=== PATIENT | female | born 1950 | race Caucasian/White ===

== ENCOUNTER → 2019-06-29 07:54 | Outpatient (BNVA) | payer MEDICARE, BC, SELFPAY | PROVIDERS: Family Provider Registered Nurse; PCP Registered Nurse; Visit Provider Anesthesiology | DX: M54.2 Cervicalgia (principal); M25.512 Pain in left shoulder; M54.5 Low back pain; Z79.891 Long term (current) use of opiate analgesic | CPT/HCPCS: 99214 ==

== ENCOUNTER 2019-09-07 22:53 | Observation (INO) | payer MEDICARE, BC, SELFPAY ==
[2019-09-07 22:53] VITALS: BP 133/79; PULSE 96; RESP 24; TEMP 36.7; O2SAT 99; BMI 32.5
--- NOTE | 2019-09-07 23:00 | XR_ITS ---
WS: [id number] CHEST XRAY TECHNIQUE: Portable chest. CLINICAL INFORMATION: cough COMPARISON: January 25, 2016 FINDINGS: Heart: Normal cardiac silhouette. Lungs: Mild chronic emphysematous changes. No acute pulmonary infiltrates. No consolidation or pleura l effusion. Bones: Normal visualized bony structures. XR/XR chest 1V portable [id number] IMPRESSION: No acute chest findings
--- NOTE | 2019-09-07 23:03 | CTR_ITS ---
PROCEDURE INFORMATION: Exam: CT Abdomen And Pelvis With Contrast Exam date and time: 09/07/2019 11:10 PM Age: 69 years old Clinical indication: Abdominal pain; Generalized; Chest pain; Prior surgery; Surgery type: Cholecystectomy TECHNIQUE: Imaging protocol: Computed tomography of the abdomen and pelvis with intravenous contrast. COMPARISON: CR Hip 2-3v LEFT wwo Pelv* [id number] 10/07/2015 9:00 PM FINDINGS: Liver: No enhancing liver mass. Gallbladder and bile ducts: Cholecystectomy. Mild biliary ductal dilatation. Pancreas: No apparent pancreatic disease. Spleen: No splenomegaly. Adrenals: No adrenal mass. Kidneys and ureters: Unremarkable kidneys. Stomach and bowel: Marked sigmoid diverticulosis. No apparent obstruction. Appendix: Normal appendix. Intraperitoneal space: No free air. Vasculature: 1 cm ring calcification along the medial margin of the spleen consistent with a splenic artery aneurysm. No abdominal aortic aneurysm. Lymph nodes: No enlarged nodes. Bladder: Evidence of prior bladder sling surgery. Reproductive: Hysterectomy. Bones/joints: Old compression fractures. Degeneration of several discs. Slight spondylolisthesis at L4-L5. Small residual disc at S1-2. Soft tissues: Developing left inguinal and periumbilical hernias. CT/CT chest abd pel w con* IMPRESSION: No acute findings. Chronic abnormalities detailed above. Radiation Dose CTDIVOL = (mGy): DLP = 2433.3 (mGy-cm)
[2019-09-07 23:10] VITALS: RESP 18; O2SAT 100
[2019-09-07] MEDS: HYDROmorphone 1 mg/mL INJ 1 mL IVP (23:10)
[2019-09-07] MEDS: sodium chloride 0.9% 1,000 ML 100 ML IV (23:15)
[2019-09-07] MEDS: sodium chloride 0.9% 1,000 ML 999 ML IV (23:15)
[2019-09-07 23:25] LABS: Basophils % 0.4 %; Eosinophils % 0.2 %; Hemoglobin 15.2 g/dL (11.5-15.3); Lymphocytes # 1.9 10^3/uL (0.8-4.8); Lymphocytes % 17.8 %; Mean Corpuscular Hemoglobin 28.7 pg (28.0-34.0); Mean Corpuscular Volume 86.8 fL (81-99); Monocytes # 0.6 10^3/uL (0.2-0.9); Monocytes % 5.6 %; Neutrophils # 8.3 10^3/uL (1.8-7.7); Neutrophils % 75.6 %; Nucleated Red Blood Cells % 0 %; Platelet Count 386 10^3/cmm (130-400); Red Cell Distribution Width 12.9 % (12.1-15.1); White Blood Count 10.9 10^3/uL (4.0-10.0)
--- NOTE | 2019-09-07 23:43 | W.ED.ABDPA2 ---
HPI - Abdominal Pain General: Chief Complaint: Abdominal Pain Stated Complaint: Abd Pain Time Seen by Provider: 09/07/19 22:56 History of Present Illness: HPI narrative: Ms. Reagan is a very nice 69-year-old female who comes in complaining of abdominal pain. The pain is cramping and sharp in nature and diffuse in location. She states the pain is similar to her IBS flareups in the past but she has also been vomiting today. Because of the vomiting which is not a normal occurrence for her she elected to come into the hospital. She denies any chest pain. Denies any diarrhea or constipation. She is not had any urinary symptoms or flank pain. She denies any vaginal discharge or bleeding. She is unaware of anything that makes her symptoms better or worse. Associated Symptoms: Reports nausea and vomiting; Denies chills, coffee ground emesis, constipation, GI cramping, diarrhea, dysuria, fever(s), hematochezia, hematuria, hematemesis, melena and syncope Review of Systems General: Reports: other (negative unless marked) Const: Denies: fever, chills, body aches, fatigue, malaise or diaphoresis Eyes: Denies: change in vision or blurry vision ENMT: Denies: throat pain, painful swallowing, hoarseness, ear pain, ear discharge, Change in hearing or nasal discharge Card: Denies: chest pain, palpitations, irregular heart rhythm, syncope, pre-syncope, shortness of breath on exertion or shortness of breath when lying down Resp: Denies: shortness of breath, productive cough, non-productive cough, wheezing, coughing up blood or chest congestion GI: Reports: abdominal pain, nausea and vomiting; Denies: vomiting blood, coffee grounds in vomit, diarrhea, constipation, cramping, blood in stool or black tarry stool : Denies: flank pain, painful urination, urinary frequency, urinary urgency, decreased urine ouput, urinary incontinence or blood in urine Musc: Denies: neck pain, back pain, extremity pain, extremity swelling, joint pain, joint swelling, joint warmth or joint stiffness Skin/Breast: Denies: rash, skin tenderness or yellow skin Neuro: Denies: headache, numbness in extremities, weakness in extremities, changes in sensation, lack of coordination, difficulty walking, dizziness, vertigo or confusion Endo: Denies: excessive thirst, tired all the time, cold intolerance, excessive sweating, flushing or hot flashes Dinesh/Lymph: Denies: easy bruising, easy bleeding, petechiae or enlarged lymph nodes All/Imm: Denies: hives, throat swelling, tongue swelling, facial swelling or acute wheezing PFSH ED PFSH: Medical History (Updated 09/08/19 @ 05:32 by Denise Plunkett) Hypertension Irritable bowel syndrome Spondylolisthesis, cervical region Surgical History (Updated 09/08/19 @ 05:32 by Denise Plunkett) History of carpal tunnel surgery History of cholecystectomy History of hysterectomy History of knee replacement History of lumbar surgery S/P rotator cuff repair Family History Other Cancer Social History Smoking and tobacco status: never smoked Alcohol intake: never Substance/Drug Use: never Household members: spouse Housing: House Physical Exam Const: COMMON NORMALS: no apparent distress, oriented x3, no limitations, healthy appearing and well nourished EXAM LIMITATIONS: no altered mental status GENERAL APPEARANCE: cooperative, well kempt and well developed ORIENTATION/CONSCIOUSNESS: Yes awake HENMT: COMMON NORMALS: normocephalic, head/scalp atraumatic, hearing grossly normal bilaterally, external ears normal, EAC's normal, external nose normal and moist oral mucous membranes HEAD & SCALP: normal to inspection, normocephalic and atraumatic FACE & SINUS: normal facial exam and face symmetric NOSE: external nose normal and nares normal EXTERNAL EAR: Yes external ears normal EXTERNAL AUDITORY CANAL: EAC's normal MOUTH: oral and palatal mucosa normal and tongue normal Eye: COMMON NORMALS: PERRL, EOMs intact bilaterally, conjunctivae normal and no scleral icterus GENERAL EYE: normal appearance of both eyes and normal light reflex CONJUNCTIVA: Yes conjunctivae normal SCLERA: sclerae normal CORNEA: Yes corneas normal PUPIL: Yes PERRL DIRECT OPHTHALMOSCOPY: Yes normal light reflex Neck/C-Spine: COMMON NORMALS: full ROM, no lymphadenopathy, supple, no meningeal signs and no JVD GENERAL: Yes normal visual inspection and Yes trachea midline CERVICAL SPINE: Yes cervical ROM normal Chest: COMMONS NORMALS: inspection of chest normal and palpation of chest normal Resp: COMMON NORMALS: normal respiratory effort, no retractions, no use of accessory muscles and clear to auscultation bilaterally EFFORT & INSPECTION: Yes able to speak in complete sentences AUSCULTATION: clear to auscultation bilaterally Cardio: COMMON NORMALS: no JVD, regular rate, regular rhythm, S1 normal heart sound, S2 normal heart sound, no gallops, no clicks, no murmurs and no rub JUGULAR VENOUS DISTENTION: no JVD RATE: regular rate RHYTHM: regular rhythm HEART SOUNDS: S1 normal and S2 normal GI: COMMON NORMALS: no hepatosplenomegaly and no masses PALPATION: Yes tender (Moderate diffusely), No guarding, No rigid and Yes no hepatosplenomegaly : COMMON NORMALS: Yes no CVA tenderness BLADDER/KIDNEY EXAM: Yes no CVA tenderness Back/Pelvis: COMMON NORMALS: no CVA tenderness, thoracic and lumbar spine normal to inspection, no thoracic nor lumbar tenderness and thoraco-lumbar ROM normal Extremity: COMMON NORMALS: normal to inspection, full ROM, normal capillary refill, no joint enlargement, no clubbing, cyanosis or edema and no calf tenderness Neuro: COMMON NORMALS: oriented x3, CN's II-XII intact bilaterally, moves all extremities, no focal motor deficits and no sensory deficits noted MENINGEAL SIGNS: Yes no meningeal signs Psych: COMMON NORMALS: mental status grossly normal, thought process normal, cooperative, affect normal, speech normal and activity/motor behavior normal APPEARANCE: Yes well kempt SPEECH: Yes normal speech THOUGHT PROCESS: normal thought process Skin: COMMON NORMALS: no rashes or lesions noted, skin turgor normal, no jaundice, no petechiae and no mottling GENERAL SKIN EXAM: no rashes or lesions noted and turgor normal Course Vital Signs: Vital signs: Vital Signs Temperature 98.1 F 09/07/19 22:53 Pulse Rate 96 09/07/19 22:53 Respiratory Rate 18 09/08/19 04:07 Blood Pressure 133/79 09/07/19 22:53 Pulse Oximetry 98 09/08/19 00:06 MDM - Abdominal Pain MDM Narrative: Medical decision making narrative: 0415 - Dianelys is a very nice 69-year-old female who comes in with intractable vomiting and abdominal pain. She does appear mildly dehydrated but feels much better after IV fluids. She milligrams abdominal pain and she is no longer nauseated. I believe the patient likely throwing up her opiate pain pills which she takes on a regular basis may have contributed to a mild withdrawal syndrome. Overall though at this time the patient feels much better and she is insisting upon discharge. She does understand she needs to return if her symptoms change or worsen. Clinically the patient does not appear to have appendicitis, I see no sign of mesenteric ischemia by history or exam or lab. Source of bowel obstruction, abdominal aortic aneurysm or acute coronary syndrome. The patient still does understand that a cause not determined and she may need to return if her symptoms return. 0500 -the patient was getting up to go home and she began to vomit again and have mild pain. She now states she is scared to go home if she is can continue to be sick like this. I reviewed the case with Dr. Sanchez who agrees to admit the patient for intractable vomiting. He will come to evaluate her in the ER. Lab Data: Attestation: I reviewed the patient's lab results. Labs: Lab Results 09/07/19 09/07/19 09/07/19 Range/Units 03:00 03:00 22:42 WBC 10.9 H (4.0-10.0) 10^3/ uL RBC 5.30 (4.1-5.3) 10^6/u L Hgb 15.2 (11.5-15.3) g/dL Hct 46.0 (37.0-47.0) % MCV 86.8 (81-99) fL MCH 28.7 (28.0-34.0) pg MCHC 33.0 (30.0-36.0) g/dL RDW 12.9 (12.1-15.1) % Plt Count 386 (130-400) 10^3/c mm MPV 11.0 H (7.4-10.4) fL Neut % (Auto) 75.6 % Lymph % (Auto) 17.8 % [place] % (Auto) 5.6 % Eos % (Auto) 0.2 % Baso % (Auto) 0.4 % Neut # (Auto) 8.3 H (1.8-7.7) 10^3/u L Lymph # (Auto) 1.9 (0.8-4.8) 10^3/u L [place] # (Auto) 0.6 (0.2-0.9) 10^3/u L Eos # (Auto) 0.0 (0.0-0.8) 10^3/u L Baso # (Auto) 0.0 (0.0-0.1) 10^3/u L Nucleated RBC % (a uto) 0 % Nucleated RBCs # 0.0 /100WBC Specimen Type Sample Site O2 Sat Pulse Oxime try % ABG pH (7.35-7.45) ABG pCO2 (35-45) mmHg ABG pO2 (80.0-100.0) mmH g ABG HCO3 (22-26) mmol/L ABG O2 Saturation ABG Base Excess (-2.0-2.0) mmol/ L Sergio Test Hematocrit (37-47) % Hgb O2 Saturation (95-100) % Carboxyhemoglobin (0.4-20.1) %THgb Methemoglobin (0.4-1.5) % Total Hemoglobin (12-16) g/dL Ionized Calcium (1.1-1.4) mmol/L O2 Delivery Device FiO2 % Specimen Drawn By Sodium 138 (136-145) mmol/L Potassium 3.7 (3.5-5.1) mmol/L Chloride 102 (98-107) mmol/L Carbon Dioxide 21 L (22-29) mmol/L Anion Gap 18.7 (5-19) BUN 14 (8-23) mg/dL Creatinine 0.6 (0.5-0.9) mg/dL GFR Calculation 99.4 (90-130) mL/min Glucose 119 H (65-115) mg/dL Calculated Osmolal ity 283 L (285-295) mOsm/k g Lactic Acid (0.5-2.2) mmol/L Calcium 9.3 (8.5-10.5) mg/dL Magnesium (1.7-2.3) mg/dL Total Bilirubin (0.15-1.2) mg/dL AST (0-32) U/L ALT (0-33) U/L Alkaline Phosphata se (35-105) IU/L Troponin T Baselin e (0-10) ng/mL Troponin T 120 Min [place] (0-10) ng/mL Delta Troponin T (0-10) ABS# Total Protein (6.6-8.7) g/dL Albumin (3.5-5.2) g/dL Globulin (1.3-4.6) g/dL Lipase (13-60) U/L HCG, Qual (Negative) Urine Color (Yellow) Urine Appearance (CLEAR) Urine pH (5-7) Ur Specific Gravit y (1.005-1.030) Urine Protein (Negative) Urine Glucose (UA) (Normal) Urine Ketones (Negative) Urine Blood (Negative) Urine Nitrate (Negative) Urine Bilirubin (NEGATIVE) Urine Urobilinogen (Negative) mg/dL Ur Leukocyte [place] ase (Negative) Urine RBC (0-2) /hpf Urine WBC (0-5) /hpf Ur Squamous Epith Cells (0-5) Urine Bacteria (NONE) Salicylates < 0.3 L (3-10) mg/dL Urine Opiates Scre en (Negative) ng/mL Acetaminophen < 5.0 L (10-30) ug/mL Ur Barbiturates Sc reen (Negative) ng/mL Ur Phencyclidine S crn (Negative) ng/mL Ur Amphetamines Sc reen (Negative) ng/mL U Benzodiazepines Scrn (Negative) ng/mL Urine Cocaine Scre en (Negative) ng/mL U Marijuana (THC) Screen (Negative) ng/mL Ethyl Alcohol < 10 (0-10) mg/dL Serum Ketones Negative (Negative) 09/07/19 09/07/19 09/07/19 Range/Units 23:59 23:59 23:59 WBC (4.0-10.0) 10^3/ uL RBC (4.1-5.3) 10^6/u L Hgb (11.5-15.3) g/dL Hct (37.0-47.0) % MCV (81-99) fL MCH (28.0-34.0) pg MCHC (30.0-36.0) g/dL RDW (12.1-15.1) % Plt Count (130-400) 10^3/c mm MPV (7.4-10.4) fL Neut % (Auto) % Lymph % (Auto) % [place] % (Auto) % Eos % (Auto) % Baso % (Auto) % Neut # (Auto) (1.8-7.7) 10^3/u L Lymph # (Auto) (0.8-4.8) 10^3/u L [place] # (Auto) (0.2-0.9) 10^3/u L Eos # (Auto) (0.0-0.8) 10^3/u L Baso # (Auto) (0.0-0.1) 10^3/u L Nucleated RBC % (a uto) % Nucleated RBCs # /100WBC Specimen Type Sample Site O2 Sat Pulse Oxime try % ABG pH (7.35-7.45) ABG pCO2 (35-45) mmHg ABG pO2 (80.0-100.0) mmH g ABG HCO3 (22-26) mmol/L ABG O2 Saturation ABG Base Excess (-2.0-2.0) mmol/ L Sergio Test Hematocrit (37-47) % Hgb O2 Saturation (95-100) % Carboxyhemoglobin (0.4-20.1) %THgb Methemoglobin (0.4-1.5) % Total Hemoglobin (12-16) g/dL Ionized Calcium (1.1-1.4) mmol/L O2 Delivery Device FiO2 % Specimen Drawn By Sodium 134 L (136-145) mmol/L Potassium 3.8 (3.5-5.1) mmol/L Chloride 95 L (98-107) mmol/L Carbon Dioxide 20 L (22-29) mmol/L Anion Gap 22.8 H (5-19) BUN 15 (8-23) mg/dL Creatinine 0.7 (0.5-0.9) mg/dL GFR Calculation 83.2 L (90-130) mL/min Glucose 154 H (65-115) mg/dL Calculated Osmolal ity 277 L (285-295) mOsm/k g Lactic Acid (0.5-2.2) mmol/L Calcium 9.6 (8.5-10.5) mg/dL Magnesium 1.9 (1.7-2.3) mg/dL Total Bilirubin 0.8 (0.15-1.2) mg/dL AST 22 (0-32) U/L ALT 20 (0-33) U/L Alkaline Phosphata se 68 (35-105) IU/L Troponin T Baselin e 8 (0-10) ng/mL Troponin T 120 Min [place] (0-10) ng/mL Delta Troponin T (0-10) ABS# Total Protein 6.7 (6.6-8.7) g/dL Albumin 4.3 (3.5-5.2) g/dL Globulin 2.4 (1.3-4.6) g/dL Lipase 16 (13-60) U/L HCG, Qual Negative (Negative) Urine Color (Yellow) Urine Appearance (CLEAR) Urine pH (5-7) Ur Specific Gravit y (1.005-1.030) Urine Protein (Negative) Urine Glucose (UA) (Normal) Urine Ketones (Negative) Urine Blood (Negative) Urine Nitrate (Negative) Urine Bilirubin (NEGATIVE) Urine Urobilinogen (Negative) mg/dL Ur Leukocyte [place] ase (Negative) Urine RBC (0-2) /hpf Urine WBC (0-5) /hpf Ur Squamous Epith Cells (0-5) Urine Bacteria (NONE) Salicylates (3-10) mg/dL Urine Opiates Scre en (Negative) ng/mL Acetaminophen (10-30) ug/mL Ur Barbiturates Sc reen (Negative) ng/mL Ur Phencyclidine S crn (Negative) ng/mL Ur Amphetamines Sc reen (Negative) ng/mL U Benzodiazepines Scrn (Negative) ng/mL Urine Cocaine Scre en (Negative) ng/mL U Marijuana (THC) Screen (Negative) ng/mL Ethyl Alcohol (0-10) mg/dL Serum Ketones (Negative) 09/08/19 09/08/19 09/08/19 Range/Units 02:49 03:00 03:00 WBC (4.0-10.0) 10^3/ uL RBC (4.1-5.3) 10^6/u L Hgb (11.5-15.3) g/dL Hct (37.0-47.0) % MCV (81-99) fL MCH (28.0-34.0) pg MCHC (30.0-36.0) g/dL RDW (12.1-15.1) % Plt Count (130-400) 10^3/c mm MPV (7.4-10.4) fL Neut % (Auto) % Lymph % (Auto) % [place] % (Auto) % Eos % (Auto) % Baso % (Auto) % Neut # (Auto) (1.8-7.7) 10^3/u L Lymph # (Auto) (0.8-4.8) 10^3/u L [place] # (Auto) (0.2-0.9) 10^3/u L Eos # (Auto) (0.0-0.8) 10^3/u L Baso # (Auto) (0.0-0.1) 10^3/u L Nucleated RBC % (a uto) % Nucleated RBCs # /100WBC Specimen Type art Sample Site left brachial O2 Sat Pulse Oxime try 98.0 % ABG pH 7.46 H (7.35-7.45) ABG pCO2 31.0 L (35-45) mmHg ABG pO2 84.7 (80.0-100.0) mmH g ABG HCO3 22.4 (22-26) mmol/L ABG O2 Saturation 97 ABG Base Excess -0.4 (-2.0-2.0) mmol/ L Sergio Test pos Hematocrit 42.1 (37-47) % Hgb O2 Saturation 96.7 (95-100) % Carboxyhemoglobin 0.3 L (0.4-20.1) %THgb Methemoglobin 0.5 (0.4-1.5) % Total Hemoglobin 13.8 (12-16) g/dL Ionized Calcium 1.1 (1.1-1.4) mmol/L O2 Delivery Device room air FiO2 21.0 % Specimen Drawn By harkr Sodium 138.0 (136-145) mmol/L Potassium 3.4 L (3.5-5.1) mmol/L Chloride (98-107) mmol/L Carbon Dioxide (22-29) mmol/L Anion Gap (5-19) BUN (8-23) mg/dL Creatinine (0.5-0.9) mg/dL GFR Calculation (90-130) mL/min Glucose 110.0 (65-115) mg/dL Calculated Osmolal ity (285-295) mOsm/k g Lactic Acid 1.0 (0.5-2.2) mmol/L Calcium (8.5-10.5) mg/dL Magnesium (1.7-2.3) mg/dL Total Bilirubin (0.15-1.2) mg/dL AST (0-32) U/L ALT (0-33) U/L Alkaline Phosphata se (35-105) IU/L Troponin T Baselin e (0-10) ng/mL Troponin T 120 Min [place] 10.98 H (0-10) ng/mL Delta Troponin T 2.98 (0-10) ABS# Total Protein (6.6-8.7) g/dL Albumin (3.5-5.2) g/dL Globulin (1.3-4.6) g/dL Lipase (13-60) U/L HCG, Qual (Negative) Urine Color (Yellow) Urine Appearance (CLEAR) Urine pH (5-7) Ur Specific Gravit y (1.005-1.030) Urine Protein (Negative) Urine Glucose (UA) (Normal) Urine Ketones (Negative) Urine Blood (Negative) Urine Nitrate (Negative) Urine Bilirubin (NEGATIVE) Urine Urobilinogen (Negative) mg/dL Ur Leukocyte [place] ase (Negative) Urine RBC (0-2) /hpf Urine WBC (0-5) /hpf Ur Squamous Epith Cells (0-5) Urine Bacteria (NONE) Salicylates (3-10) mg/dL Urine Opiates Scre en (Negative) ng/mL Acetaminophen (10-30) ug/mL Ur Barbiturates Sc reen (Negative) ng/mL Ur Phencyclidine S crn (Negative) ng/mL Ur Amphetamines Sc reen (Negative) ng/mL U Benzodiazepines Scrn (Negative) ng/mL Urine Cocaine Scre en (Negative) ng/mL U Marijuana (THC) Screen (Negative) ng/mL Ethyl Alcohol (0-10) mg/dL Serum Ketones (Negative) 09/08/19 09/08/19 Range/Units 04:05 04:05 WBC (4.0-10.0) 10^3/ uL RBC (4.1-5.3) 10^6/u L Hgb (11.5-15.3) g/dL Hct (37.0-47.0) % MCV (81-99) fL MCH (28.0-34.0) pg MCHC (30.0-36.0) g/dL RDW (12.1-15.1) % Plt Count (130-400) 10^3/c mm MPV (7.4-10.4) fL Neut % (Auto) % Lymph % (Auto) % [place] % (Auto) % Eos % (Auto) % Baso % (Auto) % Neut # (Auto) (1.8-7.7) 10^3/u L Lymph # (Auto) (0.8-4.8) 10^3/u L [place] # (Auto) (0.2-0.9) 10^3/u L Eos # (Auto) (0.0-0.8) 10^3/u L Baso # (Auto) (0.0-0.1) 10^3/u L Nucleated RBC % (a uto) % Nucleated RBCs # /100WBC Specimen Type Sample Site O2 Sat Pulse Oxime try % ABG pH (7.35-7.45) ABG pCO2 (35-45) mmHg ABG pO2 (80.0-100.0) mmH g ABG HCO3 (22-26) mmol/L ABG O2 Saturation ABG Base Excess (-2.0-2.0) mmol/ L Sergio Test Hematocrit (37-47) % Hgb O2 Saturation (95-100) % Carboxyhemoglobin (0.4-20.1) %THgb Methemoglobin (0.4-1.5) % Total Hemoglobin (12-16) g/dL Ionized Calcium (1.1-1.4) mmol/L O2 Delivery Device FiO2 % Specimen Drawn By Sodium (136-145) mmol/L Potassium (3.5-5.1) mmol/L Chloride (98-107) mmol/L Carbon Dioxide (22-29) mmol/L Anion Gap (5-19) BUN (8-23) mg/dL Creatinine (0.5-0.9) mg/dL GFR Calculation (90-130) mL/min Glucose (65-115) mg/dL Calculated Osmolal ity (285-295) mOsm/k g Lactic Acid (0.5-2.2) mmol/L Calcium (8.5-10.5) mg/dL Magnesium (1.7-2.3) mg/dL Total Bilirubin (0.15-1.2) mg/dL AST (0-32) U/L ALT (0-33) U/L Alkaline Phosphata se (35-105) IU/L Troponin T Baselin e (0-10) ng/mL Troponin T 120 Min [place] (0-10) ng/mL Delta Troponin T (0-10) ABS# Total Protein (6.6-8.7) g/dL Albumin (3.5-5.2) g/dL Globulin (1.3-4.6) g/dL Lipase (13-60) U/L HCG, Qual (Negative) Urine Color Yellow (Yellow) Urine Appearance Clear (CLEAR) Urine pH 5 (5-7) Ur Specific Gravit y 1.010 (1.005-1.030) Urine Protein Trace (Negative) Urine Glucose (UA) Norm (Normal) Urine Ketones 2+ H (Negative) Urine Blood 3+ H (Negative) Urine Nitrate Negative (Negative) Urine Bilirubin Neg (NEGATIVE) Urine Urobilinogen 1 H (Negative) mg/dL Ur Leukocyte [place] ase Negative (Negative) Urine RBC 0-4 H (0-2) /hpf Urine WBC 0-4 H (0-5) /hpf Ur Squamous Epith Cells 0-4 H (0-5) Urine Bacteria Trace (NONE) Salicylates (3-10) mg/dL Urine Opiates Scre en Positive H (Negative) ng/mL Acetaminophen (10-30) ug/mL Ur Barbiturates Sc reen Negative (Negative) ng/mL Ur Phencyclidine S crn Negative (Negative) ng/mL Ur Amphetamines Sc reen Negative (Negative) ng/mL U Benzodiazepines Scrn Negative (Negative) ng/mL Urine Cocaine Scre en Negative (Negative) ng/mL U Marijuana (THC) Screen Negative (Negative) ng/mL Ethyl Alcohol (0-10) mg/dL Serum Ketones (Negative) Imaging Data ^: CT Abd/Pel: Radiologist's impression: [address] [address] [address] Scan Report Signed Patient: Dianelys Reagan Unit #: [id number] : 1950 Age/Sex: 69 / F ADM Date: 09/07/19 Loc: ER Room/Bed: Attending Dr: Ordering Provider/Ordering MD: Denise Plunkett DO Date of Service: 09/07/19 Procedure(s): CT chest abd pel w con* Accession Number(s): [id number] Report Number: [id number] PROCEDURE INFORMATION: Exam: CT Abdomen And Pelvis With Contrast Exam date and time: 09/07/2019 11:10 PM Age: 69 years old Clinical indication: Abdominal pain; Generalized; Chest pain; Prior surgery; Surgery type: Cholecystectomy TECHNIQUE: Imaging protocol: Computed tomography of the abdomen and pelvis with intravenous contrast. COMPARISON: CR Hip 2-3v LEFT wwo Pelv* [id number] 10/07/2015 9:00 PM FINDINGS: Liver: No enhancing liver mass. Gallbladder and bile ducts: Cholecystectomy. Mild biliary ductal dilatation. Pancreas: No apparent pancreatic disease. Spleen: No splenomegaly. Adrenals: No adrenal mass. Kidneys and ureters: Unremarkable kidneys. Stomach and bowel: Marked sigmoid diverticulosis. No apparent obstruction. Appendix: Normal appendix. Intraperitoneal space: No free air. Vasculature: 1 cm ring calcification along the medial margin of the spleen consistent with a splenic artery aneurysm. No abdominal aortic aneurysm. Lymph nodes: No enlarged nodes. Bladder: Evidence of prior bladder sling surgery. Reproductive: Hysterectomy. Bones/joints: Old compression fractures. Degeneration of several discs. Slight spondylolisthesis at L4-L5. Small residual disc at S1-2. Soft tissues: Developing left inguinal and periumbilical hernias. CT/CT chest abd pel w con* IMPRESSION: No acute findings. Chronic abnormalities detailed above. Radiation Dose CTDIVOL = (mGy): DLP = 2433.3 (mGy-cm) Dictated By: Stephanie Morales MD Signed By: Stephanie Morales MD Signed Date/Time: 09/08/19320 DD/ 9 EKG Data ^: EKG 1: Attestation: I personally reviewed and interpreted this EKG as follows: EKG interpretation date: 09/08/19 EKG interpretation time: 00:46 Interpretation: Normal sinus rhythm at 64 beats a minute, nonspecific ST and T wave changes. EKG 2: Attestation: I personally reviewed and interpreted this EKG as follows: EKG interpretation date: 09/08/19 EKG interpretation time: 03:41 Interpretation: Sinus bradycardia with a heart rate of 53 beats a minute, normal axis, incomplete right bundle branch block, nonspecific ST and T wave changes. Discharge Plan Discharge Patient Disposition: Home, Self-Care Clinical Impression: Abdominal pain Qualifiers: Abdominal location: generalized Qualified Code(s): R10.84 - Generalized abdominal pain Vomiting Qualifiers: Vomiting type: unspecified Vomiting Intractability: non-intractable Nausea presence: with nausea Qualified Code(s): R11.2 - Nausea with vomiting, unspecified Condition: Stable Prescriptions: New promethazine 25 mg tablet 25 mg PO Q6H PRN (Reason: nausea and vomiting) Qty: 20 RF: 0 No Action hydrocodone-acetaminophen 10-325 mg tablet 1 tab PO TID PRN (Reason: pain) 30 Days Qty: 90 RF: 0 hydrocodone-acetaminophen 10-325 mg tablet 1 tab PO TID PRN (Reason: pain) 30 Days Qty: 90 RF: 0 baclofen 20 mg tablet 20 mg PO BID PRN (Reason: spasms) 30 Days Qty: 60 RF: 1 tizanidine 4 mg tablet 8 mg PO .BEDTIME PRN (Reason: muscle spasticity) 30 Days Qty: 60 RF: 1 lisinopril-hydrochlorothiazide 20-12.5 mg tablet 1 tab PO DAILY Qty: 30 RF: 1 pantoprazole 40 mg tablet,delayed release (DR/EC) 40 mg PO DAILY Qty: 90 RF: 1 verapamil 240 mg capsule,ext rel. pellets 24 hr 240 mg PO DAILY Qty: 90 RF: 0 Discharge Orders: Discharge Order (Routine); Ordered 09/08/19 Ordered By: Denise Plunkett Referrals: Emanuel Lucia FNP [Primary Care Provider] - 1-3 days Discharge Diet: Advance as tolerated Discharge Activity: Increase activity as tolerated Patient Instructions: Abdominal Pain (ED) Activity Restrictions/Additional Instructions: Please return to the ER immediately for any of the signs or symptoms listed on your discharge instruction sheets, worsening/changing of your symptoms, you are not getting better as quickly as expected, or for ANY other cause or concerns. If your symptoms return or worsen in any way please return to the ER immediately for recheck and for further evaluation and care. Follow a clear liquid diet and slowly advance it as you can tolerate back to a normal diet. Coding Level of Care Code ED Financial Report Service Sales Agent for Chg Fwd Exam Comprehensive
[2019-09-08] VITALS (8 sets, daily range): BP systolic 100–128; BP diastolic 62–76; PULSE 71–100; RESP 16–18; TEMP 36.7–37; O2SAT 96–99
[2019-09-08] MEDS: HYDROmorphone 1 mg/mL INJ 1 mL IVP ×2 (00:06→04:07)
[2019-09-08 00:22] LABS: HCG, Serum Qual Negative (Negative)
[2019-09-08 00:29] LABS: Alanine Aminotransferase 20 U/L (0-33); Albumin Level 4.3 g/dL (3.5-5.2); Alkaline Phosphatase 68 IU/L (35-105); Anion Gap 22.8 (5-19); Aspartate Amino Transferase 22 U/L (0-32); Blood Urea Nitrogen 15 mg/dL (8-23); Calcium 9.6 mg/dL (8.5-10.5); Carbon Dioxide 20 mmol/L (22-29); Chloride 95 mmol/L (98-107); Creatinine Clr Calc Pharmacy 76.7448; Globulin 2.4 g/dL (1.3-4.6); Glomerular Filtration Rate 83.2 mL/min (90-130); Glucose 154 mg/dL (65-115); Lipase 16 U/L (13-60); Magnesium 1.9 mg/dL (1.7-2.3); Osmolality Calculated 277 mOsm/kg (285-295); Potassium 3.8 mmol/L (3.5-5.1); Sodium 134 mmol/L (136-145); Total Bilirubin 0.8 mg/dL (0.15-1.2); Total Protein 6.7 g/dL (6.6-8.7)
[2019-09-08 00:32] LABS: Troponin(5th) Baseline 8 ng/mL (0-10)
[2019-09-08] MEDS: sodium chloride 0.9% 1,000 ML 999 ML IV ×2 (00:45→03:11)
--- NOTE | 2019-09-08 00:59 | ECG_ITS ---
Measurements Intervals [place] Rate: 64 P: 62 SD: 192 QRS: -14 QRSD: 88 T: 31 QT: 455 QTc: 471 SINUS RHYTHM Compared to ECG 01/25/2016 15:08:19 ST (T wave) deviation no longer present Electronically Signed On 09-08-2019 14:18:33 CDT by Elisa Glaser M.D. [id number]
[2019-09-08] MEDS: iohexol 300 mg/mL 100 mL Btl IV (02:00)
[2019-09-08] MEDS: ondansetron 2 mg/ML SDV 2 mL 4 MG IVP ×2 (02:29→13:13)
[2019-09-08 03:01] LABS: Base Excess ABG -0.4 mmol/L (-2.0-2.0); HCO3 ABG 22.4 mmol/L (22-26); PO2 ABG 84.7 mmHg (80.0-100.0)
[2019-09-08 03:02] LABS: Potassium Level - ABG 3.4 mmol/L (3.5-5.0)
[2019-09-08 03:03] LABS: Arterial Blood Gas Hematocrit 42.1 % (37-47)
[2019-09-08 03:04] LABS: Carboxyhemoglobin 0.3 %THgb (0.4-20.1); Methemoglobin 0.5 % (0.4-1.5)
[2019-09-08 03:05] LABS: HGB O2 Sat 96.7 % (95-100); Ionized Calcium Level - ABG 1.1 mmol/L (1.1-1.4); Total Hemoglobin 13.8 g/dL (12-16)
[2019-09-08 03:17] LABS: Ketone (Acetest) Serum Negative (Negative)
[2019-09-08 03:33] LABS: Troponin 5 2HR 10.98 ng/mL (0-10); Troponin 5 2HR Delta 2.98 ABS# (0-10)
[2019-09-08 03:53] LABS: Anion Gap 18.7 (5-19); Blood Urea Nitrogen 14 mg/dL (8-23); Calcium 9.3 mg/dL (8.5-10.5); Carbon Dioxide 21 mmol/L (22-29); Chloride 102 mmol/L (98-107); Creatinine Clr Calc Pharmacy 76.7448; Glomerular Filtration Rate 99.4 mL/min (90-130); Glucose 119 mg/dL (65-115); Osmolality Calculated 283 mOsm/kg (285-295); Potassium 3.7 mmol/L (3.5-5.1); Sodium 138 mmol/L (136-145)
[2019-09-08] MEDS: metoclopramide 5 mg/mL SDV 2 mL 10 MG IV (04:08)
[2019-09-08] MEDS: ketorolac 30 mg/mL INJ 10 MG IVP (04:08)
[2019-09-08 04:11] LABS: Acetaminophen < 5.0 ug/mL (10-30); Alcohol Level < 10 mg/dL (0-10); Salicylate < 0.3 mg/dL (3-10)
[2019-09-08 04:28] LABS: Amphetamines Screen Urine Negative (Negative); Bacteria Urine TRACE; Barbiturates Screen Urine Negative (Negative); Benzodiazepines Screen Urine Negative (Negative); Bilirubin Urine Neg (NEGATIVE); Blood Urine 3+ (Negative); Cocaine Screen Urine Negative (Negative); Glucose Urine UA Norm (Normal); Ketones Urine 2+ (Negative); Leukocyte Esterase Urine Negative (Negative); Nitrate Urine Negative (Negative); Opiate Screen Urine Positive (Negative); PCP Screen Urine Negative (Negative); Protein Urine Trace (Negative); RBC Urine 0-4 /hpf (0-2); Squamous Epithelial Cell Urine 0-4 (0-5); THC Screen Urine Negative (Negative); Urine Appearance Clear (CLEAR); Urine Color Yellow (Yellow); Urobilinogen Urine 1 mg/dL (Negative); WBC Urine 0-4 /hpf (0-5); pH Urine 5 (5-7)
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
[2019-09-08] MEDS: promethazine 25 mg/mL SDV 1 mL IM (05:11)
[2019-09-08] MEDS: enoxaparin 40 mg/0.4 mL Syringe SUBCUT (07:43)
[2019-09-08] MEDS: sodium chloride 0.9% 1,000 ML 100 ML IV (07:44)
[2019-09-08] MEDS: metoclopramide 5 mg/mL SDV 2 mL IVP ×2 (07:44→14:24)
--- NOTE | 2019-09-08 11:14 | PC.CHAP ---
Pastoral Care Encounter/Spiritual Assessment Type of Contact [] Declined bulk system operator visit [] Patient/Family/Request visit [] Outpatient visit [] Follow-up visit [] Physician referral [] Code/Alert [x] Routine visit [] Staff referral [] Actively dying [] Patient sleeping [] Family support [] [] Out of room [] Palliative care [] [] Receiving care in room [] Pre-surgical visit [] Trauma [] Long length of stay [] ICU visit [] Other: Relational/Emotional Strength [x] Patient feels connected with others/family/visitors/staff [] Distress [] Loneliness/isolation [] Abandonment Spirituality of Patient [x] Person of Laura [] Attends Confucianism of their Laura [x] Believes in Prayer [x] Reads Bible or Zoroastrian materials [] There are Spiritual issues to be addressed Cane Weigher Interventions [x] Prayer [x] Active listening [x] Non-anxious presence [x] Spiritual/emotional support [] Crisis/trauma care [] Spiritual counseling [] Bereavement support [] Provided bereavement packet [] Provided Bible/devotional materials [] Provided toy/stuffed animal, coloring book to patient or family member [] Provided Communion [] Anointing/Marvell [] Salvation [x] Completed spiritual assessment [] Other: Impact on Illness or Injury [] Angry [] Fearful [] Anxious [] Often cries [] Exhaustion [] Unable to work [] Unable to attend pentecostal [] Unable to walk/stand [] Unable to read [] Unable to drive [] Unable to eat/drink [] Unable to sleep [] Unable to be with family [] Patient intubated [x] Other:n/a Summary Time spent with patient 7 minutes
[2019-09-08] MEDS: HYDROcodone-acetaminophen 10-325 mg Tablet 1 TAB PO (14:24)
--- NOTE | 2019-09-08 15:49 | PM.DCS ---
Discharge Providers Date of Admission: 09/08/19 05:35 Date of Discharge: September 08, 2019 Attending Provider at Admission: Frederick Sanchez MD Attending Provider at Discharge: Ayla Adrian MD Primary Care Provider: DOMINIC Frost Diagnoses at Discharge Discharge Diagnosis (1) Abdominal pain: Status: Acute Qualifiers: Abdominal location: generalized Qualified Code(s): R10.84 - Generalized abdominal pain (2) Irritable bowel syndrome: Status: Acute Reason for Visit Reason for Visit: Reason For Visit: INTRACTABLE NAUSEA/VOMITING Hospital Course Discharge Summary: Dianelys Reagan is a 69 year old female who carries diagnosis of irritable bowel syndrome came in with chief complaint of nausea, vomiting and abdominal pain. She was noted to be mildly dehydrated and received IV fluids. Nausea improved significantly with Zofran and metoclopramide. Since this morning she has not had any more episodes of vomiting and is feeling quite well. She has not had a bowel movement yet, however states this is not new for her. CT of the abdomen was unremarkable. Cardiac enzymes were negative. There were no acute ST-T changes on her EKG. Given that she has had significant improvement and appears better hydrated, we will proceed with discharging the patient. Physical Exam Narrative: EXAM NARRATIVE: GEN: Awake, alert and oriented, no acute distress CVS: S1S2 N RS: CTA B/L Abd: Soft, nt/nd , bs+ RESERVATIONS SPECIALIST: no focal neuro deficits Discharge Data Data Completed and Pending: Completed Studies During Hospitalization Category Date Time Status CT chest abd pel w con* Urgent Cat Scan 09/07/19 23:03 Completed XR chest 1V steve ble [id number] Stat Exams 09/07/19 23:00 Completed Pending at discharge Category Date Time Status Arterial Blood Ga s Full Routine Lab 09/08/19 02:49 Results Labs from last 24 hours 09/08/19 09/08/19 09/08/19 04:05 04:05 03:00 WBC RBC Hgb Hct MCV MCH MCHC RDW Plt Count MPV Neut % (Auto) Lymph % (Auto) [place] % (Auto) Eos % (Auto) Baso % (Auto) Neut # (Auto) Lymph # (Auto) [place] # (Auto) Eos # (Auto) Baso # (Auto) Nucleated RBC % (a uto) Nucleated RBCs # Specimen Type Sample Site O2 Sat Pulse Oxime try ABG pH ABG pCO2 ABG pO2 ABG HCO3 ABG O2 Saturation ABG Base Excess Sergio Test Hematocrit Hgb O2 Saturation Carboxyhemoglobin Methemoglobin Total Hemoglobin Ionized Calcium O2 Delivery Device FiO2 Specimen Drawn By Sodium Potassium Chloride Carbon Dioxide Anion Gap BUN Creatinine GFR Calculation Glucose Calculated Osmolal ity Lactic Acid 1.0 Calcium Magnesium Total Bilirubin AST ALT Alkaline Phosphata se Troponin T Baselin e Troponin T 120 Min [place] Troponin T Total Protein Albumin Globulin Lipase HCG, Qual Urine Color Yellow Urine Appearance Clear Urine pH 5 Ur Specific Gravit y 1.010 Urine Protein Trace Urine Glucose (UA) Norm Urine Ketones 2+ H Urine Blood 3+ H Urine Nitrate Negative Urine Bilirubin Neg Urine Urobilinogen 1 H Ur Leukocyte [place] ase Negative Urine RBC 0-4 H Urine WBC 0-4 H Ur Squamous Epith Cells 0-4 H Urine Bacteria Trace Salicylates Urine Opiates Scre en Positive H Acetaminophen Ur Barbiturates Sc reen Negative Ur Phencyclidine S crn Negative Ur Amphetamines Sc reen Negative U Benzodiazepines Scrn Negative Urine Cocaine Scre en Negative U Marijuana (THC) Screen Negative Ethyl Alcohol Serum Ketones 09/08/19 09/08/19 09/07/19 03:00 02:49 23:59 WBC RBC Hgb Hct MCV MCH MCHC RDW Plt Count MPV Neut % (Auto) Lymph % (Auto) [place] % (Auto) Eos % (Auto) Baso % (Auto) Neut # (Auto) Lymph # (Auto) [place] # (Auto) Eos # (Auto) Baso # (Auto) Nucleated RBC % (a uto) Nucleated RBCs # Specimen Type art Sample Site left brachial O2 Sat Pulse Oxime try 98.0 ABG pH 7.46 H ABG pCO2 31.0 L ABG pO2 84.7 ABG HCO3 22.4 ABG O2 Saturation 97 ABG Base Excess -0.4 Sergio Test pos Hematocrit 42.1 Hgb O2 Saturation 96.7 Carboxyhemoglobin 0.3 L Methemoglobin 0.5 Total Hemoglobin 13.8 Ionized Calcium 1.1 O2 Delivery Device room air FiO2 21.0 Specimen Drawn By harkr Sodium 138.0 Potassium 3.4 L Chloride Carbon Dioxide Anion Gap BUN Creatinine GFR Calculation Glucose 110.0 Calculated Osmolal ity Lactic Acid Calcium Magnesium Total Bilirubin AST ALT Alkaline Phosphata se Troponin T Baselin e 8 Troponin T 120 Min [place] 10.98 H Delta Troponin T 2.98 Total Protein Albumin Globulin Lipase HCG, Qual Urine Color Urine Appearance Urine pH Ur Specific Gravit y Urine Protein Urine Glucose (UA) Urine Ketones Urine Blood Urine Nitrate Urine Bilirubin Urine Urobilinogen Ur Leukocyte Enid ase Urine RBC Urine WBC Ur Squamous Epith Cells Urine Bacteria Salicylates Urine Opiates Scre en Acetaminophen Ur Barbiturates Sc reen Ur Phencyclidine S crn Ur Amphetamines Sc reen U Benzodiazepines Scrn Urine Cocaine Scre en U Marijuana (THC) Screen Ethyl Alcohol Serum Ketones 09/07/19 09/07/19 09/07/19 23:59 23:59 22:42 WBC 10.9 H RBC 5.30 Hgb 15.2 Hct 46.0 MCV 86.8 MCH 28.7 MCHC 33.0 RDW 12.9 Plt Count 386 MPV 11.0 H Neut % (Auto) 75.6 Lymph % (Auto) 17.8 [place] % (Auto) 5.6 Eos % (Auto) 0.2 Baso % (Auto) 0.4 Neut # (Auto) 8.3 H Lymph # (Auto) 1.9 [place] # (Auto) 0.6 Eos # (Auto) 0.0 Baso # (Auto) 0.0 Nucleated RBC % (a uto) 0 Nucleated RBCs # 0.0 Specimen Type Sample Site O2 Sat Pulse Oxime try ABG pH ABG pCO2 ABG pO2 ABG HCO3 ABG O2 Saturation ABG Base Excess Sergio Test Hematocrit Hgb O2 Saturation Carboxyhemoglobin Methemoglobin Total Hemoglobin Ionized Calcium O2 Delivery Device FiO2 Specimen Drawn By Sodium 134 L Potassium 3.8 Chloride 95 L Carbon Dioxide 20 L Anion Gap 22.8 H BUN 15 Creatinine 0.7 GFR Calculation 83.2 L Glucose 154 H Calculated Osmolal ity 277 L Lactic Acid Calcium 9.6 Magnesium 1.9 Total Bilirubin 0.8 AST 22 ALT 20 Alkaline Phosphata se 68 Troponin T Baselin e Troponin T 120 Min [place] Troponin T Total Protein 6.7 Albumin 4.3 Globulin 2.4 Lipase 16 HCG, Qual Negative Urine Color Urine Appearance Urine pH Ur Specific Gravit y Urine Protein Urine Glucose (UA) Urine Ketones Urine Blood Urine Nitrate Urine Bilirubin Urine Urobilinogen Ur Leukocyte Enid ase Urine RBC Urine WBC Ur Squamous Epith Cells Urine Bacteria Salicylates Urine Opiates Scre en Acetaminophen Ur Barbiturates Sc reen Ur Phencyclidine S crn Ur Amphetamines Sc reen U Benzodiazepines Scrn Urine Cocaine Scre en U Marijuana (THC) Screen Ethyl Alcohol Serum Ketones 09/07/19 09/07/19 03:00 03:00 WBC RBC Hgb Hct MCV MCH MCHC RDW Plt Count MPV Neut % (Auto) Lymph % (Auto) [place] % (Auto) Eos % (Auto) Baso % (Auto) Neut # (Auto) Lymph # (Auto) [place] # (Auto) Eos # (Auto) Baso # (Auto) Nucleated RBC % (a uto) Nucleated RBCs # Specimen Type Sample Site O2 Sat Pulse Oxime try ABG pH ABG pCO2 ABG pO2 ABG HCO3 ABG O2 Saturation ABG Base Excess Sergio Test Hematocrit Hgb O2 Saturation Carboxyhemoglobin Methemoglobin Total Hemoglobin Ionized Calcium O2 Delivery Device FiO2 Specimen Drawn By Sodium 138 Potassium 3.7 Chloride 102 Carbon Dioxide 21 L Anion Gap 18.7 BUN 14 Creatinine 0.6 GFR Calculation 99.4 Glucose 119 H Calculated Osmolal ity 283 L Lactic Acid Calcium 9.3 Magnesium Total Bilirubin AST ALT Alkaline Phosphata se Troponin T Baselin e Troponin T 120 Min [place] Troponin T Total Protein Albumin Globulin Lipase HCG, Qual Urine Color Urine Appearance Urine pH Ur Specific Gravit y Urine Protein Urine Glucose (UA) Urine Ketones Urine Blood Urine Nitrate Urine Bilirubin Urine Urobilinogen Ur Leukocyte [place] ase Urine RBC Urine WBC Ur Squamous Epith Cells Urine Bacteria Salicylates < 0.3 L Urine Opiates Scre en Acetaminophen < 5.0 L Ur Barbiturates Sc reen Ur Phencyclidine S crn Ur Amphetamines Sc reen U Benzodiazepines Scrn Urine Cocaine Scre en U Marijuana (THC) Screen Ethyl Alcohol < 10 Serum Ketones Negative Vitals: Last Vital Signs Temp 98.6 F 09/08/19 11:20 Pulse 100 09/08/19 11:20 Resp 16 09/08/19 11:20 BP 100/62 09/08/19 11:20 Pulse Ox 96 09/08/19 11:20 Discharge Plan Discharge Patient Disposition: Home, Self-Care Condition: Stable Prescriptions: New promethazine 25 mg tablet 25 mg PO Q6H PRN (Reason: nausea and vomiting) Qty: 20 RF: 0 Zofran 4 mg tablet 4 mg PO Q12H 3 Days Qty: 6 RF: 0 Reglan 10 mg tablet 10 mg PO Q8H PRN (Reason: nausea and vomiting) Qty: 30 RF: 0 Continued hydrocodone-acetaminophen 10-325 mg tablet 1 tab PO TID PRN (Reason: pain) 30 Days Qty: 90 RF: 0 baclofen 20 mg tablet 20 mg PO BID PRN (Reason: spasms) 30 Days Qty: 60 RF: 1 tizanidine 4 mg tablet 8 mg PO .BEDTIME PRN (Reason: muscle spasticity) 30 Days Qty: 60 RF: 1 lisinopril-hydrochlorothiazide 20-12.5 mg tablet 1 tab PO DAILY Qty: 30 RF: 1 pantoprazole 40 mg tablet,delayed release (DR/EC) 40 mg PO DAILY Qty: 90 RF: 1 verapamil 240 mg capsule,ext rel. pellets 24 hr 240 mg PO DAILY Qty: 90 RF: 0 Discontinued hydrocodone-acetaminophen 10-325 mg tablet 1 tab PO TID PRN (Reason: pain) 30 Days Qty: 90 RF: 0 Discharge Orders: Discharge Order (Routine); Ordered 09/08/19 Ordered By: Ayla Adrian Referrals: Emanuel Lucia FNP [Primary Care Provider] - 1-3 days Discharge Diet: Advance as tolerated Discharge Activity: Increase activity as tolerated Patient Instructions: Abdominal Pain (ED) Activity Restrictions/Additional Instructions: Please return to the ER immediately for any of the signs or symptoms listed on your discharge instruction sheets, worsening/changing of your symptoms, you are not getting better as quickly as expected, or for ANY other cause or concerns. If your symptoms return or worsen in any way please return to the ER immediately for recheck and for further evaluation and care. Follow a clear liquid diet and slowly advance it as you can tolerate back to a normal diet. Discharge Attestations Time Spent in Discharge Care*: less than 30 min Quality Metrics Clinical Quality Measures During this hospital stay, did patient experience: None Coding Level of Care Code Acute Site Superintendent for Chg Fwd Diagnoses Abdominal pain R10.84 Abdominal location: generalized Irritable bowel syndrome K58.9
[2019-09-09 13:49] LABS: ABG PH Result 7.47 (7.35-7.45); Alveolar-Arterial Oxygen Gradi 25.4 mmHg (5-10); Blood Gas Sample Site Brachial, left; Blood Gas Sample Type Arterial; Oxygen Device ROOM AIR; Oxygen Saturation ABG 97.5
== END 2019-09-08 18:16 | disposition home or self-care (01) ==
LOC: ER 09-08 06:04 → MEDSURG 09-08 07:33
PROVIDERS: Admitting Provider Internal Medicine; Emergency Provider Emergency Medicine; Family Provider Registered Nurse; PCP Registered Nurse; Visit Provider Student in an Organized Health Care Education/Training Program
DX: K58.9 Irritable bowel syndrome, unspecified (principal); R10.84 Generalized abdominal pain; I10 Essential (primary) hypertension
CPT/HCPCS: 12345; 36415; 36600; 71045; 71260; 74177; 80048; 80051; 80053; 80306; 80307; 81001; 82009; 82810; 83605; 83690; 83735; 83986; 84484; 84703; 85025; 93005; 96360; 96361; 96372; 96374; 96375; 99283; 99285; G0378; J1170; J1650; J1885; J1980; J2405; J2550; J2765; J7030; Q9967

== ENCOUNTER → 2019-10-21 10:06 | Outpatient (BNVA) | payer MEDICARE, BC, SELFPAY | PROVIDERS: Family Provider Registered Nurse; PCP Registered Nurse; Visit Provider Anesthesiology | DX: M54.2 Cervicalgia (principal); M25.512 Pain in left shoulder; M54.5 Low back pain; Z79.891 Long term (current) use of opiate analgesic | CPT/HCPCS: 99214 ==

== ENCOUNTER → 2019-12-29 10:37 | Outpatient (BNVA) | payer MEDICARE, BC, SELFPAY | PROVIDERS: Family Provider Registered Nurse; PCP Registered Nurse; Visit Provider Anesthesiology | DX: M54.2 Cervicalgia (principal); M54.5 Low back pain; Z79.891 Long term (current) use of opiate analgesic | CPT/HCPCS: 99213; 99214 ==

== ENCOUNTER → 2020-03-07 14:34 | Outpatient (BNVA) | payer MEDICARE, BC, SELFPAY | PROVIDERS: Family Provider Registered Nurse; PCP Registered Nurse; Visit Provider Anesthesiology | DX: M54.2 Cervicalgia (principal); M54.5 Low back pain; M54.9 Dorsalgia, unspecified; Z79.891 Long term (current) use of opiate analgesic | CPT/HCPCS: 99213; 99214 ==

== ENCOUNTER → 2020-05-02 14:02 | Outpatient (BNVA) | payer MEDICARE, BC, SELFPAY | PROVIDERS: Family Provider Registered Nurse; PCP Registered Nurse; Visit Provider Anesthesiology | DX: M54.2 Cervicalgia (principal); M25.511 Pain in right shoulder; Z79.891 Long term (current) use of opiate analgesic | CPT/HCPCS: 99213 ==

== ENCOUNTER → 2020-06-11 11:19 | Outpatient (BNVA) | payer MEDICARE, BC, SELFPAY | PROVIDERS: Family Provider Registered Nurse; PCP Registered Nurse; Visit Provider Registered Nurse | DX: I10 Essential (primary) hypertension (principal); E78.2 Mixed hyperlipidemia; R11.0 Nausea | CPT/HCPCS: 80053; 80061; 85025 ==

== ENCOUNTER → 2020-06-28 13:44 | Outpatient (BNVA) | payer MEDICARE, OTHER, SELFPAY | PROVIDERS: Family Provider Registered Nurse; PCP Registered Nurse; Visit Provider Anesthesiology | DX: M54.2 Cervicalgia (principal); M25.512 Pain in left shoulder; Z79.891 Long term (current) use of opiate analgesic | CPT/HCPCS: 99213 ==

== ENCOUNTER → 2020-09-12 09:47 | Outpatient (BNVA) | payer MEDICARE, BC, SELFPAY | PROVIDERS: Family Provider Registered Nurse; PCP Family Medicine; Visit Provider Nurse Practitioner | DX: M54.2 Cervicalgia (principal); M54.5 Low back pain; Z79.891 Long term (current) use of opiate analgesic | CPT/HCPCS: 99212; 99213 ==

== ENCOUNTER → 2020-11-16 10:31 | Outpatient (BNVA) | payer MEDICARE, BC, SELFPAY | PROVIDERS: Family Provider Registered Nurse; PCP Registered Nurse; Visit Provider Nurse Practitioner | DX: M54.5 Low back pain (principal); M54.2 Cervicalgia; Z79.891 Long term (current) use of opiate analgesic | CPT/HCPCS: 99212 ==

== ENCOUNTER 2020-12-19 09:50 | Emergency (ER) | payer SELFPAY ==
[2020-12-19 09:57] VITALS: BP 135/105; PULSE 85; RESP 16; TEMP 36.3; O2SAT 97; BMI 37.1
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
[2020-12-19 10:18] VITALS: RESP 18; O2SAT 97
[2020-12-19] MEDS: HYDROmorphone 1 mg/mL INJ 1 mL SUBCUT (10:18)
[2020-12-19 10:22] VITALS: BP 134/75; PULSE 74; RESP 18; O2SAT 97
[2020-12-19 11:18] VITALS: BP 121/78; PULSE 91; O2SAT 97
== END 2020-12-19 11:20 | disposition home or self-care (01) ==
PROVIDERS: Emergency Provider Physician Assistant; PCP Registered Nurse
DX: G89.11 Acute pain due to trauma (principal); M25.512 Pain in left shoulder; V89.2XXA Person injured in unspecified motor-vehicle accident, traffic, initial encounter; I10 Essential (primary) hypertension
CPT/HCPCS: 72125; 73030; 96372; 99283; J1170

== ENCOUNTER → 2021-02-12 11:22 | Outpatient (BNVA) | payer MEDICARE, BC, SELFPAY | PROVIDERS: PCP Registered Nurse; Visit Provider Anesthesiology | DX: G89.29 Other chronic pain (principal); M54.50 Low back pain, unspecified; M54.2 Cervicalgia; Z79.891 Long term (current) use of opiate analgesic | CPT/HCPCS: 99214 ==

== ENCOUNTER → 2021-06-04 14:11 | Outpatient (BNVA) | payer MEDICARE, BC, SELFPAY | PROVIDERS: PCP Registered Nurse; Visit Provider Anesthesiology | DX: G89.29 Other chronic pain (principal); M54.2 Cervicalgia; M54.50 Low back pain, unspecified; Z79.891 Long term (current) use of opiate analgesic | CPT/HCPCS: 99214 ==

== ENCOUNTER 2024-07-25 16:27 | Inpatient (IN) | payer MEDICARE, SELFPAY ==
[2024-07-25] VITALS (11 sets, daily range): BP systolic 100–158; BP diastolic 56–83; PULSE 96–126; RESP 20; TEMP 36.5–36.6; O2SAT 93–100; BMI 28.0
--- NOTE | 2024-07-25 16:33 | CTR_ITS ---
PROCEDURE INFORMATION: Exam: CT Abdomen And Pelvis With Contrast Exam date and time: 07/25/2024 7:24 PM Age: 74 years old Clinical indication: Abdominal pain; Localized; Left lower quadrant (llq); Additional info: Llq abd pain TECHNIQUE: Imaging protocol: Computed tomography of the abdomen and pelvis with contrast. Radiation optimization: All CT scans at this facility use at least one of these dose optimization techniques: automated exposure control; mA and/or kV adjustment per patient size (includes targeted exams where dose is matched to clinical indication); or iterative reconstruction. Contrast material: OMNI 350; Contrast volume: 100 ml; Contrast route: INTRAVENOUS (IV); COMPARISON: CT chest abd pel w con* 09/08/2019 2:00 AM RADIATION DOSE METRICS: Total DLP (mGy-cm): 1048.57 FINDINGS: Liver: Normal. No mass. Gallbladder and biliary ducts: Normal. No calcified stones. No ductal dilation. Pancreas: Normal. No ductal dilation. Spleen: Normal. No splenomegaly. Adrenal glands: Normal. No mass. Kidneys and ureters: Normal. No hydronephrosis. Stomach and bowel: Sigmoid colon diverticulitis with a localized collection of air and fluid measuring up to at least 6.5 cm seen along the mid sigmoid colon likely reflecting a localized contained perforation, new compared to prior exam. Appendix: No evidence of appendicitis. Intraperitoneal space: Unremarkable. No free air. No significant fluid collection. Vasculature: Unremarkable. No abdominal aortic aneurysm. Lymph nodes: Unremarkable. No enlarged lymph nodes. Urinary bladder: Air in the urinary bladder may be iatrogenic. Reproductive: Unremarkable as visualized. Bones/joints: Unremarkable. No acute fracture. Soft tissues: Unremarkable. CT/CT abdomen pelvis w con* [id number] IMPRESSION: 1. Sigmoid colon diverticulitis with a localized collection of air and fluid measuring up to at least 6.5 cm seen along the mid sigmoid colon likely reflecting a localized contained perforation, new compared to prior exam. 2. Air in the urinary bladder may be iatrogenic.
--- NOTE | 2024-07-25 16:34 | ED_ITS ---
HPI - Abdominal Pain 2 General: Chief Complaint: Abdominal Pain Stated Complaint: abd pain Time Seen by Provider: 07/25/24 16:30 Source: patient and EMS Mode of arrival: EMS Limitations: no limitations History of Present Illness: 74-year-old female states she been havin g left lower quadrant abdominal pain over the last 4 to 5 days she states she has had a history diverticulitis in the past and this feels similar states pains been sharp in nature rates it a 6 out of 10 she had some vomiting and diarrhea denies any fevers. Associated Symptoms: Reports diarrhea, nausea and vomiting; Denies chills and fever(s) Related Data Previous Rx's ?Medication ?Instructions ?Recorded metoclopramide HCl 10 mg tablet 10 mg PO Q8H PRN nause a and 06/11/20 (Reglan) vomiting #30 tabs ondansetron HCl 4 mg tablet 4 mg PO Q8H #30 tabs 06/11 baclofen 20 mg tablet 20 mg PO BID PRN spasms 30 d ays 06/04/21 #60 tabs hydrocodone 10 mg-acetaminophen 1 tab PO TID PRN pain 30 days #90 06/04/21 325 mg tablet tabs lisinopril 20 See Rx Instructions .Route 0 12/16/21 mg-hydrochlorothiazide 12.5 mg .COMPLEX #60 tabs tablet pantoprazole 40 mg tablet,delayed See Rx Instructions .Route 12/16/21 release .COMPLEX #60 tabs simvastatin 40 mg tablet See Rx Instructions .Route 0 12/16/21 .COMPLEX #60 tabs verapamil 120 mg tablet,extended See Rx Instructions . Route 12/16/21 release .COMPLEX #60 tabs hydrocodone 10 mg-acetaminophen 1 tab PO .q4 PRN pain 5 days #30 05/15/22 325 mg tablet tabs tizanidine 4 mg tablet See Rx Instructions .Route 0 12/23/22 .COMPLEX #60 tabs Allergies Allergy/AdvReac Type Severity Reaction Status Date / Time morphine Allergy Unknown HIVES Verified 05/15/22 09:50 oxycodone Allergy Unknown HIVES Verified 05/15/22 09:50 Review of Systems 2 Const: Denies: fever(s), chills, body aches or change in appetite ENMT: Denies: throat pain or dental pain Card: Denies: chest pain Resp: Denies: dyspnea GI: Reports: abdominal pain, nausea, vomiting and diarrhea Musc: Denies: neck pain or back pain Skin/Breast: Denies: rash Neuro: Denies: headache(s) PFSH ED 2 PFSH: Medical History Chronic neck and back pain Chronic nausea Encounter for long-term opiate analgesic use Hypertension Irritable bowel syndrome Spondylolisthesis, cervical region Surgical History History of cholecystectomy History of lumbar surgery History of carpal tunnel surgery History of knee replacement S/P rotator cuff repair History of hysterectomy Family History Other Cancer Social History Smoking and tobacco/nicotine status: never used tobacco/nicotine Second hand smoke exposure: No Alcohol intake: never Substance/Drug Use: never Household members: spouse Housing: House Physical Exam 2 Const: COMMON NORMALS: no acute distress, patient oriented x3 and healthy appearing HENMT: COMMON NORMALS: normocephalic and atraumatic HEAD & SCALP: n ormocephalic and atraumatic Eye: COMMON NORMALS: conjunctivae normal CONJUNCTIVA: Yes conjunctivae normal Neck/C-Spine: COMMON NORMALS: full ROM and supple Chest: COMMONS NORMALS: normal inspection of the chest and normal palpation of entire chest wall Resp: COMMON NORMALS: normal respiratory effort, No retractions, No use of accessory muscles and clear to auscultation bilaterally AUSCULTATION: clear to auscultation bilaterally Cardio: COMMON NORMALS: regular rate, regular rhythm and No murmurs present (Cardio) RATE: regular rate RHYTHM: regular rhythm GI: COMMON NORMALS: Normal to inspection, nondistended, normoactive bowel sounds present, Soft to palpation and no masses PALPATION: Yes Soft to palpation and Yes Tenderness to palpation present (GI) Details: LLQ Extremity: COMMON NORMALS: normal to inspection and full ROM Neuro: COMMON NORMALS: patient oriented x3, moves all extremities and no focal motor deficits Psych: COMMON NORMALS: mental status grossly normal, Normal thought process present and cooperative THOUGHT PROCESS: Normal thought process present Skin: COMMON NORMALS: no rashes or lesions noted and no wounds GENERAL SKIN EXAM: no rashes or lesions noted Course 2 Vital Signs: Vital signs: Vital Signs Temperature 97.8 F 07/25/24 16:30 Pulse Rate 110 H 07/25/24 20:00 Respiratory Rate 20 H 07/25/24 16:30 Blood Pressure 135/66 07/25/24 20:00 Pulse Oximetry 94 07/25/24 20:00 Oxygen Delivery Me thod Room Air 07/25/24 19:12 MDM - Abdominal Pain Medical Decision Making Patient presents with abdominal pain CT shows diverticulitis patient does have an elevated white count her blood pressures here been stable. Will start IV antibiotics spoke to hospitalist along with surgeon will admit at this time. Medical Records I reviewed the patient's medical records. Lab Data I reviewed the patient's lab results. 07/25/24 16:41 07/25/24 16:41 Labs/Radiology: Radiology Impressions Abdomen/Pelvis CT 07/25/24 16:33 IMPRESSION: 1. Sigmoid colon diverticulitis with a localized collection of air and fluid measuring up to at least 6.5 cm seen along the mid sigmoid colon likely reflecting a localized contained perforation, new compared to prior exam. 2. Air in the urinary bladder may be iatrogenic. Laboratory Results WBC 19.82 10^3/uL (3.29-11.43) H 07/25/24 16:41 RBC 5.38 10^6/uL (3.85-5.65) 07/25/24 16:41 Hgb 14.60 g/dL (11.27-16.99) 07/25/24 16:41 Hct 44.0 % (36-47) 07/25/24 16:41 MCV 81.8 fl (85-98) L 07/25/24 16:41 MCH 27.1 pg (27-33) 07/25/24 16:41 MCHC 33.2 g/dL (30-55) 07/25/24 16:41 RDW 13.6 % (12.1-15.1) 07/25/24 16:41 Plt Count 496 10^3/cmm (157-399) H 07/25/24 16:41 MPV 9.9 fL (7.4-10.4) 07/25/24 16:41 Neut % (Auto) 74.1 % 07/25/24 16:41 Lymph % (Auto) 16.0 % 07/25/24 16:41 [place] % (Auto) 7.7 % 07/25/24 16:41 Eos % (Auto) 0.2 % 07/25/24 16:41 Baso % (Auto) 0.5 % 07/25/24 16:41 Neut # (Auto) 14.69 10^3/uL (1.8-7.7) H 07/25/24 16:41 Lymph # (Auto) 3.2 10^3/uL (0.8-4.8) 07/25/24 16:41 [place] # (Auto) 1.5 10^3/uL (0.2-0.9) H 07/25/24 16:41 Eos # (Auto) 0.0 10^3/uL (0.0-0.8) 07/25/24 16:41 Baso # (Auto) 0.1 10^3/uL (0.0-0.1) 07/25/24 16:41 Nucleated RBC % (auto) 0 % 07/25/24 16:41 Nucleated RBCs # 0.0 /100WBC 07/25/24 16:41 Sodium 131 mmol/L (136-145) L 07/25/24 16:41 Potassium 2.6 mmol/L (3.5-5.1) L* 07/25/24 16:41 Chloride 85 mmol/L (98-107) L 07/25/24 16:41 Carbon Dioxide 22 mmol/L (22-29) 07/25/24 16:41 Anion Gap 26.6 (5-19) H 07/25/24 16:41 BUN 7 mg/dL (8-23) L 07/25/24 16:41 Creatinine 0.7 mg/dL (0.5-0.9) 07/25/24 16:41 GFR Calculation Not Reportable 07/25/24 16:41 Glucose 151 mg/dL (65-115) H 07/25/24 16:41 Calculated Osmolality 273 mOsm/kg (285-295) L 07/25/24 16:41 Calcium 8.5 mg/dL (8.5-10.5) 07/25/24 16:41 Magnesium 1.9 mg/dL (1.7-2.3) 07/25/24 16:41 Total Bilirubin 0.9 mg/dL (0.15-1.2) 07/25/24 16:41 AST 83 U/L (0-32) H 07/25/24 16:41 ALT 54 U/L (0-33) H 07/25/24 16:41 Alkaline Phosphatase 82 U/L (35-105) 07/25/24 16:41 Total Protein 7.0 g/dL (6.6-8.7) 07/25/24 16:41 Albumin 3.1 g/dL (3.5-5.2) L 07/25/24 16:41 Globulin 3.9 g/dL (1.3-4.6) 07/25/24 16:41 Lipase 34 U/L (13-60) 07/25/24 16:41 All radiology interpretation(s) finalized by discharge Discharge Plan Discharge Patient Disposition: Admitted As Inpatient Clinical Impression: Diverticulitis Condition: Stable Prescriptions: No Action ondansetron HCl 4 mg tablet 4 mg PO Q8H Qty: 30 0RF Reglan 10 mg tablet 10 mg PO Q8H PRN (Reason: nausea and vomiting) Qty: 30 0RF hydrocodone-acetaminophen 10-325 mg tablet 1 tab PO TID PRN (Reason: pain) 30 Days Qty: 90 0RF Rx Instructions: fill on or after 06/23/21 baclofen 20 mg tablet 20 mg PO BID PRN (Reason: spasms) 30 Days Qty: 60 1RF hydrocodone-acetaminophen 10-325 mg tablet 1 tab PO .q4 PRN (Reason: pain) 5 Days Qty: 30 0RF simvastatin 40 mg tablet See Rx Instructions .ROUTE .COMPLEX Qty: 60 0RF Dose Instruction: TAKE 1 TABLET BY MOUTH DAILY Rx Instructions: TAKE 1 TABLET BY MOUTH DAILY pantoprazole 40 mg tablet,delayed release (DR/EC) See Rx Instructions .ROUTE .COMPLEX Qty: 60 0RF Dose Instruction: TAKE 1 TABLET BY MOUTH DAILY Rx Instructions: TAKE 1 TABLET BY MOUTH DAILY verapamil 120 mg tablet extended release See Rx Instructions .ROUTE .COMPLEX Qty: 60 0RF Dose Instruction: TAKE 1 TABLET BY MOUTH DAILY Rx Instructions: TAKE 1 TABLET BY MOUTH DAILY lisinopril-hydrochlorothiazide 20-12.5 mg tablet See Rx Instructions .ROUTE .COMPLEX Qty: 60 0RF Dose Instruction: TAKE 1 TABLET BY MOUTH DAILY Rx Instructions: TAKE 1 TABLET BY MOUTH DAILY tizanidine 4 mg tablet See Rx Instructions .ROUTE .COMPLEX Qty: 60 3RF Dose Instruction: TAKE TWO TABLETS (8 MG) BY MOUTH AT BEDTIME NEEDED FOR MUSCLE SPASTICITY FOR 30 DAYS Rx Instructions: TAKE TWO TABLETS (8 MG) BY MOUTH AT BEDTIME NEEDED FOR MUSCLE SPASTICITY FOR 30 DAYS Referrals: Emanuel Lucia, GLASS INSERTER [Primary Care Provider] - Print Language: Icelandic Coding Level of Care Code ED Pipe Roller for Vicky Downing
[2024-07-25 16:46] LABS: Basophils # 0.1 10^3/uL (0.0-0.1); Basophils % 0.5 %; Eosinophils % 0.2 %; Lymphocytes # 3.2 10^3/uL (0.8-4.8); Mean Corpuscular HGB Conc 33.2 g/dL (30-55); Mean Corpuscular Hemoglobin 27.1 pg (27-33); Mean Corpuscular Volume 81.8 fl (85-98); Mean Platelet Volume 9.9 fL (7.4-10.4); Monocytes # 1.5 10^3/uL (0.2-0.9); Monocytes % 7.7 %; Neutrophils # 14.69 10^3/uL (1.8-7.7); Neutrophils % 74.1 %; Nucleated Red Blood Cells % 0 %; Platelet Count 496 10^3/cmm (157-399); Red Blood Count 5.38 10^6/uL (3.85-5.65); Red Cell Distribution Width 13.6 % (12.1-15.1); White Blood Count 19.82 10^3/uL (3.29-11.43)
[2024-07-25 17:09] LABS: Alanine Aminotransferase 54 U/L (0-33); Albumin Level 3.1 g/dL (3.5-5.2); Alkaline Phosphatase 82 U/L (35-105); Anion Gap 26.6 (5-19); Aspartate Amino Transferase 83 U/L (0-32); Blood Urea Nitrogen 7 mg/dL (8-23); Calcium 8.5 mg/dL (8.5-10.5); Carbon Dioxide 22 mmol/L (22-29); Chloride 85 mmol/L (98-107); Globulin 3.9 g/dL (1.3-4.6); Glucose 151 mg/dL (65-115); Lipase 34 U/L (13-60); Osmolality Calculated 273 mOsm/kg (285-295); Sodium 131 mmol/L (136-145); Total Bilirubin 0.9 mg/dL (0.15-1.2)
[2024-07-25 17:12] LABS: Potassium 2.6 mmol/L (3.5-5.1)
[2024-07-25 17:28] LABS: Magnesium 1.9 mg/dL (1.7-2.3)
--- NOTE | 2024-07-25 18:19 | PC.NURSE ---
attempted to get b/p on pt, pt refused and ripped off bp cuff stating It's to damn tight it's ripping my arm off .
[2024-07-25] MEDS: ondansetron 2 mg/ML SDV 2 mL 4 MG IVP (19:10)
[2024-07-25] MEDS: HYDROmorphone 0.5 MG/0.5 ML INJ IVP (19:11)
[2024-07-25] MEDS: iohexol 350 mg/mL 500 mL Btl (per mL) IV (19:30)
[2024-07-25] MEDS: metroNIDAZOLE IV 500 MG/100 ML PREMIX 100 MG IV (20:13)
[2024-07-25] MEDS: ciprofloxacin 400 MG/200 ML PREMIX 200 MG IV (20:13)
[2024-07-25] MEDS: sodium chloride 0.9% 1,000 ML 999 ML IV ×2 (20:54→22:47)
--- NOTE | 2024-07-25 21:17 | P.HP_ITS ---
Providers/Chief Complaint 2 Primary Care Provider: DOMINIC Frost Chief Complaint: abd pain History of Present Illness Dianelys Reagan is a 74 year old female with history of diverticulitis, does not use any medications however does have history of hypertension, lives alone, independent for daily activities, does not smoke or drink alcohol presented with chief complaint of abdominal pain nausea and vomiting. Patient is stating that her symptoms started a week ago with abdominal pain and nausea she has had 12-14 episodes in the last 7 days, she has not noticed any fever chills or rigors but her abdominal pain has gotten worse to the point that she cannot tolerate anymore that prompted her visit to the ER. Workup in the ER consistent with sepsis related to diverticulitis with perforation. She has been given IV fluids and antibiotics. Patient at the time of evaluation stating her pain was 12 on admission and now its 8 she is not actively vomiting. General surgery has been consulted patient has severe electrolyte imbalance and signs of dehydration. Blood pressure is low. Review of Systems 2 Const: Denies: chills Eyes: Denies: change in vision ENMT: Denies: throat pain Card: Denies: chest pain Resp: Denies: dyspnea GI: Reports: abdominal pain, nausea and vomiting : Denies: flank pain Musc: Denies: back pain Medications/Allergies Home Medications ?Medication ?Instructions ?Recorded ?Confirmed ?Last Taken ?Type metoclopramide HCl 10 mg tablet 10 mg PO Q8H PRN nause a and 06/11/20 05/15/22 Unknown Rx (Reglan) vomiting #30 tabs ondansetron HCl 4 mg tablet 4 mg PO Q8H #30 tabs 06/1105/15/22 Unknown Rx baclofen 20 mg tablet 20 mg PO BID PRN spasms 30 d ays 06/04/21 05/15/22 Unknown Rx #60 tabs hydrocodone 10 mg-acetaminophen 1 tab PO TID PRN pain 30 days #90 06/04/21 05/15/22 Unknown Rx 325 mg tablet tabs lisinopril 20 See Rx Instructions .Route 0 12/16/21 05/15/22 Unknown Rx mg-hydrochlorothiazide 12.5 mg .COMPLEX #60 tabs tablet pantoprazole 40 mg tablet,delayed See Rx Instructions .Route 12/16/21 05/15/22 Unknown Rx release .COMPLEX #60 tabs simvastatin 40 mg tablet See Rx Instructions .Route 0 12/16/21 05/15/22 Unknown Rx .COMPLEX #60 tabs verapamil 120 mg tablet,extended See Rx Instructions . Route 12/16/21 05/15/22 Unknown Rx release .COMPLEX #60 tabs hydrocodone 10 mg-acetaminophen 1 tab PO .q4 PRN pain 5 days #30 05/15/22 05/15/22 Unknown Rx 325 mg tablet tabs tizanidine 4 mg tablet See Rx Instructions .Route 0 12/23/22 Unknown Rx .COMPLEX #60 tabs Allergies Allergy/AdvReac Type Severity Reaction Status Date / Time morphine Allergy Unknown HIVES Verified 05/15/22 09:50 oxycodone Allergy Unknown HIVES Verified 05/15/22 09:50 PFSH Acute 2 PFSH: Medical History Chronic neck and back pain Chronic nausea Encounter for long-term opiate analgesic use Hypertension Irritable bowel syndrome Spondylolisthesis, cervical region Surgical History History of cholecystectomy History of lumbar surgery History of carpal tunnel surgery History of knee replacement S/P rotator cuff repair History of hysterectomy Family History Other Cancer Social History Smoking and tobacco/nicotine status: never used tobacco/nicotine Second hand smoke exposure: No Alcohol intake: never Substance/Drug Use: never Household members: spouse Housing: House Vitals/I&O/Wt Last Vital Signs Temp 97.8 F 07/25/24 16:30 Pulse 113 H 07/25/24 20:30 Resp 20 H 07/25/24 16:30 BP 115/69 07/25/24 20:30 Pulse Ox 96 07/25/24 20:30 O2 Del Method Room Air 07/25/24 20:30 Weight last 48 hrs Weight 78.925 kg Physical Exam 2 Narrative: Signs of dehydration Laying supine Low blood pressure GCS 15 AOx4 S1, S2 No abdominal tenderness on superficial palpation, there is hypogastric region tenderness and left lower quadrant tenderness on deep palpation There is mild guarding no significant rigidity Clinical signs of dehydration present S1, S2 Blood pressure stable at this point No active chest pain Doing well on room air Sepsis: Is patient septic: Yes Focused sepsis exam: Cap refill less than 3 sec. No skin mottling Pleasant and cooperative Heart rate 100 Tachypneic Saturating well on room air 94% Peripheral pulses intact Date exam was performed: 07/25/24 Time exam was performed: 23:22 Data 07/25/24 16:41 07/25/24 16:41 A&P Assessment and plan (1) Intractable vomiting: (2) Irritable bowel syndrome: Qualifiers: Irritable bowel syndrome type: with constipation Qualified Code(s): K 58.1 - Irritable bowel syndrome with constipation (3) Diverticulitis: (4) Chronic neck and back pain: (5) Sepsis: Plan Sepsis related to diverticulitis with perforation Start Zosyn Sepsis criteria met with tachypnea tachycardia leukocytosis endorgan damage high lactic acid I will start sepsis protocol She received 1 L in the ER, will give her another 2liter Start Zosyn Blood cultures will be requested, please note patient has already received antibiotics in the ER General Surgery consulted N.p.o. Opioids administered Start D5 normal saline maintenance rate fluid History of hypertension does not take any medication at home: Stating that she does not check her blood pressure, does not follow-up with PCP until she really have to Monitor vitals for now No history of PCI [place] or CHF Does not use oxygen at home, does not smoke or drink alcohol Full code N.p.o. DVT prophylaxis SCDs PDMP PDMP Reviewed: Not Reviewed Attestations 2 Medical Necessity Statement*: More than 2 midnights anticipated Diagnoses Intractable vomiting R11.10 Irritable bowel syndrome with constipation K58.1 Irritable bowel syndrome type: with constipation Diverticulitis K57.92 Chronic neck and back pain M54.2; M54.9; G89.29 Sepsis A41.9
[2024-07-25 21:29] LABS: Bilirubin Urine 1+ (Negative); Blood Urine 3+ (Negative); Glucose Urine UA Negative (Normal); Ketones Urine 2+ (Negative); Leukocyte Esterase Urine 3+ (Negative); Nitrate Urine Positive (Negative); Protein Urine 2+ (Negative); Urine Appearance Turbid (CLEAR); Urine Color Dark Yellow (Yellow); pH Urine 5.5 (5-7)
[2024-07-25 21:31] LABS: Add Urine Microscopic? YES; Bacteria Urine 4+ /hpf; RBC Urine 51-100 /hpf (0-2); WBC Urine >100 /hpf (0-5)
[2024-07-25 21:58] LABS: Add Urine Culture? No; Specific Gravity, Urine 1.039 (1.005-1.030); UA Slide Review UA Slide Review Perf
[2024-07-25 22:08] LABS: Reflex Lactate Order REFLEX LACTIC ORDERD
--- NOTE | 2024-07-25 22:25 | P.CONIM_ITS ---
Providers/Reason For Consult 2 Consulting Physician/Specialty*: Dr. Valenzuela general surgery Reason for Consult*: Diverticulitis Attending Physician: Frederick Sanchez MD Primary Care Provider: DOMINIC Frost History of Present Illness History of Present Illness Dianelys Reagan is a 74 year old female history of diverticulitis who presents with diverticulitis and pericolonic abscess. Patient has responded appropriately to resuscitation. Pain is significantly improved. Abdomen is benign. Medications/Allergies Home Medications ?Medication ?Instructions ?Recorded ?Confirmed ?Last Taken ?Type metoclopramide HCl 10 mg tablet 10 mg PO Q8H PRN nause a and 06/11/20 05/15/22 Unknown Rx (Reglan) vomiting #30 tabs ondansetron HCl 4 mg tablet 4 mg PO Q8H #30 tabs 06/1105/15/22 Unknown Rx baclofen 20 mg tablet 20 mg PO BID PRN spasms 30 d ays 06/04/21 05/15/22 Unknown Rx #60 tabs hydrocodone 10 mg-acetaminophen 1 tab PO TID PRN pain 30 days #90 06/04/21 05/15/22 Unknown Rx 325 mg tablet tabs lisinopril 20 See Rx Instructions .Route 0 12/16/21 05/15/22 Unknown Rx mg-hydrochlorothiazide 12.5 mg .COMPLEX #60 tabs tablet pantoprazole 40 mg tablet,delayed See Rx Instructions .Route 12/16/21 05/15/22 Unknown Rx release .COMPLEX #60 tabs simvastatin 40 mg tablet See Rx Instructions .Route 0 12/16/21 05/15/22 Unknown Rx .COMPLEX #60 tabs verapamil 120 mg tablet,extended See Rx Instructions . Route 12/16/21 05/15/22 Unknown Rx release .COMPLEX #60 tabs hydrocodone 10 mg-acetaminophen 1 tab PO .q4 PRN pain 5 days #30 05/15/22 05/15/22 Unknown Rx 325 mg tablet tabs tizanidine 4 mg tablet See Rx Instructions .Route 0 12/23/22 Unknown Rx .COMPLEX #60 tabs Allergies Allergy/AdvReac Type Severity Reaction Status Date / Time morphine Allergy Unknown HIVES Verified 05/15/22 09:50 oxycodone Allergy Unknown HIVES Verified 05/15/22 09:50 Current Medications Generic Name Dose Route Start Last Admin Trade Name Freq PRN Reason Stop Dose Admin Sodium Chloride 1,000 mls @ 999 mls/hr 07/25/24 20:45 07/25/24 22:23 Sodium Chloride 0.9% IV 07/25/24 22:45 Infused .Q1H1M NATALIE Infusion PFSH Acute 2 PFSH: Medical History Chronic neck and back pain Chronic nausea Encounter for long-term opiate analgesic use Hypertension Irritable bowel syndrome Spondylolisthesis, cervical region Surgical History History of cholecystectomy History of lumbar surgery History of carpal tunnel surgery History of knee replacement S/P rotator cuff repair History of hysterectomy Family History Other Cancer Social History Smoking and tobacco/nicotine status: never used tobacco/nicotine Second hand smoke exposure: No Alcohol intake: never Substance/Drug Use: never Household members: spouse Housing: House Vitals/I&O/Wt Last Vital Signs Temp 97.8 F 07/25/24 16:30 Pulse 101 H 07/25/24 21:30 Resp 20 H 07/25/24 16:30 BP 100/56 07/25/24 21:30 Pulse Ox 93 07/25/24 21:30 O2 Del Method Room Air 07/25/24 21:30 07/25/24 07/25/24 07/25/24 06:59 14:59 22:59 Intake Total 1300 / 1300 Balance 1300 / 1300 Weight last 48 hrs Weight 174 lb Physical Exam 2 Narrative: Chest: Unlabored breathing room air. No lymphadenopathy. Heart: Regular rate and rhythm. Abdomen: Soft, mildly tender, distended. No masses or lymphadenopathy. Data 07/25/24 16:41 07/25/24 16:41 A&P Assessment and plan (1) Diverticulitis: Plan 74-year-old female who presented with diverticulitis and a pericolonic abscess. Responded well to resuscitation. Pain is improved. Abdomen is benign. Continue IV antibiotics for 24 hours, n.p.o., IV fluids. Will follow closely. PDMP PDMP Reviewed: Not Reviewed Coding Level of Care Code 77742 Diagnoses Diverticulitis K57.92
--- NOTE | 2024-07-25 22:29 | PC.NURSE ---
PT report called to Anthony in ICU.
[2024-07-25 23:31] LABS: Lactic Acid level (Lactate) 1.6 mmol/L (0.5-2.2)
[2024-07-26] VITALS (18 sets, daily range): BP systolic 97–160; BP diastolic 59–109; PULSE 82–104; RESP 13–28; TEMP 36.6; O2SAT 91–100
[2024-07-26] MEDS: sodium chloride 0.9% 1,000 ML 999 ML IV (00:30)
[2024-07-26] MEDS: lidocaine 1% 5 ML in potassium chloride premix 100 ML 26.25 ML IV (00:31)
[2024-07-26] MEDS: dextrose 5%-sod chloride 0.9% 1,000 ML 30 ML IV ×2 (00:31→23:56)
[2024-07-26] MEDS: piperacillin-tazobactam 3.375 GM in sodium chloride 0.9% (plus) 50 ML IV ×4 (00:32→23:57)
[2024-07-26 04:59] LABS: Basophils # 0.1 10^3/uL (0.0-0.1); Basophils % 0.4 %; Eosinophils % 0.2 %; Hematocrit 35.3 % (36-47); Lymphocytes # 1.3 10^3/uL (0.8-4.8); Lymphocytes % 9.4 %; Mean Corpuscular Hemoglobin 27.4 pg (27-33); Mean Corpuscular Volume 85.5 fl (85-98); Mean Platelet Volume 10.7 fL (7.4-10.4); Monocytes # 1.2 10^3/uL (0.2-0.9); Monocytes % 8.6 %; Neutrophils # 10.85 10^3/uL (1.8-7.7); Neutrophils % 80.2 %; Nucleated Red Blood Cells % 0 %; Platelet Count 339 10^3/cmm (157-399); Red Blood Count 4.13 10^6/uL (3.85-5.65); Red Cell Distribution Width 13.7 % (12.1-15.1); White Blood Count 13.53 10^3/uL (3.29-11.43)
[2024-07-26 05:25] LABS: Blood Urea Nitrogen 5 mg/dL (8-23); Carbon Dioxide 23 mmol/L (22-29); Chloride 96 mmol/L (98-107); Glucose 140 mg/dL (65-115); Magnesium 1.8 mg/dL (1.7-2.3); Osmolality Calculated 270 mOsm/kg (285-295); Phosphorus 2.4 mg/dL (2.5-4.5); Sodium 130 mmol/L (136-145)
[2024-07-26 05:26] LABS: Slide Review Slide Review Perform
[2024-07-26] MEDS: HYDROmorphone 0.5 MG/0.5 ML INJ 0.4 MG IVP ×3 (06:43→19:33)
--- NOTE | 2024-07-26 07:12 | P.PN_ITS ---
Subjective 2 Subjective: Pain improved Abdomen benign White count down Vitals/I&O/Wt Last Vital Signs Temp 97.8 F 07/25/24 16:30 Pulse 99 07/25/24 23:15 Resp 20 H 07/25/24 16:30 BP 100/56 07/25/24 23:15 Pulse Ox 94 07/25/24 23:15 O2 Del Method Room Air 07/25/24 23:00 07/25/24 07/26/24 07/26/24 22:59 06:59 14:59 Intake Total 2300 / 2300 1050 / 3350 Balance 2300 / 2300 1050 / 3350 Weight last 48 hrs Weight 222 lb Weight 223 lb 12.307 oz Weight 174 lb Physical Exam 2 Narrative: Chest: Unlabored breathing room air. No lymphadenopathy. Heart: Regular rate and rhythm. Abdomen: Soft, mildly tender, nondistended. No masses or lymphadenopathy. Urinary Catheter Management: Cohen Latex: Cath Placed During This Visit: yes Urinary Catheter Date of Insertion: 07/26/24 Urinary Catheter Time of Insertion: 05:00 Data 07/26/24 04:16 07/26/24 04:16 Micro: Microbiology 07/26/24 00:45 Blood Culture - Preliminary Blood SPECIMEN COLLECTED 07/26/24 00:41 Blood Culture - Preliminary Blood SPECIMEN COLLECTED A&P Assessment and plan (1) Diverticulitis: Plan 74-year-old female who presented with diverticulitis with a pericolonic abscess. Responding well to antibiotics and bowel rest. Keep n.p.o. until 07/27/2024. Continue IV antibiotics. PDMP PDMP Reviewed: Not Reviewed Attestations 2 Medical Necessity Statement*: N/A Coding Level of Care Code 46473 Diagnoses Diverticulitis K57.92
--- NOTE | 2024-07-26 07:42 | PC.PHAR ---
Pt had 9 medications on her chart-ALL were from 2021 and 2022. Pt states no longer takes any medications.
--- NOTE | 2024-07-26 12:36 | P.PN_ITS ---
Vitals/I&O/Wt Last Vital Signs Temp 97.8 F 07/26/24 12:01 Pulse 85 07/26/24 12:01 Resp 16 07/26/24 12:01 BP 114/70 07/26/24 12:01 Pulse Ox 100 07/26/24 12:01 O2 Del Method Room Air 07/26/24 12:01 O2 Flow Rate 2 07/26/24 10:00 07/25/24 07/26/24 07/26/24 22:59 06:59 14:59 Intake Total 2300 / 2300 1050 / 3350 Balance 2300 / 2300 1050 / 3350 Weight last 48 hrs Weight 100.698 kg Weight 101.5 kg Weight 78.925 kg Physical Exam 2 Narrative: laying in bed at this time, asking for food however i told her she was NPO clear to auscultation b/l abdomen tender periumbilical region on right side, LLQ tender as well, mild guarding present. no rigidity S1, S2 Blood pressure stable at this point No active chest pain Doing well on room air Urinary Catheter Management: Cohen Latex: Cath Placed During This Visit: yes Reason for Continuing Indwelling Catheter: Accurate Measurement of Urinary Output in Critically Ill Patients Urinary Catheter Date of Insertion: 07/26/24 Urinary Catheter Time of Insertion: 05:00 Sepsis: Is patient septic: Yes Focused sepsis exam: Cap refill less than 3 sec. No skin mottling Pleasant and cooperative Heart rate 100 Tachypneic Saturating well on room air 94% Peripheral pulses intact Date exam was performed: 07/25/24 Time exam was performed: 23:22 Data 07/26/24 04:16 07/26/24 04:16 Micro: Microbiology 07/26/24 00:45 Blood Culture - Preliminary Blood SPECIMEN COLLECTED 07/26/24 00:41 Blood Culture - Preliminary Blood SPECIMEN COLLECTED A&P Assessment and plan (1) Intractable vomiting: (2) Irritable bowel syndrome: Qualifiers: Irritable bowel syndrome type: with constipation Qualified Code(s): K 58.1 - Irritable bowel syndrome with constipation (3) Diverticulitis: (4) Chronic neck and back pain: (5) Sepsis: Plan Sepsis related to diverticulitis with perforation Start Zosyn Sepsis criteria met with tachypnea tachycardia leukocytosis endorgan damage high lactic acid I will start sepsis protocol She received 1 L in the ER, will give her another 2liter Start Zosyn Blood cultures will be requested, please note patient has already received antibiotics in the ER General Surgery consulted N.p.o. Opioids administered Start D5 normal saline maintenance rate fluid History of hypertension does not take any medication at home: Stating that she does not check her blood pressure, does not follow-up with PCP until she really have to Monitor vitals for now No history of PCI [place] or CHF Does not use oxygen at home, does not smoke or drink alcohol Full code N.p.o. DVT prophylaxis SCDs 07/26/2024 continue NPO status continue IV fluids,antibiotics gen surg is following family at bedside K donnie today, 3.6 order 40 K rider PDMP PDMP Reviewed: Not Reviewed Attestations 2 Medical Necessity Statement*: diverticulitis with perforation continue NPO status and keep on IV ABX Diagnoses Intractable vomiting R11.10 Irritable bowel syndrome with constipation K58.1 Irritable bowel syndrome type: with constipation Diverticulitis K57.92 Chronic neck and back pain M54.2; M54.9; G89.29 Sepsis A41.9
--- NOTE | 2024-07-26 19:10 | PC.NURSE ---
Shift summary: Pt rested in be throughout shift. Pt refused getting out of bed to chair several times this shift , she stated she just wanted to rest. She is using oxygen at 2lpm/NC. Sinus rhythm noted on monitor. Rhythm measured out to be first degree block as well. VSS. She is afebrile. She has used swabs to moisten her mouth. She remains NPO. She has IVF and Abx infusing today. Bowel sounds are active x 4 quadrants. No flatus or MB noted this shift. Urine is dark and thick with cloudiness. Ouput of 500ml noted. Pt only requested pain medication once early this afternoon.
[2024-07-27] MEDS: HYDROmorphone 0.5 MG/0.5 ML INJ 0.4 MG IVP ×3 (00:09→19:50)
[2024-07-27 04:00] VITALS: BP 131/85; PULSE 89; RESP 19; TEMP 36.3; O2SAT 98
[2024-07-27 04:20] LABS: Basophils # 0.1 10^3/uL (0.0-0.1); Basophils % 0.5 %; Eosinophils # 0.1 10^3/uL (0.0-0.8); Eosinophils % 0.6 %; Hematocrit 36.5 % (36-47); Lymphocytes # 1.4 10^3/uL (0.8-4.8); Lymphocytes % 11.6 %; Mean Corpuscular HGB Conc 32.6 g/dL (30-55); Mean Corpuscular Hemoglobin 27.4 pg (27-33); Mean Corpuscular Volume 83.9 fl (85-98); Mean Platelet Volume 9.9 fL (7.4-10.4); Monocytes # 0.9 10^3/uL (0.2-0.9); Monocytes % 7.3 %; Neutrophils # 9.42 10^3/uL (1.8-7.7); Neutrophils % 78.8 %; Nucleated Red Blood Cells % 0 %; Platelet Count 376 10^3/cmm (157-399); Red Blood Count 4.35 10^6/uL (3.85-5.65); Red Cell Distribution Width 13.7 % (12.1-15.1); White Blood Count 11.94 10^3/uL (3.29-11.43)
[2024-07-27 04:39] LABS: Alanine Aminotransferase 53 U/L (0-33); Albumin Level 2.6 g/dL (3.5-5.2); Alkaline Phosphatase 115 U/L (35-105); Aspartate Amino Transferase 92 U/L (0-32); Blood Urea Nitrogen 5 mg/dL (8-23); Calcium 7.7 mg/dL (8.5-10.5); Carbon Dioxide 26 mmol/L (22-29); Chloride 97 mmol/L (98-107); Globulin 3.4 g/dL (1.3-4.6); Glucose 142 mg/dL (65-115); Osmolality Calculated 278 mOsm/kg (285-295); Phosphorus 2.7 mg/dL (2.5-4.5); Sodium 134 mmol/L (136-145); Total Bilirubin 0.8 mg/dL (0.15-1.2)
[2024-07-27 08:07] VITALS: BP 114/74; PULSE 88; RESP 20; TEMP 36.6; O2SAT 100
[2024-07-27] MEDS: piperacillin-tazobactam 3.375 GM in sodium chloride 0.9% (plus) 50 ML IV ×3 (08:21→23:31)
--- NOTE | 2024-07-27 10:55 | PC.SOCIAL ---
IMM Updated Updated pt on IMM. No questions voiced. Provided pt a copy. Initialed, dated, & timed a copy & placed in chart.
[2024-07-27 11:49] VITALS: BP 147/87; PULSE 85; RESP 22; TEMP 36.9; O2SAT 100
--- NOTE | 2024-07-27 12:16 | P.PN_ITS ---
Subjective 2 Subjective: seen today says her abdomen is sore but slightly better than yesterday she says she is waiting for surgeon to round Vitals/I&O/Wt Last Vital Signs Temp 98.4 F 07/27/24 11:49 Pulse 85 07/27/24 11:49 Resp 22 H 07/27/24 11:49 BP 147/87 07/27/24 11:49 Pulse Ox 100 07/27/24 11:49 O2 Del Method Nasal Cannula 07/27/24 11:49 O2 Flow Rate 2 07/26/24 15:00 FiO2 2 07/27/24 08:07 07/26/24 07/27/24 07/27/24 22:59 06:59 14:59 Intake Total 50 / 205 752.5 / 957.5 Output Total 500 / 500 Balance -450 / -295 752.5 / 457.5 Weight last 48 hrs Weight 103.6 kg Weight 103.6 kg Weight 100.698 kg Weight 101.5 kg Weight 78.925 kg Physical Exam 2 Narrative: laying in bed at this time, laying in bed appearing comfortable at this time. clear to auscultation b/l abdomen slightly LLQ tender, no apparent guarding present S1, S2 Blood pressure stable at this point No active chest pain Doing well on room air Urinary Catheter Management: Cohen Latex: Cath Placed During This Visit: yes Reason for Continuing Indwelling Catheter: Accurate Measurement of Urinary Output in Critically Ill Patients Urinary Catheter Date of Insertion: 07/26/24 Urinary Catheter Time of Insertion: 05:00 Data 07/27/24 03:49 07/27/24 03:49 Micro: Microbiology 07/26/24 00:45 Blood Culture - Preliminary Blood NEGATIVE TO DATE 07/26/24 00:41 Blood Culture - Preliminary Blood NEGATIVE TO DATE A&P Assessment and plan (1) Intractable vomiting: (2) Irritable bowel syndrome: Qualifiers: Irritable bowel syndrome type: with constipation Qualified Code(s): K 58.1 - Irritable bowel syndrome with constipation (3) Diverticulitis: (4) Chronic neck and back pain: (5) Sepsis: Plan Sepsis related to diverticulitis with perforation Start Zosyn Sepsis criteria met with tachypnea tachycardia leukocytosis endorgan damage high lactic acid I will start sepsis protocol She received 1 L in the ER, will give her another 2liter Start Zosyn Blood cultures will be requested, please note patient has already received antibiotics in the ER General Surgery consulted N.p.o. Opioids administered Start D5 normal saline maintenance rate fluid History of hypertension does not take any medication at home: Stating that she does not check her blood pressure, does not follow-up with PCP until she really have to Monitor vitals for now No history of PCI [place] or CHF Does not use oxygen at home, does not smoke or drink alcohol Full code N.p.o. DVT prophylaxis SCDs 07/26/2024 continue NPO status continue IV fluids,antibiotics gen surg is following family at bedside K donnie today, 3.6 order 40 K rider 07/27/2024 continue NPO status till clear from gen surg standpoint continue IV fluids, antibiotics gen surg following PDMP PDMP Reviewed: Not Reviewed Attestations 2 Medical Necessity Statement*: diverticulitis with perforation continue NPO status and keep on IV ABX Diagnoses Intractable vomiting R11.10 Irritable bowel syndrome with constipation K58.1 Irritable bowel syndrome type: with constipation Diverticulitis K57.92 Chronic neck and back pain M54.2; M54.9; G89.29 Sepsis A41.9
--- NOTE | 2024-07-27 12:55 | P.PN_ITS ---
Subjective 2 Subjective: White count down Afebrile Abdomen soft Vitals/I&O/Wt Last Vital Signs Temp 98.4 F 07/27/24 11:49 Pulse 85 07/27/24 11:49 Resp 22 H 07/27/24 11:49 BP 147/87 07/27/24 11:49 Pulse Ox 100 07/27/24 11:49 O2 Del Method Nasal Cannula 07/27/24 11:49 O2 Flow Rate 2 07/26/24 15:00 FiO2 2 07/27/24 08:07 07/26/24 07/27/24 07/27/24 22:59 06:59 14:59 Intake Total 50 / 205 752.5 / 957.5 Output Total 500 / 500 Balance -450 / -295 752.5 / 457.5 Weight last 48 hrs Weight 228 lb 6.4 oz Weight 228 lb 6.4 oz Weight 222 lb Weight 223 lb 12.307 oz Weight 174 lb Physical Exam 2 Narrative: Chest: Unlabored breathing room air. No lymphadenopathy. Heart: Regular rate and rhythm. Abdomen: Soft, mildly tender, nondistended. No masses or lymphadenopathy. Urinary Catheter Management: Cohen Latex: Cath Placed During This Visit: yes Reason for Continuing Indwelling Catheter: Accurate Measurement of Urinary Output in Critically Ill Patients Urinary Catheter Date of Insertion: 07/26/24 Urinary Catheter Time of Insertion: 05:00 Data 07/27/24 03:49 07/27/24 03:49 Micro: Microbiology 07/26/24 00:45 Blood Culture - Preliminary Blood NEGATIVE TO DATE 07/26/24 00:41 Blood Culture - Preliminary Blood NEGATIVE TO DATE A&P Assessment and plan (1) Diverticulitis: Plan 74-year-old female being treated nonoperatively for diverticulitis with a pericolonic abscess. Benign abdomen. Can trial clears. Continue IV antibiotics for now. PDMP PDMP Reviewed: Not Reviewed Attestations 2 Medical Necessity Statement*: N/A Coding Level of Care Code 24523 Diagnoses Diverticulitis K57.92
[2024-07-27 13:18] VITALS: PULSE 91; RESP 20; O2SAT 99
[2024-07-27 16:00] VITALS: BP 128/95; PULSE 86; RESP 18; TEMP 36.5; O2SAT 100
[2024-07-27 19:26] VITALS: BP 132/82; PULSE 85; RESP 22; TEMP 36.7; O2SAT 100
[2024-07-27] MEDS: dextrose 5%-sod chloride 0.9% 1,000 ML 30 ML IV (23:31)
[2024-07-27] MEDS: HYDROcodone-acetaminophen 5-325 mg Tablet 1 TAB PO (23:31)
[2024-07-28] VITALS (37 sets, daily range): BP systolic 81–132; BP diastolic 59–95; PULSE 77–160; RESP 14–32; TEMP 36.5–36.7; O2SAT 93–100
[2024-07-28 03:43] LABS: Basophils # 0.1 10^3/uL (0.0-0.1); Basophils % 0.7 %; Eosinophils # 0.3 10^3/uL (0.0-0.8); Eosinophils % 3.3 %; Hematocrit 37.4 % (36-47); Lymphocytes # 1.2 10^3/uL (0.8-4.8); Lymphocytes % 14.8 %; Mean Corpuscular Hemoglobin 26.8 pg (27-33); Mean Corpuscular Volume 86.4 fl (85-98); Mean Platelet Volume 9.8 fL (7.4-10.4); Monocytes # 0.6 10^3/uL (0.2-0.9); Monocytes % 7.4 %; Neutrophils # 5.93 10^3/uL (1.8-7.7); Neutrophils % 73.2 %; Nucleated Red Blood Cells % 0 %; Platelet Count 322 10^3/cmm (157-399); Red Blood Count 4.33 10^6/uL (3.85-5.65); Red Cell Distribution Width 13.8 % (12.1-15.1); White Blood Count 8.11 10^3/uL (3.29-11.43)
[2024-07-28 04:07] LABS: Blood Urea Nitrogen 5 mg/dL (8-23); Calcium 7.4 mg/dL (8.5-10.5); Carbon Dioxide 26 mmol/L (22-29); Chloride 99 mmol/L (98-107); Glucose 123 mg/dL (65-115); Osmolality Calculated 277 mOsm/kg (285-295); Sodium 134 mmol/L (136-145)
[2024-07-28] MEDS: HYDROmorphone 0.5 MG/0.5 ML INJ 0.4 MG IVP ×2 (08:15→18:01)
[2024-07-28] MEDS: piperacillin-tazobactam 3.375 GM in sodium chloride 0.9% (plus) 50 ML IV ×2 (08:15→16:04)
--- NOTE | 2024-07-28 10:15 | P.PN_ITS ---
Subjective 2 Subjective: Tolerating clears White count down Abdominal pain getting better Abdominal exam benign Vitals/I&O/Wt Last Vital Signs Temp 97.9 F 07/28/24 07:42 Pulse 84 07/28/24 07:42 Resp 18 07/28/24 07:42 BP 130/76 07/28/24 07:42 Pulse Ox 100 07/28/24 07:42 O2 Del Method Nasal Cannula 07/28/24 07:42 O2 Flow Rate 2 07/27/24 16:00 FiO2 2 07/27/24 08:07 07/27/24 07/28/24 07/28/24 22:59 06:59 14:59 Intake Total 50 / 100 757.5 / 857.5 Output Total 450 / 450 Balance -400 / -350 757.5 / 407.5 Weight last 48 hrs Weight 231 lb 9.6 oz Weight 228 lb 6.4 oz Weight 228 lb 6.4 oz Physical Exam 2 Narrative: Chest: Unlabored breathing room air. No lymphadenopathy. Heart: Regular rate and rhythm. Abdomen: Soft, mildly tender, nondistended. No masses or lymphadenopathy. Urinary Catheter Management: Cohen Latex: Cath Placed During This Visit: yes Reason for Continuing Indwelling Catheter: Accurate Measurement of Urinary Output in Critically Ill Patients Urinary Catheter Date of Insertion: 07/26/24 Urinary Catheter Time of Insertion: 05:00 Data 07/28/24 03:33 07/28/24 03:33 A&P Assessment and plan (1) Diverticulitis: Plan 74-year-old female who presented with diverticulitis with a pericolonic abscess. Responded well to nonoperative management. White count continues trending down. Afebrile. Abdominal exam has improved with mild pain in the lower abdomen. Tolerating clears. From a surgical perspective can transition to oral antibiotics and discharged on clear liquids. If she experiences worsening abdominal pain she needs to come back to the emergency department. PDMP PDMP Reviewed: Not Reviewed Attestations 2 Medical Necessity Statement*: N/A Coding Level of Care Code 97280 Diagnoses Diverticulitis K57.92
--- NOTE | 2024-07-28 11:16 | PM.DCS ---
Discharge Providers Date of Admission: 07/25/24 20:26 Date of Discharge: July 28, 2024 Attending Provider at Admission: Frederick Sanchez MD Attending Provider at Discharge: Lyla Rogers MD Primary Care Provider: DOMINIC Frost Diagnoses at Discharge Discharge Diagnosis (1) Diverticulitis: Status: Acute Reason for Visit Reason for Visit: abd pain Hospital Course Hospital Course Patient was admitted for intractable nausea vomiting abdominal pain. She was diagnosed with sepsis related to diverticulitis with perforation. There is localized contained perforation new compared to prior exam. Patient was kept n.p.o. and on IV antibiotics. Serial abdominal exams were performed. She was seen by general surgery daily while in the hospital. Abdominal examination has improved, pain is improved, abdomen is much more soft with mild soreness at bilateral lower quadrants. Overall she feels better. She is tolerating clear liquids. General surgery has cleared patient for discharge home with clear liquid diet and advance as tolerated over next 2 to 3 days. Discussed all the above with patient and she demonstrated understanding of the plan. I will go ahead and discharge patient with 2 weeks of Augmentin and to follow-up with general surgery within a week. She is to come back to the hospital if she experiences any abdominal pain, fever, any other symptoms. Physical Exam Narrative: laying in bed at this time, laying in bed appearing comfortable at this time. clear to auscultation b/l abdomen soft nontender no guarding no rebound tenderness present. Planes of very mild soreness to lower abdominal area. S1, S2 Blood pressure stable at this point No active chest pain Doing well on room air Urinary Catheter Management: Cohen Latex: Cath Placed During This Visit: yes Reason for Continuing Indwelling Catheter: Accurate Measurement of Urinary Output in Critically Ill Patients Urinary Catheter Date of Insertion: 07/26/24 Urinary Catheter Time of Insertion: 05:00 Discharge Data Studies Completed and Pending Completed Studies During Hospitalization Category Date Time Status CT abdomen pelvis w con* [id number] Stat Cat Scan 07/25/24 16:33 Completed Pending at discharge Category Date Time Status Blood Culture Stat Lab 07/25/24 23:22 Results Radiology Impressions Abdomen/Pelvis CT 07/25/24 16:33 IMPRESSION: 1. Sigmoid colon diverticulitis with a localized collection of air and fluid measuring up to at least 6.5 cm seen along the mid sigmoid colon likely reflecting a localized contained perforation, new compared to prior exam. 2. Air in the urinary bladder may be iatrogenic. ADDENDUM: 07/25/242047 THIS REPORT CONTAINS FINDINGS THAT MAY BE CRITICAL TO PATIENT CARE. The findings were verbally communicated via telephone conference with WILMAN COPE at 8:46 PM CDT on 07/25/2024. The findings were acknowledged and understood. Laboratory Results WBC 8.11 10^3/uL (3.29-11.43) 07/28/24 03:33 RBC 4.33 10^6/uL (3.85-5.65) 07/28/24 03:33 Hgb 11.60 g/dL (11.27-16.99) 07/28/24 03:33 Hct 37.4 % (36-47) 07/28/24 03:33 MCV 86.4 fl (85-98) 07/28/24 03:33 MCH 26.8 pg (27-33) L 07/28/24 03:33 MCHC 31.0 g/dL (30-55) 07/28/24 03:33 RDW 13.8 % (12.1-15.1) 07/28/24 03:33 Plt Count 322 10^3/cmm (157-399) 07/28/24 03:33 MPV 9.8 fL (7.4-10.4) 07/28/24 03:33 Neut % (Auto) 73.2 % 07/28/24 03:33 Lymph % (Auto) 14.8 % 07/28/24 03:33 [place] % (Auto) 7.4 % 07/28/24 03:33 Eos % (Auto) 3.3 % 07/28/24 03:33 Baso % (Auto) 0.7 % 07/28/24 03:33 Neut # (Auto) 5.93 10^3/uL (1.8-7.7) 07/28/24 03:33 Lymph # (Auto) 1.2 10^3/uL (0.8-4.8) 07/28/24 03:33 [place] # (Auto) 0.6 10^3/uL (0.2-0.9) 07/28/24 03:33 Eos # (Auto) 0.3 10^3/uL (0.0-0.8) 07/28/24 03:33 Baso # (Auto) 0.1 10^3/uL (0.0-0.1) 07/28/24 03:33 Nucleated RBC % (auto) 0 % 07/28/24 03:33 Nucleated RBCs # 0.0 /100WBC 07/28/24 03:33 Sodium 134 mmol/L (136-145) L 07/28/24 03:33 Potassium 3.0 mmol/L (3.5-5.1) L 07/28/24 03:33 Chloride 99 mmol/L (98-107) 07/28/24 03:33 Carbon Dioxide 26 mmol/L (22-29) 07/28/24 03:33 Anion Gap 12.0 (5-19) 07/28/24 03:33 BUN 5 mg/dL (8-23) L 07/28/24 03:33 Creatinine 0.5 mg/dL (0.5-0.9) 07/28/24 03:33 GFR Calculation Not Reportable 07/28/24 03:33 Glucose 123 mg/dL (65-115) H 07/28/24 03:33 Calculated Osmolality 277 mOsm/kg (285-295) L 07/28/24 03:33 Lactic Acid 6.0 mmol/L (0.5-2.2) H* 07/25/24 16:41 Lactic Acid (Sepsis) 1.6 mmol/L (0.5-2.2) 07/25/24 23:00 Calcium 7.4 mg/dL (8.5-10.5) L 07/28/24 03:33 Phosphorus 2.7 mg/dL (2.5-4.5) 07/27/24 03:49 Magnesium 2.0 mg/dL (1.7-2.3) 07/28/24 03:33 Total Bilirubin 0.8 mg/dL (0.15-1.2) 07/27/24 03:49 AST 92 U/L (0-32) H 07/27/24 03:49 ALT 53 U/L (0-33) H 07/27/24 03:49 Alkaline Phosphatase 115 U/L (35-105) H 07/27/24 03:49 C-Reactive Protein 118.0 mg/L (0.0-4.9) H 07/26/24 04:16 Total Protein 6.0 g/dL (6.6-8.7) L 07/27/24 03:49 Albumin 2.6 g/dL (3.5-5.2) L 07/27/24 03:49 Globulin 3.4 g/dL (1.3-4.6) 07/27/24 03:49 Lipase 34 U/L (13-60) 07/25/24 16:41 Urine Color Dark yellow (Yellow) A 07/25/24 21:21 Urine Appearance Turbid (CLEAR) A 07/25/24 21:21 Urine pH 5.5 (5-7) 07/25/24 21:21 Ur Specific [place] 1.039 (1.005-1.030) H 07/25/24 21:21 Urine Protein 2+ (Negative) A 07/25/24 21:21 Urine Glucose (UA) Negative (Normal) 07/25/24 21:21 Urine Ketones 2+ (Negative) H 07/25/24 21:21 Urine Blood 3+ (Negative) A 07/25/24 21:21 Urine Nitrate Positive (Negative) A 07/25/24 21:21 Urine Bilirubin 1+ (Negative) H 07/25/24 21:21 Urine Urobilinogen 2.0 mg/dL (Negative) H 07/25/24 21:21 Ur Leukocyte Esterase 3+ (Negative) A 07/25/24 21:21 Urine RBC 51-100 /hpf (0-2) H 07/25/24 21:21 Urine WBC >100 /hpf (0-5) H 07/25/24 21:21 Ur Squamous Epith Cells 11-20 /hpf (0-5) H 07/25/24 21:21 Amorphous Sediment Not Reportable 07/25/24 21:21 Urine Bacteria 4+ /hpf (NONE) H 07/25/24 21:21 Hyaline Casts 19.60 /lpf 07/25/24 21:21 Vitals Last Vital Signs Temp 97.9 F 07/28/24 07:42 Pulse 82 07/28/24 09:20 Resp 18 07/28/24 09:20 BP 130/76 07/28/24 07:42 Pulse Ox 98 07/28/24 09:20 O2 Del Method Nasal Cannula 07/28/24 09:20 O2 Flow Rate 1 07/28/24 09:20 FiO2 2 07/27/24 08:07 Discharge Plan Discharge Patient Disposition: Home Condition: Stable Prescriptions: New amoxicillin-pot clavulanate 875-125 mg tablet 1 tab PO BID 14 Days Qty: 28 0RF ondansetron 4 mg tablet,disintegrating 4 mg PO Q8H PRN (Reason: nausea and vomiting) 4 Days Qty: 14 0RF Discharge Orders: Discharge Order (Routine); Ordered 07/28/24 Ordered By: Lyla Rogers Referrals: Kane Valenzuela MD [Physician] - 7-10 days Emanuel Lucia FNP [Primary Care Provider] - 4-7 days Discharge Diet: Advance as tolerated and Clear Liquid Discharge Activity: Resume usual activity Patient Instructions: Opioid Safety Activity Restrictions/Additional Instructions: Return to hospital if you experience worsening abdominal pain, nausea, vomiting, diarrhea, fever or any other symptoms. Discharge Attestations Time Spent in Discharge Care*: greater than 30 min Quality Metrics Clinical Quality Measures [ No reported AMI, CVA or VTE this stay] Coding Level of Care Code 69380 Total time (in minutes) for Discharge: 30 Diagnoses Diverticulitis K57.92
[2024-07-28] MEDS: potassium chloride ER 20 mEq Tablet 40 MEQ PO (14:30)
--- NOTE | 2024-07-28 15:24 | ECG_ITS ---
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 Measurements Intervals [place] Rate: 150 P: 0 MO: 0 QRS: -61 QRSD: 83 T: 19 QT: 293 QTc: 463 Interpretive Statements ATRIAL FLUTTER/TACHYCARDIA WITH RAPID VENTRICULAR RESPONSE LOW QRS VOLTAGE IN PRECORDIAL LEADS [QRS DEFLECTION < 1.0 mV IN CHEST LEADS] LEFT ANTERIOR FASCICULAR BLOCK [QRS AXIS <= -45, QR IN I, RS IN II] POSSIBLE ANTERIOR MYOCARDIAL INFARCTION , PROBABLY OLD [30 ms Q WAVE IN V3/V4, OR R < 0.2 mV IN V4] CRITICAL TEST RESULT Compared to ECG 09/08/2019 00:46:01 Low QRS voltage now present Left anterior fascicular block now present Myocardial infarct finding now present Sinus rhythm no longer present Electronically Signed On 07-28-2024 22:18:56 CDT by Merry Lopez M.D. [email or web address]
[2024-07-28] MEDS: HYDROcodone-acetaminophen 5-325 mg Tablet 1 TAB PO ×2 (15:33→19:58)
--- NOTE | 2024-07-28 15:53 | USCV_ITS ---
Dianelys Reagan Age: 74 Gender: F : 1950 Exam Date: 07/28/2024 18:40 Ordering Phys: Lyla Rogers MD Technologist: MARYAM [place] [facility] [place]: atrial flutter, History of HTN, diverticulosis sepsis BP: 112 / 66 HR: 91 Rhythm: Sinus Technical Quality: Adequate MEASUREMENTS (Male / Female) Normal Values 2D ECHO LV Diastolic Diameter PLAX 4.4 cm 4.2 - 5.9 / 3.9 - 5.3 cm IVS Diastolic Thickness 1.1 cm 0.6 - 1.0 / 0.6 - 0.9 cm IVS Systolic Thickness 1.8 cm LVPW Diastolic Thickness 1.3 cm 0.6 - 1.0 / 0.6 - 0.9 cm LVPW Systolic Thickness 1.6 cm LVOT Diameter 1.7 cm LV Ejection Fraction 2D Teich 55.5 % LV Ejection Fraction MOD 4C 50.6 % LV Ejection Fraction MOD 2C 62.8 % LV Ejection Fraction 2C AL 62.1 % LA Diameter 2.7 cm Aorta at Sinotubular Diameter 2.8 cm IVC Diameter 1.2 cm M-MODE LA Ao Ratio MM 1.6 AV Cusp Separation MM 1.8 cm DOPPLER AV Peak Velocity 159.7 cm/s LVOT Peak Velocity 133.0 cm/s AV Area Cont Eq vti 1.9 cm squared AV Area Cont Eq pk 1.8 cm squared MV Peak Velocity 96.0 cm/s MV Area PHT 3.8 cm squared Mitral E to A Ratio 0.8 TV Peak E Velocity 56.0 cm/s PV Peak Velocity 121.0 cm/s FINDINGS Left Ventricle Normal left ventricular size and systolic function, EF 55%.mild left ventricular hypertrophy. No regional wall motion abnormalities. Grade I/IV diastolic dysfunction (abnormal relaxation filling pattern), normal to mildly elevated filling pressures. Right Ventricle The right ventricle is normal in size and function. Right Atrium The right atrium is normal in size. Left Atrium The left atrium is normal in size. Mitral Valve No gross abnormalities noted Aortic Valve Thickened aortic valve. Tricuspid Valve No gross abnormalities noted Pulmonic Valve Pulmonic valve not well visualized. Pericardium Normal pericardium without effusion. Aorta Normal ascending aorta dimension. IVC Normal inferior vena cava. CONCLUSIONS Normal left ventricular size and systolic function, EF 55%.mild left ventricular hypertrophy. No regional wall motion abnormalities. Grade I/IV diastolic dysfunction (abnormal relaxation filling pattern), normal to mildly elevated filling pressures. Thickened aortic valve. Normal cardiac chamber sizes. There is no pericardial effusion. There are no intracardiac masses. No similar previous studies are available for comparison Dr Merry Lopez MD FACC (Electronically Signed) Final Date: 29 July 2024 10:02 S
[2024-07-28] MEDS: sodium chloride 0.9% 500 ML IV (16:00)
[2024-07-28 17:30] LABS: Blood Urea Nitrogen 5 mg/dL (8-23); Calcium 7.7 mg/dL (8.5-10.5); Carbon Dioxide 23 mmol/L (22-29); Chloride 95 mmol/L (98-107); Glucose 124 mg/dL (65-115); Magnesium 1.9 mg/dL (1.7-2.3); Osmolality Calculated 277 mOsm/kg (285-295); Sodium 134 mmol/L (136-145)
[2024-07-28] MEDS: dilTIAZem 5 mg/mL SDV 5 mL IVP (17:30)
[2024-07-28 17:35] LABS: Anion Gap 19.1 (5-19); Potassium 3.1 mmol/L (3.5-5.1)
[2024-07-28 17:39] LABS: NT Pro B Type Natriuretic Pept 927 pg/mL (0-125)
[2024-07-28] MEDS: sodium chloride 0.9% 1,000 ML 125 ML IV (17:44)
--- NOTE | 2024-07-28 17:58 | P.CONIM_ITS ---
Providers/Reason For Consult 2 Consulting Physician/Specialty*: STACY Lopez MD/cardiology Reason for Consult*: Atrial flutter with rapid ventricular rate Requesting Physician: Dr. Rogers Attending Physician: Lyla Rogers MD Primary Care Provider: DOMINIC Frost History of Present Illness History of Present Illness Dianelys Reagan is a 74 year old female admitted to hospital with a pericolonic abscess, possibly from spontaneous colon perforation. She was treated conservatively. She had a couple of bowel movements this morning. After the second bowel movements, while she was getting back to her bed, she went into atrial fibrillation with rapid ventricular rate. The heart rate was in the 150s and 160s. She was started on IV Cardizem. She continues to be in atrial flutter/fibrillation with rapid ventricular rate . Cardiology consult is requested for further cardiac evaluation recommendations. According the patient, she has no previous history for any cardiac arrhythmia. She has a longstanding history of intermittent hypertension. She has not been taking medications. With the current episode of atrial flutter/fibrillation, she has no palpitation or dizziness. She has no chest pain. No shortness of breath. She has the stomach pain which seems to be getting better. No fever or chills. No cough. No other specific complaints. She has no previous history for any coronary disease, myocardial infarction or congestive heart failure. No history for diabetes or dyslipidemia. She has a longstanding history of diverticulitis. No significant family history for cardiac arrhythmia or atherosclerotic heart disease. Her mother had questionable heart failure following the last childbirth?. No documented coronary disease. She in her 70s. No other relevant family history. She has no history for any smoking abuse, alcohol abuse or any other substance abuse. Review of Systems 2 Narrative: CONSTITUTIONAL: No fever or chills. EYES: No blurring of vision or other visual disturbances lately. ENT: No hoarseness of voice, auditory disturbances or sore throat. CARDIOVASCULAR: As mentioned above. RESPIRATORY: No significant cough. GASTROINTESTINAL: Abdominal pain and nausea GENITOURINARY: No dysuria or hematuria. INTEGUMENTARY: No skin rashes or history of skin cancer. NEURO: No transient ischemic attacks or amaurosis. PSYCHIATRIC: No history of psychosis or major depression. HEMATOLOGIC: No bleeding disorders or significant anemia. ENDOCRINE: No history of polyuria or polydipsia. MUSCULOSKELETAL: No recent joint pain or swelling. ALLERGY/IMMUNOLOGY: As mentioned above. Medications/Allergies Home Medications ?Medication ?Instructions ?Recorded ?Confirmed ?Last Taken ?Type amoxicillin 875 mg-potassium 1 tab PO BID 14 days #28 tabs 07/28/24 Unknown Rx clavulanate 125 mg tablet ondansetron 4 mg disintegrating 4 mg PO Q8H PRN nausea and 07/28/24 Unknown Rx tablet vomiting 4 days #14 tabs Allergies Allergy/AdvReac Type Severity Reaction Status Date / Time morphine Allergy Unknown HIVES Verified 05/15/22 09:50 oxycodone Allergy Unknown HIVES Verified 05/15/22 09:50 Current Medications Generic Name Dose Route Start Last Admin Trade Name Freq PRN Reason Stop Dose Admin Hydrocodone Bitart/Acetaminophen 1 tab 07/25/24 23:43 07/28/24 15:33 Hydrocodone-Acetaminophen 5-325 Mg Tablet PO 1 tab Q4H PRN Administration MILD AGITATION Hydromorphone HCl 0.4 mg 07/25/24 23:43 07/28/24 08:15 Hydromorphone 0.5 Mg/0.5 Ml Inj IVP 0.4 mg Q4H PRN Administration abd pain Piperacillin Sod/Tazobactam 50 mls @ 12.5 mls/hr 07/26/24 08:00 07/28/24 16:04 Sod 3.375 gm/ Sodium Chloride IV 12.5 mls/hr Q8H NATALIE Administration Sodium Chloride 500 mls @ 999 mls/hr 07/28/24 15:45 07/28/24 17:44 Sodium Chloride 0.9% IV Not Given .Q31M NATALIE Sodium Chloride 1,000 mls @ 125 mls/hr 07/28/24 16:00 07/28/24 17:44 Sodium Chloride 0.9% IV 125 mls/hr .Q8H NATALIE Administration PFSH Acute 2 PFSH: Medical History Chronic neck and back pain Chronic nausea Encounter for long-term opiate analgesic use Hypertension Irritable bowel syndrome Spondylolisthesis, cervical region Surgical History History of cholecystectomy History of lumbar surgery History of carpal tunnel surgery History of knee replacement S/P rotator cuff repair History of hysterectomy Family History Other Cancer Social History Smoking and tobacco/nicotine status: never used tobacco/nicotine Second hand smoke exposure: No Alcohol intake: never Substance/Drug Use: never Household members: spouse Housing: House Vitals/I&O/Wt Last Vital Signs Temp 97.7 F 07/28/24 11:22 Pulse 86 07/28/24 11:22 Resp 19 H 07/28/24 11:22 BP 112/66 07/28/24 11:22 Pulse Ox 97 07/28/24 13:38 O2 Del Method Nasal Cannula 07/28/24 11:22 O2 Flow Rate 1 07/28/24 09:20 FiO2 2 07/27/24 08:07 07/28/24 07/28/24 07/28/24 06:59 14:59 22:59 Intake Total 757.5 / 857.5 50 / 50 Balance 757.5 / 407.5 50 / 50 Weight last 48 hrs Weight 231 lb 9.6 oz Weight 228 lb 6.4 oz Weight 228 lb 6.4 oz Physical Exam 2 Narrative: GENERAL: The patient is alert and oriented times three. Not in any acute distress. Obese HEENT: No significant pallor, icterus or lymphadenopathy.Oral cavity: There are no mucous membrane lesions. NECK: Trachea appears to be central. No masses noted. No JVD or thyromegaly appreciated. RESPIRATORY: Chest is symmetrical. No intercostals muscle retraction or any accessory muscle activation. There is no chest wall tenderness. Breath sounds are heard bilaterally. No rales or rhonchi heard. No evidence of any consolidation. BREASTS: Deferred. HEART: The heart sounds are normal. No S3 or S4. No significant murmurs. No pericardial rub ABDOMEN: Vague diffuse tenderness in the lower abdomen. Bowel sounds are normally active. : Deferred. RECTAL: Deferred. LYMPHATIC: No lymphadenopathy noted in the neck. EXTREMITIES: No edema or cyanosis. No clubbing. MUSCULOSKELETAL: No acute joint deformities or swelling SKIN: There are no significant rashes or ecchymosis NEUROPSYCHIATRIC: The patient is alert and oriented x3. Appears to be in a good mood. No tremors or rigidity noted. Urinary Catheter Management: Cohen Latex: Cath Placed During This Visit: yes Reason for Continuing Indwelling Catheter: Accurate Measurement of Urinary Output in Critically Ill Patients Urinary Catheter Date of Insertion: 07/26/24 Urinary Catheter Time of Insertion: 05:00 Data 07/28/24 03:33 07/28/24 16:35 Other Labs: Laboratory Last Values WBC 8.11 10^3/uL (3.29-11.43) 07/28/24 03:33 RBC 4.33 10^6/uL (3.85-5.65) 07/28/24 03:33 Hgb 11.60 g/dL (11.27-16.99) 07/28/24 03:33 Hct 37.4 % (36-47) 07/28/24 03:33 MCV 86.4 fl (85-98) 07/28/24 03:33 MCH 26.8 pg (27-33) L 07/28/24 03:33 MCHC 31.0 g/dL (30-55) 07/28/24 03:33 RDW 13.8 % (12.1-15.1) 07/28/24 03:33 Plt Count 322 10^3/cmm (157-399) 07/28/24 03:33 MPV 9.8 fL (7.4-10.4) 07/28/24 03:33 Neut % (Auto) 73.2 % 07/28/24 03:33 Lymph % (Auto) 14.8 % 07/28/24 03:33 Hand % (Auto) 7.4 % 07/28/24 03:33 Eos % (Auto) 3.3 % 07/28/24 03:33 Baso % (Auto) 0.7 % 07/28/24 03:33 Neut # (Auto) 5.93 10^3/uL (1.8-7.7) 07/28/24 03:33 Lymph # (Auto) 1.2 10^3/uL (0.8-4.8) 07/28/24 03:33 Hand # (Auto) 0.6 10^3/uL (0.2-0.9) 07/28/24 03:33 Eos # (Auto) 0.3 10^3/uL (0.0-0.8) 07/28/24 03:33 Baso # (Auto) 0.1 10^3/uL (0.0-0.1) 07/28/24 03:33 Nucleated RBC % (auto) 0 % 07/28/24 03:33 Nucleated RBCs # 0.0 /100WBC 07/28/24 03:33 Sodium 134 mmol/L (136-145) L 07/28/24 16:35 Potassium 3.1 mmol/L (3.5-5.1) L 07/28/24 16:35 Chloride 95 mmol/L (98-107) L 07/28/24 16:35 Carbon Dioxide 23 mmol/L (22-29) 07/28/24 16:35 Anion Gap 19.1 (5-19) H 07/28/24 16:35 BUN 5 mg/dL (8-23) L 07/28/24 16:35 Creatinine 0.5 mg/dL (0.5-0.9) 07/28/24 16:35 GFR Calculation Not Reportable 07/28/24 16:35 Glucose 124 mg/dL (65-115) H 07/28/24 16:35 Calculated Osmolality 277 mOsm/kg (285-295) L 07/28/24 16:35 Lactic Acid 6.0 mmol/L (0.5-2.2) H* 07/25/24 16:41 Lactic Acid (Sepsis) 1.6 mmol/L (0.5-2.2) 07/25/24 23:00 Calcium 7.7 mg/dL (8.5-10.5) L 07/28/24 16:35 Phosphorus 2.7 mg/dL (2.5-4.5) 07/27/24 03:49 Magnesium 1.9 mg/dL (1.7-2.3) 07/28/24 16:35 Total Bilirubin 0.8 mg/dL (0.15-1.2) 07/27/24 03:49 AST 92 U/L (0-32) H 07/27/24 03:49 ALT 53 U/L (0-33) H 07/27/24 03:49 Alkaline Phosphatase 115 U/L (35-105) H 07/27/24 03:49 C-Reactive Protein 118.0 mg/L (0.0-4.9) H 07/26/24 04:16 NT-Pro-B Natriuret Pep 927 pg/mL (0-125) H 07/28/24 16:35 Total Protein 6.0 g/dL (6.6-8.7) L 07/27/24 03:49 Albumin 2.6 g/dL (3.5-5.2) L 07/27/24 03:49 Globulin 3.4 g/dL (1.3-4.6) 07/27/24 03:49 Lipase 34 U/L (13-60) 07/25/24 16:41 Urine Color Dark yellow (Yellow) A 07/25/24 21:21 Urine Appearance Turbid (CLEAR) A 07/25/24 21:21 Urine pH 5.5 (5-7) 07/25/24 21:21 Ur Specific [place] 1.039 (1.005-1.030) H 07/25/24 21:21 Urine Protein 2+ (Negative) A 07/25/24 21:21 Urine Glucose (UA) Negative (Normal) 07/25/24 21: Urine Ketones 2+ (Negative) H 07/25/24 21:21 Urine Blood 3+ (Negative) A 07/25/24 21:21 Urine Nitrate Positive (Negative) A 07/25/24 21: Urine Bilirubin 1+ (Negative) H 07/25/24 21: Urine Urobilinogen 2.0 mg/dL (Negative) H 07/25/24 21:21 Ur Leukocyte Esterase 3+ (Negative) A 07/25/24 21:21 Urine RBC 51-100 /hpf (0-2) H 07/25/24 21:21 Urine WBC >100 /hpf (0-5) H 07/25/24 21:21 Ur Squamous Epith Cells 11-20 /hpf (0-5) H 07/25/24 21:21 Amorphous Sediment Not Reportable 07/25/24 21: Urine Bacteria 4+ /hpf (NONE) H 07/25/24 21:21 Hyaline Casts 19.60 /lpf 07/25/24 21:21 EKG 1: My Interpretation: The EKG showed atrial flutter with rapid ventricular rate of [address] changes A&P Assessment and plan (1) Atrial fibrillation/flutter: Patient's heart rate is in the 150s and 160s. Blood pressure is around 110. Further control of the ventricular rate, I may give her a dose of digoxin 0.25 mg IV. The IV Cardizem may be continued. An echocardiogram may be helpful to evaluate the LV function and rule out any other pathology. We will do serial cardiac enzymes and EKGs to rule out any myocardial injury of which medically suspicion may be low. (2) Hypokalemia: This needs to be corrected. (3) Benign hypertension: Currently normotensive. (4) Pericolonic abscess: Patient is being treated with antibiotics and other conservative measures. Management as per the primary. Plan I may do a TSH, troponin T and an echocardiogram. May continue on the IV Cardizem for the time being. After review the results of the above, further recommendations will be made. Thank you for the opportunity to evaluate this patient and make these recommendations PDMP PDMP Reviewed: Not Reviewed Coding Level of Care Code 18325 Diagnoses Atrial fibrillation/flutter I48.91; I48.92 Hypokalemia E87.6 Benign hypertension I10 Pericolonic abscess K63.0
[2024-07-28] MEDS: dilTIAZem 100 MG in sodium chloride 0.9% (add-van) 100 ML IV (18:00)
[2024-07-28] MEDS: digoxin 250 mcg/ml INJ 2 mL IVP (19:33)
[2024-07-28 20:12] LABS: Troponin T (5th) Once 13 ng/L (0-10)
[2024-07-29] VITALS (10 sets, daily range): BP systolic 113–151; BP diastolic 63–99; PULSE 79–93; RESP 16–23; TEMP 36.5–36.7; O2SAT 92–99
[2024-07-29] MEDS: piperacillin-tazobactam 3.375 GM in sodium chloride 0.9% (plus) 50 ML IV ×4 (00:09→23:59)
[2024-07-29] MEDS: sodium chloride 0.9% 1,000 ML 125 ML IV ×2 (00:10→09:08)
--- NOTE | 2024-07-29 08:49 | P.PN_ITS ---
Subjective 2 Subjective: seen today pt went into afib on day of discharge therefore discharge was cancelled cardizen drip was started digoxxin was given patient was seen by cardiology she is rate controlled this morning and in sinus rhythm bnp 950 echo is pending abdominal pain is improved Vitals/I&O/Wt Last Vital Signs Temp 97.7 F 07/29/24 08:06 Pulse 93 07/29/24 08:06 Resp 20 H 07/29/24 08:06 BP 141/96 07/29/24 08:06 Pulse Ox 96 07/29/24 08:06 O2 Del Method Room Air 07/29/24 07:20 O2 Flow Rate 1 07/28/24 09:20 FiO2 2 07/27/24 08:07 07/28/24 07/29/24 07/29/24 22:59 06:59 14:59 Intake Total 1559.917 / 1609.917 892.834 / 2502.751 Balance 1559.917 / 1609.917 892.834 / 2502.751 Weight last 48 hrs Weight 104.071 kg Weight 105.052 kg Physical Exam 2 Narrative: laying in bed at this time, laying in bed appearing comfortable at this time. clear to auscultation b/l abdomen soft nontender no guarding no rebound tenderness present. S1, S2 Blood pressure stable at this point No active chest pain Doing well on room air rate controlled Urinary Catheter Management: Cohen Latex: Cath Placed During This Visit: yes Reason for Continuing Indwelling Catheter: Accurate Measurement of Urinary Output in Critically Ill Patients Urinary Catheter Date of Insertion: 07/26/24 Urinary Catheter Time of Insertion: 05:00 Data 07/28/24 03:33 07/28/24 16:35 A&P Assessment and plan (1) Intractable vomiting: (2) Irritable bowel syndrome: Qualifiers: Irritable bowel syndrome type: with constipation Qualified Code(s): K 58.1 - Irritable bowel syndrome with constipation (3) Diverticulitis: (4) Chronic neck and back pain: (5) Sepsis: Plan Sepsis related to diverticulitis with perforation Start Zosyn Sepsis criteria met with tachypnea tachycardia leukocytosis endorgan damage high lactic acid I will start sepsis protocol She received 1 L in the ER, will give her another 2liter Start Zosyn Blood cultures will be requested, please note patient has already received antibiotics in the ER General Surgery consulted N.p.o. Opioids administered Start D5 normal saline maintenance rate fluid History of hypertension does not take any medication at home: Stating that she does not check her blood pressure, does not follow-up with PCP until she really have to Monitor vitals for now No history of PCI PA or CHF Does not use oxygen at home, does not smoke or drink alcohol Full code N.p.o. DVT prophylaxis SCDs 07/26/2024 continue NPO status continue IV fluids,antibiotics gen surg is following family at bedside K low today, 3.6 order 40 K rider 07/27/2024 continue NPO status till clear from gen surg standpoint continue IV fluids, antibiotics gen surg following 07/29/2024 cardiology consulted, appreciate recommendations echo pending bnp elevated stop iv fluids continue IV zosyn while in hospital start metoprolol 25 bid hold off on eliquis will place on aspirin patient is ao x3. earlier this am she was more confused however when i saw her, she was appropriate and alert oriented x3 PDMP PDMP Reviewed: Not Reviewed Attestations 2 Medical Necessity Statement*: afib rvr, needs to stay for cardiac workup Diagnoses Intractable vomiting R11.10 Irritable bowel syndrome with constipation K58.1 Irritable bowel syndrome type: with constipation Diverticulitis K57.92 Chronic neck and back pain M54.2; M54.9; G89.29 Sepsis A41.9
[2024-07-29] MEDS: potassium chloride ER 20 mEq Tablet 40 MEQ PO (09:23)
--- NOTE | 2024-07-29 09:43 | PC.SOCIAL ---
IMM Update Pg. 2 of IMM updated and reviewed with patient. Copy provided at bedside.
--- NOTE | 2024-07-29 10:26 | P.PN_ITS ---
Subjective 2 Subjective: Patient's heart rate spontaneously converted to normal sinus rhythm. Currently she is off the IV Cardizem. Denies any chest pain or shortness of breath. Medications: Medication Review Details: Current Medications Acetaminophen (Acetaminophen 500 Mg Tablet) 500 mg PO Q4H PRN PRN Reason: fever Hydrocodone Bitart/Acetaminophen (Hydrocodone-Acetaminophen 5-325 Mg Tablet) 1 tab PO Q4H PRN PRN Reason: MILD AGITATION Last Admin: 07/28/24 19:58 Dose: 1 tab Albuterol/Ipratropium (Ipratropium-Albuterol 3 Ml Neb) 3 ml INHALATION Q6H.RESP PRN PRN Reason: SHORTNESS OF BREATH Hydromorphone HCl (Hydromorphone 0.5 Mg/0.5 Ml Inj) 0.4 mg IVP Q4H PRN PRN Reason: abd pain Last Admin: 07/28/24 18:01 Dose: 0.4 mg Piperacillin Sod/Tazobactam (Sod 3.375 gm/ Sodium Chloride) 50 mls @ 12.5 mls/hr IV Q8H NATALIE Last Admin: 07/29/24 09:08 Dose: 12.5 mls/hr Diltiazem HCl 100 mg/ Sodium (Chloride) 100 mls @ 0 mls/hr IV .Q0M NATALIE; Protocol Last Titration: 07/29/24 01:39 Dose: 0 mg/hr, 0 mls/hr Ondansetron HCl (Ondansetron 2 Mg/Ml Sdv 2 Ml) 4 mg IVP Q6H PRN PRN Reason: NAUSEA AND VOMITING Vitals/I&O/Wt Last Vital Signs Temp 97.7 F 07/29/24 08:06 Pulse 93 07/29/24 08:06 Resp 20 H 07/29/24 08:06 BP 141/96 07/29/24 08:06 Pulse Ox 96 07/29/24 08:06 O2 Del Method Room Air 07/29/24 07:20 O2 Flow Rate 1 07/28/24 09:20 FiO2 2 07/27/24 08:07 07/28/24 07/29/24 07/29/24 22:59 06:59 14:59 Intake Total 1559.917 / 1609.917 892.834 / 2502.751 1001 / 1001 Balance 1559.917 / 1609.917 892.834 / 2502.751 1001 / 1001 Weight last 48 hrs Weight 229 lb 7 oz Weight 231 lb 9.6 oz Physical Exam 2 Narrative: GENERAL: The patient is alert and oriented times three. Not in any acute distress. Obese HEENT: No significant pallor, icterus or lymphadenopathy.Oral cavity: There are no mucous membrane lesions. NECK: Trachea appears to be central. No masses noted. No JVD or thyromegaly appreciated. RESPIRATORY: Chest is symmetrical. No intercostals muscle retraction or any accessory muscle activation. There is no chest wall tenderness. Breath sounds are heard bilaterally. No rales or rhonchi heard. No evidence of any consolidation. BREASTS: Deferred. HEART: The heart sounds are normal. No S3 or S4. No significant murmurs. No pericardial rub ABDOMEN: Vague diffuse tenderness in the lower abdomen. Bowel sounds are normally active. : Deferred. RECTAL: Deferred. LYMPHATIC: No lymphadenopathy noted in the neck. EXTREMITIES: No edema or cyanosis. No clubbing. MUSCULOSKELETAL: No acute joint deformities or swelling SKIN: There are no significant rashes or ecchymosis NEUROPSYCHIATRIC: The patient is alert and oriented x3. Appears to be in a good mood. No tremors or rigidity noted. Urinary Catheter Management: Cohen Latex: Cath Placed During This Visit: yes Reason for Continuing Indwelling Catheter: Accurate Measurement of Urinary Output in Critically Ill Patients Urinary Catheter Date of Insertion: 07/26/24 Urinary Catheter Time of Insertion: 05:00 Data 07/28/24 03:33 07/28/24 16:35 Other Labs: Laboratory Last Values WBC 8.11 10^3/uL (3.29-11.43) 07/28/24 03:33 RBC 4.33 10^6/uL (3.85-5.65) 07/28/24 03:33 Hgb 11.60 g/dL (11.27-16.99) 07/28/24 03:33 Hct 37.4 % (36-47) 07/28/24 03:33 MCV 86.4 fl (85-98) 07/28/24 03:33 MCH 26.8 pg (27-33) L 07/28/24 03:33 MCHC 31.0 g/dL (30-55) 07/28/24 03:33 RDW 13.8 % (12.1-15.1) 07/28/24 03:33 Plt Count 322 10^3/cmm (157-399) 07/28/24 03:33 MPV 9.8 fL (7.4-10.4) 07/28/24 03:33 Neut % (Auto) 73.2 % 07/28/24 03:33 Lymph % (Auto) 14.8 % 07/28/24 03:33 [place] % (Auto) 7.4 % 07/28/24 03:33 Eos % (Auto) 3.3 % 07/28/24 03:33 Baso % (Auto) 0.7 % 07/28/24 03:33 Neut # (Auto) 5.93 10^3/uL (1.8-7.7) 07/28/24 03:33 Lymph # (Auto) 1.2 10^3/uL (0.8-4.8) 07/28/24 03:33 [place] # (Auto) 0.6 10^3/uL (0.2-0.9) 07/28/24 03:33 Eos # (Auto) 0.3 10^3/uL (0.0-0.8) 07/28/24 03:33 Baso # (Auto) 0.1 10^3/uL (0.0-0.1) 07/28/24 03:33 Nucleated RBC % (auto) 0 % 07/28/24 03:33 Nucleated RBCs # 0.0 /100WBC 07/28/24 03:33 Sodium 134 mmol/L (136-145) L 07/28/24 16:35 Potassium 3.1 mmol/L (3.5-5.1) L 07/28/24 16:35 Chloride 95 mmol/L (98-107) L 07/28/24 16:35 Carbon Dioxide 23 mmol/L (22-29) 07/28/24 16:35 Anion Gap 19.1 (5-19) H 07/28/24 16:35 BUN 5 mg/dL (8-23) L 07/28/24 16:35 Creatinine 0.5 mg/dL (0.5-0.9) 07/28/24 16:35 GFR Calculation Not Reportable 07/28/24 16:35 Glucose 124 mg/dL (65-115) H 07/28/24 16:35 Calculated Osmolality 277 mOsm/kg (285-295) L 07/28/24 16:35 Lactic Acid 6.0 mmol/L (0.5-2.2) H* 07/25/24 16:41 Lactic Acid (Sepsis) 1.6 mmol/L (0.5-2.2) 07/25/24 23:00 Calcium 7.7 mg/dL (8.5-10.5) L 07/28/24 16:35 Phosphorus 2.7 mg/dL (2.5-4.5) 07/27/24 03:49 Magnesium 1.9 mg/dL (1.7-2.3) 07/28/24 16:35 Total Bilirubin 0.8 mg/dL (0.15-1.2) 07/27/24 03:49 AST 92 U/L (0-32) H 07/27/24 03:49 ALT 53 U/L (0-33) H 07/27/24 03:49 Alkaline Phosphatase 115 U/L (35-105) H 07/27/24 03:49 Troponin T 5th Gen ng/L 13 ng/L (0-10) H 07/28/24 19:47 C-Reactive Protein 118.0 mg/L (0.0-4.9) H 07/26/24 04:16 NT-Pro-B Natriuret Pep 927 pg/mL (0-125) H 07/28/24 16:35 Total Protein 6.0 g/dL (6.6-8.7) L 07/27/24 03:49 Albumin 2.6 g/dL (3.5-5.2) L 07/27/24 03:49 Globulin 3.4 g/dL (1.3-4.6) 07/27/24 03:49 Lipase 34 U/L (13-60) 07/25/24 16:41 TSH 6.90 uIU/mL (0.27-4.20) H 07/28/24 19:47 Urine Color Dark yellow (Yellow) A 07/25/24 21:21 Urine Appearance Turbid (CLEAR) A 07/25/24 21:21 Urine pH 5.5 (5-7) 07/25/24 21:21 Ur Specific [place] 1.039 (1.005-1.030) H 07/25/24 21:21 Urine Protein 2+ (Negative) A 07/25/24 21:21 Urine Glucose (UA) Negative (Normal) 07/25/24 21:21 Urine Ketones 2+ (Negative) H 07/25/24 21:21 Urine Blood 3+ (Negative) A 07/25/24 21: Urine Nitrate Positive (Negative) A 07/25/24 21: Urine Bilirubin 1+ (Negative) H 07/25/24 21:21 Urine Urobilinogen 2.0 mg/dL (Negative) H 07/25/24 21:21 Ur Leukocyte Esterase 3+ (Negative) A 07/25/24 21: Urine RBC 51-100 /hpf (0-2) H 07/25/24 21:21 Urine WBC >100 /hpf (0-5) H 07/25/24 21:21 Ur Squamous Epith Cells 11-20 /hpf (0-5) H 07/25/24 21:21 Amorphous Sediment Not Reportable 07/25/24 21:21 Urine Bacteria 4+ /hpf (NONE) H 07/25/24 21:21 Hyaline Casts 19.60 /lpf 07/25/24 21:21 C. difficile (PCR) Negative (Negative) 07/29/24 09:00 A&P Assessment and plan (1) Atrial fibrillation/flutter: I may start the patient on metoprolol 25 mg p.o. twice daily. Discussed with Dr. Rogers about starting her on oral anticoagulation. Because of the sigmoid perforation, in anticipation of her requiring emergency surgery, it was thought to be appropriate not to start on oral anticoagulation. May keep her on aspirin 325 mg p.o. daily (2) Hypokalemia: The potassium is still low. She is on supplements. Possible related to the diarrhea. (3) Benign hypertension: Currently normotensive. (4) Pericolonic abscess: Patient is being treated with antibiotics and other conservative measures. Management as per the primary. Plan The troponin T was negative for myocardial Alex. Elevated BNP most likely from the atrial fibrillation rapid ventricular rate. If the patient continues to remain stable, may be discharged home from a cardiac standpoint. [facility]ointment [facility] in 1-2 weeks with a nurse practitioner I may see her in the office in a month PDMP PDMP Reviewed: Not Reviewed Attestations 2 Medical Necessity Statement*: Disposition as per the primary Coding Level of Care Code 25230 Diagnoses Atrial fibrillation/flutter I48.91; I48.92 Hypokalemia E87.6 Benign hypertension I10 Pericolonic abscess K63.0
[2024-07-29 10:42] LABS: C.Diff PCR (Lab) NEGATIVE (Negative)
[2024-07-29] MEDS: metoprolol tartrate 25 mg Tablet PO ×2 (11:38→20:31)
[2024-07-29] MEDS: aspirin 81 mg EC Tablet PO (12:24)
[2024-07-30] VITALS (10 sets, daily range): BP systolic 113–126; BP diastolic 67–82; PULSE 76–99; RESP 16–23; TEMP 36.6–37; O2SAT 95–99
[2024-07-30 05:12] LABS: Basophils # 0.1 10^3/uL (0.0-0.1); Basophils % 1.1 %; Eosinophils # 0.2 10^3/uL (0.0-0.8); Hematocrit 35.2 % (36-47); Lymphocytes # 1.2 10^3/uL (0.8-4.8); Lymphocytes % 24.6 %; Mean Corpuscular HGB Conc 32.4 g/dL (30-55); Mean Corpuscular Hemoglobin 27.2 pg (27-33); Mean Platelet Volume 9.5 fL (7.4-10.4); Monocytes # 0.5 10^3/uL (0.2-0.9); Monocytes % 9.9 %; Neutrophils # 2.83 10^3/uL (1.8-7.7); Neutrophils % 59.3 %; Nucleated Red Blood Cells % 0 %; Platelet Count 336 10^3/cmm (157-399); Red Blood Count 4.19 10^6/uL (3.85-5.65); Red Cell Distribution Width 13.8 % (12.1-15.1); White Blood Count 4.76 10^3/uL (3.29-11.43)
[2024-07-30 05:30] LABS: Anion Gap 12.9 (5-19); Blood Urea Nitrogen 4 mg/dL (8-23); Calcium 7.6 mg/dL (8.5-10.5); Carbon Dioxide 26 mmol/L (22-29); Chloride 100 mmol/L (98-107); Glucose 104 mg/dL (65-115); Osmolality Calculated 279 mOsm/kg (285-295); Sodium 136 mmol/L (136-145)
[2024-07-30 05:46] LABS: Potassium 2.9 mmol/L (3.5-5.1)
[2024-07-30] MEDS: potassium chloride ER 20 mEq Tablet 40 MEQ PO (06:34)
[2024-07-30] MEDS: lidocaine 1% 5 ML in potassium chloride premix 100 ML 26.25 ML IV (06:36)
[2024-07-30] MEDS: metoprolol tartrate 25 mg Tablet PO ×2 (08:30→20:34)
[2024-07-30] MEDS: piperacillin-tazobactam 3.375 GM in sodium chloride 0.9% (plus) 50 ML IV ×3 (08:30→23:36)
[2024-07-30] MEDS: aspirin 81 mg EC Tablet PO (08:30)
--- NOTE | 2024-07-30 10:32 | P.PN_ITS ---
Subjective 2 Subjective: Patient doing well. Currently in sinus rhythm. Vitals/I&O/Wt Last Vital Signs Temp 98.3 F 07/30/24 07:25 Pulse 82 07/30/24 07:28 Resp 16 07/30/24 07:28 BP 126/70 07/30/24 07:25 Pulse Ox 95 07/30/24 07:28 O2 Del Method Room Air 07/30/24 07:28 O2 Flow Rate 1 07/28/24 09:20 FiO2 2 07/27/24 08:07 07/29/24 07/30/24 07/30/24 22:59 06:59 14:59 Intake Total 2016 Output Total Balance 2011 Weight last 48 hrs Weight 232 lb 8 oz Weight 229 lb 7 oz Physical Exam 2 Narrative: GENERAL: Patient is alert, awake and oriented x3. [] NECK: No jugular vein distension. [] HEENT: No cyanosis. No icterus. No pallor. [] HEART: Regular S1 and S2. No murmur, rub or gallop. [] LUNGS: Clear to auscultate bilaterally. [] CENTRAL NERVOUS SYSTEM: Grossly nonfocal. [] EXTREMITIES: Lower extremities with no edema bilaterally. Urinary Catheter Management: Cohen Latex: Cath Placed During This Visit: yes Reason for Continuing Indwelling Catheter: Accurate Measurement of Urinary Output in Critically Ill Patients Urinary Catheter Date of Insertion: 07/26/24 Urinary Catheter Time of Insertion: 05:00 Data 07/30/24 04:48 07/30/24 04:48 A&P Assessment and plan (1) Atrial fibrillation/flutter: (2) Hypokalemia: (3) Benign hypertension: (4) Pericolonic abscess: Plan Patient staying in sinus rhythm. Continue aspirin and metoprolol. Thank you for involving us with care of this patient. Please call with questions PDMP PDMP Reviewed: Not Reviewed Attestations 2 Medical Necessity Statement*: Care expected to cross 2 midnights. Coding Level of Care Code Acute Code for [facility] Fwd Diagnoses Atrial fibrillation/flutter I48.91; I48.92 Hypokalemia E87.6 Benign hypertension I10 Pericolonic abscess K63.0
--- NOTE | 2024-07-30 11:49 | PC.NURSE ---
Fecal and urine incontinence Pt has had multiple bms and urine, she is soaked in bed, pt is reminded to use her call light.Pt stated, i forgot. i'm sorry. bebeto cares provided.
--- NOTE | 2024-07-30 15:01 | P.PN_ITS ---
Subjective 2 Subjective: States she is feeling better. Abdominal pain has improved significantly. States she is no longer having diarrhea. Nausea has improved as well. Medications: Reviewed: Yes Vitals/I&O/Wt Last Vital Signs Temp 97.8 F 07/30/24 11:22 Pulse 76 07/30/24 11:22 Resp 21 H 07/30/24 11:22 BP 120/67 07/30/24 11:22 Pulse Ox 98 07/30/24 11:22 O2 Del Method Room Air 07/30/24 11:22 O2 Flow Rate 1 07/28/24 09:20 FiO2 2 07/27/24 08:07 07/30/24 07/30/24 07/30/24 06:59 14:59 22:59 Intake Total 2066 391 / 391 Output Total Balance 2061 388 / 388 Weight last 48 hrs Weight 232 lb 8 oz Weight 229 lb 7 oz Physical Exam 2 Narrative: General: Cooperative patient in no apparent distress. Well developed. HEENT: Normocephalic, Atraumatic. External ears normal. Nasal passages patent without drainage. MMM. Heart: RRR. Resp: LCTA. No respiratory distress, no use of accessory muscles. Abd: Soft, non-tender. Non-distended. Extremities: No edema. Skin: No rash or lesions on exposed areas. Urinary Catheter Management: Cohen Latex: Cath Placed During This Visit: yes Reason for Continuing Indwelling Catheter: Accurate Measurement of Urinary Output in Critically Ill Patients Urinary Catheter Date of Insertion: 07/26/24 Urinary Catheter Time of Insertion: 05:00 Data 07/30/24 04:48 07/30/24 04:48 A&P Assessment and plan (1) Intractable vomiting: (2) Irritable bowel syndrome: Qualifiers: Irritable bowel syndrome type: with constipation Qualified Code(s): K 58.1 - Irritable bowel syndrome with constipation (3) Diverticulitis: (4) Chronic neck and back pain: (5) Sepsis: Plan Sepsis related to diverticulitis with perforation Start Zosyn Sepsis criteria met with tachypnea tachycardia leukocytosis endorgan damage high lactic acid I will start sepsis protocol She received 1 L in the ER, will give her another 2liter Start Zosyn Blood cultures will be requested, please note patient has already received antibiotics in the ER General Surgery consulted N.p.o. Opioids administered Start D5 normal saline maintenance rate fluid History of hypertension does not take any medication at home: Stating that she does not check her blood pressure, does not follow-up with PCP until she really have to Monitor vitals for now No history of PCI ND or CHF Does not use oxygen at home, does not smoke or drink alcohol Full code N.p.o. DVT prophylaxis SCDs 07/26/2024 continue NPO status continue IV fluids,antibiotics gen surg is following family at bedside K low today, 3.6 order 40 K rider 07/27/2024 continue NPO status till clear from gen surg standpoint continue IV fluids, antibiotics gen surg following 07/29/2024 cardiology consulted, appreciate recommendations echo pending bnp elevated stop iv fluids continue IV zosyn while in hospital start metoprolol 25 bid hold off on eliquis will place on aspirin patient is ao x3. earlier this am she was more confused however when i saw her, she was appropriate and alert oriented x3 07/30/2024 Tolerating clear liquid diet well. No longer having any diarrhea or abdominal pain. Nausea has been well-controlled. Will advance diet to a GI soft and see how she tolerates. May have to backed this off if she has return of symptoms. Will continue on the IV antibiotics for now. Antiemetics as needed. Recheck labs in the a.m. If she remains stable, tolerating diet well, and no further symptoms, we can consider discharge possibly tomorrow on continue course of antibiotics. PDMP PDMP Reviewed: Not Reviewed Attestations 2 Medical Necessity Statement*: Will need continued inpatient care and monitoring for diverticulitis with perforation, sepsis, diet advancement, IV antibiotics, discharge planning. Coding Level of Care Code Acute Code for [facility] Fwd Moderate MDM includes number and complexity of problems actively addressed during encounter, amount and/or complexity of data reviewed/ordered and described risk of complication, morbidity or mortality of management as documented Diagnoses Intractable vomiting R11.10 Irritable bowel syndrome with constipation K58.1 Irritable bowel syndrome type: with constipation Diverticulitis K57.92 Chronic neck and back pain M54.2; M54.9; G89.29 Sepsis A41.9
[2024-07-30] MEDS: HYDROcodone-acetaminophen 5-325 mg Tablet 1 TAB PO (20:34)
[2024-07-31 03:50] VITALS: BP 131/77; PULSE 79; RESP 20; TEMP 36.7; O2SAT 98
[2024-07-31 07:32] VITALS: BP 123/66; PULSE 80; RESP 18; TEMP 36.6; O2SAT 98
[2024-07-31 09:25] VITALS: PULSE 85; RESP 18; O2SAT 97
--- NOTE | 2024-07-31 09:57 | P.PN_ITS ---
Subjective 2 Subjective: Patient doing well. Heart rate controlled. Vitals/I&O/Wt Last Vital Signs Temp 97.9 F 07/31/24 07:32 Pulse 85 07/31/24 09:25 Resp 18 07/31/24 09:25 BP 123/66 07/31/24 07:32 Pulse Ox 97 07/31/24 09:25 O2 Del Method Room Air 07/31/24 09:25 O2 Flow Rate 1 07/28/24 09:20 FiO2 2 07/27/24 08:07 07/30/24 07/31/24 07/31/24 22:59 06:59 14:59 Intake Total 101.416 / 492.416 50 / 542.416 Balance 101.416 / 489.416 50 / 539.416 Weight last 48 hrs Weight 231 lb 14.4 oz Weight 232 lb 8 oz Physical Exam 2 Narrative: GENERAL: Patient is alert, awake and oriented x3. [] NECK: No jugular vein distension. [] HEENT: No cyanosis. No icterus. No pallor. [] HEART: Regular S1 and S2. No murmur, rub or gallop. [] LUNGS: Clear to auscultate bilaterally. [] CENTRAL NERVOUS SYSTEM: Grossly nonfocal. [] EXTREMITIES: Lower extremities with no edema bilaterally. Urinary Catheter Management: Cohen Latex: Cath Placed During This Visit: yes Reason for Continuing Indwelling Catheter: Accurate Measurement of Urinary Output in Critically Ill Patients Urinary Catheter Date of Insertion: 07/26/24 Urinary Catheter Time of Insertion: 05:00 Data 07/31/24 12:24 07/31/24 12:24 Micro: Microbiology 07/26/24 00:45 Blood Culture - Final Blood NO GROWTH AFTER 5 DAYS 07/26/24 00:41 Blood Culture - Final Blood NO GROWTH AFTER 5 DAYS A&P Assessment and plan (1) Atrial fibrillation/flutter: (2) Hypokalemia: (3) Benign hypertension: (4) Pericolonic abscess: Plan Patient staying in sinus rhythm. Continue aspirin and metoprolol. Thank you for involving us with care of this patient. Please call with questions PDMP PDMP Reviewed: Not Reviewed Attestations 2 Medical Necessity Statement*: Care expected to cross 2 midnights. Coding Level of Care Code Acute Code for [facility] Fw Diagnoses Atrial fibrillation/flutter I48.91; I48.92 Hypokalemia E87.6 Benign hypertension I10 Pericolonic abscess K63.0
[2024-07-31] MEDS: piperacillin-tazobactam 3.375 GM in sodium chloride 0.9% (plus) 50 ML IV (10:00)
[2024-07-31] MEDS: metoprolol tartrate 25 mg Tablet PO (10:58)
[2024-07-31] MEDS: aspirin 81 mg EC Tablet PO (10:58)
[2024-07-31 12:35] LABS: Basophils % 0.4 %; Eosinophils # 0.1 10^3/uL (0.0-0.8); Eosinophils % 0.9 %; Mean Corpuscular HGB Conc 32.3 g/dL (30-55); Mean Corpuscular Hemoglobin 26.9 pg (27-33); Mean Corpuscular Volume 83.3 fl (85-98); Mean Platelet Volume 9.2 fL (7.4-10.4); Monocytes # 0.4 10^3/uL (0.2-0.9); Monocytes % 4.7 %; Neutrophils # 7.51 10^3/uL (1.8-7.7); Neutrophils % 82.1 %; Nucleated Red Blood Cells % 0 %; Platelet Count 327 10^3/cmm (157-399); Red Blood Count 4.68 10^6/uL (3.85-5.65); Red Cell Distribution Width 14.2 % (12.1-15.1); White Blood Count 9.15 10^3/uL (3.29-11.43)
[2024-07-31 12:55] LABS: Alanine Aminotransferase 33 U/L (0-33); Alkaline Phosphatase 124 U/L (35-105); Anion Gap 16.6 (5-19); Aspartate Amino Transferase 45 U/L (0-32); Blood Urea Nitrogen 3 mg/dL (8-23); C Reactive Protein 23.5 mg/L (0.0-4.9); Calcium 7.7 mg/dL (8.5-10.5); Carbon Dioxide 24 mmol/L (22-29); Chloride 99 mmol/L (98-107); Glucose 95 mg/dL (65-115); Osmolality Calculated 278 mOsm/kg (285-295); Potassium 3.6 mmol/L (3.5-5.1); Sodium 136 mmol/L (136-145); Total Bilirubin 0.4 mg/dL (0.15-1.2)
--- NOTE | 2024-07-31 13:43 | P.DS_ITS ---
Discharge Providers Date of Admission: 07/25/24 20:26 Date of Discharge: July 31, 2024 Attending Provider at Admission: Frederick Sanchez MD Attending Provider at Discharge: Ricco Garcia DO Primary Care Provider: DOMINIC Frost Diagnoses at Discharge Discharge Diagnosis (1) Atrial fibrillation/flutter: Status: Acute (2) Hypokalemia: Status: Acute (3) Benign hypertension: Status: Acute (4) Pericolonic abscess: Status: Acute Reason for Visit Reason for Visit: abd pain Brief History: Hospital Course Hospital Course Patient was admitted for intractable nausea vomiting abdominal pain. She was diagnosed with sepsis related to diverticulitis with perforation. There is localized contained perforation new compared to prior exam. Patient was kept n.p.o. and on IV antibiotics. Serial abdominal exams were performed. She was seen by general surgery daily while in the hospital. Abdominal examination has improved, pain is improved, abdomen is much more soft with mild soreness at bilateral lower quadrants. Overall she feels better. She is tolerating clear liquids. General surgery has cleared patient for discharge home with clear liquid diet and advance as tolerated over next 2 to 3 days. Discussed all the above with patient and she demonstrated understanding of the plan. Prior to discharge she began to have more diarrhea and further emesis. Again started having abdominal pain. She was kept on clear liquid diet for an a dditional couple of days, with administration of IV antibiotics. her abdominal pain again began to lessen and she requested to have something solid to eat. She started on GI soft diet and was able to tolerate well. Diarrhea improved over these next few days and she ready to discharge home with oral antibiotics and follow up appointments arranged. Physical Exam Narrative: General: Cooperative patient in no apparent distress. Well developed. HEENT: Normocephalic, Atraumatic. External ears normal. Nasal passages patent without drainage. MMM. Heart: RRR. Resp: LCTA. No respiratory distress, no use of accessory muscles. Abd: Soft, non-tender. Non-distended. Extremities: No edema. Skin: No rash or lesions on exposed areas Urinary Catheter Management: Cohen Latex: Cath Placed During This Visit: yes Reason for Continuing Indwelling Catheter: Accurate Measurement of Urinary Output in Critically Ill Patients Urinary Catheter Date of Insertion: 07/26/24 Urinary Catheter Time of Insertion: 05:00 Discharge Data Studies Completed and Pending Completed Studies During Hospitalization Category Date Time Status CT abdomen pelvis w con* [id number] Stat Cat Scan 07/25/24 16:33 Completed CV. echo complete* [id number] Routine Ultrasound 07/28/24 15:53 Completed Pending at discharge Category Date Time Status Urine Culture Stat Lab 07/29/24 10:06 Uncollected Radiology Impressions Abdomen/Pelvis CT 07/25/24 16:33 IMPRESSION: 1. Sigmoid colon diverticulitis with a localized collection of air and fluid measuring up to at least 6.5 cm seen along the mid sigmoid colon likely reflecting a localized contained perforation, new compared to prior exam. 2. Air in the urinary bladder may be iatrogenic. ADDENDUM: 07/25/242047 THIS REPORT CONTAINS FINDINGS THAT MAY BE CRITICAL TO PATIENT CARE. The findings were verbally communicated via telephone conference with WILMAN COPE at 8:46 PM CDT on 07/25/2024. The findings were acknowledged and understood. Laboratory Results WBC 9.15 10^3/uL (3.29-11.43) 07/31/24 12:24 RBC 4.68 10^6/uL (3.85-5.65) 07/31/24 12:24 Hgb 12.60 g/dL (11.27-16.99) 07/31/24 12:24 Hct 39.0 % (36-47) 07/31/24 12:24 MCV 83.3 fl (85-98) L 07/31/24 12:24 MCH 26.9 pg (27-33) L 07/31/24 12:24 MCHC 32.3 g/dL (30-55) 07/31/24 12:24 RDW 14.2 % (12.1-15.1) 07/31/24 12:24 Plt Count 327 10^3/cmm (157-399) 07/31/24 12:24 MPV 9.2 fL (7.4-10.4) 07/31/24 12:24 Neut % (Auto) 82.1 % 07/31/24 12:24 Lymph % (Auto) 11.0 % 07/31/24 12:24 Scurry % (Auto) 4.7 % 07/31/24 12:24 Eos % (Auto) 0.9 % 07/31/24 12:24 Baso % (Auto) 0.4 % 07/31/24 12:24 Neut # (Auto) 7.51 10^3/uL (1.8-7.7) 07/31/24 12:24 Lymph # (Auto) 1.0 10^3/uL (0.8-4.8) 07/31/24 12:24 Scurry # (Auto) 0.4 10^3/uL (0.2-0.9) 07/31/24 12:24 Eos # (Auto) 0.1 10^3/uL (0.0-0.8) 07/31/24 12:24 Baso # (Auto) 0.0 10^3/uL (0.0-0.1) 07/31/24 12:24 Nucleated RBC % (auto) 0 % 07/31/24 12:24 Nucleated RBCs # 0.0 /100WBC 07/31/24 12:24 Sodium 136 mmol/L (136-145) 07/31/24 12:24 Potassium 3.6 mmol/L (3.5-5.1) 07/31/24 12:24 Chloride 99 mmol/L (98-107) 07/31/24 12:24 Carbon Dioxide 24 mmol/L (22-29) 07/31/24 12:24 Anion Gap 16.6 (5-19) 07/31/24 12:24 BUN 3 mg/dL (8-23) L 07/31/24 12:24 Creatinine 0.5 mg/dL (0.5-0.9) 07/31/24 12:24 GFR Calculation Not Reportable 07/31/24 12:24 Glucose 95 mg/dL (65-115) 07/31/24 12:24 Calculated Osmolality 278 mOsm/kg (285-295) L 07/31/24 12:24 Lactic Acid 6.0 mmol/L (0.5-2.2) H* 07/25/24 16:41 Lactic Acid (Sepsis) 1.6 mmol/L (0.5-2.2) 07/25/24 23:00 Calcium 7.7 mg/dL (8.5-10.5) L 07/31/24 12:24 Phosphorus 2.7 mg/dL (2.5-4.5) 07/27/24 03:49 Magnesium 2.0 mg/dL (1.7-2.3) 07/30/24 04:48 Total Bilirubin 0.4 mg/dL (0.15-1.2) 07/31/24 12:24 AST 45 U/L (0-32) H 07/31/24 12:24 ALT 33 U/L (0-33) 07/31/24 12:24 Alkaline Phosphatase 124 U/L (35-105) H 07/31/24 12:24 Troponin T 5th Gen ng/L 13 ng/L (0-10) H 07/28/24 19:47 C-Reactive Protein 23.5 mg/L (0.0-4.9) H 07/31/24 12:24 NT-Pro-B Natriuret Pep 927 pg/mL (0-125) H 07/28/24 16:35 Total Protein 6.0 g/dL (6.6-8.7) L 07/31/24 12:24 Albumin 3.0 g/dL (3.5-5.2) L 07/31/24 12:24 Globulin 3.0 g/dL (1.3-4.6) 07/31/24 12:24 Lipase 34 U/L (13-60) 07/25/24 16:41 TSH 6.90 uIU/mL (0.27-4.20) H 07/28/24 19:47 Urine Color Dark yellow (Yellow) A 07/25/24 21:21 Urine Appearance Turbid (CLEAR) A 07/25/24 21:21 Urine pH 5.5 (5-7) 07/25/24 21:21 Ur Specific [place] 1.039 (1.005-1.030) H 07/25/24 21:21 Urine Protein 2+ (Negative) A 07/25/24 21:21 Urine Glucose (UA) Negative (Normal) 07/25/24 21:21 Urine Ketones 2+ (Negative) H 07/25/24 21:21 Urine Blood 3+ (Negative) A 07/25/24 21:21 Urine Nitrate Positive (Negative) A 07/25/24 21:21 Urine Bilirubin 1+ (Negative) H 07/25/24 21:21 Urine Urobilinogen 2.0 mg/dL (Negative) H 07/25/24 21:21 Ur Leukocyte Esterase 3+ (Negative) A 07/25/24 21:21 Urine RBC 51-100 /hpf (0-2) H 07/25/24 21:21 Urine WBC >100 /hpf (0-5) H 07/25/24 21:21 Ur Squamous Epith Cells 11-20 /hpf (0-5) H 07/25/24 21:21 Amorphous Sediment Not Reportable 07/25/24 21:21 Urine Bacteria 4+ /hpf (NONE) H 07/25/24 21:21 Hyaline Casts 19.60 /lpf 07/25/24 21:21 C. difficile (PCR) Negative (Negative) 07/29/24 09:00 Vitals Last Vital Signs Temp 97.9 F 07/31/24 07:32 Pulse 85 07/31/24 09:25 Resp 18 07/31/24 09:25 BP 123/66 07/31/24 07:32 Pulse Ox 97 07/31/24 09:25 O2 Del Method Room Air 07/31/24 09:25 O2 Flow Rate 1 07/28/24 09:20 FiO2 2 07/27/24 08:07 Discharge Plan Discharge Patient Disposition: Home Condition: Stable Prescriptions: New amoxicillin-pot clavulanate 875-125 mg tablet 1 tab PO BID 14 Days Qty: 28 0RF aspirin 81 mg Tablet,Delayed Release (Dr/Ec) 81 mg PO DAILY Qty: 30 1RF metoprolol tartrate 25 mg Tablet 25 mg PO BID@0900,2100 Qty: 60 1RF Discharge Orders: Discharge Order (Routine); Ordered 07/31/24 Ordered By: Ricco Garcia Referrals: Kane Valenzuela MD [Physician] - 08/08/24 11:20 am (Please follow up with Dr Valenzuela on august 08 at 11:20am) Emanuel Lucia FNP [Primary Care Provider] - 08/05/24 9:00 am Discharge Diet: Advance as tolerated and Clear Liquid Discharge Activity: Resume usual activity Patient Instructions: Diverticulitis (DC), Opioid Safety Activity Restrictions/Additional Instructions: Return to hospital if you experience worsening abdominal pain, nausea, vomiting, diarrhea, fever or any other symptoms. Discharge Attestations Time Spent in Discharge Care*: less than 30 min Quality Metrics Clinical Quality Measures [ No reported AMI, CVA or VTE this stay] Coding Level of Care Code Acute Code for Chg Fwd Total time (in minutes) for Discharge: 25 Diagnoses Atrial fibrillation/flutter I48.91; I48.92 Hypokalemia E87.6 Benign hypertension I10 Pericolonic abscess K63.0
--- NOTE | 2024-07-31 14:52 | PC.NURSE ---
notofied family pt's family [facility] in [facility] notified for pt's discharge today. she said she will be the one to pick her up. not sure about time yet.
[2024-07-31 15:36] VITALS: BP 138/90; PULSE 92; RESP 18; TEMP 36.5; O2SAT 97
--- NOTE | 2024-07-31 15:50 | PC.NURSE ---
Family wants new Rx to send to [facility] instead in [place].
[2024-07-31 15:51] VITALS: BP 138/90; PULSE 92; RESP 18; TEMP 36.5; O2SAT 97
--- NOTE | 2024-07-31 18:18 | PC.NURSE ---
notified family. called [facility] in [facility] that they forgot to bring pt's purse/bag. attempted to call twice, no answer, this nurse left a voicemail.
== END 2024-07-31 15:59 | disposition home or self-care (01) | DRG 871 ==
LOC: ER 20:28 → ICU 21:55 → CSU 07-26 20:45
PROVIDERS: Internal Medicine; Internal Medicine Cardiovascular Disease; Physician Assistant; Admitting Provider Internal Medicine; Emergency Provider Emergency Medicine; PCP Registered Nurse; Visit Provider Family Medicine
DX: A41.9 Sepsis, unspecified organism (principal); K65.1 Peritoneal abscess; K57.20 Diverticulitis of large intestine with perforation and abscess without bleeding; I48.92 Unspecified atrial flutter; E87.21 Acute metabolic acidosis; R65.20 Severe sepsis without septic shock; I95.9 Hypotension, unspecified; G89.29 Other chronic pain; M54.9 Dorsalgia, unspecified; I10 Essential (primary) hypertension; M43.12 Spondylolisthesis, cervical region; E87.6 Hypokalemia; E86.0 Dehydration; Z96.659 Presence of unspecified artificial knee joint; K58.1 Irritable bowel syndrome with constipation; I48.91 Unspecified atrial fibrillation; R41.0 Disorientation, unspecified; Z90.49 Acquired absence of other specified parts of digestive tract; Z79.899 Other long term (current) drug therapy; Z98.890 Other specified postprocedural states; Z90.710 Acquired absence of both cervix and uterus; Z80.9 Family history of malignant neoplasm, unspecified; Z88.5 Allergy status to narcotic agent
CPT/HCPCS: 36415; 51702; 74177; 80048; 80053; 81001; 83605; 83690; 83735; 83880; 84100; 84443; 84484; 85025; 86140; 87040; 87493; 93005; 93306; 94760; 96365; 96367; 96374; 96375; 96376; 99285; J0744; J1160; J1171; J2405; J2543; J3480; J3490; J7030; J7040; J7042; J9999

== ENCOUNTER → 2024-08-08 11:29 | Outpatient (BNVA) | payer MEDICARE, SELFPAY | PROVIDERS: PCP Registered Nurse; Visit Provider Student in an Organized Health Care Education/Training Program | DX: K57.92 Diverticulitis of intestine, part unspecified, without perforation or abscess without bleeding (principal) | CPT/HCPCS: 99204 ==

== ENCOUNTER 2024-11-14 22:56 | Inpatient (IN) | payer MEDICARE, SELFPAY ==
--- OUTSIDE RECORDS SUMMARY | 2024-11-09 14:40 | XMS_ITS | Encounter Summary ---
Author Organization [facility] Address [address] [place] [address] Care Team Providers Care Powder Blender And Pourer Name Role Phone Non-Staff, Physician Primary Care Provider Unava ilable Reason for Visit * Reason Comments Post-op Visit Encounter Details Date Type Department Care Team (Latest Contact Info) Description 11/09/2024 2:40 PM CDT Office Visit [facility] General and Trauma Surgery-[address] [place] [address] Tiffany Henson, LINING STRAP CLOSER [address] [facility] [address] [place] [address] Postoperative visit (Primary Dx); Visit for wound check Social History Tobacco Use Types Packs/Day Years Used Date Smoking Tobacco: Never Smokeless Tobacco: Never Alcohol Use Standard Drinks/Week Comments No 0 (1 standard drink = 0.6 oz pur e alcohol) Feeling Safe Answer Date Recorded Are you in a relationship wi th someone who hurts you emotionally and/or physically? 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 Gender Identity Not on file Sexual Orientation Not on file documented as of this encounter Last Filed Vital Signs Vital Sign Reading Time Taken Comments Blood Pressure 122/80 11/09/2024 3:02 PM CDT Pulse 122 11/09/2024 3:02 PM CDT Temperature - - Respiratory Rate - - Oxygen Saturation 100% 11/09/2024 3:02 PM CDT Inhaled Oxygen Concentration - - Weight 80.3 kg (177 lb) 11/09/2024 3:02 PM CDT p er pt Height 167.6 cm (5' 6 ) 11/09/2024 3:02 PM CDT p er pt Body Mass Index 28.57 11/09/2024 3:02 PM CDT documented in this encounter Progress Notes * Tiffany Henson NP - 11/09/2024 2:40 PM CDT Images from the original note were not included. General Trauma clinic note Dianelys Reagan : 1950 CSN: [id number] This is a 74 y.o. seen today status post op: 11/09/24 History of Present Illness The patient is a 74-year-old female who presents for evaluation status post colonic pericolonic abscess diverticulitis with small bowel resection. She reports experiencing irritation from the adhesive used in her wound care. She has been diligentin cleaning the area but notes that her stomach has been particularly sensitive during this process. She is status post colonic pericolonic abscess diverticulitis with small bowel resection approximately 14.7 cm with an abscess. There was a right colon resection as well with an adenomatous polyp ofthe cecum, acute inflammation, and distal appendix showing mucosal hyperplasia. SOCIAL HISTORY Tobacco: The patient smokes cigarettes. Physical Exam: Vital Signs: BP 122/80 Pulse (!) 122 Ht 5' 6 (1.676 m) Comment: per pt Wt 80.3 kg (177 lb) Comment: per pt SpO2 100% BMI 28.57 kg/m?? General appearance: alert, in no acute distress, social Lungs: clear to auscultation bilaterally, normal respiratory effort Heart: Tachycardia present Abdomen: Soft, appropriately-tender. Bowel sounds normal. Incision/wound: Clean, pink, moist with wound edges fixed healing. Extremities: Moves all extremities Neurologic: Follows commands appropriate to situation Physical Exam General: Patient appears in no acute distress. Skin: Wound shows signs of healing with some irritation from the adhesive. Results Diagnostic Testing - Pathology report: Colonic pericolonic abscess with clean edges, small intestine showed inflammation, adhesions, and a small abscess, right colon showed an adenomatous polyp, distal appendix showed mucosal hyperplasia. Results for orders placed or performed during the hospital encounter of 08/30/24 PATHOLOGY Result Value Ref Range CASE REPORT Surgical Pathology Report Case: [id number] Authorizing Provider: Moe Ro DO Collected: 09/06/2024 01:06 PM Ordering Location: [facility] Received: 09/06/2024 03:48 PM Operating Room Pathologist: Aldo Marc MD Specimens: A) - Rectum B) - Small Intestine C) - Colon, right FINAL DIAGNOSIS A. Rectum, resection - diverticulitis with pericolonic abscess - resection margins viable. / B. Small intestine, resection - segment of small intestine, 14.7 cm in length after formalin fixation, showing serosal inflammation, adhesions, and extrinsic abscess in mesenteric fat - no significant mucosal inflammation - resection margins viable. / C. Colon, right, resection - adenomatous polyp of cecum (0.4 cm) - serosal acute inflammation - resection margins viable - distal appendix shows mucosal hyperplasia. Aldo Marc MD [id number] GROSS DESCRIPTION A. Received in a container of formalin labeled Tez -rectum is a 9.5 cm in length segment of rectum that is stapled at both ends. The serosal surface is li-henry and extensively ragged with denseadhesions. The specimen is opened to reveal multiple diverticula intermittently throughout the bowel. There is a 3.1 x 1.5 x 1.3 cm abscess cavity. No obvious perforations are grossly identified. Training And Quality Manager sections are submitted as follows: A1: Mucosal margins, en face A2: Training And Quality Manager of diverticulum A3: Training And Quality Manager of abscess cavity B. Received in a container of formalin labeled Tez -small intestine is a 14.7 cm in length segment of small bowel that is stapled at both ends. The serosal surface is intermittently ragged with adhesions. The specimen is opened to reveal a li-pink mucosa with typical folds. There is a 2.1 x 1.3 x 0.4 cm abscess cavity identified within the mesentery with no obvious perforations grossly identified. No discrete masses or lesions identified. Training And Quality Manager sections are submitted as follows: B1: Mucosal margin, en face B2: Training And Quality Manager of mucosa with abscess cavity B3: Training And Quality Manager of mucosa with ragged serosa C. Received in a container of formalin labeled Tez is a right hemicolectomy specimen includinga terminal ileum (2.5 cm in length), cecum (7.2 cm in length), and appendix (5.2 x 0.7 cm). The serosal surface is li-pink and smooth. The specimen is opened to reveal a 0.4 x 0.3 x 0.2 cm li-pink,sessile polyp located within the cecum, 4.5 cm from the proximal margin and 5.5 cm from the distal m argin. No invasion is grossly identified. The outer surface of the appendix is li-henry and smooth.Sectioning reveals a mildly dilated lumen filled with fecal material, that measures up to 0.2 cm indiameter. The uninvolved mucosa is li- pink with typical folds. Training And Quality Manager sections are submitted as follows: C1: Mucosal margins, en face C2: Polyp, entirely submitted C3: Training And Quality Manager of mucosa C4: Training And Quality Manager appendix Leah Henson OPERATIVE PROCEDURE 1: LAPAROTOMY EXPLORATORY 2: COLON RESECTION LOW 3: ILEOCOLECTOMY 4: CYSTOURETHROSCOPY URETERAL STENT INSERTION 5: WOUND CLOSURE VACUUM ASSISTED COMMENT The MeeWee voice-activated dictation system may have been used in the creation of this report. Inherent to this system is the possibility of errors in syntax, grammar, punctuation, or other areas that could impact interpretation. If there are interpretive questions about the report, please contact the performing pathologist. Unless gross only is specified in the diagnosis, the microscopic examination substantiates the above cited diagnosis. The performance characteristics of all immunohistochemical stains cited in this report (if any) were determined by the [facility] of [facility] in compliance with CLIA'88 regulations. Some of these tests rely on the use of analyte specific reagents and are subject to specific labeling requirements by the FDA. All controls show appropriate reactivity. This testing was developed by the [facility] of [facility]. It has not been cleared or approved by the FDA. The FDA has determined that such clearance or approval is not necessary. Assessment and Plan: Assessment & Plan 1. Postoperative status following colonic pericolonic abscess diverticulitis with small bowel resection. The wound appears to be progressing towards healing. Continue with the wet-to-dry dressing technique. An alternative approach involving the application of Hydrofera Blue every 3 days was discussed. The foam for this dressing must be ordered and paid for by the patient A sample will be provided today for use over the next 3 days, after which the patient can decide whether to continue with it or revert to the wet-to-dry method. Maintain a high-protein diet and avoid exposure to smoke during the healing process. Secondhand smoke exposure, including smoke on clothes, can cause vasoconstriction and impede healing. Smoking outside and cleansing clothes is recommended. Follow-up 2 weeks if not closed and resurfaced Chronic medical management per PCP call with any questions or concerns This note was automatically generated by a Generative AI technology (Wizpert), reviewed, edited, and finalized by Tiffany Henson NP. The author of this note, patient (or authorized client care representative), and all other persons present consent to the audio recording of this visit for charting documentation purposes. This note may have been written in part with the assistance of MeeWee computerized dictation software. Every effort is made when this program is used to proofread the documentation. Any errors in spelling, syntax, or meaning should be interpreted in the context of the broader note. Tiffany Henson NP Cosigned by Moe Ro DO at 11/11/2024 5:33 PM CDT documented in this encounter Miscellaneous Notes * Patient Instructions - Tiffany Henson NP - 11/09/2024 2:40 PM CDT Dear Dianelys It was a pleasure seeing you today. If you have any questions when you get home do not hesitate to call us at post care instructions: Patient Information: Name: Dianelys Reagan Age: 74 Medical History: Status post colonic pericolonic abscess diverticulitis with small bowel resection,right colon resection with adenomatous polyp, and distal appendix showing mucosal hyperplasia. Reason for Visit: Dianelys Reagan visited for evaluation of her postoperative status following colonic pericolonic abscess diverticulitis with small bowel resection. She reported irritation from the adhesive used in her wound care and sensitivity in her stomach during the cleaning process. Clinical Findings: The physical exam showed that Dianelys is in no acute distress. Her wound is healing but has some irritation from the adhesive. The pathology report indicated clean edges around the colonic pericolonic abscess, inflammation and adhesions in the small intestine, an adenomatous polyp in the right colon,and mucosal hyperplasia in the distal appendix. Diagnosis: - Postoperative status following colonic pericolonic abscess diverticulitis with small bowel resection Treatment Plan: - Continue with the wet-to-dry dressing technique. - Consider using Hydrofera Blue foam dressing every 3 days. A sample will be provided for the next 3 days, and Dianelys can decide whether to continue with it or revert to the wet-to-dry method. The foam costs approximately $60-$70 per box or $25 per sheet. - Maintain a high-protein diet. - Avoid exposure to smoke during the healing process. Smoking outside and cleansing clothes is recommended. Follow-Up Instructions: - Continue with the wet-to-dry dressing technique or switch to Hydrofera Blue foam dressing every 3days. - Maintain a high-protein diet. - Avoid exposure to smoke, including secondhand smoke on clothes. - Follow up with the clinician if there are any concerns or complications with the wound healing. Additional Notes: - Dianelys has been smoking since she was 16 years old and is advised to smoke outside and cleanse herclothes to avoid affecting the wound healing process. Pharmacy : [facility] If you notice any signs of fevers, chills, increased redness, worsening pain, swelling or drainage at the surgical site, please inform us immediately. Don't forget to sign up for [facility] at [facility]. This is an easy way to electronically stay connected to your physician team, view your lab results, renew prescriptions and request appointments. It is easy to sign up and connect with you [facility] team online, any time, anywhere. Also, you may receive a survey in the mail or online about your visit today. I encourage you to complete the survey. We would appreciate a rating of EXCELLENT for your visit today. If you do not feel that you can give us EXCELLENT scores please let us know why so that we can better serve you in the future. Important information : Our office will only send the prescription to the pharmacy that was discussed, and mentioned above. -- We will not be able to transfer narcotic prescriptions. -- Our office does not refill prescriptions over the weekend, this includes Thursday. -- Allow 48 hours for prescriptions verification. Again, it was a pleasure visiting with you today. We look forward to seeing you in the future. Best regards, Jess Henson NP [facility] General Surgery, Trauma, and Burn Clinic documented in this encounter Plan of Treatment Not on file documented as of this encounter Visit Diagnoses Diagnosis Postoperative visit- Primary Visit for wound check Encounter for other specified aftercare documented in this encounter Additional Health Concerns Infection Onset Date Last Indicated Resolved Time C Diff 10/27/2024 10/27/2024 documented as of this encounter Care Teams Powder Blender And Pourer Relationship Specialty Start Date End Date Non-Staff, Physician NO ADDRESS ON FILE PCP - General 08/30/13 documented as of this encounter
--- OUTSIDE RECORDS SUMMARY | 2024-11-14 23:03 | XMS_ITS | Encounter Summary ---
Author Organization [facility] Address [address] [place] [address] Care Team Providers Care Solar Sales Name Role Phone Non-Staff, Physician Primary Care Provider Unava ilable Encounter Details Date Type Department Care Team (Latest Contact Info) Description 04/17/2000 Outpatient Historical [facility] Family Medicine- [address] [place] [address] Gloria Sal NO ADDRESS ON FILE Excessive menstruation (Primary Dx); Screening for malignant neoplasm of the rectum; Need vaccination-viral disease Social History Tobacco Use Types Packs/Day Years Used Date Smoking Tobacco: Never Assessed Comments Unknown Sex and Gender Information Value Date Recorded Sex Assigned at Not on file 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
--- OUTSIDE RECORDS SUMMARY | 2024-11-14 23:03 | XMS_ITS | Encounter Summary ---
Author Organization [facility] Address [address] [place] [address] Care Team Providers Care Dumping Machine Operator Name Role Phone Non-Staff, Physician Primary Care Provider Unava ilable Encounter Details Date Type Department Care Team (Latest Contact Info) Description 09/27/[address] [facility] Family Medicine- [place] [address] [place] [address] Tereso Rees DO NO ADDRESS ON FILE HEADACHE (Primary Dx) Social History Tobacco Use Types Packs/Day Years Used Date Smoking Tobacco: Never Assessed Comments Unknown Sex and Gender Information Value Date Recorded Sex Assigned at Not on file Legal Sex Female 3:15 AM CRITICAL CARE PHYSICIAN Gender Identity Not on file Sexual Orientation Not on file documented as of this encounter Plan of Treatment Not on file documented as of this encounter Visit Diagnoses Diagnosis Headache(784.0)- Primary Headache documented in this encounter Care Teams Dumping Machine Operator Relationship Specialty Start Date End Date Non-Staff, Physician NO ADDRESS ON FILE PCP - General 08/30/13 documented as of this encounter
--- OUTSIDE RECORDS SUMMARY | 2024-11-14 23:03 | XMS_ITS | Encounter Summary ---
Author Organization [facility] Address [address] [place] [address] Care Team Providers Care Fuel Injection Servicer Name Role Phone Non-Staff, Physician Primary Care Provider Unava ilable Encounter Details Date Type Department Care Team (Latest Contact Info) Description 03/09/2000 Outpatient Historical [facility] Family Medicine- [place] [address] [place] [address] Gloria Sal NO ADDRESS ON FILE Unspecified internal derangement of knee (Primary Dx) Social History Tobacco Use Types Packs/Day Years Used Date Smoking Tobacco: Never Assessed Comments Unknown Sex and Gender Information Value Date Recorded Sex Assigned at Not on file Legal Sex Female 3:15 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
--- OUTSIDE RECORDS SUMMARY | 2024-11-14 23:03 | XMS_ITS | Encounter Summary ---
Author Organization [facility] Address [address] [place] [address] Care Team Providers Care Pot Filler Name Role Phone Non-Staff, Physician Primary Care Provider Unava ilable Encounter Details Date Type Department Care Team (Late st Contact Info) Description 01/22/1998 Outpatient Historical [facility] Social History Tobacco Use Types Packs/Day Years Used Date Smoking Tobacco: Never Assessed Comments Unknown Sex and Gender Information Value Date Recorded Sex Assigned at Not on file Legal Sex Female 3:15 AM THERAPIST PHYS Gender Identity Not on file Sexual Orientation Not on file documented as of this encounter Plan of Treatment Not on file documented as of this encounter Visit Diagnoses Not on filedocumented in this encounter Care Teams Pot Filler Relationship Specialty Start Date End Date Non-Staff, Physician NO ADDRESS ON FILE PCP - General 08/30/13 documented as of this encounter
--- OUTSIDE RECORDS SUMMARY | 2024-11-14 23:03 | XMS_ITS | Encounter Summary ---
Author Organization [facility] Address [address] [place] [address] Care Team Providers Care Stationary Steam Engineer Name Role Phone Non-Staff, Physician Primary Care Provider Unava ilable Encounter Details Date Type Department Care Team (Late st Contact Info) Description 06/22/2000 Outpatient Historical [facility] Geraldo Kessler MD [address] [phone] Follow-up examination, following unspecified surgery (Primary Dx) Social History Tobacco Use Types Packs/Day Years Used Date Smoking Tobacco: Never Assessed Comments Unknown Sex and Gender Information Value Date Recorded Sex Assigned at Not on file Legal Sex Female 3:15 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
--- OUTSIDE RECORDS SUMMARY | 2024-11-14 23:03 | XMS_ITS | Encounter Summary ---
Author Organization 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
--- OUTSIDE RECORDS SUMMARY | 2024-11-14 23:03 | XMS_ITS | Encounter Summary ---
Author Organization [facility] Address [address] [place] [address] Care Team Providers Care Granite Chip Terrazzo Finisher Name Role Phone Non-Staff, Physician Primary Care Provider Unava ilable Encounter Details Date Type Department Care Team (Latest Contact Info) Description 04/02/2001 Outpatient Historical [facility] Family Medicine- [place] [address] [place] [phone] Wanda Castro MD NO ADDRESS ON FILE TENSION HEADACHE (Primary Dx); ANXIETY STATE NOS; BRIEF DEPRESSIVE REACT; ALLERGIC RHINITIS NOS Social History Tobacco Use Types Packs/Day Years Used Date Smoking Tobacco: Never Assessed Comments Unknown Sex and Gender Information Value Date Recorded Sex Assigned at Not on file Legal Sex Female 3:15 AM MOTOR MAN Gender Identity Not on file Sexual Orientation Not on file documented as of this encounter Plan of Treatment Not on file documented as of this encounter Visit Diagnoses Diagnosis Tension headache- Primary Anxiety state, unspecified Adjustment disorder with depressed mood Allergic rhinitis, cause unspecified documented in this encounter Care Teams Granite Chip Terrazzo Finisher Relationship Specialty Start Date End Date Non-Staff, Physician NO ADDRESS ON FILE PCP - General 08/30/13 documented as of this encounter
--- OUTSIDE RECORDS SUMMARY | 2024-11-14 23:03 | XMS_ITS | Encounter Summary ---
Author Organization [facility] Address [address] [place] [address] Care Team Providers Care Avionics Electronics Technician Name Role Phone Non-Staff, Physician Primary Care Provider Unava ilable Encounter Details Date Type Department Care Team (Latest Contact Info) Description 01/17/2002 Outpatient Historical [facility] Family Medicine- [place] [address] [place] [phone] Wanda Castro MD NO ADDRESS ON FILE MIGRAINE NOS W/O MENTN INTRACTABLE (Primary Dx); MENOPAUSAL DISORDER NOS Social History Tobacco Use Types Packs/Day Years Used Date Smoking Tobacco: Never Assessed Comments Unknown Sex and Gender Information Value Date Recorded Sex Assigned at Not on file Legal Sex Female 3:15 AM WELFARE SERVICE AIDE Gender Identity Not on file Sexual Orientation Not on file documented as of this encounter Plan of Treatment Not on file documented as of this encounter Visit Diagnoses Diagnosis Migraine, unspecified, without mention of intractable migraine without mention of status migrainosus- Primary Unspecified menopausal and postmenopausal disorder documented in this encounter Care Teams Avionics Electronics Technician Relationship Specialty Start Date End Date Non-Staff, Physician NO ADDRESS ON FILE PCP - General 08/30/13 documented as of this encounter
--- OUTSIDE RECORDS SUMMARY | 2024-11-14 23:03 | XMS_ITS | Encounter Summary ---
Author Organization [facility] Address [address] [place] [address] Care Team Providers Care Chief I Dispatcher Name Role Phone Non-Staff, Physician Primary Care Provider Unava ilable Encounter Details Date Type Department Care Team (Late st Contact Info) Description 05/11/2000 Outpatient Historical [facility] Geraldo Kessler MD [address] [phone] Lipoma of other specified sites (Primary Dx) Social History Tobacco Use Types Packs/Day Years Used Date Smoking Tobacco: Never Assessed Comments Unknown Sex and Gender Information Value Date Recorded Sex Assigned at Not on file Legal Sex Female 3:15 AM SURGICAL SERVICES DIRECTOR Gender Identity Not on file Sexual Orientation Not on file documented as of this encounter Plan of Treatment Not on file documented as of this encounter Visit Diagnoses Diagnosis Lipoma of other specified sites- Primary documented in this encounter Care Teams Chief I Dispatcher Relationship Specialty Start Date End Date Non-Staff, Physician NO ADDRESS ON FILE PCP - General 08/30/13 documented as of this encounter
--- OUTSIDE RECORDS SUMMARY | 2024-11-14 23:03 | XMS_ITS | Encounter Summary ---
Author Organization [facility] Address [address] [place] [address] Care Team Providers Care Light Armored Reconnaissance Officer Name Role Phone Non-Staff, Physician Primary Care Provider Unava ilable Encounter Details Date Type Department Care Team (Latest Contact Info) Description 03/23/2000 Outpatient Historical [facility] Family Medicine- [place] [address] [place] [address] Gloria Sal NO ADDRESS ON FILE Generalized osteoarthrosis, involving multiple sites (Primary Dx); Unspecified menopausal and postmenopausal disorder Social History Tobacco Use Types Packs/Day Years Used Date Smoking Tobacco: Never Assessed Comments Unknown Sex and Gender Information Value Date Recorded Sex Assigned at Not on file Legal Sex Female 3:15 AM PARTY DEMONSTRATOR Gender Identity Not on file Sexual Orientation Not on file documented as of this encounter Plan of Treatment Not on file documented as of this encounter Visit Diagnoses Diagnosis Generalized osteoarthrosis, involving multiple sites- Primary Unspecified menopausal and postmenopausal disorder documented in this encounter Care Teams Light Armored Reconnaissance Officer Relationship Specialty Start Date End Date Non-Staff, Physician NO ADDRESS ON FILE PCP - General 08/30/13 documented as of this encounter
--- OUTSIDE RECORDS SUMMARY | 2024-11-14 23:04 | XMS_ITS | Clinical Summary ---
Author Organization [employer] Address [address] [facility] [address] [address] Martin: Epic Prelude ADT JOSSIE JASMINE [address] Care Team Providers Care Wire Spooler Name Role Phone Non-Staff, Physician Primary Care Provider Unava ilable Allergies Active Allergy Reactions Criticality Noted Date Comments Morphine Hives,Hallucination High 07/16/2012 Medications acetaminophen (TYLENOL) 325 mg tablet Take 2 Tablets (650 mg) by mouth every 6 hours as needed for Other (See Comment) (See admin instructions). Active artificial lubricant (GENTEAL PM) 94-3 % ointment Administer 0.25 Inches in both eyes every 12 hours. Active guaiFENesin (ROBITUSSIN) 100 mg/5 mL solution Take 15 mL (300 mg) by mouth every 6 hours. Active ipratropium-alb uteroL (DUONEB) 0.5 mg-3 mg(2.5 mg base)/3 mL Solution for Nebulization Take 3 mL by inhalation every 6 hours as needed for Shortness of Breath. Active miconazole (MARIE FRANCO,R EMEDNic AF) 2 % Cream Apply to affected area 2 times daily. Active ondansetron (ZOFRAN ODT) 4 mg Tablet, Rapid Dissolve Take 1 Tablet (4 mg) by mouth every 8 hours as needed for Nausea/Emesis. Dissolve tablet on top of tongue, then swallow with saliva. Active polyethylene glycol (MIRALAX) 17 gram Powder in Packet Take 1 Packet (17 Grams) by mouth 1 time daily as needed for Constipation. Active docusate sodium (COLACE) 50 mg/5 mL solution Take 10 mL (100 mg) by mouth 2 times daily as needed for Constipation. Active zinc OXIDE-cod liver oil (Desitin) 40 % Paste Apply to affected area see administration instructions. 28 Gram Active dicyclomine (BENTYL) 10 mg capsule Take 1 Capsule (10 mg) by mouth 4 times daily as needed for abdominal pain 14 Capsule Active apixaban (ELIQUIS) 5 mg tablet Take 5 mg by mouth 2 times daily. Active HYDROcodone-terry taminophen (NORCO) 5-325 mg tabletIndicatio ns:Postoperativ e abdominal pain Take 1 Tablet by mouth every 6 hours as needed for Pain. Max Daily Amount: 4 Tablets 20 Tablet Active docusate sodium (COLACE) 50 mg/5 mL solution Take 10 mL (100 mg) by mouth 3 times daily. 2024 Discontinued famciclovir (FAMVIR) 500 mg tablet 1 Tablet (500 mg) by NG Tube route 2 times daily. 2024 Discontinued heparin 5,000 unit/mL Solution Inject 1 mL (5,000 Units) by subcutaneous injection every 8 hours. 2024 Discontinued polyethylene glycol (MIRALAX) 17 gram Powder in Packet Take 1 Packet (17 Grams) by mouth daily. 2024 Discontinued calcium as CARBONATE (TUMS ULTRA) 1,000 mg (400 mg elemental) Tablet, Chewable Take 1 Tablet (400 mg) by mouth 3 times daily with meals for 10 days. 30 Tablet 2024 saccharomyces boulardii (FLORASTOR) 250 mg Capsule Take 2 Capsules (500 mg) by mouth 2 times daily for 10 days. 40 Capsule 2024 Active Problems Problem Noted Date Diagnosed Date Splenic artery aneurysm per CT 10/29/2024 Acute C. difficile colitis 10/27/2024 Hypokalemia 10/27/2024 Protein-calorie malnutrition, moderate Colostomy status 10/27/2024 Abdominal pain 10/26/2024 Poor nutrition 09/13/2024 On total parenteral nutrition (TPN) 09/13/2024 Ureteral stent present 09/09/2024 Hypervolemia 09/09/2024 INDU (acute kidney injury) 09/09/2024 Acute respiratory failure with hypoxia Hypotension 09/07/2024 History of recurrent UTIs 09/01/2024 H/O recurrent diverticulitis of colon 09/01/2024 Bladder diverticulum 09/01/2024 Perforation of sigmoid colon due to diverticulit is 08/30/2024 Abscess of sigmoid colon due to diverticulitis 0 08/30/2024 GERD (gastroesophageal reflux disease) 3 Hypertension 07/16/2012 Belchings 07/16/2012 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 Intractable hiccups 07/16/2012 Resolved Problems Problem Noted Date Diagnosed Date Resolved Date Colitis 10/26/2024 10/27/2024 Hyponatremia 08/30/2024 09/04/2024 Hypokalemia 08/30/2024 09/04/2024 Encounters Date Type Department Care Team Description 11/14/2024 Telephone [facility] General and Trauma Surgery[address] [place] [phone] Dana Eddy PA Question 11/09/2024 2:40 PM CDT Office Visit [facility] General [facility] Trauma Surgery[address] [place] [phone] Tiffany Henson NP Postoperative visit (Primary Dx); Visit for wound check 11/08/2024 External Device Data ST[facility] ABSTRACTION Provider, Abstract 11/06/2024 Results Follow-Up [facility] Emergency Medicine [address] [phone] Soraya Lagunas RN URINE CULTURE 11/04/2024 11:38 PM CDT - 11/05/2024 3:23 AM CDT Emergency [facility] Emergency Medicine [address] [facility] [address] [place] [phone] Nicole Golden MD Postoperative abdominal pain (Primary Dx) Discharge Disposition: Home or Self Care 11/04/2024 - 11/04/2024 11:59 PM CDT Hospital Encounter [facility] [address] [address] Ambulance, [facility] Discharge Disposition: [facility] 11/01/2024 External Device Data STL ABSTRACTION Provider, Abstract 11/01/2024 External Device Data STL ABSTRACTION Provider, Abstract 11/01/2024 External Device Data STL ABSTRACTION Provider, Abstract 10/26/2024 6:10 AM CDT - 10/29/2024 2:34 PM CDT Hospital Encounter [facility] 7B Medical Surgical [address] [place] [address] Areli Negrete, Deandra Gruber MD Kuppi Reddy, Madhavi, MD C. difficile colitis Discharge Disposition: Home or Self Care 10/26/2024 - 10/26/2024 11:59 PM CDT Hospital Encounter [facility] [address] [phone] Ambulance, [facility] Discharge Disposition: [facility] 10/26/2024 Patient Outreach [facility] [place] [address] [address] [facility] [address] [place] [address] Sussy Hager Referral; Financial Assistance Program 10/26/2024 Travel 10/25/2024 External Device Data STL ABSTRACTION Provider, Abstract 10/21/2024 Lab Requisition [facility] General Laboratory Services [address] [place] [address] [facility], External Provider 10/20/2024 Lab Requisition [facility] General Laboratory Services [address] [place] [address] [facility], External Provider 10/18/2024 External Device Data STL ABSTRACTION Provider, Abstract 10/18/2024 Lab Requisition [facility] General Laboratory Services [address] [place] [address] Kiarra Charles MD 10/17/2024 Lab Requisition [facility] [address] [place] [address] [facility], External Provider 10/17/2024 Lab Requisition [facility] [address] [place] [address] [facility], External Provider 10/15/2024 Lab Requisition [facility] Services [address] [place] [phone] Harry Reyes, DO 10/13/2024 Lab Requisition [facility] [address] [place] [phone] [facility], External Provider 10/12/2024 Lab Requisition [facility] General Laboratory Services [address] [place] [phone] [facility], External Provider 10/10/2024 Lab Requisition [facility] Services [address] [place] [phone] [facility], External Provider 10/06/2024 Lab Requisition [facility] General Laboratory Services [address] [place] [phone] [facility], External Provider 10/06/2024 Lab Requisition [facility] General Laboratory Services [address] [place] [phone] Harry Reyes, DO 10/04/2024 External Device Data STL ABSTRACTION Provider, Abstract 10/03/2024 Lab Requisition [facility] [address] [place] [phone] Harry Reyes, DO 09/29/2024 Lab Requisition [facility] [address] [place] [phone] Harry Reyes, DO 09/27/2024 External Device Data STL ABSTRACTION Provider, Abstract 09/27/2024 External Device Data STL ABSTRACTION Provider, Abstract 09/26/2024 Lab Requisition [facility] Laboratory Services [address] [place] [address] [facility], External Provider 09/26/2024 Lab Requisition [facility] General Laboratory Services [address] [place] [address] 09/25/2024 Lab Requisition [facility] Laboratory Services [address] [place] [address] [facility], External Provider 09/23/2024 Lab Requisition [facility] General Laboratory Services [address] [place] [address] [facility], External Provider 09/22/2024 Lab Requisition [facility] Laboratory Services [address] [place] [address] Harry Reyes, DO 09/22/2024 Lab Requisition [facility] Laboratory Services [address] [place] [address] Harry Reyes, DO 09/19/2024 Lab Requisition [facility] General Laboratory Services [address] [place] [address] Harry Reyes, DO 09/18/2024 Lab Requisition [facility] General Laboratory Services [address] [place] [address] Harry Reyes, DO 09/17/2024 1:00 AM CDT - 09/17/2024 11:59 PM CDT Hospital [facility] Medical Services [place] [address] [place] [address] Dinesh Toussaint MD Ambulance, [facility] Discharge Disposition: [facility] 09/17/2024 Lab Requisition [facility] Laboratory Services [address] [place] [address] Harry Reyes, 09/13/2024 External Device Data STL ABSTRACTION Provider, Abstract 09/13/2024 External Device Data STL ABSTRACTION Provider, Abstract 09/07/2024 7:49 AM CDT Anesthesia Event [facility] Operating Room [address] [place] [phone] [place] MD Bock, Jordan Edward, HEATER FURNACE 09/07/2024 7:20 AM CDT - 09/07/2024 9:39 AM CDT Surgery [facility] Operating Room [address] [place] [phone] Moe Ro DO COLOSTOMY 09/06/2024 10:02 AM CDT - 09/06/2024 12:49 PM CDT Surgery [facility] Operating Room [address] [place] [phone] Moe Ro DO LAPAROTOMY EXPLORATORY 09/06/2024 9:58 AM CDT Anesthesia Event [facility] Operating Room [address] [place] [phone] Romero Mckee MD Bliss, Michael P, HEATER FURNACE 09/06/2024 External Device Data STL ABSTRACTION Provider, Abstract 09/06/2024 External Device Data STL ABSTRACTION Provider, Abstract 09/06/2024 External Device Data STL ABSTRACTION Provider, Abstract 08/30/2024 6:31 PM CDT - 09/17/2024 4:35 AM CDT Hospital [facility] 6[facility] Neuro Trauma [facility] [address] [place] [address] Dinesh Toussaint MD Perforation of sigmoid colon due to diverticulitis Discharge [facility] 08/30/2024 11:00 AM CDT - 08/30/2024 11:59 PM CDT Hospital Encounter [facility] Emergency Medical Services [place] [address] [place] [address] Ambulance, [facility] Discharge Disposition: [facility] 08/30/2024 7:55 AM CDT - 08/30/2024 4:40 PM CDT Emergency [facility] Emergency Medicine [address] [facility] [address] [place] [address] Sekou Pollock MD Perforation of sigmoid colon due to diverticulitis (Primary Dx); Abscess of sigmoid colon due to diverticulitis Discharge Disposition: [facility] 08/30/2024 - 08/30/2024 11:59 PM CDT Hospital Encounter [facility] Emergency Medical Services [address] [phone] Sekou Pollock MD Ambulance, [facility] Discharge Disposition: [facility] 08/30/2024 Travel 08/16/2024 External Device Data STL ABSTRACTION Provider, Abstract 08/16/2024 External Device Data STL ABSTRACTION Provider, Abstract 08/16/2024 External Device Data STL ABSTRACTION Provider, Abstract from Last 3 Months Immunizations Immunization Administration Dates Next Due Influenza Seasonal Unspecified Formulation IM ,04/17/2000 Family History Medical History Relation Name Comments Breast Cancer Mother Relation Name Status Comments Mother Social History Tobacco Use Types Packs/Day Years [...] on file Legal Sex Female 11:03 AM [employer] Gender Identity Not on file Sexual Orientation Not on file Last Filed Vital Signs Vital Sign Reading Time Taken Comments Blood Pressure 122/80 11/09/2024 3:02 PM CDT Pulse 122 11/09/2024 3:02 PM CDT Temperature 36.7 C (98.1 F) 11/04/2024 11:29 PM CDT Respiratory Rate 21 11/04/2024 11:29 PM CDT Oxygen Saturation 100% 11/09/2024 3:02 PM CDT Inhaled Oxygen Concentration - - Weight 80.3 kg (177 lb) 11/09/2024 3:02 PM CDT p er pt Height 167.6 cm (5' 6 ) 11/09/2024 3:02 PM CDT p er pt Body Mass Index 28.57 11/09/2024 3:02 PM CDT Plan of Treatment Health Maintenance Due Date Last Done Comments DTAP/TDAP/TD VACCINES (1 - Tdap) 1970 BREAST CANCER SCREENING 1991 COLORECTAL SCREENING 02/20/1996 Colorectal Cancer Screening 02/20/1996 FIT-DNA Q 3 years 02/20/1996 FIT/FOBT Q 1 year 02/20/1996 Flex Sig/CT Colonography Q 5 years 02/20/1996 PNEUMOCOCCAL VACCINE 50+ YEA RS (1 of 1 - PCV) 2001 ZOSTER VACCINE (1 of 2) 2001 OSTEOPOROSIS SCREENING 02/20/2016 COVID-19 Vaccine (2 - season) 2024 INFLUENZA VACCINE (#1) 2024 02/02/2012, 1999 RSV VACCINE (60+ or ) (1 - 1-dose 75+ series) 2026 Medical Devices Implanted Type Area Occupational Medicine Officer Device Identifier Shelf Expiration Date Model / Serial / Lot Clip Ligating Horizon Lrg Ti 10.07x12.38mm [id number] - [facility] - [id number] Implanted:Qty: 1 on 09/06/2024 by Moe Ro DO at [facility] Clip N/A: Abdomen TELEFLEX- WECK CLOSURE SYS [id number] 03/21/2029 [id number] / / [id number] Clip Ligating Horizon Med Ti [id number] - [facility] - [id number] Implanted:Qty: 1 on 09/06/2024 by Moe Ro DO at [facility] Clip N/A: Abdomen TELEFLEX- WECK CLOSURE SYS [id number] 02/23/2029 [id number] / / [id number] Clip Ligating Horizon Med Ti [id number] - [facility] - [id number] Implanted:Qty: 1 on 09/06/2024 by Moe Ro DO at [facility] Clip N/A: Abdomen TELEFLEX- WECK CLOSURE SYS [id number] 02/23/2029 [id number] / / [id number] Stent Contour [id number] - [id number] Implanted:Qty: 1 on 09/06/2024 by Moe Ro DO at [facility] Stent Right: Abdomen [employer] [id number] 04/19/2027 [id number] / / [id number] Stent Contour [id number] - [id number] Implanted:Qty: 1 on 09/06/2024 by Moe Ro DO at [facility] Stent Left: Abdomen [employer] [id number] 04/19/2027 [id number] / / [id number] Procedures Procedure Name Priority Date/Time Associated Diagnosis Comments CT ABDOMEN PELVIS W CONTRAST Stat 11/05/2024 1:41 AM CDT URINALYSIS MICROSCOPY ONLY Stat 11/05/2024 1:12 AM CDT URINALYSIS WITH REFLEX CULTURE Stat 11/05/2024 1:12 AM CDT URINE CULTURE Stat 11/05/2024 1:12 AM CDT LIPASE Stat 11/05/2024 12:47 AM CDT COMPREHENSIVE METABOLIC PANEL Stat 11/05/2024 12:47 AM CDT CBC WITH DIFFERENTIAL Stat 11/05/2024 12:47 AM CDT BASIC METABOLIC PANEL Routine 10/29/2024 4:23 AM CDT CBC WITH DIFFERENTIAL Routine 10/28/2024 6:15 AM CDT MAGNESIUM LEVEL Routine 10/28/2024 6:14 AM CDT COMPREHENSIVE METABOLIC PANEL Routine 10/28/2024 6:14 AM CDT GI PATHOGEN PCR PANEL Routine 10/27/2024 10:56 AM CDT COMPREHENSIVE METABOLIC PANEL Routine 10/27/2024 2:10 AM CDT CBC WITH DIFFERENTIAL Routine 10/27/2024 2:10 AM CDT MAGNESIUM LEVEL Stat 10/26/2024 11:21 AM CDT POTASSIUM LEVEL Stat 10/26/2024 11:21 AM CDT EXTRA TUBE (URINE BOB) Stat 10/27/19 10:20 AM CDT URINALYSIS W/REFLEX MICROSCOPIC Stat 10/26/2024 10:20 AM CDT URINE CULTURE Routine 10/26/2024 10:20 AM CDT LACTIC ACID Stat 10/26/2024 9:[address] ABDOMEN PELVIS W CONTRAST Stat 10/26/2024 6:54 AM CDT KETONES/BETA HYDROXYBUTYRATE Stat 10/26/2024 4:51 AM CDT C-REACTIVE PROTEIN Stat 10/26/2024 4: 51 AM CDT AMYLASE Stat 10/26/2024 4:51 AM CDT LIPASE Stat 10/26/2024 4:51 AM CDT MAGNESIUM LEVEL Stat 10/26/2024 4:51 AM CDT COMPREHENSIVE METABOLIC PANEL Stat 10/26/2024 4:51 AM CDT CBC WITH DIFFERENTIAL Stat 10/26/2024 4:51 AM CDT BASIC METABOLIC PANEL Routine 10/21/2024 2:15 PM CDT COMPREHENSIVE METABOLIC PANEL Routine 10/20/2024 3:35 AM CDT CBC WITH DIFFERENTIAL Routine 10/20/2024 3:35 AM CDT URINALYSIS W/REFLEX MICROSCOPIC Routine 10/18/2024 2:30 AM CDT URINE CULTURE Routine 10/17/2024 3:32 PM CDT C-REACTIVE PROTEIN Routine 10/17/2024 3: 30 AM CDT CBC WITH DIFFERENTIAL Routine 10/17/2024 3:30 AM CDT COMPREHENSIVE METABOLIC PANEL Routine 10/17/2024 3:30 AM CDT BASIC METABOLIC PANEL Routine 10/15/2024 3:30 AM CDT COMPREHENSIVE METABOLIC PANEL Routine 10/13/2024 2:41 AM CDT CBC WITH DIFFERENTIAL Routine 10/13/2024 2:41 AM CDT URINALYSIS WITH REFLEX CULTURE Routine 10/12/2024 1:30 AM CDT URINE CULTURE Routine 10/12/2024 1:30 AM CDT C-REACTIVE PROTEIN Routine 10/10/2024 4: 28 AM CDT CBC WITH DIFFERENTIAL Routine 10/10/2024 4:28 AM CDT COMPREHENSIVE METABOLIC PANEL Routine 10/10/2024 4:28 AM CDT PHOSPHORUS Routine 10/06/2024 5:22 PM CDT MAGNESIUM LEVEL Routine 10/06/2024 5:22 PM CDT CBC WITH DIFFERENTIAL Routine 10/06/2024 4:15 AM CDT COMPREHENSIVE METABOLIC PANEL Routine 10/06/2024 4:15 AM CDT CBC WITH DIFFERENTIAL Routine 10/03/2024 3:20 AM CDT C-REACTIVE PROTEIN Routine 10/03/2024 3: 20 AM CDT COMPREHENSIVE METABOLIC PANEL Routine 10/03/2024 3:20 AM CDT CBC WITH DIFFERENTIAL Routine 09/29/2024 4:20 AM CDT COMPREHENSIVE METABOLIC PANEL Routine 09/29/2024 4:20 AM CDT C-REACTIVE PROTEIN Routine 09/26/2024 4: 52 AM CDT CBC WITH DIFFERENTIAL Routine 09/26/2024 4:52 AM CDT COMPREHENSIVE METABOLIC PANEL Routine 09/26/2024 4:52 AM CDT DIFFERENTIAL, MANUAL Routine 09/25/2024 3:00 AM CDT CBC WITH DIFFERENTIAL Routine 09/25/2024 3:00 AM CDT T4 FREE Routine 09/23/2024 4:30 AM CDT DIFFERENTIAL, MANUAL Routine 09/23/2024 4:30 AM CDT MAGNESIUM LEVEL Routine 09/23/2024 4:30 AM CDT CBC WITH DIFFERENTIAL Routine 09/23/2024 4:30 AM CDT BASIC METABOLIC PANEL Routine 09/23/2024 4:30 AM CDT TSH Routine 09/22/2024 3:15 PM CDT PHOSPHORUS Routine 09/22/2024 4:15 AM CDT MAGNESIUM LEVEL Routine 09/22/2024 4:15 AM CDT CBC WITH DIFFERENTIAL Stat 09/22/2024 4:15 AM CDT TROPONIN Stat 09/22/2024 4:15 AM CDT COMPREHENSIVE METABOLIC PANEL Stat 09/22/2024 4:15 AM CDT CBC WITH DIFFERENTIAL Routine 09/19/2024 3:15 AM CDT C-REACTIVE PROTEIN Routine 09/19/2024 3: 15 AM CDT COMPREHENSIVE METABOLIC PANEL Routine 09/19/2024 3:15 AM CDT C-REACTIVE PROTEIN Routine 09/18/2024 4: 10 AM CDT CBC WITH DIFFERENTIAL Routine 09/18/2024 4:10 AM CDT COMPREHENSIVE METABOLIC PANEL Routine 09/18/2024 4:10 AM CDT DIFFERENTIAL, MANUAL Routine 09/17/2024 9:50 AM CDT C-REACTIVE PROTEIN Routine 09/17/2024 9: 50 AM CDT CBC WITH DIFFERENTIAL Routine 09/17/2024 9:50 AM CDT COMPREHENSIVE METABOLIC PANEL Routine 09/17/2024 9:50 AM CDT POC GLUCOSE Routine 09/17/2024 12:23 AM CDT POC GLUCOSE Routine 09/16/2024 3:56 AM CDT DIFFERENTIAL, MANUAL Routine 09/16/2024 2:19 AM CDT BASIC METABOLIC PANEL Routine 09/16/2024 2:19 AM CDT CBC WITH DIFFERENTIAL Routine 09/16/2024 2:19 AM CDT POC GLUCOSE Routine 09/15/2024 11:28 PM CDT POC GLUCOSE Routine 09/15/2024 7:29 PM CDT CTA CHEST W AND/OR WO CONTRAST Stat 09/15/2024 2:22 PM CDT CREATININE, BODY FLUID Routine 10:48 AM CDT URINE CULTURE Routine 09/15/2024 10:48 AM CDT POC GLUCOSE Routine 09/15/2024 8:55 AM CDT CBC WITH DIFFERENTIAL Routine 09/15/2024 6:20 AM CDT POC GLUCOSE Routine 09/15/2024 4:00 AM CDT BASIC METABOLIC PANEL Routine 09/15/2024 1:33 AM CDT PHOSPHORUS Routine 09/15/2024 1:33 AM CDT MAGNESIUM LEVEL Routine 09/15/2024 1:33 AM CDT POC GLUCOSE Routine 09/14/2024 11:29 PM CDT POC GLUCOSE Routine 09/14/2024 8:36 PM CDT XR ABDOMEN FOR FEEDING TUBE 1 VW Stat 09/14/2024 4:52 PM CDT POC GLUCOSE Routine 09/14/2024 4:51 PM CDT XR ABDOMEN FOR FEEDING TUBE 1 VW Stat 09/14/2024 3:00 PM CDT XR VIDEO SWALLOW W SPEECH Routine 09/14/2024 12:54 PM CDT US DOPPLER VENOUS ARM BILATERAL Stat 09/14/2024 11:16 AM CDT SHELLFISH SHUCKER EVALUATION Routine 09/14/2024 9:[address] PELVIS WO CONTRAST Routine 09/14/2024 9:16 AM CDT DIFFERENTIAL, MANUAL Routine 09/14/2024 9:00 AM CDT PHOSPHORUS Routine 09/14/2024 9:00 AM CDT MAGNESIUM LEVEL Routine 09/14/2024 9:00 AM CDT BASIC METABOLIC PANEL Routine 09/14/2024 9:00 AM CDT CBC WITH DIFFERENTIAL Routine 09/14/2024 9:00 AM CDT POC GLUCOSE Routine 09/14/2024 4:36 AM CDT POC GLUCOSE Routine 09/14/2024 12:39 AM CDT POC GLUCOSE Routine 09/13/2024 8:56 PM CDT POC GLUCOSE Routine 09/13/2024 9:23 AM CDT POC GLUCOSE Routine 09/13/2024 4:45 AM CDT PHOSPHORUS Routine 09/13/2024 4:30 AM CDT MAGNESIUM LEVEL Routine 09/13/2024 4:30 AM CDT BASIC METABOLIC PANEL Routine 09/13/2024 4:30 AM CDT CBC WITH DIFFERENTIAL Routine 09/13/2024 4:30 AM CDT POC GLUCOSE Routine 09/13/2024 12:18 AM CDT POC GLUCOSE Routine 09/12/2024 8:43 PM CDT HSV BY PCR Routine 09/12/2024 6:28 PM CDT PHOSPHORUS Routine 09/12/2024 4:47 AM CDT MAGNESIUM LEVEL Routine 09/12/2024 4:47 AM CDT COMPREHENSIVE METABOLIC PANEL Routine 09/12/2024 4:47 AM CDT CBC WITH DIFFERENTIAL Routine 09/12/2024 4:47 AM CDT TRIGLYCERIDE Routine 09/12/2024 4:47 AM CDT POC GLUCOSE Routine 09/12/2024 4:45 AM CDT POC IONIZED CALCIUM Routine 09/12/2024 4 :45 AM CDT INSERT MIDLINE IV Routine 09/12/2024 1:0 4 AM CDT POC GLUCOSE Routine 09/12/2024 12:17 AM CDT POC GLUCOSE Routine 09/11/2024 9:55 PM CDT POC GLUCOSE Routine 09/11/2024 8:09 PM CDT XR ABDOMEN FOR FEEDING TUBE 1 VW Routine 09/11/2024 5:16 PM CDT POC GLUCOSE Routine 09/11/2024 1:22 PM CDT TRIGLYCERIDE Routine 09/11/2024 3:58 AM CDT PHOSPHORUS Routine 09/11/2024 3:58 AM CDT MAGNESIUM LEVEL Routine 09/11/2024 3:58 AM CDT BASIC METABOLIC PANEL Routine 09/11/2024 3:58 AM CDT CBC WITH DIFFERENTIAL Routine 09/11/2024 3:58 AM CDT POC GLUCOSE Routine 09/11/2024 3:57 AM CDT POC GLUCOSE Routine 09/10/2024 8:28 PM CDT TRANSFUSE PACKED RED BLOOD CELLS Routine 09/10/2024 2:36 PM CDT POC GLUCOSE Routine 09/10/2024 1:34 PM CDT TYPE AND SCREEN Routine 09/10/2024 12:42 PM CDT XR CHEST PA OR AP 1 VW Routine 12:24 PM CDT PREPARE RED BLOOD CELLS Routine 09/11/19 11:18 AM CDT RT ASSESS AND TREAT Routine 09/10/2024 1 0:55 AM CDT POC GLUCOSE Routine 09/10/2024 8:31 AM CDT PHOSPHORUS Routine 09/10/2024 4:17 AM CDT MAGNESIUM LEVEL Routine 09/10/2024 4:17 AM CDT BASIC METABOLIC PANEL Routine 09/10/2024 4:17 AM CDT CBC WITH DIFFERENTIAL Routine 09/10/2024 4:17 AM CDT POC GLUCOSE Routine 09/10/2024 4:16 AM CDT POC GLUCOSE Routine 09/10/2024 12:08 AM CDT POC GLUCOSE Routine 09/09/2024 8:29 PM CDT POC GLUCOSE Routine 09/09/2024 1:15 PM CDT BASIC METABOLIC PANEL Routine 09/09/2024 4:11 AM CDT CBC WITH DIFFERENTIAL Routine 09/09/2024 4:11 AM CDT POC GLUCOSE Routine 09/09/2024 4:09 AM CDT POC GLUCOSE Routine 09/08/2024 8:14 PM CDT POC LACTIC ACID Routine 09/08/2024 7:40 AM CDT BLOOD GAS ARTERIAL Routine 09/08/2024 7: 40 AM CDT POC GLUCOSE Routine 09/08/2024 2:42 AM CDT BASIC METABOLIC PANEL Routine 09/08/2024 2:41 AM CDT CBC WITH DIFFERENTIAL Routine 09/08/2024 2:41 AM CDT URINALYSIS W/REFLEX MICROSCOPIC Routine 09/08/2024 12:42 AM CDT POC GLUCOSE Routine 09/07/2024 7:14 PM CDT PROTIME-INR Routine 09/07/2024 7:11 PM CDT LACTIC ACID Stat 09/07/2024 7:11 PM CDT CBC WITH DIFFERENTIAL Routine 09/07/2024 7:11 PM CDT COMPREHENSIVE METABOLIC PANEL Routine 09/07/2024 7:11 PM CDT XR CHEST PA OR AP 1 VW Routine 5:58 PM CDT POC LACTIC ACID Routine 09/07/2024 5:55 PM CDT BLOOD GAS ARTERIAL Routine 09/07/2024 5: 55 PM CDT PHOSPHORUS Routine 09/07/2024 11:53 AM CDT MAGNESIUM LEVEL Routine 09/07/2024 11:53 AM CDT FOREIGN BODY REMOVAL 09/07/2024 7:20 AM CDT OH BLDR IRRIGATION SMPL LAVAGE &/INSTLJ 09/07/2024 7:20 AM CDT OH COLECTOMY PARTIAL W/ANASTOMOSIS 09/07/2024 7:20 AM CDT WOUND CLOSURE VACUUM ASSISTED 09/07/2024 7:20 AM CDT EXAMINATION UNDER ANESTHESIA 09/07/2024 7:20 AM CDT COLOSTOMY 09/07/2024 7:20 AM CDT POC GLUCOSE Routine 09/07/2024 4:11 AM CDT BASIC METABOLIC PANEL Routine 09/07/2024 4:09 AM CDT CBC WITH DIFFERENTIAL Routine 09/07/2024 4:09 AM CDT LACTIC ACID Stat 09/06/2024 11:46 PM CDT POC LACTIC ACID Routine 09/06/2024 10:47 PM CDT BLOOD GAS ARTERIAL Routine 09/06/2024 10 :47 PM CDT POC GLUCOSE Routine 09/06/2024 8:55 PM CDT CBC WITH DIFFERENTIAL Routine 09/06/2024 8:55 PM CDT BLOOD GAS ARTERIAL Routine 09/06/2024 6: 23 PM CDT PHOSPHORUS Routine 09/06/2024 5:51 PM CDT MAGNESIUM LEVEL Routine 09/06/2024 5:51 PM CDT BASIC METABOLIC PANEL Routine 09/06/2024 5:51 PM CDT PROTIME-INR Routine 09/06/2024 5:51 PM CDT XR CHEST PA OR AP 1 VW Stat 3:41 PM CDT RT ASSESS AND TREAT Routine 09/06/2024 3 :32 PM CDT PATHOLOGY Pathology 09/06/2024 1:06 PM CDT OH ANES INSERT ENDOTRACHEAL AIRWAY Routine 09/06/2024 10:20 AM CDT WOUND CLOSURE VACUUM ASSISTED 09/06/2024 10:02 AM CDT OH CYSTO W/INSERT URETERAL STENT 09/06/2024 10:02 AM CDT OH COLECTOMY PRTL W/RMVL TERMINAL ILEUM & ILEOCOLOS 09/06/2024 10:02 AM CDT COLON RESECTION LOW 09/06/2024 1 0:02 AM CDT LAPAROTOMY EXPLORATORY 10:02 AM CDT BASIC METABOLIC PANEL Routine 09/06/2024 6:20 AM CDT CBC WITH DIFFERENTIAL Routine 09/06/2024 6:20 AM CDT TYPE AND SCREEN Routine 09/05/2024 3:42 PM CDT PREPARE RED BLOOD CELLS Routine 09/06/19 2:05 PM CDT PREPARE RED BLOOD CELLS Routine 09/06/19 2:05 PM CDT BASIC METABOLIC PANEL Routine 09/05/2024 4:33 AM CDT CBC WITH DIFFERENTIAL Routine 09/05/2024 4:33 AM CDT BASIC METABOLIC PANEL Routine 09/04/2024 4:19 AM CDT CBC WITH DIFFERENTIAL Routine 09/04/2024 4:19 AM CDT BASIC METABOLIC PANEL Routine 09/03/2024 4:24 AM CDT CBC WITH DIFFERENTIAL Routine 09/03/2024 4:24 AM CDT XR BARIUM ENEMA Routine 09/02/2024 2:32 PM CDT BASIC METABOLIC PANEL Routine 09/02/2024 6:42 AM CDT CBC WITH DIFFERENTIAL Routine 09/02/2024 6:42 AM CDT PHOSPHORUS Routine 09/01/2024 4:40 PM CDT MAGNESIUM LEVEL Routine 09/01/2024 4:40 PM CDT BASIC METABOLIC PANEL Routine 09/01/2024 3:28 AM CDT CBC WITH DIFFERENTIAL Routine 09/01/2024 3:28 AM CDT PHOSPHORUS Routine 08/31/2024 3:37 AM CDT MAGNESIUM LEVEL Routine 08/31/2024 3:37 AM CDT COMPREHENSIVE METABOLIC PANEL Routine 08/31/2024 3:37 AM CDT CBC WITH DIFFERENTIAL Routine 08/31/2024 3:[address] CYSTOGRAM WITHOUT IV CONTRAST Stat 08/31/2024 2:23 AM CDT URINALYSIS W/REFLEX MICROSCOPIC Stat 08/30/2024 10:45 PM CDT URINE CULTURE Routine 08/30/2024 10:[address] ABDOMEN PELVIS W CONTRAST Stat 08/30/2024 9:47 AM CDT PTT Stat 08/30/2024 8:40 AM CDT PROTIME-INR Stat 08/30/2024 8:40 AM CDT MAGNESIUM LEVEL Stat 08/30/2024 8:40 AM CDT C-REACTIVE PROTEIN Stat 08/30/2024 8: 40 AM CDT LACTIC ACID Stat 08/30/2024 8:40 AM CDT LIPASE Stat 08/30/2024 8:40 AM CDT BRAIN NATRIURETIC PEPTIDE, BNP OR PROBNP Stat 08/30/2024 8:40 AM CDT COMPREHENSIVE METABOLIC PANEL Stat 08/30/2024 8:40 AM CDT SEDIMENTATION RATE Stat 08/30/2024 8: 40 AM CDT CBC WITH DIFFERENTIAL Stat 08/30/2024 8:40 AM CDT from Last 3 Months Results * CT ABDOMEN PELVIS W CONTRAST (11/05/2024 1:41 AM CDT) Only the most recent of3 resultswithin the time period is included. Anatomical Region Laterality Modality Abdomen Computed Tomogra phy 11/05/2024 1:13 AM CDT Impressions 11/05/2024 10:45 AM CDT IMPRESSION: 1. No new acute intra-abdominal findings; no evidence of an intra-abdominal abscess or bowel obstruction. 2. Mild nonspecific lower esophageal wall thickening, most commonly secondary to GERD/reflux esophagitis. 3. Otherwise as above. Narrative 11/05/2024 10:45 AM CDT EXAM: CT ABDOMEN PELVIS W CONTRAST DATE/TIME OF EXAM: 11/05/2024 1:41 AM REASON FOR EXAM: lower abdominal tenderness DIAGNOSIS: See Reason for Exam COMPARISON: 10/26/2024 TECHNIQUE: Multiple contiguous axial CT images were obtained of the abdomen and pelvis after administration of intravenous contrast. Supplemental 2D reformatted images were generated and reviewed as needed. FINDINGS: Lower chest: No acute findings. Subtle nonspecific lower esophageal wall thickening. Liver: Attenuation of the liver suggests steatosis. No acute findings or suspicious liver mass. Gallbladder and Bile ducts: Status post a cholecystectomy. Bile ducts are nondilated. Spleen: Normal. Pancreas: Normal. Adrenals: Normal. Kidneys, ureters, and urinary bladder: Kidneys are normal in size. No acute findings; no hydronephrosis. Decompressed urinary bladder. 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 No significant bowel distention or new bowel wall thickening. No new acute abnormalities. Peritoneum/retroperitoneum: No ascites. No enlarged retroperitoneal lymph nodes. Vascular: No abdominal aortic aneurysm. Small calcified splenic artery aneurysm appears unchanged. Reproductive: Status post a hysterectomy. The vaginal cuff is inseparable from the inferior resection margin of the Sanchez's pouch/rectal stump. Bone and soft tissues: No suspicious bony lesions. Degenerative changes throughout the visualized spine. Procedure Note Damien Yanez MD - 11/05/2024 EXAM: CT ABDOMEN PELVIS W CONTRAST DATE/TIME OF EXAM: 11/05/2024 1:41 AM REASON FOR EXAM: lower abdominal tenderness DIAGNOSIS: See Reason for Exam COMPARISON: 10/26/2024 TECHNIQUE: Multiple contiguous axial CT images were obtained of the abdomen and pelvis after administration of intravenous contrast. Supplemental 2D reformatted images were generated and reviewed as needed. FINDINGS: Lower chest: No acute findings. Subtle nonspecific lower esophageal wall thickening. Liver: Attenuation of the liver suggests steatosis. No acute findings or suspicious liver mass. Gallbladder and Bile ducts: Status post a cholecystectomy. Bile ducts are nondilated. Spleen: Normal. Pancreas: Normal. Adrenals: Normal. Kidneys, ureters, and urinary bladder: Kidneys are normal in size. No acute findings; no hydronephrosis. Decompressed urinary bladder. 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 No significant bowel distention or new bowel wall thickening. No new acute abnormalities. Peritoneum/retroperitoneum: No ascites. No enlarged retroperitoneal lymph nodes. Vascular: No abdominal aortic aneurysm. Small calcified splenic artery aneurysm appears unchanged. Reproductive: Status post a hysterectomy. The vaginal cuff is inseparable from the inferior resection margin of the Sanchez's pouch/rectal stump. Bone and soft tissues: No suspicious bony lesions. Degenerative changes throughout the visualized spine. IMPRESSION: 1. No new acute intra-abdominal findings; no evidence of an intra-abdominal abscess or bowel obstruction. 2. Mild nonspecific lower esophageal wall thickening, most commonly secondary to GERD/reflux esophagitis. 3. Otherwise as above. Nicole Golden MD CT ORDERABLES Final Result * (ABNORMAL) URINALYSIS WITH REFLEX CULTURE (11/05/2024 1:12 AM CDT) Only the most recent of2 resultswithin the time period is included. COLOR UA Yellow Pale to Dark Yellow 11/05/2024 1:30 AM [facility] CLARITY UA Clear Clear 11/05/2024 1:30 AM [facility] SPECIFIC GRAVITY UA <=1.005 1.003 - 1.035 11/05/2024 1:30 AM [facility] PH UA 6.0 5.0 - 8.0 11/05/2024 1:30 AM [facility] LEUKOCYTE ESTERASE UA 1+(A) Negative 11/05/2024 1:30 AM [facility] NITRITE UA Negative Negative 11/05/2024 1:30 AM [facility] PROTEIN UA Negative Negative 11/05/2024 1:30 AM [facility] GLUCOSE UA Negative Negative 11/05/2024 1:30 AM [facility] KETONES UA 2+(A) Negative 11/05/2024 1:30 AM [facility] UROBILINOGEN UA 0.2 <2.0 mg/dL 1:30 AM [facility] BILIRUBIN UA Negative Negative 11/05/2024 1:30 AM [facility] BLOOD UA Trace(A) Negative 11/05/2024 1:30 AM CDT [facility] Comment: For patients with 'trace' results, consider ordering a culture and sensitivity if clinically indicated. Urine URINE SPECIMEN OBTAINED BY CLEAN CATCH PROCEDURE / Unknown Collection / Unknown 11/05/2024 1:12 AM CDT 11/05/2024 1:17 AM CDT Narrative [facility] - 11/05/2024 1:30 AM CDT Based on results, a urine culture has been reflexed. Nicole Golden MD URINE ORDERABLES Final Resul t Performing Organization Address City/[facility]/ZIP Co de Phone Number [facility] CLIA # [id number] [address] [place] [phone] * (ABNORMAL) URINALYSIS MICROSCOPY ONLY (11/05/2024 1:12 AM CDT) WBC UA 0-2 0 - 2 /hpf 11/05/2024 1:30 AM CDT [facility] RBC UA 0-2 0 - 2 /hpf 11/05/2024 1:30 AM CDT [facility] BACTERIA UA Negative Negative /hpf 11/05/2024 1:30 AM CDT [facility] EPITHELIAL CELLS, URINE 6-10(A) 0 - 5 /hpf 11/05/2024 1:30 AM CDT [facility] YEAST, BUDDING Present(A) Absent 11/05/2024 1:30 AM CDT [facility] Urine URINE SPECIMEN OBTAINED BY CLEAN CATCH PROCEDURE / Unknown Collection / Unknown 11/05/2024 1:12 AM CDT 11/05/2024 1:17 AM CDT Nicole Golden MD URINE ORDERABLES Final Resul t [facility] CLIA # [id number] [address] [place] [address] * URINE CULTURE (11/05/2024 1:12 AM CDT) Only the most recent of6 resultswithin the time period is included. CULTURE Polymicrobial growth consistent with normal urethral magali and/or colonizing bacteria 11/06/2024 12:47 PM CDT [facility] Urine URINE SPECIMEN OBTAINED BY CLEAN CATCH PROCEDURE / Unknown Collection / Unknown 11/05/2024 1:12 AM CDT 11/05/2024 1:19 AM CDT Nicole Golden MD MICROBIOLOGY - GENERAL ORDER KARON Final Result [facility] CLIA # [id number] [address] [place] [address] * (ABNORMAL) CBC WITH DIFFERENTIAL (11/05/2024 12:47 AM CDT) Only the most recent of38 resultswithin the time period is included. Pathologist [facility] WBC 12.0(H) 4.0 - 10.0 K/uL 11/05/2024 1:00 AM [facility] RBC 5.36(H) 3.93 - 5.22 M/uL 11/05/2024 1:00 AM [facility] HEMOGLOBIN 14.5 11.2 - 15.7 g/dL 11/05/2024 1:00 AM [facility] HEMATOCRIT 44.6 34.1 - 44.9 % 11/05/2024 1:00 AM [facility] MCV 83.2 79.4 - 94.8 fL 11/05/2024 1:00 AM [facility] MCH 27.1 25.6 - 32.2 pg 11/05/2024 1:00 AM [facility] MCHC 32.5 32.2 - 35.5 g/dL 11/05/2024 1:00 AM [facility] RDW 15.8(H) 11.0 - 14.5 % 11/05/2024 1:00 AM [facility] RDW-STDEV 47.6 36.9 - 56.9 fL 11/05/2024 1:00 AM [facility] PLATELETS 335 163 - 337 K/uL 11/05/2024 1:00 AM [facility] MPV 9.9(L) 10.0 - 14.8 fL 11/05/2024 1:00 AM [facility] NEUTROPHILS 62 34 - 71 % 11/05/2024 1:00 AM [facility] LYMPHOCYTES 26 19 - 52 % 11/05/2024 1:00 AM [facility] MONOCYTES 10 5 - 13 % 11/05/2024 1:00 AM [facility] EOSINOPHILS 2 1 - 6 % 11/05/2024 1:00 AM [facility] BASOPHILS 1 0 - 1 % 11/05/2024 1:00 AM [facility] IMMATURE GRANULOCYTES 0 % 11/05/2024 1:00 AM [facility] NEUTROPHIL ABSOLUTE 7.40(H) 1.56 - 6.13 K/uL 11/05/2024 1:00 AM [facility] LYMPHOCYTE ABSOLUTE 3.08 1.20 - 3.40 K/uL 11/05/2024 1:00 AM [facility] MONOCYTE ABSOLUTE 1.16(H) 0.24 - 0.36 K/uL 11/05/2024 1:00 AM [facility] EOSINOPHIL ABSOLUTE 0.19 0.04 - 0.36 K/uL 11/05/2024 1:00 AM [facility] BASOPHILS ABSOLUTE 0.09(H) 0.01 - 0.08 K/uL 11/05/2024 1:00 AM [facility] IMMATURE GRANULOCYTES ABSOLUTE 0.04 K/uL 11/05/2024 1:00 AM [facility] Blood Venipuncture / Unknown 11/05/2024 12:47 AM CDT 11/05/2024 12:53 AM CDT Nicole Golden MD HEMATOLOGY ORDERABLES Final Result [facility] CLIA # [id number] [address] [place] [address] * LIPASE (11/05/2024 12:47 AM CDT) Only the most recent of3 resultswithin the time period is included. LIPASE 44 13 - 60 U/L 11/05/2024 1:11 AM T [facility] Blood Venipuncture / Unknown 11/05/2024 12:47 AM CDT 11/05/2024 12:53 AM CDT Nicole Golden MD CHEMISTRY ORDERABLES Final R esult Performing Organization Address City/[facility]/ZIP Co de Phone Number [id number] [address] [place] [address] * (ABNORMAL) COMPREHENSIVE METABOLIC PANEL (11/05/2024 12:47 AM CDT) Only the most recent of20 resultswithin the time period is included. SODIUM 136 136 - 145 mmol/L 11/05/2024 1:11 AM [facility] POTASSIUM 3.0(L) 3.5 - 5.1 mmol/L 11/05/2024 1:11 AM [facility] CHLORIDE 95(L) 98 - 107 mmol/L 11/05/2024 1:11 AM [facility] CO2 21(L) 22 - 29 mmol/L 11/05/2024 1:11 AM [facility] CALCIUM 9.2 8.8 - 10.2 mg/dL 11/05/2024 1:11 AM [facility] BUN 5(L) 8 - 23 mg/dL 11/05/2024 1:11 AM [facility] CREATININE 0.54 0.51 - 0.95 mg/dL 11/05/2024 1:11 AM [facility] Comment:The GFR result is no t clinically significant on patients <18 or >70 years of age. GLUCOSE 103(H) 74 - 99 mg/dL 11/05/2024 1:11 AM [facility] TOTAL PROTEIN 6.9 6.6 - 8.7 g/dL 11/05/2024 1:11 AM [facility] ALBUMIN 3.4(L) 3.5 - 5.2 g/dL 11/05/2024 1:11 AM [facility] BILIRUBIN TOTAL 0.5 0.0 - 1.2 mg/dL 11/05/2024 1:11 AM [facility] ALKALINE PHOSPHATASE 79 35 - 104 U/L 11/05/2024 1:11 AM [facility] AST 28 0 - 35 U/L 11/05/2024 1:11 AM [facility] ALT 10 0 - 35 U/L 11/05/2024 1:11 AM [facility] GFR >60 mL/min/1.7 3 sq meter 11/05/2024 1:11 AM [facility] Comment:eGFR calculated with 2020 CKD-EPI equation. Vegetarian diet, extremely high or low muscle mass, and may affect results. Cystatin C with Glomerular Filtration Rate is a suitable alternative for these patients. ANION GAP 20 5 - 20 mmol/L 11/05/2024 1:11 AM [facility] Blood Venipuncture / Unknown 11/05/2024 12:47 AM CDT 11/05/2024 12:53 AM CDT us Nicole Golden MD CHEMISTRY ORDERABLES Final R esult [facility] CLIA # [id number] [address] [place] [address] * (ABNORMAL) BASIC METABOLIC PANEL (10/29/2024 4:23 AM CDT) Only the most recent of20 resultswithin the time period is included. SODIUM 139 136 - 145 mmol/L 10/29/2024 5:49 AM [facility] POTASSIUM 3.6 3.5 - 5.1 mmol/L 10/29/2024 5:49 AM [facility] CHLORIDE 105 98 - 107 mmol/L 10/29/2024 5:49 AM [facility] CO2 24 22 - 29 mmol/L 10/29/2024 5:49 AM [facility] CALCIUM 8.7(L) 8.8 - 10.2 mg/dL 10/29/2024 5:49 AM [facility] BUN 1(L) 8 - 23 mg/dL 10/29/2024 5:49 AM [facility] CREATININE 0.46(L) 0.51 - 0.95 mg/dL 10/29/2024 5:49 AM [facility] Comment:The GFR result is no t clinically significant on patients <18 or >70 years of age. GLUCOSE 105(H) 74 - 99 mg/dL 10/29/2024 5:49 AM [facility] GFR >60 mL/min/1. 73 sq meter 10/29/2024 5:49 AM [facility] Comment:eGFR calculated with 2020 CKD-EPI equation. Vegetarian diet, extremely high or low muscle mass, and may affect results. Cystatin C with Glomerular Filtration Rate is a suitable alternative for these patients. ANION GAP 10 9 - 20 mmol/L 10/29/2024 5:49 AM [facility] Blood Venipuncture / Unknown 10/29/2024 4:23 AM CDT 10/29/2024 4:59 AM CDT us Marian Calix MD CHEMISTRY ORDERABLES Christiana hernandez Result [facility] CLIA # [id number] [address] [place] [address] [place] [address] * MAGNESIUM LEVEL (10/28/2024 6:14 AM CDT) Only the most recent of17 resultswithin the time period is included. Pathologist [facility] MAGNESIUM 1.7 1.6 - 2.4 mg/dL 10/28/2024 10:11 AM CDT [facility] Blood Venipuncture / Unknown 10/28/2024 6:14 AM CDT 10/28/2024 6:28 AM CDT us Marian Calix MD CHEMISTRY ORDERABLES Christiana l Result [facility] CLIA # [id number] [address] [place] [address] * (ABNORMAL) GI PATHOGEN PCR PANEL (10/27/2024 10:56 AM CDT) [facility] C difficile toxin A/B by PCR DETECTED( A) Not Detected 10/27/2024 1:05 PM CDT [facility] Comment: The [employer] GI PCR panel identifies the presence of C. difficile in the stool specimen but cannot differentiate between asymptomatic carriage and clinical infection. If clinically warranted, place patient in Contact Precautions-gown and gloves for every entry into patient rooms. Wash hands with soap and water. Stool STOOL SPECIMEN / Unknown Collection / Unknown 10/27/2024 10:56 AM CDT 10/27/2024 11:01 AM CDT Narrative [facility] - 10/27/2024 1:05 PM CDT C. Diff toxin A/B detected called to Marixa Dao RN by POLLO ROBERTS on 10/27/2024 at 1:04 PM with verbal readback. The [employer] GI Panel is a multiplexed nucleic acid detection test for 22 targets of bacteria, viruses, and parasites in stool that cause infectious diarrhea. Bacteria: Campylobacter C. difficile Plesiomonas shigelloides Salmonella Vibrio Vibrio cholerae Yersinia enterocolitica Enteroaggregative E. Coli (EAEC) Enteropathogenic E. Coli (EPEC) Enterotoxigenic E. Coli (ETEC) Shiga-like toxin-producing E. Coli (STEC) E. Coli O157 Shigella/Enteroinvasive E. Coli (EIEC) Viruses: Adenovirus F 40/41 Astrovirus Norovirus GI/GII Rotavirus A Sapovirus Parasites: Cryptosporidium Cyclospora cayetanensis Entamoeba histolytica Giardia duodenalis us Marian Calix MD MICROBIOLOGY - GENERAL OR DERABLES Final Result Performing Organization Address City/[facility] Co de Phone Number [facility] CLIA # [id number] [address] [address] * (ABNORMAL) POTASSIUM LEVEL (10/26/2024 11:21 AM CDT) [facility] POTASSIUM 3.3(L) 3.5 - 5.1 mmol/L 10/26/2024 11:58 AM CDT [facility] Blood Venipuncture / Unknown 10/26/2024 11:21 AM CDT 10/26/2024 11:33 AM CDT us Deandra Delgado MD CHEMISTRY ORDERABLES Final Re sult Performing Organization Address [facility] Co de Phone Number [facility] CLIA # [id number] [address] [address] * EXTRA TUBE (URINE BOB) (10/26/2024 10:20 AM CDT) Urine URINE SPECIMEN OBTAINED BY CLEAN CATCH PROCEDURE / Unknown Collection / Unknown 10/26/2024 10:20 AM CDT 10/26/2024 10:24 AM CDT us Areli Negrete DO URINE ORDERABLES Final Result Performing Organization Address [facility] Co de Phone Number [facility] CLIA # [id number] [address] [place] [address] * (ABNORMAL) URINALYSIS WITH REFLEX MICROSCOPIC (10/26/2024 10:20 AM [facility]) Only the most recent of4 resultswithin the time period is included. COLOR UA Yellow Pale to Dark Yellow 10/26/2024 11:09 AM [facility] CLARITY UA Clear Clear 10/26/2024 11:09 AM [facility] SPECIFIC GRAVITY UA 1.020 1.003 - 1.035 10/26/2024 11:09 AM [facility] PH UA 5.5 5.0 - 8.0 10/26/2024 11:09 AM [facility] LEUKOCYTE ESTERASE UA 1+(A) Negative 10/26/2024 11:09 AM [facility] NITRITE UA Positive(A) Negative 10/26/2024 11:09 AM [facility] PROTEIN UA 1+(A) Negative 10/26/2024 11:09 AM [facility] GLUCOSE UA Negative Negative 10/26/2024 11:09 AM [facility] KETONES UA 3+(A) Negative 10/26/2024 11:09 AM [facility] UROBILINOGEN UA 0.2 <2.0 mg/dL 11:09 AM [facility] BILIRUBIN UA 1+(A) Negative 10/26/2024 11:09 AM [facility] Comment:Test not confirmed. BLOOD UA Negative Negative 10/26/2024 11:09 AM [facility] WBC UA 3-5(A) 0 - 2 /hpf 10/26/2024 11:09 AM [facility] RBC UA 3-5(A) 0 - 2 /hpf 10/26/2024 11:09 AM [facility] BACTERIA UA 1+(A) Negative /hpf 10/26/2024 11:09 AM [facility] EPITHELIAL CELLS, URINE 0-5 0 - 5 /hpf 10/26/2024 11:09 AM CDT [facility] HYALINE CAST 0-2 None Seen, 0-2 /lpf 10/26/2024 11:09 AM CDT [facility] Urine URINE SPECIMEN OBTAINED BY CLEAN CATCH PROCEDURE / Unknown Collection / Unknown 10/26/2024 10:20 AM CDT 10/26/2024 10:24 AM CDT Areli Negrete DO URINE ORDERABLES Final Result Performing Organization Address City/[facility]/ZIP Co de Phone Number [facility] CLIA # [id number] [address] [place] [address] * LACTIC ACID (10/26/2024 9:46 AM CDT) Only the most recent of4 resultswithin the time period is included. LACTIC ACID 1.0 <=2.0 mmol/L 10/26/2024 10:24 AM T [facility] Blood BLOOD SPECIMEN / Unknown Venipuncture / Unknown 10/26/2024 9:46 AM CDT 10/26/2024 9:49 AM CDT Areli Negrete DO CHEMISTRY ORDERABLES Final Resul t [facility] CLIA # [id number] Critical access hospital[address] [address] * (ABNORMAL) KETONES/BETA HYDROXYBUTYRATE (10/26/2024 4:51 AM CDT) BETA HYDROXYBUTYRATE 3.7(H) 0.0 - 0.3 mmol/L 10/26/2024 10:17 AM CDT [facility] Blood Venipuncture / Unknown 10/26/2024 4:51 AM CDT 10/26/2024 4:58 AM CDT Deandra Delgado MD CHEMISTRY ORDERABLES Final Re sult Performing Organization Address City/[facility]/ZIP Co de Phone Number [facility] CLIA # [id number] [address] [place] [address] * (ABNORMAL) C-REACTIVE PROTEIN (10/26/2024 4:51 AM CDT) Only the most recent of9 resultswithin the time period is included. CRP 46.3(H) 0.0 - 5.0 mg/L 10/26/2024 10:17 AM CDT [facility] Blood Venipuncture / Unknown 10/26/2024 4:51 AM CDT 10/26/2024 4:58 AM CDT Deandra Delgado MD CHEMISTRY ORDERABLES Final Re sult Performing Organization Address [facility] Co de Phone Number [facility] CLIA # [id number] [address] [address] [place], [place] [id number] * (ABNORMAL) AMYLASE (10/26/2024 4:51 AM CDT) AMYLASE 25(L) 28 - 100 U/L 10/26/2024 10:21 AM CDT [facility] Blood Venipuncture / Unknown 10/26/2024 4:51 AM CDT 10/26/2024 4:58 AM CDT Deandra Delgado MD CHEMISTRY ORDERABLES Final Re sult Performing Organization Address City/[facility]/ZIP Co de Phone Number [facility] [employer] [facility] CLIA # [id number] [address] [place] [address] * PHOSPHORUS (10/06/2024 5:22 PM CDT) Only the most recent of12 resultswithin the time period is included. PHOSPHORUS 3.5 2.5 - 4.5 mg/dL 10/06/2024 6:34 PM CDT [facility] Blood Collection / Unknown 10/06/2024 5:22 PM CDT 10/06/2024 6:11 PM CDT External Provider [facility] CHEMISTRY ORDERABLES Final Result Performing Organization Address City/[facility]/ZIP Co de Phone Number [facility] [facility] CLIA # [id number] [address] [address] * MANUAL DIFFERENTIAL (09/25/2024 3:00 AM CDT) Only the most recent of5 resultswithin the time period is included. Pathologist [facility] PLATELET EST. Increased 09/25/2024 9:34 AM CDT [facility] ANISOCYTOSIS 3+ /hpf 09/25/2024 9:34 AM CDT [facility] POLYCHROMASIA 1+ /hpf 09/25/2024 9:34 AM CDT [facility] Blood Collection / Unknown 09/25/2024 3:00 AM CDT 09/25/2024 8:55 AM CDT External Provider [facility] HEMATOLOGY ORDERABLES COM Final Result [facility] CLIA # [id number] [address] [address] * T4 FREE (09/23/2024 4:30 AM CDT) Pathologist [facility] T4 FREE 1.39 0.81 - 1.70 ng/dL 09/23/2024 1:06 PM CDT [facility] Blood Collection / Unknown 09/23/2024 4:30 AM CDT 09/23/2024 5:47 AM CDT External Provider [facility] CHEMISTRY ORDERABLES Final Result Performing Organization Address City/[facility]/ZIP Co de Phone Number [facility] CLIA # [id number] [address] [address] [place] [address] * (ABNORMAL) TSH (09/22/2024 3:15 PM CDT) Pathologist [facility] TSH 5.47(H) 0.27 - 4.20 uIU/mL 09/22/2024 7:14 PM CDT [facility] Blood Collection / Unknown 09/22/2024 3:15 PM CDT 09/22/2024 6:43 PM CDT Harry Reyes DO CHEMISTRY ORDERABLES Final R esult Performing Organization Address [facility]/ZIP Co de Phone Number [facility] CLIA # [id number] [address] [address] * (ABNORMAL) TROPONIN (09/22/2024 4:15 AM CDT) TROPONIN T, 5TH GEN 28(H) <=10 ng/L 09/22/2024 5:50 AM CDT [facility] Blood Collection / Unknown 09/22/2024 4:15 AM CDT 09/22/2024 5:17 AM CDT Narrative [facility] - 09/22/2024 5:50 AM CDT Troponin elevated. Harry Hernandez Amy DO CHEMISTRY ORDERABLES Final R esult [facility] CLIA # [id number] [address] [place] [address] * (ABNORMAL) POC GLUCOSE (09/17/2024 12:23 AM CDT) Only the most recent of35 resultswithin the time period is included. GLUCOSE POC 135(H) 74 - 99 mg/dL 09/17/2024 12:23 AM CDT [facility] SPECIMEN SOURCE, GLUCOSE POC Capillary 09/17/2024 12:23 AM CDT [facility] Blood, whole 09/17/2024 12:2 3 AM CDT 09/17/2024 12:37 AM CDT Dinesh Toussaint MD POINT OF CARE TESTING Final Result [facility] CLIA # [id number] [address] [address] * CTA CHEST W AND/OR WO CONTRAST (09/15/2024 2:22 PM CDT) Anatomical Region Laterality Modality Chest Computed Tomogra phy 09/15/2024 2:07 PM CDT Impressions 09/15/2024 3:54 PM CDT IMPRESSION: No pulmonary embolus visualized. Diffuse but mild groundglass opacities are seen throughout the lungs likely infectious/inflammatory. Mild left lower lobe atelectasis/consolidation is noted. Small left pleural effusion. Narrative 09/15/2024 3:54 PM CDT CTA CHEST W AND/OR WO CONTRAST; Reason For Exam: Pulmonary embolism (PE) suspected, high prob. Diagnosis: See Reason for Exam. COMPARISON: None. TECHNIQUE: During the administration of nonionic intravenous contrast, helical scanning was obtained of the chest. The patient tolerated the procedure and there were no immediate complications. Coronal, sagittal and MIP reformations were reconstructed. FINDINGS: PULMONARY ARTERIES: Good opacification of the pulmonary arteries are seen. No filling defects are seen. No pulmonary emboli are seen. HEART: Heart size is within normal limits for age. RV/LV INDEX: RV/LV index is < 0.9 LUNGS: Mild scattered patchy groundglass opacities are noted diffusely but particularly on the left. Mild left lower lobe atelectasis/consolidation. PLEURA: Small left pleural effusion. LYMPH NODES: No pathologically enlarged mediastinal, axillary, or hilar lymph nodes. AORTA: Visualized portions of the aorta is within normal limits for age. OSSEOUS STRUCTURES: The visualized skeletal structures are intact. UPPER ABDOMEN: Unremarkable. Procedure Note Wiley Mascorro MD - 09/15/2024 CTA CHEST W AND/OR WO CONTRAST; Reason For Exam: Pulmonary embolism (PE) suspected, high prob. Diagnosis: See Reason for Exam. COMPARISON: None. TECHNIQUE: During the administration of nonionic intravenous contrast, helical scanning was obtained of the chest. The patient tolerated the procedure and there were no immediate complications. Coronal, sagittal and MIP reformations were reconstructed. FINDINGS: PULMONARY ARTERIES: Good opacification of the pulmonary arteries are seen. No filling defects are seen. No pulmonary emboli are seen. HEART: Heart size is within normal limits for age. RV/LV INDEX: RV/LV index is < 0.9 LUNGS: Mild scattered patchy groundglass opacities are noted diffusely but particularly on the left. Mild left lower lobe atelectasis/consolidation. PLEURA: Small left pleural effusion. LYMPH NODES: No pathologically enlarged mediastinal, axillary, or hilar lymph nodes. AORTA: Visualized portions of the aorta is within normal limits for age. OSSEOUS STRUCTURES: The visualized skeletal structures are intact. UPPER ABDOMEN: Unremarkable. IMPRESSION: No pulmonary embolus visualized. Diffuse but mild groundglass opacities are seen throughout the lungs likely infectious/inflammatory. Mild left lower lobe atelectasis/consolidation is noted. Small left pleural effusion. us Lisa Roman DO CT ORDERABLES Final Result * CREATININE, BODY FLUID (09/15/2024 10:48 AM CDT) CREATININE, FLD 0.59 mg/dL 09/15/2024 11:43 AM CDT [facility] SERVICES [facility] Body fluid ABDOMEN AND PELVIS / Unknown Collection / Unknown 09/15/2024 10:48 AM CDT 09/15/2024 10:54 AM CDT Narrative [facility] - 09/15/2024 11:43 AM CDT Interpretive Criteria: Creatinine Fluid Note: Greater than 1 - 2 times serum creatinine suggests urine contamination. The reference range and other method performance specifications are unavailable for this body fluid. Comparison of this result with the concentration in the blood, serum, or plasma is recommended. us Lisa Roman DO BODY FLUIDS AND STOOLS Final Re sult [facility] # [id number] [address] [place] [address] * XR ABDOMEN FOR FEEDING TUBE 1 VW (09/14/2024 4:52 PM CDT) Only the most recent of3 resultswithin the time period is included. Anatomical Region Laterality Modality Abdomen Computed Radiogr aphy 09/14/2024 4:52 PM CDT Impressions 09/14/2024 5:11 PM CDT IMPRESSION: Please see below. Exam: XR ABDOMEN FOR FEEDING TUBE 1 VW Date/Time of Exam: 09/14/2024 4:52 PM Reason For Exam: Check Tube Placement. Diagnosis: See Reason for Exam. Findings: There are no comparisons. A feeding tube is in place with the distal end in the gastric antrum. There is a small amount of contrast in the stomach. Narrative Procedure Note Iliana Ratliff MD - 09/14/2024 IMPRESSION: Please see below. Exam: XR ABDOMEN FOR FEEDING TUBE 1 VW Date/Time of Exam: 09/14/2024 4:52 PM Reason For Exam: Check Tube Placement. Diagnosis: See Reason for Exam. Findings: There are no comparisons. A feeding tube is in place with the distal end in the gastric antrum. There is a small amount of contrast in the stomach. us Lea Herrera [employer] DIAGNOSTIC IMAGING ORDERABLES Final Result * XR VIDEO SWALLOW W SPEECH (09/14/2024 12:54 PM CDT) Anatomical Region Laterality Modality Chest Computed Radiogr aphy 09/14/2024 12:5 5 PM CDT Impressions 09/14/2024 1:05 PM CDT IMPRESSION: Please see below. Exam: XR VIDEO SWALLOW W SPEECH Date/Time of Exam: 09/14/2024 12:54 PM Reason For Exam: Difficulty Swallowing. This procedure was performed and preliminary findings dictated by Ilya Fulton PA-C. Supervision and final interpretation by Dr. Ratliff. Fluoroscopy was used for performance of video swallow study. The patient was given multiple consistencies of contrast material. The cervical esophagus is patent without stricture or obstruction. Airway penetration and aspiration. 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 For further details regarding swallowing, please see detailed speech pathology report. Narrative Procedure Note Iliana Ratliff MD - 09/14/2024 IMPRESSION: Please see below. Exam: XR VIDEO SWALLOW W SPEECH Date/Time of Exam: 09/14/2024 12:54 PM Reason For Exam: Difficulty Swallowing. This procedure was performed and preliminary findings dictated by Ilya Fulton PA-C. Supervision and final interpretation by Dr. Ratliff. Fluoroscopy was used for performance of video swallow study. The patient was given multiple consistencies of contrast material. The cervical esophagus is patent without stricture or obstruction. Airway penetration and aspiration. 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 For further details regarding swallowing, please see detailed speech pathology report. Lea Herrera [facility] DIAGNOSTIC IMAGING ORDERABLES Final Result * US DOPPLER VENOUS ARM BILATERAL (09/14/2024 11:16 AM CDT) Anatomical Region Laterality Modality Upper Extremity Ultrasound 09/14/2024 7:32 AM CDT Narrative 09/14/2024 1:59 PM CDT [facility] Cardiovascular Services Noninvasive Vascular Laboratory [address] [place] [address] Noninvasive Vascular Lab Venous Exam Complete Upper Extremity Duplex Patient: Dianelys Reagan Study ID: US DOPPLER VENOU Gender: F : 1950 Age: 74 Room: [facility] Height: Weight: BSA: Pt status: Inpatient Study Date: 09/14/2024 Study Time: 07:32:26 AM BSA: Ordering: Dana Eddy Interpreting:Emiliano Caraballo Teletray Operator: Randa Cross RVT Indications: Edema. History: Swelling of both upper extremities. Summary Impression: 1. No evidence of deep vein thrombosis involving the veins of the right upper extremity, veins of the left upper extremity, right internal jugular vein, right subclavian vein, left internal jugular vein, and left subclavian vein. 2. Study demonstrates acute superficial vein thrombosis involving the the right cephalic vein and the left cephalic vein. Study data: Bilateral upper extremity venous duplex. Doppler flow study including spectral analysis, color and bob scale imaging. Location: Bedside. Patient status: Inpatient. Study status: Routine. Procedure: A vascular evaluation was performed. Image quality was fair. Venous flow and imaging: - Right internal jugular Patent; Normal phasicity; spontaneous; normal augmentation - Right subclavian Patent; Normal phasicity; spontaneous; normal augmentation - Right axillary Patent; Normal phasicity; spontaneous; compressible; normal augmentation - Right brachial Patent; Normal phasicity; spontaneous; compressible; normal augmentation - Right cephalic Thrombosed; Acute - Right basilic Patent; Compressible - Right radial Patent; Compressible - Right ulnar Patent; Compressible - Left internal jugular Patent; Normal phasicity; spontaneous; normal augmentation - Left subclavian Patent; Normal phasicity; spontaneous; normal augmentation - Left axillary Patent; Normal phasicity; spontaneous; compressible; normal augmentation - Left brachial Patent; Normal phasicity; spontaneous; compressible; normal augmentation - Left cephalic Thrombosed; Acute - Left basilic Patent; Compressible - Left radial Patent; Compressible - Left ulnar Patent; Compressible CRITICAL FINDINGS - Reported to: Caridad - Read back and verified. - 09/14/24 - 7:50 - Svt [facility] Vascular Lab is accredited with the Intersocietal Commission for the Accreditation of Vascular Laboratories (ICAVL) Prepared and Electronically Authenticated Emiliano Caraballo Confirmed 09/14/2024 13:59 Procedure Note Emiliano Caraballo MD - 09/14/2024 [facility] Cardiovascular Services Noninvasive Vascular Laboratory [facility] [place] [address] Noninvasive Vascular Lab Venous Exam Complete Upper Extremity Duplex Patient: Dianelys Reagan Study ID: US DOPPLER VENOU Gender: F : 1950 Age: 74 Room: [facility] Height: Weight: BSA: Pt status: Inpatient Study Date: 09/14/2024 Study Time: 07:32:26 AM BSA: Ordering: Dana Eddy Interpreting:Emiliano Caraballo Teletray Operator: Randa Cross RVT Indications: Edema. History: Swelling of both upper extremities. Summary Impression: 1. No evidence of deep vein thrombosis involving the veins of the rightupper extremity, veins of the left upper extremity, right internal jugularvein, right subclavian vein, left internal jugular vein, and leftsubclavian vein. 2. Study demonstrates acute superficial vein thrombosis involving thethe right cephalic vein and the left cephalic vein. Study data: Bilateral upper extremity venous duplex. Doppler flowstudy including spectral analysis, color and bob scale imaging. Location: Bedside. Patient status: Inpatient. Study status: Routine.Procedure: A vascular evaluation was performed. Image quality was fair. Venous flow and imaging: - Right internal jugular Patent; Normal phasicity; spontaneous; normal augmentation - Right subclavian Patent; Normal phasicity; spontaneous; normalaugmentation - Right axillary Patent; Normal phasicity; spontaneous; compressible;normal augmentation - Right brachial Patent; Normal phasicity; spontaneous; compressible;normal augmentation - Right cephalic Thrombosed; Acute - Right basilic Patent; Compressible - Right radial Patent; Compressible - Right ulnar Patent; Compressible - Left internal jugular Patent; Normal phasicity; spontaneous; normal augmentation - Left subclavian Patent; Normal phasicity; spontaneous; normalaugmentation - Left axillary Patent; Normal phasicity; spontaneous; compressible;normal augmentation - Left brachial Patent; Normal phasicity; spontaneous; compressible;normal augmentation - Left cephalic Thrombosed; Acute - Left basilic Patent; Compressible - Left radial Patent; Compressible - Left ulnar Patent; Compressible CRITICAL FINDINGS - Reported to: Caridad - Read back and verified. - 09/14/24 - 7:50 - Svt [facility] Vascular Lab is accredited with theIntersocietal Commission for the Accreditation of Vascular Laboratories (ICAVL) Prepared and Electronically Authenticated Emiliano Caraballo Confirmed 09/14/2024 13:59 Dnaa CHIRINOS ORDERABLES Final Result * CT PELVIS WO CONTRAST (09/14/2024 9:16 AM CDT) Anatomical Region Laterality Modality Pelvis Computed Tomogra phy 09/14/2024 8:23 AM CDT Impressions 09/14/2024 10:15 AM CDT IMPRESSION: Please see below. Exam: CT PELVIS WO CONTRAST Date/Time of Exam: 09/14/2024 9:16 AM Reason For Exam: Anal fissure or fistula. Diagnosis: See Reason for Exam. Technique: Axial tomograms obtained through the pelvis without IV contrast. Retrograde cystogram performed. Findings: Comparison to abdomen and pelvic CT of 08/30/2024. Interval low anterior resection of colon. No extravasation of contrast material from bladder lumen. Residual uniform mildly thickened bladder wall. As similarly demonstrated on prior study are tiny colovaginal and colovesical fistulous tracts. No contrast however demonstrated within these fistulous tracts. Subtle appearance of small 3 x 2.1 cm fluid collection interposed between colon and dome of bladder, image 26 series 2. Surgical drain within right hemipelvis. No pelvic ascites. No free air. No pelvic lymphadenopathy. IMPRESSION: Interval low anterior resection of colon with redemonstration of subtle colovaginal and colovesical fistulous tracts as detailed above. Subtle small fluid collection interposed between colon and dome of bladder. Narrative Procedure Note Yasmin Simental MD - 09/14/2024 IMPRESSION: Please see below. Exam: CT PELVIS WO CONTRAST Date/Time of Exam: 09/14/2024 9:16 AM Reason For Exam: Anal fissure or fistula. Diagnosis: See Reason for Exam. Technique: Axial tomograms obtained through the pelvis without IV contrast. Retrograde cystogram performed. Findings: Comparison to abdomen and pelvic CT of 08/30/2024. Interval low anterior resection of colon. No extravasation of contrast material from bladder lumen. Residual uniform mildly thickened bladder wall. As similarly demonstrated on prior study are tiny colovaginal and colovesical fistulous tracts. No contrast however demonstrated within these fistulous tracts. Subtle appearance of small 3 x 2.1 cm fluid collection interposed between colon and dome of bladder, image 26 series 2. Surgical drain within right hemipelvis. No pelvic ascites. No free air. No pelvic lymphadenopathy. IMPRESSION: Interval low anterior resection of colon with redemonstration of subtle colovaginal and colovesical fistulous tracts as detailed above. Subtle small fluid collection interposed between colon and dome of bladder. Lea Herrera [facility] CT ORDERABLES Final Result * (ABNORMAL) HSV BY PCR (09/12/2024 6:28 PM CDT) Pathologist [facility] Herpes Simplex Virus Type 1 by PCR Detected(A) Not Detected 09/13/2024 9:17 AM CDT [facility] [employer] SERVICES [facility] Herpes Simplex Virus Type 2 by PCR Not Detected Not Detected 09/13/2024 9:17 AM CDT [facility] Lesion/Drainage Fluid ENTIRE MOUTH REGION / Unknown Collection / Unknown 09/12/2024 6:28 PM CDT 09/12/2024 6:48 PM CDT us Lea Herrera [employer] BODY FLUIDS AND STOOLS Final Result Performing Organization Address [facility] Co de Phone Number [facility] CLIA # [id number] [address] [address] * (ABNORMAL) TRIGLYCERIDE (09/12/2024 4:47 AM CDT) Only the most recent of2 resultswithin the time period is included. TRIGLYCERIDE 315(H) <150 mg/dL 09/12/2024 5:40 AM CDT [facility] Blood Venipuncture / Unknown 09/12/2024 4:47 AM CDT 09/12/2024 5:04 AM CDT Narrative [facility] [employer] [facility] - 09/12/2024 5:40 AM CDT TRIGLYCERIDES mg/dL Normal < 150 Borderline High 150 - 199 High 200 - 499 Very High >= 500 Based on AHA/NCEP Guidelines. Moe CHIRINOS CHEMISTRY ORDERABLES Final Resul t Performing Organization Address City/[facility] Co de Phone Number [facility] CLIA # [id number] [address] [address] * (ABNORMAL) POC CALCIUM IONIZED (09/12/2024 4:45 AM CDT) PH BLOOD POC 7.41 Arterial 7.35-7.45, Venous 7.32-7.43 09/12/2024 4:45 AM CDT [facility] CALCIUM IONIZED POC 4.3(L) 4.8 - 5.2 mg/dL 09/12/2024 4:45 AM CDT [facility] [employer] [facility] PUNC SITE POC No Charge 09/12/2024 4:45 AM CDT [facility] Blood, arterial 09/12/2024 4 :45 AM CDT 09/12/2024 4:47 AM CDT Dinesh Toussaint MD POINT OF CARE TESTING Final Result [facility] CLIA # [id number] [address] [address] [place] [address] * INSERT MIDLINE IV (09/12/2024 1:04 AM CDT) Narrative Edmond Keene RN - 09/12/2024 1:04 AM CDT Edmond Keene RN 09/12/2024 1:05 AM VASCULAR ACCESS NOTE Midline PATIENT NAME: Dianelys Reagan DATE OF : 1950 CSN: [id number] DATE: 09/12/2024 Room: [address] [place] [address] Admit Date: 08/30/2024 Hospital day: LOS: 13 days LINE STATUS: A Midline catheter was successfully inserted and can be used Adult Midline Catheter 09/12/24102 Left: basilic vein (Active) 09/12/24102 basilic vein Earliest Known Present: 09/12/24 Present on Admission: No Orientation: Left: Size: Number of Insertion Attempts: 1 Insertion: Patient Tolerance: tolerated well;appears comfortable Insertion: Pain Prevention: distraction Power Injectable Compatable: Yes Earliest Known Removed: Removal Indication: Removal Interventions: *Procedural Assist Insertion of Midline catheter WO SQ port >5 yrs 09/12/24103 Inserted Catheter Length (cm) 10 09/12/24103 Midline Catheter (WDL) WDL 09/12/24 010 Extremity Circumference, Mid-Upper (cm) 32 09/12/24103 Patency flushes w/o difficulty;positive blood return 09/12/24103 Line Interventions system flushed;antimicrobial cap/s in place or applied to line and/or tubing;IV capped 09/12/24103 Dressing Type/Securement transparent dressing;site adhesive;secured with tape;catheter securement device utilized;antimicrobial patch/disc 09/12/24103 Dressing Changed Date 09/12/24 09/12/24103 Needleless Connector Changed Date 09/12/24 09/12/24103 Line Criteria Poor venous access 09/12/24103 Number of days: 0 MIDLINE PROCEDURE Ultrasound assessment was performed to assess adequacy of vascular anatomy Adequate vessel was located with less than 45% catheter to vein ratio. Insertion site cleansed for 30 seconds with Chlora-prep Allowed to dry before initial needle stick. A midline was inserted in the basilic vein of the left upper arm using ultrasound guidance under sterile technique. 20 gauge, 10 cm Secure port adhesive used Yes 1 attempts 30 minutes required to complete procedure Positive blood return visualized. Neutral pressure cap applied Catheter flushed easily with 5ml of Normal Saline Transparent antimicrobial dressing applied Antimicrobial cap placed Dressing with date, time and initials of RN Patient tolerated procedure well. Primary care nurse notified of catheter placement Edmond Keene RN CARE AND MAINTENANCE This is not a central line. NO BLOOD PRESSURES on arm with powerglide Requires physician order for blood draws The midline is indicated for use as a peripheral IV access only Can remain in place UP TO 29 DAYS as long as catheter insertion site and extremity remain asymptomatic The midline is CT injectable with a maximum pressure of 325psi with rate of 5ml/sec (20 gauge), and 7ml/sec (18 gauge) Securely apply neutral OR positive pressure cap when not in use. Flush catheter with 10ml normal saline before blood draw, after every use, and EVERY 12 HOURS for all in-patients Flush catheter once weekly when not in use(outpatient setting). Flush catheter using pulsating start-stop technique Always use 10ml syringe After blood sampling, flush catheter with 20ml normal saline Change dressing every 7 days and as needed using sterile technique Horacio Ruth MD IV THERAPY ORDERABLES Final Result * TRANSFUSE RED BLOOD CELLS (09/10/2024 4:28 PM CDT) Richard CHIRINOS BLOOD TRANSFUSION ORDERABLES F inal Result * TYPE AND SCREEN (09/10/2024 12:42 PM CDT) Only the most recent of2 resultswithin the time period is included. ABO GROUP A 09/10/2024 1:42 PM CDT [facility] [place] RH (D) TYPE Positive 09/10/2024 1:42 PM CDT [facility] -- [place] ANTIBODY SCREEN Negative 09/10/2024 1:42 PM CDT [facility] [place] Blood Venipuncture / Unknown 09/10/2024 12:42 PM CDT 09/10/2024 12:46 PM CDT us Richard CHIRINOS BLOOD BANK ORDERABLES Edited R esult - Final [facility] -- [place] CLIA#[id number] [address] [place] [address], [place] [phone] * XR CHEST PA OR AP 1 VW (09/10/2024 12:24 PM CDT) Only the most recent of3 resultswithin the time period is included. Anatomical Region Laterality Modality Chest Computed Radiogr aphy 09/10/2024 12:2 4 PM CDT Impressions 09/10/2024 6:04 PM CDT IMPRESSION: Please see below. Exam: XR CHEST PA OR AP 1 VW Date/Time of Exam: 09/10/2024 12:24 PM Reason For Exam: Cough and Congestion. Diagnosis: See Reason for Exam. Comparison: 09/07/2024. Findings: Suboptimal inspiratory effort with mild rotation to the left. The endotracheal and nasogastric tubes have been removed. Stable cardiomediastinal silhouette with left basilar atelectasis versus airspace disease. The right lung is clear. No pleural effusion or pneumothorax. Diffuse osteopenia. Impression: 1. Left basilar atelectasis versus airspace disease. Narrative Procedure Note Alivia Johnson MD - 09/10/2024 IMPRESSION: Please see below. Exam: XR CHEST PA OR AP 1 VW Date/Time of Exam: 09/10/2024 12:24 PM Reason For Exam: Cough and Congestion. Diagnosis: See Reason for Exam. Comparison: 09/07/2024. Findings: Suboptimal inspiratory effort with mild rotation to the left. The endotracheal and nasogastric tubes have been removed. Stable cardiomediastinal silhouette with left basilar atelectasis versus airspace disease. The right lung is clear. No pleural effusion or pneumothorax. Diffuse osteopenia. Impression: 1. Left basilar atelectasis versus airspace disease. us Richard CHIRINOS DIAGNOSTIC IMAGING ORDERABLES Final Result * PREPARE RED BLOOD CELLS (09/10/2024 11:18 AM CDT) Only the most recent of3 resultswithin the time period is included. Pathologist [facility] COMPONENT TYPE [id number] [facility] [employer] [facility] -- [place] COMPONENT IDENTIFICATION [id number] [facility] -- [place] UNIT ABO A [facility] -- [place] UN[facility] RH POS [facility] [place] CROSSMATCH Compatible [facility] -- [place] COMPONENT STATUS Transfused [facility] -- [place] COMPONENT EXPIRATION DATE/TIME [id number] [facility] -- [place] COMPONENT CODING SYSTEM 6200 [facility] -- [place] VOLUME, BLOOD PRODUCT 350 [facility] [employer] [facility] [place] Other, specify 09/10/2024 11 :18 AM CDT us Richard CHIRINOS LAB TRANSFUSION ORDERABLES Amrik macario Result - Final [facility] [employer] [facility] [place] CLIA#[id number] [address] [place] [address], * (ABNORMAL) POC LACTIC ACID (09/08/2024 7:40 AM CDT) Only the most recent of3 resultswithin the time period is included. LACTIC ACID POC 3.1(H) <=2.0 mmol/L 09/08/2024 7:40 AM CDT [facility] [employer] [facility] SPECIMEN SOURCE, GASES POC Arterial 09/08/2024 7:40 AM CDT [email or web address] SITE POC No Charge 09/08/2024 7:40 AM T [facility] Blood 09/08/2024 7:40 AM CDT 09/08/2024 7:42 AM CDT Narrative [facility] - 09/08/2024 7:40 AM CDT References ranges displayed are for Arterial samples. us Dinesh Toussaint MD POINT OF CARE TESTING Final Result [facility] CLIA # [id number] [address] [address] [place] [address] * (ABNORMAL) BLOOD GAS ARTERIAL (09/08/2024 7:40 AM CDT) Only the most recent of4 resultswithin the time period is included. PH BLOOD POC 7.40 7.35 - 7.45 09/08/2024 7:40 AM [facility] PCO2 POC 27(L) 35 - 45 mm Hg 09/08/2024 7:40 AM [facility] PO2 POC 136(H) 80 - 105 mm Hg 09/08/2024 7:40 AM [facility] HCO3 (CALC) POC 17(L) 22 - 26 mmol/L 09/08/2024 7:40 AM [facility] HEMOGLOBIN POC 9.4(L) 12.0 - 18.0 g/dL 09/08/2024 7:40 AM [facility] BASE EXCESS POC -8(L) -2 - 3 mmol/L 09/08/2024 7:40 AM [facility] O2 SATURATION POC 100(H) 95 - 98 % 025 7:40 AM [facility] SODIUM POC 129(L) 138 - 146 mmol/L 09/08/2024 7:40 AM [facility] POTASSIUM POC 4.9 3.5 - 4.9 mmol/L 09/08/2024 7:40 AM [facility] HEMATOCRIT POC 28(L) 38 - 51 % 09/08/2024 7:40 AM [facility] PH TEMP CORRECT 7.40 7.35 - 7.45 09/08/2024 7:40 AM [facility] PCO2 TEMP CORRECT 27(L) 35 - 45 mm Hg 09/08/2024 7:40 AM [facility] PO2 TEMP CORRECT 136(H) 80 - 105 mm Hg 09/08/2024 7:40 AM [facility] SPECIMEN SOURCE, GASES POC Arterial 09/08/2024 7:40 AM [facility] CALCIUM IONIZED POC 4.0(L) 4.8 - 5.2 mg/dL 09/08/2024 7:40 AM [facility] TCO2 (CALC) POC 18(L) 23 - 27 mmol/L 09/08/2024 7:40 AM [facility] FIO2 35.0 21.0 - 100.0 % 09/08/2024 7:40 AM [facility] Comment:FIO2 values reported <21.0 indicate O2 flow in Liters/minute. Values >/= 21.0 indicate percent O2. P/F RATIO POC 389 09/08/2024 7:40 AM [facility] Comment: P/F Ratio Interpretation ARDS SEVERITY PaO2/FiO2 Mild 200-300 Moderate 100-200 Severe <100 PEEP POC 8 09/08/2024 7:40 AM [facility] SITE POC No Charge 09/08/2024 7:40 AM [facility] PATIENT'S TEMPERATURE POC 37.0 degrees 09/08/2024 7:40 AM [facility] TOTAL MINUTE VOL POC 6 L/min 09/08/2024 7:40 AM [facility] Blood, arterial 09/08/2024 7 :40 AM CDT 09/08/2024 7:42 AM CDT Moe Ro DO ABG ORDERABLES Final Result Performing Organization Address [facility] Co de Phone Number [facility] CLIA # [id number] [address] [address] * (ABNORMAL) PROTIME-INR (09/07/2024 7:11 PM CDT) Only the most recent of3 resultswithin the time period is included. PROTIME 17.2(H) 12.7 - 14.9 Seconds 09/07/2024 7:40 PM CDT [facility] INR 1.3(H) 0.8 - 1.2 09/07/2024 7:40 PM CDT [facility] Blood Venipuncture / Unknown 09/07/2024 7:11 PM CDT 09/07/2024 7:21 PM CDT Narrative [facility] - 09/07/2024 7:40 PM CDT Expected Values for INR: DVT/PE Goal INR 2.5; range 2.0 - 3.0 Valve Replacement Tissue Goal INR 2.5; range 2.0 - 3.0 Valve Replacement Mechanical Goal INR 3.0; range 2.5 - 3.5 POST-KS Goal INR 2.5; range 2.0 - 3.0 or Goal INR 3.0; range 2.5 - 3.5 Atrial Fibrillation Goal INR 2.5; range 2.0 - 3.0 Ischemic Stroke Goal INR 2.5; range 2.0 - 3.0 Richard CHIRINOS HEMATOLOGY ORDERABLES Final Re sult Performing Organization Address [facility] Co de Phone Number [facility] CLIA # [id number] [address] [address] * PATHOLOGY (09/06/2024 1:06 PM CDT) CASE REPORT Surgical Pathology Report Case: [id number] Authorizing Provider: Moe Ro DO Collected: 09/06/2024 01:06 PM Ordering Location: [facility] Received: 09/06/2024 03:48 PM Operating Room Pathologist: Aldo Marc MD Specimens: A) - Rectum B) - Small Intestine C) - Colon, right 1:59 PM CDT [facility] LABORATORY [facility] FINAL DIAGNOSIS A. Rectum, resection - diverticulitis [...] appendix shows mucosal hyperplasia. Aldo Marc MD [id number] 1:59 PM CDT [facility] at 1359 CDT GROSS DESCRIPTION A. Received in a container of formalin labeled Tez -rectum is a 9.5 cm in length segment of rectum that is stapled at both ends. The serosal surface is li-bob and extensively ragged with dense adhesions. The specimen is opened to reveal multiple diverticula intermittently throughout the bowel. There is a 3.1 x 1.5 x 1.3 cm abscess cavity. No obvious perforations are grossly identified. [employer] Worker sections are submitted as follows: A1: Mucosal margins, en face A2: [employer] Worker of diverticulum A3: [employer] Worker of abscess cavity B. Received in a [...] identified. No discrete masses or lesions identified. [employer] Worker sections are submitted as follows: B1: Mucosal margin, en face B2: [employer] Worker of mucosa with abscess cavity B3: [employer] Worker of mucosa with ragged serosa C. Received in a container of formalin labeled Tez is a right hemicolectomy specimen including a terminal ileum (2.5 cm in length), cecum (7.2 cm in length), and appendix (5.2 x 0.7 cm). The serosal surface is li-pink and smooth. The specimen is opened to reveal a 0.4 x 0.3 x 0.2 cm li-pink, sessile polyp located within the cecum, 4.5 cm from the proximal margin and 5.5 cm from the distal margin. No invasion is grossly identified. The outer surface of the appendix is li-bob and smooth. Sectioning reveals a mildly dilated lumen filled with fecal material, that measures up to 0.2 cm in diameter. The uninvolved mucosa is li-pink with typical folds. [employer] Worker sections are submitted as follows: C1: Mucosal margins, en face C2: Polyp, entirely submitted C3: [employer] Worker of mucosa C4: [employer] Worker appendix Leah Henson 5 1:59 PM CDT [facility] OPERATIVE PROCEDURE 1: LAPAROTOMY EXPLORATORY 2: COLON RESECTION LOW 3: ILEOCOLECTOMY 4: CYSTOURETHROSCOPY URETERAL STENT INSERTION 5: WOUND CLOSURE VACUUM ASSISTED 5 1:59 PM CDT [facility] COMMENT The [employer] voice-activated dictation system may have been used [...] determined by the Diagnostic Immunohistochemistry Laboratory of [facility] in compliance with CLIA'88 regulations. Some of these tests rely on the use of analyte specific reagents and are subject to specific labeling requirements by the FDA. All controls show appropriate reactivity. This testing was developed by the Diagnostic Immunohistochemistry Laboratory of [facility]. It has not been cleared or approved by the FDA. The FDA has determined that such clearance or approval is not necessary. 5 1:59 PM CDT [facility] Tissue ENTIRE RECTUM / Unknown Collection / Unknown 09/06/2024 1:06 PM CDT 09/06/2024 3:48 PM CDT Tissue specimen (specimen) (Small Intestine) Collection / Unknown 09/06/2024 2:04 PM CDT 09/06/2024 3:48 PM CDT Tissue specimen (specimen) SPECIMEN FROM COLON / Unknown 09/06/2024 2:19 PM CDT 09/06/2024 3:48 PM CDT Moe Ro DO PATHOLOGY/CYTOLOGY ORDERABLES Fi nal Result Performing Organization Address City/State/[facility] Co de Phone Number [facility] LABORATORY SERVICES [facility] CLIA # [id number] [address] [address] [place] [address] * [place] ANES INSERT ENDOTRACHEAL AIRWAY (09/06/2024 10:20 AM CDT) Narrative Jasen Mckinley CRNA - 09/06/2024 10:20 AM CDT Jasen Mckinley CRNA 09/06/2024 11:12 AM Airway Date/Time: 09/06/2024 10:20 AM Location: OR Plan: routine intubation Patient Identity Confirmed by: Verbally with patient and armband Airway: Difficult Staffing Performed: LEONEL/CARSON Authorized by: Romero Mckee MD Performed by: Jasen Mckinley CRNA Indications and Patient Condition: Indications for Airway Management: Anesthesia Sedation Level: general anesthesia Preoxygenated: yes Patient Position: Sniffing Mask Difficulty Assessment: 1 - vent by mask Plan to extubate at end of case: Yes Final Airway Details: Final Airway Type: Endotracheal airway ETT Cuffed: Yes Cuff Volume (mL): 5 Technique Used for Successful ETT Placement: Direct laryngoscopy and video laryngoscopy Devices/Methods Used in Placement: Intubating stylet Reason for advanced technique: intraoperative decision Blade Type: straight blade Blade Size: 3 Insertion Site: Oral ETT Size (mm): 7.0 Video Laryngoscopy Devices: GlideScope Measured from: Teeth ETT to Teeth (cm): 20 Tube secured with: Tape Placement Verified by: auscultation, end tidal CO2 and chest rise Cormack-Lehane Classification: Grade I - full view of glottis Number of Attempts at Approach: 2 Ventilation Between Attempts: Bag valve mask Number of Other Approaches Attempted: 1 Additional Procedure Information: atraumatic and dentition unchanged Unsuccessful Attempts: Unsuccessful Airways Attempted: Endotracheal tube Unsuccessful Approaches for ETT: Direct laryngoscopy Blade Type: straight blade Blade Size: 2 Unsuccessful Attempt(s) Cormack Lehane Class: Grade III - view of epiglottis only Reasons for Airway Difficulty: anterior larynx and small mouth Additional Comments: Easy mask unable to view vc only epiglottis with villalba 2, anterior airway and pronounced upper incisors, easy intubation with glidescope 3 us Romero Mckee MD PROCEDURE/MINOR SURGICAL ORDERA BLES Final Result * XR BARIUM ENEMA (09/02/2024 2:32 PM CDT) Anatomical Region Laterality Modality Abdomen Computed Radiogr aphy 09/02/2024 2:36 PM CDT Impressions 09/02/2024 3:12 PM CDT IMPRESSION: 1. High-grade nearly obstructive 10 cm stricture at the junction of the descending/sigmoid colon. Inflammatory stricture favored. Mass not excluded. 2. Diverticulosis. Diverticulitis is not excluded. 3. Limited study due to patient discomfort and high-grade stricture. Narrative 09/02/2024 3:12 PM CDT Exam: XR BARIUM ENEMA Date/Time of Exam: 09/02/2024 2:32 PM Reason For Exam: Urinary Tract Infection, Comment: r/o fistula. Diagnosis: See Reason for Exam. Preliminary findings dictated by Kristian Yang RPA, RRA. Direct supervision and final interpretation by Dr. Ratliff. Epoxy Coatings Installer view of the abdomen surgical clips over the gallbladder fossa. Retention clips over the bilateral pubic rami. Nondistended gas pattern. Barium was introduced into the rectum via a Cohen catheter. A few scattered diverticula seen within the sigmoid and descending colon. High-grade nearly obstructive stricture at the junction of the descending and sigmoid colon. Patient experienced significant pain with retrograde administration of contrast. Procedure was terminated due to high-grade stricture and patient discomfort. No fistulous tract appreciated. Moderate amount of retained stool within the descending colon. Procedure Note Iliana Ratliff MD - 09/02/2024 Exam: XR BARIUM ENEMA Date/Time of Exam: 09/02/2024 2:32 PM Reason For Exam: Urinary Tract Infection, Comment: r/o fistula. Diagnosis: See Reason for Exam. Preliminary findings dictated by Kristian Yang RPA, RRA. Direct supervision and final interpretation by Dr. Ratliff. [employer]at[employer] Installer view of the abdomen surgical clips over the gallbladder fossa. Retention clips over the bilateral pubic rami. Nondistended gas pattern. Barium was introduced into the rectum via a Cohen catheter. A few scattered diverticula seen within the sigmoid and descending colon. High-grade nearly obstructive stricture at the junction of the descending and sigmoid colon. Patient experienced significant pain with retrograde administration of contrast. Procedure was terminated due to high-grade stricture and patient discomfort. No fistulous tract appreciated. Moderate amount of retained stool within the descending colon. IMPRESSION: 1. High-grade nearly obstructive 10 cm stricture at the junction of the descending/sigmoid colon. Inflammatory stricture favored. Mass not excluded. 2. Diverticulosis. Diverticulitis is not excluded. 3. Limited study due to patient discomfort and high-grade stricture. us Richard CHIRINOS DIAGNOSTIC IMAGING ORDERABLES Final Result * CT CYSTOGRAM WITHOUT IV CONTRAST (08/31/2024 2:23 AM CDT) Anatomical Region Laterality Modality Pelvis Computed Tomogra phy 08/31/2024 1:54 AM CDT Impressions 08/31/2024 8:38 AM CDT IMPRESSION: CT findings consistent with acute sigmoid colonic diverticulitis with prominent soft tissue stranding and multiple locules of extraluminal air. The extraluminal air has slightly improved from the prior study. The small abscess has decreased. There is subjacent wall thickening/inflammation noted of the bladder without evidence of bladder perforation or colovesical fistula. Narrative 08/31/2024 8:38 AM CDT Exam: CT CYSTOGRAM WITHOUT IV CONTRAST Date/Time of Exam: 08/31/2024 2:23 AM Reason For Exam: Diverticulitis, complication suspected, suspect colovesical fistula. Diagnosis: See Reason for Exam. Findings: I agree with the preliminary report. The preliminary report is attached below with possible minor/noncritical modifications. TECHNIQUE: Imaging protocol: Computed tomography of the pelvis without and with intravesicular contrast. No intravenous contrast. COMPARISON: 08/30/2024. FINDINGS: Tubes, catheters and devices: A Cohen catheter is present in the bladder. Intestine: There is a segment of colonic wall thickening consistent with sigmoid acute colitis/diverticulitis. As an underlying colonic malignancy cannot be excluded, a follow-up examination after a course of treatment is recommended if clinically warranted. The inflamed segment of the sigmoid contacts the dome of the bladder without evidence of intravesicular contrast seeping into the sigmoid colon. There is surrounding soft tissue stranding and a few locules of extraluminal air. Bones/joints: No acute fracture. No dislocation. Soft tissues: Unremarkable. Procedure Note Jakob Ramos MD - 08/31/2024 Exam: CT CYSTOGRAM WITHOUT IV CONTRAST Date/Time of Exam: 08/31/2024 2:23 AM Reason For Exam: Diverticulitis, complication suspected, suspect colovesical fistula. Diagnosis: See Reason for Exam. Findings: I agree with the preliminary report. The preliminary report is attached below with possible minor/noncritical modifications. TECHNIQUE: Imaging protocol: Computed tomography of the pelvis without and with intravesicular contrast. No intravenous contrast. COMPARISON: 08/30/2024. FINDINGS: Tubes, catheters and devices: A Cohen catheter is present in the bladder. Intestine: There is a segment of colonic wall thickening consistent with sigmoid acute colitis/diverticulitis. As an underlying colonic malignancy cannot be excluded, a follow-up examination after a course of treatment is recommended if clinically warranted. The inflamed segment of the sigmoid contacts the dome of the bladder without evidence of intravesicular contrast seeping into the sigmoid colon. There is surrounding soft tissue stranding and a few locules of extraluminal air. Bones/joints: No acute fracture. No dislocation. Soft tissues: Unremarkable. IMPRESSION: CT findings consistent with acute sigmoid colonic diverticulitis with prominent soft tissue stranding and multiple locules of extraluminal air. The extraluminal air has slightly improved from the prior study. The small abscess has decreased. There is subjacent wall thickening/inflammation noted of the bladder without evidence of bladder perforation or colovesical fistula. Moe CHIRINOS CT ORDERABLES Final Result * PTT (08/30/2024 8:40 AM CDT) PTT 30.8 25.8 - 34.0 seconds 08/30/2024 9:08 AM CDT [facility] Blood Collection / Unknown 08/30/2024 8:40 AM CDT 08/30/2024 8:59 AM CDT us Sekou Pollock MD HEMATOLOGY ORDERABLES Final Res ult Performing Organization Address [facility] de Phone Number [facility] CLIA # [id number] [address] [place] [address] * (ABNORMAL) SEDIMENTATION RATE (08/30/2024 8:40 AM CDT) ESR (SEDIMENTATION RATE) 37(H) 0 - 30 mm/Hr 08/30/2024 9:11 AM CDT [facility] Blood Collection / Unknown 08/30/2024 8:40 AM CDT 08/30/2024 8:59 AM CDT Narrative [facility] - 08/30/2024 9:11 AM CDT Tube Lot: #[id number] Exp Date: 01/31/2026 SR 0125-1 EXP. 11/05/24 SR 0125-2 EXP. 11/05/24 us Sekou Pollock MD HEMATOLOGY ORDERABLES Final Res ult Performing Organization Address [facility] de Phone Number [facility] CLIA # [id number] [address] [place] [address] * (ABNORMAL) BRAIN NATRIURETIC PEPTIDE, BNP OR PROBNP (08/30/2024 8:40 AM CDT) PROBNP, N TERMINAL 217(H) 0 - 125 pg/mL 08/30/2024 9:15 AM CDT [facility] Comment: INTERPRETIVE COMMENT based on diagnosis: Diagnostic NT pro-BNP cutoffs for Heart Failure in the absence of renal failure is suggested for the following ranges <75 years: <125 pg/mL >=75 years: <450 pg/mL Exclusionary rule out cut-point for Acute Decompensated Heart Failure(ADHF) All ages: <300 pg/mL Diagnostic NT pro-BNP cutoffs for Acute Decompensated Heart Failure(ADHF) in the absence of renal failure is suggested for the following ages <50 years: > 450 pg/mL 50-75 years: > 900 pg/mL >75 years: >1800 pg/mL Blood Collection / Unknown 08/30/2024 8:40 AM CDT 08/30/2024 8:59 AM CDT us Sekou Pollock MD CHEMISTRY ORDERABLES Final Resu lt [facility] CLIA # [id number] [address] [place] [address] from Last 3 Months Additional Health Concerns Infection Onset Date Last Indicated C Diff 10/27/2024 10/27/2024 Insurance MEDICARE PART A AND B RX [employer] Member Subscriber Plan / Payer (Ef fective 2023-Present) Name:Dianelys Reagan Relation to Subscriber:Self Name:Dianelys Reagan Payer ID:Not on file Group ID:[id number] Type:RX Medicare Part D Address: [address] Advance Directives For more information, please contact: [phone] * Full Code (Latest Code Status on File) Date Activated Date Inactivated Comments 10/26/2024 9:49 AM 10/29/2024 4:39 PM * Full Code Date Activated Date Inactivated Comments 09/06/2024 3:32 PM 09/17/2024 7:30 AM * Full Code Date Activated Date Inactivated Comments 08/31/2024 6:17 AM 09/06/2024 3:32 PM Care Teams Wire Spooler Relationship Specialty Start Date End Date Non-Staff, Physician NO ADDRESS ON FILE PCP - General 08/30/13
--- OUTSIDE RECORDS SUMMARY | 2024-11-14 23:04 | XMS_ITS | Encounter Summary ---
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
--- OUTSIDE RECORDS SUMMARY | 2024-11-14 23:04 | XMS_ITS | Encounter Summary ---
Author Organization [facility] Address [address] [place] [address] Care Team Providers Care Community Resource Officer Name Role Phone Non-Staff, Physician Primary Care Provider Unava ilable Encounter Details Date Type Department Care Team (Latest Contact Info) Description 12/02/2005 Outpatient Historical [facility] [address] [place] [phone] Sesar Rayo MD NO ADDRESS ON FILE Pre-Operative Cardiovascular Examination (Primary Dx) Social History Tobacco Use Types Packs/Day Years Used Date Smoking Tobacco: Never Assessed Comments Unknown Sex and Gender Information Value Date Recorded Sex Assigned at Not on file 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 Gender Identity Not on file Sexual Orientation Not on file documented as of this encounter Plan of Treatment Not on file documented as of this encounter Procedures Procedure Name Priority Date/Time Associated Diagnosis Comments URINALYSIS MICROSCOPY ONLY Routine 12/02/2005 11:20 AM CDT URINALYSIS W/REFLEX MICROSCOPIC Routine 12/02/2005 11:20 AM CDT CBC WITHOUT DIFFERENTIAL Routine 12/02/2005 10:40 AM CDT BASIC METABOLIC PANEL Routine 12/02/2005 10:40 AM CDT documented in this encounter Results * (ABNORMAL) URINALYSIS MICROSCOPY ONLY (12/02/2005 11:20 AM CDT) WBC URINE 3-5(A) 0 - 2 INTERFACE SYSTEM RBC UA None Seen 0 - 2 INTERFACE SYSTEM HYALINE CAST None Seen 0 - 2 INTERFA CE SYSTEM BACTERIA UA Few(A) None Seen INTERFAC E SYSTEM 12/02/2005 11:2 0 AM CDT Sesar Rayo MD URINE ORDERABLES Final Result Performing Organization Address [facility] Phone Number INTERFACE SYSTEM Refer to clinic/hospital department * (ABNORMAL) URINALYSIS (12/02/2005 11:20 AM CDT) COLOR UA Yellow Straw INTERFACE SYSTEM CLARITY UA Clear Clear INTERFACE SYSTEM LEUKOCYTE ESTERASE UA Small(A) NEGATIVE INTERFACE SYSTEM NITRITE UA NEGATIVE NEGATIVE INTERFACE SYSTEM PH UA 6.0 5.0 - 9.0 INTERFACE SYSTEM PROTEIN UA NEGATIVE NEGATIVE INTERFACE SYSTEM Comment: As of 04 positive protein results obtained on routine urinalysis will not be confirmed by sulfosalicylic acid (SSA) precipitation. Current methodology for protein detection is highly sensitive for detection of albumin; therefore, confirmation is not necessary. GLUCOSE UA NEGATIVE NEGATIVE INTERFACE SYSTEM KETONES UA NEGATIVE NEGATIVE INTERFACE SYSTEM UROBILINOGEN UA 0.2 0.2 INTE RFACE SYSTEM BILIRUBIN UA NEGATIVE NEGATIVE INTERFA CE SYSTEM BLOOD UA NEGATIVE NEGATIVE INTERFACE SYSTEM SPECIFIC GRAVITY UA 1.020 1.005 - 1.030 INTERFACE SYSTEM MICRO EXAM Yes(A) No INTERFACE SYSTEM 12/02/2005 11:2 0 AM CDT Sesar Rayo MD URINE ORDERABLES Final Result Performing Organization Address [facility] Phone Number INTERFACE SYSTEM Refer to clinic/hospital department * (ABNORMAL) CBC WITHOUT DIFFERENTIAL (12/02/2005 10:40 AM CDT) WBC 7.8 4.8 - 10.8 K/ul INTERFACE SYSTEM RBC 5.04 4.20 - 5.40 Mil/ul INTERFACE SYSTEM HEMOGLOBIN 15.0 12.0 - 16.0 g/dL INTERFACE SYSTEM HEMATOCRIT 44.0 36.0 - 46.0 % INTERFACE SYSTEM MCV 87.3 84.0 - 103.0 Fl INTERFACE SYSTEM MCH 29.8 27.0 - 34.0 pg INTERFACE SYSTEM MCHC 34.1 30.0 - 35.0 g/dL INTERFACE SYSTEM RDW 13.0 11.0 - 14.5 % INTERFACE SYSTEM PLATELETS 274 140 - 440 K/ul INTERFACE SYSTEM MPV 10.4 8.9 - 12.8 Fl INTERFACE SYSTEM NEUTROPHILS 59.1 42.2 - 75.2 % INTERFACE SYSTEM LYMPHOCYTES 30.6 24.0 - 44.0 % INTERFACE SYSTEM MONOCYTES 8.4 2.0 - 10.0 % INTERFACE SYSTEM EOSINOPHILS 1.5 0.0 - 7.0 % INTERFACE SYSTEM BASOPHILS 0.4 0.0 - 1.0 % INTERFACE SYSTEM NEUTROPHIL ABSOLUTE 4.6 2.0 - 8.0 K/uL INTERFACE SYSTEM LYMPHOCYTE ABSOLUTE 2.4 1.2 - 4.0 K/ul INTERFACE SYSTEM MONOCYTE ABSOLUTE 0.7(H) 0.1 - 0.6 K/ul INTERFACE SYSTEM EOSINOPHIL ABSOLUTE 0.1 0.0 - 0.7 K/ul INTERFACE SYSTEM BASOPHILS ABSOLUTE 0.0 0.0 - 0.2 K/ul INTERFACE SYSTEM 12/02/2005 10:4 0 AM CDT Sesar Rayo MD HEMATOLOGY ORDERABLES Final Re sult Performing Organization Address [facility] Phone Number INTERFACE SYSTEM Refer to clinic/hospital department * BASIC METABOLIC PANEL (12/02/2005 10:40 AM CDT) GLUCOSE 104 70 - 110 mg/dL INTERFACE SYSTEM Comment:Specimen slightly he molyzed BUN 17 7 - 17 mg/dL INTERFACE SYSTEM CREATININE 0.8 0.7 - 1.2 mg/dL INTERFACE SYSTEM SODIUM 138 136 - 145 mEq/L INTERFACE SYSTEM POTASSIUM 4.7 3.5 - 5.0 mEq/L INTERFACE SYSTEM CHLORIDE 103 95 - 110 mEq/L INTERFACE SYSTEM CO2 27 22 - 32 mmol/l INTERFACE SYSTEM ANION GAP 13 9 - 20 mEq/L INTERFACE SYSTEM OSMOLALITY, CALCULATED 287 275 - 295 mOsm/Kg INTERFACE SYSTEM CALCIUM 9.9 8.4 - 10.5 mg/dL INTERFACE SYSTEM 12/02/2005 10:4 0 AM CDT Sesar Rayo MD CHEMISTRY ORDERABLES Final Res ult Performing Organization Address [facility] Phone Number INTERFACE SYSTEM Refer to clinic/hospital department documented in this encounter Visit Diagnoses Diagnosis Pre-operative cardiovascular examination- Primary documented in this encounter Care Teams Community Resource Officer Relationship Specialty Start Date End Date Non-Staff, Physician NO ADDRESS ON FILE PCP - General 08/30/13 documented as of this encounter
--- OUTSIDE RECORDS SUMMARY | 2024-11-14 23:04 | XMS_ITS | Encounter Summary ---
Author Organization [facility] Address [address] [place] [address] Care Team Providers Care Economic Analysis Director Name Role Phone Non-Staff, Physician Primary Care Provider Unava ilable Encounter Details Date Type Department Care Team (Latest Contact Info) Description 02/17/2003 Outpatient Historical [facility] [place] [address] [place] [phone] Wanda Castro MD NO ADDRESS ON FILE Plantar fibromatosis (Primary Dx) Social History Tobacco Use Types Packs/Day Years Used Date Smoking Tobacco: Never Assessed Comments Unknown Sex and Gender Information Value Date Recorded Sex Assigned at Not on file 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
--- OUTSIDE RECORDS SUMMARY | 2024-11-14 23:04 | XMS_ITS | Clinical Summary ---
Author Organization [facility] Address [address] [place] [address] Phone Care Team Providers Care Maid Cleaning Cooking Name Role Phone Non-Staff, Physician Primary Care Provider Unava ilable Allergies Active Allergy Reactions Criticality Noted Date Comments Morphine Hives,Hallucination High 07/16/2012 Medications simvastatin (ZOCOR) 40 mg Oral tablet Take 40 mg by mouth Daily LATE. Active verapamil ER 24 hour (VERELAN) 240 mg Oral capsule Take 240 mg by mouth daily. Active lisinopril-hydr ochlorothiazide (ZESTORETIC) 20-12.5 mg Oral tablet Take 1 Tab by mouth daily. Active belladonna alkaloids-opium (B&O 15A) 16.2-30 mg Rectal Supp Insert 1 Suppository by rectum every 8 hours as needed. Active hyoscyamine sulfate (ANASPAZ RAPID DISSOLVE) 0.[address] 0.125 mg under tongue 3 times daily as needed. Active meclizine (ANTIVERT) 25 mg Oral tablet Take 25 mg by mouth 3 times daily as needed. Active omega-3 fatty acids-fish oil 300-1,000 mg Oral Cap Take 1 Cap by mouth 3 times daily. Active HYDROcodone-terry taminophen (LORTAB) 7.5-500 mg/15 mL(15 mL) Oral Soln Take by mouth. Activ e HYDROcodone-terry taminophen (LORTAB) 7.5-500 mg Oral tablet Take 1 Tab by mouth 4 times daily as needed. Active BELLADONNA ALKALOIDS ORAL Take 1 Tab by mouth 3 times daily as needed. Active hydromorPHONE (DILAUDID) 2 mg Oral tablet Take 0.5 Tabs by mouth every 4 hours as needed for Pain. 10 Tab 0 3 Active simethicone (MYLICON) 80 mg Oral Chew Take 1 Tab by mouth every 6 hours as needed for Gas (belchings ). 30 Tab 0 3 Active MAG HYDROX/AL HYDROX/SIMETH (GI COCKTAIL) Oral Susp Take 30 mL by mouth every 6 hours as needed for Other (See Comment) (heart burn ). 250 mL 0 3 Active chlorproMAZINE (THORAZINE) 25 mg Oral tablet Take 1 Tab by mouth every 8 hours as needed for Hiccups. 20 Tab 0 3 Active promethazine (PHENERGAN) 12.5 mg Oral Tab Take 1 Tab by mouth every 6 hours as needed for Nausea/Emesis. 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 Belchings 07/16/2012 Intractable hiccups 07/16/2012 Immunizations Immunization Administration Dates Next Due Influenza Seasonal Unspecified Formulation IM ,04/17/2000 Family History Medical History Relation Name Comments Breast Cancer Mother Relation Name Status Comments Mother Social History Tobacco Use Types Packs/Day Years Used Date Smoking Tobacco: Never Smokeless Tobacco: Never Alcohol Use Standard Drinks/Week Comments No 0 (1 standard drink = 0.6 oz pur e alcohol) Comments No Sex and Gender Information Value Date Recorded Sex Assigned at Not on file 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 Gender Identity Not on file Sexual Orientation Not on file Occupation Industry Job Start Date Job End Date Not on file Not on file Not on file Not on file Not on file Not on file Not on file Not on file Last Filed Vital Signs Vital Sign Reading Time Taken Comments Blood Pressure 98/61 07/17/2012 5:00 AM CDT Pulse 92 07/17/2012 5:00 AM CDT Temperature 36.8 C (98.3 F) 07/17/2012 5:00 AM CDT Respiratory Rate 21 07/17/2012 5:00 AM CDT Oxygen Saturation 98% 07/17/2012 5:00 AM CDT Inhaled Oxygen Concentration - - Weight 88.2 kg (194 lb 6.4 oz) 07/17/2012 2:11 A M CDT Height 167.6 cm (5' 6 ) 07/16/2012 10:00 AM CDT Body Mass Index 31.38 07/16/2012 10:00 AM CDT Plan of Treatment Health Maintenance Due Date Last Done Comments DTAP/TDAP/TD VACCINES (1 - Tdap) 1970 BREAST CANCER SCREENING 1991 COLORECTAL SCREENING 02/20/1996 FIT-DNA Q 3 years 02/20/1996 Flex Sig/CT Colonography Q 5 years 02/20/1996 PNEUMOCOCCAL VACCINE 50+ YEA RS (1 of 1 - PCV) 2001 ZOSTER VACCINE (1 of 2) 2001 Colorectal Cancer Screening 04/17/2001 FIT/FOBT Q 1 year 04/17/2001 04/17/2000 OSTEOPOROSIS SCREENING 02/20/2016 INFLUENZA VACCINE (#1) 2024 02/02/2012, 1999 RSV VACCINE (60+ or ) (1 - 1-dose 75+ series) 2026 [facility] Direct[facility] For more information, please contact: [phone] Documents on File Type Date Recorded 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
--- OUTSIDE RECORDS SUMMARY | 2024-11-14 23:04 | XMS_ITS | Encounter Summary ---
Author Organization [facility] Address [address] [place] [address] Care Team Providers Care Electronic Resources Librarian Name Role Phone Non-Staff, Physician Primary Care Provider Unava ilable Encounter Details Date Type Department Care Team (Late st Contact Info) Description 09/26/2024 Lab Requisition [facility] [address] [place] [phone] [facility], External Provider [address] [place] [address] Social History Tobacco Use Types Packs/Day Years Used Date Smoking Tobacco: Never Smokeless Tobacco: Never Alcohol Use Standard Drinks/Week Comments No 0 (1 standard drink = 0.6 oz pur e alcohol) Feeling Safe Answer Date Recorded Are you in a relationship wi th someone who hurts you emotionally and/or physically? 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 Gender Identity Not on file Sexual Orientation Not on file documented as of this encounter Plan of Treatment Not on file documented as of this encounter Procedures Procedure Name Priority Date/Time Associated Diagnosis Comments CBC WITH DIFFERENTIAL Routine 09/26/2024 4:52 AM CDT C-REACTIVE PROTEIN Routine 09/26/2024 4: 52 AM CDT COMPREHENSIVE METABOLIC PANEL Routine 09/26/2024 4:52 AM CDT documented in this encounter Results * (ABNORMAL) C-REACTIVE PROTEIN (09/26/2024 4:52 AM CDT) [facility] CRP 43.4(H) 0.0 - 5.0 mg/L 09/26/2024 6:12 AM CDT [facility] Blood Collection / Unknown 09/26/2024 4:52 AM CDT 09/26/2024 5:26 AM CDT us External Provider [facility] CHEMISTRY ORDERABLES Final Result [facility] CLIA # [id number] [address] [place] [address] * (ABNORMAL) CBC WITH DIFFERENTIAL (09/26/2024 4:52 AM CDT) [facility] WBC 7.3 4.8 - 10.8 K/uL 09/26/2024 5:39 AM CDT [facility] RBC 3.32(L) 4.20 - 5.40 M/uL 09/26/2024 5:39 AM CDT [facility] HEMOGLOBIN 9.3(L) 12.0 - 16.0 g/dL 09/26/2024 5:39 AM CDT [facility] HEMATOCRIT 30.8(L) 36.0 - 46.0 % 09/26/2024 5:39 AM CDT [facility] MCV 92.8 84.0 - 103.0 fL 09/26/2024 5:39 AM CDT [facility] MCH 28.0 27.0 - 34.0 pg 09/26/2024 5:39 AM CDT [facility] MCHC 30.2 30.0 - 35.0 g/dL 09/26/2024 5:39 AM CDT [facility] PLATELETS 437 140 - 440 K/uL 09/26/2024 5:39 AM CDT [facility] MPV 9.8 8.9 - 12.8 fL 09/26/2024 5:39 AM [facility] RDW 19.7(H) 11.0 - 14.5 % 09/26/2024 5:39 AM [facility] RDW-STDEV 66.9(H) 37.0 - 54.0 fL 09/26/2024 5:39 AM [facility] NEUTROPHILS 58 42 - 75 % 09/26/2024 5:39 AM [facility] LYMPHOCYTES 25 24 - 44 % 09/26/2024 5:39 AM [facility] MONOCYTES 10 2 - 10 % 09/26/2024 5:39 AM [facility] EOSINOPHILS 6 0 - 7 % 09/26/2024 5:39 AM [facility] BASOPHILS 1 0 - 1 % 09/26/2024 5:39 AM [facility] IMMATURE GRANULOCYTES 1 0 - 2 % 09/26/2024 5:39 AM [facility] NEUTROPHIL ABSOLUTE 4.21 2.00 - 8.00 K/uL 09/26/2024 5:39 AM [facility] LYMPHOCYTE ABSOLUTE 1.83 1.20 - 4.00 K/uL 09/26/2024 5:39 AM [facility] MONOCYTE ABSOLUTE 0.70(H) 0.10 - 0.60 K/uL 09/26/2024 5:39 AM [facility] EOSINOPHIL ABSOLUTE 0.41 0.00 - 0.70 K/uL 09/26/2024 5:39 AM [facility] BASOPHILS ABSOLUTE 0.06 0.00 - 0.20 K/uL 09/26/2024 5:39 AM [facility] IMMATURE GRANULOCYTES ABSOLUTE 0.06 0.00 - 0.10 K/uL 09/26/2024 5:39 AM [facility] SMEAR REVIEWED: NN - No Action Needed 09/26/2024 5:39 AM [facility] Blood Collection / Unknown 09/26/2024 4:52 AM CDT 09/26/2024 5:26 AM CDT us External Provider [facility] HEMATOLOGY ORDERABLES Christiana mary Result [facility] CLIA # [id number] [address] [address] [place] [address] * (ABNORMAL) COMPREHENSIVE METABOLIC PANEL (09/26/2024 4:52 AM CDT) Pathologist [facility] SODIUM 137 136 - 145 mmol/L 09/26/2024 6:12 AM CDT [facility] POTASSIUM 3.9 3.5 - 5.1 mmol/L 09/26/2024 6:12 AM CDT [facility] CHLORIDE 101 98 - 107 mmol/L 09/26/2024 6:12 AM CDT [facility] CO2 25 22 - 29 mmol/L 09/26/2024 6:12 AM CDT [facility] CALCIUM 8.5(L) 8.8 - 10.2 mg/dL 09/26/2024 6:12 AM T [facility] BUN 14 8 - 23 mg/dL 09/26/2024 6:12 AM T [facility] CREATININE 0.51 0.51 - 0.95 mg/dL 09/26/2024 6:12 AM T [facility] Comment:The GFR result is no t clinically significant on patients <18 or >70 years of age. GLUCOSE 155(H) 74 - 99 mg/dL 09/26/2024 6:12 AM CDT [facility] TOTAL PROTEIN 6.1(L) 6.4 - 8.3 g/dL 09/26/2024 6:12 AM T [facility] ALBUMIN 2.7(L) 3.5 - 5.2 g/dL 09/26/2024 6:12 AM CDT [facility] BILIRUBIN TOTAL 0.2 0.0 - 1.0 mg/dL 09/26/2024 6:12 AM CDT [facility] ALKALINE PHOSPHATASE 80 35 - 104 U/L 09/26/2024 6:12 AM T [facility] AST 42(H) 10 - 35 U/L 09/26/2024 6:12 AM T [facility] ALT 36(H) <=35 U/L 09/26/2024 6:12 AM T [facility] GFR >60 mL/min/1.7 3 sq meter 09/26/2024 6:12 AM T [facility] Comment:eGFR calculated with 2020 CKD-EPI equation. Vegetarian diet, extremely high or low muscle mass, and may affect results. Cystatin C with Glomerular Filtration Rate is a suitable alternative for these patients. ANION GAP 11 9 - 20 mmol/L 09/26/2024 6:12 AM [facility] Blood Collection / Unknown 09/26/2024 4:52 AM CDT 09/26/2024 5:26 AM CDT us External Provider [facility] CHEMISTRY ORDERABLES Final Result [facility] CLIA # [id number] [address] [place] [address] documented in this encounter Visit Diagnoses Not on filedocumented in this encounter Additional Health Concerns Infection Onset Date Last Indicated Resolved Time R/O GI Pathogen 10/27/2024 10/27/2024 10/27/2024 1 :05 PM CDT C Diff 10/27/2024 10/27/2024 documented as of this encounter Care Teams Electronic Resources Librarian Relationship Specialty Start Date End Date Non-Staff, Physician NO ADDRESS ON FILE PCP - General 08/30/13 documented as of this encounter
--- OUTSIDE RECORDS SUMMARY | 2024-11-14 23:04 | XMS_ITS | Encounter Summary ---
Author Organization [employer] Address 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 Gender Identity Not on file Sexual Orientation Not on file documented as of this encounter Plan of Treatment Not on file documented as of this encounter Procedures Procedure Name Priority Date/Time Associated Diagnosis Comments CBC WITH DIFFERENTIAL Routine 10/13/2024 2:41 AM CDT COMPREHENSIVE METABOLIC PANEL Routine 10/13/2024 2:41 AM CDT documented in this encounter Results * (ABNORMAL) COMPREHENSIVE METABOLIC PANEL (10/13/2024 2:41 AM CDT) [facility] SODIUM 136 136 - 145 mmol/L 10/13/2024 6:50 AM T [facility] POTASSIUM 3.3(L) 3.5 - 5.1 mmol/L 10/13/2024 6:50 AM [facility] CHLORIDE 98 98 - 107 mmol/L 10/13/2024 6:50 AM [facility] CO2 22 22 - 29 mmol/L 10/13/2024 6:50 AM T [facility] CALCIUM 9.2 8.8 - 10.2 mg/dL 10/13/2024 6:50 AM [facility] BUN 8 8 - 23 mg/dL 10/13/2024 6:50 AM [facility] CREATININE 0.46(L) 0.51 - 0.95 mg/dL 10/13/2024 6:50 AM [facility] Comment:The GFR result is no t clinically significant on patients <18 or >70 years of age. GLUCOSE 94 74 - 99 mg/dL 10/13/2024 6:50 AM [facility] TOTAL PROTEIN 6.9 6.4 - 8.3 g/dL 10/13/2024 6:50 AM [facility] ALBUMIN 3.2(L) 3.5 - 5.2 g/dL 10/13/2024 6:50 AM [facility] BILIRUBIN TOTAL 0.3 0.0 - 1.0 mg/dL 10/13/2024 6:50 AM [facility] ALKALINE PHOSPHATASE 86 35 - 104 U/L 10/13/2024 6:50 AM [facility] AST 26 10 - 35 U/L 10/13/2024 6:50 AM [facility] ALT 33 <=35 U/L 10/13/2024 6:50 AM [facility] GFR >60 mL/min/1. 73 sq meter 10/13/2024 6:50 AM [facility] Comment:eGFR calculated with 2020 CKD-EPI equation. Vegetarian diet, extremely high or low muscle mass, and may affect results. Cystatin C with Glomerular Filtration Rate is a suitable alternative for these patients. ANION GAP 16 9 - 20 mmol/L 10/13/2024 6:50 AM T [facility] Blood Collection / Unknown 10/13/2024 2:41 AM CDT 10/13/2024 6:05 AM CDT us External Provider [facility] CHEMISTRY ORDERABLES Final Result [facility] CLIA # [id number] [address] [place] [address] * (ABNORMAL) CBC WITH DIFFERENTIAL (10/13/2024 2:41 AM CDT) WBC 10.1 4.8 - 10.8 K/uL 10/13/2024 6:13 AM [facility] RBC 4.31 4.20 - 5.40 M/uL 10/13/2024 6:13 AM [facility] HEMOGLOBIN 11.7(L) 12.0 - 16.0 g/dL 10/13/2024 6:13 AM [facility] HEMATOCRIT 36.7 36.0 - 46.0 % 10/13/2024 6:13 AM [facility] MCV 85.2 84.0 - 103.0 fL 10/13/2024 6:13 AM [facility] MCH 27.1 27.0 - 34.0 pg 10/13/2024 6:13 AM [facility] MCHC 31.9 30.0 - 35.0 g/dL 10/13/2024 6:13 AM [facility] PLATELETS 424 140 - 440 K/uL 10/13/2024 6:13 AM [facility] MPV 9.9 8.9 - 12.8 fL 10/13/2024 6:13 AM [facility] RDW 15.6(H) 11.0 - 14.5 % 10/13/2024 6:13 AM [facility] RDW-STDEV 48.0 37.0 - 54.0 fL 10/13/2024 6:13 AM [facility] NEUTROPHILS 67 42 - 75 % 10/13/2024 6:13 AM [facility] LYMPHOCYTES 20(L) 24 - 44 % 10/13/2024 6:13 AM [facility] MONOCYTES 9 2 - 10 % 10/13/2024 6:13 AM [facility] EOSINOPHILS 3 0 - 7 % 10/13/2024 6:13 AM [facility] BASOPHILS 1 0 - 1 % 10/13/2024 6:13 AM [facility] IMMATURE GRANULOCYTES 1 0 - 2 % 10/13/2024 6:13 AM [facility] NEUTROPHIL ABSOLUTE 6.79 2.00 - 8.00 K/uL 10/13/2024 6:13 AM [facility] LYMPHOCYTE ABSOLUTE 2.06 1.20 - 4.00 K/uL 10/13/2024 6:13 AM [facility] MONOCYTE ABSOLUTE 0.89(H) 0.10 - 0.60 K/uL 10/13/2024 6:13 AM [facility] EOSINOPHIL ABSOLUTE 0.28 0.00 - 0.70 K/uL 10/13/2024 6:13 AM [facility] BASOPHILS ABSOLUTE 0.06 0.00 - 0.20 K/uL 10/13/2024 6:13 AM [facility] IMMATURE GRANULOCYTES ABSOLUTE 0.06 0.00 - 0.10 K/uL 10/13/2024 6:13 AM [facility] SMEAR REVIEWED: NA - Not Applicable 10/13/2024 6:13 AM [facility] Blood Collection / Unknown 10/13/2024 2:41 AM CDT 10/13/2024 6:05 AM CDT us External Provider [facility] HEMATOLOGY ORDERABLES Christiana l Result [facility] # [id number] [id number] [place] [address] documented in this encounter Visit Diagnoses Not on filedocumented in this encounter Additional Health Concerns Infection Onset Date Last Indicated Resolved Time R/O GI Pathogen 10/27/2024 10/27/2024 10/27/2024 1 :05 PM CDT C Diff 10/27/2024 10/27/2024 documented as of this encounter Care Teams Security Software Engineer Relationship Specialty Start Date End Date Non-Staff, Physician NO ADDRESS ON FILE PCP - General 08/30/13 documented as of this encounter
--- OUTSIDE RECORDS SUMMARY | 2024-11-14 23:04 | XMS_ITS | Encounter Summary ---
Author Organization [facility] Address [address] [place] [address] Care Team Providers Care Clinical Secretary Name Role Phone Non-Staff, Physician Primary Care Provider Unava ilable Encounter Details Date Type Department Care Team (Latest Contact Info) Description 11/17/[address] 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
--- OUTSIDE RECORDS SUMMARY | 2024-11-14 23:04 | XMS_ITS | Encounter Summary ---
Author Organization [employer] Address 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 Gender Identity Not on file Sexual Orientation Not on file documented as of this encounter Plan of Treatment Not on file documented as of this encounter Procedures Procedure Name Priority Date/Time Associated Diagnosis Comments URINALYSIS W/REFLEX MICROSCOPIC Routine 10/18/2024 2:30 AM CDT documented in this encounter Results * (ABNORMAL) URINALYSIS WITH REFLEX MICROSCOPIC (10/18/2024 2:30 AM CDT) COLOR UA Colorless(A ) Pale to Dark Yellow 10/18/2024 4:51 AM CDT [facility] CLARITY UA Clear Clear 10/18/2024 4:51 AM CDT [facility] SPECIFIC GRAVITY UA 1.005 1.003 - 1.035 10/18/2024 4:51 AM CDT [facility] PH UA 5.0 5.0 - 8.0 10/18/2024 4:51 AM CDT [facility] LEUKOCYTE ESTERASE UA Negative Negative 10/18/2024 4:51 AM CDT [facility] NITRITE UA Negative Negative 10/18/2024 4:51 AM CDT [facility] PROTEIN UA Negative Negative 10/18/2024 4:51 AM CDT [facility] GLUCOSE UA Negative Negative 10/18/2024 4:51 AM CDT [facility] KETONES UA Negative Negative 10/18/2024 4:51 AM CDT [facility] UROBILINOGEN UA <2.0 <2.0 mg/dL 4:51 AM CDT [facility] BILIRUBIN UA Negative Negative 10/18/2024 4:51 AM CDT [facility] BLOOD UA Negative Negative 10/18/2024 4:51 AM T [facility] Urine URINE SPECIMEN OBTAINED BY CLEAN CATCH PROCEDURE / Unknown Collection / Unknown 10/18/2024 2:30 AM CDT 10/18/2024 4:46 AM CDT us Kiarra Charles MD URINE ORDERABLES Final Res ult [facility] CLIA # [id number] [address] [place] [id number] documented in this encounter Visit Diagnoses Not on filedocumented in this encounter Additional Health Concerns Infection Onset Date Last Indicated Resolved Time R/O GI Pathogen 10/27/2024 10/27/2024 10/27/2024 1 :05 PM CDT C Diff 10/27/2024 10/27/2024 documented as of this encounter Care Teams Making Department Preparer Relationship Specialty Start Date End Date Non-Staff, Physician NO ADDRESS ON FILE PCP - General 08/30/13 documented as of this encounter
--- OUTSIDE RECORDS SUMMARY | 2024-11-14 23:04 | XMS_ITS | Encounter Summary ---
Author Organization [facility] Address [address] [place] [address] Care Team Providers Care Assistant Professor Of Communication Name Role Phone Non-Staff, Physician Primary Care Provider Unava ilable Reason for Visit * Reason Onset Date Comments Question 11/14/2024 Encounter Details Date Type Department Care Team (Late st Contact Info) Description 11/14/[address] [facility] General and Trauma Surgery-[place] 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 Reagan's current medical condition. It appearsthat the pt has had 2-4 weeks of continuous nausea intermittent vomiting and copious watery diarrhea. The daughter notes that the stool is particularly foul smelling and over the course of the last 7days she had had an increasingly difficult time in keeping foods down. She is now experiencing somescant bleeding at her nearly healed midline incision as well as what sounds like scalded skin around the ostomy site where the ostomy devise is not fitting well and having stool leaking out onto her skin. None of these issues are able to be adequately addressed over the phone. I recommended that the pt be seen at the nearest ED facility to expedite her evaluation and recovery. The pt was previously diagnosed with C-diff on 10/27 and she may have not cleared this illness and at a minimum it wouldappear that she could have profound electrolyte abnormalities given all the volume loss with her emesis and diarrhea. I again encouraged her to take the pt to a provider tonight for her to be evaluated and treated. She expressed understanding and I understood her to agree and would comply. CANDIS Jacob documented in this encounter Plan of Treatment Not on file documented as of this encounter Visit Diagnoses Not on filedocumented in this encounter Additional Health Concerns Infection Onset Date Last Indicated Resolved Time C Diff 10/27/2024 10/27/2024 documented as of this encounter Care Teams Assistant Professor Of Communication Relationship Specialty Start Date End Date Non-Staff, Physician NO ADDRESS ON FILE PCP - General 08/30/13 documented as of this encounter
--- OUTSIDE RECORDS SUMMARY | 2024-11-14 23:04 | XMS_ITS | Encounter Summary ---
Author Organization [employer] Address 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
--- OUTSIDE RECORDS SUMMARY | 2024-11-14 23:04 | XMS_ITS | Encounter Summary ---
Author Organization [facility] Address [address] [place] [address] Care Team Providers Care Last Putter Away Name Role Phone Non-Staff, Physician Primary Care Provider Unava ilable Encounter Details Date Type Department Care Team (Latest Contact Info) Description 09/07/2003 Outpatient Historical [facility] General Surgery [address] [address] [place] [phone] [place] [address] [facility] [address] [place] [address] SURGERY FOLLOWUP, UNSPEC (Primary Dx); CHOLELITH W ACUTE GB DIS-NO OBSTR; Umbilical hernia Social History Tobacco Use Types Packs/Day Years Used Date Smoking Tobacco: Never Assessed Comments Unknown Sex and Gender Information Value Date Recorded Sex Assigned at Not on file 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
--- OUTSIDE RECORDS SUMMARY | 2024-11-14 23:04 | XMS_ITS | Encounter Summary ---
Author Organization [facility] Address [address] [place] [address] Care Team Providers Care Office Rn Name Role Phone Non-Staff, Physician Primary Care Provider Unava ilable Encounter Details Date Type Department Care Team (Latest Contact Info) Description 09/29/2003 Outpatient Historical [facility] Family Medicine- [address] [place] [phone] Wanda Castro MD NO ADDRESS ON FILE HYPERTENSION NOS (Primary Dx); BRIEF DEPRESSIVE REACT; Plantar fibromatosis Social History Tobacco Use Types Packs/Day Years Used Date Smoking Tobacco: Never Assessed Comments Unknown Sex and Gender Information Value Date Recorded Sex Assigned at Not on file 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
--- OUTSIDE RECORDS SUMMARY | 2024-11-14 23:04 | XMS_ITS | Encounter Summary ---
Author Organization [employer] Address 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 Gender Identity Not on file Sexual Orientation Not on file documented as of this encounter Plan of Treatment Not on file documented as of this encounter Procedures Procedure Name Priority Date/Time Associated Diagnosis Comments DIFFERENTIAL, MANUAL Routine 09/17/2024 9:50 AM CDT CBC WITH DIFFERENTIAL Routine 09/17/2024 9:50 AM CDT C-REACTIVE PROTEIN Routine 09/17/2024 9: 50 AM CDT COMPREHENSIVE METABOLIC PANEL Routine 09/17/2024 9:50 AM CDT documented in this encounter Results * (ABNORMAL) MANUAL DIFFERENTIAL (09/17/2024 9:50 AM CDT) SEGMENTED NEUTROPHILS 82(H) 36 - 66 % 09/17/2024 11:03 AM T [facility] LYMPHOCYTES RELATIVE 5(L) 24 - 44 % 09/17/2024 11:03 AM [facility] MONOCYTES RELATIVE 7 4 - 10 % 2024 11:03 AM [facility] EOSINOPHILS RELATIVE 3 0 - 3 % 09/17/2024 11:03 AM [facility] METAMYELOCYTES RELATIVE 1 0 - 1 % 09/17/2024 11:03 AM [facility] MYELOCYTES - REL (DIFF) 2(H) 0 - 1 % 09/17/2024 11:03 AM [facility] PLATELET EST. Adequate 09/17/2024 11:03 AM [facility] NEUTROPHILS ABSOLUTE COUNT 8.86(H) 2.00 - 8.00 K/uL 09/17/2024 11:03 AM [facility] LYMPHOCYTES ABSOLUTE 0.54(L) 1.20 - 4.00 K/uL 09/17/2024 11:03 AM [facility] ATYPICAL LYMPHS ABSOLUTE 09/17/2024 11:03 AM [facility] MONOCYTES ABSOLUTE 0.76(H) 0.10 - 0.60 K/uL 09/17/2024 11:03 AM [facility] EOSINOPHILS ABSOLUTE 0.32 0.00 - 0.70 K/uL 09/17/2024 11:03 AM [facility] ANISOCYTOSIS 2+ /hpf 09/17/2024 11:03 AM [facility] POIKILOCYTES 1+ /hpf 09/17/2024 11:03 AM [facility] POLYCHROMASIA 1+ /hpf 09/17/2024 11:03 AM CDT [facility] TOTAL CELLS COUNTED IN DIFF 100 09/17/2024 11:03 AM CDT [facility] Blood Collection / Unknown 09/17/2024 9:50 AM CDT 09/17/2024 10:34 AM CDT Harry Reyes DO HEMATOLOGY ORDERABLES COM Fi nal Result Performing Organization Address [facility] Co de Phone Number [facility] CLIA # [id number] [address] [id number] * (ABNORMAL) C-REACTIVE PROTEIN (09/17/2024 9:50 AM CDT) CRP 92.2(H) 0.0 - 5.0 mg/L 09/17/2024 11:16 AM CDT [facility] Blood Collection / Unknown 09/17/2024 9:50 AM CDT 09/17/2024 10:34 AM CDT Harry Reyes DO CHEMISTRY ORDERABLES Final R esult Performing Organization Address [facility] Co de Phone Number [facility] CLIA # [id number] [address] [address] * (ABNORMAL) CBC WITH DIFFERENTIAL (09/17/2024 9:50 AM CDT) WBC 10.8 4.8 - 10.8 K/uL 09/17/2024 11:03 AM CDT [facility] RBC 3.14(L) 4.20 - 5.40 M/uL 09/17/2024 11:03 AM CDT [facility] HEMOGLOBIN 8.6(L) 12.0 - 16.0 g/dL 09/17/2024 11:03 AM CDT [facility] HEMATOCRIT 27.1(L) 36.0 - 46.0 % 09/17/2024 11:03 AM [facility] MCV 86.3 84.0 - 103.0 fL 09/17/2024 11:03 AM [facility] MCH 27.4 27.0 - 34.0 pg 09/17/2024 11:03 AM [facility] MCHC 31.7 30.0 - 35.0 g/dL 09/17/2024 11:03 AM [facility] PLATELETS 433 140 - 440 K/uL 09/17/2024 11:03 AM [facility] MPV 10.4 8.9 - 12.8 fL 09/17/2024 11:03 AM [facility] RDW 19.7(H) 11.0 - 14.5 % 09/17/2024 11:03 AM [facility] RDW-STDEV 60.0(H) 37.0 - 54.0 fL 09/17/2024 11:03 AM [facility] SMEAR REVIEWED: - See Manual Diff. 09/17/2024 11:03 AM [facility] Blood Collection / Unknown 09/17/2024 9:50 AM CDT 09/17/2024 10:34 AM CDT Harry Reyes DO HEMATOLOGY ORDERABLES Final Result [facility] CLIA # [id number] [address] [place] [address] [place], [place] [id number] * (ABNORMAL) COMPREHENSIVE METABOLIC PANEL (09/17/2024 9:50 AM CDT) SODIUM 133(L) 136 - 145 mmol/L 09/17/2024 11:16 AM T [facility] POTASSIUM 4.6 3.5 - 5.1 mmol/L 09/17/2024 11:16 AM [facility] CHLORIDE 99 98 - 107 mmol/L 09/17/2024 11:16 AM [facility] CO2 23 22 - 29 mmol/L 09/17/2024 11:16 AM [facility] CALCIUM 7.8(L) 8.8 - 10.2 mg/dL 09/17/2024 11:16 AM [facility] BUN 12 8 - 23 mg/dL 09/17/2024 11:16 AM [facility] CREATININE 0.65 0.51 - 0.95 mg/dL 09/17/2024 11:16 AM [facility] Comment:The GFR result is no t clinically significant on patients <18 or >70 years of age. GLUCOSE 117(H) 74 - 99 mg/dL 09/17/2024 11:16 AM [facility] TOTAL PROTEIN 5.4(L) 6.4 - 8.3 g/dL 09/17/2024 11:16 AM [facility] ALBUMIN 2.3(L) 3.5 - 5.2 g/dL 09/17/2024 11:16 AM [facility] BILIRUBIN TOTAL 0.3 0.0 - 1.0 mg/dL 09/17/2024 11:16 AM [facility] ALKALINE PHOSPHATASE 104 35 - 104 U/L 09/17/2024 11:16 AM [facility] AST 89(H) 10 - 35 U/L 09/17/2024 11:16 AM [facility] ALT 60(H) <=35 U/L 09/17/2024 11:16 AM [facility] GFR >60 mL/min/1.7 3 sq meter 09/17/2024 11:16 AM [facility] Comment:eGFR calculated with 2020 CKD-EPI equation. Vegetarian diet, extremely high or low muscle mass, and may affect results. Cystatin C with Glomerular Filtration Rate is a suitable alternative for these patients. ANION GAP 11 9 - 20 mmol/L 09/17/2024 11:16 AM CDT [facility] Blood Collection / Unknown 09/17/2024 9:50 AM CDT 09/17/2024 10:34 AM CDT Harry Reyes DO CHEMISTRY ORDERABLES Final R esult [facility] CLIA # [id number] [address] [address] documented in this encounter Visit Diagnoses Not on filedocumented in this encounter Additional Health Concerns Infection Onset Date Last Indicated Resolved Time R/O GI Pathogen 10/27/2024 10/27/2024 10/27/2024 1 :05 PM CDT C Diff 10/27/2024 10/27/2024 documented as of this encounter Care Teams Asbestos Pipe Supervisor Relationship Specialty Start Date End Date Non-Staff, Physician NO ADDRESS ON FILE PCP - General 08/30/13 documented as of this encounter
--- OUTSIDE RECORDS SUMMARY | 2024-11-14 23:04 | XMS_ITS | Encounter Summary ---
Author Organization [facility] Address [address] [place] [address] Care Team Providers Care Coil Former Name Role Phone Non-Staff, Physician Primary Care Provider Unava ilable Encounter Details Date Type Department Care Team (Latest Contact Info) Description 09/30/2002 Outpatient Historical [facility] Family Medicine- [address] [place] [address] Wanda Castro MD NO ADDRESS ON FILE MIGRAINE NOS W/O MENTN INTRACTABLE (Primary Dx) Social History Tobacco Use Types Packs/Day Years Used Date Smoking Tobacco: Never Assessed Comments Unknown Sex and Gender Information Value Date Recorded Sex Assigned at Not on file 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
--- OUTSIDE RECORDS SUMMARY | 2024-11-14 23:04 | XMS_ITS | Encounter Summary ---
Author Organization [facility] Address [address] [place] [address] Care Team Providers Care Slide Fastener Chain Assembler Name Role Phone Non-Staff, Physician Primary Care Provider Unava ilable Encounter Details Date Type Department Care Team (Latest Contact Info) Description 04/18/2005 Outpatient Historical [facility] Family Medicine- [address] [place] [address] Wanda Castro MD NO ADDRESS ON FILE HYPERTENSION NOS (Primary Dx) Social History Tobacco Use Types Packs/Day Years Used Date Smoking Tobacco: Never Assessed Comments Unknown Sex and Gender Information Value Date Recorded Sex Assigned at Not on file 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
--- OUTSIDE RECORDS SUMMARY | 2024-11-14 23:04 | XMS_ITS | Encounter Summary ---
Author Organization [facility] Address 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
--- OUTSIDE RECORDS SUMMARY | 2024-11-14 23:04 | XMS_ITS | Encounter Summary ---
Author Organization [employer] Address [address] [place] [address] Care Team Providers Care Cooker Loader Name Role Phone Non-Staff, Physician Primary Care Provider Unava ilable Encounter Details Date Type Department Care Team (Late st Contact Info) Description 09/22/2024 Lab Requisition [facility] Laboratory Services [address] [place] [address] Harry Reyes, DO [address] [place] [address] Social History Tobacco Use Types [...] on file Legal Sex Female 11:03 AM WAN SUPPORT SPECIALIST Gender Identity Not on file Sexual Orientation Not on file documented as of this encounter Plan of Treatment Not on file documented as of this encounter Procedures Procedure Name Priority Date/Time Associated Diagnosis Comments TSH Routine 09/22/2024 3:15 PM CDT documented in this encounter Results * (ABNORMAL) TSH (09/22/2024 3:15 PM CDT) TSH 5.47(H) 0.27 - 4.20 uIU/mL 09/22/2024 7:14 PM CDT [facility] Blood Collection / Unknown 09/22/2024 3:15 PM CDT 09/22/2024 6:43 PM CDT us Harry Reyes DO CHEMISTRY ORDERABLES Final R esult [facility] CLIA # [id number] [address] [address] documented in this encounter Visit Diagnoses Not on filedocumented in this encounter Additional Health Concerns Infection Onset Date Last Indicated Resolved Time R/O GI Pathogen 10/27/2024 10/27/2024 10/27/2024 1 :05 PM CDT C Diff 10/27/2024 10/27/2024 documented as of this encounter Care Teams Cooker Loader Relationship Specialty Start Date End Date Non-Staff, Physician NO ADDRESS ON FILE PCP - General 08/30/13 documented as of this encounter
--- OUTSIDE RECORDS SUMMARY | 2024-11-14 23:04 | XMS_ITS | Encounter Summary ---
Author Organization [email or web address] [facility] Address [address] [place] [address] Care Team Providers Care Shoes Salesperson Name Role Phone Non-Staff, Physician Primary Care Provider Unava ilable Encounter Details Date Type Department Care Team (Late [facility] Info) Description 08/30/2003 Outpatient Historical [facility] [place] [address] 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
--- OUTSIDE RECORDS SUMMARY | 2024-11-14 23:04 | XMS_ITS | Encounter Summary ---
Author Organization [employer] Address 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
--- OUTSIDE RECORDS SUMMARY | 2024-11-14 23:04 | XMS_ITS | Encounter Summary ---
Author Organization [employer] Address 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 Gender Identity Not on file Sexual Orientation Not on file documented as of this encounter Plan of Treatment Not on file documented as of this encounter Procedures Procedure Name Priority Date/Time Associated Diagnosis Comments CBC WITH DIFFERENTIAL Routine 10/06/2024 4:15 AM CDT COMPREHENSIVE METABOLIC PANEL Routine 10/06/2024 4:15 AM CDT documented in this encounter Results * (ABNORMAL) CBC WITH DIFFERENTIAL (10/06/2024 4:15 AM CDT) [facility] WBC 9.8 4.8 - 10.8 K/uL 10/06/2024 6:27 AM T [facility] RBC 3.88(L) 4.20 - 5.40 M/uL 10/06/2024 6:27 AM T [facility] HEMOGLOBIN 10.6(L) 12.0 - 16.0 g/dL 10/06/2024 6:27 AM T [facility] HEMATOCRIT 34.9(L) 36.0 - 46.0 % 10/06/2024 6:27 AM T [facility] MCV 89.9 84.0 - 103.0 fL 10/06/2024 6:27 AM [facility] MCH 27.3 27.0 - 34.0 pg 10/06/2024 6:27 AM [facility] MCHC 30.4 30.0 - 35.0 g/dL 10/06/2024 6:27 AM [facility] PLATELETS 426 140 - 440 K/uL 10/06/2024 6:27 AM [facility] MPV 10.2 8.9 - 12.8 fL 10/06/2024 6:27 AM [facility] RDW 16.8(H) 11.0 - 14.5 % 10/06/2024 6:27 AM [facility] RDW-STDEV 55.1(H) 37.0 - 54.0 fL 10/06/2024 6:27 AM [facility] NEUTROPHILS 57 42 - 75 % 10/06/2024 6:27 AM T [facility] LYMPHOCYTES 27 24 - 44 % 10/06/2024 6:27 AM T [facility] MONOCYTES 10 2 - 10 % 10/06/2024 6:27 AM CDT [facility] EOSINOPHILS 5 0 - 7 % 10/06/2024 6:27 AM CDT [facility] BASOPHILS 1 0 - 1 % 10/06/2024 6:27 AM CDT [facility] IMMATURE GRANULOCYTES 1 0 - 2 % 10/06/2024 6:27 AM CDT [facility] NEUTROPHIL ABSOLUTE 5.55 2.00 - 8.00 K/uL 10/06/2024 6:27 AM CDT [facility] LYMPHOCYTE ABSOLUTE 2.61 1.20 - 4.00 K/uL 10/06/2024 6:27 AM CDT [facility] MONOCYTE ABSOLUTE 0.96(H) 0.10 - 0.60 K/uL 10/06/2024 6:27 AM CDT [facility] EOSINOPHIL ABSOLUTE 0.51 0.00 - 0.70 K/uL 10/06/2024 6:27 AM CDT [facility] BASOPHILS ABSOLUTE 0.06 0.00 - 0.20 K/uL 10/06/2024 6:27 AM CDT [facility] IMMATURE GRANULOCYTES ABSOLUTE 0.08 0.00 - 0.10 K/uL 10/06/2024 6:27 AM T [facility] SMEAR REVIEWED: NA - Not Applicable 10/06/2024 6:27 AM [facility] Blood Collection / Unknown 10/06/2024 4:15 AM CDT 10/06/2024 6:10 AM CDT Harry Reyes DO HEMATOLOGY ORDERABLES Final Result [facility] CLIA # [id number] Critical access hospital[address] [address] * (ABNORMAL) COMPREHENSIVE METABOLIC PANEL (10/06/2024 4:15 AM CDT) SODIUM 136 136 - 145 mmol/L 10/06/2024 7:01 AM T [facility] POTASSIUM 3.7 3.5 - 5.1 mmol/L 10/06/2024 7:01 AM CDT [facility] CHLORIDE 99 98 - 107 mmol/L 10/06/2024 7:01 AM [facility] CO2 25 22 - 29 mmol/L 10/06/2024 7:01 AM [facility] CALCIUM 8.8 8.8 - 10.2 mg/dL 10/06/2024 7:01 AM [facility] BUN 11 8 - 23 mg/dL 10/06/2024 7:01 AM [facility] CREATININE 0.49(L) 0.51 - 0.95 mg/dL 10/06/2024 7:01 AM [facility] Comment:The GFR result is no t clinically significant on patients <18 or >70 years of age. GLUCOSE 142(H) 74 - 99 mg/dL 10/06/2024 7:01 AM [facility] TOTAL PROTEIN 6.6 6.4 - 8.3 g/dL 10/06/2024 7:01 AM [facility] ALBUMIN 2.7(L) 3.5 - 5.2 g/dL 10/06/2024 7:01 AM [facility] BILIRUBIN TOTAL 0.2 0.0 - 1.0 mg/dL 10/06/2024 7:01 AM [facility] ALKALINE PHOSPHATASE 80 35 - 104 U/L 10/06/2024 7:01 AM [facility] AST 31 10 - 35 U/L 10/06/2024 7:01 AM [facility] ALT 38(H) <=35 U/L 10/06/2024 7:01 AM [facility] GFR >60 mL/min/1. 73 sq meter 10/06/2024 7:01 AM [facility] Comment:eGFR calculated with 2020 CKD-EPI equation. Vegetarian diet, extremely high or low muscle mass, and may affect results. Cystatin C with Glomerular Filtration Rate is a suitable alternative for these patients. ANION GAP 12 9 - 20 mmol/L 10/06/2024 7:01 AM [facility] Blood Collection / Unknown 10/06/2024 4:15 AM CDT 10/06/2024 6:09 AM CDT Harry Reyes DO CHEMISTRY ORDERABLES Final R esult Performing Organization Address City/State/[facility] Co de Phone Number [facility] # [id number] [address] [place] [address] documented in this encounter Visit Diagnoses Not on filedocumented in this encounter Additional Health Concerns Infection Onset Date Last Indicated Resolved Time R/O GI Pathogen 10/27/2024 10/27/2024 10/27/2024 1 :05 PM CDT C Diff 10/27/2024 10/27/2024 documented as of this encounter Care Teams Orchestra Leader Relationship Specialty Start Date End Date Non-Staff, Physician NO ADDRESS ON FILE PCP - General 08/30/13 documented as of this encounter
--- OUTSIDE RECORDS SUMMARY | 2024-11-14 23:04 | XMS_ITS | Encounter Summary ---
Author Organization [employer] Address 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 Gender Identity Not on file Sexual Orientation Not on file documented as of this encounter Plan of Treatment Not on file documented as of this encounter Procedures Procedure Name Priority Date/Time Associated Diagnosis Comments CBC WITH DIFFERENTIAL Stat 09/22/2024 4:15 AM CDT TROPONIN Stat 09/22/2024 4:15 AM CDT PHOSPHORUS Routine 09/22/2024 4:15 AM CDT MAGNESIUM LEVEL Routine 09/22/2024 4:15 AM CDT COMPREHENSIVE METABOLIC PANEL Stat 09/22/2024 4:15 AM CDT documented in this encounter Results * PHOSPHORUS (09/22/2024 4:15 AM CDT) Pathologist [facility] PHOSPHORUS 2.8 2.5 - 4.5 mg/dL 09/22/2024 8:43 AM CDT [facility] Blood Collection / Unknown 09/22/2024 4:15 AM CDT 09/22/2024 5:17 AM CDT Harry Reyes DO CHEMISTRY ORDERABLES Final R esult Performing Organization Address City/[facility] Co de Phone Number [facility] CLIA # [id number] [address] [address] * MAGNESIUM LEVEL (09/22/2024 4:15 AM CDT) Pathologist [facility] MAGNESIUM 1.6 1.6 - 2.4 mg/dL 09/22/2024 8:43 AM CDT [facility] Blood Collection / Unknown 09/22/2024 4:15 AM CDT 09/22/2024 5:17 AM CDT Harry Reyes DO CHEMISTRY ORDERABLES Final R esult Performing Organization Address City/[facility]/ZIP Co de Phone Number [facility] CLIA # [id number] [address] [address] * (ABNORMAL) CBC WITH DIFFERENTIAL (09/22/2024 4:15 AM CDT) Pathologist [facility] WBC 9.0 4.8 - 10.8 K/uL 09/22/2024 5:27 AM [facility] RBC 3.25(L) 4.20 - 5.40 M/uL 09/22/2024 5:27 AM [facility] HEMOGLOBIN 8.9(L) 12.0 - 16.0 g/dL 09/22/2024 5:27 AM [facility] HEMATOCRIT 29.0(L) 36.0 - 46.0 % 09/22/2024 5:27 AM [facility] MCV 89.2 84.0 - 103.0 fL 09/22/2024 5:27 AM [facility] MCH 27.4 27.0 - 34.0 pg 09/22/2024 5:27 AM [facility] MCHC 30.7 30.0 - 35.0 g/dL 09/22/2024 5:27 AM [facility] PLATELETS 561(H) 140 - 440 K/uL 09/22/2024 5:27 AM [facility] MPV 10.3 8.9 - 12.8 fL 09/22/2024 5:27 AM [facility] RDW 20.2(H) 11.0 - 14.5 % 09/22/2024 5:27 AM [facility] RDW-STDEV 63.7(H) 37.0 - 54.0 fL 09/22/2024 5:27 AM [facility] NEUTROPHILS 62 42 - 75 % 09/22/2024 5:27 AM [facility] LYMPHOCYTES 21(L) 24 - 44 % 09/22/2024 5:27 AM [facility] MONOCYTES 10 2 - 10 % 09/22/2024 5:27 AM [facility] EOSINOPHILS 4 0 - 7 % 09/22/2024 5:27 AM [facility] BASOPHILS 1 0 - 1 % 09/22/2024 5:27 AM [facility] IMMATURE GRANULOCYTES 2 0 - 2 % 09/22/2024 5:27 AM [facility] NEUTROPHIL ABSOLUTE 5.59 2.00 - 8.00 K/uL 09/22/2024 5:27 AM CDT [facility] LYMPHOCYTE ABSOLUTE 1.88 1.20 - 4.00 K/uL 09/22/2024 5:27 AM CDT [facility] MONOCYTE ABSOLUTE 0.91(H) 0.10 - 0.60 K/uL 09/22/2024 5:27 AM CDT [facility] EOSINOPHIL ABSOLUTE 0.38 0.00 - 0.70 K/uL 09/22/2024 5:27 AM CDT [facility] BASOPHILS ABSOLUTE 0.06 0.00 - 0.20 K/uL 09/22/2024 5:[facility] I[facility] GRANULOC[facility] ABSOLUTE 0.13(H) 0.00 - 0.10 K/uL 09/22/2024 5:27 AM [facility] SMEAR REVIEWED: NN - No Action Needed 09/22/2024 5:27 AM T [facility] Blood Collection / Unknown 09/22/2024 4:15 AM CDT 09/22/2024 5:17 AM CDT Harry Reyes DO HEMATOLOGY ORDERABLES Final Result [facility] CLIA # [id number] [address] [place] [address] * (ABNORMAL) TROPONIN (09/22/2024 4:15 AM CDT) TROPONIN T, 5TH GEN 28(H) <=10 ng/L 09/22/2024 5:50 AM CDT [facility] Blood Collection / Unknown 09/22/2024 4:15 AM CDT 09/22/2024 5:17 AM CDT Narrative [facility] - 09/22/2024 5:50 AM CDT Troponin elevated. Harry Reyes DO CHEMISTRY ORDERABLES Final R esult [facility] DAVID # [id number] [id number] [place] [address] * (ABNORMAL) COMPREHENSIVE METABOLIC PANEL (09/22/2024 4:15 AM CDT) [facility] SODIUM 139 136 - 145 mmol/L 09/22/2024 5:54 AM T [facility] POTASSIUM 3.4(L) 3.5 - 5.1 mmol/L 09/22/2024 5:54 AM T [facility] CHLORIDE 101 98 - 107 mmol/L 09/22/2024 5:54 AM T [facility] CO2 25 22 - 29 mmol/L 09/22/2024 5:54 AM T [facility] CALCIUM 8.2(L) 8.8 - 10.2 mg/dL 09/22/2024 5:54 AM T [facility] BUN 11 8 - 23 mg/dL 09/22/2024 5:54 AM T [facility] CREATININE 0.52 0.51 - 0.95 mg/dL 09/22/2024 5:54 AM [facility] Comment:The GFR result is no t clinically significant on patients <18 or >70 years of age. GLUCOSE 181(H) 74 - 99 mg/dL 09/22/2024 5:54 AM T [facility] TOTAL PROTEIN 5.9(L) 6.4 - 8.3 g/dL 09/22/2024 5:54 AM T [facility] ALBUMIN 2.7(L) 3.5 - 5.2 g/dL 09/22/2024 5:54 AM T [facility] BILIRUBIN TOTAL 0.2 0.0 - 1.0 mg/dL 09/22/2024 5:54 AM [facility] ALKALINE PHOSPHATASE 78 35 - 104 U/L 09/22/2024 5:54 AM CDT [facility] AST 39(H) 10 - 35 U/L 09/22/2024 5:54 AM CDT [facility] ALT 37(H) <=35 U/L 09/22/2024 5:54 AM CDT [facility] GFR >60 mL/min/1.7 3 sq meter 09/22/2024 5:54 AM CDT [facility] Comment:eGFR calculated with 2020 CKD-EPI equation. Vegetarian diet, extremely high or low muscle mass, and may affect results. Cystatin C with Glomerular Filtration Rate is a suitable alternative for these patients. ANION GAP 13 9 - 20 mmol/L 09/22/2024 5:54 AM T [facility] Blood Collection / Unknown 09/22/2024 4:15 AM CDT 09/22/2024 5:17 AM CDT Harry Reyes DO CHEMISTRY ORDERABLES Final R esult [facility] CLIA # [id number] [address] [place] [address] documented in this encounter Visit Diagnoses Not on filedocumented in this encounter Additional Health Concerns Infection Onset Date Last Indicated Resolved Time R/O GI Pathogen 10/27/2024 10/27/2024 10/27/2024 1 :05 PM CDT C Diff 10/27/2024 10/27/2024 documented as of this encounter Care Teams Tube Mounter Relationship Specialty Start Date End Date Non-Staff, Physician NO ADDRESS ON FILE PCP - General 08/30/13 documented as of this encounter
--- OUTSIDE RECORDS SUMMARY | 2024-11-14 23:04 | XMS_ITS | Encounter Summary ---
Author Organization [employer] Address 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 Result may be falsely elevated. CHLORIDE 116(H) 98 - 107 mmol/L 10/21/2024 4:52 PM T [facility] CO2 16(L) 22 - 29 mmol/L 10/21/2024 4:52 PM T [facility] CALCIUM 7.1(L) 8.8 - 10.2 mg/dL 10/21/2024 4:52 PM T [facility] BUN 1(L) 8 - 23 mg/dL 10/21/2024 4:[address] [facility] CREATININE 0.44(L) 0.51 - 0.95 mg/dL 10/21/2024 4:[address] [facility] Comment:The GFR result is no t clinically significant on patients <18 or >70 years of age. GLUCOSE 100(H) 74 - 99 mg/dL 10/21/2024 4:[address] [facility] GFR >60 mL/min/1. 73 sq meter 10/21/2024 4:[address] [facility] Comment:eGFR calculated with 2020 CKD-EPI equation. Vegetarian diet, extremely high or low muscle mass, and may affect results. Cystatin C with Glomerular Filtration Rate is a suitable alternative for these patients. ANION GAP 8(L) 9 - 20 mmol/L 10/21/2024 4:52 PM T [facility] Blood Collection / Unknown 10/21/2024 2:15 PM CDT 10/21/2024 4:19 PM CDT us External Provider [facility] CHEMISTRY ORDERABLES Final Result [facility] CLIA # [id number] [address] [place] [address] documented in this encounter Visit Diagnoses Not on filedocumented in this encounter Additional Health Concerns Infection Onset Date Last Indicated Resolved Time R/O GI Pathogen 10/27/2024 10/27/2024 10/27/2024 1 :05 PM CDT C Diff 10/27/2024 10/27/2024 documented as of this encounter Care Teams Social Media Campaign Manager Relationship Specialty Start Date End Date Non-Staff, Physician NO ADDRESS ON FILE PCP - General 08/30/13 documented as of this encounter
--- OUTSIDE RECORDS SUMMARY | 2024-11-14 23:04 | XMS_ITS | Encounter Summary ---
Author Organization [facility] Address [address] [place] [address] Care Team Providers Care Technician Telecommunication Systems Name Role Phone Non-Staff, Physician Primary Care Provider Unava ilable Encounter Details Date Type Department Care Team (Latest Contact Info) Description 01/13/2006 Outpatient Historical [facility]- 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
--- OUTSIDE RECORDS SUMMARY | 2024-11-14 23:04 | XMS_ITS | Encounter Summary ---
Author Organization [employer] Address 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 Gender Identity Not on file Sexual Orientation Not on file documented as of this encounter Plan of Treatment Not on file documented as of this encounter Procedures Procedure Name Priority Date/Time Associated Diagnosis Comments URINALYSIS WITH REFLEX CULTURE Routine 10/12/2024 1:30 AM CDT URINE CULTURE Routine 10/12/2024 1:30 AM CDT documented in this encounter Results * URINE CULTURE (10/12/2024 1:30 AM CDT) CULTURE Polymicrobial growth consistent with normal urethral magali and/or colonizing bacteria 10/13/2024 4:39 AM CDT [facility] Urine URINE SPECIMEN OBTAINED BY CLEAN CATCH PROCEDURE / Unknown Collection / Unknown 10/12/2024 1:30 AM CDT 10/12/2024 6:20 AM CDT us External Provider [facility] MICROBIOLOGY - GENERAL ORD ERABLES Final Result [facility] CLIA # [id number] [address] [place] [address] * (ABNORMAL) URINALYSIS WITH REFLEX CULTURE (10/12/2024 1:30 AM CDT) COLOR UA Pale Yellow Pale to Dark Yellow 10/12/2024 6:20 AM CDT [facility] CLARITY UA Cloudy(A) Clear 10/12/2024 6:20 AM T [facility] SPECIFIC GRAVITY UA 1.004 1.003 - 1.035 10/12/2024 6:20 AM T [facility] PH UA 5.5 5.0 - 8.0 10/12/2024 6:20 AM T [facility] LEUKOCYTE ESTERASE UA 3+(A) Negative 10/12/2024 6:20 AM T [facility] NITRITE UA Negative Negative 10/12/2024 6:20 AM T [facility] PROTEIN UA Trace(A) Negative 10/12/2024 6:20 AM T [facility] Comment: For patients with 'trace' results, consider ordering a culture and sensitivity if clinically indicated. GLUCOSE UA Negative Negative 10/12/2024 6:20 AM T [facility] KETONES UA Negative Negative 10/12/2024 6:20 AM T [facility] UROBILINOGEN UA <2.0 <2.0 mg/dL 6:20 AM CDT [facility] BILIRUBIN UA Negative Negative 10/12/2024 6:20 AM CDT [facility] BLOOD UA 3+(A) Negative 10/12/2024 6:20 AM CDT [facility] WBC UA >100(A) 0 - 2 /hpf 10/12/2024 6:20 AM CDT [facility] RBC UA 0-2 0 - 2 /hpf 10/12/2024 6:20 AM CDT [facility] BACTERIA UA 1+(A) Negative /hpf 10/12/2024 6:20 AM CDT [facility] EPITHELIAL CELLS, URINE 0-5 0 - 5 /hpf 10/12/2024 6:20 AM CDT [facility] WBC CLUMPS Present(A) Absent 10/12/2024 6:20 AM CDT [facility] Urine URINE SPECIMEN OBTAINED BY CLEAN CATCH PROCEDURE / Unknown Collection / Unknown 10/12/2024 1:30 AM CDT 10/12/2024 5:36 AM CDT Narrative [facility] - 10/12/2024 6:20 AM CDT Based on results, a urine culture has been reflexed. us External Provider [facility] URINE ORDERABLES Final Res ult [facility] CLIA # [id number] [address] [place] [address] documented in this encounter Visit Diagnoses Not on filedocumented in this encounter Additional Health Concerns Infection Onset Date Last Indicated Resolved Time R/O GI Pathogen 10/27/2024 10/27/2024 10/27/2024 1 :05 PM CDT C Diff 10/27/2024 10/27/2024 documented as of this encounter Care Teams Mothers Helper Relationship Specialty Start Date End Date Non-Staff, Physician NO ADDRESS ON FILE PCP - General 08/30/13 documented as of this encounter
--- OUTSIDE RECORDS SUMMARY | 2024-11-14 23:04 | XMS_ITS | Encounter Summary ---
Author Organization [employer] Address 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 Gender Identity Not on file Sexual Orientation Not on file documented as of this encounter Plan of Treatment Not on file documented as of this encounter Procedures Procedure Name Priority Date/Time Associated Diagnosis Comments CBC WITH DIFFERENTIAL Routine 09/29/2024 4:20 AM CDT COMPREHENSIVE METABOLIC PANEL Routine 09/29/2024 4:20 AM CDT documented in this encounter Results * (ABNORMAL) CBC WITH DIFFERENTIAL (09/29/2024 4:20 AM CDT) [facility] WBC 7.4 4.8 - 10.8 K/uL 09/29/2024 5:57 AM CDT [facility] RBC 3.39(L) 4.20 - 5.40 M/uL 09/29/2024 5:57 AM CDT [facility] HEMOGLOBIN 9.4(L) 12.0 - 16.0 g/dL 09/29/2024 5:57 AM CDT [facility] HEMATOCRIT 30.5(L) 36.0 - 46.0 % 09/29/2024 5:57 AM CDT [facility] MCV 90.0 84.0 - 103.0 fL 09/29/2024 5[facility] [facility] MCH 27.7 27.0 - 34.0 pg 09/29/2024 5:57 AM CDT [facility] MCHC 30.8 30.0 - 35.0 g/dL 09/29/2024 5:[address] [facility] PLATELETS 417 140 - 440 K/uL 09/29/2024 5:57 AM [facility] MPV 10.3 8.9 - 12.8 fL 09/29/2024 5:57 AM [facility] RDW 18.8(H) 11.0 - 14.5 % 09/29/2024 5:57 AM [facility] RDW-STDEV 61.7(H) 37.0 - 54.0 fL 09/29/2024 5:57 AM CDT [facility] NEUTROPHILS 56 42 - 75 % 09/29/2024 5:57 AM CDT [facility] LYMPHOCYTES 27 24 - 44 % 09/29/2024 5:[address] [facility] MONOCYTES 10 2 - 10 % 09/29/2024 5:57 AM CDT [facility] EOSINOPHILS 6 0 - 7 % 09/29/2024 5:57 AM CDT [facility] BASOPHILS 1 0 - 1 % 09/29/2024 5:57 AM CDT [facility] IMMATURE GRANULOCYTES 0 0 - 2 % 09/29/2024 5:57 AM CDT [facility] NEUTROPHIL ABSOLUTE 4.17 2.00 - 8.00 K/uL 09/29/2024 5:57 AM CDT [facility] LYMPHOCYTE ABSOLUTE 1.97 1.20 - 4.00 K/uL 09/29/2024 5:57 AM CDT [facility] MONOCYTE ABSOLUTE 0.71(H) 0.10 - 0.60 K/uL 09/29/2024 5:57 AM CDT [facility] EOSINOPHIL ABSOLUTE 0.45 0.00 - 0.70 K/uL 09/29/2024 5:57 AM CDT [facility] BASOPHILS ABSOLUTE 0.06 0.00 - 0.20 K/uL 09/29/2024 5:57 AM CDT [facility] IMMATURE GRANULOCYTES ABSOLUTE 0.03 0.00 - 0.10 K/uL 09/29/2024 5:57 AM CDT [facility] SMEAR REVIEWED: NA - Not Applicable 09/29/2024 5:57 AM [facility] Blood Collection / Unknown 09/29/2024 4:20 AM CDT 09/29/2024 5:50 AM CDT Harry Reyes DO HEMATOLOGY ORDERABLES Final Result [facility] CLIA # [id number] [facility] [address] [place] [address] * (ABNORMAL) COMPREHENSIVE METABOLIC PANEL (09/29/2024 4:20 AM CDT) SODIUM 136 136 - 145 mmol/L 09/29/2024 6:22 AM CDT [facility] POTASSIUM 3.8 3.5 - 5.1 mmol/L 09/29/2024 6:22 AM CDT [facility] CHLORIDE 99 98 - 107 mmol/L 09/29/2024 6:22 AM [facility] CO2 24 22 - 29 mmol/L 09/29/2024 6:22 AM [facility] CALCIUM 8.5(L) 8.8 - 10.2 mg/dL 09/29/2024 6:22 AM [facility] BUN 16 8 - 23 mg/dL 09/29/2024 6:22 AM [facility] CREATININE 0.41(L) 0.51 - 0.95 mg/dL 09/29/2024 6:22 AM [facility] Comment:The GFR result is no t clinically significant on patients <18 or >70 years of age. GLUCOSE 178(H) 74 - 99 mg/dL 09/29/2024 6:22 AM [facility] TOTAL PROTEIN 6.2(L) 6.4 - 8.3 g/dL 09/29/2024 6:22 AM [facility] ALBUMIN 3.0(L) 3.5 - 5.2 g/dL 09/29/2024 6:22 AM [facility] BILIRUBIN TOTAL 0.2 0.0 - 1.0 mg/dL 09/29/2024 6:22 AM [facility] ALKALINE PHOSPHATASE 71 35 - 104 U/L 09/29/2024 6:22 AM [facility] AST 32 10 - 35 U/L 09/29/2024 6:22 AM [facility] ALT 34 <=35 U/L 09/29/2024 6:22 AM [facility] GFR >60 mL/min/1. 73 sq meter 09/29/2024 6:22 AM [facility] Comment:eGFR calculated with 2020 CKD-EPI equation. Vegetarian diet, extremely high or low muscle mass, and may affect results. Cystatin C with Glomerular Filtration Rate is a suitable alternative for these patients. ANION GAP 13 9 - 20 mmol/L 09/29/2024 6:22 AM [facility] Blood Collection / Unknown 09/29/2024 4:20 AM CDT 09/29/2024 5:50 AM CDT Harry Reyes DO CHEMISTRY ORDERABLES Final R esult [facility] # [id number] [address] [place] [address] documented in this encounter Visit Diagnoses Not on filedocumented in this encounter Additional Health Concerns Infection Onset Date Last Indicated Resolved Time R/O GI Pathogen 10/27/2024 10/27/2024 10/27/2024 1 :05 PM CDT C Diff 10/27/2024 10/27/2024 documented as of this encounter Care Teams Finance Insurance Manager Relationship Specialty Start Date End Date Non-Staff, Physician NO ADDRESS ON FILE PCP - General 08/30/13 documented as of this encounter
--- OUTSIDE RECORDS SUMMARY | 2024-11-14 23:04 | XMS_ITS | Encounter Summary ---
Author Organization [employer] Address 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 Gender Identity Not on file Sexual Orientation Not on file documented as of this encounter Plan of Treatment Not on file documented as of this encounter Procedures Procedure Name Priority Date/Time Associated Diagnosis Comments CBC WITH DIFFERENTIAL Routine 10/17/2024 3:30 AM CDT C-REACTIVE PROTEIN Routine 10/17/2024 3: 30 AM CDT COMPREHENSIVE METABOLIC PANEL Routine 10/17/2024 3:30 AM CDT documented in this encounter Results * (ABNORMAL) C-REACTIVE PROTEIN (10/17/2024 3:30 AM CDT) [facility] CRP 7.6(H) 0.0 - 5.0 mg/L 10/17/2024 7:02 AM CDT [facility] Blood Collection / Unknown 10/17/2024 3:30 AM CDT 10/17/2024 5:54 AM CDT us External Provider [facility] CHEMISTRY ORDERABLES Final Result [facility] CLIA # [id number] [address] [place] [place] [address] * (ABNORMAL) CBC WITH DIFFERENTIAL (10/17/2024 3:30 AM CDT) [facility] WBC 6.8 4.8 - 10.8 K/uL 10/17/2024 6:07 AM CDT [facility] RBC 4.46 4.20 - 5.40 M/uL 10/17/2024 6:07 AM CDT [facility] HEMOGLOBIN 12.1 12.0 - 16.0 g/dL 10/17/2024 6:07 AM CDT [facility] HEMATOCRIT 37.6 36.0 - 46.0 % 10/17/2024 6:07 AM CDT [facility] MCV 84.3 84.0 - 103.0 fL 10/17/2024 6:07 AM CDT [facility] MCH 27.1 27.0 - 34.0 pg 10/17/2024 6:07 AM CDT [facility] MCHC 32.2 30.0 - 35.0 g/dL 10/17/2024 6:07 AM CDT [facility] PLATELETS 442(H) 140 - 440 K/uL 10/17/2024 6:07 AM CDT [facility] MPV 10.3 8.9 - 12.8 fL 10/17/2024 6:07 AM [facility] [employer] [facility] RDW 15.8(H) 11.0 - 14.5 % 10/17/2024 6:07 AM [facility] RDW-STDEV 49.0 37.0 - 54.0 fL 10/17/2024 6:07 AM [facility] NEUTROPHILS 41(L) 42 - 75 % 10/17/2024 6:07 AM [facility] LYMPHOCYTES 39 24 - 44 % 10/17/2024 6:07 AM [facility] MONOCYTES 12(H) 2 - 10 % 10/17/2024 6:07 AM [facility] [employer] [facility] EOSINOPHILS 7 0 - 7 % 10/17/2024 6:07 AM [facility] [employer] [facility] BASOPHILS 1 0 - 1 % 10/17/2024 6:07 AM [facility] IMMATURE GRANULOCYTES 0 0 - 2 % 10/17/2024 6:07 AM [facility] NEUTROPHIL ABSOLUTE 2.81 2.00 - 8.00 K/uL 10/17/2024 6:07 AM [facility] LYMPHOCYTE ABSOLUTE 2.61 1.20 - 4.00 K/uL 10/17/2024 6:07 AM [facility] MONOCYTE ABSOLUTE 0.79(H) 0.10 - 0.60 K/uL 10/17/2024 6:07 AM [facility] EOSINOPHIL ABSOLUTE 0.46 0.00 - 0.70 K/uL 10/17/2024 6:07 AM [facility] BASOPHILS ABSOLUTE 0.08 0.00 - 0.20 K/uL 10/17/2024 6:07 AM [facility] IMMATURE GRANULOCYTES ABSOLUTE 0.03 0.00 - 0.10 K/uL 10/17/2024 6:07 AM [facility] SMEAR REVIEWED: NA - Not Applicable 10/17/2024 6:07 AM [facility] Blood Collection / Unknown 10/17/2024 3:30 AM CDT 10/17/2024 5:54 AM CDT us External Provider [facility] HEMATOLOGY ORDERABLES Christiana mary Result [facility] CLKRISTA # [id number] [address] [address] [place] [address] * (ABNORMAL) COMPREHENSIVE METABOLIC PANEL (10/17/2024 3:30 AM CDT) SODIUM 134(L) 136 - 145 mmol/L 10/17/2024 7:02 AM T [facility] POTASSIUM 3.8 3.5 - 5.1 mmol/L 10/17/2024 7:02 AM T [facility] CHLORIDE 99 98 - 107 mmol/L 10/17/2024 7:02 AM T [facility] CO2 17(L) 22 - 29 mmol/L 10/17/2024 7:02 AM T [facility] CALCIUM 9.6 8.8 - 10.2 mg/dL 10/17/2024 7:02 AM T [facility] BUN 8 8 - 23 mg/dL 10/17/2024 7:02 AM T [facility] CREATININE 0.71 0.51 - 0.95 mg/dL 10/17/2024 7:02 AM T [facility] Comment:The GFR result is no t clinically significant on patients <18 or >70 years of age. GLUCOSE 103(H) 74 - 99 mg/dL 10/17/2024 7:02 AM T [facility] TOTAL PROTEIN 6.7 6.4 - 8.3 g/dL 10/17/2024 7:02 AM T [facility] ALBUMIN 3.3(L) 3.5 - 5.2 g/dL 10/17/2024 7:02 AM [facility] BILIRUBIN TOTAL 0.2 0.0 - 1.0 mg/dL 10/17/2024 7:02 AM CDT [facility] ALKALINE PHOSPHATASE 70 35 - 104 U/L 10/17/2024 7:02 AM [facility] AST 16 10 - 35 U/L 10/17/2024 7:02 AM T [facility] ALT 16 <=35 U/L 10/17/2024 7:02 AM T [facility] GFR >60 mL/min/1.7 3 sq meter 10/17/2024 7:02 AM [facility] Comment:eGFR calculated with 2020 CKD-EPI equation. Vegetarian diet, extremely high or low muscle mass, and may affect results. Cystatin C with Glomerular Filtration Rate is a suitable alternative for these patients. ANION GAP 18 9 - 20 mmol/L 10/17/2024 7:02 AM [facility] Blood Collection / Unknown 10/17/2024 3:30 AM CDT 10/17/2024 5:54 AM CDT us External Provider [facility] CHEMISTRY ORDERABLES Final Result Performing Organization Address City/State/[facility] Co de Phone Number [facility] CLIA # [id number] [address] [place] [address] documented in this encounter Visit Diagnoses Not on filedocumented in this encounter Additional Health Concerns Infection Onset Date Last Indicated Resolved Time R/O GI Pathogen 10/27/2024 10/27/2024 10/27/2024 1 :05 PM CDT C Diff 10/27/2024 10/27/2024 documented as of this encounter Care Teams Call Center Receptionist Relationship Specialty Start Date End Date Non-Staff, Physician NO ADDRESS ON FILE PCP - General 08/30/13 documented as of this encounter
--- OUTSIDE RECORDS SUMMARY | 2024-11-14 23:04 | XMS_ITS | Encounter Summary ---
Author Organization [employer] Address 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 Gender Identity Not on file Sexual Orientation Not on file documented as of this encounter Plan of Treatment Not on file documented as of this encounter Procedures Procedure Name Priority Date/Time Associated Diagnosis Comments PHOSPHORUS Routine 10/06/2024 5:22 PM CDT MAGNESIUM LEVEL Routine 10/06/2024 5:22 PM CDT documented in this encounter Results * PHOSPHORUS (10/06/2024 5:22 PM CDT) PHOSPHORUS 3.5 2.5 - 4.5 mg/dL 10/06/2024 6:34 PM CDT [facility] Blood Collection / Unknown 10/06/2024 5:22 PM CDT 10/06/2024 6:11 PM CDT External Provider [facility] CHEMISTRY ORDERABLES Final Result [facility] CLIA # [id number] [address] [facility] [place], [place] [address] * MAGNESIUM LEVEL (10/06/2024 5:22 PM CDT) MAGNESIUM 1.9 1.6 - 2.4 mg/dL 10/06/2024 6:34 PM CDT [facility] Blood Collection / Unknown 10/06/2024 5:22 PM CDT 10/06/2024 6:11 PM CDT External Provider [facility] CHEMISTRY ORDERABLES Final Result [facility] CLIA # [id number] [address] [address] documented in this encounter Visit Diagnoses Not on filedocumented in this encounter Additional Health Concerns Infection Onset Date Last Indicated Resolved Time R/O GI Pathogen 10/27/2024 10/27/2024 10/27/2024 1 :05 PM CDT C Diff 10/27/2024 10/27/2024 documented as of this encounter Care Teams Architecture Manager Relationship Specialty Start Date End Date Non-Staff, Physician NO ADDRESS ON FILE PCP - General 08/30/13 documented as of this encounter
--- OUTSIDE RECORDS SUMMARY | 2024-11-14 23:04 | XMS_ITS | Encounter Summary ---
Author Organization [employer] Address 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 Gender Identity Not on file Sexual Orientation Not on file documented as of this encounter Plan of Treatment Not on file documented as of this encounter Procedures Procedure Name Priority Date/Time Associated Diagnosis Comments CBC WITH DIFFERENTIAL Routine 10/20/2024 3:35 AM CDT COMPREHENSIVE METABOLIC PANEL Routine 10/20/2024 3:35 AM CDT documented in this encounter Results * (ABNORMAL) COMPREHENSIVE METABOLIC PANEL (10/20/2024 3:35 AM CDT) Pathologist [facility] SODIUM 138 136 - 145 mmol/L 10/20/2024 6:46 AM [facility] POTASSIUM 3.3(L) 3.5 - 5.1 mmol/L 10/20/2024 6:46 AM [facility] CHLORIDE 108(H) 98 - 107 mmol/L 10/20/2024 6:46 AM [facility] CO2 17(L) 22 - 29 mmol/L 10/20/2024 6:46 AM [facility] CALCIUM 8.2(L) 8.8 - 10.2 mg/dL 10/20/2024 6:46 AM [facility] BUN 3(L) 8 - 23 mg/dL 10/20/2024 6:46 AM [facility] CREATININE 0.50(L) 0.51 - 0.95 mg/dL 10/20/2024 6:46 AM [facility] Comment:The GFR result is no t clinically significant on patients <18 or >70 years of age. GLUCOSE 115(H) 74 - 99 mg/dL 10/20/2024 6:46 AM [facility] TOTAL PROTEIN 5.5(L) 6.4 - 8.3 g/dL 10/20/2024 6:46 AM [facility] ALBUMIN 2.9(L) 3.5 - 5.2 g/dL 10/20/2024 6:46 AM [facility] BILIRUBIN TOTAL 0.2 0.0 - 1.0 mg/dL 10/20/2024 6:46 AM [facility] ALKALINE PHOSPHATASE 58 35 - 104 U/L 10/20/2024 6:46 AM [facility] AST 16 10 - 35 U/L 10/20/2024 6:46 AM [facility] ALT 13 <=35 U/L 10/20/2024 6:46 AM [facility] GFR >60 mL/min/1. 73 sq meter 10/20/2024 6:[address] [facility] Comment:eGFR calculated with 2020 CKD-EPI equation. Vegetarian diet, extremely high or low muscle mass, and may affect results. Cystatin C with Glomerular Filtration Rate is a suitable alternative for these patients. ANION GAP 13 9 - 20 mmol/L 10/20/2024 6:[address] [facility] Blood Collection / Unknown 10/20/2024 3:35 AM CDT 10/20/2024 6:09 AM CDT us External Provider [facility] CHEMISTRY ORDERABLES Final Result [facility] CLIA # [id number] [address] [place] [id number] * (ABNORMAL) CBC WITH DIFFERENTIAL (10/20/2024 3:35 AM CDT) [facility] WBC 4.7(L) 4.8 - 10.8 K/uL 10/20/2024 6:[address] [facility] RBC 3.82(L) 4.20 - 5.40 M/uL 10/20/2024 6:[address] [facility] HEMOGLOBIN 10.4(L) 12.0 - 16.0 g/dL 10/20/2024 6:17 AM [facility] HEMATOCRIT 32.9(L) 36.0 - 46.0 % 10/20/2024 6:[address] [facility] MCV 86.1 84.0 - 103.0 fL 10/20/2024 6:[address] [facility] MCH 27.2 27.0 - 34.0 pg 10/20/2024 6:[address] [facility] MCHC 31.6 30.0 - 35.0 g/dL 10/20/2024 6:[address] [facility] PLATELETS 301 140 - 440 K/uL 10/20/2024 6:[address] [facility] MPV 10.2 8.9 - 12.8 fL 10/20/2024 6:17 AM [facility] Mochila [facility] RDW 15.8(H) 11.0 - 14.5 % 10/20/2024 6:17 AM [facility] RDW-STDEV 49.5 37.0 - 54.0 fL 10/20/2024 6:17 AM [facility] NEUTROPHILS 43 42 - 75 % 10/20/2024 6:17 AM [facility] LYMPHOCYTES 39 24 - 44 % 10/20/2024 6:17 AM [facility] [place] [facility] MONOCYTES 11(H) 2 - 10 % 10/20/2024 6:17 AM [facility] [place] [facility] EOSINOPHILS 6 0 - 7 % 10/20/2024 6:17 AM [facility] BASOPHILS 1 0 - 1 % 10/20/2024 6:17 AM [facility] IMMATURE GRANULOCYTES 0 0 - 2 % 10/20/2024 6:17 AM [facility] [place] [facility] NEUTROPHIL ABSOLUTE 2.01 2.00 - 8.00 K/uL 10/20/2024 6:17 AM [facility] LYMPHOCYTE ABSOLUTE 1.85 1.20 - 4.00 K/uL 10/20/2024 6:17 AM [facility] MONOCYTE ABSOLUTE 0.52 0.10 - 0.60 K/uL 10/20/2024 6:17 AM [facility] [place] [facility] EOSINOPHIL ABSOLUTE 0.28 0.00 - 0.70 K/uL 10/20/2024 6:17 AM [facility] [place] [facility] BASOPHILS ABSOLUTE 0.06 0.00 - 0.20 K/uL 10/20/2024 6:17 AM [facility] IMMATURE GRANULOCYTES ABSOLUTE 0.01 0.00 - 0.10 K/uL 10/20/2024 6:17 AM [facility] [place] [facility] SMEAR REVIEWED: NA - Not Applicable 10/20/2024 6:17 AM [facility] M[place]ila [facility] Blood Collection / Unknown 10/20/2024 3:35 AM CDT 10/20/2024 6:09 AM CDT us External Provider [facility] HEMATOLOGY ORDERABLES Christiana hernandez Result Performing Organization Address City/State/[facility] Co de Phone Number [facility] CLIA # [id number] [address] [address] documented in this encounter Visit Diagnoses Not on filedocumented in this encounter Additional Health Concerns Infection Onset Date Last Indicated Resolved Time R/O GI Pathogen 10/27/2024 10/27/2024 10/27/2024 1 :05 PM CDT C Diff 10/27/2024 10/27/2024 documented as of this encounter Care Teams Dramatic Director Relationship Specialty Start Date End Date Non-Staff, Physician NO ADDRESS ON FILE PCP - General 08/30/13 documented as of this encounter
--- OUTSIDE RECORDS SUMMARY | 2024-11-14 23:04 | XMS_ITS | Encounter Summary ---
Author Organization [facility] Address [address] [place] [address] Care Team Providers Care Director Biology Name Role Phone Non-Staff, Physician Primary Care Provider Unava ilable Encounter Details Date Type Department Care Team (Latest Contact Info) Description 05/26/2005 Outpatient Historical [facility] Family Medicine- [place] [address] [place] [address] Wanda Castro MD NO ADDRESS ON FILE MALAISE AND FATIGUE NEC (Primary Dx); HYPERTENSION NOS Social History Tobacco Use Types Packs/Day Years Used Date Smoking Tobacco: Never Assessed Comments Unknown Sex and Gender Information Value Date Recorded Sex Assigned at Not on file 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
--- OUTSIDE RECORDS SUMMARY | 2024-11-14 23:04 | XMS_ITS | Encounter Summary ---
Author Organization [facility] Address [address] [place] [address] Care Team Providers Care Airport Operations Duty Manager Name Role Phone Non-Staff, Physician Primary Care Provider Unava ilable Reason for Referral * Outpatient Services (Routine) - Closed Specialty Diagnoses / Procedures Referred By Rubens brooks Referred To Contact Diagnoses Belchings Intractable hiccups Procedures CT CHEST ABDOMEN PELVIS W CONT Nancy Sanchez MD NO ADDRESS ON FILE Referral ID Status Reason Start Date Expiration Date Visits Re quested Visits Authorized [id number] Closed 07/20/2012 08/20/2013 1 1 Encounter Details Date Type Department Care Team (Latest Contact Info) Description 07/20/2012 Ancillary Orders [facility] [address] [place] [address] Nancy Sanchez MD NO ADDRESS ON FILE Belchings (Primary Dx); Intractable hiccups Social History Tobacco Use Types Packs/Day Years Used Date Smoking Tobacco: Never Smokeless Tobacco: Never Alcohol Use Standard Drinks/Week Comments No 0 (1 standard drink = 0.6 oz pur e alcohol) Comments No Sex and Gender Information Value Date Recorded Sex Assigned at Not on file 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 Exam: CT CHEST ABDOMEN PELVIS W CONT Date/Time of Exam: Jul 20, 2012 03:50:00 PM Reason For Exam: Flatulence, eructation, and gas pain. Axial imaging of the chest, abdomen and pelvis was performed following administration of contrast: Contrast dose is 100 mL of 240 Optiray. Oral contrast was given. No rectal contrast was administered. There are no comparisons. There is no pneumothorax. Both lungs are clear. No pathologic axillary, mediastinal or hilar massing or adenopathy is noted. No significant abnormality of the thoracic aorta is identified. The pulmonary arteries are unremarkable. There is a small hiatal hernia. There is a tiny low-density area in the left lobe of the liver suspicious for a small cyst. The liver is otherwise unremarkable. The spleen, pancreas and bile ducts are unremarkable. The gallbladder is surgically absent. The adrenal glands and kidneys are unremarkable. There are no abnormally dilated loops of bowel. The appendix is identified in the right lower quadrant. There is contrast in the appendix. No abnormality of the appendix is noted. There are multiple colonic diverticula. No inflammatory change is noted. No free air or free fluid is appreciated. No pathologic mesenteric, retroperitoneal or pelvic adenopathy is noted. The uterus is either atrophic or surgically absent. The urinary bladder is unremarkable. There is mild multilevel degenerative change of the thoracic spine. There is there is slight anterolisthesis of L4 on L5. No acute bony abnormality is noted. Impression: 1. Small hiatal hernia. 2. Probable tiny cyst in the left lobe of the liver. 3. Prior cholecystectomy. 4. Diverticulosis. No inflammatory change noted. 5. Slight anterolisthesis of L4 and L5. Narrative Procedure Note Iliana Ratliff MD - 07/20/2012 IMPRESSION IMPRESSION: See report below. Exam: CT CHEST ABDOMEN PELVIS W CONT Date/Time of Exam: Jul 20, 2012 03:50:00 PM Reason For Exam: Flatulence, eructation, and gas pain. Axial imaging of the chest, abdomen and pelvis was performed following administration of contrast: Contrast dose is 100 mL of 240 Optiray. Oral contrast was given. No rectal contrast was administered. There are no comparisons. There is no pneumothorax. Both lungs are clear. No pathologic axillary, mediastinal or hilar massing or adenopathy is noted. No significant abnormality of the thoracic aorta is identified. The pulmonary arteries are unremarkable. There is a small hiatal hernia. There is a tiny low-density area in the left lobe of the liver suspicious for a small cyst. The liver is otherwise unremarkable. The spleen, pancreas and bile ducts are unremarkable. The gallbladder is surgically absent. The adrenal glands and kidneys are unremarkable. There are no abnormally dilated loops of bowel. The appendix is identified in the right lower quadrant. There is contrast in the appendix. No abnormality of the appendix is noted. There are multiple colonic diverticula. No inflammatory change is noted. No free air or free fluid is appreciated. No pathologic mesenteric, retroperitoneal or pelvic adenopathy is noted. The uterus is either atrophic or surgically absent. The urinary bladder is unremarkable. There is mild multilevel degenerative change of the thoracic spine. There is there is slight anterolisthesis of L4 on L5. No acute bony abnormality is noted. Impression: 1. Small hiatal hernia. 2. Probable tiny cyst in the left lobe of the liver. 3. Prior cholecystectomy. 4. Diverticulosis. No inflammatory change noted. 5. Slight anterolisthesis of L4 and L5. Nancy Sanchez MD CT ORDERABLES Final Result documented in this encounter Visit Diagnoses Diagnosis Belchings Flatulence, eructation, and gas pain Intractable hiccups Hiccough Belchings- Primary Flatulence, eructation, and gas pain Intractable hiccups Hiccough documented in this encounter Care Teams Airport Operations Duty Manager Relationship Specialty Start Date End Date Non-Staff, Physician NO ADDRESS ON FILE PCP - General 08/30/13 documented as of this encounter
--- OUTSIDE RECORDS SUMMARY | 2024-11-14 23:04 | XMS_ITS | Encounter Summary ---
Author Organization [employer] Address 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 Increased 09/25/2024 9:34 AM CDT [facility] ANISOCYTOSIS 3+ /hpf 09/25/2024 9:34 AM CDT [facility] POLYCHROMASIA 1+ /hpf 09/25/2024 9:34 AM CDT [facility] Blood Collection / Unknown 09/25/2024 3:00 AM CDT 09/25/2024 8:55 AM CDT us External Provider [facility] HEMATOLOGY ORDERABLES COM Final Result [facility] CLIA # [id number] [address] [address] * (ABNORMAL) CBC WITH DIFFERENTIAL (09/25/2024 3:00 AM CDT) [facility] WBC 8.3 4.8 - 10.8 K/uL 09/25/2024 9:34 AM CDT [facility] RBC 3.07(L) 4.20 - 5.40 M/uL 09/25/2024 9:34 AM CDT [facility] HEMOGLOBIN 8.7(L) 12.0 - 16.0 g/dL 09/25/2024 9:34 AM T [facility] HEMATOCRIT 28.5(L) 36.0 - 46.0 % 09/25/2024 9:34 AM CDT [facility] MCV 92.8 84.0 - 103.0 fL 09/25/2024 9:34 AM CDT [facility] MCH 28.3 27.0 - 34.0 pg 09/25/2024 9:34 AM CDT [facility] MCHC 30.5 30.0 - 35.0 g/dL 09/25/2024 9:34 AM CDT [facility] PLATELETS 483(H) 140 - 440 K/uL 09/25/2024 9:34 AM [facility] MPV 10.6 8.9 - 12.8 fL 09/25/2024 9:34 AM [facility] RDW 20.1(H) 11.0 - 14.5 % 09/25/2024 9:34 AM [facility] RDW-STDEV 68.3(H) 37.0 - 54.0 fL 09/25/2024 9:34 AM [facility] NEUTROPHILS 62 42 - 75 % 09/25/2024 9:34 AM [facility] LYMPHOCYTES 22(L) 24 - 44 % 09/25/2024 9:34 AM [facility] MONOCYTES 9 2 - 10 % 09/25/2024 9:34 AM [facility] EOSINOPHILS 5 0 - 7 % 09/25/2024 9:34 AM [facility] BASOPHILS 1 0 - 1 % 09/25/2024 9:34 AM [facility] IMMATURE GRANULOCYTES 1 0 - 2 % 09/25/2024 9:34 AM [facility] NEUTROPHIL ABSOLUTE 5.18 2.00 - 8.00 K/uL 09/25/2024 9:34 AM [facility] LYMPHOCYTE ABSOLUTE 1.84 1.20 - 4.00 K/uL 09/25/2024 9:34 AM [facility] MONOCYTE ABSOLUTE 0.78(H) 0.10 - 0.60 K/uL 09/25/2024 9:34 AM [facility] EOSINOPHIL ABSOLUTE 0.39 0.00 - 0.70 K/uL 09/25/2024 9:34 AM [facility] BASOPHILS ABSOLUTE 0.06 0.00 - 0.20 K/uL 09/25/2024 9:34 AM [facility] IMMATURE GRANULOCYTES ABSOLUTE 0.07 0.00 - 0.10 K/uL 09/25/2024 9:34 AM [facility] SMEAR REVIEWED: SR - See Smear Review on Manual Diff. 09/25/2024 9:34 AM [facility] Blood Collection / Unknown 09/25/2024 3:00 AM CDT 09/25/2024 8:55 AM CDT us External Provider [facility] HEMATOLOGY ORDERABLES Christiana l Result [facility] CLIA # [id number] [facility] [address] [address] documented in this encounter Visit Diagnoses Not on filedocumented in this encounter Additional Health Concerns Infection Onset Date Last Indicated Resolved Time R/O GI Pathogen 10/27/2024 10/27/2024 10/27/2024 1 :05 PM CDT C Diff 10/27/2024 10/27/2024 documented as of this encounter Care Teams Shipping Specialist Relationship Specialty Start Date End Date Non-Staff, Physician NO ADDRESS ON FILE PCP - General 08/30/13 documented as of this encounter
--- OUTSIDE RECORDS SUMMARY | 2024-11-14 23:04 | XMS_ITS | Encounter Summary ---
Author Organization [email or web address] Address 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 Gender Identity Not on file Sexual Orientation Not on file documented as of this encounter Plan of Treatment Not on file documented as of this encounter Procedures Procedure Name Priority Date/Time Associated Diagnosis Comments CBC WITH DIFFERENTIAL Routine 10/10/2024 4:28 AM CDT C-REACTIVE PROTEIN Routine 10/10/2024 4: 28 AM CDT COMPREHENSIVE METABOLIC PANEL Routine 10/10/2024 4:28 AM CDT documented in this encounter Results * (ABNORMAL) C-REACTIVE PROTEIN (10/10/2024 4:28 AM CDT) [facility] CRP 48.2(H) 0.0 - 5.0 mg/L 10/10/2024 6:08 AM CDT [facility] Blood Collection / Unknown 10/10/2024 4:28 AM CDT 10/10/2024 5:32 AM CDT us External Provider [facility] CHEMISTRY ORDERABLES Final Result [facility] CLIA # [id number] [address] [place] [address] * (ABNORMAL) CBC WITH DIFFERENTIAL (10/10/2024 4:28 AM CDT) [facility] WBC 7.5 4.8 - 10.8 K/uL 10/10/2024 5:34 AM CDT [facility] RBC 3.81(L) 4.20 - 5.40 M/uL 10/10/2024 5:34 AM CDT [facility] HEMOGLOBIN 10.6(L) 12.0 - 16.0 g/dL 10/10/2024 5:34 AM CDT [facility] HEMATOCRIT 34.1(L) 36.0 - 46.0 % 10/10/2024 5:34 AM CDT [facility] MCV 89.5 84.0 - 103.0 fL 10/10/2024 5:34 AM CDT [facility] MCH 27.8 27.0 - 34.0 pg 10/10/2024 5:34 AM CDT [facility] MCHC 31.1 30.0 - 35.0 g/dL 10/10/2024 5:34 AM CDT [facility] PLATELETS 381 140 - 440 K/uL 10/10/2024 5:34 AM CDT [facility] MPV 10.1 8.9 - 12.8 fL 10/10/2024 5:34 AM [facility] [employer] [facility] RDW 16.1(H) 11.0 - 14.5 % 10/10/2024 5:34 AM [facility] [employer] [facility] RDW-STDEV 52.8 37.0 - 54.0 fL 10/10/2024 5:34 AM [facility] [employer] [facility] NEUTROPHILS 53 42 - 75 % 10/10/2024 5:34 AM [facility] [employer] [facility] LYMPHOCYTES 29 24 - 44 % 10/10/2024 5:34 AM [facility] [employer] [facility] MONOCYTES 11(H) 2 - 10 % 10/10/2024 5:34 AM [facility] [employer] [facility] EOSINOPHILS 6 0 - 7 % 10/10/2024 5:34 AM [facility] [employer] [facility] BASOPHILS 1 0 - 1 % 10/10/2024 5:34 AM [facility] IMMATURE GRANULOCYTES 1 0 - 2 % 10/10/2024 5:34 AM [facility] NEUTROPHIL ABSOLUTE 3.94 2.00 - 8.00 K/uL 10/10/2024 5:34 AM [facility] LYMPHOCYTE ABSOLUTE 2.13 1.20 - 4.00 K/uL 10/10/2024 5:34 AM [facility] MONOCYTE ABSOLUTE 0.84(H) 0.10 - 0.60 K/uL 10/10/2024 5:34 AM [facility] [employer] [facility] EOSINOPHIL ABSOLUTE 0.43 0.00 - 0.70 K/uL 10/10/2024 5:34 AM [facility] [employer] [facility] BASOPHILS ABSOLUTE 0.05 0.00 - 0.20 K/uL 10/10/2024 5:34 AM [facility] IMMATURE GRANULOCYTES ABSOLUTE 0.06 0.00 - 0.10 K/uL 10/10/2024 5:34 AM [facility] SMEAR REVIEWED: NA - Not Applicable 10/10/2024 5:34 AM [facility] [employer] [facility] Blood Collection / Unknown 10/10/2024 4:28 AM CDT 10/10/2024 5:30 AM CDT us External Provider [facility] HEMATOLOGY ORDERABLES Christiana mary Result [facility] DAVID # [id number] [address] [address] [place] [address] * (ABNORMAL) COMPREHENSIVE METABOLIC PANEL (10/10/2024 4:28 AM CDT) Pathologist [facility] SODIUM 137 136 - 145 mmol/L 10/10/2024 6:08 AM T [facility] POTASSIUM 3.9 3.5 - 5.1 mmol/L 10/10/2024 6:08 AM T [facility] CHLORIDE 100 98 - 107 mmol/L 10/10/2024 6:08 AM T [facility] CO2 25 22 - 29 mmol/L 10/10/2024 6:08 AM T [facility] CALCIUM 8.9 8.8 - 10.2 mg/dL 10/10/2024 6:08 AM T [facility] BUN 10 8 - 23 mg/dL 10/10/2024 6:08 AM T [facility] CREATININE 0.48(L) 0.51 - 0.95 mg/dL 10/10/2024 6:08 AM T [facility] Comment:The GFR result is no t clinically significant on patients <18 or >70 years of age. GLUCOSE 119(H) 74 - 99 mg/dL 10/10/2024 6:08 AM T [facility] TOTAL PROTEIN 6.3(L) 6.4 - 8.3 g/dL 10/10/2024 6:08 AM T [facility] ALBUMIN 2.7(L) 3.5 - 5.2 g/dL 10/10/2024 6:08 AM T [facility] BILIRUBIN TOTAL 0.2 0.0 - 1.0 mg/dL 10/10/2024 6:08 AM CDT [facility] ALKALINE PHOSPHATASE 72 35 - 104 U/L 10/10/2024 6:08 AM T [facility] AST 31 10 - 35 U/L 10/10/2024 6:08 AM T [facility] ALT 29 <=35 U/L 10/10/2024 6:08 AM T [facility] GFR >60 mL/min/1. 73 sq meter 10/10/2024 6:08 AM T [facility] Comment:eGFR calculated with 2020 CKD-EPI equation. Vegetarian diet, extremely high or low muscle mass, and may affect results. Cystatin C with Glomerular Filtration Rate is a suitable alternative for these patients. ANION GAP 12 9 - 20 mmol/L 10/10/2024 6:08 AM T [facility] Blood Collection / Unknown 10/10/2024 4:28 AM CDT 10/10/2024 5:32 AM CDT External Provider [facility] CHEMISTRY ORDERABLES Final Result Performing Organization Address City/State/[facility] Co de Phone Number [facility] CLIA # [id number] [address] [place] [address] documented in this encounter Visit Diagnoses Not on filedocumented in this encounter Additional Health Concerns Infection Onset Date Last Indicated Resolved Time R/O GI Pathogen 10/27/2024 10/27/2024 10/27/2024 1 :05 PM CDT C Diff 10/27/2024 10/27/2024 documented as of this encounter Care Teams Psychiatry Instructor Relationship Specialty Start Date End Date Non-Staff, Physician NO ADDRESS ON FILE PCP - General 08/30/13 documented as of this encounter
--- OUTSIDE RECORDS SUMMARY | 2024-11-14 23:04 | XMS_ITS | Encounter Summary ---
Author Organization [employer] Address 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 Gender Identity Not on file Sexual Orientation Not on file documented as of this encounter Plan of Treatment Not on file documented as of this encounter Procedures Procedure Name Priority Date/Time Associated Diagnosis Comments BASIC METABOLIC PANEL Routine 10/15/2024 3:30 AM CDT documented in this encounter Results * (ABNORMAL) BASIC METABOLIC PANEL (10/15/2024 3:30 AM CDT) SODIUM 134(L) 136 - 145 mmol/L 10/15/2024 6:18 AM T [facility] POTASSIUM 3.8 3.5 - 5.1 mmol/L 10/15/2024 6:18 AM T [facility] CHLORIDE 96(L) 98 - 107 mmol/L 10/15/2024 6:18 AM T [facility] CO2 19(L) 22 - 29 mmol/L 10/15/2024 6:18 AM T [facility] CALCIUM 9.2 8.8 - 10.2 mg/dL 10/15/2024 6:18 AM T [facility] BUN 5(L) 8 - 23 mg/dL 10/15/2024 6:18 AM T [facility] CREATININE 0.54 0.51 - 0.95 mg/dL 10/15/2024 6:18 AM [facility] Comment:The GFR result is no t clinically significant on patients <18 or >70 years of age. GLUCOSE 96 74 - 99 mg/dL 10/15/2024 6:18 AM [facility] GFR >60 mL/min/1.7 3 sq meter 10/15/2024 6:18 AM [facility] Comment:eGFR calculated with 2020 CKD-EPI equation. Vegetarian diet, extremely high or low muscle mass, and may affect results. Cystatin C with Glomerular Filtration Rate is a suitable alternative for these patients. ANION GAP 19 9 - 20 mmol/L 10/15/2024 6:18 AM T [facility] Blood Collection / Unknown 10/15/2024 3:30 AM CDT 10/15/2024 5:21 AM CDT Harry Reyes DO CHEMISTRY ORDERABLES Final R esult [facility] CLIA # [id number] [address] [place] [address] documented in this encounter Visit Diagnoses Not on filedocumented in this encounter Additional Health Concerns Infection Onset Date Last Indicated Resolved Time R/O GI Pathogen 10/27/2024 10/27/2024 10/27/2024 1 :05 PM CDT C Diff 10/27/2024 10/27/2024 documented as of this encounter Care Teams Order Control Clerk Blood Bank Relationship Specialty Start Date End Date Non-Staff, Physician NO ADDRESS ON FILE PCP - General 08/30/13 documented as of this encounter
--- OUTSIDE RECORDS SUMMARY | 2024-11-14 23:04 | XMS_ITS | Encounter Summary ---
Author Organization [employer] Address 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 Gender Identity Not on file Sexual Orientation Not on file documented as of this encounter Plan of Treatment Not on file documented as of this encounter Procedures Procedure Name Priority Date/Time Associated Diagnosis Comments DIFFERENTIAL, MANUAL Routine 09/23/2024 4:30 AM CDT CBC WITH DIFFERENTIAL Routine 09/23/2024 4:30 AM CDT T4 FREE Routine 09/23/2024 4:30 AM CDT MAGNESIUM LEVEL Routine 09/23/2024 4:30 AM CDT BASIC METABOLIC PANEL Routine 09/23/2024 4:30 AM CDT documented in this encounter Results * T4 FREE (09/23/2024 4:30 AM CDT) T4 FREE 1.39 0.81 - 1.70 ng/dL 09/23/2024 1:06 PM CDT [facility] Blood Collection / Unknown 09/23/2024 4:30 AM CDT 09/23/2024 5:47 AM CDT External Provider [facility] CHEMISTRY ORDERABLES Final Result Performing Organization Address [facility] Co de Phone Number [facility] CLIA # [id number] [address] [place] [address] * MANUAL DIFFERENTIAL (09/23/2024 4:30 AM CDT) Pathologist [facility] PLATELET EST. Increased 09/23/2024 6:18 AM CDT [facility] ANISOCYTOSIS 2+ /hpf 09/23/2024 6:18 AM CDT [facility] POIKILOCYTES 1+ /hpf 09/23/2024 6:18 AM CDT [facility] POLYCHROMASIA 1+ /hpf 09/23/2024 6:18 AM CDT [facility] Blood Collection / Unknown 09/23/2024 4:30 AM CDT 09/23/2024 5:47 AM CDT External Provider [facility] HEMATOLOGY ORDERABLES COM Final Result Performing Organization Address City/[facility]/ZIP Co de Phone Number [facility] CLIA # [id number] [address] [place] [address] * MAGNESIUM LEVEL (09/23/2024 4:30 AM CDT) MAGNESIUM 1.9 1.6 - 2.4 mg/dL 09/23/2024 6:23 AM CDT [facility] Blood Collection / Unknown 09/23/2024 4:30 AM CDT 09/23/2024 5:47 AM CDT External Provider [facility] CHEMISTRY ORDERABLES Final Result [facility] CLIA # [id number] [facility] [address] * (ABNORMAL) CBC WITH DIFFERENTIAL (09/23/2024 4:30 AM CDT) Pathologist [facility] WBC 8.6 4.8 - 10.8 K/uL 09/23/2024 6:18 AM CDT [facility] RBC 3.07(L) 4.20 - 5.40 M/uL 09/23/2024 6:18 AM T [facility] HEMOGLOBIN 8.4(L) 12.0 - 16.0 g/dL 09/23/2024 6:18 AM CDT [facility] HEMATOCRIT 27.5(L) 36.0 - 46.0 % 09/23/2024 6:18 AM CDT [facility] MCV 89.6 84.0 - 103.0 fL 09/23/2024 6:18 AM CDT [facility] MCH 27.4 27.0 - 34.0 pg 09/23/2024 6:18 AM CDT [facility] MCHC 30.5 30.0 - 35.0 g/dL 09/23/2024 6:18 AM CDT [facility] PLATELETS 506(H) 140 - 440 K/uL 09/23/2024 6:18 AM CDT [facility] MPV 10.1 8.9 - 12.8 fL 09/23/2024 6:18 AM [facility] RDW 20.5(H) 11.0 - 14.5 % 09/23/2024 6:18 AM [facility] RDW-STDEV 66.1(H) 37.0 - 54.0 fL 09/23/2024 6:18 AM [facility] NEUTROPHILS 63 42 - 75 % 09/23/2024 6:18 AM [facility] LYMPHOCYTES 20(L) 24 - 44 % 09/23/2024 6:18 AM [facility] MONOCYTES 10 2 - 10 % 09/23/2024 6:18 AM [facility] EOSINOPHILS 5 0 - 7 % 09/23/2024 6:18 AM [facility] BASOPHILS 1 0 - 1 % 09/23/2024 6:18 AM [facility] IMMATURE GRANULOCYTES 1 0 - 2 % 09/23/2024 6:18 AM [facility] NEUTROPHIL ABSOLUTE 5.44 2.00 - 8.00 K/uL 09/23/2024 6:18 AM [facility] LYMPHOCYTE ABSOLUTE 1.70 1.20 - 4.00 K/uL 09/23/2024 6:18 AM [facility] MONOCYTE ABSOLUTE 0.88(H) 0.10 - 0.60 K/uL 09/23/2024 6:18 AM [facility] EOSINOPHIL ABSOLUTE 0.41 0.00 - 0.70 K/uL 09/23/2024 6:18 AM [facility] BASOPHILS ABSOLUTE 0.07 0.00 - 0.20 K/uL 09/23/2024 6:18 AM [facility] IMMATURE GRANULOCYTES ABSOLUTE 0.08 0.00 - 0.10 K/uL 09/23/2024 6:18 AM [facility] SMEAR REVIEWED: SR - See Smear Review on Manual Diff. 09/23/2024 6:18 AM [facility] Blood Collection / Unknown 09/23/2024 4:30 AM CDT 09/23/2024 5:47 AM CDT us External Provider [facility] HEMATOLOGY ORDERABLES Christiana mary Result [facility] CLIA # [id number] [address] [address] [place] [address] * (ABNORMAL) BASIC METABOLIC PANEL (09/23/2024 4:30 AM CDT) SODIUM 138 136 - 145 mmol/L 09/23/2024 6:23 AM T [facility] POTASSIUM 4.1 3.5 - 5.1 mmol/L 09/23/2024 6:23 AM T [facility] CHLORIDE 101 98 - 107 mmol/L 09/23/2024 6:23 AM T [facility] CO2 26 22 - 29 mmol/L 09/23/2024 6:23 AM T [facility] CALCIUM 8.2(L) 8.8 - 10.2 mg/dL 09/23/2024 6:23 AM [facility] BUN 12 8 - 23 mg/dL 09/23/2024 6:23 AM [facility] CREATININE 0.54 0.51 - 0.95 mg/dL 09/23/2024 6:23 AM [facility] Comment:The GFR result is no t clinically significant on patients <18 or >70 years of age. GLUCOSE 160(H) 74 - 99 mg/dL 09/23/2024 6:23 AM [facility] GFR >60 mL/min/1.7 3 sq meter 09/23/2024 6:23 AM [facility] Comment:eGFR calculated with 2020 CKD-EPI equation. Vegetarian diet, extremely high or low muscle mass, and may affect results. Cystatin C with Glomerular Filtration Rate is a suitable alternative for these patients. ANION GAP 11 9 - 20 mmol/L 09/23/2024 6:23 AM [facility] Blood Collection / Unknown 09/23/2024 4:30 AM CDT 09/23/2024 5:47 AM CDT External Provider [facility] CHEMISTRY ORDERABLES Final Result [facility] CLIA # [id number] [address] [place] [address] documented in this encounter Visit Diagnoses Not on filedocumented in this encounter Additional Health Concerns Infection Onset Date Last Indicated Resolved Time R/O GI Pathogen 10/27/2024 10/27/2024 10/27/2024 1 :05 PM CDT C Diff 10/27/2024 10/27/2024 documented as of this encounter Care Teams Top Frame Maker Relationship Specialty Start Date End Date Non-Staff, Physician NO ADDRESS ON FILE PCP - General 08/30/13 documented as of this encounter
--- OUTSIDE RECORDS SUMMARY | 2024-11-14 23:04 | XMS_ITS | Encounter Summary ---
Author Organization [employer] Address 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 Gender Identity Not on file Sexual Orientation Not on file documented as of this encounter Plan of Treatment Not on file documented as of this encounter Procedures Procedure Name Priority Date/Time Associated Diagnosis Comments CBC WITH DIFFERENTIAL Routine 09/19/2024 3:15 AM CDT C-REACTIVE PROTEIN Routine 09/19/2024 3: 15 AM CDT COMPREHENSIVE METABOLIC PANEL Routine 09/19/2024 3:15 AM CDT documented in this encounter Results * (ABNORMAL) CBC WITH DIFFERENTIAL (09/19/2024 3:15 AM CDT) [facility] WBC 7.6 4.8 - 10.8 K/uL 09/19/2024 5:45 AM CDT [facility] RBC 2.92(L) 4.20 - 5.40 M/uL 09/19/2024 5:45 AM CDT [facility] HEMOGLOBIN 7.9(L) 12.0 - 16.0 g/dL 09/19/2024 5:45 AM [facility] HEMATOCRIT 25.9(L) 36.0 - 46.0 % 09/19/2024 5:45 AM [facility] MCV 88.7 84.0 - 103.0 fL 09/19/2024 5:45 AM [facility] MCH 27.1 27.0 - 34.0 pg 09/19/2024 5:45 AM [facility] MCHC 30.5 30.0 - 35.0 g/dL 09/19/2024 5:45 AM [facility] PLATELETS 539(H) 140 - 440 K/uL 09/19/2024 5:45 AM [facility] MPV 10.4 8.9 - 12.8 fL 09/19/2024 5:45 AM [facility] RDW 19.4(H) 11.0 - 14.5 % 09/19/2024 5:45 AM [facility] RDW-STDEV 61.8(H) 37.0 - 54.0 fL 09/19/2024 5:45 AM [facility] [employer] [facility] NEUTROPHILS 61 42 - 75 % 09/19/2024 5:[facility] [employer] [facility] LYMPHOCYTES 20(L) 24 - 44 % 09/19/2024 5:45 AM [facility] [employer] [facility] MONOCYTES 11(H) 2 - 10 % 09/19/2024 5:45 AM CDT [facility] EOSINOPHILS 5 0 - 7 % 09/19/2024 5:45 AM CDT [facility] BASOPHILS 1 0 - 1 % 09/19/2024 5:45 AM CDT [facility] IMMATURE GRANULOCYTES 4(H) 0 - 2 % 09/19/2024 5:45 AM CDT [facility] NEUTROPHIL ABSOLUTE 4.62 2.00 - 8.00 K/uL 09/19/2024 5:45 AM CDT [facility] LYMPHOCYTE ABSOLUTE 1.48 1.20 - 4.00 K/uL 09/19/2024 5:45 AM CDT [facility] MONOCYTE ABSOLUTE 0.81(H) 0.10 - 0.60 K/uL 09/19/2024 5:45 AM CDT [facility] EOSINOPHIL ABSOLUTE 0.34 0.00 - 0.70 K/uL 09/19/2024 5:45 AM CDT [facility] BASOPHILS ABSOLUTE 0.05 0.00 - 0.20 K/uL 09/19/2024 5:45 AM CDT [facility] IMMATURE GRANULOCYTES ABSOLUTE 0.28(H) 0.00 - 0.10 K/uL 09/19/2024 5:45 AM CDT [facility] SMEAR REVIEWED: NN - No Action Needed 09/19/2024 5:45 AM [facility] Blood Collection / Unknown 09/19/2024 3:15 AM CDT 09/19/2024 5:35 AM CDT us Harry Reyes DO HEMATOLOGY ORDERABLES Final Result [facility] CLIA # [id number] [address] [place] [address] [place], [place] [id number] * (ABNORMAL) C-REACTIVE PROTEIN (09/19/2024 3:15 AM CDT) Pathologist [facility] CRP 52.6(H) 0.0 - 5.0 mg/L 09/19/2024 6:20 AM T [facility] Blood Collection / Unknown 09/19/2024 3:15 AM CDT 09/19/2024 5:35 AM CDT aHrry Reyes DO CHEMISTRY ORDERABLES Final R esult [facility] CLIA # [id number] [facility] [address] [place] [address] * (ABNORMAL) COMPREHENSIVE METABOLIC PANEL (09/19/2024 3:15 AM CDT) SODIUM 139 136 - 145 mmol/L 09/19/2024 6:20 AM T [facility] POTASSIUM 3.3(L) 3.5 - 5.1 mmol/L 09/19/2024 6:20 AM T [facility] CHLORIDE 102 98 - 107 mmol/L 09/19/2024 6:20 AM T [facility] CO2 26 22 - 29 mmol/L 09/19/2024 6:20 AM T [facility] CALCIUM 7.6(L) 8.8 - 10.2 mg/dL 09/19/2024 6:20 AM T [facility] BUN 9 8 - 23 mg/dL 09/19/2024 6:20 AM T [facility] CREATININE 0.61 0.51 - 0.95 mg/dL 09/19/2024 6:20 AM T [facility] Comment:The GFR result is no t clinically significant on patients <18 or >70 years of age. GLUCOSE 146(H) 74 - 99 mg/dL 09/19/2024 6:20 AM T [facility] TOTAL PROTEIN 5.2(L) 6.4 - 8.3 g/dL 09/19/2024 6:20 AM T [facility] ALBUMIN 2.3(L) 3.5 - 5.2 g/dL 09/19/2024 6:20 AM CDT [facility] BILIRUBIN TOTAL 0.2 0.0 - 1.0 mg/dL 09/19/2024 6:20 AM T [facility] ALKALINE PHOSPHATASE 85 35 - 104 U/L 09/19/2024 6:20 AM T [facility] AST 53(H) 10 - 35 U/L 09/19/2024 6:20 AM T [facility] ALT 47(H) <=35 U/L 09/19/2024 6:20 AM T [facility] GFR >60 mL/min/1.7 3 sq meter 09/19/2024 6:20 AM T [facility] Comment:eGFR calculated with 2020 CKD-EPI equation. Vegetarian diet, extremely high or low muscle mass, and may affect results. Cystatin C with Glomerular Filtration Rate is a suitable alternative for these patients. ANION GAP 11 9 - 20 mmol/L 09/19/2024 6:20 AM [facility] Blood Collection / Unknown 09/19/2024 3:15 AM CDT 09/19/2024 5:35 AM CDT Harry Reyes DO CHEMISTRY ORDERABLES Final R esult [facility] CLIA # [id number] [address] [place] [address] documented in this encounter Visit Diagnoses Not on filedocumented in this encounter Additional Health Concerns Infection Onset Date Last Indicated Resolved Time R/O GI Pathogen 10/27/2024 10/27/2024 10/27/2024 1 :05 PM CDT C Diff 10/27/2024 10/27/2024 documented as of this encounter Care Teams Chip Tuner Relationship Specialty Start Date End Date Non-Staff, Physician NO ADDRESS ON FILE PCP - General 08/30/13 documented as of this encounter
--- OUTSIDE RECORDS SUMMARY | 2024-11-14 23:04 | XMS_ITS | Encounter Summary ---
Author Organization [employer] Address 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 Gender Identity Not on file Sexual Orientation Not on file documented as of this encounter Plan of Treatment Not on file documented as of this encounter Procedures Procedure Name Priority Date/Time Associated Diagnosis Comments CBC WITH DIFFERENTIAL Routine 09/18/2024 4:10 AM CDT C-REACTIVE PROTEIN Routine 09/18/2024 4: 10 AM CDT COMPREHENSIVE METABOLIC PANEL Routine 09/18/2024 4:10 AM CDT documented in this encounter Results * (ABNORMAL) C-REACTIVE PROTEIN (09/18/2024 4:10 AM CDT) [facility] CRP 83.4(H) 0.0 - 5.0 mg/L 09/18/2024 6:04 AM CDT [facility] Blood Collection / Unknown 09/18/2024 4:10 AM CDT 09/18/2024 5:28 AM CDT Harry Reyes DO CHEMISTRY ORDERABLES Final R esult [facility] CLIA # [id number] [address] [place] [address] * (ABNORMAL) CBC WITH DIFFERENTIAL (09/18/2024 4:10 AM CDT) [facility] WBC 10.2 4.8 - 10.8 K/uL 09/18/2024 5:39 AM CDT [facility] RBC 3.10(L) 4.20 - 5.40 M/uL 09/18/2024 5:39 AM CDT [facility] HEMOGLOBIN 8.5(L) 12.0 - 16.0 g/dL 09/18/2024 5:39 AM CDT [facility] HEMATOCRIT 27.7(L) 36.0 - 46.0 % 09/18/2024 5:39 AM CDT [facility] MCV 89.4 84.0 - 103.0 fL 09/18/2024 5:39 AM CDT [facility] MCH 27.4 27.0 - 34.0 pg 09/18/2024 5:39 AM CDT [facility] MCHC 30.7 30.0 - 35.0 g/dL 09/18/2024 5:39 AM CDT [facility] PLATELETS 475(H) 140 - 440 K/uL 09/18/2024 5:39 AM [facility] MPV 10.6 8.9 - 12.8 fL 09/18/2024 5:39 AM [facility] RDW 19.8(H) 11.0 - 14.5 % 09/18/2024 5:39 AM [facility] RDW-STDEV 63.0(H) 37.0 - 54.0 fL 09/18/2024 5:39 AM [facility] NEUTROPHILS 64 42 - 75 % 09/18/2024 5:39 AM [facility] LYMPHOCYTES 19(L) 24 - 44 % 09/18/2024 5:39 AM [facility] MONOCYTES 9 2 - 10 % 09/18/2024 5:39 AM [facility] EOSINOPHILS 4 0 - 7 % 09/18/2024 5:39 AM [facility] BASOPHILS 0 0 - 1 % 09/18/2024 5:39 AM [facility] IMMATURE GRANULOCYTES 5(H) 0 - 2 % 09/18/2024 5:39 AM [facility] NEUTROPHIL ABSOLUTE 6.49 2.00 - 8.00 K/uL 09/18/2024 5:39 AM [facility] LYMPHOCYTE ABSOLUTE 1.89 1.20 - 4.00 K/uL 09/18/2024 5:39 AM [facility] MONOCYTE ABSOLUTE 0.89(H) 0.10 - 0.60 K/uL 09/18/2024 5:39 AM [facility] EOSINOPHIL ABSOLUTE 0.38 0.00 - 0.70 K/uL 09/18/2024 5:39 AM [facility] BASOPHILS ABSOLUTE 0.04 0.00 - 0.20 K/uL 09/18/2024 5:39 AM [facility] IMMATURE GRANULOCYTES ABSOLUTE 0.49(H) 0.00 - 0.10 K/uL 09/18/2024 5:39 AM [facility] SMEAR REVIEWED: NA - Not Applicable 09/18/2024 5:39 AM CDT [facility] Blood Collection / Unknown 09/18/2024 4:10 AM CDT 09/18/2024 5:29 AM CDT Harry Reyes DO HEMATOLOGY ORDERABLES Final Result [facility] CLIA # [id number] [facility] [address] [address] [place] [address] * (ABNORMAL) COMPREHENSIVE METABOLIC PANEL (09/18/2024 4:10 AM CDT) SODIUM 136 136 - 145 mmol/L 09/18/2024 1:27 PM CDT [facility] Comment: ISE malfunction. Notified Licha Richardson RN. This is a corrected result. Previous result was 125 mmol/L on 09/18/2024 at 0606 CDT POTASSIUM 3.8 3.5 - 5.1 mmol/L 09/18/2024 1:27 PM CDT [facility] Comment: ISE malfunction. Notified Licha Richardson RN. This is a corrected result. Previous result was 3.5 mmol/L on 09/18/2024 at 0606 CDT CHLORIDE 100 98 - 107 mmol/L 09/18/2024 1:27 PM T [facility] Comment: ISE malfunction. Notified Licha Richardson RN. This is a corrected result. Previous result was 92 mmol/L on 09/18/2024 at 0606 CDT CO2 25 22 - 29 mmol/L 09/18/2024 1:27 PM CDT [facility] CALCIUM 7.9(L) 8.8 - 10.2 mg/dL 09/18/2024 1:27 PM CDT [facility] BUN 10 8 - 23 mg/dL 09/18/2024 1:27 PM CDT [facility] CREATININE 0.62 0.51 - 0.95 mg/dL 09/18/2024 1:27 PM [facility] Comment:The GFR result is no t clinically significant on patients <18 or >70 years of age. GLUCOSE 146(H) 74 - 99 mg/dL 09/18/2024 1:27 PM [facility] TOTAL PROTEIN 5.5(L) 6.4 - 8.3 g/dL 09/18/2024 1:27 PM [facility] ALBUMIN 2.5(L) 3.5 - 5.2 g/dL 09/18/2024 1:27 PM [facility] BILIRUBIN TOTAL 0.2 0.0 - 1.0 mg/dL 09/18/2024 1:27 PM [facility] ALKALINE PHOSPHATASE 102 35 - 104 U/L 09/18/2024 1:27 PM [facility] AST 81(H) 10 - 35 U/L 09/18/2024 1:27 PM [facility] ALT 61(H) <=35 U/L 09/18/2024 1:27 PM [facility] GFR >60 mL/min/1.7 3 sq meter 09/18/2024 1:27 PM [facility] Comment:eGFR calculated with 2020 CKD-EPI equation. Vegetarian diet, extremely high or low muscle mass, and may affect results. Cystatin C with Glomerular Filtration Rate is a suitable alternative for these patients. ANION GAP 11 9 - 20 mmol/L 09/18/2024 1:27 PM [facility] Comment: ISE malfunction. Notified Licha Richardson RN. This is a corrected result. Previous result was 8 mmol/L on 09/18/2024 at 0606 [facility] Blood Collection / Unknown 09/18/2024 4:10 AM CDT 09/18/2024 5:28 AM CDT Harry Reyes DO CHEMISTRY ORDERABLES Edited Result - Final [facility] CLIA # [id number] [address] [address] [address] [facility] [place] [address] documented in this encounter Visit Diagnoses Not on filedocumented in this encounter Additional Health Concerns Infection Onset Date Last Indicated Resolved Time R/O GI Pathogen 10/27/2024 10/27/2024 10/27/2024 1 :05 PM CDT C Diff 10/27/2024 10/27/2024 documented as of this encounter Care Teams Security Intern Relationship Specialty Start Date End Date Non-Staff, Physician NO ADDRESS ON FILE PCP - General 08/30/13 documented as of this encounter
--- OUTSIDE RECORDS SUMMARY | 2024-11-14 23:04 | XMS_ITS | Encounter Summary ---
Author Organization [employer] Address 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 Gender Identity Not on file Sexual Orientation Not on file documented as of this encounter Plan of Treatment Not on file documented as of this encounter Procedures Procedure Name Priority Date/Time Associated Diagnosis Comments CBC WITH DIFFERENTIAL Routine 10/03/2024 3:20 AM CDT C-REACTIVE PROTEIN Routine 10/03/2024 3: 20 AM CDT COMPREHENSIVE METABOLIC PANEL Routine 10/03/2024 3:20 AM CDT documented in this encounter Results * (ABNORMAL) CBC WITH DIFFERENTIAL (10/03/2024 3:20 AM CDT) [facility] [address] WBC 11.1(H) 4.8 - 10.8 K/uL 10/03/2024 5:53 AM CDT [facility] RBC 3.59(L) 4.20 - 5.40 M/uL 10/03/2024 5:53 AM CDT [facility] HEMOGLOBIN 9.9(L) 12.0 - 16.0 g/dL 10/03/2024 5:53 AM CDT [facility] HEMATOCRIT 32.7(L) 36.0 - 46.0 % 10/03/2024 5:53 AM CDT [facility] MCV 91.1 84.0 - 103.0 fL 10/03/2024 5:53 AM [facility] MCH 27.6 27.0 - 34.0 pg 10/03/2024 5:53 AM [facility] MCHC 30.3 30.0 - 35.0 g/dL 10/03/2024 5:53 AM CDT [facility] PLATELETS 396 140 - 440 K/uL 10/03/2024 5:53 AM [facility] MPV 10.7 8.9 - 12.8 fL 10/03/2024 5:53 AM [facility] RDW 17.6(H) 11.0 - 14.5 % 10/03/2024 5:53 AM [facility] RDW-STDEV 59.0(H) 37.0 - 54.0 fL 10/03/2024 5:53 AM [facility] NEUTROPHILS 68 42 - 75 % 10/03/2024 5:53 AM CDT [facility] LYMPHOCYTES 18(L) 24 - 44 % 10/03/2024 5:53 AM [facility] MONOCYTES 9 2 - 10 % 10/03/2024 5:53 AM CDT [facility] EOSINOPHILS 4 0 - 7 % 10/03/2024 5:53 AM CDT [facility] BASOPHILS 0 0 - 1 % 10/03/2024 5:53 AM CDT [facility] IMMATURE GRANULOCYTES 1 0 - 2 % 10/03/2024 5:53 AM CDT [facility] NEUTROPHIL ABSOLUTE 7.58 2.00 - 8.00 K/uL 10/03/2024 5:53 AM CDT [facility] LYMPHOCYTE ABSOLUTE 2.00 1.20 - 4.00 K/uL 10/03/2024 5:53 AM CDT [facility] MONOCYTE ABSOLUTE 1.04(H) 0.10 - 0.60 K/uL 10/03/2024 5:53 AM CDT [facility] EOSINOPHIL ABSOLUTE 0.41 0.00 - 0.70 K/uL 10/03/2024 5:53 AM CDT [facility] BASOPHILS ABSOLUTE 0.05 0.00 - 0.20 K/uL 10/03/2024 5:53 AM CDT [facility] IMMATURE GRANULOCYTES ABSOLUTE 0.06 0.00 - 0.10 K/uL 10/03/2024 5:53 AM T [facility] SMEAR REVIEWED: NA - Not Applicable 10/03/2024 5:53 AM [facility] Blood Collection / Unknown 10/03/2024 3:20 AM CDT 10/03/2024 5:43 AM CDT Harry Reyes DO HEMATOLOGY ORDERABLES Final Result [facility] CLIA # [id number] [address] [place] [address] [place] [address] * (ABNORMAL) C-REACTIVE PROTEIN (10/03/2024 3:20 AM CDT) Pathologist [facility] CRP 258.3(H) 0.0 - 5.0 mg/L 10/03/2024 6:21 AM CDT [facility] Blood Collection / Unknown 10/03/2024 3:20 AM CDT 10/03/2024 5:43 AM CDT Harry Reyes DO CHEMISTRY ORDERABLES Final R esult [facility] CLIA # [id number] [address] [place] [address] [place] [address] * (ABNORMAL) COMPREHENSIVE METABOLIC PANEL (10/03/2024 3:20 AM CDT) SODIUM 133(L) 136 - 145 mmol/L 10/03/2024 6:21 AM T [facility] POTASSIUM 4.0 3.5 - 5.1 mmol/L 10/03/2024 6:21 AM T [facility] CHLORIDE 96(L) 98 - 107 mmol/L 10/03/2024 6:21 AM T [facility] CO2 22 22 - 29 mmol/L 10/03/2024 6:21 AM T [facility] CALCIUM 8.6(L) 8.8 - 10.2 mg/dL 10/03/2024 6:21 AM T [facility] BUN 15 8 - 23 mg/dL 10/03/2024 6:21 AM T [facility] CREATININE 0.51 0.51 - 0.95 mg/dL 10/03/2024 6:21 AM T [facility] Comment:The GFR result is no t clinically significant on patients <18 or >70 years of age. GLUCOSE 144(H) 74 - 99 mg/dL 10/03/2024 6:21 AM T [facility] TOTAL PROTEIN 6.4 6.4 - 8.3 g/dL 10/03/2024 6:21 AM T [facility] ALBUMIN 2.5(L) 3.5 - 5.2 g/dL 10/03/2024 6:21 AM [facility] BILIRUBIN TOTAL 0.2 0.0 - 1.0 mg/dL 10/03/2024 6:21 AM [facility] ALKALINE PHOSPHATASE 70 35 - 104 U/L 10/03/2024 6:21 AM [facility] AST 43(H) 10 - 35 U/L 10/03/2024 6:21 AM [facility] ALT 36(H) <=35 U/L 10/03/2024 6:21 AM [facility] GFR >60 mL/min/1.7 3 sq meter 10/03/2024 6:21 AM [facility] Comment:eGFR calculated with 2020 CKD-EPI equation. Vegetarian diet, extremely high or low muscle mass, and may affect results. Cystatin C with Glomerular Filtration Rate is a suitable alternative for these patients. ANION GAP 15 9 - 20 mmol/L 10/03/2024 6:21 AM [facility] Blood Collection / Unknown 10/03/2024 3:20 AM CDT 10/03/2024 5:43 AM CDT us Harry Reyes DO CHEMISTRY ORDERABLES Final R esult [facility] CLIA # [id number] [address] [place] [address] documented in this encounter Visit Diagnoses Not on filedocumented in this encounter Additional Health Concerns Infection Onset Date Last Indicated Resolved Time R/O GI Pathogen 10/27/2024 10/27/2024 10/27/2024 1 :05 PM CDT C Diff 10/27/2024 10/27/2024 documented as of this encounter Care Teams Yarder Relationship Specialty Start Date End Date Non-Staff, Physician NO ADDRESS ON FILE PCP - General 08/30/13 documented as of this encounter
--- OUTSIDE RECORDS SUMMARY | 2024-11-14 23:04 | XMS_ITS | Encounter Summary ---
Author Organization [facility] Address [address] [place] [address] Care Team Providers Care Motion Picture Set Grip Name Role Phone Non-Staff, Physician Primary Care Provider Unava ilable Encounter Details Date Type Department Care Team (Late st Contact Info) Description 04/12/2003 Outpatient Historical [facility] Family Medicine- [address] [place] [phone] Social History Tobacco Use Types Packs/Day Years Used Date Smoking Tobacco: Never Assessed Comments Unknown Sex and Gender Information Value Date Recorded Sex Assigned at Not on file 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
--- OUTSIDE RECORDS SUMMARY | 2024-11-14 23:04 | XMS_ITS | Encounter Summary ---
Author Organization [facility] Address [address] [place] [address] Care Team Providers Care Heel Cutter Name Role Phone Non-Staff, Physician Primary Care Provider Unava ilable Encounter Details Date Type Department Care Team (Late st Contact Info) Description 10/17/2024 Lab Requisition [facility] [address] [place] [address] [place] [id number] [facility], External Provider [address] [place] [address] Social History Tobacco Use Types Packs/Day Years [...] on file Legal Sex Female 11:03 AM [employer] Gender Identity Not on file Sexual Orientation Not on file documented as of this encounter Plan of Treatment Not on file documented as of this encounter Procedures Procedure Name Priority Date/Time Associated Diagnosis Comments URINE CULTURE Routine 10/17/2024 3:32 PM CDT documented in this encounter Results * URINE CULTURE (10/17/2024 3:32 PM CDT) CULTURE No growth 10/18/2024 1:06 PM CDT [facility] Urine Collection / Unknown 10/17/2024 3:32 PM CDT 10/17/2024 4:47 PM CDT us External Provider [facility] MICROBIOLOGY - GENERAL ORD ERABLES Final Result [facility] CLIA # [id number] [id number] documented in this encounter Visit Diagnoses Not on filedocumented in this encounter Additional Health Concerns Infection Onset Date Last Indicated Resolved Time R/O GI Pathogen 10/27/2024 10/27/2024 10/27/2024 1 :05 PM CDT C Diff 10/27/2024 10/27/2024 documented as of this encounter Care Teams Heel Cutter Relationship Specialty Start Date End Date Non-Staff, Physician NO ADDRESS ON FILE PCP - General 08/30/13 documented as of this encounter
--- OUTSIDE RECORDS SUMMARY | 2024-11-14 23:04 | XMS_ITS | Encounter Summary ---
Author Organization [facility] Address [address] [place] [address] Care Team Providers Care Iv Technician Name Role Phone Non-Staff, Physician Primary Care Provider Unava ilable Encounter Details Date Type Department Care Team (Latest Contact Info) Description 11/25/2005 Outpatient Historical [facility] [address] [place] [id number] Sesar Rayo MD NO ADDRESS ON FILE Primary Localized Osteoarthrosis, Lower Leg (Primary Dx); Pain in Joint, Lower Leg Social History Tobacco Use Types Packs/Day Years Used Date Smoking Tobacco: Never Assessed Comments Unknown Sex and Gender Information Value Date Recorded Sex Assigned at Not on file Legal Sex Female 3:15 AM [employer] Gender Identity Not on file Sexual Orientation Not on file documented as of this encounter Plan of Treatment Not on file documented as of this encounter Visit Diagnoses Diagnosis Primary localized osteoarthrosis, lower leg- Primary Pain in joint, lower leg documented in this encounter Care Teams Iv Technician Relationship Specialty Start Date End Date Non-Staff, Physician NO ADDRESS ON FILE PCP - General 08/30/13 documented as of this encounter
--- OUTSIDE RECORDS SUMMARY | 2024-11-14 23:04 | XMS_ITS | Encounter Summary ---
Author Organization [facility] Address [address] [place] [address] Care Team Providers Care Power Press Operator Name Role Phone Non-Staff, Physician Primary Care Provider Unava ilable Encounter Details Date Type Department Care Team (Latest Contact Info) Description 12/16/2002 Outpatient Historical [facility]- [address] [place] [address] Wanda Castro MD NO ADDRESS ON FILE Plantar fibromatosis (Primary Dx); HYPERTENSION NOS Social History Tobacco Use Types Packs/Day Years Used Date Smoking Tobacco: Never Assessed Comments Unknown Sex and Gender Information Value Date Recorded Sex Assigned at Not on file 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
--- OUTSIDE RECORDS SUMMARY | 2024-11-14 23:04 | XMS_ITS | Encounter Summary ---
Author Organization [employer] [facility] Address [address] [place] [address] Care Team Providers Care Mower Sharpener Name Role Phone Non-Staff, Physician Primary Care Provider Unava ilable Encounter Details Date Type Department Care Team (Late st Contact Info) Description 12/18/2005 Inpatient Historical [facility] Sesar Rayo MD NO ADDRESS ON FILE Loc Osteoarth NOS-L/Leg (Primary Dx) Social History Tobacco Use Types Packs/Day Years Used Date Smoking Tobacco: Never Assessed Comments Unknown Sex and Gender Information Value Date Recorded Sex Assigned at Not on file 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 Gender Identity Not on file Sexual Orientation Not on file documented as of this encounter Plan of Treatment Not on file documented as of this encounter Procedures Procedure Name Priority Date/Time Associated Diagnosis Comments POC GLUCOSE Routine 12/23/2005 6:09 AM CDT CBC WITH DIFFERENTIAL Routine 12/23/2005 5:05 AM CDT POC GLUCOSE Routine 12/22/2005 8:47 PM CDT POC GLUCOSE Routine 12/22/2005 5:53 PM CDT POC GLUCOSE Routine 12/22/2005 11:35 AM CDT POC GLUCOSE Routine 12/22/2005 5:27 AM CDT CBC WITHOUT DIFFERENTIAL Routine 12/22/2005 5:05 AM CDT POC GLUCOSE Routine 12/21/2005 8:48 PM CDT POC GLUCOSE Routine 12/21/2005 5:27 PM CDT POC GLUCOSE Routine 12/21/2005 11:04 AM CDT POC GLUCOSE Routine 12/21/2005 5:37 AM CDT BASIC METABOLIC PANEL Routine 12/21/2005 4:37 AM CDT CBC WITH DIFFERENTIAL Routine 12/21/2005 4:32 AM CDT POC GLUCOSE Routine 12/20/2005 8:52 PM CDT POC GLUCOSE Routine 12/20/2005 4:56 PM CDT POC GLUCOSE Routine 12/20/2005 12:06 PM CDT POC GLUCOSE Routine 12/20/2005 6:26 AM CDT CBC WITH DIFFERENTIAL Routine 12/20/2005 4:28 AM CDT BASIC METABOLIC PANEL Routine 12/20/2005 4:28 AM CDT POC GLUCOSE Routine 12/19/2005 8:42 PM CDT POC GLUCOSE Routine 12/19/2005 5:01 PM CDT POC GLUCOSE Routine 12/19/2005 12:04 PM CDT POC GLUCOSE Routine 12/19/2005 5:49 AM CDT CBC WITHOUT DIFFERENTIAL Routine 12/19/2005 4:31 AM CDT BASIC METABOLIC PANEL Routine 12/19/2005 4:31 AM CDT POC GLUCOSE Routine 12/18/2005 9:27 PM CDT POC GLUCOSE Routine 12/18/2005 5:21 PM CDT POC GLUCOSE Routine 12/18/2005 12:31 PM CDT documented in this encounter Results * (ABNORMAL) POC GLUCOSE (12/23/2005 6:09 AM CDT) Pathologist [facility] GLUCOSE POC 189(H) 60 - 100 mg/dL INTERFACE SYSTEM 12/23/2005 6:09 AM CDT us Sesar Rayo MD POINT OF CARE TESTING Final Re sult INTERFACE SYSTEM Refer to clinic/hospital department * (ABNORMAL) CBC WITH DIFFERENTIAL (12/23/2005 5:05 AM CDT) Pathologist [facility] WBC 6.8 4.8 - 10.8 K/ul INTERFACE SYSTEM RBC 2.97(L) 4.20 - 5.40 Mil/ul INTERFACE SYSTEM HEMOGLOBIN 8.6(L) 12.0 - 16.0 g/dL INTERFACE SYSTEM HEMATOCRIT 26.5(L) 36.0 - 46.0 % INTERFACE SYSTEM MCV 89.2 84.0 - 103.0 Fl INTERFACE SYSTEM MCH 29.0 27.0 - 34.0 pg INTERFACE SYSTEM MCHC 32.5 30.0 - 35.0 g/dL INTERFACE SYSTEM RDW 13.3 11.0 - 14.5 % INTERFACE SYSTEM PLATELETS 322 140 - 440 K/ul INTERFACE SYSTEM MPV 9.6 8.9 - 12.8 Fl INTERFACE SYSTEM NEUTROPHILS 58.0 42.2 - 75.2 % INTERFACE SYSTEM LYMPHOCYTES 25.6 24.0 - 44.0 % INTERFACE SYSTEM MONOCYTES 11.0(H) 2.0 - 10.0 % INTERFA CE SYSTEM EOSINOPHILS 5.0 0.0 - 7.0 % INTERF ANTHONY SYSTEM BASOPHILS 0.4 0.0 - 1.0 % INTERFAC E SYSTEM NEUTROPHIL ABSOLUTE 4.0 2.0 - 8.0 K/uL INTERFACE SYSTEM LYMPHOCYTE ABSOLUTE 1.7 1.2 - 4.0 K/ul INTERFACE SYSTEM MONOCYTE ABSOLUTE 0.8(H) 0.1 - 0.6 K/ul INTERFACE SYSTEM EOSINOPHIL ABSOLUTE 0.3 0.0 - 0.7 K/ul INTERFACE SYSTEM BASOPHILS ABSOLUTE 0.0 0.0 - 0.2 K/ul INTERFACE SYSTEM PERIPHERAL BLOOD SMEAR REVIEW Automated Diff Automated Diff INTERFACE SYSTEM 12/23/2005 5:05 AM CDT Sesar Rayo MD HEMATOLOGY ORDERABLES Final Re sult Performing Organization Address [facility] Phone Number INTERFACE SYSTEM Refer to clinic/hospital department * (ABNORMAL) POC GLUCOSE (12/22/2005 8:47 PM CDT) GLUCOSE POC 135(H) 60 - 100 mg/dL INTERFACE SYSTEM COMMENT POC Follow Protocol INTERFACE SYSTEM 12/22/2005 8:47 PM CDT Sesar Rayo MD POINT OF CARE TESTING Final Re sult Performing Organization Address [facility] Phone Number INTERFACE SYSTEM Refer to clinic/hospital department * (ABNORMAL) POC GLUCOSE (12/22/2005 5:53 PM CDT) GLUCOSE POC 101(H) 60 - 100 mg/dL INTERFACE SYSTEM 12/22/2005 5:53 PM CDT Sesar Rayo MD POINT OF CARE TESTING Final Re sult Performing Organization Address [facility] Phone Number INTERFACE SYSTEM Refer to clinic/hospital department * (ABNORMAL) POC GLUCOSE (12/22/2005 11:35 AM CDT) GLUCOSE POC 123(H) 60 - 100 mg/dL INTERFACE SYSTEM 12/22/2005 11:3 5 AM CDT Sesar Rayo MD POINT OF CARE TESTING Final Re sult Performing Organization Address [facility] Phone Number INTERFACE SYSTEM Refer to clinic/hospital department * (ABNORMAL) POC GLUCOSE (12/22/2005 5:27 AM CDT) GLUCOSE POC 121(H) 60 - 100 mg/dL INTERFACE SYSTEM 12/22/2005 5:27 AM CDT us Sesar Rayo MD POINT OF CARE TESTING Final Re sult INTERFACE SYSTEM Refer to clinic/hospital department * (ABNORMAL) CBC WITHOUT DIFFERENTIAL (12/22/2005 5:05 AM CDT) Pathologist [facility] WBC 8.4 4.8 - 10.8 K/ul INTERFACE SYSTEM RBC 2.91(L) 4.20 - 5.40 Mil/ul INTERFACE SYSTEM HEMOGLOBIN 8.4(L) 12.0 - 16.0 g/dL INTERFACE SYSTEM HEMATOCRIT 25.8(L) 36.0 - 46.0 % INTERFACE SYSTEM MCV 88.7 84.0 - 103.0 Fl INTERFACE SYSTEM MCH 28.9 27.0 - 34.0 pg INTERFACE SYSTEM MCHC 32.6 30.0 - 35.0 g/dL INTERFACE SYSTEM RDW 13.3 11.0 - 14.5 % INTERFACE SYSTEM PLATELETS 278 140 - 440 K/ul INTERFACE SYSTEM MPV 10.1 8.9 - 12.8 Fl INTERFACE SYSTEM NEUTROPHILS 60.6 42.2 - 75.2 % INTERFACE SYSTEM LYMPHOCYTES 26.2 24.0 - 44.0 % INTERFACE SYSTEM MONOCYTES 10.7(H) 2.0 - 10.0 % INTERFA CE SYSTEM EOSINOPHILS 2.0 0.0 - 7.0 % INTERF ANTHONY SYSTEM BASOPHILS 0.5 0.0 - 1.0 % INTERFAC E SYSTEM NEUTROPHIL ABSOLUTE 5.1 2.0 - 8.0 K/uL INTERFACE SYSTEM LYMPHOCYTE ABSOLUTE 2.2 1.2 - 4.0 K/ul INTERFACE SYSTEM MONOCYTE ABSOLUTE 0.9(H) 0.1 - 0.6 K/ul INTERFACE SYSTEM EOSINOPHIL ABSOLUTE 0.2 0.0 - 0.7 K/ul INTERFACE SYSTEM BASOPHILS ABSOLUTE 0.0 0.0 - 0.2 K/ul INTERFACE SYSTEM HEM COMMENT Automated Diff Automated Diff INTERFACE SYSTEM 12/22/2005 5:05 AM CDT Sesar Rayo MD HEMATOLOGY ORDERABLES Final Re sult Performing Organization Address City/[facility]/ZIP Co de Phone Number INTERFACE SYSTEM Refer to clinic/hospital department * (ABNORMAL) POC GLUCOSE (12/21/2005 8:48 PM CDT) GLUCOSE POC 136(H) 60 - 100 mg/dL INTERFACE SYSTEM 12/21/2005 8:48 PM CDT Sesar Rayo MD POINT OF CARE TESTING Final Re sult Performing Organization Address [facility] Phone Number INTERFACE SYSTEM Refer to clinic/hospital department * (ABNORMAL) POC GLUCOSE (12/21/2005 5:27 PM CDT) GLUCOSE POC 133(H) 60 - 100 mg/dL INTERFACE SYSTEM 12/21/2005 5:27 PM CDT Sesar Rayo MD POINT OF CARE TESTING Final Re sult Performing Organization Address [facility] Phone Number INTERFACE SYSTEM Refer to clinic/hospital department * (ABNORMAL) POC GLUCOSE (12/21/2005 11:04 AM CDT) GLUCOSE POC 121(H) 60 - 100 mg/dL INTERFACE SYSTEM 12/21/2005 11:0 4 AM CDT Sesar Rayo MD POINT OF CARE TESTING Final Re sult Performing Organization Address [facility] Phone Number INTERFACE SYSTEM Refer to clinic/hospital department * (ABNORMAL) POC GLUCOSE (12/21/2005 5:37 AM CDT) GLUCOSE POC 137(H) 60 - 100 mg/dL INTERFACE SYSTEM 12/21/2005 5:37 AM CDT Sesar Rayo MD POINT OF CARE TESTING Final Re sult Performing Organization Address [facility] Phone Number INTERFACE SYSTEM Refer to clinic/hospital department * (ABNORMAL) BASIC METABOLIC PANEL (12/21/2005 4:37 AM CDT) GLUCOSE 115(H) 70 - 110 mg/dL INTERFACE SYSTEM BUN 10 7 - 17 mg/dL INTERFACE SYSTEM CREATININE 0.5(L) 0.7 - 1.2 mg/dL INTERFACE SYSTEM SODIUM 135(L) 136 - 145 mEq/L INTERFACE SYSTEM POTASSIUM 4.4 3.5 - 5.0 mEq/L INTERFACE SYSTEM CHLORIDE 101 95 - 110 mEq/L INTERFACE SYSTEM CO2 30 22 - 32 mmol/l INTERFACE SYSTEM ANION GAP 8(L) 9 - 20 mEq/L INTERFACE SYSTEM OSMOLALITY, CALCULATED 279 275 - 295 mOsm/Kg INTERFACE SYSTEM CALCIUM 8.4 8.4 - 10.5 mg/dL INTERFACE SYSTEM 12/21/2005 4:37 AM CDT us Sesar Rayo MD CHEMISTRY ORDERABLES Final Res ult INTERFACE SYSTEM Refer to clinic/hospital department * (ABNORMAL) CBC WITH DIFFERENTIAL (12/21/2005 4:32 AM CDT) WBC 9.1 4.8 - 10.8 K/ul INTERFACE SYSTEM RBC 2.86(L) 4.20 - 5.40 Mil/ul INTERFACE SYSTEM HEMOGLOBIN 8.5(L) 12.0 - 16.0 g/dL INTERFACE SYSTEM HEMATOCRIT 25.0(L) 36.0 - 46.0 % INTERFACE SYSTEM MCV 87.4 84.0 - 103.0 Fl INTERFACE SYSTEM MCH 29.7 27.0 - 34.0 pg INTERFACE SYSTEM MCHC 34.0 30.0 - 35.0 g/dL INTERFACE SYSTEM RDW 12.8 11.0 - 14.5 % INTERFACE SYSTEM PLATELETS 200 140 - 440 K/ul INTERFACE SYSTEM MPV 10.1 8.9 - 12.8 Fl INTERFACE SYSTEM NEUTROPHILS 74.9 42.2 - 75.2 % INTERFACE SYSTEM LYMPHOCYTES 13.5(L) 24.0 - 44.0 % INTERFACE SYSTEM MONOCYTES 11.1(H) 2.0 - 10.0 % INTERFA CE SYSTEM EOSINOPHILS 0.3 0.0 - 7.0 % INTERF ANTHONY SYSTEM BASOPHILS 0.2 0.0 - 1.0 % INTERFAC E SYSTEM NEUTROPHIL ABSOLUTE 6.8 2.0 - 8.0 K/uL INTERFACE SYSTEM LYMPHOCYTE ABSOLUTE 1.2 1.2 - 4.0 K/ul INTERFACE SYSTEM MONOCYTE ABSOLUTE 1.0(H) 0.1 - 0.6 K/ul INTERFACE SYSTEM EOSINOPHIL ABSOLUTE 0.0 0.0 - 0.7 K/ul INTERFACE SYSTEM BASOPHILS ABSOLUTE 0.0 0.0 - 0.2 K/ul INTERFACE SYSTEM PERIPHERAL BLOOD SMEAR REVIEW Automated Diff Automated Diff INTERFACE SYSTEM 12/21/2005 4:32 AM CDT Sesar Rayo MD HEMATOLOGY ORDERABLES Final Re sult Performing Organization Address [facility] Phone Number INTERFACE SYSTEM Refer to clinic/hospital department * (ABNORMAL) POC GLUCOSE (12/20/2005 8:52 PM CDT) GLUCOSE POC 112(H) 60 - 100 mg/dL INTERFACE SYSTEM 12/20/2005 8:52 PM CDT Sesar Rayo MD POINT OF CARE TESTING Final Re sult Performing Organization Address [facility] Phone Number INTERFACE SYSTEM Refer to clinic/hospital department * (ABNORMAL) POC GLUCOSE (12/20/2005 4:56 PM CDT) GLUCOSE POC 121(H) 60 - 100 mg/dL INTERFACE SYSTEM 12/20/2005 4:56 PM CDT Sesar Rayo MD POINT OF CARE TESTING Final Re sult Performing Organization Address [facility] Phone Number INTERFACE SYSTEM Refer to clinic/hospital department * (ABNORMAL) POC GLUCOSE (12/20/2005 12:06 PM CDT) GLUCOSE POC 127(H) 60 - 100 mg/dL INTERFACE SYSTEM 12/20/2005 12:0 6 PM CDT Sesar Rayo MD POINT OF CARE TESTING Final Re sult Performing Organization Address [facility] Phone Number INTERFACE SYSTEM Refer to clinic/hospital department * (ABNORMAL) POC GLUCOSE (12/20/2005 6:26 AM CDT) GLUCOSE POC 144(H) 60 - 100 mg/dL INTERFACE SYSTEM 12/20/2005 6:26 AM CDT Sesar Rayo MD POINT OF CARE TESTING Final Re sult Performing Organization Address [facility] Phone Number INTERFACE SYSTEM Refer to clinic/hospital department * (ABNORMAL) BASIC METABOLIC PANEL (12/20/2005 4:28 AM CDT) GLUCOSE 128(H) 70 - 110 mg/dL INTERFACE SYSTEM BUN 14 7 - 17 mg/dL INTERFACE SYSTEM CREATININE 0.7 0.7 - 1.2 mg/dL INTERFACE SYSTEM SODIUM 128(L) 136 - 145 mEq/L INTERFACE SYSTEM POTASSIUM 4.7 3.5 - 5.0 mEq/L INTERFACE SYSTEM CHLORIDE 95 95 - 110 mEq/L INTERFACE SYSTEM CO2 27 22 - 32 mmol/l INTERFACE SYSTEM ANION GAP 11 9 - 20 mEq/L INTERFACE SYSTEM OSMOLALITY, CALCULATED 269(L) 275 - 295 mOsm/Kg INTERFACE SYSTEM CALCIUM 7.9(L) 8.4 - 10.5 mg/dL INTERFACE SYSTEM 12/20/2005 4:28 AM CDT Sesar Rayo MD CHEMISTRY ORDERABLES Final Res ult Performing Organization Address [facility] Phone Number INTERFACE SYSTEM Refer to clinic/hospital department * (ABNORMAL) CBC WITH DIFFERENTIAL (12/20/2005 4:28 AM CDT) WBC 14.2(H) 4.8 - 10.8 K/ul INTERFACE SYSTEM RBC 3.17(L) 4.20 - 5.40 Mil/ul INTERFACE SYSTEM HEMOGLOBIN 9.3(L) 12.0 - 16.0 g/dL INTERFACE SYSTEM HEMATOCRIT 27.3(L) 36.0 - 46.0 % INTERFACE SYSTEM MCV 86.1 84.0 - 103.0 Fl INTERFACE SYSTEM MCH 29.3 27.0 - 34.0 pg INTERFACE SYSTEM MCHC 34.1 30.0 - 35.0 g/dL INTERFACE SYSTEM RDW 13.1 11.0 - 14.5 % INTERFACE SYSTEM PLATELETS 222 140 - 440 K/ul INTERFACE SYSTEM MPV 10.3 8.9 - 12.8 Fl INTERFACE SYSTEM NEUTROPHILS 72.3 42.2 - 75.2 % INTERFACE SYSTEM LYMPHOCYTES 14.3(L) 24.0 - 44.0 % INTERFACE SYSTEM MONOCYTES 13.1(H) 2.0 - 10.0 % INTERFA CE SYSTEM EOSINOPHILS 0.1 0.0 - 7.0 % INTERF ANTHONY SYSTEM BASOPHILS 0.2 0.0 - 1.0 % INTERFAC E SYSTEM NEUTROPHIL ABSOLUTE 10.3(H) 2.0 - 8.0 K/uL INTERFACE SYSTEM LYMPHOCYTE ABSOLUTE 2.0 1.2 - 4.0 K/ul INTERFACE SYSTEM MONOCYTE ABSOLUTE 1.9(H) 0.1 - 0.6 K/ul INTERFACE SYSTEM EOSINOPHIL ABSOLUTE 0.0 0.0 - 0.7 K/ul INTERFACE SYSTEM BASOPHILS ABSOLUTE 0.0 0.0 - 0.2 K/ul INTERFACE SYSTEM PERIPHERAL BLOOD SMEAR REVIEW Automated Diff Automated Diff INTERFACE SYSTEM 12/20/2005 4:28 AM CDT Sesar Rayo MD HEMATOLOGY ORDERABLES Final Re sult Performing Organization Address [facility] Phone Number INTERFACE SYSTEM Refer to clinic/hospital department * (ABNORMAL) POC GLUCOSE (12/19/2005 8:42 PM CDT) GLUCOSE POC 123(H) 60 - 100 mg/dL INTERFACE SYSTEM 12/19/2005 8:42 PM CDT Sesar Rayo MD POINT OF CARE TESTING Final Re sult Performing Organization Address [facility] de Phone Number INTERFACE SYSTEM Refer to clinic/hospital department * (ABNORMAL) POC GLUCOSE (12/19/2005 5:01 PM CDT) GLUCOSE POC 134(H) 60 - 100 mg/dL INTERFACE SYSTEM 12/19/2005 5:01 PM CDT Sesar Rayo MD POINT OF CARE TESTING Final Re sult Performing Organization Address [facility] de Phone Number INTERFACE SYSTEM Refer to clinic/hospital department * (ABNORMAL) POC GLUCOSE (12/19/2005 12:04 PM CDT) GLUCOSE POC 148(H) 60 - 100 mg/dL INTERFACE SYSTEM 12/19/2005 12:0 4 PM CDT Sesar Rayo MD POINT OF CARE TESTING Final Re sult Performing Organization Address [facility] de Phone Number INTERFACE SYSTEM Refer to clinic/hospital department * (ABNORMAL) POC GLUCOSE (12/19/2005 5:49 AM CDT) GLUCOSE POC 196(H) 60 - 100 mg/dL INTERFACE SYSTEM 12/19/2005 5:49 AM CDT Sesar Rayo MD POINT OF CARE TESTING Final Re sult Performing Organization Address [facility] Phone Number INTERFACE SYSTEM Refer to clinic/hospital department * (ABNORMAL) CBC WITHOUT DIFFERENTIAL (12/19/2005 4:31 AM CDT) WBC 20.4(H) 4.8 - 10.8 K/ul INTERFACE SYSTEM RBC 3.99(L) 4.20 - 5.40 Mil/ul INTERFACE SYSTEM HEMOGLOBIN 11.7(L) 12.0 - 16.0 g/dL INTERFACE SYSTEM HEMATOCRIT 35.7(L) 36.0 - 46.0 % INTERFACE SYSTEM MCV 89.5 84.0 - 103.0 Fl INTERFACE SYSTEM MCH 29.3 27.0 - 34.0 pg INTERFACE SYSTEM MCHC 32.8 30.0 - 35.0 g/dL INTERFACE SYSTEM RDW 13.7 11.0 - 14.5 % INTERFACE SYSTEM PLATELETS 346 140 - 440 K/ul INTERFACE SYSTEM MPV 10.5 8.9 - 12.8 Fl INTERFACE SYSTEM NEUTROPHILS 85.0(H) 42.2 - 75.2 % INTERFACE SYSTEM LYMPHOCYTES 4.2(L) 24.0 - 44.0 % INTERFACE SYSTEM MONOCYTES 10.7(H) 2.0 - 10.0 % INTERFA CE SYSTEM BASOPHILS 0.1 0.0 - 1.0 % INTERFAC E SYSTEM NEUTROPHIL ABSOLUTE 17.3(H) 2.0 - 8.0 K/uL INTERFACE SYSTEM LYMPHOCYTE ABSOLUTE 0.9(L) 1.2 - 4.0 K/ul INTERFACE SYSTEM MONOCYTE ABSOLUTE 2.2(H) 0.1 - 0.6 K/ul INTERFACE SYSTEM BASOPHILS ABSOLUTE 0.0 0.0 - 0.2 K/ul INTERFACE SYSTEM HEM COMMENT Automated Diff Automated Diff INTERFACE SYSTEM 12/19/2005 4:31 AM CDT Sesar Rayo MD HEMATOLOGY ORDERABLES Final Re sult Performing Organization Address [facility] Phone Number INTERFACE SYSTEM Refer to clinic/hospital department * (ABNORMAL) BASIC METABOLIC PANEL (12/19/2005 4:31 AM CDT) GLUCOSE 175(H) 70 - 110 mg/dL INTERFACE SYSTEM BUN 19(H) 7 - 17 mg/dL INTERFACE SYSTEM CREATININE 1.4(H) 0.7 - 1.2 mg/dL INTERFACE SYSTEM SODIUM 135(L) 136 - 145 mEq/L INTERFACE SYSTEM POTASSIUM 4.7 3.5 - 5.0 mEq/L INTERFACE SYSTEM CHLORIDE 101 95 - 110 mEq/L INTERFACE SYSTEM CO2 26 22 - 32 mmol/l INTERFACE SYSTEM ANION GAP 13 9 - 20 mEq/L INTERFACE SYSTEM OSMOLALITY, CALCULATED 286 275 - 295 mOsm/Kg INTERFACE SYSTEM CALCIUM 8.0(L) 8.4 - 10.5 mg/dL INTERFACE SYSTEM 12/19/2005 4:31 AM CDT Sesar Rayo MD CHEMISTRY ORDERABLES Final Res ult Performing Organization Address [facility] Phone Number INTERFACE SYSTEM Refer to clinic/hospital department * (ABNORMAL) POC GLUCOSE (12/18/2005 9:27 PM CDT) GLUCOSE POC 230(H) 60 - 100 mg/dL INTERFACE SYSTEM 12/18/2005 9:27 PM CDT Sesar Rayo MD POINT OF CARE TESTING Final Re sult Performing Organization Address [facility] Phone Number INTERFACE SYSTEM Refer to clinic/hospital department * (ABNORMAL) POC GLUCOSE (12/18/2005 5:21 PM CDT) GLUCOSE POC 194(H) 60 - 100 mg/dL INTERFACE SYSTEM 12/18/2005 5:21 PM CDT us Sesar Rayo MD POINT OF CARE TESTING Final Jodee pollock Performing Organization Address [facility] Phone Number INTERFACE SYSTEM Refer to clinic/hospital department * (ABNORMAL) POC GLUCOSE (12/18/2005 12:31 PM CDT) GLUCOSE POC 137(H) 60 - 100 mg/dL INTERFACE SYSTEM 12/18/2005 12:3 1 PM CDT us Sesar Rayo MD POINT OF CARE TESTING German pollock Performing Organization Address [facility] Phone Number INTERFACE SYSTEM Refer to clinic/hospital department documented in this encounter Visit Diagnoses Diagnosis Localized osteoarthrosis not specified whether primary or secondary, lower leg- Primary documented in this encounter Care Teams Mower Sharpener Relationship Specialty Start Date End Date Non-Staff, Physician NO ADDRESS ON FILE PCP - General 08/30/13 documented as of this encounter
[2024-11-14 23:05] VITALS: BP 115/78; PULSE 128; RESP 24; TEMP 36.3; O2SAT 100; BMI 28.5
--- NOTE | 2024-11-14 23:27 | W.ED.WOUNDLC ---
HPI - Wound/Laceration General: Chief Complaint: Wound/Laceration Stated Complaint: Pain Arounf Surgical Site Time Seen by Provider: 11/14/24 23:22 History of Present Illness: 74-year-old female with a history of hypertension and diverticulosis with a fairly recent history of diverticulitis with perforation and she had been left open for some time and then had an ostomy placed who presents the emergency room with nausea and vomiting and generalized abdominal pain that started this afternoon. No known fevers. No altered mental status. She is tachycardic on presentation. No dysuria. Related Data Previous Rx's ?Medication ?Instructions ?Recorded aspirin 81 mg tablet,delayed 81 mg PO DAILY #30 tabs 07/31/24 release metoprolol tartrate 25 mg tablet 25 mg PO BID@0900,2100 #60 tabs 07/31/24 Allergies Allergy/AdvReac Type Severity Reaction Status Date / Time morphine Allergy Unknown HIVES Verified 08/08/24 11:39 oxycodone Allergy Unknown HIVES Verified 08/08/24 11:39 Review of Systems Narrative: Constitutional symptoms: Negative except as documented in HPI. Skin symptoms: Negative except as documented in HPI. Eye symptoms: Negative except as documented in HPI. ENMT symptoms: Negative except as documented in HPI. Respiratory symptoms: Negative except as documented in HPI. Cardiovascular symptoms: Negative except as documented in HPI. Gastrointestinal symptoms: Negative except as documented in HPI. Genitourinary symptoms: Negative except as documented in HPI. Musculoskeletal symptoms: Negative except as documented in HPI. Neurologic symptoms: Negative except as documented in HPI. Psychiatric symptoms: Negative except as documented in HPI. Endocrine symptoms: Negative except as documented in HPI. PFSH ED PFSH: Medical History (Updated 11/15/24 @ 04:33 by Heaven Dean MD) Chronic neck and back pain Chronic nausea Encounter for long-term opiate analgesic use Hypertension Irritable bowel syndrome Spondylolisthesis, cervical region Surgical History History of cholecystectomy History of lumbar surgery History of carpal tunnel surgery History of knee replacement S/P rotator cuff repair History of hysterectomy Family History Other Cancer Social History Smoking and tobacco/nicotine status: never used tobacco/nicotine Second hand smoke exposure: No Alcohol intake: never Substance/Drug Use: never Household members: spouse Housing: House Physical Exam Narrative: EXAM NARRATIVE: General: Alert, patient appears in distress Skin: Warm, dry. Head: Normocephalic, atraumatic. Neck: Supple, trachea midline. Eye: Extraocular movements are intact. Ears, nose, mouth and throat: mucosa moist. Cardiovascular: Regular, tachycardic normal peripheral perfusion. Respiratory: Lungs are clear to auscultation, respirations are non-labored, breath sounds are equal, Symmetrical chest wall expansion. Gastrointestinal: Soft, ostomy in place, diffuse tenderness, Non distended Musculoskeletal: Normal ROM, no deformity. Neurological: Alert and oriented, No focal neurological deficit observed. Psychiatric: Cooperative, appropriate mood & affect. Course Vital Signs: Vital signs: Vital Signs Temperature 97.4 F L 11/14/24 23:05 Pulse Rate 103 H 11/15/24 04:23 Respiratory Rate 20 H 11/15/24 04:23 Blood Pressure 116/66 11/15/24 04:23 Pulse Oximetry 96 11/15/24 04:23 Oxygen Delivery Me thod Room Air 11/15/24 04:23 MDM - Wound/Laceration Medical Decision Making Medical decision making: Differential diagnosis for this patient with nausea and vomiting including but not limited to and based on the above HPI, review of systems and physical exam: Urinary tract infection. Appendicitis. Cholecystitis. Colitis. small bowel obstruction. crohn's flare. pancreatitis. gastritis. peptic ulcer. cyclic vomiting. Viral illness. Influenza. COVID. Orders placed to evaluate differential diagnosis based on the above differential, HPI and physical exam Lab Review: Laboratory results were reviewed and interpreted by myself the emergency room physician. Leukocytosis with white count 14,000. No anemia. No renal failure. Potassium is low at 2.9. Initial lactate is 2.9. This is come down some to 2.[address] of the abdomen pelvis with contrast: Some mild edema in the mesentery. Unclear etiology. Some wall thickening of urinary bladder which is likely secondary to the urinary tract infection that is documented above. This was reviewed and interpreted by myself the emergency room physician. I also reviewed the radiology report. I reviewed the patient's medical record. Reexamination: Patient seems to be doing a bit better. No increased work of breathing. Vomiting has ceased. She still mildly tachycardic. Consultation: I spoke with Dr. Griffith who is on-call for the hospitalist service who agrees to admission. Assessment and plan: Urinary tract infection Vomiting Sepsis Hypokalemia Dehydration -2.5 L normal saline bolus. Fluid volumes based on ideal body weight. -Broad-spectrum antibiotics were administered. Meropenem and Zyvox -Sepsis quality measures. -Lactic acid with a reflex was ordered. -Blood cultures were ordered. ?80 mg equivalents potassium chloride being administered -I discussed the patient with the hospitalist on-call who is admitting the patient. - Discussed findings and plan with patient. Answered any questions. - All laboratory values were reviewed and interpreted personally by myself, the ER physician - All imaging was reviewed and interpreted personally by myself, the ER physician. - Evaluation and treatment of this problem were appropriate in the emergency setting Critical Care: -I spent a total of >35 minutes of critical care time managing the patient, independent of any other practitioner. -The time involved in the performance of separately reportable procedures was not counted towards critical care time. Lab Data 11/15/24 01:00 11/15/24 01:00 Radiology Impressions Abdomen/Pelvis CT 11/15/24 02:28 IMPRESSION: 1. Postoperative changes. 2. Mild edema involving the mesentery within the right midabdomen. Exact etiology is uncertain. There may be a slightly thick-walled loop of adjacent small bowel although this is not definite. Recommend clinical correlation for the presence of a mild colitis. 3. Wall thickening involving the dome of the urinary bladder posteriorly at its interface with the suture line of the sigmoid colon. A definitive fistulous tract is not identified. Recommend clinical correlation. Further evaluation of the bladder wall thickening would be recommended. Laboratory Results WBC 14.31 10^3/uL (3.29-11.43) H 11/15/24 01:00 RBC 5.68 10^6/uL (3.85-5.65) H 11/15/24 01:00 Hgb 15.30 g/dL (11.27-16.99) 11/15/24 01:00 Hct 46.8 % (36-47) 11/15/24 01:00 MCV 82.4 fl (85-98) L 11/15/24 01:00 MCH 26.9 pg (27-33) L 11/15/24 01:00 MCHC 32.7 g/dL (30-55) 11/15/24 01:00 RDW 15.8 % (12.1-15.1) H 11/15/24 01:00 Plt Count 414 10^3/cmm (157-399) H 11/15/24 01:00 MPV 10.4 fL (7.4-10.4) 11/15/24 01:00 Neut % (Auto) 81.8 % 11/15/24 01:00 Lymph % (Auto) 9.0 % 11/15/24 01:00 [place] % (Auto) 8.3 % 11/15/24 01:00 Eos % (Auto) 0.1 % 11/15/24 01:00 Baso % (Auto) 0.4 % 11/15/24 01:00 Neut # (Auto) 11.70 10^3/uL (1.8-7.7) H 11/15/24 01:00 Lymph # (Auto) 1.3 10^3/uL (0.8-4.8) 11/15/24 01:00 [place] # (Auto) 1.2 10^3/uL (0.2-0.9) H 11/15/24 01:00 Eos # (Auto) 0.0 10^3/uL (0.0-0.8) 11/15/24 01:00 Baso # (Auto) 0.1 10^3/uL (0.0-0.1) 11/15/24 01:00 Nucleated RBC % (auto) 0 % 11/15/24 01:00 Nucleated RBCs # 0.0 /100WBC 11/15/24 01:00 Sodium 135 mmol/L (136-145) L 11/15/24 01:00 Potassium 2.9 mmol/L (3.5-5.1) L 11/15/24 01:00 Chloride 90 mmol/L (98-107) L 11/15/24 01:00 Carbon Dioxide 13 mmol/L (22-29) L 11/15/24 01:00 Anion Gap 34.9 (5-19) H 11/15/24 01:00 BUN 2 mg/dL (8-23) L 11/15/24 01:00 Creatinine 0.5 mg/dL (0.5-0.9) 11/15/24 01:00 GFR Calculation Not Reportable 11/15/24 01:00 Glucose 124 mg/dL (65-115) H 11/15/24 01:00 Calculated Osmolality 278 mOsm/kg (285-295) L 11/15/24 01:00 Lactic Acid 2.9 mmol/L (0.5-2.2) H 11/15/24 01:00 Lactic Acid (Sepsis) 2.2 mmol/L (0.5-2.2) 11/15/24 03:15 Calcium 9.6 mg/dL (8.5-10.5) 11/15/24 01:00 Total Bilirubin 0.6 mg/dL (0.15-1.2) 11/15/24 01:00 AST 19 U/L (0-32) 11/15/24 01:00 ALT 9 U/L (0-33) 11/15/24 01:00 Alkaline Phosphatase 82 U/L (35-105) 11/15/24 01:00 Troponin T Baseline 16 ng/L (0-10) H 11/15/24 01:00 Troponin T 120 Minute 17.21 ng/L (0-10) H 11/15/24 03:15 Delta Troponin T 1.21 ABS# (0-10) 11/15/24 03:15 C-Reactive Protein 24.3 mg/L (0.0-4.9) H 11/15/24 01:00 Total Protein 6.9 g/dL (6.6-8.7) 11/15/24 01:00 Albumin 3.5 g/dL (3.5-5.2) 11/15/24 01:00 Globulin 3.4 g/dL (1.3-4.6) 11/15/24 01:00 Urine Color Yellow (Yellow) 11/15/24 02:15 Urine Appearance Cloudy (CLEAR) A 11/15/24 02:15 Urine pH 5.5 (5-7) 11/15/24 02:15 Ur Specific Challenge 1.022 (1.005-1.030) 11/15/24 02:15 Urine Protein 1+ (Negative) A 11/15/24 02:15 Urine Glucose (UA) Negative (Normal) 11/15/24 02:15 Urine Ketones 4+ (Negative) 11/15/24 02:15 Urine Blood Trace (Negative) A 11/15/24 02:15 Urine Nitrate Negative (Negative) 11/15/24 02:15 Urine Bilirubin Negative (Negative) 11/15/24 02:15 Urine Urobilinogen 1.0 mg/dL (Negative) 11/15/24 02:15 Ur Leukocyte Esterase 2+ (Negative) A 11/15/24 02:15 Urine RBC 3-5 /hpf (0-2) 11/15/24 02:15 Urine WBC >100 /hpf (0-5) H 11/15/24 02:15 Ur Squamous Epith Cells 6-10 /hpf (0-5) 11/15/24 02:15 Amorphous Sediment Not Reportable 11/15/24 02:15 Urine Bacteria None seen /hpf (NONE) 11/15/24 02:15 Hyaline Casts 64.52 /lpf 11/15/24 02:15 Urine Mucus 2+ /hpf 11/15/24 02:15 All radiology interpretation(s) finalized by discharge Discharge Plan Discharge Patient Disposition: Admitted As Inpatient Clinical Impression: Urinary tract infection, Sepsis, Hypokalemia, Dehydration Condition: Stable Coding Level of Care Code ED Quality Improvement Specialist for Vicky Downing
[2024-11-15] VITALS (10 sets, daily range): BP systolic 112–132; BP diastolic 63–81; PULSE 97–110; RESP 16–20; TEMP 36.3–36.6; O2SAT 95–100
[2024-11-15 01:16] LABS: Hematocrit 46.8 % (36-47); Hemoglobin 15.30 g/dL (11.27-16.99); Mean Corpuscular HGB Conc 32.7 g/dL (30-55); Mean Corpuscular Hemoglobin 26.9 pg (27-33); Mean Corpuscular Volume 82.4 fl (85-98); Nucleated Red Blood Cells % 0 %; Platelet Count 414 10^3/cmm (157-399); Red Blood Count 5.68 10^6/uL (3.85-5.65); White Blood Count 14.31 10^3/uL (3.29-11.43)
--- NOTE | 2024-11-15 01:23 | ECG_ITS ---
[facility] Test Date: 2024-11-15 Pat Name: Dianelys Reagan Department: Room: Gender: Female Procurement Cost Coordinator: : 1950 Requested By: Heaven Peck Order Number: [id number] Lamar MD: Nabeel Snell M.D. Measurements Intervals [place] Rate: 99 P: 67 TN: 162 QRS: -44 QRSD: 96 T: 48 QT: 388 QTc: 498 Interpretive Statements SINUS RHYTHM LEFT AXIS DEVIATION [QRS AXIS < -30] PATTERN CONSISTENT WITH PULMONARY DISEASE Compared to ECG 07/28/2024 15:33:04 Left-axis deviation now present Atrial flutter no longer present Left anterior fascicular block no longer present Myocardial infarct finding no longer present Electronically Signed On 11-15-2024 15:01:28 CDT by Nabeel Snell M.D. [email or web address]
[2024-11-15] MEDS: ondansetron 2 mg/ML SDV 2 mL 8 MG IVP ×2 (01:30→05:08)
[2024-11-15 01:32] LABS: Troponin(5th) Baseline 16 ng/L (0-10)
[2024-11-15 01:34] LABS: Alanine Aminotransferase 9 U/L (0-33); Albumin Level 3.5 g/dL (3.5-5.2); Alkaline Phosphatase 82 U/L (35-105); Anion Gap 34.9 (5-19); Aspartate Amino Transferase 19 U/L (0-32); Blood Urea Nitrogen 2 mg/dL (8-23); Calcium 9.6 mg/dL (8.5-10.5); Carbon Dioxide 13 mmol/L (22-29); Chloride 90 mmol/L (98-107); Creatinine Clr Calc Pharmacy 66.9305; Globulin 3.4 g/dL (1.3-4.6); Glucose 124 mg/dL (65-115); Osmolality Calculated 278 mOsm/kg (285-295); Sodium 135 mmol/L (136-145); Total Protein 6.9 g/dL (6.6-8.7)
[2024-11-15 01:35] LABS: Lactic Sepsis W/Reflex 2.9 mmol/L (0.5-2.2)
[2024-11-15 01:39] LABS: Potassium 2.9 mmol/L (3.5-5.1)
--- NOTE | 2024-11-15 02:28 | CTR_ITS ---
PROCEDURE INFORMATION: Exam: CT Abdomen And Pelvis With Contrast Exam date and time: 11/15/2024 2:55 AM Age: 74 years old Clinical indication: Abdominal pain; Generalized; Prior surgery; Surgery date: 6+ months; Surgery type: Complete hysterectomy, cholecystectomy, appendectomy TECHNIQUE: Imaging protocol: Computed tomography of the abdomen and pelvis with contrast. Radiation optimization: All CT scans at this facility use at least one of these dose optimization techniques: automated exposure control; mA and/or kV adjustment per patient size (includes targeted exams where dose is matched to clinical indication); or iterative reconstruction. Contrast material: OMNI 350; Contrast volume: 100 ml; Contrast route: INTRAVENOUS (IV); COMPARISON: CT abdomen pelvis w con* [id number] 07/25/2024 7:24 PM RADIATION DOSE METRICS: Total DLP (mGy-cm): 720.6 FINDINGS: Lungs: Lung bases are clear as visualized. Diaphragm: There may be a small hiatal hernia. Liver: There is diffuse fatty infiltration of the liver. The liver is otherwise normal. Gallbladder and biliary ducts: There are surgical clips within the gallbladder fossa. Pancreas: Normal. No ductal dilation. Spleen: Normal. No splenomegaly. Adrenal glands: Normal. No mass. Kidneys and ureters: Normal. No hydronephrosis. Stomach and bowel: There are postoperative changes status post partial colon resection with left midabdomen colostomy. No dilated loops of large or small bowel is appreciated. There is fat stranding within the mesentery of the right upper midabdomen. There may be minimal wall thickening involving the adjacent colon although this is not definite. No large or small bowel wall thickening is otherwise noted. Appendix: The appendix is not identified. Intraperitoneal space: No free air or free fluid is noted. Vasculature: Unremarkable. No abdominal aortic aneurysm. Lymph nodes: Unremarkable. No enlarged lymph nodes. Urinary bladder: There is wall thickening involving the dome of the urinary bladder posteriorly the dome is in intimate contact with the suture line of the sigmoid colon at this location. A definitive fistulous tract is not identified. However, recommend clinical correlation. Further evaluation with cystoscopy and/or fistula workup may be warranted based on clinical concern. Reproductive: The uterus is not identified. Bones/joints: Unremarkable. No acute fracture. Soft tissues: No acute soft tissue abnormalities are otherwise noted. CT/CT abdomen pelvis w con* [id number] IMPRESSION: 1. Postoperative changes. 2. Mild edema involving the mesentery within the right midabdomen. Exact etiology is uncertain. There may be a slightly thick-walled loop of adjacent small bowel although this is not definite. Recommend clinical correlation for the presence of a mild colitis. 3. Wall thickening involving the dome of the urinary bladder posteriorly at its interface with the suture line of the sigmoid colon. A definitive fistulous tract is not identified. Recommend clinical correlation. Further evaluation of the bladder wall thickening would be recommended.
[2024-11-15 02:36] LABS: Glucose Urine UA Negative (Normal); Nitrate Urine Negative (Negative); Specific Gravity, Urine 1.022 (1.005-1.030)
[2024-11-15 02:47] LABS: UA Slide Review UA Slide Review Perf
[2024-11-15] MEDS: iohexol 350 mg/mL 500 mL Btl (per mL) IV (02:58)
[2024-11-15 02:59] LABS: Reflex Lactate Order REFLEX LACTIC ORDERD
[2024-11-15] MEDS: linezolid premix 600 MG/300 ML PREMIX 300 MG IV (03:30)
[2024-11-15] MEDS: potassium chloride premix 100 ML 25 MEQ IV (03:37)
[2024-11-15 03:40] LABS: Troponin 5 2HR 17.21 ng/L (0-10); Troponin 5 2HR Delta 1.21 ABS# (0-10)
[2024-11-15 03:41] LABS: Lactic Acid level (Lactate) 2.2 mmol/L (0.5-2.2)
--- NOTE | 2024-11-15 05:27 | PM.HP ---
Providers/Chief Complaint Admitting Physician: Juan Griffith Primary Care Provider: DOMINIC Frost Chief Complaint: Pain Around Surgical Site History of Present Illness Dianelys Reagan is a 74 year old female patient with a history of complicated diverticulitis status-post surgical resection with ostomy (surgery performed at an outside facility in late September) presenting to the emergency department for evaluation of possible infection. The patient reports ongoing diarrhea and increased colostomy output with leakage around the appliance. Some diarrhea. Has history of C diff. No fever was noted at home, and the patient denies hematochezia, melena, or dysuria but does report finding some white material in the urine collection device. In the ED, CT abdomen/pelvis with IV contrast showed postoperative changes and mild mesenteric inflammation near the right mid-abdomen; there is concern for bladder wall thickening at the suture line, raising the question of mild colitis or possible fistulous communication, though no definite fistula was identified. Initial laboratory results reveal leukocytosis (WBC 14.3 K/?L), hypokalemia (K 2.9 mEq/L), metabolic acidosis (bicarbonate 13 mEq/L, anion gap 34.9), elevated CRP (24.3 mg/L), and lactic acid 2.9 mmol/L (repeat 2.2 mmol/L). Urinalysis shows >100 WBC, leukocyte esterase 2 +, negative nitrite, and hyaline casts. Antibiotics and IV fluids were initiated in the ED. The patient remains NPO except for ice chips while further imaging and evaluation are considered. Review of Systems Const: Denies: fever(s), chills, body aches or malaise ENMT: Denies: throat pain Card: Denies: chest pain, edema, pre-syncope or dyspnea on exertion Resp: Denies: dyspnea, productive cough, change in phlegm color or hemoptysis GI: Reports: abdominal pain, nausea, vomiting and diarrhea; Denies: constipation, hematochezia or melena : Denies: flank pain, urinary frequency or hematuria Musc: Denies: back pain, joint swelling or joint redness Skin/Breast: Denies: rash or new lesions Neuro: Denies: headache(s) or confusion Medications/Allergies Home Medications ?Medication ?Instructions ?Recorded ?Confirmed ?Last Taken ?Type aspirin 81 mg tablet,delayed 81 mg PO DAILY #30 tabs 07/31/24 08/08/24 Unknown Rx release metoprolol tartrate 25 mg tablet 25 mg PO BID@0900,2100 #60 tabs 07/31/24 08/08/24 Unknown Rx Allergies Allergy/AdvReac Type Severity Reaction Status Date / Time morphine Allergy Unknown HIVES Verified 08/08/24 11:39 oxycodone Allergy Unknown HIVES Verified 08/08/24 11:39 PFSH Acute PFSH: Medical History Chronic neck and back pain Chronic nausea Encounter for long-term opiate analgesic use Hypertension Irritable bowel syndrome Spondylolisthesis, cervical region Surgical History History of cholecystectomy History of lumbar surgery History of carpal tunnel surgery History of knee replacement S/P rotator cuff repair History of hysterectomy Family History Other Cancer Social History Smoking and tobacco/nicotine status: never used tobacco/nicotine Second hand smoke exposure: No Alcohol intake: never Substance/Drug Use: never Household members: spouse Housing: House Vitals/I&O/Wt Last Vital Signs Temp 97.4 F L 11/14/24 23:05 Pulse 103 H 11/15/24 04:23 Resp 20 H 11/15/24 04:23 BP 116/66 11/15/24 04:23 Pulse Ox 96 11/15/24 04:23 O2 Del Method Room Air 11/15/24 04:23 11/14/24 11/14/24 11/15/24 14:59 22:59 06:59 Intake Total 1999 Balance 1999 Weight last 48 hrs Weight 80.286 kg Physical Exam Narrative: Accompanied by female family member Const: COMMON NORMALS: patient oriented x3 and alert GENERAL APPEARANCE: cooperative ORIENTATION/CONSCIOUSNESS: Yes awake HENMT: COMMON NORMALS: oropharynx normal Neck/C-Spine: COMMON NORMALS: no JVD Resp: COMMON NORMALS: normal respiratory effort and clear to auscultation bilaterally AUSCULTATION: clear to auscultation bilaterally Cardio: COMMON NORMALS: no JVD, regular rhythm, S1 normal heart sound present, S2 normal heart sound present and No murmurs present (Cardio) RHYTHM: regular rhythm HEART SOUNDS: S1 normal heart sound present and S2 normal heart sound present GI: COMMON NORMALS: Soft to palpation PALPATION: Yes Soft to palpation and Yes Tenderness to palpation present (GI) (Mildly, worse left lower quadrant) OTHER: Midline incision with secondary closure, without surrounding cellulitis, no active drainage, gauze within the wound covered with ABD pad. Colostomy left lower quadrant. Extremity: COMMON NORMALS: no joint enlargement and no pedal edema Neuro: COMMON NORMALS: patient oriented x3 and moves all extremities SENSORIUM/ORIENTATION: Yes alert Skin: COMMON NORMALS: no rashes or lesions noted GENERAL SKIN EXAM: no rashes or lesions noted Quick SOFA Score: Respiratory Rate: 16 Blood Pressure: 113/78 [place] Coma Scale: 15 qSOFA Score: 0 If qSOFA score 2 or greater, continue: Blood Pressure Mean: 89 Bilirubin (mg/dl): 0.6 Platelets (x10?/ml): 414 Creatinine (mg/dl): 0.5 Evaluation: Current stage of sepsis: sepsis Sepsis stage criteria used: [facility] Sep-1 and Sepsis-3 Focused Exam: Vital signs: Temp Pulse Resp BP Pulse Ox O2 Del Method 11/15/24 05:40 97.6 F 110 H 16 113/78 100 11/15/24 05:33 100 18 126/73 98 11/15/24 04:23 103 H 20 H 116/66 96 Room Air 11/15/24 03:43 99 18 129/72 100 11/15/24 01:00 99 18 132/68 95 11/14/24 23:05 97.4 F L 128 H 24 H 115/78 100 Room Air Cardiovascular exam: regular rate, regular rhythm and tachycardia Capillary refill: < 3 Seconds Skin exam: no mottling Date exam was performed: 11/15/24 Time exam was performed: 05:53 Sepsis Screen No Definite Risk Today, 04:23 Respiratory Rate, (12 - 18) 16 breaths/min Today, 05:40 Blood Pressure 113/78 mmHg Today, 05:40 [place] Coma Scale Score 15 Today, 03:43 Quick SOFA Score 0 Today, 04:23 SOFA Score: [place] Coma Scale Score 15 Today, 03:43 Blood Pressure Mean 89 mmHg Today, 05:40 Total Bilirubin, (0.15-1.2) 0.6 mg/dL Today, 01:00 Platelet Count, (157-399) 414 10^3/cmm H Today, 01:00 Creatinine, (0.5-0.9) 0.5 mg/dL Today, 01:00 Data 11/15/24 01:00 11/15/24 01:00 Micro: Microbiology 11/15/24 01:06 Blood Culture - Preliminary Blood SPECIMEN COLLECTED 11/15/24 01:00 Blood Culture - Preliminary Blood SPECIMEN COLLECTED A&P Assessment and plan 1. Urinary tract infection: Urinary tract infection : UA with >100 WBC and positive leukocyte esterase; nitrite negative. Possible colovesical involvement vs primary UTI. - Continue antibiotics covering urinary pathogens. Reviewed vitals, CBC, CMP, lactic acid, UA, CT abdomen pelvis,. No obstructive uropathy. Reviewed ED provider note, discussed with ED provider. - Send urine culture and sensitivity -Possible sepsis with leukocytosis 14.31 sinus tachycardia 110, lactic acidosis 2.9, suspected urinary versus intra-abdominal source. Blood cultures have been sent. Received antibiotic. Without sign of sepsis or shock. - Monitor for urinary symptoms; assess need for repeat imaging depending on clinical course 2. Colitis: Postoperative intra-abdominal infection (complicated diverticulitis with possible colovesical involvement) : Recent colon resection with ostomy in September, complicated hospitalization with delayed closure, remaining open wound, C. difficile; CT shows mesenteric inflammation and bladder wall thickening near suture line?concern for smoldering infection or occult colovesical fistula. She denies gas in urine or feculent material. Some white debris was noted by her family. Elevated lactate and CRP support inflammatory process. - Continue broad-spectrum IV antibiotics, continue with Zosyn, monitor for risk of cytopenia, SJS, C. difficile recurrence - Keep patient NPO except ice chips; maintain IV fluids LR 100 mL/h, monitor for risk of fluid overload - Discussed with him plan repeat CT abdomen/pelvis with oral contrast to assess for leak or fistula. Based on results consider surgical consultation. - Requesting records to be obtained from [place] from September hospitalization - Monitor abdominal exam and ostomy output 3. Diarrhea: Diarrhea, evaluate for C. difficile recurrence : Patient reports persistent diarrhea and had prior documented C. difficile infection during previous hospitalization. - Obtain stool sample for C. difficile PCR/toxin assay - Implement contact precautions if positive 4. Hypokalemia: Serum potassium 2.9 mEq/L, likely secondary to gastrointestinal losses and poor intake. - Potassium being replaced. Recheck chemistry. Check magnesium. 5. High anion gap metabolic acidosis: Metabolic acidosis with elevated anion gap : Bicarbonate 13 mEq/L, anion gap 34.9 mEq/L; may relate to sepsis/lactate. 6. Skin irritation: Colostomy site skin irritation/leakage : Leakage around appliance causing skin breakdown; dressing changes twice daily. - Nursing to assist patient/family with ostomy appliance change and troubleshooting - Apply skin barrier products to reduce irritation - Wound-ostomy nurse consult for appliance fit and skin care - With skin reported peeling sometimes, I do not see active redness or peeling currently, however, in case of recurrence consider adhesive allergy? Plan: Leukocytosis : WBC 14.3 K/?L, consistent with infectious/inflammatory process. Requesting to confirm home medications PDMP PDMP Reviewed: Not Reviewed Attestations Medical Necessity Statement*: Admission over 2 midnights anticipated for assessment of management of UTI, colitis, possible sepsis, further assessment of possible complication after recent complicated diverticulitis with bowel resection, colostomy, C. difficile, additional comorbidities. and High MDM includes amount and/or complexity of data reviewed/ordered [ previous or external records, resulted lab(s)/test(s), ordered lab(s)/test(s) and other healthcare professional discussion] and described risk of complication, morbidity or mortality of management as documented Diagnoses Urinary tract infection N39.0 Colitis K52.9 Diarrhea R19.7 Hypokalemia E87.6 High anion gap metabolic acidosis E87.29 Skin irritation R23.8
--- NOTE | 2024-11-15 05:40 | CT_ITS ---
WS: [id number] CT ABDOMEN PELVIS TECHNIQUE: Noncontrast CT of the abdomen and pelvis with coronal and sagittal reformatted images. CLINICAL INFORMATION: assess for any leak or colovesical fistula PT WAS BROUGHT ORAL CONTRAST AT 8 AM. BUT WAS UNABLE TO COME DOWN TO CT UNTIL NOW SINCE SHE GOT AN NG TUBE AND US IV. PT WASN'T ABLE TO TOLERATE ORAL VERY WELL COMPARISON: CT 11/15/2024 and 07/25/2024 DLP: 796.[address] scans at [facility] use at least one of these dose optimization techniques: automated exposure control; mA and/or kV adjustment per patient size (includes targeted exams where dose is matched to clinical indication); or iterative reconstruction. FINDINGS: Prior postoperative changes subtotal colon resection LEFT mid abdomen with colostomy. Colostomy is patent. No evidence of bowel obstruction. Wall thickening involving the dome of the urinary bladder posteriorly similar to previous. This contacts the suture line of the sigmoid colon as previously described. A definite fistulous tract is not identified however there is somewhat poor opacification of the small bowel with oral contrast. No intr aluminal air within the urinary bladder which she would expect with a bowel fistula. Bladder is also opacified with IV contrast. No evidence of contrast leakage. Prior cholecystectomy. Enteric tube with tip in the stomach. Air-fluid level in the stomach. Lung bases are well aerated. Fatty atrophy of the pancreas. Splenic artery calcification. Adrenal glands are normal. No hydronephrosis in either kidney. Normal renal excretion on the delayed images. No filling defects in the bladder. CT/CT abdomen pelvis con [id number] IMPRESSION: 1. Somewhat poor contrast opacification of the bowel loops in the pelvis altho ugh no evidence of fistulous communication between the sigmoid colon and bladde r. 2. Bowel loops contact the dorsal dome of the bladder however no evidence of p ooling contrast or intraluminal air within the bladder. 3. Subtotal colon resection with colostomy. 4. Stable edema involving the RIGHT mid abdominal mesentery unchanged as previ ously described. Recommend correlation for mild colitis. 5. No other acute findings.
[2024-11-15 06:16] LABS: Magnesium 1.4 mg/dL (1.7-2.3)
--- NOTE | 2024-11-15 06:20 | ECG_ITS ---
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 Measurements Intervals Ingram Rate: 101 P: 87 VT: 168 QRS: -50 QRSD: 96 T: 99 QT: 375 QTc: 486 Interpretive Statements SINUS TACHYCARDIA LOW QRS VOLTAGE IN PRECORDIAL LEADS [QRS DEFLECTION < 1.0 mV IN CHEST LEADS] LEFT ANTERIOR FASCICULAR BLOCK [QRS AXIS <= -45, QR IN I, RS IN II] ANTEROSEPTAL MYOCARDIAL INFARCTION , PROBABLY OLD [40+ ms Q WAVE IN V1-V4] Compared to ECG 11/15/2024 02:25:36 Low QRS voltage now present Left anterior fascicular block now present Myocardial infarct finding now present Sinus rhythm no longer present Left-axis deviation no longer present Electronically Signed On 11-15-2024 15:01:13 CDT by Nabeel Snell M.D. [email or web address]
[2024-11-15] MEDS: potassium chloride premix 200 ML 50 MEQ IV (08:05)
[2024-11-15 08:36] LABS: Troponin 5 6HR 55.73 ng/L (0-10)
[2024-11-15] MEDS: iohexol 350 mg/mL 500 mL Btl (per mL) PO (08:39)
[2024-11-15 09:02] LABS: Troponin 5 6HR Delta 39.73 ng/L (0-12)
--- NOTE | 2024-11-15 10:28 | XRR_ITS ---
PROCEDURE INFORMATION: Exam: XR Chest Exam date and time: 11/15/2024 10:32 AM Age: 74 years old Clinical indication: Device placement; Ng tube; Additional info: Confirm ng taube placement TECHNIQUE: Imaging protocol: Radiologic exam of the chest. Views: 1 view. COMPARISON: CR XR chest 1V portable [id number] 09/07/2019 11:12 PM FINDINGS: Tubes, catheters and devices: There is a nasogastric tube with its tip overlying the fundus of the stomach. The proximal side-hole is at the GE junction. Advancement by 5-6 cm would be recommended. Lungs: Unremarkable. No consolidation. Pleural spaces: Unremarkable. No pleural effusion. No pneumothorax. Heart/Mediastinum: Heart size is normal. Bones/joints: Unremarkable. XR/XR chest 1V portable [id number] IMPRESSION: 1. Nasogastric tube as above.
--- NOTE | 2024-11-15 10:40 | P.MISC_ITS ---
Miscellaneous Note Note: Full consult note to follow. 74yo female s/p multiple abdominal surge afsaneh for diverticulitis. Now with an end colostomy. Documentation not available for my review. Hospitalist concerned about sepsis. CT fairly unremarkable. Radiology unable to rule out colovesical fistula. Since she is a complicated postoperative patient with a possible enterovesical fistula, recommend transfer to higher level of care so that she can be evaluated by her surgeon.
--- NOTE | 2024-11-15 10:41 | PM.CONSULT ---
Providers/Reason For Consult Consulting Physician/Specialty*: Dr. Valenzuela general surgery Reason for Consult*: Ileus colovesical fistula Attending Physician: Lyla Rogers MD Primary Care Provider: DOMINIC Frost History of Present Illness History of Present Illness Dianelys Reagan is a 74 year old female whom surgery was consulted to evaluate for abdominal pain and nausea. Patient recently had multiple surgeries at outside hospital for diverticulitis. Records not available for my review. It seems like patient ended up with an end colostomy. Ostomy is functional but leaks. Patient has been nauseated since discharge from outside hospital. CT scan was unrevealing but did demonstrate changes suspicious for colovesical fistula. Patient denies gas when urinating. Dark urine but no arcelia stool. Patient does have a mild leukocytosis abdomen is benign. Medications/Allergies Home Medications ?Medication ?Instructions ?Recorded ?Confirmed ?Last Taken ?Type apixaban 5 mg tablet (Eliquis) 5 mg PO BID 11/15/24 11/15/24 Unknown History atenolol 25 mg tablet 25 mg PO QAM 11/15/24 11/15/24 Unknown History bethanechol chloride 25 mg tablet 12.5 mg PO TID 11/15/24 11/15/24 Unknown History ondansetron 4 mg disintegrating See Rx Instructions .Route .COMPLEX 11/15/24 11/15/24 11/14/24 History tablet pantoprazole 40 mg tablet,delayed 40 mg PO BID 11/15/24 11/15/24 Unknown History release Allergies Allergy/AdvReac Type Severity Reaction Status Date / Time morphine Allergy Unknown HIVES Verified 08/08/24 11:39 oxycodone Allergy Unknown HIVES Verified 08/08/24 11:39 Current Medications Generic Name Dose Route Start Last Admin Trade Name Freq PRN Reason Stop Dose Admin Enoxaparin Sodium 40 mg 11/15/24 05:45 11/15/24 06:23 Enoxaparin 40 Mg/0.4 Ml Syringe SUBCUT 40 mg Q24H NATALIE Administration Lactated Ringer's 1,000 mls @ 100 mls/hr 11/15/24 05:45 11/15/24 06:22 Lactated Ringers IV 100 mls/hr .Q10H NATALIE Administration Potassium Chloride 200 mls @ 50 mls/hr 11/15/24 08:00 11/15/24 09:03 K-Bulmaro Premix IV 11/15/24 11:59 0 mls/hr Q4H NATALIE Infusion PFSH Acute PFSH: Medical History (Updated 11/18/24 @ 10:33 by Kane Valenzuela MD) Chronic neck and back pain Chronic nausea Encounter for long-term opiate analgesic use Hypertension Irritable bowel syndrome Spondylolisthesis, cervical region Surgical History (Updated 11/17/24 @ 00:01 by RASHARD Mitchell) History of cholecystectomy History of lumbar surgery History of carpal tunnel surgery History of knee replacement S/P rotator cuff repair History of hysterectomy Family History Other Cancer Social History Smoking and tobacco/nicotine status: never used tobacco/nicotine Second hand smoke exposure: No Alcohol intake: never Substance/Drug Use: never Household members: spouse Housing: House Vitals/I&O/Wt Last Vital Signs Temp 97.5 F L 11/15/24 07:14 Pulse 100 11/15/24 07:14 Resp 17 11/15/24 07:14 BP 118/68 11/15/24 07:14 Pulse Ox 99 11/15/24 07:14 O2 Del Method Room Air 11/15/24 07:14 11/14/24 11/15/24 11/15/24 22:59 06:59 14:59 Intake Total 2300 / 2300 448.333 / 448.333 Output Total 550 / 550 Balance 2300 / 2300 -101.667 / -101.667 Weight last 48 hrs Weight 175 lb 6 oz Weight 177 lb Physical Exam Narrative: Chest: Unlabored breathing room air. No lymphadenopathy. Heart: Regular rate and rhythm. Abdomen: Soft, nontender, nondistended. Ostomy functional, retracted Data 11/16/24 05:20 11/16/24 17:28 Micro: Microbiology 11/15/24 01:06 Blood Culture - Preliminary Blood SPECIMEN COLLECTED 11/15/24 01:00 Blood Culture - Preliminary Blood SPECIMEN COLLECTED A&P Assessment and plan 1. Ileus: 2. Colovesical fistula: Plan: 74-year-old female status post multiple surgeries at outside hospital for diverticulosis. She has an end colostomy. Patient complaining of nausea, leaking ostomy bag. She has been having intermittent abdominal pain. CT scan fairly unremarkable. Did show changes suspicious for colovesical fistula. Recommend transfer to [place] for workup of colovesical fistula and evaluation by primary surgeon. Continue antibiotics in the meantime. PDMP PDMP Reviewed: Not Reviewed Coding Level of Care Code 82371 Diagnoses Ileus K56.7 Colovesical fistula N32.1
--- NOTE | 2024-11-15 11:16 | USCV_ITS ---
Dianelys Reagan Age: 74 Gender: F : 1950 Exam Date: 11/15/2024 12:17 Ordering Phys: Lyla Rogers MD Technologist: AURELIA [place]am [place] [facility] [place]: Elevated Trop BP: 118 / 68 HR: Rhythm: Sinus Technical Quality: Adequate MEASUREMENTS (Male / Female) Normal Values 2D ECHO LV Diastolic Diameter PLAX 5.0 cm 4.2 - 5.9 / 3.9 - 5.3 cm IVS Diastolic Thickness 1.1 cm 0.6 - 1.0 / 0.6 - 0.9 cm IVS Systolic Thickness 1.6 cm LVPW Diastolic Thickness 1.1 cm 0.6 - 1.0 / 0.6 - 0.9 cm LVPW Systolic Thickness 1.2 cm LVOT Diameter 2.0 cm LV Ejection Fraction 2D Teich 58.0 % LV Ejection Fraction MOD 4C 55.9 % LV Ejection Fraction MOD 2C 57.2 % LV Ejection Fraction 2C AL 56.9 % LA Diameter 3.0 cm RA Systolic Volume 4C AL 30.8 ml RA Systolic Volume 4C MOD 28.9 ml LA Sys Volume AL 25.9 cm cubed LA Sys Volume Index AL 13.3 cm cubed/m squared Aorta at Sinotubular Diameter 2.5 cm IVC Diameter 2.1 cm M-MODE LA Ao Ratio MM 1.8 AV Cusp Separation MM 1.4 cm FINDINGS Left Ventricle Normal left ventricular size and systolic function, EF 57%. No regional wall motion abnormalities. Right Ventricle Normal right ventricular size and systolic function. Right Atrium The right atrium is normal in size. Left Atrium The left atrium is normal in size. Mitral Valve No gross abnormalities noted Aortic Valve No gross abnormalities noted Tricuspid Valve No gross abnormalities noted Pulmonic Valve No gross abnormalities noted Pericardium Normal pericardium without effusion. Aorta Normal ascending aorta dimension. IVC Normal inferior vena cava. CONCLUSIONS Normal left ventricular size and systolic function, EF 57%. No regional wall motion abnormalities. Normal cardiac chamber sizes There is no pericardial effusion. There are no intracardiac masses. Compared to the study from 07/28/2024, there is no significant change in the 2D findings Dr Merry Lopez MD [facility] (Electronically Signed) Final Date: 15 November 2024 19:08 S
[2024-11-15] MEDS: HYDROmorphone 0.5 MG/0.5 ML INJ 0.25 MG IVP (11:38)
[2024-11-15] MEDS: piperacillin-tazobactam 3.375 GM in sodium chloride 0.9% (plus) 50 ML IV ×2 (12:19→21:59)
--- NOTE | 2024-11-15 13:55 | PM.MISC ---
Miscellaneous Note Purpose of Documentation: Consulted general surgery today. Appreciate recommendations. They recommend transfer for colovesical fistula evaluation. Patient was unable to complete oral contrast secondary to nausea vomiting and unable to keep anything down. NG tube was placed this morning. 100 cc evacuated immediately however at the same time patient vomited around 400 cc in the vomiting bag. Abdomen was soft however slightly tender to palpation by umbilical region. Colostomy bag leaking around insertion site. Patient denies diarrhea today. Repeat CT abdomen obtained with inadequate oral contrast. It shows 1. Somewhat poor contrast opacification of the bowel loops in the pelvis although no evidence of fistulous communication between the sigmoid colon and bladder. 2. Bowel loops contact the dorsal dome of the bladder however no evidence of pooling contrast or intraluminal air within the bladder. 3. Subtotal colon resection with colostomy. 4. Stable edema involving the RIGHT mid abdominal mesentery unchanged as previously described. Recommend correlation for mild colitis. 5. No other acute findings. Delta troponin 39.73 at 6 hours. Most likely secondary to demand ischemia. Patient denies chest pain shortness of breath and does not have any cardiac history. I will wait to anticoagulate the patient. Have consulted cardiology for input. Patient states that she has a high bleeding risk. We have requested records from [facility]. Will review them shortly. Overnight labs at admission reviewed leukocytosis 14,000, potassium 2.9. Patient currently on IV potassium. Lactic acid normalized this morning. Magnesium 1.4. Will replete. Continue on Zosyn. I will add vancomycin. Check repeat labs now CBC, CMP, mag, phosphorus I will call [facility] to discuss with patient's surgeon there.
[2024-11-15] MEDS: magnesium sulfate premix 4 GM/100 ML PREMIX IV (15:24)
[2024-11-15] MEDS: phenol oral Spray 177 mL 3 SPRAY MUCOUS MEM (15:26)
--- NOTE | 2024-11-15 16:01 | PC.PHAR ---
Patient states she takes Zofran but nothing else. Patient states her son takes care of her medication . I listed the last fills on the most recent medications filled .
[2024-11-15 16:22] LABS: Hematocrit 44.7 % (36-47); Hemoglobin 13.70 g/dL (11.27-16.99); Mean Corpuscular HGB Conc 30.6 g/dL (30-55); Mean Corpuscular Hemoglobin 26.9 pg (27-33); Mean Corpuscular Volume 87.6 fl (85-98); Nucleated Red Blood Cells % 0 %; Platelet Count 324 10^3/cmm (157-399); Red Blood Count 5.10 10^6/uL (3.85-5.65); White Blood Count 11.08 10^3/uL (3.29-11.43)
[2024-11-15 16:45] LABS: Alanine Aminotransferase 8 U/L (0-33); Albumin Level 3.1 g/dL (3.5-5.2); Alkaline Phosphatase 69 U/L (35-105); Anion Gap 27.3 (5-19); Aspartate Amino Transferase 14 U/L (0-32); Blood Urea Nitrogen 2 mg/dL (8-23); Calcium 8.9 mg/dL (8.5-10.5); Carbon Dioxide 16 mmol/L (22-29); Chloride 95 mmol/L (98-107); Creatinine Clr Calc Pharmacy 66.6390; Globulin 3.5 g/dL (1.3-4.6); Glucose 112 mg/dL (65-115); Magnesium 1.5 mg/dL (1.7-2.3); Osmolality Calculated 277 mOsm/kg (285-295); Potassium 3.3 mmol/L (3.5-5.1); Sodium 135 mmol/L (136-145); Total Protein 6.6 g/dL (6.6-8.7)
--- NOTE | 2024-11-15 17:17 | PM.CONSULT ---
Providers/Reason For Consult Consulting Physician/Specialty*: STACY Lopez MD/cardiology Reason for Consult*: Patient with sepsis and elevated troponin T Requesting Physician: Dr. Rogers Attending Physician: Lyla Rogers MD Primary Care Provider: DOMINIC Frost History of Present Illness History of Present Illness Dianelys Reagan is a 74 year old female who is admitted to hospital with features of colitis and UTI. She was found to have elevated troponin T. Cardiology consult is requested for further cardiac evaluation and recommendations. This patient has a history of ulcerative colitis and pericolonic abscess. Recently she underwent resection and colostomy. She is presenting with nausea, vomiting and severe abdominal pain. She has no chest pain or chest tightness. No shortness of breath. She has a history of hypertension and dyslipidemia. She was in this hospital in July of this year with pericolonic abscess. During the hospital stay, she went to atrial fibrillation with rapid ventricular rate. She was started on a beta-mike. She spontaneously converted to sinus rhythm. Since she was anticipating surgery for sigmoid perforation, it was opted not to start her on oral anticoagulation. Apparently she has not had any documented recurrence of atrial fibrillation since then. Since hospital admission, she seems to be feeling better. The troponin T at the baseline was 16 with a 2-hour delta of 2 and 6-hour delta of 36. Patient was found to be in sinus tachycardia at the time of admission. The heart rate seems to be slowly getting back to normal Her mother had a myocardial infarction in her 60s. No other significant family history She has no history for any smoking abuse or alcohol abuse. Review of Systems Narrative: CONSTITUTIONAL: No fever or chills. EYES: No blurring of vision or other visual disturbances lately. ENT: No hoarseness of voice, auditory disturbances or sore throat. CARDIOVASCULAR: As mentioned above. RESPIRATORY: No significant cough. GASTROINTESTINAL: As mentioned above GENITOURINARY: Currently diagnosed with urosepsis INTEGUMENTARY: No skin rashes or history of skin cancer. NEURO: No transient ischemic attacks or amaurosis. PSYCHIATRIC: No history of psychosis or major depression. HEMATOLOGIC: No bleeding disorders or significant anemia. ENDOCRINE: No history of polyuria or polydipsia. MUSCULOSKELETAL: No recent joint pain or swelling. ALLERGY/IMMUNOLOGY: As mentioned above. Medications/Allergies Home Medications ?Medication ?Instructions ?Recorded ?Confirmed ?Last Taken ?Type apixaban 5 mg tablet (Eliquis) 5 mg PO BID 11/15/24 11/15/24 Unknown History atenolol 25 mg tablet 25 mg PO QAM 11/15/24 11/15/24 Unknown History bethanechol chloride 25 mg tablet 12.5 mg PO TID 11/15/24 11/15/24 Unknown History ondansetron 4 mg disintegrating See Rx Instructions .Route .COMPLEX 11/15/24 11/15/24 11/14/24 History tablet pantoprazole 40 mg tablet,delayed 40 mg PO BID 11/15/24 11/15/24 Unknown History release Allergies Allergy/AdvReac Type Severity Reaction Status Date / Time morphine Allergy Unknown HIVES Verified 08/08/24 11:39 oxycodone Allergy Unknown HIVES Verified 08/08/24 11:39 Current Medications Generic Name Dose Route Start Last Admin Trade Name Freq PRN Reason Stop Dose Admin Enoxaparin Sodium 40 mg 11/15/24 05:45 11/15/24 06:23 Enoxaparin 40 Mg/0.4 Ml Syringe SUBCUT 40 mg Q24H NATALIE Administration Hydromorphone HCl 0.25 mg 11/15/24 10:43 11/15/24 11:38 Hydromorphone 0.5 Mg/0.5 Ml Inj IVP 0.25 mg Q4H PRN Administration severe pain Piperacillin Sod/Tazobactam 50 mls @ 12.5 mls/hr 11/15/24 11:00 11/15/24 13:53 Sod 3.375 gm/ Sodium Chloride IV Infused Q8H NATALIE Infusion Protocol Lactated Ringer's 1,000 mls @ 100 mls/hr 11/15/24 05:45 11/15/24 15:26 Lactated Ringers IV 0 mls/hr .Q10H NATALIE Infusion Phenol 3 spray 11/15/24 10:44 11/15/24 15:26 Phenol Oral [place] 177 Ml MUCOUS MEM 3 spray Q2H PRN Administration SORE THROAT PFSH Acute PFSH: Medical History Chronic neck and back pain Chronic nausea Encounter for long-term opiate analgesic use Hypertension Irritable bowel syndrome Spondylolisthesis, cervical region Surgical History History of cholecystectomy History of lumbar surgery History of carpal tunnel surgery History of knee replacement S/P rotator cuff repair History of hysterectomy Family History Other Cancer Social History Smoking and tobacco/nicotine status: never used tobacco/nicotine Second hand smoke exposure: No Alcohol intake: never Substance/Drug Use: never Household members: spouse Housing: House Vitals/I&O/Wt Last Vital Signs Temp 97.8 F 11/15/24 15:29 Pulse 108 H 11/15/24 15:29 Resp 17 11/15/24 15:29 BP 128/63 11/15/24 15:29 Pulse Ox 97 11/15/24 15:29 O2 Del Method Room Air 11/15/24 15:29 11/15/24 11/15/24 11/15/24 06:59 14:59 22:59 Intake Total 2300 / 2300 928.333 / 928.333 422.500 / 1350.833 Output Total 550 / 550 Balance 2300 / 2300 378.333 / 378.333 422.500 / 800.833 Weight last 48 hrs Weight 175 lb 6 oz Weight 177 lb Physical Exam Narrative: GENERAL: The patient is alert and oriented times three. Not in any acute distress. HEENT: No significant pallor, icterus or lymphadenopathy.Oral cavity: There are no mucous membrane lesions. NECK: Trachea appears to be central. No masses noted. No JVD or thyromegaly appreciated. RESPIRATORY: Chest is symmetrical. No intercostals muscle retraction or any accessory muscle activation. There is no chest wall tenderness. Breath sounds are heard bilaterally. No rales or rhonchi heard. No evidence of any consolidation. BREASTS: Deferred. HEART: The heart sounds are normal. No S3 or S4. No significant murmurs. No pericardial rub ABDOMEN: Vague tenderness in the periumbilical region. Bowel sounds are normal. : Deferred. RECTAL: Deferred. LYMPHATIC: No lymphadenopathy noted in the neck. EXTREMITIES: No edema or cyanosis. No clubbing. MUSCULOSKELETAL: No acute joint deformities or swelling SKIN: There are no significant rashes or ecchymosis NEUROPSYCHIATRIC: The patient is alert and oriented x3. No focal motor deficit Data 11/16/24 05:20 11/16/24 05:20 Other Labs: Laboratory Last Values WBC 11.08 10^3/uL (3.29-11.43) 11/15/24 15:54 RBC 5.10 10^6/uL (3.85-5.65) 11/15/24 15:54 Hgb 13.70 g/dL (11.27-16.99) 11/15/24 15:54 Hct 44.7 % (36-47) 11/15/24 15:54 MCV 87.6 fl (85-98) D 11/15/24 15:54 MCH 26.9 pg (27-33) L 11/15/24 15:54 MCHC 30.6 g/dL (30-55) D 11/15/24 15:54 RDW 15.9 % (12.1-15.1) H 11/15/24 15:54 Plt Count 324 10^3/cmm (157-399) 11/15/24 15:54 MPV 10.3 fL (7.4-10.4) 11/15/24 15:54 Neut % (Auto) 76.1 % 11/15/24 15:54 Lymph % (Auto) 14.6 % 11/15/24 15:54 [place] % (Auto) 8.3 % 11/15/24 15:54 Eos % (Auto) 0.1 % 11/15/24 15:54 Baso % (Auto) 0.4 % 11/15/24 15:54 Neut # (Auto) 8.43 10^3/uL (1.8-7.7) H 11/15/24 15:54 Lymph # (Auto) 1.6 10^3/uL (0.8-4.8) 11/15/24 15:54 [place] # (Auto) 0.9 10^3/uL (0.2-0.9) 11/15/24 15:54 Eos # (Auto) 0.0 10^3/uL (0.0-0.8) 11/15/24 15:54 Baso # (Auto) 0.0 10^3/uL (0.0-0.1) 11/15/24 15:54 Nucleated RBC % (auto) 0 % 11/15/24 15:54 Nucleated RBCs # 0.0 /100WBC 11/15/24 15:54 Sodium 135 mmol/L (136-145) L 11/15/24 15:54 Potassium 3.3 mmol/L (3.5-5.1) L 11/15/24 15:54 Chloride 95 mmol/L (98-107) L 11/15/24 15:54 Carbon Dioxide 16 mmol/L (22-29) L 11/15/24 15:54 Anion Gap 27.3 (5-19) H 11/15/24 15:54 BUN 2 mg/dL (8-23) L 11/15/24 15:54 Creatinine 0.5 mg/dL (0.5-0.9) 11/15/24 15:54 GFR Calculation Not Reportable 11/15/24 15:54 Glucose 112 mg/dL (65-115) 11/15/24 15:54 Calculated Osmolality 277 mOsm/kg (285-295) L 11/15/24 15:54 Lactic Acid 2.9 mmol/L (0.5-2.2) H 11/15/24 01:00 Lactic Acid (Sepsis) 2.2 mmol/L (0.5-2.2) 11/15/24 03:15 Calcium 8.9 mg/dL (8.5-10.5) 11/15/24 15:54 Phosphorus 2.4 mg/dL (2.5-4.5) L 11/15/24 15:54 Magnesium 1.5 mg/dL (1.7-2.3) L 11/15/24 15:54 Total Bilirubin 0.5 mg/dL (0.15-1.2) 11/15/24 15:54 AST 14 U/L (0-32) 11/15/24 15:54 ALT 8 U/L (0-33) 11/15/24 15:54 Alkaline Phosphatase 69 U/L (35-105) 11/15/24 15:54 Troponin T Baseline 16 ng/L (0-10) H 11/15/24 01:00 Troponin T 120 Minute 17.21 ng/L (0-10) H 11/15/24 03:15 Delta Troponin T 1.21 ABS# (0-10) 11/15/24 03:15 Troponin T Hi Sens 6Hr 55.73 ng/L (0-10) H 11/15/24 07:52 Troponin T Hi Sens 6Hr Delta 39.73 ng/L (0-12) H* 11/15/24 07:52 C-Reactive Protein 24.3 mg/L (0.0-4.9) H 11/15/24 01:00 Total Protein 6.6 g/dL (6.6-8.7) 11/15/24 15:54 Albumin 3.1 g/dL (3.5-5.2) L 11/15/24 15:54 Globulin 3.5 g/dL (1.3-4.6) 11/15/24 15:54 Urine Color Yellow (Yellow) 11/15/24 02:15 Urine Appearance Cloudy (CLEAR) A 11/15/24 02:15 Urine pH 5.5 (5-7) 11/15/24 02:15 Ur Specific [place] 1.022 (1.005-1.030) 11/15/24 02:15 Urine Protein 1+ (Negative) A 11/15/24 02:15 Urine Glucose (UA) Negative (Normal) 11/15/24 02:15 Urine Ketones 4+ (Negative) 11/15/24 02:15 Urine Blood Trace (Negative) A 11/15/24 02:15 Urine Nitrate Negative (Negative) 11/15/24 02:15 Urine Bilirubin Negative (Negative) 11/15/24 02:15 Urine Urobilinogen 1.0 mg/dL (Negative) 11/15/24 02:15 Ur Leukocyte Esterase 2+ (Negative) A 11/15/24 02:15 Urine RBC 3-5 /hpf (0-2) 11/15/24 02:15 Urine WBC >100 /hpf (0-5) H 11/15/24 02:15 Ur Squamous Epith Cells 6-10 /hpf (0-5) 11/15/24 02:15 Amorphous Sediment Not Reportable 11/15/24 02:15 Urine Bacteria None seen /hpf (NONE) 11/15/24 02:15 Hyaline Casts 64.52 /lpf 11/15/24 02:15 Urine Mucus 2+ /hpf 11/15/24 02:15 Micro: Microbiology 11/15/24 01:06 Blood Culture - Preliminary Blood SPECIMEN COLLECTED 11/15/24 01:00 Blood Culture - Preliminary Blood SPECIMEN COLLECTED A&P Assessment and plan 1. Elevated troponin: Most likely this is a type II DE. Sinus tachycardia with sepsis could be a contributing factor. A type I DE cannot be excluded. EKG has no acute ST-T changes. 2. Atrial fibrillation/flutter: Patient is in sinus rhythm. She may be kept on the metoprolol. 3. Benign hypertension: Currently normotensive. Continue current medications. 4. Colitis: Management of the infection as per the primary attending 5. Dyslipidemia: Will do a lipid profile on the blood in the lab. I may start the patient on Lipitor 20 mg p.o. daily through NG tube Plan: Other problems UTI Hypokalemia A limited echocardiogram to evaluate LV function and rule out any other pathology I will hold off on any heparin at this point. Will repeat an EKG this evening. Repeat troponin T in the morning Based on the clinical progress, further recommendations will be made Thank you for the opportunity to evaluate this patient and make these recommendations PDMP PDMP Reviewed: Not Reviewed Consult Attestations Medical Necessity Statement: Patient requires continued hospital stay for close monitoring and further management Coding Level of Care Code 01733 Diagnoses Elevated troponin R79.89 Atrial fibrillation/flutter I48.91; I48.92 Benign hypertension I10 Colitis K52.9 Dyslipidemia E78.5
--- NOTE | 2024-11-15 19:03 | XRR_ITS ---
PROCEDURE INFORMATION: Exam: XR Chest Exam date and time: 11/15/2024 7:26 PM Age: 74 years old Clinical indication: Device placement; Picc; Additional info: Confirm place of picc TECHNIQUE: Imaging protocol: Radiologic exam of the chest. Views: 1 view. COMPARISON: CR XR chest 1V portable [id number] 11/15/2024 10:32 AM FINDINGS: Tubes, catheters and devices: Right PICC has been inserted with the tip projecting over the cavoatrial junction. Enteral tube is in satisfactory position. Lungs: Clear, symmetrically inflated lungs. Pleural spaces: No pleural effusion. No pneumothorax. Heart/Mediastinum: Cardiac silhouette is normal in size for technique. Bones/joints: Age appropriate. XR/XR chest 1V [id number] IMPRESSION: Right PICC is in satisfactory position.
[2024-11-15] MEDS: ATORVASTATIN 10 MG TABLET 20 MG PO (20:24)
[2024-11-15 22:03] LABS: Blood Urea Nitrogen 2 mg/dL (8-23); Calcium 8.6 mg/dL (8.5-10.5); Carbon Dioxide 13 mmol/L (22-29); Chloride 97 mmol/L (98-107); Cholesterol 182 mg/dL (0-200); Creatinine Clr Calc Pharmacy 66.6390; Glucose 102 mg/dL (65-115); HDL Cholesterol 37 mg/dL (60-100); Osmolality Calculated 274 mOsm/kg (285-295); Sodium 134 mmol/L (136-145); Triglycerides 93 mg/dL (0-150)
[2024-11-15 22:12] LABS: Anion Gap 27.7 (5-19); Potassium 3.7 mmol/L (3.5-5.1)
--- NOTE | 2024-11-15 22:19 | ECG_ITS ---
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 Measurements Intervals [place] Rate: 82 P: 61 [place]: 183 QRS: -38 QRSD: 93 T: 2 QT: 398 QTc: 466 Interpretive Statements SINUS RHYTHM LEFT AXIS DEVIATION [QRS AXIS < -30] LOW QRS VOLTAGE IN PRECORDIAL LEADS [QRS DEFLECTION < 1.0 mV IN CHEST LEADS] PATTERN CONSISTENT WITH PULMONARY DISEASE SEPTAL MYOCARDIAL INFARCTION , OF INDETERMINATE AGE [40+ ms Q WAVE IN V1/V2] Compared to ECG 11/15/2024 06:20:22 Left-axis deviation now present Sinus tachycardia no longer present Left anterior fascicular block no longer present Myocardial infarct finding still present Electronically Signed On 11-16-2024 00:22:40 CDT by Merry Lopez M.D. [email or web address]
[2024-11-16] VITALS: BP 116/69; PULSE 85; RESP 17; TEMP 36.6; O2SAT 98
[2024-11-16] MEDS: HYDROmorphone 0.5 MG/0.5 ML INJ 0.25 MG IVP ×3 (00:26→19:15)
[2024-11-16] MEDS: piperacillin-tazobactam 3.375 GM in sodium chloride 0.9% (plus) 50 ML IV ×3 (03:20→18:22)
[2024-11-16 04:00] VITALS: BP 122/63; PULSE 79; RESP 16; TEMP 36.7; O2SAT 95
[2024-11-16 05:41] LABS: Hematocrit 38.1 % (36-47); Hemoglobin 11.90 g/dL (11.27-16.99); Mean Corpuscular HGB Conc 31.2 g/dL (30-55); Mean Corpuscular Hemoglobin 26.6 pg (27-33); Mean Corpuscular Volume 85.2 fl (85-98); Nucleated Red Blood Cells % 0 %; Platelet Count 324 10^3/cmm (157-399); Red Blood Count 4.47 10^6/uL (3.85-5.65); White Blood Count 8.99 10^3/uL (3.29-11.43)
[2024-11-16 06:06] LABS: Alanine Aminotransferase < 5 U/L (0-33); Albumin Level 2.7 g/dL (3.5-5.2); Alkaline Phosphatase 60 U/L (35-105); Anion Gap 20.8 (5-19); Aspartate Amino Transferase 11 U/L (0-32); Blood Urea Nitrogen 2 mg/dL (8-23); Calcium 8.1 mg/dL (8.5-10.5); Carbon Dioxide 21 mmol/L (22-29); Chloride 98 mmol/L (98-107); Creatinine Clr Calc Pharmacy 67.2892; Globulin 2.8 g/dL (1.3-4.6); Glucose 100 mg/dL (65-115); Magnesium 2.2 mg/dL (1.7-2.3); Osmolality Calculated 280 mOsm/kg (285-295); Sodium 137 mmol/L (136-145); Total Protein 5.5 g/dL (6.6-8.7)
[2024-11-16 06:15] LABS: Potassium 2.8 mmol/L (3.5-5.1)
[2024-11-16] MEDS: lidocaine 1% 5 ML in potassium chloride premix 100 ML 26.25 ML IV (06:38)
--- NOTE | 2024-11-16 07:10 | PHA.VACGOAL ---
Vancomycin Goal - Goal Vancomycin Goal:: 15-20 mg/L Vancomycin Indication:: Other - Therapy Current therapy:: Pip/Tazo Day of therpy:: Day []of [] . Actual body weight (kg): 179 lb - Data Labs: WBC 8.99 10^3/uL (3.29-11.43) 11/16/24 05:20 RBC 4.47 10^6/uL (3.85-5.65) 11/16/24 05:20 Hgb 11.90 g/dL (11.27-16.99) 11/16/24 05:20 Hct 38.1 % (36-47) 11/16/24 05:20 MCV 85.2 fl (85-98) 11/16/24 05:20 MCH 26.6 pg (27-33) L 11/16/24 05:20 MCHC 31.2 g/dL (30-55) 11/16/24 05:20 RDW 16.2 % (12.1-15.1) H 11/16/24 05:20 Sodium 137 mmol/L (136-145) 11/16/24 05:20 Potassium 2.8 mmol/L (3.5-5.1) L* D 11/16/24 05:20 Chloride 98 mmol/L (98-107) 11/16/24 05:20 Carbon Dioxide 21 mmol/L (22-29) L 11/16/24 05:20 Anion Gap 20.8 (5-19) H 11/16/24 05:20 BUN 2 mg/dL (8-23) L 11/16/24 05:20 Creatinine 0.4 mg/dL (0.5-0.9) L 11/16/24 05:20 GFR Calculation Not Reportable 11/16/24 05:20 Last dialysis session:: N/A Treatment plan:: new consult Regimen:: LOADING DOSE OF 1500 MG X1 MAINTENANCE DOSE OF 1250 MG Q12H Follow up:: WILL CONTINUE TO MONITOR AND FOLLOW UP DAILY
[2024-11-16 07:29] VITALS: BP 130/82; PULSE 97; RESP 16; TEMP 36.4; O2SAT 94
--- NOTE | 2024-11-16 08:02 | PM.PN ---
Subjective Subjective: The patient is feeling better. She has some chest wall tenderness, possibly from the nausea and vomiting. No shortness of breath . No arrhythmias on the monitor Medications: Medication Review Details: Current Medications Acetaminophen (Acetaminophen 325 Mg Tablet) 650 mg PO Q6H PRN PRN Reason: Mild/Mod Pain Or Temp >/= 101 Atorvastatin Calcium (Atorvastatin 10 Mg Tablet) 20 mg PO BEDTIME [facility] Last Admin: 11/15/24 20:24 Dose: 20 mg Enoxaparin Sodium (Enoxaparin 40 Mg/0.4 Ml Syringe) 40 mg SUBCUT Q24H NATALIE Last Admin: 11/16/24 05:18 Dose: 40 mg Hydromorphone HCl (Hydromorphone 0.5 Mg/0.5 Ml Inj) 0.25 mg IVP Q4H PRN PRN Reason: severe pain Last Admin: 11/16/24 00:26 Dose: 0.25 mg Piperacillin Sod/Tazobactam (Sod 3.375 gm/ Sodium Chloride) 50 mls @ 12.5 mls/hr IV Q8H [facility]; Protocol Last Admin: 11/16/24 03:20 Dose: 12.5 mls/hr Lactated Ringer's (Lactated Ringers) 1,000 mls @ 100 mls/hr IV .Q10H [facility] Last Admin: 11/15/24 22:05 Dose: 100 mls/hr Vancomycin HCl (Vancocin) 1,250 mg in 250 mls @ 166.667 mls/hr IV Q12H [facility] Lidocaine HCl 5 ml/ Potassium (Chloride) 105 mls @ 26.25 mls/hr IV ONCE ONE Stop: 11/16/24 10:17 Last Admin: 11/16/24 06:38 Dose: 26.25 mls/hr Metoprolol Tartrate (Metoprolol Tartrate 25 Mg Tablet) 25 mg PO BID@0900,2100 [facility] Last Admin: 11/15/24 20:24 Dose: 25 mg Ondansetron HCl (Ondansetron 2 Mg/Ml Sdv 2 Ml) 4 mg IVP Q4H PRN PRN Reason: vomiting, or N/V if npo Phenol (Phenol Oral [place] 177 Ml) 3 spray MUCOUS MEM Q2H PRN PRN Reason: SORE THROAT Last Admin: 11/15/24 15:26 Dose: 3 spray Vitals/I&O/Wt Last Vital Signs Temp 97.5 F L 11/16/24 07:29 Pulse 97 11/16/24 07:29 Resp 16 11/16/24 07:29 BP 130/82 11/16/24 07:29 Pulse Ox 94 11/16/24 07:29 O2 Del Method Room Air 11/16/24 07:29 11/15/24 11/16/24 11/16/24 22:59 06:59 14:59 Intake Total 990.000 / 1918.333 201.667 / 2120.000 Output Total 1200 / 1750 900 / 900 Balance -210.000 / 168.333 201.667 / 370.000 -900 / -900 Weight last 48 hrs Weight 179 lb Weight 175 lb 6 oz Weight 177 lb Physical Exam Narrative: GENERAL: The patient is alert and oriented times three. Not in any acute distress. HEENT: No significant pallor, icterus or lymphadenopathy.Oral cavity: There are no mucous membrane lesions. NECK: Trachea appears to be central. No masses noted. No JVD or thyromegaly appreciated. RESPIRATORY: Chest is symmetrical. No intercostals muscle retraction or any accessory muscle activation. There is no chest wall tenderness. Breath sounds are heard bilaterally. No rales or rhonchi heard. No evidence of any consolidation. BREASTS: Deferred. HEART: The heart sounds are normal. No S3 or S4. No significant murmurs. No pericardial rub ABDOMEN: Vague tenderness in the periumbilical region. Bowel sounds are normal. NG suction tube in place : Deferred. RECTAL: Deferred. LYMPHATIC: No lymphadenopathy noted in the neck. EXTREMITIES: No edema or cyanosis. No clubbing. MUSCULOSKELETAL: No acute joint deformities or swelling SKIN: There are no significant rashes or ecchymosis NEUROPSYCHIATRIC: The patient is alert and oriented x3. No focal motor deficit Data 11/16/24 05:20 11/16/24 05:20 Other Labs: Laboratory Last Values WBC 8.99 10^3/uL (3.29-11.43) 11/16/24 05:20 RBC 4.47 10^6/uL (3.85-5.65) 11/16/24 05:20 Hgb 11.90 g/dL (11.27-16.99) 11/16/24 05:20 Hct 38.1 % (36-47) 11/16/24 05:20 MCV 85.2 fl (85-98) 11/16/24 05:20 MCH 26.6 pg (27-33) L 11/16/24 05:20 MCHC 31.2 g/dL (30-55) 11/16/24 05:20 RDW 16.2 % (12.1-15.1) H 11/16/24 05:20 Plt Count 324 10^3/cmm (157-399) 11/16/24 05:20 MPV 10.2 fL (7.4-10.4) 11/16/24 05:20 Neut % (Auto) 70.7 % 11/16/24 05:20 Lymph % (Auto) 17.5 % 11/16/24 05:20 [place] % (Auto) 9.8 % 11/16/24 05:20 Eos % (Auto) 1.0 % 11/16/24 05:20 Baso % (Auto) 0.7 % 11/16/24 05:20 Neut # (Auto) 6.36 10^3/uL (1.8-7.7) 11/16/24 05:20 Lymph # (Auto) 1.6 10^3/uL (0.8-4.8) 11/16/24 05:20 [place] # (Auto) 0.9 10^3/uL (0.2-0.9) 11/16/24 05:20 Eos # (Auto) 0.1 10^3/uL (0.0-0.8) 11/16/24 05:20 Baso # (Auto) 0.1 10^3/uL (0.0-0.1) 11/16/24 05:20 Nucleated RBC % (auto) 0 % 11/16/24 05:20 Nucleated RBCs # 0.0 /100WBC 11/16/24 05:20 Sodium 137 mmol/L (136-145) 11/16/24 05:20 Potassium 2.8 mmol/L (3.5-5.1) L* D 11/16/24 05:20 Chloride 98 mmol/L (98-107) 11/16/24 05:20 Carbon Dioxide 21 mmol/L (22-29) L 11/16/24 05:20 Anion Gap 20.8 (5-19) H 11/16/24 05:20 BUN 2 mg/dL (8-23) L 11/16/24 05:20 Creatinine 0.4 mg/dL (0.5-0.9) L 11/16/24 05:20 GFR Calculation Not Reportable 11/16/24 05:20 Glucose 100 mg/dL (65-115) 11/16/24 05:20 Calculated Osmolality 280 mOsm/kg (285-295) L 11/16/24 05:20 Lactic Acid 2.9 mmol/L (0.5-2.2) H 11/15/24 01:00 Lactic Acid (Sepsis) 2.2 mmol/L (0.5-2.2) 11/15/24 03:15 Calcium 8.1 mg/dL (8.5-10.5) L 11/16/24 05:20 Phosphorus 2.4 mg/dL (2.5-4.5) L 11/15/24 15:54 Magnesium 2.2 mg/dL (1.7-2.3) 11/16/24 05:20 Total Bilirubin 0.3 mg/dL (0.15-1.2) 11/16/24 05:20 AST 11 U/L (0-32) 11/16/24 05:20 ALT < 5 U/L (0-33) 11/16/24 05:20 Alkaline Phosphatase 60 U/L (35-105) 11/16/24 05:20 Troponin T Baseline 16 ng/L (0-10) H 11/15/24 01:00 Troponin T 120 Minute 17.21 ng/L (0-10) H 11/15/24 03:15 Delta Troponin T 1.21 ABS# (0-10) 11/15/24 03:15 Troponin T Hi Sens 6Hr 55.73 ng/L (0-10) H 11/15/24 07:52 Troponin T Hi Sens 6Hr Delta 39.73 ng/L (0-12) H* 11/15/24 07:52 C-Reactive Protein 24.3 mg/L (0.0-4.9) H 11/15/24 01:00 Total Protein 5.5 g/dL (6.6-8.7) L 11/16/24 05:20 Albumin 2.7 g/dL (3.5-5.2) L 11/16/24 05:20 Globulin 2.8 g/dL (1.3-4.6) 11/16/24 05:20 Triglycerides 93 mg/dL (0-150) 11/15/24 21:22 Cholesterol 182 mg/dL (0-200) 11/15/24 21:22 LDL Cholesterol, Calc 126 mg/dL (50-129) 11/15/24 21:22 HDL Cholesterol 37 mg/dL (60-100) L 11/15/24 21:22 LDL/HDL Ratio 3.41 RATIO (0.00-3.22) H 11/15/24 21:22 Cholesterol/HDL Ratio 4.92 mg/dL (0.0-4.40) H 11/15/24 21:22 Urine Color Yellow (Yellow) 11/15/24 02:15 Urine Appearance Cloudy (CLEAR) A 11/15/24 02:15 Urine pH 5.5 (5-7) 11/15/24 02:15 Ur Specific [place] 1.022 (1.005-1.030) 11/15/24 02:15 Urine Protein 1+ (Negative) A 11/15/24 02:15 Urine Glucose (UA) Negative (Normal) 11/15/24 02:15 Urine Ketones 4+ (Negative) 11/15/24 02:15 Urine Blood Trace (Negative) A 11/15/24 02:15 Urine Nitrate Negative (Negative) 11/15/24 02:15 Urine Bilirubin Negative (Negative) 11/15/24 02:15 Urine Urobilinogen 1.0 mg/dL (Negative) 11/15/24 02:15 Ur Leukocyte Esterase 2+ (Negative) A 11/15/24 02:15 Urine RBC 3-5 /hpf (0-2) 11/15/24 02:15 Urine WBC >100 /hpf (0-5) H 11/15/24 02:15 Ur Squamous Epith Cells 6-10 /hpf (0-5) 11/15/24 02:15 Amorphous Sediment Not Reportable 11/15/24 02:15 Urine Bacteria None seen /hpf (NONE) 11/15/24 02:15 Hyaline Casts 64.52 /lpf 11/15/24 02:15 Urine Mucus 2+ /hpf 11/15/24 02:15 Micro: Microbiology 11/15/24 02:15 Urine Culture - Preliminary Urine,Clean Catch Gram Negative Rods 11/15/24 01:06 Blood Culture - Preliminary Blood NEGATIVE TO DATE 11/15/24 01:00 Blood Culture - Preliminary Blood NEGATIVE TO DATE A&P Assessment and plan 1. Elevated troponin: Most likely this is a type II MD. Sinus tachycardia with sepsis could be a contributing factor. A type I MD cannot be excluded. The repeat EKG shows some nonspecific T wave changes. 2. Atrial fibrillation/flutter: Patient is in sinus rhythm. She may be kept on the metoprolol. 3. Benign hypertension: Currently normotensive. Continue current medications. 4. Colitis: Management of the infection as per the primary attending 5. Dyslipidemia: Will do a lipid profile on the blood in the lab. I may start the patient on Lipitor 20 mg p.o. daily through NG tube 6. Hypokalemia due to excessive gastrointestinal loss of potassium: Patient is on potassium supplement Plan: Potassium supplement Troponin T today If the troponin T keeps going up, it may suggest type I MD and we will start her on subcu Lovenox Discussed with Dr. Rogers Patient is in the process of being transferred to [facility] PDMP PDMP Reviewed: Not Reviewed Attestations Medical Necessity Statement*: Deferred to the primary Coding Level of Care Code Acute Code for Chg Fwd Diagnoses Elevated troponin R79.89 Atrial fibrillation/flutter I48.91; I48.92 Benign hypertension I10 Colitis K52.9 Dyslipidemia E78.5 Hypokalemia due to excessive gastrointestinal loss of potassium E87.6
--- NOTE | 2024-11-16 08:20 | P.PN_ITS ---
Subjective 2 Subjective: NGT 800cc abdomen soft, mildly ttp suprapubically ostomy viable, pink, some gas in bag UA 11/15 dirty Vitals/I&O/Wt Last Vital Signs Temp 97.5 F L 11/16/24 07:29 Pulse 97 11/16/24 07:29 Resp 16 11/16/24 07:29 BP 130/82 11/16/24 07:29 Pulse Ox 94 11/16/24 07:29 O2 Del Method Room Air 11/16/24 07:29 11/15/24 11/16/24 11/16/24 22:59 06:59 14:59 Intake Total 990.000 / 1918.333 201.667 / 2120.000 Output Total 1200 / 1750 900 / 900 Balance -210.000 / 168.333 201.667 / 370.000 -900 / -900 Weight last 48 hrs Weight 179 lb Weight 175 lb 6 oz Weight 177 lb Physical Exam 2 Narrative: rrr unlabored breathing ra abdomen soft, mildly ttp suprapubically, ostmoy viable, some gas in bag. NGT 800cc output Data 11/16/24 05:20 11/16/24 05:20 Micro: Microbiology 11/15/24 02:15 Urine Culture - Preliminary Urine,Clean Catch Gram Negative Rods 11/15/24 01:06 Blood Culture - Preliminary Blood NEGATIVE TO DATE 11/15/24 01:00 Blood Culture - Preliminary Blood NEGATIVE TO DATE A&P Assessment and plan 1. Ileus: Plan: 74yo female s/p multiple operations for diveriticulosis in [place]. CT suspiscious for colovesical fistula. Dirty UA. Continue abx. Awaiting transfer to [place] for workup by primary surgeon. Discussed with hospitalist. PDMP PDMP Reviewed: Not Reviewed Attestations 2 Medical Necessity Statement*: NA Coding Level of Care Code 23386 Diagnoses Ileus K56.7
--- NOTE | 2024-11-16 09:46 | PC.CHAP ---
Pastoral Care Encounter/Spiritual Assessment Type of Contact [] Declined pbx installer visit [] Patient/Family/Request visit [] Outpatient visit [] Follow-up visit [] Physician referral [] Code/Alert [x] Routine visit [] Staff referral [] Actively dying [] Patient sleeping [] Family support [] [] Out of room [] Palliative care [] [] Receiving care in room [] Pre-surgical visit [] Trauma [] Long length of stay [] ICU visit [] Other: Relational/Emotional Strength [x] Patient feels connected with others/family/visitors/staff [] Distress [] Loneliness/isolation [] Abandonment Spirituality of Patient [x] Person of Laura [] Attends Amish of their Laura [x] Believes in Prayer [] Reads Bible or Latter-Day materials [] There are Spiritual issues to be addressed Parking Inspector Interventions [x] Prayer [x] Active listening [] Non-anxious presence [x] Spiritual/emotional support [] Crisis/trauma care [] Spiritual counseling [] Bereavement support [] Provided bereavement packet [] Provided Bible/devotional materials [] Provided toy/stuffed animal, coloring book to patient or family member [] Provided Communion [] Anointing/[place] [] Salvation [x] Completed spiritual assessment [] Other: Impact on Illness or Injury [] Angry [] Fearful [] Anxious [] Often cries [] Exhaustion [] Unable to work [] Unable to attend uatsdin [] Unable to walk/stand [] Unable to read [] Unable to drive [] Unable to eat/drink [] Unable to sleep [] Unable to be with family [] Patient intubated [] Other: Summary Time spent with patient 5 min
--- NOTE | 2024-11-16 10:18 | P.TS_ITS ---
Transfer Summary Providers Date of Admission: 11/15/24 04:30 Date of Discharge/Transfer: 11/16/24 Attending Provider at Admission: Juan Griffith Attending Provider at Transfer: Lyla Rogers MD Primary Care Provider: DOMINIC Frost Transfer Plans: Anticipated date of transfer: 11/16/24 . Receiving Facility: [facility] . Diagnoses at Discharge Discharge Diagnosis 1. Ileus: Reason for Visit Reason for Visit Pain Around Surgical Site Brief History: Dianelys Reagan is a 74 year old female patient with a history of complicated diverticulitis status-post surgical resection with ostomy (surgery performed at an outside facility in late September) presenting to the emergency department for evaluation of possible infection. The patient reports ongoing diarrhea and increased colostomy output with leakage around the appliance. Some diarrhea. Has history of C diff. No fever was noted at home, and the patient denies hematochezia, melena, or dysuria but does report finding some white material in the urine collection device. In the ED, CT abdomen/pelvis with IV contrast showed postoperative changes and mild mesenteric inflammation near the right mid-abdomen; there is concern for bladder wall thickening at the suture line, raising the question of mild colitis or possible fistulous communication, though no definite fistula was identified. Initial laboratory results reveal leukocytosis (WBC 14.3 K/?L), hypokalemia (K 2.9 mEq/L), metabolic acidosis (bic arbonate 13 mEq/L, anion gap 34.9), elevated CRP (24.3 mg/L), and lactic acid 2.9 mmol/L (repeat 2.2 mmol/L). Urinalysis shows >100 WBC, leukocyte esterase 2 +, negative nitrite, and hyaline casts. Antibiotics and IV fluids were initiated in the ED. The patient remains NPO except for ice chips while further imaging and evaluation are considered. Hospital Course Hospital Course Patient was admitted for intractable nausea vomiting and abdominal pain right mid abdomen area. She is not tolerating anything per oral therefore NG tube was placed based on clinical symptoms. So far a liter has been removed since overnight. Records from [facility] were reviewed. General surgery was consulted. General surgery recommends transfer to higher level of care for colovesical fistula evaluation. Delta troponin elevated at 6 hours. Most likely secondary to demand ischemia. Cardiology consulted on the patient and do not recommend heparin drip at this time. Patient has severe electrolyte abnormalities and is persistently hypokalemic. Currently receiving K rider. Case was discussed with urology and hospitalist over the phone at [facility] by nighttime physician Dr. Murcia. Patient was accepted to hospitalist service. We are currently awaiting bed transfer. 11/16. Patient evaluated at the bedside. She is having leakage around her colostomy site with skin irritation present. NG tube is currently in place actively draining fluid. She has not vomited since NG tube has been placed. She is currently NPO. She still complains of continued abdominal pain. Physical Exam Narrative: Is NG tube in place actively draining dark greenish material. Const: COMMON NORMALS: patient oriented x3 and alert GENERAL APPEARANCE: cooperative ORIENTATION/CONSCIOUSNESS: Yes awake Resp: COMMON NORMALS: normal respiratory effort and clear to auscultation bilaterally AUSCULTATION: clear to auscultation bilaterally Cardio: COMMON NORMALS: regular rhythm, S1 normal heart sound present, S2 normal heart sound present and No murmurs present (Cardio) RHYTHM: regular rhythm HEART SOUNDS: S1 normal heart sound present and S2 normal heart sound present GI: COMMON NORMALS: Soft to palpation PALPATION: Yes Soft to palpation and Yes Tenderness to palpation present (GI) (Mildly, worse left lower quadrant) OTHER: Midline incision with secondary closure, without surrounding cellulitis, no active drainage, gauze within the wound covered with ABD pad. Colostomy left lower quadrant. Extremity: COMMON NORMALS: no pedal edema Neuro: COMMON NORMALS: patient oriented x3 and moves all extremities SENSORIUM/ORIENTATION: Yes alert TS Data Studies Completed and Pending Pending at discharge Category Date Time Status Blood Culture Stat Lab 11/14/24 23:23 Results C.Diff PCR (Lab) Routine Lab 11/15/24 05:40 Uncollected Urine Culture Stat Lab 11/15/24 02:15 Results Completed Studies During Hospitalization Category Date Time Status CT abdomen pelvis w con* [id number] Stat Cat Scan 11/15/24 02:[address] abdomen pelvis wo con [id number] Routine Cat Scan 11/15/24 05:40 Completed CXRP [XR chest 1V portable [id number]] Stat Exams 11/15/24 10:28 Completed XR chest 1V [id number] Routine Exams 11/15/24 19:03 Completed CV. echo limited [id number] Stat Ultrasound 11/15/24 11:16 Completed Laboratory Last Values WBC 8.99 10^3/uL (3.29-11.43) 11/16/24 05:20 RBC 4.47 10^6/uL (3.85-5.65) 11/16/24 05:20 Hgb 11.90 g/dL (11.27-16.99) 11/16/24 05:20 Hct 38.1 % (36-47) 11/16/24 05:20 MCV 85.2 fl (85-98) 11/16/24 05:20 MCH 26.6 pg (27-33) L 11/16/24 05:20 MCHC 31.2 g/dL (30-55) 11/16/24 05:20 RDW 16.2 % (12.1-15.1) H 11/16/24 05:20 Plt Count 324 10^3/cmm (157-399) 11/16/24 05:20 MPV 10.2 fL (7.4-10.4) 11/16/24 05:20 Neut % (Auto) 70.7 % 11/16/24 05:20 Lymph % (Auto) 17.5 % 11/16/24 05:20 [place] % (Auto) 9.8 % 11/16/24 05:20 Eos % (Auto) 1.0 % 11/16/24 05:20 Baso % (Auto) 0.7 % 11/16/24 05:20 Neut # (Auto) 6.36 10^3/uL (1.8-7.7) 11/16/24 05:20 Lymph # (Auto) 1.6 10^3/uL (0.8-4.8) 11/16/24 05:20 Stephenson # (Auto) 0.9 10^3/uL (0.2-0.9) 11/16/24 05:20 Eos # (Auto) 0.1 10^3/uL (0.0-0.8) 11/16/24 05:20 Baso # (Auto) 0.1 10^3/uL (0.0-0.1) 11/16/24 05:20 Nucleated RBC % (auto) 0 % 11/16/24 05:20 Nucleated RBCs # 0.0 /100WBC 11/16/24 05:20 Sodium 137 mmol/L (136-145) 11/16/24 05:20 Potassium 2.8 mmol/L (3.5-5.1) L* D 11/16/24 05:20 Chloride 98 mmol/L (98-107) 11/16/24 05:20 Carbon Dioxide 21 mmol/L (22-29) L 11/16/24 05:20 Anion Gap 20.8 (5-19) H 11/16/24 05:20 BUN 2 mg/dL (8-23) L 11/16/24 05:20 Creatinine 0.4 mg/dL (0.5-0.9) L 11/16/24 05:20 GFR Calculation Not Reportable 11/16/24 05:20 Glucose 100 mg/dL (65-115) 11/16/24 05:20 Calculated Osmolality 280 mOsm/kg (285-295) L 11/16/24 05:20 Lactic Acid 2.9 mmol/L (0.5-2.2) H 11/15/24 01:00 Lactic Acid (Sepsis) 2.2 mmol/L (0.5-2.2) 11/15/24 03:15 Calcium 8.1 mg/dL (8.5-10.5) L 11/16/24 05:20 Phosphorus 2.4 mg/dL (2.5-4.5) L 11/15/24 15:54 Magnesium 2.2 mg/dL (1.7-2.3) 11/16/24 05:20 Total Bilirubin 0.3 mg/dL (0.15-1.2) 11/16/24 05:20 AST 11 U/L (0-32) 11/16/24 05:20 ALT < 5 U/L (0-33) 11/16/24 05:20 Alkaline Phosphatase 60 U/L (35-105) 11/16/24 05:20 Troponin T Baseline 16 ng/L (0-10) H 11/15/24 01:00 Troponin T 120 Minute 17.21 ng/L (0-10) H 11/15/24 03:15 Delta Troponin T 1.21 ABS# (0-10) 11/15/24 03:15 Troponin T Hi Sens 6Hr 55.73 ng/L (0-10) H 11/15/24 07:52 Troponin T Hi Sens 6Hr Delta 39.73 ng/L (0-12) H* 11/15/24 07:52 C-Reactive Protein 24.3 mg/L (0.0-4.9) H 11/15/24 01:00 Total Protein 5.5 g/dL (6.6-8.7) L 11/16/24 05:20 Albumin 2.7 g/dL (3.5-5.2) L 11/16/24 05:20 Globulin 2.8 g/dL (1.3-4.6) 11/16/24 05:20 Triglycerides 93 mg/dL (0-150) 11/15/24 21:22 Cholesterol 182 mg/dL (0-200) 11/15/24 21:22 LDL Cholesterol, Calc 126 mg/dL (50-129) 11/15/24 21:22 HDL Cholesterol 37 mg/dL (60-100) L 11/15/24 21:22 LDL/HDL Ratio 3.41 RATIO (0.00-3.22) H 11/15/24 21:22 Cholesterol/HDL Ratio 4.92 mg/dL (0.0-4.40) H 11/15/24 21:22 Urine Color Yellow (Yellow) 11/15/24 02:15 Urine Appearance Cloudy (CLEAR) A 11/15/24 02:15 Urine pH 5.5 (5-7) 11/15/24 02:15 Ur Specific [place] 1.022 (1.005-1.030) 11/15/24 02:15 Urine Protein 1+ (Negative) A 11/15/24 02:15 Urine Glucose (UA) Negative (Normal) 11/15/24 02:15 Urine Ketones 4+ (Negative) 11/15/24 02:15 Urine Blood Trace (Negative) A 11/15/24 02:15 Urine Nitrate Negative (Negative) 11/15/24 02:15 Urine Bilirubin Negative (Negative) 11/15/24 02:15 Urine Urobilinogen 1.0 mg/dL (Negative) 11/15/24 02:15 Ur Leukocyte Esterase 2+ (Negative) A 11/15/24 02:15 Urine RBC 3-5 /hpf (0-2) 11/15/24 02:15 Urine WBC >100 /hpf (0-5) H 11/15/24 02:15 Ur Squamous Epith Cells 6-10 /hpf (0-5) 11/15/24 02:15 Amorphous Sediment Not Reportable 11/15/24 02:15 Urine Bacteria None seen /hpf (NONE) 11/15/24 02:15 Hyaline Casts 64.52 /lpf 11/15/24 02:15 Urine Mucus 2+ /hpf 11/15/24 02:15 Radiology Impressions Abdomen/Pelvis CT 11/15/24 05:40 IMPRESSION: 1. Somewhat poor contrast opacification of the bowel loops in the pelvis although no evidence of fistulous communication between the sigmoid colon and bladder. 2. Bowel loops contact the dorsal dome of the bladder however no evidence of pooling contrast or intraluminal air within the bladder. 3. Subtotal colon resection with colostomy. 4. Stable edema involving the RIGHT mid abdominal mesentery unchanged as previously described. Recommend correlation for mild colitis. 5. No other acute findings. Chest X-Ray 11/15/24 19:03 IMPRESSION: Right PICC is in satisfactory position. Recent Clincial Data Last Vital Signs Temp 97.5 F L 11/16/24 07:29 Pulse 97 11/16/24 07:29 Resp 16 11/16/24 07:29 BP 130/82 11/16/24 07:29 Pulse Ox 94 11/16/24 07:29 O2 Del Method Room Air 11/16/24 07:29 Vital Signs Temp Pulse Resp BP Pulse Ox O2 Del Method 11/16/24 07:29 97.5 F L 97 16 130/82 94 Room Air 11/16/24 04:00 98.1 F 79 16 122/63 95 Room Air 11/16/24 00:00 97.9 F 85 17 116/69 98 Room Air Intake & Output/Weight 11/14/24 11/15/24 11/16/24 11/17/24 06:59 06:59 06:59 06:59 Intake Total 2300 / 2300 2120.000 / 2120.000 50 / 50 Output Total 1750 / 1750 900 / 900 Balance 2300 / 2300 370.000 / 370.000 -850 / -850 Weight 79.549 kg 81.193 kg Vitals Last Vital Signs Temp 97.5 F L 11/16/24 07:29 Pulse 97 11/16/24 07:29 Resp 16 11/16/24 07:29 BP 130/82 11/16/24 07:29 Pulse Ox 94 11/16/24 07:29 O2 Del Method Room Air 11/16/24 07:29 TS Medications Medications Acetaminophen (Acetaminophen 325 Mg Tablet) 650 mg PO Q6H PRN PRN Reason: Mild/Mod Pain Or Temp >/= 101 Atorvastatin Calcium (Atorvastatin 10 Mg Tablet) 20 mg PO BEDTIME [facility] Last Admin: 11/15/24 20:24 Dose: 20 mg Enoxaparin Sodium (Enoxaparin 40 Mg/0.4 Ml Syringe) 40 mg SUBCUT Q24H NATALIE Last Admin: 11/16/24 05:18 Dose: 40 mg Hydromorphone HCl (Hydromorphone 0.5 Mg/0.5 Ml Inj) 0.25 mg IVP Q4H PRN PRN Reason: severe pain Last Admin: 11/16/24 08:48 Dose: 0.25 mg Piperacillin Sod/Tazobactam (Sod 3.375 gm/ Sodium Chloride) 50 mls @ 12.5 mls/hr IV Q8H [facility]; Protocol Last Infusion: 11/16/24 09:06 Dose: Infused Vancomycin HCl (Vancocin) 1,250 mg in 250 mls @ 166.667 mls/hr IV Q12H [facility] Last Admin: 11/16/24 08:49 Dose: 166.67 mls/hr Sodium Chloride (Sodium Chloride 0.9%) 1,000 mls @ 100 mls/hr IV .Q10H [facility] Last Admin: 11/16/24 08:50 Dose: 100 mls/hr Metoprolol Tartrate (Metoprolol Tartrate 25 Mg Tablet) 25 mg PO BID@0900,2100 [facility] Last Admin: 11/16/24 08:48 Dose: 25 mg Ondansetron HCl (Ondansetron 2 Mg/Ml Sdv 2 Ml) 4 mg IVP Q4H PRN PRN Reason: vomiting, or N/V if npo Phenol (Phenol Oral [place] 177 Ml) 3 spray MUCOUS MEM Q2H PRN PRN Reason: SORE THROAT Last Admin: 11/15/24 15:26 Dose: 3 spray Discontinued Medications Sodium Chloride (Sodium Chloride 0.9%) 1,000 mls @ 999 mls/hr IV .Q1H1M ONE Stop: 11/15/24 00:26 Last Infusion: 11/15/24 02:30 Dose: Infused Sodium Chloride (Sodium Chloride 0.9%) 1,000 mls @ 999 mls/hr IV .Q1H1M ONE Stop: 11/15/24 00:26 Last Infusion: 11/15/24 02:30 Dose: Infused Potassium Chloride (K-Bulmaro) 100 mls @ 25 mls/hr IV Q4H NATALIE Stop: 11/15/24 10:59 Last Infusion: 11/15/24 07:43 Dose: Infused Linezolid (Zyvox Premix) 600 mg in 300 mls @ 300 mls/hr IV ONCE ONE; Protocol Stop: 11/15/24 03:51 Last Infusion: 11/15/24 06:48 Dose: Infused Sodium Chloride (Sodium Chloride 0.9%) 500 mls @ 999 mls/hr IV .Q31M STA Stop: 11/15/24 05:04 Last Admin: 11/15/24 06:22 Dose: Not Given Lactated Ringer's (Lactated Ringers) 1,000 mls @ 100 mls/hr IV .Q10H [facility] Last Admin: 11/15/24 22:05 Dose: 100 mls/hr Potassium Chloride (K-Bulmaro Premix) 200 mls @ 50 mls/hr IV Q4H [facility] Stop: 11/15/24 11:59 Last Infusion: 11/16/24 01:35 Dose: Infused Lidocaine HCl 5 ml/ Potassium (Chloride) 205 mls @ 52.5 mls/hr IV ONCE ONE Stop: 11/15/24 14:59 Magnesium Sulfate (Magnesium Sulfate Premix) 4 gm in 100 mls @ 50 mls/hr IV ONCE ONE Stop: 11/15/24 15:57 Last Infusion: 11/15/24 22:55 Dose: Infused Vancomycin HCl (Vancocin) 1,500 mg in 300 mls @ 200 mls/hr IV ONCE ONE Stop: 11/15/24 16:14 Last Admin: 11/15/24 20:24 Dose: Not Given Vancomycin HCl (Vancocin) 1,500 mg in 300 mls @ 200 mls/hr IV ONCE ONE Stop: 11/15/24 21:59 Last Infusion: 11/15/24 22:05 Dose: Infused Lidocaine HCl 5 ml/ Potassium (Chloride) 105 mls @ 26.25 mls/hr IV ONCE ONE Stop: 11/16/24 10:17 Last Admin: 11/16/24 06:38 Dose: 26.25 mls/hr Iohexol (Iohexol 350 Mg/Ml 500 Ml Btl (Per Ml)) 0 ml IV ONCE ONE Stop: 11/15/24 02:59 Last Admin: 11/15/24 02:58 Dose: 100 ml Iohexol (Iohexol 350 Mg/Ml 500 Ml Btl (Per Ml)) 0 ml PO ONCE ONE Stop: 11/15/24 08:40 Last Admin: 11/15/24 08:39 Dose: 30 ml Lidocaine HCl (Lidocaine 1% 10 Ml Inj) 5 ml IV ONCE ONE Stop: 11/15/24 11:31 Last Admin: 11/15/24 12:20 Dose: 5 ml Meropenem (Meropenem 500 Mg Sdv) 500 mg IVP ONCE ONE; Protocol Stop: 11/15/24 02:53 Last Admin: 11/15/24 03:31 Dose: 500 mg Ondansetron HCl (Ondansetron 2 Mg/Ml Sdv 2 Ml) 8 mg IVP ONCE ONE Stop: 11/14/24 23:27 Last Admin: 11/15/24 02:27 Dose: Not Given Ondansetron HCl (Ondansetron 2 Mg/Ml Sdv 2 Ml) 8 mg IVP ONCE ONE Stop: 11/15/24 01:49 Last Admin: 11/15/24 01:30 Dose: 8 mg Ondansetron HCl (Ondansetron 2 Mg/Ml Sdv 2 Ml) 8 mg IVP ONCE ONE Stop: 11/15/24 04:53 Last Admin: 11/15/24 05:08 Dose: 8 mg Allergies morphine Allergy (Unknown, Verified 08/08/24 11:39) HIVES oxycodone Allergy (Unknown, Verified 08/08/24 11:39) HIVES Home Medications apixaban 5 mg tablet (Eliquis) 5 mg PO BID 11/15/24 [History Confirmed 11/15/24] atenolol 25 mg tablet 25 mg PO QAM 11/15/24 [History Confirmed 11/15/24] bethanechol chloride 25 mg tablet 12.5 mg PO TID 11/15/24 [History Confirmed 11/15/24] ondansetron 4 mg disintegrating tablet See Rx Instructions .Route .COMPLEX 11/15/24 [History Confirmed 11/15/24] pantoprazole 40 mg tablet,delayed release 40 mg PO BID 11/15/24 [History Confirmed 11/15/24] Discharge Plan Discharge Patient Disposition: Xfer Short-Term Hosp Condition: Stable Prescriptions: No Action atenolol 25 mg tablet 25 mg PO QAM bethanechol chloride 25 mg tablet 12.5 mg PO TID pantoprazole 40 mg tablet,delayed release (DR/EC) 40 mg PO BID ondansetron 4 mg tablet,disintegrating See Rx Instructions .ROUTE .COMPLEX Rx Instructions: INSERT 1 TABLET BY MOUTH/PER TUBE ROUTE EVERY 6 HOURS NEEDED FOR NAUSEA OR VOMITING (1ST LINE FOR NAUSEA/VOMITING) FOR UP TO 30 DAYS Eliquis 5 mg tablet 5 mg PO BID Referrals: Emanuel Lucia FNP [Primary Care Provider, Family Practice] Transfer Attestations Time Spent in Transfer Care: greater than 30 min Quality Metrics Clinical Quality Measures [ No reported AMI, CVA or VTE this stay] Coding Level of Care Code Acute Code for Chg Fwd Diagnoses Ileus K56.7
[2024-11-16 10:39] VITALS: BP 104/64; PULSE 73; RESP 15; TEMP 36.7; O2SAT 93
[2024-11-16 16:00] VITALS: BP 108/61; PULSE 94; RESP 15; TEMP 36.8; O2SAT 96
--- NOTE | 2024-11-16 17:16 | PC.NURSE ---
[facility] Al[facility]-
[2024-11-16] MEDS: metoclopramide 5 mg/mL SDV 2 mL IVP (18:19)
[2024-11-16 18:46] LABS: Blood Urea Nitrogen 2 mg/dL (8-23); Calcium 8.0 mg/dL (8.5-10.5); Carbon Dioxide 22 mmol/L (22-29); Chloride 101 mmol/L (98-107); Creatinine Clr Calc Pharmacy 67.2892; Glucose 93 mg/dL (65-115); Osmolality Calculated 288 mOsm/kg (285-295); Sodium 141 mmol/L (136-145)
[2024-11-16 18:49] LABS: Anion Gap 21.3 (5-19); Potassium 3.3 mmol/L (3.5-5.1)
[2024-11-16 20:00] VITALS: BP 108/61; PULSE 94; RESP 15; TEMP 36.8; O2SAT 96
--- NOTE | 2024-11-16 20:12 | PC.NURSE ---
Patients family was notified Lea Iglesias-Daughter in law of patient being transferred. Patient actually talked to family on the phone before transfer.
== END 2024-11-16 19:35 | disposition short-term general hospital (02) | DRG 391 ==
LOC: ER 11-15 04:35 → MEDSURG 11-15 04:55
PROVIDERS: Admitting Provider Internal Medicine; Emergency Provider Emergency Medicine; PCP Registered Nurse; Visit Provider Internal Medicine
DX: K52.9 Noninfective gastroenteritis and colitis, unspecified (principal); I21.A1 Myocardial infarction type 2; N39.0 Urinary tract infection, site not specified; K56.7 Ileus, unspecified; E87.20 Acidosis, unspecified; K94.09 Other complications of colostomy; E87.6 Hypokalemia; G89.29 Other chronic pain; I10 Essential (primary) hypertension; M43.12 Spondylolisthesis, cervical region; Z96.659 Presence of unspecified artificial knee joint; E78.5 Hyperlipidemia, unspecified; I48.91 Unspecified atrial fibrillation; Z79.01 Long term (current) use of anticoagulants; Z90.49 Acquired absence of other specified parts of digestive tract; Z93.3 Colostomy status
CPT/HCPCS: 36415; 36573; 36592; 71045; 74176; 74177; 80048; 80053; 80061; 81001; 83605; 83735; 84100; 84484; 85025; 86140; 87040; 87077; 87086; 87186; 93005; 93308; 96365; 96372; 96375; 96376; 99285; C1751; J1171; J1650; J2020; J2185; J2405; J2543; J2765; J3373; J3475; J3480; J7030; J7120; J9999

== ENCOUNTER 2025-01-04 21:08 | Inpatient (IN) | payer MEDICARE, SELFPAY ==
[2025-01-04] VITALS (7 sets, daily range): BP systolic 81–130; BP diastolic 54–65; PULSE 80–90; RESP 18–34; TEMP 36.5; O2SAT 94–100; BMI 25.9
--- NOTE | 2025-01-04 21:08 | ECG_ITS ---
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 Measurements Intervals [place] Rate: 84 P: 55 NM: 172 QRS: -44 QRSD: 94 T: 61 QT: 382 QTc: 454 Interpretive Statements SINUS RHYTHM LEFT AXIS DEVIATION [QRS AXIS < -30] LOW QRS VOLTAGE IN PRECORDIAL LEADS [QRS DEFLECTION < 1.0 mV IN CHEST LEADS] PATTERN CONSISTENT WITH PULMONARY DISEASE Compared to ECG 11/15/2024 22:19:36 Myocardial infarct finding no longer present Electronically Signed On 01-04-2025 23:49:35 CDT by Merry Lopez M.D. [email or web address]
--- OUTSIDE RECORDS SUMMARY | 2025-01-04 21:13 | XMS_ITS | Encounter Summary ---
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
--- OUTSIDE RECORDS SUMMARY | 2025-01-04 21:13 | XMS_ITS | Encounter Summary ---
Author Organization [employer] Address 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 Gender Identity Not on file Sexual [...] CBC WITH DIFFERENTIAL (09/29/2024 4:20 AM CDT) [facility] WBC 7.4 4.8 - 10.8 K/uL 09/29/2024 5:57 AM CDT [facility] RBC 3.39(L) 4.20 - 5.40 M/uL 09/29/2024 5:57 AM CDT [facility] HEMOGLOBIN 9.4(L) 12.0 - 16.0 g/dL 09/29/2024 5:57 AM CDT [facility] HEMATOCRIT 30.5(L) 36.0 - 46.0 % 09/29/2024 5:57 AM CDT [facility] MCV 90.0 84.0 - 103.0 fL 09/29/2024 5:57 AM CDT [facility] MCH 27.7 27.0 - 34.0 pg 09/29/2024 5:57 AM CDT [facility] MCHC 30.8 30.0 - 35.0 g/dL 09/29/2024 5:57 AM CDT [facility] PLATELETS 417 140 - 440 K/uL 09/[facility]24 5[facility] MPV 10.3 8.9 - 12.8 fL 09/29/2024 5:57 AM [facility] RDW 18.8(H) 11.0 - 14.5 % 09/29/2024 5:57 AM [facility] RDW-STDEV 61.7(H) 37.0 - 54.0 fL 09/29/2024 5:57 AM CDT [facility] NEUTROPHILS 56 42 - 75 % 09/29/2024 5:57 AM CDT [facility] LYMPHOCYTES 27 24 - 44 % 09/29/2024 5:57 [facility] MONOC[facility]TES 10 2 - 10 % 09/29/2024 5:57 AM CDT [facility] EOSINOPHILS 6 0 - 7 % 09/29/2024 5:57 AM CDT [facility] BASOPHILS 1 0 - 1 % 09/29/2024 5:57 AM CDT [facility] IMMATURE GRANULOCYTES 0 0 - 2 % 09/29/2024 5:57 AM CDT [facility] NEUTROPHIL ABSOLUTE 4.17 2.00 - 8.00 K/uL 09/29/2024 5:57 AM CDT [facility] LYMPHOCYTE ABSOLUTE 1.97 1.20 - 4.00 K/uL 09/29/2024 5:57 AM CDT [facility] MONOCYTE ABSOLUTE 0.71(H) 0.10 - 0.60 K/uL 09/29/2024 5:57 AM CDT [facility] EOSINOPHIL ABSOLUTE 0.45 0.00 - 0.70 K/uL 09/29/2024 5:57 AM CDT [facility] BASOPHILS ABSOLUTE 0.06 0.00 - 0.20 K/uL 09/29/2024 5:57 AM CDT [facility] IMMATURE GRANULOCYTES ABSOLUTE 0.03 0.00 - 0.10 K/uL 09/29/2024 5:57 AM CDT [facility] SMEAR REVIEWED: NA - Not Applicable 09/29/2024 5:57 AM T [facility] Blood Collection / Unknown 09/29/2024 4:20 AM CDT 09/29/2024 5:50 AM CDT Harry Reyes DO HEMATOLOGY ORDERABLES Final Result [facility] CLIA # [id number] [address] [place] [address] [place] [address] * (ABNORMAL) COMPREHENSIVE METABOLIC PANEL (09/29/2024 4:20 AM CDT) SODIUM 136 136 - 145 mmol/L 09/29/2024 6:22 AM CDT [facility] POTASSIUM 3.8 3.5 - 5.1 mmol/L 09/29/2024 6:22 AM [facility] CHLORIDE 99 98 - 107 mmol/L 09/29/2024 6:22 AM [facility] CO2 24 22 - 29 mmol/L 09/29/2024 6:22 AM [facility] CALCIUM 8.5(L) 8.8 - 10.2 mg/dL 09/29/2024 6:22 AM [facility] BUN 16 8 - 23 mg/dL 09/29/2024 6:22 AM [facility] CREATININE 0.41(L) 0.51 - 0.95 mg/dL 09/29/2024 6:22 AM [facility] Comment:The GFR result is no t clinically significant on patients <18 or >70 years of age. GLUCOSE 178(H) 74 - 99 mg/dL 09/29/2024 6:22 AM [facility] TOTAL PROTEIN 6.2(L) 6.4 - 8.3 g/dL 09/29/2024 6:22 AM [facility] ALBUMIN 3.0(L) 3.5 - 5.2 g/dL 09/29/2024 6:22 AM [facility] BILIRUBIN TOTAL 0.2 0.0 - 1.0 mg/dL 09/29/2024 6:22 AM [facility] ALKALINE PHOSPHATASE 71 35 - 104 U/L 09/29/2024 6:22 AM [facility] AST 32 10 - 35 U/L 09/29/2024 6:22 AM [facility] ALT 34 <=35 U/L 09/29/2024 6:22 AM [facility] GFR >60 mL/min/1. 73 sq meter 09/29/2024 6:22 AM [facility] Comment:eGFR calculated with 2020 CKD-EPI equation. Vegetarian diet, extremely high or low muscle mass, and may affect results. Cystatin C with Glomerular Filtration Rate is a suitable alternative for these patients. ANION GAP 13 9 - 20 mmol/L 09/29/2024 6:22 AM CDT [facility] Blood Collection / Unknown 09/29/2024 4:20 AM CDT 09/29/2024 5:50 AM CDT us Harry Reyes DO CHEMISTRY ORDERABLES Final R esult [facility] CLIA # [id number] [address] [address] documented in this encounter Visit Diagnoses Not on filedocumented in this encounter Additional Health Concerns Infection Onset Date Last Indicated Resolved Time R/O GI Pathogen 10/27/2024 10/27/2024 10/27/2024 1 :05 PM CDT C Diff Comment:11/17/24 This patient is within their 60 day window of a positive C diff, repeat testing is not recommended. This patient does require Enteric isolation for the duration of their admission. Patricia Hendrix RN, Infection Prevention 10/27/2024 11/17/2024 R/O GI Pathogen 11/16/2024 11/17/2024 11/17/2024 4 :19 AM CDT documented as of this encounter Care Teams Wildland Fire Operations Specialist Relationship Specialty Start Date End Date Non-Staff, Physician NO ADDRESS ON FILE PCP - General 08/30/13 documented as of this encounter
--- OUTSIDE RECORDS SUMMARY | 2025-01-04 21:13 | XMS_ITS | Encounter Summary ---
Author Organization [employer] Address 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 Gender Identity Not on file Sexual Orientation [...] T4 FREE (09/23/2024 4:30 AM CDT) Pathologist [facility] T4 FREE 1.39 0.81 - 1.70 ng/dL 09/23/2024 1:06 PM CDT [facility] LAB[facility] Blood Collection / Unknown 09/23/2024 4:30 AM CDT 09/23/2024 5:47 AM CDT External Provider [facility] CHEMISTRY ORDERABLES Final Result Performing Organization Address City/[facility]/ZIP Co de Phone Number [facility] CLIA # [id number] [address] [facility] [place] [address] * MANUAL DIFFERENTIAL (09/23/2024 4:30 AM CDT) Pathologist [facility] PLATELET EST. Increased 09/23/2024 6:18 AM CDT [facility] ANISOCYTOSIS 2+ /hpf 09/23/2024 6:18 AM CDT [facility] POIKILOCYTES 1+ /hpf 09/23/2024 6:18 AM CDT [facility] POLYCHROMASIA 1+ /hpf 09/23/2024 6:18 AM CDT [facility] Blood Collection / Unknown 09/23/2024 4:30 AM CDT 09/23/2024 5:47 AM CDT External Provider [facility] HEMATOLOGY ORDERABLES COM Final Result [facility] CLIA # [id number] [address] [address] * MAGNESIUM LEVEL (09/23/2024 4:30 AM CDT) [facility] MAGNESIUM 1.9 1.6 - 2.4 mg/dL 09/23/2024 6:23 AM CDT [facility] Blood Collection / Unknown 09/23/2024 4:30 AM CDT 09/23/2024 5:47 AM CDT us External Provider [facility] CHEMISTRY ORDERABLES Final Result [facility] CLIA # [id number] [address] [place] [id number] * (ABNORMAL) CBC WITH DIFFERENTIAL (09/23/2024 4:30 AM CDT) [facility] WBC 8.6 4.8 - 10.8 K/uL 09/23/2024 6:18 AM CDT [facility] RBC 3.07(L) 4.20 - 5.40 M/uL 09/23/2024 6:18 AM CDT [facility] HEMOGLOBIN 8.4(L) 12.0 - 16.0 g/dL 09/23/2024 6:18 AM CDT [facility] HEMATOCRIT 27.5(L) 36.0 - 46.0 % 09/23/2024 6:18 AM CDT [facility] MCV 89.6 84.0 - 103.0 fL 09/23/2024 6:18 AM CDT [facility] MCH 27.4 27.0 - 34.0 pg 09/23/2024 6:18 AM CDT [facility] MCHC 30.5 30.0 - 35.0 g/dL 09/23/2024 6:18 AM CDT [facility] PLATELETS 506(H) 140 - 440 K/uL 09/23/2024 6:18 AM [facility] MPV 10.1 8.9 - 12.8 fL 09/23/2024 6:18 AM [facility] RDW 20.5(H) 11.0 - 14.5 % 09/23/2024 6:18 AM [facility] RDW-STDEV 66.1(H) 37.0 - 54.0 fL 09/23/2024 6:18 AM [facility] NEUTROPHILS 63 42 - 75 % 09/23/2024 6:18 AM [facility] LYMPHOCYTES 20(L) 24 - 44 % 09/23/2024 6:18 AM [facility] MONOCYTES 10 2 - 10 % 09/23/2024 6:18 AM [facility] EOSINOPHILS 5 0 - 7 % 09/23/2024 6:18 AM [facility] BASOPHILS 1 0 - 1 % 09/23/2024 6:18 AM [facility] IMMATURE GRANULOCYTES 1 0 - 2 % 09/23/2024 6:18 AM [facility] NEUTROPHIL ABSOLUTE 5.44 2.00 - 8.00 K/uL 09/23/2024 6:18 AM [facility] LYMPHOCYTE ABSOLUTE 1.70 1.20 - 4.00 K/uL 09/23/2024 6:18 AM [facility] MONOCYTE ABSOLUTE 0.88(H) 0.10 - 0.60 K/uL 09/23/2024 6:18 AM [facility] EOSINOPHIL ABSOLUTE 0.41 0.00 - 0.70 K/uL 09/23/2024 6:18 AM [facility] BASOPHILS ABSOLUTE 0.07 0.00 - 0.20 K/uL 09/23/2024 6:18 AM [facility] IMMATURE GRANULOCYTES ABSOLUTE 0.08 0.00 - 0.10 K/uL 09/23/2024 6:18 AM [facility] SMEAR REVIEWED: SR - See Smear Review on Manual Diff. 09/23/2024 6:18 AM CDT [facility] Blood Collection / Unknown 09/23/2024 4:30 AM CDT 09/23/2024 5:47 AM CDT us External Provider [facility] HEMATOLOGY ORDERABLES Christiana hernandez Result [facility] CLIA # [id number] [address] [place] [address] [place] [address] * (ABNORMAL) BASIC METABOLIC PANEL (09/23/2024 4:30 AM CDT) SODIUM 138 136 - 145 mmol/L 09/23/2024 6:23 AM [facility] POTASSIUM 4.1 3.5 - 5.1 mmol/L 09/23/2024 6:23 AM [facility] CHLORIDE 101 98 - 107 mmol/L 09/23/2024 6:23 AM [facility] CO2 26 22 - 29 mmol/L 09/23/2024 6:23 AM [facility] CALCIUM 8.2(L) 8.8 - 10.2 mg/dL 09/23/2024 6:23 AM [facility] BUN 12 8 - 23 mg/dL 09/23/2024 6:23 AM [facility] CREATININE 0.54 0.51 - 0.95 mg/dL 09/23/2024 6:23 AM T [facility] Comment:The GFR result is no t clinically significant on patients <18 or >70 years of age. GLUCOSE 160(H) 74 - 99 mg/dL 09/23/2024 6:23 AM [facility] GFR >60 mL/min/1.7 3 sq meter 09/23/2024 6:23 AM [facility] Comment:eGFR calculated with 2020 CKD-EPI equation. Vegetarian diet, extremely high or low muscle mass, and may affect results. Cystatin C with Glomerular Filtration Rate is a suitable alternative for these patients. ANION GAP 11 9 - 20 mmol/L 09/23/2024 6:23 AM CDT [facility] [employer] [facility] Blood Collection / Unknown 09/23/2024 4:30 AM CDT 09/23/2024 5:47 AM CDT us External Provider [facility] CHEMISTRY ORDERABLES Final Result [facility] CLIA # [id number] [address] [address] documented in this encounter Visit Diagnoses Not [...] documented as of this encounter Care Teams Vegetable Trimmer Relationship Specialty Start Date End Date Non-Staff, Physician NO ADDRESS ON FILE PCP - General 08/30/13 documented as of this encounter
--- OUTSIDE RECORDS SUMMARY | 2025-01-04 21:13 | XMS_ITS | Encounter Summary ---
Author Organization [facility] Address [address] [place] [address] Care Team Providers Care Cad Specialist Name Role Phone Non-Staff, Physician Primary Care Provider Unava ilable Encounter Details Date Type Department Care Team (Latest Contact Info) Description 03/09/2000 Outpatient Historical [facility] Family Medicine- [place] [address] [place] [address] Gloria Sal NO ADDRESS ON FILE Unspecified internal derangement of knee (Primary Dx) Social History Tobacco Use Types Packs/Day Years Used Date Smoking Tobacco: Never Assessed Comments Unknown Sex and Gender Information Value Date Recorded Sex Assigned at Not on file 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
--- OUTSIDE RECORDS SUMMARY | 2025-01-04 21:13 | XMS_ITS | Encounter Summary ---
Author Organization [facility] Address [address] [place] [address] Care Team Providers Care Hydro Electric Station Operator Name Role Phone Non-Staff, Physician Primary Care Provider Unava ilable Encounter Details Date Type Department Care Team (Latest Contact Info) Description 01/13/2006 Outpatient Historical [facility] Orthopedics- 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
--- OUTSIDE RECORDS SUMMARY | 2025-01-04 21:13 | XMS_ITS | Encounter Summary ---
Author Organization [facility] Address [address] [place] [address] Care Team Providers Care Solar Energy Advisor Name Role Phone Non-Staff, Physician Primary Care Provider Unava ilable Encounter Details Date Type Department Care Team (Latest Contact Info) Description 09/27/2002 Outpatient Historical [facility] Family Medicine- [place] [address] [place] [address] Tereso Rees DO NO ADDRESS ON FILE HEADACHE (Primary Dx) Social History Tobacco Use Types Packs/Day Years Used Date Smoking Tobacco: Never Assessed Comments Unknown Sex and Gender Information Value Date Recorded Sex Assigned at Not on file 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
--- OUTSIDE RECORDS SUMMARY | 2025-01-04 21:13 | XMS_ITS | Encounter Summary ---
Author Organization [facility] Address [address] [place] [address] Care Team Providers Care Skimmer Scoop Operator Name Role Phone Non-Staff, Physician Primary Care Provider Unava ilable Encounter Details Date Type Department Care Team (Latest Contact Info) Description 01/17/2002 Outpatient Historical [facility] Family Medicine- [place] [address] [place] [address] Wanda Castro MD NO ADDRESS ON FILE MIGRAINE NOS W/O MENTN INTRACTABLE (Primary Dx); MENOPAUSAL DISORDER NOS Social History Tobacco Use Types Packs/Day Years Used Date Smoking Tobacco: Never Assessed Comments Unknown Sex and Gender Information Value Date Recorded Sex Assigned at Not on file 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
--- OUTSIDE RECORDS SUMMARY | 2025-01-04 21:13 | XMS_ITS | Encounter Summary ---
Author Organization [employer] [facility] Address [address] [place] [address] Care Team Providers Care Associate Entertainment Editor Name Role Phone Non-Staff, Physician Primary Care Provider Unava ilable Encounter Details Date Type Department Care Team (Latest Contact Info) Description 05/11/2000 Outpatient Historical [facility] Geraldo Kessler MD [address] [facility] [address] [place] [address] Lipoma of other specified sites (Primary Dx) Social History Tobacco Use Types Packs/Day Years Used Date Smoking Tobacco: Never Assessed Comments Unknown Sex and Gender Information Value Date Recorded Sex Assigned at Not on file 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
--- OUTSIDE RECORDS SUMMARY | 2025-01-04 21:13 | XMS_ITS | Encounter Summary ---
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
--- OUTSIDE RECORDS SUMMARY | 2025-01-04 21:13 | XMS_ITS | Encounter Summary ---
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
--- OUTSIDE RECORDS SUMMARY | 2025-01-04 21:13 | XMS_ITS | Encounter Summary ---
Author Organization [employer] [facility] Address [address] [place] [address] Care Team Providers Care Event Organizer Name Role Phone Non-Staff, Physician Primary Care Provider Unava ilable Encounter Details Date Type Department Care Team (Latest Contact Info) Description 06/22/2000 Outpatient Historical [facility] Geraldo Kessler MD [address] [address] Follow-up examination, following unspecified surgery (Primary Dx) Social History Tobacco Use Types Packs/Day Years Used Date Smoking Tobacco: Never Assessed Comments Unknown Sex and Gender Information Value Date Recorded Sex Assigned at Not on file 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
--- OUTSIDE RECORDS SUMMARY | 2025-01-04 21:13 | XMS_ITS | Encounter Summary ---
Author Organization [facility] Address [address] [place] [address] Care Team Providers Care Remote Mortgage Underwriter Name Role Phone Non-Staff, Physician Primary Care Provider Unava ilable Encounter Details Date Type Department Care Team (Latest Contact Info) Description 04/17/2000 Outpatient Historical [facility] Family Medicine- [place] [address] [place] [address] Gloria Sal NO ADDRESS ON FILE Excessive menstruation (Primary Dx); Screening for malignant neoplasm of the rectum; Need vaccination-viral disease Social History Tobacco Use Types Packs/Day Years Used Date Smoking Tobacco: Never Assessed Comments Unknown Sex and Gender Information Value Date Recorded Sex Assigned at Not on file 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 Gender Identity Not on file Sexual Orientation Not on file documented as of this encounter Plan of Treatment Not on file documented as of this encounter Visit Diagnoses Diagnosis Excessive menstruation- Primary Excessive or frequent menstruation Screening for malignant neoplasm of the rectum Need vaccination-viral disease Need for prophylactic vaccination and inoculation against other viral diseases documented in this encounter Care Teams Remote Mortgage Underwriter Relationship Specialty Start Date End Date Non-Staff, Physician NO ADDRESS ON FILE PCP - General 08/30/13 documented as of this encounter
--- OUTSIDE RECORDS SUMMARY | 2025-01-04 21:13 | XMS_ITS | Clinical Summary ---
Author Organization [employer] Address [address] Martin: Epic Prelude ADT JOSSIE JASMINE [address] Care Team Providers Care Sharepoint Consultant Name Role Phone Non-Staff, Physician Primary Care Provider Unava ilable Allergies Active Allergy Reactions Criticality Noted Date Comments Morphine Hives,Hallucination High 07/16/2012 Medications acetaminophen (TYLENOL) 325 mg tablet Take 2 Tablets (650 mg) by mouth every 6 hours as needed for Other (See Comment) (See admin instructions). 09/17/19 25 Active artificial lubricant (GENTEAL PM) 94-3 % ointment Administer 0.25 Inches in both eyes every 12 hours. 09/17/19 25 Active guaiFENesin (ROBITUSSIN) 100 mg/5 mL solution Take 15 mL (300 mg) by mouth every 6 hours. 09/17/19 25 Active ipratropium-albu teroL (DUONEB) 0.5 mg-3 mg(2.5 mg base)/3 mL Solution for Nebulization Take 3 mL by inhalation every 6 hours as needed for Shortness of Breath. 09/17/19 25 Active miconazole (JOAN,MICOTIN,RE MEDY AF) 2 % Cream Apply to affected area 2 times daily. 09/17/19 25 Active ondansetron (ZOFRAN ODT) 4 mg Tablet, Rapid Dissolve Take 1 Tablet (4 mg) by mouth every 8 hours as needed for Nausea/Emesis. Dissolve tablet on top of tongue, then swallow with saliva. 09/17/19 25 Active polyethylene glycol (MIRALAX) 17 gram Powder in Packet Take 1 Packet (17 Grams) by mouth 1 time daily as needed for Constipation. 10/30/19 Active docusate sodium (COLACE) 50 mg/5 mL solution Take 10 mL (100 mg) by mouth 2 times daily as needed for Constipation. 10/30/19 Active zinc OXIDE-cod liver oil (Desitin) 40 % Paste Apply to affected area see administration instructions. 28 Gram 10/30/19 25 Active dicyclomine (BENTYL) 10 mg capsule Take 1 Capsule (10 mg) by mouth 4 times daily as needed for abdominal pain 14 Capsule 10/30/19 25 Active apixaban (ELIQUIS) 5 mg tablet Take 5 mg by mouth 2 times daily. Active HYDROcodone-acet aminophen (NORCO) 5-325 mg tabletIndication s:Postoperative abdominal pain Take 1 Tablet by mouth every 6 hours as needed for Pain. Max Daily Amount: 4 Tablets 20 Tablet 11/06/19 Active atenoloL (TENORMIN) 25 mg tablet Take 0.5 Tablets (12.5 mg) by mouth daily. 12/07/19 Active metoclopramide HCl (REGLAN) 10 mg tablet Take 1 Tablet (10 mg) by mouth 4 times daily before meals and at bedtime. 12/07/19 Active scopolamine (TRANSDERM-SCOP) 1 mg/72 hr patch Apply 1 Patch to skin as directed every third day. 12/07/19 Active droNABinol (Marinol) 2.5 mg capsuleIndicatio ns:Protein-calor ie malnutrition, moderate Take 1 Capsule (2.5 mg) by mouth 2 times daily. 12/07/19 Active Active Problems Problem Noted Date Diagnosed Date Nausea 11/27/2024 Severe sepsis without septic shock 11/23/2024 Esophagitis determined by endoscopy 11/22/2024 Intractable nausea and vomiting 11/20/2024 Splenic artery aneurysm per CT 10/29/2024 Acute C. difficile colitis 10/27/2024 Hypokalemia 10/27/2024 Protein-calorie malnutrition, moderate Colostomy status 10/27/2024 Abdominal pain 10/26/2024 Poor nutrition 09/13/2024 On total parenteral nutrition (TPN) 09/13/2024 Ureteral stent present 09/09/2024 Hypervolemia 09/09/2024 INDU (acute kidney injury) 09/09/2024 Acute respiratory failure with hypoxia 5 Hypotension 09/07/2024 History of recurrent UTIs 09/01/2024 [...] Encounters Date Type Department Care Team Description 5 External Device Data STL ABSTRACTION Provider, Abstract 5 External Device Data STL ABSTRACTION Provider, Abstract 5 External Device Data STL ABSTRACTION Provider, Abstract 5 Abstract [facility] Information [address] [place] [address] Provider, Abstract 5 Orders Only [place] [address] [place] [address] Provider, Abstract 5 5:30 AM CDT - 5 11:59 PM CDT Hospital Encounter [facility] Emergency Medical Services [address] [place] [address] Pradeep Luke MD Ambulance, [facility] Discharge Disposition: Intermediate Care Facility 5 External Device Data STL ABSTRACTION Provider, Abstract 5 External Device Data STL ABSTRACTION Provider, Abstract 5 External Device Data STL ABSTRACTION Provider, Abstract 5 External Device Data STL ABSTRACTION Provider, Abstract 5 External Device Data STL ABSTRACTION Provider, Abstract 5 External Device Data STL ABSTRACTION Provider, Abstract 5 External Device Data STL ABSTRACTION Provider, Abstract 5 External Device Data STL ABSTRACTION Provider, Abstract 5 External Device Data STL ABSTRACTION Provider, Abstract 5 External Device Data STL ABSTRACTION Provider, Abstract 5 External Device Data STL ABSTRACTION Provider, Abstract 5 External Device Data STL ABSTRACTION Provider, Abstract 5 External Device Data STL ABSTRACTION Provider, Abstract 5 External Device Data STL ABSTRACTION Provider, Abstract 5 External Device Data STL ABSTRACTION Provider, Abstract 5 External Device Data STL ABSTRACTION Provider, Abstract 5 External Device Data STL ABSTRACTION Provider, Abstract 5 External Device Data STL ABSTRACTION Provider, Abstract 5 External Device Data STL ABSTRACTION Provider, Abstract 5 External Device Data STL ABSTRACTION Provider, Abstract 5 External Device Data STL ABSTRACTION Provider, Abstract 5 External Device Data STL ABSTRACTION Provider, Abstract 5 External Device Data STL ABSTRACTION Provider, Abstract 5 External Device Data STL ABSTRACTION Provider, Abstract 5 Orders Only [facility] [place] [address] [place] [phone] Aniya Shell, DO Esophagitis (Primary Dx) 5 9:35 AM CDT - 5 9:55 AM CDT Surgery [facility] Operating Room [address] [place] [phone] Aniya Shell, DO ESOPHAGOGASTRODUODENOSCOPY 5 9:29 AM CDT Anesthesia Event [facility] Operating Room [address] [place] [phone] Vel Foote MD 5 Travel 5 9:28 PM CDT - 5 8:06 PM CDT Hospital Encounter [address] Medical [address] [place] [phone] Sesar Cat DO Elgayesh, Mostafa Mahmoud, MD Chinna, Jagdeep S, MD Haq, MD Colt Espinoza, MD Carol Arriola, MD Marly Lee, Pradeep Meade MD Intractable nausea and vomiting Discharge Disposition: Longterm Fac(SNF) with Medicare Certification in Anticipation of Skilled Care 5 - 5 11:59 PM CDT Hospital Encounter [facility] [address] [phone] Ambulance, [facility] Discharge Disposition: [facility] 5 Telephone [facility] Tra[facility] Surgery[address] [place] [phone] Dana Eddy PA Question 5 2:40 PM CDT Office Visit [facility] [place] [phone] Tiffany Henson NP Postoperative visit (Primary Dx); Visit for wound check 5 External Device Data STL ABSTRACTION Provider, Abstract 5 Results Follow-Up [facility] Emergency Medicine [address] [phone] Soraya Lagunas RN URINE CULTURE 5 11:38 PM CDT - 5 3:23 AM CDT Emergency [facility] Emergency Medicine [address] [phone] Nicole Golden MD Postoperative abdominal pain (Primary Dx) Discharge Disposition: Home or Self Care 5 - 5 11:59 PM CDT Hospital Encounter [facility] [address] [phone] Ambulance, [facility] Discharge Disposition: [facility] 5 External Device Data STL ABSTRACTION Provider, Abstract 5 External Device Data STL ABSTRACTION Provider, Abstract 5 External Device Data STL ABSTRACTION Provider, Abstract 5 6:10 AM CDT - 5 2:34 PM CDT Hospital Encounter [facility] 7B Medical Surgical [address] [place] [address] Areli Negrete DO Kakakhel, Zainab, MD Kuppi Reddy, Madhavi, MD C. difficile colitis Discharge Disposition: Home or Self Care 5 - 5 11:59 PM CDT Hospital Encounter [facility] Emergency Medical Services [place] [address] [place] [phone] Ambulance, [facility] Discharge Disposition: [facility] 5 Patient Outreach [facility] [address] [place] [phone] Sussy Hager Referral; Financial Assistance Program 5 Travel 5 External Device Data STL ABSTRACTION Provider, Abstract 5 Lab Requisition [facility] General Laboratory Services [address] [place] [phone] [facility], External Provider 5 Lab Requisition [facility] [address] [place] [phone] [facility], External Provider 5 External Device Data STL ABSTRACTION Provider, Abstract 5 Lab Requisition [facility] [address] [place] [phone] Kiarra Charles MD 5 Lab Requisition [facility] [address] [place] [address] [facility], External Provider 5 Lab Requisition [facility] Services [address] [facility] [address] [facility], External Provider 5 Lab Requisition [facility] [address] [place] [address] Harry Reyes, DO 5 Lab Requisition [facility] [address] [place] [phone] [facility], External Provider 5 Lab Requisition [facility] [address] [place] [phone] [facility], External Provider 5 Lab Requisition [facility] [address] [place] [address] [facility], External Provider 5 Lab Requisition [facility] [address] [place] [address] [facility], External Provider 5 Lab Requisition [facility] Services [address] [place] [address] Harry Reyes, DO 5 External Device Data STL ABSTRACTION Provider, Abstract [...] who hurts you emotionally and/or physically? 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 Gender Identity Not on file Sexual Orientation Not on file Last Filed Vital Signs Vital Sign Reading Time Taken Comments Blood Pressure 118/63 12/08/2024 7:19 PM CDT Pulse 79 12/08/2024 7:19 PM CDT Temperature 36.6 C (97.9 F) 12/08/2024 7:19 PM CDT Respiratory Rate 16 12/08/2024 7:19 PM CDT Oxygen Saturation 94% 12/08/2024 7:19 PM CDT Inhaled Oxygen Concentration - - Weight 80.3 kg (177 lb 0.5 oz) 11/22/2024 2:15 A M CDT Height 167.6 cm (5' 6 ) 11/16/2024 10:18 PM CDT Body Mass Index 28.57 11/16/2024 10:18 PM CDT Plan of Treatment Health Maintenance Due Date Last Done Comments DTAP/TDAP/TD VACCINES (1 - Tdap) 1970 Traditional Medicare (ACO) A nnual Wellness Visit 1969 BREAST CANCER SCREENING 1991 COLORECTAL SCREENING 02/20/1996 Colorectal Cancer Screening 02/20/1996 FIT-DNA Q 3 years 02/20/1996 FIT/FOBT Q 1 year 02/20/1996 Flex Sig/CT Colonography Q 5 years 02/20/1996 PNEUMOCOCCAL VACCINE 50+ YEA RS (1 of 1 - PCV) 2001 ZOSTER VACCINE (1 of 2) 2001 OSTEOPOROSIS SCREENING 02/20/2016 INFLUENZA VACCINE (#1) 2024 02/02/2012, 1999 COVID-19 Vaccine (2 - season) 2025 RSV VACCINE (60+ or ) (1 - 1-dose 75+ series) 2026 Medical Devices Implanted Type Area Size Roller Operator Device Identifier Shelf Expiration Date Model / Serial / Lot Clip Ligating Horizon Lrg Ti 10.07x12.38mm [id number] - [facility] [place] [id number] Implanted:Qty: 1 on 09/06/2024 by Moe Ro DO at [facility] Clip N/A: Abdomen TELEFLEX- WECK CLOSURE SYS [id number] 03/21/2029 [id number] / / [id number] Clip Ligating Horizon Med Ti [id number] - Csc - [id number] Implanted:Qty: 1 on 09/06/2024 by Moe Ro DO at [facility] Clip N/A: Abdomen TELEFLEX- WECK CLOSURE SYS [id number] 02/23/2029 [id number] / / [id number] Clip Ligating Horizon Med Ti 525211 - Csc - [id number] Implanted:Qty: 1 on 09/06/2024 by Moe Ro DO at [facility] Clip N/A: Abdomen TELEFLEX- WECK CLOSURE SYS [id number] 02/23/2029 [id number] / / [id number] Stent Contour [id number] - [id number] Implanted:Qty: 1 on 09/06/2024 by Moe Ro DO at [facility] Stent Right: Abdomen 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 [id number] 04/19/2027 [id number] / / [id number] Stent Contour [id number] - [id number] Implanted:Qty: 1 on 09/06/2024 by Moe Ro DO at [facility] Stent Left: Abdomen [employer]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 [id number] 04/19/2027 [id number] / / [id number] Procedures Procedure Name Priority Date/Time Associated Diagnosis Comments TELEMETRY REPORT 12/13/2024 2:57 AM CDT POC GLUCOSE Routine 12/07/2024 8:33 PM CDT CBC WITH DIFFERENTIAL Routine 12/07/2024 4:13 AM CDT POC GLUCOSE Routine 12/05/2024 11:32 PM CDT TRIGLYCERIDE Routine 12/05/2024 1:28 AM CDT PHOSPHORUS Routine 12/05/2024 1:28 AM CDT MAGNESIUM LEVEL Routine 12/05/2024 1:28 AM CDT COMPREHENSIVE METABOLIC PANEL Routine 1:28 AM CDT CBC WITH DIFFERENTIAL Routine 12/05/2024 1:28 AM CDT POC GLUCOSE Routine 12/04/2024 5:08 PM CDT POC GLUCOSE Routine 12/04/2024 12:05 PM CDT POC GLUCOSE Routine 12/04/2024 7:48 AM CDT POC GLUCOSE Routine 12/03/2024 8:22 PM CDT POC GLUCOSE Routine 12/03/2024 5:53 PM CDT XR SMALL BOWEL Routine 12/03/2024 4:53 PM CDT POC GLUCOSE Routine 12/03/2024 12:13 PM CDT POC GLUCOSE Routine 12/03/2024 7:39 AM CDT POC GLUCOSE Routine 12/02/2024 9:21 PM CDT BASIC METABOLIC PANEL Routine 12/02/2024 6:18 PM CDT POC GLUCOSE Routine 12/02/2024 5:08 PM CDT POC GLUCOSE Routine 12/02/2024 12:09 PM CDT POC GLUCOSE Routine 12/02/2024 7:38 AM CDT CBC WITH DIFFERENTIAL Routine 12/02/2024 6:14 AM CDT POC GLUCOSE Routine 12/01/2024 10:03 PM CDT POC GLUCOSE Routine 12/01/2024 5:07 PM CDT POC GLUCOSE Routine 12/01/2024 12:10 PM CDT POC GLUCOSE Routine 12/01/2024 7:32 AM CDT POC GLUCOSE Routine 12/01/2024 5:53 AM CDT BASIC METABOLIC PANEL Routine 12/01/2024 4:24 AM CDT PHOSPHORUS Routine 12/01/2024 4:24 AM CDT MAGNESIUM LEVEL Routine 12/01/2024 4:24 AM CDT POC GLUCOSE Routine 12/01/2024 1:05 AM CDT POC GLUCOSE Routine 11/30/2024 9:36 PM CDT XR CHEST PA OR AP 1 VW Stat 7:16 PM CDT POC GLUCOSE Routine 11/30/2024 5:15 PM CDT POC GLUCOSE Routine 11/30/2024 12:04 PM CDT CBC WITH DIFFERENTIAL Routine 11/30/2024 10:08 AM CDT POC GLUCOSE Routine 11/30/2024 7:50 AM CDT EXTRA TUBE (LAV) Routine 11/30/2024 7:03 AM CDT EXTRA TUBE Routine 11/30/2024 7:03 AM CDT BASIC METABOLIC PANEL Routine 11/30/2024 7:02 AM CDT PHOSPHORUS Routine 11/30/2024 7:02 AM CDT MAGNESIUM LEVEL Routine 11/30/2024 7:02 AM CDT POC GLUCOSE Routine 11/30/2024 5:54 AM CDT POC GLUCOSE Routine 11/30/2024 1:00 AM CDT COMPREHENSIVE METABOLIC PANEL Routine 11:27 PM CDT TRIGLYCERIDE Routine 11/29/2024 11:27 PM CDT POC GLUCOSE Routine 11/29/2024 9:30 PM CDT POC GLUCOSE Routine 11/29/2024 5:47 PM CDT POC GLUCOSE Routine 11/29/2024 11:59 AM CDT POC GLUCOSE Routine 11/29/2024 8:08 AM CDT PHOSPHORUS Routine 11/29/2024 7:10 AM CDT MAGNESIUM LEVEL Routine 11/29/2024 7:10 AM CDT BASIC METABOLIC PANEL Routine 11/29/2024 7:10 AM CDT POC GLUCOSE Routine 11/28/2024 9:47 PM CDT POC GLUCOSE Routine 11/28/2024 4:55 PM CDT POC GLUCOSE Routine 11/28/2024 11:51 AM CDT MAGNESIUM LEVEL Routine 11/28/2024 9:58 AM CDT BASIC METABOLIC PANEL Routine 11/28/2024 9:58 AM CDT CBC WITH DIFFERENTIAL Routine 11/28/2024 9:58 AM CDT POC GLUCOSE Routine 11/28/2024 7:19 AM CDT POC GLUCOSE Routine 11/27/2024 7:16 PM CDT POC GLUCOSE Routine 11/27/2024 4:19 PM CDT POC GLUCOSE Routine 11/27/2024 11:38 AM CDT EKG 12-LEAD Routine 11/27/2024 9:36 AM CDT MAGNESIUM LEVEL Routine 11/27/2024 8:20 AM CDT BASIC METABOLIC PANEL Routine 11/27/2024 8:20 AM CDT CBC WITH DIFFERENTIAL Routine 11/27/2024 8:20 AM CDT POC GLUCOSE Routine 11/27/2024 6:50 AM CDT POC GLUCOSE Routine 11/26/2024 7:22 PM CDT XR ABDOMEN 1 VW Routine 11/26/2024 1:12 PM CDT BASIC METABOLIC PANEL Routine 11/26/2024 9:39 AM CDT CBC WITH DIFFERENTIAL Routine 11/26/2024 9:39 AM CDT POC GLUCOSE Routine 11/25/2024 10:01 PM CDT MAGNESIUM LEVEL Stat 11/25/2024 3:59 AM CDT BASIC METABOLIC PANEL Routine 11/25/2024 3:59 AM CDT CBC WITH DIFFERENTIAL Routine 11/25/2024 3:59 AM CDT POC GLUCOSE Routine 11/24/2024 9:20 PM CDT POC GLUCOSE Routine 11/24/2024 4:56 PM CDT POC GLUCOSE Routine 11/24/2024 11:21 AM CDT POC GLUCOSE Routine 11/24/2024 6:53 AM CDT CBC WITH DIFFERENTIAL Routine 11/24/2024 4:35 AM CDT BASIC METABOLIC PANEL Routine 11/24/2024 2:04 AM CDT POC GLUCOSE Routine 11/23/2024 7:44 PM CDT POC GLUCOSE Routine 11/23/2024 4:56 PM CDT POC GLUCOSE Routine 11/23/2024 11:38 AM CDT EKG 12-LEAD Pending Discharge 11/23/2024 9:14 AM CDT BASIC METABOLIC PANEL Routine 11/23/2024 4:23 AM CDT CBC WITH DIFFERENTIAL Routine 11/23/2024 4:23 AM CDT POC GLUCOSE Routine 11/22/2024 8:22 PM CDT POC GLUCOSE Routine 11/22/2024 12:53 PM CDT POC GLUCOSE Routine 11/22/2024 8:09 AM CDT MAGNESIUM LEVEL Stat 11/22/2024 5:00 AM CDT BASIC METABOLIC PANEL Routine 11/22/2024 5:00 AM CDT CBC WITH DIFFERENTIAL Routine 11/22/2024 5:00 AM CDT POC GLUCOSE Routine 11/21/2024 9:18 PM CDT POC GLUCOSE Routine 11/21/2024 6:12 AM CDT MAGNESIUM LEVEL Routine 11/21/2024 4:02 AM CDT COMPREHENSIVE METABOLIC PANEL Routine 4:02 AM CDT CBC WITH DIFFERENTIAL Routine 11/21/2024 4:02 AM CDT POC GLUCOSE Routine 11/21/2024 1:22 AM CDT COMPREHENSIVE METABOLIC PANEL Routine 11:17 AM CDT CBC WITH DIFFERENTIAL Routine 11/20/2024 11:17 AM CDT POC GLUCOSE Routine 11/20/2024 8:12 AM CDT POC GLUCOSE Routine 11/20/2024 5:58 AM CDT RENAL FUNCTION PANEL Routine 11/20/2024 5:10 AM CDT MAGNESIUM LEVEL Routine 11/20/2024 5:10 AM CDT POC GLUCOSE Routine 11/20/2024 12:50 AM CDT POC GLUCOSE Routine 11/19/2024 8:56 PM CDT UPPER ENDOSCOPY REPORT 9:54 AM CDT WI ANES INSERT ENDOTRACHEAL AIRWAY Routine 11/19/2024 9:47 AM CDT ESOPHAGOGASTRODUODENOSCOPY 11/19 9:35 AM CDT POC GLUCOSE Routine 11/19/2024 4:49 AM CDT MAGNESIUM LEVEL Routine 11/19/2024 1:06 AM CDT COMPREHENSIVE METABOLIC PANEL Routine 1:06 AM CDT CBC WITH DIFFERENTIAL Routine 11/19/2024 1:06 AM CDT POC GLUCOSE Routine 11/19/2024 12:36 AM CDT POC GLUCOSE Routine 11/18/2024 10:[address] PELVIS WO CONTRAST Routine 11/18/2024 6:56 PM CDT POC GLUCOSE Routine 11/18/2024 5:16 PM CDT POC GLUCOSE Routine 11/18/2024 11:17 AM CDT POC GLUCOSE Routine 11/18/2024 5:34 AM CDT MAGNESIUM LEVEL Routine 11/18/2024 2:28 AM CDT COMPREHENSIVE METABOLIC PANEL Routine 2:28 AM CDT CBC WITH DIFFERENTIAL Routine 11/18/2024 2:28 AM CDT TROPONIN 6 HR, 5TH GEN Timed Study 8:04 AM CDT BLOOD CULTURE Routine 11/17/2024 8:04 AM CDT BLOOD CULTURE Routine 11/17/2024 8:04 AM CDT TROPONIN 2 HR, 5TH GEN Timed Study 5 3:40 AM CDT GI PATHOGEN PCR PANEL Routine 11/17/2024 2:17 AM CDT TROPONIN BASELINE, 5TH GEN Stat 11/17 1:36 AM CDT COMPREHENSIVE METABOLIC PANEL Stat 1:36 AM CDT CBC WITH DIFFERENTIAL Stat 11/17/2024 1:36 AM CDT LACTIC ACID Stat 11/17/2024 1:28 AM CDT BLOOD CULTURE Routine 11/17/2024 1:28 AM CDT BLOOD CULTURE Routine 11/17/2024 1:28 AM CDT RT ASSESS AND TREAT Routine 11/17/2024 12:16 AM CDT EKG 12-LEAD Routine 11/16/2024 9:58 PM CDT COMPREHENSIVE METABOLIC PANEL Routine 1:45 PM CDT ECHO LIMITED W DOPPLER AND COLOR FLOW Routine 11/15/2024 1:43 PM CDT COMPREHENSIVE METABOLIC PANEL Routine 1:39 PM CDT COMPREHENSIVE METABOLIC PANEL Routine 1:38 PM CDT LIPID PANEL Routine 11/15/2024 CT ABDOMEN PELVIS W CONTRAST Stat 09/2024 1:41 AM CDT URINALYSIS MICROSCOPY ONLY Stat 11/05 1:12 AM CDT URINALYSIS WITH REFLEX CULTURE Stat 0 11/05/2024 1:12 AM CDT URINE CULTURE Stat 11/05/2024 1:12 AM CDT LIPASE Stat 11/05/2024 12:47 AM CDT COMPREHENSIVE METABOLIC PANEL Stat 12:47 AM CDT CBC WITH DIFFERENTIAL Stat 11/05/2024 12:47 AM CDT BASIC METABOLIC PANEL Routine 10/29/2024 4:23 AM CDT CBC WITH DIFFERENTIAL Routine 10/28/2024 6:15 AM CDT MAGNESIUM LEVEL Routine 10/28/2024 6:14 AM CDT COMPREHENSIVE METABOLIC PANEL Routine 6:14 AM CDT GI PATHOGEN PCR PANEL Routine 10/27/2024 10:56 AM CDT COMPREHENSIVE METABOLIC PANEL Routine 2:10 AM CDT CBC WITH DIFFERENTIAL Routine 10/27/2024 2:10 AM CDT MAGNESIUM LEVEL Stat 10/26/2024 11:21 AM CDT POTASSIUM LEVEL Stat 10/26/2024 11:21 AM CDT EXTRA TUBE (URINE BOB) Stat 10/27/19 10:20 AM CDT URINALYSIS W/REFLEX MICROSCOPIC Stat 10/26/2024 10:20 AM CDT URINE CULTURE Routine 10/26/2024 10:20 AM CDT LACTIC ACID Stat 10/26/2024 9:[address] ABDOMEN PELVIS W CONTRAST Stat 6:54 AM CDT KETONES/BETA HYDROXYBUTYRATE Stat 4:51 AM CDT C-REACTIVE PROTEIN Stat 10/26/2024 4:51 AM CDT AMYLASE Stat 10/26/2024 4:51 AM CDT LIPASE Stat 10/26/2024 4:51 AM CDT MAGNESIUM LEVEL Stat 10/26/2024 4:51 AM CDT COMPREHENSIVE METABOLIC PANEL Stat 4:51 AM CDT CBC WITH DIFFERENTIAL Stat 10/26/2024 4:51 AM CDT BASIC METABOLIC PANEL Routine 10/21/2024 2:15 PM CDT COMPREHENSIVE METABOLIC PANEL Routine 3:35 AM CDT CBC WITH DIFFERENTIAL Routine 10/20/2024 3:35 AM CDT URINALYSIS W/REFLEX MICROSCOPIC Routine 10/18/2024 2:30 AM CDT URINE CULTURE Routine 10/17/2024 3:32 PM CDT C-REACTIVE PROTEIN Routine 10/17/2024 3:30 AM CDT CBC WITH DIFFERENTIAL Routine 10/17/2024 3:30 AM CDT COMPREHENSIVE METABOLIC PANEL Routine 3:30 AM CDT BASIC METABOLIC PANEL Routine 10/15/2024 3:30 AM CDT COMPREHENSIVE METABOLIC PANEL Routine 2:41 AM CDT CBC WITH DIFFERENTIAL Routine 10/13/2024 2:41 AM CDT URINALYSIS WITH REFLEX CULTURE Routine 0 10/12/2024 1:30 AM CDT URINE CULTURE Routine 10/12/2024 1:30 AM CDT C-REACTIVE PROTEIN Routine 10/10/2024 4:28 AM CDT CBC WITH DIFFERENTIAL Routine 10/10/2024 4:28 AM CDT COMPREHENSIVE METABOLIC PANEL Routine 4:28 AM CDT PHOSPHORUS Routine 10/06/2024 5:22 PM CDT MAGNESIUM LEVEL Routine 10/06/2024 5:22 PM CDT CBC WITH DIFFERENTIAL Routine 10/06/2024 4:15 AM CDT COMPREHENSIVE METABOLIC PANEL Routine 4:15 AM CDT from Last 3 Months Results * TELEMETRY REPORT (12/13/2024 2:57 AM CDT) us Provider Scanning ECG ORDERABLES Final Result * (ABNORMAL) POC GLUCOSE (12/07/2024 8:33 PM CDT) Only the most recent of62 resultswithin the time period is included. [facility] GLUCOSE POC 126(H) 74 - 99 mg/dL 12/07/2024 8:33 PM CDT [facility] SPECIMEN SOURCE, GLUCOSE POC Capillary 12/07/2024 8:33 PM CDT [facility] Blood, whole 12/07/2024 8:33 PM CDT 12/07/2024 9:34 PM CDT Pradeep Luke MD POINT OF CARE TESTING [facility] CLIA # [id number] [address] [place] [id number] * (ABNORMAL) CBC WITH DIFFERENTIAL (12/07/2024 4:13 AM CDT) Only the most recent of25 resultswithin the time period is included. [facility] WBC 5.5 4.8 - 10.8 K/uL 12/07/2024 4:47 AM CDT [facility] RBC 4.07(L) 4.20 - 5.40 M/uL 12/07/2024 4:47 AM CDT [facility] HEMOGLOBIN 10.7(L) 12.0 - 16.0 g/dL 12/07/2024 4:47 AM [facility] HEMATOCRIT 32.9(L) 36.0 - 46.0 % 12/07/2024 4:47 AM [facility] MCV 80.8(L) 84.0 - 103.0 fL 12/07/2024 4:47 AM [facility] MCH 26.3(L) 27.0 - 34.0 pg 12/07/2024 4:47 AM [facility] MCHC 32.5 30.0 - 35.0 g/dL 12/07/2024 4:47 AM [facility] PLATELETS 321 140 - 440 K/uL 12/07/2024 4:47 AM [facility] MPV 9.6 8.9 - 12.8 fL 12/07/2024 4:47 AM [facility] RDW 17.2(H) 11.0 - 14.5 % 12/07/2024 4:47 AM [facility] RDW-STDEV 50.4 37.0 - 54.0 fL 12/07/2024 4:47 AM [facility] NEUTROPHILS 50 42 - 75 % 12/07/2024 4:47 AM [facility] LYMPHOCYTES 30 24 - 44 % 12/07/2024 4:47 AM [facility] MONOCYTES 12(H) 2 - 10 % 12/07/2024 4:47 AM [facility] EOSINOPHILS 7 0 - 7 % 12/07/2024 4:47 AM [facility] BASOPHILS 2(H) 0 - 1 % 12/07/2024 4:47 AM [facility] IMMATURE GRANULOCYTES 1 0 - 2 % 12/07/2024 4:47 AM [facility] NEUTROPHIL ABSOLUTE 2.74 2.00 - 8.00 K/uL 12/07/2024 4:47 AM [facility] LYMPHOCYTE ABSOLUTE 1.64 1.20 - 4.00 K/uL 12/07/2024 4:47 AM CDT [facility] MONOCYTE ABSOLUTE 0.64(H) 0.10 - 0.60 K/uL 12/07/2024 4:47 AM CDT [facility] EOSINOPHIL ABSOLUTE 0.37 0.00 - 0.70 K/uL 12/07/2024 4:47 AM CDT [facility] BASOPHILS ABSOLUTE 0.08 0.00 - 0.20 K/uL 12/07/2024 4:47 AM CDT [facility] IMMATURE GRANULOCYTES ABSOLUTE 0.03 0.00 - 0.10 K/uL 12/07/2024 4:47 AM CDT [facility] SMEAR REVIEWED: NA - Not Applicable 12/07/2024 4:47 AM CDT [facility] Blood Venipuncture / Unknown 12/07/2024 4:13 AM CDT 12/07/2024 4:42 AM CDT us Olga Garcia MD HEMATOLOGY ORDERABLES Final Resu lt Performing Organization Address [facility] Co de Phone Number [facility] CLIA # [id number] [address] [place] [address] * TRIGLYCERIDE (12/05/2024 1:28 AM CDT) Only the most recent of2 resultswithin the time period is included. TRIGLYCERIDE 145 <150 mg/dL 12/05/2024 2:51 AM CDT [facility] Blood Venipuncture / Unknown 12/05/2024 1:28 AM CDT 12/05/2024 2:17 AM CDT Narrative [facility] - 12/05/2024 2:51 AM CDT TRIGLYCERIDES mg/dL Normal < 150 Borderline High 150 - 199 High 200 - 499 Very High >= 500 Based on AHA/NCEP Guidelines. us Rachael Gregory MD CHEMISTRY ORDERABLES Final Re sult Performing Organization Address City/State/[facility] Co de Phone Number [facility] CLIA # [id number] [address] [address] [place] [address] * PHOSPHORUS (12/05/2024 1:28 AM CDT) Only the most recent of5 resultswithin the time period is included. PHOSPHORUS 2.9 2.5 - 4.5 mg/dL 12/05/2024 2:51 AM CDT [facility] Blood Venipuncture / Unknown 12/05/2024 1:28 AM CDT 12/05/2024 2:17 AM CDT Rachael Gregory MD CHEMISTRY ORDERABLES Final Re sult Performing Organization Address [facility] de Phone Number [facility] CLIA # [id number] [address] [address] [place], [place] [address] * MAGNESIUM LEVEL (12/05/2024 1:28 AM CDT) Only the most recent of16 resultswithin the time period is included. MAGNESIUM 2.0 1.6 - 2.4 mg/dL 12/05/2024 2:51 AM CDT [facility] Blood Venipuncture / Unknown 12/05/2024 1:28 AM CDT 12/05/2024 2:17 AM CDT Rachael Gregory MD CHEMISTRY ORDERABLES Final Re sult Performing Organization Address [facility] Co de Phone Number [facility] CLIA # [id number] [address] [place] [address] * (ABNORMAL) COMPREHENSIVE METABOLIC PANEL (12/05/2024 1:28 AM CDT) Only the most recent of19 resultswithin the time period is included. SODIUM 133(L) 136 - 145 mmol/L 12/05/2024 2:51 AM [facility] POTASSIUM 3.7 3.5 - 5.1 mmol/L 12/05/2024 2:51 AM [facility] CHLORIDE 101 98 - 107 mmol/L 12/05/2024 2:51 AM [facility] CO2 22 22 - 29 mmol/L 12/05/2024 2:51 AM [facility] CALCIUM 8.5(L) 8.8 - 10.2 mg/dL 12/05/2024 2:51 AM [facility] BUN 7(L) 8 - 23 mg/dL 12/05/2024 2:51 AM [facility] CREATININE 0.48(L) 0.51 - 0.95 mg/dL 12/05/2024 2:51 AM [facility] Comment:The GFR result is no t clinically significant on patients <18 or >70 years of age. GLUCOSE 116(H) 74 - 99 mg/dL 12/05/2024 2:51 AM [facility] TOTAL PROTEIN 6.0(L) 6.4 - 8.3 g/dL 12/05/2024 2:51 AM [facility] ALBUMIN 2.8(L) 3.5 - 5.2 g/dL 12/05/2024 2:51 AM [facility] BILIRUBIN TOTAL 0.5 0.0 - 1.0 mg/dL 12/05/2024 2:51 AM [facility] ALKALINE PHOSPHATASE 89 35 - 104 U/L 12/05/2024 2:51 AM [facility] AST 28 10 - 35 U/L 12/05/2024 2:51 AM [facility] ALT 16 <=35 U/L 12/05/2024 2:51 AM [facility] GFR >60 mL/min/1. 73 sq meter 12/05/2024 2:51 AM [facility] Comment:eGFR calculated with 2020 CKD-EPI equation. Vegetarian diet, extremely high or low muscle mass, and may affect results. Cystatin C with Glomerular Filtration Rate is a suitable alternative for these patients. ANION GAP 10 9 - 20 mmol/L 12/05/2024 2:51 AM CDT [facility] Blood Venipuncture / Unknown 12/05/2024 1:28 AM CDT 12/05/2024 2:17 AM CDT us Rachael Gregory MD CHEMISTRY ORDERABLES Final Re sult [facility] CLIA # [id number] [address] [place] [address] * XR SMALL BOWEL (12/03/2024 4:53 PM CDT) Anatomical Region Laterality Modality Abdomen Computed Radiogr aphy 12/03/2024 4:54 PM CDT Impressions 12/03/2024 7:09 PM CDT IMPRESSION: No evidence of ileus or small bowel obstruction. Narrative 12/03/2024 7:09 PM CDT Exam: XR SMALL BOWEL Date/Time of Exam: 12/03/2024 4:53 PM Reason For Exam: Ileus Diagnosis: See Reason for Exam A small bowel follow-through study was performed using water-soluble contrast. Contrast traversed the small bowel and was present in the colon by the one-hour image. Small bowel is nondilated throughout its length. Small bowel mucosal pattern is unremarkable without evidence of fold thickening or irregularity. Procedure Note Jose Khan MD - 12/03/2024 Exam: XR SMALL BOWEL Date/Time of Exam: 12/03/2024 4:53 PM Reason For Exam: Ileus Diagnosis: See Reason for Exam A small bowel follow-through study was performed using water-soluble contrast. Contrast traversed the small bowel and was present in the colon by the one-hour image. Small bowel is nondilated throughout its length. Small bowel mucosal pattern is unremarkable without evidence of fold thickening or irregularity. IMPRESSION: No evidence of ileus or small bowel obstruction. us Rachael Gregory MD DIAGNOSTIC IMAGING ORDERABLES Final Result * (ABNORMAL) BASIC METABOLIC PANEL (12/02/2024 6:18 PM CDT) Only the most recent of14 resultswithin the time period is included. SODIUM 135(L) 136 - 145 mmol/L 12/02/2024 7:15 PM CDT [facility] POTASSIUM 4.0 3.5 - 5.1 mmol/L 12/02/2024 7:15 PM [facility] CHLORIDE 102 98 - 107 mmol/L 12/02/2024 7:15 PM [facility] CO2 23 22 - 29 mmol/L 12/02/2024 7:15 PM [facility] CALCIUM 8.4(L) 8.8 - 10.2 mg/dL 12/02/2024 7:15 PM [facility] BUN 10 8 - 23 mg/dL 12/02/2024 7:15 PM [facility] CREATININE 0.43(L) 0.51 - 0.95 mg/dL 12/02/2024 7:15 PM [facility] Comment:The GFR result is no t clinically significant on patients <18 or >70 years of age. GLUCOSE 106(H) 74 - 99 mg/dL 12/02/2024 7:15 PM [facility] GFR >60 mL/min/1. 73 sq meter 12/02/2024 7:15 PM [facility] Comment:eGFR calculated with 2020 CKD-EPI equation. Vegetarian diet, extremely high or low muscle mass, and may affect results. Cystatin C with Glomerular Filtration Rate is a suitable alternative for these patients. ANION GAP 10 9 - 20 mmol/L 12/02/2024 7:15 PM [facility] Blood Venipuncture / Unknown 12/02/2024 6:18 PM CDT 12/02/2024 6:45 PM CDT Piper Medina MD CHEMISTRY ORDERABLES F inal Result Performing Organization Address City/[facility]/ZIP Co de Phone Number [facility] CLIA # [id number] [address] [place] [place], [place] [address] * XR CHEST PA OR AP 1 VW (11/30/2024 7:16 PM CDT) Anatomical Region Laterality Modality Chest Computed Radiogr aphy 11/30/2024 7:16 PM CDT Impressions 11/30/2024 9:32 PM CDT IMPRESSION: See below. EXAMINATION: XR CHEST PA OR AP 1 VW ASSOCIATED DIAGNOSIS: Line Placement ORDERING PROVIDER: RACHAEL GREGORY COMPARISON: September 10, 2024 FINDINGS/IMPRESSION: Lines, tubes, and devices: Right-sided PICC with tip overlying the upper SVC. Lungs are clear. No significant effusion or pneumothorax. Heart size within normal limits. Narrative Procedure Note Cristian Anguiano MD - 11/30/2024 IMPRESSION: See below. EXAMINATION: XR CHEST PA OR AP 1 VW ASSOCIATED DIAGNOSIS: Line Placement ORDERING PROVIDER: RACHAEL GREGORY COMPARISON: September 10, 2024 FINDINGS/IMPRESSION: Lines, tubes, and devices: Right-sided PICC with tip overlying the upper SVC. Lungs are clear. No significant effusion or pneumothorax. Heart size within normal limits. Rachael Gregory MD DIAGNOSTIC IMAGING ORDERABLES Final Result * EXTRA TUBE (LAV) (11/30/2024 7:03 AM CDT) Blood Venipuncture / Unknown 11/30/2024 7:03 AM CDT 11/30/2024 7:07 AM CDT External Provider [facility] HEMATOLOGY ORDERABLES Christiana l Result Performing Organization Address City/[facility]/ZIP Co de Phone Number [facility] CLIA # [id number] [address] [place] [address] * EKG 12-LEAD (11/27/2024 9:36 AM CDT) Only the most recent of3 resultswithin the time period is included. 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 : 1950 Requested By: Order Number: [id number] Reading MD: Alesha Babb Measurements Intervals [place] Rate: 78 P: 62 WI: 180 QRS: -22 QRSD: 86 T: 28 QT: 418 QTc: 476 Interpretive Statements Normal sinus rhythm Low voltage QRS Borderline ECG Electronically Signed On 11-27-2024 13:22:28 CDT by Alesha Babb Procedure Note Provider, Historical - 11/27/[address] [address] Test Date: 2024-11-27 Pat Name: TIFFANY SEXTON Department: 12 Room: 4217 Gender: Female 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 Exam: XR ABDOMEN 1 VW Date/Time of Exam: 11/26/2024 1:12 PM Reason For Exam: Vomiting, Ileus, Bowel Obstruction. Diagnosis: See Reason for Exam. Findings: Bowel gas pattern nonspecific. No obstructive pattern. No significant stool burden. No free air. Surgical clips right upper quadrant. Imaged skeleton intact. Narrative Procedure Note Yasmin Simental MD - 11/26/2024 IMPRESSION: Please see below. Exam: XR ABDOMEN 1 VW Date/Time of Exam: 11/26/2024 1:12 PM Reason For Exam: Vomiting, Ileus, Bowel Obstruction. Diagnosis: See Reason for Exam. Findings: Bowel gas pattern nonspecific. No obstructive pattern. No significant stool burden. No free air. Surgical clips right upper quadrant. Imaged skeleton intact. Olga Garcia MD DIAGNOSTIC IMAGING ORDERABLES Fi nal Result * (ABNORMAL) RENAL FUNCTION PANEL (11/20/2024 5:10 AM CDT) SODIUM 134(L) 136 - 145 mmol/L 11/20/2024 6:15 AM CDT [facility] POTASSIUM 3.5 3.5 - 5.1 mmol/L 11/20/2024 6:15 AM CDT [facility] CHLORIDE 96(L) 98 - 107 mmol/L 11/20/2024 6:15 AM CDT [facility] CO2 25 22 - 29 mmol/L 11/20/2024 6:15 AM CDT [facility] CALCIUM 8.3(L) 8.8 - 10.2 mg/dL 11/20/2024 6:15 AM CDT [facility] BUN 3(L) 8 - 23 mg/dL 11/20/2024 6:15 AM CDT [facility] CREATININE 0.38(L) 0.51 - 0.95 mg/dL 11/20/2024 6:15 AM T [facility] Comment:The GFR result is no t clinically significant on patients <18 or >70 years of age. GLUCOSE 79 74 - 99 mg/dL 11/20/2024 6:15 AM CDT [facility] ALBUMIN 2.2(L) 3.5 - 5.2 g/dL 11/20/2024 6:15 AM CDT [facility] PHOSPHORUS 3.4 2.5 - 4.5 mg/dL 11/20/2024 6:15 AM CDT [facility] GFR >60 mL/min/1. 73 sq meter 11/20/2024 6:15 AM CDT [facility] Comment:eGFR calculated with 2020 CKD-EPI equation. Vegetarian diet, extremely high or low muscle mass, and may affect results. Cystatin C with Glomerular Filtration Rate is a suitable alternative for these patients. ANION GAP 13 9 - 20 mmol/L 11/20/2024 6:15 AM CDT [facility] Blood Venipuncture / Unknown 11/20/2024 5:10 AM CDT 11/20/2024 5:43 AM CDT us Gold Avila MD CHEMISTRY ORDERABLES Final R esult [facility] CLIA # [id number] [address] [place] [address] * UPPER ENDOSCOPY REPORT (11/19/2024 9:54 AM CDT) Narrative Procedure Note Aniya Shell DO - 11/19/2024 9:54 AM CDT [facility] GI Patient Name: Tiffany Sexton Procedure Date: 11/19/2024 Date of : 1950 Admit Type: Inpatient Age: 74 Attending MD: Aniya Arango DO, Procedure: Upper GI endoscopy Indications: Coffee-ground emesis Providers: Aniya Arango DO Referring MD: Medicines: Propofol per Anesthesia Complications: No immediate complications. Procedure: Pre-Anesthesia Assessment: - Prior to the procedure, a History and Physical was performed, and patient medications and allergies were reviewed. The patient's tolerance of previous anesthesia was also reviewed. The risks and benefits of the procedure and the sedation options and risks were discussed with the patient. All questions were answered, and informed consent was obtained. Prior Anticoagulants: The patient has taken no anticoagulant or antiplatelet agents. ASA Grade Assessment: III - A patient with severe systemic disease. After reviewing the risks and benefits, the patient was deemed in satisfactory condition to undergo the procedure. After obtaining informed consent, the endoscope was passed under direct vision. Throughout the procedure, the patient's blood pressure, pulse, and oxygen saturations were monitored continuously. The Endoscope was introduced through the mouth, and advanced to the second part of duodenum. The upper GI endoscopy was accomplished without difficulty. The patient tolerated the procedure well. Estimated Blood Loss: Estimated blood loss was minimal. Findings: LA Grade D (one or more mucosal breaks involving at least 75% of esophageal circumference) esophagitis with bleeding was found in the distal esophagus. The Z-line was variable and was found 40 cm from the incisors. Diffuse NG tube trauma with mucosal bleeding in the cardia and fundus. No endoscopic targets for treatment. The exam of the stomach was otherwise normal. The duodenal bulb, first portion of the duodenum and second portion of the duodenum were normal. Impression: - LA Grade D esophagitis with bleeding. - NG tube trauma to gastric mucosa with mild bleeding. - Normal duodenal bulb, first portion of the duodenum and second portion of the duodenum. - No specimens collected. Recommendation: PPI BID Remove NG GERRY EGD in 8 weeks Aniya Arango DO 11/19/2024 9:53:56 AM This report has been signed electronically. Number of Addenda: 0 Note Initiated On: 11/19/2024 9:33 AM Scope Withdrawal Time Scope In: Scope Out: Patient Profile: This is a 74 year old female. [facility]ly [facility] [place], [place] us Aniya Arango DO GI PROCEDURE ORDERABLE S Final Result * WI ANES INSERT ENDOTRACHEAL AIRWAY (11/19/2024 9:47 AM CDT) Narrative Maryam Liao CRNA - 11/19/2024 9:47 AM CDT Maryam Liao CRNA 11/19/2024 9:52 AM Airway Date/Time: 11/19/2024 9:47 AM Location: OR Plan: elective intubation Patient Identity Confirmed by: Verbally with patient and armband Airway: Difficult Staffing Performed: MORTGAGE ADVISOR/CAA Authorized by: Vel Foote MD Performed by: Maryam Liao CRNA Indications and Patient Condition: Indications for Airway Management: Anesthesia and airway protection Sedation Level: general anesthesia Preoxygenated: yes Patient Position: Sniffing Mask Difficulty Assessment: 0 - not attempted Plan to extubate at end of case: Yes Final Airway Details: Final Airway Type: Endotracheal airway ETT Technique Used for Successful ETT Placement: Video laryngoscopy Devices/Methods Used in Placement: Cricoid pressure, intubating stylet and rapid sequence intubations/RSI Reason for advanced technique: pre-op assessment and prior history Blade Size: 3 Insertion Site: Oral ETT Size (mm): 7.0 Video Laryngoscopy Devices: Phelan Measured from: Lips ETT to Lips (cm): 21 Tube secured with: Tape Placement Verified by: auscultation, end tidal CO2 and chest rise Cormack-Lehane Classification: Grade I - full view of glottis Number of Attempts at Approach: 1 Additional Procedure Information: atraumatic and dentition unchanged Vel Foote MD PROCEDURE/MINOR SURGICAL ORDERAB LES Final Result * CT PELVIS WO CONTRAST (11/18/2024 6:56 PM CDT) Anatomical Region Laterality Modality Pelvis Computed Tomogra phy 11/18/2024 6:34 PM CDT Impressions 11/18/2024 7:51 PM CDT IMPRESSION: No evidence of any abnormal sinus tract or fistula from the urinary bladder. Narrative 11/18/2024 7:51 PM CDT Exam: CT PELVIS WO CONTRAST Date/Time of Exam: 11/18/2024 6:56 PM Reason For Exam: Anal fissure or fistula;colovesc fistula Diagnosis: See Reason for Exam Technique: Contiguous axial images were obtained through the pelvis. Sagittal and coronal reformatted images are included. Imaging was performed with contrast introduced into the urinary bladder. Findings: An ostomy site is present in the left lower quadrant. There is no evidence of any abnormal contrast extravasation from the urinary bladder into any sinus tract or fistula. There is no evidence of abnormal soft tissue masses, adenopathy or abnormal fluid collections in the pelvis. There is no evidence of small bowel dilatation at the levels that were scanned. No free intraperitoneal air is seen at the levels that were scanned. Procedure Note Jose Khan MD - 11/18/2024 Exam: CT PELVIS WO CONTRAST Date/Time of Exam: 11/18/2024 6:56 PM Reason For Exam: Anal fissure or fistula;colovesc fistula Diagnosis: See Reason for Exam Technique: Contiguous axial images were obtained through the pelvis. Sagittal and coronal reformatted images are included. Imaging was performed with contrast introduced into the urinary bladder. Findings: An ostomy site is present in the left lower quadrant. There is no evidence of any abnormal contrast extravasation from the urinary bladder into any sinus tract or fistula. There is no evidence of abnormal soft tissue masses, adenopathy or abnormal fluid collections in the pelvis. There is no evidence of small bowel dilatation at the levels that were scanned. No free intraperitoneal air is seen at the levels that were scanned. IMPRESSION: No evidence of any abnormal sinus tract or fistula from the urinary bladder. Digna CHIRINOS CT ORDERABLES Final Result * (ABNORMAL) TROPONIN 6 HR, 5TH GEN (11/17/2024 8:04 AM CDT) TROPONIN T, 6 HR 5TH GEN 22(H) <11 ng/L 11/17/2024 8:42 AM CDT [facility] DELTA 6HR TROPONIN T -3 See Interp. 11/17/2024 8:42 AM CDT [facility] Blood Venipuncture / Unknown 11/17/2024 8:04 AM CDT 11/17/2024 8:10 AM CDT Narrative [facility] - 11/17/2024 8:42 AM CDT Troponin elevated. Delta indeterminate. Delay in collection of timed specimen beyond recommended collection interval. Results must be interpreted in clinical context. Claudia Berger MD CHEMISTRY ORDERABLES Final Result Performing Organization Address [facility]/ZIP Co de Phone Number [facility] CLIA # [id number] [address] [address] [place] [address] * BLOOD CULTURE (11/17/2024 8:04 AM CDT) Only the most recent of2 resultswithin the time period is included. Pathologist [facility] BLOOD CULTURE No growth 11/22/2024 8:34 AM CDT [facility] Blood (Peripheral) Venipuncture / Unknown 11/17/2024 8:04 AM CDT 11/17/2024 8:07 AM CDT [facility] - 11/22/2024 8:34 AM CDT Specimen processed with suboptimal blood volume collected. Claudia Berger MD MICROBIOLOGY - [facility] AL ORDERABLES Final Result Performing Organization Address [facility] Co de Phone Number [facility] CLIA # [id number] [address] [address] * (ABNORMAL) TROPONIN 2 HR, 5TH GEN (11/17/2024 3:40 AM CDT) Pathologist [facility] TROPONIN T, 2 HR 5TH GEN 22(H) <=10 ng/L 11/17/2024 4:23 AM CDT [facility] DELTA 2HR TROPONIN T -3 See Interp. 11/17/2024 4:23 AM CDT [facility] Blood Venipuncture / Unknown 11/17/2024 3:40 AM CDT 11/17/2024 3:50 AM CDT Narrative [facility] - 11/17/2024 4:23 AM CDT Troponin elevated. Delta not changing. Delay in collection of timed specimen beyond recommended collection interval. Results must be interpreted in clinical context. us Claudia Berger MD CHEMISTRY ORDERABLES Final Result [facility] DAVID # [id number] Former[facility] [address] [place] [address] * (ABNORMAL) GI PATHOGEN PCR PANEL (11/17/2024 2:17 AM CDT) Only the most recent of2 resultswithin the time period is included. C difficile toxin A/B by PCR DETECTED( A) Not Detected 11/17/2024 4:19 AM CDT [facility] Comment: The [employer] GI PCR panel identifies the presence of C. difficile in the stool specimen but cannot differentiate between asymptomatic carriage and clinical infection. If clinically warranted, place patient in Contact Precautions-gown and gloves for every entry into patient rooms. Wash hands with soap and water. Stool STOOL SPECIMEN / Unknown Collection / Unknown 11/17/2024 2:17 AM CDT 11/17/2024 2:26 AM CDT Narrative [facility] - 11/17/2024 4:19 AM CDT Positive GI pathogen panel called to Carline Miller RN 4C by Farida Carrion on 11/17/2024 at 4:16 AM with verbal readback. The [employer] GI [...] Cryptosporidium Cyclospora cayetanensis Entamoeba histolytica Giardia duodenalis Claudia Berger MD MICROBIOLOGY - GENER AL ORDERABLES Final Result Performing Organization Address [facility]/ZIP Co de Phone Number [facility] CLIA # [id number] [address] [place] [address] * (ABNORMAL) TROPONIN BASELINE, 5TH GEN (11/17/2024 1:36 AM CDT) TROPONIN T, BASELINE 5TH GEN 25(H) <=10 ng/L 11/17/2024 2:40 AM CDT [facility] Blood Venipuncture / Unknown 11/17/2024 1:36 AM CDT 11/17/2024 2:02 AM CDT Narrative [facility] - 11/17/2024 2:40 AM CDT Troponin elevated. us Claudia Berger MD CHEMISTRY ORDERABLES Final Result Performing Organization Address [facility] Co de Phone Number [facility] CLIA # [id number] [address] [place] [address] * LACTIC ACID (11/17/2024 1:28 AM CDT) Only the most recent of2 resultswithin the time period is included. LACTIC ACID 1.4 <=2.0 mmol/L 11/17/2024 2:12 AM CDT [facility] Blood Venipuncture / Unknown 11/17/2024 1:28 AM CDT 11/17/2024 1:42 AM CDT us Claudia Berger MD CHEMISTRY ORDERABLES Final Result Performing Organization Address [facility]/ZIP Co de Phone Number [facility] [facility] CLIA # [id number] [address] [place] [address] * ECHO LIMITED W DOPPLER AND COLOR FLOW (11/15/2024 1:43 PM CDT) us Abstract Provider US ORDERABLES Final Result * LIPID PANEL (11/15/2024) ABSTRACTED CHOLESTEROL 182 ABSTRACTED TRIGLYCERIDE 93 ABSTRACTED HDL 37 ABSTRACTED LDL CALCULATED 126 Blood 11/15/2024 us Abstract Provider CHEMISTRY ORDERABLES Final Res ult * CT ABDOMEN PELVIS W CONTRAST (11/05/2024 1:41 AM CDT) Only the most recent of2 resultswithin the time period is included. Anatomical [...] Pale to Dark Yellow 11/05/2024 1:30 AM T [facility] CLARITY UA Clear Clear 11/05/2024 1:30 AM [facility] SPECIFIC GRAVITY UA <=1.005 1.003 - 1.035 11/05/2024 1:30 AM [facility] PH UA 6.0 5.0 - 8.0 11/05/2024 1:30 AM [facility] LEUKOCYTE ESTERASE UA 1+(A) Negative 11/05/2024 1:30 AM T [facility] NITRITE UA Negative Negative 11/05/2024 1:30 AM [facility] PROTEIN UA Negative Negative 11/05/2024 1:30 AM [facility] GLUCOSE UA Negative Negative 11/05/2024 1:30 AM [facility] KETONES UA 2+(A) Negative 11/05/2024 1:30 AM [facility] UROBILINOGEN UA 0.2 <2.0 mg/dL 1:30 AM [facility] BILIRUBIN UA Negative Negative 11/05/2024 1:30 AM [facility] BLOOD UA Trace(A) Negative 11/05/2024 1:30 AM [facility] Comment: For patients with 'trace' results, consider ordering a culture and sensitivity if clinically indicated. Urine URINE SPECIMEN OBTAINED BY CLEAN CATCH PROCEDURE / Unknown Collection / Unknown 11/05/2024 1:12 AM CDT 11/05/2024 1:17 AM CDT Narrative [facility] - 11/05/2024 1:30 AM CDT Based on results, a urine culture has been reflexed. us Nicole Golden MD URINE ORDERABLES Final Resul t [facility] CLIA # [id number] [address] [place] [address] * (ABNORMAL) URINALYSIS MICROSCOPY ONLY (11/05/2024 1:12 AM CDT) WBC UA 0-2 0 - 2 /hpf 11/05/2024 1:30 AM CDT [facility] RBC UA 0-2 0 - 2 /hpf 11/05/2024 1:30 AM CDT [facility] BACTERIA UA Negative Negative /hpf 11/05/2024 1:30 AM CDT [facility] EPITHELIAL CELLS, URINE 6-10(A) 0 - 5 /hpf 11/05/2024 1:30 AM CDT [facility] YEAST, BUDDING Present(A) Absent 11/05/2024 1:30 AM CDT [facility] Urine URINE SPECIMEN OBTAINED BY CLEAN CATCH PROCEDURE / Unknown Collection / Unknown 11/05/2024 1:12 AM CDT 11/05/2024 1:17 AM CDT us Nicole Golden MD URINE ORDERABLES Final Resul t [facility] CLIA # [id number] [address] [place] [address] * URINE CULTURE (11/05/2024 1:12 AM CDT) Only the most recent of4 resultswithin the time period is included. CULTURE Polymicrobial growth consistent with normal urethral magali and/or colonizing bacteria 11/06/2024 12:47 PM CDT [facility] Urine URINE SPECIMEN OBTAINED BY CLEAN CATCH PROCEDURE / Unknown Collection / Unknown 11/05/2024 1:12 AM CDT 11/05/2024 1:19 AM CDT us Nicole Golden MD MICROBIOLOGY - GENERAL ORDER KARON Final Result Performing Organization Address City/[facility]/ZIP Co de Phone Number [facility] CLIA # [id number] [facility] [address] * LIPASE (11/05/2024 12:47 AM CDT) Only the most recent of2 resultswithin the time period is included. LIPASE 44 13 - 60 U/L 11/05/2024 1:11 AM CDT [facility] Blood Venipuncture / Unknown 11/05/2024 12:47 AM CDT 11/05/2024 12:53 AM CDT us Nicole Golden MD CHEMISTRY ORDERABLES Final R esult [facility] CLIA # [id number] [address] [place] [address] * (ABNORMAL) POTASSIUM LEVEL (10/26/2024 11:21 AM CDT) POTASSIUM 3.3(L) 3.5 - 5.1 mmol/L 10/26/2024 11:58 AM CDT [facility] Blood Venipuncture / Unknown 10/26/2024 11:21 AM CDT 10/26/2024 11:33 AM CDT us Deandra Delgado MD CHEMISTRY ORDERABLES Final Re sult [facility] CLIA # [id number] [address] [place] [address] [place] [address] * EXTRA TUBE (URINE BOB) (10/26/2024 10:20 AM CDT) Urine URINE SPECIMEN OBTAINED BY CLEAN CATCH PROCEDURE / Unknown Collection / Unknown 10/26/2024 10:20 AM CDT 10/26/2024 10:24 AM CDT us Areli Negrete DO URINE ORDERABLES Final Result [facility] CLIA # [id number] [address] [facility] [place], [place] [id number] * (ABNORMAL) URINALYSIS WITH REFLEX MICROSCOPIC (10/26/2024 10:20 AM CDT) Only the most recent of2 resultswithin the time period is included. COLOR UA Yellow Pale to Dark Yellow 10/26/2024 11:09 AM [facility] CLARITY UA Clear Clear 10/26/2024 11:09 AM [facility] SPECIFIC GRAVITY UA 1.020 1.003 - 1.035 10/26/2024 11:09 AM [facility] PH UA 5.5 5.0 - 8.0 10/26/2024 11:09 AM [facility] LEUKOCYTE ESTERASE UA 1+(A) Negative 10/26/2024 11:09 AM [facility] NITRITE UA Positive(A) Negative 10/26/2024 11:09 AM [facility] PROTEIN UA 1+(A) Negative 10/26/2024 11:09 AM [facility] GLUCOSE UA Negative Negative 10/26/2024 11:09 AM [facility] KETONES UA 3+(A) Negative 10/26/2024 11:09 AM [facility] UROBILINOGEN UA 0.2 <2.0 mg/dL 11:09 AM [facility] BILIRUBIN UA 1+(A) Negative 10/26/2024 11:09 AM [facility] Comment:Test not confirmed. BLOOD UA Negative Negative 10/26/2024 11:09 AM [facility] WBC UA 3-5(A) 0 - 2 /hpf 10/26/2024 11:09 AM [facility] RBC UA 3-5(A) 0 - 2 /hpf 10/26/2024 11:09 AM [facility] BACTERIA UA 1+(A) Negative /hpf 10/26/2024 11:09 AM CDT [facility] EPITHELIAL CELLS, URINE 0-5 0 - 5 /hpf 10/26/2024 11:09 AM CDT [facility] HYALINE CAST 0-2 None Seen, 0-2 /lpf 10/26/2024 11:09 AM CDT [facility] Urine URINE SPECIMEN OBTAINED BY CLEAN CATCH PROCEDURE / Unknown Collection / Unknown 10/26/2024 10:20 AM CDT 10/26/2024 10:24 AM CDT Areli Negrete DO URINE ORDERABLES Final Result Performing Organization Address [facility]/ZIP Co de Phone Number [facility] CLIA # [id number] [address] [address] * (ABNORMAL) KETONES/BETA HYDROXYBUTYRATE (10/26/2024 4:51 AM CDT) BETA HYDROXYBUTYRATE 3.7(H) 0.0 - 0.3 mmol/L 10/26/2024 10:17 AM CDT [facility] Blood Venipuncture / Unknown 10/26/2024 4:51 AM CDT 10/26/2024 4:58 AM CDT Deandra Delgado MD CHEMISTRY ORDERABLES Final Re sult Performing Organization Address City/[facility]/ZIP Co de Phone Number [facility] CLIA # [id number] [address] [address] * (ABNORMAL) C-REACTIVE PROTEIN (10/26/2024 4:51 AM CDT) Only the most recent of3 resultswithin the time period is included. CRP 46.3(H) 0.0 - 5.0 mg/L 10/26/2024 10:17 AM CDT [facility] Blood Venipuncture / Unknown 10/26/2024 4:51 AM CDT 10/26/2024 4:58 AM CDT Deandra Delgado MD CHEMISTRY ORDERABLES Final Re sult Performing Organization Address [facility] Co de Phone Number [facility] CLIA # [id number] [address] [address] [place] [address] * (ABNORMAL) AMYLASE (10/26/2024 4:51 AM CDT) AMYLASE 25(L) 28 - 100 U/L 10/26/2024 10:21 AM CDT [facility] Blood Venipuncture / Unknown 10/26/2024 4:51 AM CDT 10/26/2024 4:58 AM CDT Deandra Delgado MD CHEMISTRY ORDERABLES Final Re sult Performing Organization Address [facility] de Phone Number [facility] CLIA # [id number] [address] [address] from Last 3 Months Additional Health Concerns Infection Onset Date Last Indicated C Diff Comment:11/17/24 This patient is within their 60 day window of a positive C diff, repeat testing is not recommended. This patient does require Enteric isolation for the duration of their admission. Patricia Hendrix RN, Infection Prevention 10/27/2024 11/17/2024 Insurance MEDICARE PART A AND B RX [employer] Member Subscriber Plan / Payer (Ef fective 2023-Present) Name:Tez Tiffany Sanchez Relation to Subscriber:Self Name:Wil Sextonfadi Sanchez Payer ID:Not on file Group ID:[id number] Type:RX Medicare Part D Address: [address] Advance Directives For more information, please contact: [phone] * Full Code (Latest Code Status on File) Date Activated Date Inactivated Comments 11/23/2024 6:33 PM 12/08/2024 10:16 PM * Default Full Code - Needs Discussion Date Activated Date Inactivated Comments 11/16/2024 9:46 PM 11/23/2024 6:33 PM * Full Code Date Activated Date Inactivated Comments 10/26/2024 9:49 AM 10/29/2024 4:39 PM * Full Code Date Activated Date Inactivated Comments 09/06/2024 3:32 PM 09/17/2024 7:30 AM * Full Code Date Activated Date Inactivated Comments 08/31/2024 6:17 AM 09/06/2024 3:32 PM Care Teams Sharepoint Consultant Relationship Specialty Start Date End Date Non-Staff, Physician NO ADDRESS ON FILE PCP - General 08/30/13
--- OUTSIDE RECORDS SUMMARY | 2025-01-04 21:13 | XMS_ITS | Encounter Summary ---
Author Organization [facility] Address [address] [place] [address] Care Team Providers Care Car Pick Up Driver Name Role Phone Non-Staff, Physician Primary Care Provider Unava ilable Encounter Details Date Type Department Care Team (Latest Contact Info) Description 03/23/2000 Outpatient Historical [facility]- [place] [address] [place] [phone] Gloria Sal NO ADDRESS ON FILE Generalized osteoarthrosis, involving multiple sites (Primary Dx); Unspecified menopausal and postmenopausal disorder Social History Tobacco Use Types Packs/Day Years Used Date Smoking Tobacco: Never Assessed Comments Unknown Sex and Gender Information Value Date Recorded Sex Assigned at Not on file 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
--- OUTSIDE RECORDS SUMMARY | 2025-01-04 21:13 | XMS_ITS | Encounter Summary ---
Author Organization [facility] Address [address] [place] [address] Care Team Providers Care Property Clerk Name Role Phone Non-Staff, Physician Primary Care Provider Unava ilable Encounter Details Date Type Department Care Team (Latest Contact Info) Description 04/02/[address] 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
--- OUTSIDE RECORDS SUMMARY | 2025-01-04 21:14 | XMS_ITS | Encounter Summary ---
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 Gender Identity Not on file Sexual Orientation [...] POC GLUCOSE (12/23/2005 6:09 AM CDT) Pathologist [facility] GLUCOSE POC 189(H) 60 - 100 mg/dL INTERFACE SYSTEM 12/23/2005 6:09 AM CDT us Sesar Rayo MD POINT OF CARE TESTING Final Re sult INTERFACE SYSTEM Refer to clinic/hospital department * (ABNORMAL) CBC WITH DIFFERENTIAL (12/23/2005 5:05 AM CDT) Pathologist [facility] WBC 6.8 4.8 - 10.8 K/ul INTERFACE [...] ORDERABLES Final Re sult Performing Organization Address [facility] Phone Number INTERFACE SYSTEM Refer to clinic/hospital department * (ABNORMAL) POC GLUCOSE (12/22/2005 8:47 PM CDT) GLUCOSE POC 135(H) 60 - 100 mg/dL INTERFACE SYSTEM COMMENT POC Follow Protocol INTERFACE SYSTEM 12/22/2005 8:47 PM CDT Sesar Rayo MD POINT OF CARE TESTING Final Re sult Performing Organization Address [facility] Phone Number INTERFACE SYSTEM Refer to clinic/hospital department * (ABNORMAL) POC GLUCOSE (12/22/2005 5:53 PM CDT) GLUCOSE POC 101(H) 60 - 100 mg/dL INTERFACE SYSTEM 12/22/2005 5:53 PM CDT Sesar Rayo MD POINT OF CARE TESTING Final Re sult Performing Organization Address [facility] Phone Number INTERFACE SYSTEM Refer to clinic/hospital department * (ABNORMAL) POC GLUCOSE (12/22/2005 11:35 AM CDT) GLUCOSE POC 123(H) 60 - 100 mg/dL INTERFACE SYSTEM 12/22/2005 11:3 5 AM CDT Sesar Rayo MD POINT OF CARE TESTING Final Re sult Performing Organization Address [facility] Phone Number INTERFACE SYSTEM Refer to clinic/hospital department * (ABNORMAL) POC GLUCOSE (12/22/2005 5:27 AM CDT) GLUCOSE POC 121(H) 60 - 100 mg/dL INTERFACE SYSTEM 12/22/2005 5:27 AM CDT us Sesar Rayo MD POINT OF CARE TESTING Final Re sult INTERFACE SYSTEM Refer to clinic/hospital department * (ABNORMAL) CBC WITHOUT DIFFERENTIAL (12/22/2005 5:05 AM CDT) Pathologist [facility] WBC 8.4 4.8 - 10.8 K/ul INTERFACE [...] ORDERABLES Final Re sult Performing Organization Address City/[facility]/ZIP Co de Phone Number INTERFACE SYSTEM Refer to clinic/hospital department * (ABNORMAL) POC GLUCOSE (12/21/2005 8:48 PM CDT) GLUCOSE POC 136(H) 60 - 100 mg/dL INTERFACE SYSTEM 12/21/2005 8:48 PM CDT Sesar Rayo MD POINT OF CARE TESTING Final Re sult Performing Organization Address [facility] Phone Number INTERFACE SYSTEM Refer to clinic/hospital department * (ABNORMAL) POC GLUCOSE (12/21/2005 5:27 PM CDT) GLUCOSE POC 133(H) 60 - 100 mg/dL INTERFACE SYSTEM 12/21/2005 5:27 PM CDT Sesar Rayo MD POINT OF CARE TESTING Final Re sult Performing Organization Address [facility] Phone Number INTERFACE SYSTEM Refer to clinic/hospital department * (ABNORMAL) POC GLUCOSE (12/21/2005 11:04 AM CDT) GLUCOSE POC 121(H) 60 - 100 mg/dL INTERFACE SYSTEM 12/21/2005 11:0 4 AM CDT Sesar Rayo MD POINT OF CARE TESTING Final Re sult Performing Organization Address [facility] Phone Number INTERFACE SYSTEM Refer to clinic/hospital department * (ABNORMAL) POC GLUCOSE (12/21/2005 5:37 AM CDT) GLUCOSE POC 137(H) 60 - 100 mg/dL INTERFACE SYSTEM 12/21/2005 5:37 AM CDT Sesar Rayo MD POINT OF CARE TESTING Final Re sult Performing Organization Address [facility] Phone Number INTERFACE SYSTEM Refer [...] ORDERABLES Final Re sult Performing Organization Address [facility] Phone Number INTERFACE SYSTEM Refer to clinic/hospital department * (ABNORMAL) POC GLUCOSE (12/20/2005 8:52 PM CDT) GLUCOSE POC 112(H) 60 - 100 mg/dL INTERFACE SYSTEM 12/20/2005 8:52 PM CDT Sesar Rayo MD POINT OF CARE TESTING Final Re sult Performing Organization Address [facility] Phone Number INTERFACE SYSTEM Refer to clinic/hospital department * (ABNORMAL) POC GLUCOSE (12/20/2005 4:56 PM CDT) GLUCOSE POC 121(H) 60 - 100 mg/dL INTERFACE SYSTEM 12/20/2005 4:56 PM CDT Sesar Rayo MD POINT OF CARE TESTING Final Re sult Performing Organization Address [facility] Phone Number INTERFACE SYSTEM Refer to clinic/hospital department * (ABNORMAL) POC GLUCOSE (12/20/2005 12:06 PM CDT) GLUCOSE POC 127(H) 60 - 100 mg/dL INTERFACE SYSTEM 12/20/2005 12:0 6 PM CDT Sesar Rayo MD POINT OF CARE TESTING Final Re sult Performing Organization Address [facility] Phone Number INTERFACE SYSTEM Refer to clinic/hospital department * (ABNORMAL) POC GLUCOSE (12/20/2005 6:26 AM CDT) GLUCOSE POC 144(H) 60 - 100 mg/dL INTERFACE SYSTEM 12/20/2005 6:26 AM CDT Sesar Rayo MD POINT OF CARE TESTING Final Re sult Performing Organization Address [facility] Phone Number INTERFACE SYSTEM Refer [...] ORDERABLES Final Res ult Performing Organization Address [facility] Phone Number INTERFACE SYSTEM Refer [...] ORDERABLES Final Re sult Performing Organization Address [facility] Phone Number INTERFACE SYSTEM Refer to clinic/hospital department * (ABNORMAL) POC GLUCOSE (12/19/2005 8:42 PM CDT) GLUCOSE POC 123(H) 60 - 100 mg/dL INTERFACE SYSTEM 12/19/2005 8:42 PM CDT Sesar Rayo MD POINT OF CARE TESTING Final Re sult Performing Organization Address [facility] de Phone Number INTERFACE SYSTEM Refer to clinic/hospital department * (ABNORMAL) POC GLUCOSE (12/19/2005 5:01 PM CDT) GLUCOSE POC 134(H) 60 - 100 mg/dL INTERFACE SYSTEM 12/19/2005 5:01 PM CDT Sesar Rayo MD POINT OF CARE TESTING Final Re sult Performing Organization Address [facility] de Phone Number INTERFACE SYSTEM Refer to clinic/hospital department * (ABNORMAL) POC GLUCOSE (12/19/2005 12:04 PM CDT) GLUCOSE POC 148(H) 60 - 100 mg/dL INTERFACE SYSTEM 12/19/2005 12:0 4 PM CDT Sesar Rayo MD POINT OF CARE TESTING Final Re sult Performing Organization Address [facility] de Phone Number INTERFACE SYSTEM Refer to clinic/hospital department * (ABNORMAL) POC GLUCOSE (12/19/2005 5:49 AM CDT) GLUCOSE POC 196(H) 60 - 100 mg/dL INTERFACE SYSTEM 12/19/2005 5:49 AM CDT Sesar Rayo MD POINT OF CARE TESTING Final Re sult Performing Organization Address [facility] Phone Number INTERFACE SYSTEM Refer [...] ORDERABLES Final Re sult Performing Organization Address [facility] Phone Number INTERFACE SYSTEM Refer [...] ORDERABLES Final Res ult Performing Organization Address [facility] Phone Number INTERFACE SYSTEM Refer to clinic/hospital department * (ABNORMAL) POC GLUCOSE (12/18/2005 9:27 PM CDT) GLUCOSE POC 230(H) 60 - 100 mg/dL INTERFACE SYSTEM 12/18/2005 9:27 PM CDT Sesar Rayo MD POINT OF CARE TESTING Final Re sult Performing Organization Address [facility] Phone Number INTERFACE SYSTEM Refer to clinic/hospital department * (ABNORMAL) POC GLUCOSE (12/18/2005 5:21 PM CDT) GLUCOSE POC 194(H) 60 - 100 mg/dL INTERFACE SYSTEM 12/18/2005 5:21 PM CDT us Sesar Rayo MD POINT OF CARE TESTING Final Jodee pollock Performing Organization Address [facility] Phone Number INTERFACE SYSTEM Refer to clinic/hospital department * (ABNORMAL) POC GLUCOSE (12/18/2005 12:31 PM CDT) GLUCOSE POC 137(H) 60 - 100 mg/dL INTERFACE SYSTEM 12/18/2005 12:3 1 PM CDT us Sesar Rayo MD POINT OF CARE TESTING German pollock Performing Organization Address [facility] Phone Number INTERFACE SYSTEM Refer to clinic/hospital department documented in this encounter Visit Diagnoses Diagnosis Localized osteoarthrosis not specified whether primary or secondary, lower leg- Primary documented in this encounter Care Teams Direct Chill Casting Operator Relationship Specialty Start Date End Date Non-Staff, Physician NO ADDRESS ON FILE PCP - General 08/30/13 documented as of this encounter
--- OUTSIDE RECORDS SUMMARY | 2025-01-04 21:14 | XMS_ITS | Encounter Summary ---
Author Organization [employer] [facility] Address [address] [place] [address] Care Team Providers Care Nuclear Medicine Tech Name Role Phone Non-Staff, Physician Primary Care Provider Unava ilable Encounter Details Date Type Department Care Team (Late [facility] Info) Description 08/30/2003 Outpatient Historical [facility] [place] [address] [facility] [address] [place] [id number] Social History Tobacco Use Types Packs/Day Years Used Date Smoking Tobacco: Never Assessed Comments Unknown Sex and Gender Information Value Date Recorded Sex Assigned at Not on file 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
--- OUTSIDE RECORDS SUMMARY | 2025-01-04 21:14 | XMS_ITS | Encounter Summary ---
Author Organization [employer] Address 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 Gender Identity Not on file Sexual Orientation [...] (ABNORMAL) C-REACTIVE PROTEIN (09/18/2024 4:10 AM CDT) Pathologist [facility] CRP 83.4(H) 0.0 - 5.0 mg/L 09/18/2024 6:04 AM CDT [facility] Blood Collection / Unknown 09/18/2024 4:10 AM CDT 09/18/2024 5:28 AM CDT Harry Reyes DO CHEMISTRY ORDERABLES Final R esult [facility] CLIA # [id number] [address] [place] [address] * (ABNORMAL) CBC WITH DIFFERENTIAL (09/18/2024 4:10 AM CDT) [facility] WBC 10.2 4.8 - 10.8 K/uL 09/18/2024 5:39 AM CDT [facility] RBC 3.10(L) 4.20 - 5.40 M/uL 09/18/2024 5:39 AM CDT [facility] HEMOGLOBIN 8.5(L) 12.0 - 16.0 g/dL 09/18/2024 5:39 AM CDT [facility] HEMATOCRIT 27.7(L) 36.0 - 46.0 % 09/18/2024 5:39 AM CDT [facility] MCV 89.4 84.0 - 103.0 fL 09/18/2024 5:39 AM CDT [facility] MCH 27.4 27.0 - 34.0 pg 09/18/2024 5:39 AM CDT [facility] MCHC 30.7 30.0 - 35.0 g/dL 09/18/2024 5:39 AM [facility] PLATELETS 475(H) 140 - 440 K/uL 09/18/2024 5:39 AM [facility] MPV 10.6 8.9 - 12.8 fL 09/18/2024 5:39 AM [facility] RDW 19.8(H) 11.0 - 14.5 % 09/18/2024 5:39 AM [facility] RDW-STDEV 63.0(H) 37.0 - 54.0 fL 09/18/2024 5:39 AM [facility] NEUTROPHILS 64 42 - 75 % 09/18/2024 5:39 AM [facility] LYMPHOCYTES 19(L) 24 - 44 % 09/18/2024 5:39 AM [facility] MONOCYTES 9 2 - 10 % 09/18/2024 5:39 AM [facility] EOSINOPHILS 4 0 - 7 % 09/18/2024 5:39 AM [facility] BASOPHILS 0 0 - 1 % 09/18/2024 5:39 AM [facility] IMMATURE GRANULOCYTES 5(H) 0 - 2 % 09/18/2024 5:39 AM [facility] NEUTROPHIL ABSOLUTE 6.49 2.00 - 8.00 K/uL 09/18/2024 5:39 AM [facility] LYMPHOCYTE ABSOLUTE 1.89 1.20 - 4.00 K/uL 09/18/2024 5:39 AM [facility] MONOCYTE ABSOLUTE 0.89(H) 0.10 - 0.60 K/uL 09/18/2024 5:39 AM [facility] EOSINOPHIL ABSOLUTE 0.38 0.00 - 0.70 K/uL 09/18/2024 5:39 AM [facility] BASOPHILS ABSOLUTE 0.04 0.00 - 0.20 K/uL 09/18/2024 5:39 AM [facility] IMMATURE GRANULOCYTES ABSOLUTE 0.49(H) 0.00 - 0.10 K/uL 09/18/2024 5:39 AM CDT [facility] SMEAR REVIEWED: NA - Not Applicable 09/18/2024 5:39 AM CDT [facility] Blood Collection / Unknown 09/18/2024 4:10 AM CDT 09/18/2024 5:29 AM CDT Harry Reyes DO HEMATOLOGY ORDERABLES Final Result [facility] CLIA # [id number] [address] [address] [place] [address] * (ABNORMAL) COMPREHENSIVE METABOLIC PANEL (09/18/2024 4:10 AM CDT) SODIUM 136 136 - 145 mmol/L 09/18/2024 1:27 PM CDT [facility] Comment: ISE malfunction. Notified Licha Richardson RN. This is a corrected result. Previous result was 125 mmol/L on 09/18/2024 at 0606 CDT POTASSIUM 3.8 3.5 - 5.1 mmol/L 09/18/2024 1:27 PM T [facility] Comment: ISE malfunction. Notified Licha Richarsdon RN. This is a corrected result. Previous result was 3.5 mmol/L on 09/18/2024 at 0606 CDT CHLORIDE 100 98 - 107 mmol/L 09/18/2024 1:27 PM CDT [facility] Comment: ISE malfunction. Notified Licha Richardson RN. This is a corrected result. Previous result was 92 mmol/L on 09/18/2024 at 0606 CDT CO2 25 22 - 29 mmol/L 09/18/2024 1:27 PM CDT [facility] CALCIUM 7.9(L) 8.8 - 10.2 mg/dL 09/18/2024 1:27 PM CDT [facility] BUN 10 8 - 23 mg/dL 09/18/2024 1:27 PM CDT [facility] CREATININE 0.62 0.51 - 0.95 mg/dL 09/18/2024 1:27 PM T [facility] Comment:The GFR result is no t clinically significant on patients <18 or >70 years of age. GLUCOSE 146(H) 74 - 99 mg/dL 09/18/2024 1:27 PM T [facility] TOTAL PROTEIN 5.5(L) 6.4 - 8.3 g/dL 09/18/2024 1:27 PM [facility] ALBUMIN 2.5(L) 3.5 - 5.2 g/dL 09/18/2024 1:27 PM [facility] BILIRUBIN TOTAL 0.2 0.0 - 1.0 mg/dL 09/18/2024 1:27 PM [facility] ALKALINE PHOSPHATASE 102 35 - 104 U/L 09/18/2024 1:27 PM [facility] AST 81(H) 10 - 35 U/L 09/18/2024 1:27 PM [facility] ALT 61(H) <=35 U/L 09/18/2024 1:27 PM [facility] GFR >60 mL/min/1.7 3 sq meter 09/18/2024 1:27 PM [facility] Comment:eGFR calculated with 2020 CKD-EPI equation. Vegetarian diet, extremely high or low muscle mass, and may affect results. Cystatin C with Glomerular Filtration Rate is a suitable alternative for these patients. ANION GAP 11 9 - 20 mmol/L 09/18/2024 1:27 PM T [facility] Comment: ISE malfunction. Notified Licha Richardson RN. This is a corrected result. Previous result was 8 mmol/L on 09/18/2024 at 0606 CDT Blood Collection / Unknown 09/18/2024 4:10 AM CDT 09/18/2024 5:28 AM CDT us Harry Reyes DO CHEMISTRY ORDERABLES Edited Result - Final [facility] CLIA # [id number] [address] [address] [place] [address] documented in this encounter Visit Diagnoses Not [...] 11/17/2024 R/O GI Pathogen 11/16/2024 11/17/2024 11/17/2024 4:19 AM CDT documented as of this encounter Care Teams Offal Baler Relationship Specialty Start Date End Date Non-Staff, Physician NO ADDRESS ON FILE PCP - General 08/30/13 documented as of this encounter
--- OUTSIDE RECORDS SUMMARY | 2025-01-04 21:14 | XMS_ITS | Encounter Summary ---
Author Organization [employer] Address 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 S Rorystal, RN, Infection Prevention 10/27/2024 11/17/2024 R/O GI Pathogen 11/16/2024 11/17/2024 11/17/2024 4 :19 AM CDT documented as of this encounter Care Teams Edge Trimming Machine Operator Relationship Specialty Start Date End Date Non-Staff, Physician NO ADDRESS ON FILE PCP - General 08/30/13 documented as of this encounter
--- OUTSIDE RECORDS SUMMARY | 2025-01-04 21:14 | XMS_ITS | Encounter Summary ---
Author Organization [facility] Address [address] [place] [address] Care Team Providers Care Telephone Service Representative Name Role Phone Non-Staff, Physician Primary Care Provider Unava ilable Encounter Details Date Type Department Care Team (Latest Contact Info) Description 04/18/2005 Outpatient Historical [facility] Family Medicine- [address] [place] [address] Wanda Castro MD NO ADDRESS ON FILE HYPERTENSION NOS (Primary Dx) Social History Tobacco Use Types Packs/Day Years Used Date Smoking Tobacco: Never Assessed Comments Unknown Sex and Gender Information Value Date Recorded Sex Assigned at Not on file 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
--- OUTSIDE RECORDS SUMMARY | 2025-01-04 21:14 | XMS_ITS | Encounter Summary ---
Author Organization [employer] Address [address] [place] [address] Care Team Providers Care Repair Mechanic Name Role Phone Non-Staff, Physician Primary Care Provider Unava ilable Encounter Details Date Type Department Care Team (Late st Contact Info) Description 10/10/[address] 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 Gender Identity Not on file Sexual [...] (ABNORMAL) C-REACTIVE PROTEIN (10/10/2024 4:28 AM CDT) [facility] CRP 48.2(H) 0.0 - 5.0 mg/L 10/10/2024 6:08 AM CDT [facility] Blood Collection / Unknown 10/10/2024 4:28 AM CDT 10/10/2024 5:32 AM CDT us External Provider [facility] CHEMISTRY ORDERABLES Final Result Performing Organization Address City/State/[facility] Co de Phone Number [facility] CLIA # [id number] [address] [place] [address] * (ABNORMAL) CBC WITH DIFFERENTIAL (10/10/2024 4:28 AM CDT) [facility] WBC 7.5 4.8 - 10.8 K/uL 10/10/2024 5:34 AM CDT [facility] RBC 3.81(L) 4.20 - 5.40 M/uL 10/10/2024 5:34 AM CDT [facility] HEMOGLOBIN 10.6(L) 12.0 - 16.0 g/dL 10/10/2024 5:34 AM CDT [facility] HEMATOCRIT 34.1(L) 36.0 - 46.0 % 10/10/2024 5:34 AM CDT [facility] MCV 89.5 84.0 - 103.0 fL 10/10/2024 5:34 AM CDT [facility] MCH 27.8 27.0 - 34.0 pg 10/10/2024 5:34 AM CDT [facility] MCHC 31.1 30.0 - 35.0 g/dL 10/10/2024 5:34 AM CDT [facility] PLATELETS 381 140 - 440 K/uL 10/10/2024 5:34 AM T [facility] MPV 10.1 8.9 - 12.8 fL 10/10/2024 5:34 AM [facility] RDW 16.1(H) 11.0 - 14.5 % 10/10/2024 5:34 AM [facility] RDW-STDEV 52.8 37.0 - 54.0 fL 10/10/2024 5:34 AM CDT [facility] NEUTROPHILS 53 42 - 75 % 10/10/2024 5:[facility] LYMPHOCYTES 29 24 - 44 % 10/10/2024 5:34 AM [facility] MONOCYTES 11(H) 2 - 10 % 10/10/2024 5:[facility] EOSINOPHILS 6 0 - 7 % 10/10/2024 5:34 AM [facility] BASOPHILS 1 0 - 1 % 10/10/2024 5:34 AM [facility] IMMATURE GRANULOCYTES 1 0 - 2 % 10/10/2024 5:34 AM [facility] NEUTROPHIL ABSOLUTE 3.94 2.00 - 8.00 K/uL 10/10/2024 5:34 AM [facility] LYMPHOCYTE ABSOLUTE 2.13 1.20 - 4.00 K/uL 10/10/2024 5:34 AM [facility] MONOCYTE ABSOLUTE 0.84(H) 0.10 - 0.60 K/uL 10/10/2024 5:34 AM CDT [facility] EOSINOPHIL ABSOLUTE 0.43 0.00 - 0.70 K/uL 10/10/2024 5:34 AM CDT [facility] BASOPHILS ABSOLUTE 0.05 0.00 - 0.20 K/uL 10/10/2024 5:34 AM CDT [facility] IMMATURE GRANULOCYTES ABSOLUTE 0.06 0.00 - 0.10 K/uL 10/10/2024 5:34 AM [facility] SMEAR REVIEWED: NA - Not Applicable 10/10/2024 5:34 AM [facility] Blood Collection / Unknown 10/10/2024 4:28 AM CDT 10/10/2024 5:30 AM CDT us External Provider [facility] HEMATOLOGY ORDERABLES Christiana l Result [facility] CLIA # [id number] [address] [place] [address] [place] [address] * (ABNORMAL) COMPREHENSIVE METABOLIC PANEL (10/10/2024 4:28 AM CDT) SODIUM 137 136 - 145 mmol/L 10/10/2024 6:08 AM [facility] POTASSIUM 3.9 3.5 - 5.1 mmol/L 10/10/2024 6:08 AM [facility] CHLORIDE 100 98 - 107 mmol/L 10/10/2024 6:08 AM [facility] CO2 25 22 - 29 mmol/L 10/10/2024 6:08 AM [facility] CALCIUM 8.9 8.8 - 10.2 mg/dL 10/10/2024 6:08 AM [facility] BUN 10 8 - 23 mg/dL 10/10/2024 6:08 AM [facility] CREATININE 0.48(L) 0.51 - 0.95 mg/dL 10/10/2024 6:08 AM [facility] Comment:The GFR result is no t clinically significant on patients <18 or >70 years of age. GLUCOSE 119(H) 74 - 99 mg/dL 10/10/2024 6:08 AM [facility] TOTAL PROTEIN 6.3(L) 6.4 - 8.3 g/dL 10/10/2024 6:08 AM [facility] ALBUMIN 2.7(L) 3.5 - 5.2 g/dL 10/10/2024 6:08 AM CDT [facility] BILIRUBIN TOTAL 0.2 0.0 - 1.0 mg/dL 10/10/2024 6:08 AM CDT [facility] ALKALINE PHOSPHATASE 72 35 - 104 U/L 10/10/2024 6:08 AM CDT [facility] AST 31 10 - 35 U/L 10/10/2024 6:08 AM CDT [facility] ALT 29 <=35 U/L 10/10/2024 6:08 AM T [facility] GFR >60 mL/min/1. 73 sq meter 10/10/2024 6:08 AM CDT [facility] Comment:eGFR calculated with 2020 CKD-EPI equation. Vegetarian diet, extremely high or low muscle mass, and may affect results. Cystatin C with Glomerular Filtration Rate is a suitable alternative for these patients. ANION GAP 12 9 - 20 mmol/L 10/10/2024 6:08 AM T [facility] Blood Collection / Unknown 10/10/2024 4:28 AM CDT 10/10/2024 5:32 AM CDT us External Provider [facility] CHEMISTRY ORDERABLES Final Result [facility] CLIA # [id number] [address] [place] [address] documented in this encounter Visit Diagnoses Not [...] documented as of this encounter Care Teams Repair Mechanic Relationship Specialty Start Date End Date Non-Staff, Physician NO ADDRESS ON FILE PCP - General 08/30/13 documented as of this encounter
--- OUTSIDE RECORDS SUMMARY | 2025-01-04 21:14 | XMS_ITS | Encounter Summary ---
Author Organization [employer] Address 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 Gender Identity Not on file Sexual Orientation [...] (ABNORMAL) MANUAL DIFFERENTIAL (09/17/2024 9:50 AM CDT) [facility] SEGMENTED NEUTROPHILS 82(H) 36 - 66 % 09/17/2024 11:03 AM T [facility] LYMPHOCYTES RELATIVE 5(L) 24 - 44 % 09/17/2024 11:03 AM T [facility] MONOCYTES RELATIVE 7 4 - 10 % 2024 11:03 AM [facility] EOSINOPHILS RELATIVE 3 0 - 3 % 09/17/2024 11:03 AM [facility] METAMYELOCYTES RELATIVE 1 0 - 1 % 09/17/2024 11:03 AM [facility] MYELOCYTES - REL (DIFF) 2(H) 0 - 1 % 09/17/2024 11:03 AM [facility] PLATELET EST. Adequate 09/17/2024 11:03 AM [facility] NEUTROPHILS ABSOLUTE COUNT 8.86(H) 2.00 - 8.00 K/uL 09/17/2024 11:03 AM [facility] LYMPHOCYTES ABSOLUTE 0.54(L) 1.20 - 4.00 K/uL 09/17/2024 11:03 AM [facility] ATYPICAL LYMPHS ABSOLUTE 09/17/2024 11:03 AM [facility] MONOCYTES ABSOLUTE 0.76(H) 0.10 - 0.60 K/uL 09/17/2024 11:03 AM [facility] EOSINOPHILS ABSOLUTE 0.32 0.00 - 0.70 K/uL 09/17/2024 11:03 AM [facility] ANISOCYTOSIS 2+ /hpf 09/17/2024 11:03 AM [facility] POIKILOCYTES 1+ /hpf 09/17/2024 11:03 AM [facility] POLYCHROMASIA 1+ /hpf 09/17/2024 11:03 AM CDT [facility] TOTAL CELLS COUNTED IN DIFF 100 09/17/2024 11:03 AM CDT [facility] Blood Collection / Unknown 09/17/2024 9:50 AM CDT 09/17/2024 10:34 AM CDT Harry Reyes DO HEMATOLOGY ORDERABLES COM Fi nal Result Performing Organization Address City/[facility]/ZIP Co de Phone Number [facility] CLIA # [id number] [address] [id number] * (ABNORMAL) C-REACTIVE PROTEIN (09/17/2024 9:50 AM CDT) Pathologist [facility] CRP 92.2(H) 0.0 - 5.0 mg/L 09/17/2024 11:16 AM T [facility] Blood Collection / Unknown 09/17/2024 9:50 AM CDT 09/17/2024 10:34 AM CDT Harry Reyes DO CHEMISTRY ORDERABLES Final R esult Performing Organization Address City/[facility]/ZIP Co de Phone Number [facility] CLIA # [id number] [address] [id number] * (ABNORMAL) CBC WITH DIFFERENTIAL (09/17/2024 9:50 AM CDT) WBC 10.8 4.8 - 10.8 K/uL 09/17/2024 11:03 AM CDT [facility] RBC 3.14(L) 4.20 - 5.40 M/uL 09/17/2024 11:03 AM [facility] HEMOGLOBIN 8.6(L) 12.0 - 16.0 g/dL 09/17/2024 11:03 AM [facility] HEMATOCRIT 27.1(L) 36.0 - 46.0 % 09/17/2024 11:03 AM [facility] MCV 86.3 84.0 - 103.0 fL 09/17/2024 11:03 AM [facility] MCH 27.4 27.0 - 34.0 pg 09/17/2024 11:03 AM [facility] MCHC 31.7 30.0 - 35.0 g/dL 09/17/2024 11:03 AM [facility] PLATELETS 433 140 - 440 K/uL 09/17/2024 11:03 AM [facility] MPV 10.4 8.9 - 12.8 fL 09/17/2024 11:03 AM [facility] RDW 19.7(H) 11.0 - 14.5 % 09/17/2024 11:03 AM [facility] RDW-STDEV 60.0(H) 37.0 - 54.0 fL 09/17/2024 11:03 AM [facility] SMEAR REVIEWED: - See Manual Diff. 09/17/2024 11:03 AM [facility] Blood Collection / Unknown 09/17/2024 9:50 AM CDT 09/17/2024 10:34 AM CDT us Harry Reyes DO HEMATOLOGY ORDERABLES Final Result [facility] CLIA # [id number] [address] [place] [address] [place], [place] [id number] * (ABNORMAL) COMPREHENSIVE METABOLIC PANEL (09/17/2024 9:50 AM CDT) SODIUM 133(L) 136 - 145 mmol/L 09/17/2024 11:16 AM [facility] POTASSIUM 4.6 3.5 - 5.1 mmol/L 09/17/2024 11:16 AM [facility] CHLORIDE 99 98 - 107 mmol/L 09/17/2024 11:16 AM [facility] CO2 23 22 - 29 mmol/L 09/17/2024 11:16 AM [facility] CALCIUM 7.8(L) 8.8 - 10.2 mg/dL 09/17/2024 11:16 AM [facility] BUN 12 8 - 23 mg/dL 09/17/2024 11:16 AM [facility] CREATININE 0.65 0.51 - 0.95 mg/dL 09/17/2024 11:16 AM [facility] Comment:The GFR result is no t clinically significant on patients <18 or >70 years of age. GLUCOSE 117(H) 74 - 99 mg/dL 09/17/2024 11:16 AM [facility] TOTAL PROTEIN 5.4(L) 6.4 - 8.3 g/dL 09/17/2024 11:16 AM [facility] ALBUMIN 2.3(L) 3.5 - 5.2 g/dL 09/17/2024 11:16 AM [facility] BILIRUBIN TOTAL 0.3 0.0 - 1.0 mg/dL 09/17/2024 11:16 AM [facility] ALKALINE PHOSPHATASE 104 35 - 104 U/L 09/17/2024 11:16 AM [facility] AST 89(H) 10 - 35 U/L 09/17/2024 11:16 AM [facility] ALT 60(H) <=35 U/L 09/17/2024 11:16 AM [facility] GFR >60 mL/min/1.7 3 sq meter 09/17/2024 11:16 AM [facility] Comment:eGFR calculated with 2020 CKD-EPI equation. Vegetarian diet, extremely high or low muscle mass, and may affect results. Cystatin C with Glomerular Filtration Rate is a suitable alternative for these patients. ANION GAP 11 9 - 20 mmol/L 09/17/2024 11:16 AM CDT [facility] Blood Collection / Unknown 09/17/2024 9:50 AM CDT 09/17/2024 10:34 AM CDT Harry Reyes DO CHEMISTRY ORDERABLES Final R esult [facility] CLIA # [id number] [address] [place] [address] documented in this encounter Visit Diagnoses Not [...] documented as of this encounter Care Teams Industrial X Ray Operator Relationship Specialty Start Date End Date Non-Staff, Physician NO ADDRESS ON FILE PCP - General 08/30/13 documented as of this encounter
--- OUTSIDE RECORDS SUMMARY | 2025-01-04 21:14 | XMS_ITS | Encounter Summary ---
Author Organization [employer] Address 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 Gender Identity Not on file Sexual Orientation Not on file documented as of this encounter Plan of Treatment Not on file documented as of this encounter Procedures Procedure Name Priority Date/Time Associated Diagnosis Comments URINE CULTURE Routine 10/17/2024 3:32 PM CDT documented in this encounter Results * URINE CULTURE (10/17/2024 3:32 PM CDT) CULTURE No growth 10/18/2024 1:06 PM CDT [facility] Urine Collection / Unknown 10/17/2024 3:32 PM CDT 10/17/2024 4:47 PM CDT us External Provider [facility] MICROBIOLOGY - GENERAL ORD ERABLES Final Result [facility] CLIA # [id number] [address] [address] [place] [address] documented in this encounter Visit Diagnoses Not [...] documented as of this encounter Care Teams Category Specialist Relationship Specialty Start Date End Date Non-Staff, Physician NO ADDRESS ON FILE PCP - General 08/30/13 documented as of this encounter
--- OUTSIDE RECORDS SUMMARY | 2025-01-04 21:14 | XMS_ITS | Encounter Summary ---
Author Organization [email or web address] Address 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 Gender Identity Not on file Sexual Orientation [...] and/or colonizing bacteria 10/13/2024 4:39 AM CDT [facility] c-crowd [facility] Urine URINE SPECIMEN OBTAINED BY CLEAN CATCH PROCEDURE / Unknown Collection / Unknown 10/12/2024 1:30 AM CDT 10/12/2024 6:20 AM CDT us External Provider [facility] MICROBIOLOGY - GENERAL ORD ERABLES Final Result [facility] CLIA # [id number] [address] * (ABNORMAL) URINALYSIS WITH REFLEX CULTURE (10/12/2024 1:30 AM CDT) COLOR UA Pale Yellow Pale to Dark Yellow 10/12/2024 6:20 AM CDT [facility] CLARITY UA Cloudy(A) Clear 10/12/2024 6:20 AM T [facility] SPECIFIC GRAVITY UA 1.004 1.003 - 1.035 10/12/2024 6:20 AM T [facility] PH UA 5.5 5.0 - 8.0 10/12/2024 6:20 AM T [facility] LEUKOCYTE ESTERASE UA 3+(A) Negative 10/12/2024 6:20 AM T [facility] c-crowd [facility] NITRITE UA Negative Negative 10/12/2024 6:20 AM T [facility] PROTEIN UA Trace(A) Negative 10/12/2024 6:20 AM T [facility] Comment: For patients with 'trace' results, consider ordering a culture and sensitivity if clinically indicated. GLUCOSE UA Negative Negative 10/12/2024 6:20 AM T [facility] KETONES UA Negative Negative 10/12/2024 6:20 AM CDT [facility] UROBILINOGEN UA <2.0 <2.0 mg/dL 6:20 AM CDT [facility] BILIRUBIN UA Negative Negative 10/12/2024 6:20 AM CDT [facility] BLOOD UA 3+(A) Negative 10/12/2024 6:20 AM CDT [facility] WBC UA >100(A) 0 - 2 /hpf 10/12/2024 6:20 AM CDT [facility] RBC UA 0-2 0 - 2 /hpf 10/12/2024 6:20 AM CDT [facility] BACTERIA UA 1+(A) Negative /hpf 10/12/2024 6:20 AM CDT [facility] EPITHELIAL CELLS, URINE 0-5 0 - 5 /hpf 10/12/2024 6:20 AM CDT [facility] WBC CLUMPS Present(A) Absent 10/12/2024 6:20 AM CDT [facility] Urine URINE SPECIMEN OBTAINED BY CLEAN CATCH PROCEDURE / Unknown Collection / Unknown 10/12/2024 1:30 AM CDT 10/12/2024 5:36 AM CDT Narrative [facility] - 10/12/2024 6:20 AM CDT Based on results, a urine culture has been reflexed. us External Provider [facility] URINE ORDERABLES Final Res ult [facility] CLIA # [id number] [address] [place] [address] documented in this encounter Visit Diagnoses Not [...] documented as of this encounter Care Teams Transformer Stock Clerk Relationship Specialty Start Date End Date Non-Staff, Physician NO ADDRESS ON FILE PCP - General 08/30/13 documented as of this encounter
--- OUTSIDE RECORDS SUMMARY | 2025-01-04 21:14 | XMS_ITS | Encounter Summary ---
Author Organization [employer] Address 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 Gender Identity Not on file Sexual Orientation [...] CBC WITH DIFFERENTIAL (09/19/2024 3:15 AM CDT) [facility] WBC 7.6 4.8 - 10.8 K/uL 09/19/2024 5:45 AM CDT [facility] RBC 2.92(L) 4.20 - 5.40 M/uL 09/19/2024 5:45 AM CDT [facility] HEMOGLOBIN 7.9(L) 12.0 - 16.0 g/dL 09/19/2024 5:45 AM CDT [facility] HEMATOCRIT 25.9(L) 36.0 - 46.0 % 09/19/2024 5:45 AM CDT [facility] MCV 88.7 84.0 - 103.0 fL 09/19/2024 5:45 AM CDT [facility] MCH 27.1 27.0 - 34.0 pg 09/19/2024 5:45 AM CDT [facility] MCHC 30.5 30.0 - 35.0 g/dL 09/19/2024 5:45 AM CDT [facility] PLATELETS 539(H) 140 - 440 K/uL 09/19/2024 5:45 AM CDT [facility] MPV 10.4 8.9 - 12.8 fL 09/19/2024 5:45 AM CDT [facility] RDW 19.4(H) 11.0 - 14.5 % 09/19/2024 5:45 AM CDT [facility] RDW-STDEV 61.8(H) 37.0 - 54.0 fL 09/19/2024 5:45 AM CDT [facility] NEUTROPHILS 61 42 - 75 % 09/19/2024 5:45 AM CDT [facility] LYMPHOCYTES 20(L) 24 - 44 % 09/19/2024 5:45 AM CDT [facility] MONOCYTES 11(H) 2 - 10 % 09/19/2024 5:45 AM CDT [facility] EOSINOPHILS 5 0 - 7 % 09/19/2024 5:45 AM CDT [facility] BASOPHILS 1 0 - 1 % 09/19/2024 5:45 AM CDT [facility] IMMATURE GRANULOCYTES 4(H) 0 - 2 % 09/19/2024 5:45 AM CDT [facility] NEUTROPHIL ABSOLUTE 4.62 2.00 - 8.00 K/uL 09/19/2024 5:45 AM CDT [facility] LYMPHOCYTE ABSOLUTE 1.48 1.20 - 4.00 K/uL 09/19/2024 5:45 AM CDT [facility] MONOCYTE ABSOLUTE 0.81(H) 0.10 - 0.60 K/uL 09/19/2024 5:45 AM CDT [facility] EOSINOPHIL ABSOLUTE 0.34 0.00 - 0.70 K/uL 09/19/2024 5:45 AM CDT [facility] BASOPHILS ABSOLUTE 0.05 0.00 - 0.20 K/uL 09/19/2024 5:45 AM CDT [facility] IMMATURE GRANULOCYTES ABSOLUTE 0.28(H) 0.00 - 0.10 K/uL 09/19/2024 5:45 AM CDT [facility] SMEAR REVIEWED: NN - No Action Needed 09/19/2024 5:45 AM CDT [facility] Blood Collection / Unknown 09/19/2024 3:15 AM CDT 09/19/2024 5:35 AM CDT us Harry Reyes DO HEMATOLOGY ORDERABLES Final Result [facility] CLIA # [id number] [address] [address] [place] [address] * (ABNORMAL) C-REACTIVE PROTEIN (09/19/2024 3:15 AM CDT) CRP 52.6(H) 0.0 - 5.0 mg/L 09/19/2024 6:20 AM CDT [facility] Blood Collection / Unknown 09/19/2024 3:15 AM CDT 09/19/2024 5:35 AM CDT Harry Reyes DO CHEMISTRY ORDERABLES Final R esult [facility] CLIA # [id number] [address] [place] [address] * (ABNORMAL) COMPREHENSIVE METABOLIC PANEL (09/19/2024 3:15 AM CDT) SODIUM 139 136 - 145 mmol/L 09/19/2024 6:20 AM T [facility] POTASSIUM 3.3(L) 3.5 - 5.1 mmol/L 09/19/2024 6:20 AM T [facility] CHLORIDE 102 98 - 107 mmol/L 09/19/2024 6:20 AM T [facility] CO2 26 22 - 29 mmol/L 09/19/2024 6:20 AM T [facility] CALCIUM 7.6(L) 8.8 - 10.2 mg/dL 09/19/2024 6:20 AM T [facility] BUN 9 8 - 23 mg/dL 09/19/2024 6:20 AM T [facility] CREATININE 0.61 0.51 - 0.95 mg/dL 09/19/2024 6:20 AM T [facility] Comment:The GFR result is no t clinically significant on patients <18 or >70 years of age. GLUCOSE 146(H) 74 - 99 mg/dL 09/19/2024 6:20 AM T [facility] TOTAL PROTEIN 5.2(L) 6.4 - 8.3 g/dL 09/19/2024 6:20 AM T [facility] ALBUMIN 2.3(L) 3.5 - 5.2 g/dL 09/19/2024 6:20 AM T [facility] BILIRUBIN TOTAL 0.2 0.0 - 1.0 mg/dL 09/19/2024 6:20 AM T [facility] ALKALINE PHOSPHATASE 85 35 - 104 U/L 09/19/2024 6:20 AM T [facility] AST 53(H) 10 - 35 U/L 09/19/2024 6:20 AM T [facility] ALT 47(H) <=35 U/L 09/19/2024 6:20 AM T [facility] GFR >60 mL/min/1.7 3 sq meter 09/19/2024 6:20 AM T [facility] Comment:eGFR calculated with 2020 CKD-EPI equation. Vegetarian diet, extremely high or low muscle mass, and may affect results. Cystatin C with Glomerular Filtration Rate is a suitable alternative for these patients. ANION GAP 11 9 - 20 mmol/L 09/19/2024 6:20 AM T [facility] Blood Collection / Unknown 09/19/2024 3:15 AM CDT 09/19/2024 5:35 AM CDT Harry Reyes DO CHEMISTRY ORDERABLES Final R esult [facility] CLIA # [id number] [address] [place] [address] documented in this encounter Visit Diagnoses Not [...] for the duration of their admission. S Jastal, RN, Infection Prevention 10/27/2024 11/17/2024 R/O GI Pathogen 11/16/2024 11/17/2024 11/17/2024 4 :19 AM CDT documented as of this encounter Care Teams Cleaning Maid Relationship Specialty Start Date End Date Non-Staff, Physician NO ADDRESS ON FILE PCP - General 08/30/13 documented as of this encounter
--- OUTSIDE RECORDS SUMMARY | 2025-01-04 21:14 | XMS_ITS | Encounter Summary ---
Author Organization [employer] Address 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 Gender Identity Not on file Sexual Orientation [...] (ABNORMAL) C-REACTIVE PROTEIN (10/17/2024 3:30 AM CDT) [facility] CRP 7.6(H) 0.0 - 5.0 mg/L 10/17/2024 7:02 AM CDT [facility] Blood Collection / Unknown 10/17/2024 3:30 AM CDT 10/17/2024 5:54 AM CDT External Provider [facility] CHEMISTRY ORDERABLES Final Result Performing Organization Address City/State/[facility] Co de Phone Number [facility] CLIA # [id number] [address] [place] [address] * (ABNORMAL) CBC WITH DIFFERENTIAL (10/17/2024 3:30 AM CDT) [facility] WBC 6.8 4.8 - 10.8 K/uL 10/17/2024 6:07 AM CDT [facility] RBC 4.46 4.20 - 5.40 M/uL 10/17/2024 6:07 AM CDT [facility] HEMOGLOBIN 12.1 12.0 - 16.0 g/dL 10/17/2024 6:07 AM CDT [facility] HEMATOCRIT 37.6 36.0 - 46.0 % 10/17/2024 6:07 AM CDT [facility] MCV 84.3 84.0 - 103.0 fL 10/17/2024 6:07 AM CDT [facility] MCH 27.1 27.0 - 34.0 pg 10/17/2024 6:07 AM CDT [facility] MCHC 32.2 30.0 - 35.0 g/dL 10/17/2024 6:07 AM CDT [facility] PLATELETS 442(H) 140 - 440 K/uL 10/17/2024 6:07 AM [facility] MPV 10.3 8.9 - 12.8 fL 10/17/2024 6:07 AM [facility] [employer] [facility] RDW 15.8(H) 11.0 - 14.5 % 10/17/2024 6:07 AM [facility] RDW-STDEV 49.0 37.0 - 54.0 fL 10/17/2024 6:07 AM [facility] NEUTROPHILS 41(L) 42 - 75 % 10/17/2024 6:07 AM [facility] LYMPHOCYTES 39 24 - 44 % 10/17/2024 6:07 AM [facility] MONOCYTES 12(H) 2 - 10 % 10/17/2024 6:07 AM [facility] EOSINOPHILS 7 0 - 7 % 10/17/2024 6:07 AM [facility] BASOPHILS 1 0 - 1 % 10/17/2024 6:07 AM [facility] IMMATURE GRANULOCYTES 0 0 - 2 % 10/17/2024 6:07 AM [facility] NEUTROPHIL ABSOLUTE 2.81 2.00 - 8.00 K/uL 10/17/2024 6:07 AM [facility] LYMPHOCYTE ABSOLUTE 2.61 1.20 - 4.00 K/uL 10/17/2024 6:07 AM [facility] MONOCYTE ABSOLUTE 0.79(H) 0.10 - 0.60 K/uL 10/17/2024 6:07 AM [facility] EOSINOPHIL ABSOLUTE 0.46 0.00 - 0.70 K/uL 10/17/2024 6:07 AM [facility] BASOPHILS ABSOLUTE 0.08 0.00 - 0.20 K/uL 10/17/2024 6:07 AM [facility] IMMATURE GRANULOCYTES ABSOLUTE 0.03 0.00 - 0.10 K/uL 10/17/2024 6:07 AM [facility] SMEAR REVIEWED: NA - Not Applicable 10/17/2024 6:07 AM [facility] Blood Collection / Unknown 10/17/2024 3:30 AM CDT 10/17/2024 5:54 AM CDT us External Provider [facility] HEMATOLOGY ORDERABLES Christiana hernandez Result [facility] CLIA # [id number] [address] [place] [address] [place] [address] * (ABNORMAL) COMPREHENSIVE METABOLIC PANEL (10/17/2024 3:30 AM CDT) SODIUM 134(L) 136 - 145 mmol/L 10/17/2024 7:02 AM [facility] POTASSIUM 3.8 3.5 - 5.1 mmol/L 10/17/2024 7:02 AM [facility] CHLORIDE 99 98 - 107 mmol/L 10/17/2024 7:02 AM [facility] CO2 17(L) 22 - 29 mmol/L 10/17/2024 7:02 AM [facility] CALCIUM 9.6 8.8 - 10.2 mg/dL 10/17/2024 7:02 AM [facility] BUN 8 8 - 23 mg/dL 10/17/2024 7:02 AM [facility] CREATININE 0.71 0.51 - 0.95 mg/dL 10/17/2024 7:02 AM [facility] Comment:The GFR result is no t clinically significant on patients <18 or >70 years of age. GLUCOSE 103(H) 74 - 99 mg/dL 10/17/2024 7:02 AM [facility] TOTAL PROTEIN 6.7 6.4 - 8.3 g/dL 10/17/2024 7:02 AM [facility] ALBUMIN 3.3(L) 3.5 - 5.2 g/dL 10/17/2024 7:02 AM [facility] BILIRUBIN TOTAL 0.2 0.0 - 1.0 mg/dL 10/17/2024 7:02 AM CDT [facility] ALKALINE PHOSPHATASE 70 35 - 104 U/L 10/17/2024 7:02 AM T [facility] AST 16 10 - 35 U/L 10/17/2024 7:02 AM T [facility] ALT 16 <=35 U/L 10/17/2024 7:02 AM T [facility] GFR >60 mL/min/1.7 3 sq meter 10/17/2024 7:02 AM CDT [facility] Comment:eGFR calculated with 2020 CKD-EPI equation. Vegetarian diet, extremely high or low muscle mass, and may affect results. Cystatin C with Glomerular Filtration Rate is a suitable alternative for these patients. ANION GAP 18 9 - 20 mmol/L 10/17/2024 7:02 AM T [facility] Blood Collection / Unknown 10/17/2024 3:30 AM CDT 10/17/2024 5:54 AM CDT us External Provider [facility] CHEMISTRY ORDERABLES Final Result [facility] CLIA # [id number] [address] [place] [address] documented in this encounter Visit Diagnoses Not [...] documented as of this encounter Care Teams Cafe Associate Relationship Specialty Start Date End Date Non-Staff, Physician NO ADDRESS ON FILE PCP - General 08/30/13 documented as of this encounter
--- OUTSIDE RECORDS SUMMARY | 2025-01-04 21:14 | XMS_ITS | Encounter Summary ---
Author Organization [facility] Address [address] [place] [address] Care Team Providers Care License Issuer Name Role Phone Non-Staff, Physician Primary Care Provider Unava ilable Encounter Details Date Type Department Care Team (Late st Contact Info) Description 04/12/2003 Outpatient Historical [facility] Family Medicine- [address] [place] [phone] Social History Tobacco Use Types Packs/Day Years Used Date Smoking Tobacco: Never Assessed Comments Unknown Sex and Gender Information Value Date Recorded Sex Assigned at Not on file 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
--- OUTSIDE RECORDS SUMMARY | 2025-01-04 21:14 | XMS_ITS | Encounter Summary ---
Author Organization [employer] Address 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 Gender Identity Not on file Sexual Orientation [...] COMPREHENSIVE METABOLIC PANEL (10/20/2024 3:35 AM CDT) SODIUM 138 136 - 145 mmol/L 10/20/2024 6:46 AM T [facility] POTASSIUM 3.3(L) 3.5 - 5.1 mmol/L 10/20/2024 6:46 AM [facility] CHLORIDE 108(H) 98 - 107 mmol/L 10/20/2024 6:46 AM [facility] CO2 17(L) 22 - 29 mmol/L 10/20/2024 6:46 AM [facility] CALCIUM 8.2(L) 8.8 - 10.2 mg/dL 10/20/2024 6:46 AM [facility] BUN 3(L) 8 - 23 mg/dL 10/20/2024 6:46 AM [facility] CREATININE 0.50(L) 0.51 - 0.95 mg/dL 10/20/2024 6:46 AM [facility] Comment:The GFR result is no t clinically significant on patients <18 or >70 years of age. GLUCOSE 115(H) 74 - 99 mg/dL 10/20/2024 6:46 AM [facility] TOTAL PROTEIN 5.5(L) 6.4 - 8.3 g/dL 10/20/2024 6:46 AM [facility] ALBUMIN 2.9(L) 3.5 - 5.2 g/dL 10/20/2024 6:46 AM [facility] BILIRUBIN TOTAL 0.2 0.0 - 1.0 mg/dL 10/20/2024 6:46 AM [facility] ALKALINE PHOSPHATASE 58 35 - 104 U/L 10/20/2024 6:46 AM [facility] AST 16 10 - 35 U/L 10/20/2024 6:46 AM [facility] ALT 13 <=35 U/L 10/20/2024 6:46 AM CDT [facility] GFR >60 mL/min/1. 73 sq meter 10/20/2024 6:46 AM CDT [facility] Comment:eGFR calculated with 2020 CKD-EPI equation. Vegetarian diet, extremely high or low muscle mass, and may affect results. Cystatin C with Glomerular Filtration Rate is a suitable alternative for these patients. ANION GAP 13 9 - 20 mmol/L 10/20/2024 6:46 AM T [facility] Blood Collection / Unknown 10/20/2024 3:35 AM CDT 10/20/2024 6:09 AM CDT us External Provider [facility] CHEMISTRY ORDERABLES Final Result Performing Organization Address City/State/[facility] Co de Phone Number [facility] CLIA # [id number] [address] [place] [address] * (ABNORMAL) CBC WITH DIFFERENTIAL (10/20/2024 3:35 AM CDT) WBC 4.7(L) 4.8 - 10.8 K/uL 10/20/2024 6:17 AM CDT [facility] RBC 3.82(L) 4.20 - 5.40 M/uL 10/20/2024 6:17 AM T [facility] HEMOGLOBIN 10.4(L) 12.0 - 16.0 g/dL 10/20/2024 6:17 AM T [facility] HEMATOCRIT 32.9(L) 36.0 - 46.0 % 10/20/2024 6:17 AM CDT [facility] MCV 86.1 84.0 - 103.0 fL 10/20/2024 6:17 AM CDT [facility] MCH 27.2 27.0 - 34.0 pg 10/20/2024 6:17 AM CDT [facility] MCHC 31.6 30.0 - 35.0 g/dL 10/20/2024 6:17 AM CDT [facility] PLATELETS 301 140 - 440 K/uL 10/20/2024 6:17 AM [facility] [facility] MPV 10.2 8.9 - 12.8 fL 10/20/2024 6:17 AM [facility] RDW 15.8(H) 11.0 - 14.5 % 10/20/2024 6:17 AM [facility] [employer] [facility] RDW-STDEV 49.5 37.0 - 54.0 fL 10/20/2024 6:17 AM [facility] [facility] NEUTROPHILS 43 42 - 75 % 10/20/2024 6:17 AM [facility] [facility] LYMPHOCYTES 39 24 - 44 % 10/20/2024 6:17 AM [facility] [facility] MONOCYTES 11(H) 2 - 10 % 10/20/2024 6:17 AM [facility] [employer] [facility] EOSINOPHILS 6 0 - 7 % 10/20/2024 6:17 AM [facility] [employer] [facility] BASOPHILS 1 0 - 1 % 10/20/2024 6:17 AM [facility] IMMATURE GRANULOCYTES 0 0 - 2 % 10/20/2024 6:17 AM [facility] NEUTROPHIL ABSOLUTE 2.01 2.00 - 8.00 K/uL 10/20/2024 6:17 AM [facility] [employer] [facility] LYMPHOCYTE ABSOLUTE 1.85 1.20 - 4.00 K/uL 10/20/2024 6:17 AM [facility] MONOCYTE ABSOLUTE 0.52 0.10 - 0.60 K/uL 10/20/2024 6:17 AM [facility] [employer] [facility] EOSINOPHIL ABSOLUTE 0.28 0.00 - 0.70 K/uL 10/20/2024 6:17 AM [facility] [employer] [facility] BASOPHILS ABSOLUTE 0.06 0.00 - 0.20 K/uL 10/20/2024 6:17 AM [facility] [employer] [facility] IMMATURE GRANULOCYTES ABSOLUTE 0.01 0.00 - 0.10 K/uL 10/20/2024 6:17 AM [facility] [employer] [facility] SMEAR REVIEWED: NA - Not Applicable 10/20/2024 6:17 AM CDT [facility] [employer] [facility] Blood Collection / Unknown 10/20/2024 3:35 AM CDT 10/20/2024 6:09 AM CDT us External Provider [facility] HEMATOLOGY ORDERABLES Christiana l Result [facility] CLIA # [id number] [facility] [address] [place] [address] documented in this encounter Visit Diagnoses Not [...] documented as of this encounter Care Teams Roper Operator Relationship Specialty Start Date End Date Non-Staff, Physician NO ADDRESS ON FILE PCP - General 08/30/13 documented as of this encounter
--- OUTSIDE RECORDS SUMMARY | 2025-01-04 21:14 | XMS_ITS | Encounter Summary ---
Author Organization [employer] Address 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 Gender Identity Not on file Sexual Orientation [...] COMPREHENSIVE METABOLIC PANEL (10/13/2024 2:41 AM CDT) SODIUM 136 136 - 145 mmol/L 10/13/2024 6:50 AM T [facility] POTASSIUM 3.3(L) 3.5 - 5.1 mmol/L 10/13/2024 6:50 AM T [facility] CHLORIDE 98 98 - 107 mmol/L 10/13/2024 6:50 AM T [facility] CO2 22 22 - 29 mmol/L 10/13/2024 6:50 AM [facility] CALCIUM 9.2 8.8 - 10.2 mg/dL 10/13/2024 6:50 AM [facility] BUN 8 8 - 23 mg/dL 10/13/2024 6:50 AM [facility] CREATININE 0.46(L) 0.51 - 0.95 mg/dL 10/13/2024 6:50 AM [facility] Comment:The GFR result is no t clinically significant on patients <18 or >70 years of age. GLUCOSE 94 74 - 99 mg/dL 10/13/2024 6:50 AM [facility] TOTAL PROTEIN 6.9 6.4 - 8.3 g/dL 10/13/2024 6:50 AM [facility] ALBUMIN 3.2(L) 3.5 - 5.2 g/dL 10/13/2024 6:50 AM [facility] BILIRUBIN TOTAL 0.3 0.0 - 1.0 mg/dL 10/13/2024 6:50 AM [facility] ALKALINE PHOSPHATASE 86 35 - 104 U/L 10/13/2024 6:50 AM [facility] AST 26 10 - 35 U/L 10/13/2024 6:50 AM [facility] ALT 33 <=35 U/L 10/13/2024 6:50 AM [facility] GFR >60 mL/min/1. 73 sq meter 10/13/2024 6:50 AM CDT [facility] Comment:eGFR calculated with 2020 CKD-EPI equation. Vegetarian diet, extremely high or low muscle mass, and may affect results. Cystatin C with Glomerular Filtration Rate is a suitable alternative for these patients. ANION GAP 16 9 - 20 mmol/L 10/13/2024 6:50 AM T [facility] Blood Collection / Unknown 10/13/2024 2:41 AM CDT 10/13/2024 6:05 AM CDT us External Provider [facility] CHEMISTRY ORDERABLES Final Result [facility] CLIA # [id number] [facility] [address] * (ABNORMAL) CBC WITH DIFFERENTIAL (10/13/2024 2:41 AM CDT) WBC 10.1 4.8 - 10.8 K/uL 10/13/2024 6:13 AM CDT [facility] RBC 4.31 4.20 - 5.40 M/uL 10/13/2024 6:13 AM T [facility] HEMOGLOBIN 11.7(L) 12.0 - 16.0 g/dL 10/13/2024 6:13 AM T [facility] HEMATOCRIT 36.7 36.0 - 46.0 % 10/13/2024 6:13 AM CDT [facility] MCV 85.2 84.0 - 103.0 fL 10/13/2024 6:13 AM CDT [facility] MCH 27.1 27.0 - 34.0 pg 10/13/2024 6:13 AM CDT [facility] MCHC 31.9 30.0 - 35.0 g/dL 10/13/2024 6:13 AM CDT [facility] PLATELETS 424 140 - 440 K/uL 10/13/2024 6:13 AM [facility] MPV 9.9 8.9 - 12.8 fL 10/13/2024 6:13 AM [facility] RDW 15.6(H) 11.0 - 14.5 % 10/13/2024 6:13 AM [facility] RDW-STDEV 48.0 37.0 - 54.0 fL 10/13/2024 6:13 AM [facility] NEUTROPHILS 67 42 - 75 % 10/13/2024 6:13 AM [facility] LYMPHOCYTES 20(L) 24 - 44 % 10/13/2024 6:13 AM [facility] MONOCYTES 9 2 - 10 % 10/13/2024 6:13 AM [facility] EOSINOPHILS 3 0 - 7 % 10/13/2024 6:13 AM [facility] BASOPHILS 1 0 - 1 % 10/13/2024 6:13 AM [facility] IMMATURE GRANULOCYTES 1 0 - 2 % 10/13/2024 6:13 AM [facility] NEUTROPHIL ABSOLUTE 6.79 2.00 - 8.00 K/uL 10/13/2024 6:13 AM [facility] LYMPHOCYTE ABSOLUTE 2.06 1.20 - 4.00 K/uL 10/13/2024 6:13 AM [facility] MONOCYTE ABSOLUTE 0.89(H) 0.10 - 0.60 K/uL 10/13/2024 6:13 AM [facility] EOSINOPHIL ABSOLUTE 0.28 0.00 - 0.70 K/uL 10/13/2024 6:13 AM [facility] BASOPHILS ABSOLUTE 0.06 0.00 - 0.20 K/uL 10/13/2024 6:13 AM [facility] IMMATURE GRANULOCYTES ABSOLUTE 0.06 0.00 - 0.10 K/uL 10/13/2024 6:13 AM [facility] SMEAR REVIEWED: NA - Not Applicable 10/13/2024 6:13 AM [facility] Blood Collection / Unknown 10/13/2024 2:41 AM CDT 10/13/2024 6:05 AM CDT External Provider [facility] HEMATOLOGY ORDERABLES Christiana hernandez Result [id number] [address] [place] [address] documented in this encounter Visit Diagnoses Not [...] documented as of this encounter Care Teams Chemical Process Project Engineer Relationship Specialty Start Date End Date Non-Staff, Physician NO ADDRESS ON FILE PCP - General 08/30/13 documented as of this encounter
--- OUTSIDE RECORDS SUMMARY | 2025-01-04 21:14 | XMS_ITS | Encounter Summary ---
Author Organization [facility] Address [address] [place] [address] Care Team Providers Care Staff Physical Therapist Name Role Phone Non-Staff, Physician Primary Care Provider Unava ilable Encounter Details Date Type Department Care Team (Latest Contact Info) Description 05/26/2005 Outpatient Historical [facility] Family Medicine- [place] [address] [place] [address] Wanda Castro MD NO ADDRESS ON FILE MALAISE AND FATIGUE NEC (Primary Dx); HYPERTENSION NOS Social History Tobacco Use Types Packs/Day Years Used Date Smoking Tobacco: Never Assessed Comments Unknown Sex and Gender Information Value Date Recorded Sex Assigned at Not on file 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
--- OUTSIDE RECORDS SUMMARY | 2025-01-04 21:14 | XMS_ITS | Encounter Summary ---
Author Organization [employer] Address 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 Increased 09/25/2024 9:34 AM CDT [facility] ANISOCYTOSIS 3+ /hpf 09/25/2024 9:34 AM CDT [facility] POLYCHROMASIA 1+ /hpf 09/25/2024 9:34 AM CDT [facility] Blood Collection / Unknown 09/25/2024 3:00 AM CDT 09/25/2024 8:55 AM CDT External Provider [facility] HEMATOLOGY ORDERABLES COM Final Result [facility] CLIA # [id number] [address] [place] [address] * (ABNORMAL) CBC WITH DIFFERENTIAL (09/25/2024 3:00 AM CDT) Pathologist [facility] WBC 8.3 4.8 - 10.8 K/uL 09/25/2024 9:34 AM CDT [facility] RBC 3.07(L) 4.20 - 5.40 M/uL 09/25/2024 9:34 AM CDT [facility] HEMOGLOBIN 8.7(L) 12.0 - 16.0 g/dL 09/25/2024 9:34 AM CDT [facility] HEMATOCRIT 28.5(L) 36.0 - 46.0 % 09/25/2024 9:34 AM CDT [facility] MCV 92.8 84.0 - 103.0 fL 09/25/2024 9:34 AM CDT [facility] MCH 28.3 27.0 - 34.0 pg 09/25/2024 9:34 AM CDT [facility] MCHC 30.5 30.0 - 35.0 g/dL 09/25/2024 9:34 AM [facility] PLATELETS 483(H) 140 - 440 K/uL 09/25/2024 9:34 AM [facility] MPV 10.6 8.9 - 12.8 fL 09/25/2024 9:34 AM [facility] RDW 20.1(H) 11.0 - 14.5 % 09/25/2024 9:34 AM [facility] RDW-STDEV 68.3(H) 37.0 - 54.0 fL 09/25/2024 9:34 AM [facility] NEUTROPHILS 62 42 - 75 % 09/25/2024 9:34 AM [facility] LYMPHOCYTES 22(L) 24 - 44 % 09/25/2024 9:34 AM [facility] MONOCYTES 9 2 - 10 % 09/25/2024 9:34 AM [facility] EOSINOPHILS 5 0 - 7 % 09/25/2024 9:34 AM [facility] BASOPHILS 1 0 - 1 % 09/25/2024 9:34 AM [facility] IMMATURE GRANULOCYTES 1 0 - 2 % 09/25/2024 9:34 AM [facility] NEUTROPHIL ABSOLUTE 5.18 2.00 - 8.00 K/uL 09/25/2024 9:34 AM [facility] LYMPHOCYTE ABSOLUTE 1.84 1.20 - 4.00 K/uL 09/25/2024 9:34 AM [facility] MONOCYTE ABSOLUTE 0.78(H) 0.10 - 0.60 K/uL 09/25/2024 9:34 AM [facility] EOSINOPHIL ABSOLUTE 0.39 0.00 - 0.70 K/uL 09/25/2024 9:34 AM [facility] BASOPHILS ABSOLUTE 0.06 0.00 - 0.20 K/uL 09/25/2024 9:34 AM [facility] IMMATURE GRANULOCYTES ABSOLUTE 0.07 0.00 - 0.10 K/uL 09/25/2024 9:34 AM [facility] SMEAR REVIEWED: SR - See Smear Review on Manual Diff. 09/25/2024 9:34 AM CDT [facility] Blood Collection / Unknown 09/25/2024 3:00 AM CDT 09/25/2024 8:55 AM CDT us External Provider [facility] HEMATOLOGY ORDERABLES Christiana l Result [facility] CLIA # [id number] [address] [address] [place] [address] documented in this encounter Visit Diagnoses Not [...] documented as of this encounter Care Teams Line Installer Trolley Relationship Specialty Start Date End Date Non-Staff, Physician NO ADDRESS ON FILE PCP - General 08/30/13 documented as of this encounter
--- OUTSIDE RECORDS SUMMARY | 2025-01-04 21:14 | XMS_ITS | Encounter Summary ---
Author Organization [employer] Address 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 This patient does require Enteric isolation for the duration of their admission. Patricia Hendrix RN, Infection Prevention 10/27/2024 11/17/2024 documented as of this encounter Care Teams Top Inventory Control Executive Relationship Specialty Start Date End Date Non-Staff, Physician NO ADDRESS ON FILE PCP - General 08/30/13 documented as of this encounter
--- OUTSIDE RECORDS SUMMARY | 2025-01-04 21:14 | XMS_ITS | Encounter Summary ---
Author Organization [employer] Address 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 Gender Identity Not on file Sexual Orientation Not on file documented as of this encounter Plan of Treatment Not on file documented as of this encounter Procedures Procedure Name Priority Date/Time Associated Diagnosis Comments TSH Routine 09/22/2024 3:15 PM CDT documented in this encounter Results * (ABNORMAL) TSH (09/22/2024 3:15 PM CDT) TSH 5.47(H) 0.27 - 4.20 uIU/mL 09/22/2024 7:14 PM CDT [facility] Blood Collection / Unknown 09/22/2024 3:15 PM CDT 09/22/2024 6:43 PM CDT us Harry Reyes DO CHEMISTRY ORDERABLES Final R esult [facility] CLIA # [id number] [address] [place] [address] documented in this encounter Visit Diagnoses Not [...] documented as of this encounter Care Teams Can Slider Relationship Specialty Start Date End Date Non-Staff, Physician NO ADDRESS ON FILE PCP - General 08/30/13 documented as of this encounter
--- OUTSIDE RECORDS SUMMARY | 2025-01-04 21:14 | XMS_ITS | Clinical Summary ---
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
--- OUTSIDE RECORDS SUMMARY | 2025-01-04 21:14 | XMS_ITS | Encounter Summary ---
Author Organization [employer] Address 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 Gender Identity Not on file Sexual Orientation [...] - 5.0 mg/L 09/26/2024 6:12 AM CDT [facility] Blood Collection / Unknown 09/26/2024 4:52 AM CDT 09/26/2024 5:26 AM CDT us External Provider [facility] CHEMISTRY ORDERABLES Final Result Performing Organization Address City/State/[facility] Co de Phone Number [facility] CLIA # [id number] [address] [place] [address] * (ABNORMAL) CBC WITH DIFFERENTIAL (09/26/2024 4:52 AM CDT) [facility] WBC 7.3 4.8 - 10.8 K/uL 09/26/2024 5:39 AM CDT [facility] RBC 3.32(L) 4.20 - 5.40 M/uL 09/26/2024 5:39 AM CDT [facility] HEMOGLOBIN 9.3(L) 12.0 - 16.0 g/dL 09/26/2024 5:39 AM CDT [facility] HEMATOCRIT 30.8(L) 36.0 - 46.0 % 09/26/2024 5:39 AM CDT [facility] MCV 92.8 84.0 - 103.0 fL 09/26/2024 5:39 AM CDT [facility] MCH 28.0 27.0 - 34.0 pg 09/26/2024 5:39 AM CDT [facility] MCHC 30.2 30.0 - 35.0 g/dL 09/26/2024 5:39 AM CDT [facility] PLATELETS 437 140 - 440 K/uL 09/26/2024 5:39 AM T [facility] MPV 9.8 8.9 - 12.8 fL 09/26/2024 5:39 AM [facility] RDW 19.7(H) 11.0 - 14.5 % 09/26/2024 5:39 AM [facility] RDW-STDEV 66.9(H) 37.0 - 54.0 fL 09/26/2024 5:39 AM T [facility] NEUTROPHILS 58 42 - 75 % 09/26/2024 5:39 AM [facility] LYMPHOCYTES 25 24 - 44 % 09/26/2024 5:39 AM [facility] MONOCYTES 10 2 - 10 % 09/26/2024 5:39 AM [facility] EOSINOPHILS 6 0 - 7 % 09/26/2024 5:39 AM [facility] BASOPHILS 1 0 - 1 % 09/26/2024 5:39 AM [facility] IMMATURE GRANULOCYTES 1 0 - 2 % 09/26/2024 5:39 AM [facility] NEUTROPHIL ABSOLUTE 4.21 2.00 - 8.00 K/uL 09/26/2024 5:39 AM [facility] LYMPHOCYTE ABSOLUTE 1.83 1.20 - 4.00 K/uL 09/26/2024 5:39 AM [facility] MONOCYTE ABSOLUTE 0.70(H) 0.10 - 0.60 K/uL 09/26/2024 5:39 AM [facility] EOSINOPHIL ABSOLUTE 0.41 0.00 - 0.70 K/uL 09/26/2024 5:39 AM [facility] BASOPHILS ABSOLUTE 0.06 0.00 - 0.20 K/uL 09/26/2024 5:39 AM [facility] IMMATURE GRANULOCYTES ABSOLUTE 0.06 0.00 - 0.10 K/uL 09/26/2024 5:39 AM [facility] SMEAR REVIEWED: NN - No Action Needed 09/26/2024 5:39 AM T [facility] Blood Collection / Unknown 09/26/2024 4:52 AM CDT 09/26/2024 5:26 AM CDT us External Provider [facility] HEMATOLOGY ORDERABLES Christiana l Result [facility] CLIA # [id number] [facility] [address] [place] [address] * (ABNORMAL) COMPREHENSIVE METABOLIC PANEL (09/26/2024 4:52 AM CDT) SODIUM 137 136 - 145 mmol/L 09/26/2024 6:12 AM T [facility] POTASSIUM 3.9 3.5 - 5.1 mmol/L 09/26/2024 6:12 AM [facility] CHLORIDE 101 98 - 107 mmol/L 09/26/2024 6:12 AM T [facility] CO2 25 22 - 29 mmol/L 09/26/2024 6:12 AM T [facility] CALCIUM 8.5(L) 8.8 - 10.2 mg/dL 09/26/2024 6:12 AM [facility] BUN 14 8 - 23 mg/dL 09/26/2024 6:12 AM T [facility] CREATININE 0.51 0.51 - 0.95 mg/dL 09/26/2024 6:12 AM T [facility] Comment:The GFR result is no t clinically significant on patients <18 or >70 years of age. GLUCOSE 155(H) 74 - 99 mg/dL 09/26/2024 6:12 AM [facility] TOTAL PROTEIN 6.1(L) 6.4 - 8.3 g/dL 09/26/2024 6:12 AM [facility] ALBUMIN 2.7(L) 3.5 - 5.2 g/dL 09/26/2024 6:12 AM CDT [facility] BILIRUBIN TOTAL 0.2 0.0 - 1.0 mg/dL 09/26/2024 6:12 AM CDT [facility] ALKALINE PHOSPHATASE 80 35 - 104 U/L 09/26/2024 6:12 AM CDT [facility] AST 42(H) 10 - 35 U/L 09/26/2024 6:12 AM CDT [facility] ALT 36(H) <=35 U/L 09/26/2024 6:12 AM CDT [facility] GFR >60 mL/min/1.7 3 sq meter 09/26/2024 6:12 AM CDT [facility] Comment:eGFR calculated with 2020 CKD-EPI equation. Vegetarian diet, extremely high or low muscle mass, and may affect results. Cystatin C with Glomerular Filtration Rate is a suitable alternative for these patients. ANION GAP 11 9 - 20 mmol/L 09/26/2024 6:12 AM CDT [facility] Blood Collection / Unknown 09/26/2024 4:52 AM CDT 09/26/2024 5:26 AM CDT us External Provider [facility] CHEMISTRY ORDERABLES Final Result Performing Organization Address City/State/[facility] Co de Phone Number [facility] CLIA # [id number] [address] [place] [address] documented in this encounter Visit Diagnoses Not [...] documented as of this encounter Care Teams Graphic Art Sales Representative Relationship Specialty Start Date End Date Non-Staff, Physician NO ADDRESS ON FILE PCP - General 08/30/13 documented as of this encounter
--- OUTSIDE RECORDS SUMMARY | 2025-01-04 21:14 | XMS_ITS | Encounter Summary ---
Author Organization [employer] Address 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
--- OUTSIDE RECORDS SUMMARY | 2025-01-04 21:14 | XMS_ITS | Encounter Summary ---
Author Organization [facility] Address 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
--- OUTSIDE RECORDS SUMMARY | 2025-01-04 21:14 | XMS_ITS | Encounter Summary ---
Author Organization [employer] Address 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 Gender Identity Not on file Sexual Orientation [...] CBC WITH DIFFERENTIAL (10/03/2024 3:20 AM CDT) [facility] WBC 11.1(H) 4.8 - 10.8 K/uL 10/03/2024 5:53 AM CDT [facility] RBC 3.59(L) 4.20 - 5.40 M/uL 10/03/2024 5:53 AM CDT [facility] HEMOGLOBIN 9.9(L) 12.0 - 16.0 g/dL 10/03/2024 5:53 AM CDT [facility] HEMATOCRIT 32.7(L) 36.0 - 46.0 % 10/03/2024 5:53 AM CDT [facility] MCV 91.1 84.0 - 103.0 fL 10/03/2024 5:53 AM CDT [facility] MCH 27.6 27.0 - 34.0 pg 10/03/2024 5:53 AM CDT [facility] MCHC 30.3 30.0 - 35.0 g/dL 10/03/2024 5:53 AM CDT [facility] PLATELETS 396 140 - 440 K/uL 10/03/2024 5:53 AM T [facility] MPV 10.7 8.9 - 12.8 fL 10/03/2024 5:53 AM CDT [facility] RDW 17.6(H) 11.0 - 14.5 % 10/03/2024 5:53 AM T [facility] RDW-STDEV 59.0(H) 37.0 - 54.0 fL 10/03/2024 5:53 AM CDT [facility] NEUTROPHILS 68 42 - 75 % 10/03/2024 5:53 AM CDT [facility] LYMPHOCYTES 18(L) 24 - 44 % 10/03/2024 5:53 AM CDT [facility] MONOCYTES 9 2 - 10 % 10/03/2024 5:53 AM CDT [facility] EOSINOPHILS 4 0 - 7 % 10/03/2024 5:53 AM CDT [facility] BASOPHILS 0 0 - 1 % 10/03/2024 5:53 AM CDT [facility] IMMATURE GRANULOCYTES 1 0 - 2 % 10/03/2024 5:53 AM CDT [facility] NEUTROPHIL ABSOLUTE 7.58 2.00 - 8.00 K/uL 10/03/2024 5:53 AM CDT [facility] LYMPHOCYTE ABSOLUTE 2.00 1.20 - 4.00 K/uL 10/03/2024 5:53 AM CDT [facility] MONOCYTE ABSOLUTE 1.04(H) 0.10 - 0.60 K/uL 10/03/2024 5:53 AM CDT [facility] EOSINOPHIL ABSOLUTE 0.41 0.00 - 0.70 K/uL 10/03/2024 5:53 AM CDT [facility] BASOPHILS ABSOLUTE 0.05 0.00 - 0.20 K/uL 10/03/2024 5:53 AM CDT [facility] IMMATURE GRANULOCYTES ABSOLUTE 0.06 0.00 - 0.10 K/uL 10/03/2024 5:53 AM CDT [facility] SMEAR REVIEWED: NA - Not Applicable 10/03/2024 5:53 AM CDT [facility] Blood Collection / Unknown 10/03/2024 3:20 AM CDT 10/03/2024 5:43 AM CDT us Harry Reyes DO HEMATOLOGY ORDERABLES Final Result [facility] CLIA # [id number] [address] [address] [place] [address] * (ABNORMAL) C-REACTIVE PROTEIN (10/03/2024 3:20 AM CDT) CRP 258.3(H) 0.0 - 5.0 mg/L 10/03/2024 6:21 AM T [facility] Blood Collection / Unknown 10/03/2024 3:20 AM CDT 10/03/2024 5:43 AM CDT Harry Reyes DO CHEMISTRY ORDERABLES Final R esult [facility] CLIA # [id number] [address] [address] [place] [address] * (ABNORMAL) COMPREHENSIVE METABOLIC PANEL (10/03/2024 3:20 AM CDT) Pathologist [facility] SODIUM 133(L) 136 - 145 mmol/L 10/03/2024 6:21 AM T [facility] POTASSIUM 4.0 3.5 - 5.1 mmol/L 10/03/2024 6:21 AM [facility] CHLORIDE 96(L) 98 - 107 mmol/L 10/03/2024 6:21 AM T [facility] CO2 22 22 - 29 mmol/L 10/03/2024 6:21 AM T [facility] CALCIUM 8.6(L) 8.8 - 10.2 mg/dL 10/03/2024 6:21 AM T [facility] BUN 15 8 - 23 mg/dL 10/03/2024 6:21 AM T [facility] CREATININE 0.51 0.51 - 0.95 mg/dL 10/03/2024 6:21 AM T [facility] Comment:The GFR result is no t clinically significant on patients <18 or >70 years of age. GLUCOSE 144(H) 74 - 99 mg/dL 10/03/2024 6:21 AM T [facility] TOTAL PROTEIN 6.4 6.4 - 8.3 g/dL 10/03/2024 6:21 AM [facility] ALBUMIN 2.5(L) 3.5 - 5.2 g/dL 10/03/2024 6:21 AM T [facility] BILIRUBIN TOTAL 0.2 0.0 - 1.0 mg/dL 10/03/2024 6:21 AM T [facility] ALKALINE PHOSPHATASE 70 35 - 104 U/L 10/03/2024 6:21 AM [facility] AST 43(H) 10 - 35 U/L 10/03/2024 6:21 AM T [facility] ALT 36(H) <=35 U/L 10/03/2024 6:21 AM T [facility] GFR >60 mL/min/1.7 3 sq meter 10/03/2024 6:21 AM T [facility] Comment:eGFR calculated with 2020 CKD-EPI equation. Vegetarian diet, extremely high or low muscle mass, and may affect results. Cystatin C with Glomerular Filtration Rate is a suitable alternative for these patients. ANION GAP 15 9 - 20 mmol/L 10/03/2024 6:21 AM T [facility] Blood Collection / Unknown 10/03/2024 3:20 AM CDT 10/03/2024 5:43 AM CDT Harry Reyes DO CHEMISTRY ORDERABLES Final R esult [facility] CLIA # [id number] [address] [place] [address] documented in this encounter Visit Diagnoses Not [...] documented as of this encounter Care Teams Cleaner Housekeeping Relationship Specialty Start Date End Date Non-Staff, Physician NO ADDRESS ON FILE PCP - General 08/30/13 documented as of this encounter
--- OUTSIDE RECORDS SUMMARY | 2025-01-04 21:14 | XMS_ITS | Encounter Summary ---
Author Organization [employer] Address 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 Gender Identity Not on file Sexual Orientation [...] CBC WITH DIFFERENTIAL (10/06/2024 4:15 AM CDT) [facility] WBC 9.8 4.8 - 10.8 K/uL 10/06/2024 6:27 AM CDT [facility] RBC 3.88(L) 4.20 - 5.40 M/uL 10/06/2024 6:27 AM CDT [facility] HEMOGLOBIN 10.6(L) 12.0 - 16.0 g/dL 10/06/2024 6:27 AM T [facility] HEMATOCRIT 34.9(L) 36.0 - 46.0 % 10/06/2024 6:27 AM CDT [facility] MCV 89.9 84.0 - 103.0 fL 10/06/2024 6:27 AM [facility] MCH 27.3 27.0 - 34.0 pg 10/06/2024 6:27 AM [facility] MCHC 30.4 30.0 - 35.0 g/dL 10/06/2024 6:27 AM T [facility] PLATELETS 426 140 - 440 K/uL 10/06/2024 6:27 AM [facility] MPV 10.2 8.9 - 12.8 fL 10/06/2024 6:27 AM [facility] RDW 16.8(H) 11.0 - 14.5 % 10/06/2024 6:27 AM [facility] RDW-STDEV 55.1(H) 37.0 - 54.0 fL 10/06/2024 6:27 AM [facility] NEUTROPHILS 57 42 - 75 % 10/06/2024 6:27 AM [facility] LYMPHOCYTES 27 24 - 44 % 10/06/2024 6:27 AM [facility] MONOCYTES 10 2 - 10 % 10/06/2024 6:27 AM [facility] EOSINOPHILS 5 0 - 7 % 10/06/2024 6:27 AM CDT [facility] BASOPHILS 1 0 - 1 % 10/06/2024 6:27 AM CDT [facility] IMMATURE GRANULOCYTES 1 0 - 2 % 10/06/2024 6:27 AM CDT [facility] NEUTROPHIL ABSOLUTE 5.55 2.00 - 8.00 K/uL 10/06/2024 6:27 AM CDT [facility] LYMPHOCYTE ABSOLUTE 2.61 1.20 - 4.00 K/uL 10/06/2024 6:27 AM CDT [facility] MONOCYTE ABSOLUTE 0.96(H) 0.10 - 0.60 K/uL 10/06/2024 6:27 AM CDT [facility] EOSINOPHIL ABSOLUTE 0.51 0.00 - 0.70 K/uL 10/06/2024 6:27 AM CDT [facility] BASOPHILS ABSOLUTE 0.06 0.00 - 0.20 K/uL 10/06/2024 6:27 AM CDT [facility] IMMATURE GRANULOCYTES ABSOLUTE 0.08 0.00 - 0.10 K/uL 10/06/2024 6:27 AM T [facility] SMEAR REVIEWED: NA - Not Applicable 10/06/2024 6:27 AM T [facility] Blood Collection / Unknown 10/06/2024 4:15 AM CDT 10/06/2024 6:10 AM CDT Hrary Reyes DO HEMATOLOGY ORDERABLES Final Result [facility] CLIA # [id number] [address] [place] [address] [place] [address] * (ABNORMAL) COMPREHENSIVE METABOLIC PANEL (10/06/2024 4:15 AM CDT) SODIUM 136 136 - 145 mmol/L 10/06/2024 7:01 AM T [facility] POTASSIUM 3.7 3.5 - 5.1 mmol/L 10/06/2024 7:01 AM [facility] CHLORIDE 99 98 - 107 mmol/L 10/06/2024 7:01 AM [facility] CO2 25 22 - 29 mmol/L 10/06/2024 7:01 AM [facility] CALCIUM 8.8 8.8 - 10.2 mg/dL 10/06/2024 7:01 AM [facility] BUN 11 8 - 23 mg/dL 10/06/2024 7:01 AM [facility] CREATININE 0.49(L) 0.51 - 0.95 mg/dL 10/06/2024 7:01 AM [facility] Comment:The GFR result is no t clinically significant on patients <18 or >70 years of age. GLUCOSE 142(H) 74 - 99 mg/dL 10/06/2024 7:01 AM [facility] TOTAL PROTEIN 6.6 6.4 - 8.3 g/dL 10/06/2024 7:01 AM [facility] ALBUMIN 2.7(L) 3.5 - 5.2 g/dL 10/06/2024 7:01 AM [facility] BILIRUBIN TOTAL 0.2 0.0 - 1.0 mg/dL 10/06/2024 7:01 AM [facility] ALKALINE PHOSPHATASE 80 35 - 104 U/L 10/06/2024 7:01 AM [facility] AST 31 10 - 35 U/L 10/06/2024 7:01 AM [facility] ALT 38(H) <=35 U/L 10/06/2024 7:01 AM [facility] GFR >60 mL/min/1. 73 sq meter 10/06/2024 7:01 AM [facility] Comment:eGFR calculated with 2020 CKD-EPI equation. Vegetarian diet, extremely high or low muscle mass, and may affect results. Cystatin C with Glomerular Filtration Rate is a suitable alternative for these patients. ANION GAP 12 9 - 20 mmol/L 10/06/2024 7:01 AM CDT [facility] Blood Collection / Unknown 10/06/2024 4:15 AM CDT 10/06/2024 6:09 AM CDT Harry Reyes DO CHEMISTRY ORDERABLES Final R esult [facility] CLIA # [id number] [address] [address] documented in this encounter Visit Diagnoses Not [...] documented as of this encounter Care Teams Skirt Maker Relationship Specialty Start Date End Date Non-Staff, Physician NO ADDRESS ON FILE PCP - General 08/30/13 documented as of this encounter
--- OUTSIDE RECORDS SUMMARY | 2025-01-04 21:14 | XMS_ITS | Encounter Summary ---
Author Organization [facility] Address [address] [place] [address] Care Team Providers Care Roll Handler Name Role Phone Non-Staff, Physician Primary Care Provider Unava ilable Reason for Referral * Outpatient Services (Routine) - Closed Specialty Diagnoses / Procedures Referred By Rubens brooks Referred To Contact Diagnoses Belchings Intractable hiccups Procedures CT CHEST ABDOMEN PELVIS W CONT Nancy Sanchez MD NO ADDRESS ON FILE Referral ID Status Reason Start Date Expiration Date Visits Re quested Visits Authorized [id number] Closed 07/20/2012 08/20/2013 1 1 Encounter Details Date Type Department Care Team (Latest Contact Info) Description 07/20/2012 Ancillary Orders [facility] Medical Surgical [address] [place] [address] Nancy Sanchez MD NO ADDRESS ON FILE Belchings (Primary Dx); Intractable hiccups Social History Tobacco Use Types Packs/Day Years Used Date Smoking Tobacco: Never Smokeless Tobacco: Never Alcohol Use Standard Drinks/Week Comments No 0 (1 standard drink = 0.6 oz pur e alcohol) Comments No Sex and Gender Information Value Date Recorded Sex Assigned at Not on file 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
--- OUTSIDE RECORDS SUMMARY | 2025-01-04 21:14 | XMS_ITS | Encounter Summary ---
Author Organization [facility] Address [address] [place] [address] Care Team Providers Care Retail Wireless Sales Consultant Name Role Phone Non-Staff, Physician Primary Care Provider Unava ilable Encounter Details Date Type Department Care Team (Latest Contact Info) Description 12/02/2005 Outpatient Historical [facility] [address] [place] [address] [place] [phone] Sesar Rayo MD NO ADDRESS ON FILE Pre-Operative Cardiovascular Examination (Primary Dx) Social History Tobacco Use Types Packs/Day Years Used Date Smoking Tobacco: Never Assessed Comments Unknown Sex and Gender Information Value Date Recorded Sex Assigned at Not on file Legal Sex Female 3:15 AM EGG GATHERER Gender Identity Not on file Sexual Orientation [...] URINE ORDERABLES Final Result Performing Organization Address [facility] Phone Number INTERFACE SYSTEM Refer to [...] URINE ORDERABLES Final Result Performing Organization Address [facility] Phone Number INTERFACE SYSTEM Refer to [...] ORDERABLES Final Re sult Performing Organization Address [facility] Phone Number INTERFACE SYSTEM Refer to [...] ORDERABLES Final Res ult Performing Organization Address [facility] Phone Number INTERFACE SYSTEM Refer to clinic/hospital department documented in this encounter Visit Diagnoses Diagnosis Pre-operative cardiovascular examination- Primary documented in this encounter Care Teams Retail Wireless Sales Consultant Relationship Specialty Start Date End Date Non-Staff, Physician NO ADDRESS ON FILE PCP - General 08/30/13 documented as of this encounter
--- OUTSIDE RECORDS SUMMARY | 2025-01-04 21:14 | XMS_ITS | Encounter Summary ---
Author Organization [facility] Address [address] [place] [address] Care Team Providers Care Respite Worker Name Role Phone Non-Staff, Physician Primary Care Provider Unava ilable Encounter Details Date Type Department Care Team (Latest Contact Info) Description 12/16/2002 Outpatient Historical [facility] Family Medicine- [place] [address] [place] [address] Wanda Castro MD NO ADDRESS ON FILE Plantar fibromatosis (Primary Dx); HYPERTENSION NOS Social History Tobacco Use Types Packs/Day Years Used Date Smoking Tobacco: Never Assessed Comments Unknown Sex and Gender Information Value Date Recorded Sex Assigned at Not on file 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
--- OUTSIDE RECORDS SUMMARY | 2025-01-04 21:14 | XMS_ITS | Encounter Summary ---
Author Organization [facility] Address [address] [place] [address] Care Team Providers Care Appliance Service Representative Name Role Phone Non-Staff, Physician Primary Care Provider Unava ilable Encounter Details Date Type Department Care Team (Latest Contact Info) Description 09/29/2003 Outpatient Historical [facility] Family Medicine- [place] [address] [place] [address] Wanda Castro MD NO ADDRESS ON FILE HYPERTENSION NOS (Primary Dx); BRIEF DEPRESSIVE REACT; Plantar fibromatosis Social History Tobacco Use Types Packs/Day Years Used Date Smoking Tobacco: Never Assessed Comments Unknown Sex and Gender Information Value Date Recorded Sex Assigned at Not on file Legal Sex Female 3:15 AM CERTIFIED ORTHOPTIST Gender Identity Not on file Sexual Orientation Not on file documented as of this encounter Plan of Treatment Not on file documented as of this encounter Visit Diagnoses Diagnosis Unspecified essential hypertension- Primary Adjustment disorder with depressed mood Plantar fibromatosis Plantar fascial fibromatosis documented in this encounter Care Teams Appliance Service Representative Relationship Specialty Start Date End Date Non-Staff, Physician NO ADDRESS ON FILE PCP - General 08/30/13 documented as of this encounter
--- OUTSIDE RECORDS SUMMARY | 2025-01-04 21:14 | XMS_ITS | Encounter Summary ---
Author Organization [employer] Address 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 Gender Identity Not on file Sexual [...] to Dark Yellow 10/18/2024 4:51 AM CDT [facility] CLARITY UA Clear Clear 10/18/2024 4:51 AM CDT [facility] SPECIFIC GRAVITY UA 1.005 1.003 - 1.035 10/18/2024 4:51 AM CDT [facility] PH UA 5.0 5.0 - 8.0 10/18/2024 4:51 AM CDT [facility] LEUKOCYTE ESTERASE UA Negative Negative 10/18/2024 4:51 AM CDT [facility] NITRITE UA Negative Negative 10/18/2024 4:51 AM CDT [facility] PROTEIN UA Negative Negative 10/18/2024 4:51 AM CDT [facility] GLUCOSE UA Negative Negative 10/18/2024 4:51 AM CDT [facility] KETONES UA Negative Negative 10/18/2024 4:51 AM CDT [facility] UROBILINOGEN UA <2.0 <2.0 mg/dL 4:51 AM CDT [facility] BILIRUBIN UA Negative Negative 10/18/2024 4:51 AM CDT [facility] BLOOD UA Negative Negative 10/18/2024 4:51 AM T [facility] Urine URINE SPECIMEN OBTAINED BY CLEAN CATCH PROCEDURE / Unknown Collection / Unknown 10/18/2024 2:30 AM CDT 10/18/2024 4:46 AM CDT us Kiarra Charles MD URINE ORDERABLES Final Res ult [facility] CLIA # [id number] [address] [address] documented in this encounter Visit Diagnoses Not [...] documented as of this encounter Care Teams Cell Repairer Relationship Specialty Start Date End Date Non-Staff, Physician NO ADDRESS ON FILE PCP - General 08/30/13 documented as of this encounter
--- OUTSIDE RECORDS SUMMARY | 2025-01-04 21:14 | XMS_ITS | Encounter Summary ---
Author Organization [facility] Address [address] [place] [address] Care Team Providers Care Employee Relations Administrator Name Role Phone Non-Staff, Physician Primary Care Provider Unava ilable Encounter Details Date Type Department Care Team (Latest Contact Info) Description 11/25/2005 Outpatient Historical [facility] [address] 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
--- OUTSIDE RECORDS SUMMARY | 2025-01-04 21:14 | XMS_ITS | Encounter Summary ---
Author Organization [employer] Address 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 Gender Identity Not on file Sexual [...] Results * PHOSPHORUS (09/22/2024 4:15 AM CDT) PHOSPHORUS 2.8 2.5 - 4.5 mg/dL 09/22/2024 8:43 AM CDT [facility] Blood Collection / Unknown 09/22/2024 4:15 AM CDT 09/22/2024 5:17 AM CDT Harry Reyes DO CHEMISTRY ORDERABLES Final R esult Performing Organization Address City/[facility]/ZIP Co de Phone Number [facility] CLIA # [id number] [address] [address] * MAGNESIUM LEVEL (09/22/2024 4:15 AM CDT) Pathologist [facility] MAGNESIUM 1.6 1.6 - 2.4 mg/dL 09/22/2024 8:43 AM CDT [facility] Blood Collection / Unknown 09/22/2024 4:15 AM CDT 09/22/2024 5:17 AM CDT Harry Reyes DO CHEMISTRY ORDERABLES Final R esult Performing Organization Address City/[facility]/ZIP Co de Phone Number [facility] CLIA # [id number] [address] [address] * (ABNORMAL) CBC WITH DIFFERENTIAL (09/22/2024 4:15 AM CDT) [facility] WBC 9.0 4.8 - 10.8 K/uL 09/22/2024 5:27 AM [facility] RBC 3.25(L) 4.20 - 5.40 M/uL 09/22/2024 5:27 AM [facility] HEMOGLOBIN 8.9(L) 12.0 - 16.0 g/dL 09/22/2024 5:27 AM [facility] HEMATOCRIT 29.0(L) 36.0 - 46.0 % 09/22/2024 5:27 AM [facility] MCV 89.2 84.0 - 103.0 fL 09/22/2024 5:27 AM [facility] MCH 27.4 27.0 - 34.0 pg 09/22/2024 5:27 AM [facility] MCHC 30.7 30.0 - 35.0 g/dL 09/22/2024 5:27 AM [facility] PLATELETS 561(H) 140 - 440 K/uL 09/22/2024 5:27 AM [facility] MPV 10.3 8.9 - 12.8 fL 09/22/2024 5:27 AM [facility] RDW 20.2(H) 11.0 - 14.5 % 09/22/2024 5:27 AM [facility] RDW-STDEV 63.7(H) 37.0 - 54.0 fL 09/22/2024 5:27 AM [facility] NEUTROPHILS 62 42 - 75 % 09/22/2024 5:27 AM [facility] LYMPHOCYTES 21(L) 24 - 44 % 09/22/2024 5:27 AM [facility] MONOCYTES 10 2 - 10 % 09/22/2024 5:27 AM [facility] EOSINOPHILS 4 0 - 7 % 09/22/2024 5:27 AM [facility] BASOPHILS 1 0 - 1 % 09/22/2024 5:27 AM CDT [facility] IMMATURE GRANULOCYTES 2 0 - 2 % 09/22/2024 5:27 AM CDT [facility] NEUTROPHIL ABSOLUTE 5.59 2.00 - 8.00 K/uL 09/22/2024 5:27 AM CDT [facility] LYMPHOCYTE ABSOLUTE 1.88 1.20 - 4.00 K/uL 09/22/2024 5:27 AM CDT [facility] MONOCYTE ABSOLUTE 0.91(H) 0.10 - 0.60 K/uL 09/22/2024 5:27 AM CDT [facility] EOSINOPHIL ABSOLUTE 0.38 0.00 - 0.70 K/uL 09/22/2024 5:27 AM CDT [facility] BASOPHILS ABSOLUTE 0.06 0.00 - 0.20 K/uL 09/22/2024 5:27 AM CDT [facility] IMMATURE GRANULOCYTES ABSOLUTE 0.13(H) 0.00 - 0.10 K/uL 09/22/2024 5:27 AM T [facility] SMEAR REVIEWED: NN - No Action Needed 09/22/2024 5:27 AM T [facility] Blood Collection / Unknown 09/22/2024 4:15 AM CDT 09/22/2024 5:17 AM CDT Harry Reyes DO HEMATOLOGY ORDERABLES Final Result [facility] CLIA # [id number] [address] [place] [address] * (ABNORMAL) TROPONIN (09/22/2024 4:15 AM CDT) TROPONIN T, 5TH GEN 28(H) <=10 ng/L 09/22/2024 5:50 AM CDT [facility] Blood Collection / Unknown 09/22/2024 4:15 AM CDT 09/22/2024 5:17 AM CDT Narrative [facility] - 09/22/2024 5:50 AM CDT Troponin elevated. us Harry Reyes DO CHEMISTRY ORDERABLES Final R esult [facility] DAVID # [id number] [facility] [address] [place] [address] * (ABNORMAL) COMPREHENSIVE METABOLIC PANEL (09/22/2024 4:15 AM CDT) Pathologist [facility] SODIUM 139 136 - 145 mmol/L 09/22/2024 5:54 AM CDT [facility] POTASSIUM 3.4(L) 3.5 - 5.1 mmol/L 09/22/2024 5:54 AM T [facility] CHLORIDE 101 98 - 107 mmol/L 09/22/2024 5:54 AM T [facility] CO2 25 22 - 29 mmol/L 09/22/2024 5:54 AM T [facility] CALCIUM 8.2(L) 8.8 - 10.2 mg/dL 09/22/2024 5:54 AM T [facility] BUN 11 8 - 23 mg/dL 09/22/2024 5:54 AM T [facility] CREATININE 0.52 0.51 - 0.95 mg/dL 09/22/2024 5:54 AM T [facility] Comment:The GFR result is no t clinically significant on patients <18 or >70 years of age. GLUCOSE 181(H) 74 - 99 mg/dL 09/22/2024 5:54 AM CDT [facility] TOTAL PROTEIN 5.9(L) 6.4 - 8.3 g/dL 09/22/2024 5:54 AM T [facility] ALBUMIN 2.7(L) 3.5 - 5.2 g/dL 09/22/2024 5:54 AM CDT [facility] BILIRUBIN TOTAL 0.2 0.0 - 1.0 mg/dL 09/22/2024 5:54 AM CDT [facility] ALKALINE PHOSPHATASE 78 35 - 104 U/L 09/22/2024 5:54 AM CDT [facility] AST 39(H) 10 - 35 U/L 09/22/2024 5:54 AM CDT [facility] ALT 37(H) <=35 U/L 09/22/2024 5:54 AM CDT [facility] GFR >60 mL/min/1.7 3 sq meter 09/22/2024 5:54 AM CDT [facility] Comment:eGFR calculated with 2020 CKD-EPI equation. Vegetarian diet, extremely high or low muscle mass, and may affect results. Cystatin C with Glomerular Filtration Rate is a suitable alternative for these patients. ANION GAP 13 9 - 20 mmol/L 09/22/2024 5:54 AM CDT [facility] Blood Collection / Unknown 09/22/2024 4:15 AM CDT 09/22/2024 5:17 AM CDT us Harry Reyes DO CHEMISTRY ORDERABLES Final R esult [facility] CLIA # [id number] [address] [place] [address] documented in this encounter Visit Diagnoses Not [...] documented as of this encounter Care Teams Swimming Pool Service Technician Relationship Specialty Start Date End Date Non-Staff, Physician NO ADDRESS ON FILE PCP - General 08/30/13 documented as of this encounter
--- OUTSIDE RECORDS SUMMARY | 2025-01-04 21:14 | XMS_ITS | Encounter Summary ---
Author Organization [facility] Address [address] [place] [address] Care Team Providers Care Hairspring Inspector Name Role Phone Non-Staff, Physician Primary Care Provider Unava ilable Encounter Details Date Type Department Care Team (Latest Contact Info) Description 09/07/2003 Outpatient Historical [facility] General Surgery [address] [address] [address] [place] [id number] [place] [address] [facility] [address] [place] [address] SURGERY FOLLOWUP, UNSPEC (Primary Dx); CHOLELITH W ACUTE GB DIS-NO OBSTR; Umbilical hernia Social History Tobacco Use Types Packs/Day Years Used Date Smoking Tobacco: Never Assessed Comments Unknown Sex and Gender Information Value Date Recorded Sex Assigned at Not on file 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
--- OUTSIDE RECORDS SUMMARY | 2025-01-04 21:14 | XMS_ITS | Encounter Summary ---
Author Organization [employer] Address 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 Result may be falsely elevated. CHLORIDE 116(H) 98 - 107 mmol/L 10/21/2024 4:52 PM CDT [facility] CO2 16(L) 22 - 29 mmol/L 10/21/2024 4:52 PM CDT [facility] CALCIUM 7.1(L) 8.8 - 10.2 mg/dL 10/21/2024 4:52 PM T [facility] BUN 1(L) 8 - 23 mg/dL 10/21/2024 4:52 PM T [facility] CREATININE 0.44(L) 0.51 - 0.95 mg/dL 10/21/2024 4:52 PM T [facility] Comment:The GFR result is no t clinically significant on patients <18 or >70 years of age. GLUCOSE 100(H) 74 - 99 mg/dL 10/21/2024 4:52 PM T [facility] GFR >60 mL/min/1. 73 sq meter 10/21/2024 4:52 PM T [facility] Comment:eGFR calculated with 2020 CKD-EPI equation. Vegetarian diet, extremely high or low muscle mass, and may affect results. Cystatin C with Glomerular Filtration Rate is a suitable alternative for these patients. ANION GAP 8(L) 9 - 20 mmol/L 10/21/2024 4:52 PM T [facility] Blood Collection / Unknown 10/21/2024 2:15 PM CDT 10/21/2024 4:19 PM CDT us External Provider [facility] CHEMISTRY ORDERABLES Final Result [facility] CLIA # [id number] [address] [address] [place] [address] documented in this encounter Visit Diagnoses Not [...] documented as of this encounter Care Teams Career Technology Teacher Relationship Specialty Start Date End Date Non-Staff, Physician NO ADDRESS ON FILE PCP - General 08/30/13 documented as of this encounter
--- OUTSIDE RECORDS SUMMARY | 2025-01-04 21:14 | XMS_ITS | Encounter Summary ---
Author Organization [facility] Address [address] [place] [address] Care Team Providers Care Staff Nuclear Medicine Technologist Name Role Phone Non-Staff, Physician Primary Care Provider Unava ilable Encounter Details Date Type Department Care Team (Latest Contact Info) Description 11/17/2005 Outpatient Historical [facility] Family Medicine- [place] [address] [place] [address] Wanda Castro MD NO ADDRESS ON FILE Pain in Joint, Lower Leg (Primary Dx); Asymptomatic Varicose Veins; Unspecified Essential Hypertension Social History Tobacco Use Types Packs/Day Years Used Date Smoking Tobacco: Never Assessed Comments Unknown Sex and Gender Information Value Date Recorded Sex Assigned at Not on file 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
--- OUTSIDE RECORDS SUMMARY | 2025-01-04 21:14 | XMS_ITS | Encounter Summary ---
Author Organization [facility] Address [address] [place] [address] Care Team Providers Care Coding Compliance Specialist Name Role Phone Non-Staff, Physician Primary Care Provider Unava ilable Encounter Details Date Type Department Care Team (Latest Contact Info) Description 09/30/2002 Outpatient Historical [facility] Family Medicine- [place] [address] [place] [address] Wanda Castro MD NO ADDRESS ON FILE MIGRAINE NOS W/O MENTN INTRACTABLE (Primary Dx) Social History Tobacco Use Types Packs/Day Years Used Date Smoking Tobacco: Never Assessed Comments Unknown Sex and Gender Information Value Date Recorded Sex Assigned at Not on file 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
--- OUTSIDE RECORDS SUMMARY | 2025-01-04 21:14 | XMS_ITS | Encounter Summary ---
Author Organization [facility] Address [address] [place] [address] Care Team Providers Care Cemetery Manager Name Role Phone Non-Staff, Physician Primary Care Provider Unava ilable Encounter Details Date Type Department Care Team (Latest Contact Info) Description 02/17/2003 Outpatient Historical [facility] Family Medicine- [place] [address] [place] [address] Wanda Castro MD NO ADDRESS ON FILE Plantar fibromatosis (Primary Dx) Social History Tobacco Use Types Packs/Day Years Used Date Smoking Tobacco: Never Assessed Comments Unknown Sex and Gender Information Value Date Recorded Sex Assigned at Not on file 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
--- OUTSIDE RECORDS SUMMARY | 2025-01-04 21:14 | XMS_ITS ---
Author Organization [facility] Care Team Providers [employer] Name Role Phone Brady Ahuja Unavailable Unavailable Olga Antony Unavailable Unavailable Allergies and adverse reactions Code CodeSystem Substance Reaction Severity StartDate Concern Status 7052 RXNORM Morphine Urticaria (code - 264809236, SNOMED CT) Moderate 12/07/2024 active Care Team Name Role Address Phone Organization Dates Brady Ahuja PCP [address] [place], [address], [place] (Office): [facility] 12/08/2024 - present Olga Antony [address] [place], [address], [place] (Office): : [facility] 12/08/2024 - present Goals Section Goals Description Status Target Date All goals will be reviewed a nd updated as needed with completion of the assessment process of the BALTA[place] unless otherwise stated in the individualized goal Active 12/26/2024 Dianelys will increase level of mobility in all ADL's and regain the ability to return home with son by review date. Active 2024 Enhanced Barrier Precautions will be utilized pe r protocol daily Active 12/26/2024 Resident will not have adver se effects r/t usage of medications with Black Box Warnings. Active 12/26/2024 The resident will be free fr om discomfort or adverse reactions related to anticoagulant use through the review date. Active 12/26/2024 The resident will have docum ented healing of surgical site with no signs of infection through review date. Active 12/26/2024 The resident will not sustai n serious injury through the review date. Active 12/26/2024 The resident will verbalize adequate relief of pain or ability to cope with incompletely relieved pain through the review date. Active 12/26/2024 Functional Status Code Name Recorded Time Value Entered By Ambulation 01/04/2025 Extensive Assistance samwade Ambulation 01/04/2025 Extensive Assistance samwade Ambulation 01/04/2025 Extensive Assistance samwade Ambulation 01/04/2025 Extensive Assistance samwade Dressing 01/04/2025 Extensive Assistance samwade Feeding or Eating 01/04/2025 Not assessed samwade Toileting 01/04/2025 Extensive Assistance samwade Transferring 01/04/2025 Extensive Assistance samwade Immunizations Immunization Status Vaccine Details Vaccine Code CodeSystem Date Notes TB 2 Step Mantoux Skin Test completed tuberculin skin test; unspecified formulation lotNumber: [id number] expiry: 02/03/2026 Mfg: [employer] Given 0.01 Right Forearm intradermally Step 1 of Multi-step with next step required 98 CVX created date: 12/09/2024 consent date: 12/08/2024 administer ed date: 12/09/2024 TB 2 Step Mantoux Skin Test new tuberculin skin test; unspecified formulation 98 CVX created date: 12/10/2024 consent date: 12/08/2024 negative SARS-COV-2 (COVID-19) completed Step 2 of Multi-step created date: 12/09/2024 SARS-COV-2 (COVID-19) completed Given intramuscularly Step 1 of Multi-step with next step required created date: 12/09/2024 administer ed date: 07/27/2020 Influenza, seasonal, injectable completed Influenza, split virus, trivalent, injectable, contains preservative Given intramuscularly 141 CVX created date: 12/09/2024 administer ed date: 02/02/2012 Medications Section Medication Name Status Code CodeSystem Dose Route Frequency Admin Type Sig Text Start Date End Date Ipratropium-A lbuterol Solution 0.5-2.5 (3) MG/3ML active 865908 2 RXNORM 1 vial Inhalat ion as needed PRN 1 vial inhale orally every 6 hours as needed for SOB shortn ess of breath 2024 - Dicyclomine HCl Capsule 10 MG active 449222 RXNORM 1 capsul e Oral as needed PRN Give 1 capsul e by mouth every 6 hours as needed for abdomi nal pain relate d to DIVERT ICULOS IS OF LARGE INTEST INE WITHOU T PERFOR ATION OR ABSCES S WITHOU T BLEEDI NG (K57.3 0);GAS TRO-ES OPHAGE AL REFLUX DISEAS E WITH ESOPHA GITIS, WITHOU T BLEEDI NG (K21.0 0) 2024 - GlycoLax Powder active 836392 RXNORM 17 gram Oral as needed PRN Give 17 gram by mouth every 24 hours as needed for Consti pation 2024 - Tussin Cough Oral Syrup 15 MG/5ML active 15 ml Oral as needed PRN Give 15 ml by mouth every 6 hours as needed for cough conges tion 2024 - Atenolol Oral Tablet 25 MG aborted 596339 RXNORM 12.5 mg Oral one time a day Routine Give 12.5 mg by mouth one time a day relate d to ESSENT IAL (PRIMA RY) HYPERT ENSION (I10) 12/14 HYDROcodone-A cetaminophen Oral Tablet 5-325 MG aborted 783464 RXNORM 1 tablet Oral as needed PRN Give 1 tablet by mouth every 60 hours as needed for Pain - Modera te relate d to DIVERT ICULOS IS OF LARGE INTEST INE WITHOU T PERFOR ATION OR ABSCES S WITHOU T BLEEDI NG (K57.3 0) 12/09 Scopolamine Transdermal Patch 72 Hour 1 MG/3DAYS active 692537 RXNORM 1 applic ator Transde rmal one time a day Routine Apply 1 applic ator transd ermall y one time a day every 3 day(s) relate d to GASTRO -ESOPH AGEAL REFLUX DISEAS E WITH ESOPHA GITIS, WITHOU T BLEEDI NG (K21.0 0) 2024 - Fleet Enema Enema 7-19 GM/118ML active 111281 RXNORM 1 applic ation Rectal as needed PRN Insert 1 applic ation rectal ly every 24 hours as needed for consti pation 2024 - Bisacodyl Suppository 10 MG active 485095 RXNORM 1 suppos itory Rectal as needed PRN Insert 1 suppos itory rectal ly every 24 hours as needed for Consti pation 2024 - Miconazole Nitrate Cream 2 % aborted 889964 RXNORM n/a n/a Topical two times a day Routine Apply to affect ed area topica lly two times a day for affect ed area 12/08 Acetaminophen Tablet 325 MG active 713070 RXNORM 2 tablet Oral as needed PRN Give 2 tablet by mouth every 6 hours as needed for genera l discom fort relate d to DIVERT ICULOS IS OF LARGE INTEST INE WITHOU T PERFOR ATION OR ABSCES S WITHOU T BLEEDI NG (K57.3 0) 2024 - Citrate of Magnesia Oral Solution active 296 ml Oral as needed PRN Give 296 ml by mouth every 24 hours as needed for Consti pation 2024 - Docusate Sodium Capsule 100 MG active 707399 5 RXNORM 100 mg Oral as needed PRN Give 100 mg by mouth every 12 hours as needed for Consti pation relate d to DIVERT ICULOS IS OF LARGE INTEST INE WITHOU T PERFOR ATION OR ABSCES S WITHOU T BLEEDI NG (K57.3 0) 2024 - Reglan Oral Tablet 10 MG aborted 363133 RXNORM 1 tablet Oral before meals and at bedtime Routine Give 1 tablet by mouth before meals and at bedtim e relate d to DIVERT ICULOS IS OF LARGE INTEST INE WITHOU T PERFOR ATION OR ABSCES S WITHOU T BLEEDI NG (K57.3 0);GAS TRO-ES OPHAGE AL REFLUX DISEAS E WITH ESOPHA GITIS, WITHOU T BLEEDI NG (K21.0 0) 12/08 Artificial Tear Ointment Ointment aborted 0.25 inch Ophthal sofya two times a day Routine Instil l 0.25 inch in both eyes two times a day relate d to ESSENT IAL (PRIMA RY) HYPERT ENSION (I10) 12/08 MiraLax Oral Powder 17 GM/SCOOP active 035204 RXNORM 1 scoop Oral one time a day Routine Give 1 scoop by mouth one time a day for Consti pation relate d to DIVERT ICULOS IS OF LARGE INTEST INE WITHOU T PERFOR ATION OR ABSCES S WITHOU T BLEEDI NG (K57.3 0) 2024 - Eliquis Oral Tablet 5 MG aborted 692483 7 RXNORM 1 tablet Oral two times a day Routine Give 1 tablet by mouth two times a day relate d to ESSENT IAL (PRIMA RY) HYPERT ENSION (I10) 12/08 Ondansetron Oral Tablet Disintegratin g aborted 1 tablet Oral as needed PRN Give 1 tablet by mouth every 8 hours as needed for nausea , vomiti ng dissol ve 1 tab under tongue no oral intake for 30 minute s 12/07 Tuberculin PPD Solution 5 UNIT/0.1ML aborted 345339 RXNORM 0.1 ml Intrade rmal every framer Routine Inject 0.1 ml intrad ermall y every framer for TB (Tuber culosi s) Screen ing for 1 Admini strati ons add to immunz ations AND Inject 0.1 ml intrad ermall y every framer every 14 day(s) for TB (Tuber culosi s) Screen ing for 1 Admini strati ons add immuni zation s 12/10 064720 RXNORM 0.1 ml Intrade rmal every framer Routine Inject 0.1 ml intrad ermall y every framer for TB (Tuber culosi s) Screen ing for 1 Admini strati ons add to immunz ations AND Inject 0.1 ml intrad ermall y every framer every 14 day(s) for TB (Tuber culosi s) Screen ing for 1 Admini strati ons add immuni zation s 12/10 Milk of Magnesia Suspension 400 MG/5ML active 505290 RXNORM 30 ml Oral as needed PRN Give 30 ml by mouth every 24 hours as needed for consti pation 2024 - Ondansetron Oral Tablet Disintegratin g active 4 mg Oral as needed PRN Give 4 mg by mouth every 8 hours as needed for nausea , vomiti ng dissol ve 1 tab under tongue no oral intake for 30 minute s 2024 - Reglan Oral Tablet 10 MG active 448166 RXNORM 1 tablet Oral before meals and at bedtime Routine Give 1 tablet by mouth before meals and at bedtim e relate d to DIVERT ICULOS IS OF LARGE INTEST INE WITHOU T PERFOR ATION OR ABSCES S WITHOU T BLEEDI NG (K57.3 0);GAS TRO-ES OPHAGE AL REFLUX DISEAS E WITH ESOPHA GITIS, WITHOU T BLEEDI NG (K21.0 0) 2024 - Artificial Tear Ointment Ointment active 0.25 inch Ophthal sofya two times a day Routine Instil l 0.25 inch in both eyes two times a day relate d to ESSENT IAL (PRIMA RY) HYPERT ENSION (I10) 2024 - Miconazole Nitrate Cream 2 % aborted 344000 RXNORM n/a n/a Topical two times a day Routine Apply to affect ed area topica lly two times a day for affect ed area 12/12 Eliquis Oral Tablet 5 MG aborted 550570 7 RXNORM 1 tablet Oral two times a day Routine Give 1 tablet by mouth two times a day relate d to ESSENT IAL (PRIMA RY) HYPERT ENSION (I10) 01/04 HYDROcodone-A cetaminophen Oral Tablet 5-325 MG active 948940 RXNORM 1 tablet Oral as needed PRN Give 1 tablet by mouth every 6 hours as needed for Pain - Modera te relate d to DIVERT ICULOS IS OF LARGE INTEST INE WITHOU T PERFOR ATION OR ABSCES S WITHOU T BLEEDI NG (K57.3 0) 2024 - Tuberculin PPD Solution 5 UNIT/0.1ML active 733276 RXNORM 0.1 ml Intrade rmal every framer Routine Inject 0.1 ml intrad ermall y every framer every 14 day(s) for TB (Tuber culosi s) Screen ing for 1 Admini strati ons add immuni zation s 01/05 Omeprazole Oral Tablet Delayed Release 20 MG active 114232 RXNORM 20 mg Oral one time a day Routine Give 20 mg by mouth one time a day relate d to GASTRO -ESOPH AGEAL REFLUX DISEAS E WITH ESOPHA GITIS, WITHOU T BLEEDI NG (K21.0 0) 2024 - levoFLOXacin Oral Tablet 500 MG complete d 19971206 RXNORM 500 mg Oral one time a day Routine Give 500 mg by mouth one time a day relate d to OTHER ABNORM AL FINDIN GS IN URINE (R82.9 98) for 7 Days 01/01 levoFLOXacin Oral Tablet 500 MG active 19971206 RXNORM 1 tablet Oral in the morning Routine Give 1 tablet by mouth in the mornin g relate d to OTHER ABNORM AL FINDIN GS IN URINE (R82.9 98) for 3 Days 01/06 Normal Saline Flush Intravenous Solution active 125 ml/hr Intrave nous every day and evening shift Routine Use 125 ml/hr intrav enousl y every day and evenin g shift for dehydr ation for 1 Day discon tinue when 1 liter is comple macario. 01/05 Mental Status Section Date Assessment Total Score Description 12/13/2024 BIMS 15 cognitively int act CAM 0 No delirium ind icated PHQ-9 00 Plan of Treatment Section Test Code Code System Name Date Urine Microscopy 01/04/2025 URINARY TRACT MICROBIOTA ASS AY 01/04/2025 Urine Microscopy 01/04/2025 URINARY TRACT MICROBIOTA ASS AY 01/04/2025 01/04/2025 URINARY TRACT MICROBIOTA ASS AY 01/04/2025 01/04/2025 01/04/2025 Urine Microscopy 01/04/2025 01/04/2025 Urine Microscopy 01/04/2025 12/21/2024 12/21/2024 12/21/2024 12/21/2024 Problems Problem # Description Date of onset Resolved Date Code CodeSystem Concern Status 1 OTHER ABNORMAL FINDINGS IN URINE 12/25/[address] active 2 DIVERTICULOSIS OF LARGE INTESTINE WITHOUT PERFORATION OR ABSCESS WITHOUT BLEEDING 12/07/[address] active 3 ENTEROCOLITIS DUE TO CLOSTRIDIUM DIFFICILE, NOT SPECIFIED RECURRENT 12/07/[address] active 4 ESSENTIAL (PRIMARY) HYPERTENSION 12/07/[address] active 5 GASTRO-ESOPHAGEAL REFLUX DISEASE WITH ESOPHAGITIS, WITHOUT BLEEDING 12/07/[address] active 6 MIXED HYPERLIPIDEMIA 12/07/[address] active 7 SEPSIS, UNSPECIFIED ORGANISM 11/23/[address] active 8 MODERATE PROTEIN-CALORIE MALNUTRITION 10/27/[address] active Reason for Referral No Reasons for Referral Entered Diagnostic Results Result Code Code System Date Test Result Interpretation Reference Range Status Notes WE9310- 6 LOINC 01/05 BMP / Complete Blood Count / 3 - Urine Cultures / Hope Count / STAT / Urinalysis / Urine Microscopy / UTI Place Bazan / URINARY TRACT MICROBIOTA ASSAY / URINARY TRACT MICROBIOTA SUSCEPTIBI LITY / Cogent- / 4 - Urine Cultures / Hope Count Resulted Result for: Dianelys Reagan ( 1950 , F) 1977-8 [facility] 01/04 BILIRUBIN (UA) Value: Negative Units: Normal <0.5 mg/dL Final 25702-8 [facility] 01/04 KETONES (UA) Value: 5 Units: Normal <10 mg/dL Final 2888-6 [facility] 01/04 PROTEIN (UA) Value: 15 Units: Normal <=30 mg/dL Final 123-999 99-9 [facility] 01/04 BLOOD (UA) Value: Negative Units: Normal <0.06 mg/dL Final 2756-5 [facility] 01/04 pH (UA) Value: 6.0 Units: Normal 5.0-8.0 Final 3107-0 [facility] 01/04 UROBILINOG EN (UA) Value: 0.2 Units: Normal <2 mg/dL Final 2965-2 [facility] 01/04 SPECIFIC GRAVITY (UA) Value: 1.030 Units: Normal 1.005-1.01 5 Final 89814-8 [facility] 01/04 LEUKOCYTE ESTERASE (UA) Value: 15 L Units: Normal <75 Grecia/uL Final 46326-2 [facility] 01/04 NITRITE (UA) Value: Negative Units: Normal <+1 Final 798-9 [facility] 01/04 RBC (UA) Value: . Units: Normal <6-10 HPF Pending 86984-6 [facility] 01/04 SQUAMOUS EPITHELIAL CELLS (UA) Value: . Units: Normal <11-20 Pending 62886-3 [facility] 01/04 BACTERIA (UA) Value: . Units: Normal < FEW Pending 5822-2 [facility] 01/04 YEAST (UA) Value: . Units: Normal None Pending 8247-9 [facility] 01/04 MUCOUS (UA) Value: . Units: Normal - Pending 123-999 99-9 [facility] 01/04 CASTS (UA) - RBC Cast Value: . Units: Normal - Pending 123-999 99-9 [facility] 01/04 CASTS (UA) - Broad Hyaline Value: . Units: Normal - Pending 123-999 99-9 [facility] 01/04 CRYSTALS (UA) - X-ray Dye Crystals Value: . Units: Normal - Pending 123-999 99-9 [facility] 01/04 CRYSTALS (UA) - UnClassifi ed Value: . Units: Normal - Pending 123-999 99-9 [facility] 01/04 CASTS (UA) - Granular Value: . Units: Normal - Pending 123-999 99-9 [facility] 01/04 CASTS (UA) - Hyaline Value: . Units: Normal - Pending 123-999 99-9 [facility] 01/04 CASTS (UA) - Waxy Value: . Units: Normal - Pending 123-999 99-9 LOINC 01/04 CASTS (UA) - Cellular Cast Value: . Units: Normal - Pending 123-999 99-9 [facility] 01/04 CRYSTALS (UA) - Cystine Value: . Units: Normal - Pending 123-999 99-9 [facility] 01/04 CRYSTALS (UA) - Leucine Value: . Units: Normal - Pending 123-999 99-9 INC 01/04 CRYSTALS (UA) - Tyrosine Value: . Units: Normal - Pending 123-999 99-9 LOINC 01/045 CRYSTALS (UA) - Triple Phosphate Value: . Units: Normal - Pending 123-999 99-9 LOINC 01/04 CRYSTALS (UA) - Uric Acid Value: . Units: Normal - Pending 123-999 99-9 LOINC 01/045 CRYSTALS (UA) - Calcium Phosphate Value: . Units: Normal - Pending 8248-7 LOINC 01/04 SPERM (UA) Value: . Units: Normal - Pending 123-999 99-9 LOINC 01/04 TRICHOMONA S (UA) Value: . Units: Normal None Pending 123-999 99-9 LOINC 01/04 Transition al Epi Cell Value: . Units: Normal <3-5 Pending 123-999 99-9 LOINC 01/04 CRYSTALS (UA) - Amorphous Phosphate Value: . Units: Normal - Pending 123-999 99-9 LOINC 01/04 CRYSTALS (UA) - Amorphous Urate Value: . Units: Normal - Pending 123-999 99-9 LOINC 01/045 CRYSTALS (UA) - Calcium Oxalate Value: . Units: Normal - Pending 123-999 99-9 LOINC 01/04 Escherichi a coli Value: . Units: Normal Not Detected Pending 123-999 99-9 LOINC 01/04 Enterobact er cloacae Value: . Units: Normal Not Detected Pending 123-999 99-9 LOINC 01/04 Providenci a stuartii Value: . Units: Normal Not Detected Pending 123-999 99-9 LOINC 01/04 Staphyloco ccus saprophyti cus Value: . Units: Normal Not Detected Pending 123-999 99-9 LOINC 01/04 Klebsiella pneumonia Value: . Units: Normal Not Detected Pending 123-999 99-9 LOINC 01/04 Klebsiella oxytoca Value: . Units: Normal Not Detected Pending 123-999 99-9 LOINC 01/04 Marce glabrata Value: . Units: Normal Not Detected Pending 123-999 99-9 LOINC 01/04 Streptococ cus agalactiae Value: . Units: Normal Not Detected Pending 123-999 99-9 [facility] 01/[address] baumannii Value: . Units: Normal Not Detected Pending 123-999 99-9 [facility] 01/04 Pseudomona s aeruginosa Value: . Units: Normal Not Detected Pending 123-999 99-9 [facility] 01/04 Marce SPP (ADTP) Value: . Units: Normal Not Detected Pending 123-999 99-9 [facility] 01/04 Serratia marcescens Value: . Units: Normal Not Detected Pending 123-999 99-9 [facility] 01/04 Marce krusei Value: . Units: Normal Not Detected Pending 123-999 99-9 [facility] 01/04 Morganella morganii Value: . Units: Normal Not Detected Pending 123-999 99-9 [facility] 01/04 Klebsiella aerogenes Value: . Units: Normal Not Detected Pending 123-999 99-9 [facility] 01/04 Enterococc us Spp. Value: . Units: Normal Not Detected Pending 123-999 99-9 [facility] 01/04 Citrobacte r Spp. Value: . Units: Normal Not Detected Pending 123-999 99-9 [facility] 01/04 Proteus Spp Value: . Units: Normal Not Detected Pending 123-999 99-9 [facility] 01/04 Marce albicans Value: . Units: Normal Not Detected Pending 123-999 99-9 [facility] 01/04 BMP Value: . Units: Normal - Final 798-9 [facility] 01/04 RBC (UA) Value: . Units: Normal <6-10 HPF Pending 26281-2 [facility] 01/04 SQUAMOUS EPITHELIAL CELLS (UA) Value: . Units: Normal <11-20 Pending 15761-2 [facility] 01/04 BACTERIA (UA) Value: . Units: Normal < FEW Pending 5822-2 [facility] 01/04 YEAST (UA) Value: . Units: Normal None Pending 8247-9 [facility] 01/04 MUCOUS (UA) Value: . Units: Normal - Pending 123-999 99-9 [facility] 01/04 CASTS (UA) - RBC Cast Value: . Units: Normal - Pending 123-999 99-9 LOINC 01/045 CASTS (UA) - Broad Hyaline Value: . Units: Normal - Pending 123-999 99-9 LOINC 01/045 CRYSTALS (UA) - X-ray Dye Crystals Value: . Units: Normal - Pending 123-999 99-9 LOINC 01/045 CRYSTALS (UA) - UnClassifi ed Value: . Units: Normal - Pending 123-999 99-9 LOINC 01/045 CASTS (UA) - Granular Value: . Units: Normal - Pending 123-999 99-9 LOINC 01/045 CASTS (UA) - Hyaline Value: . Units: Normal - Pending 123-999 99-9 LOINC 01/04 CASTS (UA) - Waxy Value: . Units: Normal - Pending 123-999 99-9 LOINC 01/04 CASTS (UA) - Cellular Cast Value: . Units: Normal - Pending 123-999 99-9 LOINC 01/045 CRYSTALS (UA) - Cystine Value: . Units: Normal - Pending 123-999 99-9 LOINC 01/045 CRYSTALS (UA) - Leucine Value: . Units: Normal - Pending 123-999 99-9 LOINC 01/045 CRYSTALS (UA) - Tyrosine Value: . Units: Normal - Pending 123-999 99-9 LOINC 01/045 CRYSTALS (UA) - Triple Phosphate Value: . Units: Normal - Pending 123-999 99-9 LOINC 01/045 CRYSTALS (UA) - Uric Acid Value: . Units: Normal - Pending 123-999 99-9 LOINC 01/045 CRYSTALS (UA) - Calcium Phosphate Value: . Units: Normal - Pending 8248-7 LOINC 01/04 SPERM (UA) Value: . Units: Normal - Pending 123-999 99-9 LOINC 01/045 TRICHOMONA S (UA) Value: . Units: Normal None Pending 123-999 99-9 LOINC 01/04 Transition al Epi Cell Value: . Units: Normal <3-5 Pending 123-999 99-9 LOINC 01/04 CRYSTALS (UA) - Amorphous Phosphate Value: . Units: Normal - Pending 123-999 99-9 [facility] 01/04 CRYSTALS (UA) - Amorphous Urate Value: . Units: Normal - Pending 123-999 99-9 [facility] 01/04 CRYSTALS (UA) - Calcium Oxalate Value: . Units: Normal - Pending 123-999 99-9 [facility] 01/04 Escherichi a coli Value: . Units: Normal Not Detected Pending 123-999 99-9 [facility] 01/04 Enterobact er cloacae Value: . Units: Normal Not Detected Pending 123-999 99-9 [facility] 01/04 Providenci a stuartii Value: . Units: Normal Not Detected Pending 123-999 99-9 [facility] 01/04 Staphyloco ccus saprophyti cus Value: . Units: Normal Not Detected Pending 123-999 99-9 [facility] 01/04 Klebsiella pneumonia Value: . Units: Normal Not Detected Pending 123-999 99-9 [facility] 01/04 Klebsiella oxytoca Value: . Units: Normal Not Detected Pending 123-999 99-9 [facility] 01/04 Marce glabrata Value: . Units: Normal Not Detected Pending 123-999 99-9 [facility] 01/04 BMP Value: . Units: Normal - Final 123-999 99-9 [facility] 01/04 STAT Value: Completed Units: Normal - Final 123-999 99-9 [facility] 01/[address] Bazan Value: . Units: Normal - Pending 123-999 99-9 [facility] 01/04 URINARY TRACT MICROBIOTA SUSCEPTIBI LITY Value: . Units: Normal - Pending 123-999 99-9 [facility] 01/04 Cogent- Value: See Attachment Units: Normal Final 123-999 99-9 [facility] 01/04 4 - Urine Cultures / Hope Count Value: . Units: Normal - Pending 5778-6 [facility] 01/04 COLOR (UA) Value: Yellow Units: Normal - Final 00475-3 [facility] 01/04 CLARITY (UA) Value: Cloudy Units: Abnormal - Final 2349-9 [facility] 01/04 GLUCOSE (UA) Value: Negative Units: Normal <70 mg/dL Final 6 [facility] 01/04 MCH Value: 26.3 Units: pg Normal 25.6-32.2 Final [facility] 01/04 MCH Value: 26.3 Units: pg Normal 25.6-32.2 Final -8 [facility] 01/04 NEUT# Value: 4.79 Units: x10^3/uL Normal 1.56-6.13 Final 9 [facility] 01/04 LYMPH# Value: 1.94 Units: x10^3/uL Normal 1.18-3.74 Final [facility] 01/04 PLT Value: 257 Units: x10^3/uL Normal 182-369 Final [facility] 01/04 MONO# Value: 0.90 Units: x10^3/uL High 0.24-0.36 Final [facility] 01/04 EOS# Value: 0.02 Units: x10^3/uL Low 0.04-0.36 Final [facility] 01/04 BASO# Value: 0.01 Units: x10^3/uL Normal 0.01-0.08 Final 6689-06 [facility] 01/04 WBC Value: 7.68 Units: x10^3/uL Normal 3.98-10.04 Final [facility] 01/04 MONO# Value: 0.90 Units: x10^3/uL High 0.24-0.36 Final [facility] 01/04 EOS# Value: 0.02 Units: x10^3/uL Low 0.04-0.36 Final [facility] 01/04 BASO# Value: 0.01 Units: x10^3/uL Normal 0.01-0.08 Final 6689-06 [facility] 01/04 WBC Value: 7.68 Units: x10^3/uL Normal 3.98-10.04 Final [facility] 01/04 PLT Value: 257 Units: x10^3/uL Normal 182-369 Final 8 [facility] 01/04 NEUT# Value: 4.79 Units: x10^3/uL Normal 1.56-6.13 Final 736-9 [facility] 01/04 LYMPH# Value: 1.94 Units: x10^3/uL Normal 1.18-3.74 Final 789-8 [facility] 01/04 RBC Value: 4.53 Units: 10*6/uL Normal 3.93-5.22 Final 789-8 [facility] 01/04 RBC Value: 4.53 Units: 10*6/uL Normal 3.93-5.22 Final 123-999 99-9 [facility] 01/04 Streptococ cus agalactiae Value: . Units: Normal Not Detected Pending [facility] [address] 01/[address] baumannii Value: . Units: Normal Not Detected Pending [address] [place] [address] 999 [facility] 01/04 Pseudomona s aeruginosa Value: . Units: Normal Not Detected Pending [address] [place] [address] 01/04 Marce SPP (ADTP) Value: . Units: Normal Not Detected Pending [facility] 999 [facility] 01/04 Serratia marcescens Value: . Units: Normal Not Detected Pending [address] [place] [address] 01/04 Marce krusei Value: . Units: Normal Not Detected Pending [address] [place] [address] 999 [facility] 01/04 Morganella morganii Value: . Units: Normal Not Detected Pending [address] [place] [address] 999 [facility] 01/04 Klebsiella aerogenes Value: . Units: Normal Not Detected Pending [facility]-999 99-9 [facility] 01/04 Enterococc us Spp. Value: . Units: Normal Not Detected Pending [address] [place] [address] 999 [facility] 01/04 Citrobacte r Spp. Value: . Units: Normal Not Detected Pending [address] [place] [address] 99-9 [facility] 01/04 Proteus Spp Value: . Units: Normal Not Detected Pending [facility]-999 99-9 [facility] 01/04 Marce albicans Value: . Units: Normal Not Detected Pending [facility]999 99-9 [facility] 01/04 STAT Value: Completed Units: Normal - Final 123-999 99-9 [facility] 01/[address] [place] Value: . Units: Normal - Pending 123-999 99-9 [facility] 01/04 URINARY TRACT MICROBIOTA SUSCEPTIBI LITY Value: . Units: Normal - Pending 123-999 99-9 [facility] 01/04 Cogent- Value: See Attachment Units: Normal Final 123-999 99-9 [facility] 01/04 4 - Urine Cultures / Hope Count Value: . Units: Normal - Pending 5778-6 [facility] 01/04 COLOR (UA) Value: Yellow Units: Normal - Final 99176-0 [facility] 01/04 CLARITY (UA) Value: Cloudy Units: Abnormal - Final 2349-9 [facility] 01/04 GLUCOSE (UA) Value: Negative Units: Normal <70 mg/dL Final 1977-8 [facility] 01/04 BILIRUBIN (UA) Value: Negative Units: Normal <0.5 mg/dL Final 04594-0 [facility] 01/04 KETONES (UA) Value: 5 Units: Normal <10 mg/dL Final 2888-6 [facility] 01/04 PROTEIN (UA) Value: 15 Units: Normal <=30 mg/dL Final 123-999 99-9 [facility] 01/04 BLOOD (UA) Value: Negative Units: Normal <0.06 mg/dL Final 2756-5 [facility] 01/04 pH (UA) Value: 6.0 Units: Normal 5.0-8.0 Final 3107-0 [facility] 01/04 UROBILINOG EN (UA) Value: 0.2 Units: Normal <2 mg/dL Final 2965-2 [facility] 01/04 SPECIFIC GRAVITY (UA) Value: 1.030 Units: Normal 1.005-1.01 5 Final 16111-1 [facility] 01/04 LEUKOCYTE ESTERASE (UA) Value: 15 L Units: Normal <75 Grecia/uL Final 53455-9 [facility] 01/04 NITRITE (UA) Value: Negative Units: Normal <+1 Final 770-8 [facility] 01/04 NEUT% Value: 62.3 Units: % Normal 34.0-71.1 Final 51220-6 [facility] 01/04 LYMPH% Value: 25.3 Units: % Normal 19.3-51.7 Final 5905-5 [facility] 01/04 MONO% Value: 11.7 Units: % Normal 4.7-12.5 Final 788-0 [facility] 01/04 RDW Value: 17.4 Units: % High 11.7-14.4 Final 4544-3 [facility] 01/04 HCT Value: 34.1 Units: % Normal 34.1-44.9 Final 713-8 [facility] 01/04 EOS% Value: 0.3 Units: % Low 0.7-5.8 Final 706-2 [facility] 01/04 BASO% Value: 0.1 Units: % Normal 0.1-1.2 Final 770-8 [facility] 01/04 NEUT% Value: 62.3 Units: % Normal 34.0-71.1 Final 96723-1 [facility] 01/04 LYMPH% Value: 25.3 Units: % Normal 19.3-51.7 Final 590-5 [facility] 01/04 MONO% Value: 11.7 Units: % Normal 4.7-12.5 Final 4543-07 [facility] 01/04 HCT Value: 34.1 Units: % Normal 34.1-44.9 Final 788-0 [facility] 01/04 RDW Value: 17.4 Units: % High 11.7-14.4 Final [facility] 01/04 EOS% Value: 0.3 Units: % Low 0.7-5.8 Final 706-2 [facility] 01/04 BASO% Value: 0.1 Units: % Normal 0.1-1.2 Final 123-999 99-9 [facility] 01/04 3 - Urine Cultures / Hope Count Value: . Units: 3 Normal - Pending 74185-3 [facility] 01/04 WBC (UA) Value: . Units: [HPF] Normal No Range Pending 7872 [facility] 01/04 MCV Value: 75.3 Units: fL Low 79.4-94.8 Final 7872 LOINC 01/04 MCV Value: 75.3 Units: fL Low 79.4-94.8 Final 777-3 LOINC 01/04 MPV Value: 10.2 Units: fL Normal 9.4-12.3 Final 777-3 LOINC 01/04 MPV Value: 10.2 Units: fL Normal 9.4-12.3 Final 785-6 LOINC 01/04 MCHC Value: 34.9 Units: g/dL Normal 32.2-35.5 Final 7 LOINC 01/04 HGB Value: 11.9 Units: g/dL Normal 11.2-15.7 Final 786 LOINC 01/04 MCHC Value: 34.9 Units: g/dL Normal 32.2-35.5 Final 7 LOINC 01/04 HGB Value: 11.9 Units: g/dL Normal 11.2-15.7 Final 123-999 99-9 INC 01/04 3 - Urine Cultures / Hope Count Value: . Units: 3 Normal - Pending 41539-7 INC 01/04 WBC (UA) Value: . Units: [HPF] Normal No Range Pending [id number]- 6 INC 12/24 3 - Urine Cultures / Hope Count / STAT / Urinalysis / Urine Microscopy / UTI Place Baz[place] / URINARY TRACT MICROBIOTA ASSAY / URINARY TRACT MICROBIOTA SUSCEPTIBI LITY / Cogent- / URINARY TRACT MICROBIOTA SUSCEPTIBI LITY Resulted CULTURE INDICATED SENDING TO [place]. Urine received in [place] 12/21/24 -. Urine culture indicated. 67130-9 LOINC 12/21 WBC (UA) Value: >50 Units: [HPF] Abnormal No Range Final 25010-7 LOINC 12/21 WBC (UA) Value: >50 Units: [HPF] Abnormal No Range Final 123-999 99-9 LOINC 12/21 3 - Urine Cultures / Hope Count Value: Complete Units: 3 Normal - Final 60316-0 LOINC 12/21 WBC (UA) Value: >50 Units: [HPF] Abnormal No Range Final 98995-4 LOINC 12/21 WBC (UA) Value: >50 Units: [HPF] Abnormal No Range Final 123-999 99-9 [facility] 12/21 3 - Urine Cultures / Hope Count Value: Complete Units: 3 Normal - Final 123-999 99-9 [facility] 12/21 3 - Urine Cultures / Hope Count Value: Complete Units: 3 Normal - Final 123-999 99-9 [facility] 12/21 3 - Urine Cultures / Hope Count Value: Complete Units: 3 Normal - Final 798-9 [facility] 12/21 RBC (UA) Value: 6-10 Units: Abnormal <6-10 HPF Final 13671-6 [facility] 12/21 SQUAMOUS EPITHELIAL CELLS (UA) Value: 6-10 Units: Normal <11-20 Final 56277-1 [facility] 12/21 BACTERIA (UA) Value: RARE Units: Normal < FEW Final 5822-2 [facility] 12/21 YEAST (UA) Value: [none] Units: Normal None Final 8247-9 [facility] 12/21 MUCOUS (UA) Value: FEW Units: Abnormal - Final 123-999 99-9 [facility] 12/21 CASTS (UA) - RBC Cast Value: [none] Units: Normal - Final 123-999 99-9 [facility] 12/21 CASTS (UA) - Broad Hyaline Value: [none] Units: Normal - Final 123-999 99-9 [facility] 12/21 CRYSTALS (UA) - X-ray Dye Crystals Value: [none] Units: Normal - Final 123-999 99-9 [facility] 12/21 CRYSTALS (UA) - UnClassifi ed Value: [none] Units: Normal - Final 123-999 99-9 INC 12/21 CASTS (UA) - Granular Value: [none] Units: Normal - Final 123-999 99-9 INC 12/21 CASTS (UA) - Hyaline Value: >20 Units: Normal - Final 123-999 99-9 [facility] 12/21 CASTS (UA) - Waxy Value: [none] Units: Normal - Final 123-999 99-9 [facility] 12/21 CASTS (UA) - Cellular Cast Value: [none] Units: Normal - Final 123-999 99-9 [facility] 12/21 CRYSTALS (UA) - Cystine Value: [none] Units: Normal - Final 123-999 99-9 LOINC 12/215 CRYSTALS (UA) - Leucine Value: [none] Units: Normal - Final 123-999 99-9 LOINC 12/21 CRYSTALS (UA) - Tyrosine Value: [none] Units: Normal - Final 123-999 99-9 LOINC 12/215 CRYSTALS (UA) - Triple Phosphate Value: [none] Units: Normal - Final 123-999 99-9 LOINC 12/21 CRYSTALS (UA) - Uric Acid Value: [none] Units: Normal - Final 123-999 99-9 LOINC 12/21 CRYSTALS (UA) - Calcium Phosphate Value: [none] Units: Normal - Final 8248-7 LOINC 12/21 SPERM (UA) Value: None Units: Normal - Final 123-999 99-9 INC 12/21 TRICHOMONA S (UA) Value: [none] Units: Normal None Final 123-999 99-9 INC 12/21 Transition al Epi Cell Value: [none] Units: Normal <3-5 Final 123-999 99-9 INC 12/215 CRYSTALS (UA) - Amorphous Phosphate Value: [none] Units: Normal - Final 123-999 99-9 LOINC 12/21 CRYSTALS (UA) - Amorphous Urate Value: [none] Units: Normal - Final 123-999 99-9 LOINC 12/215 CRYSTALS (UA) - Calcium Oxalate Value: [none] Units: Normal - Final 123-999 99-9 LOINC 12/21 Escherichi a coli Value: 38.40 Units: Normal Not Detected Final 123-999 99-9 LOINC 12/21 Enterobact er cloacae Value: Undetermine d Units: Normal Not Detected Final 123-999 99-9 LOINC 12/21 Providenci a stuartii Value: Undetermine d Units: Normal Not Detected Final 123-999 99-9 LOINC 12/21 Staphyloco ccus saprophyti cus Value: Undetermine d Units: Normal Not Detected Final 123-999 99-9 LOINC 08/20 /2025 Klebsiella pneumonia Value: Undetermine d Units: Normal Not Detected Final 123-999 99-9 LOINC 12/21 Klebsiella oxytoca Value: Undetermine d Units: Normal Not Detected Final 123-999 99-9 LOINC 12/21 Marce glabrata Value: Undetermine d Units: Normal Not Detected Final 123-999 99-9 LOINC 12/21 Streptococ cus agalactiae Value: Undetermine d Units: Normal Not Detected Final 123-999 99-9 LOINC 12/[address] baumannii Value: Undetermine d Units: Normal Not Detected Final 123-999 99-9 LOINC 12/21 Pseudomona s aeruginosa Value: 42.97 Units: Normal Not Detected Final 123-999 99-9 LOINC 12/21 Marce SPP (ADTP) Value: Undetermine d Units: Normal Not Detected Final 123-999 99-9 LOINC 12/21 Serratia marcescens Value: Undetermine d Units: Normal Not Detected Final 123-999 99-9 LOINC 12/21 Marce krusei Value: Undetermine d Units: Normal Not Detected Final 123-999 99-9 LOINC 12/21 Morganella morganii Value: 40.53 Units: Normal Not Detected Final 123-999 99-9 LOINC 12/21 Klebsiella aerogenes Value: Undetermine d Units: Normal Not Detected Final 123-999 99-9 LOINC 12/21 Enterococc us Spp. Value: Undetermine d Units: Normal Not Detected Final 123-999 99-9 LOINC 12/21 Citrobacte r Spp. Value: Undetermine d Units: Normal Not Detected Final 123-999 99-9 LOINC 12/21 Proteus Spp Value: Undetermine d Units: Normal Not Detected Final 123-999 99-9 LOINC 12/21 Marce albicans Value: Undetermine d Units: Normal Not Detected Final 123-999 99-9 LOINC 12/21 STAT Value: Completed Units: Normal - Final 123-999 99-9 LOINC 12/[address] [place] Value: . Units: Normal - Pending 123-999 99-9 LOINC 12/21 URINARY TRACT MICROBIOTA SUSCEPTIBI LITY Value: . Units: Normal - Pending 123-999 99-9 [facility] 12/21 Cogent- Value: See Attachment Units: Normal Final 123-999 99-9 [facility] 12/21 URINARY TRACT MICROBIOTA SUSCEPTIBI LITY Value: . Units: Normal - Final URINARY TRACT MICROBIOTA SUSCEPTIBI LITY Status: Final - Results: >100,000 CFU of Pseudomona s aeruginosa >100,000 CFU of Staphyloco ccus aureus 10,000 CFU of Marce krusei Final Antibioti c 5778-6 [facility] 12/21 COLOR (UA) Value: Brown Units: Normal - Final 41071-2 [facility] 12/21 CLARITY (UA) Value: Cloudy Units: Abnormal - Final 2349-9 [facility] 12/21 GLUCOSE (UA) Value: Negative Units: Normal <70 mg/dL Final 1977-8 [facility] 12/21 BILIRUBIN (UA) Value: 1.0 Units: High <0.5 mg/dL Final 11872-0 [facility] 12/21 KETONES (UA) Value: 80 Units: High <10 mg/dL Final 2888-6 [facility] 12/21 PROTEIN (UA) Value: 30 Units: High <=30 mg/dL Final CULTURE INDICATED SENDING TO [facility] 123999 99-9 [facility] 12/21 BLOOD (UA) Value: 10 E Units: Normal <0.06 mg/dL Final CULTURE INDICATED SENDING TO [place] 2756-5 [facility] 12/21 pH (UA) Value: 6.0 Units: Normal 5.0-8.0 Final 3107-0 [facility] 12/21 UROBILINOG EN (UA) Value: 0.2 Units: Normal <2 mg/dL Final 2965-2 [facility] 12/21 SPECIFIC GRAVITY (UA) Value: 1.025 Units: Normal 1.005-1.01 5 Final 47615-9 [facility] 12/21 LEUKOCYTE ESTERASE (UA) Value: 500 Units: High <75 Grecia/uL Final CULTURE INDICATED SENDING TO [facility] 73815-3 [facility] 12/21 NITRITE (UA) Value: Negative Units: Normal <+1 Final 123-999 99-9 [facility] 12/21 STAT Value: Completed Units: Normal - Final 123-999 99-9 [facility] 12/[address] [place] Value: . Units: Normal - Pending 123-999 99-9 [facility] 12/21 URINARY TRACT MICROBIOTA SUSCEPTIBI LITY Value: . Units: Normal - Pending 123-999 99-9 [facility] 12/21 Cogent- Value: See Attachment Units: Normal Final 123-999 99-9 [facility] 12/21 URINARY TRACT MICROBIOTA SUSCEPTIBI LITY Value: . Units: Normal - Final URINARY TRACT MICROBIOTA SUSCEPTIBI LITY Status: Final - Results: >100,000 CFU of Pseudomona s aeruginosa >100,000 CFU of Staphyloco ccus aureus 10,000 CFU of Marce krusei Final Antibioti c 5778-6 [facility] 12/21 COLOR (UA) Value: Brown Units: Normal - Final 65857-3 [facility] 12/21 CLARITY (UA) Value: Cloudy Units: Abnormal - Final 2349-9 [facility] 12/21 GLUCOSE (UA) Value: Negative Units: Normal <70 mg/dL Final 1977-8 [facility] 12/21 BILIRUBIN (UA) Value: 1.0 Units: High <0.5 mg/dL Final 19402-7 [facility] 12/21 KETONES (UA) Value: 80 Units: High <10 mg/dL Final 2888-6 [facility] 12/21 PROTEIN (UA) Value: 30 Units: High <=30 mg/dL Final CULTURE INDICATED SENDING TO [employer] 123999 99-9 [facility] 12/21 BLOOD (UA) Value: 10 E Units: Normal <0.06 mg/dL Final CULTURE INDICATED SENDING TO [employer] 2756-5 [facility] 12/21 pH (UA) Value: 6.0 Units: Normal 5.0-8.0 Final 3107-0 [facility] 12/21 UROBILINOG EN (UA) Value: 0.2 Units: Normal <2 mg/dL Final 2965-2 [facility] 12/21 SPECIFIC GRAVITY (UA) Value: 1.025 Units: Normal 1.005-1.01 5 Final 02560-3 [facility] 12/21 LEUKOCYTE ESTERASE (UA) Value: 500 Units: High <75 Grecia/uL Final CULTURE INDICATED SENDING TO [place] 88177-5 [facility] 12/21 NITRITE (UA) Value: Negative Units: Normal <+1 Final 798-9 [facility] 12/21 RBC (UA) Value: 6-10 Units: Abnormal <6-10 HPF Final 53592-4 [facility] 12/21 SQUAMOUS EPITHELIAL CELLS (UA) Value: 6-10 Units: Normal <11-20 Final 48718-3 [facility] 12/21 BACTERIA (UA) Value: RARE Units: Normal < FEW Final 5822-2 [facility] 12/21 YEAST (UA) Value: [none] Units: Normal None Final 8247-9 [facility] 12/21 MUCOUS (UA) Value: FEW Units: Abnormal - Final 123-999 99-9 [facility] 12/21 CASTS (UA) - RBC Cast Value: [none] Units: Normal - Final 123-999 99-9 [facility] 12/21 CASTS (UA) - Broad Hyaline Value: [none] Units: Normal - Final 123-999 99-9 [facility] 12/21 CRYSTALS (UA) - X-ray Dye Crystals Value: [none] Units: Normal - Final 123-999 99-9 [facility] 12/21 CRYSTALS (UA) - UnClassifi ed Value: [none] Units: Normal - Final 123-999 99-9 [facility] 12/21 CASTS (UA) - Granular Value: [none] Units: Normal - Final 123-999 99-9 [facility] 12/21 CASTS (UA) - Hyaline Value: >20 Units: Normal - Final 123-999 99-9 INC 12/21 CASTS (UA) - Waxy Value: [none] Units: Normal - Final 123-999 99-9 INC 12/21 CASTS (UA) - Cellular Cast Value: [none] Units: Normal - Final 123-999 99-9 INC 12/21 CRYSTALS (UA) - Cystine Value: [none] Units: Normal - Final 123-999 99-9 INC 12/21 CRYSTALS (UA) - Leucine Value: [none] Units: Normal - Final 123-999 99-9 INC 12/21 CRYSTALS (UA) - Tyrosine Value: [none] Units: Normal - Final 123-999 99-9 LOINC 12/21 CRYSTALS (UA) - Triple Phosphate Value: [none] Units: Normal - Final 123-999 99-9 LOINC 12/21 CRYSTALS (UA) - Uric Acid Value: [none] Units: Normal - Final 123-999 99-9 LOINC 12/21 CRYSTALS (UA) - Calcium Phosphate Value: [none] Units: Normal - Final 8248-7 LOINC 12/21 SPERM (UA) Value: None Units: Normal - Final 123-999 99-9 INC 12/21 TRICHOMONA S (UA) Value: [none] Units: Normal None Final 123-999 99-9 INC 12/21 Transition al Epi Cell Value: [none] Units: Normal <3-5 Final 123-999 99-9 INC 12/21 CRYSTALS (UA) - Amorphous Phosphate Value: [none] Units: Normal - Final 123-999 99-9 INC 12/21 CRYSTALS (UA) - Amorphous Urate Value: [none] Units: Normal - Final 123-999 99-9 LOINC 12/21 CRYSTALS (UA) - Calcium Oxalate Value: [none] Units: Normal - Final 123-999 99-9 INC 12/21 Escherichi a coli Value: 38.40 Units: Normal Not Detected Final 123-999 99-9 INC 12/21 Enterobact er cloacae Value: Undetermine d Units: Normal Not Detected Final 123-999 99-9 LOINC 12/21 Providenci a stuartii Value: Undetermine d Units: Normal Not Detected Final 123-999 99-9 LOINC 12/21 Staphyloco ccus saprophyti cus Value: Undetermine d Units: Normal Not Detected Final 123-999 99-9 LOINC 12/21 Klebsiella pneumonia Value: Undetermine d Units: Normal Not Detected Final 123-999 99-9 LOINC 12/21 Klebsiella oxytoca Value: Undetermine d Units: Normal Not Detected Final 123-999 99-9 LOINC 08/20 /2025 Marce glabrata Value: Undetermine d Units: Normal Not Detected Final 123-999 99-9 LOINC 12/21 Streptococ cus agalactiae Value: Undetermine d Units: Normal Not Detected Final 123-999 99-9 LOINC 12/[address] baumannii Value: Undetermine d Units: Normal Not Detected Final 123-999 99-9 LOINC 12/21 Pseudomona s aeruginosa Value: 42.97 Units: Normal Not Detected Final 123-999 99-9 LOINC 12/21 Marce SPP (ADTP) Value: Undetermine d Units: Normal Not Detected Final 123-999 99-9 LOINC 12/21 Serratia marcescens Value: Undetermine d Units: Normal Not Detected Final 123-999 99-9 LOINC 12/21 Marce krusei Value: Undetermine d Units: Normal Not Detected Final 123-999 99-9 LOINC 12/21 Morganella morganii Value: 40.53 Units: Normal Not Detected Final 123-999 99-9 LOINC 12/21 Klebsiella aerogenes Value: Undetermine d Units: Normal Not Detected Final 123-999 99-9 LOINC 12/21 Enterococc us Spp. Value: Undetermine d Units: Normal Not Detected Final 123-999 99-9 LOINC 12/21 Citrobacte r Spp. Value: Undetermine d Units: Normal Not Detected Final 123-999 99-9 LOINC 12/21 Proteus Spp Value: Undetermine d Units: Normal Not Detected Final 123-999 99-9 LOINC 12/21 Marce albicans Value: Undetermine d Units: Normal Not Detected Final 798-9 LOINC 12/21 RBC (UA) Value: 6-10 Units: Abnormal <6-10 HPF Final 20660-1 LOINC 12/21 SQUAMOUS EPITHELIAL CELLS (UA) Value: 6-10 Units: Normal <11-20 Final 04672-8 LOINC 12/21 BACTERIA (UA) Value: RARE Units: Normal < FEW Final 5822-2 LOINC 12/21 YEAST (UA) Value: [none] Units: Normal None Final 8247-9 LOINC 12/21 MUCOUS (UA) Value: FEW Units: Abnormal - Final 123-999 99-9 LOINC 12/21 CASTS (UA) - RBC Cast Value: [none] Units: Normal - Final 123-999 99-9 LOINC 12/21 CASTS (UA) - Broad Hyaline Value: [none] Units: Normal - Final 123-999 99-9 LOINC 12/21 CRYSTALS (UA) - X-ray Dye Crystals Value: [none] Units: Normal - Final 123-999 99-9 LOINC 12/21 CRYSTALS (UA) - UnClassifi ed Value: [none] Units: Normal - Final 123-999 99-9 LOINC 12/21 CASTS (UA) - Granular Value: [none] Units: Normal - Final 123-999 99-9 LOINC 12/21 CASTS (UA) - Hyaline Value: >20 Units: Normal - Final 123-999 99-9 LOINC 12/21 CASTS (UA) - Waxy Value: [none] Units: Normal - Final 123-999 99-9 LOINC 12/21 CASTS (UA) - Cellular Cast Value: [none] Units: Normal - Final 123-999 99-9 LOINC 12/21 CRYSTALS (UA) - Cystine Value: [none] Units: Normal - Final 123-999 99-9 LOINC 12/21 CRYSTALS (UA) - Leucine Value: [none] Units: Normal - Final 123-999 99-9 LOINC 12/21 CRYSTALS (UA) - Tyrosine Value: [none] Units: Normal - Final 123-999 99-9 LOINC 12/21 CRYSTALS (UA) - Triple Phosphate Value: [none] Units: Normal - Final 123-999 99-9 LOINC 12/21 CRYSTALS (UA) - Uric Acid Value: [none] Units: Normal - Final 123-999 99-9 LOINC 12/21 CRYSTALS (UA) - Calcium Phosphate Value: [none] Units: Normal - Final 8248-7 LOINC 12/21 SPERM (UA) Value: None Units: Normal - Final 123-999 99-9 LOINC 12/21 TRICHOMONA S (UA) Value: [none] Units: Normal None Final 123-999 99-9 LOINC 12/21 Transition al Epi Cell Value: [none] Units: Normal <3-5 Final 123-999 99-9 LOINC 12/21 CRYSTALS (UA) - Amorphous Phosphate Value: [none] Units: Normal - Final 123-999 99-9 LOINC 12/21 CRYSTALS (UA) - Amorphous Urate Value: [none] Units: Normal - Final 123-999 99-9 LOINC 12/21 CRYSTALS (UA) - Calcium Oxalate Value: [none] Units: Normal - Final 123-999 99-9 LOINC 12/21 Escherichi a coli Value: 38.40 Units: Normal Not Detected Final 123-999 99-9 LOINC 12/21 Enterobact er cloacae Value: Undetermine d Units: Normal Not Detected Final 123-999 99-9 LOINC 12/21 Providenci a stuartii Value: Undetermine d Units: Normal Not Detected Final 123-999 99-9 LOINC 12/21 Staphyloco ccus saprophyti cus Value: Undetermine d Units: Normal Not Detected Final 123-999 99-9 LOINC 12/21 Klebsiella pneumonia Value: Undetermine d Units: Normal Not Detected Final 123-999 99-9 LOINC 12/21 Klebsiella oxytoca Value: Undetermine d Units: Normal Not Detected Final 123-999 99-9 LOINC 12/21 Marce glabrata Value: Undetermine d Units: Normal Not Detected Final 123-999 99-9 LOINC 12/21 Streptococ cus agalactiae Value: Undetermine d Units: Normal Not Detected Final 123-999 99-9 LOINC 12/[address] baumannii Value: Undetermine d Units: Normal Not Detected Final 123-999 99-9 LOINC 12/21 Pseudomona s aeruginosa Value: 42.97 Units: Normal Not Detected Final 123-999 99-9 LOINC 12/21 Marce SPP (ADTP) Value: Undetermine d Units: Normal Not Detected Final 123-999 99-9 LOINC 12/21 Serratia marcescens Value: Undetermine d Units: Normal Not Detected Final 123-999 99-9 INC 12/21 Marce krusei Value: Undetermine d Units: Normal Not Detected Final 123-999 99-9 INC 12/21 Morganella morganii Value: 40.53 Units: Normal Not Detected Final 123-999 99-9 INC 12/21 Klebsiella aerogenes Value: Undetermine d Units: Normal Not Detected Final 123-999 99-9 [facility] 12/21 Enterococc us Spp. Value: Undetermine d Units: Normal Not Detected Final 123-999 99-9 INC 12/21 Citrobacte r Spp. Value: Undetermine d Units: Normal Not Detected Final 123-999 99-9 [facility] 12/21 Proteus Spp Value: Undetermine d Units: Normal Not Detected Final 123-999 99-9 [facility] 12/21 Marce albicans Value: Undetermine d Units: Normal Not Detected Final 123-999 99-9 [facility] 12/21 STAT Value: Completed Units: Normal - Final 123-999 99-9 [facility] 12/[address] [place] Value: . Units: Normal - Pending 123-999 99-9 [facility] 12/21 URINARY TRACT MICROBIOTA SUSCEPTIBI LITY Value: . Units: Normal - Pending 123-999 99-9 [facility] 12/21 Cogent- Value: See Attachment Units: Normal Final 123-999 99-9 [facility] [facility] URINARY TRACT MICROBIOTA SUSCEPTIBI LITY Value: . Units: Normal - Final URINARY TRACT MICROBIOTA SUSCEPTIBI LITY Status: Final - Results: >100,000 CFU of Pseudomona s aeruginosa >100,000 CFU of Staphyloco ccus aureus 10,000 CFU of Marce krusei Final Antibioti c 5778-6 [facility] 12/21 COLOR (UA) Value: Brown Units: Normal - Final 82622-1 [facility] 12/21 CLARITY (UA) Value: Cloudy Units: Abnormal - Final 2349-9 [facility] 12/21 GLUCOSE (UA) Value: Negative Units: Normal <70 mg/dL Final 1977-8 [facility] 12/21 BILIRUBIN (UA) Value: 1.0 Units: High <0.5 mg/dL Final 35804-7 LOINC 12/21 KETONES (UA) Value: 80 Units: High <10 mg/dL Final 2888-6 [facility] 12/21 PROTEIN (UA) Value: 30 Units: High <=30 mg/dL Final CULTURE INDICATED SENDING TO [place] 123999 99-9 [facility] 12/21 BLOOD (UA) Value: 10 E Units: Normal <0.06 mg/dL Final CULTURE INDICATED SENDING TO [place] 2756-5 [facility] 12/21 pH (UA) Value: 6.0 Units: Normal 5.0-8.0 Final 3107-0 [facility] 12/21 UROBILINOG EN (UA) Value: 0.2 Units: Normal <2 mg/dL Final 2965-2 [facility] 12/21 SPECIFIC GRAVITY (UA) Value: 1.025 Units: Normal 1.005-1.01 5 Final 31768-4 [facility] 12/21 LEUKOCYTE ESTERASE (UA) Value: 500 Units: High <75 Grecia/uL Final CULTURE INDICATED SENDING TO [place] 56607-7 [facility] 12/21 NITRITE (UA) Value: Negative Units: Normal <+1 Final [facility] 99-9 [facility] 12/21 STAT Value: Completed Units: Normal - Final [facility] 99-9 [facility] 12/[address] [place] Value: . Units: Normal - Pending [facility]999 99-9 [facility] 12/21 URINARY TRACT MICROBIOTA SUSCEPTIBI LITY Value: . Units: Normal - Pending [address] [place] [address] 99-9 [facility] 12/21 Cogent- Value: See Attachment Units: Normal Final [address] [place] [address] 99-9 [facility] 12/21 URINARY TRACT MICROBIOTA SUSCEPTIBI LITY Value: . Units: Normal - Final URINARY TRACT MICROBIOTA SUSCEPTIBI LITY Status: Final - Results: >100,000 CFU of Pseudomona s aeruginosa >100,000 CFU of Staphyloco ccus aureus 10,000 CFU of Marce krusei Final Antibioti c 5778-6 [facility] 12/21 COLOR (UA) Value: Brown Units: Normal - Final 70844-0 [facility] 12/21 CLARITY (UA) Value: Cloudy Units: Abnormal - Final 2349-9 [facility] 12/21 GLUCOSE (UA) Value: Negative Units: Normal <70 mg/dL Final 1977-8 [facility] 12/21 BILIRUBIN (UA) Value: 1.0 Units: High <0.5 mg/dL Final 01492-3 [facility] 12/21 KETONES (UA) Value: 80 Units: High <10 mg/dL Final 2888-6 [facility] 12/21 PROTEIN (UA) Value: 30 Units: High <=30 mg/dL Final CULTURE INDICATED SENDING TO [place] 123-999 99-9 [facility] 12/21 BLOOD (UA) Value: 10 E Units: Normal <0.06 mg/dL Final CULTURE INDICATED SENDING TO [place] 2756-5 [facility] 12/21 pH (UA) Value: 6.0 Units: Normal 5.0-8.0 Final 3107-0 [facility] 12/21 UROBILINOG EN (UA) Value: 0.2 Units: Normal <2 mg/dL Final 2965-2 [facility] 12/21 SPECIFIC GRAVITY (UA) Value: 1.025 Units: Normal 1.005-1.01 5 Final 63249-2 [facility] 12/21 LEUKOCYTE ESTERASE (UA) Value: 500 Units: High <75 Grecia/uL Final CULTURE INDICATED SENDING TO [place] 98610-5 [facility] 12/21 NITRITE (UA) Value: Negative Units: Normal <+1 Final 798-9 [facility] 12/21 RBC (UA) Value: 6-10 Units: Abnormal <6-10 HPF Final 60027-2 [facility] 12/21 SQUAMOUS EPITHELIAL CELLS (UA) Value: 6-10 Units: Normal <11-20 Final 96058-7 [facility] 12/21 BACTERIA (UA) Value: RARE Units: Normal < FEW Final 5822-2 [facility] 12/21 YEAST (UA) Value: [none] Units: Normal None Final 8247-9 [facility] 12/21 MUCOUS (UA) Value: FEW Units: Abnormal - Final 123-999 99-9 [facility] 12/21 CASTS (UA) - RBC Cast Value: [none] Units: Normal - Final 123-999 99-9 [facility] 12/21 CASTS (UA) - Broad Hyaline Value: [none] Units: Normal - Final 123-999 99-9 LOINC 12/21 CRYSTALS (UA) - X-ray Dye Crystals Value: [none] Units: Normal - Final 123-999 99-9 LOINC 12/21 CRYSTALS (UA) - UnClassifi ed Value: [none] Units: Normal - Final 123-999 99-9 LOINC 12/21 CASTS (UA) - Granular Value: [none] Units: Normal - Final 123-999 99-9 LOINC 12/21 CASTS (UA) - Hyaline Value: >20 Units: Normal - Final 123-999 99-9 LOINC 12/21 CASTS (UA) - Waxy Value: [none] Units: Normal - Final 123-999 99-9 LOINC 12/21 CASTS (UA) - Cellular Cast Value: [none] Units: Normal - Final 123-999 99-9 [facility] 12/21 CRYSTALS (UA) - Cystine Value: [none] Units: Normal - Final 123-999 99-9 INC 12/21 CRYSTALS (UA) - Leucine Value: [none] Units: Normal - Final 123-999 99-9 INC 12/21 CRYSTALS (UA) - Tyrosine Value: [none] Units: Normal - Final 123-999 99-9 INC 12/21 CRYSTALS (UA) - Triple Phosphate Value: [none] Units: Normal - Final 123-999 99-9 INC 12/21 CRYSTALS (UA) - Uric Acid Value: [none] Units: Normal - Final 123-999 99-9 LOINC 12/21 CRYSTALS (UA) - Calcium Phosphate Value: [none] Units: Normal - Final 8248-7 LOINC 12/21 SPERM (UA) Value: None Units: Normal - Final 123-999 99-9 LOINC 12/21 TRICHOMONA S (UA) Value: [none] Units: Normal None Final 123-999 99-9 LOINC 12/21 Transition al Epi Cell Value: [none] Units: Normal <3-5 Final 123-999 99-9 LOINC 12/21 CRYSTALS (UA) - Amorphous Phosphate Value: [none] Units: Normal - Final 123-999 99-9 LOINC 12/21 CRYSTALS (UA) - Amorphous Urate Value: [none] Units: Normal - Final 123-999 99-9 LOINC 12/21 CRYSTALS (UA) - Calcium Oxalate Value: [none] Units: Normal - Final 123-999 99-9 LOINC 12/21 Escherichi a coli Value: 38.40 Units: Normal Not Detected Final 123-999 99-9 LOINC 12/21 Enterobact er cloacae Value: Undetermine d Units: Normal Not Detected Final 123-999 99-9 LOINC 12/21 Providenci a stuartii Value: Undetermine d Units: Normal Not Detected Final 123-999 99-9 LOINC 12/21 Staphyloco ccus saprophyti cus Value: Undetermine d Units: Normal Not Detected Final 123-999 99-9 LOINC 12/21 Klebsiella pneumonia Value: Undetermine d Units: Normal Not Detected Final 123-999 99-9 LOINC 12/21 Klebsiella oxytoca Value: Undetermine d Units: Normal Not Detected Final 123-999 99-9 LOINC 12/21 Marce glabrata Value: Undetermine d Units: Normal Not Detected Final 123-999 99-9 LOINC 12/21 Streptococ cus agalactiae Value: Undetermine d Units: Normal Not Detected Final 123-999 99-9 LOINC 12/[address] baumannii Value: Undetermine d Units: Normal Not Detected Final 123-999 99-9 LOINC 12/21 Pseudomona s aeruginosa Value: 42.97 Units: Normal Not Detected Final 123-999 99-9 LOINC 12/21 Marce SPP (ADTP) Value: Undetermine d Units: Normal Not Detected Final 123-999 99-9 LOINC 12/21 Serratia marcescens Value: Undetermine d Units: Normal Not Detected Final 123-999 99-9 LOINC 12/21 Marce krusei Value: Undetermine d Units: Normal Not Detected Final 123-999 99-9 LOINC 12/21 Morganella morganii Value: 40.53 Units: Normal Not Detected Final 123-999 99-9 LOINC 12/21 Klebsiella aerogenes Value: Undetermine d Units: Normal Not Detected Final 123-999 99-9 LOINC 12/21 Enterococc us Spp. Value: Undetermine d Units: Normal Not Detected Final 123-999 99-9 LOINC 12/21 Citrobacte r Spp. Value: Undetermine d Units: Normal Not Detected Final 123-999 99-9 LOINC 12/21 Proteus Spp Value: Undetermine d Units: Normal Not Detected Final 123-999 99-9 LOINC 12/21 Marce albicans Value: Undetermine d Units: Normal Not Detected Final YH7491- 6 LOINC 12/20 Complete Blood Count / CMP / Cogent- Completed Result for: Dianelys Reagan ( 1950 , F) 123-999 99-9 LOINC 12/19 Cogent- Value: See Attachment Units: Normal Final 3097-3 LOINC 12/19 BUN/CREAT RATIO Value: 12.1 Units: {calc} Normal 10-20 Final 787-2 LOINC 12/19 MCV Value: 84.0 Units: fL Normal 79.4-94.8 Final 777-3 LOINC 12/19 MPV Value: 7.9 Units: fL Low 9.4-12.3 Final 6768-6 LOINC 12/19 ALKALINE PHOSPHATAS E (ALP) Value: 65 Units: [IU]/L Normal 34-104 Final 1742-6 LOINC 12/19 ALANINE AMINOTRANS FERASE (ALT) Value: 28 Units: [IU]/L Normal 7-52 Final 1920-8 LOINC 12/19 ASPARTATE AMINOTRANS FERASE (AST) Value: 52 Units: [IU]/L High 13-39 Final 2951-2 LOINC 12/19 SODIUM Value: 135 Units: mEq/L Low 136-145 Final 2823-3 LOINC 12/19 POTASSIUM Value: 2.8 Units: mEq/L Low 3.5-5.1 Final 2074-0 LOINC 12/19 CHLORIDE Value: 91 Units: mEq/L Low 98-107 Final 2028-01 [facility] 12/19 CARBON DIOXIDE (BICARB) Value: 32 Units: mEq/L High 21-31 Final 63601-8 [facility] 12/19 ANION GAP Value: 14.8 Units: mEq/L Normal 8-16 Final 234-7 [facility] 12/19 GLUCOSE Value: 68 Units: mg/dL Low 74-109 Final 37504-7 [facility] 12/19 CALCIUM Value: 8.3 Units: mg/dL Low 8.6-10.2 Final 1974-06 [facility] 12/19 TOTAL BILIRUBIN Value: 0.4 Units: mg/dL Normal 0.3-1.0 Final 30940 [facility] 12/19 BLOOD UREA NITROGEN (BUN) Value: 7.4 Units: mg/dL Normal 7.0-25.0 Final 21600 [facility] 12/19 CREATININE Value: 0.61 Units: mg/dL Normal 0.6-1.3 Final 37971-2 [facility] 12/19 Estimated GFR Value: >60.0 Units: mL/min/{1.7 3_m2} Normal >60.0 Final 16636-1 [facility] 12/19 Estimated GFR AA Value: >60.0 Units: mL/min/{1.7 3_m2} Normal >60.0 Final 7809-06 [facility] 12/19 MCH Value: 27.6 Units: pg Normal 25.6-32.2 Final 8 [facility] 12/19 HGB Value: 12.7 Units: g/dL Normal 11.2-15.7 Final 7809-06 [facility] 12/19 MCHC Value: 32.9 Units: g/dL Normal 32.2-35.5 Final 28852 [facility] 12/19 TOTAL PROTEIN Value: 5.2 Units: g/dL Low 6.4-8.9 Final 45586-5 [facility] 12/19 GLOBULIN, Calculated Value: 2.5 Units: g/dL Normal 1.9-3.7 Final 17517 [facility] 12/19 ALBUMIN Value: 2.7 Units: g/dL Low 3.5-5.7 Final 713-8 [facility] 12/19 EOS% Value: 3.3 Units: % Normal 0.7-5.8 Final 706-2 [facility] 12/19 BASO% Value: 0.6 Units: % Normal 0.1-1.2 Final 770-8 [facility] 12/19 NEUT% Value: 71.8 Units: % High 34.0-71.1 Final 80463-1 [facility] 12/19 LYMPH% Value: 15.2 Units: % Low 19.3-51.7 Final 5905-5 [facility] 12/19 MONO% Value: 9.1 Units: % Normal 4.7-12.5 Final 4544-3 [facility] 12/19 HCT Value: 38.7 Units: % Normal 34.1-44.9 Final 788-0 [facility] 12/19 RDW Value: 19.6 Units: % High 11.7-14.4 Final 789-8 [facility] 12/19 RBC Value: 4.61 Units: 10*6/uL Normal 3.93-5.22 Final 1759-0 [facility] 12/19 A/G RATIO Value: 1.1 Units: {ratio} Normal 0.8-2.0 Final 751-8 [facility] 12/19 NEUT# Value: 6.6 Units: x10^3/uL High 1.56-6.13 Final 736-9 [facility] 12/19 LYMPH# Value: 1.4 Units: x10^3/uL Normal 1.18-3.74 Final 777-3 [facility] 12/19 PLT Value: 402 Units: x10^3/uL High 182-369 Final 742-7 [facility] 12/19 MONO# Value: 0.8 Units: x10^3/uL High 0.24-0.36 Final 711-2 [facility] 12/19 EOS# Value: 0.3 Units: x10^3/uL Normal 0.04-0.36 Final 704-7 [facility] 12/19 BASO# Value: 0.1 Units: x10^3/uL High 0.01-0.08 Final 6690-2 [facility] 12/19 WBC Value: 9.2 Units: x10^3/uL Normal 3.98-10.04 Final Test Code Code System Name Date Urinalysis 01/04/2025 Urine Microscopy 01/04/2025 URINARY TRACT MICROBIOTA ASS AY 01/04/2025 01/04/2025 Urine Microscopy 01/04/2025 URINARY TRACT MICROBIOTA ASS AY 01/04/2025 01/04/2025 Urinalysis 01/04/2025 Complete Blood Count 025 URINARY TRACT MICROBIOTA ASS AY 01/04/2025 01/04/2025 Urinalysis 01/04/2025 Complete Blood Count 025 01/04/2025 Urine Microscopy 01/04/2025 Complete Blood Count 025 01/04/2025 Urine Microscopy 01/04/2025 Urine Microscopy 12/21/2024 12/21/2024 Urine Microscopy 12/21/2024 12/21/2024 Urine Microscopy 12/21/2024 URINARY TRACT MICROBIOTA ASS AY 12/21/2024 12/21/2024 Urinalysis 12/21/2024 12/21/2024 Urinalysis 12/21/2024 Urine Microscopy 12/21/2024 URINARY TRACT MICROBIOTA ASS AY 12/21/2024 Urine Microscopy 12/21/2024 URINARY TRACT MICROBIOTA ASS AY 12/21/2024 12/21/2024 Urinalysis 12/21/2024 12/21/2024 Urinalysis 12/21/2024 Urine Microscopy 12/21/2024 URINARY TRACT MICROBIOTA ASS AY 12/21/2024 12/19/2024 CMP 12/19/2024 Complete Blood Count 025 CMP 12/19/2024 Complete Blood Count 025 CMP 12/19/2024 Complete Blood Count 025 CMP 12/19/2024 Complete Blood Count 025 Social History Social History Observation Description Start Date End Date Code Code System Current Smoking Status Tobacco smoking consumption unknown [id number] SNOMED CT Sex Assigned At Female 1950 49817-3 [facility] Gender Identity Vital Signs Code Code System Vitals Name Values and Units Timing Information 8462-4 [facility] Blood Pressure-Diastolic Value=60 Un its=mmHg 01/05/2025 8480-6 [facility] Blood Pressure-Systolic Value=91 Uni ts=mmHg 01/05/2025 8867-4 [facility] Heart rate Value=97.0 Units=/min 08/2024 53940-8 [facility] O2 % dC Oximetry Value=97.0 Units= % 01/05/2025 9279-1 [facility] Respiratory Rate Value=24.0 Units=/m in 01/05/2025 8310-5 [facility] Body Temperature Value=98.6 Units= F 01/05/2025 21097-5 [facility] Pain Level Value=0.0 01/04/2025 16862-7 [facility] Weight Uytnl=515.0 Units=Lbs 07/2024 8302-2 [facility] Height Value=66.0 Units=Inches 12/09/2024
--- OUTSIDE RECORDS SUMMARY | 2025-01-04 21:14 | XMS_ITS | Encounter Summary ---
Author Organization [facility] Address 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 Gender Identity Not on file [...] 136 - 145 mmol/L 10/15/2024 6:18 AM CDT [facility] POTASSIUM 3.8 3.5 - 5.1 mmol/L 10/15/2024 6:18 AM CDT [facility] CHLORIDE 96(L) 98 - 107 mmol/L 10/15/2024 6:18 AM CDT [facility] CO2 19(L) 22 - 29 mmol/L 10/15/2024 6:18 AM CDT [facility] CALCIUM 9.2 8.8 - 10.2 mg/dL 10/15/2024 6:18 AM CDT [facility] BUN 5(L) 8 - 23 mg/dL 10/15/2024 6:18 AM T [facility] CREATININE 0.54 0.51 - 0.95 mg/dL 10/15/2024 6:18 AM T [facility] Comment:The GFR result is no t clinically significant on patients <18 or >70 years of age. GLUCOSE 96 74 - 99 mg/dL 10/15/2024 6:18 AM T [facility] GFR >60 mL/min/1.7 3 sq meter 10/15/2024 6:18 AM T [facility] Comment:eGFR calculated with 2020 CKD-EPI equation. Vegetarian diet, extremely high or low muscle mass, and may affect results. Cystatin C with Glomerular Filtration Rate is a suitable alternative for these patients. ANION GAP 19 9 - 20 mmol/L 10/15/2024 6:18 AM T [facility] Blood Collection / Unknown 10/15/2024 3:30 AM CDT 10/15/2024 5:21 AM CDT us Harry Reyes DO CHEMISTRY ORDERABLES Final R esult [facility] CLIA # [id number] [address] [facility] [place] [address] documented in this encounter Visit Diagnoses Not [...] documented as of this encounter Care Teams Ict Trainer Relationship Specialty Start Date End Date Non-Staff, Physician NO ADDRESS ON FILE PCP - General 08/30/13 documented as of this encounter
--- OUTSIDE RECORDS SUMMARY | 2025-01-04 21:14 | XMS_ITS | Encounter Summary ---
Author Organization [facility] Address 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 Gender Identity Not on file Sexual [...] - 4.5 mg/dL 10/06/2024 6:34 PM CDT [facility] Blood Collection / Unknown 10/06/2024 5:22 PM CDT 10/06/2024 6:11 PM CDT External Provider [facility] CHEMISTRY ORDERABLES Final Result Performing Organization Address City/[facility] Co de Phone Number [facility] CLIA # [id number] [address] [address] * MAGNESIUM LEVEL (10/06/2024 5:22 PM CDT) MAGNESIUM 1.9 1.6 - 2.4 mg/dL 10/06/2024 6:34 PM CDT [facility] Blood Collection / Unknown 10/06/2024 5:22 PM CDT 10/06/2024 6:11 PM CDT External Provider [facility] CHEMISTRY ORDERABLES Final Result Performing Organization Address City/[facility] Co de Phone Number [facility] CLIA # [id number] [address] [place] [id number] documented in this encounter Visit Diagnoses Not [...] documented as of this encounter Care Teams Coal Pulverizing Operator Relationship Specialty Start Date End Date Non-Staff, Physician NO ADDRESS ON FILE PCP - General 08/30/13 documented as of this encounter
--- NOTE | 2025-01-04 21:36 | CTR_ITS ---
PROCEDURE INFORMATION: Exam: CT Abdomen And Pelvis Without Contrast Exam date and time: 01/04/2025 10:25 PM Age: 74 years old Clinical indication: Abdominal pain; Generalized TECHNIQUE: Imaging protocol: Computed tomography of the abdomen and pelvis without contrast. 1 image(s) are submitted. Radiation optimization: All CT scans at this facility use at least one of these dose optimization techniques: automated exposure control; mA and/or kV adjustment per patient size (includes targeted exams where dose is matched to clinical indication); or iterative reconstruction. COMPARISON: CT abdomen pelvis w con* [id number] 11/15/2024 2:55 AM RADIATION DOSE METRICS: Total DLP (mGy-cm): 825.43 FINDINGS: Liver: Suggestion of possible fatty liver infiltration. Gallbladder and biliary ducts: Status post cholecystectomy. No urinary tract obstruction or calculus on either side. Left mid abdomen colostomy without bowel obstruction or parastomal hernia, unchanged. Pancreas: Normal. No ductal dilation. Spleen: Normal. No splenomegaly. Adrenal glands: Normal. No mass. Kidneys and ureters: See Gallbladder and biliary ducts finding. Stomach and bowel: See Intraperitoneal space finding. Appendix: See Intraperitoneal space finding. Intraperitoneal space: Abdominal pain is difficult to explain. No evidence of diverticulitis or small bowel obstruction. Appendix is not visualized although no evidence of appendicitis. Vasculature: Unremarkable. No abdominal aortic aneurysm. Lymph nodes: Unremarkable. No enlarged lymph nodes. Urinary bladder: See Reproductive finding. Reproductive: Status post hysterectomy. Bilateral lung bases are clear. Normal heart size. Urinary bladder is unremarkable. Degenerative changes of the lumbar spine. Subtle edema along the right mid abdominal mesentery, unchanged. Bones/joints: See Reproductive finding. Soft tissues: See Gallbladder and biliary ducts finding. Other findings: slightly limited study due to lack of intravenous contrast enhancement. CT/CT abdomen pelvis wo con [id number] IMPRESSION: 1. Slightly limited study due to lack of intravenous contrast enhancement. 2. Suggestion of possible fatty liver infiltration. 3. Status post cholecystectomy. No urinary tract obstruction or calculus on either side. Left mid abdomen colostomy without bowel obstruction or parastomal hernia, unchanged. 4. Abdominal pain is difficult to explain. No evidence of diverticulitis or small bowel obstruction. Appendix is not visualized although no evidence of appendicitis.
--- NOTE | 2025-01-04 21:50 | PC.NURSE ---
Delay in obtaining blood work and administering IV medication due to lack of IV access. Multiple attempts made using ultrasound guided IV without success. Patient moved to Rm 10 to establish central line access.
[2025-01-04 21:57] LABS: ABG PCO2 14.5 mmHg (35-45); ABG PH Result 7.74 (7.35-7.45); Alveolar-Arterial Oxygen Gradi 0.9 mmHg (5-10); Arterial Blood Gas Hematocrit 33.5 % (37-47); Blood Gas Sample Site Brachial, left; Blood Gas Sample Type Arterial; Carboxyhemoglobin 0.6 %THgb (0.4-20.1); Glucose Level-ABG 71.0 mg/dL (70-115); HCO3 ABG 19.6 mmol/L (22-26); Ionized Calcium Level - ABG 0.9 mmol/L (1.1-1.4); Methemoglobin 0.9 % (0.4-1.5); Oxygen Saturation ABG > 99.1; PO2 ABG 121.0 mmHg (80.0-100.0); Potassium Level - ABG 2.0 mmol/L (3.5-5.0); Sodium Level - ABG 130.0 mmol/L (131-143)
--- NOTE | 2025-01-04 22:03 | XRR_ITS ---
PROCEDURE INFORMATION: Exam: XR Chest Exam date and time: 01/04/2025 10:08 PM Age: 74 years old Clinical indication: Device placement; Other: Central line TECHNIQUE: Imaging protocol: Radiologic exam of the chest. 3 image(s) are submitted. Views: 1 view. COMPARISON: CR XR chest 1V [id number] 11/15/2024 7:26 PM FINDINGS: Lungs: Unremarkable. No consolidation. Pleural spaces: right internal jugular central venous catheter with tip in the cavoatrial junction region without arcelia evidence of pneumothorax. Heart/Mediastinum: Unremarkable. No cardiomegaly. Bones/joints: Unremarkable. XR/XR chest 1V portable [id number] IMPRESSION: Right internal jugular central venous catheter with tip in the cavoatrial junction region without arcelia evidence of pneumothorax.
--- NOTE | 2025-01-04 22:20 | W.ED.RECABL ---
HPI - Recheck/Abnormal Lab/Rx General: Chief Complaint: Recheck/Abnormal Lab/Rx Stated Complaint: weakness, headache Time Seen by Provider: 01/04/25 21:08 History of Present Illness: 74-year-old female presents via EMS from a local retirement she is confused and disoriented she was hypotensive on the scene is hypotensive when she arrives here. They had recorded a blood potassium level of 2.4 from retirement I was directed her to the emergency room. It also reported increased output from her colostomy and weakness. She was hypotensive and hypoglycemic on arrival here with blood sugars in the 60s. When asked questions she was not able to give intelligible answers count of bowels on. We are not able to establish good IV access central line was placed emergently. Related Data Home Medications ?Medication ?Instructions ?Recorded ?Confirmed apixaban 5 mg tablet (Eliquis) 5 mg PO BID 11/15/24 11/15/24 atenolol 25 mg tablet 25 mg PO QAM 11/15/24 11/15/24 bethanechol chloride 25 mg tablet 12.5 mg PO TID 11/15/24 11/15/24 ondansetron 4 mg disintegrating See Rx Instructions .Route .COMPLEX 11/15/24 11/15/24 tablet pantoprazole 40 mg tablet,delayed 40 mg PO BID 11/15/24 11/15/24 release Allergies Allergy/AdvReac Type Severity Reaction Status Date / Time morphine Allergy Unknown HIVES Verified 08/08/24 11:39 oxycodone Allergy Unknown HIVES Verified 08/08/24 11:39 Review of Systems Const: Denies: fever(s) or chills Card: Denies: chest pain Resp: Denies: dyspnea GI: Denies: abdominal pain : Denies: dysuria, urinary frequency or urinary urgency Musc: Denies: neck pain or back pain Skin/Breast: Denies: rash PFSH ED PFSH: Medical History Chronic neck and back pain Chronic nausea Encounter for long-term opiate analgesic use Hypertension Irritable bowel syndrome Spondylolisthesis, cervical region Surgical History History of cholecystectomy History of lumbar surgery History of carpal tunnel surgery History of knee replacement S/P rotator cuff repair History of hysterectomy Family History Other Cancer Social History Smoking and tobacco/nicotine status: never used tobacco/nicotine Second hand smoke exposure: No Alcohol intake: never Substance/Drug Use: never Household members: spouse Housing: House Physical Exam Const: ORIENTATION/CONSCIOUSNESS: Yes awake HENMT: COMMON NORMALS: normocephalic, atraumatic and hearing grossly normal bilaterally HEAD & SCALP: normocephalic and atraumatic Resp: COMMON NORMALS: normal respiratory effort, No retractions, No use of accessory muscles and clear to auscultation bilaterally AUSCULTATION: clear to auscultation bilaterally Cardio: COMMON NORMALS: regular rate, regular rhythm and No murmurs present (Cardio) RATE: regular rate RHYTHM: regular rhythm GI: COMMON NORMALS: Soft to palpation and No hepatosplenomegaly present AUSCULTATION: Yes normoactive bowel sounds PALPATION: Yes Soft to palpation, No Tenderness to palpation present (GI), No Guarding due to palpation present (GI) and Yes No hepatosplenomegaly present Extremity: COMMON NORMALS: normal to inspection, capillary refill normal, no clubbing, cyanosis or edema, no calf tenderness and no pedal edema Skin: OTHER: Stage I decubitus ulcer presacral. Procedures Central Line Placement Right IJ: Patient Placed on Monitor/Pulse Ox: Yes MD Prep: mask, gown and gloves Central Line Prep: Chlorhexidine scrub Local Anesthetic: lidocaine 1% Amount of anesthesia used (mL): 7 Ultrasound Used for Placement: Yes Central Line Lumen Inserted: triple Post Procedure: sutured in place, good blood return, all ports aspirated, flushed, capped and sterile dressing applied Post Procedure X-Ray: tip of catheter in good position Patient Tolerated Procedure: well Complications: none Course Vital Signs: Vital signs: Vital Signs Temperature 97.7 F 01/04/25 21:08 Pulse Rate 89 01/04/25 23:30 Respiratory Rate 28 H 01/04/25 22:30 Blood Pressure 130/62 01/04/25 23:30 Pulse Oximetry 96 01/04/25 23:30 Oxygen Delivery Me thod Room Air 01/04/25 21:50 Oxygen Flow Rate 2 01/04/25 21:08 MDM - Recheck/Abnormal Lab/Rx Medical Decision Making Patient presented was very confused disoriented and altered. At that she improved significantly after she her blood sugar was corrected she was able to go through review of systems with she does not recall anything in particular that has been bothering her she just generally has not felt well. CT does not show any acute findings. While her white count is not elevated she does have a high anion gap and has metabolic acidosis she has respiratory alkalosis as well as show on her blood gas. She is anemic which is relatively new compared to some of her previous hemoglobins in the last 2 months. She is hypokalemic and hypophosphatemic magnesium make. She has chronic kidney disease at her regular baseline creatinine. Urine did not show signs of infection and her initial EKG did not show significant change from previous. Discussed with hospitalist will admit for sepsis hypomagnesemia hypokalemia altered mental status hypoglycemia discussed orders written for ICU. Lab Data 01/04/25 22:10 01/04/25 22:10 Radiology Impressions Abdomen/Pelvis CT 01/04/25 21:36 IMPRESSION: 1. Slightly limited study due to lack of intravenous contrast enhancement. 2. Suggestion of possible fatty liver infiltration. 3. Status post cholecystectomy. No urinary tract obstruction or calculus on either side. Left mid abdomen colostomy without bowel obstruction or parastomal hernia, unchanged. 4. Abdominal pain is difficult to explain. No evidence of diverticulitis or small bowel obstruction. Appendix is not visualized although no evidence of appendicitis. Chest X-Ray 01/04/25 22:03 IMPRESSION: Right internal jugular central venous catheter with tip in the cavoatrial junction region without arcelia evidence of pneumothorax. Laboratory Results WBC 6.51 10^3/uL (3.29-11.43) 01/04/25 22:10 RBC 3.97 10^6/uL (3.85-5.65) 01/04/25 22:10 Hgb 10.30 g/dL (11.27-16.99) L 01/04/25 22:10 Hct 29.8 % (36-47) L 01/04/25 22:10 MCV 75.1 fl (85-98) L 01/04/25 22:10 MCH 25.9 pg (27-33) L 01/04/25 22:10 MCHC 34.6 g/dL (30-55) 01/04/25 22:10 RDW 17.6 % (12.1-15.1) H 01/04/25 22:10 Plt Count 216 10^3/cmm (157-399) 01/04/25 22:10 MPV 9.7 fL (7.4-10.4) 01/04/25 22:10 Neut % (Auto) 68.6 % 01/04/25 22:10 Lymph % (Auto) 19.8 % 01/04/25 22:10 [place] % (Auto) 10.4 % 01/04/25 22:10 Eos % (Auto) 0.2 % 01/04/25 22:10 Baso % (Auto) 0.5 % 01/04/25 22:10 Neut # (Auto) 4.47 10^3/uL (1.8-7.7) 01/04/25 22:10 Lymph # (Auto) 1.3 10^3/uL (0.8-4.8) 01/04/25 22:10 [place] # (Auto) 0.7 10^3/uL (0.2-0.9) 01/04/25 22:10 Eos # (Auto) 0.0 10^3/uL (0.0-0.8) 01/04/25 22:10 Baso # (Auto) 0.0 10^3/uL (0.0-0.1) 01/04/25 22:10 Nucleated RBC % (auto) 0 % 01/04/25 22:10 Nucleated RBCs # 0.0 /100WBC 01/04/25 22:10 Specimen Type Arterial 01/04/25 21:46 Sample Site Brachial, left 01/04/25 21:46 ABG pH 7.74 (7.35-7.45) H* 01/04/25 21:46 ABG pCO2 14.5 mmHg (35-45) L* 01/04/25 21:46 ABG pO2 121.0 mmHg (80.0-100.0) H 01/04/25 21:46 ABG HCO3 19.6 mmol/L (22-26) L 01/04/25 21:46 ABG O2 Saturation > 99.1 01/04/25 21:46 ABG Base Excess 2.3 mmol/L (-2.0-2.0) H 01/04/25 21:46 Serigo Test N/a 01/04/25 21:46 A-a O2 Gradient 0.9 mmHg (5-10) L 01/04/25 21:46 Hematocrit 33.5 % (37-47) L 01/04/25 21:46 Hgb O2 Saturation 98.2 % (95-100) 01/04/25 21:46 Carboxyhemoglobin 0.6 %THgb (0.4-20.1) 01/04/25 21:46 Methemoglobin 0.9 % (0.4-1.5) 01/04/25 21:46 Total Hemoglobin 10.9 g/dL (12-16) L 01/04/25 21:46 Sodium 130.0 mmol/L (131-143) L 01/04/25 21:46 Potassium 2.0 mmol/L (3.5-5.0) L 01/04/25 21:46 Glucose 71.0 mg/dL (70-115) 01/04/25 21:46 Ionized Calcium 0.9 mmol/L (1.1-1.4) L 01/04/25 21:46 O2 Delivery Device Room air 01/04/25 21:46 Motor Block Mechanic ID [email or web address] 01/04/25 21:46 Sodium 133 mmol/L (136-145) L 01/04/25 22:10 Potassium 2.1 mmol/L (3.5-5.1) L* 01/04/25 22:10 Chloride 89 mmol/L (98-107) L 01/04/25 22:10 Carbon Dioxide 17 mmol/L (22-29) L 01/04/25 22:10 Anion Gap 29.1 (5-19) H 01/04/25 22:10 BUN 24 mg/dL (8-23) H 01/04/25 22:10 Creatinine 1.4 mg/dL (0.5-0.9) H 01/04/25 22:10 GFR Calculation Not Reportable 01/04/25 22:10 Glucose 69 mg/dL (65-115) 01/04/25 22:10 POC Glucose 124 mg/dL (70-110) H 01/04/25 22:49 Calculated Osmolality 278 mOsm/kg (285-295) L 01/04/25 22:10 Lactic Acid 2.9 mmol/L (0.5-2.2) H 01/04/25 22:10 Calcium 7.1 mg/dL (8.5-10.5) L 01/04/25 22:10 Magnesium 1.1 mg/dL (1.7-2.3) L 01/04/25 22:10 Total Bilirubin 0.6 mg/dL (0.15-1.2) 01/04/25 22:10 AST 51 U/L (0-32) H 01/04/25 22:10 ALT 17 U/L (0-33) 01/04/25 22:10 Alkaline Phosphatase 63 U/L (35-105) 01/04/25 22:10 Creatine Kinase 90 U/L (26-192) 01/04/25 22:10 Total Protein 5.1 g/dL (6.6-8.7) L 01/04/25 22:10 Albumin 2.7 g/dL (3.5-5.2) L 01/04/25 22:10 Globulin 2.4 g/dL (1.3-4.6) 01/04/25 22:10 Lipase 26 U/L (13-60) 01/04/25 22:10 Urine Color Dark yellow (Yellow) A 01/04/25 23:00 Urine Appearance Clear (CLEAR) 01/04/25 23:00 Urine pH 5.0 (5-7) 01/04/25 23:00 Ur Specific [place] 1.025 (1.005-1.030) 01/04/25 23:00 Urine Protein 1+ (Negative) A 01/04/25 23:00 Urine Glucose (UA) Negative (Normal) 01/04/25 23:00 Urine Ketones 1+ (Negative) H 01/04/25 23:00 Urine Blood Negative (Negative) 01/04/25 23:00 Urine Nitrate Negative (Negative) 01/04/25 23:00 Urine Bilirubin Negative (Negative) 01/04/25 23:00 Urine Urobilinogen 1.0 mg/dL (Negative) 01/04/25 23:00 Ur Leukocyte Esterase Negative (Negative) 01/04/25 23:00 Urine RBC 0-2 /hpf (0-2) 01/04/25 23:00 Urine WBC 0-5 /hpf (0-5) 01/04/25 23:00 Ur Squamous Epith Cells 0-5 /hpf (0-5) 01/04/25 23:00 Amorphous Sediment Not Reportable 01/04/25 23:00 Urine Bacteria None seen /hpf (NONE) 01/04/25 23:00 Hyaline Casts 23.57 /lpf 01/04/25 23:00 Influenza A (PCR) Negative (Negative) 01/04/25 23:10 Influenza Type B (PCR) Negative (Negative) 01/04/25 23:10 RSV (PCR) Negative (Negative) 01/04/25 23:10 SARS-CoV-2 (PCR) Negative (Negative) 01/04/25 23:10 All radiology interpretation(s) finalized by discharge Critical Care Time Critical Care Time: Critical Care Time: Yes Total Critical Care Time: 35 Attestation: The high probability of a clinically significant, sudden or life threatening deterioration of the patient's cardiovascular respiratory endocrine system(s) required my full and direct attention, intervention and personal management. The critical care time is as shown. This time is in addition to time spent performing any reported procedures but includes the following: [x] Data and vital sign review and interpretation [x] Patient assessment, examination and intervention [x] Documentation [x] Medication orders and management Discharge Plan Discharge Patient Disposition: Admitted As Inpatient Clinical Impression: Sepsis, Hypokalemia, Hypomagnesemia, Lactic acidosis, Hypotension, Anemia, Chronic kidney disease (CKD), Hyperventilation Condition: Stable Coding Level of Care Code ED Blood Bank Technician for Vicky Downing
[2025-01-04 22:34] LABS: Hematocrit 29.8 % (36-47); Hemoglobin 10.30 g/dL (11.27-16.99); Mean Corpuscular HGB Conc 34.6 g/dL (30-55); Mean Corpuscular Hemoglobin 25.9 pg (27-33); Mean Corpuscular Volume 75.1 fl (85-98); Nucleated Red Blood Cells % 0 %; Platelet Count 216 10^3/cmm (157-399); Red Blood Count 3.97 10^6/uL (3.85-5.65); White Blood Count 6.51 10^3/uL (3.29-11.43)
[2025-01-04 22:45] LABS: Alanine Aminotransferase 17 U/L (0-33); Albumin Level 2.7 g/dL (3.5-5.2); Alkaline Phosphatase 63 U/L (35-105); Anion Gap 29.1 (5-19); Aspartate Amino Transferase 51 U/L (0-32); Blood Urea Nitrogen 24 mg/dL (8-23); Calcium 7.1 mg/dL (8.5-10.5); Carbon Dioxide 17 mmol/L (22-29); Chloride 89 mmol/L (98-107); Creatinine Clr Calc Pharmacy 36.5481; Globulin 2.4 g/dL (1.3-4.6); Glucose 69 mg/dL (65-115); Lipase 26 U/L (13-60); Magnesium 1.1 mg/dL (1.7-2.3); Osmolality Calculated 278 mOsm/kg (285-295); Sodium 133 mmol/L (136-145); Total Protein 5.1 g/dL (6.6-8.7)
[2025-01-04 22:46] LABS: Lactic Sepsis W/Reflex 2.9 mmol/L (0.5-2.2)
[2025-01-04 22:47] LABS: Potassium 2.1 mmol/L (3.5-5.1)
[2025-01-04] MEDS: SODIUM CHLORIDE 0.9% 2183.19 ML IV (23:08)
[2025-01-04] MEDS: piperacillin-tazobactam 3.375 GM in sodium chloride 0.9% (plus) 50 ML IV (23:19)
[2025-01-04 23:26] LABS: Glucose Urine UA Negative (Normal); Nitrate Urine Negative (Negative); Specific Gravity, Urine 1.025 (1.005-1.030)
[2025-01-04] MEDS: potassium chloride premix 100 ML 25 MEQ IV (23:27)
[2025-01-04 23:31] LABS: Add Urine Microscopic? YES
[2025-01-04] MEDS: magnesium sulfate premix 2 GM/50 ML PIGGYBACK IV (23:34)
[2025-01-05] VITALS (69 sets, daily range): BP systolic 71–183; BP diastolic 31–145; PULSE 70–186; RESP 9–36; O2SAT 89–100; BMI 25.7
[2025-01-05 00:03] LABS: Respiratory Syncytial Virus Ce NEGATIVE (Negative); SARS-CoV-2 PCR NEGATIVE (Negative)
[2025-01-05 00:18] LABS: Reflex Lactate Order REFLEX LACTIC ORDERD
--- NOTE | 2025-01-05 00:35 | PM.HP ---
Providers/Chief Complaint Admitting Physician: Ayla Adrian MD Primary Care Provider: DOMINIC Frost Chief Complaint: weakness, headache History of Present Illness Dianelys Reagan is a 74 year old female with a past medical history of recurrent diverticulitis, complicated by colovesical fistula which required colostomy in September 2024. In November 2024 patient was admitted here for SBO and recurrent fistula for which she required transfer to [place], details from this admission at outside hospital are not currently available. She presents from alf today for altered mental status. When patient first arrived she was confused, disoriented and hypotensive. Blood pressure was 70 systolic. Potassium level earlier today at the alf was at 2.4. Upon arrival she was hypoglycemic with blood sugar in the 60s. She received IV dextrose and at the time of my assessment patient's mental status is improved. She is correctly able to tell me her name, age, date of . Does not recall how she got to the hospital. She reports feeling sick for the last 5 days. Reports that she has been having generalized abdominal discomfort, multiple episodes of vomiting and liquid stool output in her stoma. She reports subjective fever and chills at the alf. She is still somewhat tangential in her conversation therefore difficult to establish reliability of her history. Review of Systems General: Reports: 10 or more systems reviewed and unremarkable except in HPI and below Const: Denies: fever(s), chills or body aches Eyes: Denies: change in vision, blurry vision or photophobia ENMT: Reports: hoarseness; Denies: throat pain, enlarged tonsils, odynophagia or nasal congestion Card: Denies: chest pain, palpitations, irregular heart rhythm, edema, swelling of feet/ankles, lightheadedness, pre-syncope, dyspnea on exertion or orthopnea Resp: Denies: dyspnea, productive cough, non-productive cough, wheezing, stridor, pain on inspiration, change in phlegm color, hemoptysis or chest congestion GI: Denies: abdominal pain, nausea, vomiting, hematemesis, coffee ground emesis, dysphagia, heartburn, diarrhea, constipation, GI cramping, change in stool character, hematochezia or melena : Denies: flank pain, difficulty voiding, dysuria, urinary frequency, urinary urgency, urinary hesitancy or hematuria Musc: Denies: neck pain, back pain, extremity pain, joint swelling, joint warmth or deformity Neuro: Denies: headache(s), numbness in extremities, weakness in extremities, sensory changes, difficulty walking, frequent falls, dizziness, vertigo, behavioral changes, Slurred speech present or seizure-like activity Psych: Denies: anxiety, depression, suicidal ideation or homicidal ideation Endo: Denies: polyuria, polydipsia, tired all the time, cold intolerance or hot flashes Dinesh/Lymph: Denies: easy bruising or easy bleeding Medications/Allergies Home Medications ?Medication ?Instructions ?Recorded ?Confirmed ?Last Taken ?Type apixaban 5 mg tablet (Eliquis) 5 mg PO BID 11/15/24 11/15/24 Unknown History atenolol 25 mg tablet 25 mg PO QAM 11/15/24 11/15/24 Unknown History bethanechol chloride 25 mg tablet 12.5 mg PO TID 11/15/24 11/15/24 Unknown History ondansetron 4 mg disintegrating See Rx Instructions .Route .COMPLEX 11/15/24 11/15/24 11/14/24 History tablet pantoprazole 40 mg tablet,delayed 40 mg PO BID 11/15/24 11/15/24 Unknown History release Allergies Allergy/AdvReac Type Severity Reaction Status Date / Time morphine Allergy Unknown HIVES Verified 08/08/24 11:39 oxycodone Allergy Unknown HIVES Verified 08/08/24 11:39 PFSH Acute PFSH: Medical History Chronic neck and back pain Chronic nausea Encounter for long-term opiate analgesic use Hypertension Irritable bowel syndrome Spondylolisthesis, cervical region Surgical History History of cholecystectomy History of lumbar surgery History of carpal tunnel surgery History of knee replacement S/P rotator cuff repair History of hysterectomy Family History Other Cancer Social History Smoking and tobacco/nicotine status: never used tobacco/nicotine Second hand smoke exposure: No Alcohol intake: never Substance/Drug Use: never Household members: spouse Housing: House Vitals/I&O/Wt Last Vital Signs Temp 97.7 F 01/04/25 21:08 Pulse 89 01/05/25 05:05 Resp 30 H 01/05/25 00:15 BP 114/62 01/05/25 05:05 Pulse Ox 100 01/05/25 05:05 O2 Del Method Room Air 01/05/25 05:02 O2 Flow Rate 2 01/04/25 21:08 01/04/25 01/04/25 01/05/25 14:59 22:59 06:59 Intake Total 2972.315 / 2972.315 Balance 2972.315 / 2972.315 Weight last 48 hrs Weight 72.773 kg Physical Exam Narrative: General: No acute distress, AO x2-3 HEENT: PERRLA, pupils bilaterally equal and reactive, pallors not present Chest: Normal vesicular breath sounds, no added sounds, equal good air entry bilaterally CVS: S1-S2 regular, no murmurs, no tachycardia, no gallops, no rubs Abdomen: Left lower quadrant colostomy in place Neuro: No focal deficits, no facial deformity, AO x2-3, power 5/5 in all limbs Extremities: No edema clubbing or cyanosis Data 01/04/25 22:10 01/04/25 22:10 Micro: Microbiology 01/04/25 22:10 Blood Culture - Preliminary Blood SPECIMEN COLLECTED 01/04/25 22:20 Blood Culture - Preliminary Blood SPECIMEN COLLECTED Other data: Radiology Impressions Abdomen/Pelvis CT 01/04/25 21:36 IMPRESSION: 1. Slightly limited study due to lack of intravenous contrast enhancement. 2. Suggestion of possible fatty liver infiltration. 3. Status post cholecystectomy. No urinary tract obstruction or calculus on either side. Left mid abdomen colostomy without bowel obstruction or parastomal hernia, unchanged. 4. Abdominal pain is difficult to explain. No evidence of diverticulitis or small bowel obstruction. Appendix is not visualized although no evidence of appendicitis. Chest X-Ray 01/04/25 22:03 IMPRESSION: Right internal jugular central venous catheter with tip in the cavoatrial junction region without arcelia evidence of pneumothorax. Laboratory Results WBC 6.51 10^3/uL (3.29-11.43) 01/04/25 22:10 RBC 3.97 10^6/uL (3.85-5.65) 01/04/25 22:10 Hgb 10.30 g/dL (11.27-16.99) L 01/04/25 22:10 Hct 29.8 % (36-47) L 01/04/25 22:10 MCV 75.1 fl (85-98) L 01/04/25 22:10 MCH 25.9 pg (27-33) L 01/04/25 22:10 MCHC 34.6 g/dL (30-55) 01/04/25 22:10 RDW 17.6 % (12.1-15.1) H 01/04/25 22:10 Plt Count 216 10^3/cmm (157-399) 01/04/25 22:10 MPV 9.7 fL (7.4-10.4) 01/04/25 22:10 Neut % (Auto) 68.6 % 01/04/25 22:10 Lymph % (Auto) 19.8 % 01/04/25 22:10 Taylor % (Auto) 10.4 % 01/04/25 22:10 Eos % (Auto) 0.2 % 01/04/25 22:10 Baso % (Auto) 0.5 % 01/04/25 22:10 Neut # (Auto) 4.47 10^3/uL (1.8-7.7) 01/04/25 22:10 Lymph # (Auto) 1.3 10^3/uL (0.8-4.8) 01/04/25 22:10 Taylor # (Auto) 0.7 10^3/uL (0.2-0.9) 01/04/25 22:10 Eos # (Auto) 0.0 10^3/uL (0.0-0.8) 01/04/25 22:10 Baso # (Auto) 0.0 10^3/uL (0.0-0.1) 01/04/25 22:10 Nucleated RBC % (auto) 0 % 01/04/25 22:10 Nucleated RBCs # 0.0 /100WBC 01/04/25 22:10 Specimen Type Arterial 01/04/25 21:46 Sample Site Brachial, left 01/04/25 21:46 ABG pH 7.74 (7.35-7.45) H* 01/04/25 21:46 ABG pCO2 14.5 mmHg (35-45) L* 01/04/25 21:46 ABG pO2 121.0 mmHg (80.0-100.0) H 01/04/25 21:46 ABG HCO3 19.6 mmol/L (22-26) L 01/04/25 21:46 ABG O2 Saturation > 99.1 01/04/25 21:46 ABG Base Excess 2.3 mmol/L (-2.0-2.0) H 01/04/25 21:46 Sergio Test N/a 01/04/25 21:46 A-a O2 Gradient 0.9 mmHg (5-10) L 01/04/25 21:46 Hematocrit 33.5 % (37-47) L 01/04/25 21:46 Hgb O2 Saturation 98.2 % (95-100) 01/04/25 21:46 Carboxyhemoglobin 0.6 %THgb (0.4-20.1) 01/04/25 21:46 Methemoglobin 0.9 % (0.4-1.5) 01/04/25 21:46 Total Hemoglobin 10.9 g/dL (12-16) L 01/04/25 21:46 Sodium 130.0 mmol/L (131-143) L 01/04/25 21:46 Potassium 2.0 mmol/L (3.5-5.0) L 01/04/25 21:46 Glucose 71.0 mg/dL (70-115) 01/04/25 21:46 Ionized Calcium 0.9 mmol/L (1.1-1.4) L 01/04/25 21:46 O2 Delivery Device Room air 01/04/25 21:46 Ruby On Rails Web Developer ID [email or web address] 01/04/25 21:46 Sodium 133 mmol/L (136-145) L 01/04/25 22:10 Potassium 2.1 mmol/L (3.5-5.1) L* 01/04/25 22:10 Chloride 89 mmol/L (98-107) L 01/04/25 22:10 Carbon Dioxide 17 mmol/L (22-29) L 01/04/25 22:10 Anion Gap 29.1 (5-19) H 01/04/25 22:10 BUN 24 mg/dL (8-23) H 01/04/25 22:10 Creatinine 1.4 mg/dL (0.5-0.9) H 01/04/25 22:10 GFR Calculation Not Reportable 01/04/25 22:10 Glucose 69 mg/dL (65-115) 01/04/25 22:10 POC Glucose 186 mg/dL (70-110) H 01/05/25 03:35 Calculated Osmolality 278 mOsm/kg (285-295) L 01/04/25 22:10 Lactic Acid 2.9 mmol/L (0.5-2.2) H 01/04/25 22:10 Lactic Acid (Sepsis) 3.0 mmol/L (0.5-2.2) H 01/05/25 01:28 Calcium 7.1 mg/dL (8.5-10.5) L 01/04/25 22:10 Magnesium 1.1 mg/dL (1.7-2.3) L 01/04/25 22:10 Total Bilirubin 0.6 mg/dL (0.15-1.2) 01/04/25 22:10 AST 51 U/L (0-32) H 01/04/25 22:10 ALT 17 U/L (0-33) 01/04/25 22:10 Alkaline Phosphatase 63 U/L (35-105) 01/04/25 22:10 Creatine Kinase 90 U/L (26-192) 01/04/25 22:10 Total Protein 5.1 g/dL (6.6-8.7) L 01/04/25 22:10 Albumin 2.7 g/dL (3.5-5.2) L 01/04/25 22:10 Globulin 2.4 g/dL (1.3-4.6) 01/04/25 22:10 Lipase 26 U/L (13-60) 01/04/25 22:10 Urine Color Dark yellow (Yellow) A 01/04/25 23:00 Urine Appearance Clear (CLEAR) 01/04/25 23:00 Urine pH 5.0 (5-7) 01/04/25 23:00 Ur Specific [place] 1.025 (1.005-1.030) 01/04/25 23:00 Urine Protein 1+ (Negative) A 01/04/25 23:00 Urine Glucose (UA) Negative (Normal) 01/04/25 23:00 Urine Ketones 1+ (Negative) H 01/04/25 23:00 Urine Blood Negative (Negative) 01/04/25 23:00 Urine Nitrate Negative (Negative) 01/04/25 23:00 Urine Bilirubin Negative (Negative) 01/04/25 23:00 Urine Urobilinogen 1.0 mg/dL (Negative) 01/04/25 23:00 Ur Leukocyte Esterase Negative (Negative) 01/04/25 23:00 Urine RBC 0-2 /hpf (0-2) 01/04/25 23:00 Urine WBC 0-5 /hpf (0-5) 01/04/25 23:00 Ur Squamous Epith Cells 0-5 /hpf (0-5) 01/04/25 23:00 Amorphous Sediment Not Reportable 01/04/25 23:00 Urine Bacteria None seen /hpf (NONE) 01/04/25 23:00 Hyaline Casts 23.57 /lpf 01/04/25 23:00 Influenza A (PCR) Negative (Negative) 01/04/25 23:10 Influenza Type B (PCR) Negative (Negative) 01/04/25 23:10 RSV (PCR) Negative (Negative) 01/04/25 23:10 SARS-CoV-2 (PCR) Negative (Negative) 01/04/25 23:10 A&P Assessment and plan 1. Hypoglycemia: 2. Hypokalemia: 3. Atrial fibrillation/flutter: 4. Hypotension: 5. INDU (acute kidney injury): Plan: 74-year-old lady with a past medical history of colovesical fistula, status post colostomy, presenting to the hospital with 4 to 5 days of recurrent nausea vomiting, abdominal discomfort and loose stool output. Significant abnormalities upon admission include hypotension, hypokalemia, metabolic alkalosis, hypoglycemia, suspect all related to GI losses with reported history. Patient does appear to be clinically dehydrated. Dry parched mucous membranes and dry wrinkled skin. Capillary refill is currently normal. For the hypoglycemia, patient has received 10% dextrose bolus, ordered further for glucagon 1 mg IM, maintenance D10 fluids at 75 cc an hour. Continue Accu-Cheks every hour to ensure resolution of hypoglycemia. Check TSH. Or hypokalemia, currently getting repleted with IV potassium. Repeat K with a.m. labs in 6 hours. No current changes on EKG. Hypomagnesemia, currently getting repleted with IV magnesium. Repeat magnesium with a.m. labs. Hypotension suspect related to GI losses. She has received 2 L IV fluid bolus at this point. Additionally started on maintenance fluids D10 at 75 cc an hour. Repeat electrolytes with a.m. labs. Start Levophed and titrate to maintain MAP greater than 65. Hemoglobin today is noted to be at 10.3. Previously at 11.9. stoma output without any obvious blood. CT of the abdomen and pelvis without any intraperitoneal bleeding. Closely monitor for any drop. Suspect hypotension to be related to GI losses and dehydration however also with elevated lactate, will rule out any underlying infection. Blood cultures taken and pending. UA not suggestive of UTI. Chest x-ray without any infiltrates. CT of the abdomen and pelvis without any urinary tract obstruction or calculus. Left mid abdomen colostomy without signs of bowel obstruction or hernia. No evidence of diverticulitis. Will maintain empiric piperacillin/tazobactam while undergoing infectious evaluation. Check C. difficile PCR and toxin from loose stoma output. History of transient A-fib on last admission. Currently sinus rhythm at 91 bpm. Atenolol is on hold at this time as patient is on Levophed. INDU again suspect related to dehydration, hypotension, volume loss. Creatinine at 1.4. Cohen catheter inserted, no residual urine encountered. Accurate output charting and serial creatinine to be obtained. DVT prophylaxis: Patient is chronically on Eliquis which will be held for now pending hemoglobin trend. Instead would prefer to use Lovenox 1 mg/kg subcutaneous every 12 hours Full code PDMP PDMP Reviewed: Not Reviewed Attestations Medical Necessity Statement*: Greater than 2 midnight stay is anticipated Critical Care Time: The high probability of a clinically significant, sudden or life threatening deterioration of the patient's [cardiovascular/hemodynamic, GI, ID] system(s) required my full and direct attention, intervention and personal management. The critical care time is as shown. This time is in addition to time spent performing any reported procedures but includes the following: [x] Data and vital sign review and interpretation [x] Patient assessment, examination and intervention [x] Documentation [x] Medication orders and management Critical Care Time (min): 50 Coding Level of Care Code Critical Care >/= 30 minutes Diagnoses Hypoglycemia E16.2 Hypokalemia E87.6 Atrial fibrillation/flutter I48.91; I48.92 Hypotension I95.9 INDU (acute kidney injury) N17.9
[2025-01-05] MEDS: norepinephrine 4 MG/250 ML BAG 30 MG IV (00:49)
[2025-01-05] MEDS: glucagon 1 mg/mL KIT 1 mL IM (00:54)
[2025-01-05 01:49] LABS: Lactic Acid level (Lactate) 3.0 mmol/L (0.5-2.2)
--- NOTE | 2025-01-05 04:45 | ECG_ITS ---
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 Measurements Intervals [place] Rate: 91 P: -6 [place]: 201 QRS: -43 QRSD: 83 T: 89 QT: 359 QTc: 443 Interpretive Statements SINUS RHYTHM LEFT AXIS DEVIATION [QRS AXIS < -30] LOW QRS VOLTAGE IN PRECORDIAL LEADS [QRS DEFLECTION < 1.0 mV IN CHEST LEADS] PATTERN CONSISTENT WITH PULMONARY DISEASE JUNCTIONAL ST DEPRESSION, CONSIDER NORMAL VARIANT [0.1+ mV JUNCTIONAL DEPRESSION] Compared to ECG 01/04/2025 21:13:57 ST (T wave) deviation now present Electronically Signed On 01-06-2025 20:45:20 CDT by Merry Lopez M.D. [id number]
[2025-01-05 06:24] LABS: Hematocrit 31.9 % (36-47); Hemoglobin 11.20 g/dL (11.27-16.99); Mean Corpuscular HGB Conc 35.1 g/dL (30-55); Mean Corpuscular Hemoglobin 26.1 pg (27-33); Mean Corpuscular Volume 74.4 fl (85-98); Nucleated Red Blood Cells % 0 %; Platelet Count 252 10^3/cmm (157-399); Red Blood Count 4.29 10^6/uL (3.85-5.65); White Blood Count 10.28 10^3/uL (3.29-11.43)
[2025-01-05 06:50] LABS: Alanine Aminotransferase 16 U/L (0-33); Albumin Level 2.6 g/dL (3.5-5.2); Alkaline Phosphatase 65 U/L (35-105); Anion Gap 24.3 (5-19); Aspartate Amino Transferase 43 U/L (0-32); Blood Urea Nitrogen 19 mg/dL (8-23); Calcium 6.9 mg/dL (8.5-10.5); Carbon Dioxide 17 mmol/L (22-29); Chloride 92 mmol/L (98-107); Creatinine Clr Calc Pharmacy 39.2892; Globulin 2.9 g/dL (1.3-4.6); Glucose 165 mg/dL (65-115); Magnesium 1.6 mg/dL (1.7-2.3); Osmolality Calculated 278 mOsm/kg (285-295); Sodium 131 mmol/L (136-145); Thyroid Stimulating Hormone 2.17 uIU/mL (0.27-4.20); Total Protein 5.5 g/dL (6.6-8.7)
[2025-01-05 06:53] LABS: Lactate (Lactic Acid level) 4.4 mmol/L (0.5-2.2); Potassium 2.3 mmol/L (3.5-5.1)
[2025-01-05] MEDS: ondansetron 2 mg/ML SDV 2 mL 4 MG IVP (07:53)
[2025-01-05] MEDS: piperacillin-tazobactam 3.375 GM in sodium chloride 0.9% (plus) 50 ML IV ×3 (07:54→21:44)
[2025-01-05] MEDS: norepinephrine 4 MG/250 ML BAG 22.5 MG IV (08:09)
[2025-01-05] MEDS: magnesium sulfate premix 2 GM/50 ML PIGGYBACK IV (09:38)
[2025-01-05] MEDS: lidocaine 1% 5 ML in potassium chloride premix 100 ML 26.25 ML IV ×4 (09:39→23:48)
[2025-01-05] MEDS: pantoprazole 40 mg SDV IVP ×2 (09:40→20:48)
[2025-01-05] MEDS: dextrose 5%-ns + KCl 40 40 MEQ/1,000 ML BAG 100 MEQ IV ×2 (09:55→20:07)
--- NOTE | 2025-01-05 11:03 | PC.NUTR ---
If TPN medically necessary, recommend beginning with 23mls/hr, increasing 20mls Q4-8H until goal rate of 83mls/hr reached. Also included: standard electrolytes, 10mls MV/day and 20gm/100mls fat emulsion twice weekly.
--- NOTE | 2025-01-05 11:14 | PC.PHAR ---
Spoke to Nurse at [facility] and she stated that Patient was taking Eliquis , but The Doctor put in a stop order after 10 am 01/04/25 .Patient had taken her Morning dose before it was stopped .
[2025-01-05] MEDS: sucralfate 1 gm/10 mL Oral Liq UDC PO (11:24)
[2025-01-05] MEDS: albumin 25 G/100 ML BAG 60 G IV ×2 (11:24→17:01)
[2025-01-05 14:48] LABS: Iron 157 ug/dL (37-145)
[2025-01-05 15:04] LABS: Procalcitonin 0.46 ng/mL (0-0.5); Vitamin B12 1261 pg/mL (232-1245)
[2025-01-05 15:11] LABS: Total Iron Binding Capacity 174 mcg/dl; Unsaturated Iron Binding < 17 ug/dL (112-347)
[2025-01-05 15:41] LABS: Estmated Average Glucose 97; Hemoglobin A1C 5.0 % (4.0-6.0)
[2025-01-05 15:41] LABS: Anion Gap 14.7 (5-19); Blood Urea Nitrogen 17 mg/dL (8-23); Calcium 6.8 mg/dL (8.5-10.5); Carbon Dioxide 22 mmol/L (22-29); Chloride 96 mmol/L (98-107); Creatinine Clr Calc Pharmacy 46.4327; Glucose 160 mg/dL (65-115); Osmolality Calculated 275 mOsm/kg (285-295); Sodium 130 mmol/L (136-145)
[2025-01-05 15:46] LABS: Potassium 2.7 mmol/L (3.5-5.1)
--- NOTE | 2025-01-05 16:47 | PC.NURSE ---
not enough stool in ostomy. Unable to collect stool sample.
[2025-01-05] MEDS: norepinephrine 4 MG/250 ML BAG 15 MG IV (20:48)
[2025-01-06] VITALS (43 sets, daily range): BP systolic 82–127; BP diastolic 53–75; PULSE 69–132; RESP 14–28; TEMP 36.8–37.3; O2SAT 77–100
--- NOTE | 2025-01-06 01:24 | ECG_ITS ---
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 Measurements Intervals [place] Rate: 82 P: -17 CT: 195 QRS: -41 QRSD: 79 T: -9 QT: 371 QTc: 433 Interpretive Statements SINUS RHYTHM WITH SINUS ARRHYTHMIA LEFT AXIS DEVIATION [QRS AXIS < -30] LOW QRS VOLTAGE IN PRECORDIAL LEADS [QRS DEFLECTION < 1.0 mV IN CHEST LEADS] ANTEROSEPTAL MYOCARDIAL INFARCTION , OF INDETERMINATE AGE [40+ ms Q WAVE IN V1-V4] Compared to ECG 01/05/2025 04:45:26 Myocardial infarct finding now present ST (T wave) deviation no longer present Electronically Signed On 01-06-2025 09:10:36 CDT by Nabeel Snell M.D. [email or web address]
[2025-01-06] MEDS: ondansetron 2 mg/ML SDV 2 mL 4 MG IVP ×2 (01:26→08:10)
[2025-01-06] MEDS: acetaminophen 1,000 MG/100 ML PIGGYBACK 400 MG IV (01:53)
--- NOTE | 2025-01-06 02:02 | PC.NURSE ---
Pt notified this nurse that she was experiencing chest pain 12/11. Dr. Adrian called and EKG/troponin series ordered.
[2025-01-06 03:11] LABS: Hematocrit 28.4 % (36-47); Hemoglobin 9.20 g/dL (11.27-16.99); Mean Corpuscular HGB Conc 32.4 g/dL (30-55); Mean Corpuscular Hemoglobin 26.0 pg (27-33); Mean Corpuscular Volume 80.2 fl (85-98); Nucleated Red Blood Cells % 0 %; Platelet Count 162 10^3/cmm (157-399); Red Blood Count 3.54 10^6/uL (3.85-5.65); White Blood Count 5.66 10^3/uL (3.29-11.43)
[2025-01-06 03:28] LABS: Alanine Aminotransferase 10 U/L (0-33); Albumin Level 3.0 g/dL (3.5-5.2); Alkaline Phosphatase 46 U/L (35-105); Anion Gap 17.1 (5-19); Aspartate Amino Transferase 27 U/L (0-32); Blood Urea Nitrogen 14 mg/dL (8-23); Calcium 7.1 mg/dL (8.5-10.5); Carbon Dioxide 20 mmol/L (22-29); Chloride 107 mmol/L (98-107); Creatinine Clr Calc Pharmacy 51.0759; Globulin 1.8 g/dL (1.3-4.6); Glucose 138 mg/dL (65-115); Lactic Sepsis W/Reflex 2.9 mmol/L (0.5-2.2); Magnesium 2.0 mg/dL (1.7-2.3); Osmolality Calculated 291 mOsm/kg (285-295); Potassium 5.1 mmol/L (3.5-5.1); Sodium 139 mmol/L (136-145); Total Protein 4.8 g/dL (6.6-8.7)
[2025-01-06] MEDS: lidocaine 1% 5 ML in potassium chloride premix 100 ML 26.25 ML IV (03:32)
[2025-01-06 03:33] LABS: Troponin(5th) Baseline 164 ng/L (0-10)
--- NOTE | 2025-01-06 03:37 | ECG_ITS ---
[facility] Date: 2025-01-06 Pat Name: Dianelys Reagan Department: Room: [facility] Gender: Female Relay Tester: : 1950 Requested By: Ayla Adrian Order Number: [id number] Willard MD: Nabeel Snell M.D. Measurements Intervals [place] Rate: 74 P: 35 [place]: 201 QRS: -39 QRSD: 86 T: 113 QT: 389 QTc: 432 Interpretive Statements SINUS RHYTHM LEFT AXIS DEVIATION [QRS AXIS < -30] LOW QRS VOLTAGE IN PRECORDIAL LEADS [QRS DEFLECTION < 1.0 mV IN CHEST LEADS] ANTEROSEPTAL MYOCARDIAL INFARCTION , OF INDETERMINATE AGE [40+ ms Q WAVE IN V1-V4] Compared to ECG 01/06/2025 01:24:00 Sinus arrhythmia no longer present Myocardial infarct finding still present Electronically Signed On 01-06-2025 09:13:16 CDT by Nabeel Snell M.D. [id number]
--- NOTE | 2025-01-06 04:00 | CT_ITS ---
WS: [id number] CTA CHEST WITH CT ABDOMEN AND PELVIS. HISTORY: Large output from colostomy. Headache. Colon surgery. TECHNIQUE: CT angiogram is performed through the chest. Additional imaging is performed through the abdomen and pelvis with IV contrast. Sagittal and coronal reformats have been submitted. MIP imaging also reviewed. All CT scans at [facility] use at least one of these dose optimization techniques: automated exposure control; mA and/or kV adjustment per patient size (includes targeted exams where dose is matched to clinical indication); or iterative reconstruction. Contrast: Omnipaque 350; 95 cc IV. DLP: 1122.30 mGy.cm COMPARISON: 01/04/2025, 11/15/2024 Chest CTA: Good opacification of the pulmonary arteries. No pulmonary embolism. Normal size pulmonary artery. No RIGHT heart strain. Normal size thoracic aorta with mild atherosclerotic plaque. Small bilateral pleural effusions are new since 01/04/2025. No pneumonia. Mild compressive atelectasis at the lung bases. LEFT heart is slightly enlarged. No pericardial effusion. No pathologically enlarged lymph nodes. RIGHT IJ line is present. Abdomen CT: Normal size liver. Focal fatty sparing along the falciform ligament. Prior cholecystectomy. No intrahepatic duct dilatation. Mild periportal edema. Normal portal vein. Normal spleen. Diffuse pancreatic atrophy. Negative adrenal glands. Kidneys are both enhancing normally. No obstruction. Minimal atherosclerosis aorta. Stomach is not distended. No GI tract obstruction. No colon obstruction. Patient is status post subtotal colectomy. RIGHT lower quadrant ileostomy appears to be patent. There is no obstruction. There is soft tissue anasarca and mild diffuse mesenteric edema. No ascites or adenopathy. Pelvic CT: Surgical sutures from subtotal colectomy noted near the rectosigmoid junction. There is no adenopathy or free fluid in the pelvis. Cohen catheter present in a nondistended bladder. No destructive bone lesions. CT/CT angio chest w abd pel w con IMPRESSION: 1. No pulmonary embolism. 2. New small bilateral pleural effusions. 3. New soft tissue anasarca and mesenteric edema. No ascites. 4. No pneumonia. 5. No renal obstruction. 6. Subtotal colectomy. 7. RIGHT lower quadrant ileostomy. No obstruction at the ileostomy site. Trena l small bowel.
--- NOTE | 2025-01-06 04:09 | PC.NURSE ---
This nurse unable to administer albumin at scheduled time. This nurse found there was not an updated blood product consent signed. Pt unable to sign due to confusion. This nurse attempted to call family members listed in pt chart. All 3 family members were called 3 different times over the course of 2 hours. There was no answer and all voicemails were generic. Dr. Adrian notified and stated to emergently sign consent and give albumin. Two nurses verified and albumin given (see MAR)
[2025-01-06] MEDS: albumin 25 G/100 ML BAG 60 G IV ×2 (04:12→10:04)
[2025-01-06] MEDS: nitroglycerin 1 gm/inch oint Pkt 0.5 INCH TOPICAL (04:29)
[2025-01-06] MEDS: dextrose 5%-ns + KCl 40 40 MEQ/1,000 ML BAG 100 MEQ IV (04:34)
[2025-01-06 04:53] LABS: Reflex Lactate Order REFLEX LACTIC ORDERD
[2025-01-06] MEDS: piperacillin-tazobactam 3.375 GM in sodium chloride 0.9% (plus) 50 ML IV ×3 (05:34→22:25)
[2025-01-06 05:48] LABS: Troponin 5 2HR Delta -16.1 ABS# (0-10)
[2025-01-06 05:49] LABS: Troponin 5 2HR 147.9 ng/L (0-10)
[2025-01-06 06:30] LABS: Lactic Acid level (Lactate) 3.9 mmol/L (0.5-2.2)
--- NOTE | 2025-01-06 07:37 | ECG_ITS ---
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 Measurements Intervals [place] Rate: 77 P: 48 [place]: 225 QRS: -54 QRSD: 114 T: 106 QT: 416 QTc: 471 Interpretive Statements SINUS RHYTHM WITH FIRST DEGREE AV BLOCK LEFT AXIS DEVIATION [QRS AXIS < -30] LOW QRS VOLTAGE IN PRECORDIAL LEADS [QRS DEFLECTION < 1.0 mV IN CHEST LEADS] INCOMPLETE RIGHT BUNDLE BRANCH BLOCK [90+ ms QRS DURATION, TERMINAL R IN V1/V2, 40+ ms S IN I/aVL/V4/V5/V6] POSSIBLE ANTERIOR MYOCARDIAL INFARCTION , OF INDETERMINATE AGE [30 ms Q WAVE IN V3/V4, OR R < 0.2 mV IN V4] Compared to ECG 01/06/2025 03:31:01 First degree AV block now present Incomplete right bundle-branch block now present Myocardial infarct finding still present Electronically Signed On 01-06-2025 20:31:57 CDT by Merry Lopez M.D. [id number]
[2025-01-06] MEDS: sucralfate 1 gm/10 mL Oral Liq UDC PO ×4 (08:07→22:26)
[2025-01-06] MEDS: pantoprazole 40 mg SDV IVP ×2 (09:20→22:26)
[2025-01-06] MEDS: iohexol 350 mg/mL 500 mL Btl (per mL) IV (09:48)
[2025-01-06 09:52] LABS: Troponin 5 6HR 130.2 ng/L (0-10); Troponin 5 6HR Delta -33.8 ng/L (0-12)
[2025-01-06 10:15] LABS: C.Diff PCR (Lab) POSITIVE (Negative)
[2025-01-06 10:24] LABS: Clostridioides Difficile Toxin POSITIVE (Negative)
[2025-01-06] MEDS: metoclopramide 5 mg/mL SDV 2 mL IVP ×3 (11:38→22:26)
[2025-01-06] MEDS: FAMOTIDINE IV (11:45)
[2025-01-06] MEDS: AA DEX IV (11:45)
[2025-01-06] MEDS: LYTES IV (11:45)
[2025-01-06] MEDS: MULTIVITAMIN IV (11:45)
--- NOTE | 2025-01-06 13:02 | PC.SOCIAL ---
*IMM* Important message from medicare gave to patient, initialed, dated and placed in chart.
--- NOTE | 2025-01-06 13:42 | PM.PN ---
Subjective Subjective: Overnight patient had episode of chest pain. Denies any chest pain currently. Complaining of nausea. Patient's care discussed detail with patient's nurse taking care of her at [facility]. As per her patient has been having UTI since 12/25 for which she has finished a course of Levaquin. Since then she has been getting weaker and more tired. Workup showed hypokalemia and she was sent to the ER. Patient has not been working well with physical therapy, has had poor oral intake for last 1 week. Vitals/I&O/Wt Last Vital Signs Temp 97.7 F 01/04/25 21:08 Pulse 72 01/06/25 08:00 Resp 22 H 01/06/25 04:00 BP 91/57 01/06/25 04:00 Pulse Ox 85 L 01/06/25 04:00 O2 Del Method Room Air 01/05/25 05:54 O2 Flow Rate 2 01/04/25 21:08 01/05/25 01/06/25 01/06/25 22:59 06:59 14:59 Intake Total 2660.0 / 2963.75 1375.75 / 4339.50 300 / 300 Output Total 600 / 600 15 / 15 Balance 2060.0 / 2363.75 1375.75 / 3739.50 285 / 285 Weight last 48 hrs Weight 72.484 kg Weight 72.773 kg Physical Exam Narrative: General: No acute distress, AO x3, chronically sick appearing, dehydrated HEENT: PERRLA, pupils bilaterally equal and reactive Chest: Normal vesicular breath sounds, no added sounds, equal good air entry bilaterally CVS: S1-S2 regular, no murmurs, no tachycardia, no gallops, no rubs Abdomen: Soft, generalized tenderness more so in right middle and lower quadrant, colostomy in place, no organomegaly, bowel sounds present Neuro: No focal deficits, no facial deformity, AO x3, power 5/5 in all limbs Data 01/06/25 02:57 01/06/25 02:57 Micro: Microbiology 01/04/25 22:10 Blood Culture - Preliminary Blood NEGATIVE TO DATE 01/04/25 22:20 Blood Culture - Preliminary Blood NEGATIVE TO DATE A&P Assessment and plan 1. Sepsis: 2. Shock: 3. Chronic nausea: 4. Dehydration: 5. Hypoglycemia: 6. Hypokalemia: 7. Atrial fibrillation/flutter: 8. INDU (acute kidney injury): 9. Hypomagnesemia: 10. Lactic acidosis: 11. Status post colostomy: 12. Chest pain: 13. Elevated troponin: 14. C. difficile colitis: Plan: 74-year-old lady with a past medical history of colovesical fistula, status post colostomy, presenting to the hospital with 4 to 5 days of recurrent nausea vomiting, abdominal discomfort and loose stool output. Significant abnormalities upon admission include hypotension, hypokalemia, metabolic alkalosis, hypoglycemia, suspect all related to GI losses with reported history. Patient does appear to be clinically dehydrated. Dry parched mucous membranes and dry wrinkled skin. Capillary refill is currently normal. Sepsis: SIRS: Tachycardic, Febrile, Leukocytosis Source: Colitis End organ damage: Acute kidney injury Lactic acid elevated Patient did receive full 30 mL/kg BW. Switch fluid to normal saline at 50 cc/h. Adding TPN. Overall fluid at 75 cc/h. Monitor blood pressures. Keep mean artery pressure 65 mmHg. Blood culture, urine culture, MRSA swab, procalcitonin, urine Legionella, bacterial antigen. History of recurrent UTIs.Continue with IV Zosyn for now. De-escalate antibiotics as per culture results. Present on admission. Shock: Most likely in setting of dehydration along with sepsis. Wean Levophed keeping mean pressure 65. Continue with IV albumin for now. Cheetah examination shows patient not being fluid responsive. C. difficile colitis: Repeat CT on pelvis with contrast to rule out further fistula. Add fidaxomicin 200 mg twice daily. Contact precautions. Dehydration/hypokalemia: Improving. Hypokalemia resolved. Switch fluids to NS at 50 cc/h. Repeat BMP in afternoon. Replace magnesium. Check phosphorus. Will replace accordingly. Nausea/vomiting: Chronic. Continue Zofran as needed. Add Reglan, scopolamine. Advance diet as per speech evaluation. Hypoglycemia: Most likely in setting of sepsis. Resolved. Malnutrition: Associated with dehydration, hypoalbuminemia, multiple electrolyte abnormalities. Start on TPN for now. Chest pain: Elevated troponin: Denies any active chest pain for now. Appreciate troponin cycled. Delta negative. Check echocardiogram. Patient already on full dose Lovenox. Depending on echocardiogram if showing regional wall motion abnormality patient would benefit with ACS workup once more. Elevated lactate: Continue to monitor. Most likely in setting of severe infection along with malnutrition. Atrial fibrillation: Currently rate controlled. Monitor. Continue with Lovenox as above for anticoagulation. CODE STATUS: Discussed detail with the patient. DNR/DNI. Patient is also DNR/DNI as per [facility] paperwork. NPO. TPN. Protonix for PUD prophylaxis Full dose Lovenox will be sufficient for DVT prophylaxis Physical therapy. PDMP PDMP Reviewed: Not Reviewed Attestations Medical Necessity Statement*: Requires further hospitalization for management of shock in setting of C. difficile, sepsis, hypokalemia, dehydration, malnutrition while ACS is ruled out Critical Care Time: The high probability of a clinically significant, sudden or life threatening deterioration of the patient's [cardiac, renal, GI] system(s) required my full and direct attention, intervention and personal management. The critical care time is as shown. This time is in addition to time spent performing any reported procedures but includes the following: [x] Data and vital sign review and interpretation [x] Patient assessment, examination and intervention [x] Documentation [x] Medication orders and management Critical Care Time (min): 90 Coding Level of Care Code Critical Care >/= 30 minutes Critical care time (in minutes): 90 The high probability of a clinically significant, sudden or life threatening deterioration, as referenced in this documentation, required my full and direct attention, intervention and personal management. The critical care time shown is in addition to time spent performing any reported separately billable procedures and includes the following: [x] Data and vital sign review and interpretation [x] Patient assessment, examination and intervention [x] Medication orders and management [x] Patient/Family updates as able [x] Care Coordination and Documentation. Diagnoses Sepsis A41.9 Shock R57.9 Chronic nausea R11.0 Dehydration E86.0 Hypoglycemia E16.2 Hypokalemia E87.6 Atrial fibrillation/flutter I48.91; I48.92 INDU (acute kidney injury) N17.9 Hypomagnesemia E83.42 Lactic acidosis E87.20 Status post colostomy Z93.3 Chest pain R07.9 Elevated troponin R79.89 C. difficile colitis A04.72
[2025-01-06] MEDS: norepinephrine 4 MG/250 ML BAG 11.25 MG IV (17:54)
--- NOTE | 2025-01-06 18:43 | PC.NURSE ---
Shift summary: Pt rested in bed throughout the shift. She reported nausea this am, it was not relived with Zofran. She did have some bile green small amount of vomitus also. Reglan and Scopolamine patch started. No further reports of nausea. No vomiting noted. After the busy morning she spent the rest of the shift resting with her eyes closed. Wakening for PO medications. CTA of chest and CT of abdomen completed this am. Levophed continues to infuse at 3mcg/min. TPN and fat emulsions are now infusing. She reported abdominal pain after US that palpated her abdomen, no further reports. Hematuria noted this am, it has progressively cleared this shift now dark yellow with a tinge of pink. 575ml of urine output. Pt tested positive for C-diff this am put on contact precautions immediately. Stomach dark red. Colostomy intact. Scant output in colostomy noted. Pt does has ulcer/pressure injury on her bottom, she has refused to turn several times today stating she was comfortable in the position she was in.
--- NOTE | 2025-01-06 20:24 | PC.NURSE ---
TPN going at 11 on arrival. Increased to 22.
[2025-01-07] VITALS (74 sets, daily range): BP systolic 60–137; BP diastolic 27–97; PULSE 62–173; RESP 8–26; TEMP 36.2–36.5; O2SAT 80–100
[2025-01-07] MEDS: metoclopramide 5 mg/mL SDV 2 mL IVP ×4 (04:12→22:11)
[2025-01-07 04:19] LABS: Hematocrit 27.9 % (36-47); Hemoglobin 9.20 g/dL (11.27-16.99); Mean Corpuscular HGB Conc 33.0 g/dL (30-55); Mean Corpuscular Hemoglobin 26.6 pg (27-33); Mean Corpuscular Volume 80.6 fl (85-98); Nucleated Red Blood Cells % 0 %; Platelet Count 177 10^3/cmm (157-399); Red Blood Count 3.46 10^6/uL (3.85-5.65); White Blood Count 8.22 10^3/uL (3.29-11.43)
[2025-01-07 04:36] LABS: Magnesium 1.8 mg/dL (1.7-2.3)
[2025-01-07 04:42] LABS: Alanine Aminotransferase 9 U/L (0-33); Albumin Level 3.2 g/dL (3.5-5.2); Alkaline Phosphatase 49 U/L (35-105); Anion Gap 14.4 (5-19); Aspartate Amino Transferase 21 U/L (0-32); Blood Urea Nitrogen 12 mg/dL (8-23); Calcium 7.4 mg/dL (8.5-10.5); Carbon Dioxide 18 mmol/L (22-29); Chloride 112 mmol/L (98-107); Creatinine Clr Calc Pharmacy 63.8449; Globulin 1.5 g/dL (1.3-4.6); Glucose 133 mg/dL (65-115); Osmolality Calculated 290 mOsm/kg (285-295); Potassium 5.4 mmol/L (3.5-5.1); Sodium 139 mmol/L (136-145); Total Protein 4.7 g/dL (6.6-8.7)
[2025-01-07] MEDS: piperacillin-tazobactam 3.375 GM in sodium chloride 0.9% (plus) 50 ML IV (05:57)
[2025-01-07] MEDS: sucralfate 1 gm/10 mL Oral Liq UDC PO ×4 (05:59→20:19)
[2025-01-07] MEDS: metroNIDAZOLE IV 500 MG/100 ML PREMIX 100 MG IV ×2 (09:44→17:29)
[2025-01-07] MEDS: pantoprazole 40 mg SDV IVP ×2 (09:45→20:19)
--- NOTE | 2025-01-07 10:45 | PC.NURSE ---
SBP's grater than 110, MAP 75 or greater, reduced levophed to 2mcg/min. Bed bath and linen change provided. Pt repositioned on her left side. Pt now hypertensive. Second recheck:. Levophed increased to 4 mcg/min.
[2025-01-07] MEDS: albumin 25 G/100 ML BAG 60 G IV ×2 (12:39→19:48)
--- NOTE | 2025-01-07 12:51 | P.PN_ITS ---
Subjective 2 Subjective: Overnight patient has remained hemodynamically stable. Was on Levophed of 3. Today morning after bath and patient being in left lateral position her mean arterial pressure dropped down to 55. Patient is asymptomatic. Currently she is on Levophed of 7. States still having abdominal pain but better than yesterday. Nausea improved as well. Having better ostomy output as per nursing staff than yesterday. Vitals/I&O/Wt Last Vital Signs Temp 97.2 F L 01/07/25 08:00 Pulse 74 01/07/25 11:15 Resp 19 H 01/07/25 11:15 BP 71/45 01/07/25 11:15 Pulse Ox 98 01/07/25 11:15 O2 Del Method Room Air 01/07/25 11:15 O2 Flow Rate 2 01/04/25 21:08 01/06/25 01/07/25 01/07/25 22:59 06:59 14:59 Intake Total 365.383 / 1518.616 300 / 8937.195 6646.074 / 1444.074 Output Total 575 / 630 Balance -209.617 / 888.616 300 / 1545.800 0153.074 / 1444.074 Weight last 48 hrs Weight 77 kg Physical Exam 2 Narrative: General: No acute distress, AO x3, chronically sick appearing, dehydrated HEENT: PERRLA, pupils bilaterally equal and reactive Chest: Normal vesicular breath sounds, no added sounds, equal good air entry bilaterally CVS: S1-S2 regular, no murmurs, no tachycardia, no gallops, no rubs Abdomen: Soft, generalized tenderness more so in right middle and lower quadrant, colostomy in place, no organomegaly, bowel sounds present Neuro: No focal deficits, no facial deformity, AO x3, power 5/5 in all limbs Data 01/07/25 03:35 01/07/25 03:35 A&P Assessment and plan 1. Sepsis: 2. Shock: 3. C. difficile colitis: 4. Chronic nausea: 5. Dehydration: 6. Hypoglycemia: 7. Hypokalemia: 8. Atrial fibrillation/flutter: 9. INDU (acute kidney injury): 10. Hypomagnesemia: 11. Lactic acidosis: 12. Status post colostomy: 13. Chest pain: 14. Elevated troponin: 15. Malnutrition: Plan: 74-year-old lady with a past medical history of colovesical fistula, status post colostomy, presenting to the hospital with 4 to 5 days of recurrent nausea vomiting, abdominal discomfort and loose stool output. Significant abnormalities upon admission include hypotension, hypokalemia, metabolic alkalosis, hypoglycemia, suspect all related to GI losses with reported history. Patient does appear to be clinically dehydrated. Dry parched mucous membranes and dry wrinkled skin. Capillary refill is currently normal. Sepsis: SIRS: Tachycardic, Febrile, Leukocytosis Source: Colitis End organ damage: Acute kidney injury Lactic acid elevated Patient did receive full 30 mL/kg BW. Switch fluid to normal saline at 50 cc/h. Adding TPN. Overall fluid at 75 cc/h. Monitor blood pressures. Keep mean artery pressure 65 mmHg. Blood culture, urine culture, MRSA swab, procalcitonin, urine Legionella, bacterial antigen. History of recurrent UTIs.Continue with IV Zosyn for now. De-escalate antibiotics as per culture results. Present on admission. Shock: Most likely in setting of dehydration along with sepsis. Wean Levophed keeping mean pressure 65. Continue with IV albumin for now. Cheetah examination shows patient not being fluid responsive. C. difficile colitis: Repeat CT on pelvis with contrast to rule out further fistula. Severe. Vancomycin and Flagyl. Contact precautions. Dehydration/hypokalemia: Improving. Hypokalemia resolved. Switch fluids to NS at 50 cc/h. Repeat BMP in afternoon. Replace magnesium. Check phosphorus. Will replace accordingly. Nausea/vomiting: Chronic. Continue Zofran as needed. Add Reglan, scopolamine. Advance diet as per speech evaluation. Hypoglycemia: Most likely in setting of sepsis. Resolved. Malnutrition: Associated with dehydration, hypoalbuminemia, multiple electrolyte abnormalities. Start on TPN for now. Chest pain: Elevated troponin: Denies any active chest pain for now. Appreciate troponin cycled. Delta negative. Check echocardiogram. Patient already on full dose Lovenox. Depending on echocardiogram if showing regional wall motion abnormality patient would benefit with ACS workup once more. Elevated lactate: Continue to monitor. Most likely in setting of severe infection along with malnutrition. Atrial fibrillation: Currently rate controlled. Monitor. Continue with Lovenox as above for anticoagulation. CODE STATUS: Discussed detail with the patient. DNR/DNI. Patient is also [facility]. NPO. TPN. Protonix for PUD prophylaxis Full dose Lovenox will be sufficient for DVT prophylaxis Physical therapy. Plan for the day: Maintain mean artery pressure 65. Wean Levophed accordingly. Restart albumin every 8 hours. Monitor urine output. If continues to remain low even after albumin will check Cheetah and give bolus of fluid accordingly. Continue with Zofran as needed, scopolamine patch, Reglan 5 mg every 8 hours scheduled. Monitor QTc. Repeat EKG. Denies any active chest pain. Echocardiogram done but results awaited. Continue with full dose Lovenox 1 mg/kg body weight every 12 hourly. Patient takes Eliquis at home given A-fib. Appreciate A1c, lipid panel. Continue with TPN for now. Increase dose to 83 cc/h as per dietitian recommendations. If nausea remains controlled can plan for oral intake of diet by tomorrow. As patient is having severe C. difficile due to shock for now we will switch to vancomycin 500 mg every 6 along with IV Flagyl. Discontinue fidaxomicin and Zosyn. Physical therapy. Repeat lactate in AM. Repeat BMP in afternoon. Hypokalemia resolved. Potassium slightly elevated. PDMP PDMP Reviewed: Not Reviewed Attestations 2 Medical Necessity Statement*: Requires further hospitalization for management of shock in setting of dehydration, severe C. difficile in a patient with history of colostomy due to colonic fistula, nausea and vomiting, electrolyte abnormality Critical Care Time: The high probability of a clinically significant, sudden or life threatening deterioration of the patient's [cardiac, renal, pulmonary, GI] system(s) required my full and direct attention, intervention and personal management. The critical care time is as shown. This time is in addition to time spent performing any reported procedures but includes the following: [x] Data and vital sign review and interpretation [x] Patient assessment, examination and intervention [x] Documentation [x] Medication orders and management Critical Care Time (min): 70 Coding Level of Care Code Critical Care >/= 30 minutes Critical care time (in minutes): 70 The high probability of a clinically significant, sudden or life threatening deterioration, as referenced in this documentation, required my full and direct attention, intervention and personal management. The critical care time shown is in addition to time spent performing any reported separately billable procedures and includes the following: [x] Data and vital sign review and interpretation [x ] Patient assessment, examination and intervention [x] Medication orders and management [x] Patient/Family updates as able [x] Care Coordination and Documentation. Diagnoses Sepsis A41.9 Shock R57.9 C. difficile colitis A04.72 Chronic nausea R11.0 Dehydration E86.0 Hypoglycemia E16.2 Hypokalemia E87.6 Atrial fibrillation/flutter I48.91; I48.92 INDU (acute kidney injury) N17.9 Hypomagnesemia E83.42 Lactic acidosis E87.20 Status post colostomy Z93.3 Chest pain R07.9 Elevated troponin R79.89 Malnutrition E46
[2025-01-07] MEDS: norepinephrine 4 MG/250 ML BAG 30 MG IV (13:06)
[2025-01-07] MEDS: FAMOTIDINE IV ×2 (13:18→23:50)
[2025-01-07] MEDS: AA DEX IV ×2 (13:18→23:50)
[2025-01-07] MEDS: LYTES IV ×2 (13:18→23:50)
[2025-01-07] MEDS: MULTIVITAMIN IV ×2 (13:18→23:50)
--- NOTE | 2025-01-07 13:37 | ECG_ITS ---
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: : 1950 Requested By: Byron Goodwin Order Number: [id number] Reading MD: EVELIN ROJO Measurements Intervals Critz Rate: 71 P: 20 UT: 178 QRS: -32 QRSD: 81 T: -90 QT: 390 QTc: 425 Interpretive Statements SINUS RHYTHM LEFT AXIS DEVIATION [QRS AXIS < -30] LOW QRS VOLTAGE IN PRECORDIAL LEADS [QRS DEFLECTION < 1.0 mV IN CHEST LEADS] SEPTAL MYOCARDIAL INFARCTION , OF INDETERMINATE AGE [40+ ms Q WAVE IN V1/V2] MODERATE T-WAVE ABNORMALITY, CONSIDER ANTERIOR ISCHEMIA [-0.1+ mV T-WAVE IN V3/V4] Compared to ECG 01/06/2025 10:59:17 T-wave abnormality now present Possible ischemia now present First degree AV block no longer present Incomplete right bundle-branch block no longer present Myocardial infarct finding still present Electronically Signed On 01-09-2025 10:58:05 CDT by EVELIN ROJO [email or web address]
[2025-01-07 15:59] LABS: Anion Gap 14.7 (5-19); Blood Urea Nitrogen 14 mg/dL (8-23); Calcium 7.7 mg/dL (8.5-10.5); Carbon Dioxide 17 mmol/L (22-29); Chloride 109 mmol/L (98-107); Creatinine Clr Calc Pharmacy 65.6309; Glucose 162 mg/dL (65-115); Osmolality Calculated 286 mOsm/kg (285-295); Potassium 4.7 mmol/L (3.5-5.1); Sodium 136 mmol/L (136-145)
--- NOTE | 2025-01-07 19:00 | PC.NURSE ---
Shift summary: Pt remains resting in the bed through the shift. She threw off her blanket and put her feet off the bed , but that is as far as she got to getting out of bed. TPN infusing at 52ml/hr: goal rate is 83ml/hr. Attempting to wean off Levophed, unsuccessful. She had a bath then, laid on her left side and immediately became hypotensive. Albumin started. LEvophed 2-8mcg/min this shift, ended with it at 4 mcg/min. NO reports of pain, nausea or vomiting today. Urine full of sediment. Ouput of 550 ml. Colostomy burped and drained, 110 of liquid output.
[2025-01-08] VITALS (82 sets, daily range): BP systolic 73–133; BP diastolic 48–101; PULSE 74–151; RESP 17–29; TEMP 36.2–36.9; O2SAT 95–100
[2025-01-08] MEDS: metroNIDAZOLE IV 500 MG/100 ML PREMIX 100 MG IV ×3 (01:02→16:56)
[2025-01-08] MEDS: metoclopramide 5 mg/mL SDV 2 mL IVP ×3 (03:18→15:26)
[2025-01-08] MEDS: albumin 25 G/100 ML BAG 60 G IV (03:18)
[2025-01-08] MEDS: norepinephrine 4 MG/250 ML BAG 15 MG IV (03:34)
[2025-01-08 04:31] LABS: Hematocrit 23.8 % (36-47); Hemoglobin 7.80 g/dL (11.27-16.99); Mean Corpuscular HGB Conc 32.8 g/dL (30-55); Mean Corpuscular Hemoglobin 26.8 pg (27-33); Mean Corpuscular Volume 81.8 fl (85-98); Nucleated Red Blood Cells % 0 %; Platelet Count 149 10^3/cmm (157-399); Red Blood Count 2.91 10^6/uL (3.85-5.65); White Blood Count 4.39 10^3/uL (3.29-11.43)
[2025-01-08 05:04] LABS: Lactic Sepsis W/Reflex 1.8 mmol/L (0.5-2.2)
[2025-01-08 05:09] LABS: Magnesium 1.6 mg/dL (1.7-2.3)
[2025-01-08 05:17] LABS: Alanine Aminotransferase 6 U/L (0-33); Albumin Level 3.5 g/dL (3.5-5.2); Alkaline Phosphatase 39 U/L (35-105); Anion Gap 13.6 (5-19); Aspartate Amino Transferase 13 U/L (0-32); Blood Urea Nitrogen 15 mg/dL (8-23); Calcium 7.6 mg/dL (8.5-10.5); Carbon Dioxide 19 mmol/L (22-29); Chloride 110 mmol/L (98-107); Creatinine Clr Calc Pharmacy 65.6309; Globulin 1.3 g/dL (1.3-4.6); Glucose 113 mg/dL (65-115); Osmolality Calculated 288 mOsm/kg (285-295); Potassium 4.6 mmol/L (3.5-5.1); Sodium 138 mmol/L (136-145); Total Protein 4.8 g/dL (6.6-8.7)
[2025-01-08] MEDS: sucralfate 1 gm/10 mL Oral Liq UDC PO ×3 (06:58→21:44)
[2025-01-08] MEDS: pantoprazole 40 mg SDV IVP ×2 (09:43→21:46)
[2025-01-08] MEDS: magnesium sulfate premix 2 GM/50 ML PIGGYBACK IV (09:56)
[2025-01-08] MEDS: calcium gluconate 0.9% NaCL 1 GM/50 ML PREMIX IV (09:56)
[2025-01-08] MEDS: potassium phosphate (mEq K) 40 MEQ in sodium chloride 0.9% (100 ml) 100 ML 27.25 MEQ IV (10:07)
[2025-01-08 10:37] LABS: Hematocrit 24.1 % (36-47); Hemoglobin 7.80 g/dL (11.27-16.99); Mean Corpuscular HGB Conc 32.4 g/dL (30-55); Mean Corpuscular Hemoglobin 26.1 pg (27-33); Mean Corpuscular Volume 80.6 fl (85-98); Nucleated Red Blood Cells % 0 %; Platelet Count 164 10^3/cmm (157-399); Red Blood Count 2.99 10^6/uL (3.85-5.65); White Blood Count 5.48 10^3/uL (3.29-11.43)
--- NOTE | 2025-01-08 15:23 | P.PN_ITS ---
Subjective 2 Subjective: No acute events overnight. Patient has remained hemodynamically stable and afebrile. Levophed weaned off earlier today morning. More awake and alert today. Having higher ostomy output today. Vitals/I&O/Wt Last Vital Signs Temp 98.1 F 01/08/25 12:50 Pulse 98 01/08/25 15:12 Resp 24 H 01/08/25 15:12 BP 107/56 01/08/25 15:12 Pulse Ox 99 01/08/25 15:12 O2 Del Method Room Air 01/08/25 15:12 O2 Flow Rate 2 01/04/25 21:08 01/08/25 01/08/25 01/08/25 06:59 14:59 22:59 Intake Total 922.821 / 4133.446 1269.4659 / 1269.4659 Output Total 130 / 130 Balance 922.821 / 3613.446 1139.4659 / 1139.4659 Weight last 48 hrs Weight 76 kg Weight 77 kg Physical Exam 2 Narrative: General: No acute distress, AO x3, chronically sick appearing, HEENT: PERRLA, pupils bilaterally equal and reactive Chest: Normal vesicular breath sounds, no added sounds, equal good air entry bilaterally CVS: S1-S2 regular, no murmurs, no tachycardia, no gallops, no rubs Abdomen: Soft, generalized tenderness more so in right middle and lower quadrant, colostomy in place, no organomegaly, bowel sounds present Neuro: No focal deficits, no facial deformity, AO x3, power 5/5 in all limbs Data 01/08/25 10:16 01/08/25 03:25 A&P Assessment and plan 1. Sepsis: 2. Shock: 3. C. difficile colitis: 4. Chronic nausea: 5. Dehydration: 6. Hypoglycemia: 7. Hypokalemia: 8. Atrial fibrillation/flutter: 9. INDU (acute kidney injury): 10. Hypomagnesemia: 11. Lactic acidosis: 12. Status post colostomy: 13. Chest pain: 14. Elevated troponin: 15. Malnutrition: Plan: 74-year-old lady with a past medical history of colovesical fistula, status post colostomy, presenting to the hospital with 4 to 5 days of recurrent nausea vomiting, abdominal discomfort and loose stool output. Significant abnormalities upon admission include hypotension, hypokalemia, metabolic alkalosis, hypoglycemia, suspect all related to GI losses with reported history. Patient does appear to be clinically dehydrated. Dry parched mucous membranes and dry wrinkled skin. Capillary refill is currently normal. Sepsis: SIRS: Tachycardic, Febrile, Leukocytosis Source: Colitis End organ damage: Acute kidney injury Lactic acid elevated Patient did receive full 30 mL/kg BW. Switch fluid to normal saline at 50 cc/h. Adding TPN. Overall fluid at 75 cc/h. Monitor blood pressures. Keep mean artery pressure 65 mmHg. Blood culture, urine culture, MRSA swab, procalcitonin, urine Legionella, bacterial antigen. History of recurrent UTIs.Continue with IV Zosyn for now. De-escalate antibiotics as per culture results. Present on admission. Shock: Most likely in setting of dehydration along with sepsis. Wean Levophed keeping mean pressure 65. Continue with IV albumin for now. Cheetah examination shows patient not being fluid responsive. C. difficile colitis: Repeat CT on pelvis with contrast to rule out further fistula. Severe. Vancomycin and Flagyl. Contact precautions. Dehydration/hypokalemia: Improving. Hypokalemia resolved. Switch fluids to NS at 50 cc/h. Repeat BMP in afternoon. Replace magnesium. Check phosphorus. Will replace accordingly. Nausea/vomiting: Chronic. Continue Zofran as needed. Add Reglan, scopolamine. Advance diet as per speech evaluation. Hypoglycemia: Most likely in setting of sepsis. Resolved. Malnutrition: Associated with dehydration, hypoalbuminemia, multiple electrolyte abnormalities. Start on TPN for now. Chest pain: Elevated troponin: Denies any active chest pain for now. Appreciate troponin cycled. Delta negative. Check echocardiogram. Patient already on full dose Lovenox. Depending on echocardiogram if showing regional wall motion abnormality patient would benefit with ACS workup once more. Elevated lactate: Continue to monitor. Most likely in setting of severe infection along with malnutrition. Atrial fibrillation: Currently rate controlled. Monitor. Continue with Lovenox as above for anticoagulation. CODE STATUS: Discussed detail with the patient. DNR/DNI. Patient is also DNR/DNI as per alf paperwork. NPO. TPN. Protonix for PUD prophylaxis Full dose Lovenox will be sufficient for DVT prophylaxis Physical therapy. Plan for the day: Levophed has been ongoing for last 4 days. Mean artery pressure has been around 65. Mean artery pressure dropping with stopping Levophed at bedtime. Check cortisol level. Add midodrine 5 mg 3 times daily. Discontinue Levophed if mean artery pressure maintained over 65. DC IV albumin. Appreciate albumin levels today. Continue with IV Flagyl and oral vancomycin for severe C. difficile. Nausea resolving. Continue Zofran as needed, scopolamine patch. Ostomy output improving. Hold off on Reglan for now. Denies any active chest pain. Echocardiogram awaited. Continue with Lovenox 1 mg/kg body weight every 12 hourly. Patient takes Eliquis at home for A-fib. Hemoglobin 7.8 today. 9.2 yesterday. No active bleed. Given need for Levophed will transfuse 1 unit of PRBC. Continue with Protonix twice daily, Carafate ACHS. Monitor hemoglobin Q12 hourly. If trends down again will possibly need an endoscopy. Continue with TPN. As patient not having any further nausea and vomiting today start on diet as per speech evaluation. If able to maintain oral intake for next 24 to 36 hours can plan to wean TPN. Abd xray Replace magnesium calcium phosphorus. Monitor magnesium and phosphorus daily. Physical therapy. PDMP PDMP Reviewed: Not Reviewed Attestations 2 Medical Necessity Statement*: Requires further hospitalization for management of septic shock in setting of severe C. difficile in a patient with history of colostomy for colonic fistula, severe malnutrition, multiple electrolyte abnormality, nausea and vomiting while diet is started, TPN is adjusted, anemia in setting of severe malnutrition. Critical Care Time: The high probability of a clinically significant, sudden or life threatening deterioration of the patient's [cardiac, renal, GI, nutrition] system(s) required my full and direct attention, intervention and personal management. The critical care time is as shown. This time is in addition to time spent performing any reported procedures but includes the following: [x] Data and vital sign review and interpretation [x] Patient assessment, examination and intervention [x] Documentation [x] Medication orders and management Critical Care Time (min): 70 Coding Level of Care Code Critical Care >/= 30 minutes Critical care time (in minutes): 70 The high probability of a clinically significant, sudden or life threatening deterioration, as referenced in this documentation, required my full and direct attention, intervention and personal management. The critical care time shown is in addition to time spent performing any reported separately billable procedures and includes the following: [x] Data and vital sign review and interpretation [x ] Patient assessment, examination and intervention [x] Medication orders and management [x] Patient/Family updates as able [x] Care Coordination and Documentation. Diagnoses Sepsis A41.9 Shock R57.9 C. difficile colitis A04.72 Chronic nausea R11.0 Dehydration E86.0 Hypoglycemia E16.2 Hypokalemia E87.6 Atrial fibrillation/flutter I48.91; I48.92 INDU (acute kidney injury) N17.9 Hypomagnesemia E83.42 Lactic acidosis E87.20 Status post colostomy Z93.3 Chest pain R07.9 Elevated troponin R79.89 Malnutrition E46
--- NOTE | 2025-01-08 15:24 | XRR_ITS ---
PROCEDURE INFORMATION: Exam: XR Abdomen Exam date and time: 01/08/2025 3:50 PM Age: 74 years old Clinical indication: Nausea TECHNIQUE: Imaging protocol: Radiologic exam of the abdomen. Views: Frontal supine view of the abdomen. 1 View. COMPARISON: CT angio chest w abd pel w con 01/06/2025 9:38 AM FINDINGS: Gastrointestinal tract: No dilated bowel loops. Organs: Post cholecystectomy. Bones/joints: There is degenerative disease of the spine. XR/XR abdomen 1V* [id number] IMPRESSION: No acute findings.
[2025-01-08] MEDS: FAMOTIDINE IV (15:25)
[2025-01-08] MEDS: MULTIVITAMIN IV (15:25)
[2025-01-08] MEDS: AA DEX IV (15:25)
[2025-01-08] MEDS: LYTES IV (15:25)
--- NOTE | 2025-01-08 17:50 | PC.NURSE ---
Addendum entered by Elvira Perdomo RN 01/08/25 18:34: TPN at goal rate of 83ml/hr. Pt refused dinner time meal, the first oral meal ordered this weekend. Original Note: Shift summary: Pt more alert today. She still has confusion. Wanted this nurse to go see Maite . She could not tell me who exactly Maite was. She would throw off her blankets and scoot her feet to the edge of the bed to get out of the bed. That is as far as it went she was too weak for much further. Levophed stopped today. She was started on Midodrine. She received Calcium, Magnesium and Potassium Phosphate IV today.. Her HGB was low : 7.8. She received a unit of PRBCs today. 100 ml of liquid brown Bm noted in her Colostomy. It is intact and patent. She had 550 of sediment filled yellow urine output today. Catheter flushed once due to sediment volume. Central line dressing, biopatch and hubs changed today. Central line site is without s/s of infection. No reports of pain, nausea or vomiting today. However, when you assist her to sit up in bed she stated it pulls on her abdomen.
--- NOTE | 2025-01-08 20:21 | PC.NURSE ---
Addendum entered by Serena Sparrow RN 01/08/25 21:31: Obtained peripheral access via 20 gauge right forearm. Spoke with Dr Adrian to explain situation who gave orders to hold TPN and start D5-NS at 50 ml/hr. Order placed. Original Note: Central line Upon going into room to assess patient at approximately 1930, patient's central line was pulled out of patient's neck and lying across patient's chest. There was no blood or hematoma present, only a small bruise at the insertion site. Dressing still stuck to patient's neck, and line sutured to neck, but pulled out. Patient's TPN was infusing onto patient's gown. Stopped TPN and notified Anthony, charge nurse. Called Dr Goodwin to notify him of loss of access and having to stop patient's TPN. Inquired if he wanted to start D5 due to pausing TPN until access could be re-established. Dr Goodwin did not order D5 and stated that it was fine to run TPN at a rate of 30 ml/hr through peripheral access overnight once established. Stated to place an order for PICC line placement for morning of 01/09. Order placed. Attempting to attain peripheral access via ultrasound at this time.
[2025-01-08] MEDS: dextrose 5%-sod chloride 0.9% 1,000 ML 50 ML IV (21:41)
[2025-01-09] VITALS (34 sets, daily range): BP systolic 91–155; BP diastolic 50–130; PULSE 63–94; RESP 8–28; TEMP 36.1; O2SAT 91–100
[2025-01-09] MEDS: metroNIDAZOLE IV 500 MG/100 ML PREMIX 100 MG IV ×3 (00:37→17:22)
[2025-01-09 04:16] LABS: Hematocrit 29.6 % (36-47); Hemoglobin 9.80 g/dL (11.27-16.99); Mean Corpuscular HGB Conc 33.1 g/dL (30-55); Mean Corpuscular Hemoglobin 27.1 pg (27-33); Mean Corpuscular Volume 82.0 fl (85-98); Nucleated Red Blood Cells % 0 %; Platelet Count 156 10^3/cmm (157-399); Red Blood Count 3.61 10^6/uL (3.85-5.65); White Blood Count 4.99 10^3/uL (3.29-11.43)
[2025-01-09 04:38] LABS: Alanine Aminotransferase 7 U/L (0-33); Albumin Level 3.5 g/dL (3.5-5.2); Alkaline Phosphatase 56 U/L (35-105); Anion Gap 16.5 (5-19); Aspartate Amino Transferase 22 U/L (0-32); Blood Urea Nitrogen 15 mg/dL (8-23); Calcium 7.8 mg/dL (8.5-10.5); Carbon Dioxide 16 mmol/L (22-29); Chloride 111 mmol/L (98-107); Globulin 1.5 g/dL (1.3-4.6); Glucose 91 mg/dL (65-115); Magnesium 1.6 mg/dL (1.7-2.3); Osmolality Calculated 288 mOsm/kg (285-295); Potassium 4.5 mmol/L (3.5-5.1); Sodium 139 mmol/L (136-145); Total Protein 5.0 g/dL (6.6-8.7)
[2025-01-09 04:39] LABS: Creatinine Clr Calc Pharmacy 65.2354
[2025-01-09] MEDS: pantoprazole 40 mg SDV IVP ×2 (08:26→21:21)
--- NOTE | 2025-01-09 10:00 | PC.NURSE ---
Pt has blankets thrown off and her gown over her head scratching at her bottom. Pt stated it itched. bathed pt, applied lotion and clean linens. Pt's bottom does have a red rash. DR Fernández notified, Ok to Order Nystatin cream for pt's bottom.
--- NOTE | 2025-01-09 11:30 | PC.NURSE ---
Pt has continued to refuse Sucralfate. She denied any pain and refused offered P.O. Acetaminophen. She also refused to even try a bite of her lunch.
--- NOTE | 2025-01-09 13:41 | P.PN_ITS ---
Subjective 2 Subjective: Patient restless fidgety moving covers. Did not follow commands Vitals/I&O/Wt Last Vital Signs Temp 97 F L 01/09/25 07:30 Pulse 77 01/09/25 13:00 Resp 16 01/09/25 13:00 BP 97/58 01/09/25 13:00 Pulse Ox 97 01/09/25 12:00 O2 Del Method Room Air 01/09/25 13:00 O2 Flow Rate 2 01/04/25 21:08 01/08/25 01/09/25 01/09/25 22:59 06:59 14:59 Intake Total 750.417 / 2019.8829 248.333 / 2268.2159 120 / 120 Output Total 650 / 780 500 / 1280 Balance 100.417 / 1239.8829 -251.667 / 988.2159 120 / 120 Weight last 48 hrs Weight 77.6 kg Weight 76 kg Physical Exam 2 Narrative: Awake. Not oriented. Heart regular normal S1-S2 without murmurs clicks gallops or rubs Lungs clear to auscultation without wheezes rales or rhonchi Abdomen soft nontender normal active bowel sounds ileostomy in place with mostly liquid normal-appearing stool color with some firming brown stool Extremities no clubbing cyanosis or edema Data 01/09/25 04:08 01/09/25 04:08 A&P Assessment and plan 1. Sepsis: 2. Shock: 3. C. difficile colitis: 4. Chronic nausea: 5. Dehydration: 6. Hypoglycemia: 7. Hypokalemia: 8. Atrial fibrillation/flutter: 9. INDU (acute kidney injury): 10. Hypomagnesemia: 11. Lactic acidosis: 12. Status post colostomy: 13. Chest pain: 14. Elevated troponin: 15. Malnutrition: Plan: 74-year-old lady with a past medical history of colovesical fistula, status post colostomy, presenting to the hospital with 4 to 5 days of recurrent nausea vomiting, abdominal discomfort and loose stool output. Significant abnormalities upon admission include hypotension, hypokalemia, metabolic alkalosis, hypoglycemia, suspect all related to GI losses with reported history. Patient does appear to be clinically dehydrated. Dry parched mucous membranes and dry wrinkled skin. Sepsis: SIRS: Tachycardic, Febrile, Leukocytosis Source: Colitis End organ damage: Acute kidney injury Lactic acid elevated Patient did receive full 30 mL/kg BW. Switch fluid to normal saline at 50 cc/h. Patient was on TPN-this has been stopped due to the patient pulling out her central line History of recurrent UTIs.Continue with IV Zosyn for now. De-escalate antibiotics as per culture results. Present on admission. Shock: Most likely in setting of dehydration along with sepsis. Wean Levophed keeping mean pressure 65. Continue with IV albumin for now. Cheetah examination shows patient not being fluid responsive. C. difficile colitis: Repeat CT of abdomen and pelvis is negative for small bowel or colon abnormality Severe. Vancomycin and Flagyl. Contact precautions. Dehydration/hypokalemia: Improving. Hypokalemia resolved. Electrolyte replacement as needed Nausea/vomiting: Chronic since surgery 3 months ago Continue Zofran as needed. Add Reglan, scopolamine. Improved Advance diet as per speech evaluation. Hypoglycemia: Most likely in setting of sepsis. Resolved. Malnutrition: Associated with dehydration, hypoalbuminemia, multiple electrolyte abnormalities. Reassess oral intake status Chest pain: Initial elevated troponin delta negative. Recent echo on 11/15/2024 shows: CONCLUSIONS Normal left ventricular size and systolic function, EF 57%. No regional wall motion abnormalities. Normal cardiac chamber sizes There is no pericardial effusion. There are no intracardiac masses. Compared to the study from 07/28/2024, there is no significant change in the 2D findings. Atrial fibrillation: Currently rate controlled. Monitor. Continue with Lovenox as above for anticoagulation. CODE STATUS: DNR/DNI. Patient is also DNR/DNI as per long-term paperwork. Protonix for PUD prophylaxis Full dose Lovenox will be sufficient for DVT prophylaxis Physical therapy. PDMP PDMP Reviewed: Not Reviewed Attestations 2 Medical Necessity Statement*: Requires further hospitalization for management of septic shock in setting of severe C. difficile in a patient with history of colostomy for colonic fistula, severe malnutrition, multiple electrolyte abnormality, nausea and vomiting while diet is started, TPN is adjusted, anemia in setting of severe malnutrition. Coding Level of Care Code Acute Code for Chg Fwd Diagnoses Sepsis A41.9 Shock R57.9 C. difficile colitis A04.72 Chronic nausea R11.0 Dehydration E86.0 Hypoglycemia E16.2 Hypokalemia E87.6 Atrial fibrillation/flutter I48.91; I48.92 INDU (acute kidney injury) N17.9 Hypomagnesemia E83.42 Lactic acidosis E87.20 Status post colostomy Z93.3 Chest pain R07.9 Elevated troponin R79.89 Malnutrition E46
--- NOTE | 2025-01-09 14:08 | PC.SOCIAL ---
IMM Update pg 2 of IMM Updated and reviewed w/ patients family via phone. Copy left @ bedside and copy dated, initialed and placed in chart.
[2025-01-09] MEDS: dextrose 5%-sod chloride 0.9% 1,000 ML 50 ML IV (17:24)
[2025-01-09] MEDS: sucralfate 1 gm/10 mL Oral Liq UDC PO (17:27)
--- NOTE | 2025-01-09 19:13 | PC.NURSE ---
Shift summary: Pt remains resting in the bed throughout shift. She stopped scratching herself after the bath and Lotion. Nystatin ordered and admin for the rash on her bottom. Pt has refused all meals. She has spit food back out. Oral medications are more difficult today. She has capsules back out, or pocketed them under the front part of her tongue. She does best sitting up in bed using a cup without a straw to sip after medication admin. D5NS remains infusing. She is sill received IVPB Flagyl. She has denied pain and refused acetaminophen for pain. Blood sugars 86- 97 this shift. Colostomy patent and draining mostly liquid BM, some starting to form. She had 350ml urine output.
--- NOTE | 2025-01-09 22:42 | PC.NURSE ---
Spoke with Dr Harden regarding patient's limited ability to swallow. Patient not swallowing safely at this time, attempted to administer pills crushed in pudding to which patient was very hesitant to swallow. Dr Harden gave order to hold PO medications through the night and gave recommendation for NG tube, but said she would leave it up to dayshift team.
[2025-01-10] VITALS (20 sets, daily range): BP systolic 95–129; BP diastolic 50–88; PULSE 72–98; RESP 12–18; TEMP 36.2–36.7; O2SAT 94–100
[2025-01-10] MEDS: metroNIDAZOLE IV 500 MG/100 ML PREMIX 100 MG IV ×4 (01:22→23:34)
[2025-01-10 02:59] LABS: Hematocrit 32.4 % (36-47); Hemoglobin 10.30 g/dL (11.27-16.99); Mean Corpuscular HGB Conc 31.8 g/dL (30-55); Mean Corpuscular Hemoglobin 26.8 pg (27-33); Mean Corpuscular Volume 84.4 fl (85-98); Nucleated Red Blood Cells % 0 %; Platelet Count 191 10^3/cmm (157-399); Red Blood Count 3.84 10^6/uL (3.85-5.65); White Blood Count 4.84 10^3/uL (3.29-11.43)
[2025-01-10 03:21] LABS: Alanine Aminotransferase 13 U/L (0-33); Albumin Level 2.9 g/dL (3.5-5.2); Alkaline Phosphatase 67 U/L (35-105); Anion Gap 14.9 (5-19); Aspartate Amino Transferase 46 U/L (0-32); Blood Urea Nitrogen 10 mg/dL (8-23); Calcium 7.7 mg/dL (8.5-10.5); Carbon Dioxide 19 mmol/L (22-29); Chloride 111 mmol/L (98-107); Creatinine Clr Calc Pharmacy 65.8682; Globulin 1.8 g/dL (1.3-4.6); Glucose 78 mg/dL (65-115); Osmolality Calculated 290 mOsm/kg (285-295); Potassium 3.9 mmol/L (3.5-5.1); Sodium 141 mmol/L (136-145); Total Protein 4.7 g/dL (6.6-8.7)
[2025-01-10 03:22] LABS: Magnesium 1.5 mg/dL (1.7-2.3)
[2025-01-10] MEDS: pantoprazole 40 mg SDV IVP ×2 (10:01→20:57)
[2025-01-10] MEDS: magnesium sulfate premix 4 GM/100 ML PREMIX IV (10:09)
--- NOTE | 2025-01-10 10:56 | PC.NURSE ---
[address] doyle aware due to patient not able to take oral meds at this time
--- NOTE | 2025-01-10 12:36 | CTR_ITS ---
PROCEDURE INFORMATION: Exam: CT Head Without Contrast Exam date and time: 01/10/2025 3:17 PM Age: 74 years old Clinical indication: Altered mental status/memory loss; Confusion or disorientation; Additional info: AMS TECHNIQUE: Imaging protocol: Computed tomography of the head without contrast. Radiation optimization: All CT scans at this facility use at least one of these dose optimization techniques: automated exposure control; mA and/or kV adjustment per patient size (includes targeted exams where dose is matched to clinical indication); or iterative reconstruction. COMPARISON: CT cervical spin wo con* [id number] 12/19/2020 10:34 AM RADIATION DOSE METRICS: Total DLP (mGy-cm): 1085.118 FINDINGS: Brain: Mild global brain atrophy and chronic white matter ischemic changes are present. No mass lesion or intracranial hemorrhage is evident. There are no territorial infarctions. No abnormal parenchymal calcifications are noted. To the extent included in the prior cervical spine study, no significant interval change has occurred. Cerebral ventricles: No ventriculomegaly. Paranasal sinuses: Visualized sinuses are unremarkable. No fluid levels. Mastoid air cells: Visualized mastoid air cells are well aerated. Bones: Unremarkable. Soft tissues: Unremarkable. CT/CT head wo con* [id number] IMPRESSION: 1. Age-related parenchymal volume loss and microangiopathic white matter changes, consistent with the patient's age. 2. No evidence of acute intracranial pathology.
[2025-01-10] MEDS: dextrose 5%-sod chloride 0.9% 1,000 ML 50 ML IV (13:33)
--- NOTE | 2025-01-10 14:33 | P.PN_ITS ---
Subjective 2 Subjective: Somnolent difficult to arouse. Will open eyes but unable to keep eyes open. States now that she is not in pain and no to most questions Vitals/I&O/Wt Last Vital Signs Temp 97.9 F 01/10/25 08:50 Pulse 86 01/10/25 12:00 Resp 17 01/10/25 12:00 BP 116/75 01/10/25 12:00 Pulse Ox 100 01/10/25 12:00 O2 Del Method Nasal Cannula 01/10/25 12:00 O2 Flow Rate 2 01/10/25 12:00 01/09/25 01/10/25 01/10/25 22:59 06:59 14:59 Intake Total 971.667 / 1091.667 100 / 5910.980 4338 / 1000 Output Total 460 / 460 295 / 755 200 / 200 Balance 511.667 / 631.667 -195 / 436.667 800 / 800 Weight last 48 hrs Weight 79.469 kg Weight 77.6 kg Physical Exam 2 Narrative: Somnolent Heart regular normal S1-S2 without murmurs clicks gallops or rubs Lungs clear to auscultation without wheezes rales or rhonchi Abdomen soft nontender normal active bowel sounds ileostomy in place; today has formed brown stool; there appears to be a small leak on the right side but since patient is on her left side there is no significant leakage extremities no clubbing cyanosis or edema Data 01/10/25 02:43 01/10/25 02:43 Micro: Microbiology 01/04/25 22:10 Blood Culture - Final Blood NO GROWTH AFTER 5 DAYS 01/04/25 22:20 Blood Culture - Final Blood NO GROWTH AFTER 5 DAYS A&P Assessment and plan 1. Sepsis: 2. Shock: 3. C. difficile colitis: 4. Chronic nausea: 5. Dehydration: 6. Hypoglycemia: 7. Hypokalemia: 8. Atrial fibrillation/flutter: 9. INDU (acute kidney injury): 10. Hypomagnesemia: 11. Lactic acidosis: 12. Status post colostomy: 13. Chest pain: 14. Elevated troponin: 15. Malnutrition: Plan: 74-year-old lady with a past medical history of colovesical fistula, status post ileostomy, presenting to the hospital with 4 to 5 days of recurrent nausea vomiting, abdominal discomfort and loose stool output. Sepsis. Likely from C. difficile colitis Hypotension/shock: Resolved has been off Levophed for 2 days now Continue midodrine C. difficile colitis: Severe; repeat CT of abdomen and pelvis is negative for small bowel or colon abnormality Continue vancomycin and Flagyl. Day 4 Contact precautions. Dehydration/hypokalemia: Improving. Hypokalemia resolved. Electrolyte replacement as needed Altered mental status: Worsening mental status from yesterday to today. Check CT head Check ammonia level Start Depacon 500 mg IV every 8 hours for neurotransmitter stabilization and treatment of altered mental status Malnutrition: Associated with dehydration, hypoalbuminemia, multiple electrolyte abnormalities. Patient was on TPN. She but she pulled out her PICC line Patient requires a feeding source. She is found to have severe dysphagia. Will place NG tube, unfortunately I have not heard back from family to confirm likely needs NG tube. Contacted son and [id number] they have not return phone call. I will proceed with NG tube placement and dietary for tube feed management. Concerned that patient will likely pull out NG tube. May need to consider transfer to [facility] where her initial surgeries were completed as patient may be a candidate for PEG tube in the future? Atrial fibrillation: Currently rate controlled. Monitor. CODE STATUS: DNR/DNI. Patient is also DNR/DNI as per long-term paperwork. PDMP PDMP Reviewed: Not Reviewed Attestations 2 Medical Necessity Statement*: Requires further hospitalization for management of septic shock in setting of severe C. difficile in a patient with history of colostomy for colonic fistula, severe malnutrition, multiple electrolyte abnormality, nausea and vomiting while diet is started, TPN is adjusted, anemia in setting of severe malnutrition. Coding Level of Care Code Acute Code for Chg Fwd Diagnoses Sepsis A41.9 Shock R57.9 C. difficile colitis A04.72 Chronic nausea R11.0 Dehydration E86.0 Hypoglycemia E16.2 Hypokalemia E87.6 Atrial fibrillation/flutter I48.91; I48.92 INDU (acute kidney injury) N17.9 Hypomagnesemia E83.42 Lactic acidosis E87.20 Status post colostomy Z93.3 Chest pain R07.9 Elevated troponin R79.89 Malnutrition E46
[2025-01-10 14:40] LABS: Ammonia 12 umol/L (11-51)
--- NOTE | 2025-01-10 14:55 | XR_ITS ---
WS: [id number] Portable AP upright chest, 01/10/2025 Clinical Data: ng placement Comparison: Portable chest, 01/04/2025 Findings: The enteric tube appears to be in the esophagus and it probably ends in the body of the stomach. No nodules, masses or effusions are seen. The heart is normal. The pulmonary vascularity is not increased. No pneumonia or pneumothorax is seen. There is bilateral lower lobe opacity which may represent atelectasis, effusion and/or pneumonia. Monitor leads are on the chest wall. XR/XR chest 1V portable [id number] Impression: Enteric tube appears to end in body of the stomach.
[2025-01-10] MEDS: vancomycin 100 mg/1 mL Oral Syringe 500 MG PO ×2 (15:34→22:55)
[2025-01-10] MEDS: sucralfate 1 gm/10 mL Oral Liq UDC PO ×2 (17:22→20:57)
[2025-01-11] VITALS (24 sets, daily range): BP systolic 96–126; BP diastolic 60–78; PULSE 81–95; RESP 12–16; TEMP 36.3–37.2; O2SAT 89–100
[2025-01-11 03:44] LABS: Hematocrit 30.6 % (36-47); Hemoglobin 10.00 g/dL (11.27-16.99); Mean Corpuscular HGB Conc 32.7 g/dL (30-55); Mean Corpuscular Hemoglobin 26.7 pg (27-33); Mean Corpuscular Volume 81.6 fl (85-98); Nucleated Red Blood Cells % 0 %; Platelet Count 226 10^3/cmm (157-399); Red Blood Count 3.75 10^6/uL (3.85-5.65); White Blood Count 5.51 10^3/uL (3.29-11.43)
[2025-01-11 04:16] LABS: Alanine Aminotransferase 14 U/L (0-33); Albumin Level 2.8 g/dL (3.5-5.2); Alkaline Phosphatase 68 U/L (35-105); Anion Gap 12.7 (5-19); Aspartate Amino Transferase 37 U/L (0-32); Blood Urea Nitrogen 6 mg/dL (8-23); Calcium 7.7 mg/dL (8.5-10.5); Carbon Dioxide 20 mmol/L (22-29); Chloride 112 mmol/L (98-107); Creatinine Clr Calc Pharmacy 66.6074; Globulin 2.1 g/dL (1.3-4.6); Glucose 99 mg/dL (65-115); Osmolality Calculated 290 mOsm/kg (285-295); Potassium 3.7 mmol/L (3.5-5.1); Sodium 141 mmol/L (136-145); Total Protein 4.9 g/dL (6.6-8.7)
[2025-01-11] MEDS: vancomycin 100 mg/1 mL Oral Syringe 500 MG PO ×3 (04:28→15:27)
[2025-01-11] MEDS: sucralfate 1 gm/10 mL Oral Liq UDC PO ×3 (06:17→17:37)
--- NOTE | 2025-01-11 07:23 | PC.NURSE ---
ng placement received via verbal order on 01/10 procedure performed provider aware late entry on order placed
[2025-01-11] MEDS: metroNIDAZOLE IV 500 MG/100 ML PREMIX 100 MG IV ×2 (09:09→15:30)
[2025-01-11] MEDS: pantoprazole 40 mg SDV IVP ×2 (09:09→21:32)
[2025-01-11] MEDS: dextrose 5%-sod chloride 0.9% 1,000 ML 50 ML IV (09:10)
[2025-01-11] MEDS: ondansetron 2 mg/ML SDV 2 mL 4 MG IVP ×2 (11:26→18:00)
[2025-01-11] MEDS: FUROsemide 10 mg/mL SDV 4mL 40 MG IVP (11:38)
--- NOTE | 2025-01-11 12:12 | PC.SOCIAL ---
IMM Update pg 2 of IMM not updated w/ patient as she is not A&O. Copy provided and copy dated, initialed and placed in chart.
--- NOTE | 2025-01-11 12:47 | P.PN_ITS ---
Subjective 2 Subjective: Today patient is complaining of abdominal pain and nausea. The only change being that I remove the scopolamine patch yesterday. Will consider restarting Conferred with RN and patient was listed as an ICU level patient however I recall writing transfer orders yesterday so I am unclear what happened and will reorder the transfer. Vitals/I&O/Wt Last Vital Signs Temp 98.9 F 01/11/25 08:00 Pulse 87 01/11/25 10:00 Resp 16 01/11/25 10:00 BP 115/68 01/11/25 10:00 Pulse Ox 99 01/11/25 09:00 O2 Del Method Nasal Cannula 01/10/25 16:00 O2 Flow Rate 2 01/10/25 16:00 01/10/25 01/11/25 01/11/25 22:59 06:59 14:59 Intake Total 552.5 / 1707.5 722.5 / 2430.0 240.833 / 240.833 Output Total 525 / 725 425 / 1150 Balance 27.5 / 982.5 297.5 / 1280.0 240.833 / 240.833 Weight last 48 hrs Weight 80.966 kg Weight 79.469 kg Physical Exam 2 Narrative: Lethargic but more awake today Heart regular normal S1-S2 without murmurs clicks gallops or rubs Lungs clear to auscultation without wheezes rales or rhonchi Abdomen soft nontender normal active bowel sounds ileostomy in place; today has formed brown stool; there appears to be a small leak on the right side but since patient is on her left side there is no significant leakage extremities no clubbing cyanosis or edema Data 01/11/25 03:35 01/11/25 03:35 A&P Assessment and plan 1. Sepsis: 2. Shock: 3. C. difficile colitis: 4. Chronic nausea: 5. Dehydration: 6. Hypoglycemia: 7. Hypokalemia: 8. Atrial fibrillation/flutter: 9. INDU (acute kidney injury): 10. Hypomagnesemia: 11. Lactic acidosis: 12. Status post colostomy: 13. Chest pain: 14. Elevated troponin: 15. Malnutrition: Plan: 74-year-old lady with a past medical history of colovesical fistula, status post ileostomy, presenting to the hospital with 4 to 5 days of recurrent nausea vomiting, abdominal discomfort and loose stool output. Patient was initially septic with hypotension requiring Levophed. 2 days later she was found to have C. difficile. She was treated as fulminant C. difficile colitis with IV Flagyl and oral vancomycin. While the patient was discontinued from the Levophed she was started on midodrine. Her blood pressure tends to run 110-120 systolic. For me over the past 3 days that patient is equivocal she is not getting worse and not getting better. She has altered mental status has good hours and then hours where she is somnolent. Her ability to swallow also fluctuates. At this time she has an NG tube but still nutrition has not written orders thus I will take care of that. Since the patient had a long stay at [facility] I contacted the single line referral. It was clear that she had complicated course and at least 2 surgeries while she was there in September. It is unclear if she has a remnant of rectal or sigmoid colon that may be infected that the current treatment is not affecting. Therefore I requested transfer to [facility] where she received her abdominal surgical care back in September. She has continued abdominal pain nausea and vomiting requiring Reglan and scopolamine patch sulcal fate etc. And so far she has not taken significant oral intake. I reordered transfer to floor although no bed has been available. I spoke with [facility] transfer center and nurse practitioner taking transfers from the hospital service and they have accepted her to a med/tele bed. PDMP PDMP Reviewed: Not Reviewed Attestations 2 Medical Necessity Statement*: Requires continued hospitalization for altered mental status malnutrition without oral intake consistent abdominal pain and nausea Coding Level of Care Code Acute Code for Chg Fwd Diagnoses Sepsis A41.9 Shock R57.9 C. difficile colitis A04.72 Chronic nausea R11.0 Dehydration E86.0 Hypoglycemia E16.2 Hypokalemia E87.6 Atrial fibrillation/flutter I48.91; I48.92 INDU (acute kidney injury) N17.9 Hypomagnesemia E83.42 Lactic acidosis E87.20 Status post colostomy Z93.3 Chest pain R07.9 Elevated troponin R79.89 Malnutrition E46
[2025-01-11] MEDS: albumin 25 G/100 ML BAG 60 G IV ×2 (15:27→22:35)
[2025-01-11] MEDS: valproic acid inj 500 MG in sodium chloride 0.9% (plus) 50 ML 55 MG IV (21:33)
[2025-01-11] MEDS: vancomycin 100 mg/1 mL Oral Syringe 500 MG XX (21:45)
--- NOTE | 2025-01-11 22:00 | PC.NURSE ---
Fluids Stopped Maintenance fluids stopped prior to 1900. Dr. Harden contacted and order received to discontinue order.
[2025-01-12] VITALS: BP 114/55; PULSE 83; RESP 14; TEMP 36.7; O2SAT 96
[2025-01-12] MEDS: metroNIDAZOLE IV 500 MG/100 ML PREMIX 100 MG IV (00:52)
[2025-01-12 01:00] VITALS: BP 112/66; PULSE 87; RESP 17; O2SAT 97
[2025-01-12 02:00] VITALS: BP 105/62; PULSE 87; RESP 17; O2SAT 93
[2025-01-12 03:00] VITALS: BP 99/59; PULSE 81; RESP 12; O2SAT 96
[2025-01-12 04:00] VITALS: BP 116/64; PULSE 85; RESP 16; TEMP 36.6; O2SAT 97
--- NOTE | 2025-01-12 04:00 | PC.NURSE ---
Transfer Patient accepted to [place] [address] bed 1 on [address]. Report called to Teddy Diop at 0330. [facility] ambulance contacted and pickup time set for [id number]. Son Alex Iglesias gave telephone consent via manager data warehouse.
[2025-01-12] MEDS: valproic acid inj 500 MG in sodium chloride 0.9% (plus) 50 ML 55 MG IV (04:26)
[2025-01-12] MEDS: vancomycin 100 mg/1 mL Oral Syringe 500 MG XX (04:26)
[2025-01-12] MEDS: albumin 25 G/100 ML BAG 60 G IV (06:33)
[2025-01-12] MEDS: sucralfate 1 gm/10 mL Oral Liq UDC NG-TUBE (06:36)
--- NOTE | 2025-01-12 07:20 | PC.NURSE ---
Cardiac monitoring strip placed in paper chart
--- NOTE | 2025-01-12 08:07 | PM.DCS ---
Discharge Providers Date of Admission: 01/04/25 23:29 Date of Discharge: January 12, 2025 Attending Provider at Admission: Ayla Adrian MD Attending Provider at Discharge: Duke Fernández DO Primary Care Provider: DOMINIC Frost Diagnoses at Discharge Discharge Diagnosis 1. Sepsis: 2. Shock: 3. C. difficile colitis: 4. Chronic nausea: 5. Dehydration: 6. Hypoglycemia: 7. Hypokalemia: 8. Atrial fibrillation/flutter: 9. INDU (acute kidney injury): 10. Hypomagnesemia: 11. Lactic acidosis: 12. Status post colostomy: 13. Chest pain: 14. Elevated troponin: 15. Malnutrition: Reason for Visit Reason for Visit: weakness, headache Brief History: Dianelys Reagan is a 74 year old female with a past medical history of recurrent diverticulitis, complicated by colovesical fistula which required colostomy in September 2024. In November 2024 patient was admitted here for SBO and recurrent fistula for which she required transfer to [place], details from this admission at outside hospital are not currently available. She [facility] from prison today for altered mental status. When patient first arrived she was confused, disoriented and hypotensive. Blood pressure was 70 systolic. Potassium level earlier today at the prison was at 2.4. Upon arrival she was hypoglycemic with blood sugar in the 60s. She received IV dextrose and at the time of my assessment patient's mental status is improved. She is correctly able to tell me her name, age, date of . Does not recall how she got to the hospital. She reports feeling sick for the last 5 days. Reports that she has been having generalized abdominal discomfort, multiple episodes of vomiting and liquid stool output in her stoma. She reports subjective fever and chills at the prison. She is still somewhat tangential in her conversation therefore difficult to establish reliability of her history. Hospital Course Hospital Course 74-year-old lady with a past medical history of colovesical fistula, status post ileostomy (at [facility] in September 2024) presenting to the hospital with 4 to 5 days of recurrent nausea vomiting, abdominal discomfort and loose stool output. Patient was initially septic with hypotension requiring Levophed. 2 days later she was found to have C. difficile. She was treated as fulminant C. difficile colitis with IV Flagyl and oral vancomycin. While the patient was weaned from the Levophed she was started on midodrine. Her blood pressure tends to run 110-120 systolic. Over the past 3 days that patient is equivocal she is not getting worse and not getting better. She has altered mental status; having a few good hours and then hours where she is somnolent. Her ability to swallow also fluctuates. At this time she has an NG tube ; feedings just started yesterday although intended to start 2 days ago. Since the patient had a long stay at [facility] I contacted the single line referral. It was clear that she had complicated course and at least 2 surgeries while she was there in September. It is unclear if she has a remnant of rectal or sigmoid colon that may be infected that the current treatment is not affecting. Therefore I requested transfer to [facility] where she received her abdominal surgical care back in September. She has continued abdominal pain nausea and vomiting requiring Reglan and scopolamine patch sulcalfate etc. And so far she has not taken significant oral intake. I spoke with [facility] transfer center on 01/11/2025 and nurse practitioner taking transfers from the hospital service and they have accepted her to a med/tele bed. The accepting physician is Dr. Walters. Of note her right arm looks edematous compared to the left. Would consider venous Doppler Physical Exam Narrative: awake, does not move. Heart regular normal S1-S2 without murmurs clicks gallops or rubs Lungs clear to auscultation without wheezes rales or rhonchi Abdomen soft nontender normal active bowel sounds ileostomy in place; has a mixture of minimally formed stool as well as liquid stool. There appears to be a small leak on the right side but since patient is on her left side there is no significant leakage extremities no significant edema in the legs. Yesterday we noted arm swelling right greater than left we did give Lasix and she was able to have an output of 3000 L There is a concern for DVT? Urinary Catheter Management: Cohen: Cath Placed During This Visit: no Reason for Continuing Indwelling Catheter: Accurate Measurement of Urinary Output in Critically Ill Patients Discharge Data Studies Completed and Pending Completed Studies During Hospitalization Category Date Time Status CT Angio Chest + Abdomen Pelvis w/ contrast; 09808 + Cat Scan 01/06/25 04:[address] abdomen pelvis wo con 90038 Stat Cat Scan 01/04/25 21:[address] head wo con* [id number] Routine Cat Scan 01/10/25 12:36 Completed XR abdomen 1V* [id number] Routine Exams 01/08/25 15:24 Completed XR chest 1V portable [id number] Stat Exams 01/04/25 22:03 Completed XR chest 1V portable [id number] Stat Exams 01/10/25 14:55 Completed Pending at discharge Category Date Time Status CV. echo complete* [id number] Routine Ultrasound 01/06/25 06:19 Taken Radiology Impressions Abdomen/Pelvis CT 01/04/25 21:36 IMPRESSION: 1. Slightly limited study due to lack of intravenous contrast enhancement. 2. Suggestion of possible fatty liver infiltration. 3. Status post cholecystectomy. No urinary tract obstruction or calculus on either side. Left mid abdomen colostomy without bowel obstruction or parastomal hernia, unchanged. 4. Abdominal pain is difficult to explain. No evidence of diverticulitis or small bowel obstruction. Appendix is not visualized although no evidence of appendicitis. Chest/Abdomen/Pelvis CT 01/06/25 04:00 IMPRESSION: 1. No pulmonary embolism. 2. New small bilateral pleural effusions. 3. New soft tissue anasarca and mesenteric edema. No ascites. 4. No pneumonia. 5. No renal obstruction. 6. Subtotal colectomy. 7. RIGHT lower quadrant ileostomy. No obstruction at the ileostomy site. Normal small bowel. Abdomen X-Ray 01/08/25 15:24 IMPRESSION: No acute findings. Head CT 01/10/25 12:36 IMPRESSION: 1. Age-related parenchymal volume loss and microangiopathic white matter changes, consistent with the patient's age. 2. No evidence of acute intracranial pathology. Chest X-Ray 01/10/25 14:55 Impression: Enteric tube appears to end in body of the stomach. Laboratory Results WBC 5.51 10^3/uL (3.29-11.43) 01/11/25 03:35 RBC 3.75 10^6/uL (3.85-5.65) L 01/11/25 03:35 Hgb 10.00 g/dL (11.27-16.99) L 01/11/25 03:35 Hct 30.6 % (36-47) L 01/11/25 03:35 MCV 81.6 fl (85-98) L 01/11/25 03:35 MCH 26.7 pg (27-33) L 01/11/25 03:35 MCHC 32.7 g/dL (30-55) 01/11/25 03:35 RDW 19.5 % (12.1-15.1) H 01/11/25 03:35 Plt Count 226 10^3/cmm (157-399) 01/11/25 03:35 MPV 9.2 fL (7.4-10.4) 01/11/25 03:35 Neut % (Auto) 61.0 % 01/11/25 03:35 Lymph % (Auto) 20.9 % 01/11/25 03:35 [place] % (Auto) 10.3 % 01/11/25 03:35 Eos % (Auto) 6.0 % 01/11/25 03:35 Baso % (Auto) 1.1 % 01/11/25 03:35 Neut # (Auto) 3.36 10^3/uL (1.8-7.7) 01/11/25 03:35 Lymph # (Auto) 1.2 10^3/uL (0.8-4.8) 01/11/25 03:35 [place] # (Auto) 0.6 10^3/uL (0.2-0.9) 01/11/25 03:35 Eos # (Auto) 0.3 10^3/uL (0.0-0.8) 01/11/25 03:35 Baso # (Auto) 0.1 10^3/uL (0.0-0.1) 01/11/25 03:35 Nucleated RBC % (auto) 0 % 01/11/25 03:35 Nucleated RBCs # 0.0 /100WBC 01/11/25 03:35 Specimen Type Arterial 01/04/25 21:46 Sample Site Brachial, left 01/04/25 21:46 ABG pH 7.74 (7.35-7.45) H* 01/04/25 21:46 ABG pCO2 14.5 mmHg (35-45) L* 01/04/25 21:46 ABG pO2 121.0 mmHg (80.0-100.0) H 01/04/25 21:46 ABG HCO3 19.6 mmol/L (22-26) L 01/04/25 21:46 ABG O2 Saturation > 99.1 01/04/25 21:46 ABG Base Excess 2.3 mmol/L (-2.0-2.0) H 01/04/25 21:46 Sergio Test N/a 01/04/25 21:46 A-a O2 Gradient 0.9 mmHg (5-10) L 01/04/25 21:46 Hematocrit 33.5 % (37-47) L 01/04/25 21:46 Hgb O2 Saturation 98.2 % (95-100) 01/04/25 21:46 Carboxyhemoglobin 0.6 %THgb (0.4-20.1) 01/04/25 21:46 Methemoglobin 0.9 % (0.4-1.5) 01/04/25 21:46 Total Hemoglobin 10.9 g/dL (12-16) L 01/04/25 21:46 Sodium 130.0 mmol/L (131-143) L 01/04/25 21:46 Potassium 2.0 mmol/L (3.5-5.0) L 01/04/25 21:46 Glucose 71.0 mg/dL (70-115) 01/04/25 21:46 Ionized Calcium 0.9 mmol/L (1.1-1.4) L 01/04/25 21:46 O2 Delivery Device Room air 01/04/25 21:46 Gasoline Finisher ID [email or web address] 01/04/25 21:46 Sodium 141 mmol/L (136-145) 01/11/25 03:35 Potassium 3.7 mmol/L (3.5-5.1) 01/11/25 03:35 Chloride 112 mmol/L (98-107) H 01/11/25 03:35 Carbon Dioxide 20 mmol/L (22-29) L 01/11/25 03:35 Anion Gap 12.7 (5-19) 01/11/25 03:35 BUN 6 mg/dL (8-23) L 01/11/25 03:35 Creatinine 0.5 mg/dL (0.5-0.9) 01/11/25 03:35 GFR Calculation Not Reportable 01/11/25 03:35 Glucose 99 mg/dL (65-115) 01/11/25 03:35 POC Glucose 95 mg/dL (70-110) 01/12/25 04:26 Estimat Average Glucose 97 09/04/25 06:13 Hemoglobin A1c 5.0 % (4.0-6.0) 01/05/25 06:13 Calculated Osmolality 290 mOsm/kg (285-295) 01/11/25 03:35 Lactic Acid 1.8 mmol/L (0.5-2.2) 01/08/25 03:25 Lactic Acid (Sepsis) 3.9 mmol/L (0.5-2.2) H 01/06/25 06:06 Lactate 4.4 mmol/L (0.5-2.2) H* 01/05/25 06:13 Calcium 7.7 mg/dL (8.5-10.5) L 01/11/25 03:35 Phosphorus 2.5 mg/dL (2.5-4.5) 01/10/25 02:43 Magnesium 1.5 mg/dL (1.7-2.3) L 01/10/25 02:43 Iron 157 ug/dL (37-145) H 01/05/25 06:13 TIBC 174 mcg/dl 01/05/25 06:13 % Saturation 90.2 % (20-50) H 01/05/25 06:13 Unsat Iron Binding < 17 ug/dL (112-347) L 01/05/25 06:13 Total Bilirubin 0.5 mg/dL (0.15-1.2) 01/11/25 03:35 AST 37 U/L (0-32) H 01/11/25 03:35 ALT 14 U/L (0-33) 01/11/25 03:35 Alkaline Phosphatase 68 U/L (35-105) 01/11/25 03:35 Ammonia 12 umol/L (11-51) 01/10/25 14:18 Creatine Kinase 90 U/L (26-192) 01/04/25 22:10 Troponin T Baseline 164 ng/L (0-10) H* 01/06/25 02:57 Troponin T 120 Minute 147.9 ng/L (0-10) H 01/06/25 05:00 Delta Troponin T -16.1 ABS# (0-10) L 01/06/25 05:00 Troponin T Hi Sens 6Hr 130.2 ng/L (0-10) H 01/06/25 09:18 Troponin T Hi Sens 6Hr Delta -33.8 ng/L (0-12) L 01/06/25 09:18 Total Protein 4.9 g/dL (6.6-8.7) L 01/11/25 03:35 Albumin 2.8 g/dL (3.5-5.2) L 01/11/25 03:35 Globulin 2.1 g/dL (1.3-4.6) 01/11/25 03:35 Lipase 26 U/L (13-60) 01/04/25 22:10 Vitamin B12 1261 pg/mL (232-1245) H 01/05/25 06:13 Folate 2.7 ng/mL (4.8-37.3) L 01/06/25 02:57 Procalcitonin 0.46 ng/mL (0-0.5) 01/05/25 06:13 TSH 2.17 uIU/mL (0.27-4.20) 01/05/25 06:13 Random Cortisol 5.72 ug/dL (2.47-19.5) 01/08/25 03:25 Urine Color Dark yellow (Yellow) A 01/04/25 23:00 Urine Appearance Clear (CLEAR) 01/04/25 23:00 Urine pH 5.0 (5-7) 01/04/25 23:00 Ur Specific [place] 1.025 (1.005-1.030) 01/04/25 23:00 Urine Protein 1+ (Negative) A 01/04/25 23:00 Urine Glucose (UA) Negative (Normal) 01/04/25 23:00 Urine Ketones 1+ (Negative) H 01/04/25 23:00 Urine Blood Negative (Negative) 01/04/25 23:00 Urine Nitrate Negative (Negative) 01/04/25 23:00 Urine Bilirubin Negative (Negative) 01/04/25 23:00 Urine Urobilinogen 1.0 mg/dL (Negative) 01/04/25 23:00 Ur Leukocyte Esterase Negative (Negative) 01/04/25 23:00 Urine RBC 0-2 /hpf (0-2) 01/04/25 23:00 Urine WBC 0-5 /hpf (0-5) 01/04/25 23:00 Ur Squamous Epith Cells 0-5 /hpf (0-5) 01/04/25 23:00 Amorphous Sediment Not Reportable 01/04/25 23:00 Urine Bacteria None seen /hpf (NONE) 01/04/25 23:00 Hyaline Casts 23.57 /lpf 01/04/25 23:00 C. difficile (PCR) Positive (Negative) H 01/06/25 07:42 C.difficile Tox Confrm Positive (Negative) H 01/06/25 07:42 Influenza A (PCR) Negative (Negative) 01/04/25 23:10 Influenza Type B (PCR) Negative (Negative) 01/04/25 23:10 RSV (PCR) Negative (Negative) 01/04/25 23:10 SARS-CoV-2 (PCR) Negative (Negative) 01/04/25 23:10 Blood Type A Positive 01/06/25 06:06 Rho(D) Type Rh positive 01/06/25 06:06 Antibody Screen Negative 01/06/25 06:06 Crossmatch See Detail 01/06/25 06:[address] Abd/Pel: Radiologist's impression: CT/CT angio chest w abd pel w con IMPRESSION: 1. No pulmonary embolism. 2. New small bilateral pleural effusions. 3. New soft tissue anasarca and mesenteric edema. No ascites. 4. No pneumonia. 5. No renal obstruction. 6. Subtotal colectomy. 7. RIGHT lower quadrant ileostomy. No obstruction at the ileostomy site. Normal small bowel. Vitals Last Vital Signs Temp 97.9 F 01/12/25 04:00 Pulse 85 01/12/25 04:00 Resp 16 01/12/25 04:00 BP 116/64 01/12/25 04:00 Pulse Ox 97 01/12/25 04:00 O2 Del Method Room Air 01/12/25 00:00 O2 Flow Rate 2 01/10/25 16:00 Discharge Plan Discharge Patient Disposition: Xfer Short-Term Hosp Condition: Stable Prescriptions: No Action ondansetron 4 mg tablet,disintegrating See Rx Instructions .ROUTE .COMPLEX Rx Instructions: INSERT 1 TABLET BY MOUTH/PER TUBE ROUTE EVERY 6 HOURS NEEDED FOR NAUSEA OR VOMITING (1ST LINE FOR NAUSEA/VOMITING) FOR UP TO 30 DAYS hydrocodone-acetaminophen 5-325 mg tablet 1 tab PO Q6H acetaminophen [Tylenol] 325 mg Tablet 650 mg PO QID PRN (Reason: Fever Or Pain) ipratropium-albuterol 0.5 mg-3 mg(2.5 mg base)/3 mL Solution For Nebulization 3 ml INHALATION Q6H PRN (Reason: Shortness Of Breath Or Wheezing) guaifenesin [Tussin Cough] 100 mg/5 mL Liquid 300 mg PO Q4H PRN (Reason: Cough) magnesium hydroxide [Milk of Magnesia] 400 mg/5 mL Suspension 30 ml PO DAILY PRN (Reason: Constipation) bisacodyl 10 mg Suppository 10 mg [place] DAILY PRN (Reason: Constipation) Fleet Enema 19-7 gram/118 mL Enema 118 ml [place] DAILY PRN (Reason: Constipation) docusate sodium 100 mg Capsule 100 mg PO DAILY magnesium citrate Solution 298 ml PO DAILY PRN (Reason: Constipation) polyethylene glycol 3350 [GlycoLax] 17 gram/dose Powder 17 g PO DAILY polyethylene glycol 3350 [Miralax] 17 gram/dose Powder 17 g PO DAILY levofloxacin 500 mg Tablet 500 mg PO DAILY scopolamine base 1 mg over 3 days Patch 3 Day 1 patch TRANSDERMAL Q3D PRN (Reason: Nausea And Vomiting) dicyclomine 10 mg Capsule 10 mg PO BID metoclopramide HCl [Reglan] 10 mg Tablet 10 mg PO Q6H PRN (Reason: Nausea And Vomiting) Artificial Tears (danette/min) 83-15 % Ointment 1 applic OPHTHALMIC (EYE) DAILY PRN (Reason: Dry Eyes) omeprazole 20 mg Tablet,Delayed Release (Dr/Ec) 20 mg PO DAILY Eliquis 5 mg tablet 5 mg PO BID Contact Printer Dry Film OK for DC: Hospitalist Discharge Order = DC NOW: Discharge Order (Routine); Ordered 01/12/25 Ordered By: Duke Fernández Referrals: Emanuel Lucia FNP [Primary Care Provider, Family Practice] Discharge Diet: As Directed Discharge Attestations Time Spent in Discharge Care*: less than 30 min Quality Metrics Clinical Quality Measures [ No reported AMI, CVA or VTE this stay] Coding Level of Care Code Acute Code for Chg Fwd Diagnoses Sepsis A41.9 Shock R57.9 C. difficile colitis A04.72 Chronic nausea R11.0 Dehydration E86.0 Hypoglycemia E16.2 Hypokalemia E87.6 Atrial fibrillation/flutter I48.91; I48.92 INDU (acute kidney injury) N17.9 Hypomagnesemia E83.42 Lactic acidosis E87.20 Status post colostomy Z93.3 Chest pain R07.9 Elevated troponin R79.89 Malnutrition E46
--- NOTE | 2025-01-12 09:13 | PC.NURSE ---
update given to jaskaran and garett saavedra crew transfer,,,,son notified of above
[2025-01-12 09:15] VITALS: BP 116/68; PULSE 88; RESP 22; TEMP 36.1; O2SAT 98
== END 2025-01-12 09:19 | disposition short-term general hospital (02) | DRG 871 ==
LOC: ER 01-05 00:19 → ER IP 01-05 03:18 → ICU 01-05 05:26
PROVIDERS: Student in an Organized Health Care Education/Training Program; Admitting Provider Student in an Organized Health Care Education/Training Program; Emergency Provider Family Medicine; PCP Registered Nurse; Visit Provider Internal Medicine
DX: A41.9 Sepsis, unspecified organism (principal); E43 Unspecified severe protein-calorie malnutrition; R65.21 Severe sepsis with septic shock; N17.9 Acute kidney failure, unspecified; A04.72 Enterocolitis due to Clostridium difficile, not specified as recurrent; E87.20 Acidosis, unspecified; E87.3 Alkalosis; E86.0 Dehydration; E87.6 Hypokalemia; E16.2 Hypoglycemia, unspecified; I48.91 Unspecified atrial fibrillation; E83.42 Hypomagnesemia; Z68.27 Body mass index [BMI] 27.0-27.9, adult; R79.89 Other specified abnormal findings of blood chemistry; R07.9 Chest pain, unspecified; I10 Essential (primary) hypertension; R11.2 Nausea with vomiting, unspecified; Z66 Do not resuscitate; E88.09 Other disorders of plasma-protein metabolism, not elsewhere classified; Z93.3 Colostomy status; Z79.01 Long term (current) use of anticoagulants; Z87.440 Personal history of urinary (tract) infections
CPT/HCPCS: 36415; 36416; 36430; 36592; 36600; 70450; 71045; 71275; 74018; 74176; 74177; 80048; 80051; 80053; 81001; 82140; 82330; 82533; 82550; 82607; 82746; 82805; 82962; 83036; 83540; 83550; 83605; 83690; 83735; 84100; 84145; 84443; 84484; 85025; 86850; 86900; 86920; 87040; 87324; 87493; 87637; 92507; 92523; 92526; 92610; 93005; 93306; 96365; 96366; 96367; 96372; 96376; 97110; 97162; 97530; 99285; 99291; J0131; J0612; J1610; J1650; J1938; J2405; J2470; J2543; J2765; J3475; J3480; J3490; J7030; J7042; J7799; J9999; P9040; P9046

== ENCOUNTER 2025-02-03 22:01 | Emergency (ER) | payer MEDICARE, SELFPAY ==
--- OUTSIDE RECORDS SUMMARY | 2025-01-12 11:21 | XMS_ITS | Encounter Summary ---
Author Organization [employer] [facility] Address [address] [place] [address] Care Team Providers Care Auto Service Advisor Name Role Phone Non-Staff, Physician Primary Care Provider Unava ilable Reason for Referral * Eval and Treat (2-4 Days) - Closed Specialty Diagnoses / Procedures Referred By Contac t Referred To Contact Family Practice Diagnoses C. difficile colitis Procedures ID OFFICE/OUTPATIENT ESTABLISHED MOD MDM 30 MIN ID OFFICE/OUTPATIENT NEW MODERATE [place] [address] [place] [phone] Phone: tel: fax: Referral ID Status Reason Start Date Expiration Date Visits Re quested Visits Authorized [id number] Closed 01/31/2025 01/31/2026 1 1 Reason for Visit * Auth/Cert (Routine) Specialty Diagnoses / Procedures Referred By Contac t Referred To Contact Internal Medicine Diagnoses C-diff (needs private room) FTT Giovana Marvin MD [address] [place] [address] Phone: tel: fax: [facility] [address] [place] [phone] Phone: tel: fax: Referral ID Status Reason Start Date Expiration Date Visits Re quested Visits Authorized [id number] 1 1 Encounter Details Date Type Department Care Team (Latest Contact Info) Description 01/12/2025 11:21 AM CDT - 01/31/2025 6:45 PM CDT Hospital Encounter [facility] [address] [place] [address] Giovana Walters MD [address] [place] [address] Gardenia Berry MD [address] [place] [address] Shirley Mccarthy MD [address] [place] [address] Erendira Jackson MD [address] [place] [address] Lea Green MD [address] [place] [address] C. difficile colitis Discharge Disposition: Home Health Care Svc Social History Tobacco Use Types Packs/Day Years Used Date Smoking Tobacco: Never Smokeless Tobacco: Never Alcohol Use Standard Drinks/Week Comments No 0 (1 standard drink = 0.6 oz pur e alcohol) Feeling Safe Answer Date Recorded Are you in a relationship wi th someone who hurts you emotionally and/or physically? 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 Gender Identity Not on file Sexual Orientation Not on file documented as of this encounter Last Filed Vital Signs Vital Sign Reading Time Taken Comments Blood Pressure 117/56 01/31/2025 4:12 PM CDT Pulse 78 01/31/2025 4:12 PM CDT Temperature 36.6 C (97.8 F) 01/31/2025 4:12 PM CDT Respiratory Rate 18 01/31/2025 4:12 PM CDT Oxygen Saturation 98% 01/31/2025 4:12 PM CDT Inhaled Oxygen Concentration - - Weight 69.9 kg (154 lb) 01/28/2025 4:27 AM CDT Height 167.6 cm (5' 6 ) 01/25/2025 10:45 AM CDT Body Mass Index 24.86 01/25/2025 10:45 AM CDT documented in this encounter Discharge Summaries * Lea Green MD - 01/31/2025 5:32 PM CDT [facility] Tiffany Sexton 74 y.o. female 1950 CSN: [id number] Date of Admission: 01/12/2025 Date of Discharge: 01/31/2025 LOS: 19 days Discharging Physician: Lea Green MD PCP: Non-Staff, Physician Code Status at Discharge: Full Code Dispo: Home Labs and studies from this hospitalization needing follow up: CBC and Comprehensive Metabolic Panel (CMP) in 1 week Abnormal Imaging: CT abdomen without bowel obstruction. Follow up with PCP: Follow-up: You must follow up with Non-Staff, Physician in 3-5 days Follow up with Consultants: None Discharge Condition: improving Primary Discharge Diagnosis: C. difficile colitis Other Active medical issues also addressed during this admission: Active Hospital Problems Diagnosis Anorexia Vitamin D deficiency Fever Confusion A-fib (CMS/HCC) Elevated troponin Chest discomfort UTI (urinary tract infection) Acute C. difficile colitis Colostomy status (CMS/HCC) Protein-calorie malnutrition, moderate Generalized abdominal pain Resolved Hospital Problems No resolved problems to display. HOSPITAL COURSE: Please see H and P for full details on admission, symptoms and initial care. Tiffany Sexton, a 74-year-old female with a history of diverticulitis, colovesical fistula with colostomy, atrial fibrillation, hypertension, GERD, and prior protein-calorie malnutrition, was admitted with acute C. difficile colitis following transfer for altered mental status and lethargy. The diagnosis of C. difficile colitis was established based on clinical presentation and prior records, with additional evaluation including abdominal CT (no obstruction) and chest CT angiogram (no pulmonary embolism). She was initially managed with fidaxomicin and IV antibiotics, with subsequent transition to oral therapy as tolerated. 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 She required nasogastric tube feeding, which was later transitioned to a percutaneous endoscopic gastrostomy (PEG) tube placed by interventional radiology on 01/24 due to ongoing inability to meet nutritional needs orally. Tube feeding regimens were adjusted to nocturnal and then intermittent bolus feeds to optimize tolerance and support nutritional goals. Her hospital course was further complicated by episodes of fever and transient encephalopathy, for which she underwent cardona-cultures, chest and abdominal imaging, and was empirically treated with vancomycin and cefepime; blood cultures remained negative and her mentation returned to baseline after re solution of fever. She also experienced mild oropharyngeal dysphagia, confirmed by modified barium swallow, with recommendations for a dental soft diet and thin liquids with compensatory strategies; however, her oral intake remained minimal due to anorexia and nausea. Additional active issues included chronic atrial fibrillation managed with a beta-mike and apixaban, which was held abbey-procedurally for PEG placement and then resumed. She had a history of elevated troponin without chest pain and a stable echocardiogram, and no acute cardiac events occurred during admission. Her colostomy remained functional, though she developed peristomal erythema and required ostomy nurse consultation for skin care and appliance management. She also developed bilateral gluteal moisture-associated dermatitis, managed with topical therapy and pressure injury prevention measures. Throughout her stay, she demonstrated moderate cognitive impairment and required supervision for activities of daily living, with occupational and physical therapy assessments supporting the need forskilled nursing or 24-hour assistance at discharge. She was also noted to have vitamin D deficiencyand persistent hypokalemia, both of which were addressed during her admission. At the time of discharge planning, her principal issues were resolving C. difficile colitis, ongoing moderate protein-calorie malnutrition managed with PEG tube feeding, mild oropharyngeal dysphagia,and functional decline requiring assistance with mobility and self-care. She was medically stable for discharge with home health services, as her family was unable to support the co-pay for [facility] facility placement. Her code status remained full throughout the admission. PCP COMMUNICATION : Non-Staff, Physician via Epic communication MEDICATION CHANGES (significant): MEDICATION RECONCILIATION: Current and discharge medications reviewed and reconciled: Yes Consultants: IP CONSULT TO NUTRITION SERVICES IP CONSULT TO IV TEAM IP CONSULT TO IV TEAM IP CONSULT TO SUPPORTIVE/PALLIATIVE CARE IP CONSULT TO PASTORAL SERVICES IP CONSULT TO IV TEAM IP CONSULT TO WOUND/SKIN CARE TEAM IP CONSULT TO NUTRITION SERVICES Procedures performed: DISCHARGE MEDICATIONS: Medication List START taking these medications cholecalciferol (Vitamin D3) 125 mcg (5,000 unit) Capsule 1 Capsule (5,000 Units) by G Tube route daily starting on 02/01/25. Start taking on: February 01, 2025 Signed by: Dr. Cisco Green Quantity: 30 Capsule Refills: 3 Kangaroo Deluxe EZ Pump Set Vital AF - Recommended feeding time 2000 to 0800. Amount Ordered DIET TUBE FEEDING Elemental 1.2,; G-tube; Feeding Method: Intermittent/Cyclic; Goal Volume in mL/hour: 60; Feeding Duration in Hours: 12; Water Flush: 250 q12hr Signed by: Dr. Cisco Green Quantity: 1 Each Refills: PRN Generic drug: Feeding Container & Pump Set multivitamin with folic acid 400 mcg Tablet tablet Take 1 Tablet by mouth daily. Start taking on: February 01, 2025 Signed by: Dr. Cisco Green Quantity: 30 Tablet Refills: 0 saccharomyces boulardii 250 mg Capsule Commonly known as: FLORASTOR 1 Capsule (250 mg) by G Tube route 2 times daily. Signed by: Dr. Cisco Green Quantity: 60 Capsule Refills: 2 vancomycin 50 mg/mL oral solution Commonly known as: FIRVANQ Take 2.5 mL (125 mg) by G Tube route daily for 14 days. *Discard remainder after 14 days* Signed by: Dr. Cisco Green Quantity: 150 mL Refills: 0 CONTINUE taking these medications acetaminophen 325 mg tablet Commonly known as: TYLENOL Take 2 Tablets (650 mg) by mouth every 6 hours as needed for Other (See Comment) (See admin instructions). Signed by: Physician Margarine Maker Nick Alvarez Refills: 0 apixaban 5 mg tablet Commonly known as: ELIQUIS Take 5 mg by mouth 2 times daily. Refills: 0 artificial lubricant 94-3 % ointment Commonly known as: GENTEAL PM Administer 0.25 Inches in both eyes every 12 hours. Signed by: Physician Margarine Maker Nick Alvarez Refills: 0 atenoloL 25 mg tablet Commonly known as: TENORMIN Take 0.5 Tablets (12.5 mg) by mouth daily. Signed by: Dr. Star Gregory Refills: 0 dicyclomine 10 mg capsule Commonly known as: BENTYL Take 1 Capsule (10 mg) by mouth 4 times daily as needed for abdominal pain Signed by: Dr. Candis Calix Quantity: 14 Capsule Refills: 0 droNABinol 2.5 mg capsule Commonly known as: Marinol Take 1 Capsule (2.5 mg) by mouth 2 times daily. Signed by: Dr. Star Gregory Refills: 0 guaiFENesin 100 mg/5 mL solution Commonly known as: ROBITUSSIN Take 15 mL (300 mg) by mouth every 6 hours. Signed by: Physician Assistant Nick Alvarez Refills: 0 HYDROcodone-acetaminophen 5-325 mg tablet Commonly known as: NORCO Take 1 Tablet by mouth every 6 hours as needed for Pain. Max Daily Amount: 4 Tablets Signed by: Dr. Jessee Golden Quantity: 20 Tablet Refills: 0 ipratropium-albuteroL 0.5 mg-3 mg(2.5 mg base)/3 mL Solution for Nebulization Commonly known as: DUONEB Take 3 mL by inhalation every 6 hours as needed for Shortness of Breath. Signed by: Physician Assistant Nick Alvarez Refills: 0 miconazole 2 % Cream Commonly known as: JOAN,MICOTIN,REMEDY AF Apply to affected area 2 times daily. Signed by: Physician Assistant Nick Alvarez Refills: 0 ondansetron 4 mg Tablet, Rapid Dissolve Commonly known as: ZOFRAN ODT Take 1 Tablet (4 mg) by mouth every 8 hours as needed for Nausea/Emesis. Dissolve tablet on top of tongue, then swallow with saliva. Signed by: Physician Assistant Nick Alvarez Refills: 0 polyethylene glycol 17 gram Powder in Packet Commonly known as: MIRALAX Take 1 Packet (17 Grams) by mouth 1 time daily as needed for Constipation. Signed by: Dr. Candis Calix Refills: 0 scopolamine 1 mg/72 hr patch Commonly known as: TRANSDERM-SCOP Apply 1 Patch to skin as directed every third day. Signed by: Dr. Star Gregory Refills: 0 zinc OXIDE-cod liver oil 40 % Paste Commonly known as: Desitin Apply to affected area see administration instructions. Signed by: Dr. Candis Calix Quantity: 28 Gram Refills: 0 STOP taking these medications docusate sodium 50 mg/5 mL solution Commonly known as: COLACE metoclopramide HCl 10 mg tablet Commonly known as: REGLAN Where to Get Your Medications These medications were sent to [facility] [address] [address] Hours: Thursday - Thursday: 7 am - 9 pm; Thursday - Thursday: 8 am - 4 pm cholecalciferol (Vitamin D3) 125 mcg (5,000 unit) Capsule Kangaroo Deluxe EZ Pump Set multivitamin with folic acid 400 mcg Tablet tablet saccharomyces boulardii 250 mg Capsule vancomycin 50 mg/mL oral solution No future appointments. Activity level: up as tolerated Diet: DIET GENERAL Level 0 Thin,; Soft, Effective Now DIET SUPPLEMENT GEN ADULT TID Diet Tube Feeding DIET TUBE FEEDING Elemental 1.2,; G-tube; Feeding Method: Bolus; Feeds per Day: 6; Water Flush: 50 ml before and after each TF Diet Tube Feeding Wound Care: Ostomy care, PEG care DISCHARGE EXAM: BP 117/56 (BP Location: Right arm, Patient Position (BP): Sitting) Pulse 78 Temp 97.8 ??F (36.6??C) (Temporal) Resp 18 Ht 5' 6 (1.676 m) Wt 69.9 kg (154 lb) SpO2 98% BMI 24.86 kg/m?? Last documented weight: Weight: 69.9 kg (154 lb) (01/28/25426) General: alert, in no distress Neurologic: Grossly normal HEENT: atraumatic, Normocephalic, without obvious abnormality Lungs: clear to auscultation bilaterally, normal respiratory effort Heart: normal rate, regular rhythm, normal S1, S2, no murmurs, rubs, clicks or gallops Abdomen: Ostomy and PEG present. Soft, mild right abdominal tenderness without rebound bowel soundsnormal. No masses, no organomegaly. Extremities: extremities normal, atraumatic, no cyanosis or edema, intact distal pulses, moves all extremities equally, no edema, redness or tenderness in the calves or thighs, normal strength, normal tone Skin: negative Home Healthcare Is this patient being discharged with Home Health? Yes Physician Documentation of the Face to Face Encounter (1) I certify that I, had a Face to Face Encounter with this patient on: 01/31/2025 (2) The encounter with the patient was in whole, or in part, for the following medical condition/s,which is the primary reason for home health care and support medical necessity - please complete condition & necessity: C. difficile colitis and malnutrition (3) I certify that, based on my findings, the following services for this patient are medically necessary home health services RESIDENTIAL: my CLINICAL FINDINGS support the need because the patient presents with the need for complex care plan management with co-morbidities and a high readmission risk, PHYSICAL THERAPY: my CLINICAL FINDINGS support the need because the patient presents with difficulties with ambulation requiring gait training and poor endurance requiring therapeutic conditioning program (4) Further, I certify that my clinical findings support that this patient is HOMEBOUND because of illness or injury the patient requires a supportive device such as crutches, cane, wheelchair, walker, special transportation or the assistance of another person in order to leave their place of residence This patient presents with normal inability to leave the home. Leaving the home requires a considerable and taxing effort due to unsteady gait and increased high risk for falls and inability to negotiate stairs in/out of residence /no:64} Total time spent on discharge services today including examining and educating the patient and no available family members, writing prescriptions and reviewing the discharge medication list, documenting this discharge summary and coordinating outpatient care and follow up required > 30 minutes. documented in this encounter Discharge Instructions * Discharge Instructions* Radha Wright RN - 01/31/2025 1:15 PM CDT [facility] Discharge Instructions Discharge to: home with [facility] Symptoms/Diagnosis: C. difficile colitis Porcedures Performed, if any: Labs and studies from this hospitalization needing follow up: Per PCP Follow up PCP Please schedule a follow up appointment with PCP, Non-Staff, Physician Additional Problems: Active Hospital Problems Diagnosis Vitamin D deficiency Fever Confusion A-fib (CMS/[facility]) Elevated troponin Chest discomfort UTI (urinary tract infection) Acute C. difficile colitis Colostomy status (CMS/HCC) Protein-calorie malnutrition, moderate Resolved Hospital Problems No resolved problems to display. Code Status: Full Code Labs: Recent Labs 01/29/25 0604 01/30/25 0518 01/31/25 1027 WBC 10.7 8.2 10.5 HCT 31.2* 31.1* 33.4* PLT 430 403 405 No results for input(s): NA , K , CL , CO2 , CA , BUN , CREAT , GLUCOSE in the last 72 hours. No results for input(s): TOTALPROTEIN , ALBUMIN , BILITOTAL , ALKPHOS , AST , ALT in the last 72 hours. No results for input(s): INR , PT in the last 72 hours. Invalid input(s): PTT Activity level: up as tolerated Diet: general diet. bolus TF. Recommend bolus TF of Vital AF 1 carton (240 ml) given 6 X per day with 50 ml water flush before and after each TF. Recommended feeding times 0600, 0900, 1200, 1500, 1800, 2100. This will provide 1704 calories, 107 g protein, 1752 ml water (TF and flushes) Wound Care: Bilateral gluteals- -Apply Triad, nickel thick, to wound at least two times a day and prn. Reapply as needed to maintain thick layer. Remove top soiled layer, do not scrub off. Remove using perineal lotion cleanser spray Communicable Disease: Other Comments: Follow up in the Emergency Room for any recurrence or worsening of admission concerns, chest pain, palpitations, shortness of breath, coughing blood, nausea, vomiting, diarrhea, fever, chills, bleeding, bloody or tarry stools, change to urine or bowel output Contact hospitalist office [phone] for questions if patient is discharged by the [facility] Hospitalist group Contact [facility] at [phone] if the patient needs a direct admission documented in this encounter Medications at Time of Discharge Feeding Container & Pump Set (Gerson Hitchcock EZ Pump Set) Vital AF - Recommended feeding time 2000 to 0800. Amount Ordered DIET TUBE FEEDING Elemental 1.2,; G-tube; Feeding Method: Intermittent/Cyclic ; Goal Volume in mL/hour: 60; Feeding Duration in Hours: 12; Water Flush: 250 q12hr 1 Each 5 cholecalciferol, Vitamin D3, 125 mcg (5,000 unit) Capsule 1 Capsule (5,000 Units) by G Tube route daily starting on 02/01/25. 30 Capsule 3 5 multivitamin with folic acid 400 mcg Tablet tablet Take 1 Tablet by mouth daily. 30 Tablet 5 saccharomyces boulardii (FLORASTOR) 250 mg Capsule 1 Capsule (250 mg) by G Tube route 2 times daily. 60 Capsule 2 5 vancomycin (FIRVANQ) 50 mg/mL oral solution Take 2.5 mL (125 mg) by G Tube route daily for 14 days. *Discard remainder after 14 days* 150 mL 5 atenoloL (TENORMIN) 25 mg tablet Take 0.5 Tablets (12.5 mg) by mouth daily. 5 scopolamine (TRANSDERM-SCOP) 1 mg/72 hr patch Apply 1 Patch to skin as directed every third day. 5 droNABinol (Marinol) 2.5 mg capsuleIndication s:Protein-calorie malnutrition, moderate Take 1 Capsule (2.5 mg) by mouth 2 times daily. 5 HYDROcodone-aceta minophen (NORCO) 5-325 mg tabletIndications :Postoperative abdominal pain Take 1 Tablet by mouth every 6 hours as needed for Pain. Max Daily Amount: 4 Tablets 20 Tablet 5 apixaban (ELIQUIS) 5 mg tablet Take 5 mg by mouth 2 times daily. polyethylene glycol (MIRALAX) 17 gram Powder in Packet Take 1 Packet (17 Grams) by mouth 1 time daily as needed for Constipation. 5 zinc OXIDE-cod liver oil (Desitin) 40 % Paste Apply to affected area see administration instructions. 28 Gram 5 dicyclomine (BENTYL) 10 mg capsule Take 1 Capsule (10 mg) by mouth 4 times daily as needed for abdominal pain 14 Capsule 5 acetaminophen (TYLENOL) 325 mg tablet Take 2 Tablets (650 mg) by mouth every 6 hours as needed for Other (See Comment) (See admin instructions). 5 artificial lubricant (GENTEAL PM) 94-3 % ointment Administer 0.25 Inches in both eyes every 12 hours. 5 guaiFENesin (ROBITUSSIN) 100 mg/5 mL solution Take 15 mL (300 mg) by mouth every 6 hours. 5 ipratropium-albut Brandon (DUONEB) 0.5 mg-3 mg(2.5 mg base)/3 mL Solution for Nebulization Take 3 mL by inhalation every 6 hours as needed for Shortness of Breath. 5 miconazole (JOAN,MICOTIN,REM FELICIANO AF) 2 % Cream Apply to affected area 2 times daily. 5 ondansetron (ZOFRAN ODT) 4 mg Tablet, Rapid Dissolve Take 1 Tablet (4 mg) by mouth every 8 hours as needed for Nausea/Emesis. Dissolve tablet on top of tongue, then swallow with saliva. 5 documented as of this encounter Progress Notes * Radha Graf RN - 01/31/2025 7:15 PM CDT Pt assisted to w/c per day team with transport to D/C home. All personal belongings taken with pt. Alert and ambulated to W/C. IV access removed during day shift. * Nevin Saba RD - 01/31/2025 2:27 PM CDT Nutritional Status/Recommendations/Plan for Follow up: Request for bolus TF. Recommend bolus TF of Vital AF 1 carton (240 ml) given 6 X per day with 50 mlwater flush before and after each TF. Recommended feeding times 0600, 0900, 1200, 1500, 1800, 2100. This will provide 1704 calories, 107 g protein, 1752 ml water (TF and flushes). Estimated Needs: Estimated Energy Target: 3748-4920 (01/12/25 1301) Estimated Protein Target: 70-100 (01/12/25 1301) Estimated Fluid Target : 5947-1733 (01/12/25 1301) Nutrition Energy Formula: Calories per kilogram (01/12/25 1301) Weight Used for Formula: Adjusted body weight (68 kg) (01/12/25 1301) Current diet/nutrition support: DIET GENERAL Level 0 Thin,; Soft, Effective Now DIET TUBE FEEDING Elemental 1.2,; G-tube; Feeding Method: Intermittent/Cyclic; Goal Volume in mL/hour: 60; Feeding Duration in Hours: 12; Water Flush: 250 q12hr DIET SUPPLEMENT GEN ADULT TID Diet Tube Feeding Food/Meal: Dinner (01/29/25 1700),Intake (%): (!) 0% (01/29/25 1700) Oral Supplement Type: Complete oral supplement-adult (01/28/25 1630) Weight status/changes: Height: 5' 6 (167.6 cm) (01/25/25 1045) Weight: 69.9 kg (154 lb) (01/28/25 0427) Last seven weights (if available) from 01/03/25 1428 to 01/31/25 1427 (Last 7 readings): Weight Weight Method 01/28/25 0427 69.9 kg (154 lb) Actual 01/27/25 0500 72.1 kg (158 lb 15.2 oz) Actual 01/25/25 1045 69.6 kg (153 lb 7 oz) Actual 01/24/25 0457 69.4 kg (153 lb) Actual 01/23/25 0500 78.4 kg (172 lb 13.5 oz) Actual 01/20/25 0543 80.1 kg (176 lb 9.6 oz) Actual Admission:Weight: 80.1 kg (176 lb 9.6 oz) (01/20/25 0543)Weight Method: Actual (01/20/25 0543) Body mass index is 24.86 kg/m??. 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) (01/12/25 130) Percentage of Energy: < or equal to 50% for > or equal to 5 days (severe-acute) (01/12/25 130) Percentage of Weight Loss: Unable to assess (01/12/25 130) Additional assessment indices: Alverto Score: 16 (01/31/25 0700) Last Bowel Movement (mm/dd/yyyy): 01/29/25 (01/29/25 0900) Stool Consistency - Reference [place] Stool Chart: liquid - (type 7) (01/29/25 2100) Bowel Sounds: All Quadrants: hyperactive (01/29/25 0400) Allergies Allergies Allergen Reactions Morphine Hives and Hallucination Labs: Lab Results Component Value Date/Time NA 142 01/28/2025 05:05 AM K 3.9 01/28/2025 05:05 AM CL 103 01/28/2025 05:05 AM CO2 26 01/28/2025 05:05 AM CA 9.2 01/28/2025 05:05 AM BUN 10 01/28/2025 05:05 AM CREAT 0.40 (L) 01/28/2025 05:05 AM GLUCOSE 118 (H) 01/28/2025 05:05 AM TOTALPROTEIN 5.0 (L) 01/13/2025 01:40 PM ALBUMIN 3.5 01/13/2025 01:40 PM BILITOTAL 0.6 01/13/2025 01:40 PM ALKPHOS 62 01/13/2025 01:40 PM AST 31 01/13/2025 01:40 PM ALT 9 01/13/2025 01:40 PM ANIONGAP 13 01/28/2025 05:05 AM No results found for: HGBA1C , [id number] Lab Results Component Value Date/Time RDW 20.0 (H) 01/31/2025 10:27 AM Lab Results Component Value Date/Time CRP 46.3 (H) 10/26/2024 04:51 AM Lab Results Component Value Date/Time MG 1.9 01/25/2025 04:49 AM Lab Results Component Value Date/Time CA 9.2 01/28/2025 05:05 AM PO4 2.3 (L) 01/19/2025 04:44 AM Lab Results Component Value Date/Time VITAMINDTO 11 (L) 01/24/2025 08:02 PM No results found for: [id number] No results found for: FOLATE , FOLATERBC No results found for: ZINC * Natali Negrete RN - 01/31/2025 12:36 PM CDT Confirmed with [facility] ([facility]), they are able to accept and will provide family education onnightly Tube Feed. Nursing to send home some tube feed formula to hold patient over until [facility] can order. Updated MD, FABIAN and Bedside nurse. 01/31/25 1235 Final Discharge Arrangements Final Discharge Disposition Home Health Follow-up appointments scheduled? PCP Services Arranged For Discharge Home health;Occupational therapy;Physical therapy;Other (Comment) (tube feed) Agency Name [facility] , fax [phone] Date Of Pick-Up 01/31/25 Copy of this transfer form will be sent with patient along with: AVS;Pertinent Medical Records Addendum @ 1411, for son/DPREGIS Johnson and updated granddaughter Maame, via phone that [facility] is set up and that MD has placed DC for patient to go home today. Advised Maame that message was left for her Uncle Alex * Lea Green MD - 01/31/2025 9:27 AM CDT Images from the original note were not included. [facility] Hospitalist/Internal Medicine Progress note LOS: LOS: 19 days HOSPITAL COURSE SUMMARY: 74 y/o female with perforated diverticulitis s/p colostomy, recent history of C. Difficile status post deficid transferred from OSH for AMS, lethargy, C Diff colitis Patient reportedly has CT of the abdomen pelvis showing no obstruction. Patient reportedly had CT angiogram of the chest showing no pulmonary embolism 01/14- off cardizem drip. On PO atenolol. HR in 80's . Encourage PO. Replete lytes 01/15- increase activity . Encourage PO . PT 01/16- hold tube feeds during day and encourage PO . Increase activity 01/17- removed NG tube X3 and concerned she might pull out peg .. Patient states she would like to eat hamburger . If PO intake gets better plan to d/c NG tube and feeds which she would like to. Discussed with staff . Might need Snf on d/c 01/18: Nocturnal NG tube feeds, continue to increase PO intake. SNF placement in process 01/19: Still minimal PO intake. I spoke to her son, he is wanting to give her more time before placing G tube, he will be coming up on Thursday to discuss further with her on eating vs g tube. We discussed NG tube is not a permanent solution. We also discussed G tube vs hospice care, this is not something they would want to pursue at this time. 01/20: Little to no intake yesterday. Son to come to bedside tomorrow to discuss g tube. Replace potassium 01/21: Son to meet with his mom at bedside today and will update on care plan of G tube vs hospice care 01/22: Fever and change in mentation last night. Cardona cultures, CXR and abd xr done stat without any clear infection source found. Started on IV vanc and cefepime. Blood cultures still pending, Mentation back to normal after fever resolved with Tylenol. Son was able to visit last night, patient and family both wish to pursue G tube placement tomorrow. 01/23: Fevers have resolved. Discussed feeding tube with IR, will need to be done tomorrow due to Eliquis use. I called son, no answer. 01/24: G tube placement today. Likely dc tomorrow if tolerating tube feeds. 01/25 Pt queasy with abd pain. Got PEG yest. Resume Eliquis. 01/26 Pt feels better but does not want to eat, is jose TF and drinking small amt liquid. 01/27 still no appetite, will see about nocturnal feedings. air operations manager is still having difficulty determining the patient's insurance information. 01/28 Pt devel L side abd pain but CT was OK. She was changed to TF at HS only. She states she might try some oatmeal. 01/29 Pt is doing better and up in chair, still not eating. Noc TF. 01/30 Pt up in chair. Abd feels OK but still has anorexia. Looks depressed, might try Remeron but she has incr QT. 01/31 Pt says she woke up with sore throat, then while I was speaking with her got a R side abd pain. SUBJECTIVE: The patient is seen resting in bed. Still no appetite. Remeron low dose started yest. OBJECTIVE: Temp (24hrs), Av.6 ??F (36.4 ??C), Min:97.2 ??F (36.2 ??C), Max:98.2 ??F (36.8 ??C) BP 124/78 (BP Location: Left arm, Patient Position (BP): Supine) Pulse 92 Temp 97.8 ??F (36.6 ??C) (Temporal) Resp 18 Ht 5' 6 (1.676 m) Wt 69.9 kg (154 lb) SpO2 96% BMI 24.86 kg/m?? Intake/Output Summary (Last 24 hours) at 01/31/2025 09 Last data filed at 01/31/2025 0848 Gross per 24 hour Intake 739 ml Output 150 ml Net 589 ml Last documented weight: Weight: 69.9 kg (154 lb) (01/28/25 0427) EXAM: General: Awake, alert, NAD Neurologic: Grossly normal. Oriented X3. HEENT: atraumatic, Normocephalic, without obvious abnormality Lungs: clear to auscultation bilaterally, normal respiratory effort Heart: normal rate and regular rhythm, S1 and S2 normal Abdomen: soft, mild R side tenderness. Bowel sounds present . Ostomy less watery output, brown. Extremities: intact distal pulses, moves all extremities equally Skin: Warm and dry LABORATORY: Recent Labs 01/29/25 0604 01/30/25 0518 WBC 10.7 8.2 HGB 10.2* 10.1* HCT 31.2* 31.1* PLT 430 403 No results for input(s): NA , K , CL , CO2 , CA , BUN , CREAT , GLUCOSE in the last 72 hours. No results for input(s): TOTALPROTEIN , ALBUMIN , BILITOTAL , ALKPHOS , AST , ALT in the last 72 hours. No results for input(s): INR , PT in the last 72 hours. Invalid input(s): PTT No results for input(s): CPK , CKMB , TROPONIN in the last 72 hours. Diagnostic testing reviewed by me: Outside CT Medications reviewed by me ASSESSMENT AND PLAN: Principal Problem: Acute C. difficile colitis Active Problems: Protein-calorie malnutrition, moderate Colostomy status (CMS/[facility]) Confusion A-fib (CMS/[facility]) Elevated troponin Chest discomfort UTI (urinary tract infection) Fever Vitamin D deficiency Plan Fever, resolved - Occurred 01/21, no clear source for infection - Cardona cultured, so far no growth. CXR and UA do not indicate obvious infection source - Will await final cultures but will do a 5 days course then stop antibiotics. This will increase duration of dificid need. Stop dificid tosay. - CXR had pl effus and poss opacity, rechk. Would like to get off ATB. Chest x-ray read as negative. C diff colitis > 2 wks dificid completed, will stop. - Recent perforated diverticulitis status post colostomy - Colostomy in place but there is notable erythema surrounding wound - Continue consult for erythema, appreciate assistance - Outpatient surgery follow-up Ct is up to date. Moderate protein calorie malnutrition - Poor p.o. intake - G-tube placed. HS feedings. History of A-fib - Continue beta-mike - Eliquis. Elevated troponins at time of admission - Mildly elevated and troponin trend was flat - No chest pain - Echo from November 2024 reviewed - Monitor at this time Hypokalemia - Redosed today, magnesium was 1.9. Vit D def. changed back to p.o. dose. May have situational depression, chk new EKG before any meds. QT borderline high. MPCMN - G tube placement Nutrition Status: Malnutrition Nutrition Diagnosis: Moderate protein-calorie malnutrition Provider Assessment/Plan: Symptoms/Signs/Physical Exam: Muscle Wasting, Poor Appetite, Eating Poorly, Weakness, and Fatigue Etiology: Chronic illness Nutrition Treatment Plan: Supplements as needed, NG tube feeds - Current Diet and/or Nutritional Supplementation ordered: DIET GENERAL Level 0 Thin,; Soft, Effective Now DIET TUBE FEEDING Elemental 1.2,; G-tube; Feeding Method: Intermittent/Cyclic; Goal Volume in mL/hour: 60; Feeding Duration in Hours: 12; Water Flush: 250 q12hr DIET SUPPLEMENT GEN ADULT TID - Daily weights Impact of Malnutrition on patient condition and outcomes: Increased risk of infection, Delayed recovery, Decreased activity tolerance and reduced mobility , Poor wound healing, Increased readmission risk, and Increased hospitalization length DVT prevention: eliquis Disposition- Anticipated Disposition Location: Family now determined they cannot do copay, she will have to go home, thus family will need to learn TF pump and Gtube care. Anticipated Disposition home CODE STATUS: Full Code Visit: dru Green MD 01/31/2025, 9:27 AM * Kaya De Santiago SLP - 01/31/2025 8:54 AM CDT Attempted to see Tiffany Sexton for Speech-Language Pathology Swallow follow-up. Patient/Family chose not to participate in therapy due to sore throat. Pt declined PO trials even with encouragement. Breakfast tray untouched. Will continue with attempts for established plan of care. Thank you, Kaya De Santiago M.S. [facility]-[employer] TECHNOLOGIST Acute Speech Therapy Charge Zone Phone #[phone] Acute Speech Therapy Charge Pager #[phone] * Lea Green MD - 01/30/2025 12:59 PM CDT Images from the original note were not included. [facility] Hospitalist/Internal Medicine Progress note LOS: LOS: 18 days HOSPITAL COURSE SUMMARY: 74 y/o female with perforated diverticulitis s/p colostomy, recent history of C. Difficile status post deficid transferred from OSH for AMS, lethargy, C Diff colitis Patient reportedly has CT of the abdomen pelvis showing no obstruction. Patient reportedly had CT angiogram of the chest showing no pulmonary embolism 01/14- off cardizem drip. On PO atenolol. HR in 80's . Encourage PO. Replete lytes 01/15- increase activity . Encourage PO . PT 01/16- hold tube feeds during day and encourage PO . Increase activity 01/17- removed NG tube X3 and concerned she might pull out peg .. Patient states she would like to eat hamburger . If PO intake gets better plan to d/c NG tube and feeds which she would like to. Discussed with staff . Might need Snf on d/c 01/18: Nocturnal NG tube feeds, continue to increase PO intake. SNF placement in process 01/19: Still minimal PO intake. I spoke to her son, he is wanting to give her more time before placing G tube, he will be coming up on Thursday to discuss further with her on eating vs g tube. We discussed NG tube is not a permanent solution. We also discussed G tube vs hospice care, this is not something they would want to pursue at this time. 01/20: Little to no intake yesterday. Son to come to bedside tomorrow to discuss g tube. Replace potassium 01/21: Son to meet with his mom at bedside today and will update on care plan of G tube vs hospice care 01/22: Fever and change in mentation last night. Cardona cultures, CXR and abd xr done stat without any clear infection source found. Started on IV vanc and cefepime. Blood cultures still pending, Mentation back to normal after fever resolved with Tylenol. Son was able to visit last night, patient and family both wish to pursue G tube placement tomorrow. 01/23: Fevers have resolved. Discussed feeding tube with IR, will need to be done tomorrow due to Eliquis use. I called son, no answer. 01/24: G tube placement today. Likely dc tomorrow if tolerating tube feeds. 01/25 Pt queasy with abd pain. Got PEG yest. Resume Eliquis. 01/26 Pt feels better but does not want to eat, is jose TF and drinking small amt liquid. 01/27 still no appetite, will see about nocturnal feedings. air operations manager is still having difficulty determining the patient's insurance information. 01/28 Pt devel L side abd pain but CT was OK. She was changed to TF at HS only. She states she might try some oatmeal. 01/29 Pt is doing better and up in chair, still not eating. Noc TF. 01/30 Pt up in chair. Abd feels OK but still has anorexia. Looks depressed, might try Remeron but she has incr QT. SUBJECTIVE: The patient is seen resting in bed, nurse present. She is awake and alert, no new concerns. OBJECTIVE: Temp (24hrs), Av ??F (36.7 ??C), Min:97.1 ??F (36.2 ??C), Max:98.7 ??F (37.1 ??C) BP 109/73 (BP Location: Right arm, Patient Position (BP): Sitting) Pulse 92 Temp 97.1 ??F (36.2??C) (Temporal) Resp 18 Ht 5' 6 (1.676 m) Wt 69.9 kg (154 lb) SpO2 99% BMI 24.86 kg/m?? Intake/Output Summary (Last 24 hours) at 01/30/2025 1259 Last data filed at 01/29/2025 2100 Gross per 24 hour Intake 400 ml Output 250 ml Net 150 ml Last documented weight: Weight: 69.9 kg (154 lb) (01/28/25 8497) EXAM: General: Awake, alert, NAD Neurologic: Grossly normal. Oriented X3. HEENT: atraumatic, Normocephalic, without obvious abnormality Lungs: clear to auscultation bilaterally, normal respiratory effort Heart: normal rate and regular rhythm, S1 and S2 normal Abdomen: soft, NT, Bowel sounds present . Ostomy less watery output, appears similar to tube feedings Extremities: intact distal pulses, moves all extremities equally Skin: Warm and dry LABORATORY: Recent Labs 01/29/25 0604 01/30/25 0518 WBC 10.7 8.2 HGB 10.2* 10.1* HCT 31.2* 31.1* PLT 430 403 Recent Labs 01/28/25 0505 NA 142 K 3.9 CL 103 CO2 26 CA 9.2 BUN 10 CREAT 0.40* GLUCOSE 118* No results for input(s): TOTALPROTEIN , ALBUMIN , BILITOTAL , ALKPHOS , AST , ALT in the last 72 hours. No results for input(s): INR , PT in the last 72 hours. Invalid input(s): PTT No results for input(s): CPK , CKMB , TROPONIN in the last 72 hours. Diagnostic testing reviewed by me: Outside CT Medications reviewed by me ASSESSMENT AND PLAN: Principal Problem: Acute C. difficile colitis Active Problems: Protein-calorie malnutrition, moderate Colostomy status (CMS/HCC) Confusion A-fib (CMS/[facility]) Elevated troponin Chest discomfort UTI (urinary tract infection) Fever Vitamin D deficiency Plan Fever, resolved - Occurred 01/21, no clear source for infection - Cardona cultured, so far no growth. CXR and UA do not indicate obvious infection source - Will await final cultures but will do a 5 days course then stop antibiotics. This will increase duration of dificid need - D4/5 of antibiotics CXR had pl effus and poss opacity, rechk. Would like to get off ATB. Chest x-ray read as negative. C diff colitis - Continue Dificid - Recent perforated diverticulitis status post colostomy - Colostomy in place but there is notable erythema surrounding wound - Continue consult for erythema, appreciate assistance - Outpatient surgery follow-up CT repeated and neg. Moderate protein calorie malnutrition - Poor p.o. intake going yeah patient with cefepime - G-tube placed. HS feedings. History of A-fib - Continue beta-mike - Hold Eliquis for g tube, resuming Elevated troponins at time of admission - Mildly elevated and troponin trend was flat - No chest pain - Echo from November 2024 reviewed - Monitor at this time Hypokalemia - Redosed today, magnesium was 1.9. Vit D def. changed back to p.o. dose. May have situational depression, chk new EKG before any meds. MPCMN - G tube placement Nutrition Status: Malnutrition Nutrition Diagnosis: Moderate protein-calorie malnutrition Provider Assessment/Plan: Symptoms/Signs/Physical Exam: Muscle Wasting, Poor Appetite, Eating Poorly, Weakness, and Fatigue Etiology: Chronic illness Nutrition Treatment Plan: Supplements as needed, NG tube feeds - Current Diet and/or Nutritional Supplementation ordered: DIET GENERAL Level 0 Thin,; Soft, Effective Now DIET TUBE FEEDING Elemental 1.2,; G-tube; Feeding Method: Intermittent/Cyclic; Goal Volume in mL/hour: 60; Feeding Duration in Hours: 12; Water Flush: 250 q12hr DIET SUPPLEMENT GEN ADULT TID - Daily weights Impact of Malnutrition on patient condition and outcomes: Increased risk of infection, Delayed recovery, Decreased activity tolerance and reduced mobility , Poor wound healing, Increased readmission risk, and Increased hospitalization length DVT prevention: eliquis Disposition- Anticipated Disposition Location: SNF - does not appear finalized. D/w CM. Anticipated Disposition Timeframe: Stable when destination determined. Disposition Criteria: tolerating tube feeds Disposition Education Needed: C diff Disposition DME/Equipment Needs: TBD CODE STATUS: Full Code Visit: dru Green MD 01/30/2025, 12:59 PM * Cathie Contreras LPN - 01/29/2025 5:38 PM CDT Patient up in chair for all meals today. She was able to ambulate to the chair with minimal assist by this nurse. * Lea Green MD - 01/29/2025 1:35 PM CDT Images from the original note were not included. [facility] Hospitalist/Internal Medicine Progress note LOS: LOS: 17 days HOSPITAL COURSE SUMMARY: 74 y/o female with perforated diverticulitis s/p colostomy, recent history of C. Difficile status post deficid transferred from OSH for AMS, lethargy, C Diff colitis Patient reportedly has CT of the abdomen pelvis showing no obstruction. Patient reportedly had CT angiogram of the chest showing no pulmonary embolism 01/14- off cardizem drip. On PO atenolol. HR in 80's . Encourage PO. Replete lytes 01/15- increase activity . Encourage PO . PT 01/16- hold tube feeds during day and encourage PO . Increase activity 01/17- removed NG tube X3 and concerned she might pull out peg .. Patient states she would like to eat hamburger . If PO intake gets better plan to d/c NG tube and feeds which she would like to. Discussed with staff . Might need Snf on d/c 01/18: Nocturnal NG tube feeds, continue to increase PO intake. SNF placement in process 01/19: Still minimal PO intake. I spoke to her son, he is wanting to give her more time before placing G tube, he will be coming up on Thursday to discuss further with her on eating vs g tube. We discussed NG tube is not a permanent solution. We also discussed G tube vs hospice care, this is not something they would want to pursue at this time. 01/20: Little to no intake yesterday. Son to come to bedside tomorrow to discuss g tube. Replace potassium 01/21: Son to meet with his mom at bedside today and will update on care plan of G tube vs hospice care 01/22: Fever and change in mentation last night. Cardona cultures, CXR and abd xr done stat without any clear infection source found. Started on IV vanc and cefepime. Blood cultures still pending, Mentation back to normal after fever resolved with Tylenol. Son was able to visit last night, patient and family both wish to pursue G tube placement tomorrow. 01/23: Fevers have resolved. Discussed feeding tube with IR, will need to be done tomorrow due to Eliquis use. I called son, no answer. 01/24: G tube placement today. Likely dc tomorrow if tolerating tube feeds. 01/25 Pt queasy with abd pain. Got PEG yest. Resume Eliquis. 01/26 Pt feels better but does not want to eat, is jose TF and drinking small amt liquid. 01/27 still no appetite, will see about nocturnal feedings. air operations manager is still having difficulty determining the patient's insurance information. 01/28 Pt devel L side abd pain but CT was OK. She was changed to TF at HS only. She states she might try some oatmeal. 01/29 Pt is doing better and up in chair, still not eating. Noc TF. SUBJECTIVE: The patient is seen resting in bed, nurse present. She is awake and alert, no new concerns. OBJECTIVE: Temp (24hrs), Av.8 ??F (36.6 ??C), Min:97.1 ??F (36.2 ??C), Max:98.2 ??F (36.8 ??C) BP 118/69 (BP Location: Right arm, Patient Position (BP): Sitting) Pulse (!) 103 Temp 97.9 ??F (36.6 ??C) (Temporal) Resp 16 Ht 5' 6 (1.676 m) Wt 69.9 kg (154 lb) SpO2 95% BMI 24.86 kg/m?? Intake/Output Summary (Last 24 hours) at 01/29/2025 1335 Last data filed at 01/29/2025 0900 Gross per 24 hour Intake 60 ml Output 1150 ml Net -1090 ml Last documented weight: Weight: 69.9 kg (154 lb) (01/28/25 0427) EXAM: General: Awake, alert, NAD Neurologic: Grossly normal. Oriented X3. HEENT: atraumatic, Normocephalic, without obvious abnormality Lungs: clear to auscultation bilaterally, normal respiratory effort Heart: normal rate and regular rhythm, S1 and S2 normal Abdomen: soft, mod L tenderness, Bowel sounds present . Ostomy less watery output, appears similar to tube feedings Extremities: intact distal pulses, moves all extremities equally Skin: Warm and dry LABORATORY: Recent Labs 01/29/25 0604 WBC 10.7 HGB 10.2* HCT 31.2* PLT 430 Recent Labs 01/27/25 0612 01/28/25 0505 NA 142 142 K 3.8 3.9 CL 105 103 CO2 28 26 CA 9.0 9.2 BUN 8 10 CREAT 0.42* 0.40* GLUCOSE 146* 118* No results for input(s): TOTALPROTEIN , ALBUMIN , BILITOTAL , ALKPHOS , AST , ALT in the last 72 hours. No results for input(s): INR , PT in the last 72 hours. Invalid input(s): PTT No results for input(s): CPK , CKMB , TROPONIN in the last 72 hours. Diagnostic testing reviewed by me: Outside CT Medications reviewed by me ASSESSMENT AND PLAN: Principal Problem: Acute C. difficile colitis Active Problems: Protein-calorie malnutrition, moderate Colostomy status ([facility]) Confusion A-fib ([facility]/HCC) Elevated troponin Chest discomfort UTI (urinary tract infection) Fever Vitamin D deficiency Plan Fever, resolved - Occurred 01/21, no clear source for infection - Cardona cultured, so far no growth. CXR and UA do not indicate obvious infection source - Will await final cultures but will do a 5 days course then stop antibiotics. This will increase duration of dificid need - D4/5 of antibiotics CXR had pl effus and poss opacity, rechk. Would like to get off ATB. Chest x-ray read as negative. C diff colitis - Continue Dificid - Recent perforated diverticulitis status post colostomy - Colostomy in place but there is notable erythema surrounding wound - Continue consult for erythema, appreciate assistance - Outpatient surgery follow-up CT repeated and neg. Moderate protein calorie malnutrition - Poor p.o. intake going yeah patient with cefepime - G-tube placed. HS feedings. History of A-fib - Continue beta-mike - Hold Eliquis for g tube, resuming Elevated troponins at time of admission - Mildly elevated and troponin trend was flat - No chest pain - Echo from November 2024 reviewed - Monitor at this time Hypokalemia - Redosed today, magnesium was 1.9. Vit D def. changed back to p.o. dose. MPCMN - G tube placement Nutrition Status: Malnutrition Nutrition Diagnosis: Moderate protein-calorie malnutrition Provider Assessment/Plan: Symptoms/Signs/Physical Exam: Muscle Wasting, Poor Appetite, Eating Poorly, Weakness, and Fatigue Etiology: Chronic illness Nutrition Treatment Plan: Supplements as needed, NG tube feeds - Current Diet and/or Nutritional Supplementation ordered: DIET GENERAL Level 0 Thin,; Soft, Effective Now DIET TUBE FEEDING Elemental 1.2,; G-tube; Feeding Method: Intermittent/Cyclic; Goal Volume in mL/hour: 60; Feeding Duration in Hours: 12; Water Flush: 250 q12hr DIET SUPPLEMENT GEN ADULT TID - Daily weights Impact of Malnutrition on patient condition and outcomes: Increased risk of infection, Delayed recovery, Decreased activity tolerance and reduced mobility , Poor wound healing, Increased readmission risk, and Increased hospitalization length DVT prevention: eliquis Disposition- Anticipated Disposition Location: SNF - does not appear finalized. D/w CM. Anticipated Disposition Timeframe: Stable when destination determined. Disposition Criteria: tolerating tube feeds Disposition Education Needed: C diff Disposition DME/Equipment Needs: TBD CODE STATUS: Full Code Visit: donnie Green MD 01/29/2025, 1:35 PM * Cathie Contreras LPN - 01/29/2025 8:17 AM CDT Patient up in chair for breakfast with x2 assist and walker. * Francisco Ellis LPN - 01/28/2025 10:22 AM CDT Called dietary to order the pt tomato soup, grilled cheese, and strawberry yogurt. * Lea Green MD - 01/28/2025 10:12 AM CDT Images from the original note were not included. [facility] Hospitalist/Internal Medicine Progress note LOS: LOS: 16 days HOSPITAL COURSE SUMMARY: 74 y/o female with perforated diverticulitis s/p colostomy, recent history of C. Difficile status post deficid transferred from OSH for AMS, lethargy, C Diff colitis Patient reportedly has CT of the abdomen pelvis showing no obstruction. Patient reportedly had CT angiogram of the chest showing no pulmonary embolism 01/14- off cardizem drip. On PO atenolol. HR in 80's . Encourage PO. Replete lytes 01/15- increase activity . Encourage PO . PT 01/16- hold tube feeds during day and encourage PO . Increase activity 01/17- removed NG tube X3 and concerned she might pull out peg .. Patient states she would like to eat hamburger . If PO intake gets better plan to d/c NG tube and feeds which she would like to. Discussed with staff . Might need Snf on d/c 01/18: Nocturnal NG tube feeds, continue to increase PO intake. SNF placement in process 01/19: Still minimal PO intake. I spoke to her son, he is wanting to give her more time before placing G tube, he will be coming up on Thursday to discuss further with her on eating vs g tube. We discussed NG tube is not a permanent solution. We also discussed G tube vs hospice care, this is not something they would want to pursue at this time. 01/20: Little to no intake yesterday. Son to come to bedside tomorrow to discuss g tube. Replace potassium 01/21: Son to meet with his mom at bedside today and will update on care plan of G tube vs hospice care 01/22: Fever and change in mentation last night. Cardona cultures, CXR and abd xr done stat without any clear infection source found. Started on IV vanc and cefepime. Blood cultures still pending, Mentation back to normal after fever resolved with Tylenol. Son was able to visit last night, patient and family both wish to pursue G tube placement tomorrow. 01/23: Fevers have resolved. Discussed feeding tube with IR, will need to be done tomorrow due to Eliquis use. I called son, no answer. 01/24: G tube placement today. Likely dc tomorrow if tolerating tube feeds. 01/25 Pt queasy with abd pain. Got PEG yest. Resume Eliquis. 01/26 Pt feels better but does not want to eat, is jose TF and drinking small amt liquid. 01/27 still no appetite, will see about nocturnal feedings. air operations manager is still having difficulty determining the patient's insurance information. 01/28 Pt devel L side abd pain but CT was OK. She was changed to TF at HS only. She states she might try some oatmeal. SUBJECTIVE: The patient is seen resting in bed, nurse present. She is awake and alert, no new concerns. OBJECTIVE: Temp (24hrs), Av.6 ??F (36.4 ??C), Min:97.3 ??F (36.3 ??C), Max:97.9 ??F (36.6 ??C) BP 103/55 (BP Location: Right arm, Patient Position (BP): Lying left side) Pulse 66 Temp 97.5 ??F (36.4 ??C) (Temporal) Resp 18 Ht 5' 6 (1.676 m) Wt 69.9 kg (154 lb) SpO2 98% BMI 24.86kg/m?? Intake/Output Summary (Last 24 hours) at 01/28/2025 1012 Last data filed at 01/28/2025 0600 Gross per 24 hour Intake 936 ml Output 900 ml Net 36 ml Last documented weight: Weight: 69.9 kg (154 lb) (01/28/25 0427) EXAM: General: Awake, alert, NAD Neurologic: Grossly normal. Oriented X3. HEENT: atraumatic, Normocephalic, without obvious abnormality Lungs: clear to auscultation bilaterally, normal respiratory effort Heart: normal rate and regular rhythm, S1 and S2 normal Abdomen: soft, mod L tenderness, Bowel sounds present . Ostomy less watery output, appears similar to tube feedings Extremities: intact distal pulses, moves all extremities equally Skin: Warm and dry LABORATORY: Recent Labs 01/26/25 0350 WBC 5.8 HGB 9.7* HCT 30.8* PLT 357 Recent Labs 01/26/25 0350 01/27/25 0612 01/28/25 0505 NA 143 142 142 K 3.2* 3.8 3.9 CL 106 105 103 CO2 26 28 26 CA 8.8 9.0 9.2 BUN 6* 8 10 CREAT 0.44* 0.42* 0.40* GLUCOSE 123* 146* 118* No results for input(s): TOTALPROTEIN , ALBUMIN , BILITOTAL , ALKPHOS , AST , ALT in the last 72 hours. No results for input(s): INR , PT in the last 72 hours. Invalid input(s): PTT No results for input(s): CPK , CKMB , TROPONIN in the last 72 hours. Diagnostic testing reviewed by me: Outside CT Medications reviewed by me ASSESSMENT AND PLAN: Principal Problem: Acute C. difficile colitis Active Problems: Protein-calorie malnutrition, moderate Colostomy status (CMS/HCC) Confusion A-fib (CMS/HCC) Elevated troponin Chest discomfort UTI (urinary tract infection) Fever Vitamin D deficiency Plan Fever, resolved - Occurred 01/21, no clear source for infection - Cardona cultured, so far no growth. CXR and UA do not indicate obvious infection source - Will await final cultures but will do a 5 days course then stop antibiotics. This will increase duration of dificid need - D4/5 of antibiotics CXR had pl effus and poss opacity, rechk. Would like to get off ATB. Chest x-ray read as negative. C diff colitis - Continue Dificid - Recent perforated diverticulitis status post colostomy - Colostomy in place but there is notable erythema surrounding wound - Continue consult for erythema, appreciate assistance - Outpatient surgery follow-up CT repeated and neg. Moderate protein calorie malnutrition - Poor p.o. intake going yeah patient with cefepime - G-tube placed. HS feedings. History of A-fib - Continue beta-mike - Hold Eliquis for g tube, resuming Elevated troponins at time of admission - Mildly elevated and troponin trend was flat - No chest pain - Echo from November 2024 reviewed - Monitor at this time Hypokalemia - Redosed today, magnesium was 1.9. Vit D def. changed back to p.o. dose. [facility] - G tube placement Nutrition Status: Malnutrition Nutrition Diagnosis: Moderate protein-calorie malnutrition Provider Assessment/Plan: Symptoms/Signs/Physical Exam: Muscle Wasting, Poor Appetite, Eating Poorly, Weakness, and Fatigue Etiology: Chronic illness Nutrition Treatment Plan: Supplements as needed, NG tube feeds - Current Diet and/or Nutritional Supplementation ordered: DIET SUPPLEMENT GEN ADULT TID DIET GENERAL Level 0 Thin,; Soft, Effective Now DIET TUBE FEEDING Elemental 1.2,; G-tube; Feeding Method: Intermittent/Cyclic; Goal Volume in mL/hour: 60; Feeding Duration in Hours: 12; Water Flush: 250 q12hr - Daily weights Impact of Malnutrition on patient condition and outcomes: Increased risk of infection, Delayed recovery, Decreased activity tolerance and reduced mobility , Poor wound healing, Increased readmission risk, and Increased hospitalization length DVT prevention: eliquis Disposition- Anticipated Disposition Location: SNF - does not appear finalized. D/w CM. Anticipated Disposition Timeframe: Stable when destination determined. Disposition Criteria: tolerating tube feeds Disposition Education Needed: C diff Disposition DME/Equipment Needs: TBD CODE STATUS: Full Code Visit: Moderate Lea Green MD 01/28/2025, 10:12 AM * Lea Green MD - 01/27/2025 2:15 PM CDT Images from the original note were not included. [facility] Hospitalist/Internal Medicine Progress note LOS: LOS: 15 days HOSPITAL COURSE SUMMARY: 74 y/o female with perforated diverticulitis s/p colostomy, recent history of C. Difficile status post deficid transferred from OSH for AMS, lethargy, C Diff colitis Patient reportedly has CT of the abdomen pelvis showing no obstruction. Patient reportedly had CT angiogram of the chest showing no pulmonary embolism 01/14- off cardizem drip. On PO atenolol. HR in 80's . Encourage PO. Replete lytes 01/15- increase activity . Encourage PO . PT 01/16- hold tube feeds during day and encourage PO . Increase activity 01/17- removed NG tube X3 and concerned she might pull out peg .. Patient states she would like to eat hamburger . If PO intake gets better plan to d/c NG tube and feeds which she would like to. Discussed with staff . Might need Snf on d/c 01/18: Nocturnal NG tube feeds, continue to increase PO intake. SNF placement in process 01/19: Still minimal PO intake. I spoke to her son, he is wanting to give her more time before placing G tube, he will be coming up on Thursday to discuss further with her on eating vs g tube. We discussed NG tube is not a permanent solution. We also discussed G tube vs hospice care, this is not something they would want to pursue at this time. 01/20: Little to no intake yesterday. Son to come to bedside tomorrow to discuss g tube. Replace potassium 01/21: Son to meet with his mom at bedside today and will update on care plan of G tube vs hospice care 01/22: Fever and change in mentation last night. Cardona cultures, CXR and abd xr done stat without any clear infection source found. Started on IV vanc and cefepime. Blood cultures still pending, Mentation back to normal after fever resolved with Tylenol. Son was able to visit last night, patient and family both wish to pursue G tube placement tomorrow. 01/23: Fevers have resolved. Discussed feeding tube with IR, will need to be done tomorrow due to Eliquis use. I called son, no answer. 01/24: G tube placement today. Likely dc tomorrow if tolerating tube feeds. 01/25 Pt queasy with abd pain. Got PEG yest. Resume Eliquis. 01/26 Pt feels better but does not want to eat, is jose TF and drinking small amt liquid. 01/27 still no appetite, will see about nocturnal feedings. air operations manager is still having difficulty determining the patient's insurance information. SUBJECTIVE: The patient is seen resting in bed, nurse present. She is awake and alert, no new concerns. OBJECTIVE: Temp (24hrs), Av.4 ??F (36.3 ??C), Min:97 ??F (36.1 ??C), Max:97.8 ??F (36.6 ??C) BP 110/64 (BP Location: Right arm, Patient Position (BP): Supine) Pulse 90 Temp 97.8 ??F (36.6 ??C) (Temporal) Resp 19 Ht 5' 6 (1.676 m) Wt 72.1 kg (158 lb 15.2 oz) SpO2 99% BMI 25.66 kg/m?? Intake/Output Summary (Last 24 hours) at 01/27/2025 1415 Last data filed at 01/27/2025 1150 Gross per 24 hour Intake 510 ml Output 800 ml Net -290 ml Last documented weight: Weight: 72.1 kg (158 lb 15.2 oz) (01/27/25 0500) EXAM: General: Awake, alert, NAD Neurologic: Grossly normal. Oriented X3. HEENT: atraumatic, Normocephalic, without obvious abnormality Lungs: clear to auscultation bilaterally, normal respiratory effort Heart: normal rate and regular rhythm, S1 and S2 normal Abdomen: soft, mod gen tenderness, Bowel sounds present . Ostomy less watery output, appears similar to tube feedings Extremities: intact distal pulses, moves all extremities equally Skin: Warm and dry LABORATORY: Recent Labs 01/25/25 0449 01/26/25 0350 WBC 5.1 5.8 HGB 10.0* 9.7* HCT 31.0* 30.8* PLT 358 357 Recent Labs 01/25/25 0449 01/26/25 0350 01/27/25 0612 NA 140 143 142 K 3.0* 3.2* 3.8 CL 103 106 105 CO2 26 26 28 CA 8.4* 8.8 9.0 BUN 6* 6* 8 CREAT 0.49* 0.44* 0.42* GLUCOSE 121* 123* 146* No results for input(s): TOTALPROTEIN , ALBUMIN , BILITOTAL , ALKPHOS , AST , ALT in the last 72 hours. No results for input(s): INR , PT in the last 72 hours. Invalid input(s): PTT No results for input(s): CPK , CKMB , TROPONIN in the last 72 hours. Diagnostic testing reviewed by me: Outside CT Medications reviewed by me ASSESSMENT AND PLAN: Principal Problem: Acute C. difficile colitis Active Problems: Protein-calorie malnutrition, moderate Colostomy status (CMS/[facility]) Confusion A-fib (CMS/[facility]) Elevated troponin Chest discomfort UTI (urinary tract infection) Fever Vitamin D deficiency Plan Fever, resolved - Occurred 01/21, no clear source for infection - Cardona cultured, so far no growth. CXR and UA do not indicate obvious infection source - Will await final cultures but will do a 5 days course then stop antibiotics. This will increase duration of dificid need - D4/5 of antibiotics CXR had pl effus and poss opacity, rechk. Would like to get off ATB. Chest x-ray read as negative. C diff colitis - Continue Dificid - Recent perforated diverticulitis status post colostomy - Colostomy in place but there is notable erythema surrounding wound - Continue consult for erythema, appreciate assistance - Outpatient surgery follow-up CT noted above. Moderate protein calorie malnutrition - Poor p.o. intake going yeah patient with cefepime - G-tube placed. History of A-fib - Continue beta-mike - Hold Eliquis for g tube, resuming Elevated troponins at time of admission - Mildly elevated and troponin trend was flat - No chest pain - Echo from November 2024 reviewed - Monitor at this time Hypokalemia - Redosed today, magnesium was 1.9. Vit D def. changed back to p.o. dose. [facility] - G tube placement Nutrition Status: Malnutrition Nutrition Diagnosis: Moderate protein-calorie malnutrition Provider Assessment/Plan: Symptoms/Signs/Physical Exam: Muscle Wasting, Poor Appetite, Eating Poorly, Weakness, and Fatigue Etiology: Chronic illness Nutrition Treatment Plan: Supplements as needed, NG tube feeds - Current Diet and/or Nutritional Supplementation ordered: DIET SUPPLEMENT GEN ADULT TID DIET TUBE FEEDING Elemental 1.2,; G-tube; Feeding Method: Continuous; Initial Volume in mL/hour: 20; Goal Volume in mL/hour: 60; Feeding Advancement: 20 ml q6h; Water Flush: 150 ml q6h DIET GENERAL Level 0 Thin,; Soft, Effective Now - Daily weights Impact of Malnutrition on patient condition and outcomes: Increased risk of infection, Delayed recovery, Decreased activity tolerance and reduced mobility , Poor wound healing, Increased readmission risk, and Increased hospitalization length DVT prevention: eliquis Disposition- Anticipated Disposition Location: SNF - does not appear finalized. D/w CM. Anticipated Disposition Timeframe: Stable when destination determined. Disposition Criteria: tolerating tube feeds Disposition Education Needed: C diff Disposition DME/Equipment Needs: TBD CODE STATUS: Full Code Visit: Moderate Lea Green MD 01/27/2025, 2:16 PM * Nevin Saba, RD - 01/27/2025 2:14 PM CDT Nutritional Status/Recommendations/Plan for Follow up: Pt receiving general diet with ONS and TF at goal rate. Spoke with MD, changing to nocturnal TF d/tpt having no appetite during the day. Continue Vital AF @ goal rate 60 ml/hr x 12 hrs with 250 ml water flush q 12 hr. Recommended feeding time 2000 to 0800. This will provide 864 calories, 54 g protein and 1084 ml water (TF and flush). Estimated Needs: Estimated Energy Target: 0297-3186 (01/12/25 1301) Estimated Protein Target: 70-100 (01/12/25 1301) Estimated Fluid Target : [id number] (01/12/25 1301) Nutrition Energy Formula: Calories per kilogram (01/12/25 1301) Weight Used for Formula: Adjusted body weight (68 kg) (01/12/25 1301) Current diet/nutrition support: DIET SUPPLEMENT GEN ADULT TID DIET TUBE FEEDING Elemental 1.2,; G-tube; Feeding Method: Continuous; Initial Volume in mL/hour: 20; Goal Volume in mL/hour: 60; Feeding Advancement: 20 ml q6h; Water Flush: 150 ml q6h DIET GENERAL Level 0 Thin,; Soft, Effective Now Food/Meal: Breakfast (01/26/25 0937),Intake (%): (!) 0% (01/26/25 0937) Weight status/changes: Height: 5' 6 (167.6 cm) (01/25/25 1045) Weight: 72.1 kg (158 lb 15.2 oz) (01/27/25 0500) Last seven weights (if available) from 12/30/24 1424 to 01/27/25 1423 (Last 7 readings): Weight Weight Method 01/27/25 0500 72.1 kg (158 lb 15.2 oz) Actual 01/25/25 1045 69.6 kg (153 lb 7 oz) Actual 01/24/25 0457 69.4 kg (153 lb) Actual 01/23/25 0500 78.4 kg (172 lb 13.5 oz) Actual 01/20/25 0543 80.1 kg (176 lb 9.6 oz) Actual Admission:Weight: 80.1 kg (176 lb 9.6 oz) (01/20/25 0543)Weight Method: Actual (01/20/25 0543) Body mass index is 25.66 kg/m??. [place] body weight: 59.3 kg (130 lb 11.7 oz) Adjusted ideal body weight: 64.4 kg (142 lb 0.3 oz) Nutrition Focused Exam Physical Findings- Summary: Malnutrition Nutrition Diagnosis: Moderate protein-calorie malnutrition (01/12/25 130) Subcutaneous Fat Loss Assessment: Mild fat loss (01/12/25 130) Muscle Wasting Assessment: Mild (01/12/25 130) Edema: Normal contour with a barely perceptible pit (no findings) (01/12/25 130) Hand Secondary English Teacher: Reduced or weakening office equipment mechanic (moderate) (01/12/25 1301) Percentage of Energy: < or equal to 50% for > or equal to 5 days (severe-acute) (01/12/25 130) Percentage of Weight Loss: Unable to assess (01/12/25 130) Additional assessment indices: Alverto Score: 15 (01/27/25 0915) Last Bowel Movement (mm/dd/yyyy): (unknown per patient) (01/24/251999) Stool Consistency - Reference [place] Stool Chart: liquid - (type 7) (01/27/25 0300) Bowel Sounds: All Quadrants: hypoactive (01/27/25 0300) Allergies Allergies Allergen Reactions Morphine Hives and Hallucination Labs: Lab Results Component Value Date/Time NA 142 01/27/2025 06:12 AM K 3.8 01/27/2025 06:12 AM CL 105 01/27/2025 06:12 AM CO2 28 01/27/2025 06:12 AM CA 9.0 01/27/2025 06:12 AM BUN 8 01/27/2025 06:12 AM CREAT 0.42 (L) 01/27/2025 06:12 AM GLUCOSE 146 (H) 01/27/2025 06:12 AM TOTALPROTEIN 5.0 (L) 01/13/2025 01:40 PM ALBUMIN 3.5 01/13/2025 01:40 PM BILITOTAL 0.6 01/13/2025 01:40 PM ALKPHOS 62 01/13/2025 01:40 PM AST 31 01/13/2025 01:40 PM ALT 9 01/13/2025 01:40 PM ANIONGAP 9 01/27/2025 06:12 AM No results found for: HGBA1C , [id number] Lab Results Component Value Date/Time RDW 20.2 (H) 01/26/2025 03:50 AM Lab Results Component Value Date/Time CRP 46.3 (H) 10/26/2024 04:51 AM Lab Results Component Value Date/Time MG 1.9 01/25/2025 04:49 AM Lab Results Component Value Date/Time CA 9.0 01/27/2025 06:12 AM PO4 2.3 (L) 01/19/2025 04:44 AM Lab Results Component Value Date/Time VITAMINDTO 11 (L) 01/24/2025 08:02 PM No results found for: [id number] No results found for: FOLATE , FOLATERBC No results found for: ZINC * Nevin Saba RD - 01/26/2025 3:14 PM CDT Nutritional Status/Recommendations/Plan for Follow up: Pt receiving TF at goal rate. Tolerating. Pt reports some nausea today. Graphics show 0% po intake for breakfast. Labs reviewed, noted low K (replaced) and elevated glucose. Continue TF to meet nutrition needs. Estimated Needs: Estimated Energy Target: [id number] (01/12/25 130) Estimated Protein Target: 70-100 (01/12/25 130) Estimated Fluid Target : [id number] (01/12/25 130) Nutrition Energy Formula: Calories per kilogram (01/12/25 130) Weight Used for Formula: Adjusted body weight (68 kg) (01/12/25 130) Current diet/nutrition support: DIET SUPPLEMENT GEN ADULT TID DIET TUBE FEEDING Elemental 1.2,; G-tube; Feeding Method: Continuous; Initial Volume in mL/hour: 20; Goal Volume in mL/hour: 60; Feeding Advancement: 20 ml q6h; Water Flush: 150 ml q6h DIET GENERAL Level 0 Thin,; Soft, Effective Now Food/Meal: Breakfast (01/26/25 09),Intake (%): (!) 0% (01/26/25936) Weight status/changes: Height: 5' 6 (167.6 cm) (01/25/25 1045) Weight: 69.6 kg (153 lb 7 oz) (01/25/25 1045) Last seven weights (if available) from 12/29/24 1515 to 01/26/25 1514 (Last 7 readings): Weight Weight Method 01/25/25 1045 69.6 kg (153 lb 7 oz) Actual 01/24/25 0457 69.4 kg (153 lb) Actual 01/23/25 0500 78.4 kg (172 lb 13.5 oz) Actual 01/20/25 0543 80.1 kg (176 lb 9.6 oz) Actual Admission:Weight: 80.1 kg (176 lb 9.6 oz) (01/20/25 0543)Weight Method: Actual (01/20/25 0543) Body mass index is 24.77 kg/m??. [place] body weight: 59.3 kg (130 lb 11.7 oz) Adjusted ideal body weight: 63.4 kg (139 lb 13.1 oz) Nutrition Focused Exam Physical Findings- Summary: Malnutrition Nutrition Diagnosis: Moderate protein-calorie malnutrition (01/12/25 130) Subcutaneous Fat Loss Assessment: Mild fat loss (01/12/25 1301) Muscle Wasting Assessment: Mild (01/12/25 1301) Edema: Normal contour with a barely perceptible pit (no findings) (01/12/25 1301) Hand Secondary English Teacher: Reduced or weakening office equipment mechanic (moderate) (01/12/25 130) Percentage of Energy: < or equal to 50% for > or equal to 5 days (severe-acute) (01/12/25 1301) Percentage of Weight Loss: Unable to assess (01/12/25 130) Additional assessment indices: Alverto Score: 15 (01/26/25 07) Last Bowel Movement (mm/dd/yyyy): (unknown per patient) (01/24/251999) Stool Consistency - Reference [place] Stool Chart: liquid - (type 7) (01/25/25699) Bowel Sounds: All Quadrants: hypoactive (01/26/25 0300) Allergies Allergies Allergen Reactions Morphine Hives and Hallucination Labs: Lab Results Component Value Date/Time NA 143 01/26/2025 03:50 AM K 3.2 (L) 01/26/2025 03:50 AM CL 106 01/26/2025 03:50 AM CO2 26 01/26/2025 03:50 AM CA 8.8 01/26/2025 03:50 AM BUN 6 (L) 01/26/2025 03:50 AM CREAT 0.44 (L) 01/26/2025 03:50 AM GLUCOSE 123 (H) 01/26/2025 03:50 AM TOTALPROTEIN 5.0 (L) 01/13/2025 01:40 PM ALBUMIN 3.5 01/13/2025 01:40 PM BILITOTAL 0.6 01/13/2025 01:40 PM ALKPHOS 62 01/13/2025 01:40 PM AST 31 01/13/2025 01:40 PM ALT 9 01/13/2025 01:40 PM ANIONGAP 11 01/26/2025 03:50 AM No results found for: HGBA1C , [id number] Lab Results Component Value Date/Time RDW 20.2 (H) 01/26/2025 03:50 AM Lab Results Component Value Date/Time CRP 46.3 (H) 10/26/2024 04:51 AM Lab Results Component Value Date/Time MG 1.9 01/25/2025 04:49 AM Lab Results Component Value Date/Time CA 8.8 01/26/2025 03:50 AM PO4 2.3 (L) 01/19/2025 04:44 AM Lab Results Component Value Date/Time VITAMINDTO 11 (L) 01/24/2025 08:02 PM No results found for: [id number] No results found for: FOLATE , FOLATERBC No results found for: ZINC * Lea Green MD - 01/26/2025 2:38 PM CDT Images from the original note were not included. [facility] Hospitalist/Internal Medicine Progress note LOS: LOS: 14 days HOSPITAL COURSE SUMMARY: 74 y/o female with perforated diverticulitis s/p colostomy, recent history of C. Difficile status post deficid transferred from OSH for AMS, lethargy, C Diff colitis Patient reportedly has CT of the abdomen pelvis showing no obstruction. Patient reportedly had CT angiogram of the chest showing no pulmonary embolism 01/14- off cardizem drip. On PO atenolol. HR in 80's . Encourage PO. Replete lytes 01/15- increase activity . Encourage PO . PT 01/16- hold tube feeds during day and encourage PO . Increase activity 01/17- removed NG tube X3 and concerned she might pull out peg .. Patient states she would like to eat hamburger . If PO intake gets better plan to d/c NG tube and feeds which she would like to. Discussed with staff . Might need Snf on d/c 01/18: Nocturnal NG tube feeds, continue to increase PO intake. SNF placement in process 01/19: Still minimal PO intake. I spoke to her son, he is wanting to give her more time before placing G tube, he will be coming up on Thursday to discuss further with her on eating vs g tube. We discussed NG tube is not a permanent solution. We also discussed G tube vs hospice care, this is not something they would want to pursue at this time. 01/20: Little to no intake yesterday. Son to come to bedside tomorrow to discuss g tube. Replace potassium 01/21: Son to meet with his mom at bedside today and will update on care plan of G tube vs hospice care 01/22: Fever and change in mentation last night. Cardona cultures, CXR and abd xr done stat without any clear infection source found. Started on IV vanc and cefepime. Blood cultures still pending, Mentation back to normal after fever resolved with Tylenol. Son was able to visit last night, patient and family both wish to pursue G tube placement tomorrow. 01/23: Fevers have resolved. Discussed feeding tube with IR, will need to be done tomorrow due to Eliquis use. I called son, no answer. 01/24: G tube placement today. Likely dc tomorrow if tolerating tube feeds. 01/25 Pt queasy with abd pain. Got PEG yest. Resume Eliquis. 01/26 Pt feels better but does not want to eat, is jose TF and drinking small amt liquid. SUBJECTIVE: The patient is seen resting in bed, nurse present. She is awake and alert, no new concerns. OBJECTIVE: Temp (24hrs), Av.5 ??F (35.8 ??C), Min:93.6 ??F (34.2 ??C), Max:97.7 ??F (36.5 ??C) BP 112/64 Pulse 81 Temp 97 ??F (36.1 ??C) (Temporal) Resp 18 Ht 5' 6 (1.676 m) Wt 69.6 kg (153 lb 7 oz) SpO2 100% BMI 24.77 kg/m?? Intake/Output Summary (Last 24 hours) at 01/26/2025 1438 Last data filed at 01/26/2025 0700 Gross per 24 hour Intake 2019.48 ml Output 700 ml Net 1319.48 ml Last documented weight: Weight: 69.6 kg (153 lb 7 oz) (01/25/25 1045) EXAM: General: Awake, alert, NAD Neurologic: Grossly normal. Oriented X3. NG tube + HEENT: atraumatic, Normocephalic, without obvious abnormality Lungs: clear to auscultation bilaterally, normal respiratory effort Heart: normal rate and regular rhythm, S1 and S2 normal Abdomen: soft, mod gen tenderness, Bowel sounds present . Ostomy less watery output, appears similar to tube feedings Extremities: intact distal pulses, moves all extremities equally Skin: Warm and dry LABORATORY: Recent Labs 01/24/25 0337 01/25/25 0449 01/26/25 0350 WBC 7.1 5.1 5.8 HGB 9.9* 10.0* 9.7* HCT 30.1* 31.0* 30.8* PLT 389 358 357 Recent Labs 01/24/25 0337 01/25/25 0449 01/26/25 0350 NA 137 140 143 K 2.9* 3.0* 3.2* CL 100 103 106 CO2 25 26 26 CA 8.8 8.4* 8.8 BUN 7* 6* 6* CREAT 0.50* 0.49* 0.44* GLUCOSE 120* 121* 123* No results for input(s): TOTALPROTEIN , ALBUMIN , BILITOTAL , ALKPHOS , AST , ALT in the last 72 hours. Recent Labs 01/24/25 0736 INR 1.0 PT 13.8 No results for input(s): CPK , CKMB , TROPONIN in the last 72 hours. Diagnostic testing reviewed by me: Outside CT Medications reviewed by me ASSESSMENT AND PLAN: Principal Problem: Acute C. difficile colitis Active Problems: Protein-calorie malnutrition, moderate Colostomy status (CMS/HCC) Confusion A-fib (CMS/HCC) Elevated troponin Chest discomfort UTI (urinary tract infection) Fever Vitamin D deficiency Plan Fever, resolved - Occurred 01/21, no clear source for infection - Cardona cultured, so far no growth. CXR and UA do not indicate obvious infection source - Will await final cultures but will do a 5 days course then stop antibiotics. This will increase duration of dificid need - D4/5 of antibiotics CXR had pl effus and poss opacity, rechk. Would like to get off ATB. Chest x-ray read as negative. C diff colitis - Continue Dificid - Noted loose stool in colostomy bag, she is also back on IV abx so will continue dificid at this time Recent perforated diverticulitis status post colostomy - Colostomy in place but there is notable erythema surrounding wound - Continue consult for erythema, appreciate assistance - Outpatient surgery follow-up Moderate protein calorie malnutrition - Poor p.o. intake - G-tube placed. History of A-fib - Continue beta-mike - Hold Eliquis for g tube, resuming Elevated troponins at time of admission - Mildly elevated and troponin trend was flat - No chest pain - Echo from November 2024 reviewed - Monitor at this time Hypokalemia - Redosed today, magnesium was 1.9. Vit D def. changed back to p.o. dose. MPCMN - G tube placement Nutrition Status: Malnutrition Nutrition Diagnosis: Moderate protein-calorie malnutrition Provider Assessment/Plan: Symptoms/Signs/Physical Exam: Muscle Wasting, Poor Appetite, Eating Poorly, Weakness, and Fatigue Etiology: Chronic illness Nutrition Treatment Plan: Supplements as needed, NG tube feeds - Current Diet and/or Nutritional Supplementation ordered: DIET SUPPLEMENT GEN ADULT TID DIET TUBE FEEDING Elemental 1.2,; G-tube; Feeding Method: Continuous; Initial Volume in mL/hour: 20; Goal Volume in mL/hour: 60; Feeding Advancement: 20 ml q6h; Water Flush: 150 ml q6h DIET GENERAL Level 0 Thin,; Soft, Effective Now - Daily weights Impact of Malnutrition on patient condition and outcomes: Increased risk of infection, Delayed recovery, Decreased activity tolerance and reduced mobility , Poor wound healing, Increased readmission risk, and Increased hospitalization length DVT prevention: eliquis Disposition- Anticipated Disposition Location: SNF - does not appear finalized. D/w CM. Anticipated Disposition Timeframe: Stable when destination determined. Disposition Criteria: tolerating tube feeds Disposition Education Needed: C diff Disposition DME/Equipment Needs: TBD CODE STATUS: Full Code Visit: Coreen Green MD 01/26/2025, 2:38 PM * Olive Jones, PHARMACIST - 01/25/2025 11:11 AM CDT Vancomycin Consult to Pharmacy Current Antibiotic Therapies Vancomycin Day # 5 Also receiving ceftriaxone and fidaxomicin Serum creatinine: 0.49 mg/dL (L) 01/25/25 0449 Estimated creatinine clearance: 46.9 mL/min (A) NOTE: This calculation is potentially inaccurate in acute and/or chronic kidney disease and over/under weight patients, and thus is only an estimation of renal function Assessment: Tiffany Sexton is a 74 y.o. female who is currently receiving Vancomycin 1250 mg q24h for sepsis. WBC WNL, patient has been afebrile with Tmax last 24 hrs of 98.3 ??F, cultures NGTD. Renal function appears stable at this time as Scr has been consistent at 0.4-0.5 mg/dL (0.49 mg/dL today) and urine output appears stable between measured and unmeasured voids. A trough level was checked on 01/24/25 while receiving 1250 mg q 24 hr and provided the following information/levels: Measured trough level while receiving 1250 mg q 24 hr= 13.3 mcg/mL with an estimated true trough level of 12.09 mcg/mL Goal trough target = Empiric MRSA or Enterococcal coverage (target 11-15) Estimated AUC while receiving 1250 mg q 24 hr= 532 mg*h/L (Goal target 400-600 mg*h/L, note- this AUC is only an estimate and should be confirmed w/ 2-level AUC if accurate AUC is required) Action taken: Continue 1250 mg q 24 hr Plan: 1. Vancomycin 1250 mg q24h. 2. Check the next trough level in 3-5 days unless renal function status changes prior to that time,and follow-up w/ dose adjustments as needed. 3. Continue to monitor renal function daily. Pharmacy will continue to monitor the patient's labs. We will follow-up with daily progress note for Vancomycin and Aminoglycoside Consults and will write a progress note in the future if any additional dosage adjustment is needed on other renal consults. Subjective/Objective: Tiffany Sexton is a 74 y.o. female Temp (24hrs), Av.7 ??F (36.5 ??C), Min:96.8 ??F (36 ??C), Max:98.3 ??F (36.8 ??C) BP 110/62 (BP Location: Right arm, Patient Position (BP): Lying left side) Pulse 87 Temp 96.8 ??F (36 ??C) (Temporal) Resp 15 Ht 5' 6 (1.676 m) Wt 69.6 kg (153 lb 7 oz) SpO2 98% BMI 24.77 kg/m?? WBC Date/Time Value Ref Range Status 01/25/2025 04:49 AM 5.1 4.8 - 10.8 K/uL Final 01/24/2025 03:37 AM 7.1 4.8 - 10.8 K/uL Final 01/23/2025 09:09 AM 6.3 4.8 - 10.8 K/uL Final PLATELETS Date/Time Value Ref Range Status 01/25/2025 04:49 AM 358 140 - 440 K/uL Final 01/24/2025 03:37 AM 389 140 - 440 K/uL Final 01/23/2025 09:09 AM 366 140 - 440 K/uL Final BUN Date/Time Value Ref Range Status 01/25/2025 04:49 AM 6 (L) 8 - 23 mg/dL Final 01/24/2025 03:37 AM 7 (L) 8 - 23 mg/dL Final 01/23/2025 06:03 AM 6 (L) 8 - 23 mg/dL Final CREATININE Date/Time Value Ref Range Status 01/25/2025 04:49 AM 0.49 (L) 0.51 - 0.95 mg/dL Final Comment: The GFR result is not clinically significant on patients <18 or >70 years of age. 01/24/2025 03:37 AM 0.50 (L) 0.51 - 0.95 mg/dL Final Comment: The GFR result is not clinically significant on patients <18 or >70 years of age. 01/23/2025 06:03 AM 0.45 (L) 0.51 - 0.95 mg/dL Final Comment: The GFR result is not clinically significant on patients <18 or >70 years of age. VANCOMYCIN, TROUGH Date/Time Value Ref Range Status 01/24/2025 08:02 PM 13.3 10.0 - 17.0 ug/mL Final Thank you for the consult and involving us in the care of this patient, we will continue to monitor. WINIFRED Licea * Laura Hill V., RT - 01/25/2025 10:52 AM CDT IMAGING SERVICES- CONTRAST, MEDICATION and FLUSH PROTOCOL [facility] Enter the protocol in the patient's electronic health record using smartphrase: .imagingcontrastprotocol Communication Orders: Initiate a peripheral IV, if not already in place, and discontinue IV prior to discharge Enter order if needed: Insert Peripheral IV Medication Orders: Lidocaine 4% (L.M.X.4)- applied topically ONE TIME prior to IV catheter insertion PRN (apply 15 minutes prior to procedure) Sodium chloride 0.9% (normal saline) flush- 10 mLs PRN for saline lock or medication administration Oxygen- For respiratory distress, initiate O2 to maintain saturation greater than 90% CAT SCAN CT IV CONTRAST PROTOCOLS FOR ADULTS Iopamidol Injection 61% (ISOVUE-300)- Double bolus with MD approval Routine exams dosed by weight: <150lbs- 75mL 151lbs to 220lbs- 100mL >220lbs- 125mL CT Angiography: 100mL Runoff and Triphasic Liver Protocols: 150mL Iopamidol Injection 76% (ISOVUE-370) Cardiac- 110mL TAVR- 160mL CT IV CONTRAST PROTOCOLS FOR PEDIATRICS Iopamidol Injection 61% (ISOVUE-300) - Routine exams: 1mL per pound Infant and Pediatric- Head / Face: 1mL per pound up to 50 lbs Pediatric- Routine exams: 1mL per pound up to 75 lbs 75-150 lbs: 75mL 150-220 lbs: 100mL >220 lbs: 125mL CT ORAL CONTRAST PROTOCOLS FOR ADULTS Iohexol 300mg/mL (OMNIPAQUE) for CT scan unless patient has a documented allergy to contrast * 15ml added to 16 oz of clear liquid of patient's choice. Preferred route is oral. May use nasoenteric tube if needed. Administer 16 oz the diluted Omnipaque 300, orally 1st dose 30-60 minutes prior to scan and 2nd dose just before scan. * Barium Sulfate 2% w/v (READI-CAT2) for CT scan when patient has documented contrast allergy Administer 2 doses of 450mL of barium sulfate. First dose 30-60 min prior to exam and 2nd dose justbefore exam. Preferred route is oral. May use nasoenteric tube if needed. Barium Sulfate 0.1% w/v, 0.1% w/w (VOLUMEN) for Enterography and GI Bleed protocols Administer VoLumen- 3 doses of 450 mL. 1st dose must be completed within 20 minutes. 2nd dose must be completed in the next 30 minutes. 3rd dose is given at scan time. Preferred route is oral. May use nasoenteric tube if needed. CT ORAL CONTRAST PROTOCOLS FOR PEDIATRICS Preferred route is oral, may use nasoenteric tube if needed. to 3 months- Barium Sulfate 2%w/v (READI-CAT2) thinned with water to a consistency for typical bottle feeding 3 Months to 3 years- Iohexol 300mg/mL (OMNIPAQUE) 5mL diluted with 16oz clear fluid. 1 dose: 30min prior to exam 4 years to 10 years- Iohexol 300mg/mL (OMNIPAQUE) 8mL diluted with 16oz clear fluid. 1 dose: 30min prior to exam 10 years and up- Iohexol 300mg/mL (OMNIPAQUE) 15mL diluted with 16oz clear fluid. 2 doses: first dose 30min prior to exam and 2nd dose just before scan if tolerated CT CYSTOGRAM Iopamidol 61% Injection ([id number]): 25mL Dilute into 500mL bag of sterile NS administer up to 300mL retrograde via urinary catheter DIAGNOSTIC RADIOLOGY Enter the protocol in the patient's electronic health record using smartphrase: ADULTS PROCEDURE DOSAGE ARTHROGRAMS Plain ISOVUE 300 12mL MRI-(Ankle,Elbow,Hip,Wrist,Knee,Shoulder) ISOVUE 300 5mL / Prohance .2ml CT-(Ankle,Elbow,Hip,Wrist,Knee,Shoulder) ISOVUE 300 20mL BARIUM ENEMAS BARIUM ENEMA AIR CONTRAST LIQUID POLIBAR 1900ml BARIUM ENEMA/ GASTROGRAFIN B.E. LIQUID POLIBAR 800mL + 3200mL of water or GASTROGRAFIN 960mL + 3040mL of water. CYSTOGRAM CYSTOGRAFIN 1500mL ESOPHAGUS BARIUM SWALLOW E-Z-HD Barium Sulfate for Suspension 340g. and/or E-Z-PAQUE Barium Sulfate Oral Suspension 355mL OMNIPAQUE 350 50ml or GASTROGRAFIN 120mL Barium tablet 700mg (if indicated) MODIFIED BARIUM SWALLOW Barium tablet 700mg, Varibar paste 90g/Varibar thin 74g/ Varibar honey 125mL/ Varibar [place] 120mL HYSTEROSALPINGOGRAM ISOVUE 300 30ml IVP'S ISOVUE 300 100ml MYELOGRAMS: CERVICAL ISOVUE-M 300 10mL THORACIC ISOVUE-M 300 10mL LUMBAR ISOVUE-M 200 12mL SMALL BOWEL SERIES E-Z-PAQUE Barium Sulfate for Oral Suspension 710mL or GASTROGRAFIN 240mL LOOPOGRAM ISOVUE 300 60mL NEPHROSTOGRAM ISOVUE 300 60mL RETROGRADE URETHROGRAM Cystografin 300mL UPPER GI Upper GI E-Z-HD Barium Sulfate for Suspension: 340g. and/or E-Z-PAQUE Barium Sulfate for Oral Suspension: 355mL Upper GI Air Contrast Same as above EZ Gas crystals (if indicated) URETHROCYSTOGRAM VOIDING Cystografin 1500mL PORT CONTRAST INJECTION WITH Isovue 300 20mL [facility] P[facility] PROCEDURE CONTRAST DOSAGE Upper GI Under Age 5 Liquid E-Z-Paque (Thin Barium) 240mL Omnipaque 180 (hypaque) or 350 50mL Upper GI Above Age 5 EZ HD (Thick Barium) 340g Liquid E-Z Paque (Thin Barium) 240mL EZ Gas Packet 4g Omnipaque 350 (hypaque) 50mL Small Bowel Series Under Age 5 Liquid E-Z Paque (Thin Barium) 240mL Omnipaque 180 (hypaque) 50mL Small Bowel Series Above Age 5 Liquid E-Z Paque (Thin Barium) 480mL Omnipaque 350 50mL Barium Swallow Under Age 5 Liquid E-Z Paque (Thin Barium) 240mL Omnipaque 180 (hypaque) 50mL Barium Swallow Above Age 5 EZ HD (Thick Barium) 340g Liquid E-Z Paque (Thin Barium) 240mL Omnipaque 350 50mL Modified Barium Swallow >1 Varibar [id number]: 1 to 2 Varibar Thin74 Paste 90g (Video Swallow with Speech) <2 Varibar [id number], [id number], Honey 125mL, Paste 90g IVP Isovue 300 100mL/1mL per lb. Urethrocystogram Voiding Cystografin 500mL Barium Enema Liquid Polibar 400mL+1600 water 2000mL Barium Enema with Hypaque Gastrografin 1 bottle mixed 5 bottle water 720mL Over 5 Gastrografin 480mL+1520 water 2000mL Barium Enema Air Contrast Liquid Polibar 1900mL INTERVENTIONAL RADIOLOGY PROCEDURE DOSAGE IR ARTERIOGRAM VISIPAQUE 320 OR OMNIPAQUE 300 MAX DOSAGE 400mL IR BILIARY ISOVUE 200 MAX DOSAGE 300 mL IR FISTULOGRAM ISOVUE 200 OR VISIPAQUE 320 MAX DOSAGE 400mL IR IVC FILTER ISOVUE 200 OR VISIPAQUE MAX DOSAGE 400 mL IR TUBE PLACEMENT ISOVUE 200 MAX DOSAGE 300 mL IR VENOUS ABDOMINAL VISIPAQUE 320 OR ISOVUE 200 MAX DOSAGE 400 mL IR VENOUS ACCESS ISOVUE 200 MAX DOSAGE 300 mL IR VENOUS UPPER AND LOWER EXTREMITY VISIPAQUE 320 OR ISOVUE 200 MAX DOSAGE 400 mL IR SPINAL INTERVENTION ISOVUE 200 MAX DOSAGE 100mL (FOR BALLOON ONLY) MRI MRI IV CONTRAST PROTOCOLS FOR ADULTS Gadobenate Dimeglumine (MULTIHANCE) (0.1mmol/0.2mL)- Administer 0.1mmol/kg = 0.2mL/kg up to 30mL MAX, intravenously, one time only for routine MRI Gadoxetate (EOVIST) (2.5 mmol/10mL)- Administer 0.025mmol/kg = 0.1mL/kg up to 15mL MAX, intravenously, one time only when requested by radiologist for Liver protocol Gadoteridol (PROHANCE) (0.1mmol/0.2mL)- Administer 0.1mmol/kg = 0.2mL/kg up to 30mL MAX, intravenously, one time only when approved by radiologist for routine MRI MRI IV CONTRAST PROTOCOLS FOR PEDIATRICS Radiologist to determine the need for contrast Term neonates and older: Gadobenate Dimeglumine (MULTIHANCE) (0.1mmol/0.2mL) -Administer 0.1mmol/kg = 0.2mL/kg up 20mL MAX, intravenously, one time only MRI ORAL CONTRAST PROTOCOLS Barium Sulfate 0.1% w/v, 0.1% w/w (VOLUMEN) for Enterography Administer VoLumen- 3 doses of 450 mL. 1st dose must be completed within 20 minutes. 2nd dose must be completed in the next 30 minutes. 3rd dose is given at scan time. Preferred route is oral. May use nasoenteric tube if needed. Use half dose if patient is <100lb NUCLEAR MEDICINE Procedure: Abscess Localization Medications for Procedure: In-111 Leukocytes *Syringes prepped with 2000 units of Heparin added to 10ml of 6% Hetastarch- Approximately 45ml's patient's blood added to the above for labeling Adult Dose: 300-550uCi Pediatric Dose Calculation: .0075mCi/kg Pediatric Minimum: 50uCi Pediatric Maximum: 500uCi Reference: #3 Procedure: Abscess Localization Medications for Procedure: Tc-99m HMPAO Leukocytes *Syringes prepped with 2000 units of Heparin added to 10ml of 6% Hetastarch- Approximately 45ml's patient's blood added to the above for labeling Adult Dose: 15-30mCi Pediatric Dose Calculation: .15mCi/kg Pediatric Minimum: 500uCi Pediatric Maximum: 10.5mCi Reference: #3 Procedure: Abscess Localization Medications for Procedure: Ga-67 Citrate Adult Dose: Ga-67 Citrate Pediatric Dose Calculation: .05mCi/kg Pediatric Minimum: .05mCi/kg Pediatric Maximum: .05mCi/kg Reference: .05mCi/kg Procedure: Arthrogram Medications for Procedure: Tc-99m Sulfur Colloid Adult Dose: 1.0mCi Procedure: Blood Pool (Muga/Hepatic Hemangioma/GI Bleed) Medications for Procedure: Tc-99m Ultratag *Syringe prepped with Heparin Lock Flush(concentration of 100 units/ml) volume of ~.1ml used so dose is ~10 units of Heparin for each procedure Adult Dose: 30mCi Pediatric Dose Calculation: .25mCi/kg Pediatric Minimum: 2.5mCi Pediatric Maximum: 17.5mCi Reference: #1 Comments: Used .25mCi/kg for all exams in this category per Nuclear Medicine physicians Procedure: Bone Scan Medications for Procedure: Tc-99m HDP Adult Dose: 20mCi Pediatric Dose Calculation: .25mCi/kg Pediatric Minimum: 1.0mCi Pediatric Maximum: 17.5mCi Reference: #2 Procedure: Bone Scan Medications for Procedure: Tc-99m MDP Adult Dose: 20mCi Pediatric Dose Calculation: .25mCi/kg Pediatric Minimum: 1.0mCi Pediatric Maximum: 17.5mCi Reference: #2 Procedure: Bone Marrow Imaging Medications for Procedure: Tc-99m Sulfur Colloid Adult Dose: 10mCi Pediatric Dose Calculation: .14mCi/kg Pediatric Minimum: 1.0mCi Pediatric Maximum: 10.0mCi Reference: #1 Procedure: Bowel Imaging (Meckel's) Medications for Procedure: Tc-99m Pertechnetate Adult Dose: 10mCi Pediatric Dose Calculation: .05mCi/kg Pediatric Minimum: 250uCi Pediatric Maximum: 3.5mCi Reference: #2 Procedure: Brain (Cerebral flow) Medications for Procedure: Tc-99m Pertechnetate Adult Dose: 20mCi Pediatric Dose Calculation: .28mCi/kg Pediatric Minimum: 4mCi Pediatric Maximum: 20.0mCi Reference: #1 Procedure: Brain (SPECT) Medications for Procedure: Tc-99m HMPAO(Ceretec) Adult Dose: 30mCi Pediatric Dose Calculation: .35mCi/kg Pediatric Minimum: 3mCi Pediatric Maximum: 25.0mCi Reference: #1 Procedure: Brain (DaTscan) Medications for Procedure: Tc-99m Ioflupane (DaTscan) *120 mg Potassium Iodide in 8 Oz. given PO one hour prior to dosing for procedure Adult Dose: 5mCi Procedure: Cisternogram Medications for Procedure: In-111 DTPA Adult Dose: 2mCi Pediatric Dose Calculation: .007mCi/kg Pediatric Minimum: 100uCi Pediatric Maximum: 500uCi Reference: #1 Procedure: Cystogram Medications for Procedure: Tc-99m Sulfur Colloid or MAA Adult Dose: 1.0mCi Procedure: Gastric Empty (Solid) Medications for Procedure: Tc-99m Sulfur Colloid (eggs/oatmeal/formula) Adult Dose: 1.0mCi Pediatric Dose Calculation: NMIS weight based calculation Pediatric Minimum: 250uCi Pediatric Maximum: 1.0mCi Reference: #5 Procedure: Gastro-esophageal Reflux Medications for Procedure: Tc-99m Sulfur Colloid Adult Dose: 1.0mCi Pediatric Dose Calculation: NMIS weight based calculation Pediatric Minimum: 250uCi Pediatric Maximum: 1.0mCi Reference: #5 Procedure: Hepatobiliary With or without EF Medications for Procedure: Tc-99m Mebrofenin *If using CCK (Sincalide) for EF- dose is .02mcg/kg Sincalide prepared using 5 ml Sterile water added to 5 mcg vial of Sincalide Adult Dose: 5.0mCi Pediatric Dose Calculation: .05mCi/kg Pediatric Minimum: 500uCi Pediatric Maximum: 3.5mCi Reference: #2 Procedure: Hepatobiliary With or without EF Medications for Procedure: Tc-99m Mebrofenin *Bilirubin >1.5mg Adult Dose: 8.0mCi Pediatric Dose Calculation: N/A Pediatric Minimum: 1.0mCi * Pediatric Maximum: 1.0mCi * Reference: #2 Procedure: Hepatic Artery Angiography (Sphere Mapping) Medications for Procedure: Tc-99m MAA Adult Dose: 4.0mCi Pediatric Dose Calculation: N/A Procedure: LeVeen Shunt Patency Medications for Procedure: Tc-99m Sulfur Colloid or MAA Adult Dose: 3.0mCi Procedure: Liver/Spleen Imaging Medications for Procedure: Tc-99m Sulfur Colloid Adult Dose: 5.0mCi Pediatric Dose Calculation: .05mCi/kg Pediatric Minimum: 200uCi Pediatric Maximum: 3.5mCi Reference: #1 Procedure: Lymphoscintigraphy (Breast) Medications for Procedure: Tc-99m Sulfur Colloid (filtered) Adult Dose: 250-550uCi Pediatric Dose Calculation: N/A Procedure: Lymphoscintigraphy (Breast) Medications for Procedure: Tc-99m Tilmanocept (Lymphoseek) Adult Dose: 250-550uCi Pediatric Dose Calculation: N/A Procedure: Lymphoscintigraphy (Melanoma) Medications for Procedure: Tc-99m Sulfur Colloid (filtered) Adult Dose: 500uCi Pediatric Dose Calculation: N/A Procedure: Lymphoscintigraphy (Melanoma) Medications for Procedure: Tc-99m Tilmanocept (Lymphoseek) Adult Dose: 500uCi Pediatric Dose Calculation: N/A Procedure: Lymphoscintigraphy (Melanoma/Breast - 24 hr Injection) Medications for Procedure: Tc-99m Sulfur Colloid (filtered) Adult Dose: 1.8mCi Pediatric Dose Calculation: N/A Procedure: Lymphoscintigraphy (Melanoma/Breast - 24 hr Injection) Medications for Procedure: Tc-99m Tilmanocept (Lymphoseek) Adult Dose: 1.8mCi Pediatric Dose Calculation: N/A Procedure: Lymphoscintigraphy (Lymphedema) Medications for Procedure: Tc-99m Tilmanocept (Lymphoseek) *Apply Topical Lidocaine 30 minutes prior to injections using 4% Anesthetic cream to both feet between webbing of 1st and 2nd toes. Tube is 5 grams of 4% lidocaine Adult Dose: 1.0mCi Pediatric Dose Calculation: N/A Comments: Split dose in (2) 1ml syringes ~500uCi/.1ml each Procedure: Metabolic Tumor Imaging Medications for Procedure: FDG-18 Adult Dose: 10-14mCi Pediatric Dose Calculation: .12mCi/kg Pediatric Minimum: 1.0mCi Pediatric Maximum: 8.4mCi Reference: #2 Procedure: Metabolic Tumor Imaging Medications for Procedure: F-18 Na Flouride Adult Dose: 10-15mCi Pediatric Dose Calculation: .06mCi/kg Pediatric Minimum: .5mCi Pediatric Maximum: 4.2mCi Reference: #2 Procedure: Metabolic Tumor Imaging Medications for Procedure: F-18 fluciclovine(Axumin) Adult Dose: 10.0mCi Pediatric Dose Calculation: N/A Procedure: Metabolic Brain Imaging Medications for Procedure: FDG-18 Adult Dose: 6mCi Pediatric Dose Calculation: .10mCi/kg Pediatric Minimum: 1.0mCi Pediatric Maximum: 5.0mCi Reference: #2 Procedure: Myocardial Perfusion Imaging (Same Day Protocol) Medications for Procedure: Tc-99m Tetrofosmin or Sestamibi *Pharmacologic Stress testing using 0.4mg Lexiscan (regadenoson) for all Myocardial Perfusion protocols Adult Dose: 10mCi (Rest) 30mCi(Stress) *8.0mCi(Rest) *24.0mCi(Stress) Pediatric Dose Calculation: .07mCi/kg, .28mCi/kg Pediatric Minimum: ---, --- Pediatric Maximum: 6.0mCi, 24.0mCi Reference: #1 Comments: *Only used during periods of Tc 99m shortages Procedure: Myocardial Perfusion Imaging (2 day protocol) Day 1(Rest) Day 2(Stress) Medications for Procedure: Tc-99m Tetrofosmin or Sestamibi Adult Dose: 20mCi(Rest), 30mCi(Stress) Pediatric Dose Calculation: .07mCi/kg, .28mCi/kg Pediatric Minimum: ---, --- Pediatric Maximum: 6.0mCi, 24.0mCi Reference: #1 Procedure: Myocardial Perfusion Imaging (Same Day Weight Based Dosing) Medications for Procedure: Tc-99m Tetrofosmin or Sestamibi Adult Dose: Up to 220lbs 10mCi (Rest) 30mCi (Stress) 220-285lbs 13mCi (Rest) 39mCi (Stress) 286-351lbs 16mCi (Rest) 48mCi (Stress) 352lbs and > 19mCi (Rest) 57mCi (Stress) Pediatric Dose Calculation: N/A Procedure: Myocardial Perfusion Imaging (Same Day Weight Based Dosing) Medications for Procedure: Tl-201 Thallous Chloride Adult Dose: 3.25mCi Pediatric Dose Calculation: .035mCi/kg Pediatric Maximum: 2.5mCi Reference: #1 Procedure: Myocardial Infarction Imaging Medications for Procedure: Tc-99m Pyrophosphate Adult Dose: 25.0mCi Pediatric Dose Calculation: N/A Procedure: Parathyroid Imaging Medications for Procedure: Tc-99m Sestamibi Adult Dose: 20.0mCi Pediatric Dose Calculation: .28mCi/kg Pediatric Minimum: 2.0mCi Pediatric Maximum: 20.0mCi Reference: #1 Procedure: Pulmonary Perfusion Imaging Medications for Procedure: Tc-99m MAA Adult Dose: 6.0mCi Pediatric Dose Calculation: .03mCi/kg Pediatric Minimum: 400uCi Pediatric Maximum: 2.1mCi Reference: #2 Procedure: Pulmonary Perfusion Imaging (Pumlonary HTN or Right to Left Shunts) Medications for Procedure: Tc-99m MAA Adult Dose: 1-2.5mCi in max of .2ml volume Pediatric Dose Calculation: N/A Procedure: Pulmonary Perfusion Imaging ( Patients - All Trimesters) Medications for Procedure: Tc-99m MAA Adult Dose: 3.0mCi Pediatric Dose Calculation: N/A Procedure: Pulmonary Ventilation Imaging Medications for Procedure: Xe-133 Gas Adult Dose: 10-30mCi Pediatric Dose Calculation: Adult dose Procedure: Pulmonary Ventilation Imaging Medications for Procedure: Tc-99m DTPA Adult Dose: 35mCi Pediatric Dose Calculation: Adult dose Procedure: Renal Imaging (Cortical) Medications for Procedure: Tc-99m DMSA Adult Dose: 5mCi Pediatric Dose Calculation: .05mCi/kg Pediatric Minimum: 500uCi Pediatric Maximum: 3.5mCi Reference: #2 Procedure: Renal Imaging (Function/ Lasix) Medications for Procedure: Tc-99m MAG 3 *(Lasix IV) 0.5 mg/kg in the adult patient using a minimum of 40 mg and a maximum of 80 mg. The dose for infants (0-1yr. old) is 1mg/kg. The dose for a child (1-16yr. old) is 0.5mg/kg, without a minimum Adult Dose: 10mCi Pediatric Dose Calculation: .15mCi/kg Pediatric Minimum: 500uCi Pediatric Maximum: 10.0mCi Reference: #2 Procedure: Thyroid Uptake/Imaging Medications for Procedure: I-123 Sodium Iodide capsules or solution Adult Dose: 200-500uCi Pediatric Dose Calculation: 5uCi/kg Pediatric Minimum: 50uCi Pediatric Maximum: 250uCi Reference: #4 Procedure: Thyroid Uptake/Imaging Medications for Procedure: I-131 Sodium Iodide Solution (uptake only) Adult Dose: 5-10uCi Pediatric Dose Calculation: N/A Procedure: Thyroid Uptake/Imaging Medications for Procedure: Tc-99m Pertechnetate (scan only) Adult Dose: 10mCi Pediatric Dose Calculation: .14mCi/kg Pediatric Minimum: 1.0mCi Pediatric Maximum: 10.0mCi Reference: #1 Procedure: Tumor Localization Imaging Medications for Procedure: Ga-67 Citrate Adult Dose: 10mCi Pediatric Dose Calculation: .14mCi/kg Pediatric Maximum: 10.0mCi Reference: #1 Procedure: Tumor Localization Imaging Medications for Procedure: In-111 Capromab Pendetide(Prostascint) Adult Dose: 6.0mCi Pediatric Dose Calculation: N/A Procedure: Tumor Localization Imaging (MIBG Scans) Medications for Procedure: I-123 Metaiodobenzylguanidine (MIBG) *120 mg Potassium Iodide in 8 Oz. given PO one hour prior to dosing for procedure Adult Dose: 10mCi Pediatric Dose Calculation: .14mCi/kg Pediatric Minimum: 1.0mCi Pediatric Maximum: 10.0mCi Reference: #2 Procedure: Tumor Localization Imaging (MIBG Scans) Medications for Procedure: I-131Metaiodobenzylguanidine (MIBG) *120 mg Potassium Iodide in 8 Oz. given PO one hour prior to dosing for procedure Adult Dose: 1.0mCi Pediatric Dose Calculation: N/A Procedure: Tumor Localization Imaging Medications for Procedure: In-111 Pentetreotide (Octreoscan) Adult Dose: 6.0mCi Pediatric Dose Calculation: .08mCi/kg Pediatric Maximum: 6.0mCi Reference: #1 Procedure: Tumor Localization Imaging Medications for Procedure: I-131 Sodium Iodide Adult Dose: 5.0mCi Pediatric Dose Calculation: N/A Procedure: Tumor Localization Imaging Medications for Procedure: I-123 Sodium Iodide Adult Dose: 1.5-2.0mCi Pediatric Dose Calculation: .028mCi/kg Reference: No reference information Procedure: Venogram (Upper/Lower Extremities) Medications for Procedure: Tc-99m Ultratag *Syringe prepped with Heparin Lock Flush(concentration of 100 units/ml) volume of ~.1ml used so dose is ~10 units of Heparin for each procedure Adult Dose: 30mCi Pediatric Dose Calculation: N/A Procedure: Ventricular Shunt Imaging Medications for Procedure: Tc-99m DTPA Adult Dose: 1.0mCi Pediatric Dose Calculation: N/A References for Pediatric Administration: Nuclear Medicine Procedure Manual, Division of Nuclear Medicine, [facility] of Radiology; [email or web address] [place] Consensus Guidelines for Administered Radiopharmaceutical Activities in Children andAdolescents; http://interactive.snm.org/docs/Pediatric dose consensus guidelines Final 2010.pdf ACR-SNM-SPR Practice guideline for the performance of Scintigraphy for inflammation and infection; www/acr.org.guidelines. Revised 2009 9.1 Harriet SUE, Janell WC, Estefani RD. Nuclear Medicine Diagnosis and Therapy. Prevacus.,1996. Chapter 37, page 930, Table 1. Pediatric weight/dose database file NMIS system: Pediatric Dose = Adult dose (mCi) x Dose Factor Range of Weight (lbs) Dose Factor (%) 0.00-5.00 10 5.01-10.00 10 10.01-15.00 16 15.01-20.00 21 20.01-25.00 25 25.01-30.00 30 30.01-40.00 34 40.01-50.00 41 50.01-60.00 48 60.01-70.00 54 70.01-80.00 61 80.01-90.00 67 90.01-100.00 72 100.01-110.00 78 110.01-120.00 83 120.01-130.00 88 130.01-140.00 94 140.01-142.00 99 142.01-150.00 100 Attention: Any exam, radiopharmaceutical or dosage not included on this list requires physician approval and a written prescription Approved by: Medical Executive Committee and Imaging Services * Lea Green MD - 01/25/2025 8:08 AM CDT Images from the original note were not included. [facility] Hospitalist/Internal Medicine Progress note LOS: LOS: 13 days HOSPITAL COURSE SUMMARY: 74 y/o female with perforated diverticulitis s/p colostomy, recent history of C. Difficile status post deficid transferred from OSH for AMS, lethargy, C Diff colitis Patient reportedly has CT of the abdomen pelvis showing no obstruction. Patient reportedly had CT angiogram of the chest showing no pulmonary embolism 01/14- off cardizem drip. On PO atenolol. HR in 80's . Encourage PO. Replete lytes 01/15- increase activity . Encourage PO . PT 01/16- hold tube feeds during day and encourage PO . Increase activity 01/17- removed NG tube X3 and concerned she might pull out peg .. Patient states she would like to eat hamburger . If PO intake gets better plan to d/c NG tube and feeds which she would like to. Discussed with staff . Might need Snf on d/c 01/18: Nocturnal NG tube feeds, continue to increase PO intake. SNF placement in process 01/19: Still minimal PO intake. I spoke to her son, he is wanting to give her more time before placing G tube, he will be coming up on Thursday to discuss further with her on eating vs g tube. We discussed NG tube is not a permanent solution. We also discussed G tube vs hospice care, this is not something they would want to pursue at this time. 01/20: Little to no intake yesterday. Son to come to bedside tomorrow to discuss g tube. Replace potassium 01/21: Son to meet with his mom at bedside today and will update on care plan of G tube vs hospice care 01/22: Fever and change in mentation last night. Cardona cultures, CXR and abd xr done stat without any clear infection source found. Started on IV vanc and cefepime. Blood cultures still pending, Mentation back to normal after fever resolved with Tylenol. Son was able to visit last night, patient and family both wish to pursue G tube placement tomorrow. 01/23: Fevers have resolved. Discussed feeding tube with IR, will need to be done tomorrow due to Eliquis use. I called son, no answer. 01/24: G tube placement today. Likely dc tomorrow if tolerating tube feeds. 01/25 Pt queasy with abd pain. Got PEG yest. Resume Eliquis. SUBJECTIVE: The patient is seen resting in bed, nurse present. She is awake and alert, no new concerns. OBJECTIVE: Temp (24hrs), Av.7 ??F (36.5 ??C), Min:96.8 ??F (36 ??C), Max:98.3 ??F (36.8 ??C) BP 110/62 (BP Location: Right arm, Patient Position (BP): Lying left side) Pulse 87 Temp 96.8 ??F (36 ??C) (Temporal) Resp 15 Wt 69.4 kg (153 lb) SpO2 98% BMI 24.69 kg/m?? Intake/Output Summary (Last 24 hours) at 01/25/2025 0808 Last data filed at 01/25/2025 0700 Gross per 24 hour Intake 160 ml Output 300 ml Net -140 ml Last documented weight: Weight: 69.4 kg (153 lb) (01/24/25 0457) EXAM: General: Awake, alert, NAD Neurologic: Grossly normal. Oriented X3. NG tube + HEENT: atraumatic, Normocephalic, without obvious abnormality Lungs: clear to auscultation bilaterally, normal respiratory effort Heart: normal rate and regular rhythm, S1 and S2 normal Abdomen: soft, mod gen tenderness, Bowel sounds present . Ostomy + with surrounding erythema. Ostomy with very watery green stool Extremities: intact distal pulses, moves all extremities equally Skin: Warm and dry LABORATORY: Recent Labs 01/23/25 0909 01/24/25 0337 01/25/25 0449 WBC 6.3 7.1 5.1 HGB 11.7* 9.9* 10.0* HCT 36.4 30.1* 31.0* PLT 366 389 358 Recent Labs 01/23/25 0603 01/24/25 0337 01/25/25 0449 NA 139 137 140 K 4.0 2.9* 3.0* CL 102 100 103 CO2 25 26 CA 8.8 8.8 8.4* BUN 6* 7* 6* CREAT 0.45* 0.50* 0.49* GLUCOSE 90 120* 121* No results for input(s): TOTALPROTEIN , ALBUMIN , BILITOTAL , ALKPHOS , AST , ALT in the last 72 hours. Recent Labs 01/24/25 0736 INR 1.0 PT 13.8 No results for input(s): CPK , CKMB , TROPONIN in the last 72 hours. Diagnostic testing reviewed by me: Outside CT Medications reviewed by me ASSESSMENT AND PLAN: Principal Problem: Acute C. difficile colitis Active Problems: Protein-calorie malnutrition, moderate Colostomy status (CMS/HCC) Confusion A-fib (CMS/[facility]) Elevated troponin Chest discomfort UTI (urinary tract infection) Fever Vitamin D deficiency Plan Fever, resolved - Occurred 01/21, no clear source for infection - Cardona cultured, so far no growth. CXR and UA do not indicate obvious infection source - Will await final cultures but will do a 5 days course then stop antibiotics. This will increase duration of dificid need - D4/5 of antibiotics CXR had pl effus and poss opacity, rechk. Would like to get off ATB. C diff colitis - Continue Dificid - Noted loose stool in colostomy bag, she is also back on IV abx so will continue dificid at this time Recent perforated diverticulitis status post colostomy - Colostomy in place but there is notable erythema surrounding wound - Continue consult for erythema, appreciate assistance - Outpatient surgery follow-up Moderate protein calorie malnutrition - Poor p.o. intake - G-tube placed. History of A-fib - Continue beta-mike - Hold Eliquis for g tube, resuming Elevated troponins at time of admission - Mildly elevated and troponin trend was flat - No chest pain - Echo from November 2024 reviewed - Monitor at this time Hypokalemia - Still low, add mag Vit D def. The 50K dose cannot go through G tube. See orders. MPCMN - G tube placement Nutrition Status: Malnutrition Nutrition Diagnosis: Moderate protein-calorie malnutrition Provider Assessment/Plan: Symptoms/Signs/Physical Exam: Muscle Wasting, Poor Appetite, Eating Poorly, Weakness, and Fatigue Etiology: Chronic illness Nutrition Treatment Plan: Supplements as needed, NG tube feeds - Current Diet and/or Nutritional Supplementation ordered: DIET SUPPLEMENT GEN ADULT TID DIET NPO See Comments, DIET TUBE FEEDING Elemental 1.2,; G-tube; Feeding Method: Continuous; Initial Volume in mL/hour: 20; Goal Volume in mL/hour: 60; Feeding Advancement: 20 ml q6h; Water Flush: 150 ml q6h - Daily weights Impact of Malnutrition on patient condition and outcomes: Increased risk of infection, Delayed recovery, Decreased activity tolerance and reduced mobility , Poor wound healing, Increased readmission risk, and Increased hospitalization length DVT prevention: eliquis Disposition- Anticipated Disposition Location: SNF - does not appear finalized. D/w CM. Anticipated Disposition Timeframe: tomorrow Disposition Criteria: tolerating tube feeds Disposition Education Needed: C diff Disposition DME/Equipment Needs: TBD CODE STATUS: Full Code Lea Green MD 01/25/2025, 8:08 AM * Micky Bennett, PHARMACIST - 01/24/2025 9:27 PM CDT Vancomycin CONSULT TO PHARMACY- PROGRESS NOTE UPDATE Assessment/Plan: As described in the pharmacy progress note earlier today, a A trough level was checked this eveningand provided the following information/levels: Previous dose at time of trough level= 1250 mg q 24 hr Measured trough level = 13.3 mcg/mL Estimated true trough level = 12.09 Goal trough target = Empiric MRSA or Enterococcal coverage (target 11-15) Estimated AUC = 532 mg*h/L (note- this AUC is only an estimate and should be confirmed w/ 2-level AUC if accurate AUC is required) Action taken: Continue 1250 mg q 24 hr Plan: 1. Continue vancomycin 1250 mg q 24 hrs. 2. Will follow-up on dosage adjustment tomorrow during day shift. * Erendira Jackson MD - 01/24/2025 12:01 PM CDT [facility] Hospitalist/Internal Medicine Progress note LOS: LOS: 12 days HOSPITAL COURSE SUMMARY: 74 y/o female with perforated diverticulitis s/p colostomy, recent history of C. Difficile status post deficid transferred from OSH for AMS, lethargy, C Diff colitis Patient reportedly has CT of the abdomen pelvis showing no obstruction. Patient reportedly had CT angiogram of the chest showing no pulmonary embolism 01/14- off cardizem drip. On PO atenolol. HR in 80's . Encourage PO. Replete lytes 01/15- increase activity . Encourage PO . PT 01/16- hold tube feeds during day and encourage PO . Increase activity 01/17- removed NG tube X3 and concerned she might pull out peg .. Patient states she would like to eat hamburger . If PO intake gets better plan to d/c NG tube and feeds which she would like to. Discussed with staff . Might need Snf on d/c 01/18: Nocturnal NG tube feeds, continue to increase PO intake. SNF placement in process 01/19: Still minimal PO intake. I spoke to her son, he is wanting to give her more time before placing G tube, he will be coming up on Thursday to discuss further with her on eating vs g tube. We discussed NG tube is not a permanent solution. We also discussed G tube vs hospice care, this is not something they would want to pursue at this time. 01/20: Little to no intake yesterday. Son to come to bedside tomorrow to discuss g tube. Replace potassium 01/21: Son to meet with his mom at bedside today and will update on care plan of G tube vs hospice care 01/22: Fever and change in mentation last night. Cardona cultures, CXR and abd xr done stat without any clear infection source found. Started on IV vanc and cefepime. Blood cultures still pending, Mentation back to normal after fever resolved with Tylenol. Son was able to visit last night, patient and family both wish to pursue G tube placement tomorrow. 01/23: Fevers have resolved. Discussed feeding tube with IR, will need to be done tomorrow due to Eliquis use. I called son, no answer. 01/24: G tube placement today. Likely dc tomorrow if tolerating tube feeds. SUBJECTIVE: The patient is seen resting in bed, nurse present. She is awake and alert, no new concerns. OBJECTIVE: Temp (24hrs), Av.6 ??F (37 ??C), Min:97.9 ??F (36.6 ??C), Max:99.8 ??F (37.7 ??C) BP (P) 117/69 (BP Location: Right arm, Patient Position (BP): Supine) Pulse (P) 97 Temp 97.9 ??F (36.6 ??C) (Oral) Resp (P) 19 Wt 69.4 kg (153 lb) SpO2 (P) 98% BMI 24.69 kg/m?? Intake/Output Summary (Last 24 hours) at 01/24/2025 1201 Last data filed at 01/24/2025 0503 Gross per 24 hour Intake -- Output 2325 ml Net -2325 ml Last documented weight: Weight: 69.4 kg (153 lb) (01/24/25 0457) EXAM: General: Awake, alert, NAD Neurologic: Grossly normal. Oriented X3. NG tube + HEENT: atraumatic, Normocephalic, without obvious abnormality Lungs: clear to auscultation bilaterally, normal respiratory effort Heart: normal rate and regular rhythm, S1 and S2 normal Abdomen: soft,non tender. Bowel sounds present . Ostomy + with surrounding erythema. Ostomy with liquid green stool Extremities: intact distal pulses, moves all extremities equally Skin: Warm and dry LABORATORY: Recent Labs 01/23/25 0909 01/24/25 0337 WBC 6.3 7.1 HGB 11.7* 9.9* HCT 36.4 30.1* PLT 366 389 Recent Labs 01/21/25 1345 01/22/25 0521 01/23/25 0603 01/24/25 0337 NA -- 140 139 137 K 3.9 3.3* 4.0 2.9* CL -- 103 102 100 CO2 -- CA -- 8.6* 8.8 8.8 BUN -- 6* 6* 7* CREAT -- 0.47* 0.45* 0.50* GLUCOSE -- 105* 90 120* No results for input(s): TOTALPROTEIN , ALBUMIN , BILITOTAL , ALKPHOS , AST , ALT in the last 72 hours. Recent Labs 01/24/25 0736 INR 1.0 PT 13.8 No results for input(s): CPK , CKMB , TROPONIN in the last 72 hours. Diagnostic testing reviewed by me: Medications reviewed by me ASSESSMENT AND PLAN: Principal Problem: Acute C. difficile colitis Active Problems: Protein-calorie malnutrition, moderate Colostomy status (CMS/HCC) Confusion A-fib (CMS/HCC) Elevated troponin Chest discomfort UTI (urinary tract infection) Fever Plan Fever, resolved - Occurred 01/21, no clear source for infection - Cardona cultured, so far no growth. CXR and UA do not indicate obvious infection source - Will await final cultures but will do a 5 days course then stop antibiotics. This will increase duration of dificid need - D4/5 of antibiotics C diff colitis - Continue Dificid - Noted loose stool in colostomy bag, she is also back on IV abx so will continue dificid at this time Recent perforated diverticulitis status post colostomy - Colostomy in place but there is notable erythema surrounding wound - Continue consult for erythema, appreciate assistance - Outpatient surgery follow-up Moderate protein calorie malnutrition - Poor p.o. intake - G-tube to be placed today, resume Eliquis tomorrow History of A-fib - Continue beta-mike - Hold Eliquis for g tube, resume in am Elevated troponins at time of admission - Mildly elevated and troponin trend was flat - No chest pain - Echo from November 2024 reviewed - Monitor at this time Hypokalemia - replaced MPCMN - G tube placement today Nutrition Status: Malnutrition Nutrition Diagnosis: Moderate protein-calorie malnutrition Provider Assessment/Plan: Symptoms/Signs/Physical Exam: Muscle Wasting, Poor Appetite, Eating Poorly, Weakness, and Fatigue Etiology: Chronic illness Nutrition Treatment Plan: Supplements as needed, NG tube feeds - Current Diet and/or Nutritional Supplementation ordered: DIET SUPPLEMENT GEN ADULT TID DIET NPO See Comments, - Daily weights Impact of Malnutrition on patient condition and outcomes: Increased risk of infection, Delayed recovery, Decreased activity tolerance and reduced mobility , Poor wound healing, Increased readmission risk, and Increased hospitalization length DVT prevention: eliquis Disposition- Anticipated Disposition Location: SNF Anticipated Disposition Timeframe: tomorrow Disposition Criteria: tolerating tube feeds Disposition Education Needed: C diff Disposition DME/Equipment Needs: TBD CODE STATUS: Full Code Erendira Jackson MD 01/24/2025, 12:01 PM * Loan Trejo RN - 01/24/2025 11:33 AM CDT Imaging Nurse Post Procedure Note (left blank = NA) G tube placement Dressing (x by appropriate choice): tegaderm: Bandaid: Percustay: Gauze/tape: x Dermabond: Steristrips: Sureseal: Other: Dressing location: abdomen Cumulative Dose : plane A: 2 Plane B: (units in mGy) Dose Area Product (DAP) : plane A: 54.04 Plane B: (units in mGy-cm2) All interventional radiology devices/equipment that were utilized during this case were removed intact as reported per fiber technologist Sedation time: 35 (min) (may also be documented via sedation tracking in sedation navigator) Report: Called to Imaging RN: Called to nurse on floor/unit: Written SBAR on chart: Tolerated well: x Other: Medications given: 4mg versed, 200mcg fentanyl * Olive Jones PHARMACIST - 01/24/2025 11:07 AM CDT Vancomycin Consult to Pharmacy Current Antibiotic Therapies Vancomycin Day # 4 Also receiving ceftriaxone and fidaxomicin Serum creatinine: 0.5 mg/dL (L) 01/24/25 0337 Estimated creatinine clearance: 46.9 mL/min (A) NOTE: This calculation is potentially inaccurate in acute and/or chronic kidney disease and over/under weight patients, and thus is only an estimation of renal function Assessment: Tiffany Sexton is a 74 y.o. female who is currently receiving Vancomycin 1250 mg q24h for sepsis. WBC WNL, patient has been afebrile with Tmax last 24 hrs of 99.8 ??F, cultures NGTD. Renal function appears stable at this time as Scr has been consistent at 0.4-0.5 mg/dL (0.5 mg/dL today) and urine output has been stable around 0.7 mL/kg/hr. No levels have been checked as of yet but we are currently utilizing a trough-only monitoring plan on this patient with target of 11-15 mcg/mL. Plan: 1. Continue vancomycin 1250 mg q24h. 2. Trough level on 01/24 and adjust dose if needed at that time. 3. Continue to monitor renal function daily. Pharmacy will continue to monitor the patient's labs. We will follow-up with daily progress note for Vancomycin and Aminoglycoside Consults and will write a progress note in the future if any additional dosage adjustment is needed on other renal consults. Subjective/Objective: Tiffany Sexton is a 74 y.o. female Temp (24hrs), Av.6 ??F (37 ??C), Min:97.9 ??F (36.6 ??C), Max:99.8 ??F (37.7 ??C) BP 124/71 (BP Location: Right arm) Pulse 90 Temp 97.9 ??F (36.6 ??C) (Oral) Resp 15 Wt 69.4kg (153 lb) SpO2 100% BMI 24.69 kg/m?? WBC Date/Time Value Ref Range Status 01/24/2025 03:37 AM 7.1 4.8 - 10.8 K/uL Final 01/23/2025 09:09 AM 6.3 4.8 - 10.8 K/uL Final 01/20/2025 04:43 AM 5.3 4.8 - 10.8 K/uL Final PLATELETS Date/Time Value Ref Range Status 01/24/2025 03:37 AM 389 140 - 440 K/uL Final 01/23/2025 09:09 AM 366 140 - 440 K/uL Final 01/20/2025 04:43 AM 344 140 - 440 K/uL Final BUN Date/Time Value Ref Range Status 01/24/2025 03:37 AM 7 (L) 8 - 23 mg/dL Final 01/23/2025 06:03 AM 6 (L) 8 - 23 mg/dL Final 01/22/2025 05:21 AM 6 (L) 8 - 23 mg/dL Final CREATININE Date/Time Value Ref Range Status 01/24/2025 03:37 AM 0.50 (L) 0.51 - 0.95 mg/dL Final Comment: The GFR result is not clinically significant on patients <18 or >70 years of age. 01/23/2025 06:03 AM 0.45 (L) 0.51 - 0.95 mg/dL Final Comment: The GFR result is not clinically significant on patients <18 or >70 years of age. 01/22/2025 05:21 AM 0.47 (L) 0.51 - 0.95 mg/dL Final Comment: The GFR result is not clinically significant on patients <18 or >70 years of age. Thank you for the consult and involving us in the care of this patient, we will continue to monitor. WINIFRED Licea * Brittani Jo, Occupational Therapist - 01/24/2025 9:51 AM CDT Attempted to see patient for OT treatment. Patient/Family chose not to participate in therapy due to I just don't feel like it . Will continue with attempts for evaluation/established plan of care. Thank you, Brittani Jo, Occupational Therapist * Olive Jones, PHARMACIST - 01/23/2025 11:28 AM CDT Vancomycin Consult to Pharmacy Current Antibiotic Therapies Vancomycin Day # 3 Also receiving ceftriaxone and fidaxomicin Serum creatinine: 0.45 mg/dL (L) 01/23/25 0603 Estimated creatinine clearance: 52.9 mL/min (A) NOTE: This calculation is potentially inaccurate in acute and/or chronic kidney disease and over/under weight patients, and thus is only an estimation of renal function Assessment: Tiffany Sexton is a 74 y.o. female who is currently receiving Vancomycin 1250 mg q24h for sepsis. WBC WNL, patient has been afebrile with Tmax last 24 hrs of 98.5 ??F, cultures NGTD. Renal function appears stable at this time as Scr has been consistent at 0.4-0.5 mg/dL (0.45 mg/dL today) while urine output appears slightly low at 0.2 mL/kg/h + 1 unmeasured void. No levels have been checked as of yet but we are currently utilizing a trough-only monitoring plan on this patient with target of 11-15 mcg/mL. Plan: 1. Continue vancomycin 1250 mg q24h. 2. Trough level on 01/24 and adjust dose if needed at that time. 3. Continue to monitor renal function daily. Pharmacy will continue to monitor the patient's labs. We will follow-up with daily progress note for Vancomycin and Aminoglycoside Consults and will write a progress note in the future if any additional dosage adjustment is needed on other renal consults. Subjective/Objective: Tiffany Sexton is a 74 y.o. female Temp (24hrs), Av.1 ??F (36.7 ??C), Min:97.4 ??F (36.3 ??C), Max:98.5 ??F (36.9 ??C) BP 121/81 (BP Location: Left arm, Patient Position (BP): Supine) Pulse 91 Temp 98.4 ??F (36.9 ??C) (Temporal) Resp 18 Wt 78.4 kg (172 lb 13.5 oz) SpO2 100% BMI 27.90 kg/m?? WBC Date/Time Value Ref Range Status 01/23/2025 09:09 AM 6.3 4.8 - 10.8 K/uL Final 01/20/2025 04:43 AM 5.3 4.8 - 10.8 K/uL Final 01/19/2025 04:44 AM 6.4 4.8 - 10.8 K/uL Final PLATELETS Date/Time Value Ref Range Status 01/23/2025 09:09 AM 366 140 - 440 K/uL Final 01/20/2025 04:43 AM 344 140 - 440 K/uL Final 01/19/2025 04:44 AM 391 140 - 440 K/uL Final BUN Date/Time Value Ref Range Status 01/23/2025 06:03 AM 6 (L) 8 - 23 mg/dL Final 01/22/2025 05:21 AM 6 (L) 8 - 23 mg/dL Final 01/21/2025 04:25 AM 5 (L) 8 - 23 mg/dL Final CREATININE Date/Time Value Ref Range Status 01/23/2025 06:03 AM 0.45 (L) 0.51 - 0.95 mg/dL Final Comment: The GFR result is not clinically significant on patients <18 or >70 years of age. 01/22/2025 05:21 AM 0.47 (L) 0.51 - 0.95 mg/dL Final Comment: The GFR result is not clinically significant on patients <18 or >70 years of age. 01/21/2025 04:25 AM 0.45 (L) 0.51 - 0.95 mg/dL Final Comment: The GFR result is not clinically significant on patients <18 or >70 years of age. Thank you for the consult and involving us in the care of this patient, we will continue to monitor. Olive Jones, PHARMACIST * Gayla Mojica, COMMUNICATIONS TECHNOLOGIST - 01/23/2025 10:54 AM CDT [facility]. ; Fax. Acute Speech-Language Pathology Swallow Evaluation 01/23/2025 Room: [address] [place] [address] Name: Tiffany Sexton Age: 74 y.o. Date of : 1950 Insurance: Payor: MEDICARE / Plan: MEDICARE PART A AND B / Product Type: Medicare / Patient class: Inpatient Confirmed patient's identification of name and date of : on name band and by patient report Consent to treatment given by patient and nurse with results as follows: Onset of illness/injury or date of surgery: 01/12/2025 HPI Tiffany Sexton is a 74 y.o. female with perforated diverticulitis s/p colostomy, recent history of C. Difficile status post deficid transferred from OSH for AMS, lethargy, C Diff colitis Subjective Information and Clinical Observations Patient/Family Goals Statement: I don't like the taste of that Pain: Refer to Doc Flowsheet for documented pain levels. Level of Alertness: Drowsy Mood/Affect: Patient participates with encouragement Position: Upright in bed Circumstances negatively impacting performance this date: fatigue Objective information Predisposing dysphagia risk factors: GERD and Camargo's esophagus Acute dysphagia risk factors: altered mental status, presence of NG tube, and limited or infrequentambulation Signs of possible chronic dysphagia: unintentional weight loss and prior history of COMMUNICATIONS TECHNOLOGIST intervention via MBS completed on 09/14/24. Results revealed Pt presents with moderate oropharyngeal dysphagiaas confirmed by physiologic impairments noted on MBS. Pt's dysphagia is likely secondary to overalldebility and recent prolonged intubation. Swallow safety is impaired; swallow efficiency is impaired . Recommend NPO with ice chips for oral comfort and to reduce the risk for disuse atrophy. During this admission, patient also seen for a clinical swallow evaluation on 01/14/24. Results revealed, Patient presents with no overt clinical signs of oropharyngeal dysphagia. No overt s/s of distress present with any po trials provided during evaluation. No apparent vocal quality changes appreciated. Pt did gag on applesauce and appeared averse to peaches and tod cracker. She cited texture sensitivity as the reason for her response but suspect chronic poor appetite may be contributing. Recommend regular diet and thin liquids. Pt would benefit from assistance to order preferred foods from the menu to stimulate her appetite. Nurse aware. No further need for swallowing intervention. Previous level of swallowing function: No difficulty reported Diet prior to evaluation: NPO Patient has Large bore NG tube and is on room air Patient has food allergies: None per patient or chart review. The patient required [id number] assistance for provision of po trials. Oral Musculature Structure and Function CN V: facial sensation intact bilaterally and jaw movement intact bilaterally CN VII: facial movement intact bilaterally CN IX/X: palate rises symmetrically CN XII: lingual movement intact bilaterally and tongue protrudes to midline Dentition: present and adequate Oral Mucosa: WFL Secretion Management:WFL Laryngeal Function: WFL Vocal Quality: weak Oral Phase Lip Seal: WFL Mastication: not assessed Oral Transit: delayed Bolus Clearance: WFL Oral phase summary: impaired Pharyngeal Phase Laryngeal Elevation: suspect reduced elevation Ice Chip Trials: The patient demonstrated no signs/symptoms of distress on ice chips provided. Thin liquid: Patient demonstrated throat clear response, strong cough response, and delayed cough response via spoon and small bore straw. [place] thick liquids: Patient demonstrated throat clear response. Puree: Patient demonstrated no signs/symptoms of distress. Clinical representation of potential pharyngeal aspiration suspected: Yes Pharyngeal phase summary: deficits suspected Swallowing Strategies and Interventions Liquid from a spoon Large volume drinks via small bore straw Small bites of food Esophageal Phase Screening Questionnaire Patient reports: Sternal and Pharyngeal globus sensation: Yes Meat dysphagia: No Pill dysphagia: Yes-sometimes Bread dysphagia: No Regurgitation: Yes-sometimes Heartburn/acid indigestion: Yes. Symptoms/Frequency: complains of occasional heartburn, indigestion History of GERD per H&P: Yes. Excessive belching during/after meals: No Early satiety: Yes-sometimes GI consult consideration: Not at this time Assessment Patient drowsy, but participatory with encouragement during evaluation this date. No visitors present at bedside. Patient presents with clinical signs of oropharyngeal dysphagia, likely [id number] related toAMS and generalized weakness. Modified barium swallow study is indicated at this time. Recommend MBS to determine laryngeal/pharyngeal functioning and safest diet. To indicate the medical necessity of this procedure please add Dysphagia, Unspecified to the problem list. S/s of distress present with liquid trials this date. Discussed plan to complete MBS study with patient on Thursday following feeding tube placement with patient, RN and MD. All in agreement with plan. Swallowing Recommendations DIET RECOMMENDATIONS: NPO (pending MBS) Allow ice chips for oral comfort and to reduce risk of disuse atrophy: Ensure patient is sitting upright before providing ice chips Provide 1-2 at a time 100% supervision Ensure good oral care prior to providing ice chips (confirm with visual inspection) Only provide when alert If significant coughing occurs, discontinue ice chips PATIENT SPECIFIC SWALLOWING GUIDELINES: Strict Aspiration Precautions HOB > 30 Degrees Oral Care every two hours Monitor for s/s Aspiration Please use suction toothbrush for oral care and NPO spray bottle for oral comfort. Recommendations DISCHARGE RECOMMENDATIONS: Intermediate Facility * The final discharge location is determined through physician, case management, and patient/caregiver input along with insurance authorization of skilled services when appropriate Recommendations for referral to another service: None at this time Precautions Plan of Care Patient precautions: Aspiration, Fall, and Seizure Pending MBS results. Education Disposition Regarding: swallowing evaluation rationale, results and recommendations of evaluation, rationale ofMBS, risk of aspiration with po intake, implications of aspiration, importance of oral care, and speech therapy plan of care Learner, method of education, and response to learning listed in Education tab in Epic Before session: Patient lying in bed After session: Patient lying in bed, call light in reach, and bed alarm in place Current Diagnoses/Past Medical History Pertinent diagnoses and past medical history related to this hospital stay are present in physicianH&P and physician daily notes. Prior to session, completed thorough chart review. Reviewed prior therapy treatment notes as applicable. Further treatment notes and therapeutic goals can be found in Care Plan Notes. If the patient discharges from facility prior to another therapy visit, this shall serve as the therapy discharge summary Thank you for this referral, Gena Mojica M.S. [facility]-COMMUNICATIONS TECHNOLOGIST Acute Speech Therapy Charge Zone Phone #[phone] Acute Speech Therapy Charge Pager #[phone] * Erendira Jackson MD - 01/23/2025 10:41 AM CDT [facility] Hospitalist/Internal Medicine Progress note LOS: LOS: 11 days HOSPITAL COURSE SUMMARY: 74 y/o female with perforated diverticulitis s/p colostomy, recent history of C. Difficile status post deficid transferred from OSH for AMS, lethargy, C Diff colitis Patient reportedly has CT of the abdomen pelvis showing no obstruction. Patient reportedly had CT angiogram of the chest showing no pulmonary embolism 01/14- off cardizem drip. On PO atenolol. HR in 80's . Encourage PO. Replete lytes 01/15- increase activity . Encourage PO . PT 01/16- hold tube feeds during day and encourage PO . Increase activity 01/17- removed NG tube X3 and concerned she might pull out peg .. Patient states she would like to eat hamburger . If PO intake gets better plan to d/c NG tube and feeds which she would like to. Discussed with staff . Might need Snf on d/c 01/18: Nocturnal NG tube feeds, continue to increase PO intake. SNF placement in process 01/19: Still minimal PO intake. I spoke to her son, he is wanting to give her more time before placing G tube, he will be coming up on Thursday to discuss further with her on eating vs g tube. We discussed NG tube is not a permanent solution. We also discussed G tube vs hospice care, this is not something they would want to pursue at this time. 01/20: Little to no intake yesterday. Son to come to bedside tomorrow to discuss g tube. Replace potassium 01/21: Son to meet with his mom at bedside today and will update on care plan of G tube vs hospice care 01/22: Fever and change in mentation last night. Cardona cultures, CXR and abd xr done stat without any clear infection source found. Started on IV vanc and cefepime. Blood cultures still pending, Mentation back to normal after fever resolved with Tylenol. Son was able to visit last night, patient and family both wish to pursue G tube placement tomorrow. 01/23: Fevers have resolved. Discussed feeding tube with IR, will need to be done tomorrow due to Eliquis use. I called son, no answer. SUBJECTIVE: The patient is seen resting in bed, charge nurse present. She is fatigued but easily wakes for exam. No new concerns, we discussed feeding tube to be done tomorrow. OBJECTIVE: Temp (24hrs), Av.1 ??F (36.7 ??C), Min:97.4 ??F (36.3 ??C), Max:98.5 ??F (36.9 ??C) BP 121/81 (BP Location: Left arm, Patient Position (BP): Supine) Pulse 91 Temp 98.4 ??F (36.9 ??C) (Temporal) Resp 18 Wt 78.4 kg (172 lb 13.5 oz) SpO2 100% BMI 27.90 kg/m?? Intake/Output Summary (Last 24 hours) at 01/23/2025 1041 Last data filed at 01/23/2025 0400 Gross per 24 hour Intake 150 ml Output 650 ml Net -500 ml Last documented weight: Weight: 78.4 kg (172 lb 13.5 oz) (01/23/25 0500) EXAM: General: fatigued, in no distress. Neurologic: Grossly normal. Oriented X3. NG tube + HEENT: atraumatic, Normocephalic, without obvious abnormality Lungs: clear to auscultation bilaterally, normal respiratory effort Heart: normal rate and regular rhythm, S1 and S2 normal Abdomen: soft,non tender. Bowel sounds present . Ostomy + with surrounding erythema. Ostomy with liquid green stool Extremities: intact distal pulses, moves all extremities equally Skin: Warm and dry LABORATORY: Recent Labs 01/23/25 0909 WBC 6.3 HGB 11.7* HCT 36.4 PLT 366 Recent Labs 01/21/25 0425 01/21/25 1345 01/22/25 0521 01/23/25 0603 NA 141 -- 140 139 K 3.2* 3.9 3.3* 4.0 CL 103 -- 103 102 CO2 26 -- 24 23 CA 8.7* -- 8.6* 8.8 BUN 5* -- 6* 6* CREAT 0.45* -- 0.47* 0.45* GLUCOSE 109* -- 105* 90 No results for input(s): TOTALPROTEIN , ALBUMIN , BILITOTAL , ALKPHOS , AST , ALT in the last 72 hours. No results for input(s): INR , PT in the last 72 hours. Invalid input(s): PTT No results for input(s): CPK , CKMB , TROPONIN in the last 72 hours. Diagnostic testing reviewed by me: Medications reviewed by me ASSESSMENT AND PLAN: Principal Problem: Acute C. difficile colitis Active Problems: Protein-calorie malnutrition, moderate Colostomy status (CMS/HCC) Confusion A-fib (CMS/HCC) Elevated troponin Chest discomfort UTI (urinary tract infection) Fever Plan Fever - Occurred 01/21 - Cardona cultured, so far no growth. CXR and UA do not indicate obvious infection source - Will await final cultures but will do a 5 days course then stop antibiotics. This will increase duration of dificid need C diff colitis - Continue Dificid - Noted loose stool in colostomy bag, she is also back on IV abx so will continue dificid at this time Recent perforated diverticulitis status post colostomy - Colostomy in place but there is notable erythema surrounding wound - Continue consult for erythema, appreciate assistance - Outpatient surgery follow-up Moderate protein calorie malnutrition - Poor p.o. intake - G-tube ordered, will be done tomorrow due to timing of Eliquis History of A-fib - Continue beta-mike - Hold Eliquis for g tube Elevated troponins at time of admission - Mildly elevated and troponin trend was flat - No chest pain - Echo from November 2024 reviewed - Monitor at this time Hypokalemia - replaced Nutrition Status: Malnutrition Nutrition Diagnosis: Moderate protein-calorie malnutrition Provider Assessment/Plan: Symptoms/Signs/Physical Exam: Muscle Wasting, Poor Appetite, Eating Poorly, Weakness, and Fatigue Etiology: Chronic illness Nutrition Treatment Plan: Supplements as needed, NG tube feeds - Current Diet and/or Nutritional Supplementation ordered: DIET SUPPLEMENT GEN ADULT TID DIET NPO - Daily weights Impact of Malnutrition on patient condition and outcomes: Increased risk of infection, Delayed recovery, Decreased activity tolerance and reduced mobility , Poor wound healing, Increased readmission risk, and Increased hospitalization length DVT prevention: eliquis Disposition- Anticipated Disposition Location: SNF Anticipated Disposition Timeframe: 2-3 days Disposition Criteria: G tube placement and fevers resolved Disposition Education Needed: C diff Disposition DME/Equipment Needs: TBD CODE STATUS: Full Code Erendira Jackson MD 01/23/2025, 10:41 AM * Erendira Jackson MD - 01/22/2025 10:50 AM CDT [facility] Progress [facility] LOS: LOS: 10 days HOSPITAL COURSE SUMMARY: 74 y/o female with perforated diverticulitis s/p colostomy, recent history of C. Difficile status post deficid transferred from OSH for AMS, lethargy, C Diff colitis Patient reportedly has CT of the abdomen pelvis showing no obstruction. Patient reportedly had CT angiogram of the chest showing no pulmonary embolism 01/14- off cardizem drip. On PO atenolol. HR in 80's . Encourage PO. Replete lytes 01/15- increase activity . Encourage PO . PT 01/16- hold tube feeds during day and encourage PO . Increase activity 01/17- removed NG tube X3 and concerned she might pull out peg .. Patient states she would like to eat hamburger . If PO intake gets better plan to d/c NG tube and feeds which she would like to. Discussed with staff . Might need Snf on d/c 01/18: Nocturnal NG tube feeds, continue to increase PO intake. SNF placement in process 01/19: Still minimal PO intake. I spoke to her son, he is wanting to give her more time before placing G tube, he will be coming up on Thursday to discuss further with her on eating vs g tube. We discussed NG tube is not a permanent solution. We also discussed G tube vs hospice care, this is not something they would want to pursue at this time. 01/20: Little to no intake yesterday. Son to come to bedside tomorrow to discuss g tube. Replace potassium 01/21: Son to meet with his mom at bedside today and will update on care plan of G tube vs hospice care 01/22: Fever and change in mentation last night. Cardona cultures, CXR and abd xr done stat without any clear infection source found. Started on IV vanc and cefepime. Blood cultures still pending, Mentation back to normal after fever resolved with Tylenol. Son was able to visit last night, patient and family both wish to pursue G tube placement tomorrow. SUBJECTIVE: As above, mentation back to baseline. She tells me she wants to continue aggressive medical management and would like to proceed with a G tube. OBJECTIVE: Temp (24hrs), Av.9 ??F (37.7 ??C), Min:98.6 ??F (37 ??C), Max:101.6 ??F (38.7 ??C) BP 108/63 (BP Location: Right arm, Patient Position (BP): Supine) Pulse 90 Temp 98.6 ??F (37 ??C) (Oral) Resp 17 Wt 80.1 kg (176 lb 9.6 oz) SpO2 99% BMI 28.50 kg/m?? Intake/Output Summary (Last 24 hours) at 01/22/2025 1050 Last data filed at 01/22/2025 1000 Gross per 24 hour Intake 120 ml Output 920 ml Net -800 ml Last documented weight: Weight: 80.1 kg (176 lb 9.6 oz) (01/20/25 0543) EXAM: General: alert, in no distress. Neurologic: Grossly normal. Oriented X3. NG tube + HEENT: atraumatic, Normocephalic, without obvious abnormality Lungs: clear to auscultation bilaterally, normal respiratory effort Heart: normal rate and regular rhythm, S1 and S2 normal Abdomen: soft,non tender. Bowel sounds present . Ostomy + with surrounding erythema. Ostomy with liquid green stool Extremities: intact distal pulses, moves all extremities equally Skin: Warm and dry LABORATORY: Recent Labs 01/20/25 0443 WBC 5.3 HGB 9.5* HCT 30.0* PLT 344 Recent Labs 01/20/25 0442 01/21/25 0425 01/21/25 1345 01/22/25 0521 NA 141 141 -- 140 K 3.3* 3.2* 3.9 3.3* CL 105 103 -- 103 CO2 24 26 -- 24 CA 8.7* 8.7* -- 8.6* BUN 4* 5* -- 6* CREAT 0.40* 0.45* -- 0.47* GLUCOSE 118* 109* -- 105* No results for input(s): TOTALPROTEIN , ALBUMIN , BILITOTAL , ALKPHOS , AST , ALT in the last 72 hours. No results for input(s): INR , PT in the last 72 hours. Invalid input(s): PTT No results for input(s): CPK , CKMB , TROPONIN in the last 72 hours. Diagnostic testing reviewed by me: Medications reviewed by me ASSESSMENT AND PLAN: Principal Problem: Acute C. difficile colitis Active Problems: Protein-calorie malnutrition, moderate Colostomy status (CMS/HCC) Confusion A-fib (CMS/HCC) Elevated troponin Chest discomfort UTI (urinary tract infection) Plan Fever - Occurred 01/21 - Cardona cultures. CXR and UA do not indicate obvious infection source - Will await final cultures C diff colitis - Continue Dificid - Noted loose stool in colostomy bag, she is also back on IV abx so will continue dificid at this time Recent perforated diverticulitis status post colostomy - Colostomy in place but there is notable erythema surrounding wound - Continue consult for erythema, appreciate assistance - Outpatient surgery follow-up Moderate protein calorie malnutrition - Poor p.o. intake - Family discussion last night, will proceed with g tube placement in am History of A-fib - Continue beta-mike - Hold Eliquis for g tube Elevated troponins at time of admission - Mildly elevated and troponin trend was flat - No chest pain - Echo from November 2024 reviewed - Monitor at this time Hypokalemia - replacement ordered again - Repeat lab in afternoon Nutrition Status: Malnutrition Nutrition Diagnosis: Moderate protein-calorie malnutrition Provider Assessment/Plan: Symptoms/Signs/Physical Exam: Muscle Wasting, Poor Appetite, Eating Poorly, Weakness, and Fatigue Etiology: Chronic illness Nutrition Treatment Plan: Supplements as needed, NG tube feeds - Current Diet and/or Nutritional Supplementation ordered: DIET SUPPLEMENT GEN ADULT TID DIET NPO - Daily weights Impact of Malnutrition on patient condition and outcomes: Increased risk of infection, Delayed recovery, Decreased activity tolerance and reduced mobility , Poor wound healing, Increased readmission risk, and Increased hospitalization length DVT prevention: eliquis Disposition- Anticipated Disposition Location: [facility] Anticipated Disposition Timeframe: 2-3 days Disposition Criteria: G tube placement and fevers resolved Disposition Education Needed: C diff Disposition DME/Equipment Needs: TBD CODE STATUS: Full Code Erendira Jackson MD 01/22/2025, 10:50 AM * Harrison Johnson, PHARMACIST - 01/22/2025 10:34 AM CDT Vancomycin Consult to Pharmacy Current Antibiotic Therapies Vancomycin Day # 2 Also receiving ceftriaxone Fluid Assessment: Urine output does not appear strictly measured in EPIC Serum creatinine: 0.47 mg/dL (L) 01/22/25 0521 Estimated creatinine clearance: 53.5 mL/min (A) NOTE: This calculation is potentially inaccurate in acute and/or chronic kidney disease and over/under weight patients, and thus is only an estimation of renal function Assessment: Tiffany Sexton is a 74 y.o. female who is currently receiving Vancomycin 1250mg every 24 hours for suspected sepsis. WBC 5.3K/uL, patient has been febrile with Tmax last 24 hrs of 101.6 ??F, blood cultures negative to date. Renal function appears stable at this time as Scr has been consistent at 0.4-0.5mg/dL (0.47mg/dL today) while urine output appears adequate between measured and unmeasured voids. No levels have been checked as of yet but we are currently utilizing a trough-only monitoring plan on this patient with target of 11-15 mcg/mL.. Plan: 1. Continue vancomycin 1250 mg q 24 hrs. 2. Trough level on Thursday evening and adjust dose if needed at that time. 3. Continue to monitor renal function daily. Pharmacy will continue to monitor the patient's labs. We will follow-up with daily progress note for Vancomycin and Aminoglycoside Consults and will write a progress note in the future if any additional dosage adjustment is needed on other renal consults. Subjective/Objective: Tiffany Sexton is a 74 y.o. female Temp (24hrs), Av.9 ??F (37.7 ??C), Min:98.6 ??F (37 ??C), Max:101.6 ??F (38.7 ??C) BP 108/63 (BP Location: Right arm, Patient Position (BP): Supine) Pulse 90 Temp 98.6 ??F (37 ??C) (Oral) Resp 17 Wt 80.1 kg (176 lb 9.6 oz) SpO2 99% BMI 28.50 kg/m?? WBC Date/Time Value Ref Range Status 01/20/2025 04:43 AM 5.3 4.8 - 10.8 K/uL Final 01/19/2025 04:44 AM 6.4 4.8 - 10.8 K/uL Final 01/14/2025 12:59 AM 3.8 (L) 4.8 - 10.8 K/uL Final PLATELETS Date/Time Value Ref Range Status 01/20/2025 04:43 AM 344 140 - 440 K/uL Final 01/19/2025 04:44 AM 391 140 - 440 K/uL Final 01/14/2025 12:59 AM 294 140 - 440 K/uL Final BUN Date/Time Value Ref Range Status 01/22/2025 05:21 AM 6 (L) 8 - 23 mg/dL Final 01/21/2025 04:25 AM 5 (L) 8 - 23 mg/dL Final 01/20/2025 04:42 AM 4 (L) 8 - 23 mg/dL Final CREATININE Date/Time Value Ref Range Status 01/22/2025 05:21 AM 0.47 (L) 0.51 - 0.95 mg/dL Final Comment: The GFR result is not clinically significant on patients <18 or >70 years of age. 01/21/2025 04:25 AM 0.45 (L) 0.51 - 0.95 mg/dL Final Comment: The GFR result is not clinically significant on patients <18 or >70 years of age. 01/20/2025 04:42 AM 0.40 (L) 0.51 - 0.95 mg/dL Final Comment: The GFR result is not clinically significant on patients <18 or >70 years of age. Thank you for the consult and involving us in the care of this patient, we will continue to monitor. Harrison Johnson, PHARMACIST * Indiana Cruz, PHARMACIST - 01/21/2025 6:10 PM CDT Vancomycin Consult to Pharmacy Current Antibiotic Therapies Vancomycin Day # 1 Also receiving ceftriaxone Serum creatinine: 0.45 mg/dL (L) 01/21/25 0425 Estimated creatinine clearance: 53.5 mL/min (A) NOTE: This calculation is potentially inaccurate in acute and/or chronic kidney disease and over/under weight patients, and thus is only an estimation of renal function Assessment: Tiffany Sexton is a 74 y.o. female who is starting Vancomycin per pharmacy to dose for suspected sepsis. Dosing body weight is 68 kg (AdjW), baseline labs are as follows: Scr 0.45, est CrCl 53.5 mL/min. Plan: 1. Begin vancomycin 1250 mg IV Q24H. 2. We will initially plan to utilize trough-only monitoring on this patient with a target trough of11-15 mcg/mL. Plan level on 01/24 and adjust dose if needed at that time. 3. Continue to monitor renal function daily. Pharmacy will continue to monitor the patient's labs. We will follow-up with daily progress note for Vancomycin and Aminoglycoside Consults and will write a progress note in the future if any additional dosage adjustment is needed on other renal consults. Subjective/Objective: Tiffany Sexton is a 74 y.o. female Temp (24hrs), Av.5 ??F (36.9 ??C), Min:96.6 ??F (35.9 ??C), Max:101.6 ??F (38.7 ??C) BP (!) 142/76 (BP Location: Right arm, Patient Position (BP): Supine) Pulse (!) 101 Temp (!) 101.6 ??F (38.7 ??C) (Rectal) Resp 18 Wt 80.1 kg (176 lb 9.6 oz) SpO2 95% BMI 28.50 kg/m?? WBC Date/Time Value Ref Range Status 01/20/2025 04:43 AM 5.3 4.8 - 10.8 K/uL Final 01/19/2025 04:44 AM 6.4 4.8 - 10.8 K/uL Final 01/14/2025 12:59 AM 3.8 (L) 4.8 - 10.8 K/uL Final PLATELETS Date/Time Value Ref Range Status 01/20/2025 04:43 AM 344 140 - 440 K/uL Final 01/19/2025 04:44 AM 391 140 - 440 K/uL Final 01/14/2025 12:59 AM 294 140 - 440 K/uL Final BUN Date/Time Value Ref Range Status 01/21/2025 04:25 AM 5 (L) 8 - 23 mg/dL Final 01/20/2025 04:42 AM 4 (L) 8 - 23 mg/dL Final 01/19/2025 04:44 AM 5 (L) 8 - 23 mg/dL Final CREATININE Date/Time Value Ref Range Status 01/21/2025 04:25 AM 0.45 (L) 0.51 - 0.95 mg/dL Final Comment: The GFR result is not clinically significant on patients <18 or >70 years of age. 01/20/2025 04:42 AM 0.40 (L) 0.51 - 0.95 mg/dL Final Comment: The GFR result is not clinically significant on patients <18 or >70 years of age. 01/19/2025 04:44 AM 0.45 (L) 0.51 - 0.95 mg/dL Final Comment: The GFR result is not clinically significant on patients <18 or >70 years of age. Thank you for the consult and involving us in the care of this patient, we will continue to monitor. Indiana Cruz PHARMACIST * Indiana Cruz PHARMACIST - 01/21/2025 6:07 PM CDT PHARMACY CONSULT SERVICE PROTOCOL: A ???CONSULT TO PHARMACY?? order has been placed on this patient per Hospital Pharmacy policy- [facility] Clinical Pharmacy Services. This order can be found on the [facility] MAR and authorizes pharmacy tomanage the dosing and monitoring of consulted medications as follows: Pharmacy will order the initial doses and any labs deemed clinically necessary to dose a consulted medication. These initial orders will be signed ???Per Protocol?? under the name of the provider who placed the ???CONSULT TO PHARMACY?? order. Pharmacy will have the authority to modify the doses and order any labs deemed clinically necessaryfor consulted medications on subsequent days as long as the ???CONSULT TO PHARMACY?? order remainsactive on the MAR. Orders for dosing changes and follow-up labs will be signed ???Per Protocol?? in [facility]. The name of the provider signed on the follow-up orders for cosignature will be assigned as follows: Consults for patients whose antimicrobials are being managed by members of the Office Machine Technician or Hospitalist physician groups: If the original authorizing provider is no longer the attending physician for the patient, responsibility for cosignature of the follow-up medication orders and labs will transfer from the original authorizing provider to the current attending physician. Consults for patients whose antimicrobials are being managed by any other provider: Responsibility for cosignature of the follow-up medication orders and labs will remain with the original authorizing provider of the ???CONSULT TO PHARMACY?? order. Any attending physician has the authority to cancel pharmacy dosing/monitoring and resume dosing/monitoring of the medications without pharmacy assistance at any time by discontinuing the ???CONSULT TO PHARMACY?? order from the [facility]. This protocol has been approved by the [facility] Pharmacy and Therapeutics Committee. Cosigned by Erendira Jackson MD at 01/22/2025 12:11 PM CDT * Erendira Jackson MD - 01/21/2025 11:02 AM CDT [facility] Hospitalist/Internal Medicine Progress note LOS: LOS: 9 days HOSPITAL COURSE SUMMARY: 74 y/o female with perforated diverticulitis s/p colostomy, recent history of C. Difficile status post deficid transferred from OSH for AMS, lethargy, C Diff colitis Patient reportedly has CT of the abdomen pelvis showing no obstruction. Patient reportedly had CT angiogram of the chest showing no pulmonary embolism 01/14- off cardizem drip. On PO atenolol. HR in 80's . Encourage PO. Replete lytes 01/15- increase activity . Encourage PO . PT 01/16- hold tube feeds during day and encourage PO . Increase activity 01/17- removed NG tube X3 and concerned she might pull out peg .. Patient states she would like to eat hamburger . If PO intake gets better plan to d/c NG tube and feeds which she would like to. Discussed with staff . Might need Snf on d/c 01/18: Nocturnal NG tube feeds, continue to increase PO intake. SNF placement in process 01/19: Still minimal PO intake. I spoke to her son, he is wanting to give her more time before placing G tube, he will be coming up on Thursday to discuss further with her on eating vs g tube. We discussed NG tube is not a permanent solution. We also discussed G tube vs hospice care, this is not something they would want to pursue at this time. 01/20: Little to no intake yesterday. Son to come to bedside tomorrow to discuss g tube. Replace potassium 01/21: Son to meet with his mom at bedside today and will update on care plan of G tube vs hospice care SUBJECTIVE: She continues to have no to very little PO intake. We discussed G tube. She asks to go home and we discussed lack of nitrition. We also discussed hospice care which she is open to. She wishes to speak to her son today about hospice vs G tube. OBJECTIVE: Temp (24hrs), Av.6 ??F (36.4 ??C), Min:96.6 ??F (35.9 ??C), Max:98.1 ??F (36.7 ??C) BP (!) 94/77 (BP Location: Right arm, Patient Position (BP): Lying left side) Comment: Nurse Notified Pulse 97 Temp 98.1 ??F (36.7 ??C) (Temporal) Resp 19 Wt 80.1 kg (176 lb 9.6 oz) SpO2 99% BMI 28.50 kg/m?? Intake/Output Summary (Last 24 hours) at 01/21/2025 1102 Last data filed at 01/21/2025 0358 Gross per 24 hour Intake 589 ml Output -- Net 589 ml Last documented weight: Weight: 80.1 kg (176 lb 9.6 oz) (01/20/25 0543) EXAM: General: alert, in no distress. NG tube + Neurologic: Grossly normal. Oriented X3. NG tube + HEENT: atraumatic, Normocephalic, without obvious abnormality Lungs: clear to auscultation bilaterally, normal respiratory effort Heart: normal rate and regular rhythm, S1 and S2 normal Abdomen:soft,non tender. Bowel sounds present . Ostomy + with surrounding erythema Extremities: intact distal pulses, moves all extremities equally Skin: Warm and dry LABORATORY: Recent Labs 01/19/2544301/20/25 044 WBC 6.4 5.3 HGB 10.3* 9.5* HCT 31.7* 30.0* PLT 391 344 Recent Labs 01/19/25 0444 01/20/25 0442 01/21/25 0425 NA 141 141 141 K 3.4* 3.3* 3.2* CL 105 105 103 CO2 26 24 26 CA 8.9 8.7* 8.7* BUN 5* 4* 5* CREAT 0.45* 0.40* 0.45* GLUCOSE 142* 118* 109* No results for input(s): TOTALPROTEIN , ALBUMIN , BILITOTAL , ALKPHOS , AST , ALT in the last 72 hours. No results for input(s): INR , PT in the last 72 hours. Invalid input(s): PTT No results for input(s): CPK , CKMB , TROPONIN in the last 72 hours. Diagnostic testing reviewed by me: Medications reviewed by me ASSESSMENT AND PLAN: Principal Problem: Acute C. difficile colitis Active Problems: Protein-calorie malnutrition, moderate Colostomy status (CMS/HCC) Confusion A-fib (CMS/HCC) Elevated troponin Chest discomfort UTI (urinary tract infection) Plan C diff colitis - Continue Dificid - Diarrhea resolved Recent perforated diverticulitis status post colostomy - Colostomy in place but there is notable erythema surrounding wound - Continue consult for erythema, appreciate assistance - Outpatient surgery follow-up Moderate protein calorie malnutrition - Poor p.o. intake - NG tube in place but starting to feel hungry during the day. Tube feedings changed to nocturnal feeds only - Continue to encourage p.o. intake and DC NG tube when she is eating enough for her needs - Son to meet with patient today to discuss goals of G tube vs hospice History of A-fib - Continue beta-mike, Eliquis Elevated troponins at time of admission - Mildly elevated and troponin trend was flat - No chest pain - Echo from November 2024 reviewed - Monitor at this time Hypokalemia - replacement ordered again - Repeat lab in afternoon Nutrition Status: Malnutrition Nutrition Diagnosis: Moderate protein-calorie malnutrition Provider Assessment/Plan: Symptoms/Signs/Physical Exam: Muscle Wasting, Poor Appetite, Eating Poorly, Weakness, and Fatigue Etiology: Chronic illness Nutrition Treatment Plan: Supplements as needed, NG tube feeds - Current Diet and/or Nutritional Supplementation ordered: DIET TUBE FEEDING Elemental 1.2,; Feeding Method: Continuous; Initial Volume in mL/hour: 20; Goal Volume in mL/hour: 60; Feeding Advancement: 10 ml q6h; Water Flush: 150 ml q6h DIET GENERAL Effective Now DIET SUPPLEMENT GEN ADULT TID - Daily weights Impact of Malnutrition on patient condition and outcomes: Increased risk of infection, Delayed recovery, Decreased activity tolerance and reduced mobility , Poor wound healing, Increased readmission risk, and Increased hospitalization length DVT prevention: eliquis Disposition- Anticipated Disposition Location: SNF Anticipated Disposition Timeframe: Thursday Disposition Criteria: Eating better and NG tube is out vs G tube Disposition Education Needed: C diff Disposition DME/Equipment Needs: TBD CODE STATUS: Full Code Erendira Jackson MD 01/21/2025, 11:02 AM * Nevin Saba, RD - 01/20/2025 3:31 PM CDT Nutritional Status/Recommendations/Plan for Follow up: Pt receiving general diet with ONS and nocturnal TF. Pt reports she is eating well and has a good appetite. At RD visit pt still had her tray and stated she ate good. She still had a full hamburger and all of her fries on her plate. Graphics show poor intake of 0-20%. Pt receiving nocturnal TF of Vital AF @ goal rate. Per MD note, pts son is to come to bedside tomorrow to discuss g tube. Labs reviewed, noted low K and elevated glucose. Continue to encourage adequate po intake. Estimated Needs: Estimated Energy Target: [id number] (01/12/25 1301) Estimated Protein Target: 70-100 (01/12/25 1301) Estimated Fluid Target : [id number] (01/12/25 1301) Nutrition Energy Formula: Calories per kilogram (01/12/25 1301) Weight Used for Formula: Adjusted body weight (68 kg) (01/12/25 1301) Current diet/nutrition support: DIET TUBE FEEDING Elemental 1.2,; Feeding Method: Continuous; Initial Volume in mL/hour: 20; Goal Volume in mL/hour: 60; Feeding Advancement: 10 ml q6h; Water Flush: 150 ml q6h DIET GENERAL Effective Now DIET SUPPLEMENT GEN ADULT TID Food/Meal: Dinner (01/19/251919),Intake (%): (!) 0% (01/19/251919) Weight status/changes: Weight: 80.1 kg (176 lb 9.6 oz) (01/20/25 0543) Last seven weights (if available) from 12/23/24 1533 to 01/20/25 1532 (Last 7 readings): Weight Weight Method 01/20/25542 80.1 kg (176 lb 9.6 oz) Actual Admission:Weight: 80.1 kg (176 lb 9.6 oz) (01/20/25 05)Weight Method: Actual (01/20/25542) Body mass index is 28.5 kg/m??. 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) (01/12/25 1301) Percentage of Energy: < or equal to 50% for > or equal to 5 days (severe-acute) (01/12/25 130) Percentage of Weight Loss: Unable to assess (01/12/25 130) Additional assessment indices: Alverto Score: 14 (01/20/25 0740) Last Bowel Movement (mm/dd/yyyy): 01/19/25 (01/19/25 1905) Stool Consistency - Reference [place] Stool Chart: liquid - (type 7);soft - (type 4/5) (01/20/25 0740) Bowel Sounds: All Quadrants: (normoactive) (01/15/25 0330) Allergies Allergies Allergen Reactions Morphine Hives and Hallucination Labs: Lab Results Component Value Date/Time NA 141 01/20/2025 04:42 AM K 3.3 (L) 01/20/2025 04:42 AM CL 105 01/20/2025 04:42 AM CO2 24 01/20/2025 04:42 AM CA 8.7 (L) 01/20/2025 04:42 AM BUN 4 (L) 01/20/2025 04:42 AM CREAT 0.40 (L) 01/20/2025 04:42 AM GLUCOSE 118 (H) 01/20/2025 04:42 AM TOTALPROTEIN 5.0 (L) 01/13/2025 01:40 PM ALBUMIN 3.5 01/13/2025 01:40 PM BILITOTAL 0.6 01/13/2025 01:40 PM ALKPHOS 62 01/13/2025 01:40 PM AST 31 01/13/2025 01:40 PM ALT 9 01/13/2025 01:40 PM ANIONGAP 12 01/20/2025 04:42 AM No results found for: HGBA1C , [id number] Lab Results Component Value Date/Time RDW 21.8 (H) 01/20/2025 04:43 AM Lab Results Component Value Date/Time CRP 46.3 (H) 10/26/2024 04:51 AM Lab Results Component Value Date/Time MG 1.7 01/19/2025 04:44 AM Lab Results Component Value Date/Time CA 8.7 (L) 01/20/2025 04:42 AM PO4 2.3 (L) 01/19/2025 04:44 AM No results found for: YWWM376 , VITD25 , YURQ27NFY5 , QAYQ17ZCC9 , XTIV35WITA , [id number] , UYHA9FZRDZAR , VITAMINDTO , [id number] No results found for: SPFUEUFA20 No results found for: FOLATE , FOLATERBC No results found for: ZINC * Erendira Jackson MD - 01/20/2025 1:25 PM CDT [facility] Hospitalist/Internal Medicine Progress note LOS: LOS: 8 days HOSPITAL COURSE SUMMARY: 74 y/o female with perforated diverticulitis s/p colostomy, recent history of C. Difficile status post deficid transferred from OSH for AMS, lethargy, C Diff colitis Patient reportedly has CT of the abdomen pelvis showing no obstruction. Patient reportedly had CT angiogram of the chest showing no pulmonary embolism 01/14- off cardizem drip. On PO atenolol. HR in 80's . Encourage PO. Replete lytes 01/15- increase activity . Encourage PO . PT 01/16- hold tube feeds during day and encourage PO . Increase activity 01/17- removed NG tube X3 and concerned she might pull out peg .. Patient states she would like to eat hamburger . If PO intake gets better plan to d/c NG tube and feeds which she would like to. Discussed with staff . Might need Snf on d/c 01/18: Nocturnal NG tube feeds, continue to increase PO intake. SNF placement in process 01/19: Still minimal PO intake. I spoke to her son, he is wanting to give her more time before placing G tube, he will be coming up on Thursday to discuss further with her on eating vs g tube. We discussed NG tube is not a permanent solution. We also discussed G tube vs hospice care, this is not something they would want to pursue at this time. 01/20: Little to no intake yesterday. Son to come to bedside tomorrow to discuss g tube. Replace potassium SUBJECTIVE: The patient is seen with nurse at bedside. She has no new concerns. We discussed nutrition, she states she doesn't feel hungry. We again spoke about G tube, she is in agreement with speaking to her son about it tomorrow. OBJECTIVE: Temp (24hrs), Av.7 ??F (36.5 ??C), Min:97.4 ??F (36.3 ??C), Max:98.1 ??F (36.7 ??C) BP (!) 122/91 (BP Location: Right arm, Patient Position (BP): Sitting) Comment: Nurse Notified Pulse 93 Temp 97.6 ??F (36.4 ??C) (Temporal) Resp 18 Wt 80.1 kg (176 lb 9.6 oz) SpO2 99% BMI28.50 kg/m?? Intake/Output Summary (Last 24 hours) at 01/20/2025 1325 Last data filed at 01/20/2025 0535 Gross per 24 hour Intake 863 ml Output 425 ml Net 438 ml Last documented weight: Weight: 80.1 kg (176 lb 9.6 oz) (01/20/25 0543) EXAM: General: alert, in no distress. NG tube + Neurologic: Grossly normal. Oriented X3. NG tube + HEENT: atraumatic, Normocephalic, without obvious abnormality Lungs: clear to auscultation bilaterally, normal respiratory effort Heart: normal rate and regular rhythm, S1 and S2 normal Abdomen:soft,non tender. Bowel sounds present . Ostomy + with surrounding erythema Extremities: intact distal pulses, moves all extremities equally Skin: Warm and dry LABORATORY: Recent Labs 01/19/25 0444 01/20/25 0443 WBC 6.4 5.3 HGB 10.3* 9.5* HCT 31.7* 30.0* PLT 391 344 Recent Labs 01/19/25 0444 01/20/25 0442 NA 141 141 K 3.4* 3.3* CL 105 105 CO2 26 24 CA 8.9 8.7* BUN 5* 4* CREAT 0.45* 0.40* GLUCOSE 142* 118* No results for input(s): TOTALPROTEIN , ALBUMIN , BILITOTAL , ALKPHOS , AST , ALT in the last 72 hours. No results for input(s): INR , PT in the last 72 hours. Invalid input(s): PTT No results for input(s): CPK , CKMB , TROPONIN in the last 72 hours. Diagnostic testing reviewed by me: Medications reviewed by me ASSESSMENT AND PLAN: Principal Problem: Acute C. difficile colitis Active Problems: Protein-calorie malnutrition, moderate Colostomy status (CMS/HCC) Confusion A-fib (CMS/HCC) Elevated troponin Chest discomfort UTI (urinary tract infection) Plan C diff colitis - Continue Dificid - Diarrhea resolved Recent perforated diverticulitis status post colostomy - Colostomy in place but there is notable erythema surrounding wound - Continue consult for erythema, appreciate assistance - Outpatient surgery follow-up Moderate protein calorie malnutrition - Poor p.o. intake - NG tube in place but starting to feel hungry during the day. Tube feedings changed to nocturnal feeds only - Continue to encourage p.o. intake and DC NG tube when she is eating enough for her needs - I spoke to her son today, he would like to wait till the weekend on decision for G tube. He will be up on Thursday to discuss further with his mom History of A-fib - Continue beta-mike, Eliquis Elevated troponins at time of admission - Mildly elevated and troponin trend was flat - No chest pain - Echo from November 2024 reviewed - Monitor at this time Hypokalemia - replacement ordered Nutrition Status: Malnutrition Nutrition Diagnosis: Moderate protein-calorie malnutrition Provider Assessment/Plan: Symptoms/Signs/Physical Exam: Muscle Wasting, Poor Appetite, Eating Poorly, Weakness, and Fatigue Etiology: Chronic illness Nutrition Treatment Plan: Supplements as needed, NG tube feeds - Current Diet and/or Nutritional Supplementation ordered: DIET TUBE FEEDING Elemental 1.2,; Feeding Method: Continuous; Initial Volume in mL/hour: 20; Goal Volume in mL/hour: 60; Feeding Advancement: 10 ml q6h; Water Flush: 150 ml q6h DIET GENERAL Effective Now DIET SUPPLEMENT GEN ADULT TID - Daily weights Impact of Malnutrition on patient condition and outcomes: Increased risk of infection, Delayed recovery, Decreased activity tolerance and reduced mobility , Poor wound healing, Increased readmission risk, and Increased hospitalization length DVT prevention: eliquis Disposition- Anticipated Disposition Location: SNF Anticipated Disposition Timeframe: Thursday Disposition Criteria: Eating better and NG tube is out vs G tube Disposition Education Needed: C diff Disposition DME/Equipment Needs: TBD CODE STATUS: Full Code Erendira Jackson MD 01/20/2025, 1:25 PM * Erendira Jackson MD - 01/19/2025 10:33 AM CDT [facility] Hospitalist/Internal Medicine Progress note LOS: LOS: 7 days HOSPITAL COURSE SUMMARY: 74 y/o female with perforated diverticulitis s/p colostomy, recent history of C. Difficile status post deficid transferred from OSH for AMS, lethargy, C Diff colitis Patient reportedly has CT of the abdomen pelvis showing no obstruction. Patient reportedly had CT angiogram of the chest showing no pulmonary embolism 01/14- off cardizem drip. On PO atenolol. HR in 80's . Encourage PO. Replete lytes 01/15- increase activity . Encourage PO . PT 01/16- hold tube feeds during day and encourage PO . Increase activity 01/17- removed NG tube X3 and concerned she might pull out peg .. Patient states she would like to eat hamburger . If PO intake gets better plan to d/c NG tube and feeds which she would like to. Discussed with staff . Might need Snf on d/c 01/18: Nocturnal NG tube feeds, continue to increase PO intake. SNF placement in process 01/19: Still minimal PO intake. I spoke to her son, he is wanting to give her more time before placing G tube, he will be coming up on Thursday to discuss further with her on eating vs g tube. We discussed NG tube is not a permanent solution. We also discussed G tube vs hospice care, this is not something they would want to pursue at this time. SUBJECTIVE: The patient is seen resting in bed, nurse present. We discussed nutrition and NG tube. We also discussed G tube, she asks that we call her family. OBJECTIVE: Temp (24hrs), Av.5 ??F (36.4 ??C), Min:97 ??F (36.1 ??C), Max:97.9 ??F (36.6 ??C) BP 105/64 Pulse 86 Temp 97 ??F (36.1 ??C) (Temporal) Resp 17 SpO2 96% Intake/Output Summary (Last 24 hours) at 01/19/2025 1033 Last data filed at 01/19/2025 0517 Gross per 24 hour Intake 1250 ml Output 500 ml Net 750 ml Last documented weight: EXAM: General: alert, in no distress. NG tube + Neurologic: Grossly normal. Oriented X3. NG tube + HEENT: atraumatic, Normocephalic, without obvious abnormality Lungs: clear to auscultation bilaterally, normal respiratory effort Heart: normal rate and regular rhythm, S1 and S2 normal Abdomen:soft,non tender. Bowel sounds present . Ostomy + with surrounding erythema Extremities: intact distal pulses, moves all extremities equally Skin: Warm and dry LABORATORY: Recent Labs 01/19/25 0444 WBC 6.4 HGB 10.3* HCT 31.7* PLT 391 Recent Labs 01/19/25 0444 NA 141 K 3.4* CL 105 CO2 26 CA 8.9 BUN 5* CREAT 0.45* GLUCOSE 142* No results for input(s): TOTALPROTEIN , ALBUMIN , BILITOTAL , ALKPHOS , AST , ALT in the last 72 hours. No results for input(s): INR , PT in the last 72 hours. Invalid input(s): PTT No results for input(s): CPK , CKMB , TROPONIN in the last 72 hours. Diagnostic testing reviewed by me: Medications reviewed by me ASSESSMENT AND PLAN: Principal Problem: Acute C. difficile colitis Active Problems: Protein-calorie malnutrition, moderate Colostomy status (CMS/HCC) Confusion A-fib (CMS/HCC) Elevated troponin Chest discomfort UTI (urinary tract infection) Plan C diff colitis - Continue Dificid - No diarrhea reported x 24 hours - Continue isolation per hospital policy Recent perforated diverticulitis status post colostomy - Colostomy in place but there is notable erythema surrounding wound - Continue consult for erythema, appreciate assistance - Outpatient surgery follow-up Moderate protein calorie malnutrition - Poor p.o. intake - NG tube in place but starting to feel hungry during the day. Tube feedings changed to nocturnal feeds only - Continue to encourage p.o. intake and DC NG tube when she is eating enough for her needs - I spoke to her son today, he would like to wait till the weekend on decision for G tube. He will be up on Thursday to discuss further with his mom History of A-fib - Continue beta-mike, Eliquis Elevated troponins at time of admission - Mildly elevated and troponin trend was flat - No chest pain - Echo from November 2024 reviewed - Monitor at this time Nutrition Status: Malnutrition Nutrition Diagnosis: Moderate protein-calorie malnutrition Provider Assessment/Plan: Symptoms/Signs/Physical Exam: Muscle Wasting, Poor Appetite, Eating Poorly, Weakness, and Fatigue Etiology: Chronic illness Nutrition Treatment Plan: Supplements as needed, NG tube feeds - Current Diet and/or Nutritional Supplementation ordered: DIET TUBE FEEDING Elemental 1.2,; Feeding Method: Continuous; Initial Volume in mL/hour: 20; Goal Volume in mL/hour: 60; Feeding Advancement: 10 ml q6h; Water Flush: 150 ml q6h DIET GENERAL Effective Now DIET SUPPLEMENT GEN ADULT TID - Daily weights Impact of Malnutrition on patient condition and outcomes: Increased risk of infection, Delayed recovery, Decreased activity tolerance and reduced mobility , Poor wound healing, Increased readmission risk, and Increased hospitalization length DVT prevention: eliquis Disposition- Anticipated Disposition Location: SNF Anticipated Disposition Timeframe: Thursday Disposition Criteria: Eating better and NG tube is out vs G tube Disposition Education Needed: C diff Disposition DME/Equipment Needs: TBD CODE STATUS: Full Code Erendira Jackson MD 01/19/2025, 10:33 AM * Chicho Allen, RN - 01/19/2025 3:45 AM CDT Patient noted to be back in a-fib and tachycardic. EKG ordered, Keily Mckeon and Dr. Cat contacted orders received. thanks * Erendira Jackson MD - 01/18/2025 11:04 AM CDT [facility] Hospitalist/Internal Medicine Progress note LOS: LOS: 6 days HOSPITAL COURSE SUMMARY: 74 y/o female with perforated diverticulitis s/p colostomy, recent history of C. Difficile status post deficid transferred from OSH for AMS, lethargy, C Diff colitis Patient reportedly has CT of the abdomen pelvis showing no obstruction. Patient reportedly had CT angiogram of the chest showing no pulmonary embolism 01/14- off cardizem drip. On PO atenolol. HR in 80's . Encourage PO. Replete lytes 01/15- increase activity . Encourage PO . PT 01/16- hold tube feeds during day and encourage PO . Increase activity 01/17- removed NG tube X3 and concerned she might pull out peg .. Patient states she would like to eat hamburger . If PO intake gets better plan to d/c NG tube and feeds which she would like to. Discussed with staff . Might need Snf on d/c 01/18: Nocturnal NG tube feeds, continue to increase PO intake. SNF placement in process SUBJECTIVE: The patient is seen resting in chair, nurse present. She is hopeful to get NG tube out. She reportseating small amount of breakfast. We discussed increased PO intake with lunch and dinner. She does not like the protein shakes so has not been drinking them. OBJECTIVE: Temp (24hrs), Av.3 ??F (36.8 ??C), Min:97.8 ??F (36.6 ??C), Max:98.9 ??F (37.2 ??C) BP 129/67 (BP Location: Right arm, Patient Position (BP): Supine) Pulse 92 Temp 98 ??F (36.7 ??C) (Oral) Resp 18 SpO2 92% Intake/Output Summary (Last 24 hours) at 01/18/2025 1104 Last data filed at 01/18/2025 0645 Gross per 24 hour Intake -- Output 4150 ml Net -4150 ml Last documented weight: EXAM: General: alert, in no distress. NG tube + Neurologic: Grossly normal. Oriented X3. NG tube + HEENT: atraumatic, Normocephalic, without obvious abnormality Lungs: clear to auscultation bilaterally, normal respiratory effort Heart: normal rate and regular rhythm, S1 and S2 normal Abdomen:soft,non tender. Bowel sounds present . Ostomy + with surrounding erythema Extremities: intact distal pulses, moves all extremities equally Skin: Warm and dry LABORATORY: No results for input(s): WBC , HGB , HCT , PLT in the last 72 hours. Recent Labs 01/16/25 0432 NA 145 K 3.7 CL 111* CO2 25 CA 7.9* BUN 7* CREAT 0.40* GLUCOSE 108* No results for input(s): TOTALPROTEIN , ALBUMIN , BILITOTAL , ALKPHOS , AST , ALT in the last 72 hours. No results for input(s): INR , PT in the last 72 hours. Invalid input(s): PTT No results for input(s): CPK , CKMB , TROPONIN in the last 72 hours. Diagnostic testing reviewed by me: Medications reviewed by me ASSESSMENT AND PLAN: Principal Problem: Acute C. difficile colitis Active Problems: Protein-calorie malnutrition, moderate Colostomy status (CMS/HCC) Confusion A-fib (CMS/HCC) Elevated troponin Chest discomfort UTI (urinary tract infection) Plan C diff colitis - Continue Dificid - No diarrhea reported this morning - Continue isolation per hospital policy Recent perforated diverticulitis status post colostomy - Colostomy in place but there is notable erythema surrounding wound - Continue consult for erythema - Outpatient surgery follow-up Moderate protein calorie malnutrition - Poor p.o. intake - NG tube in place but starting to feel hungry during the day. Tube feedings changed to nocturnal feeds only - Continue to encourage p.o. intake and DC NG tube when she is eating enough for her needs - G-tube was discussed by prior hospitalist with family and they would only want to proceed with G-tube if absolutely necessary - It is noted that she takes Marinol as an outpatient, currently unable to order as it is in short supply and not available. History of A-fib - Continue beta-mike, Eliquis Elevated troponins at time of admission - Mildly elevated and troponin trend was flat - No chest pain - Echo from November 2024 reviewed - Monitor at this time Nutrition Status: Malnutrition Nutrition Diagnosis: Moderate protein-calorie malnutrition Provider Assessment/Plan: Symptoms/Signs/Physical Exam: Muscle Wasting, Poor Appetite, Eating Poorly, Weakness, and Fatigue Etiology: Chronic illness Nutrition Treatment Plan: Supplements as needed, NG tube feeds - Current Diet and/or Nutritional Supplementation ordered: DIET TUBE FEEDING Elemental 1.2,; Feeding Method: Continuous; Initial Volume in mL/hour: 20; Goal Volume in mL/hour: 60; Feeding Advancement: 10 ml q6h; Water Flush: 150 ml q6h DIET GENERAL Effective Now DIET SUPPLEMENT GEN ADULT TID - Daily weights Impact of Malnutrition on patient condition and outcomes: Increased risk of infection, Delayed recovery, Decreased activity tolerance and reduced mobility , Poor wound healing, Increased readmission risk, and Increased hospitalization length DVT prevention: eliquis Disposition- Anticipated Disposition Location: SNF Anticipated Disposition Timeframe: 1-2 days Disposition Criteria: Eating better and NG tube is out Disposition Education Needed: C diff Disposition DME/Equipment Needs: TBD CODE STATUS: Full Code Erendira Jackson MD 01/18/2025, 11:04 AM * Yao Gray, Occupational Therapist - 01/18/2025 9:26 AM CDT [facility] - Therapy Services 3K Ph. Acute Occupational Therapy Evaluation 01/18/2025 Room: [address] [place] [address] Name: Tiffany Sexton Age: 74 y.o. Patient Class: Inpatient Date of : 1950 Insurance: Payor: MEDICARE / Plan: MEDICARE PART A AND B / Product Type: Medicare / Prior to OT session thorough chart review completed, including prior OT notes as applicable. Consent to evaluate provided by patient and nurse Date of admission: 01/12/2025 SUBJECTIVE Occupational Profile Information provided by: patient and limited by cognition & alertness Prior Level of Function ADLs: independent IADLs: assistance needed for meal preparation, home management, laundry, cleaning, and grocery shopping Patient does drive Functional mobility: independent Falls: Denies Home Information Employment/daily routine: enjoys reading Self-care assist available at home: lives with son, DIL and granddaughter, pt states that they workduring the day but that someone can still be home Home environment: 1-level home 3 step(s) to enter Tub/shower Durable medical equipment already in home: Walkers: 2WW Shower chair Grab bars Hand-held shower head Additional Information Patient/family statement/goal(s): I just want my son to come and take me home. Comments: Patient was pleasant and agreeable to OT evaluation on this date. Pain: Refer to flowsheet for documentation of pain and interventions. OBJECTIVE Cognition Level of alertness: alert and confused Orientation: oriented to person, place, month, and year Command following: fair Safety awareness: fair; limited by slow processing, decreased problem solving, and decreased insight into deficits Memory: decreased short term memory Vision: denies acute changes UE Function Right-hand dominant UE Assessment Right Left ROM Active: WFL Active: WFL Strength WFL; WFL; All additional UE assessments (including tone, coordination, sensation, and edema) not indicated ordeemed WFL. Occupational Performance Activities of Daily Living Feeding: supervision for setup Grooming: supervision seated in chair to wash face Upper extremity dressing: NT; anticipate supervision Lower extremity dressing: maximal assistance to don socks in chair Toileting: NT; anticipate maximal assistance on BSC All tasks not tested with anticipated assist levels are based on observed tasks and movement patterns. Functional Mobility All mobility completed with gait belt, non-skid socks, and walker Sit to stand: maximal assistance x2 providers from chair performed 3x Standing balance: maximal assistance for static tasks for less then 30 seconds Pt unable to attempt to take steps due to being so unsteady with static standing Patient required verbal cues for attention to task, safety due to impulsivity, and sequencing. [facility] Daily Activity How much help from another person does the patient currently need? Score 1. Putting on and taking off regular lower body clothing? 2 - A lot (max to mod assist) 2. Bathing (including washing, rinsing, drying)? 2 - A lot (max to mod assist) 3. Toileting, which includes using toilet, bedpan or urinal? 2 - A lot (max to mod assist) 4. Putting on and taking off regular upper body clothing? 3 - A little (supervision to min assist) 5. Taking care of personal grooming such as brushing teeth? 3 - A little (supervision to min assist) 6. Eating meals? 4 - None (independent) Total score 16/24 0-19 indicates likely facility discharge 19-24 indicates likely community discharge *Scores determined based on patient report, observation or professional expertise* Vitals Current O2 requirement: room air Vital signs stable throughout. Precautions Patient precautions: fall, aspiration, isolation, and seizure Patient bracing: none Weight bearing: no restrictions ASSESSMENT & PLAN Evaluation Details Tiffany Sexton is a 74 y.o. female referred for OT following admission for acute c diff. Additionalpertinent diagnoses and past medical history related to this hospital stay are present in physicianH&P and physician daily notes. PT and OT combined this date due to RN reported need for two therapists to manage medical complexity impacting safety during transfers. Patient still requires assist x 2. OT evaluation: Moderate complexity Assessment Patient is currently functioning significantly below her prior level of function. Patient presents with acute functional deficits including: Functional balance Safety awareness Decreased functional strength Decreased endurance Cognitive deficits These deficits impact patient ability to complete: Functional mobility Bathing Toileting Dressing Personal hygiene/grooming Patient would benefit from continued skilled OT services in order to increase occupational performance through modification and remediation approaches such as ADL training, endurance training, strength training, functional transfer training, and home safety education Plan During acute hospitalization, recommend medium frequency treatment (3-5 times/week). Current plan of care to continue until goals met or patient discharges from facility Anticipate ongoing OT treatment sessions with specific focus on ADLs and functional mobility Recommendations Based on OT assessment of patient's ability to complete self care tasks and AM- PAC Daily Activity Score, anticipated discharge disposition, once medically ready: [facility]ent[facility] facility (01/18/25 5135). Rationale: Patient needs daily (weekday) skilled OT services. Anticipate tolerance is limited for intensive or adapted intensive rehab program and extended recovery time needed. * The final dischargelocation is determined through physician, case management, and patient/caregiver input along with in surance authorization of skilled services when appropriate. Plan of care and discharge recommendations shared with patient, rn progressive care, and PT OT recommended DME and AE upon discharge: To be determined (01/18/25925) No new additional adaptive equipment necessary (01/18/25925) Education provided to patient regarding OT recommendations and plan of care, Education response: would benefit from reinforcement Nursing Staff Mobility Recommendations Recommended daily activity during admission: up to chair for meals Disposition At start of session, patient found seated in chair At end of session, patient left seated in chair, call light in reach, phone in reach, chair alarm activated, patient instructed not to get up without staff assistance, and staff notified of patient location/events of session Further treatment notes and therapeutic goals can be found in Care Plan Notes. If the patient discharges from facility before another therapy visit, this shall serve as therapy discharge summary. Thank you for this referral, Yao Gray, Occupational Therapist * Tiffani Monroe Physical Therapist - 01/18/2025 9:26 AM CDT [facility] - Therapy Services 3K Ph. Acute Physical Therapy Evaluation 01/18/2025 Room: [address] [place] [address] Name: Tiffany Sexton Age: 74 y.o. Date of : 1950 Insurance: Payor: MEDICARE / Plan: MEDICARE PART A AND B / Product Type: Medicare / Patient Class: Inpatient Onset of illness/injury or date of surgery: 01/12/2025 Subjective Information/History Subjective Information Provided By: Patient and Limited by patient's current cognition/alertness Patient cleared to participate in PT Prior level of Function: independent with ADL's and mobility without an AD. Assistance with iADL's.Patient still drives and enjoys reading. Patient Does NOT have a fall history Home Environment: 1-Story home Number of Outside Stairs: 3 Available Adaptive Equipment: Walkers: 2 wheeled Shower Chair Grab Bars Assistance available: Patient lives with son, DIL, and granddaughter. Reports they work during day. Patient/Family Goals Statement: I just want my son to come and take me home Consent To Treatment Given By: Patient and Nurse Pain: Refer to Doc Flowsheet for documented pain levels. Safety Awareness Orientation: Person, Place, and Date Command Following: fair Safety Awareness: Fair , slow processing, decreased problem solving, and poor insight into deficits Precautions Patient Precautions: Fall Risk, Aspiration, Isolation, and Seizure Bracing/Orthotics: none Weight Bearing: No Restrictions Objective Information/Examination Muscle Tone: Normal Coordination: Normal Sensation: Intact to light touch ROM/Strength: BLE ROM WFL; BLE strength generalized weakness limiting functional ADL's, balance, and activity tolerance. Balance: poor standing with max assistance x 1; tolerated standing <30 seconds Functional Mobility: sit to/from stand (2 times using walker max assistance x 2; 1 time at sink pulling, max assistance x 2 Gait/Deviations:patient unable to ambulate at this time due to high fall risk and assistance required. Vitals Patient on room air [facility] AM-PAC Basic Mobility How much help from another person does the patient currently need? Score 1. Turning from your back to your side while in a flat bed without using bedrails? 2 - A lot (max to mod assist) 2. Moving from lying on your back to sitting on the side of a flat bed without using bedrails? 2 - A lot (max to mod assist) 3. Moving to and from a bed to a chair (including a wheelchair)? 2 - A lot (max to mod assist) 4. Standing up from a chair using your arms (e.g., wheelchair, or bedside chair)? 2 - A lot (max tomod assist) 5. Walking in hospital room? 1 - Total assist or cannot do at all 6. Climbing 3-5 steps with a railing? 1 - Total assist or cannot do at all Total score 1024 0-16 - indicates likely facility discharge 17-24 indicates likely community discharge * scores determined based on patient report, observation or professional expertise Assessment/Plan Tiffany Sexton is a 74 y.o. female is referred for physical therapy. Based on objective findings above, the patient presents with the following impairments: decreased ability to transfer safely, balance deficits, decreased activity tolerance, decreased strength, gait disturbance, limited safety awareness, medical complexity, and risk for falls which impacts the patient's ability to mobilize safely. Functional Prognosis: Based on prior level of function and deficits, anticipate good progress. Rationale: The Patient is well below their prior level of function and is in need of further therapies to help regain lost function and to improve safety. Plan will include but is not limited to: Gait Training, Transfer Training, Patient/Family Education, Balance Training, ADL Training, and Functional Strengthening. PT and OT sessions combined. Two therapists needed due to impulsive behavior impacting safety during transfers. PT Evaluation: low complexity Recommendations During acute hospitalization, recommend medium frequency treatment (3-5 times per week). Current plan of care to continue until goals met or patient discharges from facility. Anticipated discharge disposition: penitentiary facility (01/18/25926). PT Recommended DME: No new DME recommended (01/18/25926). Plan of care and/or discharge recommendations shared with: Patient, Sales Marketing, and Nurse Daily activity recommendations: Up with 2 assist Recommendations for referral to another service: Care Management Education/Training Provided Patient Required Instruction And Training For: proper techniques for ADL's and functional transfers, use of UE's in transfers, and to get center of gravity over TOLU Additional Education Provided: discharge planning, functional mobility, plan of care, proper body mechanics, rehabilitation principles, safety, use of assistive device, and Daily activity with nursing staff Encouraged pt to be out of bed at least 3x/day or up with meals. Learner, method of education, and response to learning listed in Education tab in Epic. Note: All mobility completed with gait belt and non skid foot wear. Disposition At start of session, patient found sitting in chair At completion of session, patient seated in chair, call light in reach, phone in reach, body alarm in place, patient instructed to not get up without assistance from staff, and staff notified of patient's location Current Diagnoses CDIFF Past Medical History has a past medical history of Clostridium difficile enterocolitis (11/17/2024), Diverticulosis of colon, GERD (gastroesophageal reflux disease), HTN (hypertension), Hyperlipidemia, and Wears glasses. Prior to PT session a thorough chart review was completed including prior PT notes as applicable. Further treatment notes and therapeutic goals can be found in Care Plan Notes. Thank you for this referral, Tiffani Monroe, Physical Therapist * Shirley Mccarthy MD - 01/17/2025 1:29 PM CDT [facility] Hospitalist/Internal Medicine Progress note LOS: LOS: 5 days HOSPITAL COURSE SUMMARY: 74 y/o female with perforated diverticulitis s/p colostomy, recent history of C. Difficile status post deficid transferred from OSH for AMS, lethargy, C Diff colitis Patient reportedly has CT of the abdomen pelvis showing no obstruction. Patient reportedly had CT angiogram of the chest showing no pulmonary embolism 01/14- off cardizem drip. On PO atenolol. HR in 80's . Encourage PO. Replete lytes 01/15- increase activity . Encourage PO . PT 01/16- hold tube feeds during day and encourage PO . Increase activity 01/17- removed NG tube X3 and concerned she might pull out peg .. Patient states she would like to eat hamburger . If PO intake gets better plan to d/c NG tube and feeds which she would like to. Discussed with staff . Might need Snf on d/c SUBJECTIVE: No fever.ostomy output better .. Confusion on and off . Calm and co operative OBJECTIVE: Temp (24hrs), Av ??F (36.7 ??C), Min:97.1 ??F (36.2 ??C), Max:98.8 ??F (37.1 ??C) BP 126/58 (BP Location: Right arm, Patient Position (BP): Supine) Pulse 85 Temp 97.8 ??F (36.6 ??C) (Temporal) Resp 16 SpO2 95% Intake/Output Summary (Last 24 hours) at 01/17/2025 1329 Last data filed at 01/17/2025 1000 Gross per 24 hour Intake 116 ml Output 1600 ml Net -1484 ml Last documented weight: EXAM: General: alert, in no distress. NG tube + Neurologic: Grossly normal. Oriented X3. NG tube + HEENT: atraumatic, Normocephalic, without obvious abnormality Lungs: clear to auscultation bilaterally, normal respiratory effort Heart: normal rate and regular rhythm, S1 and S2 normal Abdomen:soft,non tender. Bowel sounds present . Ostomy + Extremities: intact distal pulses, moves all extremities equally Skin: Warm and dry LABORATORY: No results for input(s): WBC , HGB , HCT , PLT in the last 72 hours. Recent Labs 01/15/25 0416 01/16/25 0432 NA 143 145 K 3.3* 3.7 CL 110* 111* CO2 24 25 CA 7.8* 7.9* BUN 3* 7* CREAT 0.50* 0.40* GLUCOSE 135* 108* No results for input(s): TOTALPROTEIN , ALBUMIN , BILITOTAL , ALKPHOS , AST , ALT in the last 72 hours. No results for input(s): INR , PT in the last 72 hours. Invalid input(s): PTT No results for input(s): CPK , CKMB , TROPONIN in the last 72 hours. Diagnostic testing reviewed by me: Medications reviewed by me ASSESSMENT AND PLAN: Principal Problem: Acute C. difficile colitis Active Problems: Protein-calorie malnutrition, moderate Colostomy status (CMS/[facility]) Confusion A-fib ([facility]) Elevated troponin Chest discomfort UTI (urinary tract infection) C diff colitis - on deficid. Monitor . Output better now Acute cystitis without hematuria on admission- .. cultures neg so far . off antibiotics perforated diverticulitis s/p colostomy, outpatient follow up Elevated troponins mildly - serial troponins flat -- no chest pain. TTE from November 2024 noted recent history of C. Difficile status post deficid Decreased PO / Probable Protein calorie malnutrition -- Pathway initiated . NG tube for feeds +. Mitts as patient pulle dout NG tube X3 in last 24 hours --now better .. .. Off mitts now . Sitter bedside for safety Nutrition- patient services specialist aga noted. Started on regular diet .. If taking good PO . D/c NG tube .. Hold tube feeds during day time and resume from 10 PM to 4 AM History of Afib on eliquis . RVR resolved. Off cardizem drip. Continue BB Nutrition Status: Malnutrition Nutrition Diagnosis: Moderate protein-calorie malnutrition Provider Assessment/Plan: Symptoms/Signs/Physical Exam: Muscle Wasting, Poor Appetite, Eating Poorly, Weakness, and Fatigue Etiology: Chronic illness Nutrition Treatment Plan: Supplements as needed, NG tube feeds - Current Diet and/or Nutritional Supplementation ordered: DIET TUBE FEEDING Elemental 1.2,; Feeding Method: Continuous; Initial Volume in mL/hour: 20; Goal Volume in mL/hour: 60; Feeding Advancement: 10 ml q6h; Water Flush: 150 ml q6h DIET GENERAL Effective Now DIET SUPPLEMENT GEN ADULT TID - Daily weights Impact of Malnutrition on patient condition and outcomes: Increased risk of infection, Delayed recovery, Decreased activity tolerance and reduced mobility , Poor wound healing, Increased readmission risk, and Increased hospitalization length Discussed with Maame and Alex over phone on 01/13/25 - patient is Full code. Alex is MPOA per family but donot have MPOA papers here on file .requested family to provide a copy DVT prevention: eliquis Disposition- Anticipated Disposition Location: home with HH Anticipated Disposition Timeframe: 1-2 days Disposition Criteria: clinically better Disposition Education Needed: C diff Disposition DME/Equipment Needs: TBD CODE STATUS: Full Code Shirley Paz MD 01/17/2025, 1:29 PM * Kelli Cummings RN - 01/17/2025 10:45 AM CDT [facility] Palliative Care Progress Note PATIENT: Tiffany Sexton AGE: 74 y.o. CSN: [id number] Date of : 1950 Primary Care Physician: Non-Staff, Physician Admit Date: 01/12/2025 SUBJECTIVE: Upon my visit, Tiffany Sexton is A/Ox3-4, laying in bed on room air. Patient has family support, including son- Alex and granddaughters- Maame and Carleen. None are currently at bedside. The patient is pleasantly confused. She has her meal tray at bedside. Encouraged her to improve PO intake so that she could get her NGT out. She verbalized understanding. I was able to connect with patient's son, Alex, via phone. We discussed Mrs. Sexton's current health challenges including moderate protein-calorie malnutrition, confusion, and the role of supportivecare in assisting with complicated decisions and education over diagnoses and plans of care. Alex said that he is the patient's medical decision maker and that they have legal paperwork supporting that. The family current lives in [place] but are planning to come visit the patient this coming weekend. I encouraged him to bring his DPOA paperwork so that we can get it scanned into the chart. We discussed current barriers to Mrs. Sexton's discharge. Her intake has been poor and she has beenrelying on TF for nutrition during her hospitalization. Patient has also self-removed NGT three or four times. Currently the NGT is bridled so it has not been successfully removed by the patient. We discussed the possibility of a need for a more permanent solution for feedings such as a surgically implanted feeding tube prior to discharge. Alex said that a PEG tube would be a last resort but they would be open to it. I voiced concern that the patient would also remove a PEG causing there to be a need for more invasive surgery. He agreed and said he was concerned she would remove it as well. Alxe also talked about the patient's deconditioned status. He said that she had gone to a facilitypreviously to get stronger and ultimately returned home. However, he said when she returned home, she was still too weak to do some of her care independently. While he said there are people to help with care needs, total care at home is not a possibility for his mom. He would much prefer that the patient go to a facility with the goal of physical and occupational therapy to improve patient functional status. [place] Symptom Assessment Scale (ESAS-r) Pain: 7 (01/13/25 1400) Tiredness: 0 - no abnormal tiredness (01/13/251399) Drowsiness: 0 - no drowsiness (01/13/251399) Nausea: 0 - no nausea (01/13/251399) Lack of Appetite: 5 (01/13/251399) Shortness of Breath: 0 - normal respiration with no distress (01/13/251399) Depression: 0 - no symptom(s) of depression (01/13/251399) Anxiety: 0 - no signs or symptoms of anxiety (01/13/251399) PAIN SCALE: 0 /10 ASSESSMENT & PLAN: Moderate Protein-Calorie Malnutrition - NGT in place for Vital AF tube feedings to supplement caloric intake - COMMUNICATIONS TECHNOLOGIST eval noted - Regular diet started per attending - Awaiting good PO intake to d/c NGT Delirium?/Altered mental status - Reorient and redirect as needed - Monitor for any further change in orientation, alertness Deconditioned Status - recommend PT/OT eval and treat - encourage patient to be up in chair for meals if appropriate Supportive Care - continue goals of care discussion attempted with the patient's son Alex - offer emotional support as needed - provide education regarding comfort care measures vs. aggressive treatment Goals of care discussion: See note: Completed on 01/17/2025 Spiritual distress: Pastoral Care following Recommended Disposition: - SNF - to complete discharge planning Reviewed past medical history, allergies, social history and medications. No change noted. Code Status: Full Code Hospital Course History: 74 y/o female with perforated diverticulitis s/p colostomy, recent history of C. Difficile status post deficid transferred from OSH for AMS, lethargy, C Diff colitis Patient reportedly has CT of the abdomen pelvis showing no obstruction. Patient reportedly had CT angiogram of the chest showing no pulmonary embolism 01/14- off cardizem drip. On PO atenolol. HR in 80's . Encourage PO. Replete lytes 01/15- increase activity . Encourage PO . PT 01/16- hold tube feeds during day and encourage PO . Increase activity OBJECTIVE: Data Review: CMP: Lab Results Component Value Date/Time NA 145 01/16/2025 04:32 AM K 3.7 01/16/2025 04:32 AM CL 111 (H) 01/16/2025 04:32 AM CO2 25 01/16/2025 04:32 AM CA 7.9 (L) 01/16/2025 04:32 AM BUN 7 (L) 01/16/2025 04:32 AM CREAT 0.40 (L) 01/16/2025 04:32 AM GLUCOSE 108 (H) 01/16/2025 04:32 AM TOTALPROTEIN 5.0 (L) 01/13/2025 01:40 PM ALBUMIN 3.5 01/13/2025 01:40 PM BILITOTAL 0.6 01/13/2025 01:40 PM ALKPHOS 62 01/13/2025 01:40 PM AST 31 01/13/2025 01:40 PM ALT 9 01/13/2025 01:40 PM ANIONGAP 9 01/16/2025 04:32 AM CBC: Lab Results Component Value Date/Time WBC 3.8 (L) 01/14/2025 12:59 AM HGB 10.3 (L) 01/14/2025 12:59 AM HGBPOC 9.4 (L) 09/08/2024 07:40 AM HCT 30.7 (L) 01/14/2025 12:59 AM HCTPOC 28 (L) 09/08/2024 07:40 AM PLT 294 01/14/2025 12:59 AM MCV 79.9 (L) 01/14/2025 12:59 AM ABG: Lab Results Component Value Date/Time [facility] No Charge 09/12/2024 04:45 AM Temp (24hrs), Av ??F (36.7 ??C), Min:97.1 ??F (36.2 ??C), Max:98.8 ??F (37.1 ??C) BP 132/79 (BP Location: Right arm, Patient Position (BP): Supine) Pulse 92 Temp 98.6 ??F (37 ??C) (Temporal) Resp 16 SpO2 97% Intake/Output Summary (Last 24 hours) at 01/17/2025 1045 Last data filed at 01/17/2025 1000 Gross per 24 hour Intake 116 ml Output 1600 ml Net -1484 ml Physical Exam: General appearance: chronically ill appearing Lungs: normal respiratory effort Heart: not examined Abdomen: tender, soft, ostomy in place Extremities: moves all extremities equally Neurologic: alert, oriented to person, place, and time : Cohen catheter dependent to gravity Reviewed medical records, discussed with Lamberto Mccarthy*, Bedside RN, and Herbert DHILLON. - goals of care completed - plan for SNF if PT/OT agree Patient was discussed in Palliative Care IDT meeting. We will sign off from patient care. If additional needs are identified, please reconsult. Kelli Cummings RN, 01/17/2025 10:45 AM [facility] Palliative Care Registered Nurse * Jean Claude Robles - 01/17/2025 8:58 AM CDT I attended the Palliative Care IDT meeting and provided information and expertise concerning spiritual care as appropriate. I will continue to provide support to this IDT team. Chaplain LAYO Lopez M.Div. [facility] Spiritual Care Department * Nevin Saba RD - 01/16/2025 2:52 PM CDT Nutritional Status/Recommendations/Plan for Follow up: Pt receiving TF of Vital AF @ goal rate. Tolerating. Pt also receiving general diet with ONS. One po intake recorded on 01/13 of 10%. Per MD note TF held during the day to encourage po intake. Labs reviewed, noted elevated glucose. Continue to encourage adequate po intake during the day. [x] NG / OG [] NJT, postpyloric tube [] PEG / G-tube [] PEJ / J-tube Verified by: X ray [] Gastro-Jejunostomy tube Date: 01/13 Estimated Needs: Estimated Energy Target: 0300-0058 (01/12/25 1301) Estimated Protein Target: 70-100 (01/12/25 1301) Estimated Fluid Target : 7215-8597 (01/12/25 1301) Nutrition Energy Formula: Calories per kilogram (01/12/25 1301) Weight Used for Formula: Adjusted body weight (68 kg) (01/12/25 130) Current diet/nutrition support: DIET TUBE FEEDING Elemental 1.2,; Feeding Method: Continuous; Initial Volume in mL/hour: 20; Goal Volume in mL/hour: 60; Feeding Advancement: 10 ml q6h; Water Flush: 150 ml q6h DIET GENERAL Effective Now DIET SUPPLEMENT GEN ADULT TID Food/Meal: Lunch (01/13/25 1250),Intake (%): (!) 10% (01/13/25 1250) Weight status/changes: Admission: There is no height or weight on file to calculate BMI. 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 (moderate) (01/12/25 1301) Percentage of Energy: < or equal to 50% for > or equal to 5 days (severe-acute) (01/12/25 130) Percentage of Weight Loss: Unable to assess (01/12/25 130) Additional assessment indices: Alverto Score: 15 (01/15/25 2130) Last Bowel Movement (mm/dd/yyyy): 01/12/25 (01/12/25 1133) Stool Consistency - Reference [place] Stool Chart: formed - (type 1-4);soft - (type 4/5) (01/12/25 1133) Bowel Sounds: All Quadrants: (normoactive) (01/15/25 0330) Allergies Allergies Allergen Reactions Morphine Hives and Hallucination Labs: Lab Results Component Value Date/Time NA 145 01/16/2025 04:32 AM K 3.7 01/16/2025 04:32 AM CL 111 (H) 01/16/2025 04:32 AM CO2 25 01/16/2025 04:32 AM CA 7.9 (L) 01/16/2025 04:32 AM BUN 7 (L) 01/16/2025 04:32 AM CREAT 0.40 (L) 01/16/2025 04:32 AM GLUCOSE 108 (H) 01/16/2025 04:32 AM TOTALPROTEIN 5.0 (L) 01/13/2025 01:40 PM ALBUMIN 3.5 01/13/2025 01:40 PM BILITOTAL 0.6 01/13/2025 01:40 PM ALKPHOS 62 01/13/2025 01:40 PM AST 31 01/13/2025 01:40 PM ALT 9 01/13/2025 01:40 PM ANIONGAP 9 01/16/2025 04:32 AM No results found for: HGBA1C , [id number] Lab Results Component Value Date/Time RDW 20.9 (H) 01/14/2025 12:59 AM Lab Results Component Value Date/Time CRP 46.3 (H) 10/26/2024 04:51 AM Lab Results Component Value Date/Time MG 2.3 01/15/2025 04:16 AM Lab Results Component Value Date/Time CA 7.9 (L) 01/16/2025 04:32 AM PO4 2.9 12/05/2024 01:28 AM No results found for: JRMM169 , VITD25 , WNUM75ZYH8 , SKZY95YYB6 , XTFT29RAJL , NVME7GNGZOQM , RXZS1LJRKCRB , VITAMINDTO , IZSVPIL747 No results found for: ATEYSHZC78 No results found for: FOLATE , FOLATERBC No results found for: ZINC * Shirley Mccarthy MD - 01/16/2025 12:04 PM CDT [facility] Hospitalist/Internal Medicine Progress note LOS: LOS: 4 days HOSPITAL COURSE SUMMARY: 74 y/o female with perforated diverticulitis s/p colostomy, recent history of C. Difficile status post deficid transferred from OSH for AMS, lethargy, C Diff colitis Patient reportedly has CT of the abdomen pelvis showing no obstruction. Patient reportedly had CT angiogram of the chest showing no pulmonary embolism 01/14- off cardizem drip. On PO atenolol. HR in 80's . Encourage PO. Replete lytes 01/15- increase activity . Encourage PO . PT 01/16- hold tube feeds during day and encourage PO . Increase activity SUBJECTIVE: No fever.ostomy output better .. Confusion much better . Calm and co operative OBJECTIVE: Temp (24hrs), Av.4 ??F (36.3 ??C), Min:96.8 ??F (36 ??C), Max:97.6 ??F (36.4 ??C) BP 105/59 (BP Location: Right arm, Patient Position (BP): Supine) Pulse 78 Temp 97.5 ??F (36.4 ??C) (Axillary) Resp 17 SpO2 99% Intake/Output Summary (Last 24 hours) at 01/16/2025 1204 Last data filed at 01/16/2025 1000 Gross per 24 hour Intake 150 ml Output 2425 ml Net -2275 ml Last documented weight: EXAM: General: alert, in no distress. NG tube + Neurologic: Grossly normal. Oriented X3. NG tube + HEENT: atraumatic, Normocephalic, without obvious abnormality Lungs: clear to auscultation bilaterally, normal respiratory effort Heart: normal rate and regular rhythm, S1 and S2 normal Abdomen:soft,non tender. Bowel sounds present . Ostomy + Extremities: intact distal pulses, moves all extremities equally Skin: Warm and dry LABORATORY: Recent Labs 01/14/25 0059 WBC 3.8* HGB 10.3* HCT 30.7* PLT 294 Recent Labs 01/13/25 1340 01/14/25 0059 01/15/25 0416 01/16/25 0432 NA 136 141 143 145 K 3.0* 3.2* 3.3* 3.7 CL 104 106 110* 111* CO2 20* 24 24 25 CA 7.9* 8.2* 7.8* 7.9* BUN 3* 2* 3* 7* CREAT 0.45* 0.46* 0.50* 0.40* GLUCOSE 94 93 135* 108* Recent Labs 01/13/25 1340 TOTALPROTEIN 5.0* ALBUMIN 3.5 BILITOTAL 0.6 ALKPHOS 62 AST 31 ALT 9 No results for input(s): INR , PT in the last 72 hours. Invalid input(s): PTT No results for input(s): CPK , CKMB , TROPONIN in the last 72 hours. Diagnostic testing reviewed by me: Medications reviewed by me ASSESSMENT AND PLAN: Principal Problem: Acute C. difficile colitis Active Problems: Protein-calorie malnutrition, moderate Colostomy status (CMS/HCC) Confusion A-fib (CMS/HCC) Elevated troponin Chest discomfort UTI (urinary tract infection) C diff colitis - on deficid. Monitor . Output better this AM Acute cystitis without hematuria - continue with antibiotics .. cultures neg so far . D/c antibiotics in AM perforated diverticulitis s/p colostomy, outpatient follow up Elevated troponins mildly - serial troponins flat -- no chest pain. TTE from November 2024 noted recent history of C. Difficile status post deficid Decreased PO / Probable Protein calorie malnutrition -- Pathway initiated . NG tube for feeds +. Mitts as patient pulle dout NG tube X3 in last 24 hours --now better .. .. Off mitts now . Sitter bedside for safety Nutrition- patient services specialist aga noted. Started on regular diet .. If taking good PO . D/c NG tube .. Hold tube feeds during day time and resume from 10 PM to 4 AM History of Afib on eliquis . RVR resolved. Off cardizem drip. Continue BB Discussed with Maame and Alex over phone on 01/13/25 - patient is Full code. Alex is MPOA per family but donot have MPOA papers here on file .requested family to provide a copy DVT prevention: eliquis Disposition- Anticipated Disposition Location: home with Anticipated Disposition Timeframe: 1-2 days Disposition Criteria: clinically better Disposition Education Needed: C diff Disposition DME/Equipment Needs: TBD CODE STATUS: Full Code Shirley Paz MD 01/16/2025, 12:04 PM * Kaya De Santiago SLP - 01/16/2025 10:02 AM CDT [facility] Services 3K Ph. ; Fax. Acute Speech-Language Pathology Cognitive-Linguistic/Memory Evaluation 01/16/2025 Room: [address] [place] [address] Name: Tiffany Sexton Age: 74 y.o. Date of : 1950 Insurance: Payor: MEDICARE / Plan: MEDICARE PART A AND B / Product Type: Medicare / Patient class: Inpatient Confirmed patient's identification of name and date of : by patient report Consent to treatment given by patient with results as follows: Onset of illness/injury or date of surgery: 01/12/2025 HPI Tiffany Sexton is a 74 y.o. female who was transferred from another facility. Per report, patient diagnoses at discharge included sepsis, shock, C. difficile colitis, chronic nausea, dehydration, hypoglycemia, hypokalemia, atrial fibrillation/flutter, INDU, hypomagnesemia, lactic acidosis, status post colostomy, chest discomfort, elevated troponin, malnutrition. Subjective Information and Clinical Observations Patient/Family Goals Statement: Does my son know I'm here? Pain: Refer to Doc Flowsheet for documented pain levels. 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 Highest level of education: some college (3 years) History of special education requirements: No Able to read/write at baseline: yes Independently managed medications: Yes, per patient Independently managed finances: Yes, per patient Able to drive motor vehicle prior to admission: Yes Sensory Input/Output: Visual deficits: wears glasses/contacts - not present for evaluation Hearing deficits: none per patient Dominant hand: right handed per patient Patient demonstrated functional utilization of dominant hand during evaluation:Yes Informal Assessment: Temporal orientation: impaired - 2/5 appropriate responses to basic orientation questions (e.g., day of the week, month, and year) Spatial orientation: impaired - 1/3 appropriate responses to basic orientation questions (e.g., city, state, and county) Biographical orientation: impaired - 2/4 appropriate responses to basic orientation questions (e.g., name, birthday, and age) Situational orientation: impaired - Patient unable to provide appropriate reason for hospital visit Verbal problem solving regarding safety: suspect at baseline - 4/5 appropriate responses to basic problem solving questions (e.g., What would you do if you noticed a fire in your home? ) Tests Administered and Qualitative Observations Speech-Language Pathology: Administered Chandler Cognitive Assessment (MoCA) version 8.2 to assess cognitive-linguistic skills. MoCA assesses attention, concentration, executive functioning, memory, language, visuoconstructional skills, conceptual thinking, calculation, and orientation. The resultswere as follows: MoCA Subtests Visuospatial/executive: --/5 Naming: --/3 Attention Digit Span: 2/2 Vigilance: 0/1 Serial 7's: 1/3 Language Repetition: 2/2 Fluency: 0/1 Abstraction: 0/2 Delayed Recall: 0/5 Orientation: 2/6 Total: 10/30, suggesting basic impairment for age and education level. (The following formula was completed to account for pt's visual deficits per the MoCA Blind guidelines: 7x30/22=9.5/30) Normal range: Score greater than or equal to 26 Memory index score: 15 Qualitative Observations Speech Production: Speech intelligibility subjectively judged to be 100% at the conversation level with an unfamiliar listener. Expressive Language: functional Receptive Language: functional Assessment Pt awake and agreeable to speech therapy. Pleasantly confused. She denied baseline concerns about her thinking and memory. Per standardized assessment and qualitative observations, patient presents with: Cognitive-linguistic/memory: deficits in the areas of attention, calculation, abstraction, delayed recall, orientation, and generative/divergent naming Pt's score of 10/30 suggests moderate cognitive impairment for her age and education. Her performance today was comparable to evaluation on 09/15/24 when she scored 10/30. Pt demonstrated significantly impaired orientation and short term memory. She was oriented to self, day of the week, and year only. Reported place as a motel in [place], [place]. Pt reoriented to place and quizzed again after a 30 second delay. Again, she reported this was a motel. After reorientation x2, pt immediately recalled she was at the hospital. Safety concerns for home discharge: Concern for activities of daily living that require a large cognitive load (e.g., cooking/meal preparation, medication management, manager financial services, maintaining personal hygiene, responding to emergency situations, etc.). Recommend 24-hour assistance in discharge location. Patient would benefit from further speech therapy to address the above deficits in order to improvefunctional independence and quality of life. Recommendations DISCHARGE RECOMMENDATIONS: 24-hour assistance and Continued COMMUNICATIONS TECHNOLOGIST services post- acute, location pending physical needs * The final discharge location is determined through physician, case management, and patient/caregiver input along with insurance authorization of skilled services when appropriate Recommendations for referral to another service: None at this time Precautions Plan of Care Patient precautions: Aspiration, Fall, and Seizure Continue COMMUNICATIONS TECHNOLOGIST services to address cognitive-linguistic/memory deficits, anticipate follow up in the next 5-10 days or as medical condition changes. Plan of care to continue for the duration of the patient's acute care hospital stay or until goals are met. Please notify speech therapy department should the patient's condition change and/or patient requires COMMUNICATIONS TECHNOLOGIST services prior to the next anticipated COMMUNICATIONS TECHNOLOGIST visit. Education Disposition Regarding: results and recommendations of cognitive-linguistic/memory evaluation, implementation ofmemory strategies, and speech therapy plan of care Learner, method of education, and response to learning listed in Education tab in Epic Before session: Patient lying in bed After session: Patient lying in bed, call light in reach, and bed alarm in place Current Diagnoses/Past Medical History Pertinent diagnoses and past medical history related to this hospital stay are present in physicianH&P and physician daily notes. Prior to session, completed thorough chart review. Reviewed prior therapy treatment notes as applicable. Further treatment notes and therapeutic goals can be found in Care Plan Notes. If the patient discharges from facility prior to another therapy visit, this shall serve as the therapy discharge summary Thank you for this referral, Kaya De Santiago M.S., [facility]-COMMUNICATIONS TECHNOLOGIST Acute Speech Therapy Charge Zone Phone #[phone] Acute Speech Therapy Charge Pager #[phone] * Kelli Cummings RN - 01/16/2025 10:00 AM CDT [facility] Palliative Care Progress Note PATIENT: Tiffany Sexton AGE: 74 y.o. CSN: [id number] Date of : 1950 Primary Care Physician: Non-Staff, Physician Admit Date: 01/12/2025 SUBJECTIVE: Upon my visit, Tiffany Sexton is A/Ox3-4, laying in bed on room air. Patient has family support, including son- Alex and granddaughters- Maame and Carleen. None are currently at bedside. The patient is oriented and appropriate during my examination. She does seem confused about how shegot to the hospital and where her son is. When I asked her specific orientation questions, she was able to answer them. The patient has been receiving nutrition from tube feeding as she was found to have moderate protein-calorie malnutrition with a recorded weight loss of more than 60lbs in the past 5 months. The patient had her lunch tray at her bedside. Per notes, the physician asked to hold TF in the daytime to allow for more PO intake. Chart review reveals that she only ate about 10% of her tray. NGT still in place and bridled. Patient has pulled out NGT x 3-4 times during hospitalization. Patient unable to have productive conversation regarding her goals of care. Son- Alex called as chart review from the attending shows that he stated he is the medical decision maker despite paperwork to back up this claim. Instead of Alex answering the phone, grand-daughter Maame answered. She informed this life underwriter that Alex sleeps from around 1pm until 7-8pm every day and that I could just di scuss the patient's plan with her. Educated grand-daughter that while an update can be given, Mike presented himself as the DPOA and we need paperwork to confirm. I explained my desire to speak with Alex so that we can establish goals of care for the patient and create a discharge plan. She verbalized understanding and took the palliative care number to pass on to Alex for a return call hopefully tomorrow. [place] Symptom Assessment Scale (ESAS-r) Pain: 7 (01/13/25 1400) Tiredness: 0 - no abnormal tiredness (01/13/25 1400) Drowsiness: 0 - no drowsiness (01/13/25 1400) Nausea: 0 - no nausea (01/13/25 1400) Lack of Appetite: 5 (01/13/25 1400) Shortness of Breath: 0 - normal respiration with no distress (01/13/25 1400) Depression: 0 - no symptom(s) of depression (01/13/25 1400) Anxiety: 0 - no signs or symptoms of anxiety (01/13/25 1400) PAIN SCALE: 0 /10 ASSESSMENT & PLAN: Moderate Protein-Calorie Malnutrition - NGT in place for Vital AF tube feedings to supplement caloric intake - COMMUNICATIONS TECHNOLOGIST aga noted - Regular diet started per attending - Awaiting good PO intake to d/c NGT Delirium?/Altered mental status - Reorient and redirect as needed - Monitor for any further change in orientation, alertness Supportive Care - continue goals of care discussion attempted with the patient's son Alex - offer emotional support as needed - provide education regarding comfort care measures vs. aggressive treatment Goals of care discussion: Deferred Spiritual distress: Pastoral Care following Recommended Disposition: - TBD - CM to complete discharge planning Reviewed past medical history, allergies, social history and medications. No change noted. Code Status: Full Code Hospital Course History: 74 y/o female with perforated diverticulitis s/p colostomy, recent history of C. Difficile status post deficid transferred from OSH for AMS, lethargy, C Diff colitis Patient reportedly has CT of the abdomen pelvis showing no obstruction. Patient reportedly had CT angiogram of the chest showing no pulmonary embolism 01/14- off cardizem drip. On PO atenolol. HR in 80's . Encourage PO. Replete lytes 01/15- increase activity . Encourage PO . PT OBJECTIVE: Data Review: CMP: Lab Results Component Value Date/Time NA 145 01/16/2025 04:32 AM K 3.7 01/16/2025 04:32 AM CL 111 (H) 01/16/2025 04:32 AM CO2 25 01/16/2025 04:32 AM CA 7.9 (L) 01/16/2025 04:32 AM BUN 7 (L) 01/16/2025 04:32 AM CREAT 0.40 (L) 01/16/2025 04:32 AM GLUCOSE 108 (H) 01/16/2025 04:32 AM TOTALPROTEIN 5.0 (L) 01/13/2025 01:40 PM ALBUMIN 3.5 01/13/2025 01:40 PM BILITOTAL 0.6 01/13/2025 01:40 PM ALKPHOS 62 01/13/2025 01:40 PM AST 31 01/13/2025 01:40 PM ALT 9 01/13/2025 01:40 PM ANIONGAP 9 01/16/2025 04:32 AM CBC: Lab Results Component Value Date/Time WBC 3.8 (L) 01/14/2025 12:59 AM HGB 10.3 (L) 01/14/2025 12:59 AM HGBPOC 9.4 (L) 09/08/2024 07:40 AM HCT 30.7 (L) 01/14/2025 12:59 AM HCTPOC 28 (L) 09/08/2024 07:40 AM PLT 294 01/14/2025 12:59 AM MCV 79.9 (L) 01/14/2025 12:59 AM ABG: Lab Results Component Value Date/Time [facility] No Charge 09/12/2024 04:45 AM Temp (24hrs), Av.3 ??F (36.3 ??C), Min:96.8 ??F (36 ??C), Max:97.6 ??F (36.4 ??C) BP 99/63 (BP Location: Right arm, Patient Position (BP): Supine) Pulse 77 Temp 97.1 ??F (36.2 ??C) (Temporal) Resp 16 SpO2 98% Intake/Output Summary (Last 24 hours) at 01/16/2025 165 Last data filed at 01/16/2025 1000 Gross per 24 hour Intake 150 ml Output 1725 ml Net -1575 ml Physical Exam: General appearance: chronically ill appearing. Lungs: normal respiratory effort Heart: not examined. Abdomen: tender, soft Extremities: moves all extremities equally Neurologic: alert, oriented to person, place, and time : Cohen catheter dependent to gravity Reviewed medical records, discussed with Lamberto Mccarthy*, Bedside [facility] Patient was discussed in Palliative Care IDT meeting. Kelli Cummings, TRISHA, 01/16/2025 4:55 PM [facility] Palliative Care Registered Nurse * Giuliana Albarado [facility] - 01/16/2025 9:50 AM CDT Images from the original note were not included. Patient educated regarding Definity ultrasound contrast and verbalizes positive understanding. Definity administered per policy. Patient free from complaints throughout procedure. [facility] PHYSICIAN ORDERS # [id number] ECHOCARDIOGRAPHY PROTOCOL FOR USE OF ECHOCARDIOGRAPHIC IMAGE ENHANCING AGENT (DEFINITY) This protocol is to be used during an Echocardiogram when a patient is technically difficult to image (as defined by [place] Society of Echocardiography guidelines - the inability to detect two or more contiguous segments in any three of the apical views) or when left ventricular thrombus is suspected. Verify consent to treat has been signed and explain the procedure to the patient. Confirm that the patient does not have a known allergy or hypersensitivity to Definity Perflutren Lipid Microspheres or its components such as polyethylene glycol (PEG). Patient indicated he was not allergic and wanted to have the contrast. Enter order for Definity into Electronic Health Record ???per protocol?? (will require interpreting belt knife feeder to sign). Trained Echo Technologists may proceed with use of echocardiographic image enhancing agent. [facility] currently utilizes Definity (perflutren lipid microspheres). Administer Definity per Echocardiography Policy and Procedure #251 Administration of Ultrasound Contrast as follows: 1.3 mL of activated Definity (perflutren lipid microspheres) diluted with 8.7 mL of preservative-free saline in a 10 mL syringe Initial injection of up to 3mL administered slowly (subsequent injection of 1 to 2 mL as needed) References: Definity Prescribing Information package insert; Revised February 2011 [email or web address] .pdf ASE Consensus Statement - [place] Society [employer] Echocardi[employer] Consensus Statement on the Clinical Applications of Ultrasonic Contrast Agents in Echocardiography; TIFFANY, March 2008 http://www.asecho.org/files/public/ContrastConsensusStatement.pdf [email or web address].html Approved by: Medication Management Committee Initiated: 09/03/2011 Revised: 09/10/2023 Expires: * Shirley Mccarthy MD - 01/15/2025 11:48 AM CDT [facility] Hospitalist/Internal Medicine Progress note LOS: LOS: 3 days HOSPITAL COURSE SUMMARY: 74 y/o female with perforated diverticulitis s/p colostomy, recent history of C. Difficile status post deficid transferred from OSH for AMS, lethargy, C Diff colitis Patient reportedly has CT of the abdomen pelvis showing no obstruction. Patient reportedly had CT angiogram of the chest showing no pulmonary embolism 01/14- off cardizem drip. On PO atenolol. HR in 80's . Encourage PO. Replete lytes 01/15- increase activity . Encourage PO . PT SUBJECTIVE: No fever.ostomy output better .. Confusion +. Calm and co operative OBJECTIVE: Temp (24hrs), Av ??F (36.7 ??C), Min:97.8 ??F (36.6 ??C), Max:98.2 ??F (36.8 ??C) BP 110/62 (BP Location: Right arm, Patient Position (BP): Sitting) Pulse 81 Temp 97.9 ??F (36.6??C) (Temporal) Resp 15 SpO2 95% Intake/Output Summary (Last 24 hours) at 01/15/2025 1148 Last data filed at 01/15/2025 0612 Gross per 24 hour Intake 1310 ml Output 525 ml Net 785 ml Last documented weight: EXAM: General: alert, in no distress. NG tube + Neurologic: Grossly normal. Oriented X2. Confusion +. NG tube + HEENT: atraumatic, Normocephalic, without obvious abnormality Lungs: clear to auscultation bilaterally, normal respiratory effort Heart: normal rate and regular rhythm, S1 and S2 normal Abdomen:soft,non tender. Bowel sounds present . Ostomy + Extremities: intact distal pulses, moves all extremities equally Skin: Warm and dry LABORATORY: Recent Labs 01/12/25 1330 01/14/25 0059 WBC 4.7* 3.8* HGB 10.8* 10.3* HCT 30.9* 30.7* PLT 273 294 Recent Labs 01/12/25 1525 01/13/25 1340 01/14/25 0059 01/15/25 0416 NA 140 136 141 143 K 3.8 3.0* 3.2* 3.3* CL 108* 104 106 110* CO2 17* 20* 24 24 CA 8.6* 7.9* 8.2* 7.8* BUN 4* 3* 2* 3* CREAT 0.48* 0.45* 0.46* 0.50* GLUCOSE 91 94 93 135* Recent Labs 01/12/25 1525 01/13/25 1340 TOTALPROTEIN 5.8* 5.0* ALBUMIN 3.9 3.5 BILITOTAL 0.8 0.6 ALKPHOS 56 62 AST 26 31 ALT 10 9 No results for input(s): INR , PT in the last 72 hours. Invalid input(s): PTT No results for input(s): CPK , CKMB , TROPONIN in the last 72 hours. Diagnostic testing reviewed by me: Medications reviewed by me ASSESSMENT AND PLAN: Principal Problem: Acute C. difficile colitis Active Problems: Protein-calorie malnutrition, moderate Colostomy status (CMS/HCC) Confusion A-fib (CMS/HCC) Elevated troponin Chest discomfort UTI (urinary tract infection) C diff colitis - on deficid. Monitor . Output better this AM Acute cystitis without hematuria - continue with antibiotics> follow cultures perforated diverticulitis s/p colostomy, outpatient follow up Elevated troponins mildly - serial troponins flat -- no chest pain. TTE from November 2024 noted recent history of C. Difficile status post deficid Decreased PO / Probable Protein calorie malnutrition -- Pathway initiated . NG tube for feeds +. Mitts as patient pulle dout NG tube X3 in last 24 hours --now better .. .. Off mitts now . Sitter bedside for safety Nutrition- patient services specialist aga noted. Started on regular diet .. If taking good PO . D/c NG tube History of Afib on eliquis . RVR resolved. Off cardizem drip. Resumed PO BB . Replete K Discussed with Mychal over phone on 01/13/25 - patient is Full code. Alex is MPOA per family but donot have MPOA papers here on file .requested family to provide a copy DVT prevention: eliquis Disposition- Anticipated Disposition Location: home with Anticipated Disposition Timeframe: 1-2 days Disposition Criteria: clinically better Disposition Education Needed: C diff Disposition DME/Equipment Needs: TBD CODE STATUS: Full Code Shirley Paz MD 01/15/2025, 11:48 AM * Shirley Mccarthy MD - 01/14/2025 12:43 PM CDT [facility] Hospitalist/Internal Medicine Progress note LOS: LOS: 2 days HOSPITAL COURSE SUMMARY: 74 y/o female with perforated diverticulitis s/p colostomy, recent history of C. Difficile status post deficid transferred from OSH for AMS, lethargy, C Diff colitis Patient reportedly has CT of the abdomen pelvis showing no obstruction. Patient reportedly had CT angiogram of the chest showing no pulmonary embolism 01/14- off cardizem drip. On PO atenolol. HR in 80's . Encourage PO. Replete lytes SUBJECTIVE: No fever.ostomy output better .. Confusion +. Calm and co operative OBJECTIVE: Temp (24hrs), Av.1 ??F (36.7 ??C), Min:97.2 ??F (36.2 ??C), Max:99.1 ??F (37.3 ??C) BP 130/63 (BP Location: Right arm, Patient Position (BP): Supine) Pulse 77 Temp 98.2 ??F (36.8 ??C) (Temporal) Resp 16 SpO2 99% Intake/Output Summary (Last 24 hours) at 01/14/2025 1243 Last data filed at 01/14/2025 0545 Gross per 24 hour Intake 1150 ml Output 500 ml Net 650 ml Last documented weight: EXAM: General: alert, in no distress. NG tube + Neurologic: Grossly normal. Oriented X2. Confusion +. NG tube + HEENT: atraumatic, Normocephalic, without obvious abnormality Lungs: clear to auscultation bilaterally, normal respiratory effort Heart: normal rate and regular rhythm, S1 and S2 normal Abdomen:soft,non tender. Bowel sounds present . Ostomy + Extremities: intact distal pulses, moves all extremities equally Skin: Warm and dry LABORATORY: Recent Labs 01/12/25 1330 01/14/25 0059 WBC 4.7* 3.8* HGB 10.8* 10.3* HCT 30.9* 30.7* PLT 273 294 Recent Labs 01/12/25 1525 01/13/25 1340 01/14/25 0059 NA 140 136 141 K 3.8 3.0* 3.2* CL 108* 104 106 CO2 17* 20* 24 CA 8.6* 7.9* 8.2* BUN 4* 3* 2* CREAT 0.48* 0.45* 0.46* GLUCOSE 91 94 93 Recent Labs 01/12/25 1525 01/13/25 1340 TOTALPROTEIN 5.8* 5.0* ALBUMIN 3.9 3.5 BILITOTAL 0.8 0.6 ALKPHOS 56 62 AST 26 31 ALT 10 9 No results for input(s): INR , PT in the last 72 hours. Invalid input(s): PTT No results for input(s): CPK , CKMB , TROPONIN in the last 72 hours. Diagnostic testing reviewed by me: Medications reviewed by me ASSESSMENT AND PLAN: Principal Problem: Acute C. difficile colitis Active Problems: Protein-calorie malnutrition, moderate Colostomy status (CMS/HCC) Confusion A-fib (CMS/HCC) Elevated troponin Chest discomfort UTI (urinary tract infection) C diff colitis - on deficid. Monitor . Output better this AM Acute cystitis without hematuria - continue with antibiotics> follow cultures perforated diverticulitis s/p colostomy, outpatient follow up Elevated troponins mildly - serial troponins flat -- no chest pain. TTE from November 2024 noted recent history of C. Difficile status post deficid Decreased PO / Probable Protein calorie malnutrition -- Pathway initiated . NG tube for feeds +. Mitts as patient pulle dout NG tube X3 in last 24 hours --now better .. .. Off mitts now . Sitter bedside for safety Nutrition- patient services specialist eval noted. Started on regular diet .. If taking good PO . D/c NG tube History of Afib on eliquis . RVR resolved. Off cardizem drip. Resumed PO BB Hypokalemia /hypomagnesemia- replete lytes and monitor Discussed with Mychal over phone on 01/13/25 - patient is Full code. Alex is MPOA per family but donot have MPOA papers here on file .requested family to provide a copy DVT prevention: eliquis Disposition- Anticipated Disposition Location: home with Anticipated Disposition Timeframe: 1-2 days Disposition Criteria: clinically better Disposition Education Needed: C diff Disposition DME/Equipment Needs: TBD CODE STATUS: Full Code Shirley Paz MD 01/14/2025, 12:43 PM * Cathie Contreras LPN - 01/13/2025 4:48 PM CDT Patient with elevated heart rate. made aware. DO given. Patient remains asymptomatic. Sitting at the nurse's station chatting with the staff. Denies pain. 1820 made aware IV Metoprolol 5Mg was adm. @ 1655 with only minimal drop in heart rate ( from 156-160 BPM to 120-130BPM then back to 150-160 BPM). Patient now with c/o of nausea. IV Zofran given. DO to adm Cardizem gtt, and ck mag level, if mag level has dropped call her back to inform. Orders entered but not verified by pharm at this time. Noc nurse made aware. * Cathie Contreras LPN - 01/13/2025 1:30 PM CDT Patient continues to be confused but is easily redirected. She has been up to chair in room multiple times today. She was able to assist with new NG placement, following commands. Bridle placed for securement. ST in to see patient after and diet was ordered, however patient is a poor eater, so after NG was verified via x-ray, tube feed was restarted at 20ml/hr as ordered. Patient was allowed to pick foods from the menu she would like to eat to encourage appetite. * Shirley Mccarthy MD - 01/13/2025 10:04 AM CDT [facility] Hospitalist/Internal Medicine Progress note LOS: LOS: 1 day HOSPITAL COURSE SUMMARY: 74 y/o female with perforated diverticulitis s/p colostomy, recent history of C. Difficile status post deficid transferred from OSH for AMS, lethargy, C Diff colitis Patient reportedly has CT of the abdomen pelvis showing no obstruction. Patient reportedly had CT angiogram of the chest showing no pulmonary embolism SUBJECTIVE: No fever. More awake and alert . Confusion +. Calm and co operative OBJECTIVE: Temp (24hrs), Av.9 ??F (36.6 ??C), Min:97.3 ??F (36.3 ??C), Max:98.6 ??F (37 ??C) BP 110/58 (BP Location: Right arm, Patient Position (BP): Supine) Pulse 100 Temp 98.5 ??F (36.9??C) (Temporal) Resp 16 SpO2 98% Intake/Output Summary (Last 24 hours) at 01/13/2025 1004 Last data filed at 01/13/2025 0820 Gross per 24 hour Intake -- Output 775 ml Net -775 ml Last documented weight: EXAM: General: alert, in no distress Neurologic: Grossly normal. Oriented X2. Confusion +. NG tube + HEENT: atraumatic, Normocephalic, without obvious abnormality Lungs: clear to auscultation bilaterally, normal respiratory effort Heart: normal rate and regular rhythm, S1 and S2 normal Abdomen:soft,non tender. Bowel sounds present Extremities: intact distal pulses, moves all extremities equally Skin: Warm and dry LABORATORY: Recent Labs 01/12/25 1330 WBC 4.7* HGB 10.8* HCT 30.9* PLT 273 Recent Labs 01/12/25 1525 NA 140 K 3.8 CL 108* CO2 17* CA 8.6* BUN 4* CREAT 0.48* GLUCOSE 91 Recent Labs 01/12/25 1525 TOTALPROTEIN 5.8* ALBUMIN 3.9 BILITOTAL 0.8 ALKPHOS 56 AST 26 ALT 10 No results for input(s): INR , PT in the last 72 hours. Invalid input(s): PTT No results for input(s): CPK , CKMB , TROPONIN in the last 72 hours. Diagnostic testing reviewed by me: Medications reviewed by me ASSESSMENT AND PLAN: Principal Problem: Acute C. difficile colitis Active Problems: Protein-calorie malnutrition, moderate Colostomy status (CMS/HCC) Confusion A-fib (CMS/[facility]) Elevated troponin Chest discomfort UTI (urinary tract infection) C diff colitis - on deficid. Monitor . Output better this AM Acute cystitis without hematuria - continue with antibiotics> follow cultures perforated diverticulitis s/p colostomy, outpatient follow up Elevated troponins mildly - serial troponins flat -- no chest pain. TTE from November 2024 noted recent history of C. Difficile status post deficid Decreased PO / Probable Protein calorie malnutrition -- Pathway initiated . NG tube for feeds +. Mitts as patient pulle dout NG tube X3 in last 24 hours --now better .. .. Off mitts now . Sitter bedside for safety Nutrition- patient services specialist aga noted. Started on regular diet .. If taking good PO . D/c NG tube History of Afib on eliquis Discussed with Mychal over phone- patient is Full code. Alex is MPOA per family but donot have MPOA papers .requested family to provide a copy DVT prevention: eliquis Disposition- Anticipated Disposition Location: home with Anticipated Disposition Timeframe: 1-2 days Disposition Criteria: clinically better Disposition Education Needed: C diff Disposition DME/Equipment Needs: TBD CODE STATUS: Full Code Shirley Paz MD 01/13/2025, 10:04 AM * Kaya De Santiago, RODOLFO - 01/13/2025 9:39 AM CDT [facility] 3K Ph. ; Fax. Acute Speech-Language Pathology Swallow Evaluation 01/13/2025 Room: [address] [place] [address] Name: Tiffany Sexton Age: 74 y.o. Date of : 1950 Insurance: Payor: MEDICARE / Plan: MEDICARE PART A AND B / Product Type: Medicare / Patient class: Inpatient Confirmed patient's identification of name and date of : by patient report Consent to treatment given by patient and nurse with results as follows: Onset of illness/injury or date of surgery: 01/12/2025 HPI Tiffany Sexton is a 74 y.o. female who was transferred to this facility from another facility. Per report, patient diagnoses at discharge included sepsis, shock, C. difficile colitis, chronic nausea,dehydration, hypoglycemia, hypokalemia, atrial fibrillation/flutter, INDU, hypomagnesemia, lactic acidosis, status post colostomy, chest discomfort, elevated troponin, malnutrition. Subjective Information and Clinical Observations Patient/Family Goals Statement: Pt denied history of dysphagia even when presented with swallow history at this facility. Pain: Refer to Doc Flowsheet for documented pain levels. Level of Alertness: Alert/Responsive Mood/Affect: Patient calm and cooperative Position: Seated on the edge of bed Circumstances negatively impacting performance this date: none Objective information Predisposing dysphagia risk factors: GERD and Camargo's esophagus Acute dysphagia risk factors: altered mental status and limited or infrequent ambulation Signs of possible chronic dysphagia: prior history of COMMUNICATIONS TECHNOLOGIST intervention via MBS completed on 09/14/24. Results revealed aspiration of thin and nectar liquids, penetration of honey thick liquids to the vocal folds, and maximal pharyngeal residue with difficulty clearing residue. Pt was recommended to be NPO and received alternative nutrition via NG tube. Pt then went to [facility] in October 2024 and eventually resumed a regular/thin diet, though PO intake remained variable and frequently poor. Has had two admissions since discharge from [facility] related to complications of colostomy, n/v, abdominal pain. Previous level of swallowing function: When asked if she has had difficulty swallowing, pt responded, No, I didn't think I did now. Pt did attest to occasional choking when she gets in a hurry. Chest XR on 11/30/24 was clear suggesting good tolerance of PO diet. Diet prior to evaluation: NPO Patient has Large bore NG tube and is on room air Patient has food allergies: None per patient or chart review. The patient self fed during the session. Oral Musculature Structure and Function CN V: jaw movement intact bilaterally CN VII: facial movement intact bilaterally CN IX/X: unable to visualize CN XII: lingual movement intact bilaterally and tongue protrudes to midline Dentition: present and adequate Oral Mucosa: WFL Secretion Management:swallows own secretions Laryngeal Function: volitional cough is perceptually weak Vocal Quality: WFL Oral Phase Aspiration risk management strategies performed/discussed with patient: Oral care completed prior to po trials by patient in an attempt to reduce potential negative pulmonary complications should aspiration of bacteria-laden oropharyngeal secretions occur. natural dentition cleaned via toothbrush/to othpaste. Lip Seal: WFL Mastication: WFL Oral Transit: WFL Bolus Clearance: WFL Oral phase summary: functional Pharyngeal Phase Laryngeal Elevation: able to palpate Ice Chip Trials: The patient demonstrated no signs/symptoms of distress on ice chips provided. Thin liquid: Patient demonstrated no signs/symptoms of distress via small bore straw. Puree: Patient demonstrated no signs/symptoms of distress. Mechanical soft: Patient demonstrated no signs/symptoms of distress. Solid foods: Patient demonstrated no signs/symptoms of distress. Clinical representation of potential pharyngeal aspiration suspected: No Pharyngeal phase summary: appeared functional Esophageal Phase Screening Questionnaire Information unable to be obtained from the patient due to: confusion Family/Caregiver/Significant other present and providing information: family/caregiver not present History of GERD per H&P: Yes. GERD Medications: none per MAR History of Camargo's esophagus History of EGD Yes. Date: 11/19/24. Findings: Impression: - LA Grade D esophagitis with bleeding. - NG tube trauma to gastric mucosa with mild bleeding. - Normal duodenal bulb, first portion of the duodenum and second portion of the duodenum. - No specimens collected. GI consult consideration: Not at this time Assessment Pt awake and agreeable to speech therapy. Supervised by career developer. Pt came to EOB with assistance. Patient presents with no overt clinical signs of oropharyngeal dysphagia. No overt s/s of distress present with any po trials provided during evaluation. No apparent vocal quality changes appreciated. Pt did gag on applesauce and appeared averse to peaches and tod cracker. She cited texture sensitivity as the reason for her response but suspect chronic poor appetite may be contributing. Modified barium swallow study is not indicated at this time. Recommend regular diet and thin liquids. Pt would benefit from assistance to order preferred foods from the menu to stimulate her appetite. Nurse aware. No further need for swallowing intervention. Swallowing Recommendations DIET RECOMMENDATIONS: Regular and IDDSI 0 Normal (Thin) Liquids PATIENT SPECIFIC SWALLOWING GUIDELINES: Single, small volume drinks Alternate bites of food with drinks of liquid Medications to be provided one at a time; whole or crushed in puree as needed GENERAL SWALLOWING GUIDELINES: Patient should be seated close to 90 degrees, preferably in the chair Remain upright for 30-60 minutes after meals Take frequent drinks during meals Small sips/bites Eat slowly Minimize distractions during oral intake (conversations/TV) Monitor for signs and symptoms of aspiration Good oral care 3 times every day with toothbrush/toothpaste Recommendations DISCHARGE RECOMMENDATIONS: Home and 24-hour assistance * The final discharge location is determined through physician, case management, and patient/caregiver input along with insurance authorization of skilled services when appropriate Recommendations for referral to another service: None at this time Precautions Plan of Care Patient precautions: Aspiration, Fall, and Seizure No additional services indicated for swallowing. Will complete Cognitive-Linguistic in future COMMUNICATIONS TECHNOLOGIST sessions, as appropriate. Please notify speech therapy department should the patient's condition change and/or patient requires COMMUNICATIONS TECHNOLOGIST services prior to the next anticipated COMMUNICATIONS TECHNOLOGIST visit. Education Disposition Regarding: swallowing evaluation rationale, results and recommendations of evaluation, rationale ofrecommended diet, strategies to increase safety with po intake, and speech therapy plan of care Learner, method of education, and response to learning listed in Education tab in Epic Before session: Patient lying in bed After session: Patient sitting at edge of bed and supervised by staff career developer Current Diagnoses/Past Medical History Pertinent diagnoses and past medical history related to this hospital stay are present in physicianH&P and physician daily notes. Prior to session, completed thorough chart review. Reviewed prior therapy treatment notes as applicable. Further treatment notes and therapeutic goals can be found in Care Plan Notes. If the patient discharges from facility prior to another therapy visit, this shall serve as the therapy discharge summary Thank you for this referral, Kaya De Santiago M.S., [facility]-COMMUNICATIONS TECHNOLOGIST Acute Speech Therapy Charge Zone Phone #[phone] Acute Speech Therapy Charge Pager #[phone] * Tomeka Robles RN - 01/13/2025 6:02 AM CDT Patient pulled NG tube out for the FOURTH time. Sitter was present in the room and was not observing patient which allowed her to pull the tube out. Doctor notified. Mitts were not on patient upon arrival to the room after call light was pushed by sitter. * Maria L Palacios LPN - 01/12/2025 10:17 PM CDT Patient pulled NG out for the third time. Was able to advance it back in, ordered Xray to verify placement. Notified Dr. Kinsey to see if we could get and order for mitts. Was given an order for Zyprexa and if that doesn't work then call back for the order for mitts. * Colten Hennessy PHARMACIST - 01/12/2025 7:24 PM CDT Drugs are changed or added to the regimen. Examples include recommending gram negative coverage or vancomycin for an HCAP patient from a alf. Dr. Berry consulted pharmacy regarding best therapy for urinary tract infection while also decreasing the chance of worsening the possible c.diff that is currently being treated. Antibiotic regimens were discussed with him and the following was agreed upon: Discontinue the current regimen of cefepime IV every 12 hours Administer a one-time dose of Gentamicin 5 mg/kg dosed on available body weight of around 80 kg fora dose of 400 mg IV to be administered tonight. Colten Hennessy, PHARMACIST * Camilla Hurtado RN - 01/12/2025 3:02 PM CDT Patient was transported on arrival she did have a NG tube. Patient ripped NG tube out, advised physician and will be placing a new one. Physician put in an order to have a sitter bedside. Patient is only alert to self and place. Patient continues to try and get out of bed, bed alarm is on. The nurse tried to contact family to confirm allergies and updates on patient. Spoke with granddaughter Maame and confirmed only allergy known is Morphine. Stool and urine samples were sent off. * Nevin Saba RD - 01/12/2025 1:29 PM CDT The patient was evaluated by the dietitian and was found to have Malnutrition Nutrition Diagnosis: Moderate protein-calorie malnutrition (01/12/25 130). The malnutrition pathway is recommended and the assessment via ASPEN criteria and nutrition recommendations from the dietitian are as follows: ASPEN Malnutrition Assessment and Findings Subcutaneous Fat Loss Assessment: Mild fat loss (01/12/25 130) Muscle Wasting Assessment: Mild (01/12/25 130) Edema: Normal contour with a barely perceptible pit (no findings) (01/12/25 130) Hand Secondary English Teacher: Reduced or weakening office equipment mechanic (moderate) (01/12/25 130) Percentage of Energy: < or equal to 50% for > or equal to 5 days (severe-acute) (01/12/25 1301) Percentage of Weight Loss: Unable to assess (01/12/25 130) Malnutrition Decision Malnutrition Nutrition Diagnosis: Moderate protein-calorie malnutrition (01/12/25 130) BMI Malnutrition Recommendations Nutrition Interventions: Tube feeding (01/12/25 130) Cosigned by Gardenia Berry MD at 01/12/2025 2:24 PM CDT documented in this encounter H&P Notes * Gardenia Berry MD - 01/12/2025 11:21 AM CDT Images from the original note were not included. HOSPITALIST HISTORY AND PHYSICAL Tiffany Sexton : 1950 PCP: Non-Staff, Physician Chief Concern: C difficile History of Presenting Illness: 74 y.o. female patient with past medical history reportedly significant for diverticulitis, colovesical fistula with colostomy, recent hospitalization with nausea and vomiting, hypertension, GERD, other, was transferred to this facility from another facility. Per report, patient diagnoses at discharge included sepsis, shock, C. difficile colitis, chronic nausea, dehydration, hypoglycemia, hypokalemia, atrial fibrillation/flutter, INDU, hypomagnesemia, lactic acidosis, status post colostomy, chest discomfort, elevated troponin, malnutrition. Patient reportedly has CT of the abdomen pelvis showing no obstruction. Patient reportedly had CT angiogram of the chest showing no pulmonary embolism . Limited information is available from transferring facility. Follow-up final information. Limited information available from patient. Follow-up final information available. In speaking with patient, patient denies any discomfort. She denies changes to ostomy output. She has no complaints. Nasogastric tube in place with what appears to be normal function. I have attempted multiple times (per patient request) to reach patient's Protected Health Information persons without success. Continue efforts. Patient denies tick exposure or tick bites recently. Accompanied by Registered Nurse Sylwia Pruitt, throughout interview and examination. Patient care plansdiscussed with Registered Nurse as well. Patient was admitted directly having been accepted by [facility] staff/accepting provider. Following patient's arrival to this facility, I was notified of patient's acceptance and patient's reported care needs as described. See acceptance documentation. Limited information is available from transferring facility. Follow up additional records as they become available. Past Medical/Surgical History including that autopopulated by the EPIC record: Past Medical History: Diagnosis Date Clostridium difficile enterocolitis 11/17/2024 Hx 10/27/2024 Diverticulosis of colon GERD (gastroesophageal reflux disease) HTN (hypertension) Hyperlipidemia Wears glasses Past Surgical History: Procedure Laterality Date FOREIGN BODY REMOVAL 09/07/2024 FOREIGN BODY REMOVAL- REMOVAL OF ABTHERA performed by Moe Ro DO at [facility] OR CHOLECYSTECTOMY HX COLOSTOMY N/A 09/07/2024 COLOSTOMY performed by Moe Ro DO at [facility] OR ESOPHAGOGASTRODUODENOSCOPY N/A 11/19/2024 ESOPHAGOGASTRODUODENOSCOPY performed by Aniya Shell DO at [facility] OR EXAMINATION UNDER ANESTHESIA N/A 09/07/2024 EXAMINATION OF VAGINAL UNDER ANESTHESIA performed by Moe Ro DO at [facility] OR EXPLORATORY LAPAROTOMY N/A 09/06/2024 LAPAROTOMY EXPLORATORY performed by Moe Ro DO at [facility] OR HYSTERECTOMY HX KNEE REPLACEMENT right HX LOW ANTERIOR BOWEL RESECTION N/A 09/06/2024 LOW ANTERIOR COLON RESECTION performed by Moe Ro DO at [facility] OR ROTATOR CUFF REPAIR right HX SPINAL SURGERY lumbar INSERT MIDLINE IV 09/12/2024 ID BLDR IRRIGATION SMPL LAVAGE &/INSTLJ N/A 09/07/2024 BLADDER IRRIGATION AND/OR INSTILLATION performed by Moe Ro DO at [facility] OR ID COLECTOMY PARTIAL W/ANASTOMOSIS N/A 09/07/2024 ILEOCOLIC ANASTOMOSIS performed by Moe Ro DO at [facility] OR ID COLECTOMY PRTL W/RMVL TERMINAL ILEUM & ILEOCOLOS N/A 09/06/2024 ILEOCECECTOMY performed by Moe Ro DO at [facility] OR ID CYSTO W/INSERT URETERAL STENT Bilateral 09/06/2024 CYSTOURETHROSCOPY URETERAL STENT INSERTION performed by Leif Luther MD at [facility] OR ID ESOPHAGOGASTRODUODENOSCOPY TRANSORAL DIAGNOSTIC 07/16/2012 ESOPHAGOGASTRODUODENOSCOPY performed by Romero Beltran DO at [facility] ENDOSCOPY ID NEGATIVE PRESSURE WOUND THERAPY DME <= 50 SQ CM N/A 09/06/2024 PLACEMENT OF ABTHERA WOUND VAC performed by Moe Ro DO at [facility] OR ID NEGATIVE PRESSURE WOUND THERAPY DME <= 50 SQ CM 09/07/2024 WOUND CLOSURE VACUUM ASSISTED performed by Moe Ro DO at [facility] OR [facility] records the following medications at the time of this document: Medication List CONTINUE taking these medications acetaminophen 325 mg tablet Commonly known as: TYLENOL Take 2 Tablets (650 mg) by mouth every 6 hours as needed for Other (See Comment) (See admin instructions). Signed by: Physician Assistant Nick Alvarez Refills: 0 apixaban 5 mg tablet Commonly known as: ELIQUIS Take 5 mg by mouth 2 times daily. Refills: 0 artificial lubricant 94-3 % ointment Commonly known as: GENTEAL PM Administer 0.25 Inches in both eyes every 12 hours. Signed by: Physician Assistant Nick Alvarez Refills: 0 atenoloL 25 mg tablet Commonly known as: TENORMIN Take 0.5 Tablets (12.5 mg) by mouth daily. Signed by: Dr. Satr Gregory Refills: 0 dicyclomine 10 mg capsule Commonly known as: BENTYL Take 1 Capsule (10 mg) by mouth 4 times daily as needed for abdominal pain Signed by: Dr. Candis Calix Quantity: 14 Capsule Refills: 0 docusate sodium 50 mg/5 mL solution Commonly known as: COLACE Take 10 mL (100 mg) by mouth 2 times daily as needed for Constipation. Signed by: Dr. Candis Calix Refills: 0 droNABinol 2.5 mg capsule Commonly known as: Marinol Take 1 Capsule (2.5 mg) by mouth 2 times daily. Signed by: Dr. Star Gregory Refills: 0 guaiFENesin 100 mg/5 mL solution Commonly known as: ROBITUSSIN Take 15 mL (300 mg) by mouth every 6 hours. Signed by: Physician Assistant Nick Alvarez Refills: 0 HYDROcodone-acetaminophen 5-325 mg tablet Commonly known as: NORCO Take 1 Tablet by mouth every 6 hours as needed for Pain. Max Daily Amount: 4 Tablets Signed by: Dr. Jessee Golden Quantity: 20 Tablet Refills: 0 ipratropium-albuteroL 0.5 mg-3 mg(2.5 mg base)/3 mL Solution for Nebulization Commonly known as: DUONEB Take 3 mL by inhalation every 6 hours as needed for Shortness of Breath. Signed by: Physician Margarine Maker Nick Alvarez Refills: 0 metoclopramide HCl 10 mg tablet Commonly known as: REGLAN Take 1 Tablet (10 mg) by mouth 4 times daily before meals and at bedtime. Signed by: Dr. Star Gregory Refills: 0 miconazole 2 % Cream Commonly known as: JOAN,MICOTIN,REMEDY AF Apply to affected area 2 times daily. Signed by: Physician Margarine Maker Nick Alvarez Refills: 0 ondansetron 4 mg Tablet, Rapid Dissolve Commonly known as: ZOFRAN ODT Take 1 Tablet (4 mg) by mouth every 8 hours as needed for Nausea/Emesis. Dissolve tablet on top of tongue, then swallow with saliva. Signed by: Physician Margarine Maker Nick Alvarez Refills: 0 polyethylene glycol 17 gram Powder in Packet Commonly known as: MIRALAX Take 1 Packet (17 Grams) by mouth 1 time daily as needed for Constipation. Signed by: Dr. Candis Calix Refills: 0 scopolamine 1 mg/72 hr patch Commonly known as: TRANSDERM-SCOP Apply 1 Patch to skin as directed every third day. Signed by: Dr. Star Gregory Refills: 0 zinc OXIDE-cod liver oil 40 % Paste Commonly known as: Desitin Apply to affected area see administration instructions. Signed by: Dr. Candis Calix Quantity: 28 Gram Refills: 0 Allergies: Allergies Allergen Reactions Morphine Hives and Hallucination Social History including that autopopulated by the EPIC record: Social History Tobacco Use Smoking status: Never Smokeless tobacco: Never Substance Use Topics Alcohol use: No FamilyHistory including that autopopulated by the [facility] record: Family History Problem Relation Name Age of Onset Breast Cancer Mother Review of Systems-see also above: Please note, patient gives conflicting information and appears to be confused. General, constitutional: No reported: current fevers, chills, syncope, or presyncope Positive for: HEENT: No reported: current headache, recent head trauma, new visual change Positive for: Cardio: No reported: current chest pressure or other chest discomfort, palpitations, new leg swelling. Patient does not recall having had chest discomfort previously. Previous admission discussed with patient. Positive for: Respiratory: No reported: new dyspnea, new cough, hemoptysis Positive for: Gastrointestinal: No reported: current bloody or tarry stools, new abdominal discomfort, new nausea, vomiting, Positive for: See above. Genitourinary: No reported: current dysuria, hematuria Positive for: Patient describes discomfort with urination. Musculoskeletal: No reported: recent muscle trauma or new muscle pain Positive for: Neurologic: No reported: new altered sensation or description of new focal neuro deficit Positive for: Integumentary: No reported: new bruising, new rash Positive for: Psychiatric: No reported: current anxiety, depression, or new confusion on current medications Positive for: On Physical Examination: Vital Signs: Patient Vitals for the past 24 hrs: BP Temp Temp src Pulse SpO2 01/12/25 1133 111/61 97.3 ??F (36.3 ??C) Temporal 86 99 % General: Patient awake, alert, no acute distress. See above. HEENT: Normocephalic, extra-ocular movements intact, pupils round and reactive to light. No obviousear or nose trauma or drainage. Neck: Trachea midline, no JVD. Neck actively supple. Cardiovascular: regular rhythm without rub. No new edema. Respiratory: Lungs coarse to auscultation bilaterally, no stridor, no use of accessory muscles. Breathing is not labored. Gastrointestinal: Bowel sounds positive, abdomen soft and non-tender, no guarding, no rigidity, no rebound. Ostomy without gross infection or leaking. confirms proper function. Monitor. Musculoskeletal: Patient moves extremities to instruction to baseline as described, without obvioustrauma or discomfort on palpation. No calf discomfort even on palpation. Neurological: No obvious new focal neurologic deficits; no new altered sensation. Integumentary: Skin appropriately warm without obvious acute bruising or acute rash. Psychiatric: Confusion noted. Baseline unknown. Multiple attempts to reach family unsuccessful. Studies: Labs: No results for input(s): WBC , HGB , HCT , PLT in the last 72 hours. No results for input(s): NA , K , CL , CO2 , CA , BUN , CREAT , GLUCOSE in the last 72 hours. No results for input(s): TOTALPROTEIN , ALBUMIN , BILITOTAL , ALKPHOS , AST , ALT in the last 72 hours. No results for input(s): INR , PT in the last 72 hours. Invalid input(s): PTT No results for input(s): BASETROP , 2HRTROP , DELTA , 6HRTROP in the last 72 hours. EKG: Normal sinus rhythm, low voltage QRS. T wave abnormality lateral. Please follow-up belt knife feeder's final interpretation. Assessment and Plan: Principal Problem: Acute C. 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 difficile colitis. Patient has been treated with vancomycin and IV Flagyl at transferring facility per records available. --Will use fidaxomicin at this time as well as IV Flagyl given unclear absorption ability due to patient recent surgery. Per transferring information, consideration is made for possible peg tube. Patient states she is able to eat. Limited information available. --Follow-up additional information is available. --Swallowing evaluation. --Continue nasogastric feeding as at prior facility. Chest discomfort reported per records from transferring facility. Patient denies. Unable to reach family. --Follow-up troponins. --Follow-up telemetry. 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 Appears to be functioning normally and without evidence of infection orleakage. --Follow-up with ostomy care. Confusion. Baseline is unknown. Limited information regarding events at transferring facility. --Follow-up CT brain. --Follow-up with family reach. A-fib ([facility]) reported in 1 area of transferring documentation. Patient denies knowledge of atrial fibrillation. --Attempt to obtain additional information. --Follow-up TSH. --Follow-up echocardiogram given patient's new chest discomfort, as well as newly decreased QRS waves. Acute urinary tract infection, uncomplicated, present on admission. No costovertebral angle tenderness to suggest pyelonephritis. Treatment with antibiotics, and risks with C. difficile discussed with patient. Patient wishes to proceed with antibiotics to treat for UTI given her discomfort with urination prior to catheter (and has continued discomfort).. Discussed with pharmacy who recommended Rocephin in light of patient's C. difficile given limited anaerobic effect. Patient to follow up with patient's Primary Care Provider regarding risk factors for infection, etc. Antibiotics. Follow up cultures, symptoms. Deep Venous Thrombosis Prevention: Chronic anticoagulation. Patient confirms taking her chronic anticoagulation. She denies any bleeding with this. Code Status: Full per patient. Patient in agreement with the assessment and plan. Patient is to follow up with Primary Care Provider/Specialists regarding the events leading to this admission, as well as the diagnoses, tests, treatments, recommendations, etc., from this admission, as well as previous medical history, and age andgender and symptom appropriate screening, immunizations, etc. All questions answered. I have a reasonable expectation that this patient requires hospital care that crosses 2 midnights supported by complex medical factors documented in the medical record. Signed: Gardenia Berry MD 01/12/2025, 11:47 AM PCP: Non-Staff, Physician This document was created using voice recognition software as well as field autopopulation as provided by the [employer] electronic record. Please contact the author of this document and [employer] support staffwith any questions regarding accuracy of attorney at law, data content, inconsistencies, etc. documented in this encounter Procedure Notes * Sagar Ledbetter CNA - 01/13/2025 8:34 PM CDT VASCULAR ACCESS TEAM Peripheral IV insertion with lab collection PATIENT NAME: Tiffany Sexton DATE OF : 1950 CSN: [id number] DATE: 01/13/2025 Room: [address] [place] [address] Admit Date: 01/12/2025 Hospital day: LOS: 1 day [place]: Allergies Allergen Reactions Morphine Hives and Hallucination PERIPHERAL IV INSERTION and LAB COLLECTION Ultrasound assessment was performed to assess adequacy of vascular anatomy Adequate vessel was located Insertion site cleansed for 30 seconds with Chlora-prep. Site allowed to dry before ultrasound guided needle stick. A 22 Gauge 1.75 Inch peripheral IV was successfully placed using ultrasound guidance in the Right,LOWER Arm Secure port adhesive used Yes 1 attempts 20minutes required to complete procedure Labs collected No Blood Cultures collected No Positive blood return noted Neutral pressure cap applied Catheter Flushed with 5ml of Normal Saline Transparent dressing applied with date, time and initials of cowoker inserting. LDA documentation is contained in EMR flowsheet Patient tolerated well. Sagar Ledbetter CNA * Keily Olson RN - 01/12/2025 5:20 PM CDTProcedure(s): INSERT MIDLINE IV Images from the original note were not included. VASCULAR ACCESS NOTE Midline PATIENT NAME: Tiffany Sexton DATE OF : 1950 [facility]: [id number] DATE: 01/12/2025 Room: [address] [place] [address] Admit Date: 01/12/2025 Hospital day: LOS: 0 days LINE STATUS: A Midline catheter was successfully inserted and can be used Adult Midline Catheter: Single Lumen 01/12/251719 Left: brachial vein (Active) 01/12/251719 brachial vein Earliest Known Present: Present on Admission: No Orientation: Left: Size: Number of Insertion Attempts: 1 Insertion: Patient Tolerance: tolerated well Insertion: Pain Prevention: Power Injectable Compatable: Yes Earliest Known Removed: Removal Indication: Removal Interventions: Inserted Catheter Length (cm) 10 01/12/25 172 Midline Catheter (WDL) WDL 01/12/25 172 Extremity Circumference, Mid-Upper (cm) 28 01/12/25 172 Patency flushes w/o difficulty;positive blood return 01/12/25 172 Line Interventions antimicrobial cap/s in place or applied to line and/or tubing;system flushed 01/12/25 172 Dressing Type/Securement antimicrobial patch/disc;transparent dressing;catheter securement device utilized 01/12/25 172 Dressing Changed Date 01/12/25 01/12/25 172 Needleless Connector Changed Date 01/12/25 01/12/25 172 Line Criteria Poor venous access 01/12/25 172 Number of days: 0 MIDLINE PROCEDURE A Time Out process was completed prior to the midline placement procedure confirming correct patient, correct procedure site, and correct procedure being performed. Ultrasound assessment was performed to assess adequacy of vascular anatomy Adequate vessel was located with less than 45% catheter to vein ratio. Insertion site cleansed for 30 seconds with Chlora-prep Allowed to dry before initial needle stick. A midline was inserted in the brachial vein of the left upper arm using ultrasound guidance under sterile technique. 20gauge, 10cm Secure port adhesive used Yes 1 attempts 45 minutes required to complete procedure Positive blood return visualized. Neutral pressure cap applied Catheter flushed easily with 5ml of Normal Saline Transparent antimicrobial stabilization dressing applied Antimicrobial cap placed Dressing with date, time and initials of RN Patient tolerated procedure well. Primary care nurse notified of catheter placement Keily Olson RN CARE AND MAINTENANCE This is not a central line. NO BLOOD PRESSURES on arm with powerglide Requires physician order for blood draws The midline is indicated for use as a peripheral IV access only The midline is Power injectable - Securely apply neutral OR positive pressure cap when not in use. Use port protector cap when not in use Flush the catheter with 5 mL of normal saline every 12 hours or after each use, using a 10 mL or larger Flush the catheter with 10ml normal saline before blood draw and flush with 20 ml of normal saline after blood draws, using a 10ml or larger syringe. Waste 5ml prior to collection. Flush catheter once weekly when not in use(outpatient setting). Flush catheter using pulsating start-stop technique Always use 10ml syringe when flushing Do not forcefully flush against resistance Change dressing weekly and as needed using sterile technique documented in this encounter Consult Notes * Nevin Saba, RD - 01/24/2025 12:31 PM CDTAssociated Order(s): IP CONSULT TO NUTRITION SERVICES Nutritional Status/Recommendations/Plan for Follow up: Received consult for TF. Recommend Vital AF, start at 20 ml/hr, advance 20 ml/hr Q 6 hrs to goal rate 60 ml/hr with 150 ml water flush q6h Provides 1728 kcal, 108 g protein, 1768 ml water daily (TF and flushes) Labs reviewed, noted low K- being replaced. [] NG / OG [] NJT, postpyloric tube [x] PEG / G-tube [] PEJ / J-tube Verified by: IR [] Gastro-Jejunostomy tube Date: 01/24/25 Estimated Needs: Estimated Energy Target: 4890-5377 (01/12/25 1301) Estimated Protein Target: 70-100 (01/12/25 1301) Estimated Fluid Target : 1303-1140 (01/12/25 1301) Nutrition Energy Formula: Calories per kilogram (01/12/25 130) Weight Used for Formula: Adjusted body weight (68 kg) (01/12/25 130) Current diet/nutrition support: DIET SUPPLEMENT GEN ADULT TID DIET NPO See Comments, Food/Meal: Dinner (01/19/251919),Intake (%): (!) 0% (01/19/251919) Weight status/changes: Weight: 69.4 kg (153 lb) (01/24/25 0457) Last seven weights (if available) from 12/27/24 1232 to 01/24/25 1231 (Last 7 readings): Weight Weight Method 01/24/25 0457 69.4 kg (153 lb) Actual 01/23/25 0500 78.4 kg (172 lb 13.5 oz) Actual 01/20/25 0543 80.1 kg (176 lb 9.6 oz) Actual Admission:Weight: 80.1 kg (176 lb 9.6 oz) (01/20/25 0543)Weight Method: Actual (01/20/25 0543) Body mass index is 24.69 kg/m??. [place] body weight: 59.3 kg (130 lb 11.7 oz) Adjusted ideal body weight: 63.3 kg (139 lb 10.2 oz) Nutrition Focused Exam Physical Findings- Summary: Malnutrition Nutrition Diagnosis: Moderate protein-calorie malnutrition (01/12/25 130) Subcutaneous Fat Loss Assessment: Mild fat loss (01/12/25 130) Muscle Wasting Assessment: Mild (01/12/25 130) Edema: Normal contour with a barely perceptible pit (no findings) (01/12/25 130) Hand Secondary English Teacher: Reduced or weakening office equipment mechanic (moderate) (01/12/25 130) Percentage of Energy: < or equal to 50% for > or equal to 5 days (severe-acute) (01/12/25 130) Percentage of Weight Loss: Unable to assess (01/12/25 130) Additional assessment indices: Alverto Score: 15 (01/24/25 0714) Last Bowel Movement (mm/dd/yyyy): 01/21/25 (01/21/25 1900) Stool Consistency - Reference [place] Stool Chart: liquid - (type 7) (01/23/25 0400) Bowel Sounds: All Quadrants: (normoactive) (01/21/25 1900) Allergies Allergies Allergen Reactions Morphine Hives and Hallucination Labs: Lab Results Component Value Date/Time NA 137 01/24/2025 03:37 AM K 2.9 (L) 01/24/2025 03:37 AM CL 100 01/24/2025 03:37 AM CO2 25 01/24/2025 03:37 AM CA 8.8 01/24/2025 03:37 AM BUN 7 (L) 01/24/2025 03:37 AM CREAT 0.50 (L) 01/24/2025 03:37 AM GLUCOSE 120 (H) 01/24/2025 03:37 AM TOTALPROTEIN 5.0 (L) 01/13/2025 01:40 PM ALBUMIN 3.5 01/13/2025 01:40 PM BILITOTAL 0.6 01/13/2025 01:40 PM ALKPHOS 62 01/13/2025 01:40 PM AST 31 01/13/2025 01:40 PM ALT 9 01/13/2025 01:40 PM ANIONGAP 12 01/24/2025 03:37 AM No results found for: HGBA1C , [id number] Lab Results Component Value Date/Time RDW 20.4 (H) 01/24/2025 03:37 AM Lab Results Component Value Date/Time CRP 46.3 (H) 10/26/2024 04:51 AM Lab Results Component Value Date/Time MG 1.7 01/21/2025 04:25 AM Lab Results Component Value Date/Time CA 8.8 01/24/2025 03:37 AM PO4 2.3 (L) 01/19/2025 04:44 AM No results found for: XDMB453 , VITD25 , ABKV18TWP6 , PPJC57TKE6 , PREU35NHVC , [id number] , QLCT7UMZJYZN , VITAMINDTO , [id number] No results found for: [id number] No results found for: FOLATE , FOLATERBC No results found for: ZINC * Erendira Reagan RN - 01/18/2025 6:20 PM CDTAssociated Order(s): IP CONSULT TO WOUND/SKIN CARE TEAM Images from the original note were not included. Skin/Wound/Ulcer/Pressure Injury Consult [facility] Patient Information Today's Date: 01/18/2025 Name: Tiffany Sexton Age: 74 y.o. Date of : 1950 CSN: [id number] Date/time of admission: 01/12/2025 11:21 AM Hospital day: LOS: 6 days Room: [address] [place] [address] Physical Assessment Wound Details: Wound 01/18/25 Bilateral gluteal Irritant Contact Dermatitis Moisture Related (Active) Wound (WDL) WDL except 01/18/251749 Pictures Taken (Date) 01/18/25 01/18/251749 Drainage Amount no drainage 01/18/251749 Wound Shape irregular 01/18/251749 Wound Base moist;macerated;reddened;pink 01/18/251749 Periwound Area blanchable erythema;satellite lesions;redness 01/18/251749 Wound Edges irregular;macerated;open 01/18/251749 ? Mattress/surface type: Waffle mattress overlay Change surface area to: [place] [address] NOTES: Focused skin assessment per consult order. Nutrition BMI: There is no height or weight on file to calculate BMI. Current diet order: DIET TUBE FEEDING Elemental 1.2,; Feeding Method: Continuous; Initial Volume inmL/hour: 20; Goal Volume in mL/hour: 60; Feeding Advancement: 10 ml q6h; Water Flush: 150 ml q6h DIET GENERAL Effective Now DIET SUPPLEMENT GEN ADULT TID Pressure Injury Prevention Recommendations Turn / reposition at minimum of every 2 hours or more frequently as determined by patient condition When in chair reposition at minimum every 1 hour or more frequently as determined by patient Condition Keep skin clean and free of excess moisture Frequent perineal care for excess moisture and with any soiling Protect and float heels when in bed --as condition allows HOB at lowest level tolerated by patient and medical condition. Do not massage bony prominences. Prevent shearing by utilizing lift sheets and appropriate lift equipment based on patient needs. Skin Assessment every shift ? Wound/Dressing Recommendations Recommendations: Bilateral gluteals- -Apply Triad, nickel thick, to wound at least two times a day and prn. Reapply as needed to maintain thick layer. Remove top soiled layer, do not scrub off. Remove using perineal lotion cleanser spray. Obtain from SPD supply as needed.. Primary nurse notified of findings and recommendations. Skin team will not follow general wounds. Pressure injuries to be followed weekly unless otherwise specified. Will need to be re-consulted for new skin concerns. Total time spent: 25 min. Mimi Reagan RN Skin/Wound/Ostomy Please call hospital plating machine operator to have skin team paged with questions or needs. 82 * Erendira Reagan RN - 01/18/2025 6:13 PM CDT Images from the original note were not included. Ostomy Team Note Today's Date: 01/18/2025 Name: Tiffany Sexton Date of : 1950 Date/time of admission: 01/12/2025 11:21 AM Hospital day: LOS: 6 days Room: [address] [place] [address] Patient Seen For: Troubleshooting Supply Needs Site Evaluation Colostomy (Active) Stoma Appearance circle appearance;moist;pink;protruding above skin level 01/18/25 1800 Peristomal Skin inflamed;macerated;moist;painful 01/18/25 1800 Appliance 2-piece;leakage;changed;per protocol 01/18/25 1800 Accessories/Skin Care cleanse w/water only;skin barrier powder;skin sealant 01/18/25 1800 Stoma Function stool 01/18/25 1800 Output (mL) 200 mL 01/18/25 1626 Stool Color-Colostomy brown 01/18/25 1800 Stool Consistency-Colostomy watery 01/18/25 1800 Tolerance did not assist w/ appliance change;did not assist w/ stoma care 01/18/25 1800 Number of days: 133 Current products used Red Flat Coloplast two piece , skin protectant and powder for crusting technique Notes: Leaking issues, presently starting to lift off and leak slightly Changed appliance, skin to the lateral side of stoma is weeping so crusting technique was used to peristomal skin. Red convex was only appliance available, so it was placed , but will order Red flat appliance. Appliance is intact without issues at this time. Patient complained of discomfort when appliance was removed (even with adhesive remover) and skin was cleaned, so recommend adhesive removerfor next change. May contact skin/ostomy team for any additional needs. Time with patient: 10 minutes Mimi Reagan RN Please call hospital plating machine operator to have steam drier operator paged with questions or needs. 820 * Fadumo Hancock RN - 01/13/2025 2:17 PM CDTAssociated Order(s): IP CONSULT TO SUPPORTIVE/PALLIATIVE CARE [facility] Supportive & Palliative Care Consult Note PATIENT: Tiffany Sexton AGE: 74 y.o. CSN: [id number] Date of : 1950 Primary Care Physician: Non-Staff, Physician Admit Date: 01/12/2025 Consult Date: 01/13/2025 LOS: 1 Referring Physician: Dr. Paz Reason for consult: Goals of Care SUBJECTIVE: Upon my visit, Tiffany Sexton is A/OX1, pleasant and in no apparent distress. The patient on RA. Prior to admission to [facility] on 01/12/2025, Tiffany Sexton was living in [facility], [facility]. Patient has family support, including son Alex and Maame his granddaughter, who are currently not at bedside. We were asked to visit with Mrs. Sexton to establish goals of care for her. She has been hospitalized four times within the past 5 months requiring lengthy hospitalizations and rehabilitation. Chart review notes that the patient had a bowel perforation related to diverticulitis that resulted in a colostomy. Per family, the patient has had difficulty with appetite and caloric intake. Review of records note a 62 pound weight loss from 239 pounds on 08/30/2024 to 177 pounds on 01/13/2025. Due to reduced intake and likely inadequate calorie ingestion, NG was placed on admission in the ER for tubefeeding. During my visit, the patient has NG in place with Vital AF tube feedings per orders to assist with caloric intake. The patient has removed her NG tube X4. She has a sitter at the bedside. Per bedsidenurse report, there has been discussion about PEG placement if the patient does not adequately increase her intake to greater than 50% of food eaten per meal. Given that she has removed her NG tube multiple times, it is reasonable for us to undertake a goals of care conversation with the family to establish if that would be a wanted intervention by Mrs. Sexton. Per notes from [facility] to which she was admitted on 01/05/2025, the patient presented with AMS attributed to recurrent UTI. She has remained altered per chart review and my assessment. Unknown if there is an underlying neurological condition that has played a role in her deconditioned state. A phone call was placed to Alex, the patient's son, to discuss how we can best match care offered with the patient and families wishes. I was unable to get ahold of Alex. Will attempt to reach him again on Thursday when we round again. The patient complains of abdominal pain and rates pain at 7. Ostomy has good output. No complaints of nausea. [place] Symptom Assessment Scale (ESAS-r) Pain: 7 (01/13/25 1400) Tiredness: 0 - no abnormal tiredness (01/13/25 1400) Drowsiness: 0 - no drowsiness (01/13/25 1400) Nausea: 0 - no nausea (01/13/25 1400) Lack of Appetite: 5 (01/13/25 1400) Shortness of Breath: 0 - normal respiration with no distress (01/13/25 1400) Depression: 0 - no symptom(s) of depression (01/13/25 1400) Anxiety: 0 - no signs or symptoms of anxiety (01/13/25 1400) ASSESSMENT: PLAN: Moderate Protein-Calorie Malnutrition - NGT in place for Vital AF tube feedings to supplement caloric intake - COMMUNICATIONS TECHNOLOGIST aga noted - Regular diet started per attending - Awaiting good PO intake to d/c NGT Delirium?/Altered mental status - Reorient and redirect as needed - Monitor for any further change in orientation, alertness Supportive Care - continue goals of care discussion with the patient's son Alex - offer emotional support as needed - provide education regarding comfort care measures vs. aggressive treatment Goals of care discussion: Deferred Spiritual distress: Pastoral Care following Recommended Disposition: - TBD - CM to complete discharge planning Prior to this admission: The patient was living in SNF and required assistance with all ADLs. PPS 6 mo Prior: 40% Current level of function: PPS Currently: 30% Ambulation: mainly in bed Evidence of disease/ Activity: significant disease Self care: total care Oral intake: reduced Level of conscious: A/Ox 1 and alert Understanding of illness: Patient: unable to assess due to confusion Family: unable to reach the patient's sonAlex with a phone call to discuss. Advanced Directive/DPOA: None on file - the patient's son has reported he is DPOA Code status: Full Code OHDNR: no Goals of Care or ACP Completed: no - unable to reach the patient's son. Patient is not able to complete/participate in discussion due to confusion. Brief HPI Tiffany Sexton is a 74 y.o. female admitted 01/12/2025 with perforated diverticulitis s/p colostomy,recent history of C. Difficile status post deficid transferred from OSH for AMS, lethargy, C Diff colitis Patient reportedly has CT of the abdomen pelvis showing no obstruction. Patient reportedly had CT angiogram of the chest showing no pulmonary embolism Social history: Marital status: Support system: Patient's son Alex Iglesias, granddaughter Carleen Iglesias, granddaughter Maame Becerril. Social Drivers of Health Food Insecurity: No Food Insecurity (10/07/2024) Received from [facility] Hunger Vital Sign Within the past 12 months, you worried that your food would run out before you got the money to buymore.: Never true Within the past 12 months, the food you bought just didn't last and you didn't have money to get more.: Never true Transportation Needs: No Transportation Needs (10/21/2024) Received from [facility] Transportation Source Has lack of transportation kept you from medical appointments or from getting medications?: No Has lack of transportation kept you from meetings, work, or from getting things needed for daily living?: No Feeling Safe: Not At Risk (11/18/2024) Feeling Safe Patient has indicated abuse: : No Recent Concern: Feeling Safe - At Risk (10/06/2024) Received from [facility] Domestic Abuse Assessment Do you feel safe in your relationships at home?: Yes Physical Abuse: Denies [facility] Domestic Abuse - Type of Abuse: Not on file [facility] Domestic Abuse - Time Frame: Not on file [facility] - Signs and Symptoms: Not on file Verbal Abuse: Denies Possible abuse reported to:: Other (Comment) Housing Stability: Low Risk (10/07/2024) Received from [facility] Housing Stability Vital Sign In the last 12 months, was there a time when you were not able to pay the mortgage or rent on time?: No In the past 12 months, how many times have you moved where you were living?: 0 At any time in the past 12 months, were you homeless or living in a snf (including now)?: No Utility Needs: Not At Risk (10/07/2024) Received from [facility] Utilities Threatened with loss of utilities: No Medication Needs: Not on file HISTORY: Past Medical History: Diagnosis Date Clostridium difficile enterocolitis 11/17/2024 Hx 10/27/2024 Diverticulosis of colon GERD (gastroesophageal reflux disease) HTN (hypertension) Hyperlipidemia Wears glasses Past Surgical History: Procedure Laterality Date FOREIGN BODY REMOVAL 09/07/2024 FOREIGN BODY REMOVAL- REMOVAL OF ABTHERA performed by Moe Ro DO at [facility] MAIN OR CHOLECYSTECTOMY HX COLOSTOMY N/A 09/07/2024 COLOSTOMY performed by Moe Ro DO at [facility] MAIN OR ESOPHAGOGASTRODUODENOSCOPY N/A 11/19/2024 ESOPHAGOGASTRODUODENOSCOPY performed by Aniya Shell DO at [facility] MAIN OR EXAMINATION UNDER ANESTHESIA N/A 09/07/2024 EXAMINATION OF VAGINAL UNDER ANESTHESIA performed by Moe Ro DO at [facility] MAIN OR EXPLORATORY LAPAROTOMY N/A 09/06/2024 LAPAROTOMY EXPLORATORY performed by Moe Ro DO at [facility] MAIN OR HYSTERECTOMY HX KNEE REPLACEMENT right HX LOW ANTERIOR BOWEL RESECTION N/A 09/06/2024 LOW ANTERIOR COLON RESECTION performed by Moe Ro DO at [facility] MAIN OR ROTATOR CUFF REPAIR right HX SPINAL SURGERY lumbar INSERT MIDLINE IV 09/12/2024 INSERT MIDLINE IV 01/12/2025 ID BLDR IRRIGATION SMPL LAVAGE &/INSTLJ N/A 09/07/2024 BLADDER IRRIGATION AND/OR INSTILLATION performed by Moe Ro DO at [facility] MAIN OR ID COLECTOMY PARTIAL W/ANASTOMOSIS N/A 09/07/2024 ILEOCOLIC ANASTOMOSIS performed by Moe Ro DO at [facility] OR ID COLECTOMY PRTL W/RMVL TERMINAL ILEUM & ILEOCOLOS N/A 09/06/2024 ILEOCECECTOMY performed by Moe Ro DO at [facility] MAIN OR ID CYSTO W/INSERT URETERAL STENT Bilateral 09/06/2024 CYSTOURETHROSCOPY URETERAL STENT INSERTION performed by Leif Luther MD at [facility] MAIN OR ID ESOPHAGOGASTRODUODENOSCOPY TRANSORAL DIAGNOSTIC 07/16/2012 ESOPHAGOGASTRODUODENOSCOPY performed by Romero Beltran DO at [facility] ENDOSCOPY ID NEGATIVE PRESSURE WOUND THERAPY DME <= 50 SQ CM N/A 09/06/2024 PLACEMENT OF ABTHERA WOUND VAC performed by Moe Ro DO at [facility] OR ID NEGATIVE PRESSURE WOUND THERAPY DME <= 50 SQ CM 09/07/2024 WOUND CLOSURE VACUUM ASSISTED performed by Moe Ro DO at [facility] OR Family History Problem Relation Name Age of Onset Breast Cancer Mother Allergies Allergen Reactions Morphine Hives and Hallucination Current Facility-Administered Medications Medication Dose Route Frequency Provider Last Rate Last Admin HYDROmorphone (PF) (DILAUDID) injection 0.5 mg 0.5 mg IV every 3 hours PRN Basilia Kinsey MD 0.5 mg at 01/13/25 0432 scopolamine (TRANSDERM-SCOP) 1 mg/72 hr transdermal patch 1 Patch 1 Patch Transdermal every 72 hours Shirley Mccarthy MD 1 Patch at 01/13/25 1406 zinc OXIDE-cod liver oil (DESITIN) 40 % topical paste Topical see admin instructions Shirley Mccarthy MD metroNIDAZOLE (FLAGYL) IVPB 500 mg 500 mg IV every 8 hours Gardenia Berry MD 100 mL/hr at 01/13/25 1407 500 mg at 01/13/25 1407 artificial lubricant (GENTEAL PM) 94-3 % opthalmic ointment 0.25 Inch 0.25 Inch Both Eyes every 12 hours (2 times daily) Gardenia Berry MD 0.25 Inch at 01/13/25 1412 ipratropium-albuteroL (DUONEB) 0.5 mg-3 mg(2.5 mg base)/3 mL inhalation solution 3 mL 3 mL Inhalation resp, every 6 hours PRN Gardenia Brery MD sodium chloride flush injection 10 mL 10 mL IV every 12 hours (2 times daily) Gardenia Berry MD10 mL at 01/13/25 1130 sodium chloride flush injection 10 mL 10 mL IV see admin instructions Gardenia Berry MD sodium chloride 0.9 % flush bag 25 mL 25 mL IV see admin instructions Gardenia Berry MD dextrose 5 % in water 250 mL flush bag 25 mL 25 mL IV see admin instructions Gardenia Berry MD sodium chloride 0.9 % infusion IV continuous Gardenia Berry MD 50 mL/hr at 01/13/25 1405 New Bag at 01/13/25 1405 naloxone (NARCAN) 0.4 mg/mL injection 0.1 mg 0.1 mg IV see admin instructions Gardenia Berry MD ondansetron (ZOFRAN) 4 mg/2 mL injection 4 mg 4 mg IV every 6 hours PRN Gardenia Berry MD acetaminophen (TYLENOL) tablet 650 mg 650 mg NG Tube every 6 hours PRN Gardenia Berry MD 650 mgat 01/13/25 1121 saccharomyces boulardii (FLORASTOR) capsule 250 mg 250 mg NG Tube BID Gardenia Berry MD 250 mg at 01/13/25 1122 apixaban (ELIQUIS) tablet 5 mg 5 mg NG Tube BID Gardenia Berry MD 5 mg at 01/13/25 1122 fidaxomicin (DIFICID) tablet 200 mg 200 mg NG Tube BID Gardenia Berry MD 200 mg at 01/13/25 1123 sodium chloride flush injection 10 mL 10 mL IV BID Gardenia Berry MD 10 mL at 01/13/25 1123 [COMPLETED] gentamicin (GARAMYCIN) 400 mg in sodium chloride 0.9 % 100 mL EXTENDED INTERVAL IVPB 400 mg IV ONE time only Gardenia Berry MD Stopped at 01/12/25 2253 [COMPLETED] OLANZapine (ZyPREXA) 5 mg in sterile water 1 mL injection 5 mg IM ONE time only Basilia Kinsey MD 5 mg at 01/12/25 2153 [DISCONTINUED] fidaxomicin (DIFICID) tablet 200 mg 200 mg Oral BID Gardenia Berry MD 200 mg at 01/12/25 1335 [DISCONTINUED] apixaban (ELIQUIS) tablet 5 mg 5 mg Oral BID Gardenia Berry MD [DISCONTINUED] acetaminophen (TYLENOL) tablet 650 mg 650 mg Oral every 6 hours PRN Gardenia Berry MD [DISCONTINUED] cefTRIAXone (ROCEPHIN) 2,000 mg in sodium chloride 0.9% 50 mL IVPB (MBP) 2,000 mg IVevery 24 hours (daily) Gardenia Berry MD Stopped at 01/12/25 1638 [DISCONTINUED] saccharomyces boulardii (FLORASTOR) capsule 250 mg 250 mg Oral BID Gardenia Berry MD [DISCONTINUED] cefePIME (MAXIPIME) 1,000 mg in sodium chloride 0.9% 50 mL IVPB (MBP) 1,000 mg IV every 12 hours (2 times daily) Gardenia Berry MD Medications reviewed by me. OBJECTIVE: Data Review: CMP: Lab Results Component Value Date/Time NA 136 01/13/2025 01:40 PM K 3.0 (L) 01/13/2025 01:40 PM CL 104 01/13/2025 01:40 PM CO2 20 (L) 01/13/2025 01:40 PM CA 7.9 (L) 01/13/2025 01:40 PM BUN 3 (L) 01/13/2025 01:40 PM CREAT 0.45 (L) 01/13/2025 01:40 PM GLUCOSE 94 01/13/2025 01:40 PM TOTALPROTEIN 5.0 (L) 01/13/2025 01:40 PM ALBUMIN 3.5 01/13/2025 01:40 PM BILITOTAL 0.6 01/13/2025 01:40 PM ALKPHOS 62 01/13/2025 01:40 PM AST 31 01/13/2025 01:40 PM ALT 9 01/13/2025 01:40 PM ANIONGAP 12 01/13/2025 01:40 PM CBC: Lab Results Component Value Date/Time WBC 4.7 (L) 01/12/2025 01:30 PM HGB 10.8 (L) 01/12/2025 01:30 PM HGBPOC 9.4 (L) 09/08/2024 07:40 AM HCT 30.9 (L) 01/12/2025 01:30 PM HCTPOC 28 (L) 09/08/2024 07:40 AM PLT 273 01/12/2025 01:30 PM MCV 78.2 (L) 01/12/2025 01:30 PM ABG: Lab Results Component Value Date/Time [facility] No Charge 09/12/2024 04:45 AM Vital Signs: Temp (24hrs), Av.2 ??F (36.8 ??C), Min:97.7 ??F (36.5 ??C), Max:98.6 ??F (37 ??C) BP 125/73 (BP Location: Right arm, Patient Position (BP): Sitting) Pulse (!) 103 Temp 98.5 ??F (36.9 ??C) (Temporal) Resp 18 SpO2 96% Intake/Output Summary (Last 24 hours) at 01/13/2025 1437 Last data filed at 01/13/2025 1359 Gross per 24 hour Intake 100 ml Output 625 ml Net -525 ml Physical Exam: General appearance: awake and in no apparent distress Lungs: normal respiratory effort Heart: not assessed Abdomen: non-distended Extremities: moves all extremities equally Neurologic: alert and oriented to self. : Cohen catheter dependent to gravity Reviewed medical records, discussed my assessment with Lamberto Mccarthy*, bedside RN, and Herbert DHILLON. Thank you for this referral. Our team will follow up Thursday for further discussion with the patient's son Alex. Patient will be discussed in Palliative Care IDT meeting. Fadumo Hancock, RN, 01/13/2025 2:37 PM Herbert Palliative Care Registered Nurse * Wallace Chavez - 01/13/2025 2:14 PM CDTAssociated Order(s): IP CONSULT TO PASTORAL SERVICES Reason for Encounter: Spiritual care encounter with Tiffany in response to Spiritual Assessment 1. Patient Spiritual Issues Identified Summary of patient???s most significant issue(s) Grief Screening:: Other (see comments) (She wants to get better soon; staff is working on getting her more nutrition) Tiffany identifies with the Latter-Day?: AMISH laura/pentecostalism tradition. Tiffany is , has 6 children 2. Spiritual Interventions Explained the availability of chaplains 24/11. Provided supportive presence for Tiffany. Interventions provided:: Supportive listening;Provide affirmation/support DEALERSHIP GENERAL MANAGER'S ASSESSMENT OF PATIENT'S LEVEL OF DISTRESS: Mild 3. Outcomes of Care Patient/Family reports the availability of a strong support systemPt/family verbalized appreciation/gratitude for pastoral presence and support.Patient/Family denies any specific spiritual needs or concerns at this time. What emotional issues are you struggling with?: No emotional issues indicated Internal Support System?: Eternal life belief;Peace and serenity;Relationship with God/Higher Power;Prayer/meditation External Support System: Friends;Family;Relationship with God What brings/continues to bring meaning and purpose to your life?: Friends;Family;Relationship with God 4. Goals of Spiritual Care Precision Assembler Plan Spiritual Care will respond PRN to future requests for assistance. \ 5. Recommendations for Healthcare Team Please feel free to consult spiritual care provider/game programmer if/when emotional/spiritual distress arises. Wallace Andrews II, Spiritual Care [email or web address] * Keily Olson RN - 01/12/2025 4:25 PM CDTAssociated Order(s): IP CONSULT TO IV TEAM; IP CONSULT TO IV TEAM VASCULAR ACCESS CONSULT PATIENT NAME: Tiffany Sexton DATE OF : 1950 [facility]: [id number] DATE: 01/12/2025 Room: [address] [place] [address] Admit Date: 01/12/2025 Hospital day: LOS: 0 days INDICATION: IV access for new admission. EXCLUSIONS/CONSIDERATIONS: None LAST RECORDED TEMP: Temp: 97.8 ??F (36.6 ??C) (01/12/25 6735)] Assessment Allergies Allergen Reactions Morphine Hives and Hallucination Lab Results Component Value Date/Time CREAT 0.48 (L) 12/05/2024 01:28 AM BUN 7 (L) 12/05/2024 01:28 AM NA 133 (L) 12/05/2024 01:28 AM K 3.7 12/05/2024 01:28 AM KPOC 4.9 09/08/2024 07:40 AM CL 101 12/05/2024 01:28 AM CO2 22 12/05/2024 01:28 AM GFR >60 12/05/2024 01:28 AM Lab Results Component Value Date/Time WBC 4.7 (L) 01/12/2025 01:30 PM HGB 10.8 (L) 01/12/2025 01:30 PM HGBPOC 9.4 (L) 09/08/2024 07:40 AM HCT 30.9 (L) 01/12/2025 01:30 PM HCTPOC 28 (L) 09/08/2024 07:40 AM PLT 273 01/12/2025 01:30 PM MCV 78.2 (L) 01/12/2025 01:30 PM Lab Results Component Value Date/Time INR 1.3 (H) 09/07/2024 07:11 PM INR 1.0 09/06/2024 05:51 PM INR 1.0 08/30/2024 08:40 AM PT 17.2 (H) 09/07/2024 07:11 PM PT 14.2 09/06/2024 05:51 PM PT 13.3 08/30/2024 08:40 AM Past Medical History: Diagnosis Date Clostridium difficile enterocolitis 11/17/2024 Hx 10/27/2024 Diverticulosis of colon GERD (gastroesophageal reflux disease) HTN (hypertension) Hyperlipidemia Wears glasses Past Surgical History: Procedure Laterality Date FOREIGN BODY REMOVAL 09/07/2024 FOREIGN BODY REMOVAL- REMOVAL OF ABTHERA performed by Moe Ro DO at [facility] MAIN OR CHOLECYSTECTOMY HX COLOSTOMY N/A 09/07/2024 COLOSTOMY performed by Moe Ro DO at [facility] MAIN OR HX ESOPHAGOGASTRODUODENOSCOPY N/A 11/19/2024 ESOPHAGOGASTRODUODENOSCOPY performed by Aniya Shell DO at [facility] MAIN OR HX EXAMINATION UNDER ANESTHESIA N/A 09/07/2024 EXAMINATION OF VAGINAL UNDER ANESTHESIA performed by Moe Ro DO at [facility] OR EXPLORATORY LAPAROTOMY N/A 09/06/2024 LAPAROTOMY EXPLORATORY performed by Moe Ro DO at [facility] OR HYSTERECTOMY HX KNEE REPLACEMENT right HX LOW ANTERIOR BOWEL RESECTION N/A 09/06/2024 LOW ANTERIOR COLON RESECTION performed by Moe Ro DO at [facility] OR ROTATOR CUFF REPAIR right HX SPINAL SURGERY lumbar INSERT MIDLINE IV 09/12/2024 ID BLDR IRRIGATION SMPL LAVAGE &/INSTLJ N/A 09/07/2024 BLADDER IRRIGATION AND/OR INSTILLATION performed by Moe Ro DO at [facility] OR ID COLECTOMY PARTIAL W/ANASTOMOSIS N/A 09/07/2024 ILEOCOLIC ANASTOMOSIS performed by Moe Ro DO at [facility] OR ID COLECTOMY PRTL W/RMVL TERMINAL ILEUM & ILEOCOLOS N/A 09/06/2024 ILEOCECECTOMY performed by Moe Ro DO at [facility] OR ID CYSTO W/INSERT URETERAL STENT Bilateral 09/06/2024 CYSTOURETHROSCOPY URETERAL STENT INSERTION performed by Leif Luther MD at [facility] OR ID ESOPHAGOGASTRODUODENOSCOPY TRANSORAL DIAGNOSTIC 07/16/2012 ESOPHAGOGASTRODUODENOSCOPY performed by Romero Beltran DO at [facility] ENDOSCOPY ID NEGATIVE PRESSURE WOUND THERAPY DME <= 50 SQ CM N/A 09/06/2024 PLACEMENT OF ABTHERA WOUND VAC performed by Moe Ro DO at [facility] OR ID NEGATIVE PRESSURE WOUND THERAPY DME <= 50 SQ CM 09/07/2024 WOUND CLOSURE VACUUM ASSISTED performed by Moe Ro DO at [facility] OR Current Facility-Administered Medications: fidaxomicin (DIFICID) tablet 200 mg, 200 mg, Oral, BID, Gardenia Berry MD, 200 mg at 01/12/25 1335 metroNIDAZOLE (FLAGYL) IVPB 500 mg, 500 mg, IV, every 8 hours, Gardenia Berry MD, Stopped at 01/12/25 1435 [START ON 01/13/2025] apixaban (ELIQUIS) tablet 5 mg, 5 mg, Oral, BID, Gardenia Berry MD artificial lubricant (GENTEAL PM) 94-3 % opthalmic ointment 0.25 Inch, 0.25 Inch, Both Eyes, every 12 hours (2 times daily), Gardenia Berry MD ipratropium-albuteroL (DUONEB) 0.5 mg-3 mg(2.5 mg base)/3 mL inhalation solution 3 mL, 3 mL, Inhalation, resp, every 6 hours PRN, Gardenia Berry MD sodium chloride flush injection 10 mL, 10 mL, IV, every 12 hours (2 times daily), Gardenia Berry MD sodium chloride flush injection 10 mL, 10 mL, IV, see admin instructions, Gardenia Berry MD sodium chloride 0.9 % flush bag 25 mL, 25 mL, IV, see admin instructions, Gardenia Berry MD dextrose 5 % in water 250 mL flush bag 25 mL, 25 mL, IV, see admin instructions, Gardenia Berry MD sodium chloride 0.9 % infusion, , IV, continuous, Gardenia Berry MD acetaminophen (TYLENOL) tablet 650 mg, 650 mg, Oral, every 6 hours PRN, Gardenia Berry MD naloxone (NARCAN) 0.4 mg/mL injection 0.1 mg, 0.1 mg, IV, see admin instructions, Gardenia Berry MD ondansetron (ZOFRAN) 4 mg/2 mL injection 4 mg, 4 mg, IV, every 6 hours PRN, Gardenia Berry MD saccharomyces boulardii (FLORASTOR) capsule 250 mg, 250 mg, Oral, BID, Gardenia Berry MD cefePIME (MAXIPIME) 1,000 mg in sodium chloride 0.9% 50 mL IVPB (MBP), 1,000 mg, IV, every 12 hours(2 times daily), Gardenia Berry MD [DISCONTINUED] cefTRIAXone (ROCEPHIN) 2,000 mg in sodium chloride 0.9% 50 mL IVPB (MBP), 2,000 mg, IV, every 24 hours (daily), Gardenia Berry MD, Last Rate: 118 mL/hr at 01/12/25 1608, 2,000 mg at 01/12/25 1608 PLAN Will assess for vascular access. Keily Olson, RN * Nevin Saba, RD - 01/12/2025 1:12 PM CDTAssociated Order(s): IP CONSULT TO NUTRITION SERVICES Reason For Nutrition Assessment: Consult, Nutrition Diagnosis Malnutrition Nutrition Diagnosis: Moderate protein-calorie malnutrition (01/12/251300) In the context of: Acute Illness/Injury and Chronic Illness Problem: Malnutrition (01/12/251300) Etiology: Inadequate protein, energy, nutrient intake;Acute illness;Decreased appetite (01/12/251300) Signs/Symptoms: Fat loss;Muscle wasting;Intake history/diet recall (01/12/251300) Malnutrition Impact: Reduced oral intake, Delayed recovery, Increased muscle weakness and fall risk, Decreased ability to perform activities, Increased readmission risk, Increased hospitalization length, and Increased dysphagia Interventions/Recommendations: Recommend Vital AF, start at 20 ml/hr, advance 10 ml/hr Q 6 hrs to goal rate 60 ml/hr with 150 ml water flush q6h Provides 1728 kcal, 108 g protein, 1768 ml water daily (TF and Flush) Nutrition Interventions: Tube feeding (01/12/251300) Goals: No N/V, TF to meet assessed needs, and Tolerate nutrition source Monitoring/Evaluation: TF tolerance, weight trends, labs Nutrition Discharge Plan: TBD See below for full assessment Assessment 74 y.o.female admitted with C. difficile colitis. PMH of GERD, camargo esophagus, recurrent diverticulitis of colon, acute respirator failure and protein-calorie malnutrition. Food and Nutrition Related History: Pt reports poor appetite and po intake over the past few weeks.C/O nausea and vomiting. Unable to assess if pt has any food allergies as pt was confused. Weight changes: Unable to assess any weight changes. Please obtain a recent weight. Subjective Global Assessment: Weight: During the past 2 weeks the patient's weight has: Not Changed (01/12/251300) Food Intake: Compared to normal intake, over the past month the patient's intake has been: Less than usual (01/12/251300) Less than usual: Normal food but less than normal amounts (01/12/251300) Symptoms: Patient reports the following problems that have kept them from eating enough during the past 2 weeks: No appetite, did not feel like eating;Vomiting;Diarrhea;Nausea (01/12/251300) Activities & Function: Over the past month the patient generally rates their activity as: : Lowenergy but in bed or chair less than half the day (01/12/251300) Total score = SGA Score : 14 (01/12/251300) Nutrition Focused Exam Physical Findings- Summary: Malnutrition Nutrition Diagnosis: Moderate protein-calorie malnutrition (01/12/251300) Orbital: Flattened fat pads but not depressed (mild) (01/12/251300) Facial cheeks (buccal pads): Slightly depressed inward (mild) (01/12/251300) Biceps and triceps: Minor but noticeable thinning of fat tissue fold (mild) (01/12/251300) Ribs - lower back, mid axillary line: Ribs not apparent, but mild appearance of iliac crest (mild) (01/12/251300) Subcutaneous Fat Loss Assessment: Mild fat loss (01/12/251300) Temporal: Slight depression or shadowing (mild) (01/12/251300) Clavicle: Slight protrusion (mild) (01/12/251300) Shoulder (deltoid muscle): Shoulders rounded but acromion process may protrude slightly (mild) (01/12/251300) Scapula: Unable to assess (01/12/251300) Interosseous: Thinning, flattened muscle (mild) (01/12/251300) Thigh (quadriceps muscle): Flattened thigh appearance but no depressions (mild) (01/12/251300) Knee: Slight appearance of knee bone, muscle appears flat (mild) (01/12/251300) Calf (gastrocnemius muscle): Slight flattening to muscle but remains firm (mild) (01/12/251300) Muscle Wasting Assessment: Mild (01/12/251300) Edema: Normal contour with a barely perceptible pit (no findings) (01/12/251300) Hand Secondary English Teacher: 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 Admission: Current: Wt Readings from Last 8 Encounters: 11/22/24 80.3 kg (177 lb 0.5 oz) 11/09/24 80.3 kg (177 lb) 11/04/24 82.6 kg (182 lb) 10/26/24 81.6 kg (180 lb) 09/17/24 106.5 kg (234 lb 12.6 oz) 08/30/24 89.4 kg (197 lb 3.2 oz) Labs No results for input(s): GLUCOSE , BUN , CREAT , GFR , NA , K , CO2 , ANIONGAP , CA , MG , PO4 , ALBUMIN , ALKPHOS , ALT , AST , BILITOTAL , TRIGLYCERIDE , AMYLASE , LIPASE , HGBA1C , [id number] in the last 72 hours. Invalid input(s): CI , CALONIZED Lab Results Component Value Date/Time PO4 2.9 12/05/2024 01:28 AM MG 2.0 12/05/2024 01:28 AM Current Diet and Intake: No diet orders on file , , Skin: Alverto Score: 16 (01/12/25 113) Gastrointestinal: Last Bowel Movement (mm/dd/yyyy): 01/12/25 (01/12/25 113) Stool Consistency - Reference [place] Stool Chart: formed - (type 1-4);soft - (type 4/5) (01/12/251132) Access: Pending placement []NG / OG []NJT, postpyloric tube []PEG / G-tube []PEJ / J-tube Verified by: []Gastro-Jejunostomy tube Date: Allergies: Allergies Allergen Reactions Morphine Hives and Hallucination Past Medical History: Diagnosis Date Clostridium difficile enterocolitis 11/17/2024 Hx 10/27/2024 Diverticulosis of colon GERD (gastroesophageal reflux disease) HTN (hypertension) Hyperlipidemia Wears glasses Time spent:Consultation Time (mins): 35 mins (01/12/25 1301) documented in this encounter OR Notes * Operative Report - Miko Shay MD - 01/24/2025 11:30 AM CDT Post Procedure Vascular/Interventional Radiology Note Pre-Radiology Procedure Diagnosis: Poor appetite, malnutrition Technical Procedure: Gastrostomy tube placement. Specimens removed: N/A Estimated Blood Loss: Minimal Findings: 16 Fr G-tube ending in the gastric body. Medications: Conscious sedation was performed. Please see separate nursing documentation for dosages. Post-Radiology Procedure Diagnosis: Same Miko Shay MD 01/24/25 11:31 AM * [facility]-OP - Miko Shay MD - 01/24/2025 10:46 AM CDT Pre-Sedation Conscious(Moderate) Record Procedure scheduled: Gastrostomy tube placement. Procedure appropriate history and physical on chart: Y Risks, benefits and options of conscious/moderate sedation discussed with patient (and family when appropriate), previous anesthesia experiences reviewed, informed consent obtained: Y NPO status per policy: Y Airway assessment: Short/fat neck: N Short chin: N Protruding upper teeth: N Neck full ROM: Y Mouth opens>2 fingers: Y History of any airway problems (sleep apnea, appliance/equipment used, airway obstruction, other iedrugs, tobacco: N Allergies Allergies Allergen Reactions Morphine Hives and Hallucination ASA Classification: ASA 3 - Patient with moderate systemic disease with functional limitations Physical Exam: Lungs: clear to auscultation bilaterally Heart: normal rate and regular rhythm Abdomen: soft, non-tender Mental status: alert and oriented X 3. Pre-Induction Reassessment: No change since pre-sedation assessment. Changes are as follows: Not Applicable The procedure including the purpose and benefits, were discussed in detail with the patient and/or healthcare decision maker. The risks were all discussed in detail to include, but not limited to, bleeding , infection, injury to adjacent structures, inability to complete the procedure, and need forfurther intervention. All Questions were answered, and the decision was made to proceed with the procedure. Miko Shay MD 01/24/25 10:47 AM documented in this encounter Miscellaneous Notes * Care Plan - Giselle Valentine, Exterior Designer - 01/31/2025 11:38 AM CDT [facility] - Therapy Services 3K Ph. Acute Occupational Therapy Treatment 01/31/2025 Room: [address] [place] [address] Name: Tiffany Sexton Age: 74 y.o. Patient Class: Inpatient Date of : 1950 Insurance: Payor: MEDICARE / Plan: MEDICARE PART A AND B / Product Type: Medicare / Prior to OT session thorough chart review completed, including prior OT notes as applicable. Consent to treat provided by patient and nurse Date of admission: 01/12/2025 SUBJECTIVE Patient Statements Information provided by: patient Patient/family comments: Pt lying in bed upon arrival, agreeable to therapy session. Pt was seen for split session this date d/t feeling nauseated and requesting to rest for a while between activities. Pt demonstrated confusion during second half of session. When asked city and state, pt responded [facility] . For month and year, patient responded [place] . Pt was given several clues as to the month, and even asked to look at board for orientation, but was still unable to answer correctly. Pain: Refer to flowsheet for documentation of pain and interventions. OBJECTIVE Cognition Level of alertness: alert and confused Orientation: oriented to person and pt unable to state location, month or year. Command following: fair slow processing Safety awareness: poor; limited by impulsivity, slow processing, decreased problem solving, decreased insight into deficits, and decreased attention Memory: impaired STM and impaired LTM Occupational Performance Activities of Daily Living Feeding: supervision for setup Grooming: supervision standing at sink set up of supplies and VC for sequencing to wash hands and face. Lower extremity dressing: dependent assistance seated EOB to don/adjust socks, pt attempted figure 4 position and bending forward, but states, I can't it hurts my stomach too much. Functional Mobility All mobility completed with gait belt, non-skid socks, and walker Bed mobility: supervision supine > sit EOB with use of bed rail and HOB slightly elevated. Sit to stand: minimal assistance from EOB and chair Functional ambulation: minimal assistance x ~20 feet set up of 2WW and VC for safety, navigation and proper use of device to reduce risk for fall. Pt noted to pick walker up when turning. Sitting balance: supervision for static tasks and dynamic tasks EOB ~8 minutes Standing balance: minimal assistance for dynamic tasks and supervision for static standing at sink. Patient required verbal and visual cues for attention to task, safety awareness while performing functional ambulation around room, safety due to impulsivity, sequencing, initiation of task, and problem solving. [facility] Daily Activity How much help from another person does the patient currently need? Score 1. Putting on and taking off regular lower body clothing? 1 - Total assist or cannot do at all 2. Bathing (including washing, rinsing, drying)? 2 - A lot (max to mod assist) 3. Toileting, which includes using toilet, bedpan or urinal? 1 - Total assist or cannot do at all 4. Putting on and taking off regular upper body clothing? 3 - A little (supervision to min assist) 5. Taking care of personal grooming such as brushing teeth? 3 - A little (supervision to min assist) 6. Eating meals? 3 - A little (supervision to min assist) Total score 13/24 0-19 indicates likely facility discharge 19-24 indicates likely community discharge *Scores determined based on patient report, observation or professional expertise* Additional Interventions No additional treatment provided during this session Education provided to patient regarding treatment plan, session goals, and safety awareness with functional transfers and OOB ADL tasks. Education response: verbalized understanding and would benefit from reinforcement Vitals Current O2 requirement: room air Vital signs stable throughout. Additional vitals comments: Patient resting comfortably. Precautions Patient precautions: fall Patient bracing/orthotics: none Weight bearing: no restrictions ASSESSMENT & PLAN Assessment Patient is progressing towards care plan goals. Patient is currently functioning below her prior level of function. Plan Continue with plan of care as previously established until patient goals are met or the patient discharges as decreased activity tolerance, decreased UE strength, decreased functional standing balance, high fall risk, decreased functional cognition, decreased safety awareness, and pain continue to limit patient's occupational performance. Anticipate ongoing OT treatment sessions with specific focus on OOB ADL tasks, standing balance andsafety awareness for fall prevention. For ongoing assessment of current treatment plan: chart, goals and treatment plan reviewed. Goals, treatment plan and plan of care frequency remain appropriate. Recommendations Based on OT assessment of patient's ability to complete self-care tasks and their AM-PAC Daily Activity Score, anticipated discharge disposition: penitentiary facility (01/31/251632) Rationale: Patient needs daily (weekday) skilled OT services. Anticipate tolerance is limited for intensive or adapted intensive rehab program.. * The final discharge location is determined through physician, case management, and patient/caregiver input along with insurance authorization of skilledservices when appropriate OT recommended DME and AE upon discharge: To be determined (01/31/251632) No new additional adaptive equipment necessary (01/31/251632) Nursing Staff Mobility Recommendations Recommended daily activity during admission: toileting in bathroom, up to chair for meals, and assist x 1 Disposition At start of session, patient found lying in bed At end of session, patient left seated in chair, call light in reach, phone in reach, chair alarm activated, and staff notified of patient location/events of session Further treatment notes and therapeutic goals can be found in Care Plan Notes. If the patient discharges from facility before another therapy visit, this shall serve as therapy discharge summary. Thank you for this referral, Giselle Valentine, Exterior Designer * Care Plan - Natali Negrete RN - 01/31/2025 8:30 AM CDT Problem: Discharge Planning Goal: Identify discharge needs upon admission and through discharge Description: Sales Marketing Discharge Planning Expected Discharge Date Feb 02, 2025 Plan Discharge To: Home Health Services (01/31/25 0830) Plan Discharge To - Alternate: Home Health Services (01/31/25829) Family/Caregiver Assist Does the patient have family and/or a caregiver that is willing, able and available to assist if needed?: Yes (01/31/25829) Name and Relation: granddamerrill Isabel (01/31/25829) Spoke with son/DPREGIS Johnson this morning, via phone, before he went to bed. He is agreeable with homehealth as he reports they cannot afford the co-pays for SNF/Swing Bed. Received HHC choices and sent referrals. Alex reports he is trying to get a hold of the [facility] when they open at 10am (our time) for the secondary insurance but aware patient is able to DC and is agreeable with picking her up once HHC arranged. Updated , FABIAN, Bedside Nurse and CM Fan Engine Engineer Lorena. Addendum @ 929, updated granddaughter Maame via phone, she is agreeable with DC plan. Referrals Status: Facility Referrals - Pending Home Health/Hospice - Pending Follow-up on Referrals Sent: Yes (01/31/25829) Preferred Pharmacy: [facility] - [place], [place] - [address] [facility] - [place], [place] - [address] Patient / Family Communications: Patient/Family Communications: Plan Discharge To Update (01/31/25829) Discharge Plan Agreed Upon: Family member (01/31/25829) Resources Provided: Resource List Given: Home health agencies (01/31/25829) Resource List Given To: Family member (01/31/25829) Information Given Concerning: Criteria for home health (01/31/25829) Transportation Plan: Has discharge transport been arranged?: No (01/31/25829) Follow Up Appointments Scheduled Natali Negrete RN Outcome: Progressing * Care Plan - Natali Negrete RN - 01/30/2025 2:54 PM CDT Problem: Discharge Planning Goal: Identify discharge needs upon admission and through discharge Description: Sales Marketing Discharge Planning Expected Discharge Date Feb 02, 2025 Plan Discharge To: Hospital-based Medicare approved swing bed;Intermediate Facility (01/30/251453) Plan Discharge To - Alternate: Home Health Services (01/30/251453) Received Denial from [facility] as facility feels co-pay is too big of a risk as patient's family has not been very forthcoming in discussing financial responsibility. Granddamerrill Haro bring in a copy of [employer] paperwork to the facility. The subscriber ID is [id number]. However facility reports it is only a Part D and will not cover. Per CM steam train driver: Patient should be able to pay for SNF co pay days if needed. Per MEP, she receives $3300.00 per month between SS and a Pension. She has $4000.00 in checking. Has a vehicle and life insurance. Requested SWB liaison to review for possible SWB placement at [facility] in [place], [place]. They are reviewing and will advise CM of co-pay if accepted. Left Voice Mail for Son/DPREGIS Johnson, provided return contact information. Spoke with granddamerrill Isabel, advised of [facility] and [facility] reviewingfor SWB. Advised there will still be co-pays and advised her to talk to her uncle about paying those for patient to be able to receive the recommended care. Provided HHC choice list again and advisedthat if they are unable to provide the co-pays, patient can DC home with HHC and family assistance.Granddaughter reports her uncle emailed the [email or web address] to get a copy of the Insurance card. Thanked Maame for all her assistance and strongly encouraged her to have her Uncle call CM back, and toeither pay the co-pay or pick HHC for patient to DC home as patient medically ready per MD and awaiting DC disposition only. Maame expresses understanding and reports she will talk to her uncle. Case has been escalated to CM Cash Reconciliation Specialist (Luzma) and CM Fan Engine Engineer (Lorena). Level I Code: [id number] (previous from 12/08-01/04 SNF Admit) Updated MD, CN, bedside nurse and CM Fan Engine Engineer Referrals Status: Facility Referrals - Pending Follow-up on Referrals Sent: Yes (01/30/251453) Preferred Pharmacy: [facility] - [place], [place] - [address] [facility] - [place], [place] - [address] Patient / Family Communications: Patient/Family Communications: Plan Discharge To Update (01/30/251453) Discharge Plan Agreed Upon: Family member (01/30/251453) Resources Provided: Resource List Given: Home health agencies;Care facilities (01/30/251453) Resource List Given To: Family member (01/30/251453) Information Given Concerning: Medicare benefits;Other (Comment);Criteria for (skilled) nursing facility (co-pays) (01/30/251453) Transportation Plan: Has discharge transport been arranged?: No (01/30/251453) Follow Up Appointments Scheduled Natali Negrete RN Outcome: Progressing * Care Plan - Morgan Cotter Electrode Turner And Finisher - 01/30/2025 1:42 PM CDT [facility] - Therapy Services 3K Ph. Acute Physical Therapy Treatment 01/30/2025 Room: [address] [place] [address] Name: Tiffany Sexton Age: 74 y.o. Date of : 1950 Insurance: Payor: MEDICARE / Plan: MEDICARE PART A AND B / Product Type: Medicare / Subjective Information Comments: pt agrees to PT session Pain: Refer to Doc. Flowsheet for documented pain levels. Vitals Patient on room air Vital signs stable throughout session Functional Mobility/Treatment Functional Mobility: Sit to stand: moderate assistance from chair Gait Training: declined d/t abdominal discomfort Patient required verbal cues proper posture, use of UE's in transfers, and foot sequencing Functional exercise: Functional exercise: sit to stand x 1, with moderate assistance verbal cues required to perform exercises correctly Therapeutic exercises: AROM: 1 set/s of 8-10 repetitions of the following exercises to improve circulation, functional mobility, & strength: sitting: ankle pumps, hip abduction, hip adduction, and long arc quads [facility] AM-PAC Basic Mobility How much help from another person does the patient currently need? Score 1. Turning from your back to your side while in a flat bed without using bedrails? 2 - A lot (max to mod assist) 2. Moving from lying on your back to sitting on the side of a flat bed without using bedrails? 2 - A lot (max to mod assist) 3. Moving to and from a bed to a chair (including a wheelchair)? 2 - A lot (max to mod assist) 4. Standing up from a chair using your arms (e.g., wheelchair, or bedside chair)? 2 - A lot (max tomod assist) 5. Walking in hospital room? 2 - A lot (max to mod assist) 6. Climbing 3-5 steps with a railing? 1 - Total assist or cannot do at all Total score 03/27 0-16 - indicates likely facility discharge 17-24 indicates likely community discharge * scores determined based on patient report, observation or professional expertise Assessment and Plan Functional Progress: Patient is progressing towards the goal(s) for functional strength and mobility. Patient does require skilled PT. Specific focus for next treatment session: gait/LE strengthening. For ongoing assessment of current treatment plan: chart, goals and treatment plan reviewed. Goals, treatment plan and plan of care frequency remain appropriate. Continue with plan of care as previously established until goals met or patient discharges from facility Recommendations Based on PT assessment of and/or progress with physical function, [facility] Basic Mobility score, potential for improvement, available home support, participation in therapeutic intervention, tolerance for activity, and safety , anticipated discharge disposition: penitentiary facility (01/30/25 1342). Pt needs daily (weekday) skilled PT services. Anticipate tolerance for an intensive program may be limited and extended recovery time needed. * The final discharge location is determined through physician, case management, and patient/caregiver input along with insurance authorization of skilled services when appropriate PT Recommended DME: To be determined (01/30/25 1342). Daily activity recommendations: Up with 1 assist Precautions Patient Precautions: Fall Risk Bracing/Orthotics: none Weight Bearing: No Restrictions Education/Training Provided Additional education provided: discharge planning, home exercise program, rehabilitation principles, and safety Learner, method of education, and response to learning listed in Education tab in Epic. Disposition At start of session, patient found sitting in chair At end of session, patient left sitting in chair with phone and call light in reach Consent to treatment given by: Patient and Nurse Prior to PT session a thorough chart review was completed, including prior therapy notes, as applicable. Further treatment notes and therapeutic goals can be found in Care Plan Notes. If the patient discharges from the facility before another therapy visit, this shall serve as the therapy discharge summary. Thank you for this referral, Morgan Cotter, Electrode Turner And Finisher * Care Plan - Licha Weaver GN - 01/30/2025 5:27 AM CDT Shift Summary Moisture barrier cream was applied to the bilateral gluteal area to address skin integrity concerns. No pain or discomfort was reported, and pain interventions were not required. Fall risk was reviewed and safety checks were completed, with no falls or injuries documented. Vitals and glucose levels were monitored and remained stable. Overall, comfort was maintained and skin integrity interventions were provided during the shift. Verbalizes/displays acceptable comfort level or baseline comfort level: No pain or discomfort was reported throughout the shift, though abdominal discomfort was noted; pain interventions were not required. Infection Risk/Actual: Infection prevention, control, or resolution by discharge: Temperature and pulse remained stable and within normal range, and no new symptoms were documented. Safety/Fall: Absence of fall, injury, harm during hospitalization: Fall risk was reviewed and safety checks were completed; no falls or injuries occurred. Maintain skin integrity and/or promote wound healing by discharge: Moisture barrier cream was applied to bilateral gluteal area, which remained reddened and macerated with blanchable erythema and no drainage; left lower quadrant wound was pink with excoriation. * Care Plan - Luzma Farrell RN - 01/29/2025 1:33 PM CDT Problem: Discharge Planning Goal: Identify discharge needs upon admission and through discharge Description: Outcome: Progressing Sales Marketing Discharge Planning Expected Discharge Date Jan 31, 2025 Plan Discharge To: Intermediate Facility (01/29/25 1300) Plan Discharge To - Alternate: Home Health Services (01/29/25 1300) CM left a message for the patient's son Alex. CM contacted patient's granddaughter Maame. She has the patient's secondary insurance information. Maame states she has the [employer] paperwork and is going to take it to the facility. The subscriber ID is [id number]. Patient is in her co pay days at SNF. If she is unable to pay her co pay or does not have secondary insurance then she will need to dc home with [facility] if possible. She has been screened by MEP and the patient is over resourced for Medicaid. She will need to increase activity and be seen by therapy more frequently. Will need to verify [facility] insurance. Patient should be able to pay for SNF co pay days if needed. Per MEP, she receives $3300.00 per month between SS and a Pension. She has $4000.00 in checking. Has a vehicle and life insurance. Will follow up with the patient, family and SNF. Referrals Status: Facility Referrals - Accepted and Selected Destination - Admitted Since 01/12/2025 Service Provider Services Address Phone Fax Patient Preferred [facility] [address] [facility],[address] [place] [phone] -- Internal Comment last updated by Natali Negrete RN 01/19/2025 1054 Patient in Co-pay SNF days Follow-up on Referrals Sent: Yes (01/28/25 1000) Preferred Pharmacy: [facility] - [facility] [address] [facility] [facility] [address] [place] [address] [address] Patient / Family Communications: Patient/Family Communications: Plan Discharge To Update (01/29/25 1300) Discharge Plan Agreed Upon: Family member;Patient (01/29/25 1300) Resources Provided: Resource List Given: Care facilities;Home health agencies (01/26/25 1121) Resource List Given To: Patient;Family member (01/26/25 1121) Information Given Concerning: Medicare benefits (01/29/25 1300) Transportation Plan: Has discharge transport been arranged?: No (01/28/25 1000) Follow Up Appointments Scheduled Luzma Farrell RN * Care Plan - Licha Weaver GN - 01/29/2025 5:32 AM CDT Shift Summary CHG bathing and perineal care were provided to support infection prevention and comfort. Safety checks and fall risk review were completed, with seizure and aspiration precautions maintained throughout the shift. Moisture barrier cream was applied and air bed utilized to support skin integrity and wound healing, with no drainage observed from the bilateral gluteal wound. Comfort interventions such as bed pad, gown, and linen changes were performed, and no pain or discomfort was reported. Overall, comfort and safety were maintained, and wound care interventions were continued during theshift. Verbalizes/displays acceptable comfort level or baseline comfort level: No pain or discomfort was reported and sleep was observed during the shift, with comfort interventions such as bed pad, gown, and linen changes provided. Infection Risk/Actual: Infection prevention, control, or resolution by discharge: CHG bathing and perineal cleansing were performed, and antimicrobial dressing and patch/disc were maintained on the midline catheter; no drainage was noted from the bilateral gluteal wound. Safety/Fall: Absence of fall, injury, harm during hospitalization: Safety checks were completed andfall risk was reviewed, with seizure and aspiration precautions in place throughout the shift. Maintain skin integrity and/or promote wound healing by discharge: Moisture barrier cream was applied to the bilateral gluteal wound, which remained reddened but without drainage, and the left lower quadrant wound was pink with excoriated periwound area; air bed and frequent repositioning were utilized. * Care Plan - Luzma Farrell RN - 01/28/2025 10:27 AM CDT Problem: Discharge Planning Goal: Identify discharge needs upon admission and through discharge Description: Outcome: Progressing Sales Marketing Discharge Planning Expected Discharge Date Jan 30, 2025 Plan Discharge To: Intermediate Facility (01/28/25 1000) Plan Discharge To - Alternate: Home Health Services (01/28/25 1000) Met with the patient. She is A&O X4. Discussed patient's insurance. She states she only has Medicare and does not have a supplemental insurance. CM tried to contact the patient's son, no answer. CM was able to contact her granddaughter Maame, she states she has the secondary insurance information and will take it to [facility] today. Patient has been improving with therapy. She lives wit h her family and they work during the day. She has a walker, SC and grab bars in the home. Patient will be in her co pay days for SNF. Will discuss SNF vs HHC with the family. Patient has a colostomyand PEG tube with tube feedings. She is also on a general diet with supplements. Patient may need to continue to increase activity and work with therapy to be able to return home with C if the family cannot afford the SNF co pay. Will continue to try and reach the patient's son. Referrals Status: Facility Referrals - Accepted and Selected Destination - Admitted Since 01/12/2025 Service Provider Services Address Phone Fax Patient Preferred [facility] [address] [facility],[address] [address] -- Internal Comment last updated by Natali Negrete RN 01/19/2025 1054 Patient in Co-pay SNF days Follow-up on Referrals Sent: Yes (01/28/25 1000) Preferred Pharmacy: [facility] - [place], [place] - [address] [facility] [facility] [facility] [address] [place] [address] Patient / Family Communications: Patient/Family Communications: Plan Discharge To Update (01/27/25 1445) Discharge Plan Agreed Upon: Family member (01/27/25 1445) Resources Provided: Resource List Given: Care facilities;Home health agencies (01/26/25 1121) Resource List Given To: Patient;Family member (01/26/25 1121) Information Given Concerning: Criteria for home health;Criteria for (skilled) nursing facility (01/26/25 1121) Transportation Plan: Has discharge transport been arranged?: No (01/28/25 1000) Follow Up Appointments Scheduled Luzma Farrell RN * Care Plan - Morgan Cotter, Electrode Turner And Finisher - 01/27/2025 2:58 PM CDT [facility] - Therapy Services Ph. Acute Physical Therapy Treatment 01/27/2025 Room: [address] [place] [address] Name: Tiffany Sexton Age: 74 y.o. Date of : 1950 Insurance: Payor: MEDICARE / Plan: MEDICARE PART A AND B / Product Type: Medicare / Subjective Information Comments: pt agrees to PT session with encouragement. C/o not feeling well overall today Pain: Refer to Doc. Flowsheet for documented pain levels. Vitals Patient on room air Vital signs stable throughout session Functional Mobility/Treatment Functional Mobility: Scooting: minimal assistance Supine to sit: minimal assistance Sit to stand: moderate assistance Bed to chair: moderate assistance Gait Trainin feet with rolling walker. moderate assistance for steering walker and maintaining upright posture. Deficits affecting function/Deviations noted: slow madeleine, fatigues quickly Patient required verbal cues proper posture, use of UE's in transfers, and foot sequencing Functional exercise: Functional exercise: sit to stand x 1, with moderate assistance Sat EOB x 10 minutes with supervision verbal cues required to perform exercises correctly Therapeutic exercises: AROM: 1 set/s of 10 repetitions of the following exercises to improve circulation, functional mobility, & strength: sitting: ankle pumps, hip abduction, hip adduction, and long arc quads [facility] AM-PAC Basic Mobility How much help from another person does the patient currently need? Score 1. Turning from your back to your side while in a flat bed without using bedrails? 3 - A little (supervision to min assist) 2. Moving from lying on your back to sitting on the side of a flat bed without using bedrails? 3 - A little (supervision to min assist) 3. Moving to and from a bed to a chair (including a wheelchair)? 2 - A lot (max to mod assist) 4. Standing up from a chair using your arms (e.g., wheelchair, or bedside chair)? 2 - A lot (max tomod assist) 5. Walking in hospital room? 2 - A lot (max to mod assist) 6. Climbing 3-5 steps with a railing? 1 - Total assist or cannot do at all Total score 13/24 0-16 - indicates likely facility discharge 17-24 indicates likely community discharge * scores determined based on patient report, observation or professional expertise Assessment and Plan Functional Progress: Patient is progressing towards the goal(s) for functional strength and mobility. Patient does require skilled PT. Specific focus for next treatment session: gait/LE strengthening. For ongoing assessment of current treatment plan: chart, goals and treatment plan reviewed. Goals, treatment plan and plan of care frequency remain appropriate. Continue with plan of care as previously established until goals met or patient discharges from facility Recommendations Based on PT assessment of and/or progress with physical function, AM-PAC Basic Mobility score, potential for improvement, available home support, participation in therapeutic intervention, tolerance for activity, and safety , anticipated discharge disposition: [facility] facility (01/27/25 631). Pt needs daily (weekday) skilled PT services. Anticipate tolerance for an intensive program may be limited and extended recovery time needed. * The final discharge location is determined through physician, case management, and patient/caregiver input along with insurance authorization of skilled services when appropriate PT Recommended DME: To be determined (01/27/251457). Daily activity recommendations: Up with 1 assist Precautions Patient Precautions: Fall Risk Bracing/Orthotics: none Weight Bearing: No Restrictions Education/Training Provided Additional education provided: discharge planning, home exercise program, rehabilitation principles, and safety Learner, method of education, and response to learning listed in Education tab in Epic. Disposition At start of session, patient found lying in bed At end of session, patient left sitting in chair with phone and call light in reach Consent to treatment given by: Patient and Nurse Prior to PT session a thorough chart review was completed, including prior therapy notes, as applicable. Further treatment notes and therapeutic goals can be found in Care Plan Notes. If the patient discharges from the facility before another therapy visit, this shall serve as the therapy discharge summary. Thank you for this referral, Morgan Cotter, Electrode Turner And Finisher * Care Plan - Natali Negrete RN - 01/27/2025 2:45 PM CDT Problem: Discharge Planning Goal: Identify discharge needs upon admission and through discharge Description: Sales Marketing Discharge Planning Expected Discharge Date Jan 28, 2025 Plan Discharge To: Intermediate Facility (01/27/251444) Plan Discharge To - Alternate: Home Health Services (01/27/251444) Spoke with ONIEL Fernandez at [facility], family has not brought in additional insurance information as requested to verify patient has coverage for additional SNF days as PT/OT recommending SNFand DPOA/son Alex would like patient to be more independent prior to returning home. @ 1442 Left voice mail for DPOA/Son Alex, provided return contact information. @1443 spoke with granddaughter Maame, via phone, who reports they just got home from the vets, and that Uncle Alex went to bed. Maame confirms she did not bring the information to the [facility] yet but reports she will walk it over there now. Advised Maame again to please speak with her Uncle Alex and to please have him reach out to CM for DC planning. Spoke with patient at bedside, she confirms she does not have a cell phone at bedside and that Alex has not been up since last Thursday afternoon. Discussed SNF vs home with HHC, patient is hopeful to go home but expresses that CM needs to talk to Alex about that as she will do what he says. Advised patient that if Alex calls or comes in to please have him reach out to CM as we are having a difficult time connecting with him for DC planning. Barriers to DC: Lifetime reserve Medicare days @$838/day for Hospital/IPR, also in co-pay days for SNF (aprox $214.50/day total for SNF will be $1466.50) Difficulty to reach DPOA/SON Alex. Updated Ins Info, Ins Auth for SNF, unable to verify Level I Code: [id number] (previous from 12/08-01/04 SNF Admit) Primary DC Plan: SNF- ([facility] accepts clinically if family can pay co-pay), Alternative DC Plan: Home with HHC/family Updated MD, Clinical Fan Engine Engineer, CN, bedside nurse and CM Cash Reconciliation Specialist Luzma. Referrals Status: Facility Referrals - Accepted and Selected Destination - Admitted Since 01/12/2025 Service Provider Services Address Phone Fax Patient Preferred [facility] [address] [facility],[address], [facility] [address] [phone] -- Internal Comment last updated by Natali Negrete RN 01/19/2025 1054 Patient in Co-pay SNF days Follow-up on Referrals Sent: Yes (01/27/251444) Preferred Pharmacy: [facility] - [place], [place] - [address] [facility] - [place], [place] - [address] Patient / Family Communications: Patient/Family Communications: Plan Discharge To Update (01/27/251444) Discharge Plan Agreed Upon: Family member (01/27/251444) Resources Provided: Resource List Given: Care facilities;Home health agencies (01/26/25 112) Resource List Given To: Patient;Family member (01/26/251120) Information Given Concerning: Criteria for home health;Criteria for (skilled) nursing facility (01/26/25 112) Transportation Plan: Has discharge transport been arranged?: No (01/27/251444) Follow Up Appointments Scheduled Natali Negrete RN Outcome: Progressing * Care Plan - Morgan Cotter Electrode Turner And Finisher - 01/26/2025 1:51 PM CDT [facility] - Therapy Services 3K Ph. Acute Physical Therapy Treatment 01/26/2025 Room: [address] [place] [address] Name: Tiffany Sexton Age: 74 y.o. Date of : 1950 Insurance: Payor: MEDICARE / Plan: MEDICARE PART A AND B / Product Type: Medicare / Subjective Information Comments: pt agrees to PT session Pain: Refer to Doc. Flowsheet for documented pain levels. Vitals Patient on room air Vital signs stable throughout session Functional Mobility/Treatment Functional Mobility: Scooting: minimal assistance Supine to sit: minimal assistance Sit to stand: moderate assistance Bed to chair: moderate assistance Gait Trainin feet with rolling walker. moderate assistance for steering walker and maintaining upright posture. Deficits affecting function/Deviations noted: slow madeleine, fatigues quickly Patient required verbal cues proper posture, use of UE's in transfers, and foot sequencing Functional exercise: Functional exercise: sit to stand x 3, with moderate assistance Sat EOB x 12 minutes with supervision verbal cues required to perform exercises correctly Therapeutic exercises: AROM: 1 set/s of 10 repetitions of the following exercises to improve circulation, functional mobility, & strength: sitting: ankle pumps, hip abduction, hip adduction, and long arc quads [facility] Basic Mobility How much help from another person does the patient currently need? Score 1. Turning from your back to your side while in a flat bed without using bedrails? 3 - A little (supervision to min assist) 2. Moving from lying on your back to sitting on the side of a flat bed without using bedrails? 3 - A little (supervision to min assist) 3. Moving to and from a bed to a chair (including a wheelchair)? 2 - A lot (max to mod assist) 4. Standing up from a chair using your arms (e.g., wheelchair, or bedside chair)? 2 - A lot (max tomod assist) 5. Walking in hospital room? 2 - A lot (max to mod assist) 6. Climbing 3-5 steps with a railing? 1 - Total assist or cannot do at all Total score 0-16 - indicates likely facility discharge 17-24 indicates likely community discharge * scores determined based on patient report, observation or professional expertise Assessment and Plan Functional Progress: Patient is progressing towards the goal(s) for functional strength and mobility. Patient does require skilled PT. Specific focus for next treatment session: gait/LE strengthening. For ongoing assessment of current treatment plan: chart, goals and treatment plan reviewed. Goals, treatment plan and plan of care frequency remain appropriate. Continue with plan of care as previously established until goals met or patient discharges from facility Recommendations Based on PT assessment of and/or progress with physical function, -[facility] Basic Mobility score, potential for improvement, available home support, participation in therapeutic intervention, tolerance for activity, and safety , anticipated discharge disposition: [facility]iary facility (01/26/25 1351). Pt needs daily (weekday) skilled PT services. Anticipate tolerance for an intensive program may be limited and extended recovery time needed. * The final discharge location is determined through physician, case management, and patient/caregiver input along with insurance authorization of skilled services when appropriate PT Recommended DME: To be determined (01/26/25 1691). Daily activity recommendations: Up with 1 assist Precautions Patient Precautions: Fall Risk Bracing/Orthotics: none Weight Bearing: No Restrictions Education/Training Provided Additional education provided: discharge planning, home exercise program, rehabilitation principles, and safety Learner, method of education, and response to learning listed in Education tab in Epic. Disposition At start of session, patient found lying in bed At end of session, patient left lying in bed with phone and call light in reach Consent to treatment given by: Patient and Nurse Prior to PT session a thorough chart review was completed, including prior therapy notes, as applicable. Further treatment notes and therapeutic goals can be found in Care Plan Notes. If the patient discharges from the facility before another therapy visit, this shall serve as the therapy discharge summary. Thank you for this referral, Morgan Cotter, Electrode Turner And Finisher * Care Plan - Giselle Valentine, Exterior Designer - 01/26/2025 11:54 AM CDT [facility] - Therapy Services 3K Ph. Acute Occupational Therapy Treatment 01/26/2025 Room: [address] [place] [address] Name: Tiffany Sexton Age: 74 y.o. Patient Class: Inpatient Date of : 1950 Insurance: Payor: MEDICARE / Plan: MEDICARE PART A AND B / Product Type: Medicare / Prior to OT session thorough chart review completed, including prior OT notes as applicable. Consent to treat provided by patient and nurse Date of admission: 01/12/2025 SUBJECTIVE Patient Statements Information provided by: patient Patient/family comments: Pt lying in bed upon arrival, agreeable to therapy session but c/o pain instomach. Pt initially agreeable to ambulate to bathroom, but when half way, pt states can I just turn around and sit right here? Pt required encouragement throughout session. Pain: Refer to flowsheet for documentation of pain and interventions. OBJECTIVE Cognition Level of alertness: alert Orientation: x4 WNL Command following: good Safety awareness: fair; limited by slow processing, decreased problem solving, and decreased insight into deficits Memory: WFL conversationally Occupational Performance Activities of Daily Living Feeding: dependent assistance with acute PEG placement Lower extremity dressing: supervision seated EOB pt able to doff/don socks in figure 4 position, with extra time and effort Toileting: dependent assistance with ostomy. Pt denied need to urinate during session. Functional Mobility All mobility completed with gait belt, non-skid socks, and walker Bed mobility: moderate assistance sit > supine in bed for BLE management, to bring BLE back ontobed. Pt performed supine>sit with supervision, using bed rail Sit to stand: moderate assistance from EOB pt attempted to stand from EOB 2x without success, then required assist on third attempt to achieve standing. Functional ambulation: minimal assistance x ~20 feet set up of 2WW and VC for safety and encouragement, pt ambulated half way to bathroom from EOB, and back. Pt with forward flexed posture and heavy dependence on walker. Sitting balance: supervision for static tasks and dynamic tasks EOB ~5 minutes Standing balance: minimal assistance for static tasks with BUE on walker for support. Patient required verbal cues for attention to task, safety awareness while ambulating in room, and problem solving. [facility] AM-PAC Daily Activity How much help from another person does the patient currently need? Score 1. Putting on and taking off regular lower body clothing? 3 - A little (supervision to min assist) 2. Bathing (including washing, rinsing, drying)? 2 - A lot (max to mod assist) 3. Toileting, which includes using toilet, bedpan or urinal? 1 - Total assist or cannot do at all 4. Putting on and taking off regular upper body clothing? 3 - A little (supervision to min assist) 5. Taking care of personal grooming such as brushing teeth? 3 - A little (supervision to min assist) 6. Eating meals? 1 - Total assist or cannot do at all Total score 13/24 0-19 indicates likely facility discharge 19-24 indicates likely community discharge *Scores determined based on patient report, observation or professional expertise* Additional Interventions No additional treatment provided during this session Education provided to patient regarding treatment plan, session goals, and safety awareness and fall prevention with OOB ADL tasks, and functional ambulation. Education response: verbalized understanding and would benefit from reinforcement Vitals Current O2 requirement: room air Vital signs stable throughout. Additional vitals comments: Patient resting comfortably. Precautions Patient precautions: fall and Ostomy and PEG tube. Patient bracing/orthotics: none Weight bearing: no restrictions ASSESSMENT & PLAN Assessment Patient is progressing towards care plan goals. Patient is currently functioning below her prior level of function. Plan Continue with plan of care as previously established until patient goals are met or the patient discharges as decreased activity tolerance, decreased UE strength, decreased functional standing balance, high fall risk, decreased safety awareness, and pain continue to limit patient's occupational performance. Anticipate ongoing OT treatment sessions with specific focus on OOB ADL tasks, standing tolerance and balance and energy conservation techniques. For ongoing assessment of current treatment plan: chart, goals and treatment plan reviewed. Goals, treatment plan and plan of care frequency remain appropriate. Recommendations Based on OT assessment of patient's ability to complete self-care tasks and their AM-PAC Daily Activity Score, anticipated discharge disposition: penitentiary facility (01/26/25 1220) Rationale: Patient needs daily (weekday) skilled OT services. Anticipate tolerance is limited for intensive or adapted intensive rehab program.. * The final discharge location is determined through physician, case management, and patient/caregiver input along with [facility] OT recommended DME and AE upon discharge: To be determined (01/26/25 1220) No new additional adaptive equipment necessary (01/26/25 122) Nursing Staff Mobility Recommendations Recommended daily activity during admission: toileting in bathroom, up to chair for meals, and assist x 1 Disposition At start of session, patient found lying in bed At end of session, patient left in bed, call light in reach, phone in reach, and staff notified of patient location/events of session Further treatment notes and therapeutic goals can be found in Care Plan Notes. If the patient discharges from facility before another therapy visit, this shall serve as therapy discharge summary. Thank you for this referral, Giselle Valentine, Exterior Designer * Care Plan - Natali Negrete RN - 01/26/2025 11:21 AM CDT Problem: Discharge Planning Goal: Identify discharge needs upon admission and through discharge Description: Sales Marketing Discharge Planning Expected Discharge Date Jan 27, 2025 Plan Discharge To: Intermediate Facility (01/26/25 112) Plan Discharge To - Alternate: Home Health Services (01/26/25 112) Met with patient at bedside, she is alert and oriented to name, , place and year. Discussed DC planning, SNF vs HHC, advised of Lifetime reserve Medicare days @$838/day for Hospital/IPR, also in co-pay days for SNF (aprox $214.50/day total for SNF will be $1466.50) Patient reports she wants to go home. Advised that CM will discuss with family to assure patient has help at home and to set up HHC. Patient expresses her thankfulness for visit. Left Message for virginia Isabel, provided CM contact and availability information. Spoke with Son/DPREGIS Johnson, via phone informed him of financial information re: copays and lifetime reserves. Alex provided CM information on another Ins, reporting patient also has [facility] from a pension: MID # [id number] EOB ID# [id number]. Discussed patient coming home with [facility], he rpeorts he wants patient to be more independent before coming home, and is agreeable with [facility] IF new insurance doesn't cover SNF. Requested PT/OT to work with patient today, for updated recommendations. Per DPOA/Son Alex he spoke with [facility] and patient does not qualify for Medicaid. [facility] choices have been shared with alexiser encouraged Alex to review list and provide choices. Notified [employer] [facility] ONIEL Fernandez who will run benefits and return call to . [facility] Central Registration (Ladonna) they are unable to verify the insurance. Attempted to call son/DPREGIS Johnson again to get copy of care, no answer, voice mail box full. Attempted to call virginia Isabel again, left a second message. Updated and FABIAN. Addendum @ 1240, received call back form [facility] [place] (Julia), unable to verify the additional Insurance provided by son/dpregis. Updated , FABIAN and Bedside nurse. Escalated case to Fan Engine Engineer Lorena. Our Insurance team was unable to verify Untied Insurance as well. Addendum @ 1545, granddaughter Maame called CM back. Maame confirms patient does have other Insurance, that they do not have card but have paper work showing patient has insurance coverage. Advised Maame to have her Uncle Alex, (he is sleeping because he works nights) to bring the papers to [facility] and speak with them about the co-pays. Ask him to clear his voice mail box and to please be available to speak with CM for DC planning as he is the DPOA and the one patient resides with. Advised that if family unable to produce additional insurance information and cannot afford the copays, family will need to provide care for patient at home. Advised Maame for her and Uncle lAex to review the C list they have been provided and to inform CM of their choices. Maame reports she will speak to her uncle when he gets up, will convey the information to him and have himdrive her to the NH tomorrow after her doctor's appointment at 9:30 am to provide them with the insurance information and will call CM tomorrow afterwards to update on insurance and SNF vs HHC Referrals Status: Facility Referrals - Accepted and Selected Destination - Admitted Since 01/12/2025 Service Provider Services Address Phone Fax Patient Preferred [facility] [address] [address] [phone] -- Internal Comment last updated by Natali Negrete RN 01/19/2025 1054 Patient in Co-pay SNF days Follow-up on Referrals Sent: Yes (01/26/251120) Preferred Pharmacy: [facility] - [place], [place] - [address] [facility] - [facility] [address] Patient / Family Communications: Patient/Family Communications: Plan Discharge To Update (01/26/251120) Discharge Plan Agreed Upon: Patient;Family member (01/26/251120) Resources Provided: Resource List Given: Care facilities;Home health agencies (01/26/251120) Resource List Given To: Patient;Family member (01/26/251120) Information Given Concerning: Criteria for home health;Criteria for (skilled) nursing facility (01/26/25 1121) Transportation Plan: Has discharge transport been arranged?: No (01/26/25 112) Follow Up Appointments Scheduled Natali Negrete RN Outcome: Progressing * Care Plan - [place], RODOLFO - 01/26/2025 11:15 AM CDT Speech Therapy [facility] 3K Ph. ; Fax. Acute Speech-Language Pathology Swallow and Cognitive Treatment Session 01/26/2025 Room: [address] [place] [address] Name: Tiffany Sexton Age: 74 y.o. Date of : 1950 Insurance: Payor: MEDICARE / Plan: MEDICARE PART A AND B / Product Type: Medicare / Patient class: Inpatient Confirmed patient's identification of name and date of : on name band, by patient report Consent to treatment given by patient and nurse with results as follows: Subjective Information and Clinical Observations Pain: Refer to Doc Flowsheet for documented pain levels. Patient/Family Perspective: ugh, I can smell it from here (in regards to lunch tray) Level of Alertness: Alert/Responsive Mood/Affect: Patient calm and cooperative Position: Upright in bed Oriented x Person, Place, and Date (Year) Circumstances negatively impacting performance this date: confusion Patient has G Tube and is on room air Treatment THERAPEUTIC INTERVENTION: Tiffany was seen this date for diagnostic reassessment of oropharyngeal swallowing abilities in order to clinically reassess swallowing function and to guide dysphagia management. ORAL EXAMINATION: Dentition: present and adequate Oral Mucosa: dry Secretion Management:xerostomia COMMENTS: Aspiration risk management strategies performed/discussed with patient: Oral care completed prior to po trials by pt in an attempt to reduce potential negative pulmonary complications should aspiration of bacteria-laden oropharyngeal secretions occur. Lip balm applied. DIAGNOSTIC REASSESSMENT OF SWALLOWING: ORAL: Lip Seal: WFL Mastication: slow, but effective Oral Transit: delayed Bolus Clearance: WNL PHARYNGEAL Thin Liquid Trials: The patient demonstrated no signs/symptoms of distress on liquids provided via straw. Solid Trials: The patient demonstrated no signs/symptoms of distress on textures provided. STRATEGIES ATTEMPTED: Alternation of liquid and solid boluses Single, small volume drinks via small bore straw Small bites of food The patient self fed during the session. COGNITION: - Orientation: Oriented to name and (biographical information) and that we are in a hospital . Pt unable to recall the name of the hospital and for city stated [place] . Pt unable to recall month, day, or date. Poor accuracy even with attempted use of white board. Poor if any carry over noted during session. Session limited by nausea. Assessment SWALLOW: Tiffany was seen for follow up dysphagia treatment session. Current diet is Soft/ Thin per MBS completed yesterday (01/25/25). Pt also has G-tube and endorses ongoing nausea and decreased appetite. On room air. Hx of GERD and Camargo's esophagus. Limited assessment due to ongoing nausea and subsequent poor appetite. Pt was agreeable to oral care and PO trials of thin liquids (Sprite) and saltine crackers. Dried secretions on lips and in oral cavity were removed. Pt tolerated PO trials, although limited, without overt s/s of distress. Pt continues to present with mild oropharyngeal dysphagia, likely acute on chronic due to AMS and generalized weakness. Recommend: Continue SOFT diet/ THIN liquids with use of compensatory swallow strategies. COMMUNICATIONS TECHNOLOGIST to continue to follow. COGNITION: Cognitive-Linguistic/ Memory evaluation completed 01/16/25. Pt scored 10/30 on the MoCA- indicative of a moderate cognitive impairment for age and education level. Pt continues to demonstrate impaired orientation and short term memory. Suspect safety concerns forhome discharge without 24-hour supervision. Specifically, concern for activities of daily living that require a large cognitive load (e.g., cooking/meal preparation, medication management, manager financial services, maintaining personal hygiene, responding to emergency situations, etc.). Recommend 24-hour assistance in discharge location. Patient would benefit from further speech therapy to address the above deficits in order to improvefunctional independence and quality of life. Swallowing Recommendations DIET RECOMMENDATIONS: Dental soft and IDDSI 0 Normal (Thin) Liquids PATIENT SPECIFIC SWALLOWING GUIDELINES: Single, small volume drinks Alternate bites of food with drinks of liquid Liquids: open cup or small bore straw only; avoid large bore/[facility] mug straws GENERAL SWALLOWING GUIDELINES: Patient should be seated close to 90 degrees, preferably in the chair Remain upright for 30-60 minutes after meals Take frequent drinks during meals Small sips/bites Eat slowly Minimize distractions during oral intake (conversations/TV) Monitor for signs and symptoms of aspiration Good oral care 3 times every day with toothbrush Discharge Recommendations Anticipated discharge disposition: Recommend patient discharge to Intermediate Facility * The final discharge location is determined through physician, case management, and patient/caregiver input along with insurance authorization of skilled services when appropriate Additional consults/recommendations: None at this time. Plan of Care Continue COMMUNICATIONS TECHNOLOGIST services to address cognitive-linguistic/memory deficits and swallowing deficits (dysphagia), anticipate follow up in the next 2-4 days or as medical condition changes. Plan of care to continue for the duration of the patient's acute care hospital stay or until goals are met. Please notify speech therapy department should the patient's condition change and/or patient requires COMMUNICATIONS TECHNOLOGIST services prior to the next anticipated COMMUNICATIONS TECHNOLOGIST visit. Precautions Patient precautions: Aspiration, Fall, and Seizure Education Disposition Regarding: results and recommendations of treatment session, risk of aspiration with po intake, implications of aspiration, importance of oral care, rationale of recommended diet, strategies to increase safety with po intake, results and recommendations of cognitive-linguistic/memory treatment, implementation of memory strategies, and speech therapy plan of care. Learner, method of education, and response to learning listed in Education tab in Epic Before session: Patient lying in bed After session: Patient lying in bed, call light in reach, and HOB greater than 30 degrees Prior to session, completed thorough chart review. Reviewed prior therapy treatment notes as applicable. Further treatment notes and therapeutic goals can be found in Care Plan Notes. If the patient discharges from facility prior to another therapy visit, this shall serve as the therapy discharge summary [place] [facility]-COMMUNICATIONS TECHNOLOGIST Acute Speech Therapy Charge Zone Phone #[phone] Acute Speech Therapy Charge Pager #[phone] * Care Plan - Loida Busby RN - 01/26/2025 5:44 AM CDT Shift Summary Pain management required multiple PRN medications, with only partial and temporary relief achieved. Vancomycin in sodium chloride 0.9% was administered and then stopped, and blood cultures are still pending with no new findings during the shift. High fall risk interventions and safety checks were performed consistently, and no falls or injuries were documented. Potassium chloride was administered in response to a low potassium result, and nutrition intake waslikely inadequate with persistently elevated blood glucose levels. Overall, the shift was marked by ongoing pain, continued infection precautions, and stable safety interventions. Infection Risk/Actual: Infection prevention, control, or resolution by discharge: Vancomycin in sodium chloride 0.9% was administered and stopped during the shift; temperature remained stable and within normal range, and blood cultures are in progress with no new findings reported during the shift. Safety/Fall: Absence of fall, injury, harm during hospitalization: High fall risk interventions andsafety checks were consistently completed, and no falls or injuries were documented during the shift. * Care Plan - Camilla Hurtado RN - 01/25/2025 5:54 PM CDT Shift Summary HYDROcodone-acetaminophen was administered three times for pain management, resulting in periods ofimproved comfort. Mobility and positioning interventions were performed to support skin integrity and comfort. potassium CHLORIDE was administered and stopped in two different departments during the morning. No falls or injuries occurred, and high fall risk interventions were maintained throughout the shift. Overall, pain was intermittently present but managed, wounds remained stable, and safety precautions were upheld. Verbalizes/displays acceptable comfort level or baseline comfort level: Pain ratings fluctuated throughout the shift, with highest pain reported in the morning and improvement after administration ofHYDROcodone-acetaminophen in [facility] Interventional Radiology [facility] and [facility] department; patient appeared content/relaxed after interventions, though intermittent pain persisted in the afternoon and evening. Infection Risk/Actual: Infection prevention, control, or resolution by discharge: Temperature decreased to an abnormal low in the afternoon, and ostomy remained present; no drainage was noted from bilateral gluteal wound, and topical moisture barrier cream was applied consistently. Safety/Fall: Absence of fall, injury, harm during hospitalization: High fall risk interventions, including low low bed and safety checks, were maintained throughout the shift, with no reported falls or injuries. Maintain skin integrity and/or promote wound healing by discharge: Bilateral gluteal and left lowerquadrant wounds remained macerated and reddened with blanchable erythema, but no drainage was observed and moisture barrier cream was applied at each assessment; skin was occasionally moist and mobility slightly limited, with positioning supports utilized. * Care Plan - Natali Negrete RN - 01/25/2025 3:00 PM CDT Problem: Discharge Planning Goal: Identify discharge needs upon admission and through discharge Description: Sales Marketing Discharge Planning Expected Discharge Date Jan 27, 2025 Plan Discharge To: Intermediate Facility (01/25/25 1500) Plan Discharge To - Alternate: Medicaid certified nursing facility (01/25/25 1500) Spoke with patient's granddaughter Maame, via phone as I attempted to reach patient's DPOA/son Alex at [phone], and he did not answer and his voice mail box is full and no family has been at bedside. Discussed with granddaughter Maame that patient has been declined for [facility] due to patient being in [employer] Medicare days and cost would be $838/day for Hospital/IPR, Unfortunately patient is also in co-pay days for SNF (aprox $214.50/day total for staff will be $1466.50 for [facility], other facilities may be +/-). Discussed that [facility] has been trying to reach son/DPOA Alex to complete Medicaid Screening as well. Maame asked that MEP call her to assist (emailed MEP). Advised that patient is close to DC ready ad will need a decision form Son/DPOA on wether he can provide the copays for patient to transfer to SNF or would he be able to care for patient at home with [facility]. Confirmed with [facility] ONIEL Fernandez, patient is still accepted back as long as family is able to meet the co-pay costs. Updated MD, CN and Bedside nurse. Level I Code: [id number] (previous from 12/08-01/04 SNF Admit) No Ins Auth required. Referrals Status: Facility Referrals - Accepted and Selected Destination - Admitted Since 01/12/2025 Service Provider Services Address Phone Fax Patient Preferred [facility] [address], [facility] [address] [phone] -- Internal Comment last updated by Natali Negrete RN 01/19/2025 1054 Patient in Co-pay SNF days Follow-up on Referrals Sent: Yes (01/25/25 1500) Preferred Pharmacy: [facility] - [place], [place] - [address] [facility] - [place], [place] - [address] Patient / Family Communications: Patient/Family Communications: Plan Discharge To Update (01/25/25 1500) Discharge Plan Agreed Upon: Family member (01/25/25 1500) Resources Provided: Resource List Given: Care facilities (01/25/25 1500) Resource List Given To: Family member (01/12/25 1632) Information Given Concerning: Criteria for (skilled) nursing facility (01/25/25 1500) Transportation Plan: Has discharge transport been arranged?: No (01/25/25 1500) Follow Up Appointments Scheduled Natali Negrete RN Outcome: Progressing * Care Plan - Ksenia Perdomo Electrode Turner And Finisher - 01/25/2025 2:18 PM CDT Attempted to see patient for PT treatment. Patient/Family chose not to participate in therapy due to abdominal pain and nausea, patient declines mobility/exercises this session. Will continue with attempts for evaluation/established plan of care. Thank you, Ksenia Perdomo Electrode Turner And Finisher * Therapy Evaluation - Gayla Mojica SLP - 01/25/2025 10:29 AM CDT [facility] 3K Ph. ; Fax. Acute Speech-Language Pathology Modified Barium Swallow Evaluation 01/25/2025 Room: [address] [place] [address] Name: Tiffany Sexton Age: 74 y.o. Date of : 1950 Insurance: Payor: MEDICARE / Plan: MEDICARE PART A AND B / Product Type: Medicare / Patient class: Inpatient Confirmed patient's identification of name and date of : on name band and by patient report Consent to treatment given by patient and nurse with results as follows: Onset of illness/injury or date of surgery: 01/12/2025 HPI Tiffany Sexton is a 74 y.o. female with perforated diverticulitis s/p colostomy, recent history of C. Difficile status post deficid transferred from OSH for AMS, lethargy, C Diff colitis Subjective Information and Clinical Observations Patient/Family Goals Statement: I really cannot try more Pain: Refer to Doc Flowsheet for documented pain levels. Level of Alertness: Alert/Responsive Mood/Affect: Patient participates with encouragement Position: Upright Circumstances negatively impacting performance this date: decreased participation Diagnostic Intervention Provided Speech Language Pathology Video Fluoro Swallow Objective Information Primary Swallowing Complaint: Clinical swallow evaluation revealed signs of oropharyngeal dysphagiaand concern for aspiration. MBS ordered to define swallow physiology, determine aspiration risk, and develop a treatment plan. Patient has food/contrast allergies: None per patient or chart review. Diet prior to MBS: NPO Patient has PEG Tube and is on room air Referring Provider: Erendira Jackson MD Fluoroscopy Conditions Lateral View: thin liquid, nectar liquid, honey liquid, puree-thin, puree-thick, semi-solid, and solid Anterior/Posterior View: not performed Position: seated upright C-arm utilized to perform MBS: Yes Oral Mucosa: normal, moist Secretion Management: swallows own secretions Dentition: present and adequate Due to weakness, feeding was performed by the therapist. Anatomic view under fluoroscopy: Unremarkable Oral Phase abnormal mild Observations: increased oral transit time, premature spillage with slow initiation of the pharyngeal swallow, slow prolonged chewing/mashing with complete re-collection, increased oral residue, and increased tongue base residue Oral Phase Comments: Increased oral transit time. Reduced tongue base retraction contributed to increased tongue base residue. Poor oral control noted intermittently with liquid bolus pooling into vallecular space and pyriform sinus before swallow initiation. Prolonged mastication of regular solids observed. Pharyngeal Phase abnormal mild Observations: delayed initiation of the pharyngeal swallow, maximal vallecular pooling, moderate pyriform sinus pooling, reduced laryngeal vestibular closure, partial epiglottic inversion, minimal vallecular stasis, minimal pyriform sinus stasis, and reduced tongue base retraction Pharyngeal Phase Comments: Delayed initiation of the pharyngeal swallow with the head of the bolus reaching the pyriforms intermittently. Epiglottic inversion was reduced. Incomplete laryngeal vestibular closure observed demonstrated by narrow column of contrast in laryngeal vestibule. Minimal pharyngeal residue noted. Repeat swallows reduced some pharyngeal residue. Esophageal Screening Not assessed Penetration/Transglottic Aspiration THIN LIQUID Penetration occurred: Yes, during trials presented via open cup Aspiration occurred: No Rosenbek Penetration score of 2. Material enters the airway, remains above the vocal folds, and is ejected from the airway. and 3. Material enters the airway, remains above the vocal folds, and is not ejected from the airway. Patient response: no. NECTAR LIQUID Penetration occurred: Yes, during trials presented via open cup Aspiration occurred: No Rosenbek Penetration score of 3. Material enters the airway, remains above the vocal folds, and is not ejected from the airway. Patient response: no. HONEY LIQUID Penetration occurred: No Aspiration occurred: No Rosenbek Penetration score of 1. Material does not enter airway THIN PUREE, THICK PUREE, SEMI-SOLID, SOLID Penetration occurred: No Aspiration occurred: No Rosenbek Penetration score of 1. Material does not enter airway Swallowing Strategies Repeat dry swallows, Small bites and sips, and Straw drinking-all were effective strategies Assessment/Summary of Study Did aspiration occur: No, aspiration did not occur with any consistencies trialed this date. Study Summary: Pt presents with mild oropharyngeal dysphagia as confirmed by physiologic impairments noted on MBS. Pt's dysphagia is likely Acute on chronic due to AMS and generalized weakness. Based on results, recommend diet initiation of dental soft textures and thin liquids with STRICT utilization of safe swallowing strategies listed below. Penetration occurred during study due to premature spillage, delayed swallow initiation, and maximal vallecular pooling. Results/recommendations discussed with RN and MD. All in agreement with COMMUNICATIONS TECHNOLOGIST plan of care. Swallowing Recommendations DIET RECOMMENDATIONS: Dental soft and IDDSI 0 Normal (Thin) Liquids PATIENT SPECIFIC SWALLOWING GUIDELINES: Single, small volume drinks Alternate bites of food with drinks of liquid Liquids: open cup or small bore straw only; avoid large bore/[facility] mug straws GENERAL SWALLOWING GUIDELINES: Patient should be seated close to 90 degrees, preferably in the chair Remain upright for 30-60 minutes after meals Take frequent drinks during meals Small sips/bites Eat slowly Minimize distractions during oral intake (conversations/TV) Monitor for signs and symptoms of aspiration Good oral care 3 times every day with toothbrush/toothpaste Recommendations DISCHARGE RECOMMENDATIONS: Intermediate Facility *The final discharge location is determined through physician, case management, and patient/caregiver input along with insurance authorization of skilled services when appropriate Recommendations for referral to another service: None at this time Precautions Plan of Care Patient precautions: Aspiration, Fall, and Seizure Continue COMMUNICATIONS TECHNOLOGIST services to address swallowing deficits (dysphagia), anticipate follow up in the next 2-4 days or as medical condition changes. Plan ofcare to continue for the duration of the patient's acute care hospital stay or until goals are met. Please notify speech therapy department should the patient's condition change and/or patient requires COMMUNICATIONS TECHNOLOGIST services prior to the next anticipated COMMUNICATIONS TECHNOLOGIST visit. Education Disposition Regarding: results and recommendations of MBS, risk of aspiration with po intake, implications of aspiration, rationale of MBS, rationale of diet modification options, rationale of recommended diet, strategies to increase safety with po intake, and speech therapy plan of care Learner, method of education, and response to learning listed in Education tab in Epic Before session: Patient brought to radiology by converting technician After session: Patient transferred to cart and returned to room by converting technician Current Diagnoses/Past Medical History Pertinent diagnoses and past medical history related to this hospital stay are present in physicianH&P and physician daily notes. Prior to session, completed thorough chart review. Reviewed prior therapy treatment notes as applicable. Further treatment notes and therapeutic goals can be found in Care Plan Notes. If the patient discharges from facility prior to another therapy visit, this shall serve as the therapy discharge summary Thank you for this referral, Gena Mojica M.S. [facility]-COMMUNICATIONS TECHNOLOGIST Acute Speech Therapy Charge Zone Phone #[phone] Acute Speech Therapy Charge Pager #[phone] * Care Plan - Sophia Weaver RN - 01/25/2025 4:11 AM CDT Patient c/o pain early on in shift near her incision site, denied later on. Tube feeds advanced to goal of 60ml/hr. BS within normal range. Patient slept well throughout shift. No further complaints. * Care Plan - Camilla Hurtado RN - 01/24/2025 5:58 PM CDT Shift Summary BP dropped to 97/44 in the afternoon and nurse was notified. ceFAZolin and IV fluids were administered in [facility] E [place] during the shift. Topical barrier cream was applied and perineal hygiene was maintained to support skin integrity. Patient was transported by stretcher and report was given to 7B RN, with minimal equipment requiredfor transfer. Patient remained free from falls or injuries, and overall status was stable with comfort maintainedand discharge needs addressed. Infection Risk/Actual: Infection prevention, control, or resolution by discharge: Antibiotics and fluids were administered in [facility] [place], and hygiene care including perineal cleansing and topical barrier cream was provided; temperature remained stable and no abnormal drainage was noted from wounds. Safety/Fall: Absence of fall, injury, harm during hospitalization: High fall risk interventions, including low low bed and aspiration precautions, were maintained throughout the shift, and safety checks were completed with no reported falls or injuries. * Care Plan - Licha Knight MSW - 01/24/2025 10:43 AM CDT Sales Marketing Discharge Planning TAMIR conducted chart review and noted Natali DHILLON, shared that KETAN was working on JOANNA and attempting to reach pt DPOA to complete the Medicaid Screening. Pt anticipates Peg placement today. SW reached out to pt DPOA and left a messaging requesting a return call. Pt plans to DC to [place] if eligible for Medicaid. Pt currently in copay SNF days at $838 per day. [facility] can accept for SNF if pt is able to pay copay days. TAMIR will continue to reach out to pt family to assist with Medicaid screening. CM will continue to follow and assist with pt until DC Expected Discharge Date Jan 24, 2025 Plan Discharge To: Intermediate Facility (01/23/251509) Plan Discharge To - Alternate: Home Health Services (01/23/251509) Referrals Status: Facility Referrals - Accepted and Selected Destination - Admitted Since 01/12/2025 Service Provider Services Address Phone Fax Patient Preferred [facility] [address] [address] [phone] -- Internal Comment last updated by Natali Negrete RN 01/19/2025 1054 Patient in Co-pay SNF days Follow-up on Referrals Sent: Yes (01/23/251509) Preferred Pharmacy: [facility] - [place], [place] - [address] [facility] [place], [place] - [address] Patient / Family Communications: Patient/Family Communications: Plan Discharge To Update (01/18/25 08) Discharge Plan Agreed Upon: Family member (01/18/25 0850) Resources Provided: Resource List Given: Care facilities (01/18/25 0850) Resource List Given To: Family member (01/12/25 1632) Information Given Concerning: Criteria for rehabilitation;Criteria for (skilled) nursing facility;Criteria for home health (01/18/25 0850) Transportation Plan: Has discharge transport been arranged?: No (01/18/25 08) Follow Up Appointments Scheduled DEEJAY Hawkins * Care Plan - Natali Negrete RN - 01/23/2025 3:11 PM CDT Problem: Discharge Planning Goal: Identify discharge needs upon admission and through discharge Description: Sales Marketing Discharge Planning Expected Discharge Date Jan 24, 2025 Plan Discharge To: Intermediate Facility (01/23/251509) Plan Discharge To - Alternate: Home Health Services (01/23/251509) Patient remains pleasantly confused, oriented to name. Multiple extended family members at bedside earlier today. Son/DPREGIS Johnson was not present. Patient continues to have NGT with TF, she is for a MBS tomorrow and poss PEG placement 48hrs after last dose of Eliquis. [facility] MEP working on JOANNA and attempting to get a hold of son/DPOA Alex and granddaughter Maame. Attempted to call DPOA/son Alex and Granddaughter Maame. Left message provided return contact number and availability information. Referrals Status: Facility Referrals - Accepted and Selected Destination - Admitted Since 01/12/2025 Service Provider Services Address Phone Fax Patient Preferred [facility] [address] [address] [phone] -- Internal Comment last updated by Natali Negrete RN 01/19/2025 1054 Patient in Co-pay SNF days Follow-up on Referrals Sent: Yes (01/23/25 7560) Preferred Pharmacy: [facility] - [place], [place] - [address] [facility] - [place], [place] - [address] Patient / Family Communications: Patient/Family Communications: Plan Discharge To Update (01/18/25 0850) Discharge Plan Agreed Upon: Family member (01/18/25 0850) Resources Provided: Resource List Given: Care facilities (01/18/25 0850) Resource List Given To: Family member (01/12/25 1632) Information Given Concerning: Criteria for rehabilitation;Criteria for (skilled) nursing facility;Criteria for home health (01/18/25 0850) Transportation Plan: Has discharge transport been arranged?: No (01/18/25 0850) Follow Up Appointments Scheduled Natali Negrete RN Outcome: Progressing * Care Plan - Morgan Cotter, Electrode Turner And Finisher - 01/23/2025 11:25 AM CDT [facility] - Therapy Services 3K Ph. Acute Physical Therapy Treatment 01/23/2025 Room: [address] [place] [address] Name: Tiffany Sexton Age: 74 y.o. Date of : 1950 Insurance: Payor: MEDICARE / Plan: MEDICARE PART A AND B / Product Type: Medicare / Subjective Information Comments: pt agrees to PT session Pain: Refer to Doc. Flowsheet for documented pain levels. Vitals Patient on room air Vital signs stable throughout session Functional Mobility/Treatment Functional Mobility: Scooting: minimal assistance Supine to sit: minimal assistance Sit to stand: moderate assistance Bed to chair: moderate assistance Gait Trainin feet with rolling walker. moderate assistance for steering walker and maintaining upright posture. Deficits affecting function/Deviations noted: slow madeleine, fatigues quickly Patient required verbal cues proper posture, use of UE's in transfers, and foot sequencing Functional exercise: Functional exercise: sit to stand x 3, with moderate assistance Sat EOB x 8 minutes with min A, quickly progressing to supervision verbal cues required to perform exercises correctly Therapeutic exercises: AROM: 1 set/s of 10 repetitions of the following exercises to improve circulation, functional mobility, & strength: sitting: ankle pumps, hip abduction, hip adduction, and long arc quads [facility] Basic Mobility How much help from another person does the patient currently need? Score 1. Turning from your back to your side while in a flat bed without using bedrails? 3 - A little (supervision to min assist) 2. Moving from lying on your back to sitting on the side of a flat bed without using bedrails? 3 - A little (supervision to min assist) 3. Moving to and from a bed to a chair (including a wheelchair)? 2 - A lot (max to mod assist) 4. Standing up from a chair using your arms (e.g., wheelchair, or bedside chair)? 2 - A lot (max tomod assist) 5. Walking in hospital room? 2 - A lot (max to mod assist) 6. Climbing 3-5 steps with a railing? 1 - Total assist or cannot do at all Total score 13/24 0-16 - indicates likely facility discharge 17-24 indicates likely community discharge * scores determined based on patient report, observation or professional expertise Assessment and Plan Functional Progress: Patient is progressing towards the goal(s) for functional strength and mobility. Patient does require skilled PT. Specific focus for next treatment session: gait/LE strengthening. For ongoing assessment of current treatment plan: chart, goals and treatment plan reviewed. Goals, treatment plan and plan of care frequency remain appropriate. Continue with plan of care as previously established until goals met or patient discharges from facility Recommendations Based on PT assessment of and/or progress with physical function, AM-PAC Basic Mobility score, potential for improvement, available home support, participation in therapeutic intervention, tolerance for activity, and safety , anticipated discharge disposition: [facility] (01/23/251124). Pt needs daily (weekday) skilled PT services. Anticipate tolerance for an intensive program may be limited and extended recovery time needed. * The final discharge location is determined through physician, case management, and patient/caregiver input along with insurance authorization of skilled services when appropriate PT Recommended DME: To be determined (01/23/251124). Daily activity recommendations: Up with 1 assist Precautions Patient Precautions: Fall Risk Bracing/Orthotics: none Weight Bearing: No Restrictions Education/Training Provided Additional education provided: discharge planning, home exercise program, rehabilitation principles, and safety Learner, method of education, and response to learning listed in Education tab in Epic. Disposition At start of session, patient found lying in bed At end of session, patient left seated in chair with phone and call light in reach and RN present Consent to treatment given by: Patient and Nurse Prior to PT session a thorough chart review was completed, including prior therapy notes, as applicable. Further treatment notes and therapeutic goals can be found in Care Plan Notes. If the patient discharges from the facility before another therapy visit, this shall serve as the therapy discharge summary. Thank you for this referral, Morgan Cotter, Electrode Turner And Finisher CDT * Care Plan - Camilla Hurtado RN - 01/22/2025 6:16 PM CDT Shift Summary potassium BICARBONATE-citric acid was administered three times during the shift to support electrolyte balance. Hygiene care and perineal cleansing were performed at midday to reduce infection risk and support skin integrity. Topical barrier moisture cream was applied in the morning to protect skin and promote wound healing. No pain or discomfort was reported, and no pain interventions were needed throughout the shift. Overall, the shift was stable with consistent implementation of safety, skin, and infection prevention interventions. Infection Risk/Actual: Infection prevention, control, or resolution by discharge: Temperature and vital signs remained stable, hygiene care was provided, and no new drainage or changes in wound appearance were observed; urinalysis did not detect abnormal findings. Safety/Fall: Absence of fall, injury, harm during hospitalization: High fall risk interventions were maintained, safety checks were completed, and no falls or injuries occurred during the shift. * Care Plan - Licha Campa RN - 01/22/2025 4:50 AM CDT Shift Summary Acetaminophen was administered via NG after patient refused rectal pain medication and new orders were received for pain management. Safety checks and aspiration precautions were maintained throughout the shift. Blood glucose levels were monitored and remained slightly elevated. Patient was able to rest and appeared content and relaxed after pain interventions, with no falls or injuries documented. Verbalizes/displays acceptable comfort level or baseline comfort level: Pain was reported as 7/10 in the throat early in the shift, with acetaminophen administered and unnecessary movement avoided; patient later appeared content and relaxed while sleeping, suggesting improved comfort after interventions. Safety/Fall: Absence of fall, injury, harm during hospitalization: Safety checks were completed andaspiration precautions maintained, with no documentation of falls or injuries during the shift. * Care Plan - Camilla Hurtado RN - 01/21/2025 6:00 PM CDT Shift Summary Fever developed in the evening, and comfort interventions included ondansetron and acetaminophen administration. High fall risk interventions and safety checks were maintained, with no reported falls or injuries. Wound care was consistent, with no change in drainage and regular application of moisture barrier cream. Mobility was supported with two-person assist and regular repositioning, and hygiene care was provided with CHG bath and linen changes. Overall, comfort was maintained and safety protocols were followed throughout the shift. Infection Risk/Actual: Infection prevention, control, or resolution by discharge: Temperature remained within normal limits until a fever developed in the evening, and a moisture barrier cream was applied to the wound throughout the shift. Hygiene care included a CHG bath and perineal cleansing, and potassium and magnesium supplementation were provided. Safety/Fall: Absence of fall, injury, harm during hospitalization: High fall risk interventions were maintained, including a low low bed and safety checks, with no reported falls or injuries. Two-person assist was required for mobility, and aspiration precautions were in place throughout the shift. * Care Plan - Theresa Berrios GN - 01/21/2025 5:46 AM CDT Shift Summary No pain or discomfort was reported, and pain assessments remained unchanged throughout the shift. High fall risk interventions were maintained, including frequent safety checks and use of a low lowbed, with no reported falls or injuries. Skin and wound assessments remained stable, with continued use of moisture control and repositioning interventions; the wound base and periwound area showed no notable changes. Vital signs fluctuated but remained within a manageable range during the shift. Overall, the patient maintained comfort and safety, and skin integrity was supported throughout theshift. Verbalizes/displays acceptable comfort level or baseline comfort level: No pain or discomfort was reported throughout the shift, and pain assessments remained unchanged with no interventions required. Safety/Fall: Absence of fall, injury, harm during hospitalization: High fall risk interventions were maintained, including use of a low low bed and completion of frequent safety checks, with no reported falls or injuries during the shift. Maintain skin integrity and/or promote wound healing by discharge: Skin and wound assessments remained stable, with continued use of moisture control and repositioning interventions; the wound base and periwound area showed no notable changes. * Care Plan - Anamika Miller RN - 01/20/2025 5:20 PM CDT Problem: Discharge Planning Goal: Identify discharge needs upon admission and through discharge Description: Sales Marketing Discharge Planning Expected Discharge Date Jan 23, 2025 Plan Discharge To: Intermediate Facility (01/18/25 0850) Plan Discharge To - Alternate: Home Health Services (01/18/25 0850) PT and OT evaluations sent to [facility]. Noted meeting with son for tomorrow to discuss G-tube. Referrals Status: Facility Referrals - Accepted Follow-up on Referrals Sent: Yes (01/18/25849) Preferred Pharmacy: [facility] - [place], [place] - [address] [facility] - [place], [place] - [address] Patient / Family Communications: Patient/Family Communications: Plan Discharge To Update (01/18/25849) Discharge Plan Agreed Upon: Family member (01/18/25849) Resources Provided: Resource List Given: Care facilities (01/18/25849) Resource List Given To: Family member (01/12/25 1632) Information Given Concerning: Criteria for rehabilitation;Criteria for (skilled) nursing facility;Criteria for home health (01/18/25849) Transportation Plan: Has discharge transport been arranged?: No (01/18/25849) Follow Up Appointments Scheduled Anamika Miller RN Outcome: Progressing * Care Plan - Ivana Gamboa Exterior Designer - 01/20/2025 3:03 PM CDT [facility] - Therapy Services 3K Ph. Acute Occupational Therapy Treatment 01/20/2025 Room: [address] [place] [address] Name: Tiffany Sexton Age: 74 y.o. Patient Class: Inpatient Date of : 1950 Insurance: Payor: MEDICARE / Plan: MEDICARE PART A AND B / Product Type: Medicare / Prior to OT session thorough chart review completed, including prior OT notes as applicable. Consent to treat provided by patient and nurse Date of admission: 01/12/2025 SUBJECTIVE Patient Statements Information provided by: patient Patient/family comments: pt seen supine in bed, pleasant and agreeable to OT tx. Pt fixated on going home. Pain: Refer to flowsheet for documentation of pain and interventions. OBJECTIVE Cognition Level of alertness: alert Orientation: not formally assessed; appears oriented in conversation Command following: fair fixated on wanting to go home. Safety awareness: poor; limited by impulsivity, slow processing, decreased problem solving, decreased insight into deficits, and decreased attention Memory: NT Occupational Performance Activities of Daily Living Feeding: dependent assistance with acute NG placement Grooming: supervision seated EOB hand/face/oral hygiene (dental sponge). Upper extremity dressing: minimal assistance seated EOB don/doff gown like shirt; assistance for management of chest. Toilet transfer: moderate assistance sit < > stand from EOB 2x simulation BS. Functional Mobility All mobility completed with gait belt, non-skid socks, and walker Bed mobility: minimal assistance supine < > sit EOB . Sit to stand: moderate assistance from EOB 2x. Functional ambulation: moderate assistance x ~2 feet ; side step towards [facility]. Sitting balance: supervision for static tasks and dynamic tasks Standing balance: minimal assistance for static tasks and dynamic tasks Patient required verbal, visual, and tactile cues for attention to task, safety due to impulsivity,sequencing, initiation of task, command following, proper breathing techniques, and problem solving. [facility] AM-PAC Daily Activity How much help from another person does the patient currently need? Score 1. Putting on and taking off regular lower body clothing? 2 - A lot (max to mod assist) 2. Bathing (including washing, rinsing, drying)? 2 - A lot (max to mod assist) 3. Toileting, which includes using toilet, bedpan or urinal? 2 - A lot (max to mod assist) 4. Putting on and taking off regular upper body clothing? 3 - A little (supervision to min assist) 5. Taking care of personal grooming such as brushing teeth? 3 - A little (supervision to min assist) 6. Eating meals? 3 - A little (supervision to min assist) Total score 15/24 0-19 indicates likely facility discharge 19-24 indicates likely community discharge *Scores determined based on patient report, observation or professional expertise* Additional Interventions No additional treatment provided during this session Education provided to patient regarding treatment plan and session goals Education response: verbalized understanding and would benefit from reinforcement Vitals Current O2 requirement: room air Vital signs stable throughout. Additional vitals comments: Patient resting comfortably, denies symptoms throughout, and appears labored throughout. Precautions Patient precautions: fall Patient bracing/orthotics: none Weight bearing: no restrictions ASSESSMENT & PLAN Assessment Patient is progressing towards care plan goals. Patient is currently functioning below her prior level of function. Plan Continue with plan of care as previously established until patient goals are met or the patient discharges as decreased activity tolerance, decreased UE strength, decreased functional standing balance, high fall risk, decreased functional cognition, decreased safety awareness, and medical complexity continue to limit patient's occupational performance. Anticipate ongoing OT treatment sessions with specific focus on Toilet transfer/hygiene, LB dressing, standing balance/endurance For ongoing assessment of current treatment plan: chart, goals and treatment plan reviewed. Goals, treatment plan and plan of care frequency remain appropriate. Recommendations Based on OT assessment of patient's ability to complete self-care tasks and their AM-PAC Daily Activity Score, anticipated discharge disposition: penitentiary facility (01/20/25 1538) Rationale: Patient needs daily (weekday) skilled OT services. Anticipate tolerance is limited for intensive or adapted intensive rehab program and extended recovery time needed.. * The final discharge location is determined through physician, case management, and patient/caregiver input along with i nsurance authorization of skilled services when appropriate OT recommended DME and AE upon discharge: To be determined (01/18/25925) No new additional adaptive equipment necessary (01/18/25925) Nursing Staff Mobility Recommendations Recommended daily activity during admission: toileting on BSC, up to chair for meals, and assist x 1 Disposition At start of session, patient found lying in bed At end of session, patient left in bed, call light in reach, phone in reach, bed alarm activated, patient instructed not to get up without staff assistance, staff notified of patient location/events of session, and HOB locked at 30 degrees Further treatment notes and therapeutic goals can be found in Care Plan Notes. If the patient discharges from facility before another therapy visit, this shall serve as therapy discharge summary. Thank you for this referral, Ivana Gamboa Exterior Designer * Care Plan - Morgan Cotter Electrode Turner And Finisher - 01/20/2025 9:35 AM CDT [facility] - Therapy Services Ph. Acute Physical Therapy Treatment 01/20/2025 Room: [address] [place] [address] Name: Tiffany Sexton Age: 74 y.o. Date of : 1950 Insurance: Payor: MEDICARE / Plan: MEDICARE PART A AND B / Product Type: Medicare / Subjective Information Comments: pt agrees to PT session Pain: Refer to Doc. Flowsheet for documented pain levels. Vitals Patient on room air Vital signs stable throughout session Functional Mobility/Treatment Functional Mobility: Scooting: minimal assistance Supine to sit: minimal assistance Sit to stand: moderate assistance Bed to chair: moderate assistance Gait Trainin feet with rolling walker. moderate assistance for steering walker and maintaining upright posture. Deficits affecting function/Deviations noted: slow madeleine, fatigues quickly Patient required verbal cues proper posture, use of UE's in transfers, and foot sequencing Functional exercise: Functional exercise: sit to stand x 2, with moderate assistance verbal cues required to perform exercises correctly Therapeutic exercises: AROM: 1 set/s of 10 repetitions of the following exercises to improve circulation, functional mobility, & strength: sitting: ankle pumps, hip abduction, hip adduction, and long arc quads [facility] Basic Mobility How much help from another person does the patient currently need? Score 1. Turning from your back to your side while in a flat bed without using bedrails? 3 - A little (supervision to min assist) 2. Moving from lying on your back to sitting on the side of a flat bed without using bedrails? 3 - A little (supervision to min assist) 3. Moving to and from a bed to a chair (including a wheelchair)? 2 - A lot (max to mod assist) 4. Standing up from a chair using your arms (e.g., wheelchair, or bedside chair)? 2 - A lot (max tomod assist) 5. Walking in hospital room? 2 - A lot (max to mod assist) 6. Climbing 3-5 steps with a railing? 1 - Total assist or cannot do at all Total score 13/24 0-16 - indicates likely facility discharge 17-24 indicates likely community discharge * scores determined based on patient report, observation or professional expertise Assessment and Plan Functional Progress: Patient is progressing towards the goal(s) for functional strength and mobility. Patient does require skilled PT. Specific focus for next treatment session: gait/LE strengthening. For ongoing assessment of current treatment plan: chart, goals and treatment plan reviewed. Goals, treatment plan and plan of care frequency remain appropriate. Continue with plan of care as previously established until goals met or patient discharges from facility Recommendations Based on PT assessment of and/or progress with physical function, AM-PAC Basic Mobility score, potential for improvement, available home support, participation in therapeutic intervention, tolerance for activity, and safety , anticipated [facility] (01/20/25934). Pt needs daily (weekday) skilled PT services. Anticipate tolerance for an intensive program may be limited and extended recovery time needed. * The final discharge location is determined through physician, case management, and patient/caregiver input along with insurance authorization of skilled services when appropriate PT Recommended DME: To be determined (01/20/25934). Daily activity recommendations: Up with 1 assist Precautions Patient Precautions: Fall Risk Bracing/Orthotics: none Weight Bearing: No Restrictions Education/Training Provided Additional education provided: discharge planning, home exercise program, rehabilitation principles, and safety Learner, method of education, and response to learning listed in Education tab in Epic. Disposition At start of session, patient found lying in bed At end of session, patient left seated in rolling shower chair, call light in reach, phone in reach, COIN WRAPPING MACHINE OPERATOR in room Consent to treatment given by: Patient and Nurse Prior to PT session a thorough chart review was completed, including prior therapy notes, as applicable. Further treatment notes and therapeutic goals can be found in Care Plan Notes. If the patient discharges from the facility before another therapy visit, this shall serve as the therapy discharge summary. Thank you for this referral, Morgan Cotter, [employer]isher CDT * Care Plan - Natali Negrete RN - 01/18/2025 8:50 AM CDT Problem: Discharge Planning Goal: Identify discharge needs upon admission and through discharge Description: Sales Marketing Discharge Planning Expected Discharge Date Jan 19, 2025 Plan Discharge To: Intermediate Facility (01/18/25 0850) Plan Discharge To - Alternate: Home Health Services (01/18/25 0850) Spoke with granddaughter Maame ([phone]), via phone. Discussed SNF vs IPR, provided choice lists for both. Maame will discuss and review list with her Uncle Alex, who is patient's DPOA, as he was unavailable this morning. Discussed Medicare benefits, and co-pay days for SNF, Maame expressed understanding. Maame reports patient was [facility] in [facility] prior to this admission, after her recent surgery. Maame is agreeable with referral being sent to [facility] to find out about co- pay days and costs, and that she will discuss further with her Uncle Alex and review the list. Provided CM contact and availability information. Requested Recent DA 124 code from [facility]. Therapies orders for evals placed yesterday. Updated , CN and Bedside nurse. Addendum @ [phone] granddaughter Maame called back reported her Uncle Alex (patient's DPOA) would like a referral sent to [facility] (sent). Addendum @1221, received message with acceptance from [facility] for SNF, called back and left message for ONIEL FERNANDEZ [phone] requesting info on co-pay days and recent DA 124 code. Addendum @ 6429, Received call back from ONIEL Diana, she provided DA 124 [id number] from previous SNF admit from 12/08-01/04 and confirms patient is in co- pay days for SNF. Referrals Status: Facility Referrals - Pending Follow-up on Referrals Sent: Yes (01/18/25849) Preferred Pharmacy: [facility] - [facility] [address] [facility] - [facility] [address] Patient / Family Communications: Patient/Family Communications: Plan Discharge To Update (01/18/25849) Discharge Plan Agreed Upon: Family member (01/18/25849) Resources Provided: Resource List Given: Care facilities (01/18/25 08) Resource List Given To: Family member (01/12/25 1632) Information Given Concerning: Criteria for rehabilitation;Criteria for (skilled) nursing facility;Criteria for home health (01/18/25849) Transportation Plan: Has discharge transport been arranged?: No (01/18/25849) Follow Up Appointments Scheduled Natali Negrete RN Outcome: Progressing * Advance Care Planning - Kelli Cummings RN - 01/17/2025 10:45 AM CDT Advance Care Planning Inpatient Goals of Care Note Advance Care Planning Reason for Goals of Care Discussion? treatment or care decisions to make Any concern's about patient's ability to participate in the discussion? Yes: patient is A/Ox2-3. Pleasantly confused and not participative in the conversation. Surrogate Decision Maker(s): Primary Emergency Contact: Maame Becerril, Relation: Granddaughter Secondary Emergency Contact: Alex Iglesias, Relation: Son Is the person(s) listed above who you would want to be your trusted decision maker? unable to verify due to patient's mentation but both were listed by patient previously as family contacts Goals of Care Discussion Assess Understanding: - what is your understanding of current clinical condition and chronic medical conditions? - how have the past few months been prior to admission? Discussion was held with son- Alex via phone. Alex said that prior to admission: His mom lives with him, his , his daughter, and his niece. They all help with her care. His mom had been at a SNF to get stronger and then went home. When she went to their home, she was unable to help with any of her care. She used a walker at home to ambulate and was steady. She had been eating less and says that nothing tastes right . Alex said that he understands from the doctor that: His mother has lost a lot of weight She needs to start increasing her PO intake to get the NGT out. Inform: requested permission from Alex- son to provide clinical update Moderate Protein-Calorie Malnutrition Deconditioned Status Patient has lost 62lbs per chart review August 2023 through this admission. Patient has NGT and has self-removed three to four times. NGT is now bridled. Patient is receiving TF at night only to encourage PO intake during the day. NGT is not a permanent solution and a PEG would need to be placed prior to discharge if the patientneeds to continue feeds. Tiffany has not been out of bed this admission because of delirium. Delirium increases her fall risk Progressive mobility with PT/OT could help patient to gain more independence. Nutritional intake must be adequate to improve energy to work with therapies. Goals & Values: - what is important to you? - how do you want to be taken care of? Where do you want to be taken care of? Alex said that it is important for his mother to: Maintain her independence Be with family Spend time at her home Make a Plan: Family is not ready to plan for hospice yet. Progressive Mobility SNF Placement PEG tube placement if needed Family would like the patient to gain more strength and recover from this illness. PT/OT Eval and Treat orders placed. SNF placement recommended to improve functional status Alex agreed to PEG placement as a last resort to improve nutritional status. Specific Treatment and Care Preferences Current active code status order: Full Code Historical code status: Most Recent Code Statuses Not Including Current Date Active Date Inactive Code Status Order ID Comments User Context 11/23/2024 1833 12/08/2024 221 Full Code [id number] Olga Garcia MD Inpatient 11/16/2024 2146 11/23/2024 1833 Default Full Code - Needs Discussion [id number] Claudia Berger MD Inpatient Only showing the last 2 code statuses. Code status update: Active code status is correct, no changes. Further details - Family would like the patient to gain more strength and recover from this illness. PT/OT Eval and Treat orders placed. SNF placement recommended to improve functional status Alex agreed to PEG placement as a last resort to improve nutritional status. Kelli Cummings RN Number of minutes spent performing Advance Care Planning : 30 * Query - Shirley Mccarthy MD - 01/17/2025 9:00 AM CDT Select New Note to answer the query. Question: Clarify a more specific diagnosis and/or underlying cause/type for the patient's altered mental status or confusio Answer: Metabolic Encephalopathy * Care Plan - Smith Aguilar RN - 01/16/2025 5:48 PM CDT Shift Summary metroNIDAZOLE was administered and then stopped during the shift. perflutren (DEFINITY) was administered prior to echocardiogram. Echocardiogram with contrast was completed, providing updated cardiac function information. Nutrition and therapy follow-ups were documented, and a consultation occurred to support ongoing discharge planning. Patient remained in bed, refused some activity and hygiene care, and no falls or injuries were reported. Safety/Fall: Absence of fall, injury, harm during hospitalization: No falls or injuries occurred during the shift, and patient remained in bed with frequent position changes, though some activity andhygiene care were refused. Identify discharge needs upon admission and through discharge: Nutrition and therapy follow-ups were documented, and a consultation occurred to support ongoing discharge planning. Maintain skin integrity and/or promote wound healing by discharge: Patient was agreeable to a bath with CHG but requested to wait until later; no skin breakdown or wound care interventions were documented. Mcfp: Demonstrates ability to control behavior as evidenced by reduction of violence by discharge.: No violent or disruptive behaviors were reported during the shift. * Care Plan - Yin Hogue RN - 01/16/2025 6:52 AM CDT Shift Summary Safety checks were completed regularly,hourly roundings and fall risk was reviewed, with no falls or injuries documented. Skin integrity concerns persisted with excoriation and erythema, and regular repositioning was performed. Overall, comfort was maintained and no pain was reported throughout the shift. Infection Risk/Actual: Infection prevention, control, or resolution by discharge: metroNIDAZOLE wasadministered twice and stopped once during the shift; urine remained clear and yellow, and no signsidentified in the indwelling catheter, with stable temperature and no new symptoms documented. Safety/Fall: Absence of fall, injury, harm during hospitalization: Fall risk was reviewed and agreed upon each assessment, safety checks were completed regularly, and no falls or injuries occurred during the shift. * Care Plan - Yin Hogue RN - 01/15/2025 6:37 AM CDT Shift Summary metroNIDAZOLE was administered twice during the shift to address infection risk. Cohen care with CHG was performed to support skin integrity and infection prevention. Patient was repositioned several times to reduce risk of skin breakdown and promote comfort. Hourly rounding,Fall risk and safety checks were completed, and no falls or injuries occurred during the shift. Patient remained stable with no pain reported and no new complications documented. Infection Risk/Actual: Infection prevention, control, or resolution by discharge: Temperature remained stable and metroNIDAZOLE was administered twice during the shift; hygiene care with CHG was performed and no new symptoms were documented. Safety/Fall: Absence of fall, injury, harm during hospitalization: Fall risk was reviewed and safety checks were completed; patient remained in bed with personal items and call button in reach, and no falls or injuries occurred. * Care Plan - Tomeka Robles RN - 01/13/2025 6:12 AM CDT Shift Summary HYDROmorphone (PF) was given PRN for pain, and comfort assessments indicated the patient was calm and lightly asleep. metroNIDAZOLE was administered and then stopped, and gentamicin (GARAMYCIN) was stopped in the previous department. CHG hygiene and cohen care were completed, with urine output documented as cloudy and straw-colored. Patient was repositioned multiple times and remained in bed with continuous staff presence, with nodocumentation of falls or injuries. Patient maintained comfort and safety throughout the shift. Infection Risk/Actual: Infection prevention, control, or resolution by discharge: CHG hygiene care and cohen care were performed, and metroNIDAZOLE was administered and then stopped during the shift;urine output was documented as cloudy and straw-colored. Safety/Fall: Absence of fall, injury, harm during hospitalization: Patient remained in bed with frequent repositioning and was consistently accompanied by care companions and staff; no documentation of falls or injuries during the shift. * Care Plan - Mariah Iglesias RN - 01/12/2025 2:59 PM CDT Care Management Initial Assessment Initial Discharge Planning Assessment completed. Discussed Care Management's role and Discharge planning. Plan Discharge To: Home Health Services Plan Discharge To - Alternate: Home with family assist Does the patient have family and/or a caregiver that is willing, able and available to assist if needed? Yes - Name/Relation:Virginia Isabel Comments: Tiffany is confused at time of visit, no family at bedside. Sitter present at bedside. Spoke with virginia Isabel via telephone. She reports Tiffany lives at home with her, her father and mother. They help care for Tiffany. She uses a walker for mobility, has BSC, and ostomy supplies. She reports Tiffany was supposed to have HHC arranged but they never came. Family is requesting HHC this admission. Choices were sent via [employer] for her review. Maame reports concerns about Tiffany's recent decrease in PO intake and appetite. They also worry about her recent recurrent hospitalizations. They would also like to discuss her AMS and CT head results. Encouraged discussion with physician. CM team to continue to follow and assist with discharge planning. Patient Discharge Planning Goal: Get her better Patient will potentially discharge to a SNF/NH? No Care Management visited with: Rashel via phone. Prior to admission, patient resides at: friend/relative home. Patient resides in a single story home with 3 stairs to enter. Patient's bedroom and bathroom are located on the same floor. Prior to admission, living arrangements: family/friend. Prior to admission, patient's functional level:requires assistance; uses standard walker for mobility; needs assistance with iADLs: bathing, dressing, toileting, meal preparation, transportation, shopping, running errands, medication management, and housekeeping Community Ambulator: yes Prior to admission, the patient has the following DME? Yes bedside commode- BSC and standard walker Services in the home/community: none Receives hemodialysis? No Emergency contact(s): Extended Emergency Contact Information Primary Emergency Contact: Maame Becerril Mobile Relation: damerrill Secondary Emergency Contact: Alex Iglesias Mobile Relation: Son Prescription coverage: yes Preferred Pharmacy verified: [facility] - [place], [place] - [address] [facility] - [place], [place] - [address] [facility] Insurance coverage verified: Payor: MEDICARE / Plan: MEDICARE PART A AND B / Product Type: Medicare/ Secondary Insurance:N/A Medicaid Status: NA Has VA Benefits: no Employment Status: retired PCP verified as: Non-Staff, Physician Patient has not had a stay at an acute care hospital in the last 30 days. Recent Falls?: Plan for transportation at discharge: Family Care Management contact information provided. Care Management will continue to follow and assist asneeded. documented in this encounter Plan of Treatment Scheduled Referrals Name Type Priority Associated Diagnoses Orde r Schedule AMB REFERRAL TO [facility] Outpatient Referral Routine Acute C. difficile colitis Ordered: 01/31/2025 documented as of this encounter Procedures Procedure Name Priority Date/Time Associated Diagnosis Comments TELEMETRY REPORT 02/01/2025 2:00 AM CDT INFLUENZA A/B, RSV AND COVID-19 PCR PANEL Stat 01/31/2025 12:28 PM CDT INFLUENZA A/B, RSV AND COVID-19 PCR PANEL Stat 01/31/2025 12:28 PM CDT POC GLUCOSE Routine 01/31/2025 12:27 PM CDT DIFFERENTIAL, MANUAL Routine 01/31/2025 10:27 AM CDT CBC WITH DIFFERENTIAL Routine 01/31/2025 10:27 AM CDT POC GLUCOSE Routine 01/31/2025 8:46 AM CDT POC GLUCOSE Routine 01/31/2025 5:16 AM CDT POC GLUCOSE Routine 01/30/2025 4:35 PM CDT EKG 12-LEAD Routine 01/30/2025 3:12 PM CDT POC GLUCOSE Routine 01/30/2025 1:10 PM CDT POC GLUCOSE Routine 01/30/2025 8:56 AM CDT CBC WITH DIFFERENTIAL Routine 01/30/2025 5:18 AM CDT POC GLUCOSE Routine 01/30/2025 2:13 AM CDT POC GLUCOSE Routine 01/29/2025 8:59 PM CDT POC GLUCOSE Routine 01/29/2025 5:31 PM CDT POC GLUCOSE Routine 01/29/2025 11:32 AM CDT POC GLUCOSE Routine 01/29/2025 7:15 AM CDT CBC WITH DIFFERENTIAL Routine 01/29/2025 6:04 AM CDT POC GLUCOSE Routine 01/28/2025 8:37 PM CDT POC GLUCOSE Routine 01/28/2025 4:47 PM CDT POC GLUCOSE Routine 01/28/2025 11:08 AM CDT BASIC METABOLIC PANEL Routine 01/28/2025 5:[address] ABDOMEN PELVIS W CONTRAST Stat 01/27/2025 7:09 PM CDT POC GLUCOSE Routine 01/27/2025 5:17 PM CDT POC GLUCOSE Routine 01/27/2025 11:47 AM CDT POC GLUCOSE Routine 01/27/2025 7:11 AM CDT BASIC METABOLIC PANEL Routine 01/27/2025 6:12 AM CDT POC GLUCOSE Routine 01/27/2025 5:37 AM CDT POC GLUCOSE Routine 01/27/2025 1:09 AM CDT POC GLUCOSE Routine 01/26/2025 8:28 PM CDT POC GLUCOSE Routine 01/26/2025 12:24 PM CDT POC GLUCOSE Routine 01/26/2025 9:05 AM CDT CBC WITHOUT DIFFERENTIAL Routine 01/26/2025 3:50 AM CDT BASIC METABOLIC PANEL Routine 01/26/2025 3:50 AM CDT POC GLUCOSE Routine 01/26/2025 12:21 AM CDT POC GLUCOSE Routine 01/25/2025 9:31 PM CDT POC GLUCOSE Routine 01/25/2025 5:09 PM CDT POC GLUCOSE Routine 01/25/2025 12:21 PM CDT XR VIDEO SWALLOW W SPEECH Routine 01/25/2025 11:25 AM CDT XR CHEST PA OR AP 1 VW Routine 8:15 AM CDT POC GLUCOSE Routine 01/25/2025 5:02 AM CDT CBC WITHOUT DIFFERENTIAL Routine 01/25/2025 4:49 AM CDT MAGNESIUM LEVEL Routine 01/25/2025 4:49 AM CDT BASIC METABOLIC PANEL Routine 01/25/2025 4:49 AM CDT POC GLUCOSE Routine 01/25/2025 2:17 AM CDT POC GLUCOSE Routine 01/24/2025 8:40 PM CDT VITAMIN D 25 HYDROXY Routine 01/24/2025 8:02 PM CDT VANCOMYCIN LEVEL TROUGH Timed Study 01/24/2025 8:02 PM CDT POC GLUCOSE Routine 01/24/2025 5:27 PM CDT POC GLUCOSE Routine 01/24/2025 3:34 PM CDT IR TUBE PLACEMENT Routine 01/24/2025 11: 35 AM CDT POC GLUCOSE Routine 01/24/2025 10:14 AM CDT PROTIME-INR Stat 01/24/2025 7:36 AM CDT POC GLUCOSE Routine 01/24/2025 4:24 AM CDT CBC WITHOUT DIFFERENTIAL Routine 01/24/2025 3:37 AM CDT BASIC METABOLIC PANEL Routine 01/24/2025 3:37 AM CDT POC GLUCOSE Routine 01/23/2025 11:39 PM CDT POC GLUCOSE Routine 01/23/2025 5:41 PM CDT POC GLUCOSE Routine 01/23/2025 11:34 AM CDT CBC WITHOUT DIFFERENTIAL Routine 01/23/2025 9:09 AM CDT POC GLUCOSE Routine 01/23/2025 7:36 AM CDT BASIC METABOLIC PANEL Routine 01/23/2025 6:03 AM CDT POC GLUCOSE Routine 01/23/2025 4:22 AM CDT POC GLUCOSE Routine 01/23/2025 12:04 AM CDT POC GLUCOSE Routine 01/22/2025 9:17 PM CDT POC GLUCOSE Routine 01/22/2025 5:36 PM CDT POC GLUCOSE Routine 01/22/2025 11:40 AM CDT EXTRA TUBE (URINE BOB) Stat 01/22/2025 9:33 AM CDT URINALYSIS W/REFLEX MICROSCOPIC Stat 01/22/2025 9:33 AM CDT POC GLUCOSE Routine 01/22/2025 7:26 AM CDT BASIC METABOLIC PANEL Routine 01/22/2025 5:21 AM CDT POC GLUCOSE Routine 01/22/2025 4:23 AM CDT POC GLUCOSE Routine 01/22/2025 12:44 AM CDT POC GLUCOSE Routine 01/21/2025 8:32 PM CDT LACTIC ACID Stat 01/21/2025 7:57 PM CDT XR ABDOMEN 1 VW Stat 01/21/2025 6:32 PM CDT XR CHEST PA OR AP 1 VW Stat 6:32 PM CDT BLOOD CULTURE Stat 01/21/2025 6:27 PM CDT BLOOD CULTURE Stat 01/21/2025 6:27 PM CDT BLOOD CULTURE Routine 01/21/2025 6:20 PM CDT BLOOD CULTURE Routine 01/21/2025 6:20 PM CDT POC GLUCOSE Routine 01/21/2025 4:53 PM CDT POTASSIUM LEVEL Timed Study 01/21/2025 1:45 PM CDT POC GLUCOSE Routine 01/21/2025 7:40 AM CDT MAGNESIUM LEVEL Routine 01/21/2025 4:25 AM CDT BASIC METABOLIC PANEL Routine 01/21/2025 4:25 AM CDT POC GLUCOSE Routine 01/20/2025 7:17 PM CDT POC GLUCOSE Routine 01/20/2025 11:29 AM CDT POC GLUCOSE Routine 01/20/2025 7:49 AM CDT POC GLUCOSE Routine 01/20/2025 5:26 AM CDT CBC WITHOUT DIFFERENTIAL Routine 01/20/2025 4:43 AM CDT BASIC METABOLIC PANEL Routine 01/20/2025 4:42 AM CDT POC GLUCOSE Routine 01/19/2025 10:49 PM CDT POC GLUCOSE Routine 01/19/2025 5:08 PM CDT POC GLUCOSE Routine 01/19/2025 11:41 AM CDT POC GLUCOSE Routine 01/19/2025 7:30 AM CDT CBC WITHOUT DIFFERENTIAL Routine 01/19/2025 4:44 AM CDT PHOSPHORUS Routine 01/19/2025 4:44 AM CDT MAGNESIUM LEVEL Routine 01/19/2025 4:44 AM CDT BASIC METABOLIC PANEL Routine 01/19/2025 4:44 AM CDT EKG 12-LEAD Stat 01/19/2025 4:14 AM CDT POC GLUCOSE Routine 01/19/2025 4:10 AM CDT POC GLUCOSE Routine 01/18/2025 9:34 PM CDT POC GLUCOSE Routine 01/18/2025 5:21 PM CDT POC GLUCOSE Routine 01/18/2025 11:30 AM CDT POC GLUCOSE Routine 01/18/2025 7:39 AM CDT POC GLUCOSE Routine 01/18/2025 12:52 AM CDT POC GLUCOSE Routine 01/17/2025 9:01 PM CDT POC GLUCOSE Routine 01/17/2025 4:21 PM CDT TELEMETRY REPORT 01/17/2025 2:54 PM CDT POC GLUCOSE Routine 01/17/2025 7:33 AM CDT POC GLUCOSE Routine 01/17/2025 4:00 AM CDT TELEMETRY REPORT 01/17/2025 3:48 AM CDT POC GLUCOSE Routine 01/17/2025 12:19 AM CDT POC GLUCOSE Routine 01/16/2025 8:07 PM CDT POC GLUCOSE Routine 01/16/2025 5:20 PM CDT POC GLUCOSE Routine 01/16/2025 12:00 PM CDT ECHOCARDIOGRAM W/ CONTRAST AGENT Routine 01/16/2025 10:08 AM CDT POC GLUCOSE Routine 01/16/2025 7:20 AM CDT BASIC METABOLIC PANEL Routine 01/16/2025 4:32 AM CDT POC GLUCOSE Routine 01/16/2025 4:30 AM CDT POC GLUCOSE Routine 01/16/2025 12:36 AM CDT POC GLUCOSE Routine 01/15/2025 10:01 PM CDT POC GLUCOSE Routine 01/15/2025 5:12 PM CDT POC GLUCOSE Routine 01/15/2025 8:09 AM CDT MAGNESIUM LEVEL Routine 01/15/2025 4:16 AM CDT BASIC METABOLIC PANEL Routine 01/15/2025 4:16 AM CDT POC GLUCOSE Routine 01/15/2025 4:06 AM CDT POC GLUCOSE Routine 01/15/2025 1:25 AM CDT POC GLUCOSE Routine 01/14/2025 7:59 PM CDT POC GLUCOSE Routine 01/14/2025 4:01 PM CDT POC GLUCOSE Routine 01/14/2025 6:52 AM CDT POC GLUCOSE Routine 01/14/2025 4:15 AM CDT CBC WITH DIFFERENTIAL Routine 01/14/2025 12:59 AM CDT MAGNESIUM LEVEL Stat 01/14/2025 12:59 AM CDT BASIC METABOLIC PANEL Routine 01/14/2025 12:59 AM CDT POC GLUCOSE Routine 01/14/2025 12:56 AM CDT POC GLUCOSE Routine 01/13/2025 8:23 PM CDT POC GLUCOSE Routine 01/13/2025 5:14 PM CDT EKG 12-LEAD Stat 01/13/2025 4:42 PM CDT COMPREHENSIVE METABOLIC PANEL Routine 01/13/2025 1:40 PM CDT POC GLUCOSE Routine 01/13/2025 11:22 AM CDT XR ABDOMEN FOR FEEDING TUBE 1 VW Stat 01/13/2025 10:31 AM CDT POC GLUCOSE Routine 01/13/2025 7:49 AM CDT XR ABDOMEN FOR FEEDING TUBE 1 VW Stat 01/12/2025 9:57 PM CDT XR ABDOMEN FOR FEEDING TUBE 1 VW Stat 01/12/2025 6:35 PM CDT TROPONIN 6 HR, 5TH GEN Timed Study 6:26 PM CDT XR ABDOMEN FOR FEEDING TUBE 1 VW Stat 01/12/2025 4:40 PM CDT TROPONIN 2 HR, 5TH GEN Timed Study 3:25 PM CDT MAGNESIUM LEVEL Stat 01/12/2025 3:25 PM CDT COMPREHENSIVE METABOLIC PANEL Stat 01/12/2025 3:[address] HEAD WO CONTRAST Stat 01/12/2025 2 :13 PM CDT EXTRA TUBE (URINE BOB) Routine 01/12/2025 2:06 PM CDT C. DIFFICILE DETECTION Routine 2:06 PM CDT URINALYSIS W/REFLEX MICROSCOPIC Routine 01/12/2025 2:06 PM CDT TROPONIN BASELINE, 5TH GEN Stat 01/12/2025 1:30 PM CDT CBC WITHOUT DIFFERENTIAL Stat 01/12/2025 1:30 PM CDT TSH Routine 01/12/2025 1:30 PM CDT EKG 12-LEAD Stat 01/12/2025 12:02 PM CDT documented in this encounter Results * TELEMETRY REPORT (02/01/2025 2:00 AM CDT) us Provider Scanning ECG ORDERABLES Final Result * INFLUENZA A/B, RSV AND COVID-19 PCR PANEL (01/31/2025 12:28 PM CDT) COVID-19 PCR NOT DETECTED Not Detected 02/01/20 1:18 PM CDT [facility] Influenza A by PCR NOT DETECTED Not Detected 01/31/2025 1:18 PM CDT [facility] Influenza B by PCR NOT DETECTED Not Detected 01/31/2025 1:18 PM CDT [facility] RSV by PCR NOT DETECTED Not Detected 01/31/2025 1:18 PM CDT [facility] Upper Respiratory ENTIRE NASOPHARYNX / Unknown Collection / Unknown 01/31/2025 12:28 PM CDT 01/31/2025 12:38 PM CDT Narrative [facility] - 01/31/2025 1:18 PM CDT This test has been authorized by the FDA under an Emergency Use Authorization for use by authorized laboratories. This test has been validated in accordance with the FDA's guidance regarding Coronavirus Disease-2019 testing. Optimum specimen types and timing for peak viral levels during infection have not been determined. A negative RT-PCR result does not rule out infection with the 2019-Novel Coronavirus. Lea Green MD MICROBIOLOGY - GENERAL ORDERABLE S Final Result [facility] CLIA # [id number] [address] [place] [address] * (ABNORMAL) POC GLUCOSE (01/31/2025 12:27 PM CDT) [facility] GLUCOSE POC 117(H) 74 - 99 mg/dL 01/31/2025 12:27 [address] [facility] SPECIMEN SOURCE, GLUCOSE POC Capillary 01/31/2025 12:27 PM CDT [facility] Blood, whole 01/31/2025 12:2 7 PM CDT 01/31/2025 12:38 PM CDT Lea Green MD POINT OF CARE TESTING Final Resu lt [facility] CLIA # [id number] [address] [id number] * MANUAL DIFFERENTIAL (01/31/2025 10:27 AM CDT) [facility] PLATELET EST. Adequate 01/31/2025 11:34 AM CDT [facility] ANISOCYTOSIS 2+ /hpf 01/31/2025 11:34 AM CDT [facility] POIKILOCYTES 1+ /hpf 01/31/2025 11:34 AM CDT [facility] POLYCHROMASIA 1+ /hpf 01/31/2025 11:34 AM CDT [facility] Blood Venipuncture / Unknown 01/31/2025 10:27 AM CDT 01/31/2025 11:03 AM CDT Lae Green MD HEMATOLOGY ORDERABLES COM Final Result [facility] CLIA # [id number] [address] [id number] * (ABNORMAL) CBC WITH DIFFERENTIAL (01/31/2025 10:27 AM CDT) [facility] WBC 10.5 4.8 - 10.8 K/uL 01/31/2025 11:34 AM [facility] RBC 3.74(L) 4.20 - 5.40 M/uL 01/31/2025 11:34 AM [facility] HEMOGLOBIN 10.7(L) 12.0 - 16.0 g/dL 01/31/2025 11:34 AM [facility] HEMATOCRIT 33.4(L) 36.0 - 46.0 % 01/31/2025 11:34 AM [facility] MCV 89.3 84.0 - 103.0 fL 01/31/2025 11:34 AM [facility] MCH 28.6 27.0 - 34.0 pg 01/31/2025 11:34 AM [facility] MCHC 32.0 30.0 - 35.0 g/dL 01/31/2025 11:34 AM [facility] PLATELETS 405 140 - 440 K/uL 01/31/2025 11:34 AM [facility] MPV 10.4 8.9 - 12.8 fL 01/31/2025 11:34 AM [facility] RDW 20.0(H) 11.0 - 14.5 % 01/31/2025 11:34 AM [facility] RDW-STDEV 65.2(H) 37.0 - 54.0 fL 01/31/2025 11:34 AM [facility] NEUTROPHILS 72 42 - 75 % 01/31/2025 11:34 AM [facility] LYMPHOCYTES 15(L) 24 - 44 % 01/31/2025 11:34 AM [facility] MONOCYTES 9 2 - 10 % 01/31/2025 11:34 AM [facility] EOSINOPHILS 3 0 - 7 % 01/31/2025 11:34 AM [facility] BASOPHILS 1 0 - 1 % 01/31/2025 11:34 AM [facility] IMMATURE GRANULOCYTES 1 0 - 2 % 01/31/2025 11:34 AM CDT [facility] NEUTROPHIL ABSOLUTE 7.63 2.00 - 8.00 K/uL 01/31/2025 11:34 AM CDT [facility] LYMPHOCYTE ABSOLUTE 1.57 1.20 - 4.00 K/uL 01/31/2025 11:34 AM CDT [facility] MONOCYTE ABSOLUTE 0.89(H) 0.10 - 0.60 K/uL 01/31/2025 11:34 AM CDT [facility] EOSINOPHIL ABSOLUTE 0.33 0.00 - 0.70 K/uL 01/31/2025 11:34 AM T [facility] BASOPHILS ABSOLUTE 0.05 0.00 - 0.20 K/uL 01/31/2025 11:34 AM CDT [facility] IMMATURE GRANULOCYTES ABSOLUTE 0.06 0.00 - 0.10 K/uL 01/31/2025 11:34 AM T [facility] SMEAR REVIEWED: SR - See Smear Review on Manual Diff. 01/31/2025 11:34 AM [facility] Blood Venipuncture / Unknown 01/31/2025 10:27 AM CDT 01/31/2025 11:03 AM CDT us Lea Green MD HEMATOLOGY ORDERABLES Final Resu lt [facility] CLIA # [id number] [address] [place] [address] * (ABNORMAL) POC GLUCOSE (01/31/2025 8:46 AM CDT) GLUCOSE POC 115(H) 74 - 99 mg/dL 01/31/2025 8:46 AM CDT [facility] SPECIMEN SOURCE, GLUCOSE POC Capillary 01/31/2025 8:46 AM T [facility] Blood, whole 01/31/2025 8:46 AM CDT 01/31/2025 8:55 AM CDT Lea Green MD POINT OF CARE TESTING Final Resu lt Performing Organization Address City/[facility]/ZIP Co de Phone Number [facility] CLIA # [id number] [address] [address] * (ABNORMAL) POC GLUCOSE (01/31/2025 5:16 AM CDT) GLUCOSE POC 113(H) 74 - 99 mg/dL 01/31/2025 5:16 AM CDT [facility] SPECIMEN SOURCE, GLUCOSE POC Capillary 01/31/2025 5:16 AM CDT [facility] Blood, whole 01/31/2025 5:16 AM CDT 01/31/2025 5:27 AM CDT Lea Green MD POINT OF CARE TESTING Final Resu lt Performing Organization Address [facility] Co de Phone Number [facility] CLIA # [id number] [address] [address] * (ABNORMAL) POC GLUCOSE (01/30/2025 4:35 PM CDT) GLUCOSE POC 112(H) 74 - 99 mg/dL 01/30/2025 4:35 PM CDT [facility] SPECIMEN SOURCE, GLUCOSE POC Capillary 01/30/2025 4:35 PM CDT [facility] Blood, whole 01/30/2025 4:35 PM CDT 01/30/2025 5:38 PM CDT Lea Green MD POINT OF CARE TESTING Final Resu lt Performing Organization Address City/[facility]/ZIP Co de Phone Number [facility] CLIA # [id number] [address] [place] [address] * EKG 12-LEAD (01/30/2025 3:12 PM CDT) 01/30/2025 3:12 PM CDT Narrative INTERFACE SYSTEM - 02/01/2025 6:39 [place] [address] Test Date: 2025-01-30 Pat Name: TIFFANY SEXTON Department: 12 Room: [address] [place] [address] Gender: Female 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: [id number] : 1950 Requested By: Order Number: [id number] Reading MD: Licha Kowalski Measurements Intervals [place] Rate: 82 P: 63 ID: [id number] QRS: -41 QRSD: 80 T: 79 QT: 420 QTc: 490 Interpretive Statements Normal sinus rhythm Left axis deviation T wave abnormality, consider anterior ischemia Abnormal ECG Electronically Signed On 02-01-2025 18:39:07 CDT by Licha Kowalski Procedure Note Licha Kowalski, - 02/01/2025 [place] [address] Test Date: 2025-01-30 Pat Name: TIFFANY SEXTON Department: 12 Room: [address] [place] [address] Gender: Female 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: [id number] : 1950 Requested By: Order Number: [id number] Willard LANCE: Licha Kowalski Measurements Intervals [place] Rate: 82 P: 63 ID: 170 QRS: -41 QRSD: 80 T: 79 QT: 420 QTc: 490 Interpretive Statements Normal sinus rhythm Left axis deviation T wave abnormality, consider anterior ischemia Abnormal ECG Electronically Signed On 02-01-2025 18:39:07 CDT by Licha Kowalski us Lea Green MD ECG ORDERABLES Final Result INTERFACE SYSTEM Refer to clinic/hospital department * (ABNORMAL) POC GLUCOSE (01/30/2025 1:10 PM CDT) GLUCOSE POC 124(H) 74 - 99 mg/dL 01/30/2025 1:10 PM CDT [facility] SPECIMEN SOURCE, GLUCOSE POC Capillary 01/30/2025 1:10 PM CDT [facility] Blood, whole 01/30/2025 1:10 PM CDT 01/30/2025 1:18 PM CDT Lea Green MD POINT OF CARE TESTING Final Resu lt Performing Organization Address [facility]/ZIP Co de Phone Number [facility] CLIA # [id number] [address] [address] [place], [place] [id number] * (ABNORMAL) POC GLUCOSE (01/30/2025 8:56 AM CDT) Pathologist [facility] GLUCOSE POC 133(H) 74 - 99 mg/dL 01/30/2025 8:56 AM CDT [facility] SPECIMEN SOURCE, GLUCOSE POC Capillary 01/30/2025 8:56 AM CDT [facility] Blood, whole 01/30/2025 8:56 AM CDT 01/30/2025 9:19 AM CDT Lea Green MD POINT OF CARE TESTING Final Resu lt Performing Organization Address City/[facility]/ZIP Co de Phone Number [facility] CLIA # [id number] [address] [id number] * (ABNORMAL) CBC WITH DIFFERENTIAL (01/30/2025 5:18 AM CDT) WBC 8.2 4.8 - 10.8 K/uL 01/30/2025 6:17 AM CDT [facility] RBC 3.54(L) 4.20 - 5.40 M/uL 01/30/2025 6:17 AM [facility] HEMOGLOBIN 10.1(L) 12.0 - 16.0 g/dL 01/30/2025 6:17 AM [facility] HEMATOCRIT 31.1(L) 36.0 - 46.0 % 01/30/2025 6:17 AM [facility] MCV 87.9 84.0 - 103.0 fL 01/30/2025 6:17 AM [facility] MCH 28.5 27.0 - 34.0 pg 01/30/2025 6:17 AM [facility] MCHC 32.5 30.0 - 35.0 g/dL 01/30/2025 6:17 AM [facility] PLATELETS 403 140 - 440 K/uL 01/30/2025 6:17 AM [facility] MPV 9.6 8.9 - 12.8 fL 01/30/2025 6:17 AM [facility] RDW 20.0(H) 11.0 - 14.5 % 01/30/2025 6:17 AM [facility] RDW-STDEV 64.3(H) 37.0 - 54.0 fL 01/30/2025 6:17 AM [facility] NEUTROPHILS 65 42 - 75 % 01/30/2025 6:17 AM [facility] LYMPHOCYTES 18(L) 24 - 44 % 01/30/2025 6:17 AM [facility] MONOCYTES 11(H) 2 - 10 % 01/30/2025 6:17 AM [facility] EOSINOPHILS 5 0 - 7 % 01/30/2025 6:17 AM [facility] BASOPHILS 0 0 - 1 % 01/30/2025 6:17 AM [facility] IMMATURE GRANULOCYTES 1 0 - 2 % 01/30/2025 6:17 AM [facility] NEUTROPHIL ABSOLUTE 5.31 2.00 - 8.00 K/uL 01/30/2025 6:17 AM CDT [facility] LYMPHOCYTE ABSOLUTE 1.44 1.20 - 4.00 K/uL 01/30/2025 6:17 AM CDT [facility] MONOCYTE ABSOLUTE 0.89(H) 0.10 - 0.60 K/uL 01/30/2025 6:17 AM CDT [facility] EOSINOPHIL ABSOLUTE 0.43 0.00 - 0.70 K/uL 01/30/2025 6:17 AM CDT [facility] BASOPHILS ABSOLUTE 0.03 0.00 - 0.20 K/uL 01/30/2025 6:17 AM CDT [facility] IMMATURE GRANULOCYTES ABSOLUTE 0.07 0.00 - 0.10 K/uL 01/30/2025 6:17 AM CDT [facility] SMEAR REVIEWED: NN - No Action Needed 01/30/2025 6:17 AM CDT [facility] Blood Venipuncture / Unknown 01/30/2025 5:18 AM CDT 01/30/2025 5:25 AM CDT us Lea Green MD HEMATOLOGY ORDERABLES Final Resu lt [facility] CLIA # [id number] [address] [place] [address] * (ABNORMAL) POC GLUCOSE (01/30/2025 2:13 AM CDT) GLUCOSE POC 116(H) 74 - 99 mg/dL 01/30/2025 2:13 AM CDT [facility] SPECIMEN SOURCE, GLUCOSE POC Capillary 01/30/2025 2:13 AM CDT [facility] Blood, whole 01/30/2025 2:13 AM CDT 01/30/2025 2:21 AM CDT us Lea Green MD POINT OF CARE TESTING Final Resu lt [facility] CLIA # [id number] [address] [address] [place], [place] [address] * (ABNORMAL) POC GLUCOSE (01/29/2025 8:59 PM CDT) GLUCOSE POC 117(H) 74 - 99 mg/dL 01/29/2025 8:59 PM CDT [facility] SPECIMEN SOURCE, GLUCOSE POC Capillary 01/29/2025 8:59 PM CDT [facility] Blood, whole 01/29/2025 8:59 PM CDT 01/29/2025 9:30 PM CDT Lea Green MD POINT OF CARE TESTING Final Resu lt Performing Organization Address City/[facility]/ZIP Co de Phone Number [facility] CLIA # [id number] [address] [address] [place] [address] * (ABNORMAL) POC GLUCOSE (01/29/2025 5:31 PM CDT) [employer] [facility] GLUCOSE POC 138(H) 74 - 99 mg/dL 01/29/2025 5:31 PM CDT [facility] SPECIMEN SOURCE, GLUCOSE POC Capillary 01/29/2025 5:31 PM CDT [facility] Blood, whole 01/29/2025 5:31 PM CDT 01/29/2025 5:39 PM CDT Lea Green MD POINT OF CARE TESTING Final Resu lt [facility] CLIA # [id number] [address] [address] [place] [address] * (ABNORMAL) POC GLUCOSE (01/29/2025 11:32 AM CDT) GLUCOSE POC 142(H) 74 - 99 mg/dL 01/29/2025 11:32 AM CDT [facility] SPECIMEN SOURCE, GLUCOSE POC Capillary 01/29/2025 11:32 AM CDT [facility] Blood, whole 01/29/2025 11:3 2 AM CDT 01/29/2025 12:03 PM CDT Lea Green MD POINT OF CARE TESTING Final Resu lt Performing Organization Address [facility]/ZIP Co de Phone Number [facility] CLIA # [id number] [address] [id number] * (ABNORMAL) POC GLUCOSE (01/29/2025 7:15 AM CDT) GLUCOSE POC 125(H) 74 - 99 mg/dL 01/29/2025 7:15 AM CDT [facility] SPECIMEN SOURCE, GLUCOSE POC Capillary 01/29/2025 7:15 AM CDT [facility] Blood, whole 01/29/2025 7:15 AM CDT 01/29/2025 7:24 AM CDT Lea Green MD POINT OF CARE TESTING Final Resu lt Performing Organization Address [facility]/ZIP Co de Phone Number [facility] CLIA # [id number] [address] [address] * (ABNORMAL) CBC WITH DIFFERENTIAL (01/29/2025 6:04 AM CDT) Pathologist [facility] WBC 10.7 4.8 - 10.8 K/uL 01/29/2025 6:24 AM CDT [facility] RBC 3.59(L) 4.20 - 5.40 M/uL 01/29/2025 6:24 AM CDT [facility] HEMOGLOBIN 10.2(L) 12.0 - 16.0 g/dL 01/29/2025 6:24 AM [facility] HEMATOCRIT 31.2(L) 36.0 - 46.0 % 01/29/2025 6:24 AM [facility] MCV 86.9 84.0 - 103.0 fL 01/29/2025 6:24 AM [facility] MCH 28.4 27.0 - 34.0 pg 01/29/2025 6:24 AM [facility] MCHC 32.7 30.0 - 35.0 g/dL 01/29/2025 6:24 AM [facility] PLATELETS 430 140 - 440 K/uL 01/29/2025 6:24 AM [facility] MPV 9.8 8.9 - 12.8 fL 01/29/2025 6:24 AM [facility] RDW 19.9(H) 11.0 - 14.5 % 01/29/2025 6:24 AM [facility] RDW-STDEV 63.0(H) 37.0 - 54.0 fL 01/29/2025 6:24 AM [facility] NEUTROPHILS 76(H) 42 - 75 % 01/29/2025 6:24 AM [facility] LYMPHOCYTES 13(L) 24 - 44 % 01/29/2025 6:24 AM [facility] MONOCYTES 7 2 - 10 % 01/29/2025 6:24 AM [facility] EOSINOPHILS 4 0 - 7 % 01/29/2025 6:24 AM [facility] BASOPHILS 0 0 - 1 % 01/29/2025 6:24 AM [facility] IMMATURE GRANULOCYTES 1 0 - 2 % 01/29/2025 6:24 AM [facility] NEUTROPHIL ABSOLUTE 8.12(H) 2.00 - 8.00 K/uL 01/29/2025 6:24 AM [facility] LYMPHOCYTE ABSOLUTE 1.40 1.20 - 4.00 K/uL 01/29/2025 6:24 AM CDT [facility] MONOCYTE ABSOLUTE 0.73(H) 0.10 - 0.60 K/uL 01/29/2025 6:24 AM CDT [facility] EOSINOPHIL ABSOLUTE 0.40 0.00 - 0.70 K/uL 01/29/2025 6:24 AM CDT [facility] BASOPHILS ABSOLUTE 0.04 0.00 - 0.20 K/uL 01/29/2025 6:24 AM CDT [facility] IMMATURE GRANULOCYTES ABSOLUTE 0.05 0.00 - 0.10 K/uL 01/29/2025 6:24 AM CDT [facility] SMEAR REVIEWED: NN - No Action Needed 01/29/2025 6:24 AM CDT [facility] Blood Venipuncture / Unknown 01/29/2025 6:04 AM CDT 01/29/2025 6:15 AM CDT us Lea Green MD HEMATOLOGY ORDERABLES Final Resu lt [facility] CLIA # [id number] [address] [place] [address] * (ABNORMAL) POC GLUCOSE (01/28/2025 8:37 PM CDT) GLUCOSE POC 102(H) 74 - 99 mg/dL 01/28/2025 8:37 PM CDT [facility] SPECIMEN SOURCE, GLUCOSE POC Capillary 01/28/2025 8:37 PM CDT [facility] Blood, whole 01/28/2025 8:37 PM CDT 01/28/2025 9:13 PM CDT Lea Green MD POINT OF CARE TESTING Final Resu lt [facility] CLIA # [id number] [address] [id number] [place] [address] * (ABNORMAL) POC GLUCOSE (01/28/2025 4:47 PM CDT) GLUCOSE POC 106(H) 74 - 99 mg/dL 01/28/2025 4:47 PM CDT [facility] SPECIMEN SOURCE, GLUCOSE POC Capillary 01/28/2025 4:47 PM CDT [facility] Blood, whole 01/28/2025 4:47 PM CDT 01/28/2025 4:55 PM CDT Lea Green MD POINT OF CARE TESTING Final Resu lt [facility] CLIA # [id number] [address] [address] [place] [address] * POC GLUCOSE (01/28/2025 11:08 AM CDT) GLUCOSE POC 94 74 - 99 mg/dL 01/28/2025 11:08 AM CDT [facility] SPECIMEN SOURCE, GLUCOSE POC Capillary 01/28/2025 11:08 AM CDT [facility] Blood, whole 01/28/2025 11:0 8 AM CDT 01/28/2025 11:22 AM CDT Lea Green MD POINT OF CARE TESTING Final Resu lt [facility] CLIA # [id number] [address] [address] * (ABNORMAL) BASIC METABOLIC PANEL (01/28/2025 5:05 AM CDT) SODIUM 142 136 - 145 mmol/L 01/28/2025 6:19 AM [facility] POTASSIUM 3.9 3.5 - 5.1 mmol/L 01/28/2025 6:19 AM [facility] CHLORIDE 103 98 - 107 mmol/L 01/28/2025 6:19 AM [facility] CO2 26 22 - 29 mmol/L 01/28/2025 6:19 AM [facility] CALCIUM 9.2 8.8 - 10.2 mg/dL 01/28/2025 6:19 AM [facility] BUN 10 8 - 23 mg/dL 01/28/2025 6:19 AM [facility] CREATININE 0.40(L) 0.51 - 0.95 mg/dL 01/28/2025 6:19 AM [facility] Comment:The GFR result is no t clinically significant on patients <18 or >70 years of age. GLUCOSE 118(H) 74 - 99 mg/dL 01/28/2025 6:19 AM [facility] GFR >60 mL/min/1. 73 sq meter 01/28/2025 6:19 AM [facility] Comment:eGFR calculated with 2020 CKD-EPI equation. Vegetarian diet, extremely high or low muscle mass, and may affect results. Cystatin C with Glomerular Filtration Rate is a suitable alternative for these patients. ANION GAP 13 9 - 20 mmol/L 01/28/2025 6:19 AM [facility] Blood Venipuncture / Unknown 01/28/2025 5:05 AM CDT 01/28/2025 5:45 AM CDT us Lea Green MD CHEMISTRY ORDERABLES Final Resul t [facility] CLIA # [id number] [facility] [address] * CT ABDOMEN PELVIS W CONTRAST (01/27/2025 7:09 PM CDT) Anatomical Region Laterality Modality Abdomen Computed Tomogra phy 01/27/2025 6:58 PM CDT Impressions 01/28/2025 9:32 AM CDT IMPRESSION: 1. Patient has had a recent PEG tube catheter placement on 01/24/25, there is trace free intraperitoneal gas with some stranding within the omentum which is likely related to recent PEG tube catheter placement. No evidence of abscess or complication related to PEG tube catheter. 2. Generalized volume overload with new trace right and small pleural fluid collections as well as body wall edema. 3. Ostomy of the left intra-abdominal wall suggesting cutaneous thickening and subcutaneous stranding, this could represent nonspecific inflammation without evidence of abscess. Clinical correlation recommended to exclude cellulitis. 4. No bowel obstruction or bowel inflammation. Liquid stool throughout the colon can represent sequela of malabsorption or diarrheal disease. Narrative 01/28/2025 9:32 AM CDT Exam: CT ABDOMEN PELVIS W CONTRAST Date/Time of Exam: 01/27/2025 7:09 PM Reason For Exam: Abdominal pain, acute, nonlocalized Diagnosis: See Reason for Exam Technique: CT of the abdomen and pelvis was performed following the administration of intravenous contrast. Contrast: IOPAMIDOL 61 % INTRAVENOUS SOLUTION (MULTI-DOSE BULK PACK) Given:75 mL WITHOUT ORAL CONTRAST. Comparison: CT abdomen pelvis 11/05/24 ABDOMEN/PELVIS: There is a new small left and trace right pleural fluid collection associated compressive atelectasis. Normal size liver. Smooth hepatic contour. No concerning hepatic lesions. The gallbladder is surgically absent. No biliary ductal dilatation or choledocholithiasis. Portal venous system is well-opacified. Pancreas is unremarkable. No pancreatic ductal dilatation, mass or inflammation. Spleen is unremarkable. Small rim calcified splenic artery aneurysm measures 9 x 11 mm similar to prior exam. Bilateral adrenal glands are unremarkable. Right kidney is normal in size. No hydronephrosis. No nephrolithiasis. No concerning renal lesions. Left kidney is normal in size. No hydronephrosis. No nephrolithiasis. No concerning left renal lesions. Urinary bladder demonstrates no acute findings. The pelvic visceral structures demonstrate no acute findings. Uterus surgically absent. Bilateral adnexa unremarkable. Aorta is normal in caliber. IVC unremarkable. No pathologically enlarged lymph nodes. There is a recent PEG tube catheter placement 01/24/25. There is trace free intraperitoneal gas along the anterior left lobe liver with additional mild stranding within the omentum which is likely related to recent PEG tube catheter placement. No loculated fluid collections. The bulb of the PEG tube catheter appears inflated within the lumen of the stomach and closely approximates wall the stomach. No drainable fluid collection seen along the course of the catheter or within the abdominal wall. Previous partial colectomy with end ostomy of the left intra-abdominal wall. There is mild body wall edema with asymmetric cutaneous thickening of the left abdominal wall near the ostomy without subcutaneous gas or abscess. No parastomal hernia. There is more focal subcutaneous stranding left lateral abdominal wall (series 3 image 210) measuring 1.5 cm without associated drainable collection, this likely represents represent injection site. Additional similar-appearing injection sites are seen on along the right anterior abdominal wall. Overall the stomach, duodenal sweep, small normal in caliber without obstruction or inflammation. The colon is normal in caliber without obstruction or inflammation. There is liquid stool throughout the colon which is nonspecific. No evidence of appendicitis. No acute osseous findings. Procedure Note Norman Sandoval MD - 01/28/2025 Exam: CT ABDOMEN PELVIS W CONTRAST Date/Time of Exam: 01/27/2025 7:09 PM Reason For Exam: Abdominal pain, acute, nonlocalized Diagnosis: See Reason for Exam Technique: CT of the abdomen and pelvis was performed following the administration of intravenous contrast. Contrast: IOPAMIDOL 61 % INTRAVENOUS SOLUTION (MULTI-DOSE BULK PACK) Given:75 mL WITHOUT ORAL CONTRAST. Comparison: CT abdomen pelvis 11/05/24 ABDOMEN/PELVIS: There is a new small left and trace right pleural fluid collection associated compressive atelectasis. Normal size liver. Smooth hepatic contour. No concerning hepatic lesions. The gallbladder is surgically absent. No biliary ductal dilatation or choledocholithiasis. Portal venous system is well-opacified. Pancreas is unremarkable. No pancreatic ductal dilatation, mass or inflammation. Spleen is unremarkable. Small rim calcified splenic artery aneurysm measures 9 x 11 mm similar to prior exam. Bilateral adrenal glands are unremarkable. Right kidney is normal in size. No hydronephrosis. No nephrolithiasis. No concerning renal lesions. Left kidney is normal in size. No hydronephrosis. No nephrolithiasis. No concerning left renal lesions. Urinary bladder demonstrates no acute findings. The pelvic visceral structures demonstrate no acute findings. Uterus surgically absent. Bilateral adnexa unremarkable. Aorta is normal in caliber. IVC unremarkable. No pathologically enlarged lymph nodes. There is a recent PEG tube catheter placement 01/24/25. There is trace free intraperitoneal gas along the anterior left lobe liver with additional mild stranding within the omentum which is likely related to recent PEG tube catheter placement. No loculated fluid collections. The bulb of the PEG tube catheter appears inflated within the lumen of the stomach and closely approximates wall the stomach. No drainable fluid collection seen along the course of the catheter or within the abdominal wall. Previous partial colectomy with end ostomy of the left intra-abdominal wall. There is mild body wall edema with asymmetric cutaneous thickening of the left abdominal wall near the ostomy without subcutaneous gas or abscess. No parastomal hernia. There is more focal subcutaneous stranding left lateral abdominal wall (series 3 image 210) measuring 1.5 cm without associated drainable collection, this likely represents represent injection site. Additional similar-appearing injection sites are seen on along the right anterior abdominal wall. Overall the stomach, duodenal sweep, small normal in caliber without obstruction or inflammation. The colon is normal in caliber without obstruction or inflammation. There is liquid stool throughout the colon which is nonspecific. No evidence of appendicitis. No acute osseous findings. IMPRESSION: 1. Patient has had a recent PEG tube catheter placement on 01/24/25, there is trace free intraperitoneal gas with some stranding within the omentum which is likely related to recent PEG tube catheter placement. No evidence of abscess or complication related to PEG tube catheter. 2. Generalized volume overload with new trace right and small pleural fluid collections as well as body wall edema. 3. Ostomy of the left intra-abdominal wall suggesting cutaneous thickening and subcutaneous stranding, this could represent nonspecific inflammation without evidence of abscess. Clinical correlation recommended to exclude cellulitis. 4. No bowel obstruction or bowel inflammation. Liquid stool throughout the colon can represent sequela of malabsorption or diarrheal disease. Lea Green MD CT ORDERABLES Final Result * (ABNORMAL) POC GLUCOSE (01/27/2025 5:17 PM CDT) GLUCOSE POC 123(H) 74 - 99 mg/dL 01/27/2025 5:17 PM CDT [facility] SPECIMEN SOURCE, GLUCOSE POC Capillary 01/27/2025 5:17 PM CDT [facility] Blood, whole 01/27/2025 5:17 PM CDT 01/27/2025 5:24 PM CDT Lea Green MD POINT OF CARE TESTING Final Resu lt Performing Organization Address [facility]/ZIP Co de Phone Number [facility] CLIA # [id number] [address] [address] * (ABNORMAL) POC GLUCOSE (01/27/2025 11:47 AM CDT) GLUCOSE POC 136(H) 74 - 99 mg/dL 01/27/2025 11:47 AM CDT [facility] SPECIMEN SOURCE, GLUCOSE POC Capillary 01/27/2025 11:47 AM CDT [facility] Blood, whole 01/27/2025 11:4 7 AM CDT 01/27/2025 11:59 AM CDT Lea Green MD POINT OF CARE TESTING Final Resu lt Performing Organization Address [facility] Co de Phone Number [facility] CLIA # [id number] [address] [address] * (ABNORMAL) POC GLUCOSE (01/27/2025 7:11 AM CDT) GLUCOSE POC 131(H) 74 - 99 mg/dL 01/27/2025 7:11 AM CDT [facility] SPECIMEN SOURCE, GLUCOSE POC Capillary 01/27/2025 7:11 AM CDT [facility] COMMENT, GLU POC Read Back 01/27/2025 7:11 AM CDT [facility] Blood, whole 01/27/2025 7:11 AM CDT 01/27/2025 7:22 AM CDT us Lea Green MD POINT OF CARE TESTING Final Resu lt [facility] DAVID # [id number] [facility] [address] * (ABNORMAL) BASIC METABOLIC PANEL (01/27/2025 6:12 AM CDT) Pathologist [facility] SODIUM 142 136 - 145 mmol/L 01/27/2025 7:11 AM T [facility] POTASSIUM 3.8 3.5 - 5.1 mmol/L 01/27/2025 7:11 AM T [facility] CHLORIDE 105 98 - 107 mmol/L 01/27/2025 7:11 AM T [facility] CO2 28 22 - 29 mmol/L 01/27/2025 7:11 AM T [facility] CALCIUM 9.0 8.8 - 10.2 mg/dL 01/27/2025 7:11 AM T [facility] BUN 8 8 - 23 mg/dL 01/27/2025 7:11 AM T [facility] CREATININE 0.42(L) 0.51 - 0.95 mg/dL 01/27/2025 7:11 AM T [facility] Comment:The GFR result is no t clinically significant on patients <18 or >70 years of age. GLUCOSE 146(H) 74 - 99 mg/dL 01/27/2025 7:11 AM [facility] GFR >60 mL/min/1. 73 sq meter 01/27/2025 7:11 AM [facility] Comment:eGFR calculated with 2020 CKD-EPI equation. Vegetarian diet, extremely high or low muscle mass, and may affect results. Cystatin C with Glomerular Filtration Rate is a suitable alternative for these patients. ANION GAP 9 9 - 20 mmol/L 01/27/2025 7:11 AM CDT [facility] Blood Venipuncture / Unknown 01/27/2025 6:12 AM CDT 01/27/2025 6:27 AM CDT Lea Green MD CHEMISTRY ORDERABLES Final Resul t Performing Organization Address [facility] Co de Phone Number [facility] CLIA # [id number] [address] [address] * (ABNORMAL) POC GLUCOSE (01/27/2025 5:37 AM CDT) GLUCOSE POC 138(H) 74 - 99 mg/dL 01/27/2025 5:37 AM CDT [facility] SPECIMEN SOURCE, GLUCOSE POC Capillary 01/27/2025 5:37 AM CDT [facility] Blood, whole 01/27/2025 5:37 AM CDT 01/27/2025 5:45 AM CDT Lea Green MD POINT OF CARE TESTING Final Resu lt Performing Organization Address [facility] Co de Phone Number [facility] CLIA # [id number] [address] [address] * (ABNORMAL) POC GLUCOSE (01/27/2025 1:09 AM CDT) GLUCOSE POC 114(H) 74 - 99 mg/dL 01/27/2025 1:09 AM CDT [facility] SPECIMEN SOURCE, GLUCOSE POC Capillary 01/27/2025 1:09 AM CDT [facility] Blood, whole 01/27/2025 1:09 AM CDT 01/27/2025 1:16 AM CDT us Lea Green MD POINT OF CARE TESTING Final Resu lt Performing Organization Address [facility] Co de Phone Number [facility] CLIA # [id number] [address] [address] [place] [address] * (ABNORMAL) POC GLUCOSE (01/26/2025 8:28 PM CDT) GLUCOSE POC 114(H) 74 - 99 mg/dL 01/26/2025 8:28 PM CDT [facility] SPECIMEN SOURCE, GLUCOSE POC Capillary 01/26/2025 8:28 PM CDT [facility] Blood, whole 01/26/2025 8:28 PM CDT 01/26/2025 8:36 PM CDT Lea Green MD POINT OF CARE TESTING Final Resu lt Performing Organization Address [facility] de Phone Number [facility] CLIA # [id number] [address] [address] [place] [address] * (ABNORMAL) POC GLUCOSE (01/26/2025 12:24 PM CDT) GLUCOSE POC 120(H) 74 - 99 mg/dL 01/26/2025 12:24 PM CDT [facility] SPECIMEN SOURCE, GLUCOSE POC Capillary 01/26/2025 12:24 PM CDT [facility] Blood, whole 01/26/2025 12:2 4 PM CDT 01/26/2025 12:44 PM CDT Lea Green MD POINT OF CARE TESTING Final Resu lt Performing Organization Address [facility] Co de Phone Number [facility] CLIA # [id number] [address] [facility] [place] [address] * (ABNORMAL) POC GLUCOSE (01/26/2025 9:05 AM CDT) GLUCOSE POC 131(H) 74 - 99 mg/dL 01/26/2025 9:05 AM T [facility] SPECIMEN SOURCE, GLUCOSE POC Capillary 01/26/2025 9:05 AM T [facility] Blood, whole 01/26/2025 9:05 AM CDT 01/26/2025 9:14 AM CDT us Lea Green MD POINT OF CARE TESTING Final Resu lt [facility] CLIA # [id number] [address] [place] [address] * (ABNORMAL) BASIC METABOLIC PANEL (01/26/2025 3:50 AM CDT) Pathologist [facility] SODIUM 143 136 - 145 mmol/L 01/26/2025 4:38 AM T [facility] POTASSIUM 3.2(L) 3.5 - 5.1 mmol/L 01/26/2025 4:38 AM T [facility] CHLORIDE 106 98 - 107 mmol/L 01/26/2025 4:38 AM [facility] CO2 26 22 - 29 mmol/L 01/26/2025 4:38 AM T [facility] CALCIUM 8.8 8.8 - 10.2 mg/dL 01/26/2025 4:38 AM T [facility] BUN 6(L) 8 - 23 mg/dL 01/26/2025 4:38 AM [facility] CREATININE 0.44(L) 0.51 - 0.95 mg/dL 01/26/2025 4:38 AM T [facility] Comment:The GFR result is no t clinically significant on patients <18 or >70 years of age. GLUCOSE 123(H) 74 - 99 mg/dL 01/26/2025 4:38 AM [facility] GFR >60 mL/min/1. 73 sq meter 01/26/2025 4:38 AM CDT [facility] Comment:eGFR calculated with 2020 CKD-EPI equation. Vegetarian diet, extremely high or low muscle mass, and may affect results. Cystatin C with Glomerular Filtration Rate is a suitable alternative for these patients. ANION GAP 11 9 - 20 mmol/L 01/26/2025 4:38 AM CDT [facility] Blood Venipuncture / Unknown 01/26/2025 3:50 AM CDT 01/26/2025 4:06 AM CDT us Erendira Jackson MD CHEMISTRY ORDERABLES Fin al Result [facility] CLIA # [id number] [address] [place] [address] * (ABNORMAL) CBC WITHOUT DIFFERENTIAL (01/26/2025 3:50 AM CDT) WBC 5.8 4.8 - 10.8 K/uL 01/26/2025 4:17 AM CDT [facility] RBC 3.48(L) 4.20 - 5.40 M/uL 01/26/2025 4:17 AM CDT [facility] HEMOGLOBIN 9.7(L) 12.0 - 16.0 g/dL 01/26/2025 4:17 AM CDT [facility] HEMATOCRIT 30.8(L) 36.0 - 46.0 % 01/26/2025 4:17 AM CDT [facility] MCV 88.5 84.0 - 103.0 fL 01/26/2025 4:17 AM CDT [facility] MCH 27.9 27.0 - 34.0 pg 01/26/2025 4:17 AM CDT [facility] MCHC 31.5 30.0 - 35.0 g/dL 01/26/2025 4:17 AM CDT [facility] PLATELETS 357 140 - 440 K/uL 01/26/2025 4:17 AM CDT [facility] MPV 10.3 8.9 - 12.8 fL 01/26/2025 4:17 AM CDT [facility] RDW 20.2(H) 11.0 - 14.5 % 01/26/2025 4:17 AM CDT [facility] RDW-STDEV 64.8(H) 37.0 - 54.0 fL 01/26/2025 4:17 AM CDT [facility] Blood Venipuncture / Unknown 01/26/2025 3:50 AM CDT 01/26/2025 4:06 AM CDT us Erendira Jackson MD HEMATOLOGY ORDERABLES Fi nal Result Performing Organization Address [facility] Co de Phone Number [facility] CLIA # [id number] [address] [address] * (ABNORMAL) POC GLUCOSE (01/26/2025 12:21 AM CDT) GLUCOSE POC 127(H) 74 - 99 mg/dL 01/26/2025 12:21 AM CDT [facility] SPECIMEN SOURCE, GLUCOSE POC Capillary 01/26/2025 12:21 AM CDT [facility] Blood, whole 01/26/2025 12:2 1 AM CDT 01/26/2025 12:30 AM CDT us Lea Green MD POINT OF CARE TESTING Final Resu lt Performing Organization Address City/[facility]/ZIP Co de Phone Number [facility] CLIA # [id number] [address] [address] * (ABNORMAL) POC GLUCOSE (01/25/2025 9:31 PM CDT) GLUCOSE POC 142(H) 74 - 99 mg/dL 01/25/2025 9:31 PM CDT [facility] SPECIMEN SOURCE, GLUCOSE POC Capillary 01/25/2025 9:31 PM CDT [facility] Blood, whole 01/25/2025 9:31 PM CDT 01/26/2025 12:30 AM CDT Lea Green MD POINT OF CARE TESTING Final Resu lt Performing Organization Address City/[facility]/ZIP Co de Phone Number [facility] CLIA # [id number] [address] [id number] * (ABNORMAL) POC GLUCOSE (01/25/2025 5:09 PM CDT) GLUCOSE POC 103(H) 74 - 99 mg/dL 01/25/2025 5:09 PM CDT [facility] SPECIMEN SOURCE, GLUCOSE POC Capillary 01/25/2025 5:09 PM CDT [facility] Blood, whole 01/25/2025 5:09 PM CDT 01/25/2025 6:27 PM CDT Lea Green MD POINT OF CARE TESTING Final Resu lt Performing Organization Address [facility]/ZIP Co de Phone Number [facility] CLIA # [id number] [address] [address] * (ABNORMAL) POC GLUCOSE (01/25/2025 12:21 PM CDT) GLUCOSE POC 127(H) 74 - 99 mg/dL 01/25/2025 12:21 PM CDT [facility] SPECIMEN SOURCE, GLUCOSE POC Capillary 01/25/2025 12:21 PM CDT [facility] Blood, whole 01/25/2025 12:2 1 PM CDT 01/25/2025 12:30 PM CDT Lea Green MD POINT OF CARE TESTING Final Resu lt [facility] DAVID # [id number] [id number] [place] [address] * XR VIDEO SWALLOW W SPEECH (01/25/2025 11:25 AM CDT) Anatomical Region Laterality Modality Chest Computed Radiogr aphy 01/25/2025 11:2 5 AM CDT Impressions 01/25/2025 12:45 PM CDT IMPRESSION: Please see below. Exam: XR VIDEO SWALLOW W SPEECH Date/Time of Exam: 01/25/2025 11:25 AM Reason For Exam: Difficulty Swallowing. This procedure was performed and preliminary findings dictated by Ilya Fulton PA-C. Supervision and final interpretation by Dr. Juan. Fluoroscopy was used for performance of video swallow study. The patient was given multiple consistencies of contrast material. The cervical esophagus is patent without stricture or obstruction. Airway penetration and aspiration. Retrograde opacification of the nasopharynx. 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 For further details regarding swallowing, please see detailed speech pathology report. Narrative Procedure Note Marcelo Juan MD - 01/25/2025 IMPRESSION: Please see below. Exam: XR VIDEO SWALLOW W SPEECH Date/Time of Exam: 01/25/2025 11:25 AM Reason For Exam: Difficulty Swallowing. This procedure was performed and preliminary findings dictated by Ilya Fulton PA-C. Supervision and final interpretation by Dr. Juan. Fluoroscopy was used for performance of video swallow study. The patient was given multiple consistencies of contrast material. The cervical esophagus is patent without stricture or obstruction. Airway penetration and aspiration. Retrograde opacification of the nasopharynx. 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 For further details regarding swallowing, please see detailed speech pathology report. us Erendira Jackson MD DIAGNOSTIC IMAGING ORDER KARON Final Result * XR CHEST PA OR AP 1 VW (01/25/2025 8:15 AM CDT) Anatomical Region Laterality Modality Chest Computed Radiogr aphy 01/25/2025 8:15 AM CDT Impressions 01/25/2025 8:53 AM CDT IMPRESSION: No acute pulmonary process. Narrative 01/25/2025 8:53 AM CDT Exam: XR CHEST PA OR AP 1 VW Date/Time of Exam: 01/25/2025 8:15 AM Reason For Exam: Pleural Effusion. Diagnosis: See Reason for Exam. Comparison: 01/21/2025. Findings: The cardiomediastinal structures are within normal limits. The left basilar pleural-parenchymal opacity present previously has resolved. There is no current evidence of an active infiltrate, pleural effusion or pneumothorax. The osseous structures appear grossly intact. Procedure Note Miko Wilkinson, DO - 01/25/2025 Exam: XR CHEST PA OR AP 1 VW Date/Time of Exam: 01/25/2025 8:15 AM Reason For Exam: Pleural Effusion. Diagnosis: See Reason for Exam. Comparison: 01/21/2025. Findings: The cardiomediastinal structures are within normal limits. The left basilar pleural-parenchymal opacity present previously has resolved. There is no current evidence of an active infiltrate, pleural effusion or pneumothorax. The osseous structures appear grossly intact. IMPRESSION: No acute pulmonary process. Lea Green MD DIAGNOSTIC IMAGING ORDERABLES Fi nal Result * (ABNORMAL) POC GLUCOSE (01/25/2025 5:02 AM CDT) GLUCOSE POC 110(H) 74 - 99 mg/dL 01/25/2025 5:02 AM CDT [facility] SPECIMEN SOURCE, GLUCOSE POC Capillary 01/25/2025 5:02 AM CDT [facility] Blood, whole 01/25/2025 5:02 AM CDT 01/25/2025 5:10 AM CDT Erendira Jackson MD POINT OF CARE TESTING Fi nal Result Performing Organization Address [facility] Co de Phone Number [facility] CLIA # [id number] [address] [place] [address] * MAGNESIUM LEVEL (01/25/2025 4:49 AM CDT) Pathologist [facility] MAGNESIUM 1.9 1.6 - 2.4 mg/dL 01/25/2025 8:04 AM CDT [facility] Blood Venipuncture / Unknown 01/25/2025 4:49 AM CDT 01/25/2025 5:01 AM CDT us Lea Green MD CHEMISTRY ORDERABLES Final Resul t Performing Organization Address [facility] Co de Phone Number [facility] CLIA # [id number] [address] [place] [address] * (ABNORMAL) BASIC METABOLIC PANEL (01/25/2025 4:49 AM CDT) Pathologist [facility] SODIUM 140 136 - 145 mmol/L 01/25/2025 5:41 AM CDT [facility] POTASSIUM 3.0(L) 3.5 - 5.1 mmol/L 01/25/2025 5:41 AM CDT [facility] CHLORIDE 103 98 - 107 mmol/L 01/25/2025 5:41 AM CDT [facility] CO2 26 22 - 29 mmol/L 01/25/2025 5:41 AM CDT [facility] CALCIUM 8.4(L) 8.8 - 10.2 mg/dL 01/25/2025 5:41 AM CDT [facility] BUN 6(L) 8 - 23 mg/dL 01/25/2025 5:41 AM CDT [facility] CREATININE 0.49(L) 0.51 - 0.95 mg/dL 01/25/2025 5:41 AM CDT [facility] Comment:The GFR result is no t clinically significant on patients <18 or >70 years of age. GLUCOSE 121(H) 74 - 99 mg/dL 01/25/2025 5:41 AM T [facility] GFR >60 mL/min/1. 73 sq meter 01/25/2025 5:41 AM CDT [facility] Comment:eGFR calculated with 2020 CKD-EPI equation. Vegetarian diet, extremely high or low muscle mass, and may affect results. Cystatin C with Glomerular Filtration Rate is a suitable alternative for these patients. ANION GAP 11 9 - 20 mmol/L 01/25/2025 5:41 AM T [facility] Blood Venipuncture / Unknown 01/25/2025 4:49 AM CDT 01/25/2025 5:01 AM CDT Erendira Jackson MD CHEMISTRY ORDERABLES Fin al Result [facility] CLIA # [id number] [address] [place] [address] * (ABNORMAL) CBC WITHOUT DIFFERENTIAL (01/25/2025 4:49 AM CDT) Pathologist [facility] WBC 5.1 4.8 - 10.8 K/uL 01/25/2025 5:22 AM T [facility] RBC 3.57(L) 4.20 - 5.40 M/uL 01/25/2025 5:22 AM T [facility] HEMOGLOBIN 10.0(L) 12.0 - 16.0 g/dL 01/25/2025 5:22 AM T [facility] HEMATOCRIT 31.0(L) 36.0 - 46.0 % 01/25/2025 5:22 AM T [facility] MCV 86.8 84.0 - 103.0 fL 01/25/2025 5:22 AM CDT [facility] MCH 28.0 27.0 - 34.0 pg 01/25/2025 5:22 AM CDT [facility] MCHC 32.3 30.0 - 35.0 g/dL 01/25/2025 5:22 AM CDT [facility] PLATELETS 358 140 - 440 K/uL 01/25/2025 5:22 AM CDT [facility] MPV 9.8 8.9 - 12.8 fL 01/25/2025 5:22 AM CDT [facility] RDW 20.1(H) 11.0 - 14.5 % 01/25/2025 5:22 AM CDT [facility] RDW-STDEV 64.0(H) 37.0 - 54.0 fL 01/25/2025 5:22 AM CDT [facility] Blood Venipuncture / Unknown 01/25/2025 4:49 AM CDT 01/25/2025 5:01 AM CDT us Erendira Jackson MD HEMATOLOGY ORDERABLES Fi nal Result [facility] CLIA # [id number] [address] [place] [address] * (ABNORMAL) POC GLUCOSE (01/25/2025 2:17 AM CDT) GLUCOSE POC 106(H) 74 - 99 mg/dL 01/25/2025 2:17 AM CDT [facility] SPECIMEN SOURCE, GLUCOSE POC Capillary 01/25/2025 2:17 AM CDT [facility] Blood, whole 01/25/2025 2:17 AM CDT 01/25/2025 2:25 AM CDT us Erendira Jackson MD POINT OF CARE TESTING Fi nal Result [facility] CLIA # [id number] [address] [address] [place] [address] * POC GLUCOSE (01/24/2025 8:40 PM CDT) [facility] GLUCOSE POC 96 74 - 99 mg/dL 01/24/2025 8:40 PM CDT [facility] SPECIMEN SOURCE, GLUCOSE POC Capillary 01/24/2025 8:40 PM CDT [facility] Blood, whole 01/24/2025 8:40 PM CDT 01/24/2025 9:05 PM CDT us Erendira Jackson MD POINT OF CARE TESTING Fi nal Result Performing Organization Address [facility] Co de Phone Number [facility] CLIA # [id number] [address] [place] [address] [place] [address] * (ABNORMAL) VITAMIN D 25 HYDROXY (01/24/2025 8:02 PM CDT) [facility] VITAMIN D TOTAL (25OH) 11(L) 30 - 100 ng/mL 01/24/2025 9:22 PM CDT [facility] Blood Venipuncture / Unknown 01/24/2025 8:02 PM CDT 01/24/2025 8:31 PM CDT Narrative [facility] - 01/24/2025 9:22 PM CDT Interpretive Data Chart: Deficient: 0 - 20 ng/mL Insufficient: 21 - 29 ng/mL Sufficient: 30 - 100 ng/mL Increased Risk of Hypercalciuria: >100 ng/ml Toxic: >150 ng/ml us Lea Green MD CHEMISTRY ORDERABLES Final Resul t Performing Organization Address [facility] Co de Phone Number [facility] CLIA # [id number] [facility] [address] * VANCOMYCIN LEVEL TROUGH (01/24/2025 8:02 PM CDT) Pathologist [facility] VANCOMYCIN, TROUGH 13.3 10.0 - 17.0 ug/mL 01/24/2025 9:06 PM CDT [facility] Blood Venipuncture / Unknown 01/24/2025 8:02 PM CDT 01/24/2025 8:31 PM CDT Erendira Jackson MD CHEMISTRY ORDERABLES Fin al Result Performing Organization Address City/[facility]/ZIP Co de Phone Number [facility] CLIA # [id number] [address] [address] * POC GLUCOSE (01/24/2025 5:27 PM CDT) [facility] GLUCOSE POC 97 74 - 99 mg/dL 01/24/2025 5:27 PM CDT [facility] SPECIMEN SOURCE, GLUCOSE POC Capillary 01/24/2025 5:27 PM CDT [facility] Blood, whole 01/24/2025 5:27 PM CDT 01/24/2025 5:34 PM CDT Erendira Jackson MD POINT OF CARE TESTING Fi nal Result Performing Organization Address City/[facility]/ZIP Co de Phone Number [facility] CLIA # [id number] [address] * POC GLUCOSE (01/24/2025 3:34 PM CDT) GLUCOSE POC 81 74 - 99 mg/dL 01/24/2025 3:34 PM CDT [facility] SPECIMEN SOURCE, GLUCOSE POC Capillary 01/24/2025 3:34 PM CDT [facility] Blood, whole 01/24/2025 3:34 PM CDT 01/24/2025 3:42 PM CDT Erendira Jackson MD POINT OF CARE TESTING Fi nal Result [facility] # [id number] [address] [place] [address] * IR TUBE PLACEMENT (01/24/2025 11:35 AM CDT) Anatomical Region Laterality Modality X-Ray Angiograph y 01/24/2025 11:3 6 AM CDT Impressions 01/24/2025 7:37 PM CDT IMPRESSION: Please see below. PROCEDURE: IMAGE GUIDED GASTROSTOMY TUBE PLACEMENT DIAGNOSIS: See Reason for Exam. INDICATION: Poor appetite, malnutrition [employer]: Miko Shay MD MEDICATIONS: 1. Versed and fentanyl were titrated to effect 2. Ancef 2 gram IV Moderate (conscious) sedation for this procedure was performed with continuous physician supervision. Medical history, physical exam, drug dosages, routes of drug administration, monitoring data, and precise times of service are documented in the medical record on the [facility]-approved form, 'Sedative/Analgesic Administration for Diagnostic and Therapeutic Procedures'. Please see nursing flow sheets for dosage and time. Sedation was administered by a trained independent observer. I personally supervised minutes of sedation. CONTRAST: 35 ml of nonionic contrast FLUOROSCOPY TIME: 10 minutes CATHETER: 16 [place] G-Tube COMPLICATIONS: None ESTIMATED BLOOD LOSS: Minimal PROCEDURE:Following written informed consent, the patient's mid and left upper abdomen was prepped and draped in the usual sterile fashion. The abdomen was evaluated with ultrasound and the liver margin was marked on the skin surface. The patient was given glucagon IV, and the stomach was inflated with air via a previously placed nasogastric tube. The stomach was visualized fluoroscopically in multiple projections to exclude the presence of overlying bowel.The skin and subcutaneous tissues overlying the stomach were infiltrated with lidocaine. Stay suture needles were advanced into the stomach under lateral fluoroscopic visualization, and intragastric position was confirmed by injection of contrast into the stomach. Stay sutures were placed to tack the anterior wall of the stomach against the anterior abdominal wall. A dermatotomy was then made between the stay sutures, and a needle was inserted into the stomach through which an Amplatz stiff wire was passed. A serial dilator/peel-away sheath was passed over the wire into the stomach. A 16 [place] Flor-Jaxson gastrostomy tube was placed over the wire through the sheath and into the stomach. The sheath was removed. Intraluminal position was again confirmed with the injection of contrast, and the gastrostomy tube balloon was inflated with 5 ml of saline. The patient tolerated the procedure well, without immediate complication. FINDINGS: Wire Hanger image of the abdomen demonstrates an enteric tube projecting over the stomach. Using fluoroscopy, a safe percutaneous window was identified free of overlying colon. Contrast injection confirms intraluminal position. Gastrostomy tube courses between the stay sutures. IMPRESSION: Successful placement of a gastrostomy tube as described above. If the patient desires, the T-fasteners can be removed in 2 weeks. Narrative Procedure Note Miko Shay MD - 01/24/2025 IMPRESSION: Please see below. PROCEDURE: IMAGE GUIDED GASTROSTOMY TUBE PLACEMENT DIAGNOSIS: See Reason for Exam. INDICATION: Poor appetite, malnutrition [employer]: Miko Shay MD MEDICATIONS: 1. Versed and fentanyl were titrated to effect 2. Ancef 2 gram IV Moderate (conscious) sedation for this procedure was performed with continuous physician supervision. Medical history, physical exam, drug dosages, routes of drug administration, monitoring data, and precise times of service are documented in the medical record on the [facility]-approved form, 'Sedative/Analgesic Administration for Diagnostic and Therapeutic Procedures'. Please see nursing flow sheets for dosage and time. Sedation was administered by a trained independent observer. I personally supervised minutes of sedation. CONTRAST: 35 ml of nonionic contrast FLUOROSCOPY TIME: 10 minutes CATHETER: 16 [place]arian G-Tube COMPLICATIONS: None ESTIMATED BLOOD LOSS: Minimal PROCEDURE:Following written informed consent, the patient's mid and left upper abdomen was prepped and draped in the usual sterile fashion. The abdomen was evaluated with ultrasound and the liver margin was marked on the skin surface. The patient was given glucagon IV, and the stomach was inflated with air via a previously placed nasogastric tube. The stomach was visualized fluoroscopically in multiple projections to exclude the presence of overlying bowel.The skin and subcutaneous tissues overlying the stomach were infiltrated with lidocaine. Stay suture needles were advanced into the stomach under lateral fluoroscopic visualization, and intragastric position was confirmed by injection of contrast into the stomach. Stay sutures were placed to tack the anterior wall of the stomach against the anterior abdominal wall. A dermatotomy was then made between the stay sutures, and a needle was inserted into the stomach through which an Amplatz stiff wire was passed. A serial dilator/peel-away sheath was passed over the wire into the stomach. A 16 [place] Flor-Jaxson gastrostomy tube was placed over the wire through the sheath and into the stomach. The sheath was removed. Intraluminal position was again confirmed with the injection of contrast, and the gastrostomy tube balloon was inflated with 5 ml of saline. The patient tolerated the procedure well, without immediate complication. FINDINGS: Wire Hanger image of the abdomen demonstrates an enteric tube projecting over the stomach. Using fluoroscopy, a safe percutaneous window was identified free of overlying colon. Contrast injection confirms intraluminal position. Gastrostomy tube courses between the stay sutures. IMPRESSION: Successful placement of a gastrostomy tube as described above. If the patient desires, the T-fasteners can be removed in 2 weeks. Erendira Jackson MD IR ORDERABLES Final Re sult * POC GLUCOSE (01/24/2025 10:14 AM CDT) GLUCOSE POC 92 74 - 99 mg/dL 01/24/2025 10:14 AM CDT [facility] SPECIMEN SOURCE, GLUCOSE POC Capillary 01/24/2025 10:14 AM CDT [facility] Blood, whole 01/24/2025 10:1 4 AM CDT 01/24/2025 10:21 AM CDT us Erendira Jackson MD POINT OF CARE TESTING Fi nal Result [facility] CLIA # [id number] [address] [address] [place] [address] * PROTIME-INR (01/24/2025 7:36 AM CDT) Pathologist [facility] PROTIME 13.8 12.7 - 14.9 Seconds 01/24/2025 7:55 AM CDT [facility] INR 1.0 0.8 - 1.2 01/24/2025 7:55 AM CDT [facility] Blood Venipuncture / Unknown 01/24/2025 7:36 AM CDT 01/24/2025 7:40 AM CDT Narrative [facility] - 01/24/2025 7:55 AM CDT Expected Values for INR: DVT/PE Goal INR 2.5; range 2.0 - 3.0 Valve Replacement Tissue Goal INR 2.5; range 2.0 - 3.0 Valve Replacement Mechanical Goal INR 3.0; range 2.5 - 3.5 POST-NM Goal INR 2.5; range 2.0 - 3.0 or Goal INR 3.0; range 2.5 - 3.5 Atrial Fibrillation Goal INR 2.5; range 2.0 - 3.0 Ischemic Stroke Goal INR 2.5; range 2.0 - 3.0 us Erendira Jackson MD HEMATOLOGY ORDERABLES Fi nal Result Performing Organization Address City/[facility]/ZIP Co de Phone Number [facility] CLIA # [id number] [address] [place] [address] * POC GLUCOSE (01/24/2025 4:24 AM CDT) [facility] GLUCOSE POC 91 74 - 99 mg/dL 01/24/2025 4:24 AM CDT [facility] SPECIMEN SOURCE, GLUCOSE POC Capillary 01/24/2025 4:24 AM CDT [facility] Blood, whole 01/24/2025 4:24 AM CDT 01/24/2025 4:32 AM CDT us Erendira Jackson MD POINT OF CARE TESTING Fi nal Result [facility] CLIA # [id number] [address] [address] [place] [address] * (ABNORMAL) BASIC METABOLIC PANEL (01/24/2025 3:37 AM CDT) SODIUM 137 136 - 145 mmol/L 01/24/2025 4:46 AM T [facility] POTASSIUM 2.9(L) 3.5 - 5.1 mmol/L 01/24/2025 4:46 AM T [facility] CHLORIDE 100 98 - 107 mmol/L 01/24/2025 4:46 AM T [facility] CO2 25 22 - 29 mmol/L 01/24/2025 4:46 AM T [facility] CALCIUM 8.8 8.8 - 10.2 mg/dL 01/24/2025 4:46 AM T [facility] BUN 7(L) 8 - 23 mg/dL 01/24/2025 4:46 AM [facility] CREATININE 0.50(L) 0.51 - 0.95 mg/dL 01/24/2025 4:46 AM T [facility] Comment:The GFR result is no t clinically significant on patients <18 or >70 years of age. GLUCOSE 120(H) 74 - 99 mg/dL 01/24/2025 4:46 AM T [facility] GFR >60 mL/min/1. 73 sq meter 01/24/2025 4:46 AM [facility] Comment:eGFR calculated with 2020 CKD-EPI equation. Vegetarian diet, extremely high or low muscle mass, and may affect results. Cystatin C with Glomerular Filtration Rate is a suitable alternative for these patients. ANION GAP 12 9 - 20 mmol/L 01/24/2025 4:46 AM T [facility] Blood Venipuncture / Unknown 01/24/2025 3:37 AM CDT 01/24/2025 4:10 AM CDT us Erendira Jackson MD CHEMISTRY ORDERABLES Fin al Result [facility] CLIA # [id number] [address] [address] [place] [address] * (ABNORMAL) CBC WITHOUT DIFFERENTIAL (01/24/2025 3:37 AM CDT) [facility] WBC 7.1 4.8 - 10.8 K/uL 01/24/2025 4:21 AM CDT [facility] RBC 3.51(L) 4.20 - 5.40 M/uL 01/24/2025 4:21 AM CDT [facility] HEMOGLOBIN 9.9(L) 12.0 - 16.0 g/dL 01/24/2025 4:21 AM CDT [facility] HEMATOCRIT 30.1(L) 36.0 - 46.0 % 01/24/2025 4:21 AM CDT [facility] MCV 85.8 84.0 - 103.0 fL 01/24/2025 4:21 AM CDT [facility] MCH 28.2 27.0 - 34.0 pg 01/24/2025 4:21 AM CDT [facility] MCHC 32.9 30.0 - 35.0 g/dL 01/24/2025 4:21 AM CDT [facility] PLATELETS 389 140 - 440 K/uL 01/24/2025 4:21 AM T [facility] MPV 10.3 8.9 - 12.8 fL 01/24/2025 4:21 AM CDT [facility] RDW 20.4(H) 11.0 - 14.5 % 01/24/2025 4:21 AM T [facility] RDW-STDEV 63.4(H) 37.0 - 54.0 fL 01/24/2025 4:21 AM [facility] Blood Venipuncture / Unknown 01/24/2025 3:37 AM CDT 01/24/2025 4:10 AM CDT Erendira Jackson MD HEMATOLOGY ORDERABLES Fi nal Result Performing Organization Address [facility]/ZIP Co de Phone Number [facility] CLIA # [id number] [address] [address] * POC GLUCOSE (01/23/2025 11:39 PM CDT) GLUCOSE POC 95 74 - 99 mg/dL 01/23/2025 11:39 PM CDT [facility] SPECIMEN SOURCE, GLUCOSE POC Capillary 01/23/2025 11:39 PM CDT [facility] Blood, whole 01/23/2025 11:3 9 PM CDT 01/23/2025 11:47 PM CDT Erendira Jackson MD POINT OF CARE TESTING Fi nal Result Performing Organization Address [facility] Co de Phone Number [facility] CLIA # [id number] [address] [address] * POC GLUCOSE (01/23/2025 5:41 PM CDT) GLUCOSE POC 81 74 - 99 mg/dL 01/23/2025 5:41 PM CDT [facility] SPECIMEN SOURCE, GLUCOSE POC Capillary 01/23/2025 5:41 PM CDT [facility] Blood, whole 01/23/2025 5:41 PM CDT 01/23/2025 5:50 PM CDT Erendira Jackson MD POINT OF CARE TESTING Fi nal Result Performing Organization Address City/[facility]/ZIP Co de Phone Number [facility] CLIA # [id number] [address] [address] * POC GLUCOSE (01/23/2025 11:34 AM CDT) [facility] GLUCOSE POC 96 74 - 99 mg/dL 01/23/2025 11:34 AM CDT [facility] SPECIMEN SOURCE, GLUCOSE POC Capillary 01/23/2025 11:34 AM CDT [facility] Blood, whole 01/23/2025 11:3 4 AM CDT 01/23/2025 12:05 PM CDT us Erendira Jackson MD POINT OF CARE TESTING Fi nal Result [facility] CLIA # [id number] [facility] [address] * (ABNORMAL) CBC WITHOUT DIFFERENTIAL (01/23/2025 9:09 AM CDT) [facility] WBC 6.3 4.8 - 10.8 K/uL 01/23/2025 9:44 AM CDT [facility] RBC 4.18(L) 4.20 - 5.40 M/uL 01/23/2025 9:44 AM CDT [facility] HEMOGLOBIN 11.7(L) 12.0 - 16.0 g/dL 01/23/2025 9:44 AM CDT [facility] HEMATOCRIT 36.4 36.0 - 46.0 % 01/23/2025 9:44 AM CDT [facility] MCV 87.1 84.0 - 103.0 fL 01/23/2025 9:44 AM CDT [facility] MCH 28.0 27.0 - 34.0 pg 01/23/2025 9:44 AM CDT [facility] MCHC 32.1 30.0 - 35.0 g/dL 01/23/2025 9:44 AM CDT [facility] PLATELETS 366 140 - 440 K/uL 01/23/2025 9:44 AM CDT [facility] MPV 10.0 8.9 - 12.8 fL 01/23/2025 9:44 AM CDT [facility] RDW 21.0(H) 11.0 - 14.5 % 01/23/2025 9:44 AM CDT [facility] RDW-STDEV 66.8(H) 37.0 - 54.0 fL 01/23/2025 9:44 AM CDT [facility] Blood Venipuncture / Unknown 01/23/2025 9:09 AM CDT 01/23/2025 9:34 AM CDT us Erendira Jackson MD HEMATOLOGY ORDERABLES Fi nal Result Performing Organization Address [facility] Co de Phone Number [facility] CLIA # [id number] [address] [address] * POC GLUCOSE (01/23/2025 7:36 AM CDT) [facility] GLUCOSE POC 93 74 - 99 mg/dL 01/23/2025 7:36 AM CDT [facility] SPECIMEN SOURCE, GLUCOSE POC Capillary 01/23/2025 7:36 AM CDT [facility] Blood, whole 01/23/2025 7:36 AM CDT 01/23/2025 7:52 AM CDT us Erendira Jackson MD POINT OF CARE TESTING Fi nal Result Performing Organization Address [facility] Co de Phone Number [facility] CLIA # [id number] [address] [address] * (ABNORMAL) BASIC METABOLIC PANEL (01/23/2025 6:03 AM CDT) [facility] SODIUM 139 136 - 145 mmol/L 01/23/2025 6:56 AM [facility] POTASSIUM 4.0 3.5 - 5.1 mmol/L 01/23/2025 6:56 AM [facility] CHLORIDE 102 98 - 107 mmol/L 01/23/2025 6:56 AM [facility] CO2 23 22 - 29 mmol/L 01/23/2025 6:56 AM [facility] CALCIUM 8.8 8.8 - 10.2 mg/dL 01/23/2025 6:56 AM [facility] BUN 6(L) 8 - 23 mg/dL 01/23/2025 6:56 AM [facility] CREATININE 0.45(L) 0.51 - 0.95 mg/dL 01/23/2025 6:56 AM [facility] Comment:The GFR result is no t clinically significant on patients <18 or >70 years of age. GLUCOSE 90 74 - 99 mg/dL 01/23/2025 6:56 AM [facility] GFR >60 mL/min/1. 73 sq meter 01/23/2025 6:56 AM [facility] Comment:eGFR calculated with 2020 CKD-EPI equation. Vegetarian diet, extremely high or low muscle mass, and may affect results. Cystatin C with Glomerular Filtration Rate is a suitable alternative for these patients. ANION GAP 14 9 - 20 mmol/L 01/23/2025 6:56 AM [facility] Blood Venipuncture / Unknown 01/23/2025 6:03 AM CDT 01/23/2025 6:09 AM T us Erendira Jackson MD CHEMISTRY ORDERABLES Fin al Result [facility] CLIA # [id number] [address] [place] [address] * POC GLUCOSE (01/23/2025 4:22 AM CDT) GLUCOSE POC 89 74 - 99 mg/dL 01/23/2025 4:22 AM CDT [facility] SPECIMEN SOURCE, GLUCOSE POC Capillary 01/23/2025 4:22 AM CDT [facility] Blood, whole 01/23/2025 4:22 AM CDT 01/23/2025 4:32 AM CDT Erendira Jackson MD POINT OF CARE TESTING Fi nal Result [facility] CLIA # [id number] [address] [address] [place], [place] [address] * POC GLUCOSE (01/23/2025 12:04 AM CDT) GLUCOSE POC 76 74 - 99 mg/dL 01/23/2025 12:04 AM CDT [facility] SPECIMEN SOURCE, GLUCOSE POC Capillary 01/23/2025 12:04 AM CDT [facility] Blood, whole 01/23/2025 12:0 4 AM CDT 01/23/2025 12:12 AM CDT us Erendira Jackson MD POINT OF CARE TESTING Fi nal Result [facility] CLIA # [id number] [address] [address] * POC GLUCOSE (01/22/2025 9:17 PM CDT) GLUCOSE POC 81 74 - 99 mg/dL 01/22/2025 9:17 PM CDT [facility] SPECIMEN SOURCE, GLUCOSE POC Capillary 01/22/2025 9:17 PM CDT [facility] Blood, whole 01/22/2025 9:17 PM CDT 01/22/2025 9:26 PM CDT Erendira Jackson MD POINT OF CARE TESTING Fi nal Result Performing Organization Address City/[facility]/ZIP Co de Phone Number [facility] CLIA # [id number] [address] [address] [place] [address] * POC GLUCOSE (01/22/2025 5:36 PM CDT) GLUCOSE POC 95 74 - 99 mg/dL 01/22/2025 5:36 PM CDT [facility] SPECIMEN SOURCE, GLUCOSE POC Capillary 01/22/2025 5:36 PM CDT [facility] Blood, whole 01/22/2025 5:36 PM CDT 01/22/2025 5:44 PM CDT us Erendira Jackson MD POINT OF CARE TESTING Fi nal Result Performing Organization Address [facility] Co de Phone Number [facility] CLIA # [id number] [address] [address] * (ABNORMAL) POC GLUCOSE (01/22/2025 11:40 AM CDT) GLUCOSE POC 100(H) 74 - 99 mg/dL 01/22/2025 11:40 AM CDT [facility] SPECIMEN SOURCE, GLUCOSE POC Capillary 01/22/2025 11:40 AM CDT [facility] Blood, whole 01/22/2025 11:4 0 AM CDT 01/22/2025 12:49 PM CDT Erendira Jackson MD POINT OF CARE TESTING Fi nal Result Performing Organization Address City/[facility]/ZIP Co de Phone Number [facility] [employer] [facility] CLIA # [id number] [address] [id number] [place] [address] * EXTRA TUBE (URINE BOB) (01/22/2025 9:33 AM CDT) Urine URINE SPECIMEN OBTAINED BY CLEAN CATCH PROCEDURE / Unknown Collection / Unknown 01/22/2025 9:33 AM CDT 01/22/2025 9:38 AM CDT Erendira Jackson MD URINE ORDERABLES Final R esult [facility] CLIA # [id number] [address] [address] * URINALYSIS WITH REFLEX MICROSCOPIC (01/22/2025 9:33 AM CDT) COLOR UA Pale Yellow Pale to Dark Yellow 01/22/2025 9:49 AM T [facility] [employer] [facility] CLARITY UA Clear Clear 01/22/2025 9:49 AM T [facility] SPECIFIC GRAVITY UA 1.014 1.003 - 1.035 01/22/2025 9:49 AM T [facility] PH UA 5.5 5.0 - 8.0 01/22/2025 9:49 AM [facility] LEUKOCYTE ESTERASE UA Negative Negative 01/22/2025 9:49 AM [facility] NITRITE UA Negative Negative 01/22/2025 9:49 AM [facility] PROTEIN UA Negative Negative 01/22/2025 9:49 AM T [facility] GLUCOSE UA Negative Negative 01/22/2025 9:49 AM [facility] KETONES UA Negative Negative 01/22/2025 9:49 AM [facility] UROBILINOGEN UA <2.0 <2.0 mg/dL 9:49 AM T [facility] BILIRUBIN UA Negative Negative 01/22/2025 9:49 AM CDT [facility] BLOOD UA Negative Negative 01/22/2025 9:49 AM CDT [facility] Urine URINE SPECIMEN OBTAINED BY CLEAN CATCH PROCEDURE / Unknown Collection / Unknown 01/22/2025 9:33 AM CDT 01/22/2025 9:38 AM CDT us Erendira Jackson MD URINE ORDERABLES Final R esult Performing Organization Address [facility] Co de Phone Number [facility] CLIA # [id number] [address] [address] [place] [address] * (ABNORMAL) POC GLUCOSE (01/22/2025 7:26 AM CDT) GLUCOSE POC 101(H) 74 - 99 mg/dL 01/22/2025 7:26 AM CDT [facility] SPECIMEN SOURCE, GLUCOSE POC Capillary 01/22/2025 7:26 AM CDT [facility] Blood, whole 01/22/2025 7:26 AM CDT 01/22/2025 7:34 AM CDT us Erendira Jackson MD POINT OF CARE TESTING Fi nal Result Performing Organization Address [facility] de Phone Number [facility] CLIA # [id number] [address] [address] * (ABNORMAL) BASIC METABOLIC PANEL (01/22/2025 5:21 AM CDT) SODIUM 140 136 - 145 mmol/L 01/22/2025 6:03 AM CDT [facility] POTASSIUM 3.3(L) 3.5 - 5.1 mmol/L 01/22/2025 6:03 AM CDT [facility] CHLORIDE 103 98 - 107 mmol/L 01/22/2025 6:03 AM [facility] CO2 24 22 - 29 mmol/L 01/22/2025 6:03 AM [facility] CALCIUM 8.6(L) 8.8 - 10.2 mg/dL 01/22/2025 6:03 AM [facility] BUN 6(L) 8 - 23 mg/dL 01/22/2025 6:03 AM [facility] CREATININE 0.47(L) 0.51 - 0.95 mg/dL 01/22/2025 6:03 AM [facility] Comment:The GFR result is no t clinically significant on patients <18 or >70 years of age. GLUCOSE 105(H) 74 - 99 mg/dL 01/22/2025 6:03 AM [facility] GFR >60 mL/min/1. 73 sq meter 01/22/2025 6:03 AM [facility] Comment:eGFR calculated with 2020 CKD-EPI equation. Vegetarian diet, extremely high or low muscle mass, and may affect results. Cystatin C with Glomerular Filtration Rate is a suitable alternative for these patients. ANION GAP 13 9 - 20 mmol/L 01/22/2025 6:03 AM [facility] Blood Venipuncture / Unknown 01/22/2025 5:21 AM CDT 01/22/2025 5:31 AM CDT Erendira Jackson MD CHEMISTRY ORDERABLES Fin al Result [facility] CLIA # [id number] [address] [place] [address] * (ABNORMAL) POC GLUCOSE (01/22/2025 4:23 AM CDT) Pathologist [facility] GLUCOSE POC 107(H) 74 - 99 mg/dL 01/22/2025 4:23 AM T [facility] SPECIMEN SOURCE, GLUCOSE POC Capillary 01/22/2025 4:23 AM CDT [facility] Blood, whole 01/22/2025 4:23 AM CDT 01/22/2025 4:30 AM CDT Erendira Jackson MD POINT OF CARE TESTING Fi nal Result Performing Organization Address [facility] Co de Phone Number [facility] CLIA # [id number] [address] [place] [address] [place] [address] * (ABNORMAL) POC GLUCOSE (01/22/2025 12:44 AM CDT) GLUCOSE POC 105(H) 74 - 99 mg/dL 01/22/2025 12:44 AM CDT [facility] SPECIMEN SOURCE, GLUCOSE POC Capillary 01/22/2025 12:44 AM CDT [facility] Blood, whole 01/22/2025 12:4 4 AM CDT 01/22/2025 12:52 AM CDT Erendira Jackson MD POINT OF CARE TESTING Fi nal Result Performing Organization Address [facility] Co de Phone Number [facility] CLIA # [id number] [address] [address] * (ABNORMAL) POC GLUCOSE (01/21/2025 8:32 PM CDT) GLUCOSE POC 101(H) 74 - 99 mg/dL 01/21/2025 8:32 PM CDT [facility] SPECIMEN SOURCE, GLUCOSE POC Capillary 01/21/2025 8:32 PM CDT [facility] Blood, whole 01/21/2025 8:32 PM CDT 01/21/2025 8:41 PM CDT Erendira Jackson MD POINT OF CARE TESTING Fi nal Result Performing Organization Address [facility] Co de Phone Number [facility] CLIA # [id number] [address] [address] * LACTIC ACID (01/21/2025 7:57 PM CDT) LACTIC ACID 1.1 <=2.0 mmol/L 01/21/2025 8:32 PM CDT [facility] Blood Venipuncture / Unknown 01/21/2025 7:57 PM CDT 01/21/2025 8:09 PM CDT Erendira Jackson MD CHEMISTRY ORDERABLES Fin al Result Performing Organization Address [facility] Co de Phone Number [facility] CLIA # [id number] [address] [address] * XR ABDOMEN 1 VW (01/21/2025 6:32 PM CDT) Anatomical Region Laterality Modality Abdomen Computed Radiogr aphy 01/21/2025 6:32 PM CDT Impressions 01/21/2025 6:50 PM CDT IMPRESSION: Nonspecific nonobstructive bowel gas pattern. Narrative 01/21/2025 6:50 PM CDT Exam: XR ABDOMEN 1 VW Date/Time of Exam: 01/21/2025 6:32 PM Reason For Exam: Vomiting. Diagnosis: See Reason for Exam. Comparison: 01/13/2025. Findings: An enteric tube is present terminating in the distribution of the mid stomach. The bowel gas pattern is nonspecific without definitive radiographic evidence of obstruction. There is no gross organomegaly, mass, free air or discrete pathologic calcifications. There is a small left pleural effusion. Procedure Note Miko Wilkinson, DO - 01/21/2025 Exam: XR ABDOMEN 1 VW Date/Time of Exam: 01/21/2025 6:32 PM Reason For Exam: Vomiting. Diagnosis: See Reason for Exam. Comparison: 01/13/2025. Findings: An enteric tube is present terminating in the distribution of the mid stomach. The bowel gas pattern is nonspecific without definitive radiographic evidence of obstruction. There is no gross organomegaly, mass, free air or discrete pathologic calcifications. There is a small left pleural effusion. IMPRESSION: Nonspecific nonobstructive bowel gas pattern. Erendira Jackson MD DIAGNOSTIC IMAGING ORDER KARON Final Result * XR CHEST PA OR AP 1 VW (01/21/2025 6:32 PM CDT) Anatomical Region Laterality Modality Chest Computed Radiogr aphy 01/21/2025 6:32 PM CDT Impressions 01/21/2025 6:49 PM CDT IMPRESSION: Small left pleural effusion with adjacent nonspecific left basilar opacity. Narrative 01/21/2025 6:49 PM CDT Exam: XR CHEST PA OR AP 1 VW Date/Time of Exam: 01/21/2025 6:32 PM Reason For Exam: Altered Mental Status. Diagnosis: See Reason for Exam. Comparison: 11/30/2024. Findings: An enteric tube is present extending to at least the level of the upper stomach and off the [id number]. The cardiomediastinal structures are within normal limits. There is a small left pleural effusion with adjacent left basilar opacity likely at least in part reflecting atelectasis. The right lung field is clear. There is no appreciable pneumothorax. The osseous structures appear grossly intact. Procedure Note Miko Wilkinson, DO - 01/21/2025 Exam: XR CHEST PA OR AP 1 VW Date/Time of Exam: 01/21/2025 6:32 PM Reason For Exam: Altered Mental Status. Diagnosis: See Reason for Exam. Comparison: 11/30/2024. Findings: An enteric tube is present extending to at least the level of the upper stomach and off the [id number]. The cardiomediastinal structures are within normal limits. There is a small left pleural effusion with adjacent left basilar opacity likely at least in part reflecting atelectasis. The right lung field is clear. There is no appreciable pneumothorax. The osseous structures appear grossly intact. IMPRESSION: Small left pleural effusion with adjacent nonspecific left basilar opacity. Erendira Jackson MD DIAGNOSTIC IMAGING ORDER KARON Final Result * BLOOD CULTURE (01/21/2025 6:27 PM CDT) BLOOD CULTURE No growth 01/26/2025 10:25 PM CDT [facility] Blood (Peripheral) Venipuncture / Unknown 01/21/2025 6:27 PM CDT 01/21/2025 6:44 PM CDT Narrative [facility] - 01/26/2025 10:25 PM CDT Specimen processed with suboptimal blood volume collected. Erendira Jackson MD MICROBIOLOGY - GENERAL O RDERABLES Final Result Performing Organization Address [facility]/ZIP Co de Phone Number [facility] CLIA # [id number] [address] [address] * BLOOD CULTURE (01/21/2025 6:20 PM CDT) [facility] BLOOD CULTURE No growth 01/26/2025 10:23 PM CDT [facility] Blood (Peripheral) Venipuncture / Unknown 01/21/2025 6:20 PM CDT 01/21/2025 6:44 PM CDT Erendira Jackson MD MICROBIOLOGY - GENERAL O RDERABLES Final Result Performing Organization Address City/[facility]/ZIP Co de Phone Number [facility] CLIA # [id number] [address] [address] * (ABNORMAL) POC GLUCOSE (01/21/2025 4:53 PM CDT) Pathologist [facility] GLUCOSE POC 106(H) 74 - 99 mg/dL 01/21/2025 4:53 PM CDT [facility] SPECIMEN SOURCE, GLUCOSE POC Capillary 01/21/2025 4:53 PM CDT [facility] Blood, whole 01/21/2025 4:53 PM CDT 01/21/2025 5:01 PM CDT Erendira Jackson MD POINT OF CARE TESTING Fi nal Result Performing Organization Address [facility] de Phone Number [facility] CLIA # [id number] [address] [address] * POTASSIUM LEVEL (01/21/2025 1:45 PM CDT) [facility] POTASSIUM 3.9 3.5 - 5.1 mmol/L 01/21/2025 2:30 PM CDT [facility] Blood Venipuncture / Unknown 01/21/2025 1:45 PM CDT 01/21/2025 1:49 PM CDT Erendira Jackson MD CHEMISTRY ORDERABLES Fin al Result Performing Organization Address [facility] de Phone Number [facility] CLIA # [id number] [address] [address] * (ABNORMAL) POC GLUCOSE (01/21/2025 7:40 AM CDT) Pathologist [facility] GLUCOSE POC 121(H) 74 - 99 mg/dL 01/21/2025 7:40 AM CDT [facility] SPECIMEN SOURCE, GLUCOSE POC Capillary 01/21/2025 7:40 AM CDT [facility] Blood, whole 01/21/2025 7:40 AM CDT 01/21/2025 7:49 AM CDT Erendira Jackson MD POINT OF CARE TESTING Fi nal Result Performing Organization Address [facility]/ZIP Co de Phone Number [facility] CLIA # [id number] [address] [address] [place] [address] * MAGNESIUM LEVEL (01/21/2025 4:25 AM CDT) MAGNESIUM 1.7 1.6 - 2.4 mg/dL 01/21/2025 5:58 AM CDT [facility] Blood Venipuncture / Unknown 01/21/2025 4:25 AM CDT 01/21/2025 5:24 AM CDT Erendira Jackson MD CHEMISTRY ORDERABLES Fin al Result Performing Organization Address [facility] Co de Phone Number [facility] CLIA # [id number] [address] [place] [address] * (ABNORMAL) BASIC METABOLIC PANEL (01/21/2025 4:25 AM CDT) SODIUM 141 136 - 145 mmol/L 01/21/2025 5:58 AM CDT [facility] POTASSIUM 3.2(L) 3.5 - 5.1 mmol/L 01/21/2025 5:58 AM CDT [facility] CHLORIDE 103 98 - 107 mmol/L 01/21/2025 5:58 AM CDT [facility] CO2 26 22 - 29 mmol/L 01/21/2025 5:58 AM CDT [facility] CALCIUM 8.7(L) 8.8 - 10.2 mg/dL 01/21/2025 5:58 AM CDT [facility] BUN 5(L) 8 - 23 mg/dL 01/21/2025 5:58 AM CDT [facility] CREATININE 0.45(L) 0.51 - 0.95 mg/dL 01/21/2025 5:58 AM CDT [facility] Comment:The GFR result is no t clinically significant on patients <18 or >70 years of age. GLUCOSE 109(H) 74 - 99 mg/dL 01/21/2025 5:58 AM CDT [facility] GFR >60 mL/min/1. 73 sq meter 01/21/2025 5:58 AM CDT [facility] Comment:eGFR calculated with 2020 CKD-EPI equation. Vegetarian diet, extremely high or low muscle mass, and may affect results. Cystatin C with Glomerular Filtration Rate is a suitable alternative for these patients. ANION GAP 12 9 - 20 mmol/L 01/21/2025 5:58 AM CDT [facility] Blood Venipuncture / Unknown 01/21/2025 4:25 AM CDT 01/21/2025 5:24 AM CDT us Erendira Jackson MD CHEMISTRY ORDERABLES Fin al Result Performing Organization Address City/[facility]/ZIP Co de Phone Number [facility] CLIA # [id number] [address] [address] * POC GLUCOSE (01/20/2025 7:17 PM CDT) Pathologist [facility] GLUCOSE POC 93 74 - 99 mg/dL 01/20/2025 7:17 PM CDT [facility] SPECIMEN SOURCE, GLUCOSE POC Capillary 01/20/2025 7:17 PM CDT [facility] Blood, whole 01/20/2025 7:17 PM CDT 01/20/2025 8:07 PM CDT us Erendira Jackson MD POINT OF CARE TESTING Fi nal Result Performing Organization Address [facility] Co de Phone Number [facility] CLIA # [id number] [address] [address] * (ABNORMAL) POC GLUCOSE (01/20/2025 11:29 AM CDT) GLUCOSE POC 102(H) 74 - 99 mg/dL 01/20/2025 11:29 AM CDT [facility] SPECIMEN SOURCE, GLUCOSE POC Capillary 01/20/2025 11:29 AM CDT [facility] Blood, whole 01/20/2025 11:2 9 AM CDT 01/20/2025 11:41 AM CDT Erendira Jackson MD POINT OF CARE TESTING Fi nal Result Performing Organization Address City/[facility]/ZIP Co de Phone Number [facility] CLIA # [id number] [address] [address] [place], [place] [address] * (ABNORMAL) POC GLUCOSE (01/20/2025 7:49 AM CDT) GLUCOSE POC 119(H) 74 - 99 mg/dL 01/20/2025 7:49 AM CDT [facility] SPECIMEN SOURCE, GLUCOSE POC Capillary 01/20/2025 7:49 AM CDT [facility] Blood, whole 01/20/2025 7:49 AM CDT 01/20/2025 7:58 AM CDT us Erendira Jackson MD POINT OF CARE TESTING Fi nal Result [facility] CLIA # [id number] [address] [address] * POC GLUCOSE (01/20/2025 5:26 AM CDT) GLUCOSE POC 97 74 - 99 mg/dL 01/20/2025 5:26 AM CDT [facility] SPECIMEN SOURCE, GLUCOSE POC Capillary 01/20/2025 5:26 AM CDT [facility] Blood, whole 01/20/2025 5:26 AM CDT 01/20/2025 7:29 AM CDT us Erendira Jackson MD POINT OF CARE TESTING Fi nal Result [facility] CLIA # [id number] Critical access hospital [address] [address] [place] [address] * (ABNORMAL) CBC WITHOUT DIFFERENTIAL (01/20/2025 4:43 AM CDT) Pathologist [facility] WBC 5.3 4.8 - 10.8 K/uL 01/20/2025 5:26 AM CDT [facility] RBC 3.46(L) 4.20 - 5.40 M/uL 01/20/2025 5:26 AM CDT [facility] HEMOGLOBIN 9.5(L) 12.0 - 16.0 g/dL 01/20/2025 5:26 AM CDT [facility] HEMATOCRIT 30.0(L) 36.0 - 46.0 % 01/20/2025 5:26 AM CDT [facility] MCV 86.7 84.0 - 103.0 fL 01/20/2025 5:26 AM CDT [facility] MCH 27.5 27.0 - 34.0 pg 01/20/2025 5:26 AM CDT [facility] MCHC 31.7 30.0 - 35.0 g/dL 01/20/2025 5:26 AM CDT [facility] PLATELETS 344 140 - 440 K/uL 01/20/2025 5:26 AM CDT [facility] MPV 10.3 8.9 - 12.8 fL 01/20/2025 5:26 AM CDT [facility] RDW 21.8(H) 11.0 - 14.5 % 01/20/2025 5:26 AM CDT [facility] RDW-STDEV 66.8(H) 37.0 - 54.0 fL 01/20/2025 5:26 AM CDT [facility] Blood Venipuncture / Unknown 01/20/2025 4:43 AM CDT 01/20/2025 5:13 AM CDT us Erendira Jackson MD HEMATOLOGY ORDERABLES Fi nal Result [facility] CLIA # [id number] [address] [address] * (ABNORMAL) BASIC METABOLIC PANEL (01/20/2025 4:42 AM CDT) SODIUM 141 136 - 145 mmol/L 01/20/2025 6:10 AM T [facility] POTASSIUM 3.3(L) 3.5 - 5.1 mmol/L 01/20/2025 6:10 AM [facility] CHLORIDE 105 98 - 107 mmol/L 01/20/2025 6:10 AM [facility] CO2 24 22 - 29 mmol/L 01/20/2025 6:10 AM [facility] CALCIUM 8.7(L) 8.8 - 10.2 mg/dL 01/20/2025 6:10 AM T [facility] BUN 4(L) 8 - 23 mg/dL 01/20/2025 6:10 AM [facility] CREATININE 0.40(L) 0.51 - 0.95 mg/dL 01/20/2025 6:10 AM T [facility] Comment:The GFR result is no t clinically significant on patients <18 or >70 years of age. GLUCOSE 118(H) 74 - 99 mg/dL 01/20/2025 6:10 AM T [facility] GFR >60 mL/min/1. 73 sq meter 01/20/2025 6:10 AM [facility] Comment:eGFR calculated with 2020 CKD-EPI equation. Vegetarian diet, extremely high or low muscle mass, and may affect results. Cystatin C with Glomerular Filtration Rate is a suitable alternative for these patients. ANION GAP 12 9 - 20 mmol/L 01/20/2025 6:10 AM CDT [facility] Blood Venipuncture / Unknown 01/20/2025 4:42 AM CDT 01/20/2025 5:10 AM CDT Erendira Jackson MD CHEMISTRY ORDERABLES Fin al Result Performing Organization Address [facility] Co de Phone Number [facility] CLIA # [id number] [address] [address] [place], [place] [address] * POC GLUCOSE (01/19/2025 10:49 PM CDT) GLUCOSE POC 90 74 - 99 mg/dL 01/19/2025 10:49 PM CDT [facility] SPECIMEN SOURCE, GLUCOSE POC Capillary 01/19/2025 10:49 PM CDT [facility] Blood, whole 01/19/2025 10:4 9 PM CDT 01/19/2025 11:53 PM CDT us Erendira Jackson MD POINT OF CARE TESTING Fi nal Result Performing Organization Address [facility]/ZIP Co de Phone Number [facility] CLIA # [id number] [address] [address] [place], [place] [address] * POC GLUCOSE (01/19/2025 5:08 PM CDT) GLUCOSE POC 97 74 - 99 mg/dL 01/19/2025 5:08 PM CDT [facility] SPECIMEN SOURCE, GLUCOSE POC Capillary 01/19/2025 5:08 PM CDT [facility] Blood, whole 01/19/2025 5:08 PM CDT 01/19/2025 5:40 PM CDT us Erendira Jackson MD POINT OF CARE TESTING Fi nal Result [facility] CLIA # [id number] [address] [place], [place] [address] * (ABNORMAL) POC GLUCOSE (01/19/2025 11:41 AM CDT) GLUCOSE POC 105(H) 74 - 99 mg/dL 01/19/2025 11:41 AM CDT [facility] SPECIMEN SOURCE, GLUCOSE POC Capillary 01/19/2025 11:41 AM CDT [facility] Blood, whole 01/19/2025 11:4 1 AM CDT 01/19/2025 12:09 PM CDT us Erendira Jackson MD POINT OF CARE TESTING Fi nal Result Performing Organization Address [facility] Co de Phone Number [facility] CLIA # [id number] [address] [facility] [place] [address] * POC GLUCOSE (01/19/2025 7:30 AM CDT) GLUCOSE POC 97 74 - 99 mg/dL 01/19/2025 7:30 AM CDT [facility] SPECIMEN SOURCE, GLUCOSE POC Capillary 01/19/2025 7:30 AM CDT [facility] Blood, whole 01/19/2025 7:30 AM CDT 01/19/2025 7:41 AM CDT us Erendira Jackson MD POINT OF CARE TESTING Fi nal Result [facility] CLIA # [id number] [address] [place], [place] [address] * (ABNORMAL) PHOSPHORUS (01/19/2025 4:44 AM CDT) [facility] PHOSPHORUS 2.3(L) 2.5 - 4.5 mg/dL 01/19/2025 5:28 AM CDT [facility] Blood Venipuncture / Unknown 01/19/2025 4:44 AM CDT 01/19/2025 4:56 AM CDT Sesar Cat DO CHEMISTRY ORDERABLES Final R esult Performing Organization Address [facility] Co de Phone Number [facility] CLIA # [id number] [address] [address] * MAGNESIUM LEVEL (01/19/2025 4:44 AM CDT) [facility] MAGNESIUM 1.7 1.6 - 2.4 mg/dL 01/19/2025 5:28 AM CDT [facility] Blood Venipuncture / Unknown 01/19/2025 4:44 AM CDT 01/19/2025 4:56 AM CDT us Sesar Cat DO CHEMISTRY ORDERABLES Final R esult [facility] CLIA # [id number] [address] [address] * (ABNORMAL) BASIC METABOLIC PANEL (01/19/2025 4:44 AM CDT) [facility] SODIUM 141 136 - 145 mmol/L 01/19/2025 5:28 AM [address]T [facility] [employer] [facility] POTASSIUM 3.4(L) 3.5 - 5.1 mmol/L 01/19/2025 5:28 AM [facility] 105 98 - 107 mmol/L 01/19/2025 5:28 AM [facility] CO2 26 22 - 29 mmol/L 01/19/2025 5:28 AM [facility] CALCIUM 8.9 8.8 - 10.2 mg/dL 01/19/2025 5:28 AM [facility] BUN 5(L) 8 - 23 mg/dL 01/19/2025 5:28 AM [facility] CREATININE 0.45(L) 0.51 - 0.95 mg/dL 01/19/2025 5:28 AM [facility] Comment:The GFR result is no t clinically significant on patients <18 or >70 years of age. GLUCOSE 142(H) 74 - 99 mg/dL 01/19/2025 5:28 AM [facility] GFR >60 mL/min/1. 73 sq meter 01/19/2025 5:28 AM [facility] Comment:eGFR calculated with 2020 CKD-EPI equation. Vegetarian diet, extremely high or low muscle mass, and may affect results. Cystatin C with Glomerular Filtration Rate is a suitable alternative for these patients. ANION GAP 10 9 - 20 mmol/L 01/19/2025 5:28 AM [facility] Blood Venipuncture / Unknown 01/19/2025 4:44 AM CDT 01/19/2025 4:56 AM CDT us Erendira Jackson MD CHEMISTRY ORDERABLES Fin al Result [facility] CLIA # [id number] [address] [place] [address] * (ABNORMAL) CBC WITHOUT DIFFERENTIAL (01/19/2025 4:44 AM CDT) WBC 6.4 4.8 - 10.8 K/uL 01/19/2025 5:19 AM [facility] RBC 3.74(L) 4.20 - 5.40 M/uL 01/19/2025 5:19 AM T [facility] HEMOGLOBIN 10.3(L) 12.0 - 16.0 g/dL 01/19/2025 5:19 AM [facility] HEMATOCRIT 31.7(L) 36.0 - 46.0 % 01/19/2025 5:19 AM CDT [facility] MCV 84.8 84.0 - 103.0 fL 01/19/2025 5:19 AM T [facility] MCH 27.5 27.0 - 34.0 pg 01/19/2025 5:19 AM T [facility] MCHC 32.5 30.0 - 35.0 g/dL 01/19/2025 5:19 AM T [facility] PLATELETS 391 140 - 440 K/uL 01/19/2025 5:19 AM T [facility] MPV 9.9 8.9 - 12.8 fL 01/19/2025 5:19 AM [facility] RDW 21.7(H) 11.0 - 14.5 % 01/19/2025 5:19 AM [facility] RDW-STDEV 65.4(H) 37.0 - 54.0 fL 01/19/2025 5:19 AM T [facility] Blood Venipuncture / Unknown 01/19/2025 4:44 AM CDT 01/19/2025 4:55 AM CDT us Erendira Jackson MD HEMATOLOGY ORDERABLES Fi nal Result [facility] CLIA # [id number] [address] [address] [place] [address] * EKG 12-LEAD (01/19/2025 4:14 AM CDT) 01/19/2025 4:14 AM CDT Narrative INTERFACE SYSTEM - 01/19/2025 7:08 [place] [address] Test Date: 2025-01-19 Pat Name: TIFFANY SEXTON Department: 12 Room: [address] [place] [address] Gender: Female 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: [id number] : 1950 Requested By: Order Number: [id number] Reading MD: Romero Tijerina Measurements Intervals [place] Rate: 150 P: 0 ID: 0 QRS: -26 QRSD: 64 T: 244 QT: 334 QTc: 527 Interpretive Statements Atrial fibrillation with rapid ventricular response Low voltage QRS Possible Anterior infarct, age undetermined T wave abnormality, consider anterolateral ischemia Abnormal ECG Electronically Signed On 01-19-2025 7:08:07 CDT by Romero Tijerina Procedure Note Romero Tijerina MD - 01/19/[address] [address] Test Date: 2025-01-19 Pat Name: TIFFANY SEXTON Department: 12 Room: [address] [place] [address] Gender: Female 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: [id number] : 1950 Requested By: Order Number: [id number] Reading : Romero Tijerina Measurements Intervals [place] Rate: 150 P: 0 ID: 0 QRS: -26 QRSD: 64 T: 244 QT: 334 QTc: 527 Interpretive Statements Atrial fibrillation with rapid ventricular response Low voltage QRS Possible Anterior infarct, age undetermined T wave abnormality, consider anterolateral ischemia Abnormal ECG Electronically Signed On 01-19-2025 7:08:07 CDT by Romero Tijerina us Erendira Jackson MD ECG ORDERABLES Final Re sult INTERFACE SYSTEM Refer to clinic/hospital department * (ABNORMAL) POC GLUCOSE (01/19/2025 4:10 AM CDT) GLUCOSE POC 120(H) 74 - 99 mg/dL 01/19/2025 4:10 AM [address] [facility] SPECIMEN SOURCE, GLUCOSE POC Capillary 01/19/2025 4:10 AM CDT [facility] Blood, whole 01/19/2025 4:10 AM CDT 01/19/2025 6:30 AM CDT Erendira Jackson MD POINT OF CARE TESTING Fi nal Result Performing Organization Address City/[facility]/ZIP Co de Phone Number [facility] CLIA # [id number] [address] [address] * POC GLUCOSE (01/18/2025 9:34 PM CDT) GLUCOSE POC 87 74 - 99 mg/dL 01/18/2025 9:34 PM CDT [facility] SPECIMEN SOURCE, GLUCOSE POC Capillary 01/18/2025 9:34 PM CDT [facility] Blood, whole 01/18/2025 9:34 PM CDT 01/19/2025 1:07 AM CDT us Erendira Jackson MD POINT OF CARE TESTING Fi nal Result Performing Organization Address [facility] Co de Phone Number [facility] CLIA # [id number] [address] [address] * POC GLUCOSE (01/18/2025 5:21 PM CDT) GLUCOSE POC 94 74 - 99 mg/dL 01/18/2025 5:21 PM CDT [facility] SPECIMEN SOURCE, GLUCOSE POC Capillary 01/18/2025 5:21 PM CDT [facility] Blood, whole 01/18/2025 5:21 PM CDT 01/18/2025 5:37 PM CDT Erendira Jackson MD POINT OF CARE TESTING Fi nal Result Performing Organization Address [facility] Co de Phone Number [facility] CLIA # [id number] [address] [place] [address] * (ABNORMAL) POC GLUCOSE (01/18/2025 11:30 AM CDT) GLUCOSE POC 129(H) 74 - 99 mg/dL 01/18/2025 11:30 AM CDT [facility] SPECIMEN SOURCE, GLUCOSE POC Capillary 01/18/2025 11:30 AM CDT [facility] Blood, whole 01/18/2025 11:3 0 AM CDT 01/18/2025 12:14 PM CDT us Erendira Jackson MD POINT OF CARE TESTING Fi nal Result Performing Organization Address [facility] de Phone Number [facility] CLIA # [id number] [address] [address] [place], [place] [address] * (ABNORMAL) POC GLUCOSE (01/18/2025 7:39 AM CDT) GLUCOSE POC 118(H) 74 - 99 mg/dL 01/18/2025 7:39 AM CDT [facility] SPECIMEN SOURCE, GLUCOSE POC Capillary 01/18/2025 7:39 AM CDT [facility] Blood, whole 01/18/2025 7:3 9 AM CDT 01/18/2025 7:51 AM CDT us Shirley Paz MD POINT OF CARE TESTIN G Final Result Performing Organization Address [facility] Co de Phone Number [facility] CLIA # [id number] [address] [place], [place] [address] * (ABNORMAL) POC GLUCOSE (01/18/2025 12:52 AM CDT) GLUCOSE POC 108(H) 74 - 99 mg/dL 01/18/2025 12:52 AM CDT [facility] SPECIMEN SOURCE, GLUCOSE POC Capillary 01/18/2025 12:52 AM CDT [facility] Blood, whole 01/18/2025 12:5 2 AM CDT 01/18/2025 1:01 AM CDT Shirley Paz MD POINT OF CARE TESTIN G Final Result Performing Organization Address [facility]/ZIP Co de Phone Number [facility] CLIA # [id number] [address] [id number] * (ABNORMAL) POC GLUCOSE (01/17/2025 9:01 PM CDT) GLUCOSE POC 108(H) 74 - 99 mg/dL 01/17/2025 9:01 PM CDT [facility] SPECIMEN SOURCE, GLUCOSE POC Capillary 01/17/2025 9:01 PM CDT [facility] Blood, whole 01/17/2025 9:01 PM CDT 01/17/2025 9:14 PM CDT us Shirley Paz MD POINT OF CARE TESTIN G Final Result [facility] CLIA # [id number] [address] [address] [place] [address] * POC GLUCOSE (01/17/2025 4:21 PM CDT) GLUCOSE POC 94 74 - 99 mg/dL 01/17/2025 4:21 PM CDT [facility] SPECIMEN SOURCE, GLUCOSE POC Capillary 01/17/2025 4:21 PM CDT [facility] Blood, whole 01/17/2025 4:21 PM CDT 01/17/2025 4:29 PM CDT Shirley Paz MD POINT OF CARE TESTIN G Final Result Performing Organization Address [facility]/ZIP Co de Phone Number [facility] CLIA # [id number] [address] [place], [place] [address] * TELEMETRY REPORT (01/17/2025 2:54 PM CDT) Provider Scanning ECG ORDERABLES Final Result * (ABNORMAL) POC GLUCOSE (01/17/2025 7:33 AM CDT) GLUCOSE POC 108(H) 74 - 99 mg/dL 01/17/2025 7:33 AM CDT [facility] SPECIMEN SOURCE, GLUCOSE POC Capillary 01/17/2025 7:33 AM CDT [facility] Blood, whole 01/17/2025 7:33 AM CDT 01/17/2025 7:55 AM CDT Shirley Paz MD POINT OF CARE TESTIN G Final Result Performing Organization Address [facility]/[place] [facility] Co de Phone Number [facility] CLIA # [id number] [address] [facility] [place], [place] [address] * (ABNORMAL) POC GLUCOSE (01/17/2025 4:00 AM CDT) GLUCOSE POC 112(H) 74 - 99 mg/dL 01/17/2025 4:00 AM CDT [facility] SPECIMEN SOURCE, GLUCOSE POC Capillary 01/17/2025 4:00 AM CDT [facility] Blood, whole 01/17/2025 4:00 AM CDT 01/17/2025 4:12 AM CDT Shirley Paz MD POINT OF CARE TESTIN G Final Result Performing Organization Address [facility] Co de Phone Number [facility] CLIA # [id number] [id number] [place] [address] * TELEMETRY REPORT (01/17/2025 3:48 AM CDT) us Provider Scanning ECG ORDERABLES Final Result * (ABNORMAL) POC GLUCOSE (01/17/2025 12:19 AM CDT) GLUCOSE POC 104(H) 74 - 99 mg/dL 01/17/2025 12:19 AM CDT [facility] SPECIMEN SOURCE, GLUCOSE POC Capillary 01/17/2025 12:19 AM CDT [facility] Blood, whole 01/17/2025 12:1 9 AM CDT 01/17/2025 12:27 AM CDT Shirley Paz MD POINT OF CARE TESTIN G Final Result Performing Organization Address [facility] Co de Phone Number [facility] CLIA # [id number] [id number] [place] [address] * POC GLUCOSE (01/16/2025 8:07 PM CDT) GLUCOSE POC 86 74 - 99 mg/dL 01/16/2025 8:07 PM CDT [facility] SPECIMEN SOURCE, GLUCOSE POC Capillary 01/16/2025 8:07 PM CDT [facility] Blood, whole 01/16/2025 8:07 PM CDT 01/16/2025 8:27 PM CDT Shirley Paz MD POINT OF CARE TESTIN G Final Result [facility] CLIA # [id number] [address] [address] * POC GLUCOSE (01/16/2025 5:20 PM CDT) GLUCOSE POC 95 74 - 99 mg/dL 01/16/2025 5:20 PM CDT [facility] SPECIMEN SOURCE, GLUCOSE POC Capillary 01/16/2025 5:20 PM CDT [facility] Blood, whole 01/16/2025 5:20 PM CDT 01/16/2025 5:52 PM CDT us Shirley Paz MD POINT OF CARE TESTIN G Final Result Performing Organization Address [facility]/ZIP Co de Phone Number [facility] CLIA # [id number] [address] [address] * (ABNORMAL) POC GLUCOSE (01/16/2025 12:00 PM CDT) GLUCOSE POC 137(H) 74 - 99 mg/dL 01/16/2025 12:00 PM CDT [facility] SPECIMEN SOURCE, GLUCOSE POC Capillary 01/16/2025 12:00 PM CDT [facility] Blood, whole 01/16/2025 12:0 0 PM CDT 01/16/2025 12:08 PM CDT Shirley Paz MD POINT OF CARE TESTIN G Final Result Performing Organization Address City/[facility]/ZIP Co de Phone Number [facility] CLIA # [id number] [address] [address] [place] [address] * ECHOCARDIOGRAM W/ CONTRAST AGENT (01/16/2025 10:08 AM CDT) EJECTION FRACTION 55 INTERFACE SYSTEM 01/16/2025 9:38 AM CDT Narrative INTERFACE SYSTEM - 01/16/2025 12:05 PM CDT [facility] Cardiovascular Services Echocardiography Laboratory [address] [place] [id number] Transthoracic Echocardiography Patient: Tiffany Sexton Study ID: ECHO COMPLETE - Gender: F : 1950 Age: 74 Room: [facility] Study Date: 01/16/2025 Pt Status: Inpatient Study Time: 09:38:39 AM CSN #: [id number] Ordering:Gardenia Berry [employer] Library Clerk: KIKE Indications and History: Chest discomfort, low QRS volume. Labs, prior tests, procedures, and surgery: Transthoracic echocardiogram (11/15/2024). EF was 57%. Summary and Conclusion: - Left ventricle: The cavity size is normal. Wall thickness is normal. Global systolic function is normal. The estimated ejection fraction is 55-60%. For Epic reporting: the left ventricular ejection fraction is 55% by visual assessment. No diagnostic regional wall motion abnormality identified. Left ventricular diastolic function parameters are normal. The longitudinal strain is -14.4% (Normal range is -18 to -25). - Right ventricle: The cavity size is normal. Systolic function is normal. Systolic pressure is mildly increased. The estimated peak pressure is 44mm Hg. - Aortic valve: Not well visualized. The peak systolic velocity is 148.3cm/sec. - Pericardium: A minimal pericardial effusion and/or fat pad was identified. - Inferior vena cava: The IVC is dilated. Respirophasic diameter changes are blunted (< 50%), consistent with elevated central venous pressure. Comparison: No previous study was available for comparison. Procedure information: Comparison is made to the study of November 2024. Study status: Routine. Procedure: A transthoracic echocardiogram was performed. Image quality was adequate. The study was technically limited due to poor acoustic window availability and restricted patient mobility. Scanning was performed from the parasternal, apical, subcostal, and suprasternal notch acoustic windows. Intravenous contrast (Definity) was administered. There were no complications. There were no contrast reactions. Contrast study performed to evaluate left ventricular endocardial borders due to suboptimal non-contrast images. Study components: M-mode, 2D, complete spectral Doppler, and color Doppler. Height: 167.6cm. Height: 66in. Weight: 80.3kg. Weight: 177lb. BMI: 28.6kg/m^2. BSA: 1.95m^2. Blood pressure: 108/52 Study date: 01/16/2025. Study time: 09:38 AM. Location: Bedside. Cardiac Anatomy: LEFT VENTRICLE: The cavity size is normal. Wall thickness is normal. Global systolic function is normal. The estimated ejection fraction is 55-60%. For Epic reporting: the left ventricular ejection fraction is 55% by visual assessment. No diagnostic regional wall motion abnormality identified. The longitudinal strain is -14.4% (Normal range is -18 to -25). Left ventricular diastolic function parameters are normal. RIGHT VENTRICLE: The cavity size is normal. Systolic function is normal. Systolic pressure is mildly increased. The estimated peak pressure is 44mm Hg. LEFT ATRIUM: The atrium is normal in size. RIGHT ATRIUM: The atrium is normal in size. ATRIAL SEPTUM: Not well visualized. AORTIC VALVE: Not well visualized. There is no stenosis. There is no significant regurgitation. MITRAL VALVE: Structurally normal valve. Mobility is not restricted. No evidence for prolapse. There is no evidence for stenosis. There is no significant regurgitation. TRICUSPID VALVE: Structurally normal valve. Mobility is unrestricted. There is no evidence for stenosis. There is no significant regurgitation. PULMONIC VALVE: Not well visualized. The valve appears to be grossly normal. There is no evidence for stenosis. There is no significant regurgitation. PERICARDIUM: A minimal pericardial effusion and/or fat pad was identified. AORTA: Aortic root: The root is not dilated. Aortic arch: The vessel is not dilated. INTRACARDIAC MASS THROMBUS: No apparent intracavitary masses or thrombi detected. Measurements Left ventricle Value LVOT Value GLS, 2D -14.4 % Peak demetrice, S 122.96 cm/sec TREVOR, LAX 4.8 cm Peak grad, S 6 mm Hg ESD, LAX 3.4 cm TREVOR/bsa, LAX 2.4 cm/m^2 Right ventricle Value ESD/bsa, LAX 1.7 cm/m^2 TREVOR, LAX 2.5 cm FS, LAX 29 % TAPSE, MM 2.8 cm FS, LAX chord 29 % S' lateral 17.7 cm/sec ESD major ax, A4C 7.1 cm ESD/bsa major ax, A4C 3.6 cm/m^2 Left atrium Value TREVOR minor ax, A4C 7.1 cm AP dim, ES 3.7 cm TREVOR/bsa minor ax, A4C 3.6 cm/m^2 AP dim index, ES 1.9 cm/m^2 TREVOR major ax, A2C 8.1 cm SI dim, A4C 6.4 cm ESD major ax, A2C 6.7 cm Area ES, A4C 21 cm^2 TREVOR/bsa major ax, A2C 4.1 cm/m^2 Vol, S 58 ml ESD/bsa major ax, A2C 3.4 cm/m^2 Vol/bsa, S 30 ml/m^2 IVS, ED 0.9 cm Vol, ES, 1-p A4C 54 ml ESD 3.4 cm Vol/bsa, ES, 1-p A4C 28 ml/m^2 ESD/bsa 1.7 cm/m^2 Vol, ES, 1-p A2C 57 ml FS 29 % Vol/bsa, ES, 1-p A2C 29 ml/m^2 PW, ED 1.0 cm Vol, ES, 2-p 56 ml IVS/PW, ED 0.95 Vol/bsa, ES, 2-p 29 ml/m^2 EDV, 1-p A2C 100 ml Vol, ES, A/L 57 ml ESV, 1-p A2C 59 ml Vol/bsa, ES, A/L 29 ml/m^2 EF, 1-p A2C 59 % EDV/bsa, 1-p A2C 51 ml/m^2 Right atrium Value ESV/bsa, 1-p A2C 30 ml/m^2 Area, ES, A4C 16 cm^2 EDV, 1-p A4C 86 ml ESV, 1-p A4C 45 ml Aortic valve Value EF, 1-p A4C 48 % Peak v, S 148.3 cm/sec SV, 1-p A4C 41 ml Peak grad, S 9 mm Hg EDV/bsa, 1-p A4C 44 ml/m^2 LVOT/AV, Vpeak ratio 0.83 ESV/bsa, 1-p A4C 23 ml/m^2 SV/bsa, 1-p A4C 21 ml/m^2 Mitral valve Value EDV, 2-p 93 ml Peak E 94.85 cm/sec ESV, 2-p 44 ml Peak A 105.67 cm/sec EF, 2-p 53 % Decel slope 552.67 cm/s^2 SV, 2-p 41 ml Decel time 172 ms EDV/bsa, 2-p 48 ml/m^2 Peak grad, D 4 mm Hg ESV/bsa, 2-p 23 ml/m^2 Peak E/A ratio 0.9 SV/bsa, 2-p 21.1 ml/m^2 E', lat claudia, TDI 11.1 cm/sec Tricuspid valve Value E/e', lat claudia, TDI 9 TR peak v 268.31 cm/sec E', med claudia, TDI 8.3 cm/sec Peak RV-RA grad, S 29 mm Hg E/e', med claudia, TDI 11 E', avg, TDI 9.7 cm/sec Aortic root Value E/e', avg, TDI 10 Root diam 2.8 cm Root diam/bsa 1.4 cm/m^2 Legend: (L) and (H) sukh values outside specified reference range. [facility] are accredited with the Intersocietal Accreditation Commission - Echocardiography. Prepared and Electronically Authenticated Miguel Glover Confirmed 01/16/2025 12:05 Procedure Note Miguel Glover MD - 01/16/2025 [facility] Cardiovascular Services Echocardiography Laboratory [address] [place] [id number] Transthoracic Echocardiography Patient: Tiffany Sexton Study ID: ECHOCOMPLETE - Gender: F : 1950 Age: 74 Room: [facility] Study Date: 01/16/2025 Pt Status: Inpatient Study Time: 09:38:39 AM CSN #: [id number] Ordering:Gardenia Berry [employer] Library Clerk: KIKE Indications and History: Chest discomfort, low QRS volume. Labs, prior tests, procedures, and surgery: Transthoracic echocardiogram (11/15/2024). EF was 57%. Summary and Conclusion: - Left ventricle: The cavity size is normal. Wall thickness is normal.Global systolic function is normal. The estimated ejection fraction is 55-60%.For Epic reporting: the left ventricular ejection fraction is 55% byvisual assessment. No diagnostic regional wall motion abnormality identified.Left ventricular diastolic function parameters are normal. The longitudinal strain is -14.4% (Normal range is -18 to -25). - Right ventricle: The cavity size is normal. Systolic function isnormal. Systolic pressure is mildly increased. The estimated peak pressure is44mm Hg. - Aortic valve: Not well visualized. The peak systolic velocity is 148.3cm/sec. - Pericardium: A minimal pericardial effusion and/or fat pad wasidentified. - Inferior vena cava: The IVC is dilated. Respirophasic diameter changesare blunted (< 50%), consistent with elevated central venous pressure. Comparison: No previous study was available for comparison. Procedure information: Comparison is made to the study of November 2024.Study status: Routine. Procedure: A transthoracic echocardiogram wasperformed. Image quality was adequate. The study was technically limited due topoor acoustic window availability and restricted patient mobility. Scanningwas performed from the parasternal, apical, subcostal, and suprasternalnotch acoustic windows. Intravenous contrast (Definity) was administered. Therewere no complications. There were no contrast reactions. Contrast studyperformed to evaluate left ventricular endocardial borders due to suboptimal non-contrast images. Study components: M-mode, 2D, completespectral Doppler, and color Doppler. Height: 167.6cm. Height: 66in. Weight: 80.3kg. Weight: 177lb. BMI: 28.6kg/m^2. BSA: 1.95m^2. Bloodpressure: 108/52 Study date: 01/16/2025. Study time: 09:38 AM. Location: Bedside. Cardiac Anatomy: LEFT VENTRICLE: The cavity size is normal. Wall thickness is normal.Global systolic function is normal. The estimated ejection fraction is 55-60%.For Epic reporting: the left ventricular ejection fraction is 55% by visual assessment. No diagnostic regional wall motion abnormality identified.The longitudinal strain is -14.4% (Normal range is -18 to -25). Leftventricular diastolic function parameters are normal. RIGHT VENTRICLE: The cavity size is normal. Systolic function isnormal. Systolic pressure is mildly increased. The estimated peak pressure is 44mmHg. LEFT ATRIUM: The atrium is normal in size. RIGHT ATRIUM: The atrium is normal in size. ATRIAL SEPTUM: Not well visualized. AORTIC VALVE: Not well visualized. There is no stenosis. There is no significant regurgitation. MITRAL VALVE: Structurally normal valve. Mobility is not restricted.No evidence for prolapse. There is no evidence for stenosis. There is no significant regurgitation. TRICUSPID VALVE: Structurally normal valve. Mobility isunrestricted. There is no evidence for stenosis. There is no significantregurgitation. PULMONIC VALVE: Not well visualized. The valve appears to be grosslynormal. There is no evidence for stenosis. There is no significantregurgitation. PERICARDIUM: A minimal pericardial effusion and/or fat pad wasidentified. AORTA: Aortic root: The root is not dilated. Aortic arch: The vessel is not dilated. INTRACARDIAC MASS THROMBUS: No apparent intracavitary masses or thrombi detected. Measurements Left ventricle Value LVOT Value GLS, 2D -14.4 % Peak demetrice, S 122.96cm/sec TREVOR, LAX 4.8 cm Peak grad, S 6 mm Hg ESD, LAX 3.4 cm TREVOR/bsa, LAX 2.4 cm/m^2 Right ventricle Value ESD/bsa, LAX 1.7 cm/m^2 TREVOR, LAX 2.5 cm FS, LAX 29 % TAPSE, MM 2.8 cm FS, LAX chord 29 % S' lateral 17.7cm/sec ESD major ax, A4C 7.1 cm ESD/bsa major ax, A4C 3.6 cm/m^2 Left atrium Value TREVOR minor ax, A4C 7.1 cm AP dim, ES 3.7 cm TREVOR/bsa minor ax, A4C 3.6 cm/m^2 AP dim index, ES 1.9cm/m^2 TREVOR major ax, A2C 8.1 cm SI dim, A4C 6.4 cm ESD major ax, A2C 6.7 cm Area ES, A4C 21 cm^2 TREVOR/bsa major ax, A2C 4.1 cm/m^2 Vol, S 58 ml ESD/bsa major ax, A2C 3.4 cm/m^2 Vol/bsa, S 30ml/m^2 IVS, ED 0.9 cm Vol, ES, 1-p A4C 54 ml ESD 3.4 cm Vol/bsa, ES, 1-p A4C 28ml/m^2 ESD/bsa 1.7 cm/m^2 Vol, ES, 1-p A2C 57 ml FS 29 % Vol/bsa, ES, 1-p A2C 29ml/m^2 PW, ED 1.0 cm Vol, ES, 2-p 56 ml IVS/PW, ED 0.95 Vol/bsa, ES, 2-p 29ml/m^2 EDV, 1-p A2C 100 ml Vol, ES, A/L 57 ml ESV, 1-p A2C 59 ml Vol/bsa, ES, A/L 29ml/m^2 EF, 1-p A2C 59 % EDV/bsa, 1-p A2C 51 ml/m^2 Right atrium Value ESV/bsa, 1-p A2C 30 ml/m^2 Area, ES, A4C 16 cm^2 EDV, 1-p A4C 86 ml ESV, 1-p A4C 45 ml Aortic valve Value EF, 1-p A4C 48 % Peak v, S 148.3cm/sec SV, 1-p A4C 41 ml Peak grad, S 9 mm Hg EDV/bsa, 1-p A4C 44 ml/m^2 LVOT/AV, Vpeak ratio 0.83 ESV/bsa, 1-p A4C 23 ml/m^2 SV/bsa, 1-p A4C 21 ml/m^2 Mitral valve Value EDV, 2-p 93 ml Peak E 94.85cm/sec ESV, 2-p 44 ml Peak A 105.67cm/sec EF, 2-p 53 % Decel slope 552.67cm/s^2 SV, 2-p 41 ml Decel time 172 ms EDV/bsa, 2-p 48 ml/m^2 Peak grad, D 4 mm Hg ESV/bsa, 2-p 23 ml/m^2 Peak E/A ratio 0.9 SV/bsa, 2-p 21.1 ml/m^2 E', lat claudia, TDI 11.1 cm/sec Tricuspid valve Value E/e', lat claudia, TDI 9 TR peak v 268.31cm/sec E', med lcaudia, TDI 8.3 cm/sec Peak RV-RA grad, S 29 mm Hg E/e', med claudia, TDI 11 E', avg, TDI 9.7 cm/sec Aortic root Value E/e', avg, TDI 10 Root diam 2.8 cm Root diam/bsa 1.4cm/m^2 Legend: (L) and (H) sukh values outside specified reference range. [facility] are accredited with theIntersocietal Accreditation Commission - Echocardiography. Prepared and Electronically Authenticated Miguel Glover Confirmed 01/16/2025 12:05 us Gardenia Berry MD US ORDERABLES Final Result INTERFACE SYSTEM Refer to clinic/hospital department * (ABNORMAL) POC GLUCOSE (01/16/2025 7:20 AM CDT) GLUCOSE POC 131(H) 74 - 99 mg/dL 01/16/2025 7:20 AM CDT [facility] SPECIMEN SOURCE, GLUCOSE POC Capillary 01/16/2025 7:20 AM CDT [facility] Blood, whole 01/16/2025 7:20 AM CDT 01/16/2025 7:47 AM CDT Shirley Paz MD POINT OF CARE TESTIN G Final Result [facility] # [id number] [address] [place] [id number] * (ABNORMAL) BASIC METABOLIC PANEL (01/16/2025 4:32 AM CDT) Pathologist [facility] SODIUM 145 136 - 145 mmol/L 01/16/2025 5:55 AM T [facility] POTASSIUM 3.7 3.5 - 5.1 mmol/L 01/16/2025 5:55 AM T [facility] CHLORIDE 111(H) 98 - 107 mmol/L 01/16/2025 5:55 AM T [facility] CO2 25 22 - 29 mmol/L 01/16/2025 5:55 AM T [facility] CALCIUM 7.9(L) 8.8 - 10.2 mg/dL 01/16/2025 5:55 AM T [facility] BUN 7(L) 8 - 23 mg/dL 01/16/2025 5:55 AM T [facility] CREATININE 0.40(L) 0.51 - 0.95 mg/dL 01/16/2025 5:55 AM T [facility] Comment:The GFR result is no t clinically significant on patients <18 or >70 years of age. GLUCOSE 108(H) 74 - 99 mg/dL 01/16/2025 5:55 AM T [facility] GFR >60 mL/min/1. 73 sq meter 01/16/2025 5:55 AM CDT [facility] Comment:eGFR calculated with 2020 CKD-EPI equation. Vegetarian diet, extremely high or low muscle mass, and may affect results. Cystatin C with Glomerular Filtration Rate is a suitable alternative for these patients. ANION GAP 9 9 - 20 mmol/L 01/16/2025 5:55 AM CDT [facility] Blood Venipuncture / Unknown 01/16/2025 4:32 AM CDT 01/16/2025 5:15 AM CDT Shirley Paz MD CHEMISTRY ORDERABLES Final Result Performing Organization Address [facility] Co de Phone Number [facility] CLIA # [id number] [address] [address] * (ABNORMAL) POC GLUCOSE (01/16/2025 4:30 AM CDT) GLUCOSE POC 110(H) 74 - 99 mg/dL 01/16/2025 4:30 AM CDT [facility] SPECIMEN SOURCE, GLUCOSE POC Venous 01/16/2025 4:30 AM CDT [facility] Blood, whole 01/16/2025 4:30 AM CDT 01/16/2025 4:50 AM CDT us Shirley Paz MD POINT OF CARE TESTIN G Final Result Performing Organization Address [facility]/ZIP Co de Phone Number [facility] CLIA # [id number] [address] [address] * (ABNORMAL) POC GLUCOSE (01/16/2025 12:36 AM CDT) GLUCOSE POC 124(H) 74 - 99 mg/dL 01/16/2025 12:36 AM CDT [facility] SPECIMEN SOURCE, GLUCOSE POC Capillary 01/16/2025 12:36 AM CDT [facility] Blood, whole 01/16/2025 12:3 6 AM CDT 01/16/2025 12:50 AM CDT Shirley Paz MD POINT OF CARE TESTIN G Final Result Performing Organization Address City/[facility]/ZIP Co de Phone Number [facility] CLIA # [id number] [address] [facility] [place] [address] * (ABNORMAL) POC GLUCOSE (01/15/2025 10:01 PM CDT) GLUCOSE POC 118(H) 74 - 99 mg/dL 01/15/2025 10:01 PM CDT [facility] SPECIMEN SOURCE, GLUCOSE POC Capillary 01/15/2025 10:01 PM CDT [facility] Blood, whole 01/15/2025 10:0 1 PM CDT 01/15/2025 10:27 PM CDT Shirley Paz MD POINT OF CARE TESTIN G Final Result Performing Organization Address [facility]/ZIP Co de Phone Number [facility] CLIA # [id number] [address] [place] [address] * (ABNORMAL) POC GLUCOSE (01/15/2025 5:12 PM CDT) GLUCOSE POC 121(H) 74 - 99 mg/dL 01/15/2025 5:12 PM CDT [facility] SPECIMEN SOURCE, GLUCOSE POC Capillary 01/15/2025 5:12 PM CDT [facility] Blood, whole 01/15/2025 5:12 PM CDT 01/15/2025 6:07 PM CDT us Shirley Paz MD POINT OF CARE TESTIN G Final Result Performing Organization Address City/[facility]/ZIP Co de Phone Number [facility] CLIA # [id number] [address] [facility] [place], [place] [address] * (ABNORMAL) POC GLUCOSE (01/15/2025 8:09 AM CDT) GLUCOSE POC 135(H) 74 - 99 mg/dL 01/15/2025 8:09 AM CDT [facility] SPECIMEN SOURCE, GLUCOSE POC Capillary 01/15/2025 8:09 AM CDT [facility] Blood, whole 01/15/2025 8:09 AM CDT 01/15/2025 8:35 AM CDT us Shirley Paz MD POINT OF CARE TESTIN G Final Result Performing Organization Address [facility] Co de Phone Number [facility] CLIA # [id number] [id number] [place], [place] [id number] * MAGNESIUM LEVEL (01/15/2025 4:16 AM CDT) Pathologist [facility] MAGNESIUM 2.3 1.6 - 2.4 mg/dL 01/15/2025 5:56 AM CDT [facility] Blood Venipuncture / Unknown 01/15/2025 4:16 AM CDT 01/15/2025 5:18 AM CDT us Shirley Paz MD CHEMISTRY ORDERABLES Final Result Performing Organization Address City/[facility]/ZIP Co de Phone Number [facility] CLIA # [id number] [address] [place] [address] * (ABNORMAL) BASIC METABOLIC PANEL (01/15/2025 4:16 AM CDT) SODIUM 143 136 - 145 mmol/L 01/15/2025 5:56 AM T [facility] POTASSIUM 3.3(L) 3.5 - 5.1 mmol/L 01/15/2025 5:56 AM T [facility] CHLORIDE 110(H) 98 - 107 mmol/L 01/15/2025 5:56 AM T [facility] CO2 24 22 - 29 mmol/L 01/15/2025 5:56 AM T [facility] CALCIUM 7.8(L) 8.8 - 10.2 mg/dL 01/15/2025 5:56 AM T [facility] BUN 3(L) 8 - 23 mg/dL 01/15/2025 5:56 AM T [facility] CREATININE 0.50(L) 0.51 - 0.95 mg/dL 01/15/2025 5:56 AM [facility] Comment:The GFR result is no t clinically significant on patients <18 or >70 years of age. GLUCOSE 135(H) 74 - 99 mg/dL 01/15/2025 5:56 AM [facility] GFR >60 mL/min/1. 73 sq meter 01/15/2025 5:56 AM [facility] Comment:eGFR calculated with 2020 CKD-EPI equation. Vegetarian diet, extremely high or low muscle mass, and may affect results. Cystatin C with Glomerular Filtration Rate is a suitable alternative for these patients. ANION GAP 9 9 - 20 mmol/L 01/15/2025 5:56 AM [facility] Blood Venipuncture / Unknown 01/15/2025 4:16 AM CDT 01/15/2025 5:18 AM CDT us Shirley Paz MD CHEMISTRY ORDERABLES Final Result [facility] CLIA # [id number] [address] [place], [place] [id number] * (ABNORMAL) POC GLUCOSE (01/15/2025 4:06 AM CDT) GLUCOSE POC 123(H) 74 - 99 mg/dL 01/15/2025 4:06 AM CDT [facility] SPECIMEN SOURCE, GLUCOSE POC Capillary 01/15/2025 4:06 AM CDT [facility] Blood, whole 01/15/2025 4:06 AM CDT 01/15/2025 4:27 AM CDT us Shirley Paz MD POINT OF CARE TESTIN G Final Result Performing Organization Address City/[facility]/ZIP Co de Phone Number [facility] CLIA # [id number] [address] [place] [address] * (ABNORMAL) POC GLUCOSE (01/15/2025 1:25 AM CDT) GLUCOSE POC 123(H) 74 - 99 mg/dL 01/15/2025 1:25 AM CDT [facility] SPECIMEN SOURCE, GLUCOSE POC Capillary 01/15/2025 1:25 AM CDT [facility] Blood, whole 01/15/2025 1:25 AM CDT 01/15/2025 1:33 AM CDT us Shirley Paz MD POINT OF CARE TESTIN G Final Result [facility] CLIA # [id number] [address] [place] [address] * (ABNORMAL) POC GLUCOSE (01/14/2025 7:59 PM CDT) GLUCOSE POC 111(H) 74 - 99 mg/dL 01/14/2025 7:59 PM CDT [facility] SPECIMEN SOURCE, GLUCOSE POC Capillary 01/14/2025 7:59 PM CDT [facility] Blood, whole 01/14/2025 7:59 PM CDT 01/14/2025 10:22 PM CDT Shirley Paz MD POINT OF CARE TESTIN G Final Result Performing Organization Address [facility]/ZIP Co de Phone Number [facility] CLIA # [id number] [address] [id number] * (ABNORMAL) POC GLUCOSE (01/14/2025 4:01 PM CDT) GLUCOSE POC 112(H) 74 - 99 mg/dL 01/14/2025 4:01 PM CDT [facility] SPECIMEN SOURCE, GLUCOSE POC Capillary 01/14/2025 4:01 PM CDT [facility] Blood, whole 01/14/2025 4:01 PM CDT 01/14/2025 4:08 PM CDT us Shirley Paz MD POINT OF CARE TESTIN G Final Result [facility] CLIA # [id number] [address] [id number] * (ABNORMAL) POC GLUCOSE (01/14/2025 6:52 AM CDT) GLUCOSE POC 102(H) 74 - 99 mg/dL 01/14/2025 6:52 AM CDT [facility] SPECIMEN SOURCE, GLUCOSE POC Capillary 01/14/2025 6:52 AM CDT [facility] Blood, whole 01/14/2025 6:52 AM CDT 01/14/2025 6:59 AM CDT Shirley Paz MD POINT OF CARE TESTIN G Final Result Performing Organization Address [facility] Co de Phone Number [facility] CLIA # [id number] [address] [address] [place] [address] * POC GLUCOSE (01/14/2025 4:15 AM CDT) GLUCOSE POC 95 74 - 99 mg/dL 01/14/2025 4:15 AM CDT [facility] SPECIMEN SOURCE, GLUCOSE POC Capillary 01/14/2025 4:15 AM CDT [facility] COMMENT, GLU POC Alerted Nurse/TARA/DR 01/14/2025 4:15 AM CDT [facility] Blood, whole 01/14/2025 4:15 AM CDT 01/14/2025 4:30 AM CDT us Shirley Paz MD POINT OF CARE TESTIN G Final Result Performing Organization Address [facility] Co de Phone Number [facility] CLIA # [id number] [address] [address] [place] [address] * MAGNESIUM LEVEL (01/14/2025 12:59 AM CDT) MAGNESIUM 1.6 1.6 - 2.4 mg/dL 01/14/2025 1:35 AM CDT [facility] Blood Venipuncture / Unknown 01/14/2025 12:59 AM CDT 01/14/2025 1:02 AM CDT Shirley Paz MD CHEMISTRY ORDERABLES Final Result [facility] CLIA # [id number] [address] [place] [address] [place] [address] * (ABNORMAL) BASIC METABOLIC PANEL (01/14/2025 12:59 AM CDT) SODIUM 141 136 - 145 mmol/L 01/14/2025 1:35 AM T [facility] POTASSIUM 3.2(L) 3.5 - 5.1 mmol/L 01/14/2025 1:35 AM [facility] CHLORIDE 106 98 - 107 mmol/L 01/14/2025 1:35 AM T [facility] CO2 24 22 - 29 mmol/L 01/14/2025 1:35 AM [facility] CALCIUM 8.2(L) 8.8 - 10.2 mg/dL 01/14/2025 1:35 AM T [facility] BUN 2(L) 8 - 23 mg/dL 01/14/2025 1:35 AM [facility] CREATININE 0.46(L) 0.51 - 0.95 mg/dL 01/14/2025 1:35 AM T [facility] Comment:The GFR result is no t clinically significant on patients <18 or >70 years of age. GLUCOSE 93 74 - 99 mg/dL 01/14/2025 1:35 AM [facility] GFR >60 mL/min/1. 73 sq meter 01/14/2025 1:35 AM [facility] Comment:eGFR calculated with 2020 CKD-EPI equation. Vegetarian diet, extremely high or low muscle mass, and may affect results. Cystatin C with Glomerular Filtration Rate is a suitable alternative for these patients. ANION GAP 11 9 - 20 mmol/L 01/14/2025 1:35 AM [facility] Blood Venipuncture / Unknown 01/14/2025 12:59 AM CDT 01/14/2025 1:02 AM CDT us Shirley Paz MD CHEMISTRY ORDERABLES Final Result [facility] CLIA # [id number] [address] [facility] [place] [address] * (ABNORMAL) CBC WITH DIFFERENTIAL (01/14/2025 12:59 AM CDT) [facility] WBC 3.8(L) 4.8 - 10.8 K/uL 01/14/2025 1:06 AM CDT [facility] RBC 3.84(L) 4.20 - 5.40 M/uL 01/14/2025 1:06 AM CDT [facility] HEMOGLOBIN 10.3(L) 12.0 - 16.0 g/dL 01/14/2025 1:06 AM CDT [facility] HEMATOCRIT 30.7(L) 36.0 - 46.0 % 01/14/2025 1:06 AM CDT [facility] MCV 79.9(L) 84.0 - 103.0 fL 01/14/2025 1:06 AM CDT [facility] MCH 26.8(L) 27.0 - 34.0 pg 01/14/2025 1:06 AM CDT [facility] MCHC 33.6 30.0 - 35.0 g/dL 01/14/2025 1:06 AM CDT [facility] PLATELETS 294 140 - 440 K/uL 01/14/2025 1:06 AM CDT [facility] MPV 9.1 8.9 - 12.8 fL 01/14/2025 1:06 AM CDT [facility] RDW 20.9(H) 11.0 - 14.5 % 01/14/2025 1:06 AM CDT [facility] RDW-STDEV 57.1(H) 37.0 - 54.0 fL 01/14/2025 1:06 AM CDT [facility] NEUTROPHILS 51 42 - 75 % 01/14/2025 1:06 AM T [facility] LYMPHOCYTES 29 24 - 44 % 01/14/2025 1:06 AM T [facility] MONOCYTES 15(H) 2 - 10 % 01/14/2025 1:06 AM T [facility] EOSINOPHILS 5 0 - 7 % 01/14/2025 1:06 AM T [facility] BASOPHILS 1 0 - 1 % 01/14/2025 1:06 AM T [facility] IMMATURE GRANULOCYTES 0 0 - 2 % 01/14/2025 1:06 AM T [facility] NEUTROPHIL ABSOLUTE 1.93(L) 2.00 - 8.00 K/uL 01/14/2025 1:06 AM T [facility] LYMPHOCYTE ABSOLUTE 1.08(L) 1.20 - 4.00 K/uL 01/14/2025 1:06 AM T [facility] MONOCYTE ABSOLUTE 0.55 0.10 - 0.60 K/uL 01/14/2025 1:06 AM T [facility] EOSINOPHIL ABSOLUTE 0.17 0.00 - 0.70 K/uL 01/14/2025 1:06 AM CDT [facility] BASOPHILS ABSOLUTE 0.02 0.00 - 0.20 K/uL 01/14/2025 1:06 AM [facility] IMMATURE GRANULOCYTES ABSOLUTE 0.01 0.00 - 0.10 K/uL 01/14/2025 1:06 AM [facility] SMEAR REVIEWED: NA - Not Applicable 01/14/2025 1:06 AM [facility] Blood Venipuncture / Unknown 01/14/2025 12:59 AM CDT 01/14/2025 1:01 AM CDT us Shirley Paz MD HEMATOLOGY ORDERABLE S Final Result [facility] CLIA # [id number] [id number] [place] [address] * POC GLUCOSE (01/14/2025 12:56 AM CDT) GLUCOSE POC 88 74 - 99 mg/dL 01/14/2025 12:56 AM CDT [facility] SPECIMEN SOURCE, GLUCOSE POC Capillary 01/14/2025 12:56 AM CDT [facility] Blood, whole 01/14/2025 12:5 6 AM CDT 01/14/2025 1:04 AM CDT us Shirley Paz MD POINT OF CARE TESTIN G Final Result Performing Organization Address [facility] Co de Phone Number [facility] CLIA # [id number] [address] [address] [place] [address] * (ABNORMAL) POC GLUCOSE (01/13/2025 8:23 PM CDT) GLUCOSE POC 103(H) 74 - 99 mg/dL 01/13/2025 8:23 PM CDT [facility] SPECIMEN SOURCE, GLUCOSE POC Capillary 01/13/2025 8:23 PM CDT [facility] Blood, whole 01/13/2025 8:23 PM CDT 01/13/2025 11:41 PM CDT us Shirley Paz MD POINT OF CARE TESTIN G Final Result Performing Organization Address City/[facility]/ZIP Co de Phone Number [facility] CLIA # [id number] [address] [address] [place] [address] * POC GLUCOSE (01/13/2025 5:14 PM CDT) GLUCOSE POC 97 74 - 99 mg/dL 01/13/2025 5:14 PM CDT [facility] SPECIMEN SOURCE, GLUCOSE POC Capillary 01/13/2025 5:14 PM CDT [facility] Blood, whole 01/13/2025 5:14 PM CDT 01/13/2025 5:27 PM CDT Shirley Paz MD POINT OF CARE TESTIN G Final Result [facility] CLIA # [id number] [address] [place] [address] * EKG 12-LEAD (01/13/2025 4:42 PM CDT) 01/13/2025 4:42 PM CDT Narrative INTERFACE SYSTEM - 01/15/2025 2:11 PM [address] [address] Test Date: 2025-01-13 Pat Name: TIFFANY SEXTON Department: 12 Room: [address] [place] [address] Gender: Female 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: telma : 1950 Requested By: Order Number: [id number] Reading MD: Alesha Babb Measurements Intervals [place] Rate: 160 P: 0 ID: [id number] QRS: 6 QRSD: 72 T: 134 QT: 256 QTc: 417 Interpretive Statements Critical Test Result: High HR Undetermined rhythm, likely atrial flutter Low voltage QRS Cannot rule out Anteroseptal infarct, age undetermined Abnormal ECG Critical EKG reported to Cathie Santos RN with readback on 01/13/2025 @ 1645 by telma Electronically Signed On 01-15-2025 14:11:07 CDT by Alesha Babb Procedure Note Provider, Historical - 01/15/[address] [address] Test Date: 2025-01-13 Pat Name: TIFFANY DARSHAN Department: 12 Room: [address] [place] [address] Gender: Female 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: [email or web address] : 1950 Requested By: Order Number: [id number] Reading MD: Alesha Babb Measurements Intervals [place] Rate: 160 P: 0 ID: [id number] QRS: 6 QRSD: 72 T: 134 QT: 256 QTc: 417 Interpretive Statements Critical Test Result: High HR Undetermined rhythm, likely atrial flutter Low voltage QRS Cannot rule out Anteroseptal infarct, age undetermined Abnormal ECG Critical EKG reported to Cathie Santos RN with readback on 01/13/2025@ 3868 by telma Electronically Signed On 01-15-2025 14:11:07 CDT by Alesha Babb us Shirley Paz MD ECG ORDERABLES Christiana l Result INTERFACE SYSTEM Refer to clinic/hospital department * (ABNORMAL) COMPREHENSIVE METABOLIC PANEL (01/13/2025 1:40 PM CDT) SODIUM 136 136 - 145 mmol/L 01/13/2025 2:17 PM [address] [facility] POTASSIUM 3.0(L) 3.5 - 5.1 mmol/L 01/13/2025 2:[address] [facility] CHLORIDE 104 98 - 107 mmol/L 01/13/2025 2:17 PM CDT [facility] CO2 20(L) 22 - 29 mmol/L 01/13/2025 2:[address] [facility] [employer] [facility] CALCIUM 7.9(L) 8.8 - 10.2 mg/dL 01/13/2025 2:17 PM CDT [facility] BUN 3(L) 8 - 23 mg/dL 01/13/2025 2:17 PM CDT [facility] CREATININE 0.45(L) 0.51 - 0.95 mg/dL 01/13/2025 2:17 PM [address] [facility] Comment:The GFR result is no t clinically significant on patients <18 or >70 years of age. GLUCOSE 94 74 - 99 mg/dL 01/13/2025 2:17 PM CDT [facility] TOTAL PROTEIN 5.0(L) 6.4 - 8.3 g/dL 01/13/2025 2:17 PM CDT [facility] ALBUMIN 3.5 3.5 - 5.2 g/dL 01/13/2025 2:17 PM CDT [facility] BILIRUBIN TOTAL 0.6 0.0 - 1.0 mg/dL 01/13/2025 2:17 PM CDT [facility] ALKALINE PHOSPHATASE 62 35 - 104 U/L 01/13/2025 2:17 PM T [facility] AST 31 10 - 35 U/L 01/13/2025 2:17 PM T [facility] Comment:Hemolysis present. R esult may be falsely elevated. ALT 9 <=35 U/L 01/13/2025 2:17 PM T [facility] GFR >60 mL/min/1. 73 sq meter 01/13/2025 2:17 PM [facility] Comment:eGFR calculated with 2020 CKD-EPI equation. Vegetarian diet, extremely high or low muscle mass, and may affect results. Cystatin C with Glomerular Filtration Rate is a suitable alternative for these patients. ANION GAP 12 9 - 20 mmol/L 01/13/2025 2:17 PM [facility] Blood Venipuncture / Unknown 01/13/2025 1:40 PM CDT 01/13/2025 1:45 PM CDT Gardenia Berry MD CHEMISTRY ORDERABLES Final [id number] [address] [place] [address] * POC GLUCOSE (01/13/2025 11:22 AM CDT) GLUCOSE POC 81 74 - 99 mg/dL 01/13/2025 11:22 AM T [facility] SPECIMEN SOURCE, GLUCOSE POC Capillary 01/13/2025 11:22 AM CDT [facility] [employer] [facility] Blood, whole 01/13/2025 11:2 2 AM CDT 01/13/2025 11:51 AM CDT Shirley Paz MD POINT OF CARE TESTIN G Final Result [facility] [employer] [facility] CLIA # [id number] [address] [facility] [place] [place] [address] * XR ABDOMEN FOR FEEDING TUBE 1 VW (01/13/2025 10:31 AM CDT) Anatomical Region Laterality Modality Abdomen Computed Radiogr aphy 01/13/2025 10:3 1 AM CDT Impressions 01/13/2025 10:43 AM CDT IMPRESSION: Enteric tube as above. Narrative 01/13/2025 10:43 AM CDT Exam: XR ABDOMEN FOR FEEDING TUBE 1 VW Date/Time of Exam: 01/13/2025 10:31 AM Reason For Exam: Check Tube Placement. Diagnosis: See Reason for Exam. Comparison: 01/12/2025. Findings: An enteric tube is present terminating in the distribution of the mid stomach. The bowel gas pattern is nonspecific. Procedure Note Miko Wilkinson, DO - 01/13/2025 Exam: XR ABDOMEN FOR FEEDING TUBE 1 VW Date/Time of Exam: 01/13/2025 10:31 AM Reason For Exam: Check Tube Placement. Diagnosis: See Reason for Exam. Comparison: 01/12/2025. Findings: An enteric tube is present terminating in the distribution of the mid stomach. The bowel gas pattern is nonspecific. IMPRESSION: Enteric tube as above. Shirley Paz MD DIAGNOSTIC IMAGING O RDERABLES Final Result * POC GLUCOSE (01/13/2025 7:49 AM CDT) GLUCOSE POC 97 74 - 99 mg/dL 01/13/2025 7:49 AM CDT [facility] SPECIMEN SOURCE, GLUCOSE POC Capillary 01/13/2025 7:49 AM CDT [facility] Blood, whole 01/13/2025 7:49 AM CDT 01/13/2025 11:51 AM CDT us Shirley Paz MD POINT OF CARE TESTIN G Final Result [facility] CLIA # [id number] [address] [address] [place] [address] * XR ABDOMEN FOR FEEDING TUBE 1 VW (01/12/2025 9:57 PM CDT) Anatomical Region Laterality Modality Abdomen Computed Radiogr aphy 01/12/2025 9:57 PM CDT Impressions 01/12/2025 10:03 PM CDT IMPRESSION: See below. EXAMINATION: XR ABDOMEN FOR FEEDING TUBE 1 VW ASSOCIATED DIAGNOSIS: Other - Please see comments See Reason for Exam ORDERING PROVIDER: GARDENIA BERRY COMPARISON: January 12, 2025 FINDINGS/IMPRESSION: Enteric tube tip overlying the region of the gastric body. Narrative Procedure Note Cristian Anguiano MD - 01/12/2025 IMPRESSION: See below. EXAMINATION: XR ABDOMEN FOR FEEDING TUBE 1 VW ASSOCIATED DIAGNOSIS: Other - Please see comments See Reason for Exam ORDERING PROVIDER: GARDENIA BERRY COMPARISON: January 12, 2025 FINDINGS/IMPRESSION: Enteric tube tip overlying the region of the gastric body. us Gardenia Berry MD DIAGNOSTIC IMAGING ORDERABLE S Final Result * XR ABDOMEN FOR FEEDING TUBE 1 VW (01/12/2025 6:35 PM CDT) Anatomical Region Laterality Modality Abdomen Computed Radiogr aphy 01/12/2025 6:35 PM CDT Impressions 01/12/2025 6:39 PM CDT IMPRESSION: See below. Exam: XR ABDOMEN FOR FEEDING TUBE 1 VW Date/Time of Exam: 01/12/2025 6:35 PM Reason For Exam: Check Tube Placement. Diagnosis: See Reason for Exam. Findings: Enteric tube terminates in the gastric body. Narrative Procedure Note Rigo Reece MD - 01/12/2025 IMPRESSION: See below. Exam: XR ABDOMEN FOR FEEDING TUBE 1 VW Date/Time of Exam: 01/12/2025 6:35 PM Reason For Exam: Check Tube Placement. Diagnosis: See Reason for Exam. Findings: Enteric tube terminates in the gastric body. Gardenia Berry MD DIAGNOSTIC IMAGING ORDERABLE S Final Result * (ABNORMAL) TROPONIN 6 HR, 5TH GEN (01/12/2025 6:26 PM CDT) TROPONIN T, 6 HR 5TH GEN 32(H) <11 ng/L 01/12/2025 7:[address] [facility] [employer] [facility] DELTA 6HR TROPONIN T 5 See Interp. 01/12/2025 7:18 PM CDT [facility] Blood Venipuncture / Unknown 01/12/2025 6:26 PM CDT 01/12/2025 6:46 PM CDT Narrative [facility] - 01/12/2025 7:18 PM CDT Troponin elevated. Delta indeterminate. Delay in collection of timed specimen beyond recommended collection interval. Results must be interpreted in clinical context. Gardenia Berry MD CHEMISTRY ORDERABLES Final R esult [facility] CLIA # [id number] [address] [place] [address] * XR ABDOMEN FOR FEEDING TUBE 1 VW (01/12/2025 4:40 PM CDT) Anatomical Region Laterality Modality Abdomen Computed Radiogr aphy 01/12/2025 4:40 PM CDT Impressions 01/12/2025 4:49 PM CDT IMPRESSION: Please see below. Exam: XR ABDOMEN FOR FEEDING TUBE 1 VW Date/Time of Exam: 01/12/2025 4:40 PM Reason For Exam: Check Tube Placement. Diagnosis: See Reason for Exam. Comparison: None. Findings: A feeding tube is present with its tip terminating in the body of the stomach. A nonspecific bowel gas pattern is present. Impression: 1. As above. Narrative Procedure Note Alivia Johnson MD - 01/12/2025 IMPRESSION: Please see below. Exam: XR ABDOMEN FOR FEEDING TUBE 1 VW Date/Time of Exam: 01/12/2025 4:40 PM Reason For Exam: Check Tube Placement. Diagnosis: See Reason for Exam. Comparison: None. Findings: A feeding tube is present with its tip terminating in the body of the stomach. A nonspecific bowel gas pattern is present. Impression: 1. As above. Gardenia Berry MD DIAGNOSTIC IMAGING ORDERABLE S Final Result * MAGNESIUM LEVEL (01/12/2025 3:25 PM CDT) MAGNESIUM 1.7 1.6 - 2.4 mg/dL 01/12/2025 5:[address] [facility] [employer] [facility] Blood Venipuncture / Unknown 01/12/2025 3:25 PM CDT 01/12/2025 4:10 PM CDT Gardenia Berry MD CHEMISTRY ORDERABLES Final R esult [facility] CLIA # [id number] [address] [place] [address] [place] [address] * (ABNORMAL) TROPONIN 2 HR, 5TH GEN (01/12/2025 3:25 PM CDT) TROPONIN T, 2 HR 5TH GEN 31(H) <=10 ng/L 01/12/2025 5:[address] [facility] [employer] [facility] DELTA 2HR TROPONIN T 4 See Interp. 01/12/2025 5:13 PM CDT [facility] Blood Venipuncture / Unknown 01/12/2025 3:25 PM CDT 01/12/2025 4:10 PM CDT Narrative [facility] - 01/12/2025 5:13 PM CDT Troponin elevated. Delta indeterminate. Delay in collection of timed specimen beyond recommended collection interval. Results must be interpreted in clinical context. Gardenia Berry MD CHEMISTRY ORDERABLES Final R esult [facility] CLIA # [id number] [address] [place] [address] * (ABNORMAL) COMPREHENSIVE METABOLIC PANEL (01/12/2025 3:25 PM CDT) SODIUM 140 136 - 145 mmol/L 01/12/2025 5:13 PM CDT [facility] POTASSIUM 3.8 3.5 - 5.1 mmol/L 01/12/2025 5:13 PM T [facility] CHLORIDE 108(H) 98 - 107 mmol/L 01/12/2025 5:13 PM CDT [facility] CO2 17(L) 22 - 29 mmol/L 01/12/2025 5:13 PM [facility] CALCIUM 8.6(L) 8.8 - 10.2 mg/dL 01/12/2025 5:13 PM CDT [facility] BUN 4(L) 8 - 23 mg/dL 01/12/2025 5:13 PM T [facility] CREATININE 0.48(L) 0.51 - 0.95 mg/dL 01/12/2025 5:13 PM T [facility] Comment:The GFR result is no t clinically significant on patients <18 or >70 years of age. GLUCOSE 91 74 - 99 mg/dL 01/12/2025 5:13 PM T [facility] TOTAL PROTEIN 5.8(L) 6.4 - 8.3 g/dL 01/12/2025 5:13 PM T [facility] ALBUMIN 3.9 3.5 - 5.2 g/dL 01/12/2025 5:13 PM CDT [facility] BILIRUBIN TOTAL 0.8 0.0 - 1.0 mg/dL 01/12/2025 5:13 PM CDT [facility] ALKALINE PHOSPHATASE 56 35 - 104 U/L 01/12/2025 5:13 PM CDT [facility] AST 26 10 - 35 U/L 01/12/2025 5:13 PM CDT [facility] Comment:Hemolysis present. R esult may be falsely elevated. ALT 10 <=35 U/L 01/12/2025 5:13 PM CDT [facility] GFR >60 mL/min/1. 73 sq meter 01/12/2025 5:13 PM CDT [facility] Comment:eGFR calculated with 2020 CKD-EPI equation. Vegetarian diet, extremely high or low muscle mass, and may affect results. Cystatin C with Glomerular Filtration Rate is a suitable alternative for these patients. ANION GAP 15 9 - 20 mmol/L 01/12/2025 5:13 PM CDT [facility] Blood Venipuncture / Unknown 01/12/2025 3:25 PM CDT 01/12/2025 4:10 PM CDT us Gardenia Berry MD CHEMISTRY ORDERABLES Final R esult [facility] CLIA # [id number] [address] [place] [address] * CT HEAD WO CONTRAST (01/12/2025 2:13 PM CDT) Anatomical Region Laterality Modality Head Computed Tomogra phy 01/12/2025 2:13 PM CDT Impressions 01/12/2025 2:21 PM CDT IMPRESSION: No acute intracranial abnormality. Mild sequela of small vessel ischemic disease. Narrative 01/12/2025 2:21 PM CDT Exam: CT HEAD WO CONTRAST Date/Time of Exam: 01/12/2025 2:13 PM Reason For Exam: confusion. Diagnosis: See Reason for Exam. Technique: CT of the head was performed without the administration of intravenous contrast. Findings: No acute infarction, hemorrhage or extra-axial collection. Mild sequela of small vessel ischemic disease and diffuse parenchymal volume loss. No hydrocephalus. The basal cisterns are patent. No acute osseous abnormality. The paranasal sinuses and mastoid air cells are clear. The orbits are intact. Procedure Note Mani Garcia, DO - 01/12/2025 Exam: CT HEAD WO CONTRAST Date/Time of Exam: 01/12/2025 2:13 PM Reason For Exam: confusion. Diagnosis: See Reason for Exam. Technique: CT of the head was performed without the administration of intravenous contrast. Findings: No acute infarction, hemorrhage or extra-axial collection. Mild sequela of small vessel ischemic disease and diffuse parenchymal volume loss. No hydrocephalus. The basal cisterns are patent. No acute osseous abnormality. The paranasal sinuses and mastoid air cells are clear. The orbits are intact. IMPRESSION: No acute intracranial abnormality. Mild sequela of small vessel ischemic disease. Gardenia Berry MD CT ORDERABLES Final Result * EXTRA TUBE (URINE BOB) (01/12/2025 2:06 PM CDT) Urine URINE SPECIMEN OBTAINED BY CLEAN CATCH PROCEDURE / Unknown Collection / Unknown 01/12/2025 2:06 PM CDT 01/12/2025 2:21 PM CDT Gardenia Berry MD URINE ORDERABLES Final Resul t [facility] CLIA # [id number] [address] [place] [address] * C. DIFFICILE DETECTION (01/12/2025 2:06 PM CDT) TOXIGENIC C DIFFICILE NOT DETECTED Not Detected 01/12/2025 4:19 PM CDT [facility] Stool STOOL SPECIMEN / Unknown Collection / Unknown 01/12/2025 2:06 PM CDT 01/12/2025 2:21 PM CDT Narrative [facility] - 01/12/2025 4:19 PM CDT This assay is used to detect Toxigenic C. difficile target(B gene) DNA sequences in unformed stool specimens. If toxigenic C. difficile is not detected, but clinical suspicion is high please consult ID for consultation and potential repeat testing. This test should not be used as a test of cure. Gardenia Berry MD MICROBIOLOGY - GENERAL ORDER KARON Final Result [facility] CLIA # [id number] [address] [place] [address] * (ABNORMAL) URINALYSIS WITH REFLEX MICROSCOPIC (01/12/2025 2:06 PM CDT) COLOR UA Yellow Pale to Dark Yellow 01/12/2025 2:36 PM CDT [facility] CLARITY UA Cloudy(A) Clear 01/12/2025 2:36 PM T [facility] SPECIFIC GRAVITY UA 1.019 1.003 - 1.035 01/12/2025 2:36 PM [facility] PH UA 5.5 5.0 - 8.0 01/12/2025 2:36 PM [facility] LEUKOCYTE ESTERASE UA 3+(A) Negative 01/12/2025 2:36 PM T [facility] NITRITE UA Negative Negative 01/12/2025 2:36 PM T [facility] PROTEIN UA 1+(A) Negative 01/12/2025 2:36 PM CDT [facility] GLUCOSE UA Negative Negative 01/12/2025 2:36 PM T [facility] KETONES UA Trace(A) Negative 01/12/2025 2:36 PM T [facility] UROBILINOGEN UA <2.0 <2.0 mg/dL 2:36 PM CDT [facility] BILIRUBIN UA Negative Negative 01/12/2025 2:36 PM CDT [facility] BLOOD UA 1+(A) Negative 01/12/2025 2:36 PM CDT [facility] WBC UA 51-100(A) 0 - 2 /hpf 01/12/2025 2:36 PM CDT [facility] RBC UA 0-2 0 - 2 /hpf 01/12/2025 2:36 PM CDT [facility] BACTERIA UA 2+(A) Negative /hpf 01/12/2025 2:36 PM CDT [facility] EPITHELIAL CELLS, URINE 0-5 0 - 5 /hpf 01/12/2025 2:36 PM CDT [facility] YEAST, BUDDING Present(A) Absent 01/12/2025 2:36 PM CDT [facility] Urine URINE SPECIMEN OBTAINED BY CLEAN CATCH PROCEDURE / Unknown Collection / Unknown 01/12/2025 2:06 PM CDT 01/12/2025 2:21 PM CDT Gardenia Berry MD URINE ORDERABLES Final Resul t Performing Organization Address City/[facility]/ZIP Co de Phone Number [facility] CLIA # [id number] [address] [place] [id number] * (ABNORMAL) TSH (01/12/2025 1:30 PM CDT) TSH 4.51(H) 0.27 - 4.20 uIU/mL 01/12/2025 2:17 PM CDT [facility] Blood Venipuncture / Unknown 01/12/2025 1:30 PM CDT 01/12/2025 1:37 PM CDT Gardenia Berry MD CHEMISTRY ORDERABLES Final R esult [facility] CLIA # [id number] [address] * (ABNORMAL) TROPONIN BASELINE, 5TH GEN (01/12/2025 1:30 PM CDT) [facility] TROPONIN T, BASELINE 5TH GEN 27(H) <=10 ng/L 01/12/2025 2:17 PM CDT [facility] Comment:Hemolysis can falsel y decrease Troponin quantitation. Blood Venipuncture / Unknown 01/12/2025 1:30 PM CDT 01/12/2025 1:37 PM CDT Narrative [facility] - 01/12/2025 2:17 PM CDT Troponin elevated. us Gardenia Berry MD CHEMISTRY ORDERABLES Final R esult [facility] CLIA # [id number] [facility] [address] * (ABNORMAL) CBC WITHOUT DIFFERENTIAL (01/12/2025 1:30 PM CDT) [facility] WBC 4.7(L) 4.8 - 10.8 K/uL 01/12/2025 1:51 PM CDT [facility] RBC 3.95(L) 4.20 - 5.40 M/uL 01/12/2025 1:51 PM CDT [facility] HEMOGLOBIN 10.8(L) 12.0 - 16.0 g/dL 01/12/2025 1:51 PM CDT [facility] HEMATOCRIT 30.9(L) 36.0 - 46.0 % 01/12/2025 1:51 PM CDT [facility] MCV 78.2(L) 84.0 - 103.0 fL 01/12/2025 1:51 PM CDT [facility] MCH 27.3 27.0 - 34.0 pg 01/12/2025 1:51 PM CDT [facility] MCHC 35.0 30.0 - 35.0 g/dL 01/12/2025 1:51 PM CDT [facility] PLATELETS 273 140 - 440 K/uL 01/12/2025 1:51 PM CDT [facility] MPV 9.5 8.9 - 12.8 fL 01/12/2025 1:51 PM CDT [facility] RDW 20.3(H) 11.0 - 14.5 % 01/12/2025 1:51 PM CDT [facility] RDW-STDEV 54.4(H) 37.0 - 54.0 fL 01/12/2025 1:51 PM CDT [facility] Blood Venipuncture / Unknown 01/12/2025 1:30 PM CDT 01/12/2025 1:35 PM CDT Gardenia Berry MD HEMATOLOGY ORDERABLES Final Result Performing Organization Address City/State/[facility] Co de Phone Number [facility] CLIA # [id number] [address] [place] [address] * EKG 12-LEAD (01/12/2025 12:02 PM CDT) 01/12/2025 12:0 2 PM CDT Narrative INTERFACE SYSTEM - 01/12/2025 3:47 PM CDT [address] [address] Test Date: 2025-01-12 Pat Name: TIFFANY SEXTON Department: 12 Room: [facility] 01 Gender: Female 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: [id number] : 1950 Requested By: Order Number: [id number] Willard MD: Martin Vitale Measurements Intervals [place] Rate: 86 P: 61 ID: 150 QRS: -26 QRSD: 78 T: 44 QT: 414 QTc: 495 Interpretive Statements Normal sinus rhythm Low voltage QRS T wave abnormality, consider anterior ischemia Abnormal ECG Electronically Signed On 01-12-2025 15:47:26 CDT by Martin Vitale Procedure Note Martin Vitale MD - 01/12/2025 [facility] [address] [place] [address] Test Date: 2025-01-12 Pat Name: TIFFANY SEXTON Department: 12 Room: [address] [place] [address] Gender: Female 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: [id number] : 1950 Requested By: Order Number: [id number] Reading MD: Martin Vitale Measurements Intervals [place] Rate: 86 P: 61 ID: 150 QRS: -26 QRSD: 78 T: 44 QT: 414 QTc: 495 Interpretive Statements Normal sinus rhythm Low voltage QRS T wave abnormality, consider anterior ischemia Abnormal ECG Electronically Signed On 01-12-2025 15:47:26 CDT by Martin Vitale Gardenia Berry MD ECG ORDERABLES Final Result Performing Organization Address City/State/[facility] Co de Phone Number INTERFACE SYSTEM Refer to clinic/hospital department documented in this encounter Visit Diagnoses Diagnosis Acute C. difficile colitis- Primary Intestinal infection due to clostridium difficile Acute C. difficile colitis Intestinal infection due to clostridium difficile Colostomy status ([facility]) Colostomy status Confusion Unspecified psychosis A-fib Atrial fibrillation Protein-calorie malnutrition, moderate Malnutrition of moderate degree Elevated troponin Other abnormal blood chemistry Chest discomfort Other chest pain UTI (urinary tract infection) Urinary tract infection, site not specified Fever Fever, unspecified Vitamin D deficiency Unspecified vitamin D deficiency Anorexia Generalized abdominal pain Abdominal pain, generalized documented in this encounter Administered Medications Inactive Administered Medications - up to 3 most recent administrations Medication Order MAR Action Action Date Dose Rate Site acetaminophen (TYLENOL) 325 mg/10.15 mL oral solution 650 mg 650 mg, NG Tube, ONE TIME ONLY, 1 dose, On 01/22/25 at 0045, Routine Given 01/22/2025 2:34 AM CDT 650 mg acetaminophen (TYLENOL) 325 mg/10.15 mL oral solution 650 mg 650 mg, NG Tube, EVERY 6 HOURS PRN, Starting on 01/22/25 at 0810, Until Thu01/31/25 at 2123, Pain, Routine Given 01/27/2025 9:38 PM CDT 650 mg Given 01/25/2025 7:23 PM CDT 650 mg Given 01/24/2025 8:46 PM CDT 650 mg acetaminophen (TYLENOL) rectal suppository 650 mg 650 mg, Rectal, EVERY 6 HOURS PRN, Starting on 01/21/25 at 1758, Until 01/31/25 at 2123, Pain, Mild / Temperature, Temp > 100.3, Routine acetaminophen (TYLENOL) tablet 650 mg 650 mg, NG Tube, EVERY 6 HOURS PRN, Starting on Thi 01/12/25 at 1740, Until 01/23/25 at 0815, Other (See Comment), See admin instructions, Routine, On hold since 01/21/2025 at 1758 until manually unheld Given 01/21/2025 5:51 PM CDT 650 mg Given 01/18/2025 12:20 AM CDT 650 mg Given 01/13/2025 11:21 AM CDT 650 mg apixaban (ELIQUIS) tablet 5 mg 5 mg, NG Tube, TWO TIMES DAILY, First dose (after last modification) on Thu01/13/25 at 0900, Until Discontinued, Routine, Previous Med: apixaban (ELIQUIS) 5 mg tablet - Orig Sig - Take 5 mg by mouth 2 times daily. , Indication: Non-valvular A Fib Given 01/31/2025 8:44 AM CDT 5 mg Given 01/30/2025 8:13 PM CDT 5 mg Given 01/30/2025 8:54 AM CDT 5 mg artificial lubricant (GENTEAL PM) 94-3 % opthalmic ointment 0.25 Inch Both Eyes, EVERY 12 HOURS (BlD), First dose on Thi 01/12/25 at 2100, Until Discontinued, Routine, Previous Med: artificial lubricant (GENTEAL PM) 94-3 % ointment - Orig Sig - Administer 0.25 Inches in both eyes every 12 hours. Given 01/31/2025 8:44 AM CDT 0.25 Inc hes Given 01/30/2025 8:14 PM CDT 0.25 Inches Given 01/30/2025 8:54 AM CDT 0.25 Inches atenoloL (TENORMIN) tablet 12.5 mg 12.5 mg, Oral, DAILY, First dose on Thu01/13/25 at 2000, Until Discontinued, Routine Given 01/31/2025 8:41 AM CDT 12.5 mg Given 01/30/2025 8:54 AM CDT 12.5 mg Given 01/29/2025 11:13 AM CDT 12.5 mg barium sulfate (VARIBAR NECTAR) oral suspension 120 mL 120 mL, Oral, PRE-PROCEDURE ONCE, 1 dose, Starting on Thu01/25/25 at 1051, Until Thu01/25/25 at 1052, Routine Given 01/25/2025 10:52 AM CDT 120 mL barium sulfate (VARIBAR PUDDING) oral paste 230 mL 230 mL, Oral, PRE-PROCEDURE ONCE, 1 dose, Starting on Thu01/25/25 at 1051, Until Thu01/25/25 at 1052, Routine Given 01/25/2025 10:52 AM CDT 230 mL barium sulfate (VARIBAR THIN LIQUID) 40% w/v from 81% w/w oral powder 74 Gram 74 Gram, Oral, PRE-PROCEDURE ONCE, 1 dose, Starting on Thu01/25/25 at 1051, Until Thu01/25/25 at 1052, Routine Given 01/25/2025 10:52 AM CDT 74 Grams ceFAZolin (ANCEF,KEFZOL) 2,000 mg in sodium chloride 0.9% 50 mL IVPB (MBP) 2,000 mg, IV, ONE TIME ONLY, 1 dose, On Thu01/24/25 at 1045, Routine, Antibiotic Indication: Surgical prophylaxis New Bag 01/24/2025 10:57 AM CDT 2,000 mg 118 mL/hr cefTRIAXone (ROCEPHIN) 2,000 mg in sodium chloride 0.9% 50 mL IVPB (MBP) 2,000 mg, IV, EVERY 24 HOURS (DAILY), First dose on Thi 01/12/25 at 1500, Until Discontinued, Routine, Antibiotic Indication: Urinary Tract Infection(UTI) / Infection New Bag 01/12/2025 4:08 PM CDT 2,000 mg 118 mL/hr cefTRIAXone (ROCEPHIN) 2,000 mg in sodium chloride 0.9% 50 mL IVPB (MBP) 2,000 mg, IV, EVERY 24 HOURS (DAILY), 5 doses, First dose on 01/21/25 at 1815, Last dose on Thu01/25/25 at 1800, Routine, Antibiotic Indication: Suspected Sepsis, Unknown Source Restarted 01/25/2025 5:23 PM CDT 118 mL/hr New Bag 01/25/2025 5:19 PM CDT 2,000 mg 118 mL/hr New Bag 01/24/2025 5:25 PM CDT 2,000 mg 118 mL/hr cholecalciferol (Vitamin D3) 125 mcg (5,000 unit) cap Capsule 5,000 Units 5,000 Units, G Tube, DAILY, First dose on Thu01/25/25 at 0900, Until Discontinued, Routine Given 01/30/2025 8:54 AM CDT 5,000 Units Given 01/29/2025 11:13 AM CDT 5,000 Units Given 01/28/2025 8:10 AM CDT 5,000 Units dextrose 10% bolus solution 125 mL 125 mL, IV, SEE ADMIN INSTRUCTIONS, Starting on Thu01/23/25 at 0030, Until Thu01/31/25 at 2123, at 500 mL/hr, Administer over 15 Minutes, Routine dextrose 5 % infusion IV, at 40 mL/hr, SEE ADMIN INSTRUCTIONS, Starting on Thu01/23/25 at 0030, Until Thu01/24/25 at 0029, Routine New Bag 01/23/2025 11:37 PM CDT 4 0 mL/hr New Bag 01/23/2025 12:39 AM CDT 40 mL/hr dextrose 5% - sodium chloride 0.45% infusion IV, at 100 mL/hr, ONE TIME ONLY, 1 dose, On Thu01/24/25 at 1045, Routine New Bag 01/24/2025 10:57 AM CDT 100 mL/hr dilTIAZem in 0.9 % sodium chloride (CARDIZEM) 125 mg/125 mL infusion 0-15 mg/hr (0-15 mL/hr), IV, TITRATE, Starting on Thu01/13/25 at 1830, Until Thu01/18/25 at 1111, Should this infusion be titrated? Yes, Initial infusion dose? 5 mg/hr, Titration Dose Increment? 2.5 mg/hr, Titration Interval? 30 minutes, Heart Rate Goal? Equal to or Less than 120 New Bag 01/14/2025 2:10 AM CDT 2.5 mg/hr 2.5 mL/hr New Bag 01/14/2025 1:14 AM CDT 5 mg/hr 5 mL/hr Rate Change 01/13/2025 10:35 PM CDT 7.5 mg/hr 7.5 mL/hr fentaNYL (PF) (SUBLIMAZE) 50 mcg/mL injection 200 mcg 200 mcg, IV, INTRA-PROCEDURE ONCE, 1 dose, Starting on Thu01/24/25 at 1126, Until Thu01/24/25 at 1125, Routine Given 01/24/2025 11:25 AM CDT 200 mcg fidaxomicin (DIFICID) tablet 200 mg 200 mg, Oral, TWO TIMES DAILY, First dose on Thu01/12/25 at 1130, Until Discontinued, Routine, Antibiotic Indication: Intra-abdominal infection / Fecal Contamination Given 01/12/2025 1:35 PM CDT 200 mg fidaxomicin (DIFICID) tablet 200 mg 200 mg, NG Tube, TWO TIMES DAILY, First dose (after last modification) on Thu01/12/25 at 2100, Until Discontinued, Routine, Antibiotic Indication: Intra-abdominal infection / Fecal Contamination Given 01/31/2025 8:43 AM CDT 200 mg Given 01/30/2025 8:14 PM CDT 200 mg Given 01/30/2025 8:54 AM CDT 200 mg fluconazole (DIFLUCAN) tablet 150 mg 150 mg, Oral, ONE TIME ONLY, 1 dose, On Thu01/18/25 at 1230, Routine, Antibiotic Indication: Urinary Tract Infection(UTI) / Infection Given 01/18/2025 3:23 PM CDT 150 mg gentamicin (GARAMYCIN) 400 mg in sodium chloride 0.9 % 100 mL EXTENDED INTERVAL IVPB 400 mg, IV, ONE TIME ONLY, 1 dose, On Thu01/12/25 at 2000, Routine, Antibiotic Indication: Urinary Tract Infection(UTI) / Infection New Bag 01/12/2025 9:53 PM CDT 400 mg 125 mL/hr HYDROcodone-acetaminophen (NORCO) 5-325 mg per tablet 1 Tablet 1 Tablet, Oral, EVERY 4 HOURS PRN, Starting on Thu01/25/25 at 0803, Until Thu01/31/25 at 2123, Pain (See admin instructions), Routine Given 01/28/2025 4:45 AM CDT 1 Tablet Given 01/27/2025 3:23 AM CDT 1 Tablet Given 01/26/2025 5:28 PM CDT 1 Tablet HYDROmorphone (PF) (DILAUDID) injection 0.5 mg 0.5 mg, IV, EVERY 3 HOURS PRN, 2 doses, Starting on Thu01/13/25 at 0050, Until Thu01/17/25 at 0337, Pain (See admin instructions), Routine Given 01/17/2025 3:37 AM CDT 0.5 mg Given 01/13/2025 4:32 AM CDT 0.5 mg iopamidoL (ISOVUE-300) 61% injection (drawn from multi-use bulk pack) 75 mL 75 mL, IV, INTRA-PROCEDURE ONCE, 1 dose, Starting on Thu01/27/25 at 1908, Until Thu01/27/25 at 1909, Routine Contrast Given 01/27/2025 7:09 PM CDT 75 mL iopamidoL (ISOVUE-300) 61% injection (single-use vial) 30 mL 30 mL, See Admin Instructions, INTRA-PROCEDURE ONCE, 1 dose, Starting on Thu01/24/25 at 1040, Until Thu01/24/25 at 1130, Routine Contrast Given 01/24/2025 11:30 AM CDT 10 mL Abdomen, Left Upper Quadrant lidocaine PF 1% (XYLOCAINE MPF) injection 20 mL 20 mL, Infiltration, ONE TIME ONLY, 1 dose, On Thu01/24/25 at 1130, Routine Admin by Another Clinician (Comment) 01/24/2025 11:24 AM CDT 20 mL magnesium SULFATE in water 2 gram/50 mL (4 %) IVPB 2 Gram 2 Gram, IV, ONE TIME ONLY, 1 dose, On 01/14/25 at 0245, Routine New Bag 01/14/2025 3:12 AM CDT 2 Grams 25 mL/hr magnesium SULFATE in water 2 gram/50 mL (4 %) IVPB 2 Gram 2 Gram, IV, ONE TIME ONLY, 1 dose, On 01/21/25 at 0815, Routine New Bag 01/21/2025 10:37 AM CDT 2 Grams 25 mL/hr magnesium SULFATE in water 4 gram/100 mL IVPB 4 Gram 4 Gram, IV, ONE TIME ONLY, 1 dose, On 01/14/25 at 1015, Routine New Bag 01/14/2025 10:10 AM CDT 4 Grams 25 mL/hr metoprolol (LOPRESSOR) 5 mg/5 mL injection 5 mg 5 mg, IV, ONE TIME ONLY, 1 dose, On Thu01/13/25 at 1700, Routine Given 01/13/2025 4:55 PM CDT 5 mg metoprolol (LOPRESSOR) 5 mg/5 mL injection 5 mg 5 mg, IV, ONE TIME ONLY, 1 dose, On Thu01/19/25 at 0445, Routine Given 01/19/2025 4:48 AM CDT 5 mg metroNIDAZOLE (FLAGYL) IVPB 500 mg 500 mg, IV, EVERY 8 HOURS, First dose on Thu01/12/25 at 1300, Until Discontinued, Routine, Antibiotic Indication: Intra-abdominal infection / Fecal Contamination New Bag 01/17/2025 5:20 AM CDT 500 mg 100 mL/hr New Bag 01/16/2025 8:16 PM CDT 500 mg 100 mL/hr New Bag 01/16/2025 1:39 PM CDT 500 mg 100 mL/hr midazolam (PF) (VERSED) injection 4 mg 4 mg, IV, ONE TIME ONLY, 1 dose, On Thu01/24/25 at 1130, Routine Given 01/24/2025 11:25 AM CDT 4 mg mirtazapine (REMERON) tablet 7.5 mg 7.5 mg, G Tube, DAILY AT BEDTIME, First dose on 01/30/25 at 2100, Until Discontinued, Routine Given 01/30/2025 8:13 PM CDT 7.5 mg multivitamin with folic acid 400 mcg tablet 1 Tablet 1 Tablet, Oral, DAILY, First dose on 01/29/25 at 1430, Until Discontinued, Routine Given 01/31/2025 8:41 AM CDT 1 Tablet Given 01/30/2025 8:54 AM CDT 1 Tablet Given 01/29/2025 5:14 PM CDT 1 Tablet OLANZapine (ZyPREXA) 5 mg in sterile water 1 mL injection 5 mg, IM, ONE TIME ONLY, 1 dose, On Thi 01/12/25 at 2200, Stat Given 01/12/2025 9:53 PM CDT 5 mg Arm, Left Upper ondansetron (ZOFRAN) 4 mg/2 mL injection 4 mg 4 mg, IV, EVERY 6 HOURS PRN, Starting on Thi 01/12/25 at 1516, Until Thu01/31/25 at 2123, Nausea/Emesis, Routine Given 01/29/2025 11:57 AM CDT 4 mg Given 01/26/2025 10:00 AM CDT 4 mg Given 01/21/2025 5:12 PM CDT 4 mg perflutren lipid microspheres (DEFINITY) 1.3 mL in sodium chloride 0.9% 10 mL injection 0-10 mL, IV, INTRA-PROCEDURE ONCE, 1 dose, Starting on Thu01/16/25 at 1107, Until Thu01/16/25 at 0958, Routine Contrast Given 01/16/2025 9:58 AM CDT 2 mL potassium BICARBONATE-citric acid (EFFER-K) tablet 20 mEq 20 mEq, Oral, THREE TIMES DAILY, 3 doses, First dose on Thu01/20/25 at 0900, Last dose on Thu01/20/25 at 1800, Routine Given 01/20/2025 9:04 PM CDT 20 mEq Given 01/20/2025 2:07 PM CDT 20 mEq Given 01/20/2025 9:13 AM CDT 20 mEq potassium BICARBONATE-citric acid (EFFER-K) tablet 20 mEq 20 mEq, Oral, THREE TIMES DAILY, 3 doses, First dose (after last reorder) on 01/21/25 at 0900, Last dose on 01/21/25 at 1800, Routine Given 01/21/2025 5:12 PM CDT 20 mEq Given 01/21/2025 12:46 PM CDT 20 mEq Given 01/21/2025 10:27 AM CDT 20 mEq potassium BICARBONATE-citric acid (EFFER-K) tablet 20 mEq 20 mEq, NG Tube, THREE TIMES DAILY, 3 doses, First dose (after last reorder) on 01/22/25 at 0900, Last dose on Thu01/22/25 at 1800, Routine Given 01/22/2025 5:34 PM CDT 20 mEq Given 01/22/2025 1:09 PM CDT 20 mEq Given 01/22/2025 9:21 AM CDT 20 mEq potassium BICARBONATE-citric acid (EFFER-K) tablet 40 mEq 40 mEq, Oral, ONE TIME ONLY, 1 dose, On Thu01/13/25 at 1615, Routine Given 01/13/2025 4:55 PM CDT 40 mEq potassium CHLORIDE 20 mEq/100 mL IVPB 20 mEq 20 mEq, IV, ONE TIME ONLY, 1 dose, On Thu01/14/25 at 0945, Routine New Bag 01/14/2025 10:24 AM CDT 20 mEq 50 mL/hr potassium CHLORIDE 20 mEq/100 mL IVPB 20 mEq 20 mEq, IV, ONE TIME ONLY, 1 dose, On Thu01/14/25 at 1145, Routine New Bag 01/14/2025 1:58 PM CDT 20 mEq 50 mL/hr potassium CHLORIDE 20 mEq/100 mL IVPB 20 mEq 20 mEq, IV, ONE TIME ONLY, 1 dose, On Thu01/15/25 at 1200, Routine New Bag 01/15/2025 1:51 PM CDT 20 mEq 50 mL/hr potassium CHLORIDE 20 mEq/100 mL IVPB 20 mEq 20 mEq, IV, ONE TIME ONLY, 1 dose, On Copen 01/15/25 at 1400, Routine New Bag 01/15/2025 4:34 PM CDT 20 mEq 50 mL/hr potassium CHLORIDE 20 mEq/100 mL IVPB 20 mEq 20 mEq, IV, EVERY 2 HOURS, 2 doses, First dose (after last modification) on Thu01/25/25 at 0800, Last dose on Thu01/25/25 at 1000, Stat New Bag 01/25/2025 10:15 AM CDT 20 mEq 50 mL/hr New Bag 01/25/2025 8:42 AM CDT 20 mEq 50 mL/hr potassium CHLORIDE 20 mEq/100 mL IVPB 20 mEq 20 mEq, IV, ONE TIME ONLY, 1 dose, On Thi 01/26/25 at 0500, RoutineIndications:hypokalemia ,k3.2 New Bag 01/26/2025 5:30 AM CDT 20 mEq 50 mL/hr potassium CHLORIDE 20 mEq/100 mL IVPB 20 mEq 20 mEq, IV, ONE TIME ONLY, 1 dose, On Thu01/26/25 at 0700, Routine New Bag 01/26/2025 7:37 AM CDT 20 mEq 50 mL/hr potassium CHLORIDE 40 mEq in sodium chloride 0.9 % 250 mL IVPB 40 mEq, IV, ONE TIME ONLY, 1 dose, On Thu01/24/25 at 0845, Routine New Bag 01/24/2025 10:08 AM CDT 40 mEq 76.25 mL/hr potassium PHOSPHATE-sodium phosphate (R-SPWR-EHZAVIX) tablet 1 Tablet 1 Tablet (250 mg), Oral, THREE TIMES DAILY, First dose on Thu01/19/25 at 0900, Until Discontinued, Routine Given 01/21/2025 5:13 PM CDT 1 Tablet Given 01/21/2025 12:46 PM CDT 1 Tablet Given 01/21/2025 10:26 AM CDT 1 Tablet saccharomyces boulardii (FLORASTOR) capsule 250 mg 250 mg, NG Tube, TWO TIMES DAILY, First dose (after last modification) on Thu01/12/25 at 2100, Until Discontinued, Routine Given 01/31/2025 8:41 AM CDT 250 mg Given 01/30/2025 8:13 PM CDT 250 mg Given 01/30/2025 8:54 AM CDT 250 mg scopolamine (TRANSDERM-SCOP) 1 mg/72 hr transdermal patch 1 Patch 1 Patch, Transdermal, EVERY 72 HOURS, First dose on Thu01/13/25 at 1015, Until Discontinued, Routine, Previous Med: scopolamine (TRANSDERM-SCOP) 1 mg/72 hr patch - Orig Sig - Apply 1 Patch to skin as directed every third day. Applied 01/31/2025 10:16 AM CDT 1 Patch Ear, Left Applied 01/28/2025 10:51 AM CDT 1 Patch E ar, Right Applied 01/25/2025 10:16 AM CDT 1 Patch E ar, Right sodium chloride 0.9 % bolus solution 1,000 mL 1,000 mL, IV, ONE TIME ONLY, 1 dose, On Thu01/19/25 at 0445, at 2,000 mL/hr, Administer over 30 Minutes, Routine New Bag 01/19/2025 4:47 AM CDT 1,000 mL 2000 mL/hr sodium chloride 0.9 % bolus solution 500 mL 500 mL, IV, ONE TIME ONLY, 1 dose, On Thu01/19/25 at 0630, at 999 mL/hr, Administer over 30 Minutes, Routine New Bag 01/19/2025 6:19 AM CDT 500 mL 999 mL/hr sodium chloride 0.9 % infusion IV, at 50 mL/hr, CONTINUOUS, Starting on Thu01/12/25 at 1530, Until Thu01/18/25 at 1111, Routine New Bag 01/14/2025 7:47 PM CDT 50 mL/hr New Bag 01/13/2025 2:05 PM CDT 50 mL/hr New Bag 01/12/2025 4:47 PM CDT 50 mL/hr sodium chloride flush injection 10 mL 10 mL, IV, EVERY 12 HOURS (BlD), First dose on Thu01/12/25 at 2100, Until Discontinued, Routine Given 01/31/2025 8:44 AM CDT 10 mL Given 01/30/2025 8:13 PM CDT 10 mL Given 01/30/2025 8:54 AM CDT 10 mL sodium chloride flush injection 10 mL 10 mL, IV, TWO TIMES DAILY, First dose on Thi 01/12/25 at 2100, Until Discontinued, Routine Given 01/31/2025 8:44 AM CDT 10 mL Given 01/30/2025 8:54 AM CDT 10 mL Given 01/29/2025 11:14 AM CDT 10 mL sodium chloride flush injection 10 mL 10 mL, IV, EVERY 5 MINUTES PRN, 1 dose, Starting on Thu01/27/25 at 1908, Until Thu01/27/25 at 1909, saline flush for imaging scan q 5 min prn, Routine Given 01/27/2025 7:09 PM CDT 10 mL vancomycin (FIRVANQ) oral solution 125 mg 125 mg, G Tube, DAILY, 14 doses, First dose on Thu01/31/25 at 1315, Last dose on Thu02/13/25 at 0900, Routine, Antibiotic Indication: Clostridium difficile infection Given 01/31/2025 3:18 PM CDT 125 mg vancomycin in sodium chloride 0.9% (VANCOCIN) 1250 mg/262.5 mL IVPB 1,250 mg 1,250 mg, IV, EVERY 24 HOURS, 5 doses, First dose on Thu01/21/25 at 1900, Last dose on Thu01/25/25 at 2100, Routine, Antibiotic Indication: Suspected Sepsis, Unknown Source Rate Verify 01/25/2025 10:14 PM CDT 175 mL/hr New Bag 01/25/2025 9:30 PM CDT 1,250 mg 175 mL/hr New Bag 01/24/2025 10:45 PM CDT 1,250 mg 175 mL/hr documented in this encounter Active and Recently Administered Medications Times are shown in CDT. Scheduled Medication Order 01/29/2025 01/30/2025 01/31/2025 apixaban (ELIQUIS) tablet 5 mg 5 mg, NG Tube, TWO TIMES DAILY, First dose (after last modification) on Thu01/13/25 at 0900, Until Discontinued, Routine, Previous Med: apixaban (ELIQUIS) 5 mg tablet - Orig Sig - Take 5 mg by mouth 2 times daily. , Indication: Non-valvular A Fib 1114 (Given - Provider: Cathie Contreras LPN)2099 (Given - Provider: RASHMI Suarez) 0854 (Given - Provider: Narda Monge RN)2012 (Given - Provider: Anastacia Bryant RN) 0844 (Given - Provider: Narda Monge RN) artificial lubricant (GENTEAL PM) 94-3 % opthalmic ointment 0.25 Inch Both Eyes, EVERY 12 HOURS (BlD), First dose on Thi 01/12/25 at 2100, Until Discontinued, Routine, Previous Med: artificial lubricant (GENTEAL PM) 94-3 % ointment - Orig Sig - Administer 0.25 Inches in both eyes every 12 hours. 1113 (Given - Provider: Cathie Contreras LPN)2099 (Refused - Provider: RASHMI Suarez) 0854 (Given - Provider: Narda Monge RN)2013 (Given - Provider: Anastacia Braynt RN) 0844 (Given - Provider: Narda Monge, TRISHA) atenoloL (TENORMIN) tablet 12.5 mg 12.5 mg, Oral, DAILY, First dose on Thu01/13/25 at 2000, Until Discontinued, Routine 1113 (Given - Provider: Cathie Contreras LPN) 0854 (Given - Provider: Narda Monge RN) 0841 (Given - Provider: Narda Monge RN) cholecalciferol (Vitamin D3) 125 mcg (5,000 unit) cap Capsule 5,000 Units 5,000 Units, G Tube, DAILY, First dose on Thu01/25/25 at 0900, Until Discontinued, Routine 1113 (Given - Provider: Cathie Contreras LPN) 0854 (Given - Provider: Narda Monge RN) 0900 (Not Given - Provider: Narda Monge RN - Reason: Other - See Comment - Comment: medication not available) dextrose 10% bolus solution 125 mL 125 mL, IV, SEE ADMIN INSTRUCTIONS, Starting on Thu01/23/25 at 0030, Until Thu01/31/25 at 2123, at 500 mL/hr, Administer over 15 Minutes, Routine dextrose 5 % in water 250 mL flush bag 25 mL 25 mL, IV, SEE ADMIN INSTRUCTIONS, Starting on Thu01/12/25 at 1516, Until Thu01/31/25 at 212, Routine fidaxomicin (DIFICID) tablet 200 mg (CANCELED) 200 mg, NG Tube, TWO TIMES DAILY, First dose (after last modification) on Thu01/12/25 at 2100, Until Discontinued, Routine, Antibiotic Indication: Intra-abdominal infection / Fecal Contamination 1113 (Given - Provider: Cathie Contreras LPN)2100 (Given - Provider: RASHMI Suarez) 0854 (Given - Provider: Narda Monge RN)2013 (Given - Provider: Anastacia Bryant RN) 0843 (Given - Provider: Narda Monge RN) mirtazapine (REMERON) tablet 7.5 mg 7.5 mg, G Tube, DAILY AT BEDTIME, First dose on Thu01/30/25 at 2100, Until Discontinued, Routine 2012 (Given - Provider: Anastacia Bryant, TRISHA) multivitamin with folic acid 400 mcg tablet 1 Tablet 1 Tablet, Oral, DAILY, First dose on Thu01/29/25 at 1430, Until Discontinued, Routine 171 (Given - Provider: Cathie Contreras LPN) 0854 (Given - Provider: Narda Monge RN) 0841 (Given - Provider: Narda Monge, TRISHA) naloxone (NARCAN) 0.4 mg/mL injection 0.1 mg 0.1 mg, IV, SEE ADMIN INSTRUCTIONS, Starting on Thu01/12/25 at 1516, Until Thu01/31/25 at 2123, Routine saccharomyces boulardii (FLORASTOR) capsule 250 mg 250 mg, NG Tube, TWO TIMES DAILY, First dose (after last modification) on Thu01/12/25 at 2100, Until Discontinued, Routine 1113 (Given - Provider: Cathie Contreras LPN)2099 (Given - Provider: RASHMI Suarez) 0854 (Given - Provider: Narda Monge RN)2012 (Given - Provider: Anastacia Bryant RN) 0841 (Given - Provider: Narda Monge RN) scopolamine (TRANSDERM-SCOP) 1 mg/72 hr transdermal patch 1 Patch 1 Patch, Transdermal, EVERY 72 HOURS, First dose on Thu01/13/25 at 1015, Until Discontinued, Routine, Previous Med: scopolamine (TRANSDERM-SCOP) 1 mg/72 hr patch - Orig Sig - Apply 1 Patch to skin as directed every third day. 1014 (Removed - Provider: Narda Monge RN)1016 (Applied - Provider: Narda Monge RN)1845 (Due: Removed - Provider: PROVIDER, DISCHARGE PATIENT - Comment: Time automatically adjusted from order being discontinued) sodium chloride 0.9 % flush bag 25 mL 25 mL, IV, SEE ADMIN INSTRUCTIONS, Starting on Thu01/12/25 at 1516, Until Thu01/31/25 at 2122, Routine sodium chloride flush injection 10 mL 10 mL, IV, EVERY 12 HOURS (BlD), First dose on Thu01/12/25 at 2100, Until Discontinued, Routine 1114 (Given - Provider: Cathie Contreras LPN)2099 (Not Given - Provider: RASHMI Suarez - Reason: Medication already given) 0854 (Given - Provider: Narda Monge RN)2012 (Given - Provider: Anastacia Bryant, TRISHA) 0844 (Given - Provider: Narda Monge RN) sodium chloride flush injection 10 mL 10 mL, IV, SEE ADMIN INSTRUCTIONS, Starting on Thu01/12/25 at 1516, Until Thu01/31/25 at 2123, Routine sodium chloride flush injection 10 mL 10 mL, IV, TWO TIMES DAILY, First dose on Thu01/12/25 at 2100, Until Discontinued, Routine 1114 (Given - Provider: Cathie Contreras LPN)2100 (Not Given - Provider: RASHMI Suarez - Reason: Medication already given) 0854 (Given - Provider: Narda Monge RN)2099 (Canceled Entry - Provider: Anastacia Bryant RN - Comment: duplicate order) 0844 (Given - Provider: Narda Monge RN) vancomycin (FIRVANQ) oral solution 125 mg 125 mg, G Tube, DAILY, 14 doses, First dose on Thu01/31/25 at 1315, Last dose on Thu02/13/25 at 0900, Routine, Antibiotic Indication: Clostridium difficile infection 1518 (Given - Provider: Narda Monge RN) zinc OXIDE-cod liver oil (DESITIN) 40 % topical paste Topical, SEE ADMIN INSTRUCTIONS, Starting on Thu01/13/25 at 1012, Until Thu01/31/25 at 2123, Routine, Previous Med: zinc OXIDE-cod liver oil (Desitin) 40 % Paste - Orig Sig - Apply to affected area see administration instructions. PRN Medication Order 01/29/2025 01/30/2025 01/31/2025 acetaminophen (TYLENOL) 325 mg/10.15 mL oral solution 650 mg 650 mg, NG Tube, EVERY 6 HOURS PRN, Starting on 01/22/25 at 0810, Until Thu01/31/25 at 2123, Pain, Routine acetaminophen (TYLENOL) rectal suppository 650 mg 650 mg, Rectal, EVERY 6 HOURS PRN, Starting on 01/21/25 at 1758, Until Thu01/31/25 at 2123, Pain, Mild / Temperature, Temp > 100.3, Routine HYDROcodone-acetaminophen (NORCO) 5-325 mg per tablet 1 Tablet 1 Tablet, Oral, EVERY 4 HOURS PRN, Starting on Thu01/25/25 at 0803, Until Thu01/31/25 at 2123, Pain (See admin instructions), Routine ipratropium-albuteroL (DUONEB) 0.5 mg-3 mg(2.5 mg base)/3 mL inhalation solution 3 mL 3 mL, Inhalation, EVERY 6 HOURS PRN RESPIRATORY, Starting on Thi 01/12/25 at 1516, Until Thu01/31/25 at 2123, Shortness of Breath, Routine, Previous Med: ipratropium-albuteroL (DUONEB) 0.5 mg-3 mg(2.5 mg base)/3 mL Solution for Nebulization - Orig Sig - Take 3 mL by inhalation every 6 hours as needed for Shortness of Breath. ondansetron (ZOFRAN) 4 mg/2 mL injection 4 mg 4 mg, IV, EVERY 6 HOURS PRN, Starting on Thi 01/12/25 at 1516, Until Thu01/31/25 at 2123, Nausea/Emesis, Routine 1157 (Given - Provider: Cathie Contreras LPN) documented in this encounter Additional Health Concerns Infection Onset Date Last Indicated Resolved Time C Diff Comment:01/19/25: Pt no longer having symptoms of C. Diff. Resolved per c. Diff update 01/02/25. 11/17/24 This patient is within their 60 day window of a positive C diff, repeat testing is not recommended. This patient does require Enteric isolation for the duration of their admission. Patricia Hendrix RN, Infection Prevention 10/27/2024 11/17/2024 01/19/2025 9:29 AM C DT R/O COVID-19 01/31/2025 01/31/2025 01/31/2025 1:18 PM CDT documented as of this encounter Care Teams Auto Service Advisor Relationship Specialty Start Date End Date Non-Staff, Physician NO ADDRESS ON FILE PCP - General 08/30/13 documented as of this encounter
[2025-02-03 22:10] VITALS: BMI 27.4
--- OUTSIDE RECORDS SUMMARY | 2025-02-03 22:13 | XMS_ITS | Encounter Summary ---
Author Organization [employer] 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
--- OUTSIDE RECORDS SUMMARY | 2025-02-03 22:13 | XMS_ITS | Encounter Summary ---
Author Organization [facility] Address [address] [place] [address] Care Team Providers Care Golf Club Head Inspector Name Role Phone Non-Staff, Physician Primary Care Provider Unava ilable Encounter Details Date Type Department Care Team (Latest Contact Info) Description 04/17/2000 Outpatient Historical [facility]- [place] [address] [place] [address] Gloria Sal NO ADDRESS ON FILE Excessive menstruation (Primary Dx); Screening for malignant neoplasm of the rectum; Need vaccination-viral disease Social History Tobacco Use Types Packs/Day Years Used Date Smoking Tobacco: Never Assessed Comments Unknown Sex and Gender Information Value Date Recorded Sex Assigned at Not on file 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 Gender Identity Not on file Sexual Orientation Not on file documented as of this encounter Plan of Treatment Not on file documented as of this encounter Visit Diagnoses Diagnosis Excessive menstruation- Primary Excessive or frequent menstruation Screening for malignant neoplasm of the rectum Need vaccination-viral disease Need for prophylactic vaccination and inoculation against other viral diseases documented in this encounter Care Teams Golf Club Head Inspector Relationship Specialty Start Date End Date Non-Staff, Physician NO ADDRESS ON FILE PCP - General 08/30/13 documented as of this encounter
--- OUTSIDE RECORDS SUMMARY | 2025-02-03 22:13 | XMS_ITS | Encounter Summary ---
Author Organization [employer] 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
--- OUTSIDE RECORDS SUMMARY | 2025-02-03 22:13 | XMS_ITS | Encounter Summary ---
Author Organization [facility] Address [address] [place] [address] Care Team Providers Care Milk Hauler Name Role Phone Non-Staff, Physician Primary Care Provider Unava ilable Encounter Details Date Type Department Care Team (Latest Contact Info) Description 03/09/2000 Outpatient Historical [facility] Family Medicine- [place] [address] [place] [address] Gloria Sal NO ADDRESS ON FILE Unspecified internal derangement of knee (Primary Dx) Social History Tobacco Use Types Packs/Day Years Used Date Smoking Tobacco: Never Assessed Comments Unknown Sex and Gender Information Value Date Recorded Sex Assigned at Not on file 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
--- OUTSIDE RECORDS SUMMARY | 2025-02-03 22:13 | XMS_ITS | Encounter Summary ---
Author Organization [facility] Address [address] [place] [address] Care Team Providers Care Retirement Village Manager Name Role Phone Non-Staff, Physician Primary Care Provider Unava ilable Encounter Details Date Type Department Care Team (Latest Contact Info) Description 01/17/2002 Outpatient Historical [facility] Family Medicine- [place] [address] [place] [address] Wanda Castro MD NO ADDRESS ON FILE MIGRAINE NOS W/O MENTN INTRACTABLE (Primary Dx); MENOPAUSAL DISORDER NOS Social History Tobacco Use Types Packs/Day Years Used Date Smoking Tobacco: Never Assessed Comments Unknown Sex and Gender Information Value Date Recorded Sex Assigned at Not on file 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
--- OUTSIDE RECORDS SUMMARY | 2025-02-03 22:13 | XMS_ITS | Encounter Summary ---
Author Organization [facility] Address [address] [place] [address] Care Team Providers Care Pipeline Operator Name Role Phone Non-Staff, Physician Primary Care Provider Unava ilable Encounter Details Date Type Department Care Team (Latest Contact Info) Description 05/11/2000 Outpatient Historical [facility] Geraldo Kessler MD [address] [facility] [address] [place] [address] Lipoma of other specified sites (Primary Dx) Social History Tobacco Use Types Packs/Day Years Used Date Smoking Tobacco: Never Assessed Comments Unknown Sex and Gender Information Value Date Recorded Sex Assigned at Not on file Legal Sex Female 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
--- OUTSIDE RECORDS SUMMARY | 2025-02-03 22:13 | XMS_ITS | Encounter Summary ---
Author Organization [facility] Address [address] [place] [address] Care Team Providers Care Videotape Recording Engineer Name Role Phone Non-Staff, Physician Primary Care Provider Unava ilable Encounter Details Date Type Department Care Team (Late st Contact Info) Description 01/22/1998 Outpatient Historical [facility] Social History Tobacco Use Types Packs/Day Years Used Date Smoking Tobacco: Never Assessed Comments Unknown Sex and Gender Information Value Date Recorded Sex Assigned at Not on file Legal Sex Female 3:15 AM CORN SHUCKER Gender Identity Not on file Sexual Orientation Not on file documented as of this encounter Plan of Treatment Not on file documented as of this encounter Visit Diagnoses Not on filedocumented in this encounter Care Teams Videotape Recording Engineer Relationship Specialty Start Date End Date Non-Staff, Physician NO ADDRESS ON FILE PCP - General 08/30/13 documented as of this encounter
--- OUTSIDE RECORDS SUMMARY | 2025-02-03 22:13 | XMS_ITS | Encounter Summary ---
Author Organization [facility] Address [address] [place] [address] Care Team Providers Care Camp Manager Name Role Phone Non-Staff, Physician Primary Care Provider Unava ilable Encounter Details Date Type Department Care Team (Latest Contact Info) Description 03/23/2000 Outpatient Historical [facility] Family Medicine- [place] [address] [place] [address] Gloria Sal NO ADDRESS ON FILE Generalized osteoarthrosis, involving multiple sites (Primary Dx); Unspecified menopausal and postmenopausal disorder Social History Tobacco Use Types Packs/Day Years Used Date Smoking Tobacco: Never Assessed Comments Unknown Sex and Gender Information Value Date Recorded Sex Assigned at Not on file Legal Sex Female 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
--- OUTSIDE RECORDS SUMMARY | 2025-02-03 22:13 | XMS_ITS | Encounter Summary ---
Author Organization [facility] Address [address] [place] [address] Care Team Providers Care Hand Umbrella Tipper Name Role Phone Non-Staff, Physician Primary Care Provider Unava ilable Encounter Details Date Type Department Care Team (Late st Contact Info) Description 02/01/2025 Abstract [facility] [address] [place] [address] Provider, Abstract NO ADDRESS ON FILE Social [...] on file Legal Sex Female 11:03 AM AEROSPACE PROJECT ENGINEER Gender Identity Not on file Sexual Orientation Not on file documented as of this encounter Plan of Treatment Not on file documented as of this encounter Procedures Procedure Name Priority Date/Time Associated Diagnosis Comments HEMOGLOBIN A1C Routine 01/05/2025 documented in this encounter Results * HEMOGLOBIN A1C (01/05/2025) ABSTRACTED HGB A1C 5.0 % Blood 01/05/2025 us Abstract Provider CHEMISTRY ORDERABLES Final Res ult documented in this encounter Visit Diagnoses Not on filedocumented in this encounter Care Teams Hand Umbrella Tipper Relationship Specialty Start Date End Date Non-Staff, Physician NO ADDRESS ON FILE PCP - General 08/30/13 documented as of this encounter
--- OUTSIDE RECORDS SUMMARY | 2025-02-03 22:13 | XMS_ITS | Clinical Summary ---
Author Organization [employer] Address [address] Martin: Epic Prelude ADT JOSSIE JASMINE [address] Care Team Providers Care Project Planner Name Role Phone Non-Staff, Physician Primary [...] needed for Shortness of Breath. Active miconazole (JOAN,MICOTIN,R EMEDY AF) 2 % Cream Apply to affected [...] time daily as needed for Constipation. Active zinc [...] Daily Amount: 4 Tablets 20 Tablet Active atenoloL (TENORMIN) 25 mg tablet Take 0.5 Tablets (12.5 mg) by mouth daily. Active scopolamine (TRANSDERM-SCOP ) 1 mg/72 hr patch Apply 1 Patch to skin as directed every third day. Active droNABinol (Marinol) 2.5 mg capsuleIndicati ons:Protein-mario alberto orie malnutrition, moderate Take 1 Capsule (2.5 mg) by mouth 2 times daily. Active Feeding Container & Pump Set (Gerson Hitchcock EZ Pump Set) Vital AF - Recommended feeding time 2000 to 0800. Amount Ordered DIET TUBE FEEDING Elemental 1.2,; G-tube; Feeding Method: Intermittent/Cycl ic; Goal Volume in mL/hour: 60; Feeding Duration in Hours: 12; Water Flush: 250 q12hr 1 Each Active cholecalciferol , Vitamin D3, 125 mcg (5,000 unit) Capsule 1 Capsule (5,000 Units) by G Tube route daily starting on 02/01/25. 30 Capsule 3 Active multivitamin with folic acid 400 mcg Tablet tablet Take 1 Tablet by mouth daily. 30 Tablet Active saccharomyces boulardii (FLORASTOR) 250 mg Capsule 1 Capsule (250 mg) by G Tube route 2 times daily. 60 Capsule 2 Active vancomycin (FIRVANQ) 50 mg/mL oral solution Take 2.5 mL (125 mg) by G Tube route daily for 14 days. *Discard remainder after 14 days* 150 mL Active docusate sodium (COLACE) 50 mg/5 mL solution Take 10 mL (100 mg) by mouth 2 times daily as needed for Constipation. 025 2024 Discontinued metoclopramide HCl (REGLAN) 10 mg tablet Take 1 Tablet (10 mg) by mouth 4 times daily before meals and at bedtime. 025 2024 Discontinued Active Problems Problem Noted Date Diagnosed Date Anorexia 01/31/2025 Vitamin D deficiency 01/25/2025 Fever 01/22/2025 Confusion 01/12/2025 A-fib 01/12/2025 Elevated troponin 01/12/2025 Chest discomfort 01/12/2025 UTI (urinary tract infection) 01/12/2025 Nausea 11/27/2024 Severe sepsis without septic shock 11/23/2024 Esophagitis determined by endoscopy 11/22/2024 Intractable nausea and vomiting 11/20/2024 Splenic artery aneurysm per CT 10/29/2024 Acute C. difficile colitis 10/27/2024 Hypokalemia 10/27/2024 Protein-calorie malnutrition, moderate Colostomy status 10/27/2024 Generalized abdominal pain 10/26/2024 Poor nutrition 09/13/2024 On total [...] Date Type Department Care Team Description 5 Abstract [facility] [address] [place] [address] Provider, Abstract 5 Orders Only [facility] [address] [place] [address] Provider, Abstract 5 Travel 5 External Device Data STL ABSTRACTION Provider, Abstract 5 External Device Data STL ABSTRACTION Provider, Abstract 5 11:21 AM CDT - 5 6:45 PM CDT Hospital Encounter [facility] Medical Surgical [address] [place] [phone] Giovana Walters MD Broughton, John D, MD Nagotu Kambagiri, Sharada, MD McGinnis, MD Norma Renteria, Lea Vu MD C. difficile colitis Discharge Disposition: [place] Health [facility] [place] 4:35 AM CDT - 5 11:59 PM CDT Hospital Encounter [facility] [address] [facility] [address] [place] [phone] Ambulance, [facility] Discharge Disposition: [facility] 5 External Device Data STL ABSTRACTION Provider, Abstract 5 External Device Data STL ABSTRACTION Provider, Abstract 5 External Device Data STL ABSTRACTION Provider, Abstract 5 Abstract [facility] [address] [place] [address] Provider, Abstract 5 Orders Only [facility] [address] [place] [address] Provider, Abstract 5 5:30 AM CDT - 5 11:59 PM CDT Hospital Encounter [facility] [address] [place] [phone] Pradeep Luke MD Ambulance, [facility] Discharge Disposition: Intermediate Care Facility 5 External [...] STL ABSTRACTION Provider, Abstract 5 Orders Only [facility] [place] [address] [place] [address] Aniya Shell, DO Esophagitis (Primary Dx) 5 9:35 AM CDT - 5 9:55 AM CDT Surgery [facility] Operating Room [address] [place] [address] Aniya Shell, DO ESOPHAGOGASTRODUODENOSCOPY 5 9:29 AM CDT Anesthesia Event [facility] [address] [place] [address] Vel Foote MD 5 Travel 5 9:28 PM CDT - 5 8:06 PM CDT Hospital Encounter [address] [facility] [address] [place] [address] Sesar Cat, DO Berger, MD Austin Sanchez, MD Radha Gage, MD Colt Espinoza Ravi V., MD Shah, MD Marly Lee, Pradeep Meade MD Intractable nausea and vomiting Discharge Disposition: [facility] Fac(SNF) with Medicare Certification in Anticipation of Skilled Care 5 - 5 11:59 PM CDT Hospital Encounter [facility] Emergency Medical Services [place] [address] [address] Ambulance, [facility] Discharge Disposition: Short term general hospital 5 Telephone [facility] General and Trauma Surgery[address] [address] Dana Eddy PA Question 5 2:40 PM CDT Office Visit [facility] General and Trauma Surgery[address] [place] [address] Tiffany Henson NP Postoperative visit (Primary Dx); Visit for wound check 5 External Device Data STL ABSTRACTION Provider, Abstract 5 Results Follow-Up [facility] Emergency Medicine [address] [facility] [address] [place] [phone] Soraya Lagunas RN URINE CULTURE 5 11:38 PM CDT - 5 3:23 AM CDT Emergency [facility] Emergency Medicine [address] [facility] [address] [place] [address] Nicole Golden MD Postoperative abdominal pain (Primary Dx) Discharge Disposition: Home or Self Care 5 - 5 11:59 PM CDT Hospital Encounter [facility] Emergency Medical Services [place] [address] [place] [address] Ambulance, [place] Discharge Disposition: [facility] from Last 3 Months Immunizations Immunization Administration [...] on file 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 Gender Identity Not on file Sexual [...] Mass Index 24.86 01/25/2025 10:45 AM CDT Plan of Treatment Health Maintenance [...] series) 2026 Medical Devices Implanted Type Area Lamp Shades Supervisor Device Identifier Shelf Expiration Date Model / Serial / Lot Clip Ligating Horizon Lrg Ti 10.07x12.38mm [id number] - Csc - [id number] Implanted:Qty: 1 on 09/06/2024 by Moe Ro DO at [facility] Clip N/A: Abdomen TELEFLEX- WECK CLOSURE SYS [id number] 03/21/2029 [id number] / / [id number] Clip Ligating Horizon Med Ti [id number] - [facility] - [id number] Implanted:Qty: 1 on 09/06/2024 by Moe Ro DO at [facility] Clip N/A: Abdomen TELEFLEX- WECK CLOSURE SYS [id number] 02/23/2029 [id number] / / [id number] Clip Ligating Horizon Med Ti [id number] - [facility] - [id number] Implanted:Qty: 1 on 09/06/2024 by Moe Ro DO at [facility] Clip N/A: Abdomen TELEFLEX- WECK CLOSURE SYS [id number] 02/23/2029 [id number] / / [id number] Tube Feeding Fero[employer]us 16fr 0100-16lv - [id number] Implanted:Qty: 1 on 01/24/2025 by Miko Shay MD at [facility] Feeding Device Left: Abdomen [employer] fka HALYARD [id number] 08/15/2027 0100-16L V / / [id number] Stent Contour [id number] - [id number] Implanted:Qty: 1 on 09/06/2024 by Moe Ro DO at [facility] Stent Right: Abdomen [employer]- UROLOGY/LOGISTICS TEAM LEADER [id number] 04/19/2027 [id number] / / [id number] Stent Contour [id number] - [id number] Implanted:Qty: 1 on 09/06/2024 by Moe Ro DO at [facility] Stent Left: Abdomen [employer]- UROLOGY/LOGISTICS TEAM LEADER [id number] 04/19/2027 [id number] / / [id number] Procedures Procedure Name Priority Date/Time Associated Diagnosis Comments TELEMETRY REPORT 02/01/2025 2:00 AM CDT INFLUENZA A/B, RSV AND COVID -19 PCR PANEL Stat 01/31/2025 12:28 PM CDT INFLUENZA A/B, RSV AND COVID -19 PCR PANEL Stat 01/31/2025 12:28 PM CDT [...] CDT CT ABDOMEN PELVIS W CONTRAST Stat 7:09 PM CDT POC GLUCOSE Routine 01/27/2025 [...] POC GLUCOSE Routine 01/26/2025 9:05 AM CDT BASIC METABOLIC PANEL Routine 01/26/2025 3:50 AM CDT CBC WITHOUT DIFFERENTIAL Routine 025 3:50 AM CDT POC GLUCOSE Routine 01/26/2025 12:21 AM CDT POC GLUCOSE Routine 01/25/2025 9:31 PM CDT POC GLUCOSE Routine 01/25/2025 5:09 PM CDT POC GLUCOSE Routine 01/25/2025 12:21 PM CDT XR VIDEO SWALLOW W SPEECH Routine 2024 11:25 AM CDT XR CHEST PA OR AP 1 VW Routine 8:15 AM CDT POC GLUCOSE Routine 01/25/2025 5:02 AM CDT MAGNESIUM LEVEL Routine 01/25/2025 4:49 AM CDT BASIC METABOLIC PANEL Routine 01/25/2025 4:49 AM CDT CBC WITHOUT DIFFERENTIAL Routine 025 4:49 AM CDT POC GLUCOSE Routine 01/25/2025 2:17 AM CDT POC GLUCOSE Routine 01/24/2025 8:40 PM CDT VITAMIN D 25 HYDROXY Routine 01/24/2025 8:02 PM CDT VANCOMYCIN LEVEL TROUGH Timed Study 01/25/20 8:02 PM CDT POC GLUCOSE Routine 01/24/2025 5:27 PM CDT POC GLUCOSE Routine 01/24/2025 3:34 PM CDT IR TUBE PLACEMENT Routine 01/24/2025 11:35 AM CDT POC GLUCOSE Routine 01/24/2025 10:14 AM CDT PROTIME-INR Stat 01/24/2025 7:36 AM CDT POC GLUCOSE Routine 01/24/2025 4:24 AM CDT BASIC METABOLIC PANEL Routine 01/24/2025 3:37 AM CDT CBC WITHOUT DIFFERENTIAL Routine 025 3:37 AM CDT POC GLUCOSE Routine 01/23/2025 11:39 PM CDT POC GLUCOSE Routine 01/23/2025 5:41 PM CDT POC GLUCOSE Routine 01/23/2025 11:34 AM CDT CBC WITHOUT DIFFERENTIAL Routine 025 9:09 AM CDT POC GLUCOSE Routine 01/23/2025 7:36 AM CDT BASIC METABOLIC PANEL Routine 01/23/2025 6:03 AM CDT POC GLUCOSE Routine 01/23/2025 4:22 AM CDT POC GLUCOSE Routine 01/23/2025 12:04 AM CDT POC GLUCOSE Routine 01/22/2025 9:17 PM CDT POC GLUCOSE Routine 01/22/2025 5:36 PM CDT POC GLUCOSE Routine 01/22/2025 11:40 AM CDT EXTRA TUBE (URINE BOB) Stat 01/23/20 9:33 AM CDT URINALYSIS W/REFLEX MICROSCOPIC Stat [...] 5:26 AM CDT CBC WITHOUT DIFFERENTIAL Routine 025 4:43 AM CDT BASIC METABOLIC PANEL Routine 01/20/2025 4:42 AM CDT POC GLUCOSE Routine 01/19/2025 10:49 PM CDT POC GLUCOSE Routine 01/19/2025 5:08 PM CDT POC GLUCOSE Routine 01/19/2025 11:41 AM CDT POC GLUCOSE Routine 01/19/2025 7:30 AM CDT PHOSPHORUS Routine 01/19/2025 4:44 AM CDT MAGNESIUM LEVEL Routine 01/19/2025 4:44 AM CDT BASIC METABOLIC PANEL Routine 01/19/2025 4:44 AM CDT CBC WITHOUT DIFFERENTIAL Routine 025 4:44 AM CDT EKG 12-LEAD Stat 01/19/2025 [...] POC GLUCOSE Routine 01/14/2025 4:15 AM CDT BASIC METABOLIC PANEL Routine 01/14/2025 12:59 AM CDT MAGNESIUM LEVEL Stat 01/14/2025 12:59 AM CDT CBC WITH DIFFERENTIAL Routine 01/14/2025 12:59 AM CDT POC GLUCOSE Routine 01/14/2025 12:56 AM CDT POC GLUCOSE Routine 01/13/2025 8:23 PM CDT POC GLUCOSE Routine 01/13/2025 5:14 PM CDT EKG 12-LEAD Stat 01/13/2025 4:42 PM CDT COMPREHENSIVE METABOLIC PANEL Routine 1:40 PM CDT POC GLUCOSE Routine 01/13/2025 11:22 AM CDT XR ABDOMEN FOR FEEDING TUBE 1 VW Stat 01/13/2025 10:31 AM CDT POC GLUCOSE Routine 01/13/2025 7:49 AM CDT XR ABDOMEN FOR FEEDING TUBE 1 VW Stat 01/12/2025 9:57 PM CDT XR ABDOMEN FOR FEEDING TUBE 1 VW Stat 01/12/2025 6:35 PM CDT TROPONIN 6 HR, 5TH GEN Timed Study 5 6:26 PM CDT XR ABDOMEN FOR FEEDING TUBE 1 VW Stat 01/12/2025 4:40 PM CDT MAGNESIUM LEVEL Stat 01/12/2025 3:25 PM CDT TROPONIN 2 HR, 5TH GEN Timed Study 5 3:25 PM CDT COMPREHENSIVE METABOLIC PANEL Stat 3:[address] HEAD WO CONTRAST Stat 01/12/2025 2:13 PM CDT EXTRA TUBE (URINE BOB) Routine 01/13/20 25 2:06 PM CDT URINALYSIS W/REFLEX MICROSCOPIC Routine 01/12/2025 2:06 PM CDT C. DIFFICILE DETECTION Routine 5 2:06 PM CDT TSH Routine 01/12/2025 1:30 PM CDT TROPONIN BASELINE, 5TH GEN Stat 01/12 1:30 PM CDT CBC WITHOUT DIFFERENTIAL Stat 025 1:30 PM CDT EKG 12-LEAD Stat 01/12/2025 12:02 PM CDT COMPREHENSIVE METABOLIC PANEL Routine 10:40 AM CDT COMPREHENSIVE METABOLIC PANEL Routine 10:37 AM CDT COMPREHENSIVE METABOLIC PANEL Routine 10:39 AM CDT HEMOGLOBIN A1C Routine 01/05/2025 COMPREHENSIVE METABOLIC PANEL Routine 10:35 AM CDT TELEMETRY REPORT 12/13/2024 2:57 AM CDT POC [...] CDT UPPER ENDOSCOPY REPORT 9:54 AM CDT IN ANES INSERT ENDOTRACHEAL AIRWAY Routine 11/19/2024 9:47 [...] TROPONIN 2 HR, 5TH GEN Timed Study 3:40 AM CDT GI PATHOGEN PCR PANEL [...] WITH DIFFERENTIAL Stat 11/05/2024 12:47 AM CDT from Last 3 Months Results * TELEMETRY REPORT (02/01/2025 2:00 AM CDT) Only the most recent of4 resultswithin the time period is included. us Provider Scanning ECG ORDERABLES Final Result * INFLUENZA A/B, RSV AND COVID-19 PCR PANEL (01/31/2025 12:28 PM CDT) COVID-19 PCR NOT DETECTED Not Detected 02/01/20 1:[address] [facility] Influenza A by PCR NOT DETECTED Not Detected 01/31/2025 1:18 PM CDT [facility] Influenza B by PCR NOT DETECTED Not Detected 01/31/2025 1:18 PM CDT [facility] RSV by PCR NOT DETECTED Not Detected 01/31/2025 1:18 PM CDT [facility] Upper Respiratory ENTIRE NASOPHARYNX / Unknown Collection / Unknown 01/31/2025 12:28 PM CDT 01/31/2025 12:38 PM CDT Narrative [facility] - 01/31/2025 1:18 PM CDT This test [...] rule out infection with the 2019-Novel Coronavirus. us Lea Green MD MICROBIOLOGY - GENERAL ORDERABLE S Final Result Performing Organization Address [facility]/ZIP Co de Phone Number [facility] CLIA # [id number] [address] [place] [address] * (ABNORMAL) POC GLUCOSE (01/31/2025 12:27 PM CDT) Only the most recent of149 resultswithin the time period is included. GLUCOSE POC 117(H) 74 - 99 mg/dL 01/31/2025 12:27 PM CDT [facility] SPECIMEN SOURCE, GLUCOSE POC Capillary 01/31/2025 12:27 PM CDT [facility] Blood, whole 01/31/2025 12:2 7 PM CDT 01/31/2025 12:38 PM CDT Lea Green MD POINT OF CARE TESTING Final Resu lt Performing Organization Address [facility]/ZIP Co de Phone Number [facility] CLIA # [id number] [address] [place] [address] * MANUAL DIFFERENTIAL (01/31/2025 10:27 AM CDT) [facility] PLATELET EST. Adequate 01/31/2025 11:34 AM CDT [facility] ANISOCYTOSIS 2+ /hpf 01/31/2025 11:34 AM CDT [facility] POIKILOCYTES 1+ /hpf 01/31/2025 11:34 AM CDT [facility] POLYCHROMASIA 1+ /hpf 01/31/2025 11:34 AM CDT [facility] Blood Venipuncture / Unknown 01/31/2025 10:27 AM CDT 01/31/2025 11:03 AM CDT us Lea Green MD HEMATOLOGY ORDERABLES COM Final Result [facility] CLIA # [id number] [address] [place] [address] * (ABNORMAL) CBC WITH DIFFERENTIAL (01/31/2025 10:27 AM CDT) Only the most recent of21 resultswithin the time period is included. [facility] WBC 10.5 4.8 - 10.8 K/uL 01/31/2025 11:34 AM T [facility] RBC 3.74(L) 4.20 - 5.40 M/uL 01/31/2025 11:34 AM T [facility] HEMOGLOBIN 10.7(L) 12.0 - 16.0 g/dL 01/31/2025 11:34 AM T [facility] HEMATOCRIT 33.4(L) 36.0 - 46.0 % 01/31/2025 11:34 AM T [facility] MCV 89.3 84.0 - 103.0 fL 01/31/2025 11:34 AM T [facility] MCH 28.6 27.0 - 34.0 pg 01/31/2025 11:34 AM CDT [facility] MCHC 32.0 30.0 - 35.0 g/dL 01/31/2025 11:34 AM [facility] PLATELETS 405 140 - 440 K/uL 01/31/2025 11:34 AM [facility] MPV 10.4 8.9 - 12.8 fL 01/31/2025 11:34 AM [facility] RDW 20.0(H) 11.0 - 14.5 % 01/31/2025 11:34 AM [facility] RDW-STDEV 65.2(H) 37.0 - 54.0 fL 01/31/2025 11:34 AM [facility] [employer] [facility] NEUTROPHILS 72 42 - 75 % 01/31/2025 11:34 AM [facility] LYMPHOCYTES 15(L) 24 - 44 % 01/31/2025 11:34 AM [facility] [employer] [facility] MONOCYTES 9 2 - 10 % 01/31/2025 11:34 AM [facility] [employer] [facility] EOSINOPHILS 3 0 - 7 % 01/31/2025 11:34 AM [facility] BASOPHILS 1 0 - 1 % 01/31/2025 11:34 AM [facility] IMMATURE GRANULOCYTES 1 0 - 2 % 01/31/2025 11:34 AM [facility] NEUTROPHIL ABSOLUTE 7.63 2.00 - 8.00 K/uL 01/31/2025 11:34 AM [facility] LYMPHOCYTE ABSOLUTE 1.57 1.20 - 4.00 K/uL 01/31/2025 11:34 AM [facility] [employer] [facility] MONOCYTE ABSOLUTE 0.89(H) 0.10 - 0.60 K/uL 01/31/2025 11:34 AM [facility] EOSINOPHIL ABSOLUTE 0.33 0.00 - 0.70 K/uL 01/31/2025 11:34 AM [facility] BASOPHILS ABSOLUTE 0.05 0.00 - 0.20 K/uL 01/31/2025 11:34 AM [facility] IMMATURE GRANULOCYTES ABSOLUTE 0.06 0.00 - 0.10 K/uL 01/31/2025 11:34 AM CDT [facility] SMEAR REVIEWED: SR - See Smear Review on Manual Diff. 01/31/2025 11:34 AM CDT [facility] Blood Venipuncture / Unknown 01/31/2025 10:27 AM CDT 01/31/2025 11:03 AM CDT us Lea Green MD HEMATOLOGY ORDERABLES Final Resu lt [facility] CLIA # [id number] [address] [id number] * EKG 12-LEAD (01/30/2025 3:12 PM CDT) Only the most recent of7 resultswithin the time period is included. 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 : 1950 Requested By: Order Number: [id number] Reading MD: Licha Kowalski Measurements Intervals [place] Rate: 82 P: 63 IN: 170 QRS: -41 QRSD: 80 T: 79 QT: 420 QTc: 490 Interpretive Statements Normal sinus rhythm Left axis deviation T wave abnormality, consider anterior ischemia Abnormal ECG Electronically Signed On 02-01-2025 18:39:07 CDT by Licha Kowalski Procedure Note Licha Kowalski, DO - 02/01/[address] [address] Test Date: 2025-01-30 Pat Name: TIFFANY DARSHAN Department: 12 Room: [address] [place] [address] 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 SODIUM 142 136 - 145 mmol/L 01/28/2025 6:[address] [facility] [employer] [facility] POTASSIUM 3.9 3.5 - 5.1 mmol/L 01/28/2025 6:[address] [facility] [employer] [facility] CHLORIDE 103 98 - 107 mmol/L 01/28/2025 6:[address] [facility] [employer] [facility] CO2 26 22 - 29 mmol/L 01/28/2025 6:19 AM T [facility] CALCIUM 9.2 8.8 - 10.2 mg/dL 01/28/2025 6:19 AM T [facility] BUN 10 8 - 23 mg/dL 01/28/2025 6:19 AM T [facility] CREATININE 0.40(L) 0.51 - 0.95 mg/dL 01/28/2025 6:[address] [facility] [employer] [facility] Comment:The GFR result is no t clinically significant on patients <18 or >70 years of age. GLUCOSE 118(H) 74 - 99 mg/dL 01/28/2025 6:[address] [facility] [employer] [facility] GFR >60 mL/min/1. 73 sq meter 01/28/2025 6:[address] [facility] [employer] [facility] Comment:eGFR calculated with 2020 CKD-EPI equation. Vegetarian diet, extremely high or low muscle mass, and may affect results. Cystatin C with Glomerular Filtration Rate is a suitable alternative for these patients. ANION GAP 13 9 - 20 mmol/L 01/28/2025 6:[address] [facility] Blood Venipuncture / Unknown 01/28/2025 5:05 AM CDT 01/28/2025 5:45 AM CDT us Lea Green MD CHEMISTRY ORDERABLES Final Resul t [facility] CLIA # [id number] [address] [place] [address] * CT ABDOMEN PELVIS W CONTRAST (01/27/2025 7:09 PM CDT) Only the most recent of2 [...] represent sequela of malabsorption or diarrheal disease. us Lea Green MD CT ORDERABLES Final Result * (ABNORMAL) CBC WITHOUT DIFFERENTIAL (01/26/2025 3:50 AM CDT) Only the most recent of7 resultswithin the time period is included. WBC 5.8 4.8 - 10.8 K/uL 01/26/2025 4:17 AM [facility] RBC 3.48(L) 4.20 - 5.40 M/uL 01/26/2025 4:17 AM CDT [facility] HEMOGLOBIN 9.7(L) 12.0 - 16.0 g/dL 01/26/2025 4:17 AM [facility] HEMATOCRIT 30.8(L) 36.0 - 46.0 % 01/26/2025 4:[address] [facility] MCV 88.5 84.0 - 103.0 fL 01/26/2025 4:[address] [facility] MCH 27.9 27.0 - 34.0 pg 01/26/2025 4:[address] [facility] MCHC 31.5 30.0 - 35.0 g/dL 01/26/2025 4:[address] [facility] PLATELETS 357 140 - 440 K/uL 01/26/2025 4:[address] [facility] MPV 10.3 8.9 - 12.8 fL 01/26/2025 4:17 AM CDT [facility] RDW 20.2(H) 11.0 - 14.5 % 01/26/2025 4:17 AM CDT [facility] RDW-STDEV 64.8(H) 37.0 - 54.0 fL 01/26/2025 4:17 AM CDT [facility] Blood Venipuncture / Unknown 01/26/2025 3:50 AM CDT 01/26/2025 4:06 AM CDT us Erendira Jackson MD HEMATOLOGY ORDERABLES Fi nal Result [facility] CLIA # [id number] [address] [address] [place] [address] * XR VIDEO SWALLOW W SPEECH (01/25/2025 [...] PA-C. Supervision and final interpretation by Dr. Juna. Fluoroscopy was used for performance of video [...] swallowing, please see detailed speech pathology report. Erendira Jackson MD DIAGNOSTIC IMAGING ORDER KARON Final Result * XR CHEST PA OR AP 1 VW (01/25/2025 8:15 AM CDT) Only the most recent of3 [...] DIAGNOSTIC IMAGING ORDERABLES Fi nal Result * MAGNESIUM LEVEL (01/25/2025 4:49 AM CDT) Only the most recent of18 resultswithin the time period is included. MAGNESIUM 1.9 1.6 - 2.4 mg/dL 01/25/2025 8:04 AM CDT [facility] Blood Venipuncture / Unknown 01/25/2025 4:49 AM CDT 01/25/2025 5:01 AM CDT Lea Green MD CHEMISTRY ORDERABLES Final Resul t Performing Organization Address [facility] de Phone Number [facility] CLIA # [id number] [phone] [id number] * (ABNORMAL) VITAMIN D 25 HYDROXY (01/24/2025 8:02 PM CDT) Pathologist [facility] VITAMIN D TOTAL (25OH) 11(L) 30 - 100 ng/mL 01/24/2025 9:22 PM CDT [facility] Blood Venipuncture / Unknown 01/24/2025 8:02 PM CDT 01/24/2025 8:31 PM CDT Narrative [facility] - 01/24/2025 9:22 PM CDT Interpretive Data Chart: Deficient: 0 - 20 ng/mL Insufficient: 21 - 29 ng/mL Sufficient: 30 - 100 ng/mL Increased Risk of Hypercalciuria: >100 ng/ml Toxic: >150 ng/ml Lea Green MD CHEMISTRY ORDERABLES Final Resul t Performing Organization Address [facility] Co de Phone Number [facility] CLIA # [id number] [phone] [address] * VANCOMYCIN LEVEL TROUGH (01/24/2025 8:02 PM CDT) Pathologist [facility] VANCOMYCIN, TROUGH 13.3 10.0 - 17.0 ug/mL 01/24/2025 9:06 PM CDT [facility] Blood Venipuncture / Unknown 01/24/2025 8:02 PM CDT 01/24/2025 8:31 PM CDT us Erendira Jackson MD CHEMISTRY ORDERABLES Fin al Result [facility] CLIA # [id number] [address] [place] [address] [place] [address] * IR TUBE PLACEMENT (01/24/2025 11:35 AM CDT) Anatomical Region Laterality Modality X-Ray Angiograph y 01/24/2025 11:3 6 AM CDT Impressions 01/24/2025 7:37 PM CDT IMPRESSION: Please see below. PROCEDURE: IMAGE GUIDED GASTROSTOMY TUBE PLACEMENT DIAGNOSIS: See Reason for Exam. INDICATION: Poor appetite, malnutrition CANVAS WORKER: Miko Shay MD MEDICATIONS: 1. Versed and fentanyl were titrated to effect 2. Ancef 2 gram IV Moderate (conscious) sedation for this procedure was performed with continuous physician supervision. Medical history, physical exam, drug dosages, routes of drug administration, monitoring data, and precise times of service are documented in the medical record on the [facility]-approved form, 'Sedative/Analgesic Administration for Diagnostic and Therapeutic Procedures'. Please see nursing flow sheets for dosage and time. Sedation was administered by a trained independent observer. I personally supervised minutes of sedation. CONTRAST: 35 ml of nonionic contrast FLUOROSCOPY TIME: 10 minutes CATHETER: 16 Zambian G-Tube COMPLICATIONS: None ESTIMATED BLOOD LOSS: Minimal [...] the wire into the stomach. A 16 [place]ian Flor-Jaxson gastrostomy tube was placed over the wire through the sheath and into the stomach. The sheath was removed. Intraluminal position was again confirmed with the injection of contrast, and the gastrostomy tube balloon was inflated with 5 ml of saline. The patient tolerated the procedure well, without immediate complication. FINDINGS: Events Intern image of the abdomen demonstrates an enteric [...] Reason for Exam. INDICATION: Poor appetite, malnutrition CANVAS WORKER: Miko Shay MD MEDICATIONS: 1. Versed and fentanyl were titrated to effect 2. Ancef 2 gram IV Moderate (conscious) sedation for this procedure was performed with continuous physician supervision. Medical history, physical exam, drug dosages, routes of drug administration, monitoring data, and precise times of service are documented in the medical record on the [facility]-approved form, 'Sedative/Analgesic Administration for Diagnostic and Therapeutic Procedures'. Please see nursing flow sheets for dosage and time. Sedation was administered by a trained independent observer. I personally supervised minutes of sedation. CONTRAST: 35 ml of nonionic contrast FLUOROSCOPY TIME: 10 minutes CATHETER: 16 [place]ian G-Tube COMPLICATIONS: None ESTIMATED BLOOD LOSS: Minimal [...] the wire into the stomach. A 16 [place] Flor-Jaxson gastrostomy tube was placed over the wire through the sheath and into the stomach. The sheath was removed. Intraluminal position was again confirmed with the injection of contrast, and the gastrostomy tube balloon was inflated with 5 ml of saline. The patient tolerated the procedure well, without immediate complication. FINDINGS: Events Intern image of the abdomen demonstrates an enteric tube projecting over the stomach. Using fluoroscopy, a safe percutaneous window was identified free of overlying colon. Contrast injection confirms intraluminal position. Gastrostomy tube courses between the stay sutures. IMPRESSION: Successful placement of a gastrostomy tube as described above. If the patient desires, the T-fasteners can be removed in 2 weeks. us Erendira Jackson MD IR ORDERABLES Final Re sult * PROTIME-INR (01/24/2025 7:36 AM CDT) PROTIME 13.8 12.7 - 14.9 Seconds 01/24/2025 7:[address] [facility] [employer] [facility] INR 1.0 0.8 - 1.2 01/24/2025 7:[address] [facility] [employer] [facility] Blood Venipuncture / Unknown 01/24/2025 7:36 AM CDT 01/24/2025 7:[address] [facility] [employer] [facility] - 01/24/2025 7:55 AM CDT Expected Values for INR: DVT/PE Goal INR 2.5; range 2.0 - 3.0 Valve Replacement Tissue Goal INR 2.5; range 2.0 - 3.0 Valve Replacement Mechanical Goal INR 3.0; range 2.5 - 3.5 POST-IN Goal INR 2.5; range 2.0 - 3.0 or Goal INR 3.0; range 2.5 - 3.5 Atrial Fibrillation Goal INR 2.5; range 2.0 - 3.0 Ischemic Stroke Goal INR 2.5; range 2.0 - 3.0 Erendira Jackson MD HEMATOLOGY ORDERABLES Fi nal Result Performing Organization Address City/[facility]/ZIP Co de Phone Number [facility] [employer] [facility] CLIA # [id number] [address] [address] [place] [address] * EXTRA TUBE (URINE BOB) (01/22/2025 9:33 AM CDT) Only the most recent of2 resultswithin the time period is included. Urine URINE SPECIMEN OBTAINED BY CLEAN CATCH PROCEDURE / Unknown Collection / Unknown 01/22/2025 9:33 AM CDT 01/22/2025 9:38 AM CDT us Erendira Jackson MD URINE ORDERABLES Final R esult Performing Organization Address [facility] de Phone Number [facility] [employer] [facility] CLIA # [id number] [address] [address] * URINALYSIS WITH REFLEX MICROSCOPIC (01/22/2025 9:33 AM CDT) Only the most recent of2 resultswithin the time period is included. COLOR UA Pale Yellow Pale to Dark Yellow 01/22/2025 9:49 AM CDT [facility] CLARITY UA Clear Clear 01/22/2025 9:49 AM CDT [facility] SPECIFIC GRAVITY UA 1.014 1.003 - 1.035 01/22/2025 9:49 AM T [facility] PH UA 5.5 5.0 - 8.0 01/22/2025 9:49 AM T [facility] LEUKOCYTE ESTERASE UA Negative Negative 01/22/2025 9:49 AM CDT [facility] NITRITE UA Negative Negative 01/22/2025 9:49 AM CDT [facility] PROTEIN UA Negative Negative 01/22/2025 9:49 AM CDT [facility] GLUCOSE UA Negative Negative 01/22/2025 9:49 AM CDT [facility] KETONES UA Negative Negative 01/22/2025 9:49 AM CDT [facility] UROBILINOGEN UA <2.0 <2.0 mg/dL 9:49 AM CDT [facility] BILIRUBIN UA Negative Negative 01/22/2025 9:49 AM CDT [facility] BLOOD UA Negative Negative 01/22/2025 9:49 AM CDT [facility] Urine URINE SPECIMEN OBTAINED BY CLEAN CATCH PROCEDURE / Unknown Collection / Unknown 01/22/2025 9:33 AM CDT 01/22/2025 9:38 AM CDT us Erendira Jackson MD URINE ORDERABLES Final R esult Performing Organization Address City/[facility]/ZIP Co de Phone Number [facility] CLIA # [id number] [address] [place] [address] * LACTIC ACID (01/21/2025 7:57 PM CDT) Only the most recent of2 resultswithin the time period is included. LACTIC ACID 1.1 <=2.0 mmol/L 01/21/2025 8:32 PM CDT [facility] Blood Venipuncture / Unknown 01/21/2025 7:57 PM CDT 01/21/2025 8:09 PM CDT us Erendira Jackson MD CHEMISTRY ORDERABLES Fin al Result [facility] CLIA # [id number] [address] [facility] [address] [place] [address] * XR ABDOMEN 1 VW (01/21/2025 6:32 PM CDT) Only the most recent of2 [...] effusion. IMPRESSION: Nonspecific nonobstructive bowel gas pattern. us Erendira Jackson MD DIAGNOSTIC IMAGING ORDER KARON Final Result * BLOOD CULTURE (01/21/2025 6:27 PM CDT) Only the most recent of4 resultswithin the time period is included. BLOOD CULTURE No growth 01/26/2025 10:25 PM CDT [facility] Blood (Peripheral) Venipuncture / Unknown 01/21/2025 6:27 PM CDT 01/21/2025 6:44 PM CDT Narrative [facility] - 01/26/2025 10:25 PM CDT Specimen processed with suboptimal blood volume collected. us Erendira Jackson MD MICROBIOLOGY - GENERAL O RDERABLES Final Result Performing Organization Address [facility] Co de Phone Number [facility] CLIA # [id number] [address] [address] * POTASSIUM LEVEL (01/21/2025 1:45 PM CDT) POTASSIUM 3.9 3.5 - 5.1 mmol/L 01/21/2025 2:30 PM CDT [facility] Blood Venipuncture / Unknown 01/21/2025 1:45 PM CDT 01/21/2025 1:49 PM CDT us Erendira Jackson MD CHEMISTRY ORDERABLES Fin al Result Performing Organization Address [facility] Co de Phone Number [facility] CLIA # [id number] [facility] [address] * (ABNORMAL) PHOSPHORUS (01/19/2025 4:44 AM CDT) Only the most recent of5 resultswithin the time period is included. PHOSPHORUS 2.3(L) 2.5 - 4.5 mg/dL 01/19/2025 5:28 AM CDT [facility] Blood Venipuncture / Unknown 01/19/2025 4:44 AM CDT 01/19/2025 4:56 AM CDT us Sesar Cat DO CHEMISTRY ORDERABLES Final R esult Performing Organization Address City/[facility]/ZIP Co de Phone Number [facility] CLIA # [id number] [address] [facility] [place] [address] * ECHOCARDIOGRAM W/ CONTRAST AGENT (01/16/2025 10:08 AM CDT) EJECTION FRACTION 55 INTERFACE SYSTEM 01/16/2025 9:38 AM CDT Narrative INTERFACE SYSTEM - 01/16/2025 12:05 PM CDT [facility] Echocardiography Laboratory [facility] [place] [address] Transthoracic Echocardiography Patient: Tiffany Sexton Study ID: ECHO COMPLETE - Gender: F : 1950 Age: 74 Room: [facility] Study Date: 01/16/2025 Pt Status: Inpatient Study Time: 09:38:39 AM CSN #: [id number] Ordering:Galo Whitlock Apparel Sales Leader: KIKE Indications and History: Chest discomfort, low [...] diam/bsa 1.4 cm/m^2 Legend: (L) and (H) vel values outside specified reference range. [facility] are accredited with the Intersocietal Accreditation Commission - Echocardiography. Prepared and Electronically Authenticated Miguel Glover Confirmed 01/16/2025 12:05 Procedure Note Miguel Glover MD - 01/16/2025 [facility] Echocardiography Laboratory [address] [place] [address] Transthoracic Echocardiography Patient: Tiffany Sexton Study ID: ECHOCOMPLETE - Gender: F : 1950 Age: 74 Room: [facility] Study Date: 01/16/2025 Pt Status: Inpatient Study Time: 09:38:39 AM [facility] #: [id number] Ordering:Galo Whitlock Apparel Sales Leader: KIKE Indications and History: Chest discomfort, low [...] 9 TR peak v 268.31cm/sec E', med claudia, TDI 8.3 cm/sec Peak RV-RA grad, S 29 mm Hg E/e', med claudia, TDI 11 E', avg, TDI 9.7 cm/sec Aortic root Value E/e', avg, TDI 10 Root diam 2.8 cm Root diam/bsa 1.4cm/m^2 Legend: (L) and (H) vel values outside specified reference range. [facility] are accredited with theIntersocietal Accreditation Commission - Echocardiography. Prepared and Electronically Authenticated Miguel Glover Confirmed 01/16/2025 12:05 us Galo Whitlock MD US ORDERABLES Final Result INTERFACE SYSTEM Refer to clinic/hospital department * (ABNORMAL) COMPREHENSIVE METABOLIC PANEL (01/13/2025 1:40 PM CDT) Only the most recent of17 resultswithin the time period is included. [facility] SODIUM 136 136 - 145 mmol/L 01/13/2025 2:17 PM [facility] POTASSIUM 3.0(L) 3.5 - 5.1 mmol/L 01/13/2025 2:17 PM [facility] CHLORIDE 104 98 - 107 mmol/L 01/13/2025 2:17 PM T [facility] CO2 20(L) 22 - 29 mmol/L 01/13/2025 2:17 PM [facility] CALCIUM 7.9(L) 8.8 - 10.2 mg/dL 01/13/2025 2:17 PM [facility] BUN 3(L) 8 - 23 mg/dL 01/13/2025 2:17 PM [facility] CREATININE 0.45(L) 0.51 - 0.95 mg/dL 01/13/2025 2:17 PM [facility] Comment:The GFR result is no t clinically significant on patients <18 or >70 years of age. GLUCOSE 94 74 - 99 mg/dL 01/13/2025 2:17 PM [facility] TOTAL PROTEIN 5.0(L) 6.4 - 8.3 g/dL 01/13/2025 2:17 PM [facility] ALBUMIN 3.5 3.5 - 5.2 g/dL 01/13/2025 2:17 PM [facility] BILIRUBIN TOTAL 0.6 0.0 - 1.0 mg/dL 01/13/2025 2:17 PM [facility] ALKALINE PHOSPHATASE 62 35 - 104 U/L 01/13/2025 2:17 PM [facility] AST 31 10 - 35 U/L 01/13/2025 2:17 PM [facility] Comment:Hemolysis present. R esult may be falsely elevated. ALT 9 <=35 U/L 01/13/2025 2:17 PM [facility] GFR >60 mL/min/1. 73 sq meter 01/13/2025 2:[address] [facility] Comment:eGFR calculated with 2020 CKD-EPI equation. Vegetarian diet, extremely high or low muscle mass, and may affect results. Cystatin C with Glomerular Filtration Rate is a suitable alternative for these patients. ANION GAP 12 9 - 20 mmol/L 01/13/2025 2:17 PM CDT [facility] Blood Venipuncture / Unknown 01/13/2025 1:40 PM CDT 01/13/2025 1:45 PM CDT us Galo Whitlock MD CHEMISTRY ORDERABLES Final R esult [facility] CLIA # [id number] [address] [place] [address] * XR ABDOMEN FOR FEEDING TUBE 1 VW (01/13/2025 10:31 AM CDT) Only the most recent of4 resultswithin the time period is included. Anatomical [...] is nonspecific. IMPRESSION: Enteric tube as above. us Shirley Paz MD DIAGNOSTIC IMAGING O RDERABLES Final Result * (ABNORMAL) TROPONIN 6 HR, 5TH GEN (01/12/2025 6:26 PM CDT) Only the most recent of2 resultswithin the time period is included. TROPONIN T, 6 HR 5TH GEN 32(H) <11 ng/L 01/12/2025 7:18 PM CDT [facility] DELTA 6HR TROPONIN T 5 See Interp. 01/12/2025 7:18 PM CDT [facility] Blood Venipuncture / Unknown 01/12/2025 6:26 PM CDT 01/12/2025 6:46 PM CDT [facility] - 01/12/2025 7:18 PM CDT Troponin elevated. Delta indeterminate. Delay in collection of timed specimen beyond recommended collection interval. Results must be interpreted in clinical context. us Galo Whitlock MD CHEMISTRY ORDERABLES Final R esult [facility] CLIA # [id number] [address] [place] [address] * (ABNORMAL) TROPONIN 2 HR, 5TH GEN (01/12/2025 3:25 PM CDT) Only the most recent of2 resultswithin the time period is included. TROPONIN T, 2 HR 5TH GEN 31(H) <=10 ng/L 01/12/2025 5:13 PM CDT [facility] DELTA 2HR TROPONIN T 4 See Interp. 01/12/2025 5:13 PM CDT [facility] Blood Venipuncture / Unknown 01/12/2025 3:25 PM CDT 01/12/2025 4:10 PM CDT Narrative [facility] - 01/12/2025 5:13 PM CDT Troponin elevated. Delta indeterminate. Delay in collection of timed specimen beyond recommended collection interval. Results must be interpreted in clinical context. Galo Whitlock MD CHEMISTRY ORDERABLES Final R esult [facility] CLIA # [id number] [id number] [place] [address] * CT HEAD WO CONTRAST (01/12/2025 2:13 [...] The orbits are intact. Procedure Note Mani Garcia DO - 01/12/2025 Exam: CT HEAD WO [...] Mild sequela of small vessel ischemic disease. Galo Whitlock MD CT ORDERABLES Final Result * C. DIFFICILE DETECTION (01/12/2025 2:06 PM CDT) Pathologist [facility] TOXIGENIC C DIFFICILE NOT DETECTED Not Detected 01/12/2025 4:19 PM CDT [facility] Stool STOOL SPECIMEN / Unknown Collection / Unknown 01/12/2025 2:06 PM CDT 01/12/2025 2:21 PM CDT [facility] - 01/12/2025 4:19 PM CDT This assay is used to detect Toxigenic C. difficile target(B gene) DNA sequences in unformed stool specimens. If toxigenic C. difficile is not detected, but clinical suspicion is high please consult ID for consultation and potential repeat testing. This test should not be used as a test of cure. Galo Whitlock MD MICROBIOLOGY - GENERAL ORDER KARON Final Result Performing Organization Address [facility]/ZIP Co de Phone Number [facility] CLIA # [id number] [address] [place], [place] [address] * (ABNORMAL) TROPONIN BASELINE, 5TH GEN (01/12/2025 1:30 PM CDT) Only the most recent of2 resultswithin the time period is included. [facility] TROPONIN T, BASELINE 5TH GEN 27(H) <=10 ng/L 01/12/2025 2:17 PM CDT [facility] Comment:Hemolysis can falsel y decrease Troponin quantitation. Blood Venipuncture / Unknown 01/12/2025 1:30 PM CDT 01/12/2025 1:37 PM CDT [facility] - 01/12/2025 2:17 PM CDT Troponin elevated. Galo Whitlock MD CHEMISTRY ORDERABLES Final R esult Performing Organization Address City/[facility]/ZIP Co de Phone Number [facility] CLIA # [id number] [address] [facility] [place] [address] * (ABNORMAL) TSH (01/12/2025 1:30 PM CDT) [facility] TSH 4.51(H) 0.27 - 4.20 uIU/mL 01/12/2025 2:17 PM CDT [facility] Blood Venipuncture / Unknown 01/12/2025 1:30 PM CDT 01/12/2025 1:37 PM CDT us Galo Whitlock MD CHEMISTRY ORDERABLES Final R esult Performing Organization Address [facility]/ZIP Co de Phone Number [facility] CLIA # [id number] [address] [address] * HEMOGLOBIN A1C (01/05/2025) [facility] ABSTRACTED HGB A1C 5.0 % Blood 01/05/2025 Abstract Provider CHEMISTRY ORDERABLES Final Res ult * TRIGLYCERIDE (12/05/2024 1:28 AM CDT) Only the most recent of2 resultswithin the time period is included. [facility] TRIGLYCERIDE 145 <150 mg/dL 12/05/2024 2:51 AM CDT [facility] Blood Venipuncture / Unknown 12/05/2024 1:28 AM CDT 12/05/2024 2:17 AM CDT Narrative [facility] - 12/05/2024 2:51 AM CDT TRIGLYCERIDES mg/dL Normal < 150 Borderline High 150 - 199 High 200 - 499 Very High >= 500 Based on AHA/NCEP Guidelines. us Mike Gregory MD CHEMISTRY ORDERABLES Final Re sult [facility] CLIA # [id number] [address] [address] [place] [address] * XR SMALL BOWEL (12/03/2024 4:53 PM [...] evidence of ileus or small bowel obstruction. Mike Gregory MD DIAGNOSTIC IMAGING ORDERABLES Final Result * EXTRA TUBE (LAV) (11/30/2024 7:03 AM CDT) Blood Venipuncture / Unknown 11/30/2024 7:03 AM CDT 11/30/2024 7:07 AM CDT External Provider [facility] HEMATOLOGY ORDERABLES Christiana l Result [facility] [employer] [facility] CLIA # [id number] [address] [place] [address] * (ABNORMAL) RENAL FUNCTION PANEL (11/20/2024 5:10 AM CDT) SODIUM 134(L) 136 - 145 mmol/L 11/20/2024 6:15 AM [facility] POTASSIUM 3.5 3.5 - 5.1 mmol/L 11/20/2024 6:15 AM [facility] CHLORIDE 96(L) 98 - 107 mmol/L 11/20/2024 6:15 AM [facility] CO2 25 22 - 29 mmol/L 11/20/2024 6:15 AM [facility] CALCIUM 8.3(L) 8.8 - 10.2 mg/dL 11/20/2024 6:15 AM [facility] BUN 3(L) 8 - 23 mg/dL 11/20/2024 6:15 AM [facility] CREATININE 0.38(L) 0.51 - 0.95 mg/dL 11/20/2024 6:15 AM [facility] Comment:The GFR result is no t clinically significant on patients <18 or >70 years of age. GLUCOSE 79 74 - 99 mg/dL 11/20/2024 6:15 AM [facility] ALBUMIN 2.2(L) 3.5 - 5.2 g/dL 11/20/2024 6:15 AM [facility] PHOSPHORUS 3.4 2.5 - 4.5 mg/dL 11/20/2024 6:15 AM [facility] GFR >60 mL/min/1. 73 sq meter 11/20/2024 6:15 AM [facility] Comment:eGFR calculated with 2020 CKD-EPI equation. Vegetarian diet, extremely high or low muscle mass, and may affect results. Cystatin C with Glomerular Filtration Rate is a suitable alternative for these patients. ANION GAP 13 9 - 20 mmol/L 11/20/2024 6:15 AM CDT [facility] Blood Venipuncture / Unknown 11/20/2024 5:10 AM CDT 11/20/2024 5:43 AM CDT Gold Avila MD CHEMISTRY ORDERABLES Final R esult [facility] CLIA # [id number] [address] [place] [address] [place] [address] * UPPER ENDOSCOPY REPORT (11/19/2024 9:54 AM CDT) Narrative Procedure Note Aniya Shell DO - 11/19/2024 9:54 AM CDT [facility] Patient Name: Tiffany Sexton Procedure Date: [...] This is a 74 year old female. [address] [place] [address] Aniya Arango DO GI PROCEDURE ORDERABLE S Final Result * IN ANES INSERT ENDOTRACHEAL AIRWAY (11/19/2024 9:47 AM CDT) Narrative Maryam Liao CRNA - 11/19/2024 9:47 AM CDT Maryam Liao CRNA 11/19/2024 9:52 AM Airway Date/Time: 11/19/2024 9:47 AM Location: OR Plan: elective intubation Patient Identity Confirmed by: Verbally with patient and armband Airway: Difficult Staffing Performed: CSO/CAA Authorized by: Vel Foote MD Performed by: [...] CHIRINOS CT ORDERABLES Final Result * (ABNORMAL) GI PATHOGEN PCR PANEL (11/17/2024 2:17 AM CDT) C difficile toxin A/B by PCR DETECTED( A) Not Detected 11/17/2024 4:19 AM CDT [facility] Comment: The [employer] GI PCR panel identifies [...] AM CDT 11/17/2024 2:26 AM CDT Narrative [facility] - 11/17/2024 4:19 AM CDT Positive GI [...] MICROBIOLOGY - GENER AL ORDERABLES Final Result [id number] [address] [place] [address] * ECHO LIMITED W DOPPLER AND COLOR FLOW (11/15/2024 1:43 PM CDT) us Abstract Provider US ORDERABLES Final Result * LIPID PANEL (11/15/2024) ABSTRACTED CHOLESTEROL 182 ABSTRACTED TRIGLYCERIDE 93 ABSTRACTED HDL 37 ABSTRACTED LDL CALCULATED 126 Blood 11/15/2024 us Abstract Provider CHEMISTRY ORDERABLES Final Res ult * (ABNORMAL) URINALYSIS WITH REFLEX CULTURE (11/05/2024 1:12 AM CDT) COLOR UA Yellow Pale to Dark Yellow 11/05/2024 1:30 AM CDT [facility] CLARITY UA Clear Clear 11/05/2024 1:30 AM CDT [facility] SPECIFIC GRAVITY UA <=1.005 1.003 - 1.035 11/05/2024 1:30 AM CDT [facility] PH UA 6.0 5.0 - 8.0 11/05/2024 1:30 AM CDT [facility] LEUKOCYTE ESTERASE UA 1+(A) Negative 11/05/2024 1:30 AM CDT [facility] NITRITE UA Negative Negative 11/05/2024 1:30 AM CDT [facility] PROTEIN UA Negative Negative 11/05/2024 1:30 AM CDT [facility] GLUCOSE UA Negative Negative 11/05/2024 1:30 AM CDT [facility] KETONES UA 2+(A) Negative 11/05/2024 1:30 AM CDT [facility] UROBILINOGEN UA 0.2 <2.0 mg/dL 1:30 AM CDT [facility] BILIRUBIN UA Negative Negative 11/05/2024 1:30 AM CDT [facility] BLOOD UA Trace(A) Negative 11/05/2024 1:30 AM CDT [facility] Comment: For patients with 'trace' results, consider ordering a culture and sensitivity if clinically indicated. Urine URINE SPECIMEN OBTAINED BY CLEAN CATCH PROCEDURE / Unknown Collection / Unknown 11/05/2024 1:12 AM CDT 11/05/2024 1:17 AM CDT Narrative [facility] - 11/05/2024 1:30 AM CDT Based on results, a urine culture has been reflexed. Nicole Golden MD URINE ORDERABLES Final Resul t Performing Organization Address City/[facility] Co de Phone Number [facility] CLIA # [id number] [address] [place] [address] * (ABNORMAL) URINALYSIS MICROSCOPY ONLY (11/05/2024 1:12 AM CDT) WBC UA 0-2 0 - 2 /hpf 11/05/2024 1:30 AM CDT [facility] RBC UA 0-2 0 - 2 /hpf 11/05/2024 1:30 AM CDT [facility] BACTERIA UA Negative Negative /hpf 11/05/2024 1:30 AM CDT [facility] EPITHELIAL CELLS, URINE 6-10(A) 0 - 5 /hpf 11/05/2024 1:30 AM CDT [facility] YEAST, BUDDING Present(A) Absent 11/05/2024 1:30 AM CDT [facility] Urine URINE SPECIMEN OBTAINED BY CLEAN CATCH PROCEDURE / Unknown Collection / Unknown 11/05/2024 1:12 AM CDT 11/05/2024 1:17 AM CDT us Nicole Golden MD URINE ORDERABLES Final Resul t [facility] CLIA # [id number] [address] [place] [address] * URINE CULTURE (11/05/2024 1:12 AM CDT) CULTURE Polymicrobial growth consistent with normal urethral magali and/or colonizing bacteria 11/06/2024 12:47 PM CDT [facility] Urine URINE SPECIMEN OBTAINED BY CLEAN CATCH PROCEDURE / Unknown Collection / Unknown 11/05/2024 1:12 AM CDT 11/05/2024 1:19 AM CDT Nicole Golden MD MICROBIOLOGY - GENERAL ORDER KARON Final Result Performing Organization Address City/[facility]/ZIP Co de Phone Number [facility] CLIA # [id number] [address] [address] * LIPASE (11/05/2024 12:47 AM CDT) LIPASE 44 13 - 60 U/L 11/05/2024 1:11 AM CDT [facility] Blood Venipuncture / Unknown 11/05/2024 12:47 AM CDT 11/05/2024 12:53 AM CDT Nicole Golden MD CHEMISTRY ORDERABLES Final R esult [facility] CLIA # [id number] [address] [place] [address] from Last 3 Months Insurance MEDICARE PART A AND B RX [employer] Member Subscriber Plan / Payer (Ef fective 2023-Present) Name:Darshan Tiffany Sanchez Relation to Subscriber:Self Name:Tiffany Sexton Laura Payer ID:Not on file Group ID:[id number] Type:RX Medicare Part D Address: [place] [address] Advance Directives For more information, please contact: [phone] Documents on File Type Date Recorded Patient Tax Director Expl anation Advance Directive POA 02/01/2025 8:02 AM A dvance Directive POA * Full Code (Latest Code Status on File) Date Activated Date Inactivated Comments 01/12/2025 3:16 PM 01/31/2025 9:18 PM * Full Code Date Activated Date Inactivated Comments 11/23/2024 6:33 PM 12/08/2024 10:16 PM * Default Full Code - Needs Discussion Date Activated Date Inactivated Comments 11/16/2024 9:46 PM 11/23/2024 6:33 PM * Full Code Date Activated Date Inactivated Comments 10/26/2024 9:49 AM 10/29/2024 4:39 PM * Full Code Date Activated Date Inactivated Comments 09/06/2024 3:32 PM 09/17/2024 7:30 AM Care Teams Project Planner Relationship Specialty Start Date End Date Non-Staff, Physician NO ADDRESS ON FILE PCP - General 08/30/13
--- OUTSIDE RECORDS SUMMARY | 2025-02-03 22:13 | XMS_ITS | Encounter Summary ---
Author Organization [facility] Address 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 Gender Identity Not on file Sexual Orientation Not on file documented as of this encounter Plan of Treatment Not on file documented as of this encounter Procedures Procedure Name Priority Date/Time Associated Diagnosis Comments COMPREHENSIVE METABOLIC PANEL Routine 01/11/2025 10:40 AM CDT COMPREHENSIVE METABOLIC PANEL Routine 01/08/2025 10:37 AM CDT COMPREHENSIVE METABOLIC PANEL Routine 01/05/2025 10:39 AM CDT COMPREHENSIVE METABOLIC PANEL Routine 01/04/2025 10:35 AM CDT documented in this encounter Results * COMPREHENSIVE METABOLIC PANEL (01/11/2025 10:40 AM CDT) Blood us Abstract Provider CHEMISTRY ORDERABLES Final Res ult * COMPREHENSIVE METABOLIC PANEL (01/08/2025 10:37 AM CDT) Blood us Abstract Provider CHEMISTRY ORDERABLES Final Res ult * COMPREHENSIVE METABOLIC PANEL (01/05/2025 10:39 AM CDT) Blood us Abstract Provider CHEMISTRY ORDERABLES Final Res ult * COMPREHENSIVE METABOLIC PANEL (01/04/2025 10:35 AM CDT) Blood us Abstract Provider CHEMISTRY ORDERABLES Final Res ult documented in this encounter Visit Diagnoses Not on filedocumented in this encounter Care Teams Chief Knowledge Officer Relationship Specialty Start Date End Date Non-Staff, Physician NO ADDRESS ON FILE PCP - General 08/30/13 documented as of this encounter
--- OUTSIDE RECORDS SUMMARY | 2025-02-03 22:13 | XMS_ITS | Encounter Summary ---
Author Organization [facility] Address [address] [place] [address] Care Team Providers Care Stringed Instrument Tuner Name Role Phone Non-Staff, Physician Primary Care Provider Unava ilable Encounter Details Date Type Department Care Team (Latest Contact Info) Description 06/22/2000 Outpatient Historical [facility] Geraldo Kessler MD [address] [address] Follow-up examination, following unspecified surgery (Primary Dx) Social History Tobacco Use Types Packs/Day Years Used Date Smoking Tobacco: Never Assessed Comments Unknown Sex and Gender Information Value Date Recorded Sex Assigned at Not on file Legal Sex Female 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
--- OUTSIDE RECORDS SUMMARY | 2025-02-03 22:13 | XMS_ITS | Encounter Summary ---
Author Organization [facility] Address [address] [place] [address] Care Team Providers Care Anesthesiology Tech Name Role Phone Non-Staff, Physician Primary Care Provider Unava ilable Encounter Details Date Type Department Care Team (Latest Contact Info) Description 09/27/2002 Outpatient Historical [facility] Family Medicine- [place] [address] [place] [address] Tereso Rees DO NO ADDRESS ON FILE HEADACHE (Primary Dx) Social History Tobacco Use Types Packs/Day Years Used Date Smoking Tobacco: Never Assessed Comments Unknown Sex and Gender Information Value Date Recorded Sex Assigned at Not on file Legal Sex Female 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
--- OUTSIDE RECORDS SUMMARY | 2025-02-03 22:13 | XMS_ITS | Encounter Summary ---
Author Organization [facility] Address [address] [place] [address] Care Team Providers Care Commutator Presser Name Role Phone Non-Staff, Physician Primary Care Provider Unava ilable Encounter Details Date Type Department Care Team (Latest Contact Info) Description 04/02/2001 Outpatient Historical [facility] Family Medicine- [place] [address] [place] [address] Wanda Castro MD NO ADDRESS ON FILE TENSION HEADACHE (Primary Dx); ANXIETY STATE NOS; BRIEF DEPRESSIVE REACT; ALLERGIC RHINITIS NOS Social History Tobacco Use Types Packs/Day Years Used Date Smoking Tobacco: Never Assessed Comments Unknown Sex and Gender Information Value Date Recorded Sex Assigned at Not on file 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
--- OUTSIDE RECORDS SUMMARY | 2025-02-03 22:13 | XMS_ITS | Encounter Summary ---
Author Organization [employer] Address 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 LABORATORY [facility] Blood Collection / Unknown 09/23/2024 4:30 AM CDT 09/23/2024 5:47 AM CDT External Provider [facility] CHEMISTRY ORDERABLES Final Result Performing Organization Address City/[facility]/ZIP Co de Phone Number [facility] CLIA # [id number] [address] [facility] [place] [address] * MANUAL DIFFERENTIAL (09/23/2024 4:30 AM CDT) Pathologist [facility] PLATELET EST. Increased 09/23/2024 6:18 AM CDT [facility] ANISOCYTOSIS 2+ /hpf 09/23/2024 6:18 AM CDT [facility] POIKILOCYTES 1+ /hpf 09/23/2024 6:18 AM CDT [facility] POLYCHROMASIA 1+ /hpf 09/23/2024 6:18 AM CDT [facility] Blood Collection / Unknown 09/23/2024 4:30 AM CDT 09/23/2024 5:47 AM CDT External Provider [facility] HEMATOLOGY ORDERABLES COM Final Result [facility] CLIA # [id number] [address] [address] * MAGNESIUM LEVEL (09/23/2024 4:30 AM CDT) [facility] MAGNESIUM 1.9 1.6 - 2.4 mg/dL 09/23/2024 6:23 AM CDT [facility] Blood Collection / Unknown 09/23/2024 4:30 AM CDT 09/23/2024 5:47 AM CDT us External Provider [facility] CHEMISTRY ORDERABLES Final Result [facility] CLIA # [id number] [address] [place] [address] * (ABNORMAL) CBC WITH DIFFERENTIAL (09/23/2024 4:30 AM CDT) [facility] WBC 8.6 4.8 - 10.8 K/uL 09/23/2024 6:18 AM CDT [facility] RBC 3.07(L) 4.20 - 5.40 M/uL 09/23/2024 6:18 AM CDT [facility] HEMOGLOBIN 8.4(L) 12.0 - 16.0 g/dL 09/23/2024 6:18 AM CDT [facility] HEMATOCRIT 27.5(L) 36.0 - 46.0 % 09/23/2024 6:18 AM CDT [facility] MCV 89.6 84.0 - 103.0 fL 09/23/2024 6:18 AM CDT [facility] MCH 27.4 27.0 - 34.0 pg 09/23/2024 6:18 AM CDT [facility] MCHC 30.5 30.0 - 35.0 g/dL 09/23/2024 6:18 AM CDT [facility] PLATELETS 506(H) 140 - 440 K/uL 09/23/2024 6:18 AM [facility] MPV 10.1 8.9 - 12.8 fL 09/23/2024 6:18 AM [facility] RDW 20.5(H) 11.0 - 14.5 % 09/23/2024 6:18 AM [facility] RDW-STDEV 66.1(H) 37.0 - 54.0 fL 09/23/2024 6:18 AM [facility] NEUTROPHILS 63 42 - 75 % 09/23/2024 6:18 AM [facility] LYMPHOCYTES 20(L) 24 - 44 % 09/23/2024 6:18 AM [facility] MONOCYTES 10 2 - 10 % 09/23/2024 6:18 AM [facility] EOSINOPHILS 5 0 - 7 % 09/23/2024 6:18 AM [facility] BASOPHILS 1 0 - 1 % 09/23/2024 6:18 AM [facility] IMMATURE GRANULOCYTES 1 0 - 2 % 09/23/2024 6:18 AM [facility] NEUTROPHIL ABSOLUTE 5.44 2.00 - 8.00 K/uL 09/23/2024 6:18 AM [facility] LYMPHOCYTE ABSOLUTE 1.70 1.20 - 4.00 K/uL 09/23/2024 6:18 AM [facility] MONOCYTE ABSOLUTE 0.88(H) 0.10 - 0.60 K/uL 09/23/2024 6:18 AM [facility] EOSINOPHIL ABSOLUTE 0.41 0.00 - 0.70 K/uL 09/23/2024 6:18 AM [facility] BASOPHILS ABSOLUTE 0.07 0.00 - 0.20 K/uL 09/23/2024 6:18 AM [facility] IMMATURE GRANULOCYTES ABSOLUTE 0.08 0.00 - 0.10 K/uL 09/23/2024 6:18 AM [facility] SMEAR REVIEWED: SR - See Smear Review on Manual Diff. 09/23/2024 6:18 AM CDT [facility] Blood Collection / Unknown 09/23/2024 4:30 AM CDT 09/23/2024 5:47 AM CDT us External Provider [facility] HEMATOLOGY ORDERABLES Christiana hernandez Result [facility] CLIA # [id number] [address] [place] [address] [place] [address] * (ABNORMAL) BASIC METABOLIC PANEL (09/23/2024 4:30 AM CDT) SODIUM 138 136 - 145 mmol/L 09/23/2024 6:23 AM [facility] POTASSIUM 4.1 3.5 - 5.1 mmol/L 09/23/2024 6:23 AM [facility] CHLORIDE 101 98 - 107 mmol/L 09/23/2024 6:23 AM [facility] CO2 26 22 - 29 mmol/L 09/23/2024 6:23 AM [facility] CALCIUM 8.2(L) 8.8 - 10.2 mg/dL 09/23/2024 6:23 AM [facility] BUN 12 8 - 23 mg/dL 09/23/2024 6:23 AM [facility] CREATININE 0.54 0.51 - 0.95 mg/dL 09/23/2024 6:23 AM T [facility] Comment:The GFR result is no t clinically significant on patients <18 or >70 years of age. GLUCOSE 160(H) 74 - 99 mg/dL 09/23/2024 6:23 AM [facility] GFR >60 mL/min/1.7 3 sq meter 09/23/2024 6:23 AM [facility] Comment:eGFR calculated with 2020 CKD-EPI equation. Vegetarian diet, extremely high or low muscle mass, and may affect results. Cystatin C with Glomerular Filtration Rate is a suitable alternative for these patients. ANION GAP 11 9 - 20 mmol/L 09/23/2024 6:23 AM CDT [facility] [employer] [facility] Blood Collection / Unknown 09/23/2024 4:30 AM CDT 09/23/2024 5:47 AM CDT us External Provider [facility] CHEMISTRY ORDERABLES Final Result [facility] CLIA # [id number] [address] [address] documented in this encounter Visit Diagnoses Not on filedocumented in this encounter Additional Health Concerns Infection Onset Date Last Indicated Resolved Time R/O GI Pathogen 10/27/2024 10/27/2024 10/27/2024 1 :05 PM CDT C Diff Comment:01/19/25: Pt no longer having symptoms of C. Diff. Resolved per c. Diff update 01/02/25. 11/17/24 This patient is within their 60 day window of a positive C diff, repeat testing is not recommended. This patient does require Enteric isolation for the duration of their admission. Patricia Hendrix RN, Infection Prevention 10/27/2024 11/17/2024 01/19/2025 9:29 AM C DT R/O GI Pathogen 11/16/2024 11/17/2024 11/17/2024 4 :19 AM CDT R/O COVID-19 01/31/2025 01/31/2025 01/31/2025 1:18 PM CDT documented as of this encounter Care Teams Mining Helper Relationship Specialty Start Date End Date Non-Staff, Physician NO ADDRESS ON FILE PCP - General 08/30/13 documented as of this encounter
--- OUTSIDE RECORDS SUMMARY | 2025-02-03 22:14 | XMS_ITS | Encounter Summary ---
Author Organization [employer] Address 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 Gender Identity Not on file Sexual Orientation [...] (ABNORMAL) C-REACTIVE PROTEIN (09/26/2024 4:52 AM CDT) [facility] CRP 43.4(H) 0.0 - 5.0 mg/L 09/26/2024 6:12 AM CDT [facility] Blood Collection / Unknown 09/26/2024 4:52 AM CDT 09/26/2024 5:26 AM CDT us External Provider [facility] CHEMISTRY ORDERABLES Final Result Performing Organization Address City/State/[facility] Co de Phone Number [facility] CLIA # [id number] [address] [place] [address] * (ABNORMAL) CBC WITH DIFFERENTIAL (09/26/2024 4:52 AM CDT) [facility] WBC 7.3 4.8 - 10.8 K/uL 09/26/2024 5:39 AM CDT [facility] RBC 3.32(L) 4.20 - 5.40 M/uL 09/26/2024 5:39 AM CDT [facility] HEMOGLOBIN 9.3(L) 12.0 - 16.0 g/dL 09/26/2024 5:39 AM CDT [facility] HEMATOCRIT 30.8(L) 36.0 - 46.0 % 09/26/2024 5:39 AM CDT [facility] MCV 92.8 84.0 - 103.0 fL 09/26/2024 5:39 AM CDT [facility] MCH 28.0 27.0 - 34.0 pg 09/26/2024 5:39 AM CDT [facility] MCHC 30.2 30.0 - 35.0 g/dL 09/26/2024 5:39 AM CDT [facility] PLATELETS 437 140 - 440 K/uL 09/26/2024 5:39 AM T [facility] MPV 9.8 8.9 - 12.8 fL 09/26/2024 5:39 AM [facility] RDW 19.7(H) 11.0 - 14.5 % 09/26/2024 5:39 AM [facility] RDW-STDEV 66.9(H) 37.0 - 54.0 fL 09/26/2024 5:39 AM T [facility] NEUTROPHILS 58 42 - 75 % 09/26/2024 5:39 AM [facility] LYMPHOCYTES 25 24 - 44 % 09/26/2024 5:39 AM [facility] MONOCYTES 10 2 - 10 % 09/26/2024 5:39 AM [facility] EOSINOPHILS 6 0 - 7 % 09/26/2024 5:39 AM [facility] BASOPHILS 1 0 - 1 % 09/26/2024 5:39 AM [facility] IMMATURE GRANULOCYTES 1 0 - 2 % 09/26/2024 5:39 AM [facility] NEUTROPHIL ABSOLUTE 4.21 2.00 - 8.00 K/uL 09/26/2024 5:39 AM [facility] LYMPHOCYTE ABSOLUTE 1.83 1.20 - 4.00 K/uL 09/26/2024 5:39 AM [facility] MONOCYTE ABSOLUTE 0.70(H) 0.10 - 0.60 K/uL 09/26/2024 5:39 AM [facility] EOSINOPHIL ABSOLUTE 0.41 0.00 - 0.70 K/uL 09/26/2024 5:39 AM [facility] BASOPHILS ABSOLUTE 0.06 0.00 - 0.20 K/uL 09/26/2024 5:39 AM [facility] IMMATURE GRANULOCYTES ABSOLUTE 0.06 0.00 - 0.10 K/uL 09/26/2024 5:39 AM [facility] SMEAR REVIEWED: NN - No Action Needed 09/26/2024 5:39 AM T [facility] Blood Collection / Unknown 09/26/2024 4:52 AM CDT 09/26/2024 5:26 AM CDT us External Provider [facility] HEMATOLOGY ORDERABLES Christiana l Result [facility] CLIA # [id number] [facility] [address] [place] [address] * (ABNORMAL) COMPREHENSIVE METABOLIC PANEL (09/26/2024 4:52 AM CDT) SODIUM 137 136 - 145 mmol/L 09/26/2024 6:12 AM T [facility] POTASSIUM 3.9 3.5 - 5.1 mmol/L 09/26/2024 6:12 AM [facility] CHLORIDE 101 98 - 107 mmol/L 09/26/2024 6:12 AM T [facility] CO2 25 22 - 29 mmol/L 09/26/2024 6:12 AM T [facility] CALCIUM 8.5(L) 8.8 - 10.2 mg/dL 09/26/2024 6:12 AM [facility] BUN 14 8 - 23 mg/dL 09/26/2024 6:12 AM T [facility] CREATININE 0.51 0.51 - 0.95 mg/dL 09/26/2024 6:12 AM T [facility] Comment:The GFR result is no t clinically significant on patients <18 or >70 years of age. GLUCOSE 155(H) 74 - 99 mg/dL 09/26/2024 6:12 AM [facility] TOTAL PROTEIN 6.1(L) 6.4 - 8.3 g/dL 09/26/2024 6:12 AM [facility] ALBUMIN 2.7(L) 3.5 - 5.2 g/dL 09/26/2024 6:12 AM CDT [facility] BILIRUBIN TOTAL 0.2 0.0 - 1.0 mg/dL 09/26/2024 6:12 AM T [facility] ALKALINE PHOSPHATASE 80 35 - 104 U/L 09/26/2024 6:12 AM T [facility] AST 42(H) 10 - 35 U/L 09/26/2024 6:12 AM T [facility] ALT 36(H) <=35 U/L 09/26/2024 6:12 AM T [facility] GFR >60 mL/min/1.7 3 sq meter 09/26/2024 6:12 AM [facility] Comment:eGFR calculated with 2020 CKD-EPI equation. Vegetarian diet, extremely high or low muscle mass, and may affect results. Cystatin C with Glomerular Filtration Rate is a suitable alternative for these patients. ANION GAP 11 9 - 20 mmol/L 09/26/2024 6:12 AM T [facility] Blood Collection / Unknown 09/26/2024 4:52 AM CDT 09/26/2024 5:26 AM CDT us External Provider [facility] CHEMISTRY ORDERABLES Final Result Performing Organization Address City/State/[facility] Co de Phone Number [facility] CLIA # [id number] [address] [place] [address] documented in this encounter Visit Diagnoses Not [...] documented as of this encounter Care Teams Assembler Fishing Floats Relationship Specialty Start Date End Date Non-Staff, Physician NO ADDRESS ON FILE PCP - General 08/30/13 documented as of this encounter
--- OUTSIDE RECORDS SUMMARY | 2025-02-03 22:14 | XMS_ITS | Encounter Summary ---
Author Organization [facility] Address [address] [place] [address] Care Team Providers Care Car Pre Cooler Name Role Phone Non-Staff, Physician Primary Care Provider Unava ilable Encounter Details Date Type Department Care Team (Late st Contact Info) Description 04/12/2003 Outpatient Historical [facility] Family Medicine- [place] [address] [place] [phone] Social History Tobacco Use Types Packs/Day Years Used Date Smoking Tobacco: Never Assessed Comments Unknown Sex and Gender Information Value Date Recorded Sex Assigned at Not on file 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
--- OUTSIDE RECORDS SUMMARY | 2025-02-03 22:14 | XMS_ITS | Encounter Summary ---
Author Organization [facility] Address 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 HEMOGLOBIN 9.9(L) 12.0 - 16.0 g/dL 10/03/2024 5:[address] [facility] HEMATOCRIT 32.7(L) 36.0 - 46.0 % 10/03/2024 5:[address] [facility] MCV 91.1 84.0 - 103.0 fL 10/03/2024 5:[address] [facility] MCH 27.6 27.0 - 34.0 pg 10/03/2024 5:[address] [facility] MCHC 30.3 30.0 - 35.0 g/dL 10/03/2024 5:[address] [facility] PLATELETS 396 140 - 440 K/uL 10/03/2024 5:[address] [facility] MPV 10.7 8.9 - 12.8 fL 10/03/2024 5:[address] [facility] RDW 17.6(H) 11.0 - 14.5 % 10/03/2024 5:[address] [facility] RDW-STDEV 59.0(H) 37.0 - 54.0 fL 10/03/2024 5:[address] [facility] NEUTROPHILS 68 42 - 75 % 10/03/2024 5:[address] [facility] LYMPHOCYTES 18(L) 24 - 44 % 10/03/2024 5:[address] [facility] MONOCYTES 9 2 - 10 % 10/03/2024 5:[address] [facility] EOSINOPHILS 4 0 - 7 % 10/03/2024 5:[address] [facility] BASOPHILS 0 0 - 1 % 10/03/2024 5:[address] [facility] IMMATURE GRANULOCYTES 1 0 - 2 % 10/03/2024 5:[address] [facility] NEUTROPHIL ABSOLUTE 7.58 2.00 - 8.00 K/uL 10/03/2024 5:[address] [facility] LYMPHOCYTE ABSOLUTE 2.00 1.20 - 4.00 K/uL 10/03/2024 5:[address] [facility] MONOCYTE ABSOLUTE 1.04(H) 0.10 - 0.60 K/uL 10/03/2024 5:[address] [facility] EOSINOPHIL ABSOLUTE 0.41 0.00 - 0.70 K/uL 10/03/2024 5:[address] [facility] BASOPHILS ABSOLUTE 0.05 0.00 - 0.20 K/uL 10/03/2024 5:[address] [facility] IMMATURE GRANULOCYTES ABSOLUTE 0.06 0.00 - 0.10 K/uL 10/03/2024 5:[address] [facility] SMEAR REVIEWED: NA - Not Applicable 10/03/2024 5:[address] [facility] Blood Collection / Unknown 10/03/2024 3:20 AM CDT 10/03/2024 5:43 AM CDT us Harry Reyes DO HEMATOLOGY ORDERABLES Final Result [facility] CLIA # [id number] [address] [address] [place] [address] * (ABNORMAL) C-REACTIVE PROTEIN (10/03/2024 3:20 AM CDT) CRP 258.3(H) 0.0 - 5.0 mg/L 10/03/2024 6:[address] [facility] Blood Collection / Unknown 10/03/2024 3:20 AM CDT 10/03/2024 5:43 AM CDT Harry Reyes DO CHEMISTRY ORDERABLES Final R esult [facility] CLIA # [id number] [address] [address] [place] [address] * (ABNORMAL) COMPREHENSIVE METABOLIC PANEL (10/03/2024 3:20 AM CDT) Pathologist [facility] SODIUM 133(L) 136 - 145 mmol/L 10/03/2024 6:[address] [facility] POTASSIUM 4.0 3.5 - 5.1 mmol/L 10/03/2024 6:21 AM [facility] CHLORIDE 96(L) 98 - 107 mmol/L 10/03/2024 6:[address] [facility] CO2 22 22 - 29 mmol/L 10/03/2024 6:[address] [facility] CALCIUM 8.6(L) 8.8 - 10.2 mg/dL 10/03/2024 6:[address] [facility] BUN 15 8 - 23 mg/dL 10/03/2024 6:[address] [facility] CREATININE 0.51 0.51 - 0.95 mg/dL 10/03/2024 6:[address] [facility] Comment:The GFR result is no t clinically significant on patients <18 or >70 years of age. GLUCOSE 144(H) 74 - 99 mg/dL 10/03/2024 6:[address] [facility] TOTAL PROTEIN 6.4 6.4 - 8.3 g/dL 10/03/2024 6:21 AM [facility] ALBUMIN 2.5(L) 3.5 - 5.2 g/dL 10/03/2024 6:[address] [facility] BILIRUBIN TOTAL 0.2 0.0 - 1.0 mg/dL 10/03/2024 6:21 AM [facility] ALKALINE PHOSPHATASE 70 35 - 104 U/L 10/03/2024 6:21 AM [facility] AST 43(H) 10 - 35 U/L 10/03/2024 6:21 AM [facility] ALT 36(H) <=35 U/L 10/03/2024 6:21 AM [facility] GFR >60 mL/min/1.7 3 sq meter 10/03/2024 6:[address] [facility] Comment:eGFR calculated with 2020 CKD-EPI equation. Vegetarian diet, extremely high or low muscle mass, and may affect results. Cystatin C with Glomerular Filtration Rate is a suitable alternative for these patients. ANION GAP 15 9 - 20 mmol/L 10/03/2024 6:[address] [facility] Blood Collection / Unknown 10/03/2024 3:20 AM CDT 10/03/2024 5:43 AM CDT Harry Reyes DO CHEMISTRY ORDERABLES Final R esult [facility] CLIA # [id number] [address] [place] [address] documented in this encounter Visit Diagnoses Not [...] documented as of this encounter Care Teams Infusion Nurse Relationship Specialty Start Date End Date Non-Staff, Physician NO ADDRESS ON FILE PCP - General 08/30/13 documented as of this encounter
--- OUTSIDE RECORDS SUMMARY | 2025-02-03 22:14 | XMS_ITS | Encounter Summary ---
Author Organization [facility] Address [address] [place] [address] Care Team Providers Care Peeled Potato Inspector Name Role Phone Non-Staff, Physician Primary Care Provider Unava ilable Encounter Details Date Type Department Care Team (Latest Contact Info) Description 04/18/2005 Outpatient Historical [facility] Family Medicine- [place] [address] [place] [address] Wanda Castro MD NO ADDRESS ON FILE HYPERTENSION NOS (Primary Dx) Social History Tobacco Use Types Packs/Day Years Used Date Smoking Tobacco: Never Assessed Comments Unknown Sex and Gender Information Value Date Recorded Sex Assigned at Not on file 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
--- OUTSIDE RECORDS SUMMARY | 2025-02-03 22:14 | XMS_ITS | Encounter Summary ---
Author Organization [facility] Address [address] [place] [address] Care Team Providers Care Welt Wheeler Name Role Phone Non-Staff, Physician Primary Care Provider Unava ilable Encounter Details Date Type Department Care Team (Latest Contact Info) Description 11/17/[address] 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
--- OUTSIDE RECORDS SUMMARY | 2025-02-03 22:14 | XMS_ITS | Encounter Summary ---
Author Organization [facility] Address 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 Gender Identity Not on file Sexual Orientation [...] CBC WITH DIFFERENTIAL (09/29/2024 4:20 AM CDT) [facility] WBC 7.4 4.8 - 10.8 K/uL 09/29/2024 5:57 AM CDT [facility] RBC 3.39(L) 4.20 - 5.40 M/uL 09/29/2024 5:57 AM CDT [facility] HEMOGLOBIN 9.4(L) 12.0 - 16.0 g/dL 09/29/2024 5:57 AM CDT [facility] HEMATOCRIT 30.5(L) 36.0 - 46.0 % 09/29/2024 5:57 AM CDT [facility] MCV 90.0 84.0 - 103.0 fL 09/29/2024 5:57 AM CDT [facility] MCH 27.7 27.0 - 34.0 pg 09/29/2024 5:57 AM CDT [facility] MCHC 30.8 30.0 - 35.0 g/dL 09/29/2024 5:57 AM CDT [facility] PLATELETS 417 140 - 440 K/uL 09/29/2024 5:57 [facility] MPV 10.3 8.9 - 12.8 fL 09/29/2024 5:57 AM [facility] RDW 18.8(H) 11.0 - 14.5 % 09/29/2024 5:57 AM [facility] RDW-STDEV 61.7(H) 37.0 - 54.0 fL 09/29/2024 5:57 AM CDT [facility] NEUTROPHILS 56 42 - 75 % 09/29/2024 5:57 AM CDT [facility] LYMPHOCYTES 27 24 - 44 % 09/29/2024 5:57 [facility] MONOCYTES 10 2 - 10 % 09/29/2024 5:57 AM CDT [facility] EOSINOPHILS 6 0 - 7 % 09/29/2024 5:57 AM CDT [facility] BASOPHILS 1 0 - 1 % 09/29/2024 5:57 AM CDT [facility] IMMATURE GRANULOCYTES 0 0 - 2 % 09/29/2024 5:57 AM CDT [facility] NEUTROPHIL ABSOLUTE 4.17 2.00 - 8.00 K/uL 09/29/2024 5:57 AM CDT [facility] LYMPHOCYTE ABSOLUTE 1.97 1.20 - 4.00 K/uL 09/29/2024 5:57 AM CDT [facility] MONOCYTE ABSOLUTE 0.71(H) 0.10 - 0.60 K/uL 09/29/2024 5:57 AM CDT [facility] EOSINOPHIL ABSOLUTE 0.45 0.00 - 0.70 K/uL 09/29/2024 5:57 AM CDT [facility] BASOPHILS ABSOLUTE 0.06 0.00 - 0.20 K/uL 09/29/2024 5:57 AM CDT [facility] IMMATURE GRANULOCYTES ABSOLUTE 0.03 0.00 - 0.10 K/uL 09/29/2024 5:57 AM CDT [facility] SMEAR REVIEWED: NA - Not Applicable 09/29/2024 5:57 AM T [facility] Blood Collection / Unknown 09/29/2024 4:20 AM CDT 09/29/2024 5:50 AM CDT Harry Reyes DO HEMATOLOGY ORDERABLES Final Result [facility] CLIA # [id number] [address] [place] [address] [place] [address] * (ABNORMAL) COMPREHENSIVE METABOLIC PANEL (09/29/2024 4:20 AM CDT) SODIUM 136 136 - 145 mmol/L 09/29/2024 6:22 AM CDT [facility] POTASSIUM 3.8 3.5 - 5.1 mmol/L 09/29/2024 6:22 AM [facility] CHLORIDE 99 98 - 107 mmol/L 09/29/2024 6:22 AM [facility] CO2 24 22 - 29 mmol/L 09/29/2024 6:22 AM [facility] CALCIUM 8.5(L) 8.8 - 10.2 mg/dL 09/29/2024 6:22 AM [facility] BUN 16 8 - 23 mg/dL 09/29/2024 6:22 AM [facility] CREATININE 0.41(L) 0.51 - 0.95 mg/dL 09/29/2024 6:22 AM [facility] Comment:The GFR result is no t clinically significant on patients <18 or >70 years of age. GLUCOSE 178(H) 74 - 99 mg/dL 09/29/2024 6:22 AM [facility] TOTAL PROTEIN 6.2(L) 6.4 - 8.3 g/dL 09/29/2024 6:22 AM [facility] ALBUMIN 3.0(L) 3.5 - 5.2 g/dL 09/29/2024 6:22 AM [facility] BILIRUBIN TOTAL 0.2 0.0 - 1.0 mg/dL 09/29/2024 6:22 AM [facility] ALKALINE PHOSPHATASE 71 35 - 104 U/L 09/29/2024 6:22 AM [facility] AST 32 10 - 35 U/L 09/29/2024 6:22 AM [facility] ALT 34 <=35 U/L 09/29/2024 6:22 AM [facility] GFR >60 mL/min/1. 73 sq meter 09/29/2024 6:22 AM [facility] Comment:eGFR calculated with 2020 CKD-EPI equation. Vegetarian diet, extremely high or low muscle mass, and may affect results. Cystatin C with Glomerular Filtration Rate is a suitable alternative for these patients. ANION GAP 13 9 - 20 mmol/L 09/29/2024 6:22 AM CDT [facility] Blood Collection / Unknown 09/29/2024 4:20 AM CDT 09/29/2024 5:50 AM CDT us Harry Reyes DO CHEMISTRY ORDERABLES Final R esult [facility] CLIA # [id number] [address] [address] [place] [address] documented in this encounter Visit Diagnoses Not [...] as of this encounter Care Teams Electronic Communications Technician Relationship Specialty Start Date End Date Non-Staff, Physician NO ADDRESS ON FILE PCP - General 08/30/13 documented as of this encounter
--- OUTSIDE RECORDS SUMMARY | 2025-02-03 22:14 | XMS_ITS | Encounter Summary ---
Author Organization [employer] Address 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 Co de Phone Number [facility] CLIA # [id number] [address] [address] * MAGNESIUM LEVEL (10/06/2024 5:22 PM CDT) MAGNESIUM 1.9 1.6 - 2.4 mg/dL 10/06/2024 6:34 PM CDT [facility] Blood Collection / Unknown 10/06/2024 5:22 PM CDT 10/06/2024 6:11 PM CDT External Provider [facility] CHEMISTRY ORDERABLES Final Result Performing Organization Address City/[facility] Co de Phone Number [facility] CLIA # [id number] [address] [place] [address] documented in this encounter Visit Diagnoses Not [...] documented as of this encounter Care Teams Net Manager Relationship Specialty Start Date End Date Non-Staff, Physician NO ADDRESS ON FILE PCP - General 08/30/13 documented as of this encounter
--- OUTSIDE RECORDS SUMMARY | 2025-02-03 22:14 | XMS_ITS | Encounter Summary ---
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 Gender Identity Not on file Sexual Orientation [...] POC GLUCOSE (12/23/2005 6:09 AM CDT) Pathologist [facility] GLUCOSE POC 189(H) 60 - 100 mg/dL INTERFACE SYSTEM 12/23/2005 6:09 AM CDT us Sesar Rayo MD POINT OF CARE TESTING Final Re sult INTERFACE SYSTEM Refer to clinic/hospital department * (ABNORMAL) CBC WITH DIFFERENTIAL (12/23/2005 5:05 AM CDT) Pathologist [facility] WBC 6.8 4.8 - 10.8 K/ul INTERFACE [...] ORDERABLES Final Re sult Performing Organization Address [facility] Phone Number INTERFACE SYSTEM Refer to clinic/hospital department * (ABNORMAL) POC GLUCOSE (12/22/2005 8:47 PM CDT) GLUCOSE POC 135(H) 60 - 100 mg/dL INTERFACE SYSTEM COMMENT POC Follow Protocol INTERFACE SYSTEM 12/22/2005 8:47 PM CDT Sesar Rayo MD POINT OF CARE TESTING Final Re sult Performing Organization Address [facility] Phone Number INTERFACE SYSTEM Refer to clinic/hospital department * (ABNORMAL) POC GLUCOSE (12/22/2005 5:53 PM CDT) GLUCOSE POC 101(H) 60 - 100 mg/dL INTERFACE SYSTEM 12/22/2005 5:53 PM CDT Sesar Rayo MD POINT OF CARE TESTING Final Re sult Performing Organization Address [facility] Phone Number INTERFACE SYSTEM Refer to clinic/hospital department * (ABNORMAL) POC GLUCOSE (12/22/2005 11:35 AM CDT) GLUCOSE POC 123(H) 60 - 100 mg/dL INTERFACE SYSTEM 12/22/2005 11:3 5 AM CDT Sesar Rayo MD POINT OF CARE TESTING Final Re sult Performing Organization Address [facility] Phone Number INTERFACE SYSTEM Refer to clinic/hospital department * (ABNORMAL) POC GLUCOSE (12/22/2005 5:27 AM CDT) GLUCOSE POC 121(H) 60 - 100 mg/dL INTERFACE SYSTEM 12/22/2005 5:27 AM CDT us Sesar Rayo MD POINT OF CARE TESTING Final Re sult INTERFACE SYSTEM Refer to clinic/hospital department * (ABNORMAL) CBC WITHOUT DIFFERENTIAL (12/22/2005 5:05 AM CDT) Pathologist [facility] WBC 8.4 4.8 - 10.8 K/ul INTERFACE [...] ORDERABLES Final Re sult Performing Organization Address [facility]/ZIP Co de Phone Number INTERFACE SYSTEM Refer to clinic/hospital department * (ABNORMAL) POC GLUCOSE (12/21/2005 8:48 PM CDT) GLUCOSE POC 136(H) 60 - 100 mg/dL INTERFACE SYSTEM 12/21/2005 8:48 PM CDT Sesar Rayo MD POINT OF CARE TESTING Final Re sult Performing Organization Address [facility] Phone Number INTERFACE SYSTEM Refer to clinic/hospital department * (ABNORMAL) POC GLUCOSE (12/21/2005 5:27 PM CDT) GLUCOSE POC 133(H) 60 - 100 mg/dL INTERFACE SYSTEM 12/21/2005 5:27 PM CDT Sesar Rayo MD POINT OF CARE TESTING Final Re sult Performing Organization Address [facility] Phone Number INTERFACE SYSTEM Refer to clinic/hospital department * (ABNORMAL) POC GLUCOSE (12/21/2005 11:04 AM CDT) GLUCOSE POC 121(H) 60 - 100 mg/dL INTERFACE SYSTEM 12/21/2005 11:0 4 AM CDT Sesar Rayo MD POINT OF CARE TESTING Final Re sult Performing Organization Address [facility] Phone Number INTERFACE SYSTEM Refer to clinic/hospital department * (ABNORMAL) POC GLUCOSE (12/21/2005 5:37 AM CDT) GLUCOSE POC 137(H) 60 - 100 mg/dL INTERFACE SYSTEM 12/21/2005 5:37 AM CDT Sesar Rayo MD POINT OF CARE TESTING Final Re sult Performing Organization Address [facility] Phone Number INTERFACE SYSTEM Refer to [...] ORDERABLES Final Re sult Performing Organization Address [facility] Phone Number INTERFACE SYSTEM Refer to clinic/hospital department * (ABNORMAL) POC GLUCOSE (12/20/2005 8:52 PM CDT) GLUCOSE POC 112(H) 60 - 100 mg/dL INTERFACE SYSTEM 12/20/2005 8:52 PM CDT Sesar Rayo MD POINT OF CARE TESTING Final Re sult Performing Organization Address [facility] Phone Number INTERFACE SYSTEM Refer to clinic/hospital department * (ABNORMAL) POC GLUCOSE (12/20/2005 4:56 PM CDT) GLUCOSE POC 121(H) 60 - 100 mg/dL INTERFACE SYSTEM 12/20/2005 4:56 PM CDT Sesar Rayo MD POINT OF CARE TESTING Final Re sult Performing Organization Address [facility] Phone Number INTERFACE SYSTEM Refer to clinic/hospital department * (ABNORMAL) POC GLUCOSE (12/20/2005 12:06 PM CDT) GLUCOSE POC 127(H) 60 - 100 mg/dL INTERFACE SYSTEM 12/20/2005 12:0 6 PM CDT Sesar Rayo MD POINT OF CARE TESTING Final Re sult Performing Organization Address [facility] Phone Number INTERFACE SYSTEM Refer to clinic/hospital department * (ABNORMAL) POC GLUCOSE (12/20/2005 6:26 AM CDT) GLUCOSE POC 144(H) 60 - 100 mg/dL INTERFACE SYSTEM 12/20/2005 6:26 AM CDT Sesar Rayo MD POINT OF CARE TESTING Final Re sult Performing Organization Address [facility] Phone Number INTERFACE SYSTEM Refer to [...] ORDERABLES Final Res ult Performing Organization Address [facility] Phone Number INTERFACE SYSTEM Refer to [...] ORDERABLES Final Re sult Performing Organization Address [facility] Phone Number INTERFACE SYSTEM Refer to clinic/hospital department * (ABNORMAL) POC GLUCOSE (12/19/2005 8:42 PM CDT) GLUCOSE POC 123(H) 60 - 100 mg/dL INTERFACE SYSTEM 12/19/2005 8:42 PM CDT Sesar Rayo MD POINT OF CARE TESTING Final Re sult Performing Organization Address [facility] de Phone Number INTERFACE SYSTEM Refer to clinic/hospital department * (ABNORMAL) POC GLUCOSE (12/19/2005 5:01 PM CDT) GLUCOSE POC 134(H) 60 - 100 mg/dL INTERFACE SYSTEM 12/19/2005 5:01 PM CDT Sesar Rayo MD POINT OF CARE TESTING Final Re sult Performing Organization Address [facility] de Phone Number INTERFACE SYSTEM Refer to clinic/hospital department * (ABNORMAL) POC GLUCOSE (12/19/2005 12:04 PM CDT) GLUCOSE POC 148(H) 60 - 100 mg/dL INTERFACE SYSTEM 12/19/2005 12:0 4 PM CDT Sesar Rayo MD POINT OF CARE TESTING Final Re sult Performing Organization Address [facility] de Phone Number INTERFACE SYSTEM Refer to clinic/hospital department * (ABNORMAL) POC GLUCOSE (12/19/2005 5:49 AM CDT) GLUCOSE POC 196(H) 60 - 100 mg/dL INTERFACE SYSTEM 12/19/2005 5:49 AM CDT Sesar Rayo MD POINT OF CARE TESTING Final Re sult Performing Organization Address [facility] Phone Number INTERFACE SYSTEM Refer to [...] ORDERABLES Final Re sult Performing Organization Address [facility] Phone Number INTERFACE SYSTEM Refer to [...] ORDERABLES Final Res ult Performing Organization Address [facility] Phone Number INTERFACE SYSTEM Refer to clinic/hospital department * (ABNORMAL) POC GLUCOSE (12/18/2005 9:27 PM CDT) GLUCOSE POC 230(H) 60 - 100 mg/dL INTERFACE SYSTEM 12/18/2005 9:27 PM CDT Sesar Rayo MD POINT OF CARE TESTING Final Re sult Performing Organization Address [facility] Phone Number INTERFACE SYSTEM Refer to clinic/hospital department * (ABNORMAL) POC GLUCOSE (12/18/2005 5:21 PM CDT) GLUCOSE POC 194(H) 60 - 100 mg/dL INTERFACE SYSTEM 12/18/2005 5:21 PM CDT us Sesar Rayo MD POINT OF CARE TESTING Final Jodee pollock Performing Organization Address [facility] Phone Number INTERFACE SYSTEM Refer to clinic/hospital department * (ABNORMAL) POC GLUCOSE (12/18/2005 12:31 PM CDT) GLUCOSE POC 137(H) 60 - 100 mg/dL INTERFACE SYSTEM 12/18/2005 12:3 1 PM CDT us Sesar Rayo MD POINT OF CARE TESTING eGrman pollock Performing Organization Address [facility] Phone Number INTERFACE SYSTEM Refer to clinic/hospital department documented in this encounter Visit Diagnoses Diagnosis Localized osteoarthrosis not specified whether primary or secondary, lower leg- Primary documented in this encounter Care Teams Supervisor Brake Repair Relationship Specialty Start Date End Date Non-Staff, Physician NO ADDRESS ON FILE PCP - General 08/30/13 documented as of this encounter
--- OUTSIDE RECORDS SUMMARY | 2025-02-03 22:14 | XMS_ITS | Encounter Summary ---
Author Organization [facility] Address [address] [place] [address] Care Team Providers Care Letter Stamping Machine Operator Name Role Phone Non-Staff, Physician Primary Care Provider Unava ilable Encounter Details Date Type Department Care Team (Latest Contact Info) Description 09/07/2003 Outpatient Historical [facility] General Surgery [address] [address] [address] [place] [phone] [place] [address] [facility] [address] [place] [address] SURGERY FOLLOWUP, UNSPEC (Primary Dx); CHOLELITH W ACUTE GB DIS-NO OBSTR; Umbilical hernia Social History Tobacco Use Types Packs/Day Years Used Date Smoking Tobacco: Never Assessed Comments Unknown Sex and Gender Information Value Date Recorded Sex Assigned at Not on file 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 Gender Identity Not on file Sexual Orientation Not on file documented as of this encounter Plan of Treatment Not on file documented as of this encounter Visit Diagnoses Diagnosis Follow-up examination, following unspecified surgery- Primary Calculus of gallbladder with acute cholecystitis, without mention of obstruction Umbilical hernia Umbilical hernia without mention of obstruction or gangrene documented in this encounter Care Teams Letter Stamping Machine Operator Relationship Specialty Start Date End Date Non-Staff, Physician NO ADDRESS ON FILE PCP - General 08/30/13 documented as of this encounter
--- OUTSIDE RECORDS SUMMARY | 2025-02-03 22:14 | XMS_ITS | Encounter Summary ---
Author Organization [employer] Address 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 Gender Identity Not on file Sexual [...] CBC WITH DIFFERENTIAL (10/06/2024 4:15 AM CDT) [facility] WBC 9.8 4.8 - 10.8 K/uL 10/06/2024 6:27 AM CDT [facility] RBC 3.88(L) 4.20 - 5.40 M/uL 10/06/2024 6:27 AM CDT [facility] HEMOGLOBIN 10.6(L) 12.0 - 16.0 g/dL 10/06/2024 6:27 AM T [facility] HEMATOCRIT 34.9(L) 36.0 - 46.0 % 10/06/2024 6:27 AM CDT [facility] MCV 89.9 84.0 - 103.0 fL 10/06/2024 6:27 AM [facility] MCH 27.3 27.0 - 34.0 pg 10/06/2024 6:27 AM [facility] MCHC 30.4 30.0 - 35.0 g/dL 10/06/2024 6:27 AM T [facility] PLATELETS 426 140 - 440 K/uL 10/06/2024 6:27 AM [facility] MPV 10.2 8.9 - 12.8 fL 10/06/2024 6:27 AM [facility] RDW 16.8(H) 11.0 - 14.5 % 10/06/2024 6:27 AM [facility] RDW-STDEV 55.1(H) 37.0 - 54.0 fL 10/06/2024 6:27 AM [facility] NEUTROPHILS 57 42 - 75 % 10/06/2024 6:27 AM [facility] LYMPHOCYTES 27 24 - 44 % 10/06/2024 6:27 AM [facility] MONOCYTES 10 2 - 10 % 10/06/2024 6:27 AM [facility] EOSINOPHILS 5 0 - 7 % 10/06/2024 6:27 AM CDT [facility] BASOPHILS 1 0 - 1 % 10/06/2024 6:27 AM CDT [facility] IMMATURE GRANULOCYTES 1 0 - 2 % 10/06/2024 6:27 AM CDT [facility] NEUTROPHIL ABSOLUTE 5.55 2.00 - 8.00 K/uL 10/06/2024 6:27 AM CDT [facility] LYMPHOCYTE ABSOLUTE 2.61 1.20 - 4.00 K/uL 10/06/2024 6:27 AM CDT [facility] MONOCYTE ABSOLUTE 0.96(H) 0.10 - 0.60 K/uL 10/06/2024 6:27 AM CDT [facility] EOSINOPHIL ABSOLUTE 0.51 0.00 - 0.70 K/uL 10/06/2024 6:27 AM CDT [facility] BASOPHILS ABSOLUTE 0.06 0.00 - 0.20 K/uL 10/06/2024 6:27 AM CDT [facility] IMMATURE GRANULOCYTES ABSOLUTE 0.08 0.00 - 0.10 K/uL 10/06/2024 6:27 AM T [facility] SMEAR REVIEWED: NA - Not Applicable 10/06/2024 6:27 AM T [facility] Blood Collection / Unknown 10/06/2024 4:15 AM CDT 10/06/2024 6:10 AM CDT Harry Reyes DO HEMATOLOGY ORDERABLES Final Result [facility] CLIA # [id number] [address] [place] [address] [place] [address] * (ABNORMAL) COMPREHENSIVE METABOLIC PANEL (10/06/2024 4:15 AM CDT) SODIUM 136 136 - 145 mmol/L 10/06/2024 7:01 AM T [facility] POTASSIUM 3.7 3.5 - 5.1 mmol/L 10/06/2024 7:01 AM [facility] CHLORIDE 99 98 - 107 mmol/L 10/06/2024 7:01 AM [facility] CO2 25 22 - 29 mmol/L 10/06/2024 7:01 AM [facility] CALCIUM 8.8 8.8 - 10.2 mg/dL 10/06/2024 7:01 AM [facility] BUN 11 8 - 23 mg/dL 10/06/2024 7:01 AM [facility] CREATININE 0.49(L) 0.51 - 0.95 mg/dL 10/06/2024 7:01 AM [facility] Comment:The GFR result is no t clinically significant on patients <18 or >70 years of age. GLUCOSE 142(H) 74 - 99 mg/dL 10/06/2024 7:01 AM [facility] TOTAL PROTEIN 6.6 6.4 - 8.3 g/dL 10/06/2024 7:01 AM [facility] ALBUMIN 2.7(L) 3.5 - 5.2 g/dL 10/06/2024 7:01 AM [facility] BILIRUBIN TOTAL 0.2 0.0 - 1.0 mg/dL 10/06/2024 7:01 AM [facility] ALKALINE PHOSPHATASE 80 35 - 104 U/L 10/06/2024 7:01 AM [facility] AST 31 10 - 35 U/L 10/06/2024 7:01 AM [facility] ALT 38(H) <=35 U/L 10/06/2024 7:01 AM [facility] GFR >60 mL/min/1. 73 sq meter 10/06/2024 7:01 AM [facility] Comment:eGFR calculated with 2020 CKD-EPI equation. Vegetarian diet, extremely high or low muscle mass, and may affect results. Cystatin C with Glomerular Filtration Rate is a suitable alternative for these patients. ANION GAP 12 9 - 20 mmol/L 10/06/2024 7:01 AM CDT [facility] Blood Collection / Unknown 10/06/2024 4:15 AM CDT 10/06/2024 6:09 AM CDT Harry Reyes DO CHEMISTRY ORDERABLES Final R esult [facility] CLIA # [id number] [address] [place] [address] documented in this encounter Visit Diagnoses Not [...] documented as of this encounter Care Teams Operator Engineer Relationship Specialty Start Date End Date Non-Staff, Physician NO ADDRESS ON FILE PCP - General 08/30/13 documented as of this encounter
--- OUTSIDE RECORDS SUMMARY | 2025-02-03 22:14 | XMS_ITS | Encounter Summary ---
Author Organization [email or web address] [facility] Address [address] [place] [address] Care Team Providers Care Senior Boiler Operator Name Role Phone Non-Staff, Physician Primary Care Provider Unava ilable Encounter Details Date Type Department Care Team (Late st [facility] Info) Description 08/30/2003 Outpatient Historical 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
--- OUTSIDE RECORDS SUMMARY | 2025-02-03 22:14 | XMS_ITS | Encounter Summary ---
Author Organization [employer] Address 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 Increased 09/25/2024 9:34 AM CDT [facility] ANISOCYTOSIS 3+ /hpf 09/25/2024 9:34 AM CDT [facility] POLYCHROMASIA 1+ /hpf 09/25/2024 9:34 AM CDT [facility] Blood Collection / Unknown 09/25/2024 3:00 AM CDT 09/25/2024 8:55 AM CDT External Provider [facility] HEMATOLOGY ORDERABLES COM Final Result [facility] CLIA # [id number] [address] [place] [address] * (ABNORMAL) CBC WITH DIFFERENTIAL (09/25/2024 3:00 AM CDT) Pathologist [facility] WBC 8.3 4.8 - 10.8 K/uL 09/25/2024 9:34 AM CDT [facility] RBC 3.07(L) 4.20 - 5.40 M/uL 09/25/2024 9:34 AM CDT [facility] HEMOGLOBIN 8.7(L) 12.0 - 16.0 g/dL 09/25/2024 9:34 AM CDT [facility] HEMATOCRIT 28.5(L) 36.0 - 46.0 % 09/25/2024 9:34 AM CDT [facility] MCV 92.8 84.0 - 103.0 fL 09/25/2024 9:34 AM CDT [facility] MCH 28.3 27.0 - 34.0 pg 09/25/2024 9:34 AM CDT [facility] MCHC 30.5 30.0 - 35.0 g/dL 09/25/2024 9:34 AM [facility] PLATELETS 483(H) 140 - 440 K/uL 09/25/2024 9:34 AM [facility] MPV 10.6 8.9 - 12.8 fL 09/25/2024 9:34 AM [facility] RDW 20.1(H) 11.0 - 14.5 % 09/25/2024 9:34 AM [facility] RDW-STDEV 68.3(H) 37.0 - 54.0 fL 09/25/2024 9:34 AM [facility] NEUTROPHILS 62 42 - 75 % 09/25/2024 9:34 AM [facility] LYMPHOCYTES 22(L) 24 - 44 % 09/25/2024 9:34 AM [facility] MONOCYTES 9 2 - 10 % 09/25/2024 9:34 AM [facility] EOSINOPHILS 5 0 - 7 % 09/25/2024 9:34 AM [facility] BASOPHILS 1 0 - 1 % 09/25/2024 9:34 AM [facility] IMMATURE GRANULOCYTES 1 0 - 2 % 09/25/2024 9:34 AM [facility] NEUTROPHIL ABSOLUTE 5.18 2.00 - 8.00 K/uL 09/25/2024 9:34 AM [facility] LYMPHOCYTE ABSOLUTE 1.84 1.20 - 4.00 K/uL 09/25/2024 9:34 AM [facility] MONOCYTE ABSOLUTE 0.78(H) 0.10 - 0.60 K/uL 09/25/2024 9:34 AM [facility] EOSINOPHIL ABSOLUTE 0.39 0.00 - 0.70 K/uL 09/25/2024 9:34 AM [facility] BASOPHILS ABSOLUTE 0.06 0.00 - 0.20 K/uL 09/25/2024 9:34 AM [facility] IMMATURE GRANULOCYTES ABSOLUTE 0.07 0.00 - 0.10 K/uL 09/25/2024 9:34 AM [facility] SMEAR REVIEWED: SR - See Smear Review on Manual Diff. 09/25/2024 9:34 AM CDT [facility] Blood Collection / Unknown 09/25/2024 3:00 AM CDT 09/25/2024 8:55 AM CDT us External Provider [facility] HEMATOLOGY ORDERABLES Christiana l Result [facility] CLIA # [id number] [address] [address] [place] [address] documented in this encounter Visit Diagnoses Not [...] documented as of this encounter Care Teams Transcription Manager Relationship Specialty Start Date End Date Non-Staff, Physician NO ADDRESS ON FILE PCP - General 08/30/13 documented as of this encounter
--- OUTSIDE RECORDS SUMMARY | 2025-02-03 22:14 | XMS_ITS | Encounter Summary ---
Author Organization [employer] Address 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 Gender Identity Not on file Sexual [...] - 145 mmol/L 10/20/2024 6:46 AM T [facility] POTASSIUM 3.3(L) 3.5 - 5.1 mmol/L 10/20/2024 6:46 AM [facility] CHLORIDE 108(H) 98 - 107 mmol/L 10/20/2024 6:46 AM [facility] CO2 17(L) 22 - 29 mmol/L 10/20/2024 6:46 AM [facility] CALCIUM 8.2(L) 8.8 - 10.2 mg/dL 10/20/2024 6:46 AM [facility] BUN 3(L) 8 - 23 mg/dL 10/20/2024 6:46 AM [facility] CREATININE 0.50(L) 0.51 - 0.95 mg/dL 10/20/2024 6:46 AM [facility] Comment:The GFR result is no t clinically significant on patients <18 or >70 years of age. GLUCOSE 115(H) 74 - 99 mg/dL 10/20/2024 6:46 AM [facility] TOTAL PROTEIN 5.5(L) 6.4 - 8.3 g/dL 10/20/2024 6:46 AM [facility] ALBUMIN 2.9(L) 3.5 - 5.2 g/dL 10/20/2024 6:46 AM [facility] BILIRUBIN TOTAL 0.2 0.0 - 1.0 mg/dL 10/20/2024 6:46 AM [facility] ALKALINE PHOSPHATASE 58 35 - 104 U/L 10/20/2024 6:46 AM [facility] AST 16 10 - 35 U/L 10/20/2024 6:46 AM [facility] ALT 13 <=35 U/L 10/20/2024 6:46 AM CDT [facility] GFR >60 mL/min/1. 73 sq meter 10/20/2024 6:46 AM CDT [facility] Comment:eGFR calculated with 2020 CKD-EPI equation. Vegetarian diet, extremely high or low muscle mass, and may affect results. Cystatin C with Glomerular Filtration Rate is a suitable alternative for these patients. ANION GAP 13 9 - 20 mmol/L 10/20/2024 6:46 AM T [facility] Blood Collection / Unknown 10/20/2024 3:35 AM CDT 10/20/2024 6:09 AM CDT us External Provider [facility] CHEMISTRY ORDERABLES Final Result Performing Organization Address City/State/[facility] Co de Phone Number [facility] CLIA # [id number] [address] [place] [address] * (ABNORMAL) CBC WITH DIFFERENTIAL (10/20/2024 3:35 AM CDT) WBC 4.7(L) 4.8 - 10.8 K/uL 10/20/2024 6:17 AM CDT [facility] RBC 3.82(L) 4.20 - 5.40 M/uL 10/20/2024 6:17 AM T [facility] HEMOGLOBIN 10.4(L) 12.0 - 16.0 g/dL 10/20/2024 6:17 AM T [facility] HEMATOCRIT 32.9(L) 36.0 - 46.0 % 10/20/2024 6:17 AM CDT [facility] MCV 86.1 84.0 - 103.0 fL 10/20/2024 6:17 AM CDT [facility] MCH 27.2 27.0 - 34.0 pg 10/20/2024 6:17 AM CDT [facility] MCHC 31.6 30.0 - 35.0 g/dL 10/20/2024 6:17 AM CDT [facility] PLATELETS 301 140 - 440 K/uL 10/20/2024 6:17 AM ON LICENSE OF [facility] [employer] [facility] MPV 10.2 8.9 - 12.8 fL 10/20/2024 6:17 AM ON LICENSE OF [facility] [employer] [facility] RDW 15.8(H) 11.0 - 14.5 % 10/20/2024 6:17 AM ON LICENSE OF [facility] [employer] [facility] RDW-STDEV 49.5 37.0 - 54.0 fL 10/20/2024 6:17 AM ON LICENSE OF [facility] [employer] [facility] NEUTROPHILS 43 42 - 75 % 10/20/2024 6:17 AM ON LICENSE OF [facility] [employer] [facility] LYMPHOCYTES 39 24 - 44 % 10/20/2024 6:17 AM ON LICENSE OF [facility] [facility] MONOCYTES 11(H) 2 - 10 % 10/20/2024 6:17 AM ON LICENSE OF [facility] [facility] EOSINOPHILS 6 0 - 7 % 10/20/2024 6:17 AM ON LICENSE OF [facility] [employer] [facility] BASOPHILS 1 0 - 1 % 10/20/2024 6:17 AM [facility] IMMATURE GRANULOCYTES 0 0 - 2 % 10/20/2024 6:17 AM [facility] NEUTROPHIL ABSOLUTE 2.01 2.00 - 8.00 K/uL 10/20/2024 6:17 AM ON LICENSE OF [facility] [employer] [facility] LYMPHOCYTE ABSOLUTE 1.85 1.20 - 4.00 K/uL 10/20/2024 6:17 AM [facility] MONOCYTE ABSOLUTE 0.52 0.10 - 0.60 K/uL 10/20/2024 6:17 AM ON LICENSE OF [facility] [employer] [facility] EOSINOPHIL ABSOLUTE 0.28 0.00 - 0.70 K/uL 10/20/2024 6:17 AM ON LICENSE OF [facility] [employer] [facility] BASOPHILS ABSOLUTE 0.06 0.00 - 0.20 K/uL 10/20/2024 6:17 AM ON LICENSE OF [facility] [employer] [facility] IMMATURE GRANULOCYTES ABSOLUTE 0.01 0.00 - 0.10 K/uL 10/20/2024 6:17 AM ON LICENSE OF [facility] [employer] [facility] SMEAR REVIEWED: NA - Not Applicable 10/20/2024 6:17 AM CDT [facility] [employer] [facility] Blood Collection / Unknown 10/20/2024 3:35 AM CDT 10/20/2024 6:09 AM CDT us External Provider [facility] HEMATOLOGY ORDERABLES Christiana l Result [facility] CLIA # [id number] [address] [address] [place] [address] documented in this encounter Visit Diagnoses Not [...] as of this encounter Care Teams Transformer Inspector Relationship Specialty Start Date End Date Non-Staff, Physician NO ADDRESS ON FILE PCP - General 08/30/13 documented as of this encounter
--- OUTSIDE RECORDS SUMMARY | 2025-02-03 22:14 | XMS_ITS | Encounter Summary ---
Author Organization [facility] Address [address] [place] [address] Care Team Providers Care Brake Lining Maker Name Role Phone Non-Staff, Physician Primary Care Provider Unava ilable Encounter Details Date Type Department Care Team (Latest Contact Info) Description 05/26/[address] 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
--- OUTSIDE RECORDS SUMMARY | 2025-02-03 22:14 | XMS_ITS | Encounter Summary ---
Author Organization [facility] Address [address] [place] [address] Care Team Providers Care Aircraft Steel Fabricator Name Role Phone Non-Staff, Physician Primary Care Provider Unava ilable Encounter Details Date Type Department Care Team (Latest Contact Info) Description 11/25/2005 Outpatient Historical [facility] Orthopedics- 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
--- OUTSIDE RECORDS SUMMARY | 2025-02-03 22:14 | XMS_ITS | Encounter Summary ---
Author Organization [facility] Address [address] [place] [address] Care Team Providers Care Security Controls Assessor Name Role Phone Non-Staff, Physician Primary Care Provider Unava ilable Encounter Details Date Type Department Care Team (Latest Contact Info) Description 02/17/2003 Outpatient Historical [facility] Family Medicine- [address] [place] [address] Wanda Castro MD NO ADDRESS ON FILE Plantar fibromatosis (Primary Dx) Social History Tobacco Use Types Packs/Day Years Used Date Smoking Tobacco: Never Assessed Comments Unknown Sex and Gender Information Value Date Recorded Sex Assigned at Not on file 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
--- OUTSIDE RECORDS SUMMARY | 2025-02-03 22:14 | XMS_ITS | Encounter Summary ---
Author Organization [employer] Address 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
--- OUTSIDE RECORDS SUMMARY | 2025-02-03 22:14 | XMS_ITS | Encounter Summary ---
Author Organization [facility] Address [address] [place] [address] Care Team Providers Care Excel Vba Developer Name Role Phone Non-Staff, Physician Primary Care Provider Unava ilable Encounter Details Date Type Department Care Team (Latest Contact Info) Description 09/30/2002 Outpatient Historical [facility] Family Medicine- [place] [address] [place] [address] Wanda Castro MD NO ADDRESS ON FILE MIGRAINE NOS W/O MENTN INTRACTABLE (Primary Dx) Social History Tobacco Use Types Packs/Day Years Used Date Smoking Tobacco: Never Assessed Comments Unknown Sex and Gender Information Value Date Recorded Sex Assigned at Not on file 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
--- OUTSIDE RECORDS SUMMARY | 2025-02-03 22:14 | XMS_ITS | Encounter Summary ---
Author Organization [employer] Address 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 POTASSIUM 3.3(L) 3.5 - 5.1 mmol/L 10/13/2024 6:[address] [facility] CHLORIDE 98 98 - 107 mmol/L 10/13/2024 6:[address] [facility] CO2 22 22 - 29 mmol/L 10/13/2024 6:50 AM [facility] CALCIUM 9.2 8.8 - 10.2 mg/dL 10/13/2024 6:50 AM [facility] BUN 8 8 - 23 mg/dL 10/13/2024 6:50 AM [facility] CREATININE 0.46(L) 0.51 - 0.95 mg/dL 10/13/2024 6:50 AM [facility] Comment:The GFR result is no t clinically significant on patients <18 or >70 years of age. GLUCOSE 94 74 - 99 mg/dL 10/13/2024 6:50 AM [facility] TOTAL PROTEIN 6.9 6.4 - 8.3 g/dL 10/13/2024 6:50 AM [facility] ALBUMIN 3.2(L) 3.5 - 5.2 g/dL 10/13/2024 6:50 AM [facility] BILIRUBIN TOTAL 0.3 0.0 - 1.0 mg/dL 10/13/2024 6:50 AM [facility] ALKALINE PHOSPHATASE 86 35 - 104 U/L 10/13/2024 6:50 AM [facility] AST 26 10 - 35 U/L 10/13/2024 6:50 AM [facility] ALT 33 <=35 U/L 10/13/2024 6:50 AM [facility] GFR >60 mL/min/1. 73 sq meter 10/13/2024 6:[address] [facility] Comment:eGFR calculated with 2020 CKD-EPI equation. Vegetarian diet, extremely high or low muscle mass, and may affect results. Cystatin C with Glomerular Filtration Rate is a suitable alternative for these patients. ANION GAP 16 9 - 20 mmol/L 10/13/2024 6:[address] [facility] Blood Collection / Unknown 10/13/2024 2:41 AM CDT 10/13/2024 6:05 AM CDT us External Provider [facility] CHEMISTRY ORDERABLES Final Result [facility] CLIA # [id number] [facility] access [facility] [address] * (ABNORMAL) CBC WITH DIFFERENTIAL (10/13/2024 2:41 AM CDT) WBC 10.1 4.8 - 10.8 K/uL 10/13/2024 6:[address] [facility] RBC 4.31 4.20 - 5.40 M/uL 10/13/2024 6:[address] [facility] HEMOGLOBIN 11.7(L) 12.0 - 16.0 g/dL 10/13/2024 6:[address] [facility] HEMATOCRIT 36.7 36.0 - 46.0 % 10/13/2024 6:[address] [facility] MCV 85.2 84.0 - 103.0 fL 10/13/2024 6:[address] [facility] MCH 27.1 27.0 - 34.0 pg 10/13/2024 6:[address] [facility] MCHC 31.9 30.0 - 35.0 g/dL 10/13/2024 6:[address] [facility] PLATELETS 424 140 - 440 K/uL 10/13/2024 6:13 AM [facility] MPV 9.9 8.9 - 12.8 fL 10/13/2024 6:13 AM [facility] RDW 15.6(H) 11.0 - 14.5 % 10/13/2024 6:13 AM [facility] RDW-STDEV 48.0 37.0 - 54.0 fL 10/13/2024 6:13 AM [facility] NEUTROPHILS 67 42 - 75 % 10/13/2024 6:13 AM [facility] LYMPHOCYTES 20(L) 24 - 44 % 10/13/2024 6:13 AM [facility] MONOCYTES 9 2 - 10 % 10/13/2024 6:13 AM [facility] EOSINOPHILS 3 0 - 7 % 10/13/2024 6:13 AM [facility] BASOPHILS 1 0 - 1 % 10/13/2024 6:13 AM [facility] IMMATURE GRANULOCYTES 1 0 - 2 % 10/13/2024 6:13 AM [facility] NEUTROPHIL ABSOLUTE 6.79 2.00 - 8.00 K/uL 10/13/2024 6:13 AM [facility] LYMPHOCYTE ABSOLUTE 2.06 1.20 - 4.00 K/uL 10/13/2024 6:13 AM [facility] MONOCYTE ABSOLUTE 0.89(H) 0.10 - 0.60 K/uL 10/13/2024 6:13 AM [facility] EOSINOPHIL ABSOLUTE 0.28 0.00 - 0.70 K/uL 10/13/2024 6:13 AM [facility] BASOPHILS ABSOLUTE 0.06 0.00 - 0.20 K/uL 10/13/2024 6:13 AM [facility] IMMATURE GRANULOCYTES ABSOLUTE 0.06 0.00 - 0.10 K/uL 10/13/2024 6:13 AM [facility] SMEAR REVIEWED: NA - Not Applicable 10/13/2024 6:13 AM [facility] Blood Collection / Unknown 10/13/2024 2:41 AM CDT 10/13/2024 6:05 AM CDT External Provider [facility] HEMATOLOGY ORDERABLES Christiana hernandez Result [facility] CLIA # [id number] [address] [place] [address] documented in this encounter Visit Diagnoses Not [...] documented as of this encounter Care Teams Recruitment Internship Relationship Specialty Start Date End Date Non-Staff, Physician NO ADDRESS ON FILE PCP - General 08/30/13 documented as of this encounter
--- OUTSIDE RECORDS SUMMARY | 2025-02-03 22:14 | XMS_ITS | Encounter Summary ---
Author Organization [employer] Address 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 POTASSIUM 4.2 3.5 - 5.1 mmol/L 10/21/2024 4:52 PM T [facility] Comment:Slightly hemolyzed. Result may be falsely elevated. CHLORIDE 116(H) 98 - 107 mmol/L 10/21/2024 4:52 PM CDT [facility] CO2 16(L) 22 - 29 mmol/L 10/21/2024 4:52 PM CDT [facility] CALCIUM 7.1(L) 8.8 - 10.2 mg/dL 10/21/2024 4:52 PM T [facility] BUN 1(L) 8 - 23 mg/dL 10/21/2024 4:52 PM T [facility] CREATININE 0.44(L) 0.51 - 0.95 mg/dL 10/21/2024 4:52 PM T [facility] Comment:The GFR result is no t clinically significant on patients <18 or >70 years of age. GLUCOSE 100(H) 74 - 99 mg/dL 10/21/2024 4:52 PM T [facility] GFR >60 mL/min/1. 73 sq meter 10/21/2024 4:52 PM T [facility] Comment:eGFR calculated with 2020 CKD-EPI equation. Vegetarian diet, extremely high or low muscle mass, and may affect results. Cystatin C with Glomerular Filtration Rate is a suitable alternative for these patients. ANION GAP 8(L) 9 - 20 mmol/L 10/21/2024 4:52 PM T [facility] Blood Collection / Unknown 10/21/2024 2:15 PM CDT 10/21/2024 4:19 PM CDT us External Provider [facility] CHEMISTRY ORDERABLES Final Result [facility] CLIA # [id number] [address] [facility] [place] [address] documented in this encounter Visit Diagnoses Not [...] documented as of this encounter Care Teams Burrer Machine Relationship Specialty Start Date End Date Non-Staff, Physician NO ADDRESS ON FILE PCP - General 08/30/13 documented as of this encounter
--- OUTSIDE RECORDS SUMMARY | 2025-02-03 22:14 | XMS_ITS | Encounter Summary ---
Author Organization [employer] Address 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 Gender Identity Not on file Sexual Orientation [...] - 145 mmol/L 10/15/2024 6:18 AM CDT [facility] POTASSIUM 3.8 3.5 - 5.1 mmol/L 10/15/2024 6:18 AM CDT [facility] CHLORIDE 96(L) 98 - 107 mmol/L 10/15/2024 6:18 AM CDT [facility] CO2 19(L) 22 - 29 mmol/L 10/15/2024 6:18 AM CDT [facility] CALCIUM 9.2 8.8 - 10.2 mg/dL 10/15/2024 6:18 AM CDT [facility] BUN 5(L) 8 - 23 mg/dL 10/15/2024 6:18 AM T [facility] CREATININE 0.54 0.51 - 0.95 mg/dL 10/15/2024 6:18 AM T [facility] Comment:The GFR result is no t clinically significant on patients <18 or >70 years of age. GLUCOSE 96 74 - 99 mg/dL 10/15/2024 6:18 AM T [facility] GFR >60 mL/min/1.7 3 sq meter 10/15/2024 6:18 AM T [facility] Comment:eGFR calculated with 2020 CKD-EPI equation. Vegetarian diet, extremely high or low muscle mass, and may affect results. Cystatin C with Glomerular Filtration Rate is a suitable alternative for these patients. ANION GAP 19 9 - 20 mmol/L 10/15/2024 6:18 AM T [facility] Blood Collection / Unknown 10/15/2024 3:30 AM CDT 10/15/2024 5:21 AM CDT us Harry Reyes DO CHEMISTRY ORDERABLES Final R esult [facility] CLIA # [id number] [address] [facility] [place] [address] documented in this encounter Visit Diagnoses Not [...] documented as of this encounter Care Teams Forecast Analyst Relationship Specialty Start Date End Date Non-Staff, Physician NO ADDRESS ON FILE PCP - General 08/30/13 documented as of this encounter
--- OUTSIDE RECORDS SUMMARY | 2025-02-03 22:14 | XMS_ITS | Encounter Summary ---
Author Organization [facility] Address [address] [place] [address] Care Team Providers Care Contracts Intern Name Role Phone Non-Staff, Physician Primary Care Provider Unava ilable Encounter Details Date Type Department Care Team (Latest Contact Info) Description 01/13/2006 Outpatient Historical [facility] Orthopedics- 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
--- OUTSIDE RECORDS SUMMARY | 2025-02-03 22:14 | XMS_ITS | Encounter Summary ---
Author Organization [facility] Address [address] [place] [address] Care Team Providers Care Stock Wetter Name Role Phone Non-Staff, Physician Primary Care Provider Unava ilable Encounter Details Date Type Department Care Team (Latest Contact Info) Description 12/16/2002 Outpatient Historical [facility] Family Medicine- [address] [place] [address] Wanda Castro MD NO ADDRESS ON FILE Plantar fibromatosis (Primary Dx); HYPERTENSION NOS Social History Tobacco Use Types Packs/Day Years Used Date Smoking Tobacco: Never Assessed Comments Unknown Sex and Gender Information Value Date Recorded Sex Assigned at Not on file 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
--- OUTSIDE RECORDS SUMMARY | 2025-02-03 22:14 | XMS_ITS | Encounter Summary ---
Author Organization [facility] Address [address] [place] [address] Care Team Providers Care Director Human Services Name Role Phone Non-Staff, Physician Primary Care Provider Unava ilable Encounter Details Date Type Department Care Team (Latest Contact Info) Description 09/29/2003 Outpatient Historical [facility] Family Medicine- [address] [place] [phone] Wanda Castro MD NO ADDRESS ON FILE HYPERTENSION NOS (Primary Dx); BRIEF DEPRESSIVE REACT; Plantar fibromatosis Social History Tobacco Use Types Packs/Day Years Used Date Smoking Tobacco: Never Assessed Comments Unknown Sex and Gender Information Value Date Recorded Sex Assigned at Not on file 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
--- OUTSIDE RECORDS SUMMARY | 2025-02-03 22:14 | XMS_ITS | Encounter Summary ---
Author Organization [facility] Address [address] [place] [address] Care Team Providers Care Costume Cutter Name Role Phone Non-Staff, Physician Primary Care Provider Unava ilable Encounter Details Date Type Department Care Team (Latest Contact Info) Description 12/02/2005 Outpatient Historical [facility] PreAdmission Center [address] [place] [phone] Sesar Rayo MD NO ADDRESS ON FILE Pre-Operative Cardiovascular Examination (Primary Dx) Social History Tobacco Use Types Packs/Day Years Used Date Smoking Tobacco: Never Assessed Comments Unknown Sex and Gender Information Value Date Recorded Sex Assigned at Not on file 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 Gender Identity Not on file Sexual Orientation [...] URINE ORDERABLES Final Result Performing Organization Address [facility] Phone Number INTERFACE SYSTEM [...] URINE ORDERABLES Final Result Performing Organization Address [facility] Phone Number INTERFACE SYSTEM [...] ORDERABLES Final Re sult Performing Organization Address [facility] Phone Number INTERFACE SYSTEM [...] ORDERABLES Final Res ult Performing Organization Address [facility] Phone Number INTERFACE SYSTEM Refer to clinic/hospital department documented in this encounter Visit Diagnoses Diagnosis Pre-operative cardiovascular examination- Primary documented in this encounter Care Teams Costume Cutter Relationship Specialty Start Date End Date Non-Staff, Physician NO ADDRESS ON FILE PCP - General 08/30/13 documented as of this encounter
--- OUTSIDE RECORDS SUMMARY | 2025-02-03 22:15 | XMS_ITS | Encounter Summary ---
Author Organization [facility] Address 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 CRP 7.6(H) 0.0 - 5.0 mg/L 10/17/2024 7:02 AM CDT [facility] Blood Collection / Unknown 10/17/2024 3:30 AM CDT 10/17/2024 5:54 AM CDT External Provider [facility] CHEMISTRY ORDERABLES Final Result Performing Organization Address City/State/[facility] Co de Phone Number [facility] CLIA # [id number] [address] [place] [address] * (ABNORMAL) CBC WITH DIFFERENTIAL (10/17/2024 3:30 AM CDT) [facility] WBC 6.8 4.8 - 10.8 K/uL 10/17/2024 6:07 AM CDT [facility] RBC 4.46 4.20 - 5.40 M/uL 10/17/2024 6:07 AM CDT [facility] HEMOGLOBIN 12.1 12.0 - 16.0 g/dL 10/17/2024 6:07 AM CDT [facility] HEMATOCRIT 37.6 36.0 - 46.0 % 10/17/2024 6:07 AM CDT [facility] MCV 84.3 84.0 - 103.0 fL 10/17/2024 6:07 AM CDT [facility] MCH 27.1 27.0 - 34.0 pg 10/17/2024 6:07 AM CDT [facility] MCHC 32.2 30.0 - 35.0 g/dL 10/17/2024 6:07 AM CDT [facility] PLATELETS 442(H) 140 - 440 K/uL 10/17/2024 6:07 AM [facility] MPV 10.3 8.9 - 12.8 fL 10/17/2024 6:07 AM [facility] [email or web address] [facility] RDW 15.8(H) 11.0 - 14.5 % 10/17/2024 6:07 AM [facility] RDW-STDEV 49.0 37.0 - 54.0 fL 10/17/2024 6:07 AM [facility] NEUTROPHILS 41(L) 42 - 75 % 10/17/2024 6:07 AM [facility] LYMPHOCYTES 39 24 - 44 % 10/17/2024 6:07 AM [facility] MONOCYTES 12(H) 2 - 10 % 10/17/2024 6:07 AM [facility] EOSINOPHILS 7 0 - 7 % 10/17/2024 6:07 AM [facility] BASOPHILS 1 0 - 1 % 10/17/2024 6:07 AM [facility] IMMATURE GRANULOCYTES 0 0 - 2 % 10/17/2024 6:07 AM [facility] NEUTROPHIL ABSOLUTE 2.81 2.00 - 8.00 K/uL 10/17/2024 6:07 AM [facility] LYMPHOCYTE ABSOLUTE 2.61 1.20 - 4.00 K/uL 10/17/2024 6:07 AM [facility] MONOCYTE ABSOLUTE 0.79(H) 0.10 - 0.60 K/uL 10/17/2024 6:07 AM [facility] EOSINOPHIL ABSOLUTE 0.46 0.00 - 0.70 K/uL 10/17/2024 6:07 AM [facility] BASOPHILS ABSOLUTE 0.08 0.00 - 0.20 K/uL 10/17/2024 6:07 AM [facility] IMMATURE GRANULOCYTES ABSOLUTE 0.03 0.00 - 0.10 K/uL 10/17/2024 6:07 AM [facility] SMEAR REVIEWED: NA - Not Applicable 10/17/2024 6:07 AM [facility] Blood Collection / Unknown 10/17/2024 3:30 AM CDT 10/17/2024 5:54 AM CDT us External Provider [facility] HEMATOLOGY ORDERABLES Christiana hernandez Result [facility] CLIA # [id number] [address] [place] [address] [place] [address] * (ABNORMAL) COMPREHENSIVE METABOLIC PANEL (10/17/2024 3:30 AM CDT) SODIUM 134(L) 136 - 145 mmol/L 10/17/2024 7:02 AM [facility] POTASSIUM 3.8 3.5 - 5.1 mmol/L 10/17/2024 7:02 AM [facility] CHLORIDE 99 98 - 107 mmol/L 10/17/2024 7:02 AM [facility] CO2 17(L) 22 - 29 mmol/L 10/17/2024 7:02 AM [facility] CALCIUM 9.6 8.8 - 10.2 mg/dL 10/17/2024 7:02 AM [facility] BUN 8 8 - 23 mg/dL 10/17/2024 7:02 AM [facility] CREATININE 0.71 0.51 - 0.95 mg/dL 10/17/2024 7:02 AM [facility] Comment:The GFR result is no t clinically significant on patients <18 or >70 years of age. GLUCOSE 103(H) 74 - 99 mg/dL 10/17/2024 7:02 AM [facility] TOTAL PROTEIN 6.7 6.4 - 8.3 g/dL 10/17/2024 7:02 AM [facility] ALBUMIN 3.3(L) 3.5 - 5.2 g/dL 10/17/2024 7:02 AM [facility] BILIRUBIN TOTAL 0.2 0.0 - 1.0 mg/dL 10/17/2024 7:02 AM [facility] ALKALINE PHOSPHATASE 70 35 - 104 U/L 10/17/2024 7:02 AM [facility] AST 16 10 - 35 U/L 10/17/2024 7:02 AM [facility] ALT 16 <=35 U/L 10/17/2024 7:02 AM [facility] GFR >60 mL/min/1.7 3 sq meter 10/17/2024 7:02 AM [facility] Comment:eGFR calculated with 2020 CKD-EPI equation. Vegetarian diet, extremely high or low muscle mass, and may affect results. Cystatin C with Glomerular Filtration Rate is a suitable alternative for these patients. ANION GAP 18 9 - 20 mmol/L 10/17/2024 7:02 AM [facility] Blood Collection / Unknown 10/17/2024 3:30 AM CDT 10/17/2024 5:54 AM CDT us External Provider [facility] CHEMISTRY ORDERABLES Final Result Performing Organization Address City/State/[facility] Co de Phone Number [facility] CLIA # [id number] [address] [place] [phone] documented in this encounter Visit Diagnoses Not [...] documented as of this encounter Care Teams Quality System Manager Relationship Specialty Start Date End Date Non-Staff, Physician NO ADDRESS ON FILE PCP - General 08/30/13 documented as of this encounter
--- OUTSIDE RECORDS SUMMARY | 2025-02-03 22:15 | XMS_ITS | Encounter Summary ---
Author Organization [employer] Address [address] [place] [address] Care Team Providers Care House Servant Name Role Phone Non-Staff, Physician Primary Care Provider Unava ilable Encounter Details Date Type Department Care Team (Late st Contact Info) Description 09/18/[address] 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 WBC 10.2 4.8 - 10.8 K/uL 09/18/2024 5:39 AM CDT [facility] RBC 3.10(L) 4.20 - 5.40 M/uL 09/18/2024 5:39 AM CDT [facility] HEMOGLOBIN 8.5(L) 12.0 - 16.0 g/dL 09/18/2024 5:39 AM CDT [facility] HEMATOCRIT 27.7(L) 36.0 - 46.0 % 09/18/2024 5:39 AM CDT [facility] MCV 89.4 84.0 - 103.0 fL 09/18/2024 5:39 AM CDT [facility] MCH 27.4 27.0 - 34.0 pg 09/18/2024 5:39 AM CDT [facility] MCHC 30.7 30.0 - 35.0 g/dL 09/18/2024 5:39 AM [facility] PLATELETS 475(H) 140 - 440 K/uL 09/18/2024 5:39 AM [facility] MPV 10.6 8.9 - 12.8 fL 09/18/2024 5:39 AM [facility] RDW 19.8(H) 11.0 - 14.5 % 09/18/2024 5:39 AM [facility] RDW-STDEV 63.0(H) 37.0 - 54.0 fL 09/18/2024 5:39 AM [facility] NEUTROPHILS 64 42 - 75 % 09/18/2024 5:39 AM [facility] LYMPHOCYTES 19(L) 24 - 44 % 09/18/2024 5:39 AM [facility] MONOCYTES 9 2 - 10 % 09/18/2024 5:39 AM [facility] EOSINOPHILS 4 0 - 7 % 09/18/2024 5:39 AM [facility] BASOPHILS 0 0 - 1 % 09/18/2024 5:39 AM [facility] IMMATURE GRANULOCYTES 5(H) 0 - 2 % 09/18/2024 5:39 AM [facility] NEUTROPHIL ABSOLUTE 6.49 2.00 - 8.00 K/uL 09/18/2024 5:39 AM [facility] LYMPHOCYTE ABSOLUTE 1.89 1.20 - 4.00 K/uL 09/18/2024 5:39 AM [facility] MONOCYTE ABSOLUTE 0.89(H) 0.10 - 0.60 K/uL 09/18/2024 5:39 AM [facility] EOSINOPHIL ABSOLUTE 0.38 0.00 - 0.70 K/uL 09/18/2024 5:39 AM [facility] BASOPHILS ABSOLUTE 0.04 0.00 - 0.20 K/uL 09/18/2024 5:39 AM [facility] IMMATURE GRANULOCYTES ABSOLUTE 0.49(H) 0.00 - 0.10 K/uL 09/18/2024 5:39 AM CDT [facility] SMEAR REVIEWED: NA - Not Applicable 09/18/2024 5:39 AM CDT [facility] Blood Collection / Unknown 09/18/2024 4:10 AM CDT 09/18/2024 5:29 AM CDT Harry Reyes DO HEMATOLOGY ORDERABLES Final Result [facility] CLIA # [id number] [address] [address] [place] [address] * (ABNORMAL) COMPREHENSIVE METABOLIC PANEL (09/18/2024 4:10 AM CDT) SODIUM 136 136 - 145 mmol/L 09/18/2024 1:27 PM CDT [facility] Comment: ISE malfunction. Notified Licha Richardson RN. This is a corrected result. Previous result was 125 mmol/L on 09/18/2024 at 0606 CDT POTASSIUM 3.8 3.5 - 5.1 mmol/L 09/18/2024 1:27 PM T [facility] Comment: ISE malfunction. Notified Licha Richardson RN. This is a corrected result. Previous result was 3.5 mmol/L on 09/18/2024 at 0606 CDT CHLORIDE 100 98 - 107 mmol/L 09/18/2024 1:27 PM CDT [facility] Comment: ISE malfunction. Notified Licha Richardson RN. This is a corrected result. Previous result was 92 mmol/L on 09/18/2024 at 0606 CDT CO2 25 22 - 29 mmol/L 09/18/2024 1:27 PM CDT [facility] CALCIUM 7.9(L) 8.8 - 10.2 mg/dL 09/18/2024 1:27 PM CDT [facility] BUN 10 8 - 23 mg/dL 09/18/2024 1:27 PM CDT [facility] CREATININE 0.62 0.51 - 0.95 mg/dL 09/18/2024 1:27 PM T [facility] Comment:The GFR result is no t clinically significant on patients <18 or >70 years of age. GLUCOSE 146(H) 74 - 99 mg/dL 09/18/2024 1:27 PM T [facility] TOTAL PROTEIN 5.5(L) 6.4 - 8.3 g/dL 09/18/2024 1:27 PM [facility] ALBUMIN 2.5(L) 3.5 - 5.2 g/dL 09/18/2024 1:27 PM [facility] BILIRUBIN TOTAL 0.2 0.0 - 1.0 mg/dL 09/18/2024 1:27 PM [facility] ALKALINE PHOSPHATASE 102 35 - 104 U/L 09/18/2024 1:27 PM [facility] AST 81(H) 10 - 35 U/L 09/18/2024 1:27 PM [facility] ALT 61(H) <=35 U/L 09/18/2024 1:27 PM [facility] GFR >60 mL/min/1.7 3 sq meter 09/18/2024 1:27 PM [facility] Comment:eGFR calculated with 2020 CKD-EPI equation. Vegetarian diet, extremely high or low muscle mass, and may affect results. Cystatin C with Glomerular Filtration Rate is a suitable alternative for these patients. ANION GAP 11 9 - 20 mmol/L 09/18/2024 1:27 PM T [facility] Comment: ISE malfunction. Notified Licha Richardson RN. This is a corrected result. Previous result was 8 mmol/L on 09/18/2024 at 0606 CDT Blood Collection / Unknown 09/18/2024 4:10 AM CDT 09/18/2024 5:28 AM CDT us Harry Reyes DO CHEMISTRY ORDERABLES Edited Result - Final [facility] CLIA # [id number] [id number] [place] [address] documented in this encounter Visit Diagnoses Not [...] documented as of this encounter Care Teams House Servant Relationship Specialty Start Date End Date Non-Staff, Physician NO ADDRESS ON FILE PCP - General 08/30/13 documented as of this encounter
--- OUTSIDE RECORDS SUMMARY | 2025-02-03 22:15 | XMS_ITS | Encounter Summary ---
Author Organization [facility] Address 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 Gender Identity Not on file Sexual Orientation [...] (ABNORMAL) MANUAL DIFFERENTIAL (09/17/2024 9:50 AM CDT) [facility] SEGMENTED NEUTROPHILS 82(H) 36 - 66 % 09/17/2024 11:03 AM T [facility] LYMPHOCYTES RELATIVE 5(L) 24 - 44 % 09/17/2024 11:03 AM T [facility] MONOCYTES RELATIVE 7 4 - 10 % 2024 11:03 AM [facility] EOSINOPHILS RELATIVE 3 0 - 3 % 09/17/2024 11:03 AM [facility] METAMYELOCYTES RELATIVE 1 0 - 1 % 09/17/2024 11:03 AM [facility] MYELOCYTES - REL (DIFF) 2(H) 0 - 1 % 09/17/2024 11:03 AM [facility] PLATELET EST. Adequate 09/17/2024 11:03 AM [facility] NEUTROPHILS ABSOLUTE COUNT 8.86(H) 2.00 - 8.00 K/uL 09/17/2024 11:03 AM [facility] LYMPHOCYTES ABSOLUTE 0.54(L) 1.20 - 4.00 K/uL 09/17/2024 11:03 AM [facility] ATYPICAL LYMPHS ABSOLUTE 09/17/2024 11:03 AM [facility] MONOCYTES ABSOLUTE 0.76(H) 0.10 - 0.60 K/uL 09/17/2024 11:03 AM [facility] EOSINOPHILS ABSOLUTE 0.32 0.00 - 0.70 K/uL 09/17/2024 11:03 AM [facility] ANISOCYTOSIS 2+ /hpf 09/17/2024 11:03 AM [facility] POIKILOCYTES 1+ /hpf 09/17/2024 11:03 AM [facility] POLYCHROMASIA 1+ /hpf 09/17/2024 11:03 AM CDT [facility] TOTAL CELLS COUNTED IN DIFF 100 09/17/2024 11:03 AM CDT [facility] Blood Collection / Unknown 09/17/2024 9:50 AM CDT 09/17/2024 10:34 AM CDT Harry Reyes DO HEMATOLOGY ORDERABLES COM Fi nal Result Performing Organization Address City/[facility]/ZIP Co de Phone Number [facility] CLIA # [id number] [address] [id number] * (ABNORMAL) C-REACTIVE PROTEIN (09/17/2024 9:50 AM CDT) Pathologist [facility] CRP 92.2(H) 0.0 - 5.0 mg/L 09/17/2024 11:16 AM T [facility] Blood Collection / Unknown 09/17/2024 9:50 AM CDT 09/17/2024 10:34 AM CDT Harry Reyes DO CHEMISTRY ORDERABLES Final R esult Performing Organization Address City/[facility]/ZIP Co de Phone Number [facility] CLIA # [id number] [address] [id number] * (ABNORMAL) CBC WITH DIFFERENTIAL (09/17/2024 9:50 AM CDT) WBC 10.8 4.8 - 10.8 K/uL 09/17/2024 11:03 AM CDT [facility] RBC 3.14(L) 4.20 - 5.40 M/uL 09/17/2024 11:03 AM [facility] HEMOGLOBIN 8.6(L) 12.0 - 16.0 g/dL 09/17/2024 11:03 AM [facility] HEMATOCRIT 27.1(L) 36.0 - 46.0 % 09/17/2024 11:03 AM [facility] MCV 86.3 84.0 - 103.0 fL 09/17/2024 11:03 AM [facility] MCH 27.4 27.0 - 34.0 pg 09/17/2024 11:03 AM [facility] MCHC 31.7 30.0 - 35.0 g/dL 09/17/2024 11:03 AM [facility] PLATELETS 433 140 - 440 K/uL 09/17/2024 11:03 AM [facility] MPV 10.4 8.9 - 12.8 fL 09/17/2024 11:03 AM [facility] RDW 19.7(H) 11.0 - 14.5 % 09/17/2024 11:03 AM [facility] RDW-STDEV 60.0(H) 37.0 - 54.0 fL 09/17/2024 11:03 AM [facility] SMEAR REVIEWED: - See Manual Diff. 09/17/2024 11:03 AM [facility] Blood Collection / Unknown 09/17/2024 9:50 AM CDT 09/17/2024 10:34 AM CDT us Harry Reyes DO HEMATOLOGY ORDERABLES Final Result [facility] CLIA # [id number] [address] [place] [address] [place], [place] [id number] * (ABNORMAL) COMPREHENSIVE METABOLIC PANEL (09/17/2024 9:50 AM CDT) SODIUM 133(L) 136 - 145 mmol/L 09/17/2024 11:16 AM [facility] POTASSIUM 4.6 3.5 - 5.1 mmol/L 09/17/2024 11:16 AM [facility] CHLORIDE 99 98 - 107 mmol/L 09/17/2024 11:16 AM [facility] CO2 23 22 - 29 mmol/L 09/17/2024 11:16 AM [facility] CALCIUM 7.8(L) 8.8 - 10.2 mg/dL 09/17/2024 11:16 AM [facility] BUN 12 8 - 23 mg/dL 09/17/2024 11:16 AM [facility] CREATININE 0.65 0.51 - 0.95 mg/dL 09/17/2024 11:16 AM [facility] Comment:The GFR result is no t clinically significant on patients <18 or >70 years of age. GLUCOSE 117(H) 74 - 99 mg/dL 09/17/2024 11:16 AM [facility] TOTAL PROTEIN 5.4(L) 6.4 - 8.3 g/dL 09/17/2024 11:16 AM [facility] ALBUMIN 2.3(L) 3.5 - 5.2 g/dL 09/17/2024 11:16 AM [facility] BILIRUBIN TOTAL 0.3 0.0 - 1.0 mg/dL 09/17/2024 11:16 AM [facility] ALKALINE PHOSPHATASE 104 35 - 104 U/L 09/17/2024 11:16 AM [facility] AST 89(H) 10 - 35 U/L 09/17/2024 11:16 AM [facility] ALT 60(H) <=35 U/L 09/17/2024 11:16 AM [facility] GFR >60 mL/min/1.7 3 sq meter 09/17/2024 11:16 AM [facility] Comment:eGFR calculated with 2020 CKD-EPI equation. Vegetarian diet, extremely high or low muscle mass, and may affect results. Cystatin C with Glomerular Filtration Rate is a suitable alternative for these patients. ANION GAP 11 9 - 20 mmol/L 09/17/2024 11:16 AM CDT [facility] Blood Collection / Unknown 09/17/2024 9:50 AM CDT 09/17/2024 10:34 AM CDT Harry Reyes DO CHEMISTRY ORDERABLES Final R esult [facility] [place] [facility] CLIA # [id number] [address] documented in this encounter Visit Diagnoses Not [...] documented as of this encounter Care Teams Taker Off Braker Machine Relationship Specialty Start Date End Date Non-Staff, Physician NO ADDRESS ON FILE PCP - General 08/30/13 documented as of this encounter
--- OUTSIDE RECORDS SUMMARY | 2025-02-03 22:15 | XMS_ITS | Encounter Summary ---
Author Organization [employer] Address 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 Blood Collection / Unknown 09/22/2024 3:15 PM CDT 09/22/2024 6:43 PM CDT us Harry Reyes DO CHEMISTRY ORDERABLES Final R esult [facility] CLIA # [id number] [facility] [address] documented in this encounter Visit Diagnoses Not [...] documented as of this encounter Care Teams Print Line Operator Relationship Specialty Start Date End Date Non-Staff, Physician NO ADDRESS ON FILE PCP - General 08/30/13 documented as of this encounter
--- OUTSIDE RECORDS SUMMARY | 2025-02-03 22:15 | XMS_ITS | Encounter Summary ---
Author Organization [email or web address] Address [address] [place] [address] Care Team Providers Care Supervisor Front Name Role Phone Non-Staff, Physician Primary Care Provider Unava ilable Encounter Details Date Type Department Care Team (Late st Contact Info) Description 09/19/[address] 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 Gender Identity Not on file Sexual Orientation [...] CBC WITH DIFFERENTIAL (09/19/2024 3:15 AM CDT) [facility] WBC 7.6 4.8 - 10.8 K/uL 09/19/2024 5:45 AM CDT [facility] RBC 2.92(L) 4.20 - 5.40 M/uL 09/19/2024 5:45 AM CDT [facility] HEMOGLOBIN 7.9(L) 12.0 - 16.0 g/dL 09/19/2024 5:45 AM CDT [facility] HEMATOCRIT 25.9(L) 36.0 - 46.0 % 09/19/2024 5:45 AM CDT [facility] MCV 88.7 84.0 - 103.0 fL 09/19/2024 5:45 AM CDT [facility] MCH 27.1 27.0 - 34.0 pg 09/19/2024 5:45 AM CDT [facility] MCHC 30.5 30.0 - 35.0 g/dL 09/19/2024 5:45 AM CDT [facility] PLATELETS 539(H) 140 - 440 K/uL 09/19/2024 5:45 AM CDT [facility] MPV 10.4 8.9 - 12.8 fL 09/19/2024 5:45 AM CDT [facility] RDW 19.4(H) 11.0 - 14.5 % 09/19/2024 5:45 AM CDT [facility] RDW-STDEV 61.8(H) 37.0 - 54.0 fL 09/19/2024 5:45 AM CDT [facility] NEUTROPHILS 61 42 - 75 % 09/19/2024 5:45 AM CDT [facility] LYMPHOCYTES 20(L) 24 - 44 % 09/19/2024 5:45 AM CDT [facility] MONOCYTES 11(H) 2 - 10 % 09/19/2024 5:45 AM CDT [facility] EOSINOPHILS 5 0 - 7 % 09/19/2024 5:45 AM CDT [facility] BASOPHILS 1 0 - 1 % 09/19/2024 5:45 AM CDT [facility] IMMATURE GRANULOCYTES 4(H) 0 - 2 % 09/19/2024 5:45 AM CDT [facility] NEUTROPHIL ABSOLUTE 4.62 2.00 - 8.00 K/uL 09/19/2024 5:45 AM CDT [facility] LYMPHOCYTE ABSOLUTE 1.48 1.20 - 4.00 K/uL 09/19/2024 5:45 AM CDT [facility] MONOCYTE ABSOLUTE 0.81(H) 0.10 - 0.60 K/uL 09/19/2024 5:45 AM CDT [facility] EOSINOPHIL ABSOLUTE 0.34 0.00 - 0.70 K/uL 09/19/2024 5:45 AM CDT [facility] BASOPHILS ABSOLUTE 0.05 0.00 - 0.20 K/uL 09/19/2024 5:45 AM CDT [facility] IMMATURE GRANULOCYTES ABSOLUTE 0.28(H) 0.00 - 0.10 K/uL 09/19/2024 5:45 AM CDT [facility] SMEAR REVIEWED: NN - No Action Needed 09/19/2024 5:45 AM CDT [facility] Blood Collection / Unknown 09/19/2024 3:15 AM CDT 09/19/2024 5:35 AM CDT us Harry Reyes DO HEMATOLOGY ORDERABLES Final Result [facility] CLIA # [id number] [address] [address] [place] [address] * (ABNORMAL) C-REACTIVE PROTEIN (09/19/2024 3:15 AM CDT) CRP 52.6(H) 0.0 - 5.0 mg/L 09/19/2024 6:20 AM CDT [facility] Blood Collection / Unknown 09/19/2024 3:15 AM CDT 09/19/2024 5:35 AM CDT Harry Reyes DO CHEMISTRY ORDERABLES Final R esult [facility] CLIA # [id number] [address] [place] [address] * (ABNORMAL) COMPREHENSIVE METABOLIC PANEL (09/19/2024 3:15 AM CDT) SODIUM 139 136 - 145 mmol/L 09/19/2024 6:20 AM T [facility] POTASSIUM 3.3(L) 3.5 - 5.1 mmol/L 09/19/2024 6:20 AM T [facility] CHLORIDE 102 98 - 107 mmol/L 09/19/2024 6:20 AM T [facility] CO2 26 22 - 29 mmol/L 09/19/2024 6:20 AM T [facility] CALCIUM 7.6(L) 8.8 - 10.2 mg/dL 09/19/2024 6:20 AM T [facility] BUN 9 8 - 23 mg/dL 09/19/2024 6:20 AM T [facility] CREATININE 0.61 0.51 - 0.95 mg/dL 09/19/2024 6:20 AM T [facility] Comment:The GFR result is no t clinically significant on patients <18 or >70 years of age. GLUCOSE 146(H) 74 - 99 mg/dL 09/19/2024 6:20 AM T [facility] TOTAL PROTEIN 5.2(L) 6.4 - 8.3 g/dL 09/19/2024 6:20 AM T [facility] ALBUMIN 2.3(L) 3.5 - 5.2 g/dL 09/19/2024 6:20 AM T [facility] BILIRUBIN TOTAL 0.2 0.0 - 1.0 mg/dL 09/19/2024 6:20 AM T [facility] ALKALINE PHOSPHATASE 85 35 - 104 U/L 09/19/2024 6:20 AM [facility] AST 53(H) 10 - 35 U/L 09/19/2024 6:20 AM T [facility] ALT 47(H) <=35 U/L 09/19/2024 6:20 AM [facility] GFR >60 mL/min/1.7 3 sq meter 09/19/2024 6:20 AM [facility] Comment:eGFR calculated with 2020 CKD-EPI equation. Vegetarian diet, extremely high or low muscle mass, and may affect results. Cystatin C with Glomerular Filtration Rate is a suitable alternative for these patients. ANION GAP 11 9 - 20 mmol/L 09/19/2024 6:20 AM [facility] Blood Collection / Unknown 09/19/2024 3:15 AM CDT 09/19/2024 5:35 AM CDT us Harry Reyes DO CHEMISTRY ORDERABLES Final R esult [facility] CLIA # [id number] [address] [place] [address] documented in this encounter Visit Diagnoses Not [...] documented as of this encounter Care Teams Supervisor Front Relationship Specialty Start Date End Date Non-Staff, Physician NO ADDRESS ON FILE PCP - General 08/30/13 documented as of this encounter
--- OUTSIDE RECORDS SUMMARY | 2025-02-03 22:15 | XMS_ITS | Encounter Summary ---
Author Organization [employer] Address 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 Blood Collection / Unknown 10/10/2024 4:28 AM CDT 10/10/2024 5:32 AM CDT us External Provider [facility] CHEMISTRY ORDERABLES Final Result Performing Organization Address City/State/[facility] Co de Phone Number [facility] CLIA # [id number] [address] [place] [address] * (ABNORMAL) CBC WITH DIFFERENTIAL (10/10/2024 4:28 AM CDT) [facility] WBC 7.5 4.8 - 10.8 K/uL 10/10/2024 5:[address] [facility] RBC 3.81(L) 4.20 - 5.40 M/uL 10/10/2024 5:[address] [facility] HEMOGLOBIN 10.6(L) 12.0 - 16.0 g/dL 10/10/2024 5:[address] [facility] HEMATOCRIT 34.1(L) 36.0 - 46.0 % 10/10/2024 5:[address] [facility] MCV 89.5 84.0 - 103.0 fL 10/10/2024 5:[address] [facility] MCH 27.8 27.0 - 34.0 pg 10/10/2024 5:[address] [facility] MCHC 31.1 30.0 - 35.0 g/dL 10/10/2024 5:[address] [facility] PLATELETS 381 140 - 440 K/uL 10/10/2024 5:34 AM T [facility] [employer] [facility] MPV 10.1 8.9 - 12.8 fL 10/10/2024 5:34 AM [facility] [employer] [facility] RDW 16.1(H) 11.0 - 14.5 % 10/10/2024 5:34 AM [facility] [employer] [facility] RDW-STDEV 52.8 37.0 - 54.0 fL 10/10/2024 5:34 AM CDT [facility] [employer] [facility] NEUTROPHILS 53 42 - 75 % 10/10/2024 5:34 AM [facility] [employer] [facility] LYMPHOCYTES 29 24 - 44 % 10/10/2024 5:34 AM [facility] [employer] [facility] MONOCYTES 11(H) 2 - 10 % 10/10/2024 5:34 AM [facility] [employer] [facility] EOSINOPHILS 6 0 - 7 % 10/10/2024 5:34 AM [facility] [employer] [facility] BASOPHILS 1 0 - 1 % 10/10/2024 5:34 AM [facility] [employer] [facility] IMMATURE GRANULOCYTES 1 0 - 2 % 10/10/2024 5:34 AM [facility] [employer] [facility] NEUTROPHIL ABSOLUTE 3.94 2.00 - 8.00 K/uL 10/10/2024 5:34 AM [facility] [employer] [facility] LYMPHOCYTE ABSOLUTE 2.13 1.20 - 4.00 K/uL 10/10/2024 5:34 AM [facility] [employer] [facility] MONOCYTE ABSOLUTE 0.84(H) 0.10 - 0.60 K/uL 10/10/2024 5:34 AM CDT [facility] [employer] [facility] EOSINOPHIL ABSOLUTE 0.43 0.00 - 0.70 K/uL 10/10/2024 5:34 AM CDT [facility] [employer] [facility] BASOPHILS ABSOLUTE 0.05 0.00 - 0.20 K/uL 10/10/2024 5:34 AM CDT [facility] [employer] [facility] IMMATURE GRANULOCYTES ABSOLUTE 0.06 0.00 - 0.10 K/uL 10/10/2024 5:34 AM [facility] [employer] [facility] SMEAR REVIEWED: NA - Not Applicable 10/10/2024 5:34 AM [facility] Blood Collection / Unknown 10/10/2024 4:28 AM CDT 10/10/2024 5:30 AM CDT us External Provider [facility] HEMATOLOGY ORDERABLES Christiana l Result [facility] CLIA # [id number] [address] [place] [address] [place] [address] * (ABNORMAL) COMPREHENSIVE METABOLIC PANEL (10/10/2024 4:28 AM CDT) SODIUM 137 136 - 145 mmol/L 10/10/2024 6:08 AM [facility] POTASSIUM 3.9 3.5 - 5.1 mmol/L 10/10/2024 6:08 AM [facility] CHLORIDE 100 98 - 107 mmol/L 10/10/2024 6:08 AM [facility] CO2 25 22 - 29 mmol/L 10/10/2024 6:08 AM [facility] CALCIUM 8.9 8.8 - 10.2 mg/dL 10/10/2024 6:08 AM [facility] BUN 10 8 - 23 mg/dL 10/10/2024 6:08 AM [facility] CREATININE 0.48(L) 0.51 - 0.95 mg/dL 10/10/2024 6:08 AM [facility] Comment:The GFR result is no t clinically significant on patients <18 or >70 years of age. GLUCOSE 119(H) 74 - 99 mg/dL 10/10/2024 6:08 AM [facility] TOTAL PROTEIN 6.3(L) 6.4 - 8.3 g/dL 10/10/2024 6:08 AM [facility] ALBUMIN 2.7(L) 3.5 - 5.2 g/dL 10/10/2024 6:[address] [facility] BILIRUBIN TOTAL 0.2 0.0 - 1.0 mg/dL 10/10/2024 6:[address] [facility] ALKALINE PHOSPHATASE 72 35 - 104 U/L 10/10/2024 6:[address] [facility] AST 31 10 - 35 U/L 10/10/2024 6:[address] [facility] ALT 29 <=35 U/L 10/10/2024 6:08 AM [facility] GFR >60 mL/min/1. 73 sq meter 10/10/2024 6:[address] [facility] Comment:eGFR calculated with 2020 CKD-EPI equation. Vegetarian diet, extremely high or low muscle mass, and may affect results. Cystatin C with Glomerular Filtration Rate is a suitable alternative for these patients. ANION GAP 12 9 - 20 mmol/L 10/10/2024 6:08 AM [facility] Blood Collection / Unknown 10/10/2024 4:28 AM CDT 10/10/2024 5:32 AM CDT us External Provider [facility] CHEMISTRY ORDERABLES Final Result [facility] CLIA # [id number] [address] [place] [address] documented in this encounter Visit Diagnoses Not [...] documented as of this encounter Care Teams Flag Signalman Relationship Specialty Start Date End Date Non-Staff, Physician NO ADDRESS ON FILE PCP - General 08/30/13 documented as of this encounter
--- OUTSIDE RECORDS SUMMARY | 2025-02-03 22:15 | XMS_ITS | Encounter Summary ---
Author Organization [employer] Address 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 Blood Collection / Unknown 09/22/2024 4:15 AM CDT 09/22/2024 5:17 AM CDT Harry Reyes DO CHEMISTRY ORDERABLES Final R esult Performing Organization Address City/[facility]/ZIP Co de Phone Number [facility] CLIA # [id number] [address] [address] * MAGNESIUM LEVEL (09/22/2024 4:15 AM CDT) Pathologist [facility] MAGNESIUM 1.6 1.6 - 2.4 mg/dL 09/22/2024 8:[address] [facility] Blood Collection / Unknown 09/22/2024 4:15 AM CDT 09/22/2024 5:17 AM CDT Harry Reyes DO CHEMISTRY ORDERABLES Final R esult Performing Organization Address City/[facility]/ZIP Co de Phone Number [facility] CLIA # [id number] [address] [address] * (ABNORMAL) CBC WITH DIFFERENTIAL (09/22/2024 4:15 AM CDT) [facility] WBC 9.0 4.8 - 10.8 K/uL 09/22/2024 5:27 AM [facility] RBC 3.25(L) 4.20 - 5.40 M/uL 09/22/2024 5:27 AM [facility] HEMOGLOBIN 8.9(L) 12.0 - 16.0 g/dL 09/22/2024 5:27 AM [facility] HEMATOCRIT 29.0(L) 36.0 - 46.0 % 09/22/2024 5:27 AM [facility] MCV 89.2 84.0 - 103.0 fL 09/22/2024 5:27 AM [facility] MCH 27.4 27.0 - 34.0 pg 09/22/2024 5:27 AM [facility] MCHC 30.7 30.0 - 35.0 g/dL 09/22/2024 5:27 AM [facility] PLATELETS 561(H) 140 - 440 K/uL 09/22/2024 5:27 AM [facility] MPV 10.3 8.9 - 12.8 fL 09/22/2024 5:27 AM [facility] RDW 20.2(H) 11.0 - 14.5 % 09/22/2024 5:27 AM [facility] RDW-STDEV 63.7(H) 37.0 - 54.0 fL 09/22/2024 5:27 AM [facility] NEUTROPHILS 62 42 - 75 % 09/22/2024 5:27 AM [facility] 21(L) 24 - 44 % 09/22/2024 5:27 AM [facility] MONOCYTES 10 2 - 10 % 09/22/2024 5:27 AM [facility] [employer] [facility] EOSINOPHILS 4 0 - 7 % 09/22/2024 5:27 AM [facility] BASOPHILS 1 0 - 1 % 09/22/2024 5:[address] [facility] IMMATURE GRANULOCYTES 2 0 - 2 % 09/22/2024 5:[address] [facility] NEUTROPHIL ABSOLUTE 5.59 2.00 - 8.00 K/uL 09/22/2024 5:[address] [facility] LYMPHOCYTE ABSOLUTE 1.88 1.20 - 4.00 K/uL 09/22/2024 5:[address] [facility] MONOCYTE ABSOLUTE 0.91(H) 0.10 - 0.60 K/uL 09/22/2024 5:[address] [facility] EOSINOPHIL ABSOLUTE 0.38 0.00 - 0.70 K/uL 09/22/2024 5:[address] [facility] BASOPHILS ABSOLUTE 0.06 0.00 - 0.20 K/uL 09/22/2024 5:[address] [facility] IMMATURE GRANULOCYTES ABSOLUTE 0.13(H) 0.00 - 0.10 K/uL 09/22/2024 5:[address] [facility] SMEAR REVIEWED: NN - No Action Needed 09/22/2024 5:[address] [facility] Blood Collection / Unknown 09/22/2024 4:15 AM CDT 09/22/2024 5:17 AM CDT Harry Reyes DO HEMATOLOGY ORDERABLES Final Result [facility] CLIA # [id number] [address] [place] [address] * (ABNORMAL) TROPONIN (09/22/2024 4:15 AM CDT) TROPONIN T, 5TH GEN 28(H) <=10 ng/L 09/22/2024 5:[address] [facility] Blood Collection / Unknown 09/22/2024 4:15 AM CDT 09/22/2024 5:[address] [facility] - 09/22/2024 5:50 AM CDT Troponin elevated. us Harry Reyes DO CHEMISTRY ORDERABLES Final R esult [facility] DAVID # [id number] [facility] [address] [place] [address] * (ABNORMAL) COMPREHENSIVE METABOLIC PANEL (09/22/2024 4:15 AM CDT) Pathologist [facility] SODIUM 139 136 - 145 mmol/L 09/22/2024 5:[address] [facility] POTASSIUM 3.4(L) 3.5 - 5.1 mmol/L 09/22/2024 5:[address] [facility] CHLORIDE 101 98 - 107 mmol/L 09/22/2024 5:[address] [facility] CO2 25 22 - 29 mmol/L 09/22/2024 5:[address] [facility] CALCIUM 8.2(L) 8.8 - 10.2 mg/dL 09/22/2024 5:[address] [facility] BUN 11 8 - 23 mg/dL 09/22/2024 5:[address] [facility] CREATININE 0.52 0.51 - 0.95 mg/dL 09/22/2024 5:[address] [facility] Comment:The GFR result is no t clinically significant on patients <18 or >70 years of age. GLUCOSE 181(H) 74 - 99 mg/dL 09/22/2024 5:[address] [facility] TOTAL PROTEIN 5.9(L) 6.4 - 8.3 g/dL 09/22/2024 5:[address] [facility] ALBUMIN 2.7(L) 3.5 - 5.2 g/dL 09/22/2024 5:[address] [facility] BILIRUBIN TOTAL 0.2 0.0 - 1.0 mg/dL 09/22/2024 5:[address] [facility] ALKALINE PHOSPHATASE 78 35 - 104 U/L 09/22/2024 5:[address] [facility] AST 39(H) 10 - 35 U/L 09/22/2024 5:[address] [facility] ALT 37(H) <=35 U/L 09/22/2024 5:[address] [facility] GFR >60 mL/min/1.7 3 sq meter 09/22/2024 5:[address] [facility] Comment:eGFR calculated with 2020 CKD-EPI equation. Vegetarian diet, extremely high or low muscle mass, and may affect results. Cystatin C with Glomerular Filtration Rate is a suitable alternative for these patients. ANION GAP 13 9 - 20 mmol/L 09/22/2024 5:[address] [facility] Blood Collection / Unknown 09/22/2024 4:15 AM CDT 09/22/2024 5:17 AM CDT us Harry Reyes DO CHEMISTRY ORDERABLES Final R esult [facility] CLIA # [id number] [address] [place] [address] documented in this encounter Visit Diagnoses Not [...] documented as of this encounter Care Teams Refrigeration Insulator Relationship Specialty Start Date End Date Non-Staff, Physician NO ADDRESS ON FILE PCP - General 08/30/13 documented as of this encounter
--- OUTSIDE RECORDS SUMMARY | 2025-02-03 22:15 | XMS_ITS | Clinical Summary ---
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
--- OUTSIDE RECORDS SUMMARY | 2025-02-03 22:15 | XMS_ITS | Encounter Summary ---
Author Organization [employer] Address 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 Gender Identity Not on file [...] and/or colonizing bacteria 10/13/2024 4:39 AM CDT [facility] [employer] [facility] Urine URINE SPECIMEN OBTAINED BY CLEAN CATCH PROCEDURE / Unknown Collection / Unknown 10/12/2024 1:30 AM CDT 10/12/2024 6:20 AM CDT us External Provider [facility] MICROBIOLOGY - GENERAL ORD ERABLES Final Result [facility] CLIA # [id number] [address] [address] * (ABNORMAL) URINALYSIS WITH REFLEX CULTURE (10/12/2024 1:30 AM CDT) COLOR UA Pale Yellow Pale to Dark Yellow 10/12/2024 6:20 AM CDT [facility] CLARITY UA Cloudy(A) Clear 10/12/2024 6:20 AM T [facility] SPECIFIC GRAVITY UA 1.004 1.003 - 1.035 10/12/2024 6:20 AM T [facility] PH UA 5.5 5.0 - 8.0 10/12/2024 6:20 AM T [facility] LEUKOCYTE ESTERASE UA 3+(A) Negative 10/12/2024 6:20 AM T [facility] [employer] [facility] NITRITE UA Negative Negative 10/12/2024 6:20 AM T [facility] PROTEIN UA Trace(A) Negative 10/12/2024 6:20 AM T [facility] Comment: For patients with 'trace' results, consider ordering a culture and sensitivity if clinically indicated. GLUCOSE UA Negative Negative 10/12/2024 6:20 AM T [facility] KETONES UA Negative Negative 10/12/2024 6:20 AM CDT [facility] UROBILINOGEN UA <2.0 <2.0 mg/dL 6:20 AM CDT [facility] BILIRUBIN UA Negative Negative 10/12/2024 6:20 AM CDT [facility] BLOOD UA 3+(A) Negative 10/12/2024 6:20 AM CDT [facility] WBC UA >100(A) 0 - 2 /hpf 10/12/2024 6:20 AM CDT [facility] RBC UA 0-2 0 - 2 /hpf 10/12/2024 6:20 AM CDT [facility] BACTERIA UA 1+(A) Negative /hpf 10/12/2024 6:20 AM CDT [facility] EPITHELIAL CELLS, URINE 0-5 0 - 5 /hpf 10/12/2024 6:20 AM CDT [facility] WBC CLUMPS Present(A) Absent 10/12/2024 6:20 AM CDT [facility] Urine URINE SPECIMEN OBTAINED BY CLEAN CATCH PROCEDURE / Unknown Collection / Unknown 10/12/2024 1:30 AM CDT 10/12/2024 5:36 AM CDT Narrative [facility] - 10/12/2024 6:20 AM CDT Based on results, a urine culture has been reflexed. us External Provider [facility] URINE ORDERABLES Final Res ult [facility] CLIA # [id number] [address] [place] [address] documented in this encounter Visit Diagnoses Not on filedocumented in this encounter Additional Health Concerns Infection Onset Date Last Indicated Resolved Time R/O GI Pathogen 10/27/2024 10/27/2024 10/27/2024 1 :05 PM CDT C Diff Comment:01/19/25: Pt no longer having symptoms of C. Diff. Resolved per c. Diff update 01/02/25. 7/17/25 This patient is within their 60 day [...] documented as of this encounter Care Teams Planner Scheduler Relationship Specialty Start Date End Date Non-Staff, Physician NO ADDRESS ON FILE PCP - General 08/30/13 documented as of this encounter
--- OUTSIDE RECORDS SUMMARY | 2025-02-03 22:15 | XMS_ITS | Encounter Summary ---
Author Organization [employer] Address 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 Gender Identity Not on file Sexual Orientation Not on file documented as of this encounter Plan of Treatment Not on file documented as of this encounter Procedures Procedure Name Priority Date/Time Associated Diagnosis Comments URINE CULTURE Routine 10/17/2024 3:32 PM CDT documented in this encounter Results * URINE CULTURE (10/17/2024 3:32 PM CDT) CULTURE No growth 10/18/2024 1:06 PM CDT [facility] Urine Collection / Unknown 10/17/2024 3:32 PM CDT 10/17/2024 4:47 PM CDT us External Provider [facility] MICROBIOLOGY - GENERAL ORD ERABLES Final Result [facility] CLIA # [id number] [id number] [place] [address] documented in this encounter Visit Diagnoses Not [...] documented as of this encounter Care Teams Corporate Bond Trader Relationship Specialty Start Date End Date Non-Staff, Physician NO ADDRESS ON FILE PCP - General 08/30/13 documented as of this encounter
--- OUTSIDE RECORDS SUMMARY | 2025-02-03 22:15 | XMS_ITS | Encounter Summary ---
Author Organization [employer] Address 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 Gender Identity Not on file Sexual Orientation [...] to Dark Yellow 10/18/2024 4:51 AM CDT [facility] CLARITY UA Clear Clear 10/18/2024 4:51 AM CDT [facility] SPECIFIC GRAVITY UA 1.005 1.003 - 1.035 10/18/2024 4:51 AM CDT [facility] PH UA 5.0 5.0 - 8.0 10/18/2024 4:51 AM CDT [facility] LEUKOCYTE ESTERASE UA Negative Negative 10/18/2024 4:51 AM CDT [facility] NITRITE UA Negative Negative 10/18/2024 4:51 AM CDT [facility] PROTEIN UA Negative Negative 10/18/2024 4:51 AM CDT [facility] GLUCOSE UA Negative Negative 10/18/2024 4:51 AM CDT [facility] KETONES UA Negative Negative 10/18/2024 4:51 AM CDT [facility] UROBILINOGEN UA <2.0 <2.0 mg/dL 4:51 AM CDT [facility] BILIRUBIN UA Negative Negative 10/18/2024 4:51 AM CDT [facility] BLOOD UA Negative Negative 10/18/2024 4:51 AM T [facility] Urine URINE SPECIMEN OBTAINED BY CLEAN CATCH PROCEDURE / Unknown Collection / Unknown 10/18/2024 2:30 AM CDT 10/18/2024 4:46 AM CDT us Kiarra Charles MD URINE ORDERABLES Final Res ult [facility] CLIA # [id number] [address] [address] documented in this encounter Visit Diagnoses Not [...] documented as of this encounter Care Teams Relationship Consultant Relationship Specialty Start Date End Date Non-Staff, Physician NO ADDRESS ON FILE PCP - General 08/30/13 documented as of this encounter
--- OUTSIDE RECORDS SUMMARY | 2025-02-03 22:15 | XMS_ITS | Data Portability ---
Author Organization [facility] Adonay Oliver, [facility] Address [facility] [address] Assessment No assessment recorded. Plan of Treatment Reminders Order Date Submit Date Provider Last Modified By Organization Details Last Modified Time Details Appointments None record ed. Lab None record ed. Referral None record ed. Procedures None record ed. Surgeries None record ed. Imaging None record ed. Medication Orders None record ed. Patient TargetsNo targets recorded. Patient Instructions Encounter Date Encounter Id Patient Instructions Last Modified By Organization Details Last Modified Time 12/14/2024 [id number] Hospital stay fo r C. Diff and abdominal wall cellulitis. Persistant vomiting, tx with NG tube. EGD showed esophagitis, suspected related to NG irritation. Colostomy leaking into abdominal would. Blood pressure too low, will d/c atenolol. Labs on Thursday, f/u 1 week. [email or web address] Not available 12/19/2024 15:45:00 12/21/2024 [id number] wound healing well, less redness and does not appear infected. son and patient poor historians no new information, but I am now able to access old discharge summaries. Very sick lady with perforated colon and abscess with multiple prolonged stays. eliquis for history of a.fib poor appetite for many months since infection; will add ppi Not available 12/21/2024 14:58:48 Reason for Referral None Reported. Results Created Date Observation Date Name Description Value Unit Range Abnormal Flag Note LastModifiedBy Organization Detail LastModifiedTime Result Notes None recorded. Problems Name Problem SNOMED Code Status Onset Date Resolution Date Notes Provider Name and Address Organization Details Recorded Time Post-disch arge follow-up 060678670 Active 2024 [facility] Clostridiu m difficile diarrhea 5606607750076 Active 2024 [facility] 13:[facility]:23 History of colostomy 337849544 Active 2024 [facility] 13:00:25 Wound of abdomen 120209544 Active 2024 [facility] 13:00:25 Hypokalemi a 14601197 Active 2024 [facility] 13:00:28 Problem Notes None recorded. Medical Equipment None Reported. Medications Name Sig Start Date Stop Date Status Note LastModified by Organization Details LastModified Time hydrocodone 5 mg-acetamino phen 325 mg tablet Take 1 tablet every 6 hours by oral route as needed for 30 days. 2024 active Not Available Not Available Not Avai lable atenolol 25 mg tablet TAKE 1 TABLET BY MOUTH IN THE MORNING FOR 30 DAYS active Not Available Not Available Not Available bethanechol chloride 25 mg tablet TAKE 1/2 (ONE-HALF) TABLET BY MOUTH THREE TIMES DAILY active Not Available Not Available Not Available pantoprazole 40 mg tablet,delay ed release TAKE 1 TABLET BY MOUTH IN THE MORNING AND 1 BEFORE BEDTIME active Not Available Not Available No t Available ondansetron 4 mg disintegrati ng tablet INSERT 1 TABLET BY MOUTH/PER TUBE ROUTE EVERY 6 HOURS NEEDED FOR NAUSEA OR VOMITING (1ST LINE FOR NAUSEA/VOMI TING) FOR UP TO 30 DAYS active Not Available Not Available No t Available amoxicillin 875 mg-potassium clavulanate 125 mg tablet TAKE 1 TABLET BY MOUTH TWICE DAILY FOR 14 DAYS active Not Available Not Available No t Available metoprolol tartrate 25 mg tablet TAKE 1 TABLET BY MOUTH TWICE DAILY AT 9 AM AND 9 PM active Not Available Not Available Not Available Eliquis 5 mg tablet TAKE 1 TABLET BY MOUTH IN THE MORNING AND 1 BEFORE BEDTIME . DO ALL THIS FOR 30 DAYS. INDICATIONS : ATRIAL FIBRILLATIO N active Not Available Not Available No t Available Vitals Date Recorded Body weight Heart rate Respiratory rate Body temperature Oxygen saturation Oxygen saturation in Arterial blood by Pulse oximetry Systolic And Diastolic Provider Name and Address Organization Details Last Updated DateTime 5 44146.0 4 g 82 /min 18 /min 98.3 [degF] 97 % 97 % 110/60 mm[Hg] [facility] 5 13:03:57 Date Recorded Body weight Heart rate Respiratory rate Body temperature Oxygen saturation Oxygen saturation in Arterial blood by Pulse oximetry Systolic And Diastolic Provider Name and Address Organization Details Last Updated DateTime 5 14036.4 1 g 91 /min 20 /min 97.4 [degF] 99 % 99 % 122/90 mm[Hg] [facility] 5 12:44:59 Social History None recorded. Functional Status None recorded. Mental Status None recorded. Family History Nothing Reported. Medical History No medical history recorded. Gynecological HistoryNo gynecological history recorded. Obstetrics History GPAL:G 0 P 0 0 0 0 Immunizations Vaccine Type Date Status Note Provider Nam e and Address Organization Details Recorded Time Influenza, split virus, quadrivalent, PF 03/16/2020 completed Not Available [facility] 5 11:50:16 COVID-19, mRNA, LNP-S, PF, 100 mcg/0.5mL dose or 50 mcg/0.25mL dose 07/27/2020 completed Not Available [facility] 5 11:50:16 Past Encounters Encounter ID Performer Location Encounter Start Date Encounter Closed Date Diagnosis/Indication Diagnosis SNOMED-CT Code Diagnosis ICD10 Code Diagnosis IMO Codes Diagnosis Note [id number] Brady Ahuja DO [facility] ([facility]) [address] [place] [address] 12/14/2024 12:13:05 12/19/2024 17:35:48 Post-discharge follow-up 049407996 Z09 [id number] Clostridiu m difficile diarrhea 8886329316 102 A04.72 505165 History of colostomy 161 863792 Z93.3 388869 Wound of abdomen 0301078 03 S31.109A 43793282 Hypokalemia 62773219 E87 .6 [id number] Brady Ahuja DO [facility] ([facility]) [address] [place] [address] 12/21/2024 11:50:07 12/22/2024 10:51:51 Clostridium difficile diarrhea 3697796811 102 A04.72 988045 Wound of abdomen 7996190 03 S31.109A 20035798 Paroxysmal atrial fibrillation 093311291 I48.0 52918 Gastroesop hageal reflux disease without esophagitis 283746736 K21.9 703148 Decrease in appetite 643 78880 R63.0 589229 Health Concerns Section Related Observation LastModified by Organization Detai ls LastModified Time None Recorded Concern Status LastModified by Organization Details LastModified Time None Recorded Advance Directives Directive None Recorded Payers Insurance Date Sequence Insurance Name Policy Number Policy Bazan Covered Member ID Bazan Member ID Guarantor Name 01/09/2025 [place] - [facility] (MEDICARE) Dianelys Reagan [id number] Dianelys Reagan 01/09/2025 1 [place] S Dianelys Reagan [id number] Dianelys Reagan Notes Date Note Type Note Provider Name and Address Organization Details Recorded Time 12/14/2024 text/html Care Management - GeneralReported by PatientHPIFor prognosis, patient reportsexpected outcome: improveandprognosis: moderate. For context, patient reportsnot current smoker. For medication therapy, patient reportscompliant with follow-up visits.ROS as noted in the HPI New admit to SNF after hospital stay Brady Ahuja [address] [place] [address], [phone], [facility] 12/19/2024 15:45:13 12/21/2024 text/html Care Management - GeneralReported by PatientHPIFor prognosis, patient reportsexpected outcome: improveandprognosis: moderate. For context, patient reportsnot current smoker. For medication therapy, patient reportscompliant with follow-up visits.ROS as noted in the HPI no complaints per staff or pt Brady Ahuja, DO [address] [place] [address], [phone], [facility] [place] [facility] 12/21/2024 14:59:19 OBGyn Episode No OBEpisode recorded.
--- OUTSIDE RECORDS SUMMARY | 2025-02-03 22:15 | XMS_ITS | Encounter Summary ---
Author Organization [facility] Address [address] [place] [address] Care Team Providers Care Enroute Controller Name Role Phone Non-Staff, Physician Primary Care Provider Unava ilable Reason for Referral * Outpatient Services (Routine) - Closed Specialty Diagnoses / Procedures Referred By Rubens brooks Referred To Contact Diagnoses Belchings Intractable hiccups Procedures CT CHEST ABDOMEN PELVIS W CONT Nancy Sanchez MD NO ADDRESS ON FILE Referral ID Status Reason Start Date Expiration Date Visits Re quested Visits Authorized [id number] Closed 07/20/2012 08/20/2013 1 1 Encounter Details Date Type Department Care Team (Latest Contact Info) Description 07/20/[address] 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
[2025-02-03 22:19] VITALS: BP 123/76; PULSE 96; RESP 16; TEMP 36.7; O2SAT 97
--- NOTE | 2025-02-03 22:23 | XRR_ITS ---
PROCEDURE INFORMATION: Exam: XR Complete Acute Abdomen Series Including Chest Exam date and time: 02/03/2025 10:26 PM Age: 74 years old Clinical indication: Nausea and vomiting and other: SOB; Prior surgery; Surgery date: 6+ months; Surgery type: Gb. G tube. Colostomy. Hysterectomy. SOB with n/v; Additional info: Short of breath TECHNIQUE: Imaging protocol: Radiologic exam. Complete acute abdomen series, including 2 or more views of the abdomen and a single view chest. COMPARISON: CR (ABDOMEN, ) 01/08/2025 3:50 PM FINDINGS: Tubes, catheters and devices: G-tube overlies the gastric bubble. Lungs: Lungs clear. Pleural spaces: Normal. No pleural effusions. No pneumothorax. Heart/Mediastinum: Normal. No cardiomegaly. Gastrointestinal tract: Nonobstructive bowel gas pattern. Intraperitoneal space: Surgical clips upper abdomen. Bones/joints: Degenerative changes thoracolumbar spine. Soft tissues: Normal. Other findings: No radiographic evidence of acute abnormality. XR/XR acute abdomen series [id number] IMPRESSION: No radiographic evidence of acute abnormality.
[2025-02-03 22:47] LABS: Hematocrit 33.5 % (36-47); Hemoglobin 11.00 g/dL (11.27-16.99); Mean Corpuscular HGB Conc 32.8 g/dL (30-55); Mean Corpuscular Hemoglobin 28.9 pg (27-33); Mean Corpuscular Volume 88.2 fl (85-98); Nucleated Red Blood Cells % 0 %; Platelet Count 361 10^3/cmm (157-399); Red Blood Count 3.80 10^6/uL (3.85-5.65); White Blood Count 13.71 10^3/uL (3.29-11.43)
[2025-02-03 23:13] LABS: Alanine Aminotransferase 64 U/L (0-33); Albumin Level 3.1 g/dL (3.5-5.2); Alkaline Phosphatase 103 U/L (35-105); Anion Gap 23.9 (5-19); Aspartate Amino Transferase 48 U/L (0-32); Blood Urea Nitrogen 11 mg/dL (8-23); Calcium 8.1 mg/dL (8.5-10.5); Carbon Dioxide 18 mmol/L (22-29); Chloride 101 mmol/L (98-107); Globulin 2.8 g/dL (1.3-4.6); Glucose 102 mg/dL (65-115); Osmolality Calculated 290 mOsm/kg (285-295); Sodium 140 mmol/L (136-145); Total Protein 5.9 g/dL (6.6-8.7)
--- NOTE | 2025-02-03 23:14 | W.ED.NAVMDI ---
HPI - Nausea/Vomiting/Diarrhea General: Chief complaint: Nausea/Vomiting/Diarrhea Stated complaint: n/v Time Seen by Provider: 02/03/25 22:07 History of Present Illness: Patient is a 74-year-old female, complex history, recent colovesical fistula requiring diverting colostomy after diverticulitis, recently at [facility] for such surgery, and recently here in January, December, and November, presents with throwing up 2 nights ago, with concern of aspiration. She complains of minimal shortness of breath. No other complaints today. No fevers. Associated nausea: Yes (minimal) Associated symtoms: Reports nausea (minimal); Denies anxiety, change in vision, chest pain, dizziness, dysuria, headache(s) or palpitations Related Data Home Medications ?Medication ?Instructions ?Recorded ?Confirmed ondansetron 4 mg disintegrating See Rx Instructions .Route .COMPLEX 11/15/24 01/05/25 tablet acetaminophen 325 mg tablet 650 mg PO QID PRN Fever Or Pain 01/05/25 01/05/25 (Tylenol) apixaban 5 mg tablet (Eliquis) 5 mg PO BID 01/05/25 01/05/25 bisacodyl 10 mg rectal suppository 10 mg OH DAILY PRN Constipation 01/05/25 01/05/25 dicyclomine 10 mg capsule 10 mg PO BID 01/05/25 01/05/25 docusate sodium 100 mg capsule 100 mg PO DAILY 01/05/25 01/05/25 guaifenesin 100 mg/5 mL oral liquid 300 mg PO Q4H PRN Cough 01/05/25 01/05/25 hydrocodone 5 mg-acetaminophen 325 1 tab PO Q6H 01/05/25 01/05/25 mg tablet ipratropium 0.5 mg-albuterol 3 mg 3 ml inhalation Q6H PRN Shortness 01/05/25 01/05/25 (2.5 mg base)/3 mL nebulization Of Breath Or Wheezing soln levofloxacin 500 mg tablet 500 mg PO DAILY 01/05/25 01/05/25 magnesium citrate 298 ml PO DAILY PRN Constipation 01/05/25 01/05/25 magnesium hydroxide 400 mg/5 mL 30 ml PO DAILY PRN Constipation 01/05/25 01/05/25 oral suspension (Milk of Magnesia) metoclopramide HCl 10 mg tablet 10 mg PO Q6H PRN Nausea And 01/05/25 01/05/25 (Reglan) Vomiting omeprazole 20 mg tablet,delayed 20 mg PO DAILY 01/05/25 01/05/25 release polyethylene glycol 3350 17 17 g PO DAILY 01/05/25 01/05/25 gram/dose oral powder polyethylene glycol 3350 17 17 g PO DAILY 01/05/25 01/05/25 gram/dose oral powder (Miralax) scopolamine base 1 mg over 3 days 1 patch transdermal Q3D PRN Nausea 01/05/25 01/05/25 transdermal patch And Vomiting sodium phosphates 19 gram-7 118 ml OH DAILY PRN Constipation 01/05/25 01/05/25 gram/118 mL enema (Fleet Enema) white petrolatum-mineral oil 83 1 applic ophthalmic (eye) DAILY 01/05/25 01/05/25 %-15 % eye ointment PRN Dry Eyes Previous Rx's ?Medication ?Instructions ?Recorded potassium chloride 20 mEq/15 mL 10 meq (7.5 mL) PO BID #450 mL 02/03/25 oral liquid Allergies Allergy/AdvReac Type Severity Reaction Status Date / Time morphine Allergy Unknown HIVES Verified 08/08/24 11:39 oxycodone Allergy Unknown HIVES Verified 08/08/24 11:39 Review of Systems General: Reports: 10 or more systems reviewed and unremarkable except in HPI and below Const: Denies: fever(s), chills or body aches Eyes: Denies: change in vision, blurry vision or photophobia ENMT: Reports: hoarseness; Denies: throat pain, enlarged tonsils, odynophagia or nasal congestion Card: Denies: chest pain, palpitations, irregular heart rhythm, edema, swelling of feet/ankles, lightheadedness, pre-syncope, dyspnea on exertion or orthopnea Resp: Reports: dyspnea; Denies: productive cough, non-productive cough, wheezing, stridor, pain on inspiration, change in phlegm color, hemoptysis or chest congestion GI: Reports: abdominal pain and nausea (minimal); Denies: vomiting, hematemesis, coffee ground emesis, dysphagia, heartburn, diarrhea, constipation, GI cramping, change in stool character, hematochezia or melena : Denies: flank pain, difficulty voiding, dysuria, urinary frequency, urinary urgency, urinary hesitancy or hematuria Musc: Denies: neck pain, back pain, extremity pain, joint swelling, joint warmth or deformity Neuro: Denies: headache(s), numbness in extremities, weakness in extremities, sensory changes, difficulty walking, frequent falls, dizziness, vertigo, behavioral changes, Slurred speech present or seizure-like activity Psych: Denies: anxiety, depression, suicidal ideation or homicidal ideation Endo: Denies: polyuria, polydipsia, tired all the time, cold intolerance or hot flashes Dinesh/Lymph: Denies: easy bruising or easy bleeding PFSH ED PFSH: Medical History (Updated 02/03/25 @ 23:19 by CANDIS Arellano) Colovesical fistula Chronic neck and back pain Chronic nausea Encounter for long-term opiate analgesic use Hypertension Irritable bowel syndrome Spondylolisthesis, cervical region Surgical History (Updated 01/06/25 @ 13:45 by Byron Goodwin MD) Status post colostomy History of cholecystectomy History of lumbar surgery History of carpal tunnel surgery History of knee replacement S/P rotator cuff repair History of hysterectomy Family History Other Cancer Social History Smoking and tobacco/nicotine status: never used tobacco/nicotine Second hand smoke exposure: No Alcohol intake: never Substance/Drug Use: never Household members: spouse Housing: House Physical Exam Const: COMMON NORMALS: no acute distress, average body habitus and patient oriented x3 HENMT: COMMON NORMALS: normocephalic and atraumatic HEAD & SCALP: normocephalic and atraumatic Lymph: LYMPHATIC: no lymphadenopathy noted Chest: COMMONS NORMALS: normal inspection of the chest Resp: COMMON NORMALS: normal respiratory effort, No retractions and clear to auscultation bilaterally AUSCULTATION: clear to auscultation bilaterally Cardio: COMMON NORMALS: regular rate and regular rhythm RATE: regular rate RHYTHM: regular rhythm GI: COMMON NORMALS: Normal to inspection, nondistended, normoactive bowel sounds present and Soft to palpation PALPATION: Yes Soft to palpation OTHER: Left lower quadrant diverting colostomy. Colovesical cutaneous fistula appears midline to colostomy. No redness. Stool in colostomy bag. Normal bowel sounds. Nontender. Benign abdomen. : COMMON NORMALS: Yes no CVA tenderness BLADDER/KIDNEY EXAM: Yes no CVA tenderness Back/Pelvis: COMMON NORMALS: no CVA tenderness Neuro: COMMON NORMALS: patient oriented x3 Psych: COMMON NORMALS: mental status grossly normal, Normal thought process present (Poor memory, consistent with previous chart entries), cooperative, normal affect, speech normal and activity/motor behavior normal ACTIVITY/MOTOR BEHAVIOR: Yes appropriate eye contact SPEECH: Yes normal speech THOUGHT PROCESS: Normal thought process present (Poor memory, consistent with previous chart entries) Course Vital Signs: Vital signs: Vital Signs Temperature 98.1 F 02/03/25 22:19 Pulse Rate 105 H 02/04/25 01:30 Respiratory Rate 21 H 02/04/25 01:30 Blood Pressure 127/74 02/04/25 01:30 Pulse Oximetry 95 02/04/25 01:30 Oxygen Delivery Me thod Room Air 02/04/25 01:30 MDM - Nausea/Vomiting/Diarrhea Medical Decision Making Patient is a 74-year-old female with multiple medical issues recently that presented to the ED with nausea, vomiting with fear of aspiration that occurred 2 days ago. On evaluation in the ED, she did have nausea, and vomiting x 1. She did have association of metabolic acidosis, and potassium of 2.9, and CO2 of 11 as noted. Her potassium was replaced, and IV fluids were given. She states that she feels better. Her x-ray is negative for acute pathology. This appears consistent with viral in nature versus a gastroparesis associated with new PEG tube. Patient does not take p.o. fluids, and everything is per PEG tube. As patient was being discharged, and stated everything was fine, she then was upset regarding the fact she was being discharged, and stated she would like to stay. I do believe this is secondary gain. My concern with this patient as she may need rehab after her multiple hospital stays this summer, however she is not unsafe to be discharged as well. Nursing staff cannot get a hold of son or daughter at this time. She does not meet criteria for admission or even observation at this point. Her potassium has been replaced, her fluids have been replenished. She has been advised to return to ED for possible reevaluation if she cannot continues or has additional issues however this workup is complete. Lab Data 02/03/25 22:40 02/03/25 22:40 Radiology Impressions Chest/Abdomen X-ray 02/03/25 22:23 IMPRESSION: No radiographic evidence of acute abnormality. Laboratory Results WBC 13.71 10^3/uL (3.29-11.43) H 02/03/25 22:40 RBC 3.80 10^6/uL (3.85-5.65) L 02/03/25 22:40 Hgb 11.00 g/dL (11.27-16.99) L 02/03/25 22:40 Hct 33.5 % (36-47) L 02/03/25 22:40 MCV 88.2 fl (85-98) 02/03/25 22:40 MCH 28.9 pg (27-33) 02/03/25 22:40 MCHC 32.8 g/dL (30-55) 02/03/25 22:40 RDW 18.4 % (12.1-15.1) H 02/03/25 22:40 Plt Count 361 10^3/cmm (157-399) 02/03/25 22:40 MPV 10.0 fL (7.4-10.4) 02/03/25 22:40 Neut % (Auto) 82.1 % 02/03/25 22:40 Lymph % (Auto) 9.2 % 02/03/25 22:40 Dupage % (Auto) 7.1 % 02/03/25 22:40 Eos % (Auto) 0.7 % 02/03/25 22:40 Baso % (Auto) 0.5 % 02/03/25 22:40 Neut # (Auto) 11.26 10^3/uL (1.8-7.7) H 02/03/25 22:40 Lymph # (Auto) 1.3 10^3/uL (0.8-4.8) 02/03/25 22:40 Dupage # (Auto) 1.0 10^3/uL (0.2-0.9) H 02/03/25 22:40 Eos # (Auto) 0.1 10^3/uL (0.0-0.8) 02/03/25 22:40 Baso # (Auto) 0.1 10^3/uL (0.0-0.1) 02/03/25 22:40 Nucleated RBC % (auto) 0 % 02/03/25 22:40 Nucleated RBCs # 0.0 /100WBC 02/03/25 22:40 Sodium 140 mmol/L (136-145) 02/03/25 22:40 Potassium 2.9 mmol/L (3.5-5.1) L 02/03/25 22:40 Chloride 101 mmol/L (98-107) 02/03/25 22:40 Carbon Dioxide 18 mmol/L (22-29) L 02/03/25 22:40 Anion Gap 23.9 (5-19) H 02/03/25 22:40 BUN 11 mg/dL (8-23) 02/03/25 22:40 Creatinine 0.4 mg/dL (0.5-0.9) L 02/03/25 22:40 GFR Calculation Not Reportable 02/03/25 22:40 Glucose 102 mg/dL (65-115) 02/03/25 22:40 Calculated Osmolality 290 mOsm/kg (285-295) 02/03/25 22:40 Calcium 8.1 mg/dL (8.5-10.5) L 02/03/25 22:40 Total Bilirubin 0.6 mg/dL (0.15-1.2) 02/03/25 22:40 AST 48 U/L (0-32) H 02/03/25 22:40 ALT 64 U/L (0-33) H 02/03/25 22:40 Alkaline Phosphatase 103 U/L (35-105) 02/03/25 22:40 Total Protein 5.9 g/dL (6.6-8.7) L 02/03/25 22:40 Albumin 3.1 g/dL (3.5-5.2) L 02/03/25 22:40 Globulin 2.8 g/dL (1.3-4.6) 02/03/25 22:40 Procalcitonin 0.09 ng/mL (0-0.5) 02/03/25 22:40 All radiology interpretation(s) finalized by discharge Discharge Plan Discharge Patient Disposition: Home Clinical Impression: Gastroenteritis Condition: Stable Prescriptions: New potassium chloride 20 mEq/15 mL liquid 10 meq PO BID Qty: 450 0RF No Action ondansetron 4 mg tablet,disintegrating See Rx Instructions .ROUTE .COMPLEX Rx Instructions: INSERT 1 TABLET BY MOUTH/PER TUBE ROUTE EVERY 6 HOURS NEEDED FOR NAUSEA OR VOMITING (1ST LINE FOR NAUSEA/VOMITING) FOR UP TO 30 DAYS hydrocodone-acetaminophen 5-325 mg tablet 1 tab PO Q6H acetaminophen [Tylenol] 325 mg Tablet 650 mg PO QID PRN (Reason: Fever Or Pain) ipratropium-albuterol 0.5 mg-3 mg(2.5 mg base)/3 mL Solution For Nebulization 3 ml INHALATION Q6H PRN (Reason: Shortness Of Breath Or Wheezing) guaifenesin [Tussin Cough] 100 mg/5 mL Liquid 300 mg PO Q4H PRN (Reason: Cough) magnesium hydroxide [Milk of Magnesia] 400 mg/5 mL Suspension 30 ml PO DAILY PRN (Reason: Constipation) bisacodyl 10 mg Suppository 10 mg OH DAILY PRN (Reason: Constipation) Fleet Enema 19-7 gram/118 mL Enema 118 ml OH DAILY PRN (Reason: Constipation) docusate sodium 100 mg Capsule 100 mg PO DAILY magnesium citrate Solution 298 ml PO DAILY PRN (Reason: Constipation) polyethylene glycol 3350 [GlycoLax] 17 gram/dose Powder 17 g PO DAILY polyethylene glycol 3350 [Miralax] 17 gram/dose Powder 17 g PO DAILY levofloxacin 500 mg Tablet 500 mg PO DAILY scopolamine base 1 mg over 3 days Patch 3 Day 1 patch TRANSDERMAL Q3D PRN (Reason: Nausea And Vomiting) dicyclomine 10 mg Capsule 10 mg PO BID metoclopramide HCl [Reglan] 10 mg Tablet 10 mg PO Q6H PRN (Reason: Nausea And Vomiting) Artificial Tears (danette/min) 83-15 % Ointment 1 applic OPHTHALMIC (EYE) DAILY PRN (Reason: Dry Eyes) omeprazole 20 mg Tablet,Delayed Release (Dr/Ec) 20 mg PO DAILY Eliquis 5 mg tablet 5 mg PO BID Discharge Orders: Discharge ED (Routine); Ordered 02/03/25 Ordered By: Yolanda Mckenna Referrals: Emanuel Lucia, PERINATAL EDUCATOR [Primary Care Provider, Family Practice] Discharge Diet: Full LIquid Discharge Activity: Resume usual activity Patient Instructions: Gastroenteritis (ED), Patient Portal & Pollo Instructions Activity Restrictions/Additional Instructions: - Clear liquid diet until your stomach is settled then may advance to a full liquid diet - Call your primary care physician on Thursday for a follow-up -Potassium was sent to your pharmacy to take twice a day. You will need to call your physician on Thursday, obtain labs to see if you need to continue your potassium. - Return to ED if you do have worsening symptoms or fever greater 100.4 ?F Print Language: Armenian Coding Level of Care Code ED Route Deliverer for Vicky Downing
[2025-02-03 23:20] LABS: Procalcitonin 0.09 ng/mL (0-0.5)
[2025-02-03 23:36] LABS: Creatinine Clr Calc Pharmacy 65.6748
[2025-02-03 23:38] LABS: Potassium 2.9 mmol/L (3.5-5.1)
[2025-02-03 23:46] VITALS: BP 130/68; PULSE 109; RESP 29
[2025-02-04 00:02] VITALS: BP 145/109; PULSE 107; RESP 28
[2025-02-04] MEDS: ondansetron 2 mg/ML SDV 2 mL 4 MG IVP (00:23)
[2025-02-04] MEDS: potassium chloride oral liq 20 mEq/15 mL UDC 40 MEQ PEG-TUBE (00:23)
[2025-02-04 01:00] VITALS: BP 109/59; PULSE 103; O2SAT 93
[2025-02-04 01:30] VITALS: BP 127/74; PULSE 105; RESP 21; O2SAT 95
[2025-02-04] MEDS: potassium chloride oral liq 20 mEq/15 mL UDC 40 MEQ PO (03:10)
[2025-02-04 03:42] VITALS: BP 141/90; PULSE 104; RESP 20; O2SAT 93
[2025-02-04 03:44] VITALS: BP 141/90; PULSE 105; RESP 21; O2SAT 94
== END 2025-02-04 03:44 | disposition home or self-care (01) ==
PROVIDERS: Emergency Provider Physician Assistant; PCP Registered Nurse
DX: K52.9 Noninfective gastroenteritis and colitis, unspecified (principal); Z79.01 Long term (current) use of anticoagulants; I10 Essential (primary) hypertension
CPT/HCPCS: 36415; 74022; 80053; 84145; 85025; 96361; 96374; 99284; J2405; J7120; J9999

== ENCOUNTER 2025-04-10 23:09 | Inpatient (IN) | payer MEDICARE, SELFPAY ==
[2025-04-10 23:11] VITALS: BP 127/88; PULSE 118; RESP 24; TEMP 36.4; O2SAT 100; BMI 21.2
--- NOTE | 2025-04-10 23:14 | XRR_ITS ---
PROCEDURE INFORMATION: Exam: XR Abdomen Exam date and time: 04/10/2025 11:27 PM Age: 75 years old Clinical indication: Abdominal pain; Prior surgery; Surgery date: 6+ months; Surgery type: Colostomy, peg tube, lumbar, hysterectomy, gallbladder TECHNIQUE: Imaging protocol: Radiologic exam of the abdomen. Views: 2 Views. Upright and supine views. COMPARISON: CT chest abd pel w con* 09/08/2019 2:00 AM FINDINGS: Tubes, catheters and devices: Percutaneous gastric tube tip over the stomach in the left upper quadrant. Gastrointestinal tract: Normal. No bowel dilation. Intraperitoneal space: Normal. No free air. Bones/joints: Unremarkable for age. XR/XR acute abdomen series 71724 IMPRESSION: Percutaneous gastric tube tip over the stomach in the left upper quadrant.
--- NOTE | 2025-04-10 23:14 | ECG_ITS ---
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 Measurements Intervals [place] Rate: 104 P: 66 WI: 168 QRS: -71 QRSD: 101 T: 82 QT: 373 QTc: 492 Interpretive Statements SINUS TACHYCARDIA WITH OCCASIONAL VENTRICULAR PREMATURE COMPLEXES LEFT AXIS DEVIATION [QRS AXIS < -30] INCOMPLETE RIGHT BUNDLE BRANCH BLOCK [90+ ms QRS DURATION, TERMINAL R IN V1/V2, 40+ ms S IN I/aVL/V4/V5/V6] POSSIBLE ANTERIOR MYOCARDIAL INFARCTION , OF INDETERMINATE AGE [30 ms Q WAVE IN V3/V4, OR R < 0.2 mV IN V4] Compared to ECG 01/07/2025 13:37:52 Ventricular premature complex(es) now present T-wave abnormality no longer present Possible ischemia no longer present LOW VOLTAGE NO LONGER PRESENT Electronically Signed On 04-12-2025 22:44:18 REMEDIATION PROJECT ENGINEER by Doyle Farooq M.D. [email or web address]
--- OUTSIDE RECORDS SUMMARY | 2025-04-10 23:15 | XMS_ITS | Encounter Summary ---
Author Organization [facility] Address [address] [place] [address] Care Team Providers Care Supervisor Drying And Softening Name Role Phone Non-Staff, Physician Primary Care Provider Unava ilable Encounter Details Date Type Department Care Team (Latest Contact Info) Description 06/22/2000 Outpatient Historical [facility] Geraldo Kessler MD [address] [address] Follow-up examination, following unspecified surgery (Primary Dx) Social History Tobacco Use Types Packs/Day Years Used Date Smoking Tobacco: Never Assessed Comments Unknown Sex and Gender Information Value Date Recorded Sex Assigned at Not on file Legal Sex Female 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
--- OUTSIDE RECORDS SUMMARY | 2025-04-10 23:15 | XMS_ITS | Continuity of Care Document ---
Author Organization [facility] Melody, [place], [facility] ([facility]) Address [address] [place] [address] Assessment No assessment recorded. Plan of Treatment [...] Modified By Organization Details Last Modified Time 03/08/2025 [id number] Records reviewed . Admitted with hematemesis and melena in colostomy. Required CPR. Found to have viktor in urine, tx with fluconazole. Positive for C diff and tx with vanc. Started on keppra for suspected seizure. On Midodrine, blood pressure still on lower side. Labs on Thursday. f/u next week. Not available 03/08/2025 12:17:46 Reason for Referral None Reported. Problems Name Problem SNOMED Code Status Onset Date Resolution Date Notes Provider Name and Address Organization Details Recorded Time Post-disch arge follow-up 324618363 Active 2024 KECIA beard [facility], FayeCLottie 5 13:00:23 Clostridiu m difficile diarrhea 8502287425814 Active 2024 KECIA beard [facility], FayeCLottie 13:00:23 History of colostomy 430080546 [facility] W[facility] of [facility] 826526106 [facility] [place] [facility] Hypokalemi a 54633094 [facility] [place] [facility]:28 Problem Notes None recorded. Medical Equipment None Reported. Medications Name Sig Start Date Stop Date Status Note LastModified by Organization Details LastModified Time hydrocodone 5 mg-acetaminoph en 325 mg tablet Take 1 tablet every 6 hours by oral route as needed for 30 days. 2024 active Not Available Not Available Not Avai lable ondansetron HCl 4 mg tablet TAKE 1 TABLET BY MOUTH EVERY 8 HOURS NEEDED active Not Available Not Available No t Available atenolol 25 mg tablet TAKE 1 TABLET BY MOUTH IN THE MORNING FOR 30 DAYS active Not Available Not Available No t Available potassium chloride 20 mEq/15 mL oral liquid TAKE 7.5ML BY MOUTH TWICE DAILY active Not Available Not Available No t Available bethanechol chloride 25 mg tablet TAKE 1/2 (ONE-HALF ) TABLET BY MOUTH THREE TIMES DAILY active Not Available Not Available No t Available dronabinol 2.5 mg capsule TAKE 1 CAPSULE BY MOUTH TWICE DAILY active Not Available Not Available No t Available pantoprazole 40 mg tablet,delayed release TAKE 1 TABLET BY MOUTH IN THE MORNING AND 1 BEFORE BEDTIME active Not Available Not Available No t Available lansoprazole 30 mg capsule,delaye d release TAKE 1 CAPSULE BY MOUTH TWICE DAILY active Not Available Not Available No t Available omeprazole 20 mg capsule,delaye d release TAKE 1 CAPSULE BY MOUTH ONCE DAILY active Not Available Not Available No t Available levetiracetam 750 mg tablet TAKE 1 TABLET BY MOUTH TWICE DAILY active Not Available Not Available No t Available midodrine 2.5 mg tablet TAKE 1 TABLET BY MOUTH TWICE DAILY active Not Available Not Available No t Available lorazepam 1 mg tablet TAKE 1 TABLET BY MOUTH EVERY 6 HOURS NEEDED active Not Available Not Available No t Available scopolamine 1 mg over [address] PATCH BEHIND THE EAR EVERY 3 DAYS active Not Available Not Available No t Available ondansetron 4 mg disintegrating tablet INSERT 1 TABLET BY MOUTH/PER TUBE ROUTE EVERY 6 HOURS NEEDED FOR NAUSEA OR VOMITING (1ST LINE FOR NAUSEA/VO MITING) FOR UP TO 30 DAYS active Not Available Not Available No t Available amoxicillin 875 mg-potassium clavulanate 125 mg tablet TAKE 1 TABLET BY MOUTH TWICE DAILY FOR 14 DAYS active Not Available Not Available No t Available metoprolol tartrate 25 mg tablet TAKE 1 TABLET BY MOUTH TWICE DAILY AT 9 AM AND 9 PM active Not Available Not Available No t Available mirtazapine 7.5 mg tablet TAKE 1 TABLET BY MOUTH ONCE DAILY active Not Available Not Available No t Available Eliquis 5 mg tablet TAKE 1 TABLET BY MOUTH TWICE DAILY active Not Available Not Available No t Available Vitals Date Recorded Body weight Heart rate Respiratory rate Body temperature Oxygen saturation Systolic And Diastolic Provider Name and Address Organization Details Last Updated DateTime 5 86693.3 4 g 78 /min 20 /min 98.2 [degF] 94 % 110/67 mm[Hg] KECIA FISHER [facility], [facility] 5 11:41:12 Social History None recorded. Functional Status None recorded. Mental Status None recorded. Family History Nothing Reported. Medical History No medical history recorded. Gynecological HistoryNo gynecological history recorded. Obstetrics History GPAL:G 0 P 0 0 0 0 Immunizations Vaccine Type Date Status Note Provider Nam e and Address Organization Details Recorded Time Influenza, split virus, quadrivalent, PF 03/16/2020 completed Not Available [facility] 5 11:48:27 COVID-19, mRNA, LNP-S, PF, 100 mcg/0.5mL dose or 50 mcg/0.25mL dose 07/27/2020 completed Not Available [facility] 5 11:48:27 Past Encounters Encounter ID Performer Location Encounter Start Date Encounter Closed Date Diagnosis/Indication Diagnosis SNOMED-CT Code Diagnosis ICD10 Code Diagnosis IMO Codes Diagnosis Note [id number] Brady Ahuja DO [facility] ([facility]) [address] [place] [address] 03/08/2025 07:04:44 03/10/2025 17:05:56 Post-discharge follow-up [id number] Z09 [id number] Cardiac arrest 342454701 I46.9 3905 Metabolic encephalopathy 07903301 G93.41 754935 Acute deep venous thrombosis of right lower extremity 1445268253 41974 I82.401 62604140 Ischemia o f right lower extremity 5633942136 1117556 I99.8 11613424 Dysphagia 99017520 R13.1 0 08878370 Moderate p rotein energy malnutrition 604920129 E44.0 503895 Chronic gastrointestinal hemorrhage 46935293 K92.2 469522 Health Concerns Section Related Observation LastModified by Organization Detai ls LastModified Time None Recorded Concern Status LastModified by Organization Details LastModified Time None Recorded Payers Encounter Date Sequence Insurance Name Policy Number Policy Bazan Covered Member ID Bazan Member ID Guarantor Name 03/08/2025 1 [place]IC[place] Dianelys Reagan [id number] Dianelys Reagan Notes Date Note Type Note Provider Name and Address Organization Details Recorded Time 03/08/2025 text/html Care Management - GeneralReported by PatientHPIFor prognosis, patient reportsexpected outcome: improveandprognosis: moderate. For context, patient reportsnot current smoker. For medication therapy, patient reportscompliant with follow-up visits.ROS as noted in the [facility] re-admit hospital follow up Brady Ahuja DO [address] [place] [address], [phone], JOS[facility] - [facility] Adonay Oliver 03/08/2025 15:24:46 OBGyn Episode No OBEpisode recorded.
--- OUTSIDE RECORDS SUMMARY | 2025-04-10 23:15 | XMS_ITS | Encounter Summary ---
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
--- OUTSIDE RECORDS SUMMARY | 2025-04-10 23:15 | XMS_ITS | Encounter Summary ---
Author Organization [email or web address] [facility] Address [address] [place] [address] Care Team Providers Care Concession Manager Name Role Phone Non-Staff, Physician Primary Care Provider Unava ilable Encounter Details Date Type Department Care Team (Latest Contact Info) Description 05/11/2000 Outpatient Historical [facility] Geraldo Kessler MD [address] [facility] [address] [place] [address] Lipoma of other specified sites (Primary Dx) Social History Tobacco Use Types Packs/Day Years Used Date Smoking Tobacco: Never Assessed Comments Unknown Sex and Gender Information Value Date Recorded Sex Assigned at Not on file Legal Sex Female 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
--- OUTSIDE RECORDS SUMMARY | 2025-04-10 23:15 | XMS_ITS | Encounter Summary ---
Author Organization [facility] Address [address] [place] [address] Care Team Providers Care Sodium Chlorite Operator Name Role Phone Non-Staff, Physician Primary Care Provider Unava ilable Encounter Details Date Type Department Care Team (Latest Contact Info) Description 01/13/2006 Outpatient Historical [facility] Orthopedics- 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
--- OUTSIDE RECORDS SUMMARY | 2025-04-10 23:15 | XMS_ITS | Continuity of Care Document ---
Author Organization [facility] [place], [place], [facility] ([facility]) Address [address] [place] [address] Assessment No assessment recorded. Plan of Treatment [...] Modified By Organization Details Last Modified Time 03/15/2025 [id number] Planning to d/c home after short SNF stay after hospitalization Admitted with hematemesis and melena in colostomy. Required CPR. Found to have viktor in urine, tx with fluconazole. Positive for C diff and tx with vanc. Started on keppra for suspected seizure. On Midodrine. Will need home health eval and tx. F/u with pcp 7-14 days after d/c. [email or web address] Not available 03/15/2025 12:59:24 Reason for Referral None Reported. Problems Name Problem SNOMED Code Status Onset Date Resolution Date Notes Provider Name and Address Organization Details Recorded Time Post-disch arge follow-up 986594233 Active [facility]24 [facility] Clostridiu m difficile diarrhea 3386222231409 Active 2024 [facility]:23 History of colostomy 155994244 Active 2024 KECIA beard [facility], [place] 13:00:25 Wound of abdomen 310140043 [facility] [place] [facility] Hypokalemi a 65003431 [facility] [place] [facility]28 Problem Notes None recorded. Medical [...] Address Organization Details Last Updated DateTime 5 76342.3 4 g 90 /min 14 /min 98.3 [degF] 96 % 132/70 mm[Hg] KECIA JORGENSEN [facility], [facility] 5 12:55:48 Social History None recorded. Functional Status None recorded. Mental Status None recorded. Family History Nothing Reported. Medical History No medical history recorded. Gynecological HistoryNo gynecological history recorded. Obstetrics History GPAL:G 0 P 0 0 0 0 Immunizations Vaccine Type Date Status Note Provider Nam e and Address Organization Details Recorded Time Influenza, split virus, quadrivalent, PF 03/16/2020 completed Not Available [facility] 5 11:48:27 COVID-19, mRNA, LNP-S, PF, 100 mcg/0.5mL dose or 50 mcg/0.25mL dose 07/27/2020 completed Not Available [facility] 5 11:48:27 Past Encounters Encounter ID Performer Location Encounter Start Date Encounter Closed Date Diagnosis/Indication Diagnosis SNOMED-CT Code Diagnosis ICD10 Code Diagnosis IMO Codes Diagnosis Note [id number] Brady Ahuja DO [facility] ([facility]) [address] [place] [address] 03/08/2025 07:04:44 03/10/2025 17:05:56 Post-discharge follow-up 448823447 Z09 131903 Cardiac arrest 465412784 I46.9 3905 Metabolic encephalopathy 89565619 G93.41 192043 Acute deep venous thrombosis of right lower extremity 2169784866 14894 I82.401 58652737 Ischemia o f right lower extremity 8504533491 8025888 I99.8 52032824 Dysphagia 67933988 R13.1 0 14686985 Moderate p rotein energy malnutrition 880189098 E44.0 136951 Chronic gastrointestinal hemorrhage 12647728 K92.2 501655 [id number] Brady Ahuja DO [facility] ([facility]) [address] [place] [address] 03/15/2025 11:47:38 03/20/2025 13:27:18 History of colostomy 175336174 Z93.3 460330 Post-disch arge follow-up 152090207 Z09 647911 Hypokalemia 11284303 E87 .6 9791 Clostridiu m difficile diarrhea 2265834745 102 A04.72 149127 Wound of abdomen 4885938 03 S31.109A [id number] Health Concerns Section Related Observation LastModified by Organization Detai ls LastModified Time None Recorded Concern Status LastModified by Organization Details LastModified Time None Recorded Payers Encounter Date Sequence Insurance Name Policy Number Policy Bazan Covered Member ID Bazan Member ID Guarantor Name 03/15/2025 1 [place] Dianelys Tez [id number] Dianelys Reagan Notes Date Note Type Note Provider Name and Address Organization Details Recorded Time 03/15/2025 text/html Care Management - GeneralReported by PatientHPIFor prognosis, patient reportsexpected outcome: improveandprognosis: moderate. For context, patient reportsnot current smoker. For medication therapy, patient reportscompliant with follow-up visits.ROS as noted in the HPI visit for d/c orders, planning to go home with son. Brady Ahuja DO [address] [place] [address], [id number], JOSSIE Sevilla [facility], [place] 03/15/2025 14:11:08 OBGyn Episode No OBEpisode recorded.
--- OUTSIDE RECORDS SUMMARY | 2025-04-10 23:15 | XMS_ITS | Encounter Summary ---
Author Organization [facility] Address [address] [place] [address] Care Team Providers Care Clinical Support Associate Name Role Phone Non-Staff, Physician Primary Care Provider Unava ilable Encounter Details Date Type Department Care Team (Latest Contact Info) Description 01/17/[address] 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
--- OUTSIDE RECORDS SUMMARY | 2025-04-10 23:15 | XMS_ITS | Encounter Summary ---
Author Organization [facility] Address [address] [place] [address] Care Team Providers Care Director Of Revenue Cycle Management Name Role Phone Non-Staff, Physician Primary Care Provider Unava ilable Encounter Details Date Type Department Care Team (Latest Contact Info) Description 04/02/2001 Outpatient Historical [facility] Family Medicine- [place] [address] [place] [address] Wanda Castro MD NO ADDRESS ON FILE TENSION HEADACHE (Primary Dx); ANXIETY STATE NOS; BRIEF DEPRESSIVE REACT; ALLERGIC RHINITIS NOS Social History Tobacco Use Types Packs/Day Years Used Date Smoking Tobacco: Never Assessed Comments Unknown Sex and Gender Information Value Date Recorded Sex Assigned at Not on file Legal Sex Female 3:15 AM 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
--- OUTSIDE RECORDS SUMMARY | 2025-04-10 23:15 | XMS_ITS | Encounter Summary ---
Author Organization [facility] Address [address] [place] [address] Care Team Providers Care Form Tamping Machine Operator Name Role Phone Non-Staff, Physician Primary Care Provider Unava ilable Encounter Details Date Type Department Care Team (Latest Contact Info) Description 04/17/2000 Outpatient Historical [facility] Family Medicine- [place] [address] [place] [address] Gloria Sal NO ADDRESS ON FILE Excessive menstruation (Primary Dx); Screening for malignant neoplasm of the rectum; Need vaccination-viral disease Social History Tobacco Use Types Packs/Day Years Used Date Smoking Tobacco: Never Assessed Comments Unknown Sex and Gender Information Value Date Recorded Sex Assigned at Not on file 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 Gender Identity Not on file Sexual Orientation Not on file documented as of this encounter Plan of Treatment Not on file documented as of this encounter Visit Diagnoses Diagnosis Excessive menstruation- Primary Excessive or frequent menstruation Screening for malignant neoplasm of the rectum Need vaccination-viral disease Need for prophylactic vaccination and inoculation against other viral diseases documented in this encounter Care Teams Form Tamping Machine Operator Relationship Specialty Start Date End Date Non-Staff, Physician NO ADDRESS ON FILE PCP - General 08/30/13 documented as of this encounter
--- OUTSIDE RECORDS SUMMARY | 2025-04-10 23:15 | XMS_ITS | Encounter Summary ---
Author Organization [facility] Address [address] [place] [address] Care Team Providers Care Poultry Dresser Name Role Phone Non-Staff, Physician Primary Care Provider Unava ilable Encounter Details Date Type Department Care Team (Latest Contact Info) Description 11/25/2005 Outpatient Historical [facility] Orthopedics- [address] [place] [address] Sesar Rayo MD NO ADDRESS ON FILE Primary Localized Osteoarthrosis, Lower Leg (Primary Dx); Pain in Joint, Lower Leg Social History Tobacco Use Types Packs/Day Years Used Date Smoking Tobacco: Never Assessed Comments Unknown Sex and Gender Information Value Date Recorded Sex Assigned at Not on file Legal Sex Female 3:15 AM CLINICAL NUTRITIONIST Gender Identity Not on file Sexual Orientation Not on file documented as of this encounter Plan of Treatment Not on file documented as of this encounter Visit Diagnoses Diagnosis Primary localized osteoarthrosis, lower leg- Primary Pain in joint, lower leg documented in this encounter Care Teams Poultry Dresser Relationship Specialty Start Date End Date Non-Staff, Physician NO ADDRESS ON FILE PCP - General 08/30/13 documented as of this encounter
--- OUTSIDE RECORDS SUMMARY | 2025-04-10 23:15 | XMS_ITS | Encounter Summary ---
Author Organization [facility] Address [address] [place] [address] Care Team Providers Care Tucking Machine Operator Name Role Phone Non-Staff, Physician Primary Care Provider Unava ilable Encounter Details Date Type Department Care Team (Latest Contact Info) Description 09/27/2002 Outpatient Historical [facility] Family Medicine- [place] [address] [place] [address] Tereso Rees DO NO ADDRESS ON FILE HEADACHE (Primary Dx) Social History Tobacco Use Types Packs/Day Years Used Date Smoking Tobacco: Never Assessed Comments Unknown Sex and Gender Information Value Date Recorded Sex Assigned at Not on file 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
--- OUTSIDE RECORDS SUMMARY | 2025-04-10 23:16 | XMS_ITS | Encounter Summary ---
Author Organization [facility] Address [address] [place] [address] Care Team Providers Care Ocularist Name Role Phone Non-Staff, Physician Primary Care Provider Unava ilable Encounter Details Date Type Department Care Team (Latest Contact Info) Description 11/17/2005 Outpatient Historical [facility] Family Medicine- [place] [address] [place] [address] Wanda Castro MD NO ADDRESS ON FILE Pain in Joint, Lower Leg (Primary Dx); Asymptomatic Varicose Veins; Unspecified Essential Hypertension Social History Tobacco Use Types Packs/Day Years Used Date Smoking Tobacco: Never Assessed Comments Unknown Sex and Gender Information Value Date Recorded Sex Assigned at Not on file Legal Sex Female 3:15 AM INFORMATION CODER Gender Identity Not on file Sexual Orientation Not on file documented as of this encounter Plan of Treatment Not on file documented as of this encounter Visit Diagnoses Diagnosis Pain in joint, lower leg- Primary Asymptomatic varicose veins Uncomplicated varicose veins Unspecified essential hypertension documented in this encounter Care Teams Ocularist Relationship Specialty Start Date End Date Non-Staff, Physician NO ADDRESS ON FILE PCP - General 08/30/13 documented as of this encounter
--- OUTSIDE RECORDS SUMMARY | 2025-04-10 23:16 | XMS_ITS | Encounter Summary ---
Author Organization [facility] Address [address] [place] [address] Care Team Providers Care Vehicle Assembly Inspector Name Role Phone Non-Staff, Physician Primary Care Provider Unava ilable Encounter Details Date Type Department Care Team (Latest Contact Info) Description 12/16/2002 Outpatient Historical [facility] Family Medicine- [address] [place] [address] Wanda Castro MD NO ADDRESS ON FILE Plantar fibromatosis (Primary Dx); HYPERTENSION NOS Social History Tobacco Use Types Packs/Day Years Used Date Smoking Tobacco: Never Assessed Comments Unknown Sex and Gender Information Value Date Recorded Sex Assigned at Not on file 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
--- OUTSIDE RECORDS SUMMARY | 2025-04-10 23:16 | XMS_ITS | Encounter Summary ---
Author Organization [facility] Address [address] [place] [address] Care Team Providers Care Delivery Route Driver Name Role Phone Non-Staff, Physician Primary Care Provider Unava ilable Encounter Details Date Type Department Care Team (Latest Contact Info) Description 12/02/2005 Outpatient Historical [facility] [address] [place] [phone] Sesar Rayo MD NO ADDRESS ON FILE Pre-Operative Cardiovascular Examination (Primary Dx) Social History Tobacco Use Types Packs/Day Years Used Date Smoking Tobacco: Never Assessed Comments Unknown Sex and Gender Information Value Date Recorded Sex Assigned at Not on file 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 Gender Identity Not on file [...] URINE ORDERABLES Final Result Performing Organization Address [facility] Phone Number INTERFACE SYSTEM Refer to clinic/hospital [...] URINE ORDERABLES Final Result Performing Organization Address [facility] Phone Number INTERFACE SYSTEM Refer to clinic/hospital [...] ORDERABLES Final Re sult Performing Organization Address [facility] Phone Number INTERFACE SYSTEM Refer to clinic/hospital [...] ORDERABLES Final Res ult Performing Organization Address [facility] Phone Number INTERFACE SYSTEM Refer to clinic/hospital department documented in this encounter Visit Diagnoses Diagnosis Pre-operative cardiovascular examination- Primary documented in this encounter Care Teams Delivery Route Driver Relationship Specialty Start Date End Date Non-Staff, Physician NO ADDRESS ON FILE PCP - General 08/30/13 documented as of this encounter
--- OUTSIDE RECORDS SUMMARY | 2025-04-10 23:16 | XMS_ITS | Encounter Summary ---
Author Organization [facility] Address [address] [place] [address] Care Team Providers Care Liquor Maker Name Role Phone Non-Staff, Physician Primary Care Provider Unava ilable Encounter Details Date Type Department Care Team (Late st Contact Info) Description 04/12/2003 Outpatient Historical [facility] Family Medicine- [place] [address] [place] [phone] Social History Tobacco Use Types Packs/Day Years Used Date Smoking Tobacco: Never Assessed Comments Unknown Sex and Gender Information Value Date Recorded Sex Assigned at Not on file Legal Sex Female 3:15 AM PRESIDING STEWARD Gender Identity Not on file Sexual Orientation Not on file documented as of this encounter Plan of Treatment Not on file documented as of this encounter Visit Diagnoses Not on filedocumented in this encounter Care Teams Liquor Maker Relationship Specialty Start Date End Date Non-Staff, Physician NO ADDRESS ON FILE PCP - General 08/30/13 documented as of this encounter
--- OUTSIDE RECORDS SUMMARY | 2025-04-10 23:16 | XMS_ITS | Encounter Summary ---
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
--- OUTSIDE RECORDS SUMMARY | 2025-04-10 23:16 | XMS_ITS | Encounter Summary ---
Author Organization [facility] Address [address] [place] [address] Care Team Providers Care Marine Railway Operator Name Role Phone Non-Staff, Physician Primary Care Provider Unava ilable Encounter Details Date Type Department Care Team (Latest Contact Info) Description 09/07/2003 Outpatient Historical [facility] General Surgery [address] [address] [address] [place] [phone] [place] [address] [facility] [address] [place] [address] SURGERY FOLLOWUP, UNSPEC (Primary Dx); CHOLELITH W ACUTE GB DIS-NO OBSTR; Umbilical hernia Social History Tobacco Use Types Packs/Day Years Used Date Smoking Tobacco: Never Assessed Comments Unknown Sex and Gender Information Value Date Recorded Sex Assigned at Not on file 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 Gender Identity Not on file Sexual Orientation Not on file documented as of this encounter Plan of Treatment Not on file documented as of this encounter Visit Diagnoses Diagnosis Follow-up examination, following unspecified surgery- Primary Calculus of gallbladder with acute cholecystitis, without mention of obstruction Umbilical hernia Umbilical hernia without mention of obstruction or gangrene documented in this encounter Care Teams Marine Railway Operator Relationship Specialty Start Date End Date Non-Staff, Physician NO ADDRESS ON FILE PCP - General 08/30/13 documented as of this encounter
--- OUTSIDE RECORDS SUMMARY | 2025-04-10 23:16 | XMS_ITS | Encounter Summary ---
Author Organization [facility] Address [address] [place] [address] Care Team Providers Care Medical Representative Name Role Phone Non-Staff, Physician Primary Care Provider Unava ilable Encounter Details Date Type Department Care Team (Latest Contact Info) Description 03/09/2000 Outpatient Historical [facility] Family Medicine- [place] [address] [place] [address] Gloria Sal NO ADDRESS ON FILE Unspecified internal derangement of knee (Primary Dx) Social History Tobacco Use Types Packs/Day Years Used Date Smoking Tobacco: Never Assessed Comments Unknown Sex and Gender Information Value Date Recorded Sex Assigned at Not on file 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
--- OUTSIDE RECORDS SUMMARY | 2025-04-10 23:16 | XMS_ITS | Encounter Summary ---
Author Organization [email or web address] [facility] Address [address] [place] [address] Care Team Providers Care Human Resources Director Name Role Phone Non-Staff, Physician Primary [...] file Legal Sex Female 3:15 AM MANAGER PHARMACEUTICAL Gender Identity Not on file Sexual Orientation [...] POC GLUCOSE (12/23/2005 6:09 AM CDT) Pathologist [facility] GLUCOSE POC 189(H) 60 - 100 mg/dL INTERFACE SYSTEM 12/23/2005 6:09 AM CDT us Sesar Rayo MD POINT OF CARE TESTING Final Re sult INTERFACE SYSTEM Refer to clinic/hospital department * (ABNORMAL) CBC WITH DIFFERENTIAL (12/23/2005 5:05 AM CDT) Pathologist [facility] WBC 6.8 4.8 - 10.8 K/ul INTERFACE [...] Re sult Performing Organization Address [facility] Phone Number INTERFACE SYSTEM Refer to clinic/hospital department * (ABNORMAL) POC GLUCOSE (12/22/2005 8:47 PM CDT) GLUCOSE POC 135(H) 60 - 100 mg/dL INTERFACE SYSTEM COMMENT POC Follow Protocol INTERFACE SYSTEM 12/22/2005 8:47 PM CDT Sesar Rayo MD POINT OF CARE TESTING Final Re sult Performing Organization Address [facility] Phone Number INTERFACE SYSTEM Refer to clinic/hospital department * (ABNORMAL) POC GLUCOSE (12/22/2005 5:53 PM CDT) GLUCOSE POC 101(H) 60 - 100 mg/dL INTERFACE SYSTEM 12/22/2005 5:53 PM CDT Sesar Rayo MD POINT OF CARE TESTING Final Re sult Performing Organization Address [facility] Phone Number INTERFACE SYSTEM Refer to clinic/hospital department * (ABNORMAL) POC GLUCOSE (12/22/2005 11:35 AM CDT) GLUCOSE POC 123(H) 60 - 100 mg/dL INTERFACE SYSTEM 12/22/2005 11:3 5 AM CDT Sesar Rayo MD POINT OF CARE TESTING Final Re sult Performing Organization Address [facility] Phone Number INTERFACE SYSTEM Refer to clinic/hospital department * (ABNORMAL) POC GLUCOSE (12/22/2005 5:27 AM CDT) GLUCOSE POC 121(H) 60 - 100 mg/dL INTERFACE SYSTEM 12/22/2005 5:27 AM CDT us Sesar Rayo MD POINT OF CARE TESTING Final Re sult INTERFACE SYSTEM Refer to clinic/hospital department * (ABNORMAL) CBC WITHOUT DIFFERENTIAL (12/22/2005 5:05 AM CDT) Pathologist [facility] WBC 8.4 4.8 - 10.8 K/ul INTERFACE [...] ORDERABLES Final Re sult Performing Organization Address City/[facility]/ZIP Co de Phone Number INTERFACE SYSTEM Refer to clinic/hospital department * (ABNORMAL) POC GLUCOSE (12/21/2005 8:48 PM CDT) GLUCOSE POC 136(H) 60 - 100 mg/dL INTERFACE SYSTEM 12/21/2005 8:48 PM CDT Sesar Rayo MD POINT OF CARE TESTING Final Re sult Performing Organization Address [facility] Phone Number INTERFACE SYSTEM Refer to clinic/hospital department * (ABNORMAL) POC GLUCOSE (12/21/2005 5:27 PM CDT) GLUCOSE POC 133(H) 60 - 100 mg/dL INTERFACE SYSTEM 12/21/2005 5:27 PM CDT Sesar Rayo MD POINT OF CARE TESTING Final Re sult Performing Organization Address [facility] Phone Number INTERFACE SYSTEM Refer to clinic/hospital department * (ABNORMAL) POC GLUCOSE (12/21/2005 11:04 AM CDT) GLUCOSE POC 121(H) 60 - 100 mg/dL INTERFACE SYSTEM 12/21/2005 11:0 4 AM CDT Sesar Rayo MD POINT OF CARE TESTING Final Re sult Performing Organization Address [facility] Phone Number INTERFACE SYSTEM Refer to clinic/hospital department * (ABNORMAL) POC GLUCOSE (12/21/2005 5:37 AM CDT) GLUCOSE POC 137(H) 60 - 100 mg/dL INTERFACE SYSTEM 12/21/2005 5:37 AM CDT Sesar Rayo MD POINT OF CARE TESTING Final Re sult Performing Organization Address [facility] Phone Number INTERFACE SYSTEM Refer to clinic/hospital [...] Re sult Performing Organization Address [facility] Phone Number INTERFACE SYSTEM Refer to clinic/hospital department * (ABNORMAL) POC GLUCOSE (12/20/2005 8:52 PM CDT) GLUCOSE POC 112(H) 60 - 100 mg/dL INTERFACE SYSTEM 12/20/2005 8:52 PM CDT Sesar Rayo MD POINT OF CARE TESTING Final Re sult Performing Organization Address [facility] Phone Number INTERFACE SYSTEM Refer to clinic/hospital department * (ABNORMAL) POC GLUCOSE (12/20/2005 4:56 PM CDT) GLUCOSE POC 121(H) 60 - 100 mg/dL INTERFACE SYSTEM 12/20/2005 4:56 PM CDT Sesar Rayo MD POINT OF CARE TESTING Final Re sult Performing Organization Address [facility] Phone Number INTERFACE SYSTEM Refer to clinic/hospital department * (ABNORMAL) POC GLUCOSE (12/20/2005 12:06 PM CDT) GLUCOSE POC 127(H) 60 - 100 mg/dL INTERFACE SYSTEM 12/20/2005 12:0 6 PM CDT Sesar Rayo MD POINT OF CARE TESTING Final Re sult Performing Organization Address [facility] Phone Number INTERFACE SYSTEM Refer to clinic/hospital department * (ABNORMAL) POC GLUCOSE (12/20/2005 6:26 AM CDT) GLUCOSE POC 144(H) 60 - 100 mg/dL INTERFACE SYSTEM 12/20/2005 6:26 AM CDT Sesar Rayo MD POINT OF CARE TESTING Final Re sult Performing Organization Address [facility] Phone Number INTERFACE SYSTEM Refer to clinic/hospital [...] Res ult Performing Organization Address [facility] Phone Number INTERFACE SYSTEM Refer to clinic/hospital [...] Re sult Performing Organization Address [facility] Phone Number INTERFACE SYSTEM Refer to clinic/hospital department * (ABNORMAL) POC GLUCOSE (12/19/2005 8:42 PM CDT) GLUCOSE POC 123(H) 60 - 100 mg/dL INTERFACE SYSTEM 12/19/2005 8:42 PM CDT Sesar Rayo MD POINT OF CARE TESTING Final Re sult Performing Organization Address [facility] de Phone Number INTERFACE SYSTEM Refer to clinic/hospital department * (ABNORMAL) POC GLUCOSE (12/19/2005 5:01 PM CDT) GLUCOSE POC 134(H) 60 - 100 mg/dL INTERFACE SYSTEM 12/19/2005 5:01 PM CDT Sesar Rayo MD POINT OF CARE TESTING Final Re sult Performing Organization Address [facility] de Phone Number INTERFACE SYSTEM Refer to clinic/hospital department * (ABNORMAL) POC GLUCOSE (12/19/2005 12:04 PM CDT) GLUCOSE POC 148(H) 60 - 100 mg/dL INTERFACE SYSTEM 12/19/2005 12:0 4 PM CDT Sesar Rayo MD POINT OF CARE TESTING Final Re sult Performing Organization Address [facility] de Phone Number INTERFACE SYSTEM Refer to clinic/hospital department * (ABNORMAL) POC GLUCOSE (12/19/2005 5:49 AM CDT) GLUCOSE POC 196(H) 60 - 100 mg/dL INTERFACE SYSTEM 12/19/2005 5:49 AM CDT Sesar Rayo MD POINT OF CARE TESTING Final Re sult Performing Organization Address [facility] Phone Number INTERFACE SYSTEM Refer to clinic/hospital [...] Re sult Performing Organization Address [facility] Phone Number INTERFACE SYSTEM Refer to clinic/hospital [...] Res ult Performing Organization Address [facility] Phone Number INTERFACE SYSTEM Refer to clinic/hospital department * (ABNORMAL) POC GLUCOSE (12/18/2005 9:27 PM CDT) GLUCOSE POC 230(H) 60 - 100 mg/dL INTERFACE SYSTEM 12/18/2005 9:27 PM CDT Sesar Rayo MD POINT OF CARE TESTING Final Re sult Performing Organization Address [facility] Phone Number INTERFACE SYSTEM Refer to clinic/hospital department * (ABNORMAL) POC GLUCOSE (12/18/2005 5:21 PM CDT) GLUCOSE POC 194(H) 60 - 100 mg/dL INTERFACE SYSTEM 12/18/2005 5:21 PM CDT us Sesar Rayo MD POINT OF CARE TESTING Final Jodee pollock Performing Organization Address [facility] Phone Number INTERFACE SYSTEM Refer to clinic/hospital department * (ABNORMAL) POC GLUCOSE (12/18/2005 12:31 PM CDT) GLUCOSE POC 137(H) 60 - 100 mg/dL INTERFACE SYSTEM 12/18/2005 12:3 1 PM CDT us Sesar Rayo MD POINT OF CARE TESTING German pollock Performing Organization Address [facility] Phone Number INTERFACE SYSTEM Refer to clinic/hospital department documented in this encounter Visit Diagnoses Diagnosis Localized osteoarthrosis not specified whether primary or secondary, lower leg- Primary documented in this encounter Care Teams Human Resources Director Relationship Specialty Start Date End Date Non-Staff, Physician NO ADDRESS ON FILE PCP - General 08/30/13 documented as of this encounter
--- OUTSIDE RECORDS SUMMARY | 2025-04-10 23:16 | XMS_ITS | Encounter Summary ---
Author Organization [facility] Address [address] [place] [address] Care Team Providers Care Athletic Field Custodian Name Role Phone Non-Staff, Physician Primary Care Provider Unava ilable Encounter Details Date Type Department Care Team (Latest Contact Info) Description 02/17/2003 Outpatient Historical [facility] Family Medicine- [place] [address] [place] [address] Wanda Castro MD NO ADDRESS ON FILE Plantar fibromatosis (Primary Dx) Social History Tobacco Use Types Packs/Day Years Used Date Smoking Tobacco: Never Assessed Comments Unknown Sex and Gender Information Value Date Recorded Sex Assigned at Not on file Legal Sex Female 3:15 AM BANQUET STEWARDESS Gender Identity Not on file Sexual Orientation Not on file documented as of this encounter Plan of Treatment Not on file documented as of this encounter Visit Diagnoses Diagnosis Plantar fibromatosis- Primary Plantar fascial fibromatosis documented in this encounter Care Teams Athletic Field Custodian Relationship Specialty Start Date End Date Non-Staff, Physician NO ADDRESS ON FILE PCP - General 08/30/13 documented as of this encounter
--- OUTSIDE RECORDS SUMMARY | 2025-04-10 23:16 | XMS_ITS | Encounter Summary ---
Author Organization [facility] Address [address] [place] [address] Care Team Providers Care Consulting It Architect Name Role Phone Non-Staff, Physician Primary Care Provider Unava ilable Encounter Details Date Type Department Care Team (Latest Contact Info) Description 09/30/2002 Outpatient Historical [facility] Family Medicine- [place] [address] [place] [address] Wanda Castro MD NO ADDRESS ON FILE MIGRAINE NOS W/O MENTN INTRACTABLE (Primary Dx) Social History Tobacco Use Types Packs/Day Years Used Date Smoking Tobacco: Never Assessed Comments Unknown Sex and Gender Information Value Date Recorded Sex Assigned at Not on file 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
--- OUTSIDE RECORDS SUMMARY | 2025-04-10 23:16 | XMS_ITS | Encounter Summary ---
Author Organization [facility] Address [address] [place] [address] Care Team Providers Care Logistic Specialist Name Role Phone Non-Staff, Physician Primary Care Provider Unava ilable Reason for Referral * Outpatient Services (Routine) - Closed Specialty Diagnoses / Procedures Referred By Rubens brooks Referred To Contact Diagnoses Belchings Intractable hiccups Procedures CT CHEST ABDOMEN PELVIS W CONT Nancy Sanchez MD NO ADDRESS ON FILE Referral ID Status Reason Start Date Expiration Date Visits Re quested Visits Authorized [id number] Closed 07/20/2012 08/20/2013 1 1 Encounter Details Date Type Department Care Team (Latest Contact Info) Description 07/20/2012 Ancillary Orders [facility] [address] [place] [address] Nancy Sanchez MD NO ADDRESS ON FILE Belchings (Primary Dx); Intractable hiccups Social History Tobacco Use Types Packs/Day Years Used Date Smoking Tobacco: Never Smokeless Tobacco: Never Alcohol Use Standard Drinks/Week Comments No 0 (1 standard drink = 0.6 oz pur e alcohol) Comments No Sex and Gender Information Value Date Recorded Sex Assigned at Not on file Legal Sex Female 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
--- OUTSIDE RECORDS SUMMARY | 2025-04-10 23:16 | XMS_ITS | Encounter Summary ---
Author Organization [employer] [facility] Address [address] [place] [address] Care Team Providers Care Clinical Studies Specialist Name Role Phone Non-Staff, Physician Primary Care Provider Unava ilable Encounter Details Date Type Department Care Team (Late st Contact Info) Description 01/22/1998 Outpatient Historical [facility] Social History Tobacco Use Types Packs/Day Years Used Date Smoking Tobacco: Never Assessed Comments Unknown Sex and Gender Information Value Date Recorded Sex Assigned at Not on file Legal Sex Female 3:15 AM SUPERVISOR PLATE PASTING Gender Identity Not on file Sexual Orientation Not on file documented as of this encounter Plan of Treatment Not on file documented as of this encounter Visit Diagnoses Not on filedocumented in this encounter Care Teams Clinical Studies Specialist Relationship Specialty Start Date End Date Non-Staff, Physician NO ADDRESS ON FILE PCP - General 08/30/13 documented as of this encounter
--- OUTSIDE RECORDS SUMMARY | 2025-04-10 23:16 | XMS_ITS | Encounter Summary ---
Author Organization [facility] Address [address] [place] [address] Care Team Providers Care Wheel Cutter Name Role Phone Non-Staff, Physician Primary Care Provider Unava ilable Encounter Details Date Type Department Care Team (Latest Contact Info) Description 05/26/2005 Outpatient Historical [facility] Family Medicine- [place] [address] [place] [address] Wanda Castro MD NO ADDRESS ON FILE MALAISE AND FATIGUE NEC (Primary Dx); HYPERTENSION NOS Social History Tobacco Use Types Packs/Day Years Used Date Smoking Tobacco: Never Assessed Comments Unknown Sex and Gender Information Value Date Recorded Sex Assigned at Not on file 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
--- OUTSIDE RECORDS SUMMARY | 2025-04-10 23:16 | XMS_ITS | Encounter Summary ---
Author Organization [facility] Address [address] [place] [address] Care Team Providers Care Wheel Alignment Technician Name Role Phone Non-Staff, Physician Primary Care Provider Unava ilable Encounter Details Date Type Department Care Team (Latest Contact Info) Description 09/29/2003 Outpatient Historical [facility] Family Medicine- [place] [address] [place] [address] Wanda Castro MD NO ADDRESS ON FILE HYPERTENSION NOS (Primary Dx); BRIEF DEPRESSIVE REACT; Plantar fibromatosis Social History Tobacco Use Types Packs/Day Years Used Date Smoking Tobacco: Never Assessed Comments Unknown Sex and Gender Information Value Date Recorded Sex Assigned at Not on file Legal Sex Female 3:15 AM CARETAKER Gender Identity Not on file Sexual Orientation Not on file documented as of this encounter Plan of Treatment Not on file documented as of this encounter Visit Diagnoses Diagnosis Unspecified essential hypertension- Primary Adjustment disorder with depressed mood Plantar fibromatosis Plantar fascial fibromatosis documented in this encounter Care Teams Wheel Alignment Technician Relationship Specialty Start Date End Date Non-Staff, Physician NO ADDRESS ON FILE PCP - General 08/30/13 documented as of this encounter
--- OUTSIDE RECORDS SUMMARY | 2025-04-10 23:16 | XMS_ITS | Clinical Summary ---
Author Organization [facility] Address [address] [place] [address] Phone Care Team Providers Care Hematology Supervisor Name Role Phone Non-Staff, Physician Primary [...] on file Legal Sex Female 3:15 AM TENTS ASSEMBLER Gender Identity Not on file Sexual Orientation [...] (1 - 1-dose 75+ series) 2026 [facility] Advance Directives For more information, please contact: [phone] Documents on File Type Date Recorded Patient Rolling Machine Tender Expl anation Advance Directive Living Will 07/16/2012 9:40 AM LIVING WILL/POA * Full Code (Latest Code Status on File) Date Activated Date Inactivated Comments 07/16/2012 12:04 PM 07/17/2012 11:17 AM Care Teams Hematology Supervisor Relationship Specialty Start Date End Date Non-Staff, Physician NO ADDRESS ON FILE PCP - General 08/30/13
--- OUTSIDE RECORDS SUMMARY | 2025-04-10 23:16 | XMS_ITS | Encounter Summary ---
Author Organization [facility] Address [address] [place] [address] Care Team Providers Care Tax Compliance Manager Name Role Phone Non-Staff, Physician Primary Care Provider Unava ilable Encounter Details Date Type Department Care Team (Latest Contact Info) Description 03/23/2000 Outpatient Historical [facility] Family Medicine- [place] [address] [place] [address] Gloria Sal NO ADDRESS ON FILE Generalized osteoarthrosis, involving multiple sites (Primary Dx); Unspecified menopausal and postmenopausal disorder Social History Tobacco Use Types Packs/Day Years Used Date Smoking Tobacco: Never Assessed Comments Unknown Sex and Gender Information Value Date Recorded Sex Assigned at Not on file 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
--- OUTSIDE RECORDS SUMMARY | 2025-04-10 23:16 | XMS_ITS | Encounter Summary ---
Author Organization [facility] Address [address] [place] [address] Care Team Providers Care Oracle Bpm Consultant Name Role Phone Non-Staff, Physician Primary Care Provider Unava ilable Encounter Details Date Type Department Care Team (Latest Contact Info) Description 04/18/2005 Outpatient Historical [facility] Family Medicine- [place] [address] [place] [address] Wanda Castro MD NO ADDRESS ON FILE HYPERTENSION NOS (Primary Dx) Social History Tobacco Use Types Packs/Day Years Used Date Smoking Tobacco: Never Assessed Comments Unknown Sex and Gender Information Value Date Recorded Sex Assigned at Not on file 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
--- OUTSIDE RECORDS SUMMARY | 2025-04-10 23:16 | XMS_ITS | Data Portability ---
Author Organization [facility] Wang Jonas [facility] Adonay Oliver [facility] Address [address] [address] Assessment No assessment recorded. Plan of Treatment [...] By Organization Details Last Modified Time 12/14/2024 [id number] Hospital stay fo r C. Diff and abdominal wall cellulitis. Persistant vomiting, tx with NG tube. EGD showed esophagitis, suspected related to NG irritation. Colostomy leaking into abdominal would. Blood pressure too low, will d/c atenolol. Labs on Thursday, f/u 1 week. [email or web address] Not available 12/19/2024 15:45:00 12/21/2024 [id number] wound healing we ll, less redness and does not appear infected. son and patient poor historians no new information, but I am now able to access old discharge summaries. Very sick lady with perforated colon and abscess with multiple prolonged stays. eliquis for history of a.fib poor appetite for many months since infection; will add ppi [email or web address] Not available 12/21/2024 14:58:48 03/08/2025 [id number] Records reviewed . Admitted with hematemesis and melena in colostomy. Required CPR. Found to have viktor in urine, tx with fluconazole. Positive for C diff and tx with vanc. Started on keppra for suspected seizure. On Midodrine, blood pressure still on lower side. Labs on Thursday. f/u next week. [email or web address] Not available 03/08/2025 12:17:46 03/15/2025 [id number] Planning to d/c home after short SNF stay after hospitalization Admitted with hematemesis and melena in colostomy. Required CPR. Found to have viktor in urine, tx with fluconazole. Positive for C diff and tx with vanc. Started on keppra for suspected seizure. On Midodrine. Will need home health eval and tx. F/u with pcp 7-14 days after d/c. [email or web address] Not available 03/15/2025 12:59:24 Reason for Referral None Reported. Results Created Date Observation Date Name Description Value Unit Range Abnormal Flag Note LastModifiedBy Organization Detail LastModifiedTime Result Notes None recorded. Problems Name Problem SNOMED Code Status Onset Date Resolution Date Notes Provider Name and Address Organization Details Recorded Time Post-disch arge follow-up 425633247 Active 2024 [facility] 13:00:23 Clostridiu m difficile diarrhea 4749408472109 Active 2024 [facility] 13:00:23 History of colostomy 883802721 Active 2024 [facility] 13:00:25 Wound of abdomen 370832692 Active 2024 [facility] 13:00:25 Hypokalemi a 34460835 Active 2024 [facility] 13:00:28 Problem Notes None recorded. Medical [...] Address Organization Details Last Updated DateTime 5 70413.0 4 g 82 /min 18 /min 98.3 [degF] 97 % 110/60 mm[Hg] [facility] 5 13:03:57 Date Recorded Body weight Heart rate Respiratory rate Body temperature Oxygen saturation Systolic And Diastolic Provider Name and Address Organization Details Last Updated DateTime 5 54795.4 1 g 91 /min 20 /min 97.4 [degF] 99 % 122/90 mm[Hg] [facility] 5 12:44:59 Date Recorded Body weight Heart rate Respiratory rate Body temperature Oxygen saturation Systolic And Diastolic Provider Name and Address Organization Details Last Updated DateTime 5 60368.3 4 g 78 /min 20 /min 98.2 [degF] 94 % 110/67 mm[Hg] [facility] 5 11:41:12 Date Recorded Body weight Heart rate Respiratory rate Body temperature Oxygen saturation Systolic And Diastolic Provider Name and Address Organization Details Last Updated DateTime 5 11307.3 4 g 90 /min 14 /min 98.3 [degF] 96 % 132/70 mm[Hg] [facility] 5 12:55:48 Social History None recorded. Functional Status None recorded. Mental Status None recorded. Family History Nothing Reported. Medical History No medical history recorded. Gynecological HistoryNo gynecological history recorded. Obstetrics History GPAL:G 0 P 0 0 0 0 Immunizations Vaccine Type Date Status Note Provider Nam e and Address Organization Details Recorded Time Influenza, split virus, quadrivalent, PF 03/16/2020 completed Not Available [facility] 5 11:48:27 COVID-19, mRNA, LNP-S, PF, 100 mcg/0.5mL dose or 50 mcg/0.25mL dose 07/27/2020 completed Not Available [facility] 5 11:48:27 Past Encounters Encounter ID Performer Location Encounter Start Date Encounter Closed Date Diagnosis/Indication Diagnosis SNOMED-CT Code Diagnosis ICD10 Code Diagnosis IMO Codes Diagnosis Note [id number] Brady Ahuja DO [facility] ([facility]) [address] [place] [address] 12/14/2024 12:13:05 12/19/2024 17:35:48 Post-discharge follow-up 694500647 Z09 711053 Clostridiu m difficile diarrhea 1457899942 102 A04.72 219083 History of colostomy 161 354520 Z93.3 053658 Wound of abdomen 7260543 03 S31.109A 39619954 Hypokalemia 66386216 E87 .6 [id number] Brady DO [facility] [address] [place] [phone] 5 12/21/2024 11:50:07 12/22/2024 10:51:51 Clostridium difficile diarrhea 2701959980 102 A04.72 509830 Wound of abdomen 9884838 03 S31.109A 23326160 Paroxysmal atrial fibrillation 058722119 I48.0 86861 Gastroesop hageal reflux disease without esophagitis 509815484 K21.9 873899 Decrease in appetite 643 67602 R63.0 443975 [id number] Brady Ahuja DO [facility]) [address] [place] [phone] 5 03/08/2025 07:04:44 03/10/2025 17:05:56 Post-discharge follow-up 487590730 Z09 564952 Cardiac arrest 499045602 I46.9 3905 Metabolic encephalopathy 13119453 G93.41 029308 Acute deep venous thrombosis of right lower extremity 9583812366 73429 I82.401 04666620 Ischemia o f right lower extremity 6788871589 0882936 I99.8 38170068 Dysphagia 65447629 R13.1 0 14501994 Moderate p rotein energy malnutrition 122050373 E44.0 791601 Chronic gastrointestinal hemorrhage 52242206 K92.2 438620 [id number] Brady Ahuja DO [facility]) [address] [place] [address] 03/15/2025 11:47:38 03/20/2025 13:27:18 History of colostomy 950812486 Z93.3 089551 Post-disch arge follow-up 494307107 Z09 840508 Hypokalemia 05895199 E87 .6 9791 Clostridiu m difficile diarrhea 4802935748 102 A04.72 923878 Wound of abdomen 5802621 03 S31.109A 58044414 Health Concerns Section Related Observation LastModified by Organization Detai ls LastModified Time None Recorded Concern Status LastModified by Organization Details LastModified Time None Recorded Advance Directives Directive None Recorded Payers Insurance Date Sequence Insurance Name Policy Number Policy Bazan Covered Member ID Bazan Member ID Guarantor Name 03/07/2025 [place] - MEDICARE-ID - PART A - [facility] (MEDICARE) Dianelys Tez [id number] 5 Dianelys Tez 03/07/2025 1 MEDICARE B-[place]: [place] Dianelys Tez [id number] Dianelys Tez Notes Date Note Type Note Provider Name and Address Organization Details Recorded Time 12/14/2024 text/html Care Management - GeneralReported by PatientHPIFor prognosis, patient reportsexpected outcome: improveandprognosis: moderate. For context, patient reportsnot current smoker. For medication therapy, patient reportscompliant with follow-up visits.ROS as noted in the HPI New admit to SNF after hospital stay rBady Ahuja DO [address] [place] [address], [phone], [facility] 12/19/2024 15:45:13 12/21/2024 text/html Care Management - GeneralReported by PatientIFor prognosis, patient reportsexpected outcome: improveandprognosis: moderate. For context, patient reportsnot current smoker. For medication therapy, patient reportscompliant with follow-up visits.ROS as noted in the HPI no complaints per staff or pt Brady Ahuja DO [address] [place] [address], [phone], [facility] 12/21/2024 14:59:19 03/08/2025 text/html Care Management - GeneralReported by PatientIFor prognosis, patient reportsexpected outcome: improveandprognosis: moderate. For context, patient reportsnot current smoker. For medication therapy, patient reportscompliant with follow-up visits.ROS as noted in the [facility] re-admit hospital follow up Brady Ahuja DO [address] [place] [address], [phone], [facility]. 03/08/2025 15:24:46 03/15/2025 text/html Care Management - GeneralReported by PatientHPIFor prognosis, patient reportsexpected outcome: improveandprognosis: moderate. For context, patient reportsnot current smoker. For medication therapy, patient reportscompliant with follow-up visits.ROS as noted in the HPI visit for d/c orders, planning to go home with son. Brady Ahuja DO [address] [place] [address], [phone], [facility] 03/15/2025 14:11:08 OBGyn Episode No OBEpisode recorded.
--- OUTSIDE RECORDS SUMMARY | 2025-04-10 23:16 | XMS_ITS | Encounter Summary ---
Author Organization [employer] [facility] Address [address] [place] [address] Care Team Providers Care Body Artist Name Role Phone Non-Staff, Physician Primary Care Provider Unava ilable Encounter Details Date Type Department Care Team (Late st Contact Info) Description 08/30/2003 Outpatient Historical [facility] [place] [address] [place] [address] Social History Tobacco Use Types Packs/Day Years Used Date Smoking Tobacco: Never Assessed Comments Unknown Sex and Gender Information Value Date Recorded Sex Assigned at Not on file 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
--- NOTE | 2025-04-10 23:30 | PC.NURSE ---
DELAY ON ABX DUE TO LAB NEEDING TO DRAW BLOOD CULTURES.
[2025-04-10 23:32] VITALS: BP 152/125; PULSE 120; RESP 17; O2SAT 100
[2025-04-10 23:45] LABS: Hematocrit 48.1 % (36-47); Hemoglobin 16.70 g/dL (11.27-16.99); Mean Corpuscular HGB Conc 34.7 g/dL (30-55); Mean Corpuscular Hemoglobin 28.3 pg (27-33); Mean Corpuscular Volume 81.4 fl (85-98); Nucleated Red Blood Cells % 0 %; Platelet Count 353 10^3/cmm (157-399); Red Blood Count 5.91 10^6/uL (3.85-5.65); White Blood Count 10.31 10^3/uL (3.29-11.43)
--- NOTE | 2025-04-10 23:49 | W.ED.AMS ---
HPI - Altered Mental Status General: Chief Complaint: Altered Mental Status Stated Complaint: poss sepsis Time Seen by Provider: 04/10/25 23:13 History of Present Illness: 75-year-old female with a history of colovesical fistula, colostomy, gastric tube placement, malnutrition, chronic kidney disease, hyperlipidemia, pericolonic abscess, atrial fibrillation, chronic anticoagulation on Eliquis, chronic pain syndrome who presents the emergency room by ambulance with weakness, nausea and concern for sepsis. Apparently there was a family member that was take care of her that stopped taking care of her couple of days ago. Unclear if she has been eating or drinking. Related Data Home Medications ?Medication ?Instructions ?Recorded ?Confirmed ondansetron 4 mg disintegrating See Rx Instructions .Route .COMPLEX 11/15/24 01/05/25 tablet acetaminophen 325 mg tablet 650 mg PO QID PRN Fever Or Pain 01/05/25 01/05/25 (Tylenol) apixaban 5 mg tablet (Eliquis) 5 mg PO BID 01/05/25 01/05/25 bisacodyl 10 mg rectal suppository 10 mg KS DAILY PRN Constipation 01/05/25 01/05/25 dicyclomine 10 mg capsule 10 mg PO BID 01/05/25 01/05/25 docusate sodium 100 mg capsule 100 mg PO DAILY 01/05/25 01/05/25 guaifenesin 100 mg/5 mL oral liquid 300 mg PO Q4H PRN Cough 01/05/25 01/05/25 hydrocodone 5 mg-acetaminophen 325 1 tab PO Q6H 01/05/25 01/05/25 mg tablet ipratropium 0.5 mg-albuterol 3 mg 3 ml inhalation Q6H PRN Shortness 01/05/25 01/05/25 (2.5 mg base)/3 mL nebulization Of Breath Or Wheezing soln levofloxacin 500 mg tablet 500 mg PO DAILY 01/05/25 01/05/25 magnesium citrate 298 ml PO DAILY PRN Constipation 01/05/25 01/05/25 magnesium hydroxide 400 mg/5 mL 30 ml PO DAILY PRN Constipation 01/05/25 01/05/25 oral suspension (Milk of Magnesia) metoclopramide HCl 10 mg tablet 10 mg PO Q6H PRN Nausea And 01/05/25 01/05/25 (Reglan) Vomiting omeprazole 20 mg tablet,delayed 20 mg PO DAILY 01/05/25 01/05/25 release polyethylene glycol 3350 17 17 g PO DAILY 01/05/25 01/05/25 gram/dose oral powder polyethylene glycol 3350 17 17 g PO DAILY 01/05/25 01/05/25 gram/dose oral powder (Miralax) scopolamine base 1 mg over 3 days 1 patch transdermal Q3D PRN Nausea 01/05/25 01/05/25 transdermal patch And Vomiting sodium phosphates 19 gram-7 118 ml KS DAILY PRN Constipation 01/05/25 01/05/25 gram/118 mL enema (Fleet Enema) white petrolatum-mineral oil 83 1 applic ophthalmic (eye) DAILY 01/05/25 01/05/25 %-15 % eye ointment PRN Dry Eyes Previous Rx's ?Medication ?Instructions ?Recorded potassium chloride 20 mEq/15 mL 10 meq (7.5 mL) PO BID #450 mL 02/03/25 oral liquid Allergies Allergy/AdvReac Type Severity Reaction Status Date / Time morphine Allergy Unknown HIVES Verified 04/10/25 23:15 oxycodone Allergy Unknown HIVES Verified 04/10/25 23:15 Review of Systems General: Reports: ROS unobtainable due to medical condition PFS ED PFSH: Medical History (Updated 04/11/25 @ 02:56 by Heaven Dean MD) Colovesical fistula Chronic neck and back pain Chronic nausea Encounter for long-term opiate analgesic use Hypertension Irritable bowel syndrome Spondylolisthesis, cervical region Surgical History (Updated 01/06/25 @ 13:45 by Byron Goodwin MD) Status post colostomy History of cholecystectomy History of lumbar surgery History of carpal tunnel surgery History of knee replacement S/P rotator cuff repair History of hysterectomy Family History Other Cancer Social History Smoking and tobacco/nicotine status: never used tobacco/nicotine Second hand smoke exposure: No Alcohol intake: never Substance/Drug Use: never Household members: spouse Housing: House Physical Exam Narrative: General: Alert, no acute distress. Skin: Warm, dry. Head: Normocephalic, atraumatic. Neck: Supple, trachea midline. Eye: Extraocular movements are intact. Ears, nose, mouth and throat: Dry oral mucosa Cardiovascular: Regular, Normal peripheral perfusion. Respiratory: Lungs are clear to auscultation, respirations are non-labored, breath sounds are equal, Symmetrical chest wall expansion. Gastrointestinal: Soft, Nontender, Non distended Musculoskeletal: Normal ROM, no deformity. Neurological: Alert and oriented, No focal neurological deficit observed. Psychiatric: Cooperative, appropriate mood & affect. Course Vital Signs: Vital signs: Vital Signs Temperature 97.5 F L 04/10/25 23:11 Pulse Rate 105 H 04/11/25 03:00 Respiratory Rate 18 04/11/25 02:17 Blood Pressure 97/70 04/11/25 03:00 Pulse Oximetry 97 04/11/25 03:00 Oxygen Delivery Me thod Room Air 04/11/25 02:17 MDM - Altered Mental Status Medical Decision Making Medical decision making Patient's reason for coming to the emergency room: Weakness, vomiting, altered mental status Social determinants: Patient lives at home. Apparently there was a family member who was taking care of her who took off a couple of days ago. I reviewed the patient's medical record. 75-year-old female with a history of colovesical fistula, colostomy, gastric tube placement, malnutrition, chronic kidney disease, hyperlipidemia, pericolonic abscess, atrial fibrillation, chronic anticoagulation on Eliquis, chronic pain syndrome. Most recently seen here in the emergency room for gastroenteritis back in February. 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 She is on dronabinol and lorazepam now. Alternate historians: EMS Differential diagnosis: including but not limited to and based on the above HPI, review of systems and physical exam: Orders placed to evaluate differential diagnosis based on the above differential, HPI and physical exam EKG: Time 12:20 AM. Rate 104. Sinus tachycardia, nonspecific ST changes, PVCs, incomplete right bundle branch block., This was reviewed and interpreted by myself the ER physician at 12:24 AM Acute abdominal series: chest x-ray: No acute process. No obvious infiltrates. No pneumothorax. No cardiomegaly. This was reviewed and interpreted by myself the emergency room physician Abdomen x-ray: Percutaneous gastric tube tip over the stomach and left upper quadrant. Nonspecific bowel gas pattern. No evidence of free air or obstruction. This was reviewed and interpreted by myself the emergency room physician. I also reviewed the radiology report. Lab Review: Laboratory results were reviewed and interpreted by myself the emergency room physician. No leukocytosis. No anemia. No renal failure. Lactic acid is elevated. Urinalysis negative for infection. Flu COVID and RSV are negative. CT of the abdomen pelvis: PEG tube terminates in subcutaneous fat. Lungs are clear. No other acute process. This was reviewed and interpreted by myself the emergency room physician. I also reviewed the radiology report. Assessment of risk: Level of risk: High risk patient. Multiple comorbidities. Hospitalization considerations: Patient is being admitted. Reexamination: Patient does seem a bit more interactive but goes back to saying over and over again help me . PEG tube will not advance. Consultation: I spoke with Dr. Gamez who is on-call for the hospitalist service who agrees to admission Assessment and plan: Encephalopathy Possible sepsis Dehydration -2L normal saline bolus. Just over 30 mL/kg -Broad-spectrum antibiotics were administered. -Sepsis quality measures. -Lactic acid with a reflex was ordered. -Blood cultures were ordered. ?I reevaluated the patient's volume status after sepsis fluids were given. -I discussed the patient with the hospitalist on-call who is admitting the patient. - Discussed findings and plan with patient. Answered any questions. - All laboratory values were reviewed and interpreted personally by myself, the ER physician - All imaging was reviewed and interpreted personally by myself, the ER physician. - Evaluation and treatment of this problem were appropriate in the emergency setting Critical Care: -I spent a total of 65 minutes of critical care time managing the patient, independent of any other practitioner. -The time involved in the performance of separately reportable procedures was not counted towards critical care time. Lab Data 04/10/25 22:25 04/11/25 00:30 Radiology Impressions Chest/Abdomen X-ray 04/10/25 23:14 IMPRESSION: Percutaneous gastric tube tip over the stomach in the left upper quadrant. Chest/Abdomen/Pelvis CT 04/11/25 01:36 IMPRESSION: No focal consolidation, pleural effusion, or pneumothorax. IMPRESSION: 1. Peg tube terminates in the subcutaneous fat. Repositioning recommended. 2. No nephrolithiasis, hydronephrosis, or obstructive uropathy. 3. Hepatic steatosis. 4. Cholecystectomy. Laboratory Results WBC 10.31 10^3/uL (3.29-11.43) 04/10/25: RBC 5.91 10^6/uL (3.85-5.65) H 04/10/25: Hgb 16.70 g/dL (11.27-16.99) 04/10/25: Hct 48.1 % (36-47) H 04/10/25: MCV 81.4 fl (85-98) L 04/10/25: MCH 28.3 pg (27-33) 04/10/25: MCHC 34.7 g/dL (30-55) 04/10/25: RDW 14.2 % (12.1-15.1) 04/10/25: Plt Count 353 10^3/cmm (157-399) 04/10/25: MPV 12.4 fL (7.4-10.4) H 04/10/25: Neut % (Auto) 73.2 % 04/10/25: Lymph % (Auto) 18.7 % 04/10/25: [place] % (Auto) 7.2 % 04/10/25: Eos % (Auto) 0.1 % 04/10/25: Baso % (Auto) 0.4 % 04/10/25: Neut # (Auto) 7.55 10^3/uL (1.8-7.7) 04/10/25: Lymph # (Auto) 1.9 10^3/uL (0.8-4.8) 04/10/25: Valencia # (Auto) 0.7 10^3/uL (0.2-0.9) 04/10/25: Eos # (Auto) 0.0 10^3/uL (0.0-0.8) 04/10/25: Baso # (Auto) 0.0 10^3/uL (0.0-0.1) 04/10/25: Nucleated RBC % (auto) 0 % 04/10/25 22: Nucleated RBCs # 0.0 /100WBC 04/10/25 22:25 Specimen Type Arterial 04/11/25 02:09 Sample Site Radial, right 04/11/25 02:09 ABG pH 7.58 (7.35-7.45) H* 04/11/25 02:09 ABG pCO2 17.4 mmHg (35-45) L* 04/11/25 02:09 ABG pO2 126.0 mmHg (80.0-100.0) H 04/11/25 02:09 ABG HCO3 16.2 mmol/L (22-26) L 04/11/25 02:09 ABG O2 Saturation > 99.1 04/11/25 02:09 ABG Base Excess -3.6 mmol/L (-2.0-2.0) L 04/11/25 02:09 Sergio Test Pos 04/11/25 02:09 A-a O2 Gradient 0.0 mmHg (5-10) L 04/11/25 02:09 Hematocrit 36.0 % (37-47) L 04/11/25 02:09 Hgb O2 Saturation 98.1 % (95-100) 04/11/25 02:09 Carboxyhemoglobin 0.7 %THgb (0.4-20.1) 04/11/25 02:09 Methemoglobin 0.9 % (0.4-1.5) 04/11/25 02:09 Total Hemoglobin 11.8 g/dL (12-16) L 04/11/25 02:09 Sodium 132.0 mmol/L (131-143) 04/11/25 02:09 Potassium 2.3 mmol/L (3.5-5.0) L 04/11/25 02:09 Glucose 176.0 mg/dL (70-115) H 04/11/25 02:09 Ionized Calcium 1.2 mmol/L (1.1-1.4) 04/11/25 02:09 O2 Delivery Device Room air 04/11/25 02:09 Dispatcher Radioactive Waste Disposal ID [email or web address] 04/11/25 02:09 Sodium 137 mmol/L (136-145) 04/11/25 00:30 Potassium 3.3 mmol/L (3.5-5.1) L 04/11/25 00:30 Chloride 89 mmol/L (98-107) L 04/11/25 00:30 Carbon Dioxide 16 mmol/L (22-29) L 04/11/25 00:30 Anion Gap 35.3 (5-19) H 04/11/25 00:30 BUN 8 mg/dL (8-23) 04/11/25 00:30 Creatinine 0.9 mg/dL (0.5-0.9) 04/11/25 00:30 GFR Calculation Not Reportable 04/11/25 00:30 Glucose 117 mg/dL (65-115) H 04/11/25 00:30 Calculated Osmolality 283 mOsm/kg (285-295) L 04/11/25 00:30 Lactic Acid 4.3 mmol/L (0.5-2.2) H* 04/11/25 00:30 Calcium 10.0 mg/dL (8.5-10.5) 04/11/25 00:30 Total Bilirubin 0.8 mg/dL (0.15-1.2) 04/11/25 00:30 AST 11 U/L (0-32) 04/11/25 00:30 ALT < 5 U/L (0-33) 04/11/25 00:30 Alkaline Phosphatase 98 U/L (35-105) 04/11/25 00:30 Troponin T Baseline 19 ng/L (0-10) H 04/11/25 00:30 Troponin T 120 Minute 24.30 ng/L (0-10) H 04/11/25 02:26 Delta Troponin T 5.30 ABS# (0-10) 04/11/25 02:26 C-Reactive Protein 81.9 mg/L (0.0-4.9) H 04/11/25 00:30 Total Protein 6.5 g/dL (6.6-8.7) L 04/11/25 00:30 Albumin 3.6 g/dL (3.5-5.2) 04/11/25 00:30 Globulin 2.9 g/dL (1.3-4.6) 04/11/25 00:30 Urine Color Yellow (Yellow) 04/11/25 00:33 Urine Appearance Clear (CLEAR) 04/11/25 00:33 Urine pH 5.0 (5-7) 04/11/25 00:33 Ur Specific [place] 1.020 (1.005-1.030) 04/11/25 00:33 Urine Protein 1+ (Negative) A 04/11/25 00:33 Urine Glucose (UA) Negative (Normal) 04/11/25 00:33 Urine Ketones 4+ (Negative) 04/11/25 00:33 Urine Blood Negative (Negative) 04/11/25 00:33 Urine Nitrate Negative (Negative) 04/11/25 00:33 Urine Bilirubin Negative (Negative) 04/11/25 00:33 Urine Urobilinogen 1.0 mg/dL (Negative) 04/11/25 00:33 Ur Leukocyte Esterase Negative (Negative) 04/11/25 00:33 Urine RBC 3-5 /hpf (0-2) 04/11/25 00:33 Urine WBC 0-5 /hpf (0-5) 04/11/25 00:33 Ur Squamous Epith Cells 0-5 /hpf (0-5) 04/11/25 00:33 Amorphous Sediment Not Reportable 04/11/25 00:33 Urine Bacteria None seen /hpf (NONE) 04/11/25 00:33 Hyaline Casts 25.63 /lpf 04/11/25 00:33 Influenza A (PCR) Negative (Negative) 04/11/25 00:47 Influenza Type B (PCR) Negative (Negative) 04/11/25 00:47 RSV (PCR) Negative (Negative) 04/11/25 00:47 SARS-CoV-2 (PCR) Negative (Negative) 04/11/25 00:47 All radiology interpretation(s) finalized by discharge Discharge Plan Discharge Patient Disposition: Admitted As Inpatient Admit Provider: Truong Simental Clinical Impression: Acute metabolic encephalopathy, Dehydration, Sepsis Condition: Stable Coding Level of Care Code ED 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
[2025-04-11] VITALS (55 sets, daily range): BP systolic 88–167; BP diastolic 49–145; PULSE 86–125; RESP 5–37; TEMP 36.4–36.9; O2SAT 93–100; BMI 21.5
[2025-04-11] MEDS: linezolid premix 600 MG/300 ML PREMIX 300 MG IV (00:20)
--- NOTE | 2025-04-11 00:37 | PC.NURSE ---
PT BLOOD CULTURES DRAWN APPROX @0010 - ABX STARTED AFTER BLOOD CULTURES WERE DRAWN.
[2025-04-11 01:03] LABS: Troponin(5th) Baseline 19 ng/L (0-10)
[2025-04-11 01:03] LABS: Glucose Urine UA Negative (Normal); Nitrate Urine Negative (Negative); Specific Gravity, Urine 1.020 (1.005-1.030)
[2025-04-11 01:06] LABS: Alanine Aminotransferase < 5 U/L (0-33); Albumin Level 3.6 g/dL (3.5-5.2); Alkaline Phosphatase 98 U/L (35-105); Anion Gap 35.3 (5-19); Aspartate Amino Transferase 11 U/L (0-32); Blood Urea Nitrogen 8 mg/dL (8-23); Calcium 10.0 mg/dL (8.5-10.5); Carbon Dioxide 16 mmol/L (22-29); Chloride 89 mmol/L (98-107); Globulin 2.9 g/dL (1.3-4.6); Glucose 117 mg/dL (65-115); Osmolality Calculated 283 mOsm/kg (285-295); Potassium 3.3 mmol/L (3.5-5.1); Sodium 137 mmol/L (136-145); Total Protein 6.5 g/dL (6.6-8.7)
[2025-04-11 01:12] LABS: Lactic Sepsis W/Reflex 4.3 mmol/L (0.5-2.2)
--- NOTE | 2025-04-11 01:14 | ECG_ITS ---
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 Measurements Intervals [place] Rate: 106 P: -84 MD: 131 QRS: -69 QRSD: 126 T: 86 QT: 398 QTc: 529 Interpretive Statements Possible sinus tachycardia LEFT AXIS DEVIATION [QRS AXIS < -30] RIGHT BUNDLE BRANCH BLOCK [120+ ms QRS DURATION, UPRIGHT V1, 40+ ms S IN I/aVL/V4/V5/V6] PROBABLE ANTEROSEPTAL MYOCARDIAL INFARCTION , OF INDETERMINATE AGE [35 ms Q WAVE IN V1-V4] Compared to ECG 04/11/2025 00:20:50 Right bundle-branch block now present Sinus tachycardia no longer present Ventricular premature complex(es) no longer present Incomplete right bundle-branch block no longer present Myocardial infarct finding still present Electronically Signed On 04-13-2025 18:14:37 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 [email or web address] [id number]
[2025-04-11 01:36] LABS: Respiratory Syncytial Virus Ce NEGATIVE (Negative); SARS-CoV-2 PCR NEGATIVE (Negative)
--- NOTE | 2025-04-11 01:36 | CTR_ITS ---
PROCEDURE INFORMATION: Exam: CT Chest With Contrast; Diagnostic Exam date and time: 04/11/2025 2:00 AM Age: 75 years old Clinical indication: Other: Sepsis TECHNIQUE: Imaging protocol: Diagnostic computed tomography of the chest with contrast. Radiation optimization: All CT scans at this facility use at least one of these dose optimization techniques: automated exposure control; mA and/or kV adjustment per patient size (includes targeted exams where dose is matched to clinical indication); or iterative reconstruction. Contrast material: OMNI 350; Contrast volume: 100 ml; Contrast route: INTRAVENOUS (IV); COMPARISON: CR (ABDOMEN, ) 04/10/2025 11:27 PM RADIATION DOSE METRICS: Total DLP (mGy-cm): 991.56 FINDINGS: Lungs: Unremarkable. No consolidation. No masses. Pleural spaces: No focal consolidation, pleural effusion, or pneumothorax. Heart: Unremarkable. No cardiomegaly. No pericardial effusion. Lymph nodes: Unremarkable. No enlarged lymph nodes. Vasculature: Unremarkable. No aortic aneurysm. Bones/joints: Degenerative changes of the spine. Soft tissues: Unremarkable. PROCEDURE INFORMATION: Exam: CT Abdomen And Pelvis With Contrast Exam date and time: 04/11/2025 2:00 AM Age: 75 years old Clinical indication: Other: Sepsis TECHNIQUE: Imaging protocol: Computed tomography of the abdomen and pelvis with contrast. Radiation optimization: All CT scans at this facility use at least one of these dose optimization techniques: automated exposure control; mA and/or kV adjustment per patient size (includes targeted exams where dose is matched to clinical indication); or iterative reconstruction. Contrast material: OMNI 350; Contrast volume: 100 ml; Contrast route: INTRAVENOUS (IV); COMPARISON: CR (ABDOMEN, ) 04/10/2025 11:27 PM RADIATION DOSE METRICS: Total DLP (mGy-cm): 991.56 FINDINGS: Tubes, catheters and devices: Peg tube terminates in the subcutaneous fat. Repositioning recommended. Liver: Hepatic steatosis. Gallbladder and biliary ducts: Cholecystectomy. Pancreas: Normal. No ductal dilation. Spleen: Normal. No splenomegaly. Adrenal glands: Normal. No mass. Kidneys and ureters: No nephrolithiasis, hydronephrosis, or obstructive uropathy. Stomach and bowel: Unremarkable. No obstruction. No mucosal thickening. Appendix: No evidence of appendicitis. Intraperitoneal space: Unremarkable. No free air. No significant fluid collection. Vasculature: Unremarkable. No abdominal aortic aneurysm. Lymph nodes: Unremarkable. No enlarged lymph nodes. Urinary bladder: Cohen catheter terminates in a decompressed urinary bladder. Reproductive: Hysterectomy. Bones/joints: Unremarkable. No acute fracture. Soft tissues: Unremarkable. CT/CT chest abdpel w/*[id number] IMPRESSION: No focal consolidation, pleural effusion, or pneumothorax. IMPRESSION: 1. Peg tube terminates in the subcutaneous fat. Repositioning recommended. 2. No nephrolithiasis, hydronephrosis, or obstructive uropathy. 3. Hepatic steatosis. 4. Cholecystectomy.
[2025-04-11] MEDS: ondansetron 2 mg/ML SDV 2 mL 8 MG IVP (01:59)
[2025-04-11] MEDS: iohexol 350 mg/mL 500 mL Btl (per mL) IV ×2 (02:01→05:38)
[2025-04-11 02:20] LABS: Arterial Blood Gas Hematocrit 36.0 % (37-47); Blood Gas Allen Test Pos; Blood Gas Sample Site Radial, right; Blood Gas Sample Type Arterial; Carboxyhemoglobin 0.7 %THgb (0.4-20.1); Glucose Level-ABG 176.0 mg/dL (70-115); HCO3 ABG 16.2 mmol/L (22-26); Ionized Calcium Level - ABG 1.2 mmol/L (1.1-1.4); Methemoglobin 0.9 % (0.4-1.5); Oxygen Saturation ABG > 99.1; PO2 ABG 126.0 mmHg (80.0-100.0); Potassium Level - ABG 2.3 mmol/L (3.5-5.0); Sodium Level - ABG 132.0 mmol/L (131-143)
[2025-04-11 02:21] LABS: ABG PCO2 17.4 mmHg (35-45); ABG PH Result 7.58 (7.35-7.45); Alveolar-Arterial Oxygen Gradi 0.0 mmHg (5-10)
[2025-04-11 02:26] LABS: Reflex Lactate Order REFLEX LACTIC ORDERD
[2025-04-11 02:48] LABS: UA Slide Review UA Slide Review Perf
--- NOTE | 2025-04-11 03:59 | PM.HP ---
Providers/Chief Complaint Admitting Physician: Truong Simental MD Primary Care Provider: DOMINIC Frost Chief Complaint: poss sepsis History of Present Illness Dianelys Reagan is a 75 year old female who lives with family but her niece was her caregiver who left 2 days ago. Patient was in her room by ourselves and other family members living with her decided to check on her and found that she had leaking ostomy over her abdomen, altered mental status and sent her to the hospital via EMS but did not come in. Patient is unable to give any history that is meaningful due to altered mental status. Review of Systems Narrative: Unable to obtain meaningful history Left arm scab lesion she is unable to give history states she does not know Medications/Allergies Home Medications ?Medication ?Instructions ?Recorded ?Confirmed ?Last Taken ?Type ondansetron 4 mg disintegrating See Rx Instructions .Route .COMPLEX 11/15/24 01/05/25 01/04/25 History tablet acetaminophen 325 mg tablet 650 mg PO QID PRN Fever Or Pain 01/05/25 01/05/25 Unknown History (Tylenol) apixaban 5 mg tablet (Eliquis) 5 mg PO BID 01/05/25 01/05/25 01/04/25 08:00 History bisacodyl 10 mg rectal suppository 10 mg PA DAILY PRN Constipation 01/05/25 01/05/25 Unknown History dicyclomine 10 mg capsule 10 mg PO BID 01/05/25 01/05/25 01/04/25 History docusate sodium 100 mg capsule 100 mg PO DAILY 01/05/25 01/05/25 Unknown History guaifenesin 100 mg/5 mL oral liquid 300 mg PO Q4H PRN Cough 01/05/25 01/05/25 Unknown History hydrocodone 5 mg-acetaminophen 325 1 tab PO Q6H 01/05/25 01/05/25 01/04/25 History mg tablet ipratropium 0.5 mg-albuterol 3 mg 3 ml inhalation Q6H PRN Shortness 01/05/25 01/05/25 Unknown History (2.5 mg base)/3 mL nebulization Of Breath Or Wheezing soln levofloxacin 500 mg tablet 500 mg PO DAILY 01/05/25 01/05/25 01/04/25 History magnesium citrate 298 ml PO DAILY PRN Constipation 01/05/25 01/05/25 Unknown History magnesium hydroxide 400 mg/5 mL 30 ml PO DAILY PRN Constipation 01/05/25 01/05/25 Unknown History oral suspension (Milk of Magnesia) metoclopramide HCl 10 mg tablet 10 mg PO Q6H PRN Nausea And 01/05/25 01/05/25 01/04/25 History (Reglan) Vomiting omeprazole 20 mg tablet,delayed 20 mg PO DAILY 01/05/25 01/05/25 01/04/25 History release polyethylene glycol 3350 17 17 g PO DAILY 01/05/25 01/05/25 Unknown History gram/dose oral powder polyethylene glycol 3350 17 17 g PO DAILY 01/05/25 01/05/25 Unknown History gram/dose oral powder (Miralax) scopolamine base 1 mg over 3 days 1 patch transdermal Q3D PRN Nausea 01/05/25 01/05/25 01/02/25 History transdermal patch And Vomiting sodium phosphates 19 gram-7 118 ml PA DAILY PRN Constipation 01/05/25 01/05/25 Unknown History gram/118 mL enema (Fleet Enema) white petrolatum-mineral oil 83 1 applic ophthalmic (eye) DAILY 01/05/25 01/05/25 01/03/25 History %-15 % eye ointment PRN Dry Eyes potassium chloride 20 mEq/15 mL 10 meq (7.5 mL) PO BID #450 mL 02/03/25 Unknown Rx oral liquid Allergies Allergy/AdvReac Type Severity Reaction Status Date / Time morphine Allergy Unknown HIVES Verified 04/10/25 23:15 oxycodone Allergy Unknown HIVES Verified 04/10/25 23:15 PFSH Acute PFSH: Medical History (Updated 04/11/25 @ 04:17 by Truong Simental MD) Respiratory alkalosis with metabolic alkalosis Colovesical fistula Chronic neck and back pain Chronic nausea Encounter for long-term opiate analgesic use Hypertension Irritable bowel syndrome Spondylolisthesis, cervical region Surgical History (Updated 01/06/25 @ 13:45 by Byron Goodwin MD) Status post colostomy History of cholecystectomy History of lumbar surgery History of carpal tunnel surgery History of knee replacement S/P rotator cuff repair History of hysterectomy Family History Other Cancer Social History (Updated 04/11/25 @ 04:08 by Truong Simental MD) Smoking and tobacco/nicotine status: never used tobacco/nicotine Second hand smoke exposure: No Alcohol intake: never Substance/Drug Use: never Additional social history: I reviewed last DNR documentation by Dr. Goodwin from 01/06/2025 where he had discussed it with the patient and she wanted DNR Household members: spouse Housing: House Vitals/I&O/Wt Last Vital Signs Temp 97.5 F L 04/10/25 23:11 Pulse 112 H 04/11/25 03:30 Resp 18 04/11/25 02:17 BP 108/80 04/11/25 03:30 Pulse Ox 97 04/11/25 03:30 O2 Del Method Room Air 04/11/25 02:17 04/10/25 04/10/25 04/11/25 14:59 22:59 06:59 Intake Total 1300 / 1300 Balance 1300 / 1300 Weight last 48 hrs Weight 59.647 kg Physical Exam Narrative: General Well-developed thin female in no acute cardiopulmonary distress she is calling for help intermittently. Neuro she is unable to tell me where she is at. She does move all extremities. CV regular rate and rhythm Lungs clear to auscultation bilaterally Abdomen positive bowel tones soft mild pain around the G-tube insertion site no areas mildly full but not fluctuant. Left sided ostomy leaking with green stool Calves no tenderness cords or pretibial edema Skin she has inflammation in the midline incisional fold with erythema. Left arm with the 2 x 1-1/2 dimensional scab raised lesion with a satellite lesion. This may represent an injury that is healed, burn or skin cancer Data 04/10/25 22:25 04/11/25 00:30 Micro: Microbiology 04/11/25 00:14 Blood Culture - Preliminary Blood SPECIMEN COLLECTED 04/11/25 00:14 Blood Culture - Preliminary Blood SPECIMEN COLLECTED A&P Assessment and plan 1. Respiratory alkalosis with metabolic alkalosis: Will hydrate. Need to workup potential causes of respiratory alkalosis as she had respiratory alkalosis with pH of 7.74 last admission and this time 7.58 2. Acute metabolic encephalopathy: Correct acidosis and follow. 3. Dehydration: NS at 100 PDMP PDMP Reviewed: Not Reviewed Attestations Medical Necessity Statement*: Patient admitted to the hospital respiratory alkalosis with incomplete compensation metabolic acidosis and will require greater than 2 might nights in the hospital Coding Level of Care Code 67208 Diagnoses Respiratory alkalosis with metabolic alkalosis E87.3 Acute metabolic encephalopathy G93.41 Dehydration E86.0 Time Spent (min) 55
[2025-04-11] MEDS: sodium chlor 0.9% + KCl 20 mEq 20 MEQ/1,000 ML BAG 100 MEQ IV ×2 (04:14→15:30)
--- NOTE | 2025-04-11 04:33 | CTR_ITS ---
PROCEDURE INFORMATION: Exam: CT Head Without And With Contrast Exam date and time: 04/11/2025 4:56 AM Age: 75 years old Clinical indication: Abnormal findings; Abnormal radiologic findings of head/skull; Not specified; Additional info: Respiratory alkalosis and abnormal noncontrast CT TECHNIQUE: Imaging protocol: Computed tomography of the head without and with contrast. Radiation optimization: All CT scans at this facility use at least one of these dose optimization techniques: automated exposure control; mA and/or kV adjustment per patient size (includes targeted exams where dose is matched to clinical indication); or iterative reconstruction. Contrast material: OMNI 350; Contrast volume: 100 ml; Contrast route: INTRAVENOUS (IV); COMPARISON: CT head wo con* [id number] 01/10/2025 3:17 PM RADIATION DOSE METRICS: Total DLP (mGy-cm): 2167.18 FINDINGS: Brain: No hemorrhage. Periventricular white matter lucency represents a arthrosclerotic encephalopathic changes. No mass effect. No enhancing intracranial lesion is observed. Cerebral ventricles: No ventriculomegaly. Ventricular prominence disproportionate to the degree of atrophy observed. Paranasal sinuses: Visualized sinuses are unremarkable. No fluid levels. Mastoid air cells: Visualized mastoid air cells are well aerated. Bones: Unremarkable. No acute fracture. Soft tissues: Unremarkable. CT/CT head wo/w con [id number] IMPRESSION: No acute intracranial abnormality.
[2025-04-11 04:52] LABS: Lactic Acid level (Lactate) 1.8 mmol/L (0.5-2.2)
[2025-04-11 04:58] LABS: Magnesium 1.2 mg/dL (1.7-2.3)
--- NOTE | 2025-04-11 05:10 | PC.NURSE ---
THIS RN ATTEMPTED PO CHALLENGE WITH WATER - PT UNABLE TO TOLERATE FLUIDS. PT WAS BURPING AND TRYING TO VOMIT. CHARGE NURSE AT BEDSIDE.
[2025-04-11 05:20] LABS: Thyroid Stimulating Hormone 1.94 uIU/mL (0.27-4.20)
[2025-04-11] MEDS: ondansetron 2 mg/ML SDV 2 mL 4 MG IVP (05:30)
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
[2025-04-11 08:49] LABS: Troponin 5 6HR 44.23 ng/L (0-10)
[2025-04-11 08:58] LABS: Troponin 5 6HR Delta 25.23 ng/L (0-12)
[2025-04-11] MEDS: magnesium sulfate premix 2 GM/50 ML PIGGYBACK IV (09:14)
--- NOTE | 2025-04-11 09:58 | ECG_ITS ---
[employer] Test Date: 2025-04-11 Pat Name: Dianelys Reagan Department: Room: 112 Gender: Female Bath Steward: : 1950 Requested By: Heaven Peck Order Number: [id number] Willard MD: Merry Lopez M.D. Measurements Intervals [place] Rate: 97 P: 74 TX: 169 QRS: -58 QRSD: 105 T: 65 QT: 367 QTc: 467 Interpretive Statements SINUS RHYTHM LOW QRS VOLTAGE IN PRECORDIAL LEADS [QRS DEFLECTION < 1.0 mV IN CHEST LEADS] LEFT ANTERIOR FASCICULAR BLOCK [QRS AXIS <= -45, QR IN I, RS IN II] POSSIBLE ANTERIOR MYOCARDIAL INFARCTION , OF INDETERMINATE AGE [30 ms Q WAVE IN V3/V4, OR R < 0.2 mV IN V4] Compared to ECG 04/11/2025 02:21:01 Low QRS voltage now present Left anterior fascicular block now present Junctional tachycardia no longer present Left-axis deviation no longer present Right bundle-branch block no longer present Myocardial infarct finding still present Electronically Signed On 04-13-2025 18:04:10 DOMESTIC HELPER by Merry Lopez M.D. [email or web address] [email or web address]
--- NOTE | 2025-04-11 13:31 | PICC.NOTE ---
Attempted PICC line placement in right Brachial due to poor peripheral access. Unable to obtain venous access despite appropriate positioning and technique. Noris Cardona RN PICC nurse consulted to assist with placement. Unable to access patient due to poor peripheral access. Procedure discontinued. Provider Radha notified and aware of unsuccessful attempt. Patient tolerated the procedure without complications.
--- NOTE | 2025-04-11 13:33 | PICC.NOTE ---
PICC consult: Assisted PICC RN with PICC placement on right arm attempt, patient's vein/nerve branch bundle anatomy (the brachial vein access attempt) and poor venous stasis (non-compressible basilic vein)- right arm was unable to place PICC. This RN assessed left arm with US and patient was unable to hold her arm position longer than 5 minutes comfortably making attempt on left arm difficult and uncomfortable for patient. Left arm veins, artery, and nerve branch bundle anatomy also would have been a difficult PICC placement needing recommendation for alternate venous access.
[2025-04-11] MEDS: cefTRIAXone 1,000 mg SDV 1000 MG IVP (13:38)
--- NOTE | 2025-04-11 13:40 | USR_ITS ---
PROCEDURE INFORMATION: Exam: US Duplex Upper Extremity Veins, Bilateral, Complete Exam date and time: 04/11/2025 4:59 PM Age: 75 years old Clinical indication: Other: Concern for clot in right arm evaluate both; Additional info: Concern for clot right arm, evaluate both, has not had eliquis or oral medications in 1 week TECHNIQUE: Imaging protocol: Real-time duplex ultrasound of the extremities with 2-D henry scale, color Doppler flow and spectral waveform analysis including responses to compression and other maneuvers (when performed) with image documentation. Complete exam focused on the bilateral upper extremity veins. COMPARISON: 1. CT chest abdpel w/*[id number] 04/11/2025 2:[address] cervical spin wo con* [id number] 12/19/2020 10:34 AM FINDINGS: Right deep veins: Unremarkable. Axillary and brachial veins are patent throughout without thrombus. Normal Doppler waveforms. Normal compressibility and/or augmentation response. Visualized internal jugular and subclavian veins are patent. Left deep veins: Unremarkable. Axillary and brachial veins are patent throughout without thrombus. Normal Doppler waveforms. Normal compressibility and/or augmentation response. Visualized internal jugular and subclavian veins are patent. Superficial veins: Unremarkable. Visualized cephalic and basilic veins are patent without thrombus. Bilateral radial and ulnar veins in each forearm appear grossly unremarkable. Soft tissues: Unremarkable. US/[place] [id number] IMPRESSION: No evidence of deep vein thrombosis in right or left upper extremity.
--- NOTE | 2025-04-11 13:42 | PM.CONSULT ---
Providers/Reason For Consult Consulting Physician/Specialty*: Hever Adkins MD general surgery Reason for Consult*: evaluate for replacement of partially dislodged, established PEG tube Requesting Physician: Alan Simental MD hospitalist Attending Physician: Radha Awad NP Primary Care Provider: DOMINIC Frost History of Present Illness History of Present Illness Dianelys Reagan is a 75 year old female with colostomy and longstanding old PEG tube and poor peripheral venous access. THe tip of the PEG is in subcutaenous tract. THe bumper is at 2 and it is difficult to tell if this is 2 inches or cm because the markings have worn off in spots. It appears to be old tube and 16 [place] islander with up to 5 cc balloon. Apparently attempt to push back into stomach was unsuccessful in ER per nurses report by bedside. Review of Systems Narrative: see Kamille's note Medications/Allergies Home Medications ?Medication ?Instructions ?Recorded ?Confirmed ?Last Taken ?Type ondansetron 4 mg disintegrating See Rx Instructions .Route .COMPLEX 11/15/24 04/11/25 01/04/25 History tablet acetaminophen 325 mg tablet 650 mg PO QID PRN Fever Or Pain 01/05/25 04/11/25 Unknown History (Tylenol) apixaban 5 mg tablet (Eliquis) 5 mg PO BID 01/05/25 04/11/25 01/04/25 08:00 History bisacodyl 10 mg rectal suppository 10 mg OK DAILY PRN Constipation 01/05/25 04/11/25 Unknown History dicyclomine 10 mg capsule 10 mg PO BID 01/05/25 04/11/25 01/04/25 History docusate sodium 100 mg capsule 100 mg PO DAILY 01/05/25 04/11/25 Unknown History guaifenesin 100 mg/5 mL oral liquid 300 mg PO Q4H PRN Cough 01/05/25 04/11/25 Unknown History hydrocodone 5 mg-acetaminophen 325 1 tab PO Q6H PRN Pain 01/05/25 04/11/25 01/04/25 History mg tablet ipratropium 0.5 mg-albuterol 3 mg 3 ml inhalation Q6H PRN Shortness 01/05/25 04/11/25 Unknown History (2.5 mg base)/3 mL nebulization Of Breath Or Wheezing soln magnesium citrate 298 ml PO DAILY PRN Constipation 01/05/25 04/11/25 Unknown History magnesium hydroxide 400 mg/5 mL 30 ml PO DAILY PRN Constipation 01/05/25 04/11/25 Unknown History oral suspension (Milk of Magnesia) metoclopramide HCl 10 mg tablet 10 mg PO Q6H PRN Nausea And 01/05/25 04/11/25 01/04/25 History (Reglan) Vomiting omeprazole 20 mg tablet,delayed 20 mg PO DAILY 01/05/25 04/11/25 01/04/25 History release polyethylene glycol 3350 17 17 g PO DAILY 01/05/25 04/11/25 Unknown History gram/dose oral powder scopolamine base 1 mg over 3 days 1 patch transdermal Q3D PRN Nausea 01/05/25 04/11/25 01/02/25 History transdermal patch And Vomiting sodium phosphates 19 gram-7 118 ml OK DAILY PRN Constipation 01/05/25 04/11/25 Unknown History gram/118 mL enema (Fleet Enema) white petrolatum-mineral oil 83 1 applic ophthalmic (eye) DAILY 01/05/25 04/11/25 01/03/25 History %-15 % eye ointment PRN Dry Eyes potassium chloride 20 mEq/15 mL 10 meq (7.5 mL) PO BID #450 mL 02/03/25 04/11/25 Unknown Rx oral liquid dronabinol 2.5 mg capsule 2.5 mg PO BID PRN Pain 04/11/25 04/11/25 Unknown History lansoprazole 30 mg capsule,delayed 30 mg PO BID 04/11/25 04/11/25 Unknown History release levetiracetam 750 mg tablet 750 mg PO BID 04/11/25 04/11/25 Unknown History lorazepam 1 mg tablet 1 mg PO Q6H PRN aggitation 04/11/25 04/11/25 Unknown History midodrine 2.5 mg tablet 2.5 mg PO BID 04/11/25 04/11/25 Unknown History mirtazapine 7.5 mg tablet 7.5 mg PO DAILY 04/11/25 04/11/25 Unknown History Allergies Allergy/AdvReac Type Severity Reaction Status Date / Time morphine Allergy Unknown HIVES Verified 04/10/25 23:15 oxycodone Allergy Unknown HIVES Verified 04/10/25 23:15 Current Medications Generic Name Dose Route Start Last Admin Trade Name Freq PRN Reason Stop Dose Admin Ceftriaxone Sodium 1,000 mg 04/11/25 10:45 04/11/25 13:38 Ceftriaxone 1,000 Mg Sdv IVP 1,000 mg Q24H NATALIE Administration Protocol Docusate Sodium 100 mg 04/11/25 05:00 04/11/25 05:11 Docusate Sodium 100 Mg Capsule PO Not Given DAILY NATALIE Enoxaparin Sodium 40 mg 04/11/25 04:00 04/11/25 04:14 Enoxaparin 40 Mg/0.4 Ml Syringe SUBCUT Not Given Q24H NATALIE Potassium Chloride/Sodium Chloride 20 meq in 1,000 mls @ 100 mls/hr 04/11/25 04:00 04/11/25 04:14 Sodium Chlor 0.9% + Kcl 20 Meq IV 100 mls/hr .Q10H NATALIE Administration Olanzapine 5 mg 04/11/25 04:35 04/11/25 05:09 Olanzapine 5 Mg Odt PO 5 mg BEDTIME NATALIE Administration Ondansetron HCl 4 mg 04/11/25 03:53 04/11/25 05:30 Ondansetron 2 Mg/Ml Sdv 2 Ml IVP 4 mg Q8H PRN Administration vomiting, or N/V if npo Polyethylene Glycol 17 gm 04/11/25 05:00 04/11/25 05:11 Polyethylene Glycol 3350 Pkt 17 Gm PO Not Given DAILY NATALIE PFSH Acute PFSH: Medical History (Updated 04/11/25 @ 13:48 by Hever Adkins MD) Respiratory alkalosis with metabolic alkalosis Colovesical fistula Chronic neck and back pain Chronic nausea Encounter for long-term opiate analgesic use Hypertension Irritable bowel syndrome Spondylolisthesis, cervical region Surgical History (Updated 01/06/25 @ 13:45 by Byron Goodwin MD) Status post colostomy History of cholecystectomy History of lumbar surgery History of carpal tunnel surgery History of knee replacement S/P rotator cuff repair History of hysterectomy Family History Other Cancer Social History (Updated 04/11/25 @ 04:08 by Truong Simental MD) Smoking and tobacco/nicotine status: never used tobacco/nicotine Second hand smoke exposure: No Alcohol intake: never Substance/Drug Use: never Additional social history: I reviewed last DNR documentation by Dr. Goodwin from 01/06/2025 where he had discussed it with the patient and she wanted DNR Household members: spouse Housing: House Vitals/I&O/Wt Last Vital Signs Temp 97.9 F 04/11/25 07:59 Pulse 98 04/11/25 12:00 Resp 15 04/11/25 12:00 BP 125/68 04/11/25 12:00 Pulse Ox 98 04/11/25 12:00 O2 Del Method Room Air 04/11/25 06:51 04/10/25 04/11/25 04/11/25 22:59 06:59 14:59 Intake Total 2300 / 2300 Output Total 300 / 300 Balance 1999 / 1999 Weight last 48 hrs Weight 133 lb 5 oz Weight 131 lb 8 oz Physical Exam Narrative: abdomen nondistended and nontender with no guarding or rebound. No cellulitis around old G tube site. Urinary Catheter Management: Cohen: Cath Placed During This Visit: yes Reason for Continuing Indwelling Catheter: Assist Healing of Perineal & Sacral Wounds- Incontinent Patients Urinary Catheter Date of Insertion: 04/11/25 Data 04/10/25 22:25 04/11/25 00:30 Micro: Microbiology 04/11/25 00:14 Blood Culture - Preliminary Blood SPECIMEN COLLECTED 04/11/25 00:14 Blood Culture - Preliminary Blood SPECIMEN COLLECTED A&P Assessment and plan 1. Gastrostomy tube dysfunction: Plan: There was only 1-2 cc of saline in balloon and easily removed old 16 [place] PEG tube. The smallest PEG tube replacement at this hospital is 18 [place] island[place] and could not even get through the old skin site without discomfort. Heger metal dilators not readily available. Able to insert old tube to 5-6 tube marking and tape to skin. Patient needs tube o gram xray if radiologist available to give gastrograffin via PEG under fluoro. If not will need to get CT scan to verify tube is in stomach prior to using PEG. PDMP PDMP Reviewed: Not Reviewed Coding Level of Care Code 77280 Diagnoses Gastrostomy tube dysfunction K94.23
--- NOTE | 2025-04-11 14:20 | CT_ITS ---
WS: [id number] CT ABDOMEN WITHOUT CONTRAST HISTORY: Confirm peg tube is in the stomach Single phase imaging through the abdomen. Oral contrast has not been provided. Coronal and sagittal reformats are submitted. All CT scans at [facility] use at least one of these dose optimization techniques: automated exposure control; mA and/or kV adjustment per patient size (includes targeted exams where dose is matched to clinical indication); or iterative reconstruction. IV CONTRAST: None. Contrast is present in the kidneys from prior CT evaluation. Oral contrast: No DLP: 297.57 mGy.cm COMPARISON: 04/11/2025 Lower thorax: Lung bases are clear. Heart is normal size. No hiatal hernia. Liver/biliary system: Normal size with no intrahepatic dilatation. Gallbladder: Prior cholecystectomy. Pancreas: Diffuse pancreatic atrophy. Spleen: Normal size spleen. No mass or infarct. Calcification in the splenic hilum measures 7 mm. 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 Adrenal glands: Normal. Right kidney: Normal. Left kidney: Normal. Aorta: Mild atherosclerosis with no aneurysm. Lymphadenopathy: None. Free fluid: None. GI tract: PEG tube is positioned within the stomach. There is a small amount of air along the tract site which is due to the recent insertion along with a small amount of edema in the abdominal wall. No obstruction. Visualized osseous structures: Slight anterior wedging of L1. CT/CT abdomen [facility] [id number] IMPRESSION: 1. PEG tube appears appropriate position on this CT evaluation. 2. Prior cholecystectomy.
--- NOTE | 2025-04-11 14:47 | USCV_ITS ---
Dianelys Reagan Age: 75 Gender: F : 1950 Exam Date: 04/11/2025 20:16 Ordering Phys: Farida Varma NP Technologist: MARYAM [place] [facility] [place]: Sepsis, NSTEMI BP: 102 / 56 HR: 93 Rhythm: Sinus Technical Quality: Technically difficult study MEASUREMENTS (Male / Female) Normal Values 2D ECHO LV Diastolic Diameter PLAX 3.8 cm 4.2 - 5.9 / 3.9 - 5.3 cm IVS Diastolic Thickness 0.7 cm 0.6 - 1.0 / 0.6 - 0.9 cm IVS Systolic Thickness 1.1 cm LVPW Diastolic Thickness 0.9 cm 0.6 - 1.0 / 0.6 - 0.9 cm LVPW Systolic Thickness 1.4 cm LVOT Diameter 1.8 cm LV Ejection Fraction 2D Teich 57.5 % LV Ejection Fraction MOD 4C 63.7 % LV Ejection Fraction MOD 2C 55.4 % LV Ejection Fraction 2C AL 56.8 % LA Diameter 2.1 cm Aorta at Sinotubular Diameter 2.7 cm IVC Diameter 1.2 cm M-MODE LA Ao Ratio MM 1.0 AV Cusp Separation MM 1.3 cm DOPPLER AV Peak Velocity 116.0 cm/s LVOT Peak Velocity 104.0 cm/s AV Area Cont Eq vti 2.0 cm squared AV Area Cont Eq pk 2.3 cm squared MV Peak Velocity 104.0 cm/s MV Area PHT 4.5 cm squared Mitral E to A Ratio 0.8 TV Peak E Velocity 57.0 cm/s FINDINGS Left Ventricle Normal left ventricular size, systolic function and wall thickness with no regional wall motion abnormality. Left ventricular ejection fraction is 63%. Normal left ventricular diastolic function. Right Ventricle Normal right ventricular size and systolic function. RVSP could not be calculated due to incomplete tricuspid regurgitation velocity profile. Right Atrium Normal right atrial size. Left Atrium Normal left atrial size. IA Septum Normal appearance of the interatrial septum. Mitral Valve Normal mitral valve structure. No mitral valve stenosis or regurgitation. Aortic Valve Normal aortic valve structure. No aortic valve stenosis or regurgitation. Tricuspid Valve Normal tricuspid valve structure. No tricuspid valve stenosis or regurgitation. Pulmonic Valve Normal pulmonic valve structure. No pulmonic valve stenosis or regurgitation. Pericardium No pericardial effusion. Aorta Normal diameter of the aortic root and ascending thoracic aorta. IVC Normal IVC diameter. CONCLUSIONS Normal left ventricular size, systolic function and wall thickness with ejection fraction of 63%. Normal right ventricular size and systolic function. No significant valvular abnormalities. Doyle Farooq MD, FACC (Electronically Signed) Final Date: 12 April 2025 14:21 S
--- NOTE | 2025-04-11 14:48 | P.CONIM_ITS ---
<Statement entered by Doyle Farooq MD - 04/11/25 17:38> Patient was evaluated and cared for in conjunction with an advanced practice practitioner. I personally examined the patient and reviewed the chart and all pertinent data including imaging, telemetry, and laboratory results. I discussed the patient in detail with the advanced practice practitioner. Please see their note for complete consult note, testing results and agreed upon plan of care for the patient. Resume anticoagulation for paroxysmal atrial fibrillation if no signs of bleeding, no invasive procedures planned and no contraindications. Providers/Reason For Consult 2 Consulting Physician/Specialty*: Dr. Farooq Reason for Consult*: elevated troponin Requesting Physician: Radha Awad NP Attending Physician: Radha Awad NP Primary Care Provider: DOMINIC Frost History of Present Illness History of Present Illness Dianelys Reagan is a 75 year old female with hx of afib anticoagulated, no other cardiac hx who was found by family members with ostomy leaking on abdomen, weakness, and altered mental status. Patient denies any hx of chest pain or increased shortness of breath on exam. She had elevated lactic at 4.3 dehydrated and possibly septic. Vitals are stable. Her peg tube was also found to be malpositioned. Apparently has been vomiting stool. EKG showed sinus rhythm without acute ST or T wave changes. She was found to be in respiratory alkalosis. Troponins were checked at 19-24-44 with delta negative. They are elevated at baseline. We were consulted due to rule out NSTEMI. Review of Systems 2 Narrative: ROS limited due to patient's mental status Denies chest pain Denies shortness of breath Denies lower extremity swelling Medications/Allergies Home Medications ?Medication ?Instructions ?Recorded ?Confirmed ?Last Taken ?Type ondansetron 4 mg disintegrating See Rx Instructions .R oute .COMPLEX 11/15/24 04/11/25 01/04/25 History tablet acetaminophen 325 mg tablet 650 mg PO QID PRN Fever Or Pain 01/05/25 04/11/25 Unknown History (Tylenol) apixaban 5 mg tablet (Eliquis) 5 mg PO BID 01/05/2501/04/25 08:00 History bisacodyl 10 mg rectal suppository 10 mg MN DAILY PRN Constipation 01/05/25 04/11/25 Unknown History dicyclomine 10 mg capsule 10 mg PO BID 01/05/2501/04/25 History docusate sodium 100 mg capsule 100 mg PO DAILY 5 04/11/25 Unknown History guaifenesin 100 mg/5 mL oral liquid 300 mg PO Q4H PRN Cough 01/05/25 04/11/25 Unknown History hydrocodone 5 mg-acetaminophen 325 1 tab PO Q6H PRN Pa in 01/05/25 04/11/25 01/04/25 History mg tablet ipratropium 0.5 mg-albuterol 3 mg 3 ml inhalation Q6H PRN Shortness 01/05/25 04/11/25 Unknown History (2.5 mg base)/3 mL nebulization Of Breath Or Wheezing soln magnesium citrate 298 ml PO DAILY PRN Constipa tion 01/05/25 04/11/25 Unknown History magnesium hydroxide 400 mg/5 mL 30 ml PO DAILY PRN Con stipation 01/05/25 04/11/25 Unknown History oral suspension (Milk of Magnesia) metoclopramide HCl 10 mg tablet 10 mg PO Q6H PRN Nause a And 01/05/25 04/11/25 01/04/25 History (Reglan) Vomiting omeprazole 20 mg tablet,delayed 20 mg PO DAILY 5 04/11/25 01/04/25 History release polyethylene glycol 3350 17 17 g PO DAILY 01/05/2501/26 Unknown History gram/dose oral powder scopolamine base 1 mg over 3 days 1 patch transdermal Q3D PRN Nausea 01/05/25 04/11/25 01/02/25 History transdermal patch And Vomiting sodium phosphates 19 gram-7 118 ml MN DAILY PRN Consti pation 01/05/25 04/11/25 Unknown History gram/118 mL enema (Fleet Enema) white petrolatum-mineral oil 83 1 applic ophthalmic (e ye) DAILY 01/05/25 04/11/25 01/03/25 History %-15 % eye ointment PRN Dry Eyes potassium chloride 20 mEq/15 mL 10 meq (7.5 mL) PO BID #450 mL 02/03/25 04/11/25 Unknown Rx oral liquid dronabinol 2.5 mg capsule 2.5 mg PO BID PRN Pain 04/1104/11/25 Unknown History lansoprazole 30 mg capsule,delayed 30 mg PO BID 04/11/25 Unknown History release levetiracetam 750 mg tablet 750 mg PO BID 04/11/2501/26 Unknown History lorazepam 1 mg tablet 1 mg PO Q6H PRN aggitation 1 06/12/24 04/11/25 Unknown History midodrine 2.5 mg tablet 2.5 mg PO BID 04/11/2504/11 Unknown History mirtazapine 7.5 mg tablet 7.5 mg PO DAILY 04/11/2501/26 Unknown History Allergies Allergy/AdvReac Type Severity Reaction Status Date / Time morphine Allergy Unknown HIVES Verified 04/10/25 23:15 oxycodone Allergy Unknown HIVES Verified 04/10/25 23:15 Current Medications Generic Name Dose Route Start Last Admin Trade Name Freq PRN Reason Stop Dose Admin Ceftriaxone Sodium 1,000 mg 04/11/25 10:45 04/11/25 13:38 Ceftriaxone 1,000 Mg Sdv IVP 1,000 mg Q24H NATALIE Administration Protocol Docusate Sodium 100 mg 04/11/25 05:00 04/11/25 05:11 Docusate Sodium 100 Mg Capsule PO Not Given DAILY NATALIE Enoxaparin Sodium 40 mg 04/11/25 04:00 04/11/25 04:14 Enoxaparin 40 Mg/0.4 Ml Syringe SUBCUT Not Given Q24H NATALIE Potassium Chloride/Sodium Chloride 20 meq in 1,000 mls @ 100 mls/hr 04/11/25 04:00 04/11/25 04:14 Sodium Chlor 0.9% + Kcl 20 Meq IV 100 mls/hr .Q10H NATALIE Administration Olanzapine 5 mg 04/11/25 04:35 04/11/25 05:09 Olanzapine 5 Mg Odt PO 5 mg BEDTIME NATALIE Administration Ondansetron HCl 4 mg 04/11/25 03:53 04/11/25 05:30 Ondansetron 2 Mg/Ml Sdv 2 Ml IVP 4 mg Q8H PRN Administration vomiting, or N/V if npo Polyethylene Glycol 17 gm 04/11/25 05:00 04/11/25 05:11 Polyethylene Glycol 3350 Pkt 17 Gm PO Not Given DAILY NATALIE PFSH Acute 2 PFSH: Medical History (Updated 04/11/25 @ 13:48 by Hever Adkins MD) Respiratory alkalosis with metabolic alkalosis Colovesical fistula Chronic neck and back pain Chronic nausea Encounter for long-term opiate analgesic use Hypertension Irritable bowel syndrome Spondylolisthesis, cervical region Surgical History (Updated 01/06/25 @ 13:45 by Byron Goodwin MD) Status post colostomy History of cholecystectomy History of lumbar surgery History of carpal tunnel surgery History of knee replacement S/P rotator cuff repair History of hysterectomy Family History Other Cancer Social History (Updated 04/11/25 @ 04:08 by Truong Simental MD) Smoking and tobacco/nicotine status: never used tobacco/nicotine Second hand smoke exposure: No Alcohol intake: never Substance/Drug Use: never Additional social history: I reviewed last DNR documentation by Dr. Goodwin from 01/06/2025 where he had discussed it with the patient and she wanted DNR Household members: spouse Housing: House Vitals/I&O/Wt Last Vital Signs Temp 97.9 F 04/11/25 07:59 Pulse 92 04/11/25 13:25 Resp 16 04/11/25 13:25 BP 125/68 04/11/25 12:00 Pulse Ox 93 04/11/25 13:25 O2 Del Method Room Air 04/11/25 13:25 04/10/25 04/11/25 04/11/25 22:59 06:59 14:59 Intake Total 2300 / 2300 Output Total 300 / 300 Balance 1999 / 1999 Weight last 48 hrs Weight 133 lb 5 oz Weight 131 lb 8 oz Physical Exam 2 Narrative: General: No apparent distress Neck: No carotid bruit bilaterally Respiratory: Normal respiratory effort, clear to auscultation bilaterally throughout all lung nguyễn, no use of accessory muscles Cardio: No JVD, regular rate, regular rhythm, S1 S2 normal, no murmurs, peripheral pulses 2+ radial palpated bilaterally GI: Normal to inspection, nondistended Extremities: No edema Neuro: Alert and oriented x1 Urinary Catheter Management: Cohen: Cath Placed During This Visit: yes Reason for Continuing Indwelling Catheter: Assist Healing of Perineal & Sacral Wounds- Incontinent Patients Urinary Catheter Date of Insertion: 04/11/25 Data 04/10/25 22:25 04/11/25 00:30 Micro: Microbiology 04/11/25 00:14 Blood Culture - Preliminary Blood SPECIMEN COLLECTED 04/11/25 00:14 Blood Culture - Preliminary Blood SPECIMEN COLLECTED A&P Assessment and plan 1. Atrial fibrillation/flutter: 2. Benign hypertension: 3. Elevated troponin: Plan: Elevated troponin- Most likely demand ischemia due to repiratory alkalosis, possible sepsis, patient is chest pain free. Would recommend continue to monitor for further symptoms such as chest pain/pressure. Will get echocardiogram to rule out any wall motion abnormalities/reduced EF. Would recommend restarting oral apixiban as soon as patient is able. Further recommendations after echo. Thank you, Radha, for allowing us to care for this very pleasant 75 year old female. PDMP PDMP Reviewed: Not Reviewed Consult Attestations 2 Medical Necessity Statement: Deferred to primary. Coding Level of Care Code Acute Code [facility] Diagnoses Atrial fibrillation/flutter I48.91; I48.92 Benign hypertension I10 Elevated troponin R79.89
[2025-04-11 16:47] LABS: Magnesium 2.0 mg/dL (1.7-2.3)
[2025-04-12] VITALS (7 sets, daily range): BP systolic 80–120; BP diastolic 42–72; PULSE 59–100; RESP 12–17; TEMP 36.3–36.7; O2SAT 93–100; BMI 24.4
[2025-04-12] MEDS: sodium chlor 0.9% + KCl 20 mEq 20 MEQ/1,000 ML BAG 100 MEQ IV ×3 (01:21→21:03)
--- NOTE | 2025-04-12 02:11 | PC.NURSE ---
Contacted Dr. Simental about patients decrease in blood pressure. He put in orders for Potassium Phosphate 30mmol IV ONCE and NS 1000ml IV ONCE.
[2025-04-12 04:52] LABS: Base Excess VBG 0.7 mmol/L (-3.0-3.0); Blood Gas Allen Test Pos; Blood Gas Operator Identificat BD; Blood Gas Sample Site VEIN; Blood Gas Sample Type Venous; HCO3 VBG 22.5 mmol/L (24-28); PCO2 VBG 27.3 mmHg (41-51); PO2 VBG 56.5 mmHg (25-40); Venous Blood Gas Hematocrit 36.9 % (37-47); pH VBG 7.53 (7.32-7.42)
[2025-04-12 05:49] LABS: Magnesium 1.9 mg/dL (1.7-2.3)
[2025-04-12 05:51] LABS: Anion Gap 16.1 (5-19); Blood Urea Nitrogen 7 mg/dL (8-23); Calcium 8.2 mg/dL (8.5-10.5); Carbon Dioxide 22 mmol/L (22-29); Chloride 108 mmol/L (98-107); Glucose 107 mg/dL (65-115); Osmolality Calculated 294 mOsm/kg (285-295); Potassium 3.1 mmol/L (3.5-5.1); Sodium 143 mmol/L (136-145)
[2025-04-12] MEDS: polyethylene glycol 3350 Pkt 17 gm PO (05:59)
[2025-04-12 07:12] LABS: Hematocrit 31.1 % (36-47); Hemoglobin 10.20 g/dL (11.27-16.99); Mean Corpuscular HGB Conc 32.8 g/dL (30-55); Mean Corpuscular Hemoglobin 28.0 pg (27-33); Mean Corpuscular Volume 85.4 fl (85-98); Nucleated Red Blood Cells % 0 %; Platelet Count 210 10^3/cmm (157-399); Red Blood Count 3.64 10^6/uL (3.85-5.65); White Blood Count 5.25 10^3/uL (3.29-11.43)
--- NOTE | 2025-04-12 07:28 | PM.PN ---
Subjective Subjective: Patient is a very pleasant 75-year-old female seen and examined at bedside on hospital rounds today. Patient laying in bed much more alert and orientated x 2 states she was confused as how she got to the hospital. Explained to the patient that she was very malnourished and arrived not having taken home medications or had sustenance in a while, patient states that she cannot remember missing medications or meals. Patient thought that the president was Gregory Lara, was able to redirect patient and orientate her to facility and most recent holiday. Patient states that she has some mild abdominal discomfort but denies any new symptoms. Patient states that she is able to get up and walk around by herself normally and drives (unsure about how valid this is), will have PT/OT evaluate patient. I reviewed patient's labs much improved VBG, potassium is 3.1, hemoglobin 10.20, normal WBC 5.25. Greatly appreciate dietitian consultation and recommendations. Greatly appreciate case management and coordination of discharge planning with APS and placement if needed. Vitals/I&O/Wt Last Vital Signs Temp 97.8 F 04/12/25 07:25 Pulse 80 04/12/25 07:25 Resp 16 04/12/25 07:25 BP 91/50 04/12/25 07:25 Pulse Ox 98 04/12/25 07:25 O2 Del Method Room Air 04/11/25 19:20 04/11/25 04/12/25 04/12/25 22:59 06:59 14:59 Intake Total 50 / 1050 1985 / 3035 Output Total 0 / 0 575 / 575 Balance 50 / 1050 1410 / 2460 Weight last 48 hrs Weight 68.7 kg Weight 60.47 kg Weight 59.647 kg Physical Exam Const: COMMON NORMALS: no acute distress and alert OTHER: Orientation x 2 HENMT: COMMON NORMALS: normocephalic and Normal external nose present HEAD & SCALP: normocephalic NOSE: Normal external nose present MOUTH: moist mucous membranes abnormal Details: cracked and parched and malodorous breath Eye: COMMON NORMALS: Equal, round and reactive pupils present PUPIL: Yes Equal, round and reactive pupils present Lymph: LYMPHATIC: no lymphadenopathy noted Resp: COMMON NORMALS: normal respiratory effort, No retractions and clear to auscultation bilaterally AUSCULTATION: clear to auscultation bilaterally Cardio: COMMON NORMALS: S1 normal heart sound present and S2 normal heart sound present HEART SOUNDS: S1 normal heart sound present and S2 normal heart sound present GI: INSPECTION: Yes abdominal distension, Yes GI tube present and Yes GI ostomy present Extremity: COMMON NORMALS: no clubbing, cyanosis or edema Neuro: SENSORIUM/ORIENTATION: Yes alert and Yes Orientation impaired Psych: APPEARANCE: Yes disheveled SPEECH: Yes slow MOOD & AFFECT: Yes Blunted affect present Skin: OTHER: Left arm with scabbed wound, surrounding tissue with erythema and 1+ edema. Urinary Catheter Management: Cohen: Cath Placed During This Visit: yes Reason for Continuing Indwelling Catheter: Accurate Measurement of Urinary Output in Critically Ill Patients Urinary Catheter Date of Insertion: 04/11/25 Data 04/12/25 07:00 04/12/25 04:40 Micro: Microbiology 04/11/25 00:14 Blood Culture - Preliminary Blood NEGATIVE TO DATE 04/11/25 00:14 Blood Culture - Preliminary Blood NEGATIVE TO DATE A&P Assessment and plan 1. Respiratory alkalosis with metabolic alkalosis: 2. Acute metabolic encephalopathy: 3. Dehydration: 4. Malnutrition: 5. Chronic kidney disease (CKD): 6. Anemia: 7. Dyslipidemia: Plan: Acute metabolic encephalopathy Metabolic alkalosis Volume depletion Hypokalemia Hypomagnesemia, resolved - Given 2L NS bolus in ER - Lactic acid now 1.8, Potassium 3.1, Magnesium 1.9 - Continue IV fluid hydration with NS KCL - Neuro checks - VBG: pH 7.53, pCO2 27.3, pO2 56.5, HCO3 22.5 Dysphagia, chronic g-tube Dislodged G-Tube, resolved - NPO - Replaced by general surgeon - Repeat CT with G-tube in appropriate position - Greatly appreciate dietitian consultation and recommendations, continue G-tube feedings working towards 35 mL/h with free water flushes every 4 hours, monitoring for refeeding syndrome Dementia - Was very confused/obtunded on admission, seems to be at her baseline today - Continue home medications Generalized Weakness - Greatly appreciate physical therapy and Occupational Therapy evaluation and recommendations Atrial Fibrillation - Has not had home medications in approx 1 week prior to admission - Resume Eliquis - Cardiac Monitoring Malnutrition - Previously on dronabinol to help with appetite - Appreciate dietitian evaluation and recommendations Chronic kidney disease - 0.9--<0.7 - Monitor, renally dose medications Anemia - Hgb 10.20 - Monitor Elevated Troponin Dyslipidemia - Troponin 24.30--<44.23 - Cardiac monitoring - Holding oral medications currently - Greatly appreciate cardiology consultation and management with 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, complicated with c difficle infection - continue supportive care Concern for Neglect - Distant family has called hotline with concerns for neglect - Greatly appreciate case management in coordination of discharge planning, patient will most likely need NH placement - Pending APS referral DVT PPX: Eliquis GI PPX: PPI Code Status: Allow natural PDMP PDMP Reviewed: Last Reviewed 04/11/25 13:46 by Radha Awad, MILITARY PAY CLERK Attestations Medical Necessity Statement*: Patient admitted to the hospital respiratory alkalosis with incomplete compensation metabolic acidosis and complex co-morbidities requiring more than 2 midnight stay. and High Time for a total of 60 minutes, includes reviewing past or interval history, examining/interviewing patient, placing orders, counseling patient/family/other support, updating patient/family/other support, discussing plan of care with staff, communicating with other healthcare providers, documenting encounter and coordinating care Diagnoses Respiratory alkalosis with metabolic alkalosis E87.3 Acute metabolic encephalopathy G93.41 Dehydration E86.0 Malnutrition E46 Chronic kidney disease (CKD) N18.9 Anemia D64.9 Dyslipidemia E78.5
[2025-04-12] MEDS: potassium phosphate (mEq K) 40 MEQ in sodium chloride 0.9% (100 ml) 100 ML 27.25 MEQ IV (07:38)
[2025-04-12] MEDS: hydrocortisone 100 mg/2 mL SDV IVP ×3 (07:38→23:24)
--- NOTE | 2025-04-12 09:18 | PC.CHAP ---
Pastoral Care Encounter/Spiritual Assessment Type of Contact [] Declined client success specialist visit [] Patient/Family/Request visit [] Outpatient visit [] Follow-up visit [] Physician referral [] Code/Alert [] Routine visit [] Staff referral [] Actively dying [x] Patient sleeping [] Family support [] [] Out of room [] Palliative care [] [] Receiving care in room [] Pre-surgical visit [] Trauma [] Long length of stay [] ICU visit [] Other: Relational/Emotional Strength [] Patient feels connected with others/family/visitors/staff [] Distress [] Loneliness/isolation [] Abandonment Spirituality of Patient [] Person of Laura [] Attends Adventist of their Laura [] Believes in Prayer [] Reads Bible or Temple materials [] There are Spiritual issues to be addressed Hopper Attendant Interventions [] Prayer [] Active listening [] Non-anxious presence [] Spiritual/emotional support [] Crisis/trauma care [] Spiritual counseling [] Bereavement support [] Provided bereavement packet [] Provided Bible/devotional materials [] Provided toy/stuffed animal, coloring book to patient or family member [] Provided Communion [] Anointing/[place] [] Salvation [] Completed spiritual assessment [] Other: Impact on Illness or Injury [] Angry [] Fearful [] Anxious [] Often cries [] Exhaustion [] Unable to work [] Unable to attend mu-ism [] Unable to walk/stand [] Unable to read [] Unable to drive [] Unable to eat/drink [] Unable to sleep [] Unable to be with family [] Patient intubated [] Other: Summary Time spent with patient
--- NOTE | 2025-04-12 09:49 | PC.NUTR ---
Received consult for tube feeding recommendations. Consider starting Pt. on Jevity 1.5 @15mls/hr increasing 10mls Q4-8H as tolerated until goal rate of 35mls/hr is reached, with FWF of 100mls Q4H or per Provider discretion.
[2025-04-12] MEDS: cefTRIAXone 1,000 mg SDV 1000 MG IVP (11:35)
[2025-04-12 15:39] LABS: Levetiracetam Immunoassy <2.0 mcg/mL (10.0-40.0)
--- NOTE | 2025-04-12 15:48 | P.PN_ITS ---
<Statement entered by Doyle Farooq MD - 04/12/25 18:11> Patient was evaluated and cared for in conjunction with an advanced practice practitioner. I personally reviewed the echocardiogram. I discussed the patient in detail with the advanced practice practitioner. Please see their note for complete assessment and agreed upon plan of care for the patient. Subjective 2 Subjective: Patient is much more alert today. Echo showed normal EF 63% normal wall thickness with no significant valvular abnormalities or wall motion abnormalities. Vitals/I&O/Wt Last Vital Signs Temp 97.8 F 04/12/25 07:25 Pulse 100 04/12/25 12:00 Resp 15 04/12/25 12:00 BP 107/56 04/12/25 12:00 Pulse Ox 97 04/12/25 12:00 O2 Del Method Room Air 04/12/25 07:52 04/12/25 04/12/25 04/12/25 06:59 14:59 22:59 Intake Total 1985 / 3035 1000 / 1000 Output Total 575 / 575 Balance 1410 / 2460 1000 / 1000 Weight last 48 hrs Weight 151 lb 7.321 oz Weight 133 lb 5 oz Weight 131 lb 8 oz Physical Exam 2 Narrative: General: No apparent distress Neck: No carotid bruit bilaterally Respiratory: Normal respiratory effort, clear to auscultation bilaterally throughout all lung nguyễn, no use of accessory muscles Cardio: No JVD, regular rate, regular rhythm, S1 S2 normal, no murmurs, peripheral pulses 2+ radial palpated bilaterally Extremities: No edema Neuro: Alert and oriented x1 Urinary Catheter Management: Cohen: Cath Placed During This Visit: yes Reason for Continuing Indwelling Catheter: Accurate Measurement of Urinary Output in Critically Ill Patients Urinary Catheter Date of Insertion: 04/11/25 Data 04/12/25 07:00 04/12/25 04:40 Micro: Microbiology 04/11/25 00:14 Blood Culture - Preliminary Blood NEGATIVE TO DATE 04/11/25 00:14 Blood Culture - Preliminary Blood NEGATIVE TO DATE A&P Assessment and plan 1. Paroxysmal A-fib: 2. Benign hypertension: 3. Elevated troponin: Plan: Elevated troponin- Most likely demand ischemia due to repiratory alkalosis, possible sepsis, patient is chest pain free. Would recommend continue to monitor for further symptoms such as chest pain/pressure. At this time, patient's echo was normal. Would recommend restarting apixiban as soon as patient is able. At this time, cardiology will sign off of this patient. As always, if our assistance is needed in the future, please consult us. Thank you for allowing us to take care of this very pleasant patient. PDMP PDMP Reviewed: Not Reviewed Attestations 2 Medical Necessity Statement*: Deferred to primary. Coding Level of Care Code Acute Code for Chg Fwd Diagnoses Paroxysmal A-fib I48.0 Benign hypertension I10 Elevated troponin R79.89
[2025-04-13] VITALS (7 sets, daily range): BP systolic 118–127; BP diastolic 65–72; PULSE 50–98; RESP 16–17; TEMP 36.2–36.6; O2SAT 91–100
[2025-04-13] MEDS: sodium chlor 0.9% + KCl 20 mEq 20 MEQ/1,000 ML BAG 100 MEQ IV (05:43)
[2025-04-13] MEDS: potassium chloride oral liq 20 mEq/15 mL UDC PEG-TUBE (05:44)
[2025-04-13] MEDS: polyethylene glycol 3350 Pkt 17 gm PO (05:45)
[2025-04-13] MEDS: hydrocortisone 100 mg/2 mL SDV IVP ×3 (05:54→17:41)
[2025-04-13 06:34] LABS: Blood Urea Nitrogen 7 mg/dL (8-23); Calcium 8.0 mg/dL (8.5-10.5); Carbon Dioxide 18 mmol/L (22-29); Chloride 106 mmol/L (98-107); Glucose 155 mg/dL (65-115); Osmolality Calculated 285 mOsm/kg (285-295); Sodium 137 mmol/L (136-145)
[2025-04-13 07:00] LABS: Anion Gap 16.5 (5-19); Potassium 3.5 mmol/L (3.5-5.1)
--- NOTE | 2025-04-13 07:15 | PC.NURSE ---
around 2 am pt asked why she is in the hospital and what happened- informed pt from report of what happened. Pt did agreed that son is not taking care of her and grandaudenise is a better rehab care assistant vs the son. pt forgetful with rescent events and some senior care. Pt pleasant, cooperative and calm. She calls approp using call light when needs help.
--- NOTE | 2025-04-13 07:18 | P.PN_ITS ---
Subjective 2 Subjective: Patient seen and examined at bedside on hospital rounds today. Patient sitting up in bed much more alert and interactive today even over yesterday. Patient states that she thought she was going to a couple days ago but feels much better this morning. Continues to have some mild nausea, advancing diet to clear liquids. We will await APS evaluation and recommendations later today. Vital signs remained stable. In review of labs potassium is stable 3.5, creatinine 0.5, and random cortisol level is within normal limits. Greatly appreciate case management coordination and discharge planning wether to SNF or LTC, patient may need level 2 auth to discharge. Vitals/I&O/Wt Last Vital Signs Temp 97.1 F L 04/13/25 04:00 Pulse 68 04/13/25 04:00 Resp 16 04/13/25 04:00 BP 120/71 04/13/25 04:00 Pulse Ox 91 04/13/25 04:00 O2 Del Method Room Air 04/13/25 04:00 04/12/25 04/13/25 04/13/25 22:59 06:59 14:59 Intake Total 945 / 1995.867 866.667 / 2862.534 Output Total 300 / 300 100 / 400 Balance 645 / 1695.867 766.667 / 2462.534 Weight last 48 hrs Weight 69.853 kg Weight 68.492 kg Weight 68.7 kg Physical Exam 2 Const: COMMON NORMALS: no acute distress and alert OTHER: Orientation x 2 HENMT: COMMON NORMALS: normocephalic and Normal external nose present HEAD & SCALP: normocephalic NOSE: Normal external nose present MOUTH: moist mucous membranes abnormal Details: cracked and parched and malodorous breath Eye: COMMON NORMALS: Equal, round and reactive pupils present PUPIL: Yes Equal, round and reactive pupils present Lymph: LYMPHATIC: no lymphadenopathy noted Resp: COMMON NORMALS: normal respiratory effort, No retractions and clear to auscultation bilaterally AUSCULTATION: clear to auscultation bilaterally Cardio: COMMON NORMALS: S1 normal heart sound present and S2 normal heart sound present HEART SOUNDS: S1 normal heart sound present and S2 normal heart sound present GI: INSPECTION: Yes abdominal distension, Yes GI tube present and Yes GI ostomy present Extremity: COMMON NORMALS: no clubbing, cyanosis or edema Neuro: SENSORIUM/ORIENTATION: Yes alert and Yes Orientation impaired Psych: APPEARANCE: Yes disheveled SPEECH: Yes slow MOOD & AFFECT: Yes Blunted affect present Skin: OTHER: Left arm with scabbed wound, surrounding tissue with improving erythema. Urinary Catheter Management: Cohen: Cath Placed During This Visit: yes Reason for Continuing Indwelling Catheter: Accurate Measurement of Urinary Output in Critically Ill Patients Urinary Catheter Date of Insertion: 04/11/25 Data 04/12/25 07:00 04/13/25 05:24 A&P Assessment and plan 1. Respiratory alkalosis with metabolic alkalosis: 2. Acute metabolic encephalopathy: 3. Dehydration: 4. Malnutrition: 5. Chronic kidney disease (CKD): 6. Anemia: 7. Dyslipidemia: Plan: Acute metabolic encephalopathy Metabolic alkalosis Volume depletion, improved Hypokalemia, resolved Hypomagnesemia, resolved - Given 2L NS bolus in ER - Lactic acid 1.8, Potassium 3.5, Magnesium 1.9 - Finished IV fluid hydration with NS KCL - Neuro checks - VBG: pH 7.53, pCO2 27.3, pO2 56.5, HCO3 22.5 Dysphagia, chronic g-tube Dislodged G-Tube, resolved - Advancing diet, clear liquids - Replaced by general surgeon - Repeat CT with G-tube in appropriate position - Greatly appreciate dietitian consultation and recommendations, continue G-tube feedings working towards 35 mL/h with free water flushes every 4 hours, monitoring for refeeding syndrome - Greatly appreicate speech therapy consultation and recommendations, patient does well with swallowing liquids Dementia - Was very confused/obtunded on admission, seems to be at her baseline today - Continue home medications Generalized Weakness - Greatly appreciate physical therapy and Occupational Therapy evaluation and recommendations Atrial Fibrillation - Has not had home medications in approx 1 week prior to admission - Resume Eliquis - Cardiac Monitoring Malnutrition - Previously on dronabinol to help with appetite - Appreciate dietitian evaluation and recommendations Chronic kidney disease - 0.9--<0.7--<0.5 - Monitor, renally dose medications Anemia - Hgb 10.20 - Monitor Elevated Troponin Dyslipidemia - Troponin 24.30--<44.23 - Cardiac monitoring - Greatly appreciate cardiology consultation and management with 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, complicated with c difficle infection - continue supportive care Concern for Neglect - Distant family has called hotline with concerns for neglect - Greatly appreciate case management in coordination of discharge planning, patient will most likely need NH placement - APS to evaluate and leave recommendations later today DVT PPX: Mansoor LYNN PPX: PPI Code Status: Allow natural PDMP PDMP Reviewed: Last Reviewed 04/11/25 13:46 by Radha Awad, GEOSPATIAL TECHNOLOGIST Attestations 2 Medical Necessity Statement*: Patient admitted to the hospital respiratory alkalosis with incomplete compensation metabolic acidosis and complex co-morbidities requiring more than 2 midnight stay, given concern for neglect and APS involvement may necessitate a longer hospitalization. Coding Level of Care Code 03566 Diagnoses Respiratory alkalosis with metabolic alkalosis E87.3 Acute metabolic encephalopathy G93.41 Dehydration E86.0 Malnutrition E46 Chronic kidney disease (CKD) N18.9 Anemia D64.9 Dyslipidemia E78.5
[2025-04-13] MEDS: cefTRIAXone 1,000 mg SDV 1000 MG IVP (12:03)
--- NOTE | 2025-04-13 22:39 | PC.NURSE ---
from 7pm to now 10:40, pt been in and out of her bed, anxious, restless. pt disoriented, confused, keeps asking whats going on w her and why is she here. Pt needed constant reminders. Yaredq wants to use BSC. pt begs staff to stay in the room. almost every 15-20 min pt gets out of her bed , impulsive, pulls her PEG tube tight. Charge aware, staff taking turns putting her back to bed. notified . Admin Ativan PO , pt co nauseous- Marinol adm to help with her nausea.
[2025-04-13] MEDS: haloperidol inj 5 mg/mL INJ 1 mL 1 MG IVP (23:53)
[2025-04-14] VITALS (8 sets, daily range): BP systolic 82–132; BP diastolic 46–78; PULSE 54–92; RESP 16–17; TEMP 36.2–37; O2SAT 93–100
[2025-04-14 04:49] LABS: Base Excess VBG 1.5 mmol/L (-3.0-3.0); Blood Gas Sample Site Not specified; Blood Gas Sample Type Venous; HCO3 VBG 24.1 mmol/L (24-28); PCO2 VBG 30.7 mmHg (41-51); PO2 VBG 52.4 mmHg (25-40); Venous Blood Gas Hematocrit 35.5 % (37-47); pH VBG 7.50 (7.32-7.42)
[2025-04-14 05:00] LABS: Hematocrit 34.5 % (36-47); Hemoglobin 10.40 g/dL (11.27-16.99); Mean Corpuscular HGB Conc 30.1 g/dL (30-55); Mean Corpuscular Hemoglobin 27.4 pg (27-33); Mean Corpuscular Volume 91.0 fl (85-98); Nucleated Red Blood Cells % 0 %; Platelet Count 273 10^3/cmm (157-399); Red Blood Count 3.79 10^6/uL (3.85-5.65); White Blood Count 5.08 10^3/uL (3.29-11.43)
[2025-04-14 05:17] LABS: Alanine Aminotransferase 7 U/L (0-33); Albumin Level 3.0 g/dL (3.5-5.2); Alkaline Phosphatase 67 U/L (35-105); Anion Gap 16.5 (5-19); Aspartate Amino Transferase 16 U/L (0-32); Blood Urea Nitrogen 8 mg/dL (8-23); Calcium 8.6 mg/dL (8.5-10.5); Carbon Dioxide 21 mmol/L (22-29); Chloride 104 mmol/L (98-107); Globulin 2.7 g/dL (1.3-4.6); Glucose 139 mg/dL (65-115); Magnesium 1.6 mg/dL (1.7-2.3); Osmolality Calculated 287 mOsm/kg (285-295); Potassium 3.5 mmol/L (3.5-5.1); Sodium 138 mmol/L (136-145); Total Protein 5.7 g/dL (6.6-8.7)
[2025-04-14] MEDS: potassium chloride oral liq 20 mEq/15 mL UDC PEG-TUBE (05:24)
[2025-04-14] MEDS: polyethylene glycol 3350 Pkt 17 gm PO (06:00)
[2025-04-14] MEDS: magnesium sulfate premix 2 GM/50 ML PIGGYBACK IV (07:49)
--- NOTE | 2025-04-14 09:55 | P.PN_ITS ---
Subjective 2 Subjective: Patient is a very pleasant 75-year-old female seen and examined at bedside on hospital rounds today. Patient sitting up in bed with continued confusion, thinks that she has water dripping on her from the ceiling. Patient is orientated x 2, vital signs are stable, labs reviewed with magnesium 1.6 replenishing with 2 g IV magnesium. VBG with pH of 7.50 and pCO2 30.7. In speaking with case management, APS had interviewed patient yesterday and had gone and inspected patient's home and interviewed family members, statement from them that they will be pursuing charges. This hinders a safe discharge with this patient. Working on long-term care placement, but need DPOA input and recommendations. Patient has pending application for Medicaid, family has yet to submit financial information to complete this application. Greatly appreciate case management and coordination of discharge planning and working with patient's family members. Will continue current interventions inpatient in the meantime. Vitals/I&O/Wt Last Vital Signs Temp 97.8 F 04/14/25 07:16 Pulse 70 04/14/25 08:35 Resp 16 04/14/25 08:35 BP 116/71 04/14/25 07:16 Pulse Ox 94 04/14/25 08:35 O2 Del Method Room Air 04/14/25 08:35 04/13/25 04/14/25 04/14/25 22:59 06:59 14:59 Intake Total 120 / 1046.667 690 / 1736.667 50 / 50 Output Total 400 / 400 400 / 800 Balance -280 / 646.667 290 / 936.667 50 / 50 Weight last 48 hrs Weight 71.668 kg Weight 69.853 kg Weight 68.492 kg Physical Exam 2 Const: COMMON NORMALS: no acute distress and alert OTHER: Orientation x 2 HENMT: COMMON NORMALS: normocephalic and Normal external nose present HEAD & SCALP: normocephalic NOSE: Normal external nose present MOUTH: moist mucous membranes abnormal Details: cracked and parched and malodorous breath Eye: COMMON NORMALS: Equal, round and reactive pupils present PUPIL: Yes Equal, round and reactive pupils present Lymph: LYMPHATIC: no lymphadenopathy noted Resp: COMMON NORMALS: normal respiratory effort, No retractions and clear to auscultation bilaterally AUSCULTATION: clear to auscultation bilaterally Cardio: COMMON NORMALS: S1 normal heart sound present and S2 normal heart sound present HEART SOUNDS: S1 normal heart sound present and S2 normal heart sound present GI: INSPECTION: Yes abdominal distension, Yes GI tube present and Yes GI ostomy present Extremity: COMMON NORMALS: no clubbing, cyanosis or edema Neuro: SENSORIUM/ORIENTATION: Yes alert and Yes Orientation impaired Psych: APPEARANCE: Yes disheveled SPEECH: Yes slow MOOD & AFFECT: Yes Blunted affect present Skin: OTHER: Left arm with scabbed wound, surrounding tissue with improving erythema. Urinary Catheter Management: Cohen: Cath Placed During This Visit: yes, but has since been removed by the nurse Reason for Continuing Indwelling Catheter: Not indwelling catheter Urinary Catheter Date of Insertion: 04/11/25 Date Urinary Catheter Removed: 04/13/25 Time Urinary Catheter Discontinued: 09:45 Data 04/14/25 04:39 04/14/25 04:39 A&P Assessment and plan 1. Respiratory alkalosis with metabolic alkalosis: 2. Acute metabolic encephalopathy: 3. Dehydration: 4. Malnutrition: 5. Chronic kidney disease (CKD): 6. Anemia: 7. Dyslipidemia: Plan: Acute metabolic encephalopathy Metabolic alkalosis Volume depletion, improved Hypokalemia, resolved Hypomagnesemia - Given 2L NS bolus in ER - Lactic acid 1.8, Potassium 3.5, Magnesium 1.6 - Finished IV fluid hydration with NS KCL - Neuro checks - VBG: pH 7.53, pCO2 27.3, pO2 56.5, HCO3 22.5 - Replenish Magnesiu 2g today Dysphagia, chronic g-tube Dislodged G-Tube, resolved Ravalli grade D esophagitis - Advancing diet, full liquids - Replaced by general surgeon - Repeated CT with G-tube in appropriate position - Greatly appreciate dietitian consultation and recommendations, continue G-tube feedings working towards 35 mL/h with free water flushes every 4 hours, monitoring for refeeding syndrome - Greatly appreciate speech therapy consultation and recommendations, patient does well with swallowing liquids but coughs with solids. Dementia Mood disorder - Was very confused/obtunded on admission, seems to be at her baseline today - Continue home medications Mirtazapine and Zyprexa Generalized Weakness - Greatly appreciate physical therapy and Occupational Therapy evaluation and recommendations Atrial Fibrillation - Has not had home medications in approx 1 week prior to admission - Continue Eliquis - Cardiac Monitoring Hx of seizure - Per medical records from [facility] hospitalization patient had seizure with abnormal EEG - Placed on Keppra 750mg BID - No known outpatient follow-up, will need neurology f/u when discharged - No documented seizures since admission Hx of DVT right lower extremity - Continues Eliquis 5mg BID Malnutrition - Previously on dronabinol to help with appetite - Appreciate dietitian evaluation and recommendations Chronic kidney disease - 0.9--<0.7--<0.5 - Monitor, renally dose medications Anemia - Stable Hgb 10.40 - Monitor Elevated Troponin Dyslipidemia - Troponin 24.30--<44.23 - Cardiac monitoring - Greatly appreciate cardiology consultation and management with 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, complicated with c difficle infection - continue supportive care Concern for Neglect - Distant family has called hotline with concerns for neglect - Greatly appreciate case management in coordination of discharge planning, patient will most likely need NH placement - APS evaluated and states pending charges with family - Concern for safe discharge DVT PPX: Eliquis GI PPX: PPI Code Status: Allow natural PDMP PDMP Reviewed: Last Reviewed 04/11/25 13:46 by Radha Awad, INBOUND SALES MANAGER Attestations 2 Medical Necessity Statement*: Will continue inpatient management with encephalopathy, cellulitis and co- morbidities requiring more than 2 midnight stay, given concern for neglect and APS involvement may necessitate a longer hospitalization. Coding Level of Care Code 11947 Diagnoses Respiratory alkalosis with metabolic alkalosis E87.3 Acute metabolic encephalopathy G93.41 Dehydration E86.0 Malnutrition E46 Chronic kidney disease (CKD) N18.9 Anemia D64.9 Dyslipidemia E78.5
[2025-04-14] MEDS: cefTRIAXone 1,000 mg SDV 1000 MG IVP (11:00)
--- NOTE | 2025-04-14 14:45 | PC.SOCIAL ---
IMM Update pg 2 of IMM updated and reviewed w/ patients son. Copy placed in chart and copy provided to the patient.
--- NOTE | 2025-04-14 17:49 | PC.OT ---
OT treatment attempted with pt sleeping. Pt awoken and pt states no. Will attempt again at later time.
[2025-04-15] VITALS (7 sets, daily range): BP systolic 82–128; BP diastolic 44–86; PULSE 56–73; RESP 14–16; TEMP 36.3–36.7; O2SAT 96–99; BMI 24.5
[2025-04-15] MEDS: magnesium sulfate premix 2 GM/50 ML PIGGYBACK IV (01:25)
[2025-04-15] MEDS: potassium phosphate (mEq K) 40 MEQ in sodium chloride 0.9% (100 ml) 100 ML 25 MEQ IV ×2 (02:36→09:24)
[2025-04-15 04:44] LABS: Hematocrit 33.8 % (36-47); Hemoglobin 11.00 g/dL (11.27-16.99); Mean Corpuscular HGB Conc 32.5 g/dL (30-55); Mean Corpuscular Hemoglobin 27.8 pg (27-33); Mean Corpuscular Volume 85.6 fl (85-98); Nucleated Red Blood Cells % 0 %; Platelet Count 259 10^3/cmm (157-399); Red Blood Count 3.95 10^6/uL (3.85-5.65); White Blood Count 3.97 10^3/uL (3.29-11.43)
[2025-04-15] MEDS: polyethylene glycol 3350 Pkt 17 gm PO (05:08)
[2025-04-15] MEDS: potassium chloride oral liq 20 mEq/15 mL UDC PEG-TUBE ×2 (05:08→16:52)
[2025-04-15 05:09] LABS: Alanine Aminotransferase 9 U/L (0-33); Albumin Level 2.7 g/dL (3.5-5.2); Alkaline Phosphatase 62 U/L (35-105); Anion Gap 9.2 (5-19); Aspartate Amino Transferase 23 U/L (0-32); Blood Urea Nitrogen 7 mg/dL (8-23); Calcium 8.3 mg/dL (8.5-10.5); Carbon Dioxide 27 mmol/L (22-29); Chloride 109 mmol/L (98-107); Globulin 2.2 g/dL (1.3-4.6); Glucose 94 mg/dL (65-115); Osmolality Calculated 292 mOsm/kg (285-295); Potassium 3.2 mmol/L (3.5-5.1); Sodium 142 mmol/L (136-145); Total Protein 4.9 g/dL (6.6-8.7)
--- NOTE | 2025-04-15 07:19 | P.PN_ITS ---
Subjective 2 Subjective: Patient is a pleasant 75-year-old female who was seen and examined at bedside on hospital rounds today. Patient laying in bed continued confusion, baseline orientation x 2. Patient states that she feels tired but has no new concerns or complaints. Working with case management on discharge planning, pending authorization for long-term care. In review of labs patient potassium 3.2, we will continue to replenish. Vital signs are stable, mildly hypotensive with blood pressure 92/58. Will continue to closely monitor and manage inpatient. Vitals/I&O/Wt Last Vital Signs Temp 97.4 F L 04/15/25 04:00 Pulse 64 04/15/25 04:00 Resp 16 04/15/25 04:00 BP 92/48 04/15/25 04:00 Pulse Ox 96 04/15/25 04:00 O2 Del Method Room Air 04/15/25 04:00 04/14/25 04/15/25 04/15/25 22:59 06:59 14:59 Intake Total 150 / 200 400 / 600 Output Total 250 / 250 200 / 450 Balance -100 / -50 200 / 150 Weight last 48 hrs Weight 68.81 kg Weight 71.668 kg Physical Exam 2 Const: COMMON NORMALS: no acute distress and alert OTHER: Orientation x 2 HENMT: COMMON NORMALS: normocephalic and Normal external nose present HEAD & SCALP: normocephalic NOSE: Normal external nose present MOUTH: moist mucous membranes abnormal Details: cracked and parched and malodorous breath Eye: COMMON NORMALS: Equal, round and reactive pupils present PUPIL: Yes Equal, round and reactive pupils present Lymph: LYMPHATIC: no lymphadenopathy noted Resp: COMMON NORMALS: normal respiratory effort, No retractions and clear to auscultation bilaterally AUSCULTATION: clear to auscultation bilaterally Cardio: COMMON NORMALS: S1 normal heart sound present and S2 normal heart sound present HEART SOUNDS: S1 normal heart sound present and S2 normal heart sound present GI: INSPECTION: Yes abdominal distension, Yes GI tube present and Yes GI ostomy present Extremity: COMMON NORMALS: no clubbing, cyanosis or edema Neuro: SENSORIUM/ORIENTATION: Yes alert and Yes Orientation impaired Psych: APPEARANCE: Yes disheveled SPEECH: Yes slow MOOD & AFFECT: Yes Blunted affect present Skin: OTHER: Left arm with scabbed wound, surrounding tissue with improving erythema. Urinary Catheter Management: Cohen: Cath Placed During This Visit: yes, but has since been removed by the nurse Reason for Continuing Indwelling Catheter: Not indwelling catheter Urinary Catheter Date of Insertion: 04/11/25 Date Urinary Catheter Removed: 04/13/25 Time Urinary Catheter Discontinued: 09:45 Data 04/15/25 04:05 04/15/25 04:05 A&P Assessment and plan 1. Respiratory alkalosis with metabolic alkalosis: 2. Acute metabolic encephalopathy: 3. Dehydration: 4. Malnutrition: 5. Chronic kidney disease (CKD): 6. Anemia: 7. Dyslipidemia: Plan: Acute metabolic encephalopathy Metabolic alkalosis Volume depletion, improved Hypokalemia Hypomagnesemia, resolved - Given 2L NS bolus in ER - Lactic acid 1.8, Potassium 3.2, Magnesium 2.5 - Finished IV fluid hydration with NS KCL - Neuro checks - VBG: pH 7.53, pCO2 27.3, pO2 56.5, HCO3 22.5 - Replenish Magnesiu 2g today Dysphagia, chronic g-tube Dislodged G-Tube, resolved [place] grade D esophagitis - Advancing diet, full liquids - Replaced by general surgeon - Repeated CT with G-tube in appropriate position - Greatly appreciate dietitian consultation and recommendations, continue G-tube feedings working towards 35 mL/h with free water flushes every 4 hours, monitoring for refeeding syndrome - Greatly appreciate speech therapy consultation and recommendations, patient does well with swallowing liquids but coughs with solids. Dementia Mood disorder - Was very confused/obtunded on admission, seems to be at her baseline today - Continue home medications Mirtazapine and Zyprexa Generalized Weakness - Greatly appreciate physical therapy and Occupational Therapy evaluation and recommendations Atrial Fibrillation - Has not had home medications in approx 1 week prior to admission - Continue Eliquis - Cardiac Monitoring Hx of seizure - Per medical records from [facility] patient had seizure with abnormal EEG - Placed on Keppra 750mg BID - No known outpatient follow-up, will need neurology f/u when discharged - No documented seizures since admission Hx of DVT right lower extremity - Continues Eliquis 5mg BID Malnutrition - Previously on dronabinol to help with appetite - Appreciate dietitian evaluation and recommendations Chronic kidney disease - 0.9--<0.7--<0.5--<0.5 - Monitor, renally dose medications Anemia - Stable Hgb 11.00 - Monitor Elevated Troponin Dyslipidemia - Troponin 24.30--<44.23 - Cardiac monitoring - Greatly appreciate cardiology consultation and management with 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, complicated with c difficle infection - continue supportive care Concern for Neglect - Distant family has called hotline with concerns for neglect - Greatly appreciate case management in coordination of discharge planning, patient will most likely need NH placement - APS evaluated and states pending charges with family - Concern for safe discharge DVT PPX: Eliquis GI PPX: PPI Code Status: Allow natural PDMP PDMP Reviewed: Last Reviewed 04/11/25 13:46 by Radha Awad, MANAGER PORTABLE Attestations 2 Medical Necessity Statement*: Will continue inpatient management with encephalopathy, cellulitis and co- morbidities requiring more than 2 midnight stay, given concern for neglect and APS involvement may necessitate a longer hospitalization. Coding Level of Care Code 87880 Diagnoses Respiratory alkalosis with metabolic alkalosis E87.3 Acute metabolic encephalopathy G93.41 Dehydration E86.0 Malnutrition E46 Chronic kidney disease (CKD) N18.9 Anemia D64.9 Dyslipidemia E78.5
[2025-04-15 08:05] LABS: Magnesium 2.5 mg/dL (1.7-2.3)
[2025-04-15] MEDS: cefTRIAXone 1,000 mg SDV 1000 MG IVP (11:48)
[2025-04-16] VITALS: BP 102/62; PULSE 71; RESP 14; TEMP 36.7; O2SAT 97
[2025-04-16 04:00] VITALS: BP 104/60; PULSE 69; RESP 15; TEMP 36.6; O2SAT 97
[2025-04-16 04:13] VITALS: BMI 23.7
[2025-04-16 05:06] LABS: Hematocrit 34.6 % (36-47); Hemoglobin 11.40 g/dL (11.27-16.99); Mean Corpuscular HGB Conc 32.9 g/dL (30-55); Mean Corpuscular Hemoglobin 28.2 pg (27-33); Mean Corpuscular Volume 85.6 fl (85-98); Nucleated Red Blood Cells % 0 %; Platelet Count 269 10^3/cmm (157-399); Red Blood Count 4.04 10^6/uL (3.85-5.65); White Blood Count 4.77 10^3/uL (3.29-11.43)
[2025-04-16 05:31] LABS: Alanine Aminotransferase 9 U/L (0-33); Albumin Level 2.7 g/dL (3.5-5.2); Alkaline Phosphatase 63 U/L (35-105); Anion Gap 11.0 (5-19); Aspartate Amino Transferase 19 U/L (0-32); Blood Urea Nitrogen 5 mg/dL (8-23); Calcium 8.0 mg/dL (8.5-10.5); Carbon Dioxide 30 mmol/L (22-29); Chloride 107 mmol/L (98-107); Globulin 2.1 g/dL (1.3-4.6); Glucose 87 mg/dL (65-115); Osmolality Calculated 297 mOsm/kg (285-295); Potassium 3.0 mmol/L (3.5-5.1); Sodium 145 mmol/L (136-145); Total Protein 4.8 g/dL (6.6-8.7)
[2025-04-16 05:32] LABS: Magnesium 2.0 mg/dL (1.7-2.3)
[2025-04-16] MEDS: potassium chloride oral liq 20 mEq/15 mL UDC PEG-TUBE (06:02)
[2025-04-16] MEDS: polyethylene glycol 3350 Pkt 17 gm PO (06:04)
[2025-04-16 06:59] VITALS: BP 119/73; PULSE 73; RESP 15; TEMP 36.7; O2SAT 96
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
[2025-04-16] MEDS: potassium chloride oral liq 20 mEq/15 mL UDC 40 MEQ PEG-TUBE ×2 (08:31→11:53)
[2025-04-16 11:26] VITALS: BP 111/66; PULSE 84; RESP 16; TEMP 36.4; O2SAT 98
[2025-04-16] MEDS: cefTRIAXone 1,000 mg SDV 1000 MG IVP (11:53)
[2025-04-16 15:55] VITALS: BP 111/73; PULSE 80; RESP 17; TEMP 36.6; O2SAT 99
[2025-04-16 20:00] VITALS: BP 119/74; PULSE 77; RESP 16; TEMP 36.3; O2SAT 98
[2025-04-17] VITALS (8 sets, daily range): BP systolic 90–138; BP diastolic 50–81; PULSE 68–94; RESP 15–18; TEMP 36.4–36.6; O2SAT 96–100; BMI 23.5
[2025-04-17] MEDS: polyethylene glycol 3350 Pkt 17 gm PO (04:12)
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
[2025-04-17 09:08] LABS: Anion Gap 10.3 (5-19); Blood Urea Nitrogen 4 mg/dL (8-23); Calcium 8.2 mg/dL (8.5-10.5); Carbon Dioxide 30 mmol/L (22-29); Chloride 104 mmol/L (98-107); Glucose 143 mg/dL (65-115); Osmolality Calculated 289 mOsm/kg (285-295); Potassium 4.3 mmol/L (3.5-5.1); Sodium 140 mmol/L (136-145)
[2025-04-17] MEDS: cefTRIAXone 1,000 mg SDV 1000 MG IVP (10:58)
--- NOTE | 2025-04-17 14:54 | PC.SOCIAL ---
*IMM Updated* Patient received copy of Important Message from Medicare, Copy Initialed, dated and placed in chart.
[2025-04-18] VITALS (7 sets, daily range): BP systolic 96–142; BP diastolic 59–87; PULSE 89–107; RESP 16–18; TEMP 36.3–36.8; O2SAT 97–100
[2025-04-18 05:37] LABS: Hematocrit 41.0 % (36-47); Hemoglobin 12.90 g/dL (11.27-16.99); Mean Corpuscular HGB Conc 31.5 g/dL (30-55); Mean Corpuscular Hemoglobin 27.3 pg (27-33); Mean Corpuscular Volume 86.9 fl (85-98); Nucleated Red Blood Cells % 0 %; Platelet Count 288 10^3/cmm (157-399); Red Blood Count 4.72 10^6/uL (3.85-5.65); White Blood Count 6.72 10^3/uL (3.29-11.43)
[2025-04-18 06:04] LABS: Alanine Aminotransferase 10 U/L (0-33); Albumin Level 3.1 g/dL (3.5-5.2); Alkaline Phosphatase 84 U/L (35-105); Anion Gap 13.7 (5-19); Aspartate Amino Transferase 16 U/L (0-32); Blood Urea Nitrogen 5 mg/dL (8-23); Calcium 8.4 mg/dL (8.5-10.5); Carbon Dioxide 29 mmol/L (22-29); Chloride 101 mmol/L (98-107); Globulin 2.4 g/dL (1.3-4.6); Glucose 133 mg/dL (65-115); Magnesium 1.9 mg/dL (1.7-2.3); Osmolality Calculated 289 mOsm/kg (285-295); Potassium 3.7 mmol/L (3.5-5.1); Sodium 140 mmol/L (136-145); Total Protein 5.5 g/dL (6.6-8.7)
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
[2025-04-18] MEDS: cefTRIAXone 1,000 mg SDV 1000 MG IVP (10:48)
[2025-04-19 04:00] VITALS: BP 124/68; PULSE 91; RESP 18; TEMP 36.3; O2SAT 92
[2025-04-19] MEDS: polyethylene glycol 3350 Pkt 17 gm PO (05:09)
[2025-04-19 05:15] LABS: Hematocrit 38.8 % (36-47); Hemoglobin 12.30 g/dL (11.27-16.99); Mean Corpuscular HGB Conc 31.7 g/dL (30-55); Mean Corpuscular Hemoglobin 27.9 pg (27-33); Mean Corpuscular Volume 88.0 fl (85-98); Nucleated Red Blood Cells % 0 %; Platelet Count 255 10^3/cmm (157-399); Red Blood Count 4.41 10^6/uL (3.85-5.65); White Blood Count 4.02 10^3/uL (3.29-11.43)
--- NOTE | 2025-04-19 05:47 | PC.NURSE ---
two different order for Protonix by two different physicians, Dr. Simental notified an order to DC BID order received
[2025-04-19 05:57] LABS: Alanine Aminotransferase 9 U/L (0-33); Albumin Level 3.0 g/dL (3.5-5.2); Alkaline Phosphatase 76 U/L (35-105); Aspartate Amino Transferase 16 U/L (0-32); Blood Urea Nitrogen 7 mg/dL (8-23); Calcium 8.6 mg/dL (8.5-10.5); Carbon Dioxide 31 mmol/L (22-29); Chloride 105 mmol/L (98-107); Globulin 2.1 g/dL (1.3-4.6); Glucose 115 mg/dL (65-115); Osmolality Calculated 299 mOsm/kg (285-295); Sodium 145 mmol/L (136-145); Total Protein 5.1 g/dL (6.6-8.7)
[2025-04-19 06:05] LABS: Anion Gap 13.3 (5-19); Potassium 4.3 mmol/L (3.5-5.1)
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
[2025-04-19 07:56] VITALS: BP 95/61; PULSE 80; RESP 18; TEMP 36.8; O2SAT 95
--- NOTE | 2025-04-19 08:49 | PC.SOCIAL ---
IMM Update Pg. 2 of IMM updated, copy provided at bedside. Initialed, dated and timed copy in chart.
[2025-04-19 09:01] VITALS: PULSE 90; RESP 16; O2SAT 97
[2025-04-19] MEDS: cefTRIAXone 1,000 mg SDV 1000 MG IVP (10:23)
[2025-04-19 11:58] VITALS: BP 98/54; PULSE 72; RESP 16; TEMP 36.3; O2SAT 99
--- NOTE | 2025-04-19 13:21 | PC.OT ---
OT TREATMENT IS HELD TODAY DUE TO SCHEDULED PATIENT D/C
[2025-04-19 14:25] VITALS: BP 98/54; PULSE 72; RESP 16; TEMP 36.3; O2SAT 99
== END 2025-04-19 14:29 | disposition intermediate care facility (04) | DRG 640 ==
LOC: ER 04-11 02:56 → ER IP 04-11 03:03 → CSU 04-11 05:34 → MEDSURG 04-12 17:39
PROVIDERS: Admitting Provider Internal Medicine; Emergency Provider Emergency Medicine; PCP Registered Nurse; Visit Provider Registered Nurse
DX: E87.4 Mixed disorder of acid-base balance (principal); G93.41 Metabolic encephalopathy; K94.23 Gastrostomy malfunction; E46 Unspecified protein-calorie malnutrition; L03.114 Cellulitis of left upper limb; F03.93 Unspecified dementia, unspecified severity, with mood disturbance; E78.5 Hyperlipidemia, unspecified; D64.9 Anemia, unspecified; I12.9 Hypertensive chronic kidney disease with stage 1 through stage 4 chronic kidney disease, or unspecified chronic kidney disease; N18.9 Chronic kidney disease, unspecified; Z68.23 Body mass index [BMI] 23.0-23.9, adult; E86.0 Dehydration; E87.6 Hypokalemia; E83.42 Hypomagnesemia; R13.10 Dysphagia, unspecified; K20.80 Other esophagitis without bleeding; I48.91 Unspecified atrial fibrillation; Z86.718 Personal history of other venous thrombosis and embolism; Z79.01 Long term (current) use of anticoagulants; Z86.69 Personal history of other diseases of the nervous system and sense organs; Z90.49 Acquired absence of other specified parts of digestive tract; Z96.659 Presence of unspecified artificial knee joint; Z66 Do not resuscitate; I45.10 Unspecified right bundle-branch block; G89.29 Other chronic pain; M54.2 Cervicalgia; M54.9 Dorsalgia, unspecified
CPT/HCPCS: 36415; 36416; 36600; 51702; 70470; 71260; 74022; 74150; 74177; 80048; 80051; 80053; 80177; 81001; 82330; 82533; 82550; 82803; 82805; 82962; 83605; 83735; 84100; 84443; 84484; 85025; 86140; 87040; 87637; 92507; 92523; 92526; 92610; 93005; 93306; 93970; 96361; 96365; 96372; 96375; 96376; 97110; 97116; 97162; 97167; 97530; 97535; 99285; J0696; J1630; J1650; J1720; J2020; J2185; J2405; J3475; J3480; J7030; J8499; J9999; Q0167